=== PATIENT | female | born 1960 | race Caucasian/White ===

== ENCOUNTER → 2017-11-05 | Outpatient (CLI) | payer OTHER ==
[~2017-11-05] MED LIST: ABILIFY10 MG PO; ALLOPURINOL300 MG PO; AMBIEN10 MG PO; AZITHROMYCIN250 MG PO; CEFDINIR300 MG PO; CHANTIX0.5 MG PO; CRESTOR20 MG PO; GABAPENTIN300 MG PO; KLONOPIN1 MG PO; LEVAQUIN500 MG PO; LEVEMIR100 UNIT/1 SQ; LIDODERM700 MG TOP; LISINOPRIL5 MG PO; METFORMIN HCL1000 MG PO; METOPROLOL SUCC25 MG PO; NORCO 10MG-325MG1 EA PO; NOVOLOG MI100 UNIT/1; OMEPRAZOLE40 MG PO; PLAVIX75 MG PO; PROAIR HFA INH8.5 GM INH; PROZAC40 MG PO; SEROQUEL100 MG PO; SINGULAIR10 MG PO; SOMA350 MG PO; TRADJENTA5 MG PO; WELLBUTRIN100 MG PO; XANAX XR2 MG PO; ZANAFLEX4 MG PO; ZOFRAN ODT4 MG PO; ZOLOFT100 MG PO; invokana PO
--- NOTE | 2017-11-07 09:00 | Diagnostic Imaging Report ---
MRI of the right shoulder without contrast. History: Shoulder pain. Fall. Decreased range of motion. Pain not responding to conservative management. Comparison: Radiographs 08/18/2017 Technique: Coronal PD FS, sagital PD FS, and axial PD and PD FS. Findings: Rotator cuff: There is rotator cuff tendinosis with mid substance and articular sided partial tearing involving the anterior fibers of the supraspinatus and infraspinatus tendons at the humeral insertion site. This is best seen on sagittal series 5 image 5 and coronal series 3 image 12 through 14. Additionally, there is subscapularis tendinosis. The teres minor tendon is intact. There is mild supraspinatus and infraspinatus muscle atrophy. There are reactive changes in the superior humerus. Osseous acromion complex: There is a type II acromion with mild lateral downsloping. There is moderate degenerative arthrosis at the acromioclavicular joint with undersurface spurring and narrowing of the supraspinatus tendon outlet. There is mild subacromial/subdeltoid bursitis. Glenohumeral joint: There is degeneration and fraying of the labrum. The articular cartilage surfaces are intact. The humeral head is well-seated in the glenoid fossa. There is an effusion/synovitis in the rotator interval and subcoracoid space. Biceps tendon: There is intra-articular biceps tendinosis with fraying at the biceps anchor. Other findings: Negative for muscle denervation or osseous fracture. Impression: Rotator cuff tendinosis with mid substance and articular sided partial tearing involving the anterior fibers of the supraspinatus and infraspinatus tendons at the humeral insertion site. Moderate degenerative arthrosis at the acromioclavicular joint with undersurface spurring and narrowing of the supraspinatus tendon outlet. There is mild subacromial/subdeltoid bursitis. Signed by: Dr. Luca Escalona M.D. on 11/07/2017 8:57 AM
== END ==
LOC: MRI 13:17
PROVIDERS: ATTEND Family Medicine
DX: M25.511 Pain in right shoulder (principal)

== ENCOUNTER 2017-11-06 12:14 | Emergency (ER) | payer OTHER ==
[~2017-11-06] VITALS: Ht 162.6 cm; Wt 84.4 kg
--- NOTE | 2017-11-06 13:26 | Diagnostic Imaging Report ---
History: Fall, pain, dizziness. Comparison studies:CT head 09/29/17 Technique: Axial images were obtained from the brain and cervical spine. Coronal and sagittal images reconstructed from the axial data. Intravenous contrast: None Findings: Head CT: Scalp/skull: No abnormalities. No fractures, blastic or lytic lesions. Brain sulci: Appropriate for age. Ventricles: Normal in size and configuration. No hydrocephalus. Extra-axial spaces: Right frontal arachnoid cyst abutting the superior frontal gyrus. No fluid collections. Parenchyma: No abnormal densities. No masses, hemorrhage, acute or chronic cortical vascular insults. Sellar/suprasellar region: No abnormalities. Craniocervical junction: Patent foramen magnum. No Chiari one malformation. Cervical spine CT: Fractures: None. Soft tissues: No gross abnormalities. Atlantoaxial articulation: Intact. Alignment: Straightening of the normal lordosis. No scoliosis. Cervicomedullary junction: No abnormalities. Patent foramen magnum. Vertebrae: No infection or neoplasm. Degenerative changes: Mild disc degeneration at C6-7. Patent canal and foramina. Incidental findings: None. Impression: Head CT: 1. No acute abnormality. Cervical spine CT: 1. No acute abnormalities. 2. Cannot exclude ligament, spinal cord and or vascular abnormalities on the basis of this examination. Signed by: DR Anmol Clinton M.D. on 11/06/2017 1:23 PM
--- NOTE | 2017-11-06 17:34 | Diagnostic Imaging Report ---
Left SHOULDER LEFT COMPLETE - 2 views HISTORY: Pain. Fall COMPARISON: None available. FINDINGS: Bones: No acute displaced fracture. Osseous alignment is within normal limits. Joints: The joint spaces are well-maintained. Questionable joint effusion. Soft tissues: The soft tissues appear unremarkable. IMPRESSION: No acute radiographic abnormality. Questionable joint effusion. Signed by: Dr. Raymon Reeder M.D. on 11/06/2017 5:30 PM
== END 2017-11-06 18:28 | disposition home or self-care (01) ==
LOC: ER 12:21
DX: M54.2 Cervicalgia (principal); S16.1XXA Strain of muscle, fascia and tendon at neck level, initial encounter; S40.012A Contusion of left shoulder, initial encounter; W01.0XXA Fall on same level from slipping, tripping and stumbling without subsequent striking against object, initial encounter; Y92.008 Other place in unspecified non-institutional (private) residence as the place of occurrence of the external cause
CPT/HCPCS: 70450; 72125; 99284

== ENCOUNTER 2018-02-03 10:36 | Observation (INO) | payer OTHER ==
[~2018-02-03] VITALS: Ht 162.6 cm; Wt 94.8 kg
--- OUTSIDE RECORDS SUMMARY | 2018-02-03 10:39 | XMS REPORT ---
Author Author [facility] Address Unknown Phone Unavailable Care Team Providers Care Refrigeration Insulator Name Role Phone WALE HALE Unavailable Unavailable CORRIE DEVRIES Unavailable Unavailable MARYLU VALDOVINOS Unavailable Unavailable BOUCHERLOLA Sesay Unavailable Unavailable ZOMPA, EDROBINSON Unavailable Unavailable Problems This patient has no known problems. Allergies, Adverse Reactions, Alerts This patient has no known allergies or adverse reactions. Medications This patient has no known medications. Results Test Description Test Time Test Comments Text Results Atomic Results Result Comments SHOULDER LEFT COMPLETE [facility] [address] [address] Patient Name: STEPHANIE CAMERON MR #: [id number] : 1960 Age/Sex: 57/F Req #: [id number] Adm Physician: Ordered by: DIMITRI MCFARLAND Report #: [id number] Location: ER Room/Bed: _ Procedure: [id number] DX/SHOULDER LEFT COMPLETE Exam Date: 11/06/17 Exam Time: 1640 REPORT STATUS: Signed Left SHOULDER LEFT COMPLETE - 2 views HISTORY: Pain. Fall COMPARISON: None available. FINDINGS: Bones: No acute displaced fracture. Osseous alignment is within normal limits. Joints: The joint spaces are well-maintained. Questionable joint effusion. Soft tissues: The soft tissues appear unremarkable. IMPRESSION: No acute radiographic abnormality. Questionable joint effusion. Signed by: Dr. Raymon Miranda M.D. on 11/06/2017 5:30 PM Dictated By: RAYMON MIRANDA MD 29 Transcribed By: SCOTT on 11/06/171729 COPY TO: DIMITRI MCFARLAND CT CERVICAL SPINE WO [place] [address] Patient Name: STEPHANIE CAMERON MR #: [id number] : 1960 Age/Sex: 57/F Req #: [id number] Adm Physician: Ordered by: WALE HALE MD Report #: [id number] Location: ER Room/Bed: Procedure: [id number] CT/CT CERVICAL SPINE WO Exam Date: 11/06/17 Exam Time: 1240 REPORT STATUS: Signed History: Fall, pain, dizziness. Comparison studies:CT head 09/29/17 Technique: Axial images were obtained from the brain and cervical spine. Coronal and sagittal images reconstructed from the axial data. Intravenous contrast: None Findings: Head CT: Scalp/skull: No abnormalities. No fractures, blastic or lytic lesions. Brain sulci: Appropriate for age. Ventricles: Normal in size and configuration. No hydrocephalus. Extra-axial spaces: Right frontal arachnoid cyst abutting the superior frontal gyrus. No fluid collections. Parenchyma: No abnormal densities. No masses, hemorrhage , acute or chronic cortical vascular insults. Sellar/suprasellar region: No abnormalities. Craniocervical junction: Patent foramen magnum. No Chiari one malformation. Cervical spine CT: Fractures: None. Soft tissues: No gross abnormalities. Atlantoaxial articulation: Intact. Alignment: Straightening of the normal lordosis. No scoliosis. Cervicomedullary junction : No abnormalities. Patent foramen magnum. Vertebrae: No infection or neoplasm. Degenerative changes: Mild disc degeneration at C6-7. Patent canal and foramina. Incidental findings: None. Impression: Head CT: 1. No acute abnormality. Cervical spine CT: 1. No acute abnormalities. 2. Cannot exclude ligament, spinal cord and or vascular abnormalities on the basis of this examination. Signed by: DR Anmol Clinton M.D. on 11/06/2017 1:23 PM Dictated By: ANMOL GARZA MD 1323 Transcribed By: SCOTT on 11/06/17 1323 COPY TO: WALE HALE MD CT BRAIN WO [place] [address] Patient Name: STEPHANIE CAMERON MR #: [id number] : 1960 Age/Sex: 57/F Req # : [id number] Adm Physician: Ordered by: WALE HALE MD Report #: [id number] Location: ER Room/Bed: Procedure: [id number] CT/CT BRAIN WO Exam Date: 11/06/17 Exam Time: 1240 REPORT STATUS: Signed History: Fall, pain, dizziness. Comparison studies:CT head 09/29/17 Technique: Axial images were obtained from the brain and cervical spine. Coronal and sagittal images reconstructed from the axial data. Intravenous contrast: None Findings: Head CT: Scalp/skull: No abnormalities. No fractures, blastic or lytic lesions. Brain sulci: Appropriate for age. Ventricles: Normal in size and configuration. No hydrocephalus. Extra-axial spaces: Right frontal arachnoid cyst abutting the superior frontal gyrus. No fluid collections. Parenchyma: No abnormal densities. No masses, hemorrhage , acute or chronic cortical vascular insults. Sellar/suprasellar region: No abnormalities. Craniocervical junction: Patent foramen magnum. No Chiari one malformation. Cervical spine CT: Fractures: None. Soft tissues: No gross abnormalities. Atlantoaxial articulation: Intact. Alignment: Straightening of the normal lordosis. No scoliosis. Cervicomedullary junction : No abnormalities. Patent foramen magnum. Vertebrae: No infection or neoplasm. Degenerative changes: Mild disc degeneration at C6-7. Patent canal and foramina. Incidental findings: None. Impression: Head CT: 1. No acute abnormality. Cervical spine CT: 1. No acute abnormalities. 2. Cannot exclude ligament, spinal cord and or vascular abnormalities on the basis of this examination. Signed by: DR Anmol Clinton M.D. on 11/06/2017 1:23 PM Dictated By: ANMOL GARZA MD 1323 Transcribed By: SCOTT on 11/06/17 1323 COPY TO: WALE HALE MD MRI SHOULDER RIGHT WO [place] [address] Patient Name: STEPHANIE CAMERON MR #: [id number] : 1960 Age/Sex: 57/F Req #: [id number] Adm Physician: Ordered by: CORRIE DEVRIES DO Report #: [id number] Location: MRI Room/Bed: Procedure: [id number] MRI/MRI SHOULDER RIGHT WO Exam Date: 11/05/17 Exam Time: 1335 REPORT STATUS: Signed MRI of the right shoulder without contrast. History: Shoulder pain. Fall. Decreased range of motion. Pain not responding to conservative management. Comparison: Radiographs 08/18/2017 Technique: Coronal PD FS, sagital PD FS , and axial PD and PD FS. Findings: Rotator cuff: There is rotator cuff tendinosis with mid substance and articular sided partial tearing involving the anterior fibers of the supraspinatus and infraspinatus tendons at the humeral insertion site. This is best seen on sagittal series 5 image 5 and coronal series 3 image 12 through 14. Additionally, there is subscapularis tendinosis. The teres minor tendon is intact. There is mild supraspinatus and infraspinatus muscle atrophy. There are reactive changes in the superior humerus. Osseous acromion complex: There is a type II acromion with mild lateral downsloping. There is moderate degenerative arthrosis at the acromioclavicular joint with undersurface spurring and narrowing of the supraspinatus tendon outlet. There is mild subacromial/subdeltoid bursitis. Glenohumeral joint: There is degeneration and fraying of the labrum. The articular cartilage surfaces are intact. The humeral head is well-seated in the glenoid fossa. There is an effusion/synovitis in the rotator interval and subcoracoid space. Biceps tendon: There is intra-articular biceps tendinosis with fraying at the biceps anchor. Other findings: Negative for muscle denervation or osseous fracture. Impression: Rotator cuff tendinosis with mid substance and articular sided partial tearing involving the anterior fibers of the supraspinatus and infraspinatus tendons at the humeral insertion site. Moderate degenerative arthrosis at the acromioclavicular joint with undersurface spurring and narrowing of the supraspinatus tendon outlet. There is mild subacromial/subdeltoid bursitis. Signed by: Dr. Maite Escalona M.D. on 11/07/2017 8:57 AM Dictated By: MAITE ESCALONA MD, MD 6 COPY TO: CORRIE DEVRIES DO CT BRAIN [place] [address] Patient Name: STEPHANIE CAMERON MR #: [id number] : 1960 Age/Sex: 57/F Req # : [id number] [facility] Physician: Ordered by: MARYLU VALDOVINOS MD Report # : [id number] Location: Room/Bed: Procedure: [id number] CT/CT BRAIN WO Exam Date: 09/29/17 Exam Time: 1999 REPORT STATUS: Signed EXAMINATION: Head CT without contrast. HISTORY:Altered mental status. COMPARISON:Multiple prior studies, most recent CT brain from 07/22/2017. TECHNIQUE: Multidetector axial images were obtained from the foramen magnum to the vertex without contrast. The images were reconstructed using brain and bone algorithms. Thin section brain images were reformatted into coronal and sagittal planes. Intravenous contrast: None IMAGE QUALITY: Acceptable. FINDINGS: Skull/scalp: Unchanged small right frontal scalp lipoma. Parenchyma: No abnormal density. No acute hemorrhage, mass or acute major vascular territorial infarct. Arteries: No density suggestive of thrombosis. Dural sinuses: No abnormal density suggestive of thrombosis. Ventricles: No hydrocephalus or displacement. Extra-axial spaces: Unchanged small right superior frontal and left middle frontal convexity arachnoid cyst with regional mass effect. Brain volume: Unchanged mild predominantly bilateral frontal cerebral volume loss. Craniocervical junction: No mass, Chiari malformation, or basilar invagination. Sella: No mass. Paranasal/mastoid sinuses: Imaged portions unremarkable. IMPRESSION: No acute intracranial abnormality. No change since CT brain from 07/22/2017. Signed by: Dr. Chioma Zeng M.D. on 09/29/2017 8:36 PM Dictated By: CHIOMA ZENG MD 35 Transcribed By: SCOTT on 09/29/172035 COPY TO: MARYLU VALDOVINOS MD CHEST SINGLE (PORTABLE) [place] [id number] [place] [address] Patient Name: STEPHANIE CAMERON MR #: [id number] : 1960 Age/Sex: 57/F Req #: [id number] Adm Physician: Ordered by: MARYLU VALDOVINOS MD Report #: [id number] Location: ER Room/Bed: ___ Procedure: [id number] DX/CHEST SINGLE (PORTABLE) Exam Date: 09/29/17 Exam Time: 1999 REPORT STATUS: Signed EXAM: CHEST SINGLE (PORTABLE), AP DATE: 09/29/2017 7:31 PM Time stamp on Exam: 7: 44 PM INDICATION: Altered mental status COMPARISON: 07/22/2017 FINDINGS : See impression. IMPRESSION: 1. Cardiomediastinal silhouette is normal. No infiltrates or nodules are seen. There is no pneumothorax or effusion. 2. Regional osseous structures are unremarkable. Signed by: Dr. Teo Easley DO on 09/29/2017 8:59 PM Dictated By: TEO EASLEY DO 58 Transcribed By : SCOTT on 09/29/172058 COPY TO: MARYLU VALDOVINOS MD CHEST 2 VIEWS [place] [address] Patient Name: STEPHANIE CAMERON MR #: [id number] : 1960 Age/Sex: 57/F Req # : [id number] Adm Physician: LOLA BOUCHER MD Ordered by: LOLA BOUCHER MD Report #: [id number] Location: MED/SURG3 Room/Bed: 296- Procedure: [id number] DX/CHEST 2 VIEWS Exam Date: 08/18/17 Exam Time: 1200 REPORT STATUS: Signed PROCEDURE: Frontal and lateral views of the chest. COMPARISON: 08/16/17. INDICATIONS: PNEUMONIA FINDINGS: Lines/tubes: None. Lungs: Well-inflated. No evidence of mass or infiltrate. Pulmonary vascular markings are normal. Pleura: There is no pleural effusion or pneumothorax. Heart and mediastinum: The heart and the mediastinum are normal. Bones: Unremarkable for age. IMPRESSION: No acute cardiopulmonary disease. Dictated by: Jono Mohan M.D. on 2016 at 12:28 Electronically approved by: Jono Mohan M.D. on 08/18 at 12:28 Dictated By: JONO MOHAN MD Transcribed By : OSCAR on 08/18/171227 COPY TO: LOLA BOUCHER MD [facility] RIGHT [place] [address] Patient Name: STEPHANIE CAMERON MR #: [id number] : 1960 Age/Sex: 57/F Req #: [id number] Adm Physician: LOLA BOUCHER MD Ordered by: LOLA BOUCHER MD Report #: [id number] Location: MED/SURG3 Room/Bed: 296 Procedure: [id number] DX/SHOULDER RIGHT COMPLETE Exam Date: 08/18/17 Exam Time: 1200 REPORT STATUS: Signed PROCEDURE: X-RAY RIGHT SHOULDER, COMPLETE COMPARISON: None. INDICATIONS: FALL, RIGHT SHOULDER PAIN FINDINGS: BONES: Normal mineralization. No acute fracture or dislocation. Joint spaces are within normal limits. SOFT TISSUES: Negative. OTHER: Visualized portion of the chest is normal.. CONCLUSION: No acute traumatic pathology. Dictated by: Jono Mohan M.D. on 2016 at 12:33 Electronically approved by: Jono Mohan M.D. on 08/18 at 12:33 Dictated By: JONO MOHAN MD 1233 Transcribed By : OSCAR on 08/18/17 1233 COPY TO: LOLA BOUCHER MD CHEST 2 VIEWS [place] [address] Patient Name: STEPHANIE CAMERON MR #: [id number] : 1960 Age/Sex: 57/F Req # : [id number] [facility] Physician: Ordered by: LUZ SALAS Report #: [id number] Location: ER Room/Bed: Procedure: [id number] DX/CHEST 2 VIEWS Exam Date: 08/16/17 Exam Time: 1545 REPORT STATUS: Signed PROCEDURE: Frontal and lateral views of the chest. COMPARISON: Chest x-ray 07/22/2017. INDICATIONS: SHORTNESS OF BREATH, COUGH, LEUKOCYTOSIS FINDINGS: Lines/tubes: None. Lungs: Lungs are well-inflated. Mild right basilar atelectasis. Questionable left infrahilar airspace opacity. Pleura: There is no pleural effusion or pneumothorax. Heart and mediastinum: The heart and the mediastinum are normal. Bones: No acute bony abnormality. IMPRESSION: 1. Right basilar atelectasis. 2. Questionable left infrahilar airspace opacity, concerning for pneumonia. Dictated by: Raymon Miranda M.D. on 08/16/2017 at 16:18 Electronically approved by: Raymon Miranda M.D. on 08/16/2017 at 16:18 Dictated By: RAYMON MIRANDA MD 17 Transcribed By: OSCAR on 08/16/171617 COPY TO: LUZ SALAS CT BRAIN WO [place] [address] Patient Name: STEPHANIE CAMERON MR #: [id number] : 1960 Age/Sex: 57/F Req # : [id number] Adm Physician: Ordered by: JACIEL BECKER MD Report #: [id number] Location: ER Room/Bed: Procedure: [id number] CT/CT BRAIN WO Exam Date: 07/22/17 Exam Time: 1842 REPORT STATUS: Signed EXAMINATION: Head CT without contrast. HISTORY:Dizziness, lightheaded and weakness. COMPARISON:CT brain from 02/14 and MRI brain from 02/21/2017. TECHNIQUE: Multidetector axial images were obtained from the foramen magnum to the vertex without contrast. The images were reconstructed using brain and bone algorithms. Thin section brain images were reformatted into coronal and sagittal planes. Intravenous contrast: None IMAGE QUALITY: Acceptable. FINDINGS: Skull/scalp: Unchanged small right frontal scalp lipoma. Parenchyma: No abnormal density. No acute hemorrhage, mass or acute major vascular territorial infarct. Arteries: No density suggestive of thrombosis. Dural sinuses: No abnormal density suggestive of thrombosis. Ventricles: No hydrocephalus or displacement. Extra-axial spaces: Unchanged small right superior frontal and left middle frontal convexity arachnoid cyst with regional mass effect. Brain volume: Normal for age. Craniocervical junction: No mass, Chiari malformation, or basilar invagination. Sella: No mass. Paranasal/mastoid sinuses: Mild partial opacification of the right mastoid tip. Incidental finding: Unchanged curvilinear hyperdensity along the posterior aspect of the posterior chamber of left globe may represent chronic vitreous hemorrhage. IMPRESSION: No acute intracranial abnormality. No change since MRI brain from 02/21/2017. Signed by: Dr. Chioma Zeng M.D. on 07/22/2017 7:50 PM Dictated By: CHIOMA ZENG MD 49 Transcribed By: SCOTT on 07/22/171949 COPY TO: JACIEL BECKER MD CHEST SINGLE (PORTABLE) [place] [address] Patient Name: STEPHANIE CAMERON MR #: [id number] : 1960 Age/Sex: 57/F Req #: [id number] Adm Physician: Ordered by: JACIEL BECKER MD Report #: [id number] Location: ER Room/Bed: Procedure: [id number] DX/CHEST SINGLE (PORTABLE) Exam Date: 07/22/17 Exam Time: 1848 REPORT STATUS: Signed EXAMINATION: CHEST SINGLE (PORTABLE) INDICATION: COMPARISON: Chest radiograph from 02/14/2017 FINDINGS: AP view TUBES and LINES: None. LUNGS: Lungs are well inflated. Lungs are clear. There is no evidence of pneumonia or pulmonary edema. PLEURA: No pleural effusion or pneumothorax. HEART AND MEDIASTINUM: The cardiomediastinal silhouette is unremarkable. BONES AND SOFT TISSUES: No acute osseous lesion. Soft tissues are unremarkable. UPPER ABDOMEN: No free air under the diaphragm. IMPRESSION: No acute thoracic abnormality. Signed by: Dr. Susie Zepeda M.D. on 07/22/2017 8:04 PM Dictated By: SUSIE ZEPEDA MD 03 Transcribed By: SCOTT on 07/22/172003 COPY TO: JACIEL BECKER MD
[2018-02-03] MEDS ORDERED: NALOXONE HCL INJ 0.4 MG/ML AMP ONE (10:58)
[2018-02-03] MEDS ORDERED: NALOXONE HCL INJ 0.4 MG/ML AMP IV ONE (11:00)
[2018-02-03 11:01] LABS: BASOPHILS # (AUTO) 0.1 (0.0-0.1); BASOPHILS % 0.6 % (0.0-1.0); EOSINOPHILS # (AUTO) 0.2 (0.0-0.4); EOSINOPHILS % 1.8 % (0.0-6.0); HEMATOCRIT 33.4 % (34.2-44.1); HEMOGLOBIN 10.1 g/dL (12.0-16.0); LYMPHOCYTES # (AUTO) 4.4 (1.0-3.2); LYMPHOCYTES % 34.4 % (18.0-39.1); MEAN CORPUSCULAR HGB CONC 30.2 g/dL (31-35); MEAN CORPUSCULAR VOLUME 82.7 fL (81-99); MONOCYTES # (AUTO) 0.7 (0.2-0.8); MONOCYTES % 5.2 % (4.4-11.3); NEUTROPHILS # (AUTO) 7.3 (2.1-6.9); NEUTROPHILS % 57.3 % (38.7-80.0); PLATELET COUNT 401 x10e3/uL (140-360); RED BLOOD COUNT 4.04 x10e6/uL (3.6-5.1); RED CELL DISTRIBUTION WIDTH 16.9 % (11.7-14.4)
[2018-02-03 11:10] LABS: INR 1.07; PROTHROMBIN TIME 13.1 seconds (11.9-14.5)
[2018-02-03 11:11] LABS: PARTIAL THROMBOPLASTIN TIME 31.1 seconds (23.8-35.5)
[2018-02-03 11:20] LABS: ALANINE AMINOTRANSFERASE 12 IU/L (0-55); ALBUMIN 3.3 g/dL (3.5-5.0); ALBUMIN/GLOBULIN RATIO 0.9 (0.8-2.0); ALKALINE PHOSPHATASE 143 IU/L (40-150); ANION GAP 11.1 mmol/L (8-16); BLOOD UREA NITROGEN 18 mg/dL (7-26); BUN/CREATININE RATIO 19 (6-25); CALCIUM 9.5 mg/dL (8.4-10.2); CARBON DIOXIDE 31 mmol/L (22-29); CHLORIDE 102 mmol/L (98-107); CREATINE KINASE 270 IU/L (29-168); CREATININE, SERUM 0.94 mg/dL (0.57-1.11); EST GLOMERULAR FILTRATION RATE > 60 ML/MIN (60-); MAGNESIUM 1.7 MG/DL (1.3-2.1); POTASSIUM 4.1 mmol/L (3.5-5.1); SODIUM 140 mmol/L (136-145)
[2018-02-03 11:25] LABS: GLUCOSE 52 mg/dL (74-118)
--- NOTE | 2018-02-03 11:37 | Diagnostic Imaging Report ---
PROCEDURE: A single AP view of the chest. COMPARISON: None. INDICATIONS: LOW BLOOD SUGAR FINDINGS: Lines/tubes: None. Lungs: The lungs are well inflated. Minimal right basal atelectatic changes. There is no evidence of pneumonia or pulmonary edema. Pleura: There is no pleural effusion or pneumothorax. Heart and mediastinum: The heart and the mediastinum are unremarkable. Bones: No acute bony abnormality. IMPRESSION: 1. Minimal right basal atelectatic changes. No consolidation or effusion. Henrry Mendoza M.D. Dictated by: Henrry Mendoza M.D. on 02/03/2018 at 11:37 Electronically approved by: Henrry Mendoza M.D. on 02/03/2018 at 11:37
[2018-02-03] MEDS ORDERED: ONDANSETRON HCL INJ 2 MG/ML VIAL IV PRN (13:15)
[2018-02-03] MEDS ORDERED: DEXTROSE 50% SYRINGE 50 ML IV PRN (13:15)
[2018-02-03] MEDS: SODIUM CHLORIDE 0.9% 1000ML 1,000 ML IV SCH ×2 (14:45→21:14)
[2018-02-03 15:00] VITALS: BP 139/77
[2018-02-03 15:20] VITALS: BP 148/78
[2018-02-03] MEDS: INSULIN REGULAR, HUMAN 100 UNIT/1 ML 3ML VIAL SQ SCH ×2 (16:30→22:00)
[2018-02-03 20:00] VITALS: BP 135/60
[2018-02-04] VITALS: BP 144/66
[2018-02-04 04:00] VITALS: BP 147/67
--- NOTE | 2018-02-04 06:47 | Diagnostic Imaging Report ---
EXAMINATION: CHEST SINGLE (PORTABLE) INDICATION: Weakness, follow-up. COMPARISON: 02/03/2018 FINDINGS: TUBES and LINES: None. LUNGS: Lungs are not well inflated. There are bibasilar atelectasis. There is no evidence of pneumonia or pulmonary edema. PLEURA: No pleural effusion or pneumothorax. HEART AND MEDIASTINUM: The cardiomediastinal silhouette is unremarkable. BONES AND SOFT TISSUES: No acute osseous lesion. Soft tissues are unremarkable. UPPER ABDOMEN: No free air under the diaphragm. IMPRESSION: No acute thoracic abnormality. Signed by: Dr. Candido Rodriguez M.D. on 02/04/2018 6:44 AM
[2018-02-04 07:21] LABS: BASOPHILS # (AUTO) 0.1 (0.0-0.1); BASOPHILS % 0.6 % (0.0-1.0); EOSINOPHILS # (AUTO) 0.2 (0.0-0.4); EOSINOPHILS % 1.8 % (0.0-6.0); HEMATOCRIT 32.4 % (34.2-44.1); HEMOGLOBIN 9.8 g/dL (12.0-16.0); LYMPHOCYTES # (AUTO) 2.7 (1.0-3.2); LYMPHOCYTES % 22.1 % (18.0-39.1); MEAN CORPUSCULAR HEMOGLOBIN 24.8 pg (28-32); MEAN CORPUSCULAR HGB CONC 30.2 g/dL (31-35); MONOCYTES # (AUTO) 0.6 (0.2-0.8); MONOCYTES % 4.8 % (4.4-11.3); NEUTROPHILS # (AUTO) 8.5 (2.1-6.9); NEUTROPHILS % 70.1 % (38.7-80.0); PLATELET COUNT 422 x10e3/uL (140-360); RED BLOOD COUNT 3.95 x10e6/uL (3.6-5.1); RED CELL DISTRIBUTION WIDTH 16.7 % (11.7-14.4)
[2018-02-04 07:51] LABS: ALANINE AMINOTRANSFERASE 11 IU/L (0-55); ALBUMIN 3.1 g/dL (3.5-5.0); ALBUMIN/GLOBULIN RATIO 0.9 (0.8-2.0); ALKALINE PHOSPHATASE 143 IU/L (40-150); ANION GAP 9.4 mmol/L (8-16); BLOOD UREA NITROGEN 14 mg/dL (7-26); BUN/CREATININE RATIO 19 (6-25); CALCIUM 9.3 mg/dL (8.4-10.2); CARBON DIOXIDE 30 mmol/L (22-29); CHLORIDE 102 mmol/L (98-107); CREATININE, SERUM 0.74 mg/dL (0.57-1.11); EST GLOMERULAR FILTRATION RATE > 60 ML/MIN (60-); GLUCOSE 245 mg/dL (74-118); POTASSIUM 4.4 mmol/L (3.5-5.1); SODIUM 137 mmol/L (136-145)
[2018-02-04 08:00] VITALS: BP 152/69
[2018-02-04] MEDS: SODIUM CHLORIDE 0.9% 1000ML 1,000 ML IV SCH (08:30)
[2018-02-04] MEDS: INSULIN REGULAR, HUMAN 100 UNIT/1 ML 3ML VIAL SQ SCH ×2 (09:07→13:59)
[2018-02-04] MEDS ORDERED: AZITHROMYCIN250 MG PO (13:37)
--- NOTE | 2018-02-04 14:24 | Discharge Summary ---
ADMITTING DIAGNOSES 1. Altered mentation. 2. Hypoglycemia. 3. Type-2 diabetes mellitus. 4. Tobacco abuse. 5. Chronic obstructive pulmonary disease. 6. Bipolar disorder. 7. Hypertensive heart disease. DISCHARGE DIAGNOSES 1. Altered mentation secondary to hypoglycemia, resolved. 2. Right-sided pneumonia. 3. Tobacco abuse. 4. Hypertensive heart disease. 5. Type-2 diabetes mellitus. HOSPITAL COURSE: This is a 57-year-old white woman who was initially admitted to [facility] with diagnosis of altered mentation. During this hospitalization, it was discovered her altered mentation was secondary to hypoglycemia. The patient's Levemir insulin was held during this hospitalization, and her hypoglycemia resolved. The patient was also diagnosed with right-sided pneumonia during this hospitalization. The patient is a heavy tobacco smoker, and she was counseled on tobacco sensation, but stated she was not interested in smoking cessation. The patient's hospitalization was unremarkable. The patient's condition on discharge was stable. DISCHARGE MEDICATIONS 1. Levemir insulin 30 units subcutaneous once a day. 2. Azithromycin orally for 5 days. 3. ProAir inhaler 2 puffs q.i.d. p.r.n. shortness of breath or wheezing. 4. Cameron 10 per 325 one q.i.d. p.r.n. pain. 5. Abilify 10 mg daily. 6. Allopurinol 300 mg daily. 7. Clonazepam 1 mg b.i.d. p.r.n. anxiety. 8. Clopidogrel 75 mg daily. 9. Fluoxetine 60 mg daily. 10. Gabapentin 300 mg daily. 11. Lidoderm 5% patch, 1 patch applied to affected area daily. 12. Metoprolol succinate 25 mg daily. 13. Singulair 10 mg daily. 14. Omeprazole 40 mg daily. 15. Seroquel 100 mg nightly. FOLLOWUP INSTRUCTIONS: The patient will be discharged back to her assisted living facility, namely [facility]. Tobacco cessation was highly recommended, but the patient states she is not interested in tobacco cessation. The patient was told to decrease her Levemir insulin from 32 units twice a day to 30 units once daily. The patient will follow up with her primary care physician, namely Dr. Dupree, within 1 to 2 weeks. LUIZA MOREAU MD Job#: [id number]
== END 2018-02-04 16:56 ==
LOC: ER 10:36 → EDBEDREQSVC 13:27 → IMCU 14:12
DX: E11.649 Type 2 diabetes mellitus with hypoglycemia without coma (principal); J18.9 Pneumonia, unspecified organism; Z79.4 Long term (current) use of insulin; G89.4 Chronic pain syndrome; F31.9 Bipolar disorder, unspecified; F17.210 Nicotine dependence, cigarettes, uncomplicated; J44.9 Chronic obstructive pulmonary disease, unspecified; I11.9 Hypertensive heart disease without heart failure; R55 Syncope and collapse
CPT/HCPCS: 36415 ×2; 71045 ×2; 80053 ×2; 82550; 82553; 82948 ×2; 83735; 84484; 85025 ×2; 85610; 85730; 93005 ×2; 99285; G0378 ×2; J2310; J7030 ×2

== ENCOUNTER 2018-02-11 21:03 | Emergency (ER) | payer OTHER ==
[~2018-02-11] VITALS: Ht 162.6 cm; Wt 94.8 kg
--- OUTSIDE RECORDS SUMMARY | 2018-02-11 21:06 | XMS REPORT | Continuity of Care Document ---
Author Author [facility] Organization [facility] Address [address] [place] [address] Phone Unavailable Care Team Providers Care Gin Clerk Name Role Phone CORRIE DEVRIES DO PCP Insurance Providers Guarantor Emile Cameron Address [address] [place] [address] [facility] [employer] Policy Number [id number] Subscriber's Name Emile Cameron Relationship 18 Self / Same As Patient Group Number [id number] Group Name UNEMPLOYED Effective Date 14 Advance Directives Directive Response Recorded Date/Time Does the patient have an advance directive? No 02/03/18 3:44pm If yes, [facility]? No 02/03/18 3:44pm If not on file with [facility] will patient provide a copy? No 02/03/18 3:44pm Do you have a Directive to Physician? No 02/03/18 2:07pm Do you have a Medical Power of Archivist? No 02/03/18 2:07pm Do you have an out of hospital Do Not Resuscitate Order? No 02/03/18 2:07pm Do you have any special needs we should be aware of? No 02/03/18 2:07pm Do you have a support person here with you today? Yes 02/03/18 2:07pm Did patient receive Notice of Privacy Practices? Yes 02/03/18 2:07pm Did patient receive patient rights and responsibilities? Yes 02/03/18 2:07pm Problems Medical Problem Onset Date Status Acute renal failure Unknown Azotemia Unknown Confusion Unknown Fall Unknown Acute Hyperkalemia Unknown Neck strain Unknown Acute Shoulder contusion Unknown Acute Medications Current Home Medications Medication Dose Units Route Directions Days Qty Instructions Start Date Acetaminophen/Hydrocodone Bitart ([place] 10MG-325MG*) 1 Ea Tab 1 Tab Oral Four Times Daily Albuterol Sulfate (Proair Hfa Inhaler*) 8.5 Gm Inh 108 Mcg Inhalation Daily Allopurinol 300 Mg Tablet 300 Mg Oral Daily 30 Tab Aripiprazole (Abilify) 10 Mg Tablet 10 Mg Oral Daily Azithromycin (Z-Curry) 250 Mg Tablet 250 Mg Oral Use As Directed 1 Udpkt Z-Pack Clonazepam (Klonopin) 1 Mg Tablet 1 Mg Oral Twice A Day as needed for Anxiety Clopidogrel Bisulfate (Plavix) 75 Mg Tablet 75 Mg Oral Daily 30 Tab Fluoxetine Hcl (Prozac) 40 Mg Capsule 60 Mg Oral Daily Gabapentin 300 Mg Capsule 300 Mg Oral Three Times A Day Insulin Detemir (Levemir) 100 Unit/1 Ml Vial 32 Units Sub-Q Twice A Day Lidocaine (Lidoderm) 700 Mg Adh..patch 1 Patch Topically Daily Metoprolol Succinate 25 Mg Tab.er.24h 25 Mg Oral Daily Montelukast Sodium (Singulair) 10 Mg Tablet 10 Mg Oral Daily Omeprazole 40 Mg Capsule.dr 40 Mg Oral Daily Quetiapine Fumarate (Seroquel) 100 Mg Tablet 100 Mg Oral Bedtime Past Home Medications Medication Directions Ordered Status Alprazolam (Xanax Xr) 2 Mg Tab.er.24h, 2 Mg Oral Three Times A Day Discontinued Azithromycin (Z-Curry) 250 Mg Tablet, 250 Mg Oral Use As Directed Discontinued Bupropion Hcl (Wellbutrin) 100 Mg Tablet, 100 Mg Oral Daily Discontinued Carisoprodol (Soma) 350 Mg Tablet, 350 Mg Oral Three Times A Day Discontinued Cefdinir (Omnicef) 300 Mg Capsule, 300 Mg Oral Twice A Day Discontinued Insuln Asp Prt/Insulin Aspart (Novolog Mix 70-30 Flexpen Syrn) 100 Unit/1 Ml Insuln.pen, Discontinued Invokana , 300 Mg Oral Daily Discontinued Levofloxacin (Levaquin) 500 Mg Tablet, 500 Mg Oral Daily Discontinued Linagliptin (Tradjenta) 5 Mg Tablet, 5 Mg Oral Daily Discontinued Lisinopril 5 Mg Tablet, 10 Mg Oral Daily Discontinued Metformin Hcl 1,000 Mg Tablet, 1000 Mg Oral Twice A Day Discontinued Ondansetron (Zofran Odt) 4 Mg Tab.rapdis, 4 Mg Oral Every 6 Hours Discontinued Rosuvastatin Calcium (Crestor) 20 Mg Tablet, 20 Mg Oral Daily Discontinued Sertraline Hcl (Zoloft) 100 Mg Tablet, 100 Mg Oral Daily Discontinued Tizanidine Hcl (Zanaflex) 4 Mg Tablet, 4 Mg Oral Every 8 Hours as needed for Prn Discontinued Varenicline Tartrate (Chantix) 0.5 Mg Tablet, 0.5 Mg Oral Twice A Day Discontinued Zolpidem Tartrate (Ambien) 10 Mg Tablet, 10 Mg Oral Bedtime as needed for Sleep Discontinued Social History Social History Problem Response Recorded Date/Time Onset Date Status Hx Psychiatric Problems Y - PTSD, OCD 02/03/2018 3:44pm Not Applicable Not Applicable Hx Eating Disorder No 02/03/2018 3:44pm Not Applicable Not Applicable Hx Substance Use Disorder No 02/03/2018 3:44pm Not Applicable Not Applicable Hx Depression No 02/03/2018 3:44pm Not Applicable Not Applicable Hx Alcohol Use No 02/03/2018 3:44pm Not Applicable Not Applicable Hx Substance Use Treatment No 02/03/2018 3:44pm Not Applicable Not Applicable Hx Physical Abuse No 02/03/2018 3:44pm Not Applicable Not Applicable Smoking Status Start Date Stop Date Current every day smoker Hospital Discharge Instructions No hospital discharge instruction information available. Plan of Care Discharge Date 02/04/18 4:56pm Disposition DISCHARED TO ASSTED LIVING Instructions/Education Provided Hypoglycemia Prescriptions See Medication Section Referrals PCP (Internal Medicine) Order Date: 1-2 Weeks Entered Date: 02/04/2018 1:39pm Additional Instructions/Education FOLLOW UP WITH DR. DEVRIES IN 2 WEEKS. Functional Status Query Response Date Recorded Assistive Devices None February 03, 2018 3:00pm Ambulation Ability Independent February 03, 2018 3:00pm Toileting Ability Independent February 03, 2018 3:00pm Allergies, Adverse Reactions, Alerts Allergen Type Severity Reaction Status Last Updated iodine Allergy Unknown Active 08/16/17 Iodinated Contrast- Oral and IV Dye Allergy Unknown Active 08/16/17 NSAIDS (Non-Steroidal Anti-Inflamma Allergy Unknown Active 08/16/17 Sulfa (Sulfonamide Antibiotics) Allergy Unknown Active 08/16/17 Aspirin Allergy Unknown Active 08/16/17 TOPICAL , IV IODINE Allergy Severe ANAPHALACTIC SHOCK Active 09/08/15 Immunizations No immunization information available. Vital Signs Acute Vital Signs Vital Response Date/Time Temperature (Fahrenheit) 98.8 degrees F (97.6 - 99.5) 02/04/2018 8:00am Pulse Pulse Rate (adult) 83 bpm (60 - 90) 02/04/2018 8:00am Respiratory Rate 20 bpm (12 - 24) 02/04/2018 8:00am Blood Pressure 152/69 mm Hg 02/04/2018 8:00am Height 5 ft 4 in 02/03/2018 10:47am Weight 209 lb 02/03/2018 3:21pm Body Mass Index 35.9 kg/m^2 02/04/2018 1:09am Results Laboratory Results Test Name Result Units Flags Reference Collection Date/Time Result Date/ Time Comments Ethyl Alcohol Level < 10.0 mg/dL 0.0-10.0 07/22/2017 6:10pm 07/22/2017 7:39pm Differential Total Cells Counted 100 08/16/2017 3:00pm 08/16/2017 5 :02pm Neutrophils % (Manual) 63 % 40-74 08/16/2017 3:00pm 08/16/2017 5:02pm Lymphocytes % (Manual) 32 % 19-48 08/16/2017 3:00pm 08/16/2017 5:02pm Monocytes % (Manual) 2 % L 3.4-9.0 08/16/2017 3:00pm 08/16/2017 5:02pm Eosinophils % (Manual) 2 % 0-7 08/16/2017 3:00pm 08/16/2017 5:02pm Basophils % (Manual) 1 % 0-1.5 08/16/2017 3:00pm 08/16/2017 5:02pm Platelet Estimate ADEQUATE 08/16/2017 3:00pm 08/16/2017 5:02pm Platelet Morphology Comment NORMAL 08/16/2017 3:00pm 08/16/2017 5: 02pm Red Cell Morphology Comment NORMAL 08/16/2017 3:00pm 08/16/2017 5: 02pm Urine Mucus MANY H RARE 08/16/2017 3:00pm 08/16/2017 4:04pm Lactic Acid Level 29.2 MG/DL H 4.5-19.8 08/16/2017 3:00pm 08/16/2017 4: 08pm Direct Bilirubin < 0.1 mg/dL 0.0-5.0 08/16/2017 3:00pm 08/16/2017 4: 20pm Urine Color YELLOW YELLOW 09/29/2017 10:20pm 09/29/2017 10:52pm Urine Clarity SL CLOUDY CLEAR 09/29/2017 10:20pm 09/29/2017 10:52pm Urine Specific [place] 1.020 1.010-1.025 09/29/2017 10:20pm 2016 10:52pm Urine pH 5 5 - 7 09/29/2017 10:20pm 09/29/2017 10:52pm Urine Leukocyte Esterase TRACE H NEGATIVE 09/29/2017 10:20pm 2016 10:52pm Urine Nitrite NEGATIVE NEGATIVE 09/29/2017 10:20pm 09/29/2017 10: 52pm Urine Protein 2+ H NEGATIVE 09/29/2017 10:20pm 09/29/2017 10:52pm Urine Glucose (UA) 3+ H NEGATIVE 09/29/2017 10:20pm 09/29/2017 10: 52pm Urine Ketones TRACE H NEGATIVE 09/29/2017 10:20pm 09/29/2017 10:52pm Urine Opiates Screen POSITIVE H NEGATIVE 09/29/2017 10:20pm 2016 10:52pm This test provides only a screen. Positive results should be repeated by a confirmatory test. Urine Barbiturates Screen NEGATIVE NEGATIVE 09/29/2017 10:20pm 2016 10:52pm Urine Phencyclidine Screen NEGATIVE NEGATIVE 09/29/2017 10:20pm 09/29 10:52pm Urine Amphetamines Screen NEGATIVE NEGATIVE 09/29/2017 10:20pm 2016 10:52pm Urine Benzodiazepines Screen NEGATIVE NEGATIVE 09/29/2017 10:20pm 10:52pm Urine Cocaine Screen NEGATIVE NEGATIVE 09/29/2017 10:20pm 09/29/2017 10:52pm Urine Cannabinoids Screen NEGATIVE NEGATIVE 09/29/2017 10:20pm 2016 10:52pm THESE RESULTS ARE FOR MEDICAL TREATMENT ONLY *THIS REPORT CONTAINS UNCONFIRMED SCREENING RESULTS* POSITIVE RESULTS WILL BE CONFIRMED BY REFERENCE LAB UPON REQUEST CUT-OFF DRUG CLASS CONCENTRATION ng/mL Amphetamines 1000 Methamphetamines 1000 Cocaine 300 Opiate 300 Phencyclidine 25 Cannabinoid 50 Barbiturates 300 Benzodiazepine 300 Methadone 300 Urine Urobilinogen 0.2 mg/dL 0.2 - 1 09/29/2017 10:20pm 09/29/2017 10: 52pm Urine Bilirubin 1+ H NEGATIVE 09/29/2017 10:20pm 09/29/2017 10:52pm Urine Blood 2+ H NEGATIVE 09/29/2017 10:20pm 09/29/2017 10:52pm Urine WBC 6-10 /HPF H 0-5 09/29/2017 10:20pm 09/29/2017 11:01pm Urine RBC 6-10 /HPF H 0-5 09/29/2017 10:20pm 09/29/2017 11:01pm Urine Bacteria FEW /HPF NONE 09/29/2017 10:20pm 09/29/2017 11:01pm Urine Epithelial Cells RARE /LPF NONE 09/29/2017 10:20pm 09/29/2017 11: 01pm Urine Amorphous Sediment MODERATE H FEW 09/29/2017 10:20pm 09/29/2017 11:01pm Urine Yeast MODERATE H NONE 09/29/2017 10:20pm 09/29/2017 11:01pm Urine Eosinophils NONE SEEN NONE SEEN 09/30/2017 11:47am 09/30/2017 1 :27pm Urine Random Total Protein 23.9 mg/dL H 1-14 09/30/2017 11:47am 2016 12:29pm Urine Random Sodium 72 mmol/L 09/30/2017 11:47am 09/30/2017 12:29pm Urine Creatinine 39.29 mg/dL L 47-110 09/30/2017 11:47am 09/30/2017 12: 29pm Hemoglobin A1c Percent 7.9 % H 4.0-7.0 09/30/2017 8:30am 09/30/2017 2: 47pm Phosphorus Level 3.3 MG/DL 2.3-4.7 10/03/2017 6:45am 10/03/2017 7:33am Free Thyroxine 0.83 ng/dL 0.8-1.8 09/30/2017 8:30am 09/30/2017 4:41pm Thyroid Stimulating Hormone (TSH) 0.184 uIU/mL L 0.350-4.940 09/30/2017 8 :30am 09/30/2017 4:41pm White Blood Count 12.06 x10e3/uL H 4.8-10.8 02/04/2018 6:452017 7:34am Red Blood Count 3.95 x10e6/uL 3.6-5.1 02/04/2018 6:4502/04/2018 7: 34am Hemoglobin 9.8 g/dL L 12.0-16.0 02/04/2018 6:4502/04/2018 7:34am Hematocrit 32.4 % L 34.2-44.1 02/04/2018 6:4502/04/2018 7:34am Mean Corpuscular Volume 82.0 fL 81-99 02/04/2018 6:4502/04/2018 7: 34am Mean Corpuscular Hemoglobin 24.8 pg L 28-32 02/04/2018 6:452017 7:34am Mean Corpuscular Hemoglobin Concent 30.2 g/dL L 31-35 02/04/2018 6:4502/04/2018 7:34am Red Cell Distribution Width 16.7 % H 11.7-14.4 02/04/2018 6:452017 7:34am Platelet Count 422 x10e3/uL H 140-360 02/04/2018 6:4502/04/2018 7: 34am Neutrophils (%) (Auto) 70.1 % 38.7-80.0 02/04/2018 6:4502/04/2018 7: 34am Lymphocytes (%) (Auto) 22.1 % 18.0-39.1 02/04/2018 6:4502/04/2018 7: 34am Monocytes (%) (Auto) 4.8 % 4.4-11.3 02/04/2018 6:4502/04/2018 7: 34am Eosinophils (%) (Auto) 1.8 % 0.0-6.0 02/04/2018 6:4502/04/2018 7: 34am Basophils (%) (Auto) 0.6 % 0.0-1.0 02/04/2018 6:4502/04/2018 7:34am IM GRANULOCYTES % 0.6 % 0.0-1.0 02/04/2018 6:4502/04/2018 7:34am Neutrophils # (Auto) 8.5 H 2.1-6.9 02/04/2018 6:4502/04/2018 7: 34am Lymphocytes # (Auto) 2.7 1.0-3.2 02/04/2018 6:4502/04/2018 7:34am Monocytes # (Auto) 0.6 0.2-0.8 02/04/2018 6:4502/04/2018 7:34am Eosinophils # (Auto) 0.2 0.0-0.4 02/04/2018 6:4502/04/2018 7:34am Basophils # (Auto) 0.1 0.0-0.1 02/04/2018 6:4502/04/2018 7:34am Absolute Immature Granulocyte (auto 0.07 x10e3/uL 0-0.1 02/04/2018 6: 4502/04/2018 7:34am Prothrombin Time 13.1 seconds 11.9-14.5 02/03/2018 10:39am 02/03/2018 11:12am Prothromb Time International Ratio 1.07 02/03/2018 10:392017 11:12am Oral Anticoagulant Therapy INR Values: 1. Low Intensity Therapy 1.5 - 2.0 2. Moderate Intensity Therapy 2.0 - 3.0 3. High Intensity Therapy(1) 2.5 - 3.5 4. High Intensity Therapy(2) 3.0 - 4.0 5. Panic Value INR > 5.0 Activated Partial Thromboplast Time 31.1 seconds 23.8-35.5 02/03/2018 10 :39am 02/03/2018 11:12am Sodium Level 137 mmol/L 136-145 02/04/2018 6:4502/04/2018 7:54am Potassium Level 4.4 mmol/L 3.5-5.1 02/04/2018 6:45am 02/04/2018 7:54am Chloride Level 102 mmol/L 98-107 02/04/2018 6:45am 02/04/2018 7:54am Carbon Dioxide Level 30 mmol/L H 22-29 02/04/2018 6:45am 02/04/2018 7: 54am Anion Gap 9.4 mmol/L 8-16 02/04/2018 6:45am 02/04/2018 7:54am Blood Urea Nitrogen 14 mg/dL 7-02/04/2018 6:45am 02/04/2018 7:54am Creatinine 0.74 mg/dL 0.57-1.11 02/04/2018 6:45am 02/04/2018 7:54am BUN/Creatinine Ratio 19 6-02/04/2018 6:45am 02/04/2018 7:54am Estimat Glomerular Filtration Rate > 60 ML/MIN 60- 02/04/2018 6:45am 7:54am Ranges were taken from the National Kidney Disease Education Program and the National Kidney Foundation literature. Reference ranges: 60 or greater: Normal 16-59 (for 3 consecutive months): Chronic kidney disease 15 or less: Kidney failure Glucose Level 245 mg/dL H 74-118 02/04/2018 6:45am 02/04/2018 7:54am Calcium Level 9.3 mg/dL 8.4-10.2 02/04/2018 6:45am 02/04/2018 7:54am Bedside Glucose 168 mg/dL H 70-120 02/04/2018 11:30am 02/04/2018 12: 05pm Meter ID: [id number] Magnesium Level 1.7 MG/DL 1.3-2.1 02/03/2018 10:39am 02/03/2018 11: 25am Total Bilirubin 0.3 mg/dL 0.2-1.2 02/04/2018 6:45am 02/04/2018 7:54am Aspartate Amino Transf (AST/SGOT) 9 IU/L 5-34 02/04/2018 6:45am 2017 7:54am Alanine Aminotransferase (ALT/SGPT) 11 IU/L 0-55 02/04/2018 6:45am 04/2018 7:54am Total Protein 6.6 g/dL 6.5-8.1 02/04/2018 6:45am 02/04/2018 7:54am Albumin 3.1 g/dL L 3.5-5.0 02/04/2018 6:45am 02/04/2018 7:54am Globulin 3.5 g/dL 2.3-3.5 02/04/2018 6:45am 02/04/2018 7:54am Albumin/Globulin Ratio 0.9 0.8-2.0 02/04/2018 6:45am 02/04/2018 7: 54am Alkaline Phosphatase 143 IU/L 40-150 02/04/2018 6:45am 02/04/2018 7: 54am Creatine Kinase 270 IU/L H 29-168 02/03/2018 10:39am 02/03/2018 11:25am Creatine Kinase MB 5.20 ng/mL H 0-5.0 02/03/2018 10:39am 02/03/2018 11: 36am Troponin I < 0.001 ng/mL 0-0.300 02/03/2018 10:39am 02/03/2018 11:36am Microbiology Results Procedure Source Organism/Result Collection Date/Time Result Date/Time Result Status Blood Culture Blood NO GROWTH AFTER 5 DAYS, FINAL REPORT 08/16/2017 3:00pm 08/21/2017 3:42pm Final Procedures Procedure Status Date Provider(s) Computed tomography of brain without radiopaque contrast Active 07/22/17 JACIEL BECKER MD X-ray of chest, two views Active 08/16/17 LUZ SALAS X-ray of chest, two views Active 08/18/17 LOLA BOUCHER MD Computed tomography of brain without radiopaque contrast Active 09/29/17 MARYLU VALDOVINOS MD MRI joint upr extrem w/o dye Active 11/05/17 CORRIE DEVRIES DO Computed tomography of cervical spine without contrast Active 11/06/17 WALE HALE MD Computed tomography of brain without radiopaque contrast Active 11/06/17 WALE HALE MD Encounters Encounter Location Arrival/Admit Date Discharge/Depart Date Attending Provider Discharged Inpatient (obs) [facility] 02/03/18 2:12pm 05/17 4:56pm LOLA BOUCHER MD Departed Emergency Room [facility] 11/06/17 12:21pm 11/06 6:28pm WALE HALE MD Registered Clinic [facility] 11/05/17 1:17pm CORRIE DEVRIES DO Registered Referred [facility] 10/17/17 4:51am LOLA BOUCHER MD Discharged Inpatient [facility] 09/30/17 4:24am 10/03/17 4:54pm LOLA BOUCHER MD Discharged Inpatient [facility] 08/16/17 5:46pm 08/18/17 2:47pm LOLA BOUCHER MD Departed Emergency Room [facility] 07/22/17 5:49pm 9:50pm JACIEL BECKER MD
[2018-02-11 21:46] LABS: BASOPHILS # (AUTO) 0.1 (0.0-0.1); BASOPHILS % 0.5 % (0.0-1.0); EOSINOPHILS # (AUTO) 0.3 (0.0-0.4); EOSINOPHILS % 2.1 % (0.0-6.0); HEMATOCRIT 32.8 % (34.2-44.1); HEMOGLOBIN 9.8 g/dL (12.0-16.0); LYMPHOCYTES # (AUTO) 4.2 (1.0-3.2); LYMPHOCYTES % 27.6 % (18.0-39.1); MEAN CORPUSCULAR HEMOGLOBIN 24.8 pg (28-32); MEAN CORPUSCULAR HGB CONC 29.9 g/dL (31-35); MONOCYTES # (AUTO) 0.9 (0.2-0.8); NEUTROPHILS # (AUTO) 9.7 (2.1-6.9); NEUTROPHILS % 63.2 % (38.7-80.0); PLATELET COUNT 509 x10e3/uL (140-360); RED BLOOD COUNT 3.95 x10e6/uL (3.6-5.1); RED CELL DISTRIBUTION WIDTH 17.1 % (11.7-14.4)
[2018-02-11 22:11] LABS: ALBUMIN 3.1 g/dL (3.5-5.0); ALBUMIN/GLOBULIN RATIO 0.9 (0.8-2.0); ANION GAP 10.3 mmol/L (8-16); CREATININE, SERUM 1.1 mg/dL (0.57-1.11); POTASSIUM 4.3 mmol/L (3.5-5.1)
[2018-02-11 23:41] VITALS: BP 107/59
== END 2018-02-12 00:05 | disposition home or self-care (01) ==
LOC: ER 21:03
DX: E11.649 Type 2 diabetes mellitus with hypoglycemia without coma (principal); J44.9 Chronic obstructive pulmonary disease, unspecified; F17.200 Nicotine dependence, unspecified, uncomplicated; E87.1 Hypo-osmolality and hyponatremia; F41.8 Other specified anxiety disorders; K21.9 Gastro-esophageal reflux disease without esophagitis; F43.10 Post-traumatic stress disorder, unspecified; M54.9 Dorsalgia, unspecified; G89.29 Other chronic pain; Z79.4 Long term (current) use of insulin
CPT/HCPCS: 36415; 80053; 82948; 85025; 99284

== ENCOUNTER 2018-04-06 15:44 | Emergency (ER) | payer OTHER, MEDICARE ==
[~2018-04-06] VITALS: Ht 162.6 cm; Wt 94.8 kg
--- OUTSIDE RECORDS SUMMARY | 2018-04-06 15:47 | XMS REPORT | Continuity of Care Document ---
Author Author [facility] Organization [facility] Address [address] [place] [address] Phone Unavailable Care Team Providers Care Children'S Service Worker Name Role Phone CORRIE DEVRIES DO PCP Insurance Providers Guarantor Emile Cameron Address [address] [place] [address] Email PTDECLINED [facility] [employer] Policy Number [id number] Subscriber's Name YolandaPatriamilo Gage Relationship 18 Self / Same As Patient Group Number [id number] Group Name UNEMPLOYED Effective Date 14 Advance Directives Directive Response Recorded Date/Time Does the patient have an advance directive? No 02/03/18 3:44pm If yes, [facility] No 02/03/18 3:44pm If not on file with [facility] will patient provide a copy? No 02/03/18 3:44pm Do you have a Directive to Physician? No 02/11/18 9:02pm Do you have a Medical Power of Utilization Review Specialist? No 02/11/18 9:02pm Do you have an out of hospital Do Not Resuscitate Order? No 02/11/18 9:02pm Do you have any special needs we should be aware of? No 02/11/18 9:02pm Do you have a support person here with you today? No 02/11/18 9:02pm Did patient receive Notice of Privacy Practices? Yes 02/11/18 9:02pm Did patient receive patient rights and responsibilities? Yes 02/11/18 9:02pm Problems Medical Problem Onset Date Status Acute renal failure Unknown Azotemia Unknown Confusion Unknown Fall Unknown Acute Hyperkalemia Unknown Neck strain Unknown Acute Shoulder contusion Unknown Acute Medications Current Home Medications Medication Dose Units Route Directions Days Qty Instructions Start Date Acetaminophen/Hydrocodone Bitart ([place] 10MG-325MG*) 1 Ea Tab 1 Tab Oral [...] information available. Plan of Care Discharge Date 02/12/18 12:05am Disposition HOME, SELF-CARE Condition at Discharge Stable Instructions/Education Provided Hypoglycemia Forms Provided Work/School Excuse Prescriptions See Medication Section Referrals CORRIE DEVRIES DO Order Date: Call for an appointment Address: [address] [place] [id number] Additional Instructions/Education dc home follow up with pcp take meds as directed return to the er with any emergent conditons Functional Status No functional status information available. Allergies, Adverse Reactions, Alerts Allergen Type Severity [...] 99.5) 02/04/2018 8:00am Pulse Pulse Rate (adult) 85 bpm (60 - 90) 02/11/2018 11:41pm Respiratory Rate 16 bpm (12 - 24) 02/11/2018 11:41pm Blood Pressure 107/59 mm Hg 02/11/2018 11:41pm Height 5 ft 4 in 02/11/2018 9:15pm Weight 209 lb 02/11/2018 9:15pm Body Mass Index 35.9 kg/m^2 02/11/2018 9:15pm Results Laboratory Results Test Name Result Units [...] CLEAR 09/29/2017 10:20pm 09/29/2017 10:52pm Urine Specific [place] 1.020 1.010-1.025 09/29/2017 10:20pm 2016 10:52pm Urine [...] L 0.350-4.940 09/30/2017 8 :30am 09/30/2017 4:41pm Prothrombin Time 13.1 seconds 11.9-14.5 02/03/2018 10:39am 02/03/2018 11:12am Prothromb Time International Ratio 1.07 02/03/2018 10:39am 2017 11:12am Oral Anticoagulant Therapy INR Values: 1. Low Intensity Therapy 1.5 - 2.0 2. Moderate Intensity Therapy 2.0 - 3.0 3. High Intensity Therapy(1) 2.5 - 3.5 4. High Intensity Therapy(2) 3.0 - 4.0 5. Panic Value INR > 5.0 Activated Partial Thromboplast Time 31.1 seconds 23.8-35.5 02/03/2018 10 :39am 02/03/2018 11:12am Magnesium Level 1.7 MG/DL 1.3-2.1 02/03/2018 10:39am 02/03/2018 11: 25am Creatine Kinase 270 IU/L H 29-168 02/03/2018 10:39am 02/03/2018 11:25am Creatine Kinase MB 5.20 ng/mL H 0-5.0 02/03/2018 10:39am 02/03/2018 11: 36am Troponin I < 0.001 ng/mL 0-0.300 02/03/2018 10:39am 02/03/2018 11:36am White Blood Count 15.35 x10e3/uL H 4.8-10.8 02/11/2018 9:15pm 2017 9:55pm Red Blood Count 3.95 x10e6/uL 3.6-5.1 02/11/2018 9:15pm 02/11/2018 9: 55pm Hemoglobin 9.8 g/dL L 12.0-16.0 02/11/2018 9:15pm 02/11/2018 9:55pm Hematocrit 32.8 % L 34.2-44.1 02/11/2018 9:15pm 02/11/2018 9:55pm Mean Corpuscular Volume 83.0 fL 81-99 02/11/2018 9:15pm 02/11/2018 9: 55pm Mean Corpuscular Hemoglobin 24.8 pg L 28-32 02/11/2018 9:15pm 2017 9:55pm Mean Corpuscular Hemoglobin Concent 29.9 g/dL L 31-35 02/11/2018 9:15pm 02/11/2018 9:55pm Red Cell Distribution Width 17.1 % H 11.7-14.4 02/11/2018 9:15pm 2017 9:55pm Platelet Count 509 x10e3/uL H 140-360 02/11/2018 9:15pm 02/11/2018 9: 55pm Neutrophils (%) (Auto) 63.2 % 38.7-80.0 02/11/2018 9:15pm 02/11/2018 9: 55pm Lymphocytes (%) (Auto) 27.6 % 18.0-39.1 02/11/2018 9:15pm 02/11/2018 9: 55pm Monocytes (%) (Auto) 6.0 % 4.4-11.3 02/11/2018 9:1502/11/2018 9: 55pm Eosinophils (%) (Auto) 2.1 % 0.0-6.0 02/11/2018 9:15pm 02/11/2018 9: 55pm Basophils (%) (Auto) 0.5 % 0.0-1.0 02/11/2018 9:15pm 02/11/2018 9:55pm IM GRANULOCYTES % 0.6 % 0.0-1.0 02/11/2018 9:15pm 02/11/2018 9:55pm Neutrophils # (Auto) 9.7 H 2.1-6.9 02/11/2018 9:15pm 02/11/2018 9: 55pm Lymphocytes # (Auto) 4.2 H 1.0-3.2 02/11/2018 9:15pm 02/11/2018 9: 55pm Monocytes # (Auto) 0.9 H 0.2-0.8 02/11/2018 9:15pm 02/11/2018 9:55pm Eosinophils # (Auto) 0.3 0.0-0.4 02/11/2018 9:15pm 02/11/2018 9:55pm Basophils # (Auto) 0.1 0.0-0.1 02/11/2018 9:1502/11/2018 9:55pm Absolute Immature Granulocyte (auto 0.09 x10e3/uL 0-0.1 02/11/2018 9: 15pm 02/11/2018 9:55pm Sodium Level 134 mmol/L L 136-145 02/11/2018 9:15pm 02/11/2018 10:16pm Potassium Level 4.3 mmol/L 3.5-5.1 02/11/2018 9:15pm 02/11/2018 10: 16pm Chloride Level 100 mmol/L 98-107 02/11/2018 9:15pm 02/11/2018 10:16pm Carbon Dioxide Level 28 mmol/L 22-29 02/11/2018 9:15pm 02/11/2018 10: 16pm Anion Gap 10.3 mmol/L 8-16 02/11/2018 9:15pm 02/11/2018 10:16pm Blood Urea Nitrogen 12 mg/dL 7-02/11/2018 9:15pm 02/11/2018 10:16pm Creatinine 1.10 mg/dL 0.57-1.11 02/11/2018 9:15pm 02/11/2018 10:16pm BUN/Creatinine Ratio 11 6-25 02/11/2018 9:15pm 02/11/2018 10:16pm Estimat Glomerular Filtration Rate 52 ML/MIN L 60- 02/11/2018 9:15pm 10:16pm Ranges were taken from the National Kidney Disease Education Program and the National Kidney Foundation literature. Reference ranges: 60 or greater: Normal 16-59 (for 3 consecutive months): Chronic kidney disease 15 or less: Kidney failure Glucose Level 185 mg/dL H 74-118 02/11/2018 9:pm 02/11/2018 10:16pm Calcium Level 9.0 mg/dL 8.4-10.2 02/11/2018 9:02/11/2018 10:16pm Bedside Glucose 192 mg/dL H 70-120 02/11/2018 11:18pm 02/11/2018 11: 26pm Meter ID: [id number] Total Bilirubin 0.1 mg/dL L 0.2-1.2 02/11/2018 9:1502/11/2018 10: 16pm Aspartate Amino Transf (AST/SGOT) 8 IU/L 5-34 02/11/2018 9:152017 10:16pm Alanine Aminotransferase (ALT/SGPT) 10 IU/L 0-55 02/11/2018 9:15pm 10:16pm Total Protein 6.5 g/dL 6.5-8.1 02/11/2018 9:15pm 02/11/2018 10:16pm Albumin 3.1 g/dL L 3.5-5.0 02/11/2018 9:15pm 02/11/2018 10:16pm Globulin 3.4 g/dL 2.3-3.5 02/11/2018 9:15pm 02/11/2018 10:16pm Albumin/Globulin Ratio 0.9 0.8-2.0 02/11/2018 9:15pm 02/11/2018 10: 16pm Alkaline Phosphatase 165 IU/L H 40-150 02/11/2018 9:15pm 02/11/2018 10: 16pm Microbiology Results Procedure Source Organism/Result Collection Date/Time Result Date/Time Result Status Blood Culture Blood NO GROWTH AFTER 5 DAYS, FINAL REPORT 08/16/2017 3:00pm 08/21/2017 3:42pm Final Procedures Procedure Status Date Provider(s) Computed tomography of brain without radiopaque contrast Active 07/22/17 JACIEL BECKER MD X-ray of chest, two views Active 08/16/17 LUZ SAALS X-ray of chest, two views Active 08/18/17 [...] Location Arrival/Admit Date Discharge/Depart Date Attending Provider Departed Emergency Room [facility] 02/11/18 9:03pm 12:05am MARYLU VALDOVINOS MD Discharged Inpatient (obs) [facility] 02/03/18 2:12pm 05/17 4:56pm LOLA BOUCHER MD Departed Emergency Room [facility] 11/06/17 12:21pm 11/06 6:28pm WALE HALE MD Registered Clinic [facility] 11/05/17 1:17pm CORRIE DEVRIES DO Registered Referred [facility] 10/17/17 4:51am LOLA BOUCHER MD Discharged Inpatient [facility] 09/30/17 4:24am 10/03/17 4:54pm LOLA BOUCHER MD Discharged Inpatient [facility] 08/16/17 5:46pm 08/18/17 2:47pm LOLA BOUCHER MD Departed Emergency Room [facility] 07/22/17 5:49pm 9:50pm JACIEL BECKER MD
--- NOTE | 2018-04-06 16:57 | Diagnostic Imaging Report ---
PROCEDURE: A single AP view of the chest. COMPARISON: Patients [facility], , CHEST SINGLE (PORTABLE), 02/04/2018, 5:46. INDICATIONS: COUGH, FEVER. POSSIBLE SEIZURE FINDINGS: Lines/tubes: None. Lungs: The lungs are well inflated and grossly clear. There is no evidence of pneumonia or pulmonary edema. Pleura: There is no pleural effusion or pneumothorax. Heart and mediastinum: The heart and the mediastinum are unremarkable. Bones: No acute bony abnormality. IMPRESSION: 1. No acute cardiopulmonary abnormalities. Henrry Mendoza M.D. Dictated by: Henrry Mendoza M.D. on 04/06/2018 at 17:00 Electronically approved by: Henrry Mendoza M.D. on 04/06/2018 at 17:00
[2018-04-06 17:08] LABS: BILIRUBIN,URINE NEGATIVE (NEGATIVE); CLARITY,URINE SL CLOUDY (CLEAR); COLOR,URINE YELLOW (YELLOW); KETONES,URINE NEGATIVE (NEGATIVE); LEUKOCYTE ESTERASE ,URINE NEGATIVE (NEGATIVE); NITRITE,URINE NEGATIVE (NEGATIVE); PROTEIN,URINE DIPSTICK NEGATIVE (NEGATIVE); URINE UROBILINOGEN 0.2 mg/dL (0.2 - 1)
[2018-04-06 17:23] LABS: BACTERIA,URINE RARE /HPF; EPITHELIAL CELLS,URINE FEW /LPF; RBC,URINE 0-5 /HPF (0-5)
[2018-04-06 17:54] LABS: BASOPHILS # (AUTO) 0.1 (0.0-0.1); BASOPHILS % 0.5 % (0.0-1.0); EOSINOPHILS # (AUTO) 0.2 (0.0-0.4); EOSINOPHILS % 1.1 % (0.0-6.0); HEMATOCRIT 39.3 % (34.2-44.1); HEMOGLOBIN 11.8 g/dL (12.0-16.0); LYMPHOCYTES # (AUTO) 3.2 (1.0-3.2); LYMPHOCYTES % 22.3 % (18.0-39.1); MEAN CORPUSCULAR HEMOGLOBIN 24.1 pg (28-32); MEAN CORPUSCULAR VOLUME 80.2 fL (81-99); MONOCYTES # (AUTO) 0.8 (0.2-0.8); MONOCYTES % 5.3 % (4.4-11.3); NEUTROPHILS # (AUTO) 9.9 (2.1-6.9); NEUTROPHILS % 69.7 % (38.7-80.0); PLATELET COUNT 411 x10e3/uL (140-360); RED CELL DISTRIBUTION WIDTH 18.8 % (11.7-14.4)
[2018-04-06 18:08] LABS: ALANINE AMINOTRANSFERASE 10 IU/L (0-55); ALBUMIN 3.8 g/dL (3.5-5.0); ALKALINE PHOSPHATASE 148 IU/L (40-150); ANION GAP 13.6 mmol/L (8-16); BLOOD UREA NITROGEN 20 mg/dL (7-26); BUN/CREATININE RATIO 24 (6-25); CARBON DIOXIDE 27 mmol/L (22-29); CHLORIDE 101 mmol/L (98-107); CREATINE KINASE 79 IU/L (29-168); CREATININE, SERUM 0.84 mg/dL (0.57-1.11); EST GLOMERULAR FILTRATION RATE > 60 ML/MIN (60-); GLUCOSE 118 mg/dL (74-118); POTASSIUM 4.6 mmol/L (3.5-5.1); SODIUM 137 mmol/L (136-145)
[2018-04-06] MEDS ORDERED: CEFTRIAXONE SOD 1 GM VIAL IV ONE (19:20)
[2018-04-06] MEDS ORDERED: CEFDINIR300 MG PO (19:22)
[2018-04-06] MEDS ORDERED: TYLENOL WITH C1 EAC1 PO (19:22)
[2018-04-06 19:24] VITALS: BP 131/65
== END 2018-04-06 20:05 | disposition home or self-care (01) ==
LOC: ER 15:48
DX: R55 Syncope and collapse (principal); R51 Headache; N30.90 Cystitis, unspecified without hematuria; I10 Essential (primary) hypertension; E11.9 Type 2 diabetes mellitus without complications; F31.9 Bipolar disorder, unspecified; F17.210 Nicotine dependence, cigarettes, uncomplicated
CPT/HCPCS: 36415; 71045; 80053; 81001; 82550; 82553; 82948; 84484; 85025; 93005; 99284; J0696

== ENCOUNTER 2018-04-06 20:24 | Emergency (ER) | payer MEDICARE, OTHER ==
[~2018-04-06] VITALS: Ht 162.6 cm; Wt 94.8 kg
[~2018-04-06 20:24] MED LIST changes: +TYLENOL WITH C1 EAC1 PO
--- OUTSIDE RECORDS SUMMARY | 2018-04-06 20:27 | XMS REPORT | Continuity of Care Document ---
Author Author [facility] Organization [facility] Address [address] [place] [address] Phone Unavailable Care Team Providers Care Heel Caser Name Role Phone CORRIE DEVRIES DO PCP Insurance Providers Guarantor Emile Cameron Address [facility] [place] [address] Email PTDECLINED [facility] Policy Number [id number] Subscriber's Name Emile Cameron Relationship 18 Self / Same As Patient Group Number [id number] Group Name UNEMPLOYED Effective Date 14 [facility] Policy Number [id number] Subscriber's Name Emile Cameron Relationship 18 Self / Same As Patient Advance Directives Directive Response Recorded Date/Time Does the patient have an advance directive? No 02/03/18 3:44pm If yes, [facility] No 02/03/18 3:44pm If not on file with [facility] will patient provide a copy? No 02/03/18 3:44pm Do you have a Directive to Physician? No 04/06/18 5:40pm Do you have a Medical Power of Rn Quality? No 04/06/18 5:40pm Do you have an out of hospital Do Not Resuscitate Order? No 04/06/18 5:40pm Do you have any special needs we should be aware of? No 04/06/18 5:40pm Do you have a support person here with you today? No 04/06/18 5:40pm Did patient receive Notice of Privacy Practices? Yes 04/06/18 5:40pm Did patient receive patient rights and responsibilities? Yes 04/06/18 5:40pm Problems Medical Problem Onset Date Status Acute renal failure Unknown Azotemia Unknown Confusion Unknown Fall Unknown Acute Hyperkalemia Unknown Neck strain Unknown Acute Shoulder contusion Unknown Acute Medications Current Home Medications Medication Dose Units Route Directions Days Qty Instructions Start Date Acetaminophen With Codeine (Tylenol With Codeine #4 Tablet) 1 Each Tablet 1-2 Tab Oral Every 6 Hours as needed for Pain Acetaminophen/Hydrocodone Bitart ([place] 10MG-325MG*) 1 Ea Tab 1 Tab Oral Four Times Daily Albuterol Sulfate (Proair Hfa Inhaler*) 8.5 Gm Inh 108 Mcg Inhalation Daily Allopurinol 300 Mg Tablet 300 Mg Oral Daily 30 Tab Aripiprazole (Abilify) 10 Mg Tablet 10 Mg Oral Daily Azithromycin (Z-Curry) 250 Mg Tablet 250 Mg Oral Use As Directed 1 Udpkt Z-Pack Cefdinir (Omnicef) 300 Mg Capsule 300 Mg Oral Twice A Day Clonazepam (Klonopin) 1 Mg Tablet 1 Mg [...] information available. Plan of Care Discharge Date 04/06/18 8:05pm Disposition HOME, SELF-CARE Condition at Discharge Stable Instructions/Education Provided Syncope Syncope Urinary Tract Infection - Women Prescriptions See Medication Section Referrals CORRIE DEVRIES DO Order Date: Call for an appointment Address: [address] [place] [id number] Note: follow-up with pcp-call for appointment Functional Status No functional status information available. Allergies, Adverse Reactions, Alerts Allergen Type Severity Reaction Status Last Updated Iodinated Contrast- Oral and IV Dye Allergy Unknown Active 04/06/18 NSAIDS (Non-Steroidal Anti-Inflamma Allergy Unknown Active 04/06/18 Sulfa (Sulfonamide Antibiotics) Allergy Unknown Active 04/06/18 Aspirin Allergy Unknown Active 04/06/18 TOPICAL , IV IODINE Allergy Severe ANAPHALACTIC SHOCK Active 09/08/15 Immunizations No immunization information available. Vital Signs Acute Vital Signs Vital Response Date/Time Temperature (Fahrenheit) 98.6 degrees F (97.6 - 99.5) 04/06/2018 7:24pm Pulse Pulse Rate (adult) 88 bpm (60 - 90) 04/06/2018 7:24pm Respiratory Rate 19 bpm (12 - 24) 04/06/2018 7:24pm Blood Pressure 131/65 mm Hg 04/06/2018 7:24pm Height 5 ft 4 in 04/06/2018 3:46pm Weight 209 lb 04/06/2018 3:46pm Body Mass Index 35.9 kg/m^2 04/06/2018 3:46pm Results Laboratory Results Test Name Result Units [...] 0.0-5.0 08/16/2017 3:00pm 08/16/2017 4: 20pm Urine Opiates Screen POSITIVE H NEGATIVE 09/29/2017 [...] Barbiturates 300 Benzodiazepine 300 Methadone 300 Urine Amorphous Sediment MODERATE H FEW 09/29/2017 [...] MG/DL 1.3-2.1 02/03/2018 10:39am 02/03/2018 11: 25am White Blood Count 14.22 x10e3/uL H 4.8-10.8 04/06/2018 5:45pm 2017 5:54pm Red Blood Count 4.90 x10e6/uL 3.6-5.1 04/06/2018 5:45pm 04/06/2018 5: 54pm Hemoglobin 11.8 g/dL L 12.0-16.0 04/06/2018 5:45pm 04/06/2018 5:54pm Hematocrit 39.3 % 34.2-44.1 04/06/2018 5:45pm 04/06/2018 5:54pm Mean Corpuscular Volume 80.2 fL L 81-99 04/06/2018 5:45pm 04/06/2018 5: 54pm Mean Corpuscular Hemoglobin 24.1 pg L 28-32 04/06/2018 5:45pm 2017 5:54pm Mean Corpuscular Hemoglobin Concent 30.0 g/dL L 31-35 04/06/2018 5:45pm 04/06/2018 5:54pm Red Cell Distribution Width 18.8 % H 11.7-14.4 04/06/2018 5:45pm 2017 5:54pm Platelet Count 411 x10e3/uL H 140-360 04/06/2018 5:45pm 04/06/2018 5: 54pm Neutrophils (%) (Auto) 69.7 % 38.7-80.0 04/06/2018 5:45pm 04/06/2018 5: 54pm Lymphocytes (%) (Auto) 22.3 % 18.0-39.1 04/06/2018 5:45pm 04/06/2018 5: 54pm Monocytes (%) (Auto) 5.3 % 4.4-11.3 04/06/2018 5:45pm 04/06/2018 5: 54pm Eosinophils (%) (Auto) 1.1 % 0.0-6.0 04/06/2018 5:45pm 04/06/2018 5: 54pm Basophils (%) (Auto) 0.5 % 0.0-1.0 04/06/2018 5:45pm 04/06/2018 5:54pm IM GRANULOCYTES % 1.1 % H 0.0-1.0 04/06/2018 5:45pm 04/06/2018 5:54pm Neutrophils # (Auto) 9.9 H 2.1-6.9 04/06/2018 5:45pm 04/06/2018 5: 54pm Lymphocytes # (Auto) 3.2 1.0-3.2 04/06/2018 5:45pm 04/06/2018 5:54pm Monocytes # (Auto) 0.8 0.2-0.8 04/06/2018 5:45pm 04/06/2018 5:54pm Eosinophils # (Auto) 0.2 0.0-0.4 04/06/2018 5:45pm 04/06/2018 5:54pm Basophils # (Auto) 0.1 0.0-0.1 04/06/2018 5:45pm 04/06/2018 5:54pm Absolute Immature Granulocyte (auto 0.16 x10e3/uL H 0-0.1 04/06/2018 5: 45pm 04/06/2018 5:54pm Urine Color YELLOW YELLOW 04/06/2018 4:55pm 04/06/2018 5:08pm Urine Clarity SL CLOUDY CLEAR 04/06/2018 4:55pm 04/06/2018 5:08pm Urine Specific [place] 1.005 L 1.010-1.025 04/06/2018 4:55pm 2017 5:08pm Urine pH 6 5 - 7 04/06/2018 4:55pm 04/06/2018 5:08pm Urine Leukocyte Esterase NEGATIVE NEGATIVE 04/06/2018 4:55pm 2017 5:08pm Urine Nitrite NEGATIVE NEGATIVE 04/06/2018 4:55pm 04/06/2018 5:08pm Urine Protein NEGATIVE NEGATIVE 04/06/2018 4:55pm 04/06/2018 5:08pm Urine Glucose (UA) NEGATIVE NEGATIVE 04/06/2018 4:55pm 04/06/2018 5: 08pm Urine Ketones NEGATIVE NEGATIVE 04/06/2018 4:55pm 04/06/2018 5:08pm Urine Urobilinogen 0.2 mg/dL 0.2 - 1 04/06/2018 4:55pm 04/06/2018 5: 08pm Urine Bilirubin NEGATIVE NEGATIVE 04/06/2018 4:55pm 04/06/2018 5: 08pm Urine Blood NEGATIVE NEGATIVE 04/06/2018 4:55pm 04/06/2018 5:08pm Urine WBC 6-10 /HPF H 0-5 04/06/2018 4:55pm 04/06/2018 5:23pm Urine RBC 0-5 /HPF 0-5 04/06/2018 4:55pm 04/06/2018 5:23pm Urine Bacteria RARE /HPF NONE 04/06/2018 4:55pm 04/06/2018 5:23pm Urine Epithelial Cells FEW /LPF NONE 04/06/2018 4:55pm 04/06/2018 5: 23pm Sodium Level 137 mmol/L 136-145 04/06/2018 5:45pm 04/06/2018 6:10pm Potassium Level 4.6 mmol/L 3.5-5.1 04/06/2018 5:45pm 04/06/2018 6:10pm Chloride Level 101 mmol/L 98-107 04/06/2018 5:45pm 04/06/2018 6:10pm Carbon Dioxide Level 27 mmol/L 22-29 04/06/2018 5:45pm 04/06/2018 6: 10pm Anion Gap 13.6 mmol/L 8-16 04/06/2018 5:45pm 04/06/2018 6:10pm Blood Urea Nitrogen 20 mg/dL 7-04/06/2018 5:45pm 04/06/2018 6:10pm Creatinine 0.84 mg/dL 0.57-1.11 04/06/2018 5:45pm 04/06/2018 6:10pm BUN/Creatinine Ratio 24 6-25 04/06/2018 5:45pm 04/06/2018 6:10pm Estimat Glomerular Filtration Rate > 60 ML/MIN 60- 04/06/2018 5:45pm 6:10pm Ranges were taken from the National Kidney Disease Education Program and the National Kid[employer] Foundation literature. Reference ranges: 60 or greater: Normal 16-59 (for 3 consecutive months): Chronic kidney disease 15 or less: Kidney failure Glucose Level 118 mg/dL 74-118 04/06/2018 5:45pm 04/06/2018 6:10pm Calcium Level 10.0 mg/dL 8.4-10.2 04/06/2018 5:45pm 04/06/2018 6:10pm Bedside Glucose 157 mg/dL H 70-120 04/06/2018 3:55pm 04/06/2018 4:04pm Meter ID: [id number] Total Bilirubin 0.2 mg/dL 0.2-1.2 04/06/2018 5:45pm 04/06/2018 6:10pm Aspartate Amino Transf (AST/SGOT) 13 IU/L 5-34 04/06/2018 5:45pm 2017 6:10pm Alanine Aminotransferase (ALT/SGPT) 10 IU/L 0-55 04/06/2018 5:45pm 04/2018 6:10pm Total Protein 7.7 g/dL 6.5-8.1 04/06/2018 5:45pm 04/06/2018 6:10pm Albumin 3.8 g/dL 3.5-5.0 04/06/2018 5:45pm 04/06/2018 6:10pm Globulin 3.9 g/dL H 2.3-3.5 04/06/2018 5:45pm 04/06/2018 6:10pm Albumin/Globulin Ratio 1.0 0.8-2.0 04/06/2018 5:45pm 04/06/2018 6: 10pm Alkaline Phosphatase 148 IU/L 40-150 04/06/2018 5:45pm 04/06/2018 6: 10pm Creatine Kinase 79 IU/L 29-168 04/06/2018 5:45pm 04/06/2018 6:10pm Creatine Kinase MB 1.60 ng/mL 0-5.0 04/06/2018 5:45pm 04/06/2018 6: 19pm Troponin I 0.003 ng/mL 0-0.300 04/06/2018 5:45pm 04/06/2018 6:19pm Microbiology Results Procedure Source Organism/Result Collection Date/Time [...] Discharge/Depart Date Attending Provider Departed Emergency Room [facility] 04/06/18 3:48pm 8:05pm MANUELITO FISH MD Departed Emergency Room [facility] 02/11/18 9:03pm 12:05am MARYLU VALDOVINOS MD Discharged Inpatient (obs) [facility] 02/03/18 2:12pm 05/17 4:56pm LOLA BOUCHER MD Departed Emergency Room [facility] 11/06/17 12:21pm 11/06 6:28pm WALE HALE MD Registered Clinic [facility] 11/05/17 1:17pm CORRIE DEVRIES DO Registered Referred [facility] 10/17/17 4:51am LOLA BOUCHER MD Discharged Inpatient [facility] 09/30/17 4:24am 10/03/17 4:54pm LOLA BOUCHER MD Discharged Inpatient [facility] 08/16/17 5:46pm 08/18/17 2:47pm LOLA BOUCHER MD Departed Emergency Room [facility] 07/22/17 5:49pm 9:50pm JACIEL BECKER MD
--- NOTE | 2018-04-06 21:41 | Diagnostic Imaging Report ---
Examination: CT head without contrast Clinical Indication: Fall. Head injury. Technique: Transaxial noncontrast images from the skull base through the vertex were obtained. Sagittal and coronal reformatted images were done. Comparison: Head CT performed November 06, 2017. Findings: Scalp: No abnormalities. Bones: Intact. No fractures. No blastic or lytic lesions. Brain sulci: Appropriate for patient's age. Ventricles: Normal in size and configuration. No hydrocephalus. Extra-axial space: No abnormalities. Parenchyma: No abnormal densities. No masses, hemorrhage, or acute or chronic cortical based vascular insults. Suprasellar region: No abnormalities. Craniocervical junction: The foramen magnum is patent. No Chiari one malformation. Impression: No new or acute intracranial abnormality. No change from prior head CT performed November 06, 2017. Signed by: Dr. Ofe Ledesma M.D. on 04/06/2018 9:37 PM
--- NOTE | 2018-04-06 21:42 | Diagnostic Imaging Report ---
Examination: CT CERVICAL SPINE WITHOUT CONTRAST HISTORY:Fall. Neck injury. COMPARISON:CT cervical spine performed November 06, 2017. TECHNIQUE: Multidetector helical axial images were obtained without contrast from the foramen magnum to T1. Coronal and sagittal reformatted images were done. Bone and soft tissue windows were evaluated. FINDINGS: Alignment:Normal alignment and lordosis. Vertebrae: Normal height and density. No acute fracture, infection or neoplasm. Disc space heights: Normal height. Caliber of spinal canal: Developmentally normal. Posterior fossa and craniocervical junction: Foramen magnum patent. No Chiari 1 malformation. Soft tissues: No abnormality. Degenerative changes: No disc bulge/ herniation or foraminal or canal stenosis. Additional findings: None. IMPRESSION: No new abnormalities. No change since November 06, 2017. Signed by: Dr. Ofe Ledesma M.D. on 04/06/2018 9:38 PM
[2018-04-06 22:32] VITALS: BP 134/69
== END 2018-04-06 23:06 | disposition home or self-care (01) ==
LOC: ER 20:24
DX: S00.83XA Contusion of other part of head, initial encounter (principal); W18.39XA Other fall on same level, initial encounter; Y92.238 Other place in hospital as the place of occurrence of the external cause; E11.9 Type 2 diabetes mellitus without complications; J44.9 Chronic obstructive pulmonary disease, unspecified; F31.9 Bipolar disorder, unspecified; F17.210 Nicotine dependence, cigarettes, uncomplicated
CPT/HCPCS: 36415; 70450; 72125; 82948; 99283

== ENCOUNTER 2018-04-14 21:51 | Emergency (ER) | payer MEDICARE, OTHER ==
[~2018-04-14] VITALS: Ht 162.6 cm; Wt 94.3 kg
== END 2018-04-14 22:31 | disposition home or self-care (01) ==
LOC: ER 22:17 → MERGE 22:17 → ER 22:31
DX: S00.03XA Contusion of scalp, initial encounter (principal); W22.8XXA Striking against or struck by other objects, initial encounter; Y93.89 Activity, other specified; Y92.019 Unspecified place in single-family (private) house as the place of occurrence of the external cause
CPT/HCPCS: 99282

== ENCOUNTER 2018-06-05 15:32 | Emergency (ER) | payer MEDICARE, OTHER ==
[~2018-06-05] VITALS: Ht 162.6 cm; Wt 102.5 kg
--- NOTE | 2018-06-05 17:42 | Diagnostic Imaging Report ---
Examination: CT head without contrast Clinical Indication: Dizziness. Technique: Transaxial noncontrast images from the skull base through the vertex were obtained. Sagittal and coronal reformatted images were done. Comparison: 04/06/2018. Findings: Scalp: No abnormalities. Bones: Intact. No fractures. No blastic or lytic lesions. Brain sulci: Appropriate for patient's age. Ventricles: Normal in size and configuration. No hydrocephalus. Extra-axial space: No abnormalities. Parenchyma: No abnormal densities. No masses, hemorrhage, or acute or chronic cortical based vascular insults. Suprasellar region: No abnormalities. Craniocervical junction: The foramen magnum is patent. No Chiari one malformation. Mild atherosclerotic changes of the carotid siphons. Partially visualized hyperdense material seen in the posterior aspect of the left eye globe, could be related to retinal detachment, stable Impression: No new or acute intracranial abnormality. Stable examination. . Signed by: DR Anmol Clinton M.D. on 06/05/2018 5:38 PM
[2018-06-05 17:44] LABS: BILIRUBIN,URINE NEGATIVE (NEGATIVE); CLARITY,URINE CLEAR (CLEAR); COLOR,URINE YELLOW (YELLOW); KETONES,URINE NEGATIVE (NEGATIVE); LEUKOCYTE ESTERASE ,URINE NEGATIVE (NEGATIVE); NITRITE,URINE NEGATIVE (NEGATIVE); PROTEIN,URINE DIPSTICK NEGATIVE (NEGATIVE); URINE UROBILINOGEN 0.2 mg/dL (0.2 - 1)
[2018-06-05 17:49] LABS: EPITHELIAL CELLS,URINE FEW /LPF; MUCUS,URINE FEW (RARE); RBC,URINE 0-5 /HPF (0-5); WBC,URINE (MAN) 0-5 /HPF (0-5)
--- NOTE | 2018-06-05 17:53 | Diagnostic Imaging Report ---
PROCEDURE: A single AP view of the chest. COMPARISON: 04/06/18 INDICATIONS: weakness, dizzy FINDINGS: Lines/tubes: None. Lungs: Limited by body habitus. Mild central vascular congestion. No definite focal consolidation. Pleura: There is no pleural effusion or pneumothorax. Heart and mediastinum: The heart and the mediastinum are unremarkable. Bones: No acute bony abnormality. IMPRESSION: Mild central vascular congestion. No definite focal consolidation. Dictated by: Vladimir Mai M.D. on 06/05/2018 at 17:59 Electronically approved by: Vladimir Mai M.D. on 06/05/2018 at 17:59
[2018-06-05 19:09] LABS: BASOPHILS # (AUTO) 0.1 (0.0-0.1); BASOPHILS % 0.5 % (0.0-1.0); EOSINOPHILS # (AUTO) 0.2 (0.0-0.4); EOSINOPHILS % 1.4 % (0.0-6.0); HEMATOCRIT 37.9 % (34.2-44.1); HEMOGLOBIN 11.5 g/dL (12.0-16.0); LYMPHOCYTES # (AUTO) 4.4 (1.0-3.2); LYMPHOCYTES % 28.6 % (18.0-39.1); MEAN CORPUSCULAR HGB CONC 30.3 g/dL (31-35); MEAN CORPUSCULAR VOLUME 82.4 fL (81-99); MONOCYTES # (AUTO) 0.7 (0.2-0.8); MONOCYTES % 4.7 % (4.4-11.3); NEUTROPHILS # (AUTO) 9.8 (2.1-6.9); NEUTROPHILS % 63.6 % (38.7-80.0); PLATELET COUNT 490 x10e3/uL (140-360); RED CELL DISTRIBUTION WIDTH 19.2 % (11.7-14.4)
[2018-06-05 19:18] LABS: INR 1.02; PROTHROMBIN TIME 12.6 seconds (11.9-14.5)
[2018-06-05 19:30] LABS: ALANINE AMINOTRANSFERASE 12 IU/L (0-55); ALBUMIN 3.7 g/dL (3.5-5.0); ALBUMIN/GLOBULIN RATIO 0.9 (0.8-2.0); ALKALINE PHOSPHATASE 190 IU/L (40-150); ANION GAP 16.5 mmol/L (8-16); BLOOD UREA NITROGEN 21 mg/dL (7-26); BUN/CREATININE RATIO 20 (6-25); CALCIUM 9.7 mg/dL (8.4-10.2); CARBON DIOXIDE 25 mmol/L (22-29); CHLORIDE 100 mmol/L (98-107); CREATINE KINASE 49 IU/L (29-168); CREATININE, SERUM 1.03 mg/dL (0.57-1.11); EST GLOMERULAR FILTRATION RATE 55 ML/MIN (60-); GLUCOSE 135 mg/dL (74-118); SODIUM 136 mmol/L (136-145)
[2018-06-05 19:31] LABS: POTASSIUM 5.5 mmol/L (3.5-5.1)
[2018-06-05] MEDS ORDERED: ONDANSETRON HCL INJ 2 MG/ML VIAL IV ONE (20:30)
== END 2018-06-05 21:08 | disposition home or self-care (01) ==
LOC: ER 15:32
DX: R42 Dizziness and giddiness (principal); R51 Headache; R53.1 Weakness; E11.9 Type 2 diabetes mellitus without complications; J45.909 Unspecified asthma, uncomplicated; D64.9 Anemia, unspecified; E78.5 Hyperlipidemia, unspecified; K21.9 Gastro-esophageal reflux disease without esophagitis; G89.29 Other chronic pain
CPT/HCPCS: 36415; 70450; 71045; 80053; 81001; 82270; 82550; 82553; 83880; 84132; 84484; 85025; 85610; 85730; 86850; 86900; 93005; 99284; J2405

== ENCOUNTER 2018-10-05 17:17 | Observation (INO) | payer MEDICARE, OTHER ==
[~2018-10-05] VITALS: Ht 162.6 cm; Wt 102.5 kg
--- OUTSIDE RECORDS SUMMARY | 2018-10-05 17:21 | XMS REPORT | Summary of Care ---
Author Author [facility] Organization [facility] Address Unknown Phone Unavailable Encounter MARIAH Hall(JOSE) [id number] Date(s): 11/16/17 - 11/17/17 [facility] [address] [place] [address]- Encounter Diagnosis Type 2 diabetes mellitus with hypoglycemia without coma (Final) - 11/22/17 Type 2 diabetes mellitus with diabetic polyneuropathy (Final) - half-way (current) use of insulin (Final) - Unspecified asthma, uncomplicated (Final) - Obesity, unspecified (Final) - Major depressive disorder, single episode, unspecified (Final) - Gastro-esophageal reflux disease without esophagitis (Final) - Insomnia, unspecified (Final) - Hypomagnesemia (Final) - Other watermaster (current) drug therapy (Final) - Discharge Disposition: Home or Self Care Attending Physician: Akash Garcia MD Admitting Physician: Akash Garcia MD Vital Signs 1 2 3 Most recent to oldest [Reference Range]: 162.56 cm (11/17/17 2:38 AM) 162.56 cm (11/16/17 6:48 PM) Height 98.4 DegF (11/17/17 11:29 AM) 98.6 DegF (11/17/17 8:03 AM) 98.1 DegF (11/17/17 4:00 AM) Temperature Oral [96.4-99.1 DegF] 130/60 mmHg (11/17/17 2:00 PM) 143/82 mmHg *HI* (11/17/17 1:00 PM) 125/58 mmHg (11/17/17 12:00 PM) Blood Pressure [90-140/60-90 mmHg] 14 BRMIN (11/17/17 2:00 PM) 27 BRMIN *HI* (11/17/17 1:00 PM) 20 BRMIN (11/17/17 12:00 PM) Respiratory Rate [14-20 BRMIN] 84 bpm (11/16/17 6:48 PM) Peripheral Pulse Rate [60-100 bpm] 99.5 kg (11/17/17 2:38 AM) 90.909 kg (11/16/17 6:48 PM) Weight 37.65 m2 (11/17/17 2:38 AM) 34.4 m2 (11/16/17 6:48 PM) Body Mass Index Problem List No data available for this section Allergies, Adverse Reactions, Alerts Substance Reaction Severity Status sulfa drugs Active aspirin Active iodine Active NSAIDs Active Medications Abilify 10 mg, Route: PO, Drug form: TAB, Daily, Dosing Weight 99.5, kg, Start date: 9:00:00 SKIDDER [employer]NER, Duration: 30 day, Stop date: 12/17/17 9:00:00 SK[employer]DER [employer]NER Start Date: 11/18/17 Stop Date: 11/17/17 Status: Canceled Abilify 10 mg oral tablet 10 mg=1 tab, PO, Daily, 0 Refill(s) Start Date: 11/16/17 Status: Ordered acetaminophen 650 mg, Route: PO, Drug form: TAB, ONCE, Dosing Weight 90.909, kg, Priority: STA T, Start date: 11/17/17 0:20:00 SKIDDER RUNNER, Stop date: 11/17/17 0:20:00 SKIDDER [employer]NER Start Date: 11/17/17 Stop Date: 11/17/17 Status: Completed acetaminophen 325 mg, 1 tab, Route: PO, Drug form: TAB, Q4H, Dosing Weight 90.909, kg, PRN Evy n Score 4-6, Start date: 11/16/17 21:40:00 SKIDDER [employer]NER, Duration: 30 day, Stop date: 21:39:00 SKIDDER [employer]NER Notes: Do not exceed 4 gm/day. (Same as: Tylenol) Start Date: 11/16/17 Stop Date: 11/17/17 Status: Discontinued acetaminophen-hydrocodone 325 mg-10 mg oral tablet 1 tab, Route: PO, Drug Form: TAB, Dosing Weight 99.5, kg, Q6H, PRN Pain Score 4- 6, Start date: 11/17/17 3:25:00 SKIDDER RUNNER, Duration: 30 day, Stop date: 12/17/17 3:24: 00 SKIDDER RUNNER Notes: Do not exceed 4gm/day of acetaminophen. (Same as: Willard 325/10) Start Date: 11/17/17 Stop Date: 11/17/17 Status: Discontinued acetaminophen-hydrocodone 325 mg-5 mg oral tablet 1 tab, PO, Q4H, PRN Pain Score 4-6, 0 Refill(s) Start Date: 11/17/17 Status: Ordered albuterol 0.083% inhalation solution 2.5 mg=3 mL, NEB, Daily, 0 Refill(s) Start Date: 11/16/17 Status: Ordered clonazePAM 1 mg oral tablet 1 mg=1 tab, PO, TID, PRN Anxiety, 0 Refill(s) Start Date: 11/16/17 Status: Ordered D10W 980.75 mL + sodium chloride 23.4% IV 77 mEq 980.75 mL, Rate: 100 ml/hr, Infuse over: 10 hr, Route: IV, Dosing Weight 90.909 kg, Total Volume: 1,000, Start date: 11/16/17 21:18:00 SKIDDER RUNNER, Duration: 30 day, St op date: 12/16/17 21:17:00 SKIDDER RUNNER, 2.06, m2 Start Date: 11/16/17 Stop Date: 11/16/17 Status: Deleted d50 syringe 50 mL, Route: IVP, Dosing Weight 90.909, kg, ONCE, STAT, Start date: 11/16/17 19 :14:00 SKIDDER RUNNER, Stop date: 11/16/17 19:14:00 SKIDDER RUNNER, 25 ml=12.5 gm Start Date: 11/16/17 Stop Date: 11/16/17 Status: Completed D5W 1/2NS 1,000 mL 1,000 mL, Rate: 100 ml/hr, Infuse over: 10 hr, Route: IV, Total Volume: 1,000, P riority: STAT, Start date: 11/16/17 18:52:00 SKIDDER RUNNER, Duration: 30 day, Stop date: 0 12/16/17 18:51:00 SKIDDER [employer]NER Start Date: 11/16/17 Stop Date: 11/16/17 Status: Discontinued Dextrose 10% in Water IV 1,000 mL 1,000 mL, Rate: 100 ml/hr, Infuse over: 10 hr, Route: IV, Dosing Weight 90.909 k g, Total Volume: 1,000, Start date: 11/16/17 22:00:00 SKIDDER RUNNER, Duration: 30 day, Sto p date: 12/16/17 21:59:00 SKIDDER RUNNER, 2.06, m2 Start Date: 11/16/17 Stop Date: 11/17/17 Status: Discontinued Dextrose 5% with 0.45% NaCl IV 1,000 mL 1,000 mL, Rate: 75 ml/hr, Infuse over: 13.3 hr, Route: IV, Dosing Weight 99.5 kg , Total Volume: 1,000, Start date: 11/17/17 1:23:00 SKIDDER RUNNER, Stop date: 12/17/17 1:2 2:00 SKIDDER RUNNER, 2.15, m2 Start Date: 11/17/17 Stop Date: 11/17/17 Status: Discontinued FLUoxetine 40 mg, 4 cap, Route: PO, Drug form: CAP, QPM, Dosing Weight 99.5, kg, Start date : 11/17/17 17:00:00 SKIDDER RUNNER, Duration: 30 day, Stop date: 12/16/17 17:00:00 SKIDDER RUNNER Notes: (Same as: Prozac) Start Date: 11/17/17 Stop Date: 11/17/17 Status: Discontinued FLUoxetine 40 mg oral capsule 40 mg=1 cap, PO, QPM, 0 Refill(s) Start Date: 11/16/17 Status: Ordered gabapentin 300 mg oral capsule 300 mg=1 cap, PO, TID, 0 Refill(s) Start Date: 11/16/17 Status: Ordered gabapentin 300 mg oral capsule 300 mg, 1 cap, Route: PO, Drug form: CAP, TID, Dosing Weight 99.5, kg, Start carlo e: 11/17/17 13:00:00 SKIDDER RUNNER, Duration: 30 day, Stop date: 12/17/17 9:00:00 SKIDDER RUNNER Notes: (Same as: Neurontin) Start Date: 11/17/17 Stop Date: 11/17/17 Status: Discontinued have RPh verify & bar-code pt own Abilify have RPh verify & bar-code pt own Abilify, reminder, Drug form: MISC, Route: MISC, QSHIFT, 11/17/17 16:00:00 SKIDDER RUNNER, Duration: 30 day, Stop date: 12/17/17 8:00:00 SKIDDER RUNNER Start Date: 11/17/17 Stop Date: 11/17/17 Status: Discontinued Humalog 100 units/mL 10 unit, SUB-Q, TID-Before Meals, 0 Refill(s) Start Date: 11/16/17 Stop Date: 11/17/17 Status: Discontinued Humalog 100 units/mL 5 unit, SUB-Q, TID-Before Meals, # 10 mL, 0 Refill(s), other Start Date: 11/17/17 Status: Ordered Levemir FlexTouch 100 units/mL subcutaneous solution 32 unit, SUB-Q, BID, 0 Refill(s) Start Date: 11/16/17 Stop Date: 11/17/17 Status: Discontinued Levemir FlexTouch 100 units/mL subcutaneous solution 16 unit, SUB-Q, BID, # 10 mL, 0 Refill(s), other Start Date: 11/17/17 Status: Ordered magnesium sulfate 2 gm, 50 mL, Route: IVPB, Drug form: INJ, ONCE, Dosing Weight 99.5, kg, Start da te: 11/17/17 12:44:00 SKIDDER RUNNER, Stop date: 11/17/17 12:44:00 SKIDDER RUNNER Notes: WASTE: F/P - Sink; E - Municipal Trash Bin Start Date: 11/17/17 Stop Date: 11/17/17 Status: Completed omeprazole 40 mg, Route: PO, Drug form: DRC, Daily, Dosing Weight 99.5, kg, Start date: 9:00:00 SKIDDER RUNNER, Duration: 30 day, Stop date: 12/17/17 9:00:00 SKIDDER RUNNER Start Date: 11/18/17 Stop Date: 11/17/17 Status: Deleted omeprazole 40 mg oral delayed release capsule 40 mg=1 cap, PO, Daily, 0 Refill(s) Start Date: 11/16/17 Status: Ordered ondansetron 4 mg, 2 mL, Route: IVP, Drug form: INJ, Q6H, Dosing Weight 90.909, kg, PRN Nause a & Vomiting, Start date: 11/16/17 21:40:00 SKIDDER RUNNER, Duration: 30 day, Stop date: 12/16/17 21:39:00 SKIDDER RUNNER Notes: (Same as: Luis) MEDICATION WASTE Product Size: 4 mgProduct Was anastasia: ___ mg Start Date: 11/16/17 Stop Date: 11/17/17 Status: Discontinued Plavix 75 mg, 1 tab, Route: PO, Drug form: TAB, Daily, Dosing Weight 99.5, kg, Start da te: 11/18/17 9:00:00 SKIDDER RUNNER, Duration: 30 day, Stop date: 12/17/17 9:00:00 SKIDDER RUNNER Notes: (Same As: Plavix) Start Date: 11/18/17 Stop Date: 11/17/17 Status: Canceled Plavix 75 mg oral tablet 75 mg=1 tab, PO, Daily, 0 Refill(s) Start Date: 11/16/17 Status: Ordered Protonix 40 mg, 1 tab, Route: PO, Drug form: ECTAB, Before Breakfast, Start date: 8 7:30:00 SKIDDER RUNNER, Duration: 30 day, Stop date: 12/17/17 7:30:00 SKIDDER RUNNER Notes: Tablet should not be chewed or crushed.(Same as: Protonix) Start Date: 11/18/17 Stop Date: 11/17/17 Status: Canceled Singulair 10 mg, 1 tab, Route: PO, Drug form: TAB, Daily, Dosing Weight 99.5, kg, Start da te: 11/18/17 9:00:00 SKIDDER RUNNER, Duration: 30 day, Stop date: 12/17/17 9:00:00 SKIDDER RUNNER Notes: (Same as:Singulair) Start Date: 11/18/17 Stop Date: 11/17/17 Status: Canceled Singulair 10 mg oral tablet 10 mg=1 tab, PO, Daily, 0 Refill(s) Start Date: 11/16/17 Status: Ordered Sodium Chloride 0.9% (Bolus) IV 2,000 mL, 2,000 ml/hr, Infuse Over: 1 hr, Route: IV, ONCE, Priority: STAT, Dosin g Weight 90.909 kg, Start date: 11/16/17 19:04:00 SKIDDER RUNNER, Stop date: 11/16/17 19:04 :00 SKIDDER RUNNER Start Date: 11/16/17 Stop Date: 11/16/17 Status: Completed trazodone 100 mg oral tablet 200 mg=2 tab, PO, Bedtime, PRN Insomnia, 0 Refill(s) Start Date: 11/16/17 Stop Date: 11/17/17 Status: Discontinued Results ELECTROLYTES Most recent to 1 2 oldest [Reference Range]: Sodium Lvl [135-145 137 mEq/L 140 mEq/L mEq/L] (11/17/17 3:54 AM) (11/16/17 7:08 PM) Potassium Lvl 4.4 mEq/L 3.8 mEq/L [3.5-5.1 mEq/L] (11/17/17 3:54 AM) (11/16/17 7:08 PM) Chloride Lvl [95-109 105 mEq/L 103 mEq/L mEq/L] (11/17/17 3:54 AM) (11/16/17 7:08 PM) CO2 [24-32 mEq/L] 26 mEq/L 28 mEq/L (11/17/17 3:54 AM) (11/16/17 7:08 PM) AGAP [10.0-20.0 10.4 mEq/L 12.8 mEq/L mEq/L] (11/17/17 3:54 AM) (11/16/17 7:08 PM) CHEM PANEL Most recent to 1 2 oldest [Reference Range]: Creatinine Lvl 0.72 mg/dL 1.05 mg/dL [0.50-1.40 mg/dL] (11/17/17 3:54 AM) (11/16/17 7:08 PM) eGFR 95 mL/min/1.73m2 1 60 mL/min/1.73m2 2 *NA* *NA* (11/17/17 3:54 AM) (11/16/17 7:08 PM) BUN [7-22 mg/dL] 14 mg/dL 14 mg/dL (11/17/17 3:54 AM) (11/16/17 7:08 PM) B/C Ratio [6-25] 19 13 (11/17/17 3:54 AM) (11/16/17 7:08 PM) Glucose Lvl [70-99 243 mg/dL 107 mg/dL mg/dL] *HI* *HI* (11/17/17 3:54 AM) (11/16/17 7:08 PM) Total Protein 5.5 g/dL 6.2 g/dL [6.4-8.4 g/dL] *LOW* *LOW* (11/17/17 3:54 AM) (11/16/17 7:08 PM) Albumin Lvl [3.5-5.0 2.5 g/dL 2.7 g/dL g/dL] *LOW* *LOW* (11/17/17 3:54 AM) (11/16/17 7:08 PM) Globulin [2.7-4.2 3.0 g/dL 3.5 g/dL g/dL] (11/17/17 3:54 AM) (11/16/17 7:08 PM) A/G Ratio [0.7-1.6] 0.8 0.8 (11/17/17 3:54 AM) (11/16/17 7:08 PM) Calcium Lvl 8.3 mg/dL 8.0 mg/dL [8.5-10.5 mg/dL] *LOW* *LOW* (11/17/17 3:54 AM) (11/16/17 7:08 PM) Magnesium Lvl 1.6 mg/dL [1.8-2.4 mg/dL] *LOW* (11/17/17 3:54 AM) ALT [0-65 unit/L] 8 unit/L 9 unit/L (11/17/17 3:54 AM) (11/16/17 7:08 PM) AST [0-37 unit/L] 7 unit/L 9 unit/L (11/17/17 3:54 AM) (11/16/17 7:08 PM) Alk Phos [39-136 122 unit/L 124 unit/L unit/L] (11/17/17 3:54 AM) (11/16/17 7:08 PM) Bili Total [0.2-1.3 0.3 mg/dL 0.2 mg/dL mg/dL] (11/17/17 3:54 AM) (11/16/17 7:08 PM) Lactic Acid Lvl 1.4 mMol/L 2.7 mMol/L [0.5-2.2 mMol/L] (11/17/17 3:54 AM) *HI* (11/16/17 7:19 PM) 1Result Comment: The eGFR is calculated using the CKD-EPI formula. In most young, healthy individuals the eGFR will be >90 mL/min/1.73m2. The eGFR declines with age. An eGFR of 60-89 may be normal in some populations, particularly the elderly, for whom the CKD-EPI formula has not been extensively validated. Use of the eGFR is not recommended in the following populations: Individuals with unstable creatinine concentrations, including patients and those with serious co-morbid conditions. Patients with extremes in muscle mass or diet. The data above are obtained from the National Kidney Disease Education Program ( NKDEP) which additionally recommends that when the eGFR is used in patients with extremes of body mass index for purposes of drug dosing, the eGFR should be mul tiplied by the estimated BMI. 2Result Comment: The eGFR is calculated using the CKD-EPI formula. In most young, healthy individuals the eGFR will be >90 mL/min/1.73m2. The eGFR declines with age. An eGFR of 60-89 may be normal in some populations, particularly the elderly, for whom the CKD-EPI formula has not been extensively validated. Use of the eGFR is not recommended in the following populations: Individuals with unstable creatinine concentrations, including patients and those with serious co-morbid conditions. Patients with extremes in muscle mass or diet. The data above are obtained from the National Kidney Disease Education Program ( NKDEP) which additionally recommends that when the eGFR is used in patients with extremes of body mass index for purposes of drug dosing, the eGFR should be mul tiplied by the estimated BMI. CARDIAC ENZYMES Most recent to 1 2 oldest [Reference Range]: Total CK [12-191 83 unit/L unit/L] (11/16/17 7:08 PM) CK MB [0.5-3.6 1.1 ng/mL ng/mL] (11/16/17 7:08 PM) CK MB Index 1.3 [0.0-2.5] (11/16/17 7:08 PM) Troponin-I <0.02 ng/mL [0.00-0.40 ng/mL] (11/16/17 7:08 PM) URINE AND STOOL Most recent to 1 2 oldest [Reference Range]: UA Turbidity [Clear] Slight *ABN* (11/16/17 11:20 PM) UA Color [Yellow] Yellow *NA* (11/16/17 11:20 PM) UA pH [5.0-8.0] 6.0 (11/16/17 11:20 PM) UA Spec Grav 1.006 [<=1.030] (11/16/17 11:20 PM) UA Glucose [Negative Negative mg/dL mg/dL] *NA* (11/16/17 11:20 PM) UA Blood [Negative] Negative (11/16/17 11:20 PM) UA Ketones [Negative Negative mg/dL mg/dL] *NA* (11/16/17 11:20 PM) UA Protein [Negative Negative mg/dL mg/dL] (11/16/17 11:20 PM) UA Urobilinogen <=1.0 mg/dL [0.1-1.0 mg/dL] *NA* (11/16/17 11:20 PM) UA Bili [Negative] Negative *NA* (11/16/17 11:20 PM) UA Leuk Est Moderate [Negative] *ABN* (11/16/17 11:20 PM) UA Nitrite Negative [Negative] (11/16/17 11:20 PM) UA WBC [0-5 /HPF] 16 /HPF *HI* (11/16/17 11:20 PM) UA RBC [0-2 /HPF] 4 /HPF *HI* (11/16/17 11:20 PM) UA Bacteria [None Occasional /HPF Seen /HPF] *NA* (11/16/17 11:20 PM) UA Sq Epi [Few /LPF] Occasional /LPF *NA* (11/16/17 11:20 PM) UA [place] Yeast [None Occasional /HPF Seen /HPF] *ABN* (11/16/17 11:20 PM) HEMATOLOGY Most recent to 1 2 oldest [Reference Range]: WBC [3.7-10.4 K/CMM] 10.6 K/CMM 10.3 K/CMM *HI* (11/16/17 7:08 PM) (11/17/17 3:54 AM) RBC [4.20-5.40 3.67 M/CMM 3.94 M/CMM M/CMM] *LOW* *LOW* (11/17/17 3:54 AM) (11/16/17 7:08 PM) Hgb [12.0-16.0 g/dL] 10.3 g/dL 11.3 g/dL *LOW* *LOW* (11/17/17 3:54 AM) (11/16/17 7:08 PM) Hct [36.0-48.0 %] 31.9 % 34.6 % *LOW* *LOW* (11/17/17 3:54 AM) (11/16/17 7:08 PM) MCV [80.0-98.0 fL] 86.9 fL 87.8 fL (11/17/17 3:54 AM) (11/16/17 7:08 PM) MCH [27.0-31.0 pg] 28.1 pg 28.7 pg (11/17/17 3:54 AM) (11/16/17 7:08 PM) MCHC [32.0-36.0 32.3 g/dL 32.7 g/dL g/dL] (11/17/17 3:54 AM) (11/16/17 7:08 PM) RDW [11.5-14.5 %] 16.0 % 15.9 % *HI* *HI* (11/17/17 3:54 AM) (11/16/17 7:08 PM) MPV [7.4-10.4 fL] 7.3 fL 7.3 fL *LOW* *LOW* (11/17/17 3:54 AM) (11/16/17 7:08 PM) Platelet [133-450 352 K/CMM 369 K/CMM K/CMM] (11/17/17 3:54 AM) (11/16/17 7:08 PM) Segs [45.0-75.0 %] 60.6 % 66.1 % (11/17/17 3:54 AM) (11/16/17 7:08 PM) Lymphocytes 32.3 % 25.7 % [20.0-40.0 %] (11/17/17 3:54 AM) (11/16/17 7:08 PM) Monocytes [2.0-12.0 5.3 % 6.6 % %] (11/17/17 3:54 AM) (11/16/17 7:08 PM) Eosinophils [0.0-4.0 1.0 % 0.9 % %] (11/17/17 3:54 AM) (11/16/17 7:08 PM) Basophils [0.0-1.0 0.8 % 0.7 % %] (11/17/17 3:54 AM) (11/16/17 7:08 PM) Segs-Bands # 6.4 K/CMM 6.8 K/CMM [1.5-8.1 K/CMM] (11/17/17 3:54 AM) (11/16/17 7:08 PM) Lymphocytes # 3.4 K/CMM 2.7 K/CMM [1.0-5.5 K/CMM] (11/17/17 3:54 AM) (11/16/17 7:08 PM) Monocytes # [0.0-0.8 0.6 K/CMM 0.7 K/CMM K/CMM] (11/17/17 3:54 AM) (11/16/17 7:08 PM) Eosinophils # 0.1 K/CMM 0.1 K/CMM [0.0-0.5 K/CMM] (11/17/17 3:54 AM) (11/16/17 7:08 PM) Basophils # [0.0-0.2 0.1 K/CMM 0.1 K/CMM K/CMM] (11/17/17 3:54 AM) (11/16/17 7:08 PM) PT [12.0-14.7 12.9 seconds seconds] (11/16/17 7:08 PM) INR [0.85-1.17] 0.97 (11/16/17 7:08 PM) PTT [22.9-35.8 32.6 seconds seconds] (11/16/17 7:08 PM) Immunizations No data available for this section Procedures Procedure Date Related Diagnosis Body Site Status Abdominal hysterectomy Completed Foot joint operations Completed Social History Social History Type Response Substance Abuse Use: None. Household substance abuse concerns: No. Alcohol Past, Type Beer. Last use: 35 years ago. Stopped age 22 Years. Previous treatment: None. Smoking Status Current every day smoker; Type: Cigarettes; Previous treatment: Medications; Previous treatment: Nicotine replacement; Ready to change: No; Concerns about tobacco use in household: No; Exposure to Tobacco Smoke None; Cigarette Smoking Last 365 Days Yes; Reg Smoking Cessation Counseling No; Tobacco use per day: 2; Started at age: 15.0; 1 entered on: 11/17/17 1pt smokes 2 packs per day, refuses to quit Assessment and Plan Extracted from: Title: Clinical Document Author: Akash Garcia MD Date: 11/17/17 Hospitalist discharge note [facility] Akash Garcia MD SUBJECTIVE: Patient seen and examined, events reviewed Patient is alert and oriented and states she is feeling much better right now OBJECTIVE: Vitals and Temp: VitalsTmp(F)[id number] 11/17 12:00----[id number]--- 11/17 11:2998.4 11/17 11:00----[id number]--- 11/17 10:00----[id number]------ 11/17 09:00----[id number]------ 24 Hr Tmax: 98.6F (37.00c) at 11/17 08:03Vital Signs are the last 5 in the past 48 hours. Input/Output RecordInOutBal 10/1823hr Tot 250 0 250 4hr Tot 2892 0 2892 Labs (Last four charted values) WBC H 10.6(NOV 17)10.3(NOV 16) Hgb L 10.3(NOV 17)L 11.3(NOV 16) Hct L 31.9(NOV 17)L 34.6(NOV 16) Plt 352(NOV 17)369(NOV 16) Na 137(NOV 17)140(NOV 16) K 4.4(NOV 17)3.8(NOV 16) CO2 26(NOV 17)28(NOV 16) Cl 105(NOV 17)103(NOV 16) Cr 0.72(NOV 17)1.05(NOV 16) BUN 14(NOV 17)14(NOV 16) Glucose Random H 243(NOV 17)H 107(NOV 16) Mg L 1.6(NOV 17) Ca L 8.3(NOV 17)L 8.0(NOV 16) PT 12.9(NOV 16) INR 0.97(NOV 16) PTT 32.6(NOV 16) Troponin <0.02(NOV 16) CK MB 1.1(NOV 16) Total CK 83(NOV 16) MEDICATIONS Scheduled Meds (6):ARIPiprazole (Abilify), FLUoxetine, clopidogrel (Plavix), gabapentin (gabapentin 300 mg oral capsule), montelukast (Singulair), omeprazole Unscheduled Meds: None PRN Meds (3):acetaminophen-hydrocodone (acetaminophen-hydrocodone 325 mg-10 mg oral tablet), acetaminophen, ondansetron One Time Meds (3):(Completed) Dextrose 50% in Water IV (d50 syringe), (Completed) Sodium Chloride 0.9% IV (Sodium Chloride 0.9% (Bolus) IV), (Completed) acetaminophen Continuous Infusions: None ASSESSMENT & EXAM: GENERAL: In no apparent distress at this time. HEENT: EOMI. NECK: Supple. No jugular venous distention or bruits. CARDIOVASCULAR: Regular rate and rhythm, S1, S2 positive. LUNGS: Clear to auscultation bilateral. GASTROINTESTINAL: Soft, nontender, nondistended, positive bowel sounds. EXTREMITIES: No clubbing, cyanosis or edema. NEUROLOGICAL: Intact. No gross deficits noted. SKIN: no rashes noted. DIAGNOSES & PROBLEMS: Severe hypoglycemia Altered mental status secondary to hypoglycemia Diabetes mellitus type 2 Depression Asthma Hypomagnesemia PLAN & TREATMENT/HOSPITAL COURSE: We will replace magnesium Patient is alert and oriented 3 now She feels better and blood sugar is much more stable She can discharge back to assisted living I have advised her on how to hold her insulin and decreased the dosages in half She agrees to this plan of care Discharge home today DISCHARGE NOTE: Condition: improved Activity: as tolerated Diet: 1800 kcal ada Follow up: pcp 1 week Medications: see d/c krystle MIX time: 35 min
--- OUTSIDE RECORDS SUMMARY | 2018-10-05 17:21 | XMS REPORT | Summary of Care ---
Author Author [facility] [place] Organization [facility] [place] Address Unknown Phone Unavailable Encounter HQ Encntr_alias(FIN) [id number] Date(s): 06/24/15 - 06/24/15 [facility] [place] [address] [place], [place] [address] [phone] Discharge Disposition: Home Attending Physician: Juan Snell MD Vital Signs No data available for this section Problem List No data available for this section Allergies, Adverse Reactions, Alerts No data available for this section Medications No data available for this section Results No data available for this section Immunizations No data available for this section Procedures No data available for this section Social History No data available for this section Assessment and Plan No data available for this section
--- OUTSIDE RECORDS SUMMARY | 2018-10-05 17:21 | XMS REPORT | Summary of Care ---
Author Author [facility] [place] Organization [facility] [place] Address Unknown Phone Unavailable Encounter HQ Encntr_alias(FIN) [id number] Date(s): 12/09/16 - 12/09/16 [facility] [place] [address] [place] [phone] Discharge Disposition: Home or Self Care Attending Physician: Carrington Kennedy MD Vital Signs No data available for [...]
--- OUTSIDE RECORDS SUMMARY | 2018-10-05 17:21 | XMS REPORT | Continuity of Care Document ---
Author Author [facility] Interface Address Unknown Phone Unavailable Problems Problem Status Onset Date Classification Date Reported Comments Source ACUTE UTI, SEPSIS Active 08/29/2018 [facility] SOB Active 08/29/2018 [facility] GALUCOMA Active 07/13/[facility] NEAR SYNCOPE, CHEST PAIN Active 06/11/2018 [facility] WEAKNESS Active 06/11/2018 [facility] Type 2 diabetes mellitus with hypoglycemia without coma 11/23/2017 02/23/2018 [facility] HYPOGLYCEMIA ASSOCIATED WITH DIABETES Active 11/16/2017 [facility] HYPOGLYCEMIA ASSOCIATED WITH DIABETES Active 11/16/2017 [facility] HYPOGLYCEMIA Active 11/16/2017 [facility] D47.3 - ESSENTIAL (HEMORRHAGIC) THROMB D Active 12/06/2016 [facility] [place] D72.829 - ELEVATED WHITE BLOOD CELL COUN [facility] [place] M54.5 - LOW BACK PAIN Active 12/22/2015 [facility] [place] Type 2 diabetes mellitus with diabetic polyneuropathy 02/23/2018 [facility] MCFP use of insulin 02/23/2018 [facility] Unspecified asthma, uncomplicated 02/23/2018 [facility] Obesity, unspecified 02/23/2018 [facility] Major depressive disorder, single episode, unspecified 02/23/2018 [facility] Gastro-esophageal reflux disease without esophagitis 02/23/2018 [facility] Insomnia, unspecified 02/23/2018 [facility] Hypomagnesemia 02/23/2018 [facility] Other canine deputy drug therapy 02/23/2018 [facility] TYPE 2 DIABETES MELLITUS WITH HYPOGLYCEM Active [facility] SYNCOPE AND COLLAPSE Active [facility] CHEST PAIN, UNSPECIFIED Active [facility] URINARY TRACT INFECTION, SITE NOT SPECIF Active [facility] SEPSIS, UNSPECIFIED ORGANISM Active [facility] Medications Medication Details Route Status Patient Instructions Ordering Provider Order Date Source Omeprazole 40 mg, Route: PO, Drug form: DRC, Daily, Dosing Weight 99.5, kg, Start date: 11/18/17 9:00:00 SHAKE SAWYER, Duration: 30 day, Stop date: 12/17/17 9:00:00 SHAKE SAWYER No Longer Active 11/18/2017 [facility] Singulair 10 mg, 1 tab, Route: PO, Drug form: TAB, Daily, Dosing Weight 99.5, kg, Start date: 11/18/17 9:00:00 SHAKE SAWYER, Duration: 30 day, Stop date: 12/17/17 9:00:00 CSTNotes: (Same as:Singulair) No Longer Active 11/18/2017 [facility] Abilify 10 mg, Route: PO, Drug form: TAB, Daily, Dosing Weight 99.5, kg, Start date: 11/18/17 9:00:00 SHAKE SAWYER, Duration: 30 day, Stop date: 12/17/17 9:00:00 SHAKE SAWYER No Longer Active 11/18/2017 [facility] Plavix 75 mg, 1 tab, Route: PO, Drug form: TAB, Daily, Dosing Weight 99.5, kg, Start date: 11/18/17 9:00:00 SHAKE SAWYER, Duration: 30 day, Stop date: 12/17/17 9:00:00 CSTNotes: (Same As: Plavix) No Longer Active 11/18/2017 [facility] Protonix 40 mg, 1 tab, Route: PO, Drug form: ECTAB, Before Breakfast, Start date: 11/18/17 7:30:00 SHAKE SAWYER, Duration: 30 day, Stop date: 12/17/17 7:30:00 CSTNotes: Tablet should not be chewed or crushed. (Same as: Protonix) No Longer Active 11/18/2017 [facility] Fluoxetine 40 mg, 4 cap, Route: PO, Drug form: CAP, QPM, Dosing Weight 99.5, kg, Start date: 11/17/17 17:00:00 SHAKE SAWYER, Duration: 30 day, Stop date: 12/16/17 17:00:00 CSTNotes: (Same as: Prozac) Inactive 11/17/2017 [facility] have [facility] verify & bar-code pt own Abilify have [facility] verify & bar-code pt own Abilify, reminder, Drug form: MISC, Route: MISC, QSHIFT, 11/17/17 16:00:00 SHAKE SAWYER, Duration: 30 day, Stop date: 12/17/17 8:00:00 SHAKE SAWYER Inactive 11/17/2017 [facility] gabapentin 300 MG Oral Capsule 300 mg, 1 cap, Route: PO, Drug form: CAP, TID, Dosing Weight 99.5, kg, Start date: 11/17/17 13:00:00 SHAKE SAWYER, Duration: 30 day, Stop date: 12/17/17 9:00:00 CSTNotes: (Same as: Neurontin) Inactive 11/17/2017 [facility] Magnesium Sulfate 2 gm, 50 mL, Route: IVPB, Drug form: INJ, ONCE, Dosing Weight 99.5, kg, Start date: 11/17/17 12:44:00 SHAKE SAWYER, Stop date: 11/17/17 12:44:00 CSTNotes: WASTE: F/P - Sink; E - Municipal Trash Bin Inactive 11/17/2017 [facility] Humalog 100 units/mL 5 unit, SUB-Q, TID-Before Meals, # 10 mL, 0 Refill(s), other Active 11/17/2017 [facility] 3 ML insulin detemir 100 UNT/ML Prefilled Syringe [Levemir] 16 unit, SUB-Q, BID, # 10 mL, 0 Refill(s), other Active 11/17/2017 [facility] Acetaminophen 325 MG / Hydrocodone Bitartrate 10 MG Oral Tablet 1 tab, Route: PO, Drug Form: TAB, Dosing Weight 99.5, kg, Q6H, PRN Pain Score 4-6, Start date: 11/17/17 3:25:00 SHAKE SAWYER, Duration: 30 day, Stop date: 12/17/17 3:24:00 CSTNotes: Do not exceed 4gm/day of acetaminophen. (Same as: Only 325/10) Inactive 11/17/2017 [facility] Acetaminophen 325 MG / Hydrocodone Bitartrate 5 MG Oral Tablet 1 tab, PO, Q4H, PRN Pain Score 4-6, 0 Refill(s) Active 11/17/2017 [facility] Dextrose 5% with 0.45% NaCl IV 1,000 mL 1,000 mL, Rate: 75 ml/hr, Infuse over: 13.3 hr, Route: IV, Dosing Weight 99.5 kg, Total Volume: 1,000, Start date: 11/17/17 1:23:00 SHAKE SAWYER, Stop date: 12/17/17 1:22:00 SHAKE SAWYER, 2.15, m2 Inactive 11/17/2017 [facility] Acetaminophen 650 mg, Route: PO, Drug form: TAB, ONCE, Dosing Weight 90.909, kg, Priority: STAT, Start date: 11/17/17 0:20:00 SHAKE SAWYER, Stop date: 11/17/17 0:20:00 SHAKE SAWYER Inactive 11/17/2017 [facility] Dextrose 10% in Water IV 1,000 mL 1,000 mL, Rate: 100 ml/hr, Infuse over: 10 hr, Route: IV, Dosing Weight 90.909 kg, Total Volume: 1,000, Start date: 11/16/17 22:00:00 SHAKE SAWYER, Duration: 30 day, Stop date: 12/16/17 21:59:00 SHAKE SAWYER, 2.06, m2 No Longer Active 11/17/2017 [facility] Ondansetron 4 mg, 2 mL, Route: IVP, Drug form: INJ, Q6H, Dosing Weight 90.909, kg, PRN Nausea & Vomiting, Start date: 11/16/17 21:40:00 SHAKE SAWYER, Duration: 30 day, Stop date: 12/16/17 21:39:00 CSTNotes: (Same as: Luis) MEDICATION WASTE Product Size: 4 mg Product Wasted: ___ mg No Longer Active 11/17/2017 [facility] Acetaminophen 325 mg, 1 tab, Route: PO, Drug form: TAB, Q4H, Dosing Weight 90.909, kg, PRN Pain Score 4-6, Start date: 11/16/17 21:40:00 SHAKE SAWYER, Duration: 30 day, Stop date: 12/16/17 21:39:00 CSTNotes: Do not exceed 4 gm/day. (Same as: Tylenol) No Longer Active 11/17/2017 [facility] D10W 980.75 mL + sodium chloride 23.4% IV 77 mEq 980.75 mL, Rate: 100 ml/hr, Infuse over: 10 hr, Route: IV, Dosing Weight 90.909 kg, Total Volume: 1,000, Start date: 11/16/17 21:18:00 SHAKE SAWYER, Duration: 30 day, Stop date: 12/16/17 21:17:00 SHAKE SAWYER, 2.06, m2 Inactive 11/17/2017 [facility] Trazodone Hydrochloride 100 MG Oral Tablet 200 mg=2 tab, PO, Bedtime, PRN Insomnia, 0 Refill(s) No Longer Active 11/17/2017 [facility] clonazePAM 1 mg oral tablet 1 mg=1 tab, PO, TID, PRN Anxiety, 0 Refill(s) Active 11/17/2017 [facility] FLUoxetine 40 mg oral capsule 40 mg=1 cap, PO, QPM, 0 Refill(s) Active 11/17/2017 [facility] clopidogrel 75 MG Oral Tablet [Plavix] 75 mg=1 tab, PO, Daily, 0 Refill(s) Active 11/17/2017 [facility] montelukast 10 MG Oral Tablet [Singulair] 10 mg=1 tab, PO, Daily, 0 Refill(s) Active 11/17/2017 [facility] omeprazole 40 mg oral delayed release capsule 40 mg=1 cap, PO, Daily, 0 Refill(s) Active 11/17/2017 [facility] 3 ML insulin detemir 100 UNT/ML Prefilled Syringe [Levemir] 32 unit, SUB-Q, BID, 0 Refill(s) No Longer Active 11/17/2017 [facility] Humalog 100 units/mL 10 unit, SUB-Q, TID-Before Meals, 0 Refill(s) No Longer Active 11/17/2017 [facility] gabapentin 300 MG Oral Capsule 300 mg=1 cap, PO, TID, 0 Refill(s) Active 11/17/2017 [facility] Albuterol 0.83 MG/ML Inhalant Solution 2.5 mg=3 mL, NEB, Daily, 0 Refill(s) Active 11/17/2017 [facility] aripiprazole 10 MG Oral Tablet [Abilify] 10 mg=1 tab, PO, Daily, 0 Refill(s) Active 11/17/2017 [facility] d50 syringe 50 mL, Route: IVP, Dosing Weight 90.909, kg, ONCE, STAT, Start date: 11/16/17 19:14:00 SHAKE SAWYER, Stop date: 11/16/17 19:14:00 SHAKE SAWYER, 25 ml=12.5 gm Inactive 11/17/2017 [facility] Sodium Chloride 0.9% (Bolus) IV 2,000 mL, 2,000 ml/hr, Infuse Over: 1 hr, Route: IV, ONCE, Priority: STAT, Dosing Weight 90.909 kg, Start date: 11/16/17 19:04:00 SHAKE SAWYER, Stop date: 11/16/17 19:04:00 SHAKE SAWYER Inactive 11/17/2017 [facility] D5W 1/2NS 1,000 mL 1,000 mL, Rate: 100 ml/hr, Infuse over: 10 hr, Route: IV, Total Volume: 1,000, Priority: STAT, Start date: 11/16/17 18:52:00 SHAKE SAWYER, Duration: 30 day, Stop date: 12/16/17 18:51:00 SHAKE SAWYER Inactive 11/17/2017 [facility] Allergies, Adverse Reactions, Alerts Substance Category Reaction Severity Reaction type Status Date Reported Comments Source sulfa drugs Assertion Drug allergy Active [facility] aspirin Assertion Drug allergy Active [facility] iodine Assertion Drug allergy Active [facility] NSAIDs Assertion Drug allergy Active [facility] Immunizations Immunization Date Given Site Status Last Updated Comments Source Results Order Name Results Value Reference Range Date Interpretation Comments Source Abdomen/Pelvis wo IV contrast CT Abdomen/Pelvis wo IV contrast CT Clinical Indication: - r/o pyelonephritis Comparison: None TECHNIQUE: Helical imaging was performed without IV contrast, from the diaphragm through the symphysis with multiplanar reformations obtained. IV CONTRAST: None. GI CONTRAST: No oral contrast was administered. DLP: 925.06 mGy-cm FINDINGS: LOWER CHEST: No consolidations, ground glass opacities, effusions, or nodules. LIVER: No conspicuous masses or cysts. No evidence for hepatomegaly. No evidence for diffuse hepatic steatosis. GALLBLADDER: No conspicuous calcified gallstones are noted within the gallbladder. PANCREAS: No conspicuous masses or cysts or CT evidence for acute pancreatitis. SPLEEN: No conspicuous masses or cysts. No evidence for splenomegaly. ADRENALS: The right adrenal gland is unremarkable. The left adrenal gland is unremarkable. KIDNEYS: No conspicuous masses or cysts. Slight perinephric stranding bilaterally could represent early pyelonephritis in the proper clinical setting. One or 2 punctate nonobstructing calculi in the mid/inferior pole the right kidney. BOWEL: The visualized portion of the esophagus is unremarkable. The stomach is unremarkable. Suspect enteritis. The colon is normal in caliber, there are no masses, there is no evidence of diverticulosis or diverticulitis. APPENDIX: The appendix is identified, and there is no CT evidence for appendicitis. PELVIS: There is no evidence for free fluid or free air. There is no CT evidence for diverticulitis, abscess or phlegmon. PERITONEUM: There is no evidence for free intraperitoneal fluid or air. SOFT TISSUES: The soft tissues are unremarkable. There is no evidence of masses or hernias. LYMPH NODES: There is no evidence of mesenteric, retroperitoneal, or inguinal lymphadenopathy. VASCULATURE: There is no evidence for abdominal aortic aneurysm, dissection, or leakage. MUSCULOSKELETAL: No conspicuous fracture, dislocation, or destructive change. IMPRESSION: 1. Suspect enteritis. 2. Slight perinephric stranding bilaterally could represent early pyelonephritis in the proper clinical setting. One or 2 punctate nonobstructing calculi in the mid/inferior pole the right kidney. SL: RHIANNA 08/29/2018 - - Read by: Murphy Conti DO Dictated Date/time: 08/29/18 17:54 Electronically Signed by: Murphy Conti DO 08/29/18 18:01 FINAL REPORT [facility] Chest 2 views DX Chest 2 views DX Study: Chest 2 views DX 08/29/2018 1:23 PM CDT Patient Name: STEPHANIE CAMERON MR: [id number] : 1960; Age: 58 years y/o Female Ordering Physician: Shukri Mccall Clinical Indication: - Chest pain Comparison: 06/11/2018 x-ray FINDINGS LUNGS: The lungs are clear of consolidation, pleural effusion, and pneumothorax. HEART AND MEDIASTINUM: Normal size heart. LINES: None. OSSEOUS STRUCTURES: No fracture, dislocation, or suspicious focal osseous lesion. OTHER: None. IMPRESSION: 1. No acute abnormality as above discussed. SL: [id number] 08/29/2018 - - Read by: Jacob Urrutia MD Dictated Date/time: 08/29/18 14:25 Electronically Signed by: Jacob Urrutia MD 08/29/18 14:27 FINAL REPORT [facility] Carotid artery Doppler bilat US Carotid artery Doppler bilat US Patient Name: STEPHANIE CAMERON : 1960; Age: 58 years y/o Female MR: [id number] CAROTID DOPPLER Clinical Indication: Syncope and collapse - cartoid stenosis; Comparison: None. A noncontrast cranial computed tomography scan from 11/16/2017 and a noncontrast cranial computed tomography scan from today were reviewed. TECHNIQUE: Park-scale, color Doppler and spectral Doppler of the carotid arteries was performed. Any reported ICA stenoses indirectly reference the distal internal carotid diameter as the denominator for the stenosis measurement, utilizing consensus panel criteria. FINDINGS: * PARK SCALE AND COLOR-FLOW: There is no significant plaquing or stenosis. * VELOCITY MEASUREMENTS RIGHT CAROTID SYSTEM : -Right internal carotid artery peak systolic velocity: Within normal limits, 76 cm/sec -ICA/CCA ratio (systolic velocity ratio): Within normal limits, 1.0 LEFT CAROTID SYSTEM : -Left internal carotid artery peak systolic velocity: Within normal limits, 98 cm/sec -ICA/CCA ratio (systolic velocity ratio): Within normal limits, 1.3 * VERTEBRAL ARTERIES: Both vertebral arteries were demonstrated. There is antegrade flow within both vertebral arteries. IMPRESSION: 1. Carotid Doppler within normal limits. There is no significant plaquing or stenosis. Consensus panel Doppler US criteria for diagnosis of ICA stenosis: Stenosis (%) ICA PSV (cm/sec) ICA/CCA ratio <50 <125 <2.0 50-69 125-230 2.0-4.0 >70 but less than >230 >4.0 near occlusion Near occlusion High, low, or Variable undetectable SL: ANGELIQUE 06/11/2018 - - Read by: Luciano Glynn MD Dictated Date/time: 06/11/18 22:41 Electronically Signed by: Luciano Glynn MD 06/11/18 22:43 FINAL REPORT [facility] wo contrast CT Brain wo contrast CT Clinical Indication: Syncope - possible stroke Comparison: November 16 2017 TECHNIQUE: CT images were obtained from the foramen magnum to the vertex without the use of intravenous contrast on a multidetector CT. Coronal and sagittal reconstructions were obtained. CT radiation dose DLP: 859.11 mGy-cm FINDINGS: BRAIN PARENCHYMA: Age appropriate involutionary changes with mild small vessel ischemic changes. There are otherwise normal park-white interfaces, sulci and gyri. There are no focal mass lesions on this noncontrast head CT. There is no mass effect, midline shift or edema. There are no intra-axial or extra-axial fluid collections, intraventricular or intraparenchymal hemorrhage. The pineal, sellar, brainstem, cerebellum and skull base regions appear unremarkable. VENTRICLES: The lateral ventricles, third and fourth ventricles appear unremarkable. The basilar cisterns are normal. ORBITS, MASTOIDS AND PARANASAL SINUSES: The visualized orbits and paranasal sinuses are otherwise unremarkable. Slight opacification of the mastoid air cells bilaterally suggesting mastoiditis in the appropriate clinical setting. SKULL: There are no osseous abnormalities. Beam hardening and motion artifact somewhat obscuring underlying detail, especially in the brainstem and temporal lobe regions. If there is further concern for intracranial pathology or acute stroke, MRI of the brain may be performed for complete assessment. IMPRESSION: 1. Age appropriate involutionary changes with mild small vessel ischemic changes. MR correlation may have merit. 2. Slight opacification of the mastoid air cells bilaterally suggesting mastoiditis in the appropriate clinical setting. SL: SROSENKORIN 06/11/2018 - - Read by: Murphy Conti DO Dictated Date/time: 06/11/18 20:25 Electronically Signed by: Murphy Conti DO 06/11/18 20:42 FINAL REPORT [facility] 1view DX Chest 1view DX Patient Name: STEPHANIE CAMERON : 1960; Age: 58 years y/o Female MR: [id number] Study: Chest 1view DX dated 06/11/2018. Clinical Indication: - sob; Comparison: 11/16/2017 There is a right posterior 4th rib fracture, anterior right 3rd rib fracture and anterior right 5th rib fracture age uncertain. Cardiac and mediastinal structures are stable. No focal infiltrates within the lungs, no edema and no pneumothorax. SL: [id number] 06/11/2018 - - Read by: Magno Zhu MD Dictated Date/time: 06/11/18 15:06 Electronically Signed by: Magno Zhu MD 06/11/18 15:08 FINAL REPORT [facility] CHEM PANEL Magnesium Lvl 1.6 mg/dL 1.8 - 2.4 11/17/2017 [facility] CHEM PANEL eGFR 95 mL/min/1.73m2 11/17/2017 Result Comment: The eGFR is calculated using the [...] from the National Kidney Disease Education Program (NKDEP) which additionally recommends that when the eGFR is used in patients with extremes of body mass index for purposes of drug dosing, the eGFR should be multiplied by the estimated BMI. [facility] CHEM PANEL Total Protein 5.5 g/dL 6.4 - 8.4 11/17/2017 [facility] CHEM PANEL A/G Ratio 0.8 0.7 - 1.6 11/17/2017 [facility] CHEM PANEL ALT 8 unit/L 0 - 65 11/17/2017 [facility] CHEM PANEL Albumin Lvl 2.5 g/dL 3.5 - 5.0 11/17/2017 [facility] CHEM PANEL Globulin 3.0 g/dL 2.7 - 4.2 11/17/2017 [facility] CHEM PANEL Alk Phos 122 unit/L 39 - 136 11/17/2017 [facility] CHEM PANEL Bili Total 0.3 mg/dL 0.2 - 1.3 11/17/2017 [facility] CHEM PANEL AST 7 unit/L 0 - 37 11/17/2017 [facility] CHEM PANEL Potassium Lvl 4.4 meq/L 3.5 - 5.1 11/17/2017 [facility] CHEM PANEL Sodium Lvl 137 meq/L 135 - 145 11/17/2017 [facility] CHEM PANEL Creatinine Lvl 0.72 mg/dL 0.50 - 1.40 11/17/2017 [facility] CHEM PANEL Glucose Lvl 243 mg/dL 70 - 99 11/17/2017 [facility] CHEM PANEL BUN 14 mg/dL 7 - 22 11/17/2017 [facility] CHEM PANEL Calcium Lvl 8.3 mg/dL 8.5 - 10.5 11/17/2017 [facility] CHEM PANEL Chloride Lvl 105 meq/L 95 - 109 11/17/2017 [facility] CHEM PANEL CO2 26 meq/L 24 - 32 11/17/2017 [facility] CHEM PANEL B/C Ratio 19 6 - 25 11/17/2017 [facility] CHEM PANEL AGAP 10.4 meq/L 10.0 - 20.0 11/17/2017 [facility] CHEM PANEL Lactic Acid Lvl 1.4 mMol/L 0.5 - 2.2 11/17/2017 [facility] HEMATOLOGY Basophils # 0.1 K/CMM 0.0 - 0.2 11/17/2017 [facility] HEMATOLOGY Eosinophils # 0.1 K/CMM 0.0 - 0.5 11/17/2017 [facility] HEMATOLOGY Monocytes # 0.6 K/CMM 0.0 - 0.8 11/17/2017 [facility] HEMATOLOGY Segs-Bands # 6.4 K/CMM 1.5 - 8.1 11/17/2017 [facility] HEMATOLOGY Basophils 0.8 % 0.0 - 1.0 11/17/2017 [facility] HEMATOLOGY Eosinophils 1.0 % 0.0 - 4.0 11/17/2017 [facility] HEMATOLOGY Monocytes 5.3 % 2.0 - 12.0 11/17/2017 [facility] Lymphocytes 32.3 % 20.0 - 40.0 11/17/2017 [facility] Segs 60.6 % 45.0 - 75.0 11/17/2017 [facility] Lymphocytes # 3.4 K/CMM 1.0 - 5.5 11/17/2017 [facility] Platelet 352 K/CMM 133 - 450 11/17/2017 [facility] RDW 16.0 % 11.5 - 14.5 11/17/2017 [facility] MPV 7.3 fL 7.4 - 10.4 11/17/2017 [facility] MCHC 32.3 g/dL 32.0 - 36.0 11/17/2017 [facility] MCH 28.1 pg 27.0 - 31.0 11/17/2017 [facility] Hct 31.9 % 36.0 - 48.0 11/17/2017 [facility] Hgb 10.3 g/dL 12.0 - 16.0 11/17/2017 [facility] RBC 3.67 M/CMM 4.20 - 5.40 11/17/2017 [facility] HEMATOLOGY WBC 10.6 K/CMM 3.7 - 10.4 11/17/2017 [facility] MCV 86.9 fL 80.0 - 98.0 11/17/2017 [facility] URINE AND STOOL UA Urobilinogen <=1.0 mg/dL 0.1 - 1.0 11/17/2017 [facility] URINE AND STOOL UA Perris Yeast Occasional /HPF None Seen /HPF 11/17/2017 [facility] URINE AND STOOL UA Bacteria Occasional /HPF None Seen /HPF 11/17/2017 [facility] URINE AND STOOL UA RBC 4 /HPF 0 - 2 11/17/2017 [facility] URINE AND STOOL UA WBC 16 /HPF 0 - 5 11/17/2017 [facility] URINE AND STOOL UA Sq Epi Occasional /LPF Few /LPF 11/17/2017 [facility] URINE AND STOOL UA Leuk Est Moderate *ABN* (11/16/17 11:20 PM) Negative 11/17/2017 [facility] URINE AND STOOL UA Ketones Negative mg/dL Negative mg/dL 11/17/2017 [facility] URINE AND STOOL UA Glucose Negative mg/dL Negative mg/dL 11/17/2017 [facility] URINE AND STOOL UA Protein Negative mg/dL Negative mg/dL 11/17/2017 [facility] URINE AND STOOL UA pH 6.0 5.0 - 8.0 11/17/2017 [facility] URINE AND STOOL UA Spec Grav 1.006 <=1.030 11/17/2017 [facility] URINE AND STOOL UA Turbidity Slight *ABN* (11/16/17 11:20 PM) Clear 11/17/2017 [facility] URINE AND STOOL UA Color Yellow *NA* (11/16/17 11:20 PM) Yellow 11/17/2017 [facility] URINE AND STOOL UA Nitrite Negative (11/16/17 11:20 PM) Negative 11/17/2017 [facility] URINE AND STOOL UA Blood Negative (11/16/17 11:20 PM) Negative 11/17/2017 [facility] URINE AND STOOL UA Bili Negative *NA* (11/16/17 11:20 PM) Negative 11/17/2017 [facility] CHEM PANEL Lactic Acid Lvl 2.7 mMol/L 0.5 - 2.2 11/17/2017 [facility] CARDIAC ENZYMES Total CK 83 unit/L 12 - 191 11/17/2017 [facility] CARDIAC ENZYMES CK MB 1.1 ng/mL 0.5 - 3.6 11/17/2017 [facility] CARDIAC ENZYMES Troponin-I null 0.00 - 0.40 11/17/2017 [facility] CARDIAC ENZYMES CK MB Index 1.3 0.0 - 2.5 11/17/2017 [facility] CHEM PANEL eGFR 60 mL/min/1.73m2 11/17/2017 Result Comment: The eGFR is calculated using the [...] from the National Kidney Disease Education Program (NKDEP) which additionally recommends that when the eGFR is used in patients with extremes of body mass index for purposes of drug dosing, the eGFR should be multiplied by the estimated BMI. [facility] CHEM PANEL A/G Ratio 0.8 0.7 - 1.6 11/17/2017 [facility] CHEM PANEL Sodium Lvl 140 meq/L 135 - 145 11/17/2017 [facility] CHEM PANEL Potassium Lvl 3.8 meq/L 3.5 - 5.1 11/17/2017 [facility] CHEM PANEL Chloride Lvl 103 meq/L 95 - 109 11/17/2017 [facility] CHEM PANEL CO2 28 meq/L 24 - 32 11/17/2017 [facility] CHEM PANEL Calcium Lvl 8.0 mg/dL 8.5 - 10.5 11/17/2017 [facility] CHEM PANEL Total Protein 6.2 g/dL 6.4 - 8.4 11/17/2017 [facility] CHEM PANEL ALT 9 unit/L 0 - 65 11/17/2017 [facility] CHEM PANEL Albumin Lvl 2.7 g/dL 3.5 - 5.0 11/17/2017 [facility] CHEM PANEL AST 9 unit/L 0 - 37 11/17/2017 [facility] CHEM PANEL B/C Ratio 13 6 - 25 11/17/2017 [facility] CHEM PANEL Globulin 3.5 g/dL 2.7 - 4.2 11/17/2017 [facility] CHEM PANEL Bili Total 0.2 mg/dL 0.2 - 1.3 11/17/2017 [facility] CHEM PANEL AGAP 12.8 meq/L 10.0 - 20.0 11/17/2017 [facility] CHEM PANEL Alk Phos 124 unit/L 39 - 136 11/17/2017 [facility] CHEM PANEL BUN 14 mg/dL 7 - 22 11/17/2017 [facility] CHEM PANEL Creatinine Lvl 1.05 mg/dL 0.50 - 1.40 11/17/2017 [facility] CHEM PANEL Glucose Lvl 107 mg/dL 70 - 99 11/17/2017 [facility] HEMATOLOGY PT 12.9 s 12.0 - 14.7 11/17/2017 [facility] HEMATOLOGY INR 0.97 0.85 - 1.17 11/17/2017 [facility] HEMATOLOGY PTT 32.6 s 22.9 - 35.8 11/17/2017 [facility] HEMATOLOGY MCH 28.7 pg 27.0 - 31.0 11/17/2017 [facility] HEMATOLOGY MCV 87.8 fL 80.0 - 98.0 11/17/2017 [facility] HEMATOLOGY Hct 34.6 % 36.0 - 48.0 11/17/2017 [facility] HEMATOLOGY RBC 3.94 M/CMM 4.20 - 5.40 11/17/2017 [facility] HEMATOLOGY WBC 10.3 K/CMM 3.7 - 10.4 11/17/2017 [facility] Hgb 11.3 g/dL 12.0 - 16.0 11/17/2017 [facility] MPV 7.3 fL 7.4 - 10.4 11/17/2017 [facility] MCHC 32.7 g/dL 32.0 - 36.0 11/17/2017 [facility] Platelet 369 K/CMM 133 - 450 11/17/2017 [facility] HEMATOLOGY RDW 15.9 % 11.5 - 14.5 11/17/2017 [facility] HEMATOLOGY Segs-Bands # 6.8 K/CMM 1.5 - 8.1 11/17/2017 [facility] Lymphocytes # 2.7 K/CMM 1.0 - 5.5 11/17/2017 [facility] HEMATOLOGY Eosinophils 0.9 % 0.0 - 4.0 11/17/2017 [facility] HEMATOLOGY Basophils 0.7 % 0.0 - 1.0 11/17/2017 [facility] HEMATOLOGY Monocytes 6.6 % 2.0 - 12.0 11/17/2017 [facility] HEMATOLOGY Lymphocytes 25.7 % 20.0 - 40.0 11/17/2017 [facility] HEMATOLOGY Segs 66.1 % 45.0 - 75.0 11/17/2017 [facility] HEMATOLOGY Basophils # 0.1 K/CMM 0.0 - 0.2 11/17/2017 [facility] HEMATOLOGY Eosinophils # 0.1 K/CMM 0.0 - 0.5 11/17/2017 [facility] HEMATOLOGY Monocytes # 0.7 K/CMM 0.0 - 0.8 11/17/2017 [facility] Brain wo contrast CT Brain wo contrast CT Addendum: I have reviewed the case and agree with the findings. SL: [id number] Clinical Indication: Weakness, found unresponsive Comparison: None TECHNIQUE: CT images were obtained from the foramen magnum to the vertex without the use of intravenous contrast on a multidetector CT. Coronal and sagittal reconstructions were obtained. CT radiation dose DLP: 981.54 mGy-cm FINDINGS: BRAIN PARENCHYMA: Normal park-white interfaces, sulci and gyri. No focal mass lesions on this noncontrast head CT. No mass effect, midline shift or edema. No intra-axial or extra-axial fluid collections, intraventricular or intraparenchymal hemorrhage. Pineal, brainstem, cerebellum and skull base regions appear unremarkable. Empty sella noted. VENTRICLES: Lateral ventricles, third and fourth ventricles appear unremarkable. Basilar cisterns are normal. ORBITS, MASTOIDS AND PARANASAL SINUSES: -Possible low-density focus in the posterior left globe. Right globe appears unremarkable. Retro-orbital spaces appear normal.. - The paranasal sinuses are unremarkable. The mastoid air cells are clear. SKULL: No acute osseous abnormalities. No focal or asymmetric scalp swelling. If there is further concern for intracranial pathology or acute stroke, MRI of the brain may be performed for complete assessment. IMPRESSION: 1. No acute intracranial abnormality. No mass, hemorrhage, or subacute stroke. 2. Questionable low density region in the posterior left globe. This may be artifactual in nature. Nonemergent ophthalmology consultation is suggested to better assess. SL: [id number] 11/16/2017 - - Read by: Carlin Trent MD Dictated Date/time: 11/17/17 00:19 Electronically Signed by: Carlin Trent MD 11/17/17 00:20 FINAL REPORT - - Read by: Leroy Chavez MD Dictated Date/time: 11/17/17 00:06 Electronically Signed by: Leroy Chavez MD 11/17/17 00:10 FINAL REPORT [facility] Chest 1view DX Chest 1view DX EXAM: XR CHEST 1 VIEW DATE: 11/16/2017 6:52 PM [facility] INDICATION: Weakness. COMPARISON: CT chest dated 12/09/2017 TECHNIQUE: A single AP view of the chest was obtained. FINDINGS: The examination is limited by low lung volumes, with bibasilar subsegmental atelectasis and crowding of the central pulmonary vasculature. No focal consolidation or pneumothorax is identified. The cardiomediastinal silhouette is within normal limits. The costophrenic recesses are sharp and without effusion. No acute osseous abnormality is noted. IMPRESSION: Low lung volumes without acute cardiopulmonary abnormality. SL: [id number] 11/16/2017 - - Read by: Magno Scruggs MD Dictated Date/time: 11/16/17 19:45 Electronically Signed by: Magno Scruggs MD 11/16/17 19:46 FINAL REPORT [facility] Chest wo contrast CT Chest wo contrast CT EXAM: Chest wo contrast CT HISTORY: D47.3 Essential (hemorrhagic) thrombocythemia; D72.829 Elevated white blood cell count, unspecified; Z87.891 Personal history of nicotine dependence COMPARISON: None Technique: CT scan of the chest was performed from the thoracic inlet to the lung bases without intravenous contrast administration. Images are presented in the axial, sagittal, and coronal planes. The total DLP for this examination is 369 mGycm. FINDINGS: The visualized thyroid gland appears normal. There is mild calcific atherosclerotic disease. Small shotty nodes in the mediastinum are probably reactive. There is no pericardial or pleural effusion. There is mosaic attenuation with some hazy areas of groundglass opacity which is probably related to airways disease in this patient with history of chronic smoking. No nodules or dense opacification is seen. No mass or nodule is seen. Bone windows demonstrate no worrisome lytic or blastic osseous lesions. The visualized upper abdomen appears unremarkable for noncontrast technique. IMPRESSION: There is mosaic attenuation with some hazy areas of groundglass opacity which is probably related to airways disease in this patient with history of chronic smoking. Atypical infection is considered a less likely etiology. Correlate clinically. 12/09/2016 - - Read by: Zoila Wade MD Dictated Date/time: 12/09/16 13:04 Electronically Signed by: Zoila Wade MD 12/09/16 13:09 FINAL REPORT [facility] Spine lumbar series DX Spine lumbar series DX Exam: Lumbar Spine X-ray, 5 views Reason for Exam: low back pain m54.5 Comparison Exam: MRI lumbar spine 06/24/2015 Discussion: 5 non rib-bearing lumbar vertebral bodies are seen. Vertebral body heights are maintained. No spondylolisthesis or scoliosis. Mild multilevel degenerative disc disease. No suspicious osteoblastic or osteolytic lesions. Moderate vascular calcification seen within the abdominal aorta. Note that a lumbar spine x-ray cannot rule out ligamentous injuries or spinal cord abnormalities. No dilated loops of bowel within the visualized portions of the abdomen and pelvis. Impression: 1. Vertebral body heights are maintained. No spondylolisthesis or scoliosis. Mild multilevel degenerative disc disease. 12/22/2015 - - Read by: James Bragg MD Dictated Date/time: 12/22/15 12:55 Electronically Signed by: James Bragg MD 12/22/15 12:58 FINAL REPORT [facility] Spine lumbar wo contrast MRI Spine lumbar wo contrast MRI EXAM: MRI LUMBAR SPINE WITHOUT CONTRAST DATE: Jun 24, 2015 03:04:00 PM . CLINICAL INDICATION: See Clinic Indication . TECHNIQUE: Multiplanar, multisequence MRI lumbar spine without IV contrast COMPARISON: Unavailable FINDINGS: The lumbar vertebral bodies have normal height, shape, and alignment. There is no worrisome marrow signal abnormality. The conus terminates normally at L1-L2. The paravertebral soft tissues are within normal limits. Disc spaces, spinal canal, and neural foramina: T12-L1. Intervertebral disc height and signal are maintained. Posterior elements are normal. There is no stenosis. L1-L2. Intervertebral disc height and signal are maintained. There is mild facet enlargement. There is no stenosis. L2-L3. Loss of intervertebral disc height and signal small diffuse disc bulge. Mild facet enlargement. Thecal sac is indented without central canal or subarticular zone stenosis. Neural foramina are mildly narrowed without nerve root mass effect. L3-L4. Loss of vertebral disc height and signal small diffuse disc bulge appear bilateral facet hypertrophy with ligamentous thickening. Thecal sac is indented without significant narrowing of the central canal or subarticular zones. There is mild right neural foraminal narrowing without nerve root mass effect. L4-L5. Loss of intervertebral disc height and signal with circumferential diffuse disc bulge and superimposed 5 mm central protrusion with annular fissuring, but no migration of disc material. Bilateral facet hypertrophy with ligamentous thickening. Central canal is focally narrowed to 5 mm without significant crowding of the cauda equina. There is bilateral some reticular zone narrowing with mass effect on each descending L5 nerve root. There is mild bilateral neural foraminal narrowing without nerve root mass effect. L5-S1. Intervertebral disc height and signal are maintained. Posterior elements are normal. There is no stenosis. IMPRESSION: 1. Diffuse disc bulge, superimposed central protrusion, and facet hypertrophy cause moderate L4-L5 central canal stenosis without significant cauda equina crowding. There is bilateral subarticular zone narrowing with mass effect on each descending L5 nerve root. 2. No additional significant spinal canal or neural foraminal stenosis is present. 3. Please see additional comments above 06/24/2015 - - Read by: Tin Vu MD Dictated Date/time: 06/24/15 15:52 Electronically Signed by: Tin Vu MD 06/24/15 16:16 FINAL REPORT [facility] Vital Signs Vital Sign Value Date Comments Source Systolic (mm Hg) 130 11/17/2017 [facility] Diastolic (mm Hg) 60 11/17/2017 [facility] Respitory Rate 14 11/17/2017 [facility] Systolic (mm Hg) 143 11/17/2017 [facility] Diastolic (mm Hg) 82 11/17/2017 [facility] Respitory Rate 27 11/17/2017 [facility] Respitory Rate 20 11/17/2017 [facility] Systolic (mm Hg) 125 11/17/2017 [facility] Diastolic (mm Hg) 58 11/17/2017 [facility] Temperature Oral (F) 98.4 F 11/17/2017 [facility] Temperature Oral (F) 98.6 F 11/17/2017 [facility] Temperature Oral (F) 98.1 F 11/17/2017 [facility] Height 162.56 cm 11/17/2017 [facility] Weight 99.5 11/17/2017 [facility] BMI Calculated 37.65 11/17/2017 [facility] Height 162.56 cm 11/17/2017 [facility] Heart Rate 84 11/17/2017 [facility] BMI Calculated 34.4 11/17/2017 [facility] Weight 90.909 11/17/2017 [facility] Encounters Location Location Details Encounter Type Encounter Number Reason For Visit Attending Provider ADM Date DC Date Status Source [facility] [place] [facility] [id number] Juan Rocha II 06/24/2015 06/25/[address] [facility] [place] [facility] [id number] [facility] Hamid 12/22/2015 12/23/[address] [facility] [place] [facility] [id number] Carrington Kennedy 12/09/2016 12/10/2016 LEANNA Bird [facility] Observation [id number] Akash Garcia 11/17/2017 11/17/2017 [facility] Procedures Procedure Code Date Perfomer Comments Source Abdominal hysterectomy [id number] [facility] Foot joint operations [id number] [facility]
--- OUTSIDE RECORDS SUMMARY | 2018-10-05 17:21 | XMS REPORT | Summary of Care ---
Author Author [facility] [place] Organization [facility] [place] Address Unknown Phone Unavailable Encounter HQ Encntr_alias(FIN) [id number] Date(s): 12/22/15 - 12/22/15 [facility] [place] [address], [place] [address] [phone] Discharge Disposition: Home Attending Physician: Susan Coy MD Vital Signs No data available for [...]
[2018-10-05] MEDS ORDERED: DEXTROSE 5%/0.45% SOD CHL 1,000 ML IV STA (17:27)
[2018-10-05] MEDS ORDERED: SODIUM CHLORIDE 0.9% 1000ML 1,000 ML ONE (17:38)
[2018-10-05] MEDS ORDERED: VANCOMYCIN 1GM/NS 250 ML 250 ML IV ONE (18:20)
[2018-10-05 18:23] LABS: BASOPHILS # (AUTO) 0.1 (0.0-0.1); BASOPHILS % 0.5 % (0.0-1.0); EOSINOPHILS # (AUTO) 0.1 (0.0-0.4); EOSINOPHILS % 0.5 % (0.0-6.0); HEMATOCRIT 34.9 % (34.2-44.1); HEMOGLOBIN 10.5 g/dL (12.0-16.0); LYMPHOCYTES # (AUTO) 2.5 (1.0-3.2); LYMPHOCYTES % 19.3 % (18.0-39.1); MEAN CORPUSCULAR HEMOGLOBIN 24.8 pg (28-32); MEAN CORPUSCULAR HGB CONC 30.1 g/dL (31-35); MEAN CORPUSCULAR VOLUME 82.3 fL (81-99); MONOCYTES # (AUTO) 0.7 (0.2-0.8); MONOCYTES % 5.1 % (4.4-11.3); NEUTROPHILS # (AUTO) 9.4 (2.1-6.9); PLATELET COUNT 375 x10e3/uL (140-360); RED BLOOD COUNT 4.24 x10e6/uL (3.6-5.1); RED CELL DISTRIBUTION WIDTH 19.4 % (11.7-14.4)
[2018-10-05 18:49] LABS: ALANINE AMINOTRANSFERASE 6 IU/L (0-55); ALBUMIN 3.1 g/dL (3.5-5.0); ALBUMIN/GLOBULIN RATIO 0.9 (0.8-2.0); ALKALINE PHOSPHATASE 112 IU/L (40-150); BLOOD UREA NITROGEN 30 mg/dL (7-26); BUN/CREATININE RATIO 22 (6-25); CALCIUM 8.6 mg/dL (8.4-10.2); CARBON DIOXIDE 20 mmol/L (22-29); CHLORIDE 100 mmol/L (98-107); CREATINE KINASE 60 IU/L (29-168); CREATININE, SERUM 1.38 mg/dL (0.57-1.11); EST GLOMERULAR FILTRATION RATE 40 ML/MIN (60-); GLUCOSE 118 mg/dL (74-118); LIPASE 17 U/L (8-78); SODIUM 132 mmol/L (136-145)
[2018-10-05 18:50] LABS: BILIRUBIN,URINE NEGATIVE (NEGATIVE); CLARITY,URINE CLEAR (CLEAR); COLOR,URINE YELLOW (YELLOW); KETONES,URINE NEGATIVE (NEGATIVE); LEUKOCYTE ESTERASE ,URINE NEGATIVE (NEGATIVE); NITRITE,URINE NEGATIVE (NEGATIVE); PROTEIN,URINE DIPSTICK NEGATIVE (NEGATIVE); URINE UROBILINOGEN 0.2 mg/dL (0.2 - 1)
[2018-10-05 19:10] LABS: AMORPHOUS SEDIMENT,URINE MODERATE (FEW); BACTERIA,URINE FEW /HPF; EPITHELIAL CELLS,URINE FEW /LPF; RBC,URINE 0-5 /HPF (0-5); WBC,URINE (MAN) 0-5 /HPF (0-5)
[2018-10-05] MEDS: CEFEPIME HCL 1 GM VIAL IV SCH (20:10)
--- NOTE | 2018-10-05 20:54 | Diagnostic Imaging Report ---
EXAMINATION: CHEST SINGLE (PORTABLE) INDICATION: Low blood sugar. COMPARISON: . FINDINGS: TUBES and LINES: Right internal jugular central venous catheter with distal tip projected on the SVC proximal to the cavoatrial junction. LUNGS: Linear atelectasis in the left lung base. There is no evidence of pneumonia or pulmonary edema. PLEURA: No pleural effusion or pneumothorax. HEART AND MEDIASTINUM: The cardiomediastinal silhouette is unremarkable. BONES AND SOFT TISSUES: No acute osseous lesion. Soft tissues are unremarkable. UPPER ABDOMEN: No free air under the diaphragm. IMPRESSION: No acute thoracic abnormality. Signed by: Dr. Dennise Loredo M.D. on 10/05/2018 8:50 PM
--- NOTE | 2018-10-05 22:58 | Diagnostic Imaging Report ---
EXAM: CT ABDOMEN/PELVIS WO DATE: 10/05/2018 5:27 PM INDICATION: ^abd pain LOW SUGAR, IODINE ALLERGY ^[id number] ^[id number], history of diabetes, asthma, GERD, chronic back pain COMPARISON: None TECHNIQUE: The abdomen and pelvis were scanned using a multidetector helical scanner. Coronal and sagittal reformations were obtained. CT low dose techniques were utilized, as applicable. IV Contrast: 0 ml Isovue 300/370 FINDINGS: Lack of IV contrast decreases sensitivity in evaluating abdominal and pelvic organs. LOWER THORAX: Bibasilar atelectasis/scarring LIVER/BILIARY: No masses. No ductal dilatation. GALLBLADDER: Contracted SPLEEN: Unremarkable PANCREAS: Atrophic ADRENALS: No nodules KIDNEYS: Punctate right 1 to 2 mm inferior renal calculus. No hydronephrosis. There is a subcentimeter left posterior renal cystic lesion, suboptimally assessed. GI TRACT: Mild gastric distention which may be related to recent ingestion/oral contrast administration or gastroparesis given diabetes. No evidence of obstruction. Moderate stool burden. Normal appendix. VESSELS: Moderate atherosclerotic calcifications PERITONEUM/RETROPERITONEUM: No free air or fluid LYMPH NODES: No lymphadenopathy REPRODUCTIVE ORGANS/BLADDER: Bladder is decompressed with a Graff. Hysterectomy. SOFT TISSUES: Rectus muscle diastases with tiny fat-containing umbilical hernia BONES: Scattered degenerative changes. IMPRESSION: No acute abnormality in the abdomen or pelvis. Signed by: Dr Sherron Thompson MD on 10/05/2018 10:55 PM
[2018-10-05] MEDS ORDERED: CLONAZEPAM 1 MG TAB PO PRN (23:15)
[2018-10-05] MEDS ORDERED: DEXTROSE 50% SYRINGE 50 ML IV PRN (23:15)
[2018-10-05] MEDS ORDERED: ONDANSETRON HCL INJ 2 MG/ML VIAL IV PRN (23:15)
[2018-10-06] VITALS: BP 120/54
[2018-10-06 00:37] VITALS: BP 120/54
[2018-10-06] MEDS: CEFEPIME HCL 1 GM VIAL IV SCH ×2 (02:00→09:31)
[2018-10-06 02:55] LABS: CREATINE KINASE 58 IU/L (29-168)
[2018-10-06 04:00] VITALS: BP 116/58
[2018-10-06 05:37] LABS: BASOPHILS % 0.4 % (0.0-1.0); EOSINOPHILS # (AUTO) 0.1 (0.0-0.4); EOSINOPHILS % 1.1 % (0.0-6.0); HEMATOCRIT 32.5 % (34.2-44.1); LYMPHOCYTES % 26.9 % (18.0-39.1); MEAN CORPUSCULAR HGB CONC 30.8 g/dL (31-35); MEAN CORPUSCULAR VOLUME 81.3 fL (81-99); MONOCYTES # (AUTO) 0.7 (0.2-0.8); MONOCYTES % 6.5 % (4.4-11.3); NEUTROPHILS # (AUTO) 7.3 (2.1-6.9); NEUTROPHILS % 64.7 % (38.7-80.0); PLATELET COUNT 369 x10e3/uL (140-360); RED CELL DISTRIBUTION WIDTH 19.1 % (11.7-14.4)
[2018-10-06 05:40] LABS: CREATINE KINASE 53 IU/L (29-168)
[2018-10-06 06:06] LABS: ALANINE AMINOTRANSFERASE 6 IU/L (0-55); ALBUMIN 2.7 g/dL (3.5-5.0); ALBUMIN/GLOBULIN RATIO 0.9 (0.8-2.0); ALKALINE PHOSPHATASE 118 IU/L (40-150); ANION GAP 13.6 mmol/L (8-16); BLOOD UREA NITROGEN 20 mg/dL (7-26); BUN/CREATININE RATIO 26 (6-25); CALCIUM 8.4 mg/dL (8.4-10.2); CARBON DIOXIDE 21 mmol/L (22-29); CHLORIDE 108 mmol/L (98-107); CREATININE, SERUM 0.78 mg/dL (0.57-1.11); EST GLOMERULAR FILTRATION RATE > 60 ML/MIN (60-); GLUCOSE 184 mg/dL (74-118); POTASSIUM 4.6 mmol/L (3.5-5.1); SODIUM 138 mmol/L (136-145)
[2018-10-06] MEDS: INSULIN REGULAR, HUMAN 100 UNIT/1 ML 3ML VIAL SQ SCH ×2 (07:30→11:10)
[2018-10-06 08:33] VITALS: BP 126/63
[2018-10-06] MEDS ORDERED: MONTELUKAST SODIUM 10 MG TAB PO SCH (09:00)
[2018-10-06] MEDS ORDERED: FLUOXETINE HCL 20 MG CAP PO SCH (09:00)
[2018-10-06] MEDS ORDERED: LIDOCAINE 5% PATCH TP SCH (09:00)
[2018-10-06] MEDS ORDERED: CEFDINIR 300 MG CAP PO SCH (09:00)
[2018-10-06] MEDS ORDERED: CLOPIDOGREL BISULFATE 75 MG TAB PO SCH (09:00)
[2018-10-06] MEDS ORDERED: ALLOPURINOL 300 MG TAB PO SCH (09:00)
[2018-10-06] MEDS ORDERED: PANTOPRAZOLE SOD 40 MG TABEC PO SCH (09:00)
[2018-10-06] MEDS ORDERED: METOPROLOL SUCCINATE 25 MG TAB XL PO SCH (09:00)
[2018-10-06] MEDS ORDERED: ARIPIPRAZOLE 5 MG TABLET PO SCH (09:00)
[2018-10-06] MEDS ORDERED: HYDROCODONE/APAP 10MG-325MG TAB PO SCH (09:00)
[2018-10-06] MEDS ORDERED: GABAPENTIN 300 MG CAP PO SCH (09:00)
[2018-10-06] MEDS ORDERED: ALBUTEROL SULFATE HFA 8GM INHALATION AEROSOL INH SCH (09:00)
[2018-10-06 11:08] VITALS: BP 143/56
[2018-10-06] MEDS ORDERED: QUETIAPINE FUMARATE 100 MG TAB PO SCH (21:00)
[2018-10-06] MEDS ORDERED: INSULIN DETEMIR 100 UNIT/ML PEN SQ SCH (21:00)
== END 2018-10-06 12:56 | disposition home or self-care (01) ==
LOC: ER 17:17 → ERHOLD 23:12 → IMCU 10-06 00:10
DX: E11.649 Type 2 diabetes mellitus with hypoglycemia without coma (principal); Z79.4 Long term (current) use of insulin; K21.9 Gastro-esophageal reflux disease without esophagitis; J44.9 Chronic obstructive pulmonary disease, unspecified; F17.210 Nicotine dependence, cigarettes, uncomplicated; F41.9 Anxiety disorder, unspecified; Z79.02 Long term (current) use of antithrombotics/antiplatelets; Z91.041 Radiographic dye allergy status; Z88.2 Allergy status to sulfonamides; Z88.8 Allergy status to other drugs, medicaments and biological substances
CPT/HCPCS: 36415 ×2; 36555; 36556; 51700; 71045; 74176; 80053 ×2; 81001; 82550 ×2; 82553 ×2; 82948 ×2; 83605; 83690; 84484 ×2; 85025 ×2; 87040; 87086; 93005; 97139; 99284; G0378 ×2; J0692 ×2; J3370; J7030; S0164

== ENCOUNTER 2018-12-22 21:11 | Emergency (ER) | payer MEDICARE, OTHER ==
[~2018-12-22] VITALS: Ht 162.6 cm; Wt 102.5 kg
--- OUTSIDE RECORDS SUMMARY | 2018-12-22 21:14 | XMS REPORT ---
[facility] Address Unknown Phone Unavailable Care Team Providers Care Joiner Apprentice Name Role Phone Sun CAT Unavailable Unavailable Malgorzata HALE Unavailable Unavailable Jose David VALDOVINOS Unavailable Unavailable Thomas FISH Unavailable Unavailable BOUCHER, SOUHECHEYENNE Unavailable Unavailable CORRIE DEVRIES Unavailable Unavailable ZOMPA, A JACIEL Unavailable Unavailable Shama PORTER Unavailable Unavailable Payers Payer Name Policy Type Policy Number Effective Date Expiration Date Problems This patient has no known problems. Allergies, Adverse Reactions, Alerts Allergy Name Allergy Type Status Severity Reaction(s) Onset Date Inactive Date Treating Clinician Comments Milk Containing Products DA Active U 2018-01-29 00:00:00 soap DA Active U 2014-03-26 00:00:00 NSAIDS (Non-Steroidal Anti-Inflamma DA Active U 2014-03-26 00:00:00 iodine DA Active U 2014-03-26 00:00:00 aspirin DA Active U 2014-03-26 00:00:00 ibuprofen DA Active U 2014-03-26 00:00:00 povidone-iodine DA Active U 2014-03-26 00:00:00 shellfish derived DA Active U 2014-03-26 00:00:00 Medications This patient has no known medications. Results Test Description Test Time Test Comments Text Results Atomic Results Result Comments CT ABDOMEN/PELVIS WO 2018-10-05 22:49:00 [facility] [address] [place], [place] [address] Patient Name: STEPHANIE CAMERON MR #: [id number] : 1960 Age/Sex: 58/F Req #: [id number] [facility] Physician: Ordered by: JUAN CARLOS CAT MD Report #: [id number] Location: ER Room/Bed: Procedure: [id number] CT/CT ABDOMEN/PELVIS WO Exam Date: 10/05/18 Exam Time: 2221 REPORT STATUS: Signed EXAM: CT ABDOMEN/PELVIS WO DATE: 10/05/2018 5:27 PM INDICATION: abd pain LOW SUGAR, IODINE ALLERGY [id number], history of diabetes, asthma, GERD, chronic back pain COMPARISON: None TECHNIQUE: The abdomen and pelvis were scanned using a multidetector helical scanner. Coronal and sagittal reformations were obtained. CT low dose techniques were utilized, as applicable. IV Contrast: 0 ml Isovue 300/370 FINDINGS: Lack of IV contrast decreases sensitivity in evaluating abdominal and pelvic organs. LOWER THORAX: Bibasilar atelectasis/scarring LIVER/BILIARY: No masses. No ductal dilatation. GALLBLADDER: Contracted SPLEEN: Unremarkable PANCREAS: Atrophic ADRENALS: No nodules KIDNEYS: Punctate right 1 to 2 mm inferior renal calculus. No hydronephrosis. There is a subcentimeter left posterior renal cystic lesion, suboptimally assessed. GI TRACT: Mild gastric distention which may be related to recent ingestion/oral contrast administration or gastroparesis given diabetes. No evidence of obstruction. Moderate stool burden. Normal appendix. VESSELS: Moderate atherosclerotic calcifications PERITONEUM/RETROPERITONEUM: No free air or fluid LYMPH NODES: No lymphadenopathy REPRODUCTIVE ORGANS/BLADDER: Bladder is decompressed with a Graff. Hysterectomy. SOFT TISSUES: Rectus muscle diastases with tiny fat-containing umbilical hernia BONES: Scattered degenerative changes. IMPRESSION: No acute abnormality in the abdomen or pelvis. Signed by: Dr Luda Dawn MD on 10/05/2018 10:55 PM Dictated By: LUDA DAWN MD 54 COPY TO: JUAN CARLOS CAT MD CHEST SINGLE (PORTABLE) 2018-10-05 20:49:00 [place] [address] Patient Name: STEPHANIE CAMERON MR #: [id number] : 1960 Age/Sex: 58/F Req #: [id number] Adm Physician: Ordered by: JUAN CARLOS CAT MD Report #: [id number] Location: ER Room/Bed: Procedure: [id number] DX/CHEST SINGLE (PORTABLE) Exam Date: 10/05/18 Exam Time: 1946 REPORT STATUS: Signed EXAMINATION: CHEST SINGLE (PORTABLE) IND ICATION: Low blood sugar. COMPARISON: . FINDINGS: TUBES and LINES: Right internal jugular central venous catheter with distal tip projected on the SVC proximal to the cavoatrial junction. LUNGS: Linear atelectasis in the left lung base. There is no evidence of pneumonia or pulmonary edema. PLEURA: No pleural effusion or pneumothorax. HEART AND MEDIASTINUM: The cardiomediastinal silhouette is unremarkable. BONES AND SOFT TISSUES: No acute osseous lesion. Soft tissues are unremarkable. UPPER ABDOMEN: No free air under the diaphragm. IMPRESSION: No acute thoracic abnormality. Signed by: Dr. Dennise Rey M.D. on 10/05/2018 8:50 PM Dictated By: CHRISTINA REY MD, MD 49 Transcribed By: SCOTT on 10/05/182049 COPY TO: JUAN CARLOS CAT MD CHEST SINGLE (PORTABLE) 2018-06-05 17:59:00 [facility] [address] [place] [address] Patient Name: STEPHANIE CAMERON MR #: [id number] : 1960 Age/Sex: 58/F Req #: [id number] Adm Physician: Ordered by: STEVEN STAPLETON SAND MIXER OPERATOR Report #: [id number] Location: ER Room/Bed: Procedure: [id number] DX/CHEST SINGLE (PORTABLE) Exam Date: 06/05/18 Exam Time: 1719 REPORT STATUS: Signed PROCEDURE: A single AP view of the chest. COMPARISON: 04/06/18 INDICATIONS: weakness, dizzy FINDINGS: Lines/tubes: None. Lungs: Limited by body habitus. Mild central vascular congestion. No definite focal consolidation. Pleura: There is no pleural effusion or pneumothorax. Heart and mediastinum: The heart and the mediastinum are unremarkable. Bones: No acute bony abnormality. IMPRESSION: Mild central vascular congestion. No definite focal consolidation. Dictated by: Vladimir Haynes M.D. on 06/05/2018 at 17:59 Electronically approved by: Vladimir Haynes M.D. on 06/05/2018 at 17:59 Dictated By: VLADIMIR HAYNES MD 58 Transcribed By: OSCAR on 06/05/181758 COPY TO: STEVEN STAPLETON NP CT BRAIN WO 2018-06-05 17:35:00 [place] [id number] [place], [place] [address] Patient Name: STEPHANIE CAMERON MR #: [id number] : 1960 Age/Sex: 58/F Req #: [id number] Adm Physician: Ordered by: STEVEN STAPLETON SAND MIXER OPERATOR Report #: [id number] Location: ER Room/Bed: Procedure: [id number] CT/CT BRAIN WO Exam Date: 06/05/18 Exam Time: 1717 REPORT STATUS: Signed Examination: CT head without contrast Clinical Indication: Dizziness. Technique: Transaxial noncontrast images from the skull base through the vertex were obtained. Sagittal and coronal reformatted images were done. Comparison: 04/06/2018. Findings: Scalp: No abnormalities. Bones: Intact. No fractures. No blastic or lytic lesions. Brain sulci: Appropriate for patient's age. Ventricles: Normal in size and configuration. No hydrocephalus. Extra-axial space: No abnormalities. Parenchyma: No abnormal densities. No masses, hemorrhage, or acute or chronic cortical based vascular insults. Suprasellar region: No abnormalities. Craniocervical junction: The foramen magnum is patent. No Chiari one malformation. Mild atherosclerotic changes of the carotid siphons. Partially visualized hyperdense material seen in the posterior aspect of the left eye globe, could be related to retinal detachment, stable Impression: No new or acute intracranial abnormality. Stable examination. . Signed by: DR Anmol Clinton M.D. on 06/05/2018 5:38 PM Dictated By: ANMOL GARZA MD 37 Transcribed By: SCOTT on 06/05/181737 COPY TO: STEVEN STAPLETON NP CT CERVICAL SPINE WO 2018-04-06 21:37:00 [place] [address] Patient Name: STEPHANIE CAMERON MR #: [id number] : 1960 Age/Sex: 57/F Req #: [id number] [facility] Physician: Ordered by: MARYLU VALDOVINOS MD Report #: [id number] Location: ER Room/Bed: Procedure: [id number] CT/CT CERVICAL SPINE WO Exam Date: 04/06/18 Exam Time: 2040 REPORT STATUS: Signed Examination: CT CERVICAL SPINE WITHOUT CONTRAST HISTORY:Fall. Neck injury. COMPARISON:CT cervical spine performed November 06, 2017. TECHNIQUE: Multidetector helical axial images were obtained without contrast from the foramen magnum to T1. Coronal and sagittal reformatted images were done. Bone and soft tissue windows were evaluated. FINDINGS: Alignment:Normal alignment and lordosis. Vertebrae: Normal height and density. No acute fracture, infection or neoplasm. Disc space heights: Normal height. Caliber of spinal canal: Developmentally normal. Posterior fossa and craniocervical junction: Foramen magnum patent. No Chiari 1 malformation. Soft tissues: No abnormality. Degenerative changes: No disc bulge/ herniation or foraminal or canal stenosis. Additional findings: None. IMPRESSION: No new abnormalities. No change since November 06, 2017. Signed by: Dr. Michael Ledesma M.D. on 04/06/2018 9:38 PM Dictated By: MICHAEL MULLINS MD 37 Transcribed By: SCOTT on 04/06/182137 COPY TO: MARYLU VALDOVINOS MD CT BRAIN WO 2018-04-06 21:36:00 [place] [address] Patient Name: STEPHANIE CAMERON MR #: [id number] : 1960 Age/Sex: 57/F Req #: [id number] Adm Physician: Ordered by: MARYLU VALDOVINOS MD Report #: [id number] Location: ER Room/Bed: Procedure: [id number] CT/CT BRAIN WO Exam Date: 04/06/18 Exam Time: 2040 REPORT STATUS: Signed Examination: CT head without contrast Clinical Indication: Fall. Head injury. Technique: Transaxial noncontrast images from the skull base through the vertex were obtained. Sagittal and coronal reformatted images were done. Comparison: Head CT performed November 06, 2017. Findings: Scalp: No abnormalities. Bones: Intact. No fractures. No blastic or lytic lesions. Brain sulci: Appropriate for patient's age. Ventricles: Normal in size and configuration. No hydrocephalus. Extra-axial space: No abnormalities. Parenchyma: No abnormal densities. No masses, hemorrhage, or acute or chronic cortical based vascular insults. Suprasellar region: No abnormalities. Craniocervical junction: The foramen magnum is patent. No Chiari one malformation. Impression: No new or acute intracranial abnormality. No change from prior head CT performed November 06, 2017. Signed by: Dr. Michael Ledesma M.D. on 04/06/2018 9:37 PM Dictated By: MICHAEL MULLINS MD 36 Transcribed By: SCOTT on 04/06/182136 COPY TO: MARYLU VALDOVINOS MD CHEST SINGLE (PORTABLE) 2018-04-06 17:00:00 [place] [address] Patient Name: STEPHANIE CAMERON MR #: [id number] : 1960 Age/Sex: 57/F Req #: [id number] Adm Physician: Ordered by: MANUELITO FISH MD Report #: [id number] Location: ER Room/Bed: Procedure: [id number] DX/CHEST SINGLE (PORTABLE) Exam Date: Exam Time: REPORT STATUS: Signed PROCEDURE: A single AP view of the chest. COMPARISON: [facility], , CHEST SINGLE (PORTABLE), 02/04/2018, 5:46. INDICATIONS: COUGH, FEVER. POSSIBLE SEIZURE FINDINGS: Lines/tubes: None. Lungs: The lungs are well inflated and grossly clear. There is no evidence of pneumonia or pulmonary edema. Pleura: There is no pleural effusion or pneumothorax. Heart and mediastinum: The heart and the mediastinum are unremarkable. Bones: No acute bony abnormality. IMPRESSION: 1. No acute cardiopulmonary abnormalities. Henrry Grace M.D. Dictated by: Henrry Grace M.D. on 04/06/2018 at 17:00 Electronically approved by: Henrry Grace M.D. on 04/06/2018 at 17:00 Dictated By: HENRRY GRACE MD 1700 Transcribed By: OSCAR on 04/06/18 1700 COPY TO: MANUELITO FISH MD CHEST SINGLE (PORTABLE) 2017-07-15 17:11:00 [place] [address] Patient Name: STEPHANIE CAMERON MR #: [id number] : 1960 Age/Sex: 57/F Req #: [id number] Adm Physician: Ordered by: SIOBHAN PORTER MD Report #: [id number] Location: ER Room/Bed: Procedure: [id number] DX/CHEST SINGLE (PORTABLE) Exam Date: 07/15/17 Exam Time: 1650 REPORT STATUS: Signed PROCEDURE: A single AP view of the chest. COMPARISON: None. INDICATIONS: LOW BLOOD SUGAR FINDINGS: Lines/tubes: None. Lungs: The lungs are well inflated and clear. There is no evidence of pneumonia, mass or pulmonary edema. Pleura: There is no pleural effusion or pneumothorax. Heart and mediastinum: The heart and the mediastinum are unremarkable. Bones: No focal bony abnormality. IMPRESSION: No active disease. Dictated by: Jono Mohan M.D. on 07/15/2017 at 17:11 Electronically approved by: Jono Mohan M.D. on 07/15/2017 at 17:11 Dictated By: JONO MOHAN MD 10 Transcribed By: OSCAR on 07/15/171710 COPY TO: SIOBHAN PORTER MD CHEST SINGLE (PORTABLE) [place] [address] Patient Name: STEPHANIE CAMERON MR #: [id number] : 1960 Age/Sex: 57/F Req #: [id number] Adm Physician: LOLA BOUCHER MD Ordered by: AKBAR MENDEZ SAND MIXER OPERATOR Report #: [id number] Location: [facility] Room/Bed: [facility] 181-1 Procedure: [id number] DX/CHEST SINGLE (PORTABLE) Exam Date: 02/04/18 Exam Time: 0515 REPORT STATUS: Signed EXAMINATION: CHEST SINGLE (PORTABLE) INDICATION: Weakness, follow-up. COMPARISON: 02/03/2018 FINDINGS: TUBES and LINES: None. LUNGS: Lungs are not well inflated. There are bibasilar atelectasis. There is no evidence of pneumonia or pulmonary edema. PLEURA: No pleural effusion or pneumothorax. HEART AND MEDIASTINUM: The cardiomediastinal silhouette is unremarkable. BONES AND SOFT TISSUES: No acute osseous lesion. Soft tissues are unremarkable. UPPER ABDOMEN: No free air under the diaphragm. IMPRESSION: No acute thoracic abnormality. Signed by: Dr. Jackson Rodriguez M.D. on 02/04/2018 6:44 AM Dictated By: JACKSON LAY MD Transcribed By: SCOTT on 02/04/18643 COPY TO: AKBAR MENDEZ NP CHEST SINGLE (PORTABLE) [place] [address] Patient Name: STEPHANIE CAMERON MR #: [id number] : 1960 Age/Sex: 57/F Req #: [id number] Adm Physician: Ordered by: AKBAR MENDEZ NP Report #: [id number] Location: ER Room/Bed: Procedure: [id number] DX/CHEST SINGLE (PORTABLE) Exam Date: 02/03/18 Exam Time: 1105 REPORT STATUS: Signed PROCEDURE: A single AP view of the chest. COMPARISON: None. INDICATIONS: LOW BLOOD SUGAR FINDINGS: Lines/tubes: None. Lungs: The lungs are well inflated. Minimal right basal atelectatic changes. There is no evidence of pneumonia or pulmonary edema. Pleura: There is no pleural effusion or pneumothorax. Heart and mediastinum: The heart and the mediastinum are unremarkable. Bones: No acute bony abnormality. IMPRESSION: 1. Minimal right basal atelectatic changes. No consolidation or effusion. Henrry Grace M.D. Dictated by: Henrry Grace M.D. on 02/03/2018 at 11:37 Electronically approved by: Henrry Grace M.D. on 02/03/2018 at 11:37 Dictated By: HENRRY GRACE MD 1137 Transcribed By: OSCAR on 02/03/18 1137 COPY TO: AKBAR MENDEZ NP SHOULDER LEFT COMPLETE [place] [address] Patient Name: STEPHANIE CAMERON MR #: [id number] : 1960 Age/Sex: 57/F Req #: [id number] Adm Physician: Ordered by: DIMITRI MCFARLAND Report #: [id number] Location: ER Room/Bed: Procedure: [id number] DX/SHOULDER LEFT COMPLETE Exam Date: 11/06/17 Exam [...] TO: DIMITRI MCFARLAND CT CERVICAL SPINE WO [place] [address] Patient Name: STEPHANIE CAMERON MR #: [id number] : 1960 Age/Sex: 57/F Req #: [id number] Adm Physician: Ordered by: WALE HALE MD Report #: [id number] Location: ER Room/Bed: Procedure: [id number] CT/CT CERVICAL SPINE WO Exam Date: 11/06/17 [...] collections. Parenchyma: No abnormal densities. No masses, hemorrhage, acute or chronic cortical vascular insults. Sellar/suprasellar region: No abnormalities. Craniocervical junction: Patent foramen magnum. No Chiari one malformation. Cervical spi ne CT: Fractures: None. Soft tissues: No gross abnormalities. Atlantoaxial articulation: Intact. Alignment: Straightening of the normal lordosis. No scoliosis. Cervicomedullary junction: No abnormalities. Patent foramen magnum. Vertebrae: No [...] TO: WALE HALE MD CT BRAIN WO [place] [address] Patient Name: STEPHANIE CAMERON MR #: [id number] : 1960 Age/Sex: 57/F Req #: [id number] Adm Physician: Ordered by: WALE HALE MD Report #: [id number] Location: ER Room/Bed: Procedure: [id number] CT/CT BRAIN WO Exam Date: 11/06/17 Exam [...] collections. Parenchyma: No abnormal densities. No masses, hemorrhage, acute or chronic cortical vascular insults. Sellar/suprasellar region: No abnormalities. Craniocervical junction: Patent foramen magnum. No Chiari one malformation. Cervical spine CT: Fractures: None. Soft tissues: No gross abnormalities. Atlantoaxial articulation: Intact. Alignment: Straightening of the normal lordosis. No scoliosis. Cervicomedullary junction: No abnormalities. Patent foramen magnum. Vertebrae: No infection or neoplasm. Degenerative changes: Mild disc degeneration at C6-7. Patent canal and foramina. Incidental findings: None. Impression: Head CT: 1. No acute abnormality. Cervical spine CT: 1. No acute abnormalities. 2. Cannot exclude ligament, spinal cord and or vascular abnormalities on the basis of this examination. Signed by: DR Anmol Clniton M.D. on 11/06/2017 1:23 PM Dictated By: ANMOL GARZA MD 1323 Transcribed By: SCOTT on 11/06/17 1323 COPY TO: WALE HALE MD MRI SHOULDER RIGHT [place] [address] Patient Name: STEPHANIE CAMERON MR #: [id number] : 1960 Age/Sex: 57/F Req #: [id number] Adm Physician: Ordered by: CORRIE DEVRIES DO Report #: [id number] Location: MRI Room/Bed: Procedure: [id number] MRI/MRI SHOULDER RIGHT WO Exam Date: 11/05/17 Exam Time: 1335 REPORT STATUS: Signed MRI of the right shoulder without contrast. History: Shoulder pain. Fall. Decreased range of motion. Pain not responding to conservative management. Comparison: Radiographs 08/18/2017 Technique: Coronal PD FS, sagital PD FS, and axial PD and PD FS. Findings: [...] with undersurface spurring and narrowing of the supr aspinatus tendon outlet. There is mild subacromial/subdeltoid bursitis. Signed by: Dr. Maite Escalona M.D. on 11/07/2017 8:57 AM Dictated By: MAITE ESCALONA MD, MD Transcribed By: SCOTT on 11/07/1757 COPY TO: CORRIE DEVRIES DO CT BRAIN WO [place] [address] Patient Name: STEPHANIE CAMERON MR #: [id number] : 1960 Age/Sex: 57/F Req #: [id number] Adm Physician: Ordered by: MARYLU VALDOVINOS MD Report #: [id number] Location: ER Room/Bed: Procedure: [id number] CT/CT BRAIN WO Exam Date: 09/29/17 Exam [...] TO: MARYLU VALDOVINOS MD CHEST SINGLE (PORTABLE) [place] [address] Patient Name: STEPHANIE CAMERON MR #: [id number] : 1960 Age/Sex: 57/F Req #: [id number] Adm Physician: Ordered by: MARYLU VALDOVINOS MD Report #: [id number] Location: ER Room/Bed: Procedure: [id number] DX/CHEST SINGLE (PORTABLE) Exam Date: 09/29/17 Exam Time: 1999 REPORT STATUS: Signed EXAM: CHEST SINGLE (PORTABLE), AP DATE: 09/29/2017 7:31 PM Time stamp on Exam: 7:44 PM INDICATION: Altered mental status COMPARISON: 07/22/2017 FINDINGS: See impression. IMPRESSION: 1. Cardiomediastinal silhouette is normal. No infiltrates or nodules are seen. There is no pneumothorax or effusion. 2. Regional osseous structures are unremarkable. Signed by: Dr. Teo Easley DO on 09/29/2017 8:59 PM Dictated By: TEO EASLEY DO 58 Transcribed By: SCOTT on 09/29/172058 COPY TO: MARYLU VALDOVINOS MD CHEST 2 VIEWS [place] [address] Patient Name: STEPHANIE CAMERON MR #: [id number] : 1960 Age/Sex: 57/F Req #: [id number] Adm Physician: LOLA BOUCHER MD Ordered by: LOLA BOUCHER MD Report #: [id number] Location: MED/SURG3 Room/Bed: 296-1 Procedure: [id number] DX/CHEST 2 VIEWS Exam Date: 08/18/17 Exam [...] disease. Dictated by: Jono Mohan M.D. on 08/18/2017 at 12:28 Electronically approved by: Jono Mohan M.D. on 08/18/2017 at 12:28 Dictated By: JONO MOHAN MD 1228 Transcribed By: OSCAR on 08/18/17 1228 COPY TO: LOLA BOUCHER MD SHOULDER RIGHT [place] [address] Patient Name: STEPHANIE CAMERON MR #: [id number] : 1960 Age/Sex: 57/F Req #: [id number] Adm Physician: LOLA BOUCHER MD Ordered by: LOLA BOUCHER MD Report #: [id number] Location: MED/SURG3 Room/Bed: 296-1 Procedure: [id number] DX/SHOULDER RIGHT COMPLETE Exam Date: 08/18/17 Exam Time: 1200 REPORT STATUS: Signed PROCEDURE: X-RAY RIGHT SHOULDER, COMPLETE COMPARISON: None. INDICATIONS: FALL, RIGHT SHOULDER PAIN FINDINGS: BONES: Normal mineralization. No acute fracture or dislocation. Joint spaces are within normal limits. SOFT TISSUES: Negative. OTHER: Visualized portion of the chest is normal.. CONCLUSION: No acute traumatic pathology. Dictated by: Jono Mohan M.D. on 08/18/2017 at 12:33 Electronically approved by: Jono Mohan M.D. on 08/18/2017 at 12:33 Dictated By: JONO MOHAN MD 1233 Transcribed By: OSCAR on 08/18/17 1233 COPY TO: LOLA BOUCHER MD CHEST 2 VIEWS [place] [address] Patient Name: STEPHANIE CAMERON MR #: [id number] : 1960 Age/Sex: 57/F Req #: [id number] Adm Physician: Ordered by: LUZ SALAS Report #: [id number] Location: ER Room/Bed: Procedure: [id number] DX/CHEST 2 VIEWS Exam Date: 08/16/17 Exam [...] COPY TO: LUZ SALAS CT BRAIN WO [place] [address] Patient Name: STEPHANIE CAMERON MR #: [id number] : 1960 Age/Sex: 57/F Req #: [id number] Adm Physician: Ordered by: JACIEL BECKER MD Report #: [id number] Location: ER Room/Bed: Procedure: [id number] CT/CT BRAIN WO Exam Date: 07/22/17 Exam Time: 1842 REPORT STATUS: Signed EXAMINATION: Head CT without contrast. HISTORY:Dizziness, lightheaded and weakness. COMPARISON:CT brain from 02/14/2017 and MRI brain from 02/21/2017. TECHNIQUE: Multidetector [...] on 07/22/171949 COPY TO: JACIEL BECKER MD [facility] [place] [address] Patient Name: STEPHANIE CAMERON MR #: [id number] : 1960 Age/Sex: 57/F Req #: [id number] Adm Physician: Ordered by: JACIEL BECKER MD Report #: [id number] Location: Room/Bed: Procedure: DX/CHEST SINGLE (PORTABLE) Exam Date: 07/22/17 Exam [...] on 07/22/172003 COPY TO: JACIEL BECKER MD CHEST SINGLE (PORTABLE) [place] [address] Patient Name: STEPHANIE CAMERON MR #: [id number] : 1960 Age/Sex: 57/F Req #: [id number] Adm Physician: Ordered by: SIOBHAN PORTER MD Report #: [id number] Location: ER Room/Bed: Procedure: [id number] DX/CHEST SINGLE (PORTABLE) Exam Date: 07/15/17 Exam Time: 1650 REPORT STATUS: Signed PROCEDURE: A single AP view of the chest. COMPARISON: None. INDICATIONS: LOW BLOOD SUGAR FINDINGS: Lines/tubes: None. Lungs: The lungs are well inflated and clear. There is no evidence of pneumonia, mass or pulmonary edema. Pleura: There is no pleural effusion or pneumothorax. Heart and mediastinum: The heart and the mediastinum are unremarkable. Bones: No focal bony abnormality. IMPRESSION: No active disease. Dictated by: Jono Mohan M.D. on 07/15/2017 at 17:11 Electronically approved by: Jono Mohan M.D. on 07/15/2017 at 17:11 Dictated By: JONO MOHAN MD 171 Transcribed By: OSCAR on 07/15/171 COPY TO: SIOBHAN PORTER MD
--- OUTSIDE RECORDS SUMMARY | 2018-12-22 21:14 | XMS REPORT | Continuity of Care Document ---
Author Author [facility] Interface Address Unknown Phone Unavailable Problems Problem Status Onset Date Classification Date Reported Comments Source ACUTE UTI, SEPSIS Active 08/29/2018 [facility] SOB Active 08/29/2018 [facility] GALUCOMA Active 07/13/2018 [facility] NEAR SYNCOPE, CHEST PAIN Active 06/11/2018 [facility] WEAKNESS Active 06/11/2018 [facility] Type 2 diabetes mellitus with hypoglycemia without coma 11/23/2017 02/23/2018 [facility] HYPOGLYCEMIA ASSOCIATED WITH DIABETES Active 11/16/2017 [facility] HYPOGLYCEMIA ASSOCIATED WITH DIABETES Active 11/16/2017 [facility] HYPOGLYCEMIA Active 11/16/2017 [facility] D47.3 - ESSENTIAL (HEMORRHAGIC) THROMB D Active 12/06/2016 JAMES Pearladena D72.829 - ELEVATED WHITE BLOOD CELL COUN [facility] M54.5 - LOW BACK PAIN Active 12/22/2015 [facility] Type 2 diabetes mellitus with diabetic polyneuropathy 02/23/2018 [facility] half-way use of insulin 02/23/2018 [facility] Unspecified asthma, uncomplicated 02/23/2018 [facility] Obesity, unspecified 02/23/2018 [facility] Major depressive disorder, single episode, unspecified 02/23/2018 [facility] Gastro-esophageal reflux disease without esophagitis 02/23/2018 [facility] Insomnia, unspecified 02/23/2018 [facility] Hypomagnesemia 02/23/2018 [facility] Other bed bug exterminator drug therapy 02/23/2018 [facility] TYPE 2 DIABETES MELLITUS WITH HYPOGLYCEM Active [facility] SYNCOPE AND COLLAPSE Active [facility] CHEST PAIN, UNSPECIFIED Active [facility] URINARY TRACT INFECTION, SITE NOT SPECIF Active [facility] SEPSIS, UNSPECIFIED ORGANISM Active [facility] Medications Medication Details Route Status Patient Instructions Ordering Provider Order Date Source Omeprazole 40 mg, Route: PO, Drug form: DRC, Daily, Dosing Weight 99.5, kg, Start date: 11/18/17 9:00:00 SEWING MACHINE REPAIRER HELPER, Duration: 30 day, Stop date: 12/17/17 9:00:00 SEWING MACHINE REPAIRER HELPER No Longer Active 11/18/2017 [facility] Singulair 10 mg, 1 tab, Route: PO, Drug form: TAB, Daily, Dosing Weight 99.5, kg, Start date: 11/18/17 9:00:00 SEWING MACHINE REPAIRER HELPER, Duration: 30 day, Stop date: 12/17/17 9:00:00 CSTNotes: (Same as:Singulair) No Longer Active 11/18/2017 [facility] Abilify 10 mg, Route: PO, Drug form: TAB, Daily, Dosing Weight 99.5, kg, Start date: 11/18/17 9:00:00 SEWING MACHINE REPAIRER HELPER, Duration: 30 day, Stop date: 12/17/17 9:00:00 SEWING MACHINE REPAIRER HELPER No Longer Active 11/18/2017 [facility] Plavix 75 mg, 1 tab, Route: PO, Drug form: TAB, Daily, Dosing Weight 99.5, kg, Start date: 11/18/17 9:00:00 SEWING MACHINE REPAIRER HELPER, Duration: 30 day, Stop date: 12/17/17 9:00:00 CSTNotes: (Same As: Plavix) No Longer Active 11/18/2017 [facility] Protonix 40 mg, 1 tab, Route: PO, Drug form: ECTAB, Before Breakfast, Start date: 11/18/17 7:30:00 SEWING MACHINE REPAIRER HELPER, Duration: 30 day, Stop date: 12/17/17 7:30:00 CSTNotes: Tablet should not be chewed or crushed. (Same as: Protonix) No Longer Active 11/18/2017 [facility] Fluoxetine 40 mg, 4 cap, Route: PO, Drug form: CAP, QPM, Dosing Weight 99.5, kg, Start date: 11/17/17 17:00:00 SEWING MACHINE REPAIRER HELPER, Duration: 30 day, Stop date: 12/16/17 17:00:00 CSTNotes: (Same as: Prozac) Inactive 11/17/2017 [facility] have [facility] verify & bar-code pt own Abilify have [facility] verify & bar-code pt own Abilify, reminder, Drug form: MISC, Route: MISC, QSHIFT, 11/17/17 16:00:00 SEWING MACHINE REPAIRER HELPER, Duration: 30 day, Stop date: 12/17/17 8:00:00 SEWING MACHINE REPAIRER HELPER Inactive 11/17/2017 [facility] gabapentin 300 MG Oral Capsule 300 mg, 1 cap, Route: PO, Drug form: CAP, TID, Dosing Weight 99.5, kg, Start date: 11/17/17 13:00:00 SEWING MACHINE REPAIRER HELPER, Duration: 30 day, Stop date: 12/17/17 9:00:00 CSTNotes: (Same as: Neurontin) Inactive 11/17/2017 [facility] Magnesium Sulfate 2 gm, 50 mL, Route: IVPB, Drug form: INJ, ONCE, Dosing Weight 99.5, kg, Start date: 11/17/17 12:44:00 SEWING MACHINE REPAIRER HELPER, Stop date: 11/17/17 12:44:00 CSTNotes: WASTE: F/P - Sink; E - Municipal Trash Bin Inactive 11/17/2017 [facility] Humalog 100 units/mL 5 unit, SUB-Q, TID-Before Meals, # 10 mL, 0 Refill(s), other Active 11/17/2017 [facility] 3 ML insulin detemir 100 UNT/ML Prefilled Syringe [Levemir] 16 unit, SUB-Q, BID, # 10 mL, 0 Refill(s), other Active 11/17/2017 [facility] Acetaminophen 325 MG / Hydrocodone Bitartrate 10 MG Oral Tablet 1 tab, Route: PO, Drug Form: TAB, Dosing Weight 99.5, kg, Q6H, PRN Pain Score 4-6, Start date: 11/17/17 3:25:00 SEWING MACHINE REPAIRER HELPER, Duration: 30 day, Stop date: 12/17/17 3:24:00 CSTNotes: Do not exceed 4gm/day of acetaminophen. (Same as: [place] 325/10) Inactive 11/17/2017 [facility] Acetaminophen 325 MG / Hydrocodone Bitartrate 5 MG Oral Tablet 1 tab, PO, Q4H, PRN Pain Score 4-6, 0 Refill(s) Active 11/17/2017 [facility] Dextrose 5% with 0.45% NaCl IV 1,000 mL 1,000 mL, Rate: 75 ml/hr, Infuse over: 13.3 hr, Route: IV, Dosing Weight 99.5 kg, Total Volume: 1,000, Start date: 11/17/17 1:23:00 SEWING MACHINE REPAIRER HELPER, Stop date: 12/17/17 1:22:00 SEWING MACHINE REPAIRER HELPER, 2.15, m2 Inactive 11/17/2017 [facility] Acetaminophen 650 mg, Route: PO, Drug form: TAB, ONCE, Dosing Weight 90.909, kg, Priority: STAT, Start date: 11/17/17 0:20:00 SEWING MACHINE REPAIRER HELPER, Stop date: 11/17/17 0:20:00 SEWING MACHINE REPAIRER HELPER Inactive 11/17/2017 [facility] Dextrose 10% in Water IV 1,000 mL 1,000 mL, Rate: 100 ml/hr, Infuse over: 10 hr, Route: IV, Dosing Weight 90.909 kg, Total Volume: 1,000, Start date: 11/16/17 22:00:00 SEWING MACHINE REPAIRER HELPER, Duration: 30 day, Stop date: 12/16/17 21:59:00 SEWING MACHINE REPAIRER HELPER, 2.06, m2 No Longer Active 11/17/2017 [facility] Ondansetron 4 mg, 2 mL, Route: IVP, Drug form: INJ, Q6H, Dosing Weight 90.909, kg, PRN Nausea & Vomiting, Start date: 11/16/17 21:40:00 SEWING MACHINE REPAIRER HELPER, Duration: 30 day, Stop date: 12/16/17 21:39:00 CSTNotes: (Same as: Luis) MEDICATION WASTE Product Size: 4 mg Product Wasted: ___ mg No Longer Active 11/17/2017 [facility] Acetaminophen 325 mg, 1 tab, Route: PO, Drug form: TAB, Q4H, Dosing Weight 90.909, kg, PRN Pain Score 4-6, Start date: 11/16/17 21:40:00 SEWING MACHINE REPAIRER HELPER, Duration: 30 day, Stop date: 12/16/17 21:39:00 CSTNotes: Do not exceed 4 gm/day. (Same as: Tylenol) No Longer Active 11/17/2017 [facility] D10W 980.75 mL + sodium chloride 23.4% IV 77 mEq 980.75 mL, Rate: 100 ml/hr, Infuse over: 10 hr, Route: IV, Dosing Weight 90.909 kg, Total Volume: 1,000, Start date: 11/16/17 21:18:00 SEWING MACHINE REPAIRER HELPER, Duration: 30 day, Stop date: 12/16/17 21:17:00 SEWING MACHINE REPAIRER HELPER, 2.06, m2 Inactive 11/17/2017 [facility] Trazodone Hydrochloride 100 MG Oral Tablet 200 mg=2 tab, PO, Bedtime, PRN Insomnia, 0 Refill(s) No Longer Active 11/17/2017 [facility] clonazePAM 1 mg oral tablet 1 mg=1 tab, PO, TID, PRN Anxiety, 0 Refill(s) Active 11/17/2017 [facility] FLUoxetine 40 mg oral capsule 40 mg=1 cap, PO, QPM, 0 Refill(s) Active 11/17/2017 [facility] clopidogrel 75 MG Oral Tablet [Plavix] 75 mg=1 tab, PO, Daily, 0 Refill(s) Active 11/17/2017 [facility] montelukast 10 MG Oral Tablet [Singulair] 10 mg=1 tab, PO, Daily, 0 Refill(s) Active 11/17/2017 [facility] omeprazole 40 mg oral delayed release capsule 40 mg=1 cap, PO, Daily, 0 Refill(s) Active 11/17/2017 [facility] 3 ML insulin detemir 100 UNT/ML Prefilled Syringe [Levemir] 32 unit, SUB-Q, BID, 0 Refill(s) No Longer Active 11/17/2017 [facility] Humalog 100 units/mL 10 unit, SUB-Q, TID-Before Meals, 0 Refill(s) No Longer Active 11/17/2017 [facility] gabapentin 300 MG Oral Capsule 300 mg=1 cap, PO, TID, 0 Refill(s) Active 11/17/2017 [facility] Albuterol 0.83 MG/ML Inhalant Solution 2.5 mg=3 mL, NEB, Daily, 0 Refill(s) Active 11/17/2017 [facility] aripiprazole 10 MG Oral Tablet [Abilify] 10 mg=1 tab, PO, Daily, 0 Refill(s) Active 11/17/2017 [facility] d50 syringe 50 mL, Route: IVP, Dosing Weight 90.909, kg, ONCE, STAT, Start date: 11/16/17 19:14:00 SEWING MACHINE REPAIRER HELPER, Stop date: 11/16/17 19:14:00 SEWING MACHINE REPAIRER HELPER, 25 ml=12.5 gm Inactive 11/17/2017 [facility] Sodium Chloride 0.9% (Bolus) IV 2,000 mL, 2,000 ml/hr, Infuse Over: 1 hr, Route: IV, ONCE, Priority: STAT, Dosing Weight 90.909 kg, Start date: 11/16/17 19:04:00 SEWING MACHINE REPAIRER HELPER, Stop date: 11/16/17 19:04:00 SEWING MACHINE REPAIRER HELPER Inactive 11/17/2017 [facility] D5W 1/2NS 1,000 mL 1,000 mL, Rate: 100 ml/hr, Infuse over: 10 hr, Route: IV, Total Volume: 1,000, Priority: STAT, Start date: 11/16/17 18:52:00 SEWING MACHINE REPAIRER HELPER, Duration: 30 day, Stop date: 12/16/17 18:51:00 SEWING MACHINE REPAIRER HELPER Inactive 11/17/2017 [facility] Allergies, Adverse Reactions, Alerts Substance Category Reaction Severity Reaction type Status Date Reported Comments Source sulfa drugs Assertion Drug allergy Active [facility] aspirin Assertion Drug allergy Active [facility] iodine Assertion Drug allergy Active [facility] NSAIDs Assertion Drug allergy Active [facility] Immunizations Immunization Date Given Site Status [...] Murphy Conti DO 08/29/18 18:01 FINAL REPORT [facility] Chest 2 views DX Chest 2 views DX Study: Chest 2 views DX 08/29/2018 1:23 PM CDT Patient Name: STEPHANIE CAMERON MR: [id number] : 1960; Age: 58 years y/o Female [...] Jacob Urrutia MD 08/29/18 14:27 FINAL REPORT [facility] Carotid artery Doppler bilat US Carotid artery Doppler bilat US Patient Name: STEPHANIE CAMERON : 1960; Age: 58 years y/o Female MR: [id number] CAROTID DOPPLER Clinical Indication: Syncope and collapse [...] Luciano Glynn MD 06/11/18 22:43 FINAL REPORT [facility] wo contrast CT Brain wo contrast [...] Murphy Conti DO 06/11/18 20:42 FINAL REPORT [facility] 1view DX Chest 1view DX Patient Name: STEPHANIE CAMERON : 1960; Age: 58 years y/o Female MR: [id number] Study: Chest 1view DX dated 06/11/2018. Clinical Indication: - sob; Comparison: 11/16/2017 There is a right posterior 4th rib fracture, anterior right 3rd rib fracture and anterior right 5th rib fracture age uncertain. Cardiac and mediastinal structures are stable. No focal infiltrates within the lungs, no edema and no pneumothorax. SL: [id number] 06/11/2018 - - Read by: Magno Zhu MD Dictated Date/time: 06/11/18 15:06 Electronically Signed by: Magno Zhu MD 06/11/18 15:08 FINAL REPORT [facility] CHEM PANEL Magnesium Lvl 1.6 mg/dL 1.8 - 2.4 11/17/2017 [facility] CHEM PANEL eGFR 95 mL/min/1.73m2 11/17/2017 [...] A/G Ratio 0.8 0.7 - 1.6 11/17/2017 [facility] CHEM PANEL ALT 8 unit/L 0 [...] Lvl 1.4 mMol/L 0.5 - 2.2 11/17/2017 [facility] HEMATOLOGY Basophils # 0.1 K/CMM 0.0 - 0.2 11/17/2017 [facility] HEMATOLOGY Eosinophils # 0.1 K/CMM 0.0 - 0.5 11/17/2017 [facility] HEMATOLOGY Monocytes # 0.6 K/CMM 0.0 - 0.8 11/17/2017 [facility] HEMATOLOGY Segs-Bands # 6.4 K/CMM 1.5 - 8.1 11/17/2017 [facility] HEMATOLOGY Basophils 0.8 % 0.0 - 1.0 11/17/2017 [facility] HEMATOLOGY Eosinophils 1.0 % 0.0 - 4.0 11/17/2017 [facility] HEMATOLOGY Monocytes 5.3 % 2.0 - 12.0 11/17/[address] [facility] Lymphocytes 32.3 % 20.0 - 40.0 11/17/[address] [facility] Segs 60.6 % 45.0 - 75.0 11/17/2017 [facility] Lymphocytes # 3.4 K/CMM 1.0 - 5.5 11/17/2017 [facility] Platelet 352 K/CMM 133 - 450 11/17/[address] [facility] RDW 16.0 % 11.5 - 14.5 11/17/[address] [facility] MPV 7.3 fL 7.4 - 10.4 11/17/[address] [facility] MCHC 32.3 g/dL 32.0 - 36.0 11/17/[address] [facility] MCH 28.1 pg 27.0 - 31.0 11/17/[address] [facility] Hct 31.9 % 36.0 - 48.0 11/17/[address] [facility] Hgb 10.3 g/dL 12.0 - 16.0 11/17/[address] [facility] RBC 3.67 M/CMM 4.20 - 5.40 11/17/2017 [facility] HEMATOLOGY WBC 10.6 K/CMM 3.7 - 10.4 11/17/[address] [facility] MCV 86.9 fL 80.0 - 98.0 11/17/2017 [facility] URINE AND STOOL UA Urobilinogen <=1.0 mg/dL 0.1 - 1.0 11/17/2017 [facility] URINE AND STOOL UA [place] Yeast Occasional /HPF None Seen /HPF 11/17/2017 [facility] URINE AND STOOL UA Bacteria Occasional [...] STOOL UA Spec Grav 1.006 <=1.030 11/17/2017 [facility] URINE AND STOOL UA Turbidity Slight *ABN* (11/16/17 11:20 PM) Clear 11/17/2017 [facility] URINE AND STOOL UA Color Yellow *NA* (11/16/17 11:20 PM) Yellow 11/17/2017 [facility] URINE AND STOOL UA Nitrite Negative (11/16/17 11:20 PM) Negative 11/17/2017 [facility] URINE AND STOOL UA Blood Negative (11/16/17 11:20 PM) Negative 11/17/2017 [facility] URINE AND STOOL UA Bili Negative *NA* (11/16/17 11:20 PM) Negative 11/17/2017 [facility] CHEM PANEL Lactic Acid Lvl 2.7 mMol/L 0.5 - 2.2 11/17/2017 [facility] CARDIAC ENZYMES Total CK 83 unit/L 12 - 191 11/17/2017 [facility] CARDIAC ENZYMES CK MB 1.1 ng/mL 0.5 - 3.6 11/17/2017 [facility] CARDIAC ENZYMES Troponin-I null 0.00 - 0.40 11/17/2017 [facility] CARDIAC ENZYMES CK MB Index 1.3 0.0 - 2.5 11/17/2017 [facility] CHEM PANEL eGFR 60 mL/min/1.73m2 11/17/2017 [...] Lvl 2.7 g/dL 3.5 - 5.0 11/17/2017 [facility] CHEM PANEL AST 9 unit/L 0 [...] Lvl 107 mg/dL 70 - 99 11/17/2017 [facility] HEMATOLOGY PT 12.9 s 12.0 - 14.7 11/17/2017 [facility] HEMATOLOGY INR 0.97 0.85 - 1.17 11/17/2017 [facility] HEMATOLOGY PTT 32.6 s 22.9 - 35.8 11/17/2017 [facility] HEMATOLOGY MCH 28.7 pg 27.0 - 31.0 11/17/2017 [facility] HEMATOLOGY MCV 87.8 fL 80.0 - 98.0 11/17/2017 [facility] HEMATOLOGY Hct 34.6 % 36.0 - 48.0 11/17/2017 [facility] HEMATOLOGY RBC 3.94 M/CMM 4.20 - 5.40 11/17/2017 [facility] HEMATOLOGY WBC 10.3 K/CMM 3.7 - 10.4 11/17/2017 [facility] Hgb 11.3 g/dL 12.0 - 16.0 11/17/[address] [facility] MPV 7.3 fL 7.4 - 10.4 11/17/[address] [facility] MCHC 32.7 g/dL 32.0 - 36.0 11/17/[address] [facility] Platelet 369 K/CMM 133 - 450 11/17/2017 [facility] HEMATOLOGY RDW 15.9 % 11.5 - 14.5 11/17/2017 [facility] HEMATOLOGY Segs-Bands # 6.8 K/CMM 1.5 - 8.1 11/17/[address] [facility] Lymphocytes # 2.7 K/CMM 1.0 - 5.5 11/17/2017 [facility] HEMATOLOGY Eosinophils 0.9 % 0.0 - 4.0 11/17/2017 [facility] HEMATOLOGY Basophils 0.7 % 0.0 - 1.0 11/17/2017 [facility] HEMATOLOGY Monocytes 6.6 % 2.0 - 12.0 11/17/2017 [facility] HEMATOLOGY Lymphocytes 25.7 % 20.0 - 40.0 11/17/2017 [facility] HEMATOLOGY Segs 66.1 % 45.0 - 75.0 11/17/2017 [facility] HEMATOLOGY Basophils # 0.1 K/CMM 0.0 - 0.2 11/17/2017 [facility] HEMATOLOGY Eosinophils # 0.1 K/CMM 0.0 - 0.5 11/17/2017 [facility] HEMATOLOGY Monocytes # 0.7 K/CMM 0.0 - 0.8 11/17/2017 [facility] Brain wo contrast CT Brain wo [...] consultation is suggested to better assess. SL: [id number] 11/16/2017 - - Read by: Carlin Trent MD Dictated Date/time: 11/17/17 00:19 Electronically Signed by: Carlin Trent MD 11/17/17 00:20 FINAL REPORT - - Read by: Leroy Chavez MD Dictated Date/time: 11/17/17 00:06 Electronically Signed by: Leroy Chavez MD 11/17/17 00:10 FINAL REPORT [facility] Chest 1view DX Chest 1view DX EXAM: XR CHEST 1 VIEW DATE: 11/16/2017 6:52 PM SEWING MACHINE REPAIRER HELPER INDICATION: Weakness. COMPARISON: CT chest dated 12/09/2017 [...] lung volumes without acute cardiopulmonary abnormality. SL: [id number] 11/16/2017 - - Read by: Magno Scruggs [...] Comments Source Systolic (mm Hg) 130 11/17/2017 [facility] Diastolic (mm Hg) 60 11/17/2017 [facility] Respitory Rate 14 11/17/2017 [facility] Systolic (mm Hg) 143 11/17/2017 [facility] Diastolic (mm Hg) 82 11/17/2017 [facility] Respitory Rate 27 11/17/2017 [facility] Respitory Rate 20 11/17/2017 [facility] Systolic (mm Hg) 125 11/17/2017 [facility] Diastolic (mm Hg) 58 11/17/2017 [facility] Temperature Oral (F) 98.4 F 11/17/2017 [facility] Temperature Oral (F) 98.6 F 11/17/2017 [facility] Temperature Oral (F) 98.1 F 11/17/2017 [facility] Height 162.56 cm 11/17/2017 [facility] Weight 99.5 11/17/2017 [facility] BMI Calculated 37.65 11/17/2017 [facility] Height 162.56 cm 11/17/2017 [facility] Heart Rate 84 11/17/2017 [facility] BMI Calculated 34.4 11/17/2017 [facility] Weight 90.909 11/17/2017 [facility] Encounters Location Location Details Encounter Type Encounter Number Reason For Visit Attending Provider ADM Date DC Date Status Source [facility] [id number] Juan Rocha II 06/24/2015 06/25/2015 JAMES Bird [facility] [id number] [facility] Hamid 12/22/2015 12/23/2015 LEANNA Bird [facility] [id number] Carrington Kennedy 12/09/2016 12/10/2016 LEANNA Bird [facility] Observation [id number] Akash Garcia 11/17/2017 11/17/2017 [facility] Procedures Procedure Code Date Perfomer Comments Source Abdominal hysterectomy [id number] [facility] Foot joint operations [id number] [facility]
--- NOTE | 2018-12-22 22:41 | Diagnostic Imaging Report ---
Lumbar Spine Radiographs: 3 views HISTORY: Pain COMPARISON: None available. DISCUSSION: Some of the osseous structures are partially obscured by stool and bowel gas. There are five non-rib bearing lumbar vertebral bodies. The alignment of the spine is within normal limits. No displaced fracture or compression deformity is identified. Vertebral body heights are maintained. Vascular calcifications. IMPRESSION: No acute radiographic abnormality. Signed by: Dr. Vladimir Mai MD on 12/22/2018 10:37 PM
--- NOTE | 2018-12-22 22:41 | Diagnostic Imaging Report ---
COCCYX - 2 views HISTORY: Pain COMPARISON: None available. FINDINGS: See impression. IMPRESSION: Very limited study due to overlying bowel gas and soft tissue attenuation. No definite evidence of acute displaced fracture. Signed by: Dr. Vladimir Mai MD on 12/22/2018 10:38 PM
== END 2018-12-22 23:27 | disposition home or self-care (01) ==
LOC: ER 21:11
DX: M54.5 Low back pain (principal); S39.012A Strain of muscle, fascia and tendon of lower back, initial encounter; S33.5XXA Sprain of ligaments of lumbar spine, initial encounter; W01.0XXA Fall on same level from slipping, tripping and stumbling without subsequent striking against object, initial encounter; Y92.008 Other place in unspecified non-institutional (private) residence as the place of occurrence of the external cause; I10 Essential (primary) hypertension; E11.9 Type 2 diabetes mellitus without complications; F41.9 Anxiety disorder, unspecified; E78.00 Pure hypercholesterolemia, unspecified
CPT/HCPCS: 72100; 72220; 99282

== ENCOUNTER 2019-02-21 13:26 | Observation (INO) | payer OTHER ==
[~2019-02-21] VITALS: Ht 153.4 cm; Wt 108.4 kg
[2019-02-21 14:06] LABS: BASOPHILS # (AUTO) 0.1 (0.0-0.1); BASOPHILS % 0.6 % (0.0-1.0); EOSINOPHILS # (AUTO) 0.1 (0.0-0.4); HEMATOCRIT 37.2 % (34.2-44.1); HEMOGLOBIN 11.2 g/dL (12.0-16.0); MEAN CORPUSCULAR HEMOGLOBIN 25.9 pg (28-32); MEAN CORPUSCULAR HGB CONC 30.1 g/dL (31-35); MEAN CORPUSCULAR VOLUME 86.1 fL (81-99); MONOCYTES # (AUTO) 0.6 (0.2-0.8); MONOCYTES % 5.2 % (4.4-11.3); NEUTROPHILS # (AUTO) 6.8 (2.1-6.9); NEUTROPHILS % 58.3 % (38.7-80.0); PLATELET COUNT 468 x10e3/uL (140-360); RED BLOOD COUNT 4.32 x10e6/uL (3.6-5.1); RED CELL DISTRIBUTION WIDTH 17.2 % (11.7-14.4)
[2019-02-21 14:17] LABS: INR 0.85; PROTHROMBIN TIME 12.1 seconds (11.9-14.5)
[2019-02-21 14:25] LABS: ALANINE AMINOTRANSFERASE 12 IU/L (0-55); ALBUMIN 3.2 g/dL (3.5-5.0); ALBUMIN/GLOBULIN RATIO 0.8 (0.8-2.0); ALKALINE PHOSPHATASE 175 IU/L (40-150); ANION GAP 14.7 mmol/L (8-16); BLOOD UREA NITROGEN 28 mg/dL (7-26); BUN/CREATININE RATIO 23 (6-25); CALCIUM 9.7 mg/dL (8.4-10.2); CARBON DIOXIDE 21 mmol/L (22-29); CHLORIDE 102 mmol/L (98-107); CREATINE KINASE 47 IU/L (29-168); CREATININE, SERUM 1.24 mg/dL (0.57-1.11); EST GLOMERULAR FILTRATION RATE 45 ML/MIN (60-); SODIUM 132 mmol/L (136-145)
[2019-02-21 14:27] LABS: GLUCOSE 456 mg/dL (74-118); POTASSIUM 5.7 mmol/L (3.5-5.1)
--- NOTE | 2019-02-21 14:31 | Diagnostic Imaging Report ---
EXAMINATION: CHEST 2 VIEWS INDICATION: Chest pain. COMPARISON: None FINDINGS: TUBES and LINES: None. LUNGS: Lungs are not well inflated. Lungs are clear. There is no evidence of pneumonia or pulmonary edema. PLEURA: No pleural effusion or pneumothorax. HEART AND MEDIASTINUM: The cardiomediastinal silhouette is unremarkable. BONES AND SOFT TISSUES: No acute osseous abnormality. UPPER ABDOMEN: No free air under the diaphragm. IMPRESSION: No acute radiographic abnormality. Signed by: Dr. Brock Chavez MD on 02/21/2019 2:28 PM
[2019-02-21] MEDS ORDERED: SODIUM CHLORIDE 0.9% 1000ML 1,000 ML IV STA (16:59)
[2019-02-21] MEDS ORDERED: PANTOPRAZOLE 40 MG 10ML VIAL IV STA (16:59)
[2019-02-21] MEDS ORDERED: ONDANSETRON HCL INJ 2MG/ML 2ML 2 MG/ML VIAL IV STA (16:59)
[2019-02-21] MEDS ORDERED: MORPHINE SULFATE INJ 4 MG/ML INJ 1ML IV ONE (17:00)
[2019-02-21] MEDS ORDERED: INSULIN REGULAR, HUMAN 100 UNIT/1 ML 3ML VIAL IV ONE (17:15)
[2019-02-21 17:42] LABS: BILIRUBIN,URINE NEGATIVE (NEGATIVE); CLARITY,URINE CLEAR (CLEAR); COLOR,URINE YELLOW (YELLOW); KETONES,URINE NEGATIVE (NEGATIVE); LEUKOCYTE ESTERASE ,URINE NEGATIVE (NEGATIVE); NITRITE,URINE NEGATIVE (NEGATIVE); PROTEIN,URINE DIPSTICK NEGATIVE (NEGATIVE); URINE UROBILINOGEN 0.2 mg/dL (0.2 - 1)
[2019-02-21 17:57] LABS: EPITHELIAL CELLS,URINE RARE /LPF
--- NOTE | 2019-02-21 19:08 | NUR ---
walking rounds with DEONDRE Monique. Patient in no distress at this time.
[2019-02-21] MEDS ORDERED: DEXTROSE 50% SYRINGE 50 ML IV PRN (19:45)
[2019-02-21] MEDS: SODIUM CHLORIDE 0.9% 1000ML 1,000 ML IV SCH (20:35)
[2019-02-21] MEDS: FAMOTIDINE 20 MG/2 ML VIAL IV SCH (20:35)
[2019-02-21] MEDS ORDERED: TYLENOL PM PO (20:58)
[2019-02-21] MEDS ORDERED: ZOFRAN4 MG SL (20:58)
[2019-02-21] MEDS ORDERED: LOPERAMIDE2 MG PO (20:58)
[2019-02-21] MEDS ORDERED: CLONAZEPAM1 MG PO (20:58)
[2019-02-21] MEDS ORDERED: HYDROXYZINE HCL25 MG PO (20:58)
[2019-02-21] MEDS ORDERED: [UNRECOGNIZED DRUG - OTHER] PO (20:58)
[2019-02-21] MEDS ORDERED: NORCO 5-325 TA1 EACH PO (20:58)
[2019-02-21] MEDS ORDERED: ACETAMINOPHEN325 M1 PO (20:58)
[2019-02-21] MEDS ORDERED: TRAZODONE HCL50 MG PO (20:59)
[2019-02-21] MEDS ORDERED: PROZAC20 MG PO (21:02)
[2019-02-21] MEDS ORDERED: ATORVASTATIN CA20 MG PO (21:02)
[2019-02-21] MEDS ORDERED: REMERON15 MG PO (21:02)
[2019-02-21] MEDS ORDERED: WELLBUTRIN SR150 MG PO (21:02)
[2019-02-21] MEDS ORDERED: SINGULAIR10 MG PO (21:02)
[2019-02-21] MEDS ORDERED: NICOTINE PATCH1 EAC1 TOP (21:02)
[2019-02-21] MEDS ORDERED: LISINOPRIL2.5 MG PO (21:05)
[2019-02-21] MEDS ORDERED: METFORMIN HCL500 MG PO (21:05)
[2019-02-21] MEDS ORDERED: GABAPENTIN400 MG PO (21:05)
[2019-02-21] MEDS ORDERED: BUSPIRONE HCL5 MG PO (21:07)
[2019-02-21] MEDS ORDERED: ADVAIR 100-501 EACH INH (21:07)
[2019-02-21] MEDS ORDERED: AMMONIUM LACTATE1 ML TOP (21:07)
[2019-02-21] MEDS ORDERED: HUMALOG100 UNIT/3 SQ (21:12)
[2019-02-21] MEDS: INSULIN LISPRO 100 UNIT/1 ML 3ML VIAL SQ SCH (21:34)
[2019-02-21 21:54] VITALS: BP 137/63
[2019-02-21 22:13] LABS: CREATINE KINASE 32 IU/L (29-168)
[2019-02-21] MEDS: MORPHINE SULFATE INJ 4 MG/ML INJ 1ML IV PRN (22:33)
[2019-02-21] MEDS: ONDANSETRON HCL INJ 2MG/ML 2ML 2 MG/ML VIAL IV PRN (22:40)
[2019-02-21 22:46] VITALS: BP 137/63
[2019-02-22] MEDS: ONDANSETRON HCL INJ 2MG/ML 2ML 2 MG/ML VIAL IV PRN ×6 (02:40→23:55)
[2019-02-22] MEDS: MORPHINE SULFATE INJ 4 MG/ML INJ 1ML IV PRN ×6 (02:41→23:55)
[2019-02-22 04:00] VITALS: BP 129/64
[2019-02-22 06:10] LABS: BASOPHILS # (AUTO) 0.1 (0.0-0.1); BASOPHILS % 0.8 % (0.0-1.0); EOSINOPHILS # (AUTO) 0.2 (0.0-0.4); EOSINOPHILS % 1.7 % (0.0-6.0); HEMOGLOBIN 10.2 g/dL (12.0-16.0); LYMPHOCYTES # (AUTO) 4.6 (1.0-3.2); LYMPHOCYTES % 41.7 % (18.0-39.1); MEAN CORPUSCULAR HEMOGLOBIN 26.2 pg (28-32); MEAN CORPUSCULAR VOLUME 87.2 fL (81-99); MONOCYTES # (AUTO) 0.7 (0.2-0.8); MONOCYTES % 5.9 % (4.4-11.3); NEUTROPHILS # (AUTO) 5.4 (2.1-6.9); NEUTROPHILS % 49.3 % (38.7-80.0); PLATELET COUNT 369 x10e3/uL (140-360); RED CELL DISTRIBUTION WIDTH 17.3 % (11.7-14.4)
[2019-02-22 06:29] LABS: CREATINE KINASE 33 IU/L (29-168)
[2019-02-22 06:57] LABS: ALANINE AMINOTRANSFERASE 11 IU/L (0-55); ALBUMIN 2.9 g/dL (3.5-5.0); ALBUMIN/GLOBULIN RATIO 0.9 (0.8-2.0); ALKALINE PHOSPHATASE 152 IU/L (40-150); BLOOD UREA NITROGEN 23 mg/dL (7-26); BUN/CREATININE RATIO 28 (6-25); CARBON DIOXIDE 22 mmol/L (22-29); CHLORIDE 106 mmol/L (98-107); CREATININE, SERUM 0.83 mg/dL (0.57-1.11); EST GLOMERULAR FILTRATION RATE > 60 ML/MIN (60-); GLUCOSE 241 mg/dL (74-118); SODIUM 136 mmol/L (136-145)
[2019-02-22] MEDS: SODIUM CHLORIDE 0.9% 1000ML 1,000 ML IV SCH ×3 (07:01→17:43)
[2019-02-22] MEDS: INSULIN LISPRO 100 UNIT/1 ML 3ML VIAL SQ SCH ×4 (08:23→21:00)
[2019-02-22 08:37] VITALS: BP 126/60
[2019-02-22 08:40] VITALS: BP 126/60
[2019-02-22] MEDS: FAMOTIDINE 20 MG/2 ML VIAL IV SCH ×2 (08:40→19:51)
--- NOTE | 2019-02-22 10:07 | NUR ---
CASE MANAGEMENT ASSESSMENT Fleet Assistant to bedside to discuss plan of care with patient/family. CM/SW role and care transitions discussed. Anticipated discharge plan discussed along with duration of care. CM/SW discussed patients right to make decisions in care. CM/SW work hours given. Patient lives: in assisted living at [facility] Admit/Transfer: thru ED Hospital/ER visits since last admit: 1; states was last hospitalized beginning of January POA/Emergency contact: sister Natalie Michele [phone] Current/Previous Home Health: none PCP/Follow-up Care: Dr. Daren Dupree - PCP; advised pt to follow up with MD within 7 days of discharge. Pt states she will call and make an appointment Current/Previous DME: wheelchair - states she only uses it PRN; states she's able to ambulate Medications (referring to index hospitalization or the first time you were in the hospital) a. Were changes made in your medications when you were in the hospital on January 2019? no b. Did you understand the changes? n/a c. Were you able to obtain your new medications right away? n/a d. Were you able to take your medications like the doctor wanted you to? n/a e. Did the hospital give you an accurate, easy to understand list of medications when you left? n/a Scale of 1-10 how comfortable does patient feel with disease management in outpatient settin Other Services: none Employment Status: unemployed Areas of Concerns: chest pain, copd Referral Needs: none Education Needs: medical management IMM/HARRIS given and signed (if applicable): n/a Goal for discharge: back to [facility] CM/SW left business card at the bedside with contact information. Name and number was also written on the patients whiteboard. Patient verbalized understanding of discussion. CM will follow-up with ongoing discharge and transition of care needs.
[2019-02-22 10:11] LABS: BLAST CELLS % MANUAL 1; EOSINOPHILS % (MANUAL) 1 % (0-7); LYMPHOCYTES % (MANUAL) 38 % (19-48); MONOCYTES % (MANUAL) 6 % (3.4-9.0); NEUTROPHILS % (MANUAL) 47 % (40-74)
[2019-02-22 10:13] LABS: PLATELET ESTIMATE SLIGHTLY INCREASED; PLATELET MORPHOLOGY COMMENT NORMAL; RBC MORPHOLOGY COMMENT NORMAL
[2019-02-22 10:14] LABS: ANISOCYTOSIS SLIGHT; HYPOCHROMASIA SLIGHT; POIKILOCYTOSIS SLIGHT
[2019-02-22] MEDS ORDERED: CLONAZEPAM 1 MG TAB PO PRN (11:30)
[2019-02-22] MEDS ORDERED: HYDROCODONE/APAP 5MG-325MG TAB PO PRN (11:30)
[2019-02-22] MEDS ORDERED: HYDROXYZINE HCL 25 MG TAB PO PRN ×2 (11:30→21:00)
[2019-02-22] MEDS ORDERED: ACETAMINOPHEN 325 MG TAB PO PRN (11:30)
[2019-02-22 12:08] VITALS: BP 129/62
[2019-02-22] MEDS: GABAPENTIN 400 MG CAP PO SCH ×2 (15:03→21:41)
[2019-02-22 15:51] LABS: CREATINE KINASE 40 IU/L (29-168)
[2019-02-22 16:40] VITALS: BP 126/76
[2019-02-22] MEDS: BUSPIRONE HCL 5 MG TAB PO SCH (16:42)
[2019-02-22] MEDS: METFORMIN HCL 500 MG TAB PO SCH (16:42)
[2019-02-22] MEDS ORDERED: FLUOXETINE HCL 20 MG CAP PO SCH (17:00)
[2019-02-22] MEDS ORDERED: SALMETEROL/FLUTICASONE 100/50 INH SCH (19:00)
[2019-02-22 20:37] VITALS: BP 147/75
[2019-02-22] MEDS ORDERED: QUETIAPINE FUMARATE 100 MG TAB PO SCH (21:00)
[2019-02-22] MEDS ORDERED: MIRTAZAPINE 15 MG TAB PO SCH (21:00)
[2019-02-22] MEDS ORDERED: BUPROPION HCL SR 150 MG TAB PO SCH (21:00)
[2019-02-22] MEDS ORDERED: TRAZODONE HCL 50 MG TAB PO SCH (21:00)
[2019-02-22] MEDS ORDERED: ATORVASTATIN 20 MG TAB PO SCH (21:00)
[2019-02-22] MEDS ORDERED: ATORVASTATIN 40 MG TAB PO SCH (21:00)
[2019-02-23 00:48] VITALS: BP 127/84
[2019-02-23 04:32] VITALS: BP 113/59
[2019-02-23] MEDS ORDERED: PANTOPRAZOLE SOD 40 MG TABEC PO SCH (07:30)
[2019-02-23 08:23] VITALS: BP 116/58
[2019-02-23] MEDS: INSULIN LISPRO 100 UNIT/1 ML 3ML VIAL SQ SCH ×3 (08:30→16:30)
[2019-02-23] MEDS: FAMOTIDINE 20 MG/2 ML VIAL IV SCH (08:45)
[2019-02-23] MEDS ORDERED: METOPROLOL SUCCINATE 50 MG TAB XL PO SCH (09:00)
[2019-02-23] MEDS ORDERED: METOPROLOL SUCCINATE 25 MG TAB XL PO SCH (09:00)
[2019-02-23] MEDS ORDERED: CLOPIDOGREL BISULFATE 75 MG TAB PO SCH (09:00)
[2019-02-23] MEDS ORDERED: LISINOPRIL 2.5 MG TAB PO SCH (09:00)
[2019-02-23] MEDS: BUSPIRONE HCL 5 MG TAB PO SCH ×2 (09:10→17:00)
[2019-02-23] MEDS: METFORMIN HCL 500 MG TAB PO SCH ×2 (09:10→17:00)
[2019-02-23] MEDS: GABAPENTIN 400 MG CAP PO SCH ×2 (09:10→15:45)
[2019-02-23] MEDS: SODIUM CHLORIDE 0.9% 1000ML 1,000 ML IV SCH (09:12)
[2019-02-23 09:22] VITALS: BP 116/58
[2019-02-23] MEDS: ONDANSETRON HCL INJ 2MG/ML 2ML 2 MG/ML VIAL IV PRN ×2 (09:34→13:40)
[2019-02-23] MEDS: MORPHINE SULFATE INJ 4 MG/ML INJ 1ML IV PRN ×2 (09:34→13:40)
[2019-02-23 12:00] VITALS: BP 117/58
--- NOTE | 2019-02-23 12:00 | NUR ---
WITH STANDBY ASSIST, PT AMBULATED TO BR, VOIDING WITHOUT DIFFICULTY, STANDBY ASSIST BACK TO BED, CALL LIGHT WITHIN REACH, BED ALARM ON
--- NOTE | 2019-02-23 12:32 | NUR ---
2ND CALL TO MD JARAMILLO'S OFFICE, SPOKE WITH STEPHANIE, AWAITING CALL BACK
--- NOTE | 2019-02-23 12:34 | NUR ---
MD Sun BOUCHER INTO SEE PT
--- NOTE | 2019-02-23 15:36 | NUR ---
CALLED [facility] [phone] TO SEE IF TRANSPORTATION IS ABLE TO COME PILOT CONTROL OPERATOR PT. THEY STATE THEIR PHARMACEUTICAL SALES HAS ALREADY LEFT FOR DAY. CALLED NURSE TO LET KNOW WE WILL HAVE TO GET A CAB VOUCHER FOR PT TO RETURN TO [facility].
--- NOTE | 2019-02-23 16:00 | NUR ---
DISCHARGE INSTRUCTIONS REVIEWED WITH PT, VERBALIZED UNDERSTANDING, OBSTETRICS TECHNICIAN NOTIFIED THAT PT NEEDS A CAB FOR DISCHARGE DUE TO [facility] TRANSPORTATION IS NOT AVAILABLE TODAY, CAB CALLED PER HYDRAULIC ENGINEER
--- NOTE | 2019-02-23 17:01 | NUR ---
PT SITTING IN BS CHAIR, VOICES NO C/O AT THIS TIME, STILL AWAITING ARRIVAL OF CAB FOR DISCHARGE, CALL LIGHT WITHIN REACH
[2019-02-23 17:31] VITALS: BP 150/70
--- NOTE | 2019-02-23 17:57 | NUR ---
PT REFUSED PM MEDICATIONS, PT CALLED FRIEND "SINCE CAB TAKING TOO LONG", PT WHEELED OFF UNIT VIA WC FOR DISCHARGE, NO CHANGE IN CONDITION
[2019-02-23] MEDS ORDERED: MONTELUKAST SODIUM 10 MG TAB PO SCH (21:00)
== END 2019-02-23 17:50 | disposition home or self-care (01) ==
LOC: ER 13:28 → ERHOLD 20:01 → MED/SURG 21:55
DX: R07.89 Other chest pain (principal); E11.65 Type 2 diabetes mellitus with hyperglycemia; E78.5 Hyperlipidemia, unspecified; K21.9 Gastro-esophageal reflux disease without esophagitis; F43.10 Post-traumatic stress disorder, unspecified; F41.8 Other specified anxiety disorders; Z83.3 Family history of diabetes mellitus; Z82.49 Family history of ischemic heart disease and other diseases of the circulatory system; J44.9 Chronic obstructive pulmonary disease, unspecified; N28.9 Disorder of kidney and ureter, unspecified; E87.5 Hyperkalemia; I25.10 Atherosclerotic heart disease of native coronary artery without angina pectoris; F32.9 Major depressive disorder, single episode, unspecified; Z79.4 Long term (current) use of insulin
CPT/HCPCS: 36415 ×3; 71046; 80053 ×2; 81001; 82550 ×2; 82553 ×2; 82948 ×3; 83880; 84484 ×2; 85025 ×2; 85610; 85730; 87086; 93005; 94664; 99284; C9113; G0378 ×3; J1817; J2270 ×3; J2405 ×3; J7030 ×3; S0164

== ENCOUNTER 2019-02-26 14:30 | Emergency (ER) | payer MEDICARE, OTHER ==
[~2019-02-26] VITALS: Ht 162.6 cm; Wt 108.4 kg
[~2019-02-26 14:30] MED LIST changes: +ACETAMINOPHEN325 M1 PO; +ADVAIR 100-501 EACH INH; +AMMONIUM LACTATE1 ML TOP; +ATORVASTATIN CA20 MG PO; +BUSPIRONE HCL5 MG PO; +CLONAZEPAM1 MG PO; +GABAPENTIN400 MG PO; +HUMALOG100 UNIT/3 SQ; +HYDROXYZINE HCL25 MG PO; +LISINOPRIL2.5 MG PO; +LOPERAMIDE2 MG PO; +METFORMIN HCL500 MG PO; +NICOTINE PATCH1 EAC1 TOP; +NORCO 5-325 TA1 EACH PO; +PROZAC20 MG PO; +REMERON15 MG PO; +TRAZODONE HCL50 MG PO; +TYLENOL PM PO; +WELLBUTRIN SR150 MG PO; +ZOFRAN4 MG SL; +[UNRECOGNIZED DRUG - OTHER] PO
[2019-02-26] MEDS ORDERED: SODIUM CHLORIDE 0.9% 1000ML 1,000 ML IV STA (14:49)
[2019-02-26] MEDS ORDERED: INSULIN REGULAR, HUMAN 100 UNIT/1 ML 3ML VIAL IV ONE (15:00)
[2019-02-26 15:06] LABS: BASOPHILS # (AUTO) 0.1 (0.0-0.1); BASOPHILS % 0.6 % (0.0-1.0); EOSINOPHILS # (AUTO) 0.1 (0.0-0.4); EOSINOPHILS % 0.9 % (0.0-6.0); HEMATOCRIT 34.8 % (34.2-44.1); LYMPHOCYTES # (AUTO) 3.7 (1.0-3.2); MEAN CORPUSCULAR HEMOGLOBIN 26.6 pg (28-32); MEAN CORPUSCULAR HGB CONC 31.6 g/dL (31-35); MEAN CORPUSCULAR VOLUME 84.1 fL (81-99); MONOCYTES # (AUTO) 0.7 (0.2-0.8); MONOCYTES % 5.1 % (4.4-11.3); NEUTROPHILS # (AUTO) 9.1 (2.1-6.9); NEUTROPHILS % 65.7 % (38.7-80.0); PLATELET COUNT 360 x10e3/uL (140-360); RED BLOOD COUNT 4.14 x10e6/uL (3.6-5.1); RED CELL DISTRIBUTION WIDTH 17.5 % (11.7-14.4)
[2019-02-26 15:11] LABS: INR 0.91; PROTHROMBIN TIME 12.7 seconds (11.9-14.5)
[2019-02-26 15:12] LABS: PARTIAL THROMBOPLASTIN TIME 30.9 seconds (23.8-35.5)
[2019-02-26] MEDS ORDERED: INSULIN REGULAR, HUMAN 100 UNIT/1 ML 3ML VIAL IV NR (15:15)
[2019-02-26 15:18] LABS: ALANINE AMINOTRANSFERASE 13 IU/L (0-55); ALBUMIN 3.3 g/dL (3.5-5.0); ALBUMIN/GLOBULIN RATIO 0.8 (0.8-2.0); ALKALINE PHOSPHATASE 176 IU/L (40-150); ANION GAP 16.3 mmol/L (8-16); BLOOD UREA NITROGEN 24 mg/dL (7-26); BUN/CREATININE RATIO 20 (6-25); CALCIUM 9.9 mg/dL (8.4-10.2); CARBON DIOXIDE 25 mmol/L (22-29); CHLORIDE 96 mmol/L (98-107); CREATINE KINASE 36 IU/L (29-168); CREATININE, SERUM 1.22 mg/dL (0.57-1.11); EST GLOMERULAR FILTRATION RATE 46 ML/MIN (60-); POTASSIUM 5.3 mmol/L (3.5-5.1); SODIUM 132 mmol/L (136-145)
[2019-02-26 15:24] LABS: GLUCOSE 451 mg/dL (74-118)
[2019-02-26] MEDS ORDERED: ACETAMINOPHEN 325 MG TAB PO ONE (16:15)
[2019-02-26 16:25] VITALS: BP 125/69
--- NOTE | 2019-02-26 17:08 | Diagnostic Imaging Report ---
EXAM: CHEST SINGLE (NOT PORTABLE), AP Portable DATE: 02/26/2019 Time stamp on exam: 3:29 PM INDICATION: Hyperglycemia COMPARISON: 02/21/2019 FINDINGS: LINES/TUBES: None LUNGS: Bibasilar atelectasis. PLEURA: No effusions or pneumothorax. HEART AND MEDIASTINUM: Normal size and contour. BONES AND SOFT TISSUES: No acute findings. IMPRESSION: Bibasilar atelectasis. Signed by: Dr. Teo Malloy DO on 02/26/2019 5:05 PM
== END 2019-02-26 16:29 | disposition home or self-care (01) ==
LOC: ER 14:30
DX: R07.89 Other chest pain (principal); I10 Essential (primary) hypertension; J45.909 Unspecified asthma, uncomplicated; E78.5 Hyperlipidemia, unspecified; E11.65 Type 2 diabetes mellitus with hyperglycemia; K21.9 Gastro-esophageal reflux disease without esophagitis; F41.9 Anxiety disorder, unspecified; F32.9 Major depressive disorder, single episode, unspecified; Z79.02 Long term (current) use of antithrombotics/antiplatelets; Z79.4 Long term (current) use of insulin; Z91.041 Radiographic dye allergy status
CPT/HCPCS: 36415; 71045; 80053; 82550; 82553; 82948; 83880; 84484; 85025; 85610; 85730; 93005; 99284; J1817; J7030

== ENCOUNTER 2019-03-07 13:20 | Emergency (ER) | payer MEDICARE, OTHER ==
[~2019-03-07] VITALS: Ht 162.6 cm; Wt 108.4 kg
--- OUTSIDE RECORDS SUMMARY | 2019-03-07 13:24 | XMS REPORT | Continuity of Care Document ---
Author Author [facility] Interface Address Unknown Phone Unavailable Problems Problem Status Onset Date Classification Date Reported Comments Source COPD Active 02/27/2019 [facility] ACS Active 02/27/2019 [facility] WEAKNESS Active 02/02/2019 [facility] ALTERED MENTAL STATUS, NSTEMI Active 02/02/2019 [facility] Primary open-angle glaucoma, right eye, stage unspecified 09/30/2018 02/03/2019 [facility] ACUTE UTI, SEPSIS Active 08/29/2018 [facility] ACUTE UTI, SEPSIS Active 08/29/2018 [facility] SOB Active 08/29/2018 [facility] GALUCOMA Active 07/13/2018 [facility] Dizziness and giddiness 07/07/2018 12/30/2018 [facility] NEAR SYNCOPE, CHEST PAIN Active 06/11/2018 [facility] Type 2 diabetes mellitus with hypoglycemia without coma 11/23/2017 02/23/2018 [facility] HYPOGLYCEMIA ASSOCIATED WITH DIABETES Active 11/16/2017 [facility] HYPOGLYCEMIA Active 11/16/2017 [facility] HYPOGLYCEMIA ASSOCIATED WITH DIABETES Active 11/16/2017 [facility] D47.3 - ESSENTIAL (HEMORRHAGIC) THROMB D Active 12/06/2016 [facility] D72.829 - ELEVATED WHITE BLOOD CELL COUN Active 10/11/2016 [facility] Bra[facility] M54.5 - LOW BACK PAIN Active 12/22/2015 J[facility] Remer Type 2 diabetes mellitus with diabetic polyneuropathy 02/23/2018 [facility] Unspecified asthma, uncomplicated 12/30/2018 [facility] Major depressive disorder, single episode, unspecified 02/23/2018 [facility] Gastro-esophageal reflux disease without esophagitis 02/23/2018 [facility] Insomnia, unspecified 02/23/2018 [facility] Hypomagnesemia 02/23/2018 [facility] Other longterm drug therapy 12/30/2018 [facility] Hypertensive chronic kidney disease with stage 1 through stage 4 chronic kidney disease, or unspecified chronic kidney disease 02/03/2019 [facility] Type 2 diabetes mellitus with diabetic chronic kidney disease 02/03/2019 [facility] Chronic kidney disease, stage 2 02/03/2019 [facility] Chronic obstructive pulmonary disease, unspecified 02/03/2019 [facility] Old myocardial infarction 02/03/2019 [facility] Nicotine dependence, cigarettes, uncomplicated 02/03/2019 [facility] Hyperlipidemia, unspecified 02/03/2019 [facility] Anxiety disorder, unspecified 02/03/2019 [facility] Obesity, unspecified 02/03/2019 [facility] long term use of insulin 02/03/2019 [facility] long term use of aspirin 02/03/2019 [facility] Body mass index 36.0-36.9, adult 02/03/2019 [facility] Type II diabetes mellitus poorly controlled Active Problem 03/02/2019 [facility] Chest pain, unspecified 12/30/2018 [facility] Type 2 diabetes mellitus with hyperglycemia 12/30/2018 [facility] Abnormal findings on diagnostic imaging of heart and coronary circulation 12/30/2018 [facility] Panic disorder [episodic paroxysmal anxiety] 12/30/2018 [facility] Type 2 diabetes mellitus with unspecified diabetic retinopathy without macular edema 12/30/2018 [facility] Type 2 diabetes mellitus with diabetic neuropathy, unspecified 12/30/2018 [facility] Tobacco abuse counseling 12/30/2018 [facility] Body mass index 38.0-38.9, adult 12/30/2018 [facility] Cerebral ischemia 12/30/2018 [facility] Abnormal brain scan 12/30/2018 [facility] Personal history of other diseases of the circulatory system 12/30/2018 [facility] Allergy status to sulfonamides status 12/30/2018 [facility] Allergy status to analgesic agent status 12/30/2018 [facility] Personal history of urinary infections 12/30/2018 [facility] Acquired absence of both cervix and uterus 12/30/2018 [facility] Family history of ischemic heart disease and other diseases of the circulatory system 12/30/2018 [facility] intermediate use of antithrombotics/antiplatelets 12/30/2018 [facility] TYPE 2 DIABETES MELLITUS WITH HYPOGLYCEM Active [facility] URINARY TRACT INFECTION, SITE NOT SPECIF Active [facility] SEPSIS, UNSPECIFIED ORGANISM Active [facility] ALTERED MENTAL STATUS, UNSPECIFIED Active [facility] NON-ST ELEVATION (NSTEMI) MYOCARDIAL INF Active [facility] SYNCOPE AND COLLAPSE Active [facility] CHEST PAIN, UNSPECIFIED Active [facility] Medications Medication Details Route Status Patient Instructions Ordering Provider Order Date Source Seroquel 150 mg, 3 tab, Route: PO, Drug form: TAB, Bedtime, Dosing Weight 104.545, kg, Start date: 02/28/19 21:00:00 CDT, Duration: 30 day, Stop date: 03/29/19 21:00:00 CDTNotes: (Same as: SEROquel) Inactive 03/01/2019 [facility] Singulair 10 mg, 1 tab, Route: PO, Drug form: TAB, Bedtime, Dosing Weight 104.545, kg, Start date: 02/28/19 21:00:00 CDT, Duration: 30 day, Stop date: 03/29/19 21:00:00 CDTNotes: (Same as:Singulair) Inactive 03/01/2019 [facility] Remeron 15 mg, 1 tab, Route: PO, Drug form: TAB, Bedtime, Dosing Weight 104.545, kg, Start date: 02/28/19 21:00:00 CDT, Duration: 30 day, Stop date: 03/29/19 21:00:00 CDTNotes: (Same as:Remeron) Inactive 03/01/2019 [facility] atorvastatin 40 mg, 1 tab, Route: PO, Drug form: TAB, Bedtime, Dosing Weight 104.545, kg, Start date: 02/28/19 21:00:00 CDT, Duration: 30 day, Stop date: 03/29/19 21:00:00 CDTNotes: (Same as: Lipitor) Inactive 03/01/2019 [facility] Plavix 75 mg, 1 tab, Route: PO, Drug form: TAB, Q5PM, Dosing Weight 104.545, kg, Start date: 02/28/19 17:00:00 CDT, Duration: 30 day, Stop date: 03/29/19 17:00:00 CDTNotes: (Same As: Plavix) Inactive 02/28/2019 [facility] Morphine 2 mg, 1 mL, Route: IVP, Drug form: SOLN, ONCE, Dosing Weight 104.545, kg, Start date: 02/28/19 13:34:00 CDT, Stop date: 02/28/19 13:34:00 CDT Inactive 02/28/2019 [facility] Acetaminophen 300 MG / Codeine Phosphate 30 MG Oral Tablet [Tylenol with Codeine #3] 1 tab, Route: PO, Drug Form: TAB, Dosing Weight 104.545, kg, Q4H, PRN Pain Score 6-10, Start date: 02/28/19 13:15:00 CDT, Duration: 30 day, Stop date: 03/30/19 13:14:00 CDTNotes: Do not exceed 4gm/day of acetaminophen. (Same as: Tylenol with Codeine # 3) Inactive 02/28/2019 [facility] Omeprazole 40 mg, Route: PO, Drug form: DRC, Daily, Dosing Weight 104.545, kg, Start date: 02/28/19 9:00:00 CDT, Duration: 30 day, Stop date: 03/29/19 9:00:00 CDT No Longer Active 02/28/2019 [facility] Nicotine 21 mg, 1 patch, Route: TOP, Drug form: ERFILM, Daily, Dosing Weight 104.545, kg, Start date: 02/28/19 9:00:00 CDT, Duration: 30 day, Stop date: 03/29/19 9:00:00 CDTNotes: (Same as: Habitrol) "Remove old patch before application of new patch" WASTE: F/P - P Waste Black; E - P Waste Black Inactive 02/28/2019 [facility] metoprolol extended release 50 mg, 1 tab, Route: PO, Drug form: ERTAB, Daily, Start date: 02/28/19 9:00:00 CDT, Duration: 30 day, Stop date: 03/29/19 9:00:00 CDTNotes: (Same as: Toprol XL) May split tab, but do not crush. Inactive 02/28/2019 [facility] Lisinopril 2.5 mg, 0.5 tab, Route: PO, Drug form: TAB, Daily, Dosing Weight 104.545, kg, Start date: 02/28/19 9:00:00 CDT, Duration: 30 day, Stop date: 03/29/19 9:00:00 CDTNotes: (Same as: Prinivil, Zestril) Inactive 02/28/2019 [facility] insulin detemir 32 unit, Route: SUB-Q, Drug form: SOLN, BID, Dosing Weight 104.545, kg, Start date: 02/28/19 9:00:00 CDT, Duration: 30 day, Stop date: 03/29/19 17:00:00 CDT No Longer Active 02/28/2019 [facility] gabapentin 400 mg, 1 cap, Route: PO, Drug form: CAP, TID, Dosing Weight 104.545, kg, Start date: 02/28/19 9:00:00 CDT, Duration: 30 day, Stop date: 03/29/19 17:00:00 CDTNotes: (Same as: Neurontin) Inactive 02/28/2019 [facility] Advair Diskus 100 mcg-50 mcg inhalation powder 1 puff, Route: INHALATION, Drug Form: PWDR, Dosing Weight 104.545, kg, BID, Start date: 02/28/19 9:00:00 CDT, Duration: 30 day, Stop date: 03/29/19 17:00:00 CDT No Longer Active 02/28/2019 [facility] Prozac 40 mg, 4 cap, Route: PO, Drug form: CAP, BID, Dosing Weight 104.545, kg, Start date: 02/28/19 9:00:00 CDT, Duration: 30 day, Stop date: 03/29/19 17:00:00 CDTNotes: (Same as: Prozac) Inactive 02/28/2019 [facility] Buspirone 7.5 mg, 1.5 tab, Route: PO, Drug form: TAB, BID, Dosing Weight 104.545, kg, Start date: 02/28/19 9:00:00 CDT, Duration: 30 day, Stop date: 03/29/19 17:00:00 CDTNotes: (Same As: BuSpar) Inactive 02/28/2019 [facility] Wellbutrin 300 mg, 3 tab, Route: PO, Drug form: TAB, Daily, Dosing Weight 104.545, kg, Start date: 02/28/19 9:00:00 CDT, Duration: 30 day, Stop date: 03/29/19 9:00:00 CDTNotes: (Same As: Wellbutrin) Inactive 02/28/2019 [facility] Protonix 40 mg, 1 tab, Route: PO, Drug form: ECTAB, Before Breakfast, Start date: 02/28/19 7:30:00 CDT, Duration: 30 day, Stop date: 03/29/19 7:30:00 CDTNotes: Tablet should not be chewed or crushed. (Same as: Protonix) Inactive 02/28/2019 [facility] NovoLog Route: SUB-Q, Drug form: SOLN, TID-Before Meals, Dosing Weight 104.545, kg, Start date: 02/28/19 7:30:00 CDT, Duration: 30 day, Stop date: 03/29/19 16:30:00 CDT No Longer Active 02/28/2019 [facility] Humalog 7 unit, 0.07 mL, Route: SUB-Q, Drug form: SOLN, TID-Before Meals, Start date: 02/28/19 7:30:00 CDT, Duration: 30 day, Stop date: 03/29/19 16:30:00 CDTNotes: (Same as: Humalog) Roll in palms of hands gen tly; Do not shake vigorously. WASTE: F/P - Black; E - Municipal Trash Bin Stable for 28 days at room temperature. Expires in days from Date Inactive 02/28/2019 [facility] albuterol 2.49 mg, 3 mL, Route: NEB, Drug form: SOLN, RQID, Start date: 02/28/19 7:00:00 CDT, Duration: 30 day, Stop date: 03/29/19 19:00:00 CDTNotes: SEE RT DOCUMENTATION (Same as: Proventil) Inactive 02/28/2019 [facility] insulin glargine 64 unit, 0.64 mL, Route: SUB-Q, Drug form: SOLN, Bedtime, Start date: 02/27/19 22:30:00 CDT, Duration: 30 day, Stop date: 03/29/19 21:00:00 CDTNotes: (Same as: Lantus) Do not hold insulin without contac ting prescriber WASTE: F/P - Black; E - Municipal Trash Bin "single patient use only" Stable for 28 days at room temperature Expires in days from Date No Longer Active 02/28/2019 [facility] Pulmicort Respules 0.25 mg, 2 mL, Route: NEB, Drug form: SUSP, RBID, Start date: 02/27/19 22:07:00 CDT, Duration: 30 day, Stop date: 03/29/19 20:00:00 CDTNotes: (Same As: Pulmicort respule). No Longer Active 02/28/2019 [facility] Clonazepam 0.5 mg, 1 tab, Route: PO, Drug form: TAB, BID, Dosing Weight 104.545, kg, PRN Anxiety, Start date: 02/27/19 21:51:00 CDT, Duration: 30 day, Stop date: 03/29/19 21:50:00 CDTNotes: (Same As: KlonoPIN) No Longer Active 02/28/2019 [facility] Albuterol 0.833 MG/ML / Ipratropium [place] 0.167 MG/ML Inhalant Solution 3 mL, Route: INHALATION, Drug Form: SOLN, Dosing Weight 104.545, kg, Q6H, PRN Wheezing, Start date: 02/27/19 21:51:00 CDT, Duration: 30 day, Stop date: 03/29/19 21:50:00 CDTNotes: (Same as: Duoneb) No Longer Active 02/28/2019 [facility] Insulin Lispro 4 unit, 0.04 mL, Route: SUB-Q, Drug form: SOLN, Bedtime, Dosing Weight 104.545, kg, PRN Blood Glucose Results, Start date: 02/27/19 21:51:00 CDT, Duration: 30 day, Stop date: 03/29/19 21:50:00 CDTNotes: (Same as: Humalog) Roll in palms of hands gently; Do not shake vigorously. WASTE: F/P - Black; E - Municipal Trash Bin Stable for 28 days at room temperature. Expires in days from Date No Longer Active 02/28/2019 [facility] Dextrose 50% Syringe 12.5 gm, 25 mL, Route: IVP, Drug Form: INJ, Dosing Weight 104.545, kg, PRN, PRN Blood Glucose Results, Start date: 02/27/19 21:51:00 CDT, Duration: 30 day, Stop date: 03/29/19 21:50:00 CDT No Longer Active 02/28/2019 [facility] Glucagon 1 mg, Route: IM, Drug form: PDR/INJ, PRN, Dosing Weight 104.545, kg, PRN Blood Glucose Results, Start date: 02/27/19 21:51:00 CDT, Duration: 30 day, Stop date: 03/29/19 21:50:00 CDT No Longer Active 02/28/2019 [facility] Saline Flush 0.9% 10 ml, Route: IVP, Drug Form: INJ, Dosing Weight 104, kg, Q12H, Start date: 02/27/19 21:00:00 CDT, Duration: 30 day, Stop date: 03/29/19 9:00:00 CDTNotes: (Same as: BD Posiflush) No Longer Active 02/28/2019 [facility] Lovenox 40 mg, 0.4 mL, Route: SUB-Q, Drug form: INJ, [id number], Dosing Weight 104, kg, Start date: 02/27/19 20:00:00 CDT, Duration: 30 day, Stop date: 03/28/19 20:00:00 CDTNotes: (Same as: Lovenox) No Longer Active 02/28/2019 [facility] Saline Flush 0.9% 10 ml, Route: IVP, Drug Form: INJ, Dosing Weight 104, kg, PRN, PRN Line Flush, Start date: 02/27/19 19:44:00 CDT, Duration: 30 day, Stop date: 03/29/19 19:43:00 CDTNotes: (Same as: BD Posiflush) No Longer Active 02/28/2019 [facility] Ondansetron 4 mg, 1 tab, Route: PO, Drug form: TAB, Q8H, Dosing Weight 104, kg, PRN Nausea & Vomiting, Start date: 02/27/19 19:44:00 CDT, Duration: 30 day, Stop date: 03/29/19 19:43:00 CDTNotes: (Same as: Zofran) No Longer Active 02/28/2019 [facility] Acetaminophen 650 mg, 2 tab, Route: PO, Drug form: TAB, Q4H, Dosing Weight 104, kg, PRN Pain Score 1-5, Start date: 02/27/19 19:44:00 CDT, Duration: 30 day, Stop date: 03/29/19 19:43:00 CDTNotes: Do not exceed 4 g m/day. (Same as: Tylenol) No Longer Active 02/28/2019 [facility] Morphine 2 mg, 0.5 mL, Route: IVP, Drug form: SOLN, Q15Min, Dosing Weight 104, kg, PRN Chest Pain, Start date: 02/27/19 19:44:00 CDT, Duration: 2 doses or times, Stop date: Limited # of timesNotes: (Same as:M ORPhine Sulfate) No Longer Active 02/28/2019 [facility] Nitroglycerin 0.4 mg, 1 tab, Route: SL, Drug form: TAB, Q5Min, Dosing Weight 104, kg, PRN Chest Pain, Start date: 02/27/19 19:44:00 CDT, Duration: 3 doses or times, Stop date: Limited # of timesNotes: (Same as:Nitroquick, Nitrostat) "Do Not Crush" Sublingual tablet No Longer Active 02/28/2019 [facility] Morphine 4 mg, Route: IVP, ONCE, Dosing Weight 104, kg, Priority: STAT, Start date: 02/27/19 18:17:00 CDT, Stop date: 02/27/19 18:17:00 CDT Inactive 02/27/2019 [facility] Zofran 4 mg, Route: IVP, Drug form: INJ, ONCE, Dosing Weight 104, kg, Priority: STAT, Start date: 02/27/19 16:01:00 CDT, Stop date: 02/27/19 16:01:00 CDT Inactive 02/27/2019 [facility] Acetaminophen 325 MG / Hydrocodone Bitartrate 5 MG Oral Tablet [[place] 5/325] 1 tab, Route: PO, Drug Form: TAB, Dosing Weight 104, kg, ONCE, STAT, Start date: 02/27/19 16:00:00 CDT, Stop date: 02/27/19 16:00:00 CDT Inactive 02/27/2019 [facility] metoprolol 50 mg oral tablet, extended release 50 mg=1 tab, PO, Daily, # 30 tab, 0 Refill(s), Pharmacy: [facility] Active 02/06/2019 [facility] atorvastatin 40 mg oral tablet 40 mg=1 tab, PO, Bedtime, # 30 tab, 0 Refill(s), Pharmacy: [facility] Active 02/06/2019 [facility] Aspirin 81 MG Enteric Coated Tablet 81 mg=1 tab, PO, Daily, 0 Refill(s) Active 02/06/2019 [facility] Aspirin 81 MG Enteric Coated Tablet 81 mg, 1 tab, Route: PO, Drug form: ECTAB, Daily, Dosing Weight 99.091, kg, Start date: 02/06/19 9:00:00 CDT, Duration: 30 day, Stop date: 03/07/19 9:00:00 CDTNotes: Do not crush or chew. (Same As: Ecotrin) Inactive 02/06/2019 [facility] Insulin Lispro 1 unit, 0.01 mL, Route: SUB-Q, Drug form: SOLN, Bedtime, Dosing Weight 99.091, kg, PRN Blood Glucose Results, Start date: 02/05/19 22:27:00 CDT, Duration: 30 day, Stop date: 03/07/19 22:26:00 CDTNotes: (Same as: Humalog ) Roll in palms of hands gently; Do not shake `vigorously. "Single Patient Use Only " WASTE: F/P - Black; E - Municipal Trash Bin Stable for 28 days at room temperature. Expires in days from Date No Longer Active 02/06/2019 [facility] atorvastatin 80 mg, Route: PO, Drug form: TAB, Bedtime, Dosing Weight 99.091, kg, Start date: 02/05/19 21:00:00 CDT, Duration: 30 day, Stop date: 03/06/19 21:00:00 CDT Inactive 02/06/2019 [facility] Nitroglycerin 0.4 mg, 1 tab, Route: SL, Drug form: TAB, Q5Min, Dosing Weight 99.091, kg, PRN Chest Pain, Start date: 02/05/19 14:59:00 CDT, Duration: 3 doses or times, Stop date: Limited # of timesNotes: (Same as: Nitroquick, Nitrostat) "Do Not Crush" Sublingual tablet No Longer Active 02/05/2019 [facility] Sodium Chloride 0.9% IV 1,000 mL 1,000 mL, Rate: 100 ml/hr, Infuse over: 10 hr, Route: IV, Dosing Weight 99.091 kg, Total Volume: 1,000, Start date: 02/05/19 14:59:00 CDT, Duration: 12 hr, Stop date: 02/06/19 2:58:00 CDT, 2.15, m2 No Longer Active 02/05/2019 [facility] Famotidine 20 mg, 2 mL, Route: IVP, Drug form: INJ, ONCE, Dosing Weight 99.091, kg, Start date: 02/05/19 12:32:00 CDT, Stop date: 02/05/19 12:32:00 CDTNotes: (Same as: Pepcid) Can be dilute in 5-10cc NS IVP: S low IV push over at least 2 minutes. Inactive 02/05/2019 [facility] Diphenhydramine 50 mg, 1 mL, Route: IVP, Drug form: INJ, ONCE, Dosing Weight 99.091, kg, Start date: 02/05/19 12:32:00 CDT, Stop date: 02/05/19 12:32:00 CDTNotes: (Same as: Benadryl) Inactive 02/05/2019 [facility] methylPREDNISolone SODium SUCCinate 125 mg, 2 mL, Route: IVP, Drug form: INJ, ONCE, Dosing Weight 99.091, kg, Start date: 02/05/19 12:32:00 CDT, Stop date: 02/05/19 12:32:00 CDTNotes: (Same as:Solu-MEDROL, A- Methapred) Inactive 02/05/2019 [facility] normal saline 0.9% IV 1,000 mL 1,000 mL, Rate: 75 ml/hr, Infuse over: 13.3 hr, Route: IV, Dosing Weight 99.091 kg, Total Volume: 1,000, Start date: 02/05/19 11:50:00 CDT, Duration: 30 day, Stop date: 03/07/19 11:49:00 CDT, 2.15, m2 Inactive 02/05/2019 [facility] Flexeril 5 mg, 0.5 tab, Route: PO, Drug form: TAB, TID, Dosing Weight 99.091, kg, PRN Spasm, Start date: 02/05/19 9:52:00 CDT, Duration: 30 day, Stop date: 03/07/19 9:51:00 CDTNotes: (Same As: Flexeril) No Longer Active 02/05/2019 [facility] Dextrose 50% Syringe 12.5 gm, 25 mL, Route: IVP, Drug Form: INJ, Dosing Weight 99.091, kg, PRN, PRN Blood Glucose Results, Start date: 02/04/19 17:14:00 CDT, Duration: 30 day, Stop date: 03/06/19 17:13:00 CDT No Longer Active 02/04/2019 [facility] Glucagon 1 mg, Route: IM, Drug form: PDR/INJ, PRN, Dosing Weight 99.091, kg, PRN Blood Glucose Results, Start date: 02/04/19 17:14:00 CDT, Duration: 30 day, Stop date: 03/06/19 17:13:00 CDT No Longer Active 02/04/2019 [facility] Insulin Lispro 10 unit, 0.1 mL, Route: SUB-Q, Drug form: SOLN, TID-Before Meals, Dosing Weight 99.091, kg, PRN Blood Glucose Results, Start date: 02/04/19 17:14:00 CDT, Duration: 30 day, Stop date: 03/06/19 17:13:0 0 CDTNotes: (Same as: Humalog ) Roll in palms of hands gently; Do not shake `vigorously. "Single Patient Use Only " WASTE: F/P - Black; E - Municipal Trash Bin Stable for 28 days at room temperature. Expires in days from Date No Longer Active 02/04/2019 [facility] Humalog 15 unit, 0.15 mL, Route: SUB-Q, Drug form: SOLN, ONCE, Dosing Weight 99.091, kg, Priority: NOW, Start date: 02/04/19 17:10:00 CDT, Stop date: 02/04/19 17:10:00 CDTNotes: (Same as: Humalog ) Roll in palms of hands gently; Do not shake `vigorously. "Single Patient Use Only " WASTE: F/P - Black; E - Municipal Trash Bin Stable for 28 days at room temperature. Expires in days from Date Inactive 02/04/2019 [facility] metoprolol extended release 50 mg, 1 tab, Route: PO, Drug form: ERTAB, Daily, Start date: 02/04/19 9:00:00 CDT, Duration: 30 day, Stop date: 03/05/19 9:00:00 CDTNotes: (Same as: Toprol XL) May split tab, but do not crush. No Longer Active 02/04/2019 [facility] Clonazepam 0.5 mg, 1 tab, Route: PO, Drug form: TAB, BID, Dosing Weight 99.091, kg, PRN Anxiety, Start date: 02/03/19 21:21:00 CDT, Duration: 30 day, Stop date: 03/05/19 21:20:00 CDTNotes: (Same As: KlonoPIN) No Longer Active 02/04/2019 [facility] Humalog 15 unit, 0.15 mL, Route: SUB-Q, Drug form: SOLN, ONCE, Dosing Weight 99.091, kg, Start date: 02/03/19 21:20:00 CDT, Stop date: 02/03/19 21:20:00 CDTNotes: (Same as: Humalog ) Roll in palms of hands gently; Do not shake `vigorously. "Single Patient Use Only " WASTE: F/P - Black; E - Municipal Trash Bin Stable for 28 days at room temperature. Expires in days from Date Inactive 02/04/2019 [facility] normal saline 0.9% IV 1,000 mL 1,000 mL, Rate: 125 ml/hr, Infuse over: 8 hr, Route: IV, Dosing Weight 99.091 kg, Total Volume: 1,000, Start date: 02/03/19 21:02:00 CDT, Duration: 30 day, Stop date: 03/05/19 21:01:00 CDT, 2.15, m2 No Longer Active 02/04/2019 [facility] atorvastatin 80 mg, 2 tab, Route: PO, Drug form: TAB, Bedtime, Dosing Weight 99.091, kg, Start date: 02/03/19 21:00:00 CDT, Duration: 30 day, Stop date: 03/04/19 21:00:00 CDTNotes: (Same as: Lipitor) No Longer Active 02/04/2019 [facility] Remeron 15 mg, 1 tab, Route: PO, Drug form: TAB, Bedtime, Dosing Weight 99.091, kg, Start date: 02/03/19 21:00:00 CDT, Duration: 30 day, Stop date: 03/04/19 21:00:00 CDTNotes: (Same as:Remeron) No Longer Active 02/04/2019 [facility] Singulair 10 mg, 1 tab, Route: PO, Drug form: TAB, Bedtime, Dosing Weight 99.091, kg, Start date: 02/03/19 21:00:00 CDT, Duration: 30 day, Stop date: 03/04/19 21:00:00 CDTNotes: (Same as:Singulair) No Longer Active 02/04/2019 [facility] Plavix 75 mg, 1 tab, Route: PO, Drug form: TAB, Q5PM, Dosing Weight 99.091, kg, Start date: 02/03/19 17:00:00 CDT, Duration: 30 day, Stop date: 03/04/19 17:00:00 CDTNotes: (Same As: Plavix) No Longer Active 02/03/2019 [facility] Insulin Lispro 10 unit, 0.1 mL, Route: SUB-Q, Drug form: SOLN, ONCE, Dosing Weight 99.091, kg, Priority: NOW, Start date: 02/03/19 13:04:00 CDT, Stop date: 02/03/19 13:04:00 CDTNotes: (Same as: Humalog ) Roll in palms of hands gently; Do not shake `vigorously. "Single Patient Use Only " WASTE: F/P - Black; E - Municipal Trash Bin Stable for 28 days at room temperature. Expires in days from Date Inactive 02/03/2019 [facility] Acetaminophen 325 MG / Hydrocodone Bitartrate 10 MG Oral Tablet [[place] 10/325] 1 tab, Route: PO, Drug Form: TAB, Dosing Weight 99.091, kg, Q6H, Start date: 02/03/19 12:00:00 CDT, Duration: 30 day, Stop date: 03/05/19 6:00:00 CDT Inactive 02/03/2019 [facility] Acetaminophen 325 MG / Hydrocodone Bitartrate 10 MG Oral Tablet [[place] 10/325] 1 tab, PO, 5X Day, PRN Pain Score 1-5, 0 Refill(s) Active 02/03/2019 [facility] clonazePAM 0.5 mg oral tablet 0.5 mg=1 tab, PO, BID, PRN anxiety, # 60 tab, 0 Refill(s) Active 02/03/2019 [facility] insulin glargine 32 unit, 0.32 mL, Route: SUB-Q, Drug form: SOLN, BID, Start date: 02/03/19 9:00:00 CDT, Duration: 30 day, Stop date: 03/04/19 21:00:00 CDTNotes: (Same as: Lantus) Do not hold insulin without contacting prescriber WASTE: F/P - Black; E - Daily Secret Trash Bin "single patient use only" No Longer Active 02/03/2019 [facility] gabapentin 400 mg, 1 cap, Route: PO, Drug form: CAP, TID, Dosing Weight 99.091, kg, Start date: 02/03/19 9:00:00 CDT, Duration: 30 day, Stop date: 03/04/19 21:00:00 CDTNotes: (Same as: Neurontin) No Longer Active 02/03/2019 [facility] Buspirone 7.5 mg, 1.5 tab, Route: PO, Drug form: TAB, BID, Dosing Weight 99.091, kg, Start date: 02/03/19 9:00:00 CDT, Duration: 30 day, Stop date: 03/04/19 17:00:00 CDTNotes: (Same As: BuSpar) No Longer Active 02/03/2019 [facility] Wellbutrin 300 mg, 2 tab, Route: PO, Drug form: ERTAB, Daily, Dosing Weight 99.091, kg, Start date: 02/03/19 9:00:00 CDT, Duration: 30 day, Stop date: 03/04/19 9:00:00 CDTNotes: (Same as: Wellbutrin XL) "Do Not Crush" No Longer Active 02/03/2019 [facility] Protonix 40 mg, 1 tab, Route: PO, Drug form: ECTAB, Q24H, Start date: 02/03/19 9:00:00 CDT, Duration: 30 day, Stop date: 03/04/19 9:00:00 CDTNotes: Tablet should not be chewed or crushed. (Same as: Protonix) No Longer Active 02/03/2019 [facility] Prozac 40 mg, 4 cap, Route: PO, Drug form: CAP, BID, Dosing Weight 99.091, kg, Start date: 02/03/19 9:00:00 CDT, Duration: 30 day, Stop date: 03/04/19 17:00:00 CDTNotes: (Same as: Prozac) No Longer Active 02/03/2019 [facility] Clonazepam 0.5 mg, 1 tab, Route: PO, Drug form: TAB, BID, Dosing Weight 99.091, kg, PRN Anxiety, Start date: 02/03/19 9:00:00 CDT, Duration: 30 day, Stop date: 03/05/19 8:59:00 CDTNotes: (Same As: KlonoPIN) Inactive 02/03/2019 [facility] insulin detemir 32 unit, Route: SUB-Q, Drug form: SOLN, BID, Dosing Weight 99.091, kg, Start date: 02/03/19 9:00:00 CDT, Duration: 30 day, Stop date: 03/04/19 17:00:00 CDT Inactive 02/03/2019 [facility] Lisinopril 2.5 mg, 0.5 tab, Route: PO, Drug form: TAB, Daily, Dosing Weight 99.091, kg, Start date: 02/03/19 9:00:00 CDT, Duration: 30 day, Stop date: 03/04/19 9:00:00 CDTNotes: (Same as: Prinivil, Zestril) No Longer Active 02/03/2019 [facility] Advair Diskus 100 mcg-50 mcg inhalation powder 1 puff, Route: INHALATION, Drug Form: PWDR, Dosing Weight 99.091, kg, BID, Start date: 02/03/19 9:00:00 CDT, Duration: 30 day, Stop date: 03/04/19 17:00:00 CDT Inactive 02/03/2019 [facility] Omeprazole 40 mg, Route: PO, Drug form: DRC, Daily, Dosing Weight 99.091, kg, Start date: 02/03/19 9:00:00 CDT, Duration: 30 day, Stop date: 03/04/19 9:00:00 CDT Inactive 02/03/2019 [facility] Glucagon 1 mg, Route: IM, Drug form: PDR/INJ, PRN, Dosing Weight 99.091, kg, PRN Blood Glucose Results, Start date: 02/03/19 8:23:00 CDT, Duration: 30 day, Stop date: 03/05/19 8:22:00 CDT No Longer Active 02/03/2019 [facility] Dextrose 50% Syringe 25 gm, 50 mL, Route: IVP, Drug Form: INJ, Dosing Weight 99.091, kg, PRN, PRN Blood Glucose Results, Start date: 02/03/19 8:23:00 CDT, Duration: 30 day, Stop date: 03/05/19 8:22:00 CDT No Longer Active 02/03/2019 [facility] Insulin Lispro 1 unit, 0.01 mL, Route: SUB-Q, Drug form: SOLN, TID-Before Meals, Dosing Weight 99.091, kg, PRN Blood Glucose Results, Start date: 02/03/19 8:23:00 CDT, Duration: 30 day, Stop date: 03/05/19 8:22:00 CDTNotes: (Same as: Humalog ) Roll in palms of hands gently; Do not shake `vigorously. "Single Patient Use Only " WASTE: F/P - Black; E - Municipal Trash Bin Stable for 28 days at room temperature. Expires in days from Date No Longer Active 02/03/2019 [facility] Hydroxyzine 25 mg, 1 tab, Route: PO, Drug form: TAB, QID, Dosing Weight 99.091, kg, PRN Itching, Start date: 02/03/19 8:11:00 CDT, Duration: 30 day, Stop date: 03/05/19 8:10:00 CDTNotes: (Same as: Atarax) Avoid alcohol. No Longer Active 02/03/2019 [facility] Albuterol 0.833 MG/ML / Ipratropium [place] 0.167 MG/ML Inhalant Solution 3 mL, Route: INHALATION, Drug Form: SOLN, Dosing Weight 99.091, kg, RQ6H, PRN Wheezing, Start date: 02/03/19 8:11:00 CDT, Duration: 30 day, Stop date: 03/05/19 8:10:00 CDTNotes: (Same as: Duoneb) No Longer Active 02/03/2019 [facility] Acetaminophen 325 MG / Hydrocodone Bitartrate 10 MG Oral Tablet [[place] 10/325] 1 tab, Route: PO, Drug Form: TAB, Dosing Weight 99.091, kg, Q4H, PRN Pain Score 4-6, Start date: 02/03/19 4:00:00 CDT, Duration: 30 day, Stop date: 03/05/19 3:59:00 CDTNotes: Do not exceed 4gm/day of acetaminophen. (Same as: [place] 325/10) No Longer Active 02/03/2019 [facility] Zofran 4 mg, PO, PRN, 0 Refill(s) Active 02/03/2019 [facility] Acetaminophen 325 MG / Hydrocodone Bitartrate 10 MG Oral Tablet [[place] 10/325] 1 tab, PO, Q6H, 0 Refill(s) Inactive 02/03/2019 [facility] Humalog SUB-Q, 0 Refill(s) No Longer Active 02/03/2019 [facility] Trazodone 100 mg, PO, 0 Refill(s) No Longer Active 02/03/2019 [facility] Clonazepam 1 mg, PO, TID, 0 Refill(s) Inactive 02/03/2019 [facility] Remeron 15 mg, PO, Bedtime, 0 Refill(s) Active 02/03/2019 [facility] 24 HR Nicotine 0.875 MG/HR Transdermal Patch =1 patch, TOP, Daily, # 30 patch, 0 Refill(s) Active 02/03/2019 [facility] Loperamide 2 mg, PO, Q4H, PRN, 0 Refill(s) Active 02/03/2019 [facility] Wellbutrin See Instructions, 300 mg PO Qday, 0 Refill(s) Active 02/03/2019 [facility] Lactate TOP, BID, 0 Refill(s) No Longer Active 02/03/2019 [facility] Hydroxyzine Hydrochloride 25 MG Oral Tablet 25 mg=1 tab, PO, QID, 0 Refill(s) Active 02/03/2019 [facility] Advair Diskus 100 mcg-50 mcg inhalation powder 1 puff, INHALATION, BID, 0 Refill(s) Active 02/03/2019 [facility] Glucagon 1 mg, Route: IM, Drug form: PDR/INJ, PRN, Dosing Weight 91.818, kg, PRN Blood Glucose Results, Start date: 02/02/19 23:19:00 CDT, Duration: 30 day, Stop date: 03/04/19 23:18:00 CDT No Longer Active 02/03/2019 [facility] Dextrose 50% Syringe 25 gm, 50 mL, Route: IVP, Drug Form: INJ, Dosing Weight 91.818, kg, PRN, PRN Blood Glucose Results, Start date: 02/02/19 23:19:00 CDT, Duration: 30 day, Stop date: 03/04/19 23:18:00 CDT No Longer Active 02/03/2019 [facility] Seroquel 100 mg, 1 tab, Route: PO, Drug form: TAB, Bedtime, Dosing Weight 91.818, kg, Start date: 02/02/19 23:18:00 CDT, Duration: 30 day, Stop date: 03/04/19 21:00:00 CDTNotes: (Same as: SEROquel) No Longer Active 02/03/2019 [facility] Clonazepam 0.5 mg, 1 tab, Route: PO, Drug form: TAB, TID, Dosing Weight 91.818, kg, PRN Anxiety, Start date: 02/02/19 23:12:00 CDT, Duration: 30 day, Stop date: 03/04/19 23:11:00 CDTNotes: (Same As: KlonoPIN) No Longer Active 02/03/2019 [facility] Heparin 30 unit/kg Bolus (Heparin Dosing Weight) Route: IVP, PRN, 2,000 unit, 2 mL, Drug form: INJ, PRN, Heparin Protocol, Start date: 02/02/19 18:43:00 CDT Stop date: 03/04/19 18:42:00 CDT, 30 day No Longer Active 02/02/2019 [facility] heparin additive 25,000 unit [12 unit/kg/hr] + Premix Diluent Dextrose 5% 500 mL 500 mL, Rate: 16.03 ml/hr, Infuse over: 31.2 hr, Route: IV, Dosing Weight 66.8 kg, Total Volume: 500 mL, Start date: 02/02/19 18:43:00 CDT, Duration: 30 day, Stop date: 03/04/19 18:42:00 CDT, 1.73, m2 No Longer Active 02/02/2019 [facility] Heparin - one time bolus for ACS 4,000 unit, 4 mL, Route: IVP, Drug form: INJ, ONCE, Dosing Weight 91.818, kg, Priority: STAT, Start date: 02/02/19 18:43:00 CDT, Stop date: 02/02/19 18:43:00 CDT Inactive 02/02/2019 [facility] Heparin 60 unit/kg Bolus (Heparin Dosing Weight) Route: IVP, PRN, 4,000 unit, 4 mL, Drug form: INJ, PRN, Heparin Protocol, Start date: 02/02/19 18:43:00 CDT Stop date: 03/04/19 18:42:00 CDT, 30 day No Longer Active 02/02/2019 [facility] alfentanil (ANES) Route: IV, Drug form: INJ, ONCE, Stop date: 07/17/18 10:56:00 CDT Inactive 07/17/2018 [facility] midazolam (ANES) Route: IV, Drug form: SOLN, ONCE, Stop date: 07/17/18 10:46:00 CDT Inactive 07/17/2018 [facility] Sodium Chloride 0.9% IV (ANES) 1000 mL Route: IV, Total Volume: 1,000, Start date: 07/17/18 10:08:00 CDT, Stop date: 07/17/18 11:08:00 CDT Inactive 07/17/2018 [facility] Trazodone 20 mg, PO, Bedtime, 0 Refill(s) No Longer Active 07/14/2018 [facility] Plavix 75 mg, 1 tab, Route: PO, Drug form: TAB, Q5PM, Dosing Weight 102.273, kg, Start date: 06/12/18 17:00:00 CDT, Duration: 30 day, Stop date: 07/11/18 17:00:00 CDTNotes: (Same As: Plavix) Inactive 06/12/2018 [facility] Zofran 4 mg, 2 mL, Route: IVP, Drug form: INJ, Q8H, Dosing Weight 102.273, kg, PRN Nausea, Start date: 06/12/18 15:25:00 CDT, Duration: 30 day, Stop date: 07/12/18 15:24:00 CDTNotes: (Same as: Zofran) MEDICATION WASTE Product Size: 4 mg Product Wasted: ___ mg Inactive 06/12/2018 [facility] gabapentin 300 MG Oral Capsule 300 mg=1 cap, PO, TID, # 90 cap, 0 Refill(s), Pharmacy: [facility] No Longer Active 06/12/2018 [facility] Omeprazole 40 mg, Route: PO, Drug form: DRC, Daily, Dosing Weight 102.273, kg, Start date: 06/12/18 9:00:00 CDT, Duration: 30 day, Stop date: 07/11/18 9:00:00 CDT No Longer Active 06/12/2018 [facility] 24 HR Metformin hydrochloride 750 MG Extended Release Tablet 750 mg, 1 tab, Route: PO, Drug form: ERTAB, BID, Dosing Weight 102.273, kg, Start date: 06/12/18 9:00:00 CDT, Duration: 30 day, Stop date: 07/11/18 17:00:00 CDT Inactive 06/12/2018 [facility] insulin detemir 32 unit, Route: SUB-Q, Drug form: SOLN, BID, Dosing Weight 102.273, kg, Start date: 06/12/18 9:00:00 CDT, Duration: 30 day, Stop date: 07/11/18 17:00:00 CDT No Longer Active 06/12/2018 [facility] Fluoxetine 40 mg, 4 cap, Route: PO, Drug form: CAP, BID, Dosing Weight 102.273, kg, Start date: 06/12/18 9:00:00 CDT, Duration: 30 day, Stop date: 07/11/18 17:00:00 CDTNotes: (Same as: Prozac) Inactive 06/12/2018 [facility] insulin glargine 60 unit, 0.6 mL, Route: SUB-Q, Drug form: SOLN, Daily, Start date: 06/12/18 9:00:00 CDT, Duration: 30 day, Stop date: 07/11/18 9:00:00 CDTNotes: (Same as: Lantus) Do not hold insulin without contacting prescriber WASTE: F/P - Black; E - Municipal Trash Bin "single patient use only" Inactive 06/12/2018 [facility] Humalog 10 unit, 0.1 mL, Route: SUB-Q, Drug form: SOLN, TID-Before Meals, Dosing Weight 102.273, kg, Start date: 06/12/18 7:30:00 CDT, Duration: 30 day, Stop date: 07/11/18 16:30:00 CDTNotes: (Same as: Humalog ) Roll in palms of hands gently; Do not shake `vigorously. "Single Patient Use Only " WASTE: F/P - Black; E - Municipal Trash Bin Stable for 28 days at room temperature. Expires in days from Date Inactive 06/12/2018 [facility] Protonix 40 mg, 1 tab, Route: PO, Drug form: ECTAB, Before Breakfast, Start date: 06/12/18 7:30:00 CDT, Duration: 30 day, Stop date: 07/11/18 7:30:00 CDTNotes: Tablet should not be chewed or crushed. (Same as: Protonix) Inactive 06/12/2018 [facility] Ambien 5 mg, 1 tab, Route: PO, Drug form: TAB, Bedtime, Dosing Weight 102.273, kg, PRN Insomnia, Start date: 06/11/18 21:34:00 CDT, Duration: 30 day, Stop date: 07/11/18 21:33:00 CDTNotes: (Same As: Ambien) No Longer Active 06/12/2018 [facility] Acetaminophen 325 MG / Hydrocodone Bitartrate 5 MG Oral Tablet [[place] 5/325] 1 tab, Route: PO, Drug Form: TAB, Dosing Weight 102.273, kg, Q6H, PRN Pain Score 1-3, Start date: 06/11/18 21:34:00 CDT, Duration: 30 day, Stop date: 07/11/18 21:33:00 CDTNotes: (Same as: [place] 325/5) Do not exceed 4gm/day of acetaminophen. No Longer Active 06/12/2018 [facility] Zofran 4 mg, 2 mL, Route: IV, Drug form: INJ, Q8H, Dosing Weight 102.273, kg, PRN Nausea, Start date: 06/11/18 21:34:00 CDT, Duration: 30 day, Stop date: 07/11/18 21:33:00 CDTNotes: (Same as: Zofran) MEDICATION WASTE Product Size: 4 mg Product Wasted: ___ mg Inactive 06/12/2018 [facility] Tylenol 650 mg, 2 tab, Route: PO, Drug form: TAB, Q6H, Dosing Weight 102.273, kg, PRN Pain Score 1-3, Start date: 06/11/18 21:34:00 CDT, Duration: 30 day, Stop date: 07/11/18 21:33:00 CDTNotes: Do not exceed 4 gm/day. (Same as: Tylenol) No Longer Active 06/12/2018 [facility] Zofran 4 mg, 2 mL, Route: IV, Drug form: INJ, Q6H, Dosing Weight 102.273, kg, PRN Nausea, Priority: STAT, Start date: 06/11/18 21:25:00 CDT, Duration: 30 day, Stop date: 07/11/18 21:24:00 CDTNotes: (Same as: Zofran) MEDICATION WASTE Product Size: 4 mg Product Wasted: ___ mg No Longer Active 06/12/2018 [facility] Singulair 10 mg, 1 tab, Route: PO, Drug form: TAB, Bedtime, Dosing Weight 102.273, kg, Start date: 06/11/18 21:00:00 CDT, Duration: 30 day, Stop date: 07/10/18 21:00:00 CDTNotes: (Same as:Singulair) No Longer Active 06/12/2018 [facility] gabapentin 400 MG Oral Capsule 200 mg, 2 cap, Route: PO, Drug form: CAP, TID, Dosing Weight 102.273, kg, Start date: 06/11/18 21:00:00 CDT, Duration: 30 day, Stop date: 07/11/18 15:00:00 CDTNotes: (Same as: Neurontin) No Longer Active 06/12/2018 [facility] Clonazepam 0.5 mg, 1 tab, Route: PO, Drug form: TAB, QID, Dosing Weight 102.273, kg, Start date: 06/11/18 21:00:00 CDT, Duration: 30 day, Stop date: 07/11/18 17:00:00 CDTNotes: (Same As: KlonoPIN) No Longer Active 06/12/2018 [facility] Buspirone 7.5 mg, 1.5 tab, Route: PO, Drug form: TAB, BID, Dosing Weight 102.273, kg, Start date: 06/11/18 21:00:00 CDT, Duration: 30 day, Stop date: 07/11/18 9:00:00 CDTNotes: (Same As: BuSpar) No Longer Active 06/12/2018 [facility] Nicotine 7 mg, 1 patch, Route: TOP, Drug form: ERFILM, Q24H, Dosing Weight 102.273, kg, Start date: 06/11/18 21:00:00 CDT, Duration: 30 day, Stop date: 07/10/18 21:00:00 CDT No Longer Active 06/12/2018 [facility] *NURSE please bring home med METFORMIN to Pharmacy for label *NURSE please bring home med METFORMIN to Pharmacy for label, 1, Drug form: MISC, Route: MISC, TID, 06/11/18 20:00:00 CDT, Duration: 30 day, Stop date: 07/11/18 15:00:00 CDT No Longer Active 06/12/2018 [facility] Sodium Chloride 0.45% IV 1,000 mL 1,000 mL, Rate: 50 ml/hr, Infuse over: 20 hr, Route: IV, Dosing Weight 102.273 kg, Total Volume: 1,000, Start date: 06/11/18 18:11:00 CDT, Duration: 30 day, Stop date: 07/11/18 18:10:00 CDT, 2.18, m2 No Longer Active 06/11/2018 [facility] Tramadol 50 mg, Route: PO, Drug form: TAB, ONCE, Dosing Weight 102.273, kg, > 50 kg, Priority: STAT, Start date: 06/11/18 17:11:00 CDT, Stop date: 06/11/18 17:11:00 CDT Inactive 06/11/2018 [facility] 24 HR Metformin hydrochloride 750 MG Extended Release Tablet 750 mg=1 tab, PO, BID, 0 Refill(s) Active 06/11/2018 [facility] lisinopril 2.5 mg oral tablet 2.5 mg=1 tab, PO, Daily, 0 Refill(s) No Longer Active 06/11/2018 [facility] quetiapine 100 MG Oral Tablet [Seroquel] 150 mg=1.5 tab, PO, Bedtime, 0 Refill(s) No Longer Active 06/11/2018 [facility] 3 ML insulin detemir 100 UNT/ML Prefilled Syringe [Levemir] 32 unit, SUB-Q, BID, 0 Refill(s) No Longer Active 06/11/2018 [facility] Insulin Lispro 100 UNT/ML Injectable Solution [Humalog] 10 unit, SUB-Q, TID, 0 Refill(s) No Longer Active 06/11/2018 [facility] gabapentin 400 MG Oral Capsule 400 mg=1 cap, PO, TID, 0 Refill(s) No Longer Active 06/11/2018 [facility] clonazePAM 0.5 mg oral tablet 0.5 mg=1 tab, PO, QID, 0 Refill(s) Active 06/11/2018 [facility] busPIRone 7.5 mg oral tablet 7.5 mg=1 tab, PO, BID, 0 Refill(s) No Longer Active 06/11/2018 [facility] Omeprazole 40 mg, Route: PO, Drug form: DRC, Daily, Dosing Weight 99.5, kg, Start date: 11/18/17 9:00:00 [employer], Duration: 30 day, Stop date: 12/17/17 9:00:00 [employer] No Longer Active 11/18/2017 [facility] Singulair 10 mg, 1 tab, Route: PO, Drug form: TAB, Daily, Dosing Weight 99.5, kg, Start date: 11/18/17 9:00:00 [employer] [employer], Duration: 30 day, Stop date: 12/17/17 9:00:00 CSTNotes: (Same as:Singulair) No Longer Active 11/18/2017 [facility] Abilify 10 mg, Route: PO, Drug form: TAB, Daily, Dosing Weight 99.5, kg, Start date: 11/18/17 9:00:00 [employer] [employer], Duration: 30 day, Stop date: 12/17/17 9:00:00 [employer] No Longer Active 11/18/2017 [facility] Plavix 75 mg, 1 tab, Route: PO, Drug form: TAB, Daily, Dosing Weight 99.5, kg, Start date: 11/18/17 9:00:00 [employer], Duration: 30 day, Stop date: 12/17/17 9:00:00 CSTNotes: (Same As: Plavix) No Longer Active 11/18/2017 [facility] Protonix 40 mg, 1 tab, Route: PO, Drug form: ECTAB, Before Breakfast, Start date: 11/18/17 7:30:00 [employer], Duration: 30 day, Stop date: 12/17/17 7:30:00 CSTNotes: Tablet should not be chewed or crushed. (Same as: Protonix) No Longer Active 11/18/2017 [facility] Fluoxetine 40 mg, 4 cap, Route: PO, Drug form: CAP, QPM, Dosing Weight 99.5, kg, Start date: 11/17/17 17:00:00 [employer] [employer], Duration: 30 day, Stop date: 12/16/17 17:00:00 CSTNotes: (Same as: Prozac) Inactive 11/17/2017 [facility] have [facility] verify & bar-code pt own Abilify have [facility] verify & bar-code pt own Abilify, reminder, Drug form: MISC, Route: MISC, QSHIFT, 11/17/17 16:00:00 [employer] [employer], Duration: 30 day, Stop date: 12/17/17 8:00:00 [employer] Inactive 11/17/2017 [facility] gabapentin 300 MG Oral Capsule 300 mg, 1 cap, Route: PO, Drug form: CAP, TID, Dosing Weight 99.5, kg, Start date: 11/17/17 13:00:00 [employer], Duration: 30 day, Stop date: 12/17/17 9:00:00 CSTNotes: (Same as: Neurontin) Inactive 11/17/2017 [facility] Magnesium Sulfate 2 gm, 50 mL, Route: IVPB, Drug form: INJ, ONCE, Dosing Weight 99.5, kg, Start date: 11/17/17 12:44:00 [employer], Stop date: 11/17/17 12:44:00 CSTNotes: WASTE: F/P - Sink; E - Municipal Trash Bin Inactive 11/17/2017 [facility] Humalog 100 units/mL 5 unit, SUB-Q, TID-Before Meals, # 10 mL, 0 Refill(s), other Active 11/17/2017 [facility] 3 ML insulin detemir 100 UNT/ML Prefilled Syringe [Levemir] 16 unit, SUB-Q, BID, # 10 mL, 0 Refill(s), other Active 11/17/2017 [facility] Acetaminophen 325 MG / Hydrocodone Bitartrate 10 MG Oral Tablet 1 tab, Route: PO, Drug Form: TAB, Dosing Weight 99.5, kg, Q6H, PRN Pain Score 4-6, Start date: 11/17/17 3:25:00 [employer], Duration: 30 day, Stop date: 12/17/17 3:24:00 CSTNotes: Do not exceed 4gm/day of acetaminophen. (Same as: [place] 325/10) Inactive 11/17/2017 [facility] Acetaminophen 325 MG / Hydrocodone Bitartrate 5 MG Oral Tablet 1 tab, PO, Q4H, PRN Pain Score 4-6, 0 Refill(s) Active 11/17/2017 [facility] Dextrose 5% with 0.45% NaCl IV 1,000 mL 1,000 mL, Rate: 75 ml/hr, Infuse over: 13.3 hr, Route: IV, Dosing Weight 99.5 kg, Total Volume: 1,000, Start date: 11/17/17 1:23:00 [employer], Stop date: 12/17/17 1:22:00 [employer] [employer], 2.15, m2 Inactive 11/17/2017 [facility] Acetaminophen 650 mg, Route: PO, Drug form: TAB, ONCE, Dosing Weight 90.909, kg, Priority: STAT, Start date: 11/17/17 0:20:00 [employer], Stop date: 11/17/17 0:20:00 [employer] Inactive 11/17/2017 [facility] Dextrose 10% in Water IV 1,000 mL 1,000 mL, Rate: 100 ml/hr, Infuse over: 10 hr, Route: IV, Dosing Weight 90.909 kg, Total Volume: 1,000, Start date: 11/16/17 22:00:00 [employer], Duration: 30 day, Stop date: 12/16/17 21:59:00 [employer], 2.06, m2 No Longer Active 11/17/2017 [facility] Ondansetron 4 mg, 2 mL, Route: IVP, Drug form: INJ, Q6H, Dosing Weight 90.909, kg, PRN Nausea & Vomiting, Start date: 11/16/17 21:40:00 [employer], Duration: 30 day, Stop date: 12/16/17 21:39:00 CSTNotes: (Same as: Zofran) MEDICATION WASTE Product Size: 4 mg Product Wasted: ___ mg No Longer Active 11/17/2017 [facility] Acetaminophen 325 mg, 1 tab, Route: PO, Drug form: TAB, Q4H, Dosing Weight 90.909, kg, PRN Pain Score 4-6, Start date: 11/16/17 21:40:00 [employer], Duration: 30 day, Stop date: 12/16/17 21:39:00 CSTNotes: Do not exceed 4 gm/day. (Same as: Tylenol) No Longer Active 11/17/2017 [facility] D10W 980.75 mL + sodium chloride 23.4% IV 77 mEq 980.75 mL, Rate: 100 ml/hr, Infuse over: 10 hr, Route: IV, Dosing Weight 90.909 kg, Total Volume: 1,000, Start date: 11/16/17 21:18:00 [employer], Duration: 30 day, Stop date: 12/16/17 21:17:00 [employer] [employer], 2.06, m2 Inactive 11/17/2017 [facility] Trazodone Hydrochloride 100 MG Oral Tablet 200 mg=2 tab, PO, Bedtime, PRN Insomnia, 0 Refill(s) No Longer Active 11/17/2017 [facility] clonazePAM 1 mg oral tablet 1 mg=1 tab, PO, TID, PRN Anxiety, 0 Refill(s) Active 11/17/2017 [facility] FLUoxetine 40 mg oral capsule 40 mg=1 cap, PO, QPM, 0 Refill(s) Active 11/17/2017 [facility] clopidogrel 75 MG Oral Tablet [Plavix] 75 mg=1 tab, PO, Daily, 0 Refill(s) Active 11/17/2017 [facility] montelukast 10 MG Oral Tablet [Singulair] 10 mg=1 tab, PO, Daily, 0 Refill(s) Active 11/17/2017 [facility] omeprazole 40 mg oral delayed release capsule 40 mg=1 cap, PO, Daily, 0 Refill(s) Active 11/17/2017 [facility] 3 ML insulin detemir 100 UNT/ML Prefilled Syringe [Levemir] 32 unit, SUB-Q, BID, 0 Refill(s) No Longer Active 11/17/2017 [facility] Humalog 100 units/mL 10 unit, SUB-Q, TID-Before Meals, 0 Refill(s) No Longer Active 11/17/2017 [facility] gabapentin 300 MG Oral Capsule 300 mg=1 cap, PO, TID, 0 Refill(s) Active 11/17/2017 [facility] Albuterol 0.83 MG/ML Inhalant Solution 2.5 mg=3 mL, NEB, Daily, 0 Refill(s) Active 11/17/2017 [facility] aripiprazole 10 MG Oral Tablet [Abilify] 10 mg=1 tab, PO, Daily, 0 Refill(s) Active 11/17/2017 [facility] d50 syringe 50 mL, Route: IVP, Dosing Weight 90.909, kg, ONCE, STAT, Start date: 11/16/17 19:14:00 [employer], Stop date: 11/16/17 19:14:00 [employer], 25 ml=12.5 gm Inactive 11/17/2017 [facility] Sodium Chloride 0.9% (Bolus) IV 2,000 mL, 2,000 ml/hr, Infuse Over: 1 hr, Route: IV, ONCE, Priority: STAT, Dosing Weight 90.909 kg, Start date: 11/16/17 19:04:00 [employer], Stop date: 11/16/17 19:04:00 [employer] Inactive 11/17/2017 [facility] D5W 1/2NS 1,000 mL 1,000 mL, Rate: 100 ml/hr, Infuse over: 10 hr, Route: IV, Total Volume: 1,000, Priority: STAT, Start date: 11/16/17 18:52:00 [employer], Duration: 30 day, Stop date: 12/16/17 18:51:00 [employer] Inactive 11/17/2017 [facility] Allergies, Adverse Reactions, Alerts Substance Category Reaction Severity Reaction type Status Date Reported Comments Source sulfa drugs Assertion Drug allergy Active [facility] aspirin Assertion Drug allergy Active [facility] iodine Assertion Drug allergy Active [facility] NSAIDs Assertion Drug allergy Active [facility] predniSONE Assertion Drug allergy Active [facility] Immunizations Immunization Date Given Site Status Last Updated Comments Source Results Order Name Results Value Reference Range Date Interpretation Comments Source CARDIAC ENZYMES Troponin-I null 0.00 - 0.40 02/28/2019 [facility] CARDIAC ENZYMES Troponin-I null 0.00 - 0.40 02/28/2019 [facility] CARDIAC ENZYMES BNP 49 pg/mL <=100 pg/mL 02/27/2019 [facility] CARDIAC ENZYMES Troponin-I null 0.00 - 0.40 02/27/2019 [facility] CARDIAC ENZYMES Total CK 69 unit/L 12 - 191 02/27/2019 [facility] CHEM PANEL Phosphorus 2.8 mg/dL 2.5 - 4.5 02/27/2019 [facility] CHEM PANEL Magnesium Lvl 1.7 mg/dL 1.8 - 2.4 02/27/2019 [facility] DRUG SCREEN UDS Note See Note (02/27/19 3:04 PM) 02/27/2019 [facility] DRUG SCREEN U Phencyclidine Scr Negative *NA* (02/27/19 3:04 PM) Negative 02/27/2019 [facility] DRUG SCREEN U Amph Scr Negative *NA* (02/27/19 3:04 PM) Negative 02/27/2019 [facility] DRUG SCREEN U Ciara Scr Negative *NA* (02/27/19 3:04 PM) Negative 02/27/2019 [facility] DRUG SCREEN U Cocaine Scr Negative *NA* (02/27/19 3:04 PM) Negative 02/27/2019 [facility] DRUG SCREEN U Opiate Scr Positive *ABN* (02/27/19 3:04 PM) Negative 02/27/2019 [facility] DRUG SCREEN U Cannab Scr Negative *NA* (02/27/19 3:04 PM) Negative [facility]/2019 [facility] [facility] DRUG SCREEN U Benzodiaz Scr Negative *NA* (02/27/19 3:04 PM) Negative 02/27/2019 [facility] ELECTROLYTES AGAP 12.8 meq/L 10.0 - 20.0 02/27/2019 [facility] ELECTROLYTES A/G Ratio 0.8 0.7 - 1.6 02/27/2019 [facility] ELECTROLYTES Globulin 3.9 g/dL 2.7 - 4.2 02/27/2019 [facility] ELECTROLYTES B/C Ratio 22 6 - 25 02/27/2019 [facility] ELECTROLYTES eGFR 60 mL/min/1.73m2 02/27/2019 Result Comment: The eGFR is calculated using [...] should be multiplied by the estimated BMI. [facility] ELECTROLYTES Glucose Lvl 199 mg/dL 70 - 99 02/27/2019 [facility] ELECTROLYTES Chloride Lvl 107 meq/L 95 - 109 02/27/2019 [facility] ELECTROLYTES Potassium Lvl 4.8 meq/L 3.5 - 5.1 02/27/2019 [facility] ELECTROLYTES Sodium Lvl 142 meq/L 135 - 145 02/27/2019 [facility] ELECTROLYTES Creatinine Lvl 1.05 mg/dL 0.50 - 1.40 02/27/2019 [facility] ELECTROLYTES BUN 23 mg/dL 7 - 22 02/27/2019 [facility] ELECTROLYTES Albumin Lvl 3.3 g/dL 3.5 - 5.0 02/27/2019 [facility] Total Protein 7.2 g/dL 6.4 - 8.4 02/27/2019 [facility] ELECTROLYTES Calcium Lvl 9.7 mg/dL 8.5 - 10.5 02/27/2019 [facility] ELECTROLYTES CO2 27 meq/L 24 - 32 02/27/2019 [facility] ELECTROLYTES Bili Total 0.3 mg/dL 0.2 - 1.3 02/27/2019 [facility] ELECTROLYTES Alk Phos 196 unit/L 39 - 136 02/27/2019 [facility] ELECTROLYTES AST 10 unit/L 0 - 37 02/27/2019 [facility] ELECTROLYTES ALT 15 unit/L 0 - 65 02/27/2019 [facility] HEMATOLOGY INR 0.94 0.85 - 1.17 02/27/2019 [facility] HEMATOLOGY PT 12.4 s 12.0 - 14.7 02/27/2019 [facility] HEMATOLOGY RDW 18.7 % 11.5 - 14.5 02/27/2019 [facility] HEMATOLOGY Platelet 318 K/CMM 133 - 450 02/27/2019 [facility] WBC 12.3 K/CMM 3.7 - 10.4 02/27/2019 [facility] RBC 4.32 M/CMM 4.20 - 5.40 02/27/2019 [facility] Hgb 11.6 g/dL 12.0 - 16.0 02/27/2019 [facility] Hct 35.8 % 36.0 - 48.0 02/27/2019 [facility] MPV 8.9 fL 7.4 - 10.4 02/27/2019 [facility] HEMATOLOGY MCV 82.8 fL 80.0 - 98.0 02/27/2019 [facility] MCH 26.8 pg 27.0 - 31.0 02/27/2019 [facility] MCHC 32.4 g/dL 32.0 - 36.0 02/27/2019 [facility] HEMATOLOGY Basophils # 0.1 K/CMM 0.0 - 0.2 02/27/2019 [facility] HEMATOLOGY Basophils 0.8 % 0.0 - 1.0 02/27/2019 [facility] HEMATOLOGY Eosinophils # 0.2 K/CMM 0.0 - 0.5 02/27/2019 [facility] HEMATOLOGY Lymphocytes 25.7 % 20.0 - 40.0 02/27/2019 [facility] HEMATOLOGY Eosinophils 1.3 % 0.0 - 4.0 02/27/2019 [facility] HEMATOLOGY Monocytes 5.8 % 2.0 - 12.0 02/27/2019 [facility] HEMATOLOGY Segs 66.4 % 45.0 - 75.0 02/27/2019 [facility] HEMATOLOGY Neutrophils # 8.1 K/CMM 1.5 - 8.1 02/27/2019 [facility] HEMATOLOGY Lymphocytes # 3.1 K/CMM 1.0 - 5.5 02/27/2019 [facility] HEMATOLOGY Monocytes # 0.7 K/CMM 0.0 - 0.8 02/27/2019 [facility] URINE AND STOOL UA Urobilinogen <=1.0 mg/dL 0.1 - 1.0 02/27/2019 [facility] URINE AND STOOL UA Hyal Cast 5 /LPF 0 - 2 02/27/2019 [facility] URINE AND STOOL UA WBC 1 /HPF 0 - 5 02/27/2019 [facility] URINE AND STOOL UA Sq Epi Many /LPF Few /LPF 02/27/2019 [facility] URINE AND STOOL UA RBC null 0 - 2 02/27/2019 [facility] URINE AND STOOL UA Nitrite Negative (02/27/19 3:04 PM) Negative 02/27/2019 [facility] URINE AND STOOL UA Blood Negative (02/27/19 3:04 PM) Negative 02/27/2019 [facility] URINE AND STOOL UA Leuk Est Negative (02/27/19 3:04 PM) Negative 02/27/2019 [facility] URINE AND STOOL UA Bili Negative *NA* (02/27/19 3:04 PM) Negative 02/27/2019 [facility] URINE AND STOOL UA Ketones Negative mg/dL Negative mg/dL 02/27/2019 [facility] URINE AND STOOL UA pH 5.0 5.0 - 8.0 02/27/2019 [facility] URINE AND STOOL UA Protein Negative mg/dL Negative mg/dL 02/27/2019 [facility] URINE AND STOOL UA Color Yellow *NA* (02/27/19 3:04 PM) Yellow 02/27/2019 [facility] URINE AND STOOL UA Spec Grav 1.013 <=1.030 02/27/2019 [facility] URINE AND STOOL UA Turbidity Clear (02/27/19 3:04 PM) Clear 02/27/2019 [facility] URINE AND STOOL UA Glucose 500 mg/dL Negative mg/dL 02/27/2019 [facility] Chest 1view DX Chest 1view DX Clinical Indication: - cp Comparison: Prior chest radiograph dated 02/02/2019. FINDINGS: The portable AP single view radiograph provided for review. Overlapping electrocardiogram leads and wires noted. The exam demonstrates normal lung volumes without dense airspace consolidation, large pleural effusion or detectable pneumothorax. The heart size and pulmonary vasculature are normal. The trachea is midline. There are no clinically significant osseous abnormalities noted. IMPRESSION: No chest radiographic evidence of acute cardiopulmonary disease. SL: RICKYMariaelena 02/27/2019 - - Read by: Alanis Crawford MD Dictated Date/time: 02/27/19 15:22 Electronically Signed by: Alanis Crawford MD 02/27/19 15:24 FINAL REPORT [facility] ANEMIA STUDY Iron 23 ug/dl 30 - 160 02/06/2019 [facility] ANEMIA STUDY TIBC 287 ug/dl 228 - 428 02/06/2019 [facility] ANEMIA STUDY % Satur Fe 8 % 12 - 57 02/06/2019 [facility] ANEMIA STUDY UIBC 264 ug/dl 110 - 370 02/06/2019 [facility] ANEMIA STUDY Folate Lvl 10.3 ng/mL >=3.0 ng/mL 02/06/2019 [facility] ANEMIA STUDY Vitamin B12 Lvl 378 pg/mL 254 - 1320 02/06/2019 [facility] ANEMIA STUDY Ferritin Lvl 32 ng/mL 5 - 204 02/06/2019 [facility] CHEM PANEL LDH 189 unit/L 98 - 192 02/06/2019 [facility] Hct 29.9 % 36.0 - 48.0 02/06/2019 [facility] MCV 82.9 fL 80.0 - 98.0 02/06/2019 [facility] RDW 18.0 % 11.5 - 14.5 02/06/2019 [facility] MCHC 31.7 g/dL 32.0 - 36.0 02/06/2019 [facility] MCH 26.2 pg 27.0 - 31.0 02/06/2019 [facility] MPV 8.4 fL 7.4 - 10.4 02/06/2019 [facility] Platelet 372 K/CMM 133 - 450 02/06/2019 [facility] RBC 3.60 M/CMM 4.20 - 5.40 02/06/2019 [facility] WBC 11.1 K/CMM 3.7 - 10.4 02/06/2019 [facility] Hgb 9.5 g/dL 12.0 - 16.0 02/06/2019 [facility] Retic Auto 1.9 % 0.5 - 1.5 02/06/2019 [facility] HEMATOLOGY PTT 72.9 s 22.9 - 35.8 02/05/2019 [facility] HEMATOLOGY PTT 65.4 s 22.9 - 35.8 02/05/2019 [facility] HEMATOLOGY PTT 48.0 s 22.9 - 35.8 02/04/2019 [facility] CHEM PANEL eGFR 98 mL/min/1.73m2 02/04/2019 Result Comment: The eGFR is calculated using [...] should be multiplied by the estimated BMI. [facility] CHEM PANEL Potassium Lvl 4.4 meq/L 3.5 - 5.1 02/04/2019 [facility] CHEM PANEL Chloride Lvl 110 meq/L 95 - 109 02/04/2019 [facility] CHEM PANEL BUN 14 mg/dL 7 - 22 02/04/2019 [facility] CHEM PANEL Sodium Lvl 143 meq/L 135 - 145 02/04/2019 [facility] CHEM PANEL Glucose Lvl 174 mg/dL 70 - 99 02/04/2019 [facility] CHEM PANEL Creatinine Lvl 0.69 mg/dL 0.50 - 1.40 02/04/2019 [facility] CHEM PANEL CO2 30 meq/L 24 - 32 02/04/2019 [facility] CHEM PANEL AGAP 7.4 meq/L 10.0 - 20.0 02/04/2019 [facility] CHEM PANEL Calcium Lvl 9.2 mg/dL 8.5 - 10.5 02/04/2019 [facility] RBC 3.70 M/CMM 4.20 - 5.40 02/04/2019 [facility] Hgb 9.6 g/dL 12.0 - 16.0 02/04/2019 [facility] Platelet 312 K/CMM 133 - 450 02/04/2019 [facility] HEMATOLOGY MPV 8.3 fL 7.4 - 10.4 02/04/2019 [facility] WBC 7.3 K/CMM 3.7 - 10.4 02/04/2019 [facility] HEMATOLOGY Hct 31.0 % 36.0 - 48.0 02/04/2019 [facility] RDW 18.0 % 11.5 - 14.5 02/04/2019 [facility] MCV 83.8 fL 80.0 - 98.0 02/04/2019 [facility] MCHC 31.0 g/dL 32.0 - 36.0 02/04/2019 [facility] MCH 26.0 pg 27.0 - 31.0 02/04/2019 [facility] CHEM PANEL eGFR 60 mL/min/1.73m2 02/04/2019 Result Comment: The eGFR is calculated using [...] should be multiplied by the estimated BMI. [facility] CHEM PANEL BUN 19 mg/dL 7 - 22 02/04/2019 [facility] CHEM PANEL Glucose Lvl 424 mg/dL 70 - 99 02/04/2019 Result Comment: Critical Result(s) called to Shivam Mccain at 02/03/2019 21:58 by wx. Read back OK. [facility] CHEM PANEL AGAP 10.4 meq/L 10.0 - 20.0 02/04/2019 [facility] CHEM PANEL CO2 27 meq/L 24 - 32 02/04/2019 [facility] CHEM PANEL Chloride Lvl 103 meq/L 95 - 109 02/04/2019 [facility] CHEM PANEL Sodium Lvl 135 meq/L 135 - 145 02/04/2019 [facility] CHEM PANEL Potassium Lvl 5.4 meq/L 3.5 - 5.1 02/04/2019 [facility] CHEM PANEL Calcium Lvl 9.1 mg/dL 8.5 - 10.5 02/04/2019 [facility] CHEM PANEL Creatinine Lvl 1.04 mg/dL 0.50 - 1.40 02/04/2019 [facility] CARDIAC ENZYMES Troponin-I 1.40 ng/mL 0.00 - 0.40 02/03/2019 Result Comment: Critical Result(s) called to bakari ivan at 02/03/2019 10:45 by EFA. Read back OK. [facility] Lymphocytes 33.8 % 20.0 - 40.0 02/03/2019 [facility] Monocytes 6.3 % 2.0 - 12.0 02/03/2019 [facility] Segs 58.8 % 45.0 - 75.0 02/03/2019 [facility] Eosinophils 0.5 % 0.0 - 4.0 02/03/2019 [facility] Basophils 0.6 % 0.0 - 1.0 02/03/2019 [facility] Neutrophils # 5.5 K/CMM 1.5 - 8.1 02/03/2019 [facility] Lymphocytes # 3.2 K/CMM 1.0 - 5.5 02/03/2019 [facility] Monocytes # 0.6 K/CMM 0.0 - 0.8 02/03/2019 [facility] Basophils # 0.1 K/CMM 0.0 - 0.2 02/03/2019 [facility] Hct 30.4 % 36.0 - 48.0 02/03/2019 [facility] MCV 83.2 fL 80.0 - 98.0 02/03/2019 [facility] RBC 3.65 M/CMM 4.20 - 5.40 02/03/2019 [facility] Hgb 9.6 g/dL 12.0 - 16.0 02/03/2019 [facility] MCH 26.3 pg 27.0 - 31.0 02/03/2019 [facility] WBC 9.4 K/CMM 3.7 - 10.4 02/03/2019 [facility] Platelet 269 K/CMM 133 - 450 02/03/2019 [facility] MCHC 31.5 g/dL 32.0 - 36.0 02/03/2019 [facility] MPV 8.0 fL 7.4 - 10.4 02/03/2019 [facility] RDW 18.0 % 11.5 - 14.5 02/03/2019 [facility] URINE AND STOOL UA Turbidity Clear (02/02/19 10:54 PM) Clear 02/03/2019 [facility] URINE AND STOOL UA Color Ltyellow 02/03/2019 [facility] URINE AND STOOL UA Spec Grav 1.008 <=1.030 02/03/2019 [facility] URINE AND STOOL UA pH 5.0 5.0 - 8.0 02/03/2019 [facility] URINE AND STOOL UA Protein Negative (02/02/19 10:54 PM) Negative 02/03/2019 [facility] URINE AND STOOL UA Sq Epi Few /LPF Few /LPF 02/03/2019 [facility] URINE AND STOOL UA RBC 1 /HPF 0 - 2 02/03/2019 [facility] URINE AND STOOL UA WBC 1 /HPF 0 - 5 02/03/2019 [facility] URINE AND STOOL UA Nitrite Negative (02/02/19 10:54 PM) Negative 02/03/2019 [facility] URINE AND STOOL UA Leuk Est Trace *ABN* (02/02/19 10:54 PM) Negative 02/03/2019 [facility] URINE AND STOOL UA Bacteria Occasional /HPF None Seen /HPF 02/03/2019 [facility] URINE AND STOOL UA Hyal Cast 1 /LPF 0 - 2 02/03/2019 [facility] URINE AND STOOL UA Blood Negative (02/02/19 10:54 PM) Negative 02/03/2019 [facility] URINE AND STOOL UA Bili Negative *NA* (02/02/19 10:54 PM) Negative 02/03/2019 [facility] URINE AND STOOL UA Urobilinogen <=1.0 mg/dL 0.1 - 1.0 02/03/2019 [facility] URINE AND STOOL UA Glucose 50 mg/dL Negative mg/dL 02/03/2019 [facility] URINE AND STOOL UA Ketones Negative *NA* (02/02/19 10:54 PM) Negative 02/03/2019 [facility] CARDIAC ENZYMES Troponin-I 2.90 ng/mL 0.00 - 0.40 02/02/2019 Result Comment: Critical Result(s) called to myles estrada at 02/02/2019 19:00 by catherine. Read back OK. [facility] CARDIAC ENZYMES Troponin-I 2.70 ng/mL 0.00 - 0.40 02/02/2019 Result Comment: Critical Result(s) called to myles estrada at 02/02/2019 18:08 by pj. Read back OK. [facility] CHEM PANEL Phosphorus 2.6 mg/dL 2.5 - 4.5 02/02/2019 [facility] CHEM PANEL Magnesium Lvl 1.9 mg/dL 1.8 - 2.4 02/02/2019 [facility] CHEM PANEL Lipase Lvl 43 unit/L 73 - 393 02/02/2019 [facility] CHEM PANEL eGFR 44 mL/min/1.73m2 02/02/2019 Result Comment: The eGFR is calculated using [...] by the estimated BMI. [facility] CHEM PANEL Bili Total 0.3 mg/dL 0.2 - 1.3 02/02/2019 [facility] CHEM PANEL Alk Phos 154 unit/L 39 - 136 02/02/2019 [facility] CHEM PANEL Total Protein 6.4 g/dL 6.4 - 8.4 02/02/2019 [facility] CHEM PANEL Albumin Lvl 2.7 g/dL 3.5 - 5.0 02/02/2019 [facility] CHEM PANEL Sodium Lvl 134 meq/L 135 - 145 02/02/2019 [facility] CHEM PANEL Glucose Lvl 121 mg/dL 70 - 99 02/02/2019 [facility] CHEM PANEL CO2 26 meq/L 24 - 32 02/02/2019 [facility] CHEM PANEL Calcium Lvl 8.8 mg/dL 8.5 - 10.5 02/02/2019 [facility] CHEM PANEL Creatinine Lvl 1.35 mg/dL 0.50 - 1.40 02/02/2019 [facility] CHEM PANEL BUN 29 mg/dL 7 - 22 02/02/2019 [facility] CHEM PANEL Potassium Lvl 4.2 meq/L 3.5 - 5.1 02/02/2019 [facility] CHEM PANEL Chloride Lvl 104 meq/L 95 - 109 02/02/2019 [facility] CHEM PANEL AST 23 unit/L 0 - 37 02/02/2019 [facility] CHEM PANEL ALT 14 unit/L 0 - 65 02/02/2019 [facility] CHEM PANEL A/G Ratio 0.7 0.7 - 1.6 02/02/2019 [facility] CHEM PANEL Globulin 3.7 g/dL 2.7 - 4.2 02/02/2019 [facility] CHEM PANEL B/C Ratio 21 6 - 25 02/02/2019 [facility] CHEM PANEL AGAP 8.2 meq/L 10.0 - 20.0 02/02/2019 [facility] Lymphocytes 32.8 % 20.0 - 40.0 02/02/2019 [facility] Basophils 0.8 % 0.0 - 1.0 02/02/2019 [facility] Eosinophils 0.2 % 0.0 - 4.0 02/02/2019 [facility] Monocytes 7.5 % 2.0 - 12.0 02/02/2019 [facility] Segs 58.7 % 45.0 - 75.0 02/02/2019 [facility] Basophils # 0.1 K/CMM 0.0 - 0.2 02/02/2019 [facility] Monocytes # 0.9 K/CMM 0.0 - 0.8 02/02/2019 [facility] Lymphocytes # 4.0 K/CMM 1.0 - 5.5 02/02/2019 [facility] Neutrophils # 7.2 K/CMM 1.5 - 8.1 02/02/2019 [facility] INR 1.09 0.85 - 1.17 02/02/2019 [facility] PT 13.9 s 12.0 - 14.7 02/02/2019 [facility] Chest/Abdomen/Pelvis wo IV contrast CT Chest/Abdomen/Pelvis wo IV contrast CT CLINICAL INDICATION: fall, back pain, hypoxia, lethargy. Elevated blood glucose level. COMPARISON: CT 08/29/2018 and 12/09/2016. TECHNIQUE: Multi-detector CT imaging of the chest, abdomen and pelvis was performed without contrast. Coronal and sagittal reconstructions were obtained. CT imaging performed at this location utilizes radiation dose optimization techniques which include one or more of the following: -Automated exposure control -Adjustment of the mA and/or kV according to patient size -Use of iterative reconstruction technique CT Radiation Dose DLP 1317 mGy-cm CT CHEST WITHOUT CONTRAST: LUNG PARENCHYMA AND PLEURA: Mild dependent atelectasis, left greater than the right. Mild mosaic attenuation in the lungs is grossly stable. No new dominant pulmonary nodule or mass. AIRWAY: The central airway is normal. HEART: The heart size is normal. There is no pericardial effusion. LYMPH NODES: No knee significant axillary, mediastinal, or hilar lymphadenopathy by size criteria. Evaluation of the laury is limited due to lack of IV contrast. 1 cm right paratracheal lymph node is stable. VASCULAR STRUCTURES: The main pulmonary artery measures 2.9 cm. The ascending aorta measures 2.8 cm. Atherosclerotic calcifications are identified, including coronary artery calcifications. The superior vena cava is unremarkable. OSSEOUS STRUCTURES: There appear to be subacute and nearly healed fractures of the left 4th and 5th ribs, anterolaterally. No definite acute fracture is seen. THYROID: There are nonspecific calcifications in the thyroid, bilaterally, stable. CT ABDOMEN AND PELVIS WITHOUT CONTRAST: ABDOMINAL SOLID ORGANS: The unopacified liver, spleen, pancreas, adrenal glands and kidneys demonstrate stable appearance without acute abnormality. Fat stranding around the kidneys is seen. Punctate right renal stones are noted. Atrophy of the pancreas is noted. STOMACH AND BOWEL: The stomach is unremarkable. No evidence of bowel obstruction is identified. Small fat-containing umbilical hernia is seen. PERITONEUM AND RETROPERITONEUM: There is no lymphadenopathy by size criteria. There is no pneumoperitoneum or ascites. The retroperitoneal region appears unremarkable. VASCULAR STRUCTURES: The abdominal aorta demonstrates no aneurysm. Atherosclerotic calcifications are noted. BLADDER: The bladder appears unremarkable. PELVIC ORGANS: The uterus is absent. OSSEOUS STRUCTURES: No acute osseous abnormality is identified. Degenerative changes are noted. IMPRESSION: No acute abnormality in the chest, abdomen, or pelvis on this noncontrast study. Subacute fractures of the left 4th and 5th ribs. Please refer to the other findings detailed above. SL: MEGHAN 02/02/2019 - - Read by: Quinn Borjas MD Dictated Date/time: 02/02/19 18:42 Electronically Signed by: Quinn Borjas MD 02/02/19 18:52 FINAL REPORT [facility] Spine cervical wo contrast CT Spine cervical wo contrast CT Clinical Indication: - fall ams. Comparison: Radiograph of the cervical spine dated 04/29/[address] brain study dated 06/11/2018 and 11/16/2017. TECHNIQUE: CT images were obtained from the foramen magnum to the vertex and cervical spine without the use of intravenous contrast on a multidetector CT. Coronal and sagittal reconstructions were obtained. CT imaging performed at this location utilizes radiation dose optimization techniques which include one or more of the following: -Automated exposure control -Adjustment of the mA and/or kV according to patient size -Use of iterative reconstruction technique CT Radiation Dose DLP 992.08 mGy-cm CT Radiation Dose DLP 902.20 mGy-cm FINDINGS: CT brain: BRAIN PARENCHYMA AND VENTRICLES: There is no acute intracranial hemorrhage, extra-axial collection, hydrocephalus, mass effect or midline shift. There are subtle nonspecific hypodensities in the subcortical white matter. The ventricles and the cortical sulci are appropriate for age. Intracranial vascular atherosclerotic calcifications noted. SKULL: There are no osseous abnormalities. 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 ORBITS, MASTOIDS AND PARANASAL SINUSES: Right pseudophakia. Persistent curvilinear hyperdensity along the posterior aspect of the left globe. The limited visualized paranasal sinuses are unremarkable. Mild patchy lateral mastoid tip effusion, right more than the left. If there is further concern for intracranial pathology or acute stroke, MRI of the brain may be performed for complete assessment. CT cervical spine: ALIGNMENT AND GENERAL ASSESSMENT: There is normal alignment of the cervical spine. The cervical vertebrae demonstrate normal height. There are multilevel marginal endplate osteophytosis. Mild reduction in intervertebral disc height at C6-C7. Rest of the intervertebral disc heights are maintained. No acute fracture, facetal dislocation or disc disruption. No aggressive osseous lesion. No spondylolisthesis. Mild degenerative changes along C1-C2 junction. DISK SPACES AND SOFT TISSUES: The prevertebral soft tissues are normal. C2-C3 to C7-T1 disc space levels show no definite disc protrusions on CT. There is no high-grade central or foraminal stenosis. MRI is the gold standard to assess for disk disease. VISUALIZED LUNG APICES: Unremarkable. CT myelogram or MRI of the cervical spine may be performed, if there is further concern. ---- IMPRESSION: CT brain: 1. No CT demonstrable acute intracranial abnormality. 2. Mild chronic microvascular ischemic changes. Stable findings since the prior CT dated 06/11/2018. CT cervical spine: 1. No acute cervical fracture or malalignment. 2. Mild degenerative changes in the cervical spine. No high-grade spinal canal or foraminal stenosis. ----- KELSEY: EVAN 02/02/2019 - - Read by: Alanis Crawford MD Dictated Date/time: 02/02/19 17:09 Electronically Signed by: Alanis Crawford MD 02/02/19 17:28 FINAL REPORT [facility] Chest 1view DX Chest 1view DX Clinical Indication: - fall ams; Comparison: 08/29/2018 FINDINGS: AP chest radiographs shows normal lung volumes without interstitial or airspace opacities, pleural effusions or pneumothorax. The heart size and pulmonary vasculature are normal. The trachea is midline. There are no clinically significant osseous abnormalities noted. IMPRESSION: No chest radiographic evidence of acute cardiopulmonary disease. SL: OSWALDO 02/02/2019 - - Read by: Taj Fontana MD Dictated Date/time: 02/02/19 17:48 Electronically Signed by: Taj Fontana MD 02/02/19 17:48 FINAL REPORT [facility] Brain wo contrast CT Brain wo contrast CT Clinical Indication: - fall ams. Comparison: Radiograph of the cervical spine dated 04/29/[address] brain study dated 06/11/2018 and 11/16/2017. TECHNIQUE: CT images were obtained from the foramen magnum to the vertex and cervical spine without the use of intravenous contrast on a multidetector CT. Coronal and sagittal reconstructions were obtained. CT imaging performed at this location utilizes radiation dose optimization techniques which include one or more of the following: -Automated exposure control -Adjustment of the mA and/or kV according to patient size -Use of iterative reconstruction technique CT Radiation Dose DLP 992.08 mGy-cm CT Radiation Dose DLP 902.20 mGy-cm FINDINGS: CT brain: BRAIN PARENCHYMA AND VENTRICLES: There is no acute intracranial hemorrhage, extra-axial collection, hydrocephalus, mass effect or midline shift. There are subtle nonspecific hypodensities in the subcortical white matter. The ventricles and the cortical sulci are appropriate for age. Intracranial vascular atherosclerotic calcifications noted. SKULL: There are no osseous abnormalities. 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 ORBITS, MASTOIDS AND PARANASAL SINUSES: Right pseudophakia. Persistent curvilinear hyperdensity along the posterior aspect of the left globe. The limited visualized paranasal sinuses are unremarkable. Mild patchy lateral mastoid tip effusion, right more than the left. If there is further concern for intracranial pathology or acute stroke, MRI of the brain may be performed for complete assessment. CT cervical spine: ALIGNMENT AND GENERAL ASSESSMENT: There is normal alignment of the cervical spine. The cervical vertebrae demonstrate normal height. There are multilevel marginal endplate osteophytosis. Mild reduction in intervertebral disc height at C6-C7. Rest of the intervertebral disc heights are maintained. No acute fracture, facetal dislocation or disc disruption. No aggressive osseous lesion. No spondylolisthesis. Mild degenerative changes along C1-C2 junction. DISK SPACES AND SOFT TISSUES: The prevertebral soft tissues are normal. C2-C3 to C7-T1 disc space levels show no definite disc protrusions on CT. There is no high-grade central or foraminal stenosis. MRI is the gold standard to assess for disk disease. VISUALIZED LUNG APICES: Unremarkable. CT myelogram or MRI of the cervical spine may be performed, if there is further concern. ---- IMPRESSION: CT brain: 1. No CT demonstrable acute intracranial abnormality. 2. Mild chronic microvascular ischemic changes. Stable findings since the prior CT dated 06/11/2018. CT cervical spine: 1. No acute cervical fracture or malalignment. 2. Mild degenerative changes in the cervical spine. No high-grade spinal canal or foraminal stenosis. ----- DEAN GORDON 02/02/2019 - - Read by: Alanis Crawford MD Dictated Date/time: 02/02/19 17:09 Electronically Signed by: Alanis Crawford MD 02/02/19 17:28 FINAL REPORT [facility] Abdomen/Pelvis wo IV contrast CT Abdomen/Pelvis wo [...] Murphy Conti DO 08/29/18 18:01 FINAL REPORT [facility] Chest 2 views DX Chest 2 views DX Study: Chest 2 views DX 08/29/2018 1:23 PM CDT Patient Name: STEPHANIE CAMERON MR: [id number] : 1960; Age: 58 years y/o Female [...] Jacob Urrutia MD 08/29/18 14:27 FINAL REPORT [facility] DRUG SCREEN U Cocaine Scr Negative *NA* (06/12/18 1:54 PM) Negative 06/12/2018 [facility] DRUG SCREEN U Amph Scr Negative *NA* (06/12/18 1:54 PM) Negative 06/12/2018 [facility] DRUG SCREEN U Ciara Scr Negative *NA* (06/12/18 1:54 PM) Negative 06/12/2018 [facility] DRUG SCREEN U Benzodiaz Scr Negative *NA* (06/12/18 1:54 PM) Negative 06/12/2018 [facility] DRUG SCREEN U Phencyclidine Scr Negative *NA* (06/12/18 1:54 PM) Negative 06/12/2018 [facility] DRUG SCREEN U Cannab Scr Negative *NA* (06/12/18 1:54 PM) Negative 06/12/2018 [facility] DRUG SCREEN UDS Note See Note (06/12/18 1:54 PM) 06/12/2018 [facility] DRUG SCREEN U Opiate Scr Positive *ABN* (06/12/18 1:54 PM) Negative 06/12/2018 [facility] URINE AND STOOL UA Color Ltyellow 06/12/2018 [facility] URINE AND STOOL UA Urobilinogen <=1.0 mg/dL 0.1 - 1.0 06/12/2018 [facility] URINE AND STOOL UA Sq Epi Occasional /LPF Few /LPF 06/12/2018 [facility] URINE AND STOOL UA RBC 1 /HPF 0 - 2 06/12/2018 [facility] URINE AND STOOL UA Leuk Est Negative (06/12/18 1:54 PM) Negative 06/12/2018 [facility] URINE AND STOOL UA WBC 1 /HPF 0 - 5 06/12/2018 [facility] URINE AND STOOL UA Nitrite Negative (06/12/18 1:54 PM) Negative 06/12/2018 [facility] URINE AND STOOL UA Glucose Negative mg/dL Negative mg/dL 06/12/2018 [facility] URINE AND STOOL UA Ketones Negative mg/dL Negative mg/dL 06/12/2018 [facility] URINE AND STOOL UA Spec Grav 1.008 <=1.030 06/12/2018 [facility] URINE AND STOOL UA pH 6.0 5.0 - 8.0 06/12/2018 [facility] URINE AND STOOL UA Protein Negative mg/dL Negative mg/dL 06/12/2018 [facility] URINE AND STOOL UA Turbidity Clear (06/12/18 1:54 PM) Clear 06/12/2018 [facility] URINE AND STOOL UA Blood Negative (06/12/18 1:54 PM) Negative 06/12/2018 [facility] URINE AND STOOL UA Bili Negative *NA* (06/12/18 1:54 PM) Negative 06/12/2018 [facility] CARDIAC ENZYMES Troponin-I null 0.00 - 0.40 06/12/2018 [facility] CARDIAC ENZYMES Total CK 38 unit/L - 06/12/2018 [facility] CARDIAC ENZYMES Troponin-I null 0.00 - 0.40 06/12/2018 [facility] CARDIAC ENZYMES Total CK 50 unit/L 12 - 06/12/2018 [facility] CARDIAC ENZYMES BNP 55 pg/mL <=100 pg/mL 06/11/2018 [facility] CARDIAC ENZYMES Troponin-I null 0.00 - 0.40 06/11/2018 [facility] ELECTROLYTES AGAP 12.7 meq/L 10.0 - 20.0 06/11/2018 [facility] ELECTROLYTES eGFR 61 mL/min/1.73m2 06/11/2018 Result Comment: The eGFR is calculated using [...] should be multiplied by the estimated BMI. [facility] ELECTROLYTES Calcium Lvl 8.9 mg/dL 8.5 - 10.5 06/11/2018 [facility] ELECTROLYTES Sodium Lvl 139 meq/L 135 - 145 06/11/2018 [facility] ELECTROLYTES Creatinine Lvl 1.03 mg/dL 0.50 - 1.40 06/11/2018 [facility] ELECTROLYTES Chloride Lvl 103 meq/L 95 - 109 06/11/2018 [facility] ELECTROLYTES Potassium Lvl 4.7 meq/L 3.5 - 5.1 06/11/2018 [facility] ELECTROLYTES CO2 28 meq/L 24 - 32 06/11/2018 [facility] ELECTROLYTES BUN 20 mg/dL 7 - 22 06/11/2018 [facility] ELECTROLYTES Glucose Lvl 189 mg/dL 70 - 99 06/11/2018 [facility] HEMATOLOGY Segs 68.0 % 45.0 - 75.0 06/11/2018 [facility] HEMATOLOGY Monocytes # 0.5 K/CMM 0.0 - 0.8 06/11/2018 [facility] HEMATOLOGY Eosinophils # 0.1 K/CMM 0.0 - 0.5 06/11/2018 [facility] HEMATOLOGY Lymphocytes # 2.8 K/CMM 1.0 - 5.5 06/11/2018 [facility] Monocytes 4.4 % 2.0 - 12.0 06/11/2018 [facility] HEMATOLOGY Basophils # 0.1 K/CMM 0.0 - 0.2 06/11/2018 [facility] HEMATOLOGY Neutrophils # 7.3 K/CMM 1.5 - 8.1 06/11/2018 [facility] HEMATOLOGY Eosinophils 1.1 % 0.0 - 4.0 06/11/2018 [facility] HEMATOLOGY Basophils 0.5 % 0.0 - 1.0 06/11/2018 [facility] Lymphocytes 26.0 % 20.0 - 40.0 06/11/2018 [facility] HEMATOLOGY Hct 32.6 % 36.0 - 48.0 06/11/2018 [facility] HEMATOLOGY MCV 79.1 fL 80.0 - 98.0 06/11/2018 [facility] MCH 25.7 pg 27.0 - 31.0 06/11/2018 [facility] MCHC 32.6 g/dL 32.0 - 36.0 06/11/2018 [facility] HEMATOLOGY RDW 19.4 % 11.5 - 14.5 06/11/2018 [facility] HEMATOLOGY Platelet 408 K/CMM 133 - 450 06/11/2018 [facility] MPV 7.4 fL 7.4 - 10.4 06/11/2018 [facility] Hgb 10.6 g/dL 12.0 - 16.0 06/11/2018 [facility] HEMATOLOGY WBC 10.8 K/CMM 3.7 - 10.4 06/11/2018 [facility] HEMATOLOGY RBC 4.13 M/CMM 4.20 - 5.40 06/11/2018 [facility] Carotid artery Doppler bilat US Carotid artery Doppler bilat US Patient Name: STEPHANIE CAMERON : 1960; Age: 58 years y/o Female MR: [id number] 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 SL: RHIANNA 06/11/2018 - - Read by: Murphy Conti DO Dictated Date/time: 06/11/18 20:25 Electronically Signed by: Murphy Conti DO 06/11/18 20:42 FINAL REPORT [facility] Chest 1view DX Chest 1view DX Patient Name: STEPHANIE CAMERON : 1960; Age: 58 years y/o Female MR: [id number] Study: Chest 1view DX dated 06/11/2018. Clinical Indication: - sob; Comparison: 11/16/2017 There is a right posterior 4th rib fracture, anterior right 3rd rib fracture and anterior right 5th rib fracture age uncertain. Cardiac and mediastinal structures are stable. No focal infiltrates within the lungs, no edema and no pneumothorax. SL: [id number] 06/11/2018 - - Read by: Magno Zhu MD Dictated Date/time: 06/11/18 15:06 Electronically Signed by: Magno Zhu MD 06/11/18 15:08 FINAL REPORT [facility] CHEM PANEL Magnesium Lvl 1.6 mg/dL 1.8 - 2.4 11/17/2017 [facility] CHEM PANEL eGFR 95 mL/min/1.73m2 11/17/2017 [...] A/G Ratio 0.8 0.7 - 1.6 11/17/2017 [facility] CHEM PANEL ALT 8 unit/L 0 - 65 11/17/2017 [facility] CHEM PANEL Albumin Lvl 2.5 g/dL 3.5 - 5.0 11/17/2017 [facility] CHEM PANEL Globulin 3.0 g/dL 2.7 - 4.2 11/17/2017 [facility] CHEM PANEL Alk Phos 122 unit/L 39 - 136 11/17/2017 [facility] CHEM PANEL Bili Total 0.3 mg/dL 0.2 - 1.3 11/17/2017 [facility] CHEM PANEL AST 7 unit/L 0 - 37 11/17/2017 [facility] CHEM PANEL Potassium Lvl 4.4 meq/L 3.5 - 5.1 11/17/2017 [facility] CHEM PANEL Sodium Lvl 137 meq/L 135 - 145 11/17/2017 [facility] CHEM PANEL Creatinine Lvl 0.72 mg/dL 0.50 - 1.40 11/17/2017 [facility] CHEM PANEL Glucose Lvl 243 mg/dL 70 - 99 11/17/2017 [facility] CHEM PANEL BUN 14 mg/dL 7 - 22 11/17/2017 [facility] CHEM PANEL Calcium Lvl 8.3 mg/dL 8.5 - 10.5 11/17/2017 [facility] CHEM PANEL Chloride Lvl 105 meq/L 95 - 109 11/17/2017 [facility] CHEM PANEL CO2 26 meq/L 24 - 32 11/17/2017 [facility] CHEM PANEL B/C Ratio 19 6 - 25 11/17/2017 [facility] CHEM PANEL AGAP 10.4 meq/L 10.0 - 20.0 11/17/2017 [facility] CHEM PANEL Lactic Acid Lvl 1.4 mMol/L 0.5 - 2.2 11/17/2017 [facility] HEMATOLOGY Basophils # 0.1 K/CMM 0.0 - 0.2 11/17/2017 [facility] HEMATOLOGY Eosinophils # 0.1 K/CMM 0.0 - 0.5 11/17/2017 [facility] HEMATOLOGY Monocytes # 0.6 K/CMM 0.0 - 0.8 11/17/2017 [facility] HEMATOLOGY Segs-Bands # 6.4 K/CMM 1.5 - 8.1 11/17/2017 [facility] HEMATOLOGY Basophils 0.8 % 0.0 - 1.0 11/17/2017 [facility] HEMATOLOGY Eosinophils 1.0 % 0.0 - 4.0 11/17/2017 [facility] HEMATOLOGY Monocytes 5.3 % 2.0 - 12.0 11/17/2017 [facility] HEMATOLOGY Lymphocytes 32.3 % 20.0 - 40.0 11/17/2017 [facility] HEMATOLOGY Segs 60.6 % 45.0 - 75.0 11/17/2017 [facility] HEMATOLOGY Lymphocytes # 3.4 K/CMM 1.0 - 5.5 11/17/2017 [facility] HEMATOLOGY Platelet 352 K/CMM 133 - 450 11/17/2017 [facility] HEMATOLOGY RDW 16.0 % 11.5 - 14.5 11/17/2017 [facility] HEMATOLOGY MPV 7.3 fL 7.4 - 10.4 11/17/2017 [facility] HEMATOLOGY MCHC 32.3 g/dL 32.0 - 36.0 11/17/2017 [facility] HEMATOLOGY MCH 28.1 pg 27.0 - 31.0 11/17/2017 [facility] HEMATOLOGY Hct 31.9 % 36.0 - 48.0 11/17/2017 [facility] HEMATOLOGY Hgb 10.3 g/dL 12.0 - 16.0 11/17/2017 [facility] HEMATOLOGY RBC 3.67 M/CMM 4.20 - 5.40 11/17/2017 [facility] HEMATOLOGY WBC 10.6 K/CMM 3.7 - 10.4 11/17/2017 [facility] HEMATOLOGY MCV 86.9 fL 80.0 - 98.0 11/17/2017 [facility] URINE AND STOOL UA Urobilinogen <=1.0 mg/dL 0.1 - 1.0 11/17/2017 [facility] URINE AND STOOL UA [place] Yeast Occasional /HPF None Seen /HPF 11/17/2017 [facility] URINE AND STOOL UA Bacteria Occasional /HPF None Seen /HPF 11/17/2017 [facility] URINE AND STOOL UA RBC 4 /HPF 0 - 2 11/17/2017 [facility] URINE AND STOOL UA WBC 16 /HPF 0 - 5 11/17/2017 [facility] URINE AND STOOL UA Sq Epi Occasional [...] STOOL UA Spec Grav 1.006 <=1.030 11/17/2017 [facility] URINE AND STOOL UA Turbidity Slight *ABN* (11/16/17 11:20 PM) Clear 11/17/2017 [facility] URINE AND STOOL UA Color Yellow *NA* (11/16/17 11:20 PM) Yellow 11/17/2017 [facility] URINE AND STOOL UA Nitrite Negative (11/16/17 11:20 PM) Negative 11/17/2017 [facility] URINE AND STOOL UA Blood Negative (11/16/17 11:20 PM) Negative 11/17/2017 [facility] URINE AND STOOL UA Bili Negative *NA* (11/16/17 11:20 PM) Negative 11/17/2017 [facility] CHEM PANEL Lactic Acid Lvl 2.7 mMol/L 0.5 - 2.2 11/17/2017 [facility] CARDIAC ENZYMES Total CK 83 unit/L 12 - 191 11/17/2017 [facility] CARDIAC ENZYMES CK MB 1.1 ng/mL 0.5 - 3.6 11/17/2017 [facility] CARDIAC ENZYMES Troponin-I null 0.00 - 0.40 11/17/2017 [facility] CARDIAC ENZYMES CK MB Index 1.3 0.0 - 2.5 11/17/2017 [facility] CHEM PANEL eGFR 60 mL/min/1.73m2 11/17/2017 [...] should be multiplied by the estimated BMI. [facility] CHEM PANEL A/G Ratio 0.8 0.7 - 1.6 11/17/2017 [facility] CHEM PANEL Sodium Lvl 140 meq/L 135 - 145 11/17/2017 [facility] CHEM PANEL Potassium Lvl 3.8 meq/L 3.5 - 5.1 11/17/2017 [facility] CHEM PANEL Chloride Lvl 103 meq/L 95 - 109 11/17/2017 [facility] CHEM PANEL CO2 28 meq/L 24 - 32 11/17/2017 [facility] CHEM PANEL Calcium Lvl 8.0 mg/dL 8.5 - 10.5 11/17/2017 [facility] CHEM PANEL Total Protein 6.2 g/dL 6.4 - 8.4 11/17/2017 [facility] CHEM PANEL ALT 9 unit/L 0 - 65 11/17/2017 [facility] CHEM PANEL Albumin Lvl 2.7 g/dL 3.5 - 5.0 11/17/2017 [facility] CHEM PANEL AST 9 unit/L 0 - 37 11/17/2017 [facility] CHEM PANEL B/C Ratio 13 6 - 25 11/17/2017 [facility] CHEM PANEL Globulin 3.5 g/dL 2.7 - 4.2 11/17/2017 [facility] CHEM PANEL Bili Total 0.2 mg/dL 0.2 - 1.3 11/17/2017 [facility] CHEM PANEL AGAP 12.8 meq/L 10.0 - 20.0 11/17/2017 [facility] CHEM PANEL Alk Phos 124 unit/L 39 - 136 11/17/2017 [facility] CHEM PANEL BUN 14 mg/dL 7 - 22 11/17/2017 [facility] CHEM PANEL Creatinine Lvl 1.05 mg/dL 0.50 - 1.40 11/17/2017 [facility] CHEM PANEL Glucose Lvl 107 mg/dL 70 - 99 11/17/2017 [facility] HEMATOLOGY PT 12.9 s 12.0 - 14.7 11/17/2017 [facility] HEMATOLOGY INR 0.97 0.85 - 1.17 11/17/2017 [facility] HEMATOLOGY PTT 32.6 s 22.9 - 35.8 11/17/2017 [facility] MCH 28.7 pg 27.0 - 31.0 11/17/2017 [facility] MCV 87.8 fL 80.0 - 98.0 11/17/2017 [facility] HEMATOLOGY Hct 34.6 % 36.0 - 48.0 11/17/2017 [facility] HEMATOLOGY RBC 3.94 M/CMM 4.20 - 5.40 11/17/2017 [facility] HEMATOLOGY WBC 10.3 K/CMM 3.7 - 10.4 11/17/2017 [facility] HEMATOLOGY Hgb 11.3 g/dL 12.0 - 16.0 11/17/2017 [facility] HEMATOLOGY MPV 7.3 fL 7.4 - 10.4 11/17/2017 [facility] HEMATOLOGY MCHC 32.7 g/dL 32.0 - 36.0 11/17/2017 [facility] HEMATOLOGY Platelet 369 K/CMM 133 - 450 11/17/2017 [facility] HEMATOLOGY RDW 15.9 % 11.5 - 14.5 11/17/2017 [facility] HEMATOLOGY Segs-Bands # 6.8 K/CMM 1.5 - 8.1 11/17/2017 [facility] HEMATOLOGY Lymphocytes # 2.7 K/CMM 1.0 - 5.5 11/17/2017 [facility] Eosinophils 0.9 % 0.0 - 4.0 11/17/2017 [facility] Basophils 0.7 % 0.0 - 1.0 11/17/2017 [facility] Monocytes 6.6 % 2.0 - 12.0 11/17/2017 [facility] Lymphocytes 25.7 % 20.0 - 40.0 11/17/2017 [facility] Segs 66.1 % 45.0 - 75.0 11/17/2017 [facility] Basophils # 0.1 K/CMM 0.0 - 0.2 11/17/2017 [facility] Eosinophils # 0.1 K/CMM 0.0 - 0.5 11/17/2017 [facility] Monocytes # 0.7 K/CMM 0.0 - 0.8 11/17/2017 [facility] Brain wo contrast CT Brain wo contrast CT Addendum: I have reviewed the case and agree with the findings. SL: GRACIELA Clinical Indication: Weakness, found unresponsive Comparison: None [...] consultation is suggested to better assess. SL: [id number] 11/16/2017 - - Read by: Carlin Trent MD Dictated Date/time: 11/17/17 00:19 Electronically Signed by: Carlin Trent MD 11/17/17 00:20 FINAL REPORT - - Read by: Leroy Chavez MD Dictated Date/time: 11/17/17 00:06 Electronically Signed by: Leroy Chavez MD 11/17/17 00:10 FINAL REPORT [facility] 1view DX Chest 1view DX EXAM: XR CHEST 1 VIEW DATE: 11/16/2017 6:52 PM [facility] INDICATION: Weakness. COMPARISON: CT chest dated 12/09/2017 [...] lung volumes without acute cardiopulmonary abnormality. SL: [id number] 11/16/2017 - - Read by: Magno Scruggs MD Dictated Date/time: 11/16/17 19:45 Electronically Signed by: Magno Scruggs MD 11/16/17 19:46 FINAL REPORT [facility] wo contrast CT Chest wo contrast CT [...] Wade MD 12/09/16 13:09 FINAL REPORT [facility] Spine lumbar series DX Spine lumbar series [...] Bragg MD 12/22/15 12:58 FINAL REPORT [facility] Spine lumbar wo contrast MRI Spine lumbar [...] Vu MD 06/24/15 16:16 FINAL REPORT [facility] Vital Signs Vital Sign Value Date Comments Source Heart Rate 70 02/28/2019 [facility] Systolic (mm Hg) 131 02/28/2019 [facility] Diastolic (mm Hg) 67 02/28/2019 [facility] Temperature Oral (F) 98.6 F 02/28/2019 [facility] Heart Rate 70 02/28/2019 [facility] Respitory Rate 17 02/28/2019 [facility] Systolic (mm Hg) 107 02/28/2019 [facility] Diastolic (mm Hg) 67 02/28/2019 [facility] Respitory Rate 19 02/28/2019 [facility] Systolic (mm Hg) 115 02/28/2019 [facility] Diastolic (mm Hg) 60 02/28/2019 [facility] Heart Rate 71 02/28/2019 [facility] Temperature Oral (F) 98.2 F 02/28/2019 [facility] Temperature Oral (F) 98.4 F 02/28/2019 [facility] Respitory Rate 16 02/28/2019 [facility] Weight 104.545 02/28/2019 [facility] BMI Calculated 39.56 02/28/2019 [facility] Height 162.56 cm 02/28/2019 [facility] Height 162.56 cm 02/27/2019 [facility] BMI Calculated 39.36 02/27/2019 [facility] Weight 104 02/27/2019 [facility] Systolic (mm Hg) 98 02/06/2019 [facility] Diastolic (mm Hg) 84 02/06/2019 [facility] Respitory Rate 13 02/06/2019 [facility] Temperature Oral (F) 98.4 F 02/06/2019 [facility] Systolic (mm Hg) 140 02/06/2019 [facility] Diastolic (mm Hg) 78 02/06/2019 [facility] Respitory Rate 11 02/06/2019 [facility] Systolic (mm Hg) 149 02/06/2019 [facility] Diastolic (mm Hg) 80 02/06/2019 [facility] Respitory Rate 11 02/06/2019 [facility] Temperature Oral (F) 98.2 F 02/06/2019 [facility] Temperature Oral (F) 98.2 F 02/06/2019 [facility] Height 162.56 cm 02/03/2019 [facility] Weight 99.091 02/03/2019 [facility] BMI Calculated 37.5 02/03/2019 [facility] Height 157.48 cm 02/02/2019 [facility] BMI Calculated 37.02 02/02/2019 [facility] Weight 91.818 02/02/2019 [facility] Heart Rate 99 02/02/2019 [facility] Systolic (mm Hg) 140 07/17/2018 [facility] Diastolic (mm Hg) 62 07/17/2018 [facility] Respitory Rate 16 07/17/2018 [facility] Heart Rate 87 07/17/2018 [facility] Heart Rate 96 07/17/2018 [facility] Systolic (mm Hg) 148 07/17/2018 [facility] Diastolic (mm Hg) 78 07/17/2018 [facility] Respitory Rate 16 07/17/2018 [facility] BMI Calculated 36.98 07/14/2018 [facility] Weight 97.727 07/14/2018 [facility] Height 162.56 cm 07/14/2018 [facility] Respitory Rate 19 06/12/2018 [facility] Systolic (mm Hg) 109 06/12/2018 [facility] Diastolic (mm Hg) 71 06/12/2018 [facility] Heart Rate 81 06/12/2018 [facility] Temperature Oral (F) 98.3 F 06/12/2018 [facility] Temperature Oral (F) 98.8 F 06/12/2018 [facility] Heart Rate 90 06/12/2018 [facility] Respitory Rate 17 06/12/2018 [facility] Systolic (mm Hg) 143 06/12/2018 [facility] Diastolic (mm Hg) 62 06/12/2018 [facility] Heart Rate 78 06/12/2018 [facility] Respitory Rate 18 06/12/2018 [facility] Systolic (mm Hg) 114 06/12/2018 [facility] Diastolic (mm Hg) 54 06/12/2018 [facility] Temperature Oral (F) 98.4 F 06/12/2018 [facility] BMI Calculated 38.7 06/12/2018 [facility] Height 162.56 cm 06/12/2018 [facility] Weight 102.273 06/12/2018 [facility] Weight 102.273 06/11/2018 [facility] Height 162.56 cm 06/11/2018 [facility] BMI Calculated 38.7 06/11/2018 [facility] Systolic (mm Hg) 130 11/17/2017 [facility] Diastolic (mm Hg) 60 11/17/2017 [facility] Respitory Rate 14 11/17/2017 [facility] Systolic (mm Hg) 143 11/17/2017 [facility] Diastolic (mm Hg) 82 11/17/2017 [facility] Respitory Rate 27 11/17/2017 [facility] Respitory Rate 20 11/17/2017 [facility] Systolic (mm Hg) 125 11/17/2017 [facility] Diastolic (mm Hg) 58 11/17/2017 [facility] Temperature Oral (F) 98.4 F 11/17/2017 [facility] Temperature Oral (F) 98.6 F 11/17/2017 [facility] Temperature Oral (F) 98.1 F 11/17/2017 [facility] Height 162.56 cm 11/17/2017 [facility] Weight 99.5 11/17/2017 [facility] BMI Calculated 37.65 11/17/2017 [facility] Height 162.56 cm 11/17/2017 [facility] Heart Rate 84 11/17/2017 [facility] BMI Calculated 34.4 11/17/2017 [facility] Weight 90.909 11/17/2017 [facility] Encounters Location Location Details Encounter Type Encounter Number Reason For Visit Attending Provider ADM Date DC Date Status Source [facility] [id number] Juan Rocha SISI 06/24/2015 06/25/2015 [facility] [id number] Basem Hamid 12/22/2015 12/23/2015 [facility] [id number] Carrington Brent 12/09/2016 12/10/2016 [facility] Observation [id number] Akash Garcia 11/17/2017 11/17/2017 [facility] Observation [id number] Jered Sepulveda 06/11/2018 06/12/2018 [facility] [id number] Andrea Samuel 07/17/2018 07/18/2018 [facility] Inpatient [id number] Jermaine Wayne Jr 02/02/2019 02/06/2019 [facility] Observation [id number] Tin Ruiz 02/27/2019 02/28/2019 [facility] Procedures Procedure Code Date Perfomer Comments Source Abdominal hysterectomy [id number] [facility] Foot joint operations [id number] [facility] Abdominal hysterectomy [id number] [facility] Eye incision [id number] [facility] Foot joint operations [id number] [facility] Procedure [id number] [facility] Eye incision [id number] [facility] Placement of stent [id number] [facility] Procedure [id number] [facility]
--- OUTSIDE RECORDS SUMMARY | 2019-03-07 13:25 | XMS REPORT | Summary of Care ---
Author Author [facility] Organization [facility] Address Unknown Phone Unavailable Encounter MARIAH Hall(JOSE) [id number] Date(s): 02/02/19 - 02/06/19 [facility] [address] [place] [address] [phone] Discharge Disposition: Home or Self Care Attending Physician: Jermaine Thorpe MD Admitting Physician: Jermaine Thorpe MD Vital Signs 1 2 3 Most recent to oldest [Reference Range]: 162.56 cm (02/02/19 11:43 PM) 157.48 cm (02/02/19 4:15 PM) Height 98.4 DegF (02/06/19 3:38 PM) 98.2 DegF (02/06/19 11:46 AM) 98.2 DegF (02/06/19 7:44 AM) Temperature Oral [96.4-99.1 DegF] 98/84 mmHg (02/06/19 4:00 PM) 140/78 mmHg (02/06/19 2:00 PM) 149/80 mmHg *HI* (02/06/19 12:04 PM) Blood Pressure [90-140/60-90 mmHg] 13 BRMIN *LOW* (02/06/19 4:00 PM) 11 BRMIN *LOW* (02/06/19 2:00 PM) 11 BRMIN *LOW* (02/06/19 12:04 PM) Respiratory Rate [14-20 BRMIN] 99 bpm (02/02/19 4:15 PM) Peripheral Pulse Rate [60-100 bpm] 99.091 kg (02/02/19 11:43 PM) 91.818 kg (02/02/19 4:15 PM) Weight 37.5 m2 (02/02/19 11:43 PM) 37.02 m2 (02/02/19 4:15 PM) Body Mass Index Problem List Condition Effective Dates Status Health Status Informant Type II diabetes Active mellitus poorly controlled(Confirmed ) Allergies, Adverse Reactions, Alerts Substance Reaction Severity Status sulfa drugs Active predniSONE Active aspirin Active iodine Active NSAIDs Active Medications Advair Diskus 100 mcg-50 mcg inhalation powder 1 puff, INHALATION, BID, 0 Refill(s) Start Date: 02/03/19 Status: Ordered Advair Diskus 100 mcg-50 mcg inhalation powder 1 puff, Route: INHALATION, Drug Form: PWDR, Dosing Weight 99.091, kg, BID, Start date: 02/03/19 9:00:00 CDT, Duration: 30 day, Stop date: 03/04/19 17:00:00 CDT Start Date: 02/03/19 Stop Date: 02/03/19 Status: Deleted albuterol-ipratropium 2.5-0.5 mg inhalation solution 3 mL, Route: INHALATION, Drug Form: SOLN, Dosing Weight 99.091, kg, RQ6H, PRN Wh eezing, Start date: 02/03/19 8:11:00 CDT, Duration: 30 day, Stop date: 03/05/19 8:10:00 CDT Notes: (Same as: Duoneb) Start Date: 02/03/19 Stop Date: 02/06/19 Status: Discontinued ammonium lactate topical TOP, BID, 0 Refill(s) Start Date: 02/03/19 Stop Date: 02/06/19 Status: Deleted ammonium lactate topical TOP, BID, 0 Refill(s) Start Date: 02/03/19 Stop Date: 02/06/19 Status: Deleted aspirin 81 mg tablet, enteric coated 81 mg, 1 tab, Route: PO, Drug form: ECTAB, Daily, Dosing Weight 99.091, kg, Star t date: 02/06/19 9:00:00 CDT, Duration: 30 day, Stop date: 03/07/19 9:00:00 CDT Notes: Do not crush or chew.(Same As: Ecotrin) Start Date: 02/06/19 Stop Date: 02/06/19 Status: Discontinued aspirin 81 mg tablet, enteric coated 81 mg=1 tab, PO, Daily, 0 Refill(s) Start Date: 02/06/19 Status: Ordered Atarax 25 mg oral tab 25 mg=1 tab, PO, QID, 0 Refill(s) Start Date: 02/03/19 Status: Ordered atorvastatin 80 mg, 2 tab, Route: PO, Drug form: TAB, Bedtime, Dosing Weight 99.091, kg, Star t date: 02/03/19 21:00:00 CDT, Duration: 30 day, Stop date: 03/04/19 21:00:00 CD T Notes: (Same as: Lipitor) Start Date: 02/03/19 Stop Date: 02/06/19 Status: Discontinued atorvastatin 80 mg, Route: PO, Drug form: TAB, Bedtime, Dosing Weight 99.091, kg, Start date: 02/05/19 21:00:00 CDT, Duration: 30 day, Stop date: 03/06/19 21:00:00 CDT Start Date: 02/05/19 Stop Date: 02/05/19 Status: Deleted atorvastatin 40 mg oral tablet 40 mg=1 tab, PO, Bedtime, # 30 tab, 0 Refill(s), Pharmacy: [facility] Start Date: 02/06/19 Stop Date: 03/08/19 Status: Ordered busPIRone 7.5 mg, 1.5 tab, Route: PO, Drug form: TAB, BID, Dosing Weight 99.091, kg, Start date: 02/03/19 9:00:00 CDT, Duration: 30 day, Stop date: 03/04/19 17:00:00 CDT Notes: (Same As: BuSpar) Start Date: 02/03/19 Stop Date: 02/06/19 Status: Discontinued clonazePAM 0.5 mg, 1 tab, Route: PO, Drug form: TAB, TID, Dosing Weight 91.818, kg, PRN Anx iety, Start date: 02/02/19 23:12:00 CDT, Duration: 30 day, Stop date: 03/04/19 2 3:11:00 CDT Notes: (Same As: KlonoPIN) Start Date: 02/02/19 Stop Date: 02/03/19 Status: Discontinued clonazePAM 0.5 mg, 1 tab, Route: PO, Drug form: TAB, BID, Dosing Weight 99.091, kg, PRN Anx iety, Start date: 02/03/19 21:21:00 CDT, Duration: 30 day, Stop date: 03/05/19 2 1:20:00 CDT Notes: (Same As: KlonoPIN) Start Date: 02/03/19 Stop Date: 02/06/19 Status: Discontinued clonazePAM 1 mg, PO, TID, 0 Refill(s) Start Date: 02/03/19 Stop Date: 02/03/19 Status: Deleted clonazePAM 0.5 mg, 1 tab, Route: PO, Drug form: TAB, BID, Dosing Weight 99.091, kg, PRN Anx iety, Start date: 02/03/19 9:00:00 CDT, Duration: 30 day, Stop date: 03/05/19 8: 59:00 CDT Notes: (Same As: KlonoPIN) Start Date: 02/03/19 Stop Date: 02/03/19 Status: Discontinued clonazePAM 0.5 mg oral tablet 0.5 mg=1 tab, PO, BID, PRN anxiety, # 60 tab, 0 Refill(s) Start Date: 02/03/19 Status: Ordered Dextrose 50% Syringe 12.5 gm, 25 mL, Route: IVP, Drug Form: INJ, Dosing Weight 99.091, kg, PRN, PRN B lood Glucose Results, Start date: 02/04/19 17:14:00 CDT, Duration: 30 day, Stop date: 03/06/19 17:13:00 CDT Start Date: 02/04/19 Stop Date: 02/06/19 Status: Discontinued Dextrose 50% Syringe 25 gm, 50 mL, Route: IVP, Drug Form: INJ, Dosing Weight 99.091, kg, PRN, PRN Blo od Glucose Results, Start date: 02/04/19 17:14:00 CDT, Duration: 30 day, Stop da te: 03/06/19 17:13:00 CDT Start Date: 02/04/19 Stop Date: 02/06/19 Status: Discontinued Dextrose 50% Syringe 25 gm, 50 mL, Route: IVP, Drug Form: INJ, Dosing Weight 99.091, kg, PRN, PRN Blo od Glucose Results, Start date: 02/03/19 8:23:00 CDT, Duration: 30 day, Stop carol e: 03/05/19 8:22:00 CDT Start Date: 02/03/19 Stop Date: 02/04/19 Status: Discontinued Dextrose 50% Syringe 12.5 gm, 25 mL, Route: IVP, Drug Form: INJ, Dosing Weight 99.091, kg, PRN, PRN B lood Glucose Results, Start date: 02/03/19 8:23:00 CDT, Duration: 30 day, Stop d ate: 03/05/19 8:22:00 CDT Start Date: 02/03/19 Stop Date: 02/04/19 Status: Discontinued Dextrose 50% Syringe 25 gm, 50 mL, Route: IVP, Drug Form: INJ, Dosing Weight 91.818, kg, PRN, PRN Blo od Glucose Results, Start date: 02/02/19 23:19:00 CDT, Duration: 30 day, Stop da te: 03/04/19 23:18:00 CDT Start Date: 02/02/19 Stop Date: 02/03/19 Status: Discontinued Dextrose 50% Syringe 12.5 gm, 25 mL, Route: IVP, Drug Form: INJ, Dosing Weight 91.818, kg, PRN, PRN B lood Glucose Results, Start date: 02/02/19 23:19:00 CDT, Duration: 30 day, Stop date: 03/04/19 23:18:00 CDT Start Date: 02/02/19 Stop Date: 02/03/19 Status: Discontinued diphenhydrAMINE 50 mg, 1 mL, Route: IVP, Drug form: INJ, ONCE, Dosing Weight 99.091, kg, Start d ate: 02/05/19 12:32:00 CDT, Stop date: 02/05/19 12:32:00 CDT Notes: (Same as: Benadryl) Start Date: 02/05/19 Stop Date: 02/05/19 Status: Completed famotidine 20 mg, 2 mL, Route: IVP, Drug form: INJ, ONCE, Dosing Weight 99.091, kg, Start d ate: 02/05/19 12:32:00 CDT, Stop date: 02/05/19 12:32:00 CDT Notes: (Same as: Pepcid)Can be dilute in 5-10cc NS IVP: Slow IV push over at le ast 2 minutes. Start Date: 02/05/19 Stop Date: 02/05/19 Status: Completed Flexeril 5 mg, 0.5 tab, Route: PO, Drug form: TAB, TID, Dosing Weight 99.091, kg, PRN Spa sm, Start date: 02/05/19 9:52:00 CDT, Duration: 30 day, Stop date: 03/07/19 9:51 :00 CDT Notes: (Same As: Flexeril) Start Date: 02/05/19 Stop Date: 02/06/19 Status: Discontinued gabapentin 400 mg, 1 cap, Route: PO, Drug form: CAP, TID, Dosing Weight 99.091, kg, Start d ate: 02/03/19 9:00:00 CDT, Duration: 30 day, Stop date: 03/04/19 21:00:00 CDT Notes: (Same as: Neurontin) Start Date: 02/03/19 Stop Date: 02/06/19 Status: Discontinued glucagon 1 mg, Route: IM, Drug form: PDR/INJ, PRN, Dosing Weight 99.091, kg, PRN Blood Gl ucose Results, Start date: 02/04/19 17:14:00 CDT, Duration: 30 day, Stop date: 0 03/06/19 17:13:00 CDT Start Date: 02/04/19 Stop Date: 02/06/19 Status: Discontinued glucagon 1 mg, Route: IM, Drug form: PDR/INJ, PRN, Dosing Weight 99.091, kg, PRN Blood Gl ucose Results, Start date: 02/03/19 8:23:00 CDT, Duration: 30 day, Stop date: 8:22:00 CDT Start Date: 02/03/19 Stop Date: 02/04/19 Status: Discontinued glucagon 1 mg, Route: IM, Drug form: PDR/INJ, PRN, Dosing Weight 91.818, kg, PRN Blood Gl ucose Results, Start date: 02/02/19 23:19:00 CDT, Duration: 30 day, Stop date: 0 03/04/19 23:18:00 CDT Start Date: 02/02/19 Stop Date: 02/03/19 Status: Discontinued Heparin - one time bolus for ACS 4,000 unit, 4 mL, Route: IVP, Drug form: INJ, ONCE, Dosing Weight 91.818, kg, Pr iority: STAT, Start date: 02/02/19 18:43:00 CDT, Stop date: 02/02/19 18:43:00 CD T Start Date: 02/02/19 Stop Date: 02/02/19 Status: Completed Heparin 30 unit/kg Bolus (Heparin Dosing Weight) Route: IVP, PRN, 2,000 unit, 2 mL, Drug form: INJ, PRN, Heparin Protocol, Start date: 02/02/19 18:43:00 CDT Stop date: 03/04/19 18:42:00 CDT, 30 day Start Date: 02/02/19 Stop Date: 02/06/19 Status: Discontinued Heparin 60 unit/kg Bolus (Heparin Dosing Weight) Route: IVP, PRN, 4,000 unit, 4 mL, Drug form: INJ, PRN, Heparin Protocol, Start date: 02/02/19 18:43:00 CDT Stop date: 03/04/19 18:42:00 CDT, 30 day Start Date: 02/02/19 Stop Date: 02/06/19 Status: Discontinued heparin additive 25,000 unit [12 unit/kg/hr] + Premix Diluent Dextrose 5% 500 mL 500 mL, Rate: 16.03 ml/hr, Infuse over: 31.2 hr, Route: IV, Dosing Weight 66.8 k g, Total Volume: 500 mL, Start date: 02/02/19 18:43:00 CDT, Duration: 30 day, St op date: 03/04/19 18:42:00 CDT, 1.73, m2 Start Date: 02/02/19 Stop Date: 02/05/19 Status: Discontinued Humalog 15 unit, 0.15 mL, Route: SUB-Q, Drug form: SOLN, ONCE, Dosing Weight 99.091, kg, Start date: 02/03/19 21:20:00 CDT, Stop date: 02/03/19 21:20:00 CDT Notes: (Same as: Humalog ) Roll in palms of hands gently; Do not shake `vigorou sly. "Single Patient Use Only " WASTE: F/P - Black; E - [facility] [address] able for 28 days at room temperature.Expires in days from Da te Start Date: 02/03/19 Stop Date: 02/03/19 Status: Completed Humalog SUB-Q, 0 Refill(s) Start Date: 02/03/19 Stop Date: 02/06/19 Status: Deleted Humalog 15 unit, 0.15 mL, Route: SUB-Q, Drug form: SOLN, ONCE, Dosing Weight 99.091, kg, Priority: NOW, Start date: 02/04/19 17:10:00 CDT, Stop date: 02/04/19 17:10:00 CDT Notes: (Same as: Humalog ) Roll in palms of hands gently; Do not shake `vigorou sly. "Single Patient Use Only " WASTE: F/P - Black; E - [facility] [address] [address] able for 28 days at room temperature.Expires in days from Da te Start Date: 02/04/19 Stop Date: 02/04/19 Status: Completed hydrOXYzine 25 mg, 1 tab, Route: PO, Drug form: TAB, QID, Dosing Weight 99.091, kg, PRN Itch ing, Start date: 02/03/19 8:11:00 CDT, Duration: 30 day, Stop date: 03/05/19 8:1 0:00 CDT Notes: (Same as: Atarax) Avoid alcohol. Start Date: 02/03/19 Stop Date: 02/06/19 Status: Discontinued insulin detemir 32 unit, Route: SUB-Q, Drug form: SOLN, BID, Dosing Weight 99.091, kg, Start carol e: 02/03/19 9:00:00 CDT, Duration: 30 day, Stop date: 03/04/19 17:00:00 CDT Start Date: 02/03/19 Stop Date: 02/03/19 Status: Deleted insulin glargine 32 unit, 0.32 mL, Route: SUB-Q, Drug form: SOLN, BID, Start date: 02/03/19 9:00: 00 CDT, Duration: 30 day, Stop date: 03/04/19 21:00:00 CDT Notes: (Same as: Lantus)Do not hold insulin without contacting prescriberWASTE: F/P - Black; E - [facility] [employer] [facility] "single patient use only" Start Date: 02/03/19 Stop Date: 02/06/19 Status: Discontinued insulin lispro 10 unit, 0.1 mL, Route: SUB-Q, Drug form: SOLN, TID-Before Meals, Dosing Weight 99.091, kg, PRN Blood Glucose Results, Start date: 02/04/19 17:14:00 CDT, Durati on: 30 day, Stop date: 03/06/19 17:13:00 CDT Notes: (Same as: Humalog ) Roll in palms of hands gently; Do not shake `vigorou sly. "Single Patient Use Only " WASTE: F/P - Black; E - [facility] [address] [address] able for 28 days at room temperature.Expires in days from Da te Start Date: 02/04/19 Stop Date: 02/06/19 Status: Discontinued insulin lispro 2 unit, 0.02 mL, Route: SUB-Q, Drug form: SOLN, TID-Before Meals, Dosing Weight 99.091, kg, PRN Blood Glucose Results, Start date: 02/04/19 17:14:00 CDT, Durati on: 30 day, Stop date: 03/06/19 17:13:00 CDT Notes: (Same as: Humalog ) Roll in palms of hands gently; Do not shake `vigorou sly. "Single Patient Use Only " WASTE: F/P - Black; E - [facility] [address] able for 28 days at room temperature.Expires in days from Da te Start Date: 02/04/19 Stop Date: 02/06/19 Status: Discontinued insulin lispro 4 unit, 0.04 mL, Route: SUB-Q, Drug form: SOLN, TID-Before Meals, Dosing Weight 99.091, kg, PRN Blood Glucose Results, Start date: 02/04/19 17:14:00 CDT, Durati on: 30 day, Stop date: 03/06/19 17:13:00 CDT Notes: (Same as: Humalog ) Roll in palms of hands gently; Do not shake `vigorou sly. "Single Patient Use Only " WASTE: F/P - Black; E - [facility] [address] able for 28 days at room temperature.Expires in days from Da te Start Date: 02/04/19 Stop Date: 02/06/19 Status: Discontinued insulin lispro 6 unit, 0.06 mL, Route: SUB-Q, Drug form: SOLN, TID-Before Meals, Dosing Weight 99.091, kg, PRN Blood Glucose Results, Start date: 02/04/19 17:14:00 CDT, Durati on: 30 day, Stop date: 03/06/19 17:13:00 CDT Notes: (Same as: Humalog ) Roll in palms of hands gently; Do not shake `vigorou sly. "Single Patient Use Only " WASTE: F/P - Black; E - [facility] [address] able for 28 days at room temperature.Expires in days from Da te Start Date: 02/04/19 Stop Date: 02/06/19 Status: Discontinued insulin lispro 8 unit, 0.08 mL, Route: SUB-Q, Drug form: SOLN, TID-Before Meals, Dosing Weight 99.091, kg, PRN Blood Glucose Results, Start date: 02/04/19 17:14:00 CDT, Durati on: 30 day, Stop date: 03/06/19 17:13:00 CDT Notes: (Same as: Humalog ) Roll in palms of hands gently; Do not shake `vigorou sly. "Single Patient Use Only " WASTE: F/P - Black; E - [facility] [address] able for 28 days at room temperature.Expires in days from Da te Start Date: 02/04/19 Stop Date: 02/06/19 Status: Discontinued insulin lispro 10 unit, 0.1 mL, Route: SUB-Q, Drug form: SOLN, ONCE, Dosing Weight 99.091, kg, Priority: NOW, Start date: 02/03/19 13:04:00 CDT, Stop date: 02/03/19 13:04:00 C DT Notes: (Same as: Humalog ) Roll in palms of hands gently; Do not shake `vigorou sly. "Single Patient Use Only " WASTE: F/P - Black; E - [facility] [address] able for 28 days at room temperature.Expires in days from Da te Start Date: 02/03/19 Stop Date: 02/03/19 Status: Completed insulin lispro 1 unit, 0.01 mL, Route: SUB-Q, Drug form: SOLN, TID-Before Meals, Dosing Weight 99.091, kg, PRN Blood Glucose Results, Start date: 02/03/19 8:23:00 CDT, Duratio n: 30 day, Stop date: 03/05/19 8:22:00 CDT Notes: (Same as: Humalog ) Roll in palms of hands gently; Do not shake `vigorou sly. "Single Patient Use Only " WASTE: F/P - Black; E - [facility] [address] able for 28 days at room temperature.Expires in days from Da te Start Date: 02/03/19 Stop Date: 02/04/19 Status: Discontinued insulin lispro 5 unit, 0.05 mL, Route: SUB-Q, Drug form: SOLN, TID-Before Meals, Dosing Weight 99.091, kg, PRN Blood Glucose Results, Start date: 02/03/19 8:23:00 CDT, Duratio n: 30 day, Stop date: 03/05/19 8:22:00 CDT Notes: (Same as: Humalog ) Roll in palms of hands gently; Do not shake `vigorou sly. "Single Patient Use Only " WASTE: F/P - Black; E - [facility] [address] able for 28 days at room temperature.Expires in days from Da te Start Date: 02/03/19 Stop Date: 02/04/19 Status: Discontinued insulin lispro 2 unit, 0.02 mL, Route: SUB-Q, Drug form: SOLN, TID-Before Meals, Dosing Weight 99.091, kg, PRN Blood Glucose Results, Start date: 02/03/19 8:23:00 CDT, Duratio n: 30 day, Stop date: 03/05/19 8:22:00 CDT Notes: (Same as: Humalog ) Roll in palms of hands gently; Do not shake `vigorou sly. "Single Patient Use Only " WASTE: F/P - Black; E - [facility] [address] able for 28 days at room temperature.Expires in days from Da te Start Date: 02/03/19 Stop Date: 02/04/19 Status: Discontinued insulin lispro 4 unit, 0.04 mL, Route: SUB-Q, Drug form: SOLN, TID-Before Meals, Dosing Weight 99.091, kg, PRN Blood Glucose Results, Start date: 02/03/19 8:23:00 CDT, Duratio n: 30 day, Stop date: 03/05/19 8:22:00 CDT Notes: (Same as: Humalog ) Roll in palms of hands gently; Do not shake `vigorou sly. "Single Patient Use Only " WASTE: F/P - Black; E - [facility] [address] able for 28 days at room temperature.Expires in days from Da te Start Date: 02/03/19 Stop Date: 02/04/19 Status: Discontinued insulin lispro 3 unit, 0.03 mL, Route: SUB-Q, Drug form: SOLN, TID-Before Meals, Dosing Weight 99.091, kg, PRN Blood Glucose Results, Start date: 02/03/19 8:23:00 CDT, Duratio n: 30 day, Stop date: 03/05/19 8:22:00 CDT Notes: (Same as: Humalog ) Roll in palms of hands gently; Do not shake `vigorou sly. "Single Patient Use Only " WASTE: F/P - Black; E - [facility] [address] able for 28 days at room temperature.Expires in days from Da te Start Date: 02/03/19 Stop Date: 02/04/19 Status: Discontinued insulin lispro 1 unit, 0.01 mL, Route: SUB-Q, Drug form: SOLN, Bedtime, Dosing Weight 99.091, k g, PRN Blood Glucose Results, Start date: 02/05/19 22:27:00 CDT, Duration: 30 da y, Stop date: 03/07/19 22:26:00 CDT Notes: (Same as: Humalog ) Roll in palms of hands gently; Do not shake `vigorou sly. "Single Patient Use Only " WASTE: F/P - Black; E - [facility] [address] able for 28 days at room temperature.Expires in days from Da te Start Date: 02/05/19 Stop Date: 02/06/19 Status: Discontinued insulin lispro 2 unit, 0.02 mL, Route: SUB-Q, Drug form: SOLN, Bedtime, Dosing Weight 99.091, k g, PRN Blood Glucose Results, Start date: 02/05/19 22:27:00 CDT, Duration: 30 da y, Stop date: 03/07/19 22:26:00 CDT Notes: (Same as: Humalog ) Roll in palms of hands gently; Do not shake `vigorou sly. "Single Patient Use Only " WASTE: F/P - Black; E - [facility] [address] able for 28 days at room temperature.Expires in days from Da te Start Date: 02/05/19 Stop Date: 02/06/19 Status: Discontinued insulin lispro 4 unit, 0.04 mL, Route: SUB-Q, Drug form: SOLN, Bedtime, Dosing Weight 99.091, k g, PRN Blood Glucose Results, Start date: 02/05/19 22:27:00 CDT, Duration: 30 da y, Stop date: 03/07/19 22:26:00 CDT Notes: (Same as: Humalog ) Roll in palms of hands gently; Do not shake `vigorou sly. "Single Patient Use Only " WASTE: F/P - Black; E - [facility] [address] able for 28 days at room temperature.Expires in days from Da te Start Date: 02/05/19 Stop Date: 02/06/19 Status: Discontinued insulin lispro 3 unit, 0.03 mL, Route: SUB-Q, Drug form: SOLN, Bedtime, Dosing Weight 99.091, k g, PRN Blood Glucose Results, Start date: 02/05/19 22:27:00 CDT, Duration: 30 da y, Stop date: 03/07/19 22:26:00 CDT Notes: (Same as: Humalog ) Roll in palms of hands gently; Do not shake `vigorou sly. "Single Patient Use Only " WASTE: F/P - Black; E - [facility] [address] able for 28 days at room temperature.Expires in days from Da te Start Date: 02/05/19 Stop Date: 02/06/19 Status: Discontinued lisinopril 2.5 mg, 0.5 tab, Route: PO, Drug form: TAB, Daily, Dosing Weight 99.091, kg, Sta rt date: 02/03/19 9:00:00 CDT, Duration: 30 day, Stop date: 03/04/19 9:00:00 CDT Notes: (Same as: Prinivil, Zestril) Start Date: 02/03/19 Stop Date: 02/06/19 Status: Discontinued loperamide 2 mg, PO, Q4H, PRN, 0 Refill(s) Start Date: 02/03/19 Status: Ordered methylPREDNISolone SODium SUCCinate 125 mg, 2 mL, Route: IVP, Drug form: INJ, ONCE, Dosing Weight 99.091, kg, Start date: 02/05/19 12:32:00 CDT, Stop date: 02/05/19 12:32:00 CDT Notes: (Same as:Solu-MEDROL, A-Methapred) Start Date: 02/05/19 Stop Date: 02/05/19 Status: Completed metoprolol 50 mg oral tablet, extended release 50 mg=1 tab, PO, Daily, # 30 tab, 0 Refill(s), Pharmacy: [facility] Start Date: 02/06/19 Stop Date: 03/08/19 Status: Ordered metoprolol extended release 50 mg, 1 tab, Route: PO, Drug form: ERTAB, Daily, Start date: 02/04/19 9:00:00 C DT, Duration: 30 day, Stop date: 03/05/19 9:00:00 CDT Notes: (Same as: Toprol XL) May split tab, but do not crush. Start Date: 02/04/19 Stop Date: 02/06/19 Status: Discontinued nicotine 21 mg/24 hr transdermal film, extended release =1 patch, TOP, Daily, # 30 patch, 0 Refill(s) Start Date: 02/03/19 Stop Date: 03/05/19 Status: Ordered nitroglycerin SL Tab 0.4 mg, 1 tab, Route: SL, Drug form: TAB, Q5Min, Dosing Weight 99.091, kg, PRN C hest Pain, Start date: 02/05/19 14:59:00 CDT, Duration: 3 doses or times, Stop d ate: Limited # of times Notes: (Same as:Nitroquick, Nitrostat)"Do Not Crush" Sublingual tablet Start Date: 02/05/19 Stop Date: 02/06/19 Status: Discontinued [place]ume 10/325 oral tablet 1 tab, Route: PO, Drug Form: TAB, Dosing Weight 99.091, kg, Q6H, Start date: 04/18 12:00:00 CDT, Duration: 30 day, Stop date: 03/05/19 6:00:00 CDT Start Date: 02/03/19 Stop Date: 02/03/19 Status: Deleted [place] Plume 10/325 oral tablet 1 tab, PO, Q6H, 0 Refill(s) Start Date: 02/03/19 Stop Date: 02/03/19 Status: Discontinued [place] Plume 10/325 oral tablet 1 tab, Route: PO, Drug Form: TAB, Dosing Weight 99.091, kg, Q4H, PRN Pain Score 4-6, Start date: 02/03/19 4:00:00 CDT, Duration: 30 day, Stop date: 03/05/19 3:5 9:00 CDT Notes: Do not exceed 4gm/day of acetaminophen. (Same as: Silver [place]ume 325/10) Start Date: 02/03/19 Stop Date: 02/06/19 Status: Discontinued [place]ume 10/325 oral tablet 1 tab, PO, 5X Day, PRN Pain Score 1-5, 0 Refill(s) Start Date: 02/03/19 Status: Ordered normal saline 0.9% IV 1,000 mL 1,000 mL, Rate: 75 ml/hr, Infuse over: 13.3 hr, Route: IV, Dosing Weight 99.091 kg, Total Volume: 1,000, Start date: 02/05/19 11:50:00 CDT, Duration: 30 day, St op date: 03/07/19 11:49:00 CDT, 2.15, m2 Start Date: 02/05/19 Stop Date: 02/05/19 Status: Discontinued normal saline 0.9% IV 1,000 mL 1,000 mL, Rate: 125 ml/hr, Infuse over: 8 hr, Route: IV, Dosing Weight 99.091 kg , Total Volume: 1,000, Start date: 02/03/19 21:02:00 CDT, Duration: 30 day, Stop date: 03/05/19 21:01:00 CDT, 2.15, m2 Start Date: 02/03/19 Stop Date: 02/05/19 Status: Discontinued omeprazole 40 mg, Route: PO, Drug form: DRC, Daily, Dosing Weight 99.091, kg, Start date: 0 02/03/19 9:00:00 CDT, Duration: 30 day, Stop date: 03/04/19 9:00:00 CDT Start Date: 02/03/19 Stop Date: 02/03/19 Status: Deleted Plavix 75 mg, 1 tab, Route: PO, Drug form: TAB, Q5PM, Dosing Weight 99.091, kg, Start d ate: 04/06/19 17:00:00 CDT, Duration: 30 day, Stop date: 03/04/19 17:00:00 CDT Notes: (Same As: Plavix) Start Date: 02/03/19 Stop Date: 02/06/19 Status: Discontinued Protonix 40 mg, 1 tab, Route: PO, Drug form: ECTAB, Q24H, Start date: 02/03/19 9:00:00 CD T, Duration: 30 day, Stop date: 03/04/19 9:00:00 CDT Notes: Tablet should not be chewed or crushed.(Same as: Protonix) Start Date: 02/03/19 Stop Date: 02/06/19 Status: Discontinued PROzac 40 mg, 4 cap, Route: PO, Drug form: CAP, BID, Dosing Weight 99.091, kg, Start da te: 02/03/19 9:00:00 CDT, Duration: 30 day, Stop date: 03/04/19 17:00:00 CDT Notes: (Same as: Prozac) Start Date: 02/03/19 Stop Date: 02/06/19 Status: Discontinued Remeron 15 mg, PO, Bedtime, 0 Refill(s) Start Date: 02/03/19 Status: Ordered Remeron 15 mg, 1 tab, Route: PO, Drug form: TAB, Bedtime, Dosing Weight 99.091, kg, Star t date: 02/03/19 21:00:00 CDT, Duration: 30 day, Stop date: 03/04/19 21:00:00 CD T Notes: (Same as:Remeron) Start Date: 02/03/19 Stop Date: 02/06/19 Status: Discontinued SEROquel 100 mg, 1 tab, Route: PO, Drug form: TAB, Bedtime, Dosing Weight 91.818, kg, Sta rt date: 02/02/19 23:18:00 CDT, Duration: 30 day, Stop date: 03/04/19 21:00:00 C DT Notes: (Same as: SEROquel) Start Date: 02/02/19 Stop Date: 02/06/19 Status: Discontinued Singulair 10 mg, 1 tab, Route: PO, Drug form: TAB, Bedtime, Dosing Weight 99.091, kg, Star t date: 02/03/19 21:00:00 CDT, Duration: 30 day, Stop date: 03/04/19 21:00:00 CD T Notes: (Same as:Juliet) Start Date: 02/03/19 Stop Date: 02/06/19 Status: Discontinued Sodium Chloride 0.9% IV 1,000 mL 1,000 mL, Rate: 100 ml/hr, Infuse over: 10 hr, Route: IV, Dosing Weight 99.091 k g, Total Volume: 1,000, Start date: 02/05/19 14:59:00 CDT, Duration: 12 hr, Stop date: 02/06/19 2:58:00 CDT, 2.15, m2 Start Date: 02/05/19 Stop Date: 02/06/19 Status: Completed trazodone 100 mg, PO, 0 Refill(s) Start Date: 02/03/19 Stop Date: 02/06/19 Status: Discontinued Wellbutrin See Instructions, 300 mg PO Qday, 0 Refill(s) Start Date: 02/03/19 Status: Ordered Wellbutrin 300 mg, 2 tab, Route: PO, Drug form: ERTAB, Daily, Dosing Weight 99.091, kg, Sta rt date: 02/03/19 9:00:00 CDT, Duration: 30 day, Stop date: 03/04/19 9:00:00 CDT Notes: (Same as: Wellbutrin XL)"Do Not Crush" Start Date: 02/03/19 Stop Date: 02/06/19 Status: Discontinued Zofran 4 mg, PO, PRN, 0 Refill(s) Start Date: 02/03/19 Status: Ordered Results ELECTROLYTES 1 2 3 Most recent to oldest [Reference Range]: 143 mEq/L (02/04/19 7:14 AM) 135 mEq/L (02/03/19 9:23 PM) 134 mEq/L *LOW* (02/02/19 5:14 PM) Sodium Lvl [135-145 mEq/L] 4.4 mEq/L (02/04/19 7:14 AM) 5.4 mEq/L *HI* (02/03/19 9:23 PM) 4.2 mEq/L (02/02/19 5:14 PM) Potassium Lvl [3.5-5.1 mEq/L] 110 mEq/L *HI* (02/04/19 7:14 AM) 103 mEq/L (02/03/19 9:23 PM) 104 mEq/L (02/02/19:14 PM) Chloride Lvl [95-109 mEq/L] 30 mEq/L (02/04/19:14 AM) 27 mEq/L (02/03/19:23 PM) 26 mEq/L (02/02/19:14 PM) CO2 [24-32 mEq/L] 7.4 mEq/L *LOW* (02/04/19:14 AM) 10.4 mEq/L (02/03/19:23 PM) 8.2 mEq/L *LOW* (02/02/19:14 PM) AGAP [10.0-20.0 mEq/L] CHEM PANEL 1 2 3 Most recent to oldest [Reference Range]: 0.69 mg/dL (02/04/19:14 AM) 1.04 mg/dL (02/03/19 9:23 PM) 1.35 mg/dL (02/02/19:14 PM) Creatinine Lvl [0.50-1.40 mg/dL] 98 mL/min/1.73m2 1 *NA* (02/04/19 7:14 AM) 60 mL/min/1.73m2 2 *NA* (02/03/19:23 PM) 44 mL/min/1.73m2 3 *NA* (02/02/19:14 PM) eGFR 14 mg/dL (02/04/19 7:14 AM) 19 mg/dL (02/03/19 9:23 PM) 29 mg/dL *HI* (02/02/19 5:14 PM) BUN [7-22 mg/dL] 21 (02/02/19 5:14 PM) B/C Ratio [6-25] 174 mg/dL *HI* (02/04/19 7:14 AM) 424 mg/dL 4 *CRIT* (02/03/19 9:23 PM) 121 mg/dL *HI* (02/02/19 5:14 PM) Glucose Lvl [70-99 mg/dL] 6.4 g/dL (02/02/19 5:14 PM) Total Protein [6.4-8.4 g/dL] 2.7 g/dL *LOW* (02/02/19 5:14 PM) Albumin Lvl [3.5-5.0 g/dL] 3.7 g/dL (02/02/19 5:14 PM) Globulin [2.7-4.2 g/dL] 0.7 (02/02/19 5:14 PM) A/G Ratio [0.7-1.6] 9.2 mg/dL (02/04/19 7:14 AM) 9.1 mg/dL (02/03/19 9:23 PM) 8.8 mg/dL (02/02/19 5:14 PM) Calcium Lvl [8.5-10.5 mg/dL] 2.6 mg/dL (02/02/19 5:14 PM) Phosphorus [2.5-4.5 mg/dL] 1.9 mg/dL (02/02/19 5:14 PM) Magnesium Lvl [1.8-2.4 mg/dL] 14 unit/L (02/02/19 5:14 PM) ALT [0-65 unit/L] 23 unit/L (02/02/19 5:14 PM) AST [0-37 unit/L] 154 unit/L *HI* (02/02/19 5:14 PM) Alk Phos [39-136 unit/L] 189 unit/L (02/06/19 8:46 AM) LDH [98-192 unit/L] 0.3 mg/dL (02/02/19 5:14 PM) Bili Total [0.2-1.3 mg/dL] 43 unit/L *LOW* (02/02/19 5:14 PM) Lipase Lvl [73-393 unit/L] 1Result Comment: The eGFR is calculated using [...] be mul tiplied by the estimated BMI. 3Result Comment: The eGFR is calculated using the [...] be mul tiplied by the estimated BMI. 4Result Comment: Critical Result(s) called to Shivam Mccain at 02/03/2019 21:58 by wx. Read back OK. CARDIAC ENZYMES 1 2 3 Most recent to oldest [Reference Range]: 1.40 ng/mL 1 *CRIT* (02/03/19 8:19 AM) 2.90 ng/mL 2 *CRIT* (02/02/19 6:29 PM) 2.70 ng/mL 3 *CRIT* (02/02/19 5:14 PM) Troponin-I [0.00-0.40 ng/mL] 1Result Comment: Critical Result(s) called to bakari ivan at 02/03/2019 10:45 by SUNG. Read back OK. 2Result Comment: Critical Result(s) called to myles estrada at 02/02/2019 19:00 by pj. Read back OK. 3Result Comment: Critical Result(s) called to myles estrada at 02/02/2019 18:08 by pj. Read back OK. ANEMIA STUDY 1 2 3 Most recent to oldest [Reference Range]: 23 ug/dl *LOW* (02/06/19 8:46 AM) Iron [30-160 ug/dl] 32 ng/mL (02/06/19 8:46 AM) Ferritin Lvl [5-204 ng/mL] 8 % *LOW* (02/06/19 8:46 AM) % Satur Fe [12-57 %] 264 ug/dl (02/06/19 8:46 AM) UIBC [110-370 ug/dl] 378 pg/mL (02/06/19 8:46 AM) Vitamin B12 Lvl [254-1320 pg/mL] 10.3 ng/mL (02/06/19 8:46 AM) Folate Lvl [>=3.0 ng/mL] 287 ug/dl (02/06/19 8:46 AM) TIBC [228-428 ug/dl] URINE AND STOOL 1 2 3 Most recent to oldest [Reference Range]: Clear (02/02/19 10:54 PM) UA Turbidity [Clear] Ltyellow *NA* (02/02/19 10:54 PM) UA Color 5.0 (02/02/19 10:54 PM) UA pH [5.0-8.0] 1.008 (02/02/19 10:54 PM) UA Spec Grav [<=1.030] 50 mg/dL *ABN* (02/02/19 10:54 PM) UA Glucose [Negative mg/dL] Negative (02/02/19 10:54 PM) UA Blood [Negative] Negative *NA* (02/02/19 10:54 PM) UA Ketones [Negative] Negative (02/02/19 10:54 PM) UA Protein [Negative] <=1.0 mg/dL *NA* (02/02/19 10:54 PM) UA Urobilinogen [0.1-1.0 mg/dL] Negative *NA* (02/02/19 10:54 PM) UA Bili [Negative] Trace *ABN* (02/02/19 10:54 PM) UA Leuk Est [Negative] Negative (02/02/19 10:54 PM) UA Nitrite [Negative] 1 /HPF (02/02/19 10:54 PM) UA WBC [0-5 /HPF] 1 /HPF (02/02/19 10:54 PM) UA RBC [0-2 /HPF] Occasional /HPF *NA* (02/02/19 10:54 PM) UA Bacteria [None Seen /HPF] Few /LPF *NA* (02/02/19 10:54 PM) UA Sq Epi [Few /LPF] 1 /LPF (02/02/19 10:54 PM) UA Hyal Cast [0-2 /LPF] HEMATOLOGY 1 2 3 Most recent to oldest [Reference Range]: 11.1 K/CMM *HI* (02/06/19 8:46 AM) 7.3 K/CMM (02/04/19 7:14 AM) 9.4 K/CMM (02/03/19 1:51 AM) WBC [3.7-10.4 K/CMM] 3.60 M/CMM *LOW* (02/06/19 8:46 AM) 3.70 M/CMM *LOW* (02/04/19 7:14 AM) 3.65 M/CMM *LOW* (02/03/19 1:51 AM) RBC [4.20-5.40 M/CMM] 9.5 g/dL *LOW* (02/06/19 8:46 AM) 9.6 g/dL *LOW* (02/04/19 7:14 AM) 9.6 g/dL *LOW* (02/03/19 1:51 AM) Hgb [12.0-16.0 g/dL] 29.9 % *LOW* (02/06/19 8:46 AM) 31.0 % *LOW* (02/04/19 7:14 AM) 30.4 % *LOW* (02/03/19 1:51 AM) Hct [36.0-48.0 %] 82.9 fL (02/06/19 8:46 AM) 83.8 fL (02/04/19 7:14 AM) 83.2 fL (02/03/19 1:51 AM) MCV [80.0-98.0 fL] 26.2 pg *LOW* (02/06/19 8:46 AM) 26.0 pg *LOW* (02/04/19 7:14 AM) 26.3 pg *LOW* (02/03/19 1:51 AM) MCH [27.0-31.0 pg] 31.7 g/dL *LOW* (02/06/19 8:46 AM) 31.0 g/dL *LOW* (02/04/19 7:14 AM) 31.5 g/dL *LOW* (02/03/19 1:51 AM) MCHC [32.0-36.0 g/dL] 18.0 % *HI* (02/06/19 8:46 AM) 18.0 % *HI* (02/04/19 7:14 AM) 18.0 % *HI* (02/03/19 1:51 AM) RDW [11.5-14.5 %] 8.4 fL (02/06/19 8:46 AM) 8.3 fL (02/04/19 7:14 AM) 8.0 fL (02/03/19 1:51 AM) MPV [7.4-10.4 fL] 372 K/CMM (02/06/19 8:46 AM) 312 K/CMM (02/04/19 7:14 AM) 269 K/CMM (02/03/19 1:51 AM) Platelet [133-450 K/CMM] 58.8 % (02/03/19 1:51 AM) 58.7 % (02/02/19 5:14 PM) Segs [45.0-75.0 %] 33.8 % (02/03/19 1:51 AM) 32.8 % (02/02/19 5:14 PM) Lymphocytes [20.0-40.0 %] 6.3 % (02/03/19 1:51 AM) 7.5 % (02/02/19 5:14 PM) Monocytes [2.0-12.0 %] 0.5 % (02/03/19 1:51 AM) 0.2 % (02/02/19 5:14 PM) Eosinophils [0.0-4.0 %] 0.6 % (02/03/19 1:51 AM) 0.8 % (02/02/19 5:14 PM) Basophils [0.0-1.0 %] 5.5 K/CMM (02/03/19 1:51 AM) 7.2 K/CMM (02/02/19 5:14 PM) Neutrophils # [1.5-8.1 K/CMM] 3.2 K/CMM (02/03/19 1:51 AM) 4.0 K/CMM (02/02/19 5:14 PM) Lymphocytes # [1.0-5.5 K/CMM] 0.6 K/CMM (02/03/19 1:51 AM) 0.9 K/CMM *HI* (02/02/19 5:14 PM) Monocytes # [0.0-0.8 K/CMM] 0.1 K/CMM (02/03/19 1:51 AM) 0.1 K/CMM (02/02/19 5:14 PM) Basophils # [0.0-0.2 K/CMM] 1.9 % *HI* (02/06/19 8:46 AM) Retic Auto [0.5-1.5 %] 13.9 seconds (02/02/19 5:14 PM) PT [12.0-14.7 seconds] 1.09 (02/02/19 5:14 PM) INR [0.85-1.17] 72.9 seconds *HI* (02/05/19 7:13 AM) 65.4 seconds *HI* (02/04/19 10:42 PM) 48.0 seconds *HI* (02/04/19 1:34 PM) PTT [22.9-35.8 seconds] Immunizations No data available for this section Procedures Procedure Date Related Diagnosis Body Site Status Abdominal hysterectomy Completed Eye incision Completed Foot joint operations Completed Procedure Completed Social History Social History Type Response [...] 365 Days Yes; Reg Smoking Cessation Counseling Yes; Tobacco use per day: 2; Started at age[age]; 1 entered on: 02/02/19 1pt smokes 2 packs per day, refuses to quit Assessment and Plan Extracted from: Title: Cardiology Progress Note * Author: Eric Dupree DO Date: 02/06/19 Impression and Plan Assessment: Altered mental status, unspecified (R41.82) Non-ST elevation (NSTEMI) myocardial infarction (I21.4) Plan: -s/p PCI LAD -continue plavix (aspirin allergy) -continue beta martha and statin Thank you for involving us in this patient's care. The patient was seen and examined by me with the resident/FUR POLISHER/PA and I agree with the History/Exam documented. Extracted from: Title: Cardiology Catheterization Author: Tin Ruiz MD Date: 02/05/19 Report Cardiology Catheterization Report Attending: Jermaine Thorpe MDPhone: Service: Internal Medicine Code status: Full Code Reason for Admission: ALTERED MENTAL STATUS, NSTEMI Working DRG: Isolation: No Isolation/Standard Precautions Consulting Physicians: Susan Coy MDOffice: Service: Medicine, Neurology Rishi Gonzalez MDOffice: Service: Psychiatry Jermaine Thorpe MDOffice: Service: Medicine Tin Ruiz MDOffice: Service: Cardiology Jillian Reinoso MDOffice: Service: Cardiology Indications: NSTEMI Pre-sedation Assessment: Medical history, social history and previous experience with anesthesia was reviewed as documented in the preoperative medical record. Results of relevant diagnostic studies reviewed. Planned choice of anesthesia, risks, complications, benefits, and alternatives discussed. Patient deemed appropriate candidate for planned choice of anesthesia. Consent: The benefits, risks, complications and alternatives to the procedure were discussed with patient and informed consent was obtained from patient or their surrogate. Medications: Please see nursing notes for medications administered during the procedure. Procedure: Patient was brought to the cardiac catheterization laboratory in a fasting state. RIGHT wrist was prepped and draped in a sterile fashion. 1% lidocaine was used to infiltrate the right wrist over the radial artery. A 5 Fr sheath was placed in the right radial artery using the Seldinger technique. Coronary angiography was performed using a Apprats catheter to engage both the RCA and LCA. Multiple orthogonal views were obtained of each coronary artery. All catheters were removed over a guide wire. The following lesions were identified for PCI as described below: 1. 70% mid LAD lesion, type B1 Full anticoagulation was achieved using IV and IC heparin boluses were given as needed throughout the procedure to maintain ACT near 300s. For PCI of the LAD, a IL 3.5 6Fr guide catheter was used which provided adequate support. A 0.014" Runthrough wire was used to cross the lesion. Direct stenting was performed using a 3.0 x 15 mm Resolute Kit stent (Drug-eluting stent). Post-dilation was done using the stent balloon. This provided a favorable final angiographic result with no significant residual stenosis, dissection, thrombus or spasm. Antiplatelet therapy administered in the general labor forklift operator included ASA and Ticagrelor 180 mg loading dose. The patient tolerated the procedure well and suffered no complications. The access site was closed using TR band. The case ended without any complications. Estimated blood loss approximately 50 mL. Findings: LMCA: Large caliber. Normal. LAD: Large vessel. Goes to the apex. 70% mid LAD lesion. Septal and apical collaterals to RCA. LCX: Large, non dominant vessel. 2 significant OM branches. No significant coronary artery disease. RCA: Large dominant RCA. 100% SYSTEMS CHECKOUT MECHANIC of mid RCA. JCTO 3. Complications: None Specimen Removed: None Implants: None Estimated Blood Loss: 20 mL. Recommendations: 1.Usual post PCI care and observation as ordered. 2.Maintain uninterrupted dual-antiplatelet therapy with aspirin and Plavix for at least 12 months, preferably longer, and aspirin daily for life. 3. Medical therapy with aggressive risk factor modification for secondary prevention of CAD. 4. Follow up in clinic in 2 weeks after discharge. Extracted from: Title: Clinical Document Author: Rishi Gonzalez MD Date: 02/04/19 Patient seen, report dictated
--- OUTSIDE RECORDS SUMMARY | 2019-03-07 13:25 | XMS REPORT | Summary of Care ---
Author Author [facility] Organization [facility] Address Unknown Phone Unavailable Encounter MARIAH Hall(JOSE) [id number] Date(s): 02/27/19 - 02/28/19 [facility] [address] [place] [address]- Discharge Disposition: Home or Self Care Attending Physician: Tin Ruiz MD Admitting Physician: Tin Ruiz MD Vital Signs 1 2 3 Most recent to oldest [Reference Range]: 162.56 cm (02/27/19 7:46 PM) 162.56 cm (02/27/19 1:52 PM) Height 98.6 DegF (02/28/19 11:33 AM) 98.2 DegF (02/28/19 7:26 AM) 98.4 DegF (02/28/19 4:27 AM) Temperature Oral [96.4-99.1 DegF] 131/67 mmHg (02/28/19 1:46 PM) 107/67 mmHg (02/28/19 11:33 AM) 115/60 mmHg (02/28/19 7:26 AM) Blood Pressure [90-140/60-90 mmHg] 17 BRMIN (02/28/19 11:33 AM) 19 BRMIN (02/28/19 7:52 AM) 16 BRMIN (02/28/19 4:27 AM) Respiratory Rate [14-20 BRMIN] 70 bpm (02/28/19 1:46 PM) 70 bpm (02/28/19 11:33 AM) 71 bpm (02/28/19 7:26 AM) Peripheral Pulse Rate [60-100 bpm] 104.545 kg (02/27/19 7:46 PM) 104 kg (02/27/19 1:52 PM) Weight 39.56 m2 (02/27/19 7:46 PM) 39.36 m2 (02/27/19 1:52 PM) Body Mass Index Problem List Condition Effective Dates Status Health Status Informant Type II diabetes Active mellitus poorly controlled(Confirmed ) Allergies, Adverse Reactions, Alerts Substance Reaction Severity Status sulfa drugs Active predniSONE Active aspirin Active iodine Active NSAIDs Active Medications acetaminophen 650 mg, 2 tab, Route: PO, Drug form: TAB, Q4H, Dosing Weight 104, kg, PRN Pain S core 1-5, Start date: 02/27/19 19:44:00 CDT, Duration: 30 day, Stop date: 19:43:00 CDT Notes: Do not exceed 4 gm/day. (Same as: Tylenol) Start Date: 02/27/19 Stop Date: 02/28/19 Status: Discontinued Advair Diskus 100 mcg-50 mcg inhalation powder 1 puff, Route: INHALATION, Drug Form: PWDR, Dosing Weight 104.545, kg, BID, Star t date: 02/28/19 9:00:00 CDT, Duration: 30 day, Stop date: 03/29/19 17:00:00 CDT Start Date: 02/28/19 Stop Date: 02/27/19 Status: Deleted albuterol 2.49 mg, 3 mL, Route: NEB, Drug form: NATTY, RQID, Start date: 02/28/19 7:00:00 C DT, Duration: 30 day, Stop date: 03/29/19 19:00:00 CDT Notes: SEE RT DOCUMENTATION (Same as: Marlon) Start Date: 02/28/19 Stop Date: 02/28/19 Status: Discontinued albuterol-ipratropium 2.5-0.5 mg inhalation solution 3 mL, Route: INHALATION, Drug Form: SOLN, Dosing Weight 104.545, kg, Q6H, PRN Wh eezing, Start date: 02/27/19 21:51:00 CDT, Duration: 30 day, Stop date: 03/29/19 21:50:00 CDT Notes: (Same as: Lachelle) Start Date: 02/27/19 Stop Date: 02/28/19 Status: Discontinued atorvastatin 40 mg, 1 tab, Route: PO, Drug form: TAB, Bedtime, Dosing Weight 104.545, kg, Sta rt date: 02/28/19 21:00:00 CDT, Duration: 30 day, Stop date: 03/29/19 21:00:00 C DT Notes: (Same as: Lipitor) Start Date: 02/28/19 Stop Date: 02/28/19 Status: Canceled busPIRone 7.5 mg, 1.5 tab, Route: PO, Drug form: TAB, BID, Dosing Weight 104.545, kg, Star t date: 02/28/19 9:00:00 CDT, Duration: 30 day, Stop date: 03/29/19 17:00:00 CDT Notes: (Same As: BuSpar) Start Date: 02/28/19 Stop Date: 02/28/19 Status: Discontinued clonazePAM 0.5 mg, 1 tab, Route: PO, Drug form: TAB, BID, Dosing Weight 104.545, kg, PRN An xiety, Start date: 02/27/19 21:51:00 CDT, Duration: 30 day, Stop date: 03/29/19 21:50:00 CDT Notes: (Same As: KlonoPIN) Start Date: 02/27/19 Stop Date: 02/28/19 Status: Discontinued Dextrose 50% Syringe 12.5 gm, 25 mL, Route: IVP, Drug Form: INJ, Dosing Weight 104.545, kg, PRN, PRN Blood Glucose Results, Start date: 02/27/19 21:51:00 CDT, Duration: 30 day, Stop date: 03/29/19 21:50:00 CDT Start Date: 02/27/19 Stop Date: 02/28/19 Status: Discontinued Dextrose 50% Syringe 25 gm, 50 mL, Route: IVP, Drug Form: INJ, Dosing Weight 104.545, kg, PRN, PRN Bl ood Glucose Results, Start date: 02/27/19 21:51:00 CDT, Duration: 30 day, Stop d ate: 03/29/19 21:50:00 CDT Start Date: 02/27/19 Stop Date: 02/28/19 Status: Discontinued gabapentin 400 mg, 1 cap, Route: PO, Drug form: CAP, TID, Dosing Weight 104.545, kg, Start date: 02/28/19 9:00:00 CDT, Duration: 30 day, Stop date: 03/29/19 17:00:00 CDT Notes: (Same as: Neurontin) Start Date: 02/28/19 Stop Date: 02/28/19 Status: Discontinued glucagon 1 mg, Route: IM, Drug form: PDR/INJ, PRN, Dosing Weight 104.545, kg, PRN Blood G lucose Results, Start date: 02/27/19 21:51:00 CDT, Duration: 30 day, Stop date: 03/29/19 21:50:00 CDT Start Date: 02/27/19 Stop Date: 02/28/19 Status: Discontinued Humalog 7 unit, 0.07 mL, Route: SUB-Q, Drug form: SOLN, TID-Before Meals, Start date: 7:30:00 CDT, Duration: 30 day, Stop date: 03/29/19 16:30:00 CDT Notes: (Same as: Humalog) Roll in palms of hands gently; Do not shake vigorously . WASTE: F/P - Black; E - Municipal Trash BinStable for 28 days at room tempera ture.Expires in days from Date Start Date: 02/28/19 Stop Date: 02/28/19 Status: Discontinued insulin detemir 32 unit, Route: SUB-Q, Drug form: SOLN, BID, Dosing Weight 104.545, kg, Start da te: 02/28/19 9:00:00 CDT, Duration: 30 day, Stop date: 03/29/19 17:00:00 CDT Start Date: 02/28/19 Stop Date: 02/27/19 Status: Deleted insulin glargine 64 unit, 0.64 mL, Route: SUB-Q, Drug form: SOLN, Bedtime, Start date: 02/27/19 2 2:30:00 CDT, Duration: 30 day, Stop date: 03/29/19 21:00:00 CDT Notes: (Same as: Lantus)Do not hold insulin without contacting prescriberWASTE: F/P - Black; E - Municipal Trash Bin"single patient use only"Stable for 28 days at room temperature Expires in days from Date Start Date: 02/27/19 Stop Date: 02/28/19 Status: Discontinued insulin lispro 4 unit, 0.04 mL, Route: SUB-Q, Drug form: SOLN, Bedtime, Dosing Weight 104.545, kg, PRN Blood Glucose Results, Start date: 02/27/19 21:51:00 CDT, Duration: 30 d ay, Stop date: 03/29/19 21:50:00 CDT Notes: (Same as: Humalog) Roll in palms of hands gently; Do not shake vigorously . WASTE: F/P - Black; E - Municipal Trash BinStable for 28 days at room tempera ture.Expires in days from Date Start Date: 02/27/19 Stop Date: 02/28/19 Status: Discontinued insulin lispro 3 unit, 0.03 mL, Route: SUB-Q, Drug form: SOLN, Bedtime, Dosing Weight 104.545, kg, PRN Blood Glucose Results, Start date: 02/27/19 21:51:00 CDT, Duration: 30 d ay, Stop date: 03/29/19 21:50:00 CDT Notes: (Same as: Humalog) Roll in palms of hands gently; Do not shake vigorously . WASTE: F/P - Black; E - Municipal Trash BinStable for 28 days at room tempera ture.Expires in days from Date Start Date: 02/27/19 Stop Date: 02/28/19 Status: Discontinued insulin lispro 2 unit, 0.02 mL, Route: SUB-Q, Drug form: SOLN, Bedtime, Dosing Weight 104.545, kg, PRN Blood Glucose Results, Start date: 02/27/19 21:51:00 CDT, Duration: 30 d ay, Stop date: 03/29/19 21:50:00 CDT Notes: (Same as: Humalog) Roll in palms of hands gently; Do not shake vigorously . WASTE: F/P - Black; E - Municipal Trash BinStable for 28 days at room tempera ture.Expires in days from Date Start Date: 02/27/19 Stop Date: 02/28/19 Status: Discontinued insulin lispro 1 unit, 0.01 mL, Route: SUB-Q, Drug form: SOLN, Bedtime, Dosing Weight 104.545, kg, PRN Blood Glucose Results, Start date: 02/27/19 21:51:00 CDT, Duration: 30 d ay, Stop date: 03/29/19 21:50:00 CDT Notes: (Same as: Humalog) Roll in palms of hands gently; Do not shake vigorously . WASTE: F/P - Black; E - Municipal Trash BinStable for 28 days at [facility].Expires in days from Date Start Date: 02/27/19 Stop Date: 02/28/19 Status: Discontinued insulin lispro 5 unit, 0.05 mL, Route: SUB-Q, Drug form: SOLN, TID-Before Meals, Dosing Weight 104.545, kg, PRN Blood Glucose Results, Start date: 02/27/19 21:51:00 CDT, Durat ion: 30 day, Stop date: 03/29/19 21:50:00 CDT Notes: (Same as: Humalog) Roll in palms of hands gently; Do not shake vigorously . WASTE: F/P - Black; E - Municipal Trash BinStable for 28 days at [facility].Expires in days from Date Start Date: 02/27/19 Stop Date: 02/28/19 Status: Discontinued insulin lispro 4 unit, 0.04 mL, Route: SUB-Q, Drug form: SOLN, TID-Before Meals, Dosing Weight 104.545, kg, PRN Blood Glucose Results, Start date: 02/27/19 21:51:00 CDT, Durat ion: 30 day, Stop date: 03/29/19 21:50:00 CDT Notes: (Same as: Humalog) Roll in palms of hands gently; Do not shake vigorously . WASTE: F/P - Black; E - Municipal Trash BinStable for 28 days at [facility].Expires in days from Date Start Date: 02/27/19 Stop Date: 02/28/19 Status: Discontinued insulin lispro 3 unit, 0.03 mL, Route: SUB-Q, Drug form: SOLN, TID-Before Meals, Dosing Weight 104.545, kg, PRN Blood Glucose Results, Start date: 02/27/19 21:51:00 CDT, Durat ion: 30 day, Stop date: 03/29/19 21:50:00 CDT Notes: (Same as: Humalog) Roll in palms of hands gently; Do not shake vigorously . WASTE: F/P - Black; E - Municipal Trash BinStable for 28 days at [facility].Expires in days from Date Start Date: 02/27/19 Stop Date: 02/28/19 Status: Discontinued insulin lispro 1 unit, 0.01 mL, Route: SUB-Q, Drug form: SOLN, TID-Before Meals, Dosing Weight 104.545, kg, PRN Blood Glucose Results, Start date: 02/27/19 21:51:00 CDT, Durat ion: 30 day, Stop date: 03/29/19 21:50:00 CDT Notes: (Same as: Humalog) Roll in palms of hands gently; Do not shake vigorously . WASTE: F/P - Black; E - Municipal Trash BinStable for 28 days at [facility].Expires in days from Date Start Date: 02/27/19 Stop Date: 02/28/19 Status: Discontinued insulin lispro 2 unit, 0.02 mL, Route: SUB-Q, Drug form: SOLN, TID-Before Meals, Dosing Weight 104.545, kg, PRN Blood Glucose Results, Start date: 02/27/19 21:51:00 CDT, Durat ion: 30 day, Stop date: 03/29/19 21:50:00 CDT Notes: (Same as: Humalog) Roll in palms of hands gently; Do not shake vigorously . WASTE: F/P - Black; E - Municipal Trash BinStable for 28 days at room tempera ture.Expires in days from Date Start Date: 02/27/19 Stop Date: 02/28/19 Status: Discontinued lisinopril 2.5 mg, 0.5 tab, Route: PO, Drug form: TAB, Daily, Dosing Weight 104.545, kg, St art date: 02/28/19 9:00:00 CDT, Duration: 30 day, Stop date: 03/29/19 9:00:00 CD T Notes: (Same as: Prinivil, Zestril) Start Date: 02/28/19 Stop Date: 02/28/19 Status: Discontinued Lovenox 40 mg, 0.4 mL, Route: SUB-Q, Drug form: INJ, [id number], Dosing Weight 104, kg, St art date: 02/27/19 20:00:00 CDT, Duration: 30 day, Stop date: 03/28/19 20:00:00 CDT Notes: (Same as: Lovenox) Start Date: 02/27/19 Stop Date: 02/28/19 Status: Discontinued metoprolol extended release 50 mg, 1 tab, Route: PO, Drug form: ERTAB, Daily, Start date: 02/28/19 9:00:00 C DT, Duration: 30 day, Stop date: 03/29/19 9:00:00 CDT Notes: (Same as: Toprol XL) May split tab, but do not crush. Start Date: 02/28/19 Stop Date: 02/28/19 Status: Discontinued morphine Sulfate 2 mg, 1 mL, Route: IVP, Drug form: SOLN, ONCE, Dosing Weight 104.545, kg, Start date: 02/28/19 13:34:00 CDT, Stop date: 02/28/19 13:34:00 CDT Start Date: 02/28/19 Stop Date: 02/28/19 Status: Completed morphine Sulfate 4 mg, Route: IVP, ONCE, Dosing Weight 104, kg, Priority: STAT, Start date: 02/27 18:17:00 CDT, Stop date: 02/27/19 18:17:00 CDT Start Date: 02/27/19 Stop Date: 02/27/19 Status: Completed morphine Sulfate 2 mg, 0.5 mL, Route: IVP, Drug form: SOLN, Q15Min, Dosing Weight 104, kg, PRN Ch est Pain, Start date: 02/27/19 19:44:00 CDT, Duration: 2 doses or times, Stop da te: Limited # of times Notes: (Same as:MORPhine Sulfate) Start Date: 02/27/19 Stop Date: 02/28/19 Status: Completed nicotine 21 mg, 1 patch, Route: TOP, Drug form: ERFILM, Daily, Dosing Weight 104.545, kg, Start date: 02/28/19 9:00:00 CDT, Duration: 30 day, Stop date: 03/29/19 9:00:00 CDT Notes: (Same as: Habitrol)"Remove old patch before application of new patch"WAST E: F/P - P Waste Black; E - P Waste Black Start Date: 02/28/19 Stop Date: 02/28/19 Status: Discontinued nitroglycerin SL Tab 0.4 mg, 1 tab, Route: SL, Drug form: TAB, Q5Min, Dosing Weight 104, kg, PRN Ches t Pain, Start date: 02/27/19 19:44:00 CDT, Duration: 3 doses or times, Stop date : Limited # of times Notes: (Same as:Nitroquick, Nitrostat)"Do Not Crush" Sublingual tablet Start Date: 02/27/19 Stop Date: 02/28/19 Status: Discontinued [place] 5/325 oral tablet 1 tab, Route: PO, Drug Form: TAB, Dosing Weight 104, kg, ONCE, STAT, Start date: 02/27/19 16:00:00 CDT, Stop date: 02/27/19 16:00:00 CDT Start Date: 02/27/19 Stop Date: 02/27/19 Status: Completed NovoLOG Route: SUB-Q, Drug form: SOLN, TID-Before Meals, Dosing Weight 104.545, kg, Star t date: 02/28/19 7:30:00 CDT, Duration: 30 day, Stop date: 03/29/19 16:30:00 CDT Start Date: 02/28/19 Stop Date: 02/27/19 Status: Deleted omeprazole 40 mg, Route: PO, Drug form: DRC, Daily, Dosing Weight 104.545, kg, Start date: 02/28/19 9:00:00 CDT, Duration: 30 day, Stop date: 03/29/19 9:00:00 CDT Start Date: 02/28/19 Stop Date: 02/27/19 Status: Deleted ondansetron 4 mg, 1 tab, Route: PO, Drug form: TAB, Q8H, Dosing Weight 104, kg, PRN Nausea & Vomiting, Start date: 02/27/19 19:44:00 CDT, Duration: 30 day, Stop date: 03/29 19:43:00 CDT Notes: (Same as: Zofran) Start Date: 02/27/19 Stop Date: 02/28/19 Status: Discontinued Plavix 75 mg, 1 tab, Route: PO, Drug form: TAB, Q5PM, Dosing Weight 104.545, kg, Start date: 02/28/19 17:00:00 CDT, Duration: 30 day, Stop date: 03/29/19 17:00:00 CDT Notes: (Same As: Plavix) Start Date: 02/28/19 Stop Date: 02/28/19 Status: Discontinued Protonix 40 mg, 1 tab, Route: PO, Drug form: ECTAB, Before Breakfast, Start date: 9 7:30:00 CDT, Duration: 30 day, Stop date: 03/29/19 7:30:00 CDT Notes: Tablet should not be chewed or crushed.(Same as: Protonix) Start Date: 02/28/19 Stop Date: 02/28/19 Status: Discontinued PROzac 40 mg, 4 cap, Route: PO, Drug form: CAP, BID, Dosing Weight 104.545, kg, Start d ate: 02/28/19 9:00:00 CDT, Duration: 30 day, Stop date: 03/29/19 17:00:00 CDT Notes: (Same as: Prozac) Start Date: 02/28/19 Stop Date: 02/28/19 Status: Discontinued Pulmicort Respules 0.25 mg, 2 mL, Route: NEB, Drug form: SUSP, RBID, Start date: 02/27/19 22:07:00 CDT, Duration: 30 day, Stop date: 03/29/19 20:00:00 CDT Notes: (Same As: Pulmicort respule). Start Date: 02/27/19 Stop Date: 02/28/19 Status: Discontinued Remeron 15 mg, 1 tab, Route: PO, Drug form: TAB, Bedtime, Dosing Weight 104.545, kg, Sta rt date: 02/28/19 21:00:00 CDT, Duration: 30 day, Stop date: 03/29/19 21:00:00 C DT Notes: (Same as:Remeron) Start Date: 02/28/19 Stop Date: 02/28/19 Status: Canceled Saline Flush 0.9% 10 ml, Route: IVP, Drug Form: INJ, Dosing Weight 104, kg, Q12H, Start date: 01/31 21:00:00 CDT, Duration: 30 day, Stop date: 03/29/19 9:00:00 CDT Notes: (Same as: BD Posiflush) Start Date: 02/27/19 Stop Date: 02/28/19 Status: Discontinued Saline Flush 0.9% 10 ml, Route: IVP, Drug Form: INJ, Dosing Weight 104, kg, PRN, PRN Line Flush, S tart date: 02/27/19 19:44:00 CDT, Duration: 30 day, Stop date: 03/29/19 19:43:00 CDT Notes: (Same as: BD Posiflush) Start Date: 02/27/19 Stop Date: 02/28/19 Status: Discontinued SEROquel 150 mg, 3 tab, Route: PO, Drug form: TAB, Bedtime, Dosing Weight 104.545, kg, St art date: 02/28/19 21:00:00 CDT, Duration: 30 day, Stop date: 03/29/19 21:00:00 CDT Notes: (Same as: SEROquel) Start Date: 02/28/19 Stop Date: 02/28/19 Status: Canceled Singulair 10 mg, 1 tab, Route: PO, Drug form: TAB, Bedtime, Dosing Weight 104.545, kg, Sta rt date: 02/28/19 21:00:00 CDT, Duration: 30 day, Stop date: 03/29/19 21:00:00 C DT Notes: (Same as:Singulair) Start Date: 02/28/19 Stop Date: 02/28/19 Status: Canceled Tylenol with Codeine #3 oral tablet 1 tab, Route: PO, Drug Form: TAB, Dosing Weight 104.545, kg, Q4H, PRN Pain Score 6-10, Start date: 02/28/19 13:15:00 CDT, Duration: 30 day, Stop date: 03/30/19 13:14:00 CDT Notes: Do not exceed 4gm/day of acetaminophen. (Same as: Tylenol with Codeine # 3) Start Date: 02/28/19 Stop Date: 02/28/19 Status: Discontinued Wellbutrin 300 mg, 3 tab, Route: PO, Drug form: TAB, Daily, Dosing Weight 104.545, kg, Star t date: 02/28/19 9:00:00 CDT, Duration: 30 day, Stop date: 03/29/19 9:00:00 CDT Notes: (Same As: Wellbutrin) Start Date: 02/28/19 Stop Date: 02/28/19 Status: Discontinued Zofran 4 mg, Route: IVP, Drug form: INJ, ONCE, Dosing Weight 104, kg, Priority: STAT, S tart date: 02/27/19 16:01:00 CDT, Stop date: 02/27/19 16:01:00 CDT Start Date: 02/27/19 Stop Date: 02/27/19 Status: Completed Results 1 2 3 Most recent to oldest [Reference Range]: 8.1 K/CMM (02/27/19 3:04 PM) Neutrophils # [1.5-8.1 K/CMM] 3.1 K/CMM (02/27/19 3:04 PM) Lymphocytes # [1.0-5.5 K/CMM] 0.7 K/CMM (02/27/19 3:04 PM) Monocytes # [0.0-0.8 K/CMM] 0.2 K/CMM (02/27/19 3:04 PM) Eosinophils # [0.0-0.5 K/CMM] 0.1 K/CMM (02/27/19 3:04 PM) Basophils # [0.0-0.2 K/CMM] 49 pg/mL (02/27/19 3:04 PM) BNP [<=100 pg/mL] 60 mL/min/1.73m2 1 *NA* (02/27/19 3:04 PM) eGFR See Note (02/27/19 3:04 PM) UDS Note 0.8 (02/27/19 3:04 PM) A/G Ratio [0.7-1.6] 3.3 g/dL *LOW* (02/27/19 3:04 PM) Albumin Lvl [3.5-5.0 g/dL] 196 unit/L *HI* (02/27/19 3:04 PM) Alk Phos [39-136 unit/L] 15 unit/L (02/27/19 3:04 PM) ALT [0-65 unit/L] Negative *NA* (02/27/19 3:04 PM) U Amph Scr [Negative] 12.8 mEq/L (02/27/19 3:04 PM) AGAP [10.0-20.0 mEq/L] 10 unit/L (02/27/19 3:04 PM) AST [0-37 unit/L] 22 (02/27/19 3:04 PM) B/C Ratio [6-25] Negative *NA* (02/27/19 3:04 PM) U Ciara Scr [Negative] 0.8 % (02/27/19 3:04 PM) Basophils [0.0-1.0 %] Negative *NA* (02/27/19 3:04 PM) U Benzodiaz Scr [Negative] 23 mg/dL *HI* (02/27/19 3:04 PM) BUN [7-22 mg/dL] 9.7 mg/dL (02/27/19 3:04 PM) Calcium Lvl [8.5-10.5 mg/dL] 69 unit/L (02/27/19 3:04 PM) Total CK [12-191 unit/L] 107 mEq/L (02/27/19 3:04 PM) Chloride Lvl [95-109 mEq/L] 27 mEq/L (02/27/19 3:04 PM) CO2 [24-32 mEq/L] Negative *NA* (02/27/19 3:04 PM) U Cocaine Scr [Negative] 1.05 mg/dL (02/27/19 3:04 PM) Creatinine Lvl [0.50-1.40 mg/dL] 1.3 % (02/27/19 3:04 PM) Eosinophils [0.0-4.0 %] 3.9 g/dL (02/27/19 3:04 PM) Globulin [2.7-4.2 g/dL] 199 mg/dL *HI* (02/27/19 3:04 PM) Glucose Lvl [70-99 mg/dL] 35.8 % *LOW* (02/27/19 3:04 PM) Hct [36.0-48.0 %] 11.6 g/dL *LOW* (02/27/19 3:04 PM) Hgb [12.0-16.0 g/dL] 0.94 (02/27/19 3:04 PM) INR [0.85-1.17] 4.8 mEq/L (02/27/19 3:04 PM) Potassium Lvl [3.5-5.1 mEq/L] 25.7 % (02/27/19 3:04 PM) Lymphocytes [20.0-40.0 %] 26.8 pg *LOW* (02/27/19 3:04 PM) MCH [27.0-31.0 pg] 32.4 g/dL (02/27/19 3:04 PM) MCHC [32.0-36.0 g/dL] 82.8 fL (02/27/19 3:04 PM) MCV [80.0-98.0 fL] 1.7 mg/dL *LOW* (02/27/19 3:04 PM) Magnesium Lvl [1.8-2.4 mg/dL] 5.8 % (02/27/19 3:04 PM) Monocytes [2.0-12.0 %] 8.9 fL (02/27/19 3:04 PM) MPV [7.4-10.4 fL] 142 mEq/L (02/27/19 3:04 PM) Sodium Lvl [135-145 mEq/L] Positive *ABN* (02/27/19 3:04 PM) U Opiate Scr [Negative] Negative *NA* (02/27/19 3:04 PM) U Phencyclidine Scr [Negative] 2.8 mg/dL (02/27/19 3:04 PM) Phosphorus [2.5-4.5 mg/dL] 318 K/CMM (02/27/19 3:04 PM) Platelet [133-450 K/CMM] 66.4 % (02/27/19 3:04 PM) Segs [45.0-75.0 %] 7.2 g/dL (02/27/19 3:04 PM) Total Protein [6.4-8.4 g/dL] 12.4 seconds (02/27/19 3:04 PM) PT [12.0-14.7 seconds] 4.32 M/CMM (02/27/19 3:04 PM) RBC [4.20-5.40 M/CMM] 18.7 % *HI* (02/27/19 3:04 PM) RDW [11.5-14.5 %] 0.3 mg/dL (02/27/19 3:04 PM) Bili Total [0.2-1.3 mg/dL] Negative *NA* (02/27/19 3:04 PM) U Cannab Scr [Negative] <0.02 ng/mL (02/28/19 4:27 AM) <0.02 ng/mL (02/27/19 10:22 PM) <0.02 ng/mL (02/27/19 3:04 PM) Troponin-I [0.00-0.40 ng/mL] Negative *NA* (02/27/19 3:04 PM) UA Bili [Negative] Negative (02/27/19 3:04 PM) UA Blood [Negative] Yellow *NA* (02/27/19 3:04 PM) UA Color [Yellow] 500 mg/dL *ABN* (02/27/19 3:04 PM) UA Glucose [Negative mg/dL] 5 /LPF *HI* (02/27/19 3:04 PM) UA Hyal Cast [0-2 /LPF] Negative mg/dL *NA* (02/27/19 3:04 PM) UA Ketones [Negative mg/dL] Negative (02/27/19 3:04 PM) UA Leuk Est [Negative] Negative (02/27/19 3:04 PM) UA Nitrite [Negative] 5.0 (02/27/19 3:04 PM) UA pH [5.0-8.0] Negative mg/dL (02/27/19 3:04 PM) UA Protein [Negative mg/dL] <1 /HPF (02/27/19 3:04 PM) UA RBC [0-2 /HPF] 1.013 (02/27/19 3:04 PM) UA Spec Grav [<=1.030] Many /LPF *ABN* (02/27/19 3:04 PM) UA Sq Epi [Few /LPF] Clear (02/27/19 3:04 PM) UA Turbidity [Clear] <=1.0 mg/dL *NA* (02/27/19 3:04 PM) UA Urobilinogen [0.1-1.0 mg/dL] 1 /HPF (02/27/19 3:04 PM) UA WBC [0-5 /HPF] 12.3 K/CMM *HI* (02/27/19 3:04 PM) WBC [3.7-10.4 K/CMM] 1Result Comment: The eGFR is calculated using [...] be mul tiplied by the estimated BMI. Immunizations No data available for this section Procedures Procedure Date Related Diagnosis Body Site Status Abdominal hysterectomy Completed Eye incision Completed Foot joint operations Completed Placement of stent Completed Procedure Completed Social History Social History [...] Started at age: 15.0; 1 entered on: 02/27/19 1pt smokes 2 packs per day, refuses to quit Assessment and Plan Extracted from: Title: Cardiology History and Author: Tin Ruiz MD Date: 02/28/19 Physical Dejuan Cardiology History and Physical Note Attending: Tin Ruiz MDPhone: Service: Cardiology Code status: Full Code Reason for Admission: ACS Working DRG: Isolation: No Isolation/Standard Precautions Consulting Physicians: Jermaine Thorpe MDOffice: Service: Medicine Chief Complaint: chest pain HPI: 58 yo with hx of CAD s/p PCI to LAD earlier this year and residual [employer]ANCE [employer] of RCA. She presents with point tenderness of left chest wall, pleuritic, started after injury. Saw her at [facility] for same thing several days ago. Review of Systems: 10 point review of system was performed and was negative other than mentioned in HPI. Past Medical History: No qualifying data available Family History: Father: Heart attack Sister: Anxiety; Breast cancer; Depression; Type 2 diabetes mellitus Social History: Alcohol Details: Past, Type Beer. Last use: 35 years ago. Stopped age 22 Years. Previous treatment: None. Tobacco Details: Use: Current every day smoker. Type: Cigarettes. 2 per day. Started age 13.0 Years. Previous treatment: Medications, Nicotine replacement. Ready to change: No. Household tobacco concerns: No. Tobacco smoke exposure: None. Did the Patient Smoke Cigarettes Anytime During the Last 365 Days? Yes. Cessation Counseling Provided? Yes.; Comment(s): pt smokes 2 packs per day, refuses to quit Substance Abuse Details: Use: None. Household substance abuse concerns: No. Exam: VitalsTmp(F)[id number] 02/28 13:46----33564/67-------- 02/28 11:[id number]--- 02/28 07:52 1996--- 02/28 07:2698.383055/60--93--- 02/28 04:[id number]--- 24 Hr Tmax: 98.7F (37.06c) at 02/27 23:04Vital Signs are the last 5 in the past 48 hours. DateWt(kg)Wt(lb)Ht(cm)Ht(in)Method 02/27 (initial)104.00 228.80Estimated 62.56 64.00Stated I/O Intake OutputBalance 02/28/20197a-3p 11.00 0.00 11.00 3p-11p 0.00 0.00 0.00As of 15:29 11p-7a 0.00 0.00 0.00 Totals 11.00 0.00 11.00 02/27/20197a-3p 0.00 0.00 0.00 3p-11p 1.00 0.00 1.00 11p-7a 1.00 0.00 1.00 Totals 2.00 0.00 2.00 02/26/20197a-3p 0.00 0.00 0.00 3p-11p 0.00 0.00 0.00 11p-7a 0.00 0.00 0.00 Totals 0.00 0.00 0.00 Eyes: conjunctivae clear. ENMT: normal mucosa. No pallor or bleeding. Neck: No jugular venous distention. MSK: Normal muscle tone and strength. No atrophy or abnormal movements. Extremities: No clubbing or cyanosis. Skin: No venous stasis changes or ulcers. General: well developed. well nourished. obese. Cardiovascular: PMI non displaced. regular. S1 and S2. No murmurs, rubs or gallops. Normal carotid pulses. Palpable femoral pulses. Palpable pedal pulses. No peripheral edema or varicosities. Respiratory: No respiratory distress. Clear to auscultation bilaterally. Abdomen: soft, non-tender, no masses. No hepato- or splenomegaly. Neuro/Psych: Alert and oriented to person, place and time. Normal affect. Allergies: predniSONE, NSAIDs, iodine, sulfa drugs, aspirin Medications (42) Active Scheduled Meds (): 02/28/19 FLUoxetine (PROzac) 40 mg PO BID 02/28/19 QUEtiapine (SEROquel) 150 mg PO Bedtime 02/28/19 albuterol 2.49 mg NEB RQID 02/28/19 atorvastatin 40 mg PO Bedtime 02/28/19 buPROPion (Wellbutrin) 300 mg PO Daily 02/27/19 budesonide (Pulmicort Respules) 0.25 mg NEB RBID 02/28/19 busPIRone 7.5 mg PO BID 02/28/19 clopidogrel (Plavix) 75 mg PO Q5PM 02/27/19 enoxaparin (Lovenox) 40 mg SUB-Q [id number] 02/28/19 gabapentin 400 mg PO TID 02/27/19 insulin glargine 64 unit SUB-Q Bedtime 0 ml/hr 02/28/19 insulin lispro (Humalog) 7 unit SUB-Q TID-Before Meals 02/28/19 lisinopril 2.5 mg PO Daily 02/28/19 metoprolol (metoprolol extended release) 50 mg PO Daily 02/28/19 mirtazapine (Remeron) 15 mg PO Bedtime 02/28/19 montelukast (Singulair) 10 mg PO Bedtime 02/28/19 nicotine 21 mg TOP Daily 02/28/19 pantoprazole (Protonix) 40 mg PO Before Breakfast 02/27/19 sodium chloride (Saline Flush 0.9%) 10 ml IVP Q12H Unscheduled Meds: None PRN Meds (): 02/27/19 Dextrose 50% in Water IV (Dextrose 50% Syringe) 12.5 gm IVP PRN 02/27/19 Dextrose 50% in Water IV (Dextrose 50% Syringe) 25 gm IVP PRN 02/28/19 acetaminophen-codeine (Tylenol with Codeine #3 oral tablet) 1 tab PO Q4H 02/27/19 acetaminophen 650 mg PO Q4H 02/27/19 albuterol-ipratropium (albuterol-ipratropium 2.5-0.5 mg inhalation solution) 3 mL INHALATION Q6H 02/27/19 clonazePAM 0.5 mg PO BID 02/27/19 glucagon 1 mg IM PRN 02/27/19 insulin lispro 1 unit SUB-Q TID-Before Meals 02/27/19 insulin lispro 2 unit SUB-Q TID-Before Meals 02/27/19 insulin lispro 3 unit SUB-Q TID-Before Meals 02/27/19 insulin lispro 4 unit SUB-Q TID-Before Meals 02/27/19 insulin lispro 5 unit SUB-Q TID-Before Meals 02/27/19 insulin lispro 1 unit SUB-Q Bedtime 02/27/19 insulin lispro 2 unit SUB-Q Bedtime 02/27/19 insulin lispro 3 unit SUB-Q Bedtime 02/27/19 insulin lispro 4 unit SUB-Q Bedtime 02/27/19 nitroglycerin (nitroglycerin SL Tab) 0.4 mg SL Q5Min 02/27/19 ondansetron 4 mg PO Q8H 02/27/19 sodium chloride (Saline Flush 0.9%) 10 ml IVP PRN One Time Meds (4): 02/27/19 (Completed) acetaminophen-hydrocodone ([place] 5/325 oral tablet) 1 tab PO ONCE 02/27/19 (Completed) morphine Sulfate 4 mg IVP ONCE 02/28/19 (Completed) morphine Sulfate 2 mg IVP ONCE 02/27/19 (Completed) ondansetron (Zofran) 4 mg IVP ONCE Continuous Infusions: None Labs (Last four charted values) WBC H 12.3(FEB 27) Hgb L 11.6(FEB 27) Hct L 35.8(FEB 27) Plt 318(FEB 27) Na 142(FEB 27) K 4.8(FEB 27) CO2 27(FEB 27) Cl 107(FEB 27) Cr 1.05(FEB 27) BUN H 23(FEB 27) Glucose Random H 199(FEB 27) Mg L 1.7(FEB 27) Phos 2.8(FEB 27) Ca 9.7(FEB 27) PT 12.4(FEB 27) INR 0.94(FEB 27) Troponin <0.02(FEBRUARY 28)<0.02(FEB 27)<0.02(FEB 27) Total CK 69(FEB 27) Imaging: Reviewed. Assessment: MSK chest pain Plan: -chest pain is non cardiac -ruled out for AMI -ok to discharge home, follow up with pain management doctor for pain medication Extracted from: Title: Hospitalist Consult Note Author: China Landeros MD Date: 02/27/19 58 y/o F with history of CAD, recent NSTEMI s/p PCI to LAD on Plavix, DM, asthma, BLAKE/MDD, chronic pain who presented to the ED complaining of chest pain. Acute chest pain - continue trending cardiac enzymes - monitor on telemetry - SL nitro and morphine prn Recent NSTEMI - continue DAPT T2DM - start SSI - resume home insulin regimen BLAKE/MDD - home medications resumed Thank you for this consult. Please call if you have any questions. China Landeros MD [facility] Hospitalist
--- OUTSIDE RECORDS SUMMARY | 2019-03-07 13:25 | XMS REPORT | Summary of Care ---
Author Author [facility] Organization [facility] Address Unknown Phone Unavailable Encounter MARIAH Hall(JOSE) [id number] Date(s): 06/11/18 - 06/12/18 [facility] [address] [place] [address]- [phone] Encounter Diagnosis Dizziness and giddiness (Final) - 07/06/18 Chest pain, unspecified (Final) - Type 2 diabetes mellitus with hyperglycemia (Final) - Old myocardial infarction (Final) - Abnormal findings on diagnostic imaging of heart and coronary circulation (Final) - Panic disorder [episodic paroxysmal anxiety] (Final) - Type 2 diabetes mellitus with unspecified diabetic retinopathy without macular e monik (Final) - Other [place] [facility] (current) drug therapy (Final) - Type 2 diabetes mellitus with diabetic neuropathy, unspecified (Final) - Tobacco abuse counseling (Final) - Nicotine dependence, cigarettes, uncomplicated (Final) - Body mass index (BMI) 38.0-38.9, adult (Final) - halfway (current) use of insulin (Final) - Obesity, unspecified (Final) - Unspecified asthma, uncomplicated (Final) - Hyperlipidemia, unspecified (Final) - Cerebral ischemia (Final) - Abnormal brain scan (Final) - Personal history of other diseases of the circulatory system (Final) - Allergy status to sulfonamides status (Final) - Allergy status to analgesic agent status (Final) - Personal history of urinary (tract) infections (Final) - Acquired absence of both cervix and uterus (Final) - Family history of ischemic heart disease and other diseases of the circulatory s ystem (Final) - halfway (current) use of antithrombotics/antiplatelets (Final) - Discharge Disposition: Home or Self Care Attending Physician: Jered Sepulveda MD Admitting Physician: Jered Sepulveda MD Vital Signs 1 2 3 Most recent to oldest [Reference Range]: 162.56 cm (8/12/18 7:20 PM) 162.56 cm (06/11/18 2:15 PM) Height 98.3 DegF (06/12/18 5:03 PM) 98.8 DegF (06/12/18 12:46 PM) 98.4 DegF (06/12/18 7:38 AM) Temperature Oral [96.4-99.1 DegF] 109/71 mmHg (06/12/18 5:03 PM) 143/62 mmHg *HI* (06/12/18 12:46 PM) 114/54 mmHg (06/12/18 7:38 AM) Blood Pressure [90-140/60-90 mmHg] 19 BRMIN (06/12/18 5:03 PM) 17 BRMIN (06/12/18 12:46 PM) 18 BRMIN (06/12/18 7:38 AM) Respiratory Rate [14-20 BRMIN] 81 bpm (06/12/18 5:03 PM) 90 bpm (06/12/18 12:46 PM) 78 bpm (06/12/18 7:38 AM) Peripheral Pulse Rate [60-100 bpm] 102.273 kg (06/11/18 7:20 PM) 102.273 kg (06/11/18 2:15 PM) Weight 38.7 m2 (06/11/18 7:20 PM) 38.7 m2 (06/11/18 2:15 PM) Body Mass Index Problem List Condition Effective Dates Status Health Status Informant Type II diabetes Active mellitus poorly controlled(Confirmed ) Allergies, Adverse Reactions, Alerts Substance Reaction Severity Status sulfa drugs Active aspirin Active iodine Active NSAIDs Active Medications *NURSE please bring home med METFORMIN to Pharmacy for label *NURSE please bring home med METFORMIN to Pharmacy for label, 1, Drug form: MISC , Route: MISC, TID, 06/11/18 20:00:00 CDT, Duration: 30 day, Stop date: 07/11/18 15:00:00 CDT Start Date: 06/11/18 Stop Date: 06/12/18 Status: Discontinued Ambien 5 mg, 1 tab, Route: PO, Drug form: TAB, Bedtime, Dosing Weight 102.273, kg, PRN Insomnia, Start date: 06/11/18 21:34:00 CDT, Duration: 30 day, Stop date: 21:33:00 CDT Notes: (Same As: Ambien) Start Date: 06/11/18 Stop Date: 06/12/18 Status: Discontinued busPIRone 7.5 mg, 1.5 tab, Route: PO, Drug form: TAB, BID, Dosing Weight 102.273, kg, Star t date: 06/11/18 21:00:00 CDT, Duration: 30 day, Stop date: 07/11/18 9:00:00 CDT Notes: (Same As: BuSpar) Start Date: 06/11/18 Stop Date: 06/12/18 Status: Discontinued busPIRone 7.5 mg oral tablet 7.5 mg=1 tab, PO, BID, 0 Refill(s) Start Date: 06/11/18 Stop Date: 07/14/18 Status: Deleted clonazePAM 0.5 mg, 1 tab, Route: PO, Drug form: TAB, QID, Dosing Weight 102.273, kg, Start date: 06/11/18 21:00:00 CDT, Duration: 30 day, Stop date: 07/11/18 17:00:00 CDT Notes: (Same As: KlonoPIN) Start Date: 06/11/18 Stop Date: 06/12/18 Status: Discontinued clonazePAM 0.5 mg oral tablet 0.5 mg=1 tab, PO, QID, 0 Refill(s) Start Date: 06/11/18 Status: Ordered FLUoxetine 40 mg, 4 cap, Route: PO, Drug form: CAP, BID, Dosing Weight 102.273, kg, Start d ate: 06/12/18 9:00:00 CDT, Duration: 30 day, Stop date: 07/11/18 17:00:00 CDT Notes: (Same as: Prozac) Start Date: 06/12/18 Stop Date: 06/12/18 Status: Discontinued gabapentin 100 mg oral capsule 200 mg, 2 cap, Route: PO, Drug form: CAP, TID, Dosing Weight 102.273, kg, Start date: 06/11/18 21:00:00 CDT, Duration: 30 day, Stop date: 07/11/18 15:00:00 CDT Notes: (Same as: Neurontin) Start Date: 06/11/18 Stop Date: 06/12/18 Status: Discontinued gabapentin 300 mg oral capsule 300 mg=1 cap, PO, TID, # 90 cap, 0 Refill(s), Pharmacy: [facility] Start Date: 06/12/18 Stop Date: 08/30/18 Status: Discontinued gabapentin 400 mg oral capsule 400 mg=1 cap, PO, TID, 0 Refill(s) Start Date: 06/11/18 Stop Date: 07/14/18 Status: Deleted Humalog 10 unit, 0.1 mL, Route: SUB-Q, Drug form: SOLN, TID-Before Meals, Dosing Weight 102.273, kg, Start date: 06/12/18 7:30:00 CDT, Duration: 30 day, Stop date: 07/01 11/17 16:30:00 CDT Notes: (Same as: Humalog ) Roll in palms of hands gently; Do not shake `vigorou sly. "Single Patient Use Only " WASTE: F/P - Black; E - [employer] [address] able for 28 days at room temperature.Expires in days from Da te Start Date: 06/12/18 Stop Date: 06/12/18 Status: Discontinued Humalog 100 units/mL 10 unit, SUB-Q, TID, 0 Refill(s) Start Date: 06/11/18 Stop Date: 08/31/18 Status: Discontinued insulin detemir 32 unit, Route: SUB-Q, Drug form: SOLN, BID, Dosing Weight 102.273, kg, Start da te: 06/12/18 9:00:00 CDT, Duration: 30 day, Stop date: 07/11/18 17:00:00 CDT Start Date: 06/12/18 Stop Date: 06/11/18 Status: Deleted insulin glargine 60 unit, 0.6 mL, Route: SUB-Q, Drug form: SOLN, Daily, Start date: 06/12/18 9:00 :00 CDT, Duration: 30 day, Stop date: 07/11/18 9:00:00 CDT Notes: (Same as: Lantus)Do not hold insulin without contacting prescriberWASTE: F/P - Black; E - [employer] "single patient use only" Start Date: 06/12/18 Stop Date: 06/12/18 Status: Discontinued Levemir FlexTouch 100 units/mL subcutaneous solution 32 unit, SUB-Q, BID, 0 Refill(s) Start Date: 06/11/18 Stop Date: 08/31/18 Status: Discontinued lisinopril 2.5 mg oral tablet 2.5 mg=1 tab, PO, Daily, 0 Refill(s) Start Date: 06/11/18 Stop Date: 06/12/18 Status: Discontinued metFORMIN 750 mg oral tablet, extended release 750 mg=1 tab, PO, BID, 0 Refill(s) Start Date: 06/11/18 Status: Ordered metFORMIN 750 mg oral tablet, extended release 750 mg, 1 tab, Route: PO, Drug form: ERTAB, BID, Dosing Weight 102.273, kg, Star t date: 06/12/18 9:00:00 CDT, Duration: 30 day, Stop date: 07/11/18 17:00:00 CDT Start Date: 06/12/18 Stop Date: 06/12/18 Status: Discontinued nicotine 7 mg, 1 patch, Route: TOP, Drug form: ERFILM, Q24H, Dosing Weight 102.273, kg, S tart date: 06/11/18 21:00:00 CDT, Duration: 30 day, Stop date: 07/10/18 21:00:00 CDT Start Date: 06/11/18 Stop Date: 06/12/18 Status: Discontinued [place] 5/325 oral tablet 1 tab, Route: PO, Drug Form: TAB, Dosing Weight 102.273, kg, Q6H, PRN Pain Score 1-3, Start date: 06/11/18 21:34:00 CDT, Duration: 30 day, Stop date: 07/11/18 2 1:33:00 CDT Notes: (Same as: [place] 325/5) Do not exceed 4gm/day of acetaminophen. Start Date: 06/11/18 Stop Date: 06/12/18 Status: Discontinued omeprazole 40 mg, Route: PO, Drug form: DRC, Daily, Dosing Weight 102.273, kg, Start date: 06/12/18 9:00:00 CDT, Duration: 30 day, Stop date: 07/11/18 9:00:00 CDT Start Date: 06/12/18 Stop Date: 06/11/18 Status: Deleted Plavix 75 mg, 1 tab, Route: PO, Drug form: TAB, Q5PM, Dosing Weight 102.273, kg, Start date: 06/12/18 17:00:00 CDT, Duration: 30 day, Stop date: 07/11/18 17:00:00 CDT Notes: (Same As: Plavix) Start Date: 06/12/18 Stop Date: 06/12/18 Status: Discontinued Protonix 40 mg, 1 tab, Route: PO, Drug form: ECTAB, Before Breakfast, Start date: 8 7:30:00 CDT, Duration: 30 day, Stop date: 07/11/18 7:30:00 CDT Notes: Tablet should not be chewed or crushed.(Same as: Protonix) Start Date: 06/12/18 Stop Date: 06/12/18 Status: Discontinued SEROquel 100 mg oral tablet 150 mg=1.5 tab, PO, Bedtime, 0 Refill(s) Start Date: 06/11/18 Stop Date: 07/14/18 Status: Deleted Singulair 10 mg, 1 tab, Route: PO, Drug form: TAB, Bedtime, Dosing Weight 102.273, kg, Sta rt date: 06/11/18 21:00:00 CDT, Duration: 30 day, Stop date: 07/10/18 21:00:00 C DT Notes: (Same as:Singulair) Start Date: 06/11/18 Stop Date: 06/12/18 Status: Discontinued Sodium Chloride 0.45% IV 1,000 mL 1,000 mL, Rate: 50 ml/hr, Infuse over: 20 hr, Route: IV, Dosing Weight 102.273 k g, Total Volume: 1,000, Start date: 06/11/18 18:11:00 CDT, Duration: 30 day, Sto p date: 07/11/18 18:10:00 CDT, 2.18, m2 Start Date: 06/11/18 Stop Date: 06/12/18 Status: Discontinued tramadol 50 mg, Route: PO, Drug form: TAB, ONCE, Dosing Weight 102.273, kg, > 50 kg, Priority: STAT, Start date: 06/11/18 17:11:00 CDT, Stop date: 06/11/18 17:11:00 CDT Start Date: 06/11/18 Stop Date: 06/11/18 Status: Completed Tylenol 650 mg, 2 tab, Route: PO, Drug form: TAB, Q6H, Dosing Weight 102.273, kg, PRN Pa in Score 1-3, Start date: 06/11/18 21:34:00 CDT, Duration: 30 day, Stop date: 21:33:00 CDT Notes: Do not exceed 4 gm/day. (Same as: Tylenol) Start Date: 06/11/18 Stop Date: 06/12/18 Status: Discontinued Zofran 4 mg, 2 mL, Route: IVP, Drug form: INJ, Q8H, Dosing Weight 102.273, kg, PRN Naus ea, Start date: 06/12/18 15:25:00 CDT, Duration: 30 day, Stop date: 07/12/18 15: 24:00 CDT Notes: (Same as: Zofran) MEDICATION WASTE Product Size: 4 mgProduct Was anastasia: ___ mg Start Date: 06/12/18 Stop Date: 06/12/18 Status: Discontinued Zofran 4 mg, 2 mL, Route: IV, Drug form: INJ, Q6H, Dosing Weight 102.273, kg, PRN Nause a, Priority: STAT, Start date: 06/11/18 21:25:00 CDT, Duration: 30 day, Stop carol e: 07/11/18 21:24:00 CDT Notes: (Same as: Zofran) MEDICATION WASTE Product Size: 4 mgProduct Was anastasia: ___ mg Start Date: 06/11/18 Stop Date: 06/12/18 Status: Discontinued Zofran 4 mg, 2 mL, Route: IV, Drug form: INJ, Q8H, Dosing Weight 102.273, kg, PRN Nause a, Start date: 06/11/18 21:34:00 CDT, Duration: 30 day, Stop date: 07/11/18 21:3 3:00 CDT Notes: (Same as: Zofran) MEDICATION WASTE Product Size: 4 mgProduct Was anastasia: ___ mg Start Date: 06/11/18 Stop Date: 06/11/18 Status: Deleted Results ELECTROLYTES 1 2 3 Most recent to oldest [Reference Range]: 139 mEq/L (06/11/18 2:44 PM) Sodium Lvl [135-145 mEq/L] 4.7 mEq/L (06/11/18 2:44 PM) Potassium Lvl [3.5-5.1 mEq/L] 103 mEq/L (06/11/18 2:44 PM) Chloride Lvl [95-109 mEq/L] 28 mEq/L (06/11/18 2:44 PM) CO2 [24-32 mEq/L] 12.7 mEq/L (06/11/18 2:44 PM) AGAP [10.0-20.0 mEq/L] CHEM PANEL 1 2 3 Most recent to oldest [Reference Range]: 1.03 mg/dL (06/11/18 2:44 PM) Creatinine Lvl [0.50-1.40 mg/dL] 61 mL/min/1.73m2 1 *NA* (06/11/18 2:44 PM) eGFR 20 mg/dL (06/11/18 2:44 PM) BUN [7-22 mg/dL] 189 mg/dL *HI* (06/11/18 2:44 PM) Glucose Lvl [70-99 mg/dL] 8.9 mg/dL (06/11/18 2:44 PM) Calcium Lvl [8.5-10.5 mg/dL] 1Result Comment: The eGFR is calculated using [...] tiplied by the estimated BMI. CARDIAC ENZYMES 1 2 3 Most recent to oldest [Reference Range]: 38 unit/L (06/12/18 3:17 AM) 50 unit/L (06/11/18 10:11 PM) Total CK [12-191 unit/L] <0.02 ng/mL (06/12/18 3:17 AM) <0.02 ng/mL (06/11/18 10:11 PM) <0.02 ng/mL (06/11/18 2:44 PM) Troponin-I [0.00-0.40 ng/mL] 55 pg/mL (06/11/18 2:44 PM) BNP [<=100 pg/mL] DRUG SCREEN 1 2 3 Most recent to oldest [Reference Range]: Negative *NA* (06/12/18 1:54 PM) U Amph Scr [Negative] Negative *NA* (06/12/18 1:54 PM) U Ciara Scr [Negative] Negative *NA* (06/12/18 1:54 PM) U Benzodiaz Scr [Negative] Negative *NA* (06/12/18 1:54 PM) U Cannab Scr [Negative] Negative *NA* (06/12/18 1:54 PM) U Cocaine Scr [Negative] Positive *ABN* (06/12/18 1:54 PM) U Opiate Scr [Negative] Negative *NA* (06/12/18 1:54 PM) U Phencyclidine Scr [Negative] See Note (06/12/18 1:54 PM) UDS Note URINE AND STOOL 1 2 3 Most recent to oldest [Reference Range]: Clear (06/12/18 1:54 PM) UA Turbidity [Clear] Ltyellow *NA* (06/12/18 1:54 PM) UA Color 6.0 (06/12/18 1:54 PM) UA pH [5.0-8.0] 1.008 (06/12/18 1:54 PM) UA Spec Grav [<=1.030] Negative mg/dL *NA* (06/12/18 1:54 PM) UA Glucose [Negative mg/dL] Negative (06/12/18 1:54 PM) UA Blood [Negative] Negative mg/dL *NA* (06/12/18 1:54 PM) UA Ketones [Negative mg/dL] Negative mg/dL (06/12/18 1:54 PM) UA Protein [Negative mg/dL] <=1.0 mg/dL *NA* (06/12/18 1:54 PM) UA Urobilinogen [0.1-1.0 mg/dL] Negative *NA* (06/12/18 1:54 PM) UA Bili [Negative] Negative (06/12/18 1:54 PM) UA Leuk Est [Negative] Negative (06/12/18 1:54 PM) UA Nitrite [Negative] 1 /HPF (06/12/18 1:54 PM) UA WBC [0-5 /HPF] 1 /HPF (06/12/18 1:54 PM) UA RBC [0-2 /HPF] Occasional /LPF *NA* (06/12/18 1:54 PM) UA Sq Epi [Few /LPF] HEMATOLOGY 1 2 3 Most recent to oldest [Reference Range]: 10.8 K/CMM *HI* (06/11/18 2:44 PM) WBC [3.7-10.4 K/CMM] 4.13 M/CMM *LOW* (06/11/18 2:44 PM) RBC [4.20-5.40 M/CMM] 10.6 g/dL *LOW* (06/11/18 2:44 PM) Hgb [12.0-16.0 g/dL] 32.6 % *LOW* (06/11/18 2:44 PM) Hct [36.0-48.0 %] 79.1 fL *LOW* (06/11/18 2:44 PM) MCV [80.0-98.0 fL] 25.7 pg *LOW* (06/11/18 2:44 PM) MCH [27.0-31.0 pg] 32.6 g/dL (06/11/18 2:44 PM) MCHC [32.0-36.0 g/dL] 19.4 % *HI* (06/11/18 2:44 PM) RDW [11.5-14.5 %] 7.4 fL (06/11/18 2:44 PM) MPV [7.4-10.4 fL] 408 K/CMM (06/11/18 2:44 PM) Platelet [133-450 K/CMM] 68.0 % (06/11/18 2:44 PM) Segs [45.0-75.0 %] 26.0 % (06/11/18 2:44 PM) Lymphocytes [20.0-40.0 %] 4.4 % (06/11/18 2:44 PM) Monocytes [2.0-12.0 %] 1.1 % (06/11/18 2:44 PM) Eosinophils [0.0-4.0 %] 0.5 % (06/11/18 2:44 PM) Basophils [0.0-1.0 %] 7.3 K/CMM (06/11/18 2:44 PM) Neutrophils # [1.5-8.1 K/CMM] 2.8 K/CMM (06/11/18 2:44 PM) Lymphocytes # [1.0-5.5 K/CMM] 0.5 K/CMM (06/11/18 2:44 PM) Monocytes # [0.0-0.8 K/CMM] 0.1 K/CMM (06/11/18 2:44 PM) Eosinophils # [0.0-0.5 K/CMM] 0.1 K/CMM (06/11/18 2:44 PM) Basophils # [0.0-0.2 K/CMM] Immunizations No data available for this section [...] Started [age] age: 15.0; 1 entered on: 08/29/18 1pt smokes 2 packs per day, refuses to quit Assessment and Plan Extracted from: Title: cardiology consultation Author: Tin Ruiz MD Date: 06/12/18 [facility] Consult Note Attending: Jered Sepulveda MDPhone: Service: Internal Medicine Code status: None Specified=FULL CODE Reason for Admission: NEAR SYNCOPE, CHEST PAIN Working DRG: Isolation: No Isolation/Standard Precautions Consulting Physicians: Jered Sepulveda MDOffice: Service: Nephrology Andrea Melton MDOffice: Service: Cardiology Tin Ruiz MDOffice: Service: Cardiology Reason for Consultation: dizziness, presyncope Chief Complaint: I feel dizzy and weak HPI: 58 yo with uncontrolled DM, prior history of ND (self reported), stroke and UTIs who presents from her assisted living facility feeling dizzy and almost passing out. She says that for past several months she has been feeling dizzy when sitting up or standing up and walking. No passing out or LOC. No palpitations. No chest pain. She has uncontrolled DM with neuropathy, retinopathy. Review of Systems: 10 point review of system was performed and was negative other than mentioned in HPI. Past Medical History: DM HLD ND Stroke UTIs Family History: Father: Heart attack Sister: Anxiety; [...] Last 365 Days? Yes. Cessation Counseling Provided? No.; Comment(s): pt smokes 2 packs per day, refuses to quit Substance Abuse Details: Use: None. Household substance abuse concerns: No. Exam: VitalsTmp(F)[id number] 06/12 12:[id number]--- 06/12 07:[id number]--- 06/12 03:[id number]--- 06/11 23:[id number]--- 06/11 17:[id number]--- 24 Hr Tmax: 98.8F (37.11c) at 06/12 12:46Vital Signs are the last 5 in the past 48 hours. DateWt(kg)Wt(lb)Ht(cm)Ht(in)Method 06/11 (initial)102.27 225.00Estimated 62.56 64.00Stated Eyes: conjunctivae clear. ENMT: normal mucosa. No pallor or bleeding. Neck: cannot assess jugular venous distention. MSK: Normal muscle tone and strength. No atrophy or abnormal movements. Extremities: No clubbing or cyanosis. Skin: No venous stasis changes or ulcers. General: well developed. well nourished. obese. Cardiovascular: difficult exam due to body habitus. regular. S1 and S2. No murmurs, rubs or gallops. Normal carotid pulses. Palpable femoral pulses. Palpable pedal pulses. No peripheral edema or varicosities. Respiratory: No respiratory distress. Clear to auscultation bilaterally. Abdomen: soft, non-tender, no masses. No hepato- or splenomegaly. Neuro/Psych: Alert and oriented to person, place and time. Normal affect. Allergies: NSAIDs, iodine, sulfa drugs, aspirin Medications (18) Active Scheduled Meds (): 06/12/18 FLUoxetine 40 mg PO BID 06/11/18 busPIRone 7.5 mg PO BID 06/11/18 clonazePAM 0.5 mg PO QID 06/12/18 clopidogrel (Plavix) 75 mg PO Q5PM 06/11/18 gabapentin (gabapentin 100 mg oral capsule) 200 mg PO TID 06/12/18 insulin glargine 60 unit SUB-Q Daily 0 ml/hr 06/12/18 insulin lispro (Humalog) 10 unit SUB-Q TID-Before Meals 06/12/18 metFORMIN (metFORMIN 750 mg oral tablet, extended release) 750 mg PO BID 06/11/18 montelukast (Singulair) 10 mg PO Bedtime 06/11/18 nicotine 7 mg TOP Q24H 06/11/18 non-formulary (*NURSE please bring home med METFORMIN to Pharmacy for label) MISC TID 06/12/18 pantoprazole (Protonix) 40 mg PO Before Breakfast Unscheduled Meds: None PRN Meds (4): 06/11/18 acetaminophen-hydrocodone ([place] 5/325 oral tablet) 1 tab PO Q6H 06/11/18 acetaminophen (Tylenol) 650 mg PO Q6H 06/12/18 ondansetron (Zofran) 4 mg IVP Q8H 06/11/18 zolpidem (Ambien) 5 mg PO Bedtime One Time Meds (1): 06/11/18 (Completed) tramadol 50 mg PO ONCE Continuous Infusions (1): 06/11/18 Sodium Chloride 0.45% IV 1,000 mL 1,000 mL 50 ml/hr Labs (Last four charted values) WBC H 10.8(JUN 11) Hgb L 10.6(JUN 11) Hct L 32.6(JUN 11) Plt 408(JUN 11) Na 139(JUN 11) K 4.7(JUN 11) CO2 28(JUN 11) Cl 103(JUN 11) Cr 1.03(JUN 11) BUN 20(JUN 11) Glucose Random H 189(JUN 11) Ca 8.9(JUN 11) Troponin <0.02(JUN 12)<0.02(JUN 11)<0.02(JUN 11) Total CK 38(JUN 12)50(JUN 11) Imaging: Reviewed. ECG: NSR. Echo: EF 50-55%. No valvular abnormalities. Stress: none Cath: none Assessment: 1. Chest pain, unspecified (R07.9) 2. Dizziness Plan: -ECHO normal -cardiac enzymes normal, ND ruled out -NSR on telemetry -please get orthostatic VSs -recommend compression stockings -gentle rehydration Thank you for involving us in this patient's care.
--- OUTSIDE RECORDS SUMMARY | 2019-03-07 13:25 | XMS REPORT | Summary of Care ---
Author Author [facility] Organization [facility] Address Unknown Phone Unavailable Encounter MARIAH Hall(JOSE) [phone] Date(s): 07/17/18 - 07/17/18 [facility] [id number] [id number]- Encounter Diagnosis Primary open-angle glaucoma, right eye, stage unspecified (Final) - 09/29/18 Hypertensive chronic kidney disease with stage 1 through stage 4 chronic kidney disease, or unspecified chronic kidney disease (Final) - Type 2 diabetes mellitus with diabetic chronic kidney disease (Final) - Chronic kidney disease, stage 2 (mild) (Final) - Chronic obstructive pulmonary disease, unspecified (Final) - Old myocardial infarction (Final) - Nicotine dependence, cigarettes, uncomplicated (Final) - Hyperlipidemia, unspecified (Final) - Anxiety disorder, unspecified (Final) - Obesity, unspecified (Final) - 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 (Final) - assisted (current) use of aspirin (Final) - Body mass index (BMI) 36.0-36.9, adult (Final) - Discharge Disposition: Home or Self Care Attending Physician: Andrea Samuel MD Referring Physician: Andrea Samuel MD Vital Signs Most recent to 1 2 oldest [Reference Range]: Height 162.56 cm (07/14/18 10:34 AM) Blood Pressure 140/62 mmHg 148/78 mmHg [90-140/60-90 mmHg] (07/17/18 11:46 AM) *HI* (07/17/18 8:00 AM) Respiratory Rate 16 BRMIN 16 BRMIN [14-20 BRMIN] (07/17/18 11:46 AM) (07/17/18 8:00 AM) Peripheral Pulse 87 bpm 96 bpm Rate [60-100 bpm] (07/17/18 11:46 AM) (07/17/18 8:00 AM) Weight 97.727 kg (07/14/18 10:34 AM) Body Mass Index 36.98 m2 (07/14/18 10:34 AM) Problem List Condition Effective Dates Status Health Status Informant Type II diabetes Active mellitus poorly controlled(Confirmed ) Allergies, Adverse Reactions, Alerts Substance Reaction Severity Status sulfa drugs Active predniSONE Active aspirin Active iodine Active NSAIDs Active Medications alfentanil (ANES) Route: IV, Drug form: INJ, ONCE, Stop date: 07/17/18 10:56:00 CDT Start Date: 07/17/18 Stop Date: 07/17/18 Status: Completed midazolam (ANES) Route: IV, Drug form: SOLN, ONCE, Stop date: 07/17/18 10:46:00 CDT Start Date: 07/17/18 Stop Date: 07/17/18 Status: Completed Sodium Chloride 0.9% IV (ANES) 1000 mL Route: IV, Total Volume: 1,000, Start date: 07/17/18 10:08:00 CDT, Stop date: 11:08:00 CDT Start Date: 07/17/18 Stop Date: 07/17/18 Status: Completed trazodone 20 mg, PO, Bedtime, 0 Refill(s) Start Date: 07/14/18 Stop Date: 08/30/18 Status: Discontinued Results No data available for this section [...] day, refuses to quit Assessment and Plan No data available for this section
[2019-03-07] MEDS ORDERED: SODIUM CHLORIDE 0.9% 1000ML 1,000 ML IV ONE ×2 (13:45→14:00)
[2019-03-07] MEDS ORDERED: INSULIN REGULAR, HUMAN 100 UNIT/1 ML 3ML VIAL IV ONE (13:45)
[2019-03-07 14:08] LABS: BASOPHILS # (AUTO) 0.1 (0.0-0.1); BASOPHILS % 0.6 % (0.0-1.0); EOSINOPHILS # (AUTO) 0.1 (0.0-0.4); EOSINOPHILS % 1.4 % (0.0-6.0); HEMATOCRIT 36.2 % (34.2-44.1); HEMOGLOBIN 10.9 g/dL (12.0-16.0); LYMPHOCYTES # (AUTO) 2.4 (1.0-3.2); LYMPHOCYTES % 25.9 % (18.0-39.1); MEAN CORPUSCULAR HEMOGLOBIN 25.8 pg (28-32); MEAN CORPUSCULAR HGB CONC 30.1 g/dL (31-35); MEAN CORPUSCULAR VOLUME 85.8 fL (81-99); MONOCYTES # (AUTO) 0.5 (0.2-0.8); MONOCYTES % 4.8 % (4.4-11.3); NEUTROPHILS # (AUTO) 6.2 (2.1-6.9); PLATELET COUNT 381 x10e3/uL (140-360); RED BLOOD COUNT 4.22 x10e6/uL (3.6-5.1); RED CELL DISTRIBUTION WIDTH 16.6 % (11.7-14.4)
[2019-03-07 14:19] LABS: ALBUMIN 3.3 g/dL (3.5-5.0); ALBUMIN/GLOBULIN RATIO 0.9 (0.8-2.0); ANION GAP 15.2 mmol/L (8-16); CALCIUM 9.6 mg/dL (8.4-10.2); CREATININE, SERUM 1.3 mg/dL (0.57-1.11); POTASSIUM 4.2 mmol/L (3.5-5.1)
[2019-03-07 15:00] LABS: BILIRUBIN,URINE NEGATIVE (NEGATIVE); CLARITY,URINE CLEAR (CLEAR); COLOR,URINE YELLOW (YELLOW); KETONES,URINE NEGATIVE (NEGATIVE); LEUKOCYTE ESTERASE ,URINE NEGATIVE (NEGATIVE); NITRITE,URINE NEGATIVE (NEGATIVE); PROTEIN,URINE DIPSTICK NEGATIVE (NEGATIVE); URINE UROBILINOGEN 0.2 mg/dL (0.2 - 1)
[2019-03-07 15:24] LABS: BACTERIA,URINE MODERATE /HPF; EPITHELIAL CELLS,URINE MODERATE /LPF
[2019-03-07] MEDS ORDERED: ACETAMINOPHEN 325 MG TAB ONE (15:40)
[2019-03-07] MEDS ORDERED: ACETAMINOPHEN 325 MG TAB PO ONE (15:45)
[2019-03-07 16:22] VITALS: BP 120/71
== END 2019-03-07 16:24 | disposition home or self-care (01) ==
LOC: ER 13:20
DX: E11.65 Type 2 diabetes mellitus with hyperglycemia (principal); I10 Essential (primary) hypertension; F41.9 Anxiety disorder, unspecified; F32.9 Major depressive disorder, single episode, unspecified; K21.9 Gastro-esophageal reflux disease without esophagitis; Z95.5 Presence of coronary angioplasty implant and graft
CPT/HCPCS: 36415; 80053; 81001; 82948; 85025; 87086; 99283; J1817; J7030

== ENCOUNTER 2019-03-15 15:49 | Emergency (ER) | payer MEDICARE, OTHER ==
[~2019-03-15] VITALS: Ht 162.6 cm; Wt 108.4 kg
--- OUTSIDE RECORDS SUMMARY | 2019-03-15 15:53 | XMS REPORT | Continuity of Care Document ---
Author Author [facility] Interface Address Unknown Phone Unavailable Problems Problem Status Onset Date Classification Date Reported Comments Source COPD Active 02/27/2019 [facility] ACS Active 02/27/2019 [facility] WEAKNESS Active 02/02/2019 [facility] ALTERED MENTAL STATUS, NSTEMI Active 02/02/2019 [facility] Primary open-angle glaucoma, right eye, stage unspecified 09/30/2018 02/03/2019 [facility] ACUTE UTI, SEPSIS Active 08/29/2018 [facility] ACUTE UTI, SEPSIS Active 08/29/2018 [facility] SOB Active 08/29/2018 [facility] GALUCOMA Active 07/13/2018 [facility] Dizziness and giddiness 07/07/2018 12/30/2018 [facility] NEAR SYNCOPE, CHEST PAIN Active 06/11/2018 [facility] Type 2 diabetes mellitus with hypoglycemia without coma 11/23/2017 02/23/2018 [facility] HYPOGLYCEMIA ASSOCIATED WITH DIABETES Active 11/16/2017 [facility] HYPOGLYCEMIA Active 11/16/2017 [facility] HYPOGLYCEMIA ASSOCIATED WITH DIABETES Active 11/16/2017 [facility] D47.3 - ESSENTIAL (HEMORRHAGIC) THROMB D Active 12/06/2016 [facility] D72.829 - ELEVATED WHITE BLOOD CELL COUN Active 10/11/2016 [facility] M54.5 - LOW BACK PAIN Active 12/22/2015 [facility] [place] Type 2 diabetes mellitus with diabetic polyneuropathy 02/23/2018 [facility] Unspecified asthma, uncomplicated 12/30/2018 [facility] Major depressive disorder, single episode, unspecified 02/23/2018 [facility] Gastro-esophageal reflux disease without esophagitis 02/23/2018 [facility] Insomnia, unspecified 02/23/2018 [facility] Hypomagnesemia 02/23/2018 [facility] Other half-way drug therapy 12/30/2018 [facility] Hypertensive chronic kidney disease with stage 1 through stage 4 chronic kidney disease, or unspecified chronic kidney disease 02/03/2019 [facility] Type 2 diabetes mellitus with diabetic chronic kidney disease 02/03/2019 [facility] Chronic kidney disease, stage 2 02/03/2019 [facility] Chronic obstructive pulmonary disease, unspecified 02/03/2019 [facility] Old myocardial infarction 02/03/2019 [facility] Nicotine dependence, cigarettes, uncomplicated 02/03/2019 [facility] Hyperlipidemia, unspecified 02/03/2019 [facility] Anxiety disorder, unspecified 02/03/2019 [facility] Obesity, unspecified 02/03/2019 [facility] long term acute care registered nurse use of insulin 02/03/2019 [facility] long term acute care registered nurse use of aspirin 02/03/2019 [facility] Body mass index 36.0-36.9, adult 02/03/2019 [facility] Type II diabetes mellitus poorly controlled Active Problem 03/02/2019 [facility] Chest pain, unspecified 12/30/2018 [facility] Type 2 diabetes mellitus with hyperglycemia 12/30/2018 [facility] Abnormal findings on diagnostic imaging of heart and coronary circulation 12/30/2018 [facility] Panic disorder [episodic paroxysmal anxiety] 12/30/2018 [facility] Type 2 diabetes mellitus with unspecified diabetic retinopathy without macular edema 12/30/2018 [facility] Type 2 diabetes mellitus with diabetic neuropathy, unspecified 12/30/2018 [facility] Tobacco abuse counseling 12/30/2018 [facility] Body mass index 38.0-38.9, adult 12/30/2018 [facility] Cerebral ischemia 12/30/2018 [facility] Abnormal brain scan 12/30/2018 [facility] Personal history of other diseases of the circulatory system 12/30/2018 [facility] Allergy status to sulfonamides status 12/30/2018 [facility] Allergy status to analgesic agent status 12/30/2018 [facility] Personal history of urinary infections 12/30/2018 [facility] Acquired absence of both cervix and uterus 12/30/2018 [facility] Family history of ischemic heart disease and other diseases of the circulatory system 12/30/2018 [facility] intermediate use of antithrombotics/antiplatelets 12/30/2018 [facility] TYPE 2 DIABETES MELLITUS WITH HYPOGLYCEM Active [facility] URINARY TRACT INFECTION, SITE NOT SPECIF Active [facility] SEPSIS, UNSPECIFIED ORGANISM Active [facility] ALTERED MENTAL STATUS, UNSPECIFIED Active [facility] NON-ST ELEVATION (NSTEMI) MYOCARDIAL INF Active [facility] SYNCOPE AND COLLAPSE Active [facility] CHEST PAIN, UNSPECIFIED Active [facility] Medications Medication Details Route Status Patient Instructions Ordering Provider Order Date Source Seroquel 150 mg, 3 tab, Route: PO, Drug form: TAB, Bedtime, Dosing Weight 104.545, kg, Start date: 02/28/19 21:00:00 CDT, Duration: 30 day, Stop date: 03/29/19 21:00:00 CDTNotes: (Same as: SEROquel) Inactive 03/01/2019 [facility] Singulair 10 mg, 1 tab, Route: PO, Drug form: TAB, Bedtime, Dosing Weight 104.545, kg, Start date: 02/28/19 21:00:00 CDT, Duration: 30 day, Stop date: 03/29/19 21:00:00 CDTNotes: (Same as:Singulair) Inactive 03/01/2019 [facility] Remeron 15 mg, 1 tab, Route: PO, Drug form: TAB, Bedtime, Dosing Weight 104.545, kg, Start date: 02/28/19 21:00:00 CDT, Duration: 30 day, Stop date: 03/29/19 21:00:00 CDTNotes: (Same as:Remeron) Inactive 03/01/2019 [facility] atorvastatin 40 mg, 1 tab, Route: PO, Drug form: TAB, Bedtime, Dosing Weight 104.545, kg, Start date: 02/28/19 21:00:00 CDT, Duration: 30 day, Stop date: 03/29/19 21:00:00 CDTNotes: (Same as: Lipitor) Inactive 03/01/2019 [facility] Plavix 75 mg, 1 tab, Route: PO, Drug form: TAB, Q5PM, Dosing Weight 104.545, kg, Start date: 02/28/19 17:00:00 CDT, Duration: 30 day, Stop date: 03/29/19 17:00:00 CDTNotes: (Same As: Plavix) Inactive 02/28/2019 [facility] Morphine 2 mg, 1 mL, Route: IVP, Drug form: SOLN, ONCE, Dosing Weight 104.545, kg, Start date: 02/28/19 13:34:00 CDT, Stop date: 02/28/19 13:34:00 CDT Inactive 02/28/2019 [facility] Acetaminophen 300 MG / Codeine Phosphate 30 MG Oral Tablet [Tylenol with Codeine #3] 1 tab, Route: PO, Drug Form: TAB, Dosing Weight 104.545, kg, Q4H, PRN Pain Score 6-10, Start date: 02/28/19 13:15:00 CDT, Duration: 30 day, Stop date: 03/30/19 13:14:00 CDTNotes: Do not exceed 4gm/day of acetaminophen. (Same as: Tylenol with Codeine # 3) Inactive 02/28/2019 [facility] Omeprazole 40 mg, Route: PO, Drug form: DRC, Daily, Dosing Weight 104.545, kg, Start date: 02/28/19 9:00:00 CDT, Duration: 30 day, Stop date: 03/29/19 9:00:00 CDT No Longer Active 02/28/2019 [facility] Nicotine 21 mg, 1 patch, Route: TOP, Drug form: ERFILM, Daily, Dosing Weight 104.545, kg, Start date: 02/28/19 9:00:00 CDT, Duration: 30 day, Stop date: 03/29/19 9:00:00 CDTNotes: (Same as: Habitrol) "Remove old patch before application of new patch" WASTE: F/P - P Waste Black; E - P Waste Black Inactive 02/28/2019 [facility] metoprolol extended release 50 mg, 1 tab, Route: PO, Drug form: ERTAB, Daily, Start date: 02/28/19 9:00:00 CDT, Duration: 30 day, Stop date: 03/29/19 9:00:00 CDTNotes: (Same as: Toprol XL) May split tab, but do not crush. Inactive 02/28/2019 [facility] Lisinopril 2.5 mg, 0.5 tab, Route: PO, Drug form: TAB, Daily, Dosing Weight 104.545, kg, Start date: 02/28/19 9:00:00 CDT, Duration: 30 day, Stop date: 03/29/19 9:00:00 CDTNotes: (Same as: Prinivil, Zestril) Inactive 02/28/2019 [facility] insulin detemir 32 unit, Route: SUB-Q, Drug form: SOLN, BID, Dosing Weight 104.545, kg, Start date: 02/28/19 9:00:00 CDT, Duration: 30 day, Stop date: 03/29/19 17:00:00 CDT No Longer Active 02/28/2019 [facility] gabapentin 400 mg, 1 cap, Route: PO, Drug form: CAP, TID, Dosing Weight 104.545, kg, Start date: 02/28/19 9:00:00 CDT, Duration: 30 day, Stop date: 03/29/19 17:00:00 CDTNotes: (Same as: Neurontin) Inactive 02/28/2019 [facility] Advair Diskus 100 mcg-50 mcg inhalation powder 1 puff, Route: INHALATION, Drug Form: PWDR, Dosing Weight 104.545, kg, BID, Start date: 02/28/19 9:00:00 CDT, Duration: 30 day, Stop date: 03/29/19 17:00:00 CDT No Longer Active 02/28/2019 [facility] Prozac 40 mg, 4 cap, Route: PO, Drug form: CAP, BID, Dosing Weight 104.545, kg, Start date: 02/28/19 9:00:00 CDT, Duration: 30 day, Stop date: 03/29/19 17:00:00 CDTNotes: (Same as: Prozac) Inactive 02/28/2019 [facility] Buspirone 7.5 mg, 1.5 tab, Route: PO, Drug form: TAB, BID, Dosing Weight 104.545, kg, Start date: 02/28/19 9:00:00 CDT, Duration: 30 day, Stop date: 03/29/19 17:00:00 CDTNotes: (Same As: BuSpar) Inactive 02/28/2019 [facility] Wellbutrin 300 mg, 3 tab, Route: PO, Drug form: TAB, Daily, Dosing Weight 104.545, kg, Start date: 02/28/19 9:00:00 CDT, Duration: 30 day, Stop date: 03/29/19 9:00:00 CDTNotes: (Same As: Wellbutrin) Inactive 02/28/2019 [facility] Protonix 40 mg, 1 tab, Route: PO, Drug form: ECTAB, Before Breakfast, Start date: 02/28/19 7:30:00 CDT, Duration: 30 day, Stop date: 03/29/19 7:30:00 CDTNotes: Tablet should not be chewed or crushed. (Same as: Protonix) Inactive 02/28/2019 [facility] NovoLog Route: SUB-Q, Drug form: SOLN, TID-Before Meals, Dosing Weight 104.545, kg, Start date: 02/28/19 7:30:00 CDT, Duration: 30 day, Stop date: 03/29/19 16:30:00 CDT No Longer Active 02/28/2019 [facility] Humalog 7 unit, 0.07 mL, Route: SUB-Q, Drug form: SOLN, TID-Before Meals, Start date: 02/28/19 7:30:00 CDT, Duration: 30 day, Stop date: 03/29/19 16:30:00 CDTNotes: (Same as: Humalog) Roll in palms of hands gen tly; Do not shake vigorously. WASTE: F/P - Black; E - Municipal Trash Bin Stable for 28 days at room temperature. Expires in days from Date Inactive 02/28/2019 [facility] albuterol 2.49 mg, 3 mL, Route: NEB, Drug form: SOLN, RQID, Start date: 02/28/19 7:00:00 CDT, Duration: 30 day, Stop date: 03/29/19 19:00:00 CDTNotes: SEE RT DOCUMENTATION (Same as: Proventil) Inactive 02/28/2019 [facility] insulin glargine 64 unit, 0.64 mL, [...] days from Date No Longer Active 02/28/2019 [facility] Pulmicort Respules 0.25 mg, 2 mL, Route: NEB, Drug form: SUSP, RBID, Start date: 02/27/19 22:07:00 CDT, Duration: 30 day, Stop date: 03/29/19 20:00:00 CDTNotes: (Same As: Pulmicort respule). No Longer Active 02/28/2019 [facility] Clonazepam 0.5 mg, 1 tab, Route: PO, Drug form: TAB, BID, Dosing Weight 104.545, kg, PRN Anxiety, Start date: 02/27/19 21:51:00 CDT, Duration: 30 day, Stop date: 03/29/19 21:50:00 CDTNotes: (Same As: KlonoPIN) No Longer Active 02/28/2019 [facility] Albuterol 0.833 MG/ML / Ipratropium [place] 0.167 MG/ML Inhalant Solution 3 mL, Route: INHALATION, Drug Form: SOLN, Dosing Weight 104.545, kg, Q6H, PRN Wheezing, Start date: 02/27/19 21:51:00 CDT, Duration: 30 day, Stop date: 03/29/19 21:50:00 CDTNotes: (Same as: Duoneb) No Longer Active 02/28/2019 [facility] Insulin Lispro 4 unit, 0.04 mL, [...] days from Date No Longer Active 02/28/2019 [facility] Dextrose 50% Syringe 12.5 gm, 25 mL, Route: IVP, Drug Form: INJ, Dosing Weight 104.545, kg, PRN, PRN Blood Glucose Results, Start date: 02/27/19 21:51:00 CDT, Duration: 30 day, Stop date: 03/29/19 21:50:00 CDT No Longer Active 02/28/2019 [facility] Glucagon 1 mg, Route: IM, Drug form: PDR/INJ, PRN, Dosing Weight 104.545, kg, PRN Blood Glucose Results, Start date: 02/27/19 21:51:00 CDT, Duration: 30 day, Stop date: 03/29/19 21:50:00 CDT No Longer Active 02/28/2019 [facility] Saline Flush 0.9% 10 ml, Route: IVP, Drug Form: INJ, Dosing Weight 104, kg, Q12H, Start date: 02/27/19 21:00:00 CDT, Duration: 30 day, Stop date: 03/29/19 9:00:00 CDTNotes: (Same as: BD Posiflush) No Longer Active 02/28/2019 [facility] Lovenox 40 mg, 0.4 mL, Route: SUB-Q, Drug form: INJ, [id number], Dosing Weight 104, kg, Start date: 02/27/19 20:00:00 CDT, Duration: 30 day, Stop date: 03/28/19 20:00:00 CDTNotes: (Same as: Lovenox) No Longer Active 02/28/2019 [facility] Saline Flush 0.9% 10 ml, Route: IVP, Drug Form: INJ, Dosing Weight 104, kg, PRN, PRN Line Flush, Start date: 02/27/19 19:44:00 CDT, Duration: 30 day, Stop date: 03/29/19 19:43:00 CDTNotes: (Same as: BD Posiflush) No Longer Active 02/28/2019 [facility] Ondansetron 4 mg, 1 tab, Route: PO, Drug form: TAB, Q8H, Dosing Weight 104, kg, PRN Nausea & Vomiting, Start date: 02/27/19 19:44:00 CDT, Duration: 30 day, Stop date: 03/29/19 19:43:00 CDTNotes: (Same as: Zofran) No Longer Active 02/28/2019 [facility] Acetaminophen 650 mg, 2 tab, Route: PO, Drug form: TAB, Q4H, Dosing Weight 104, kg, PRN Pain Score 1-5, Start date: 02/27/19 19:44:00 CDT, Duration: 30 day, Stop date: 03/29/19 19:43:00 CDTNotes: Do not exceed 4 g m/day. (Same as: Tylenol) No Longer Active 02/28/2019 [facility] Morphine 2 mg, 0.5 mL, Route: IVP, Drug form: SOLN, Q15Min, Dosing Weight 104, kg, PRN Chest Pain, Start date: 02/27/19 19:44:00 CDT, Duration: 2 doses or times, Stop date: Limited # of timesNotes: (Same as:M ORPhine Sulfate) No Longer Active 02/28/2019 [facility] Nitroglycerin 0.4 mg, 1 tab, Route: SL, Drug form: TAB, Q5Min, Dosing Weight 104, kg, PRN Chest Pain, Start date: 02/27/19 19:44:00 CDT, Duration: 3 doses or times, Stop date: Limited # of timesNotes: (Same as:Nitroquick, Nitrostat) "Do Not Crush" Sublingual tablet No Longer Active 02/28/2019 [facility] Morphine 4 mg, Route: IVP, ONCE, Dosing Weight 104, kg, Priority: STAT, Start date: 02/27/19 18:17:00 CDT, Stop date: 02/27/19 18:17:00 CDT Inactive 02/27/2019 [facility] Zofran 4 mg, Route: IVP, Drug form: INJ, ONCE, Dosing Weight 104, kg, Priority: STAT, Start date: 02/27/19 16:01:00 CDT, Stop date: 02/27/19 16:01:00 CDT Inactive 02/27/2019 [facility] Acetaminophen 325 MG / Hydrocodone Bitartrate 5 MG Oral Tablet [[place] 5/325] 1 tab, Route: PO, Drug Form: TAB, Dosing Weight 104, kg, ONCE, STAT, Start date: 02/27/19 16:00:00 CDT, Stop date: 02/27/19 16:00:00 CDT Inactive 02/27/2019 [facility] metoprolol 50 mg oral tablet, extended release 50 mg=1 tab, PO, Daily, # 30 tab, 0 Refill(s), Pharmacy: [facility] Active 02/06/2019 [facility] atorvastatin 40 mg oral tablet 40 mg=1 tab, PO, Bedtime, # 30 tab, 0 Refill(s), Pharmacy: [facility] Active 02/06/2019 [facility] Aspirin 81 MG Enteric Coated Tablet 81 mg=1 tab, PO, Daily, 0 Refill(s) Active 02/06/2019 [facility] Aspirin 81 MG Enteric Coated Tablet 81 mg, 1 tab, Route: PO, Drug form: ECTAB, Daily, Dosing Weight 99.091, kg, Start date: 02/06/19 9:00:00 CDT, Duration: 30 day, Stop date: 03/07/19 9:00:00 CDTNotes: Do not crush or chew. (Same As: Ecotrin) Inactive 02/06/2019 [facility] Insulin Lispro 1 unit, 0.01 mL, [...] days from Date No Longer Active 02/06/2019 [facility] atorvastatin 80 mg, Route: PO, Drug form: TAB, Bedtime, Dosing Weight 99.091, kg, Start date: 02/05/19 21:00:00 CDT, Duration: 30 day, Stop date: 03/06/19 21:00:00 CDT Inactive 02/06/2019 [facility] Nitroglycerin 0.4 mg, 1 tab, Route: SL, Drug form: TAB, Q5Min, Dosing Weight 99.091, kg, PRN Chest Pain, Start date: 02/05/19 14:59:00 CDT, Duration: 3 doses or times, Stop date: Limited # of timesNotes: (Same as: Nitroquick, Nitrostat) "Do Not Crush" Sublingual tablet No Longer Active 02/05/2019 [facility] Sodium Chloride 0.9% IV 1,000 mL 1,000 mL, Rate: 100 ml/hr, Infuse over: 10 hr, Route: IV, Dosing Weight 99.091 kg, Total Volume: 1,000, Start date: 02/05/19 14:59:00 CDT, Duration: 12 hr, Stop date: 02/06/19 2:58:00 CDT, 2.15, m2 No Longer Active 02/05/2019 [facility] Famotidine 20 mg, 2 mL, Route: IVP, Drug form: INJ, ONCE, Dosing Weight 99.091, kg, Start date: 02/05/19 12:32:00 CDT, Stop date: 02/05/19 12:32:00 CDTNotes: (Same as: Pepcid) Can be dilute in 5-10cc NS IVP: S low IV push over at least 2 minutes. Inactive 02/05/2019 [facility] Diphenhydramine 50 mg, 1 mL, Route: IVP, Drug form: INJ, ONCE, Dosing Weight 99.091, kg, Start date: 02/05/19 12:32:00 CDT, Stop date: 02/05/19 12:32:00 CDTNotes: (Same as: Benadryl) Inactive 02/05/2019 [facility] methylPREDNISolone SODium SUCCinate 125 mg, 2 mL, Route: IVP, Drug form: INJ, ONCE, Dosing Weight 99.091, kg, Start date: 02/05/19 12:32:00 CDT, Stop date: 02/05/19 12:32:00 CDTNotes: (Same as:Solu-MEDROL, A- Methapred) Inactive 02/05/2019 [facility] normal saline 0.9% IV 1,000 mL 1,000 mL, Rate: 75 ml/hr, Infuse over: 13.3 hr, Route: IV, Dosing Weight 99.091 kg, Total Volume: 1,000, Start date: 02/05/19 11:50:00 CDT, Duration: 30 day, Stop date: 03/07/19 11:49:00 CDT, 2.15, m2 Inactive 02/05/2019 [facility] Flexeril 5 mg, 0.5 tab, Route: PO, Drug form: TAB, TID, Dosing Weight 99.091, kg, PRN Spasm, Start date: 02/05/19 9:52:00 CDT, Duration: 30 day, Stop date: 03/07/19 9:51:00 CDTNotes: (Same As: Flexeril) No Longer Active 02/05/2019 [facility] Dextrose 50% Syringe 12.5 gm, 25 mL, Route: IVP, Drug Form: INJ, Dosing Weight 99.091, kg, PRN, PRN Blood Glucose Results, Start date: 02/04/19 17:14:00 CDT, Duration: 30 day, Stop date: 03/06/19 17:13:00 CDT No Longer Active 02/04/2019 [facility] Glucagon 1 mg, Route: IM, Drug form: PDR/INJ, PRN, Dosing Weight 99.091, kg, PRN Blood Glucose Results, Start date: 02/04/19 17:14:00 CDT, Duration: 30 day, Stop date: 03/06/19 17:13:00 CDT No Longer Active 02/04/2019 [facility] Insulin Lispro 10 unit, 0.1 mL, [...] days from Date No Longer Active 02/04/2019 [facility] Humalog 15 unit, 0.15 mL, Route: [...] Expires in days from Date Inactive 02/04/2019 [facility] metoprolol extended release 50 mg, 1 tab, Route: PO, Drug form: ERTAB, Daily, Start date: 02/04/19 9:00:00 CDT, Duration: 30 day, Stop date: 03/05/19 9:00:00 CDTNotes: (Same as: Toprol XL) May split tab, but do not crush. No Longer Active 02/04/2019 [facility] Clonazepam 0.5 mg, 1 tab, Route: PO, Drug form: TAB, BID, Dosing Weight 99.091, kg, PRN Anxiety, Start date: 02/03/19 21:21:00 CDT, Duration: 30 day, Stop date: 03/05/19 21:20:00 CDTNotes: (Same As: KlonoPIN) No Longer Active 02/04/2019 [facility] Humalog 15 unit, 0.15 mL, Route: [...] Expires in days from Date Inactive 02/04/2019 [facility] normal saline 0.9% IV 1,000 mL 1,000 mL, Rate: 125 ml/hr, Infuse over: 8 hr, Route: IV, Dosing Weight 99.091 kg, Total Volume: 1,000, Start date: 02/03/19 21:02:00 CDT, Duration: 30 day, Stop date: 03/05/19 21:01:00 CDT, 2.15, m2 No Longer Active 02/04/2019 [facility] atorvastatin 80 mg, 2 tab, Route: PO, Drug form: TAB, Bedtime, Dosing Weight 99.091, kg, Start date: 02/03/19 21:00:00 CDT, Duration: 30 day, Stop date: 03/04/19 21:00:00 CDTNotes: (Same as: Lipitor) No Longer Active 02/04/2019 [facility] Remeron 15 mg, 1 tab, Route: PO, Drug form: TAB, Bedtime, Dosing Weight 99.091, kg, Start date: 02/03/19 21:00:00 CDT, Duration: 30 day, Stop date: 03/04/19 21:00:00 CDTNotes: (Same as:Remeron) No Longer Active 02/04/2019 [facility] Singulair 10 mg, 1 tab, Route: PO, Drug form: TAB, Bedtime, Dosing Weight 99.091, kg, Start date: 02/03/19 21:00:00 CDT, Duration: 30 day, Stop date: 03/04/19 21:00:00 CDTNotes: (Same as:Singulair) No Longer Active 02/04/2019 [facility] Plavix 75 mg, 1 tab, Route: PO, Drug form: TAB, Q5PM, Dosing Weight 99.091, kg, Start date: 02/03/19 17:00:00 CDT, Duration: 30 day, Stop date: 03/04/19 17:00:00 CDTNotes: (Same As: Plavix) No Longer Active 02/03/2019 [facility] Insulin Lispro 10 unit, 0.1 mL, [...] Expires in days from Date Inactive 02/03/2019 [facility] Acetaminophen 325 MG / Hydrocodone Bitartrate 10 MG Oral Tablet [[place] 10/325] 1 tab, Route: PO, Drug Form: TAB, Dosing Weight 99.091, kg, Q6H, Start date: 02/03/19 12:00:00 CDT, Duration: 30 day, Stop date: 03/05/19 6:00:00 CDT Inactive 02/03/2019 [facility] Acetaminophen 325 MG / Hydrocodone Bitartrate 10 MG Oral Tablet [[place] 10/325] 1 tab, PO, 5X Day, PRN Pain Score 1-5, 0 Refill(s) Active 02/03/2019 [facility] clonazePAM 0.5 mg oral tablet 0.5 mg=1 tab, PO, BID, PRN anxiety, # 60 tab, 0 Refill(s) Active 02/03/2019 [facility] insulin glargine 32 unit, 0.32 mL, Route: SUB-Q, Drug form: SOLN, BID, Start date: 02/03/19 9:00:00 CDT, Duration: 30 day, Stop date: 03/04/19 21:00:00 CDTNotes: (Same as: Lantus) Do not hold insulin without contacting prescriber WASTE: F/P - Black; E - Kngine Trash Bin "single patient use only" No Longer Active 02/03/2019 [facility] gabapentin 400 mg, 1 cap, Route: PO, Drug form: CAP, TID, Dosing Weight 99.091, kg, Start date: 02/03/19 9:00:00 CDT, Duration: 30 day, Stop date: 03/04/19 21:00:00 CDTNotes: (Same as: Neurontin) No Longer Active 02/03/2019 [facility] Buspirone 7.5 mg, 1.5 tab, Route: PO, Drug form: TAB, BID, Dosing Weight 99.091, kg, Start date: 02/03/19 9:00:00 CDT, Duration: 30 day, Stop date: 03/04/19 17:00:00 CDTNotes: (Same As: BuSpar) No Longer Active 02/03/2019 [facility] Wellbutrin 300 mg, 2 tab, Route: PO, Drug form: ERTAB, Daily, Dosing Weight 99.091, kg, Start date: 02/03/19 9:00:00 CDT, Duration: 30 day, Stop date: 03/04/19 9:00:00 CDTNotes: (Same as: Wellbutrin XL) "Do Not Crush" No Longer Active 02/03/2019 [facility] Protonix 40 mg, 1 tab, Route: PO, Drug form: ECTAB, Q24H, Start date: 02/03/19 9:00:00 CDT, Duration: 30 day, Stop date: 03/04/19 9:00:00 CDTNotes: Tablet should not be chewed or crushed. (Same as: Protonix) No Longer Active 02/03/2019 [facility] Prozac 40 mg, 4 cap, Route: PO, Drug form: CAP, BID, Dosing Weight 99.091, kg, Start date: 02/03/19 9:00:00 CDT, Duration: 30 day, Stop date: 03/04/19 17:00:00 CDTNotes: (Same as: Prozac) No Longer Active 02/03/2019 [facility] Clonazepam 0.5 mg, 1 tab, Route: PO, Drug form: TAB, BID, Dosing Weight 99.091, kg, PRN Anxiety, Start date: 02/03/19 9:00:00 CDT, Duration: 30 day, Stop date: 03/05/19 8:59:00 CDTNotes: (Same As: KlonoPIN) Inactive 02/03/2019 [facility] insulin detemir 32 unit, Route: SUB-Q, Drug form: SOLN, BID, Dosing Weight 99.091, kg, Start date: 02/03/19 9:00:00 CDT, Duration: 30 day, Stop date: 03/04/19 17:00:00 CDT Inactive 02/03/2019 [facility] Lisinopril 2.5 mg, 0.5 tab, Route: PO, Drug form: TAB, Daily, Dosing Weight 99.091, kg, Start date: 02/03/19 9:00:00 CDT, Duration: 30 day, Stop date: 03/04/19 9:00:00 CDTNotes: (Same as: Prinivil, Zestril) No Longer Active 02/03/2019 [facility] Advair Diskus 100 mcg-50 mcg inhalation powder 1 puff, Route: INHALATION, Drug Form: PWDR, Dosing Weight 99.091, kg, BID, Start date: 02/03/19 9:00:00 CDT, Duration: 30 day, Stop date: 03/04/19 17:00:00 CDT Inactive 02/03/2019 [facility] Omeprazole 40 mg, Route: PO, Drug form: DRC, Daily, Dosing Weight 99.091, kg, Start date: 02/03/19 9:00:00 CDT, Duration: 30 day, Stop date: 03/04/19 9:00:00 CDT Inactive 02/03/2019 [facility] Glucagon 1 mg, Route: IM, Drug form: PDR/INJ, PRN, Dosing Weight 99.091, kg, PRN Blood Glucose Results, Start date: 02/03/19 8:23:00 CDT, Duration: 30 day, Stop date: 03/05/19 8:22:00 CDT No Longer Active 02/03/2019 [facility] Dextrose 50% Syringe 25 gm, 50 mL, Route: IVP, Drug Form: INJ, Dosing Weight 99.091, kg, PRN, PRN Blood Glucose Results, Start date: 02/03/19 8:23:00 CDT, Duration: 30 day, Stop date: 03/05/19 8:22:00 CDT No Longer Active 02/03/2019 [facility] Insulin Lispro 1 unit, 0.01 mL, [...] days from Date No Longer Active 02/03/2019 [facility] Hydroxyzine 25 mg, 1 tab, Route: PO, Drug form: TAB, QID, Dosing Weight 99.091, kg, PRN Itching, Start date: 02/03/19 8:11:00 CDT, Duration: 30 day, Stop date: 03/05/19 8:10:00 CDTNotes: (Same as: Atarax) Avoid alcohol. No Longer Active 02/03/2019 [facility] Albuterol 0.833 MG/ML / Ipratropium [place] 0.167 MG/ML Inhalant Solution 3 mL, Route: INHALATION, Drug Form: SOLN, Dosing Weight 99.091, kg, RQ6H, PRN Wheezing, Start date: 02/03/19 8:11:00 CDT, Duration: 30 day, Stop date: 03/05/19 8:10:00 CDTNotes: (Same as: Duoneb) No Longer Active 02/03/2019 [facility] Acetaminophen 325 MG / Hydrocodone Bitartrate 10 MG Oral Tablet [Sanborn 10/325] 1 tab, Route: PO, Drug Form: TAB, Dosing Weight 99.091, kg, Q4H, PRN Pain Score 4-6, Start date: 02/03/19 4:00:00 CDT, Duration: 30 day, Stop date: 03/05/19 3:59:00 CDTNotes: Do not exceed 4gm/day of acetaminophen. (Same as: Sanborn 325/10) No Longer Active 02/03/2019 [facility] Zofran 4 mg, PO, PRN, 0 Refill(s) Active 02/03/2019 [facility] Acetaminophen 325 MG / Hydrocodone Bitartrate 10 MG Oral Tablet [Sanborn 10/325] 1 tab, PO, Q6H, 0 Refill(s) Inactive 02/03/2019 [facility] Humalog SUB-Q, 0 Refill(s) No Longer Active 02/03/2019 [facility] Trazodone 100 mg, PO, 0 Refill(s) No Longer Active 02/03/2019 [facility] Clonazepam 1 mg, PO, TID, 0 Refill(s) Inactive 02/03/2019 [facility] Remeron 15 mg, PO, Bedtime, 0 Refill(s) Active 02/03/2019 [facility] 24 HR Nicotine 0.875 MG/HR Transdermal Patch =1 patch, TOP, Daily, # 30 patch, 0 Refill(s) Active 02/03/2019 [facility] Loperamide 2 mg, PO, Q4H, PRN, 0 Refill(s) Active 02/03/2019 [facility] Wellbutrin See Instructions, 300 mg PO Qday, 0 Refill(s) Active 02/03/2019 [facility] Lactate TOP, BID, 0 Refill(s) No Longer Active 02/03/2019 [facility] Hydroxyzine Hydrochloride 25 MG Oral Tablet 25 mg=1 tab, PO, QID, 0 Refill(s) Active 02/03/2019 [facility] Advair Diskus 100 mcg-50 mcg inhalation powder 1 puff, INHALATION, BID, 0 Refill(s) Active 02/03/2019 [facility] Glucagon 1 mg, Route: IM, Drug form: PDR/INJ, PRN, Dosing Weight 91.818, kg, PRN Blood Glucose Results, Start date: 02/02/19 23:19:00 CDT, Duration: 30 day, Stop date: 03/04/19 23:18:00 CDT No Longer Active 02/03/2019 [facility] Dextrose 50% Syringe 25 gm, 50 mL, Route: IVP, Drug Form: INJ, Dosing Weight 91.818, kg, PRN, PRN Blood Glucose Results, Start date: 02/02/19 23:19:00 CDT, Duration: 30 day, Stop date: 03/04/19 23:18:00 CDT No Longer Active 02/03/2019 [facility] Seroquel 100 mg, 1 tab, Route: PO, Drug form: TAB, Bedtime, Dosing Weight 91.818, kg, Start date: 02/02/19 23:18:00 CDT, Duration: 30 day, Stop date: 03/04/19 21:00:00 CDTNotes: (Same as: SEROquel) No Longer Active 02/03/2019 [facility] Clonazepam 0.5 mg, 1 tab, Route: PO, Drug form: TAB, TID, Dosing Weight 91.818, kg, PRN Anxiety, Start date: 02/02/19 23:12:00 CDT, Duration: 30 day, Stop date: 03/04/19 23:11:00 CDTNotes: (Same As: KlonoPIN) No Longer Active 02/03/2019 [facility] Heparin 30 unit/kg Bolus (Heparin Dosing Weight) Route: IVP, PRN, 2,000 unit, 2 mL, Drug form: INJ, PRN, Heparin Protocol, Start date: 02/02/19 18:43:00 CDT Stop date: 03/04/19 18:42:00 CDT, 30 day No Longer Active 02/02/2019 [facility] heparin additive 25,000 unit [12 unit/kg/hr] + Premix Diluent Dextrose 5% 500 mL 500 mL, Rate: 16.03 ml/hr, Infuse over: 31.2 hr, Route: IV, Dosing Weight 66.8 kg, Total Volume: 500 mL, Start date: 02/02/19 18:43:00 CDT, Duration: 30 day, Stop date: 03/04/19 18:42:00 CDT, 1.73, m2 No Longer Active 02/02/2019 [facility] Heparin - one time bolus for ACS 4,000 unit, 4 mL, Route: IVP, Drug form: INJ, ONCE, Dosing Weight 91.818, kg, Priority: STAT, Start date: 02/02/19 18:43:00 CDT, Stop date: 02/02/19 18:43:00 CDT Inactive 02/02/2019 [facility] Heparin 60 unit/kg Bolus (Heparin Dosing Weight) Route: IVP, PRN, 4,000 unit, 4 mL, Drug form: INJ, PRN, Heparin Protocol, Start date: 02/02/19 18:43:00 CDT Stop date: 03/04/19 18:42:00 CDT, 30 day No Longer Active 02/02/2019 [facility] alfentanil (ANES) Route: IV, Drug form: INJ, ONCE, Stop date: 07/17/18 10:56:00 CDT Inactive 07/17/2018 [facility] midazolam (ANES) Route: IV, Drug form: SOLN, ONCE, Stop date: 07/17/18 10:46:00 CDT Inactive 07/17/2018 [facility] Sodium Chloride 0.9% IV (ANES) 1000 mL Route: IV, Total Volume: 1,000, Start date: 07/17/18 10:08:00 CDT, Stop date: 07/17/18 11:08:00 CDT Inactive 07/17/2018 [facility] Trazodone 20 mg, PO, Bedtime, 0 Refill(s) No Longer Active 07/14/2018 [facility] Plavix 75 mg, 1 tab, Route: PO, Drug form: TAB, Q5PM, Dosing Weight 102.273, kg, Start date: 06/12/18 17:00:00 CDT, Duration: 30 day, Stop date: 07/11/18 17:00:00 CDTNotes: (Same As: Plavix) Inactive 06/12/2018 [facility] Zofran 4 mg, 2 mL, Route: IVP, Drug form: INJ, Q8H, Dosing Weight 102.273, kg, PRN Nausea, Start date: 06/12/18 15:25:00 CDT, Duration: 30 day, Stop date: 07/12/18 15:24:00 CDTNotes: (Same as: Zofran) MEDICATION WASTE Product Size: 4 mg Product Wasted: ___ mg Inactive 06/12/2018 [facility] gabapentin 300 MG Oral Capsule 300 mg=1 cap, PO, TID, # 90 cap, 0 Refill(s), Pharmacy: [facility] No Longer Active 06/12/2018 [facility] Omeprazole 40 mg, Route: PO, Drug form: DRC, Daily, Dosing Weight 102.273, kg, Start date: 06/12/18 9:00:00 CDT, Duration: 30 day, Stop date: 07/11/18 9:00:00 CDT No Longer Active 06/12/2018 [facility] 24 HR Metformin hydrochloride 750 MG Extended Release Tablet 750 mg, 1 tab, Route: PO, Drug form: ERTAB, BID, Dosing Weight 102.273, kg, Start date: 06/12/18 9:00:00 CDT, Duration: 30 day, Stop date: 07/11/18 17:00:00 CDT Inactive 06/12/2018 [facility] insulin detemir 32 unit, Route: SUB-Q, Drug form: SOLN, BID, Dosing Weight 102.273, kg, Start date: 06/12/18 9:00:00 CDT, Duration: 30 day, Stop date: 07/11/18 17:00:00 CDT No Longer Active 06/12/2018 [facility] Fluoxetine 40 mg, 4 cap, Route: PO, Drug form: CAP, BID, Dosing Weight 102.273, kg, Start date: 06/12/18 9:00:00 CDT, Duration: 30 day, Stop date: 07/11/18 17:00:00 CDTNotes: (Same as: Prozac) Inactive 06/12/2018 [facility] insulin glargine 60 unit, 0.6 mL, Route: SUB-Q, Drug form: SOLN, Daily, Start date: 06/12/18 9:00:00 CDT, Duration: 30 day, Stop date: 07/11/18 9:00:00 CDTNotes: (Same as: Lantus) Do not hold insulin without contacting prescriber WASTE: F/P - Black; E - Municipal Trash Bin "single patient use only" Inactive 06/12/2018 [facility] Humalog 10 unit, 0.1 mL, Route: [...] Expires in days from Date Inactive 06/12/2018 [facility] Protonix 40 mg, 1 tab, Route: PO, Drug form: ECTAB, Before Breakfast, Start date: 06/12/18 7:30:00 CDT, Duration: 30 day, Stop date: 07/11/18 7:30:00 CDTNotes: Tablet should not be chewed or crushed. (Same as: Protonix) Inactive 06/12/2018 [facility] Ambien 5 mg, 1 tab, Route: PO, Drug form: TAB, Bedtime, Dosing Weight 102.273, kg, PRN Insomnia, Start date: 06/11/18 21:34:00 CDT, Duration: 30 day, Stop date: 07/11/18 21:33:00 CDTNotes: (Same As: Ambien) No Longer Active 06/12/2018 [facility] Acetaminophen 325 MG / Hydrocodone Bitartrate 5 MG Oral Tablet [Sanborn 5/325] 1 tab, Route: PO, Drug Form: TAB, Dosing Weight 102.273, kg, Q6H, PRN Pain Score 1-3, Start date: 06/11/18 21:34:00 CDT, Duration: 30 day, Stop date: 07/11/18 21:33:00 CDTNotes: (Same as: Sanborn 325/5) Do not exceed 4gm/day of acetaminophen. No Longer Active 06/12/2018 [facility] Zofran 4 mg, 2 mL, Route: IV, Drug form: INJ, Q8H, Dosing Weight 102.273, kg, PRN Nausea, Start date: 06/11/18 21:34:00 CDT, Duration: 30 day, Stop date: 07/11/18 21:33:00 CDTNotes: (Same as: Zofran) MEDICATION WASTE Product Size: 4 mg Product Wasted: ___ mg Inactive 06/12/2018 [facility] Tylenol 650 mg, 2 tab, Route: PO, Drug form: TAB, Q6H, Dosing Weight 102.273, kg, PRN Pain Score 1-3, Start date: 06/11/18 21:34:00 CDT, Duration: 30 day, Stop date: 07/11/18 21:33:00 CDTNotes: Do not exceed 4 gm/day. (Same as: Tylenol) No Longer Active 06/12/2018 [facility] Zofran 4 mg, 2 mL, Route: IV, Drug form: INJ, Q6H, Dosing Weight 102.273, kg, PRN Nausea, Priority: STAT, Start date: 06/11/18 21:25:00 CDT, Duration: 30 day, Stop date: 07/11/18 21:24:00 CDTNotes: (Same as: Zofran) MEDICATION WASTE Product Size: 4 mg Product Wasted: ___ mg No Longer Active 06/12/2018 [facility] Singulair 10 mg, 1 tab, Route: PO, Drug form: TAB, Bedtime, Dosing Weight 102.273, kg, Start date: 06/11/18 21:00:00 CDT, Duration: 30 day, Stop date: 07/10/18 21:00:00 CDTNotes: (Same as:Singulair) No Longer Active 06/12/2018 [facility] gabapentin 400 MG Oral Capsule 200 mg, 2 cap, Route: PO, Drug form: CAP, TID, Dosing Weight 102.273, kg, Start date: 06/11/18 21:00:00 CDT, Duration: 30 day, Stop date: 07/11/18 15:00:00 CDTNotes: (Same as: Neurontin) No Longer Active 06/12/2018 [facility] Clonazepam 0.5 mg, 1 tab, Route: PO, Drug form: TAB, QID, Dosing Weight 102.273, kg, Start date: 06/11/18 21:00:00 CDT, Duration: 30 day, Stop date: 07/11/18 17:00:00 CDTNotes: (Same As: KlonoPIN) No Longer Active 06/12/2018 [facility] Buspirone 7.5 mg, 1.5 tab, Route: PO, Drug form: TAB, BID, Dosing Weight 102.273, kg, Start date: 06/11/18 21:00:00 CDT, Duration: 30 day, Stop date: 07/11/18 9:00:00 CDTNotes: (Same As: BuSpar) No Longer Active 06/12/2018 [facility] Nicotine 7 mg, 1 patch, Route: TOP, Drug form: ERFILM, Q24H, Dosing Weight 102.273, kg, Start date: 06/11/18 21:00:00 CDT, Duration: 30 day, Stop date: 07/10/18 21:00:00 CDT No Longer Active 06/12/2018 [facility] *NURSE please bring home med METFORMIN to Pharmacy for label *NURSE please bring home med METFORMIN to Pharmacy for label, 1, Drug form: MISC, Route: MISC, TID, 06/11/18 20:00:00 CDT, Duration: 30 day, Stop date: 07/11/18 15:00:00 CDT No Longer Active 06/12/2018 [facility] Sodium Chloride 0.45% IV 1,000 mL 1,000 mL, Rate: 50 ml/hr, Infuse over: 20 hr, Route: IV, Dosing Weight 102.273 kg, Total Volume: 1,000, Start date: 06/11/18 18:11:00 CDT, Duration: 30 day, Stop date: 07/11/18 18:10:00 CDT, 2.18, m2 No Longer Active 06/11/2018 [facility] Tramadol 50 mg, Route: PO, Drug form: TAB, ONCE, Dosing Weight 102.273, kg, > 50 kg, Priority: STAT, Start date: 06/11/18 17:11:00 CDT, Stop date: 06/11/18 17:11:00 CDT Inactive 06/11/2018 [facility] 24 HR Metformin hydrochloride 750 MG Extended Release Tablet 750 mg=1 tab, PO, BID, 0 Refill(s) Active 06/11/2018 [facility] lisinopril 2.5 mg oral tablet 2.5 mg=1 tab, PO, Daily, 0 Refill(s) No Longer Active 06/11/2018 [facility] quetiapine 100 MG Oral Tablet [Seroquel] 150 mg=1.5 tab, PO, Bedtime, 0 Refill(s) No Longer Active 06/11/2018 [facility] 3 ML insulin detemir 100 UNT/ML Prefilled Syringe [Levemir] 32 unit, SUB-Q, BID, 0 Refill(s) No Longer Active 06/11/2018 [facility] Insulin Lispro 100 UNT/ML Injectable Solution [Humalog] 10 unit, SUB-Q, TID, 0 Refill(s) No Longer Active 06/11/2018 [facility] gabapentin 400 MG Oral Capsule 400 mg=1 cap, PO, TID, 0 Refill(s) No Longer Active 06/11/2018 [facility] clonazePAM 0.5 mg oral tablet 0.5 mg=1 tab, PO, QID, 0 Refill(s) Active 06/11/2018 [facility] busPIRone 7.5 mg oral tablet 7.5 mg=1 tab, PO, BID, 0 Refill(s) No Longer Active 06/11/2018 [facility] Omeprazole 40 mg, Route: PO, Drug form: DRC, Daily, Dosing Weight 99.5, kg, Start date: 11/18/17 9:00:00 [employer]INE[employer], Duration: 30 day, Stop date: 12/17/17 9:00:00 [employer] No Longer Active 11/18/2017 [facility] Singulair 10 mg, 1 tab, Route: PO, Drug form: TAB, Daily, Dosing Weight 99.5, kg, Start date: 11/18/17 9:00:00 [employer], Duration: 30 day, Stop date: 12/17/17 9:00:00 CSTNotes: (Same as:Singulair) No Longer Active 11/18/2017 [facility] Abilify 10 mg, Route: PO, Drug form: TAB, Daily, Dosing Weight 99.5, kg, Start date: 11/18/17 9:00:00 [employer] S[employer]INEER, Duration: 30 day, Stop date: 12/17/17 9:00:00 [employer] SAF[employer]ER No Longer Active 11/18/2017 [facility] Plavix 75 mg, 1 tab, Route: PO, Drug form: TAB, Daily, Dosing Weight 99.5, kg, Start date: 11/18/17 9:00:00 [employer], Duration: 30 day, Stop date: 12/17/17 9:00:00 CSTNotes: (Same As: Plavix) No Longer Active 11/18/2017 [facility] Protonix 40 mg, 1 tab, Route: PO, Drug form: ECTAB, Before Breakfast, Start date: 11/18/17 7:30:00 [employer], Duration: 30 day, Stop date: 12/17/17 7:30:00 CSTNotes: Tablet should not be chewed or crushed. (Same as: Protonix) No Longer Active 11/18/2017 [facility] Fluoxetine 40 mg, 4 cap, Route: PO, Drug form: CAP, QPM, Dosing Weight 99.5, kg, Start date: 11/17/17 17:00:00 [employer] S[employer], Duration: 30 day, Stop date: 12/16/17 17:00:00 CSTNotes: (Same as: Prozac) Inactive 11/17/2017 [facility] have [facility] verify & bar-code pt own Abilify have [facility] verify & bar-code pt own Abilify, reminder, Drug form: MISC, Route: MISC, QSHIFT, 11/17/17 16:00:00 [employer], Duration: 30 day, Stop date: 12/17/17 8:00:00 [employer]ER Inactive 11/17/2017 [facility] gabapentin 300 MG Oral Capsule 300 mg, 1 cap, Route: PO, Drug form: CAP, TID, Dosing Weight 99.5, kg, Start date: 11/17/17 13:00:00 [employer], Duration: 30 day, Stop date: 12/17/17 9:00:00 CSTNotes: (Same as: Neurontin) Inactive 11/17/2017 [facility] Magnesium Sulfate 2 gm, 50 mL, Route: IVPB, Drug form: INJ, ONCE, Dosing Weight 99.5, kg, Start date: 11/17/17 12:44:00 [employer], Stop date: 11/17/17 12:44:00 CSTNotes: WASTE: F/P - Sink; E - Municipal Trash Bin Inactive 11/17/2017 [facility] Humalog 100 units/mL 5 unit, SUB-Q, TID-Before Meals, # 10 mL, 0 Refill(s), other Active 11/17/2017 [facility] 3 ML insulin detemir 100 UNT/ML Prefilled Syringe [Levemir] 16 unit, SUB-Q, BID, # 10 mL, 0 Refill(s), other Active 11/17/2017 [facility] Acetaminophen 325 MG / Hydrocodone Bitartrate 10 MG Oral Tablet 1 tab, Route: PO, Drug Form: TAB, Dosing Weight 99.5, kg, Q6H, PRN Pain Score 4-6, Start date: 11/17/17 3:25:00 [employer], Duration: 30 day, Stop date: 12/17/17 3:24:00 CSTNotes: Do not exceed 4gm/day of acetaminophen. (Same as: Sanborn 325/10) Inactive 11/17/2017 [facility] Acetaminophen 325 MG / Hydrocodone Bitartrate 5 MG Oral Tablet 1 tab, PO, Q4H, PRN Pain Score 4-6, 0 Refill(s) Active 11/17/2017 [facility] Dextrose 5% with 0.45% NaCl IV 1,000 mL 1,000 mL, Rate: 75 ml/hr, Infuse over: 13.3 hr, Route: IV, Dosing Weight 99.5 kg, Total Volume: 1,000, Start date: 11/17/17 1:23:00 [employer] S[employer], Stop date: 12/17/17 1:22:00 [employer] S[employer]ER, 2.15, m2 Inactive 11/17/2017 [facility] Acetaminophen 650 mg, Route: PO, Drug form: TAB, ONCE, Dosing Weight 90.909, kg, Priority: STAT, Start date: 11/17/17 0:20:00 [employer] S[employer] ENGINEER, Stop date: 11/17/17 0:20:00 [employer] S[employer] ENGINEER Inactive 11/17/2017 [facility] Dextrose 10% in Water IV 1,000 mL 1,000 mL, Rate: 100 ml/hr, Infuse over: 10 hr, Route: IV, Dosing Weight 90.909 kg, Total Volume: 1,000, Start date: 11/16/17 22:00:00 [employer] S[employer]ER, Duration: 30 day, Stop date: 12/16/17 21:59:00 [employer]ER, 2.06, m2 No Longer Active 11/17/2017 [facility] Ondansetron 4 mg, 2 mL, Route: IVP, Drug form: INJ, Q6H, Dosing Weight 90.909, kg, PRN Nausea & Vomiting, Start date: 11/16/17 21:40:00 [employer], Duration: 30 day, Stop date: 12/16/17 21:39:00 CSTNotes: (Same as: Zofran) MEDICATION WASTE Product Size: 4 mg Product Wasted: ___ mg No Longer Active 11/17/2017 [facility] Acetaminophen 325 mg, 1 tab, Route: PO, Drug form: TAB, Q4H, Dosing Weight 90.909, kg, PRN Pain Score 4-6, Start date: 11/16/17 21:40:00 [employer] S[employer] ENG[employer]ER, Duration: 30 day, Stop date: 12/16/17 21:39:00 CSTNotes: Do not exceed 4 gm/day. (Same as: Tylenol) No Longer Active 11/17/2017 [facility] D10W 980.75 mL + sodium chloride 23.4% IV 77 mEq 980.75 mL, Rate: 100 ml/hr, Infuse over: 10 hr, Route: IV, Dosing Weight 90.909 kg, Total Volume: 1,000, Start date: 11/16/17 21:18:00 [employer] S[employer]ER, Duration: 30 day, Stop date: 12/16/17 21:17:00 [employer]ES S[employer] ENGINEER, 2.06, m2 Inactive 11/17/2017 [facility] Trazodone Hydrochloride 100 MG Oral Tablet 200 mg=2 tab, PO, Bedtime, PRN Insomnia, 0 Refill(s) No Longer Active 11/17/2017 [facility] clonazePAM 1 mg oral tablet 1 mg=1 tab, PO, TID, PRN Anxiety, 0 Refill(s) Active 11/17/2017 [facility] FLUoxetine 40 mg oral capsule 40 mg=1 cap, PO, QPM, 0 Refill(s) Active 11/17/2017 [facility] clopidogrel 75 MG Oral Tablet [Plavix] 75 mg=1 tab, PO, Daily, 0 Refill(s) Active 11/17/2017 [facility] montelukast 10 MG Oral Tablet [Singulair] 10 mg=1 tab, PO, Daily, 0 Refill(s) Active 11/17/2017 [facility] omeprazole 40 mg oral delayed release capsule 40 mg=1 cap, PO, Daily, 0 Refill(s) Active 11/17/2017 [facility] 3 ML insulin detemir 100 UNT/ML Prefilled Syringe [Levemir] 32 unit, SUB-Q, BID, 0 Refill(s) No Longer Active 11/17/2017 [facility] Humalog 100 units/mL 10 unit, SUB-Q, TID-Before Meals, 0 Refill(s) No Longer Active 11/17/2017 [facility] gabapentin 300 MG Oral Capsule 300 mg=1 cap, PO, TID, 0 Refill(s) Active 11/17/2017 [facility] Albuterol 0.83 MG/ML Inhalant Solution 2.5 mg=3 mL, NEB, Daily, 0 Refill(s) Active 11/17/2017 [facility] aripiprazole 10 MG Oral Tablet [Abilify] 10 mg=1 tab, PO, Daily, 0 Refill(s) Active 11/17/2017 [facility] d50 syringe 50 mL, Route: IVP, Dosing Weight 90.909, kg, ONCE, STAT, Start date: 11/16/17 19:14:00 [employer] S[employer]ER, Stop date: 11/16/17 19:14:00 [employer]ES S[employer] ENGINEER, 25 ml=12.5 gm Inactive 11/17/2017 [facility] Sodium Chloride 0.9% (Bolus) IV 2,000 mL, 2,000 ml/hr, Infuse Over: 1 hr, Route: IV, ONCE, Priority: STAT, Dosing Weight 90.909 kg, Start date: 11/16/17 19:04:00 [employer]ES SAFET[employer] ENGINEER, Stop date: 11/16/17 19:04:00 [employer]ES SAF[employer] ENGINEER Inactive 11/17/2017 [facility] D5W 1/2NS 1,000 mL 1,000 mL, Rate: 100 ml/hr, Infuse over: 10 hr, Route: IV, Total Volume: 1,000, Priority: STAT, Start date: 11/16/17 18:52:00 [employer]ES S[employer] ENGINEER, Duration: 30 day, Stop date: 12/16/17 18:51:00 MINES SAF[employer] ENGINEER Inactive 11/17/2017 [facility] Allergies, Adverse Reactions, Alerts Substance Category Reaction Severity Reaction type Status Date Reported Comments Source sulfa drugs Assertion Drug allergy Active [facility] aspirin Assertion Drug allergy Active [facility] iodine Assertion Drug allergy Active [facility] NSAIDs Assertion Drug allergy Active [facility] predniSONE Assertion Drug allergy Active [facility] Immunizations Immunization Date Given Site Status Last Updated Comments Source Results Order Name Results Value Reference Range Date Interpretation Comments Source CARDIAC ENZYMES Troponin-I null 0.00 - 0.40 02/28/2019 [facility] CARDIAC ENZYMES Troponin-I null 0.00 - 0.40 02/28/2019 [facility] CARDIAC ENZYMES BNP 49 pg/mL <=100 pg/mL 02/27/2019 [facility] CARDIAC ENZYMES Troponin-I null 0.00 - 0.40 02/27/2019 [facility] CARDIAC ENZYMES Total CK 69 unit/L 12 - 191 02/27/2019 [facility] CHEM PANEL Phosphorus 2.8 mg/dL 2.5 - 4.5 02/27/2019 [facility] CHEM PANEL Magnesium Lvl 1.7 mg/dL 1.8 - 2.4 02/27/2019 [facility] DRUG SCREEN UDS Note See Note (02/27/19 3:04 PM) 02/27/2019 [facility] DRUG SCREEN U Phencyclidine Scr Negative *NA* (02/27/19 3:04 PM) Negative 02/27/2019 [facility] DRUG SCREEN U Amph Scr Negative *NA* (02/27/19 3:04 PM) Negative 02/27/2019 [facility] DRUG SCREEN U Ciara Scr Negative *NA* (02/27/19 3:04 PM) Negative 02/27/2019 [facility] DRUG SCREEN U Cocaine Scr Negative *NA* (02/27/19 3:04 PM) Negative 02/27/2019 [facility] DRUG SCREEN U Opiate Scr Positive *ABN* (02/27/19 3:04 PM) Negative 02/27/2019 [facility] DRUG SCREEN U Cannab Scr Negative *NA* (02/27/19 3:04 PM) Negative 02/27/2019 [facility] DRUG SCREEN U Benzodiaz Scr Negative *NA* (02/27/19 3:04 PM) Negative 02/27/2019 [facility] ELECTROLYTES AGAP 12.8 meq/L 10.0 - 20.0 02/27/2019 [facility] ELECTROLYTES A/G Ratio 0.8 0.7 - 1.6 02/27/2019 [facility] ELECTROLYTES Globulin 3.9 g/dL 2.7 - 4.2 02/27/2019 [facility] ELECTROLYTES B/C Ratio 22 6 - 25 02/27/2019 [facility] ELECTROLYTES eGFR 60 mL/min/1.73m2 02/27/2019 Result [...] should be multiplied by the estimated BMI. [facility] ELECTROLYTES Glucose Lvl 199 mg/dL 70 - 99 02/27/2019 [facility] ELECTROLYTES Chloride Lvl 107 meq/L 95 - 109 02/27/2019 [facility] ELECTROLYTES Potassium Lvl 4.8 meq/L 3.5 - 5.1 02/27/2019 [facility] ELECTROLYTES Sodium Lvl 142 meq/L 135 - 145 02/27/2019 [facility] ELECTROLYTES Creatinine Lvl 1.05 mg/dL 0.50 - 1.40 02/27/2019 [facility] ELECTROLYTES BUN 23 mg/dL 7 - 22 02/27/2019 [facility] ELECTROLYTES Albumin Lvl 3.3 g/dL 3.5 - 5.0 02/27/2019 [facility] Total Protein 7.2 g/dL 6.4 - 8.4 02/27/2019 [facility] ELECTROLYTES Calcium Lvl 9.7 mg/dL 8.5 - 10.5 02/27/2019 [facility] ELECTROLYTES CO2 27 meq/L 24 - 32 02/27/2019 [facility] ELECTROLYTES Bili Total 0.3 mg/dL 0.2 - 1.3 02/27/2019 [facility] ELECTROLYTES Alk Phos 196 unit/L 39 - 136 02/27/2019 [facility] ELECTROLYTES AST 10 unit/L 0 - 37 02/27/2019 [facility] ELECTROLYTES ALT 15 unit/L 0 - 65 02/27/2019 [facility] HEMATOLOGY INR 0.94 0.85 - 1.17 02/27/2019 [facility] HEMATOLOGY PT 12.4 s 12.0 - 14.7 02/27/2019 [facility] HEMATOLOGY RDW 18.7 % 11.5 - 14.5 02/27/2019 [facility] HEMATOLOGY Platelet 318 K/CMM 133 - 450 02/27/2019 [facility] WBC 12.3 K/CMM 3.7 - 10.4 02/27/2019 [facility] RBC 4.32 M/CMM 4.20 - 5.40 02/27/2019 [facility] Hgb 11.6 g/dL 12.0 - 16.0 02/27/2019 [facility] Hct 35.8 % 36.0 - 48.0 02/27/2019 [facility] MPV 8.9 fL 7.4 - 10.4 02/27/2019 [facility] HEMATOLOGY MCV 82.8 fL 80.0 - 98.0 02/27/2019 [facility] MCH 26.8 pg 27.0 - 31.0 02/27/2019 [facility] MCHC 32.4 g/dL 32.0 - 36.0 02/27/2019 [facility] HEMATOLOGY Basophils # 0.1 K/CMM 0.0 - 0.2 02/27/2019 [facility] HEMATOLOGY Basophils 0.8 % 0.0 - 1.0 02/27/2019 [facility] HEMATOLOGY Eosinophils # 0.2 K/CMM 0.0 - 0.5 02/27/2019 [facility] HEMATOLOGY Lymphocytes 25.7 % 20.0 - 40.0 02/27/2019 [facility] HEMATOLOGY Eosinophils 1.3 % 0.0 - 4.0 02/27/2019 [facility] HEMATOLOGY Monocytes 5.8 % 2.0 - 12.0 02/27/2019 [facility] HEMATOLOGY Segs 66.4 % 45.0 - 75.0 02/27/2019 [facility] HEMATOLOGY Neutrophils # 8.1 K/CMM 1.5 - 8.1 02/27/2019 [facility] HEMATOLOGY Lymphocytes # 3.1 K/CMM 1.0 - 5.5 02/27/2019 [facility] HEMATOLOGY Monocytes # 0.7 K/CMM 0.0 - 0.8 02/27/2019 [facility] URINE AND STOOL UA Urobilinogen <=1.0 mg/dL 0.1 - 1.0 02/27/2019 [facility] URINE AND STOOL UA Hyal Cast 5 /LPF 0 - 2 02/27/2019 [facility] URINE AND STOOL UA WBC 1 /HPF 0 - 5 02/27/2019 [facility] URINE AND STOOL UA Sq Epi Many /LPF Few /LPF 02/27/2019 [facility] URINE AND STOOL UA RBC null 0 - 2 02/27/2019 [facility] URINE AND STOOL UA Nitrite Negative (02/27/19 3:04 PM) Negative 02/27/2019 [facility] URINE AND STOOL UA Blood Negative (02/27/19 3:04 PM) Negative 02/27/2019 [facility] URINE AND STOOL UA Leuk Est Negative (02/27/19 3:04 PM) Negative 02/27/2019 [facility] URINE AND STOOL UA Bili Negative *NA* (02/27/19 3:04 PM) Negative 02/27/2019 [facility] URINE AND STOOL UA Ketones Negative mg/dL Negative mg/dL 02/27/2019 [facility] URINE AND STOOL UA pH 5.0 5.0 - 8.0 02/27/2019 [facility] URINE AND STOOL UA Protein Negative mg/dL Negative mg/dL 02/27/2019 [facility] URINE AND STOOL UA Color Yellow *NA* (02/27/19 3:04 PM) Yellow 02/27/2019 [facility] URINE AND STOOL UA Spec Grav 1.013 <=1.030 02/27/2019 [facility] URINE AND STOOL UA Turbidity Clear (02/27/19 3:04 PM) Clear 02/27/2019 [facility] URINE AND STOOL UA Glucose 500 mg/dL Negative mg/dL 02/27/2019 [facility] Chest 1view DX Chest 1view DX [...] Alanis Crawford MD 02/27/19 15:24 FINAL REPORT [facility] ANEMIA STUDY Iron 23 ug/dl 30 - 160 02/06/2019 [facility] ANEMIA STUDY TIBC 287 ug/dl 228 - 428 02/06/2019 [facility] ANEMIA STUDY % [place] 8 % 12 - 57 02/06/2019 [facility] ANEMIA STUDY UIBC 264 ug/dl 110 - 370 02/06/2019 [facility] ANEMIA STUDY Folate Lvl 10.3 ng/mL >=3.0 ng/mL 02/06/2019 [facility] ANEMIA STUDY Vitamin B12 Lvl 378 pg/mL 254 - 1320 02/06/2019 [facility] ANEMIA STUDY Ferritin Lvl 32 ng/mL 5 - 204 02/06/2019 [facility] CHEM PANEL LDH 189 unit/L 98 - 192 02/06/2019 [facility] Hct 29.9 % 36.0 - 48.0 02/06/2019 [facility] MCV 82.9 fL 80.0 - 98.0 02/06/2019 [facility] RDW 18.0 % 11.5 - 14.5 02/06/2019 [facility] MCHC 31.7 g/dL 32.0 - 36.0 02/06/2019 [facility] MCH 26.2 pg 27.0 - 31.0 02/06/2019 [facility] MPV 8.4 fL 7.4 - 10.4 02/06/2019 [facility] Platelet 372 K/CMM 133 - 450 02/06/2019 [facility] RBC 3.60 M/CMM 4.20 - 5.40 02/06/2019 [facility] WBC 11.1 K/CMM 3.7 - 10.4 02/06/2019 [facility] Hgb 9.5 g/dL 12.0 - 16.0 02/06/2019 [facility] Retic Auto 1.9 % 0.5 - 1.5 02/06/2019 [facility] HEMATOLOGY PTT 72.9 s 22.9 - 35.8 02/05/2019 [facility] HEMATOLOGY PTT 65.4 s 22.9 - 35.8 02/05/2019 [facility] HEMATOLOGY PTT 48.0 s 22.9 - 35.8 02/04/2019 [facility] CHEM PANEL eGFR 98 mL/min/1.73m2 02/04/2019 [...] should be multiplied by the estimated BMI. [facility] CHEM PANEL Potassium Lvl 4.4 meq/L 3.5 - 5.1 02/04/2019 [facility] CHEM PANEL Chloride Lvl 110 meq/L 95 - 109 02/04/2019 [facility] CHEM PANEL BUN 14 mg/dL 7 - 22 02/04/2019 [facility] CHEM PANEL Sodium Lvl 143 meq/L 135 - 145 02/04/2019 [facility] CHEM PANEL Glucose Lvl 174 mg/dL 70 - 99 02/04/2019 [facility] CHEM PANEL Creatinine Lvl 0.69 mg/dL 0.50 - 1.40 02/04/2019 [facility] CHEM PANEL CO2 30 meq/L 24 - 32 02/04/2019 [facility] CHEM PANEL AGAP 7.4 meq/L 10.0 - 20.0 02/04/2019 [facility] CHEM PANEL Calcium Lvl 9.2 mg/dL 8.5 - 10.5 02/04/2019 [facility] RBC 3.70 M/CMM 4.20 - 5.40 02/04/2019 [facility] Hgb 9.6 g/dL 12.0 - 16.0 02/04/2019 [facility] Platelet 312 K/CMM 133 - 450 02/04/2019 [facility] HEMATOLOGY MPV 8.3 fL 7.4 - 10.4 02/04/2019 [facility] WBC 7.3 K/CMM 3.7 - 10.4 02/04/2019 [facility] HEMATOLOGY Hct 31.0 % 36.0 - 48.0 02/04/2019 [facility] RDW 18.0 % 11.5 - 14.5 02/04/2019 [facility] MCV 83.8 fL 80.0 - 98.0 02/04/2019 [facility] MCHC 31.0 g/dL 32.0 - 36.0 02/04/2019 [facility] MCH 26.0 pg 27.0 - 31.0 02/04/2019 [facility] CHEM PANEL eGFR 60 mL/min/1.73m2 02/04/2019 [...] should be multiplied by the estimated BMI. [facility] CHEM PANEL BUN 19 mg/dL 7 - 22 02/04/2019 [facility] CHEM PANEL Glucose Lvl 424 mg/dL 70 - 99 02/04/2019 Result Comment: Critical Result(s) called to Shivam Mccain at 02/03/2019 21:58 by wx. Read back OK. [facility] CHEM PANEL AGAP 10.4 meq/L 10.0 - 20.0 02/04/2019 [facility] CHEM PANEL CO2 27 meq/L 24 - 32 02/04/2019 [facility] CHEM PANEL Chloride Lvl 103 meq/L 95 - 109 02/04/2019 [facility] CHEM PANEL Sodium Lvl 135 meq/L 135 - 145 02/04/2019 [facility] CHEM PANEL Potassium Lvl 5.4 meq/L 3.5 - 5.1 02/04/2019 [facility] CHEM PANEL Calcium Lvl 9.1 mg/dL 8.5 - 10.5 02/04/2019 [facility] CHEM PANEL Creatinine Lvl 1.04 mg/dL 0.50 - 1.40 02/04/2019 [facility] CARDIAC ENZYMES Troponin-I 1.40 ng/mL 0.00 - 0.40 02/03/2019 Result Comment: Critical Result(s) called to bakari ivan at 02/03/2019 10:45 by EFA. Read back OK. [facility] Lymphocytes 33.8 % 20.0 - 40.0 02/03/2019 [facility] Monocytes 6.3 % 2.0 - 12.0 02/03/2019 [facility] Segs 58.8 % 45.0 - 75.0 02/03/2019 [facility] Eosinophils 0.5 % 0.0 - 4.0 02/03/2019 [facility] Basophils 0.6 % 0.0 - 1.0 02/03/2019 [facility] Neutrophils # 5.5 K/CMM 1.5 - 8.1 02/03/2019 [facility] Lymphocytes # 3.2 K/CMM 1.0 - 5.5 02/03/2019 [facility] Monocytes # 0.6 K/CMM 0.0 - 0.8 02/03/2019 [facility] Basophils # 0.1 K/CMM 0.0 - 0.2 02/03/2019 [facility] Hct 30.4 % 36.0 - 48.0 02/03/2019 [facility] MCV 83.2 fL 80.0 - 98.0 02/03/2019 [facility] RBC 3.65 M/CMM 4.20 - 5.40 02/03/2019 [facility] Hgb 9.6 g/dL 12.0 - 16.0 02/03/2019 [facility] MCH 26.3 pg 27.0 - 31.0 02/03/2019 [facility] WBC 9.4 K/CMM 3.7 - 10.4 02/03/2019 [facility] Platelet 269 K/CMM 133 - 450 02/03/2019 [facility] MCHC 31.5 g/dL 32.0 - 36.0 02/03/2019 [facility] MPV 8.0 fL 7.4 - 10.4 02/03/2019 [facility] RDW 18.0 % 11.5 - 14.5 02/03/2019 [facility] URINE AND STOOL UA Turbidity Clear [...] Nitrite Negative (02/02/19 10:54 PM) Negative 02/03/2019 [facility] URINE AND STOOL UA Leuk Est Trace *ABN* (02/02/19 10:54 PM) Negative 02/03/2019 [facility] URINE AND STOOL UA Bacteria Occasional /HPF None Seen /HPF 02/03/2019 [facility] URINE AND STOOL UA Hyal Cast 1 /LPF 0 - 2 02/03/2019 [facility] URINE AND STOOL UA Blood Negative (02/02/19 10:54 PM) Negative 02/03/2019 [facility] URINE AND STOOL UA Bili Negative *NA* (02/02/19 10:54 PM) Negative 02/03/2019 [facility] URINE AND STOOL UA Urobilinogen <=1.0 mg/dL 0.1 - 1.0 02/03/2019 [facility] URINE AND STOOL UA Glucose 50 mg/dL Negative mg/dL 02/03/2019 [facility] URINE AND STOOL UA Ketones Negative *NA* (02/02/19 10:54 PM) Negative 02/03/2019 [facility] CARDIAC ENZYMES Troponin-I 2.90 ng/mL 0.00 - 0.40 02/02/2019 Result Comment: Critical Result(s) called to myles estrada at 02/02/2019 19:00 by catherine. Read back OK. [facility] CARDIAC ENZYMES Troponin-I 2.70 ng/mL 0.00 - 0.40 02/02/2019 Result Comment: Critical Result(s) called to myles estrada at 02/02/2019 18:08 by pj. Read back OK. [facility] CHEM PANEL Phosphorus 2.6 mg/dL 2.5 - 4.5 02/02/2019 [facility] CHEM PANEL Magnesium Lvl 1.9 mg/dL 1.8 - 2.4 02/02/2019 [facility] CHEM PANEL Lipase Lvl 43 unit/L 73 - 393 02/02/2019 [facility] CHEM PANEL eGFR 44 mL/min/1.73m2 02/02/2019 [...] Total 0.3 mg/dL 0.2 - 1.3 02/02/2019 [facility] CHEM PANEL Alk Phos 154 unit/L 39 - 136 02/02/2019 [facility] CHEM PANEL Total Protein 6.4 g/dL 6.4 - 8.4 02/02/2019 [facility] CHEM PANEL Albumin Lvl 2.7 g/dL 3.5 - 5.0 02/02/2019 [facility] CHEM PANEL Sodium Lvl 134 meq/L 135 - 145 02/02/2019 [facility] CHEM PANEL Glucose Lvl 121 mg/dL 70 - 99 02/02/2019 [facility] CHEM PANEL CO2 26 meq/L 24 - 32 02/02/2019 [facility] CHEM PANEL Calcium Lvl 8.8 mg/dL 8.5 - 10.5 02/02/2019 [facility] CHEM PANEL Creatinine Lvl 1.35 mg/dL 0.50 - 1.40 02/02/2019 [facility] CHEM PANEL BUN 29 mg/dL 7 - 22 02/02/2019 [facility] CHEM PANEL Potassium Lvl 4.2 meq/L 3.5 - 5.1 02/02/2019 [facility] CHEM PANEL Chloride Lvl 104 meq/L 95 - 109 02/02/2019 [facility] CHEM PANEL AST 23 unit/L 0 - 37 02/02/2019 [facility] CHEM PANEL ALT 14 unit/L 0 - 65 02/02/2019 [facility] CHEM PANEL A/G Ratio 0.7 0.7 - 1.6 02/02/2019 [facility] CHEM PANEL Globulin 3.7 g/dL 2.7 - 4.2 02/02/2019 [facility] CHEM PANEL B/C Ratio 21 6 - 25 02/02/2019 [facility] CHEM PANEL AGAP 8.2 meq/L 10.0 - 20.0 02/02/2019 [facility] Lymphocytes 32.8 % 20.0 - 40.0 02/02/2019 [facility] Basophils 0.8 % 0.0 - 1.0 02/02/2019 [facility] Eosinophils 0.2 % 0.0 - 4.0 02/02/2019 [facility] Monocytes 7.5 % 2.0 - 12.0 02/02/2019 [facility] Segs 58.7 % 45.0 - 75.0 02/02/2019 [facility] Basophils # 0.1 K/CMM 0.0 - 0.2 02/02/2019 [facility] Monocytes # 0.9 K/CMM 0.0 - 0.8 02/02/2019 [facility] Lymphocytes # 4.0 K/CMM 1.0 - 5.5 02/02/2019 [facility] Neutrophils # 7.2 K/CMM 1.5 - 8.1 02/02/2019 [facility] INR 1.09 0.85 - 1.17 02/02/2019 [facility] PT 13.9 s 12.0 - 14.7 02/02/2019 [facility] Chest/Abdomen/Pelvis wo IV contrast CT Chest/Abdomen/Pelvis [...] Alanis Crawford MD 02/02/19 17:28 FINAL REPORT [facility] Chest 1view DX Chest 1view DX [...] Taj Fontana MD 02/02/19 17:48 FINAL REPORT [facility] Brain wo contrast CT Brain wo [...] Alanis Crawford MD 02/02/19 17:28 FINAL REPORT [facility] Abdomen/Pelvis wo IV contrast CT Abdomen/Pelvis [...] Murphy Conti DO 08/29/18 18:01 FINAL REPORT [facility] Chest 2 views DX Chest 2 views DX Study: Chest 2 views DX 08/29/2018 1:23 PM CDT Patient Name: STEPHANIE CAMERON MR: [id number] : 1960; Age: 58 years y/o Female [...] Jacob Urrutia MD 08/29/18 14:27 FINAL REPORT [facility] DRUG SCREEN U Cocaine Scr Negative *NA* (06/12/18 1:54 PM) Negative 06/12/2018 [facility] DRUG SCREEN U Amph Scr Negative *NA* (06/12/18 1:54 PM) Negative 06/12/2018 [facility] DRUG SCREEN U Ciara Scr Negative *NA* (06/12/18 1:54 PM) Negative 06/12/2018 [facility] DRUG SCREEN U Benzodiaz Scr Negative *NA* (06/12/18 1:54 PM) Negative 06/12/2018 [facility] DRUG SCREEN U Phencyclidine Scr Negative *NA* (06/12/18 1:54 PM) Negative 06/12/2018 [facility] DRUG SCREEN U Cannab Scr Negative *NA* (06/12/18 1:54 PM) Negative 06/12/2018 [facility] DRUG SCREEN UDS Note See Note (06/12/18 1:54 PM) 06/12/2018 [facility] DRUG SCREEN U Opiate Scr Positive *ABN* (06/12/18 1:54 PM) Negative 06/12/2018 [facility] URINE AND STOOL UA Color Ltyellow 06/12/2018 [facility] URINE AND STOOL UA Urobilinogen <=1.0 mg/dL 0.1 - 1.0 06/12/2018 [facility] URINE AND STOOL UA Sq Epi [...] STOOL UA Spec Grav 1.008 <=1.030 06/12/2018 [facility] URINE AND STOOL UA pH 6.0 5.0 - 8.0 06/12/2018 [facility] URINE AND STOOL UA Protein Negative mg/dL Negative mg/dL 06/12/2018 [facility] URINE AND STOOL UA Turbidity Clear (06/12/18 1:54 PM) Clear 06/12/2018 [facility] URINE AND STOOL UA Blood Negative (06/12/18 1:54 PM) Negative 06/12/2018 [facility] URINE AND STOOL UA Bili Negative *NA* (06/12/18 1:54 PM) Negative 06/12/2018 [facility] CARDIAC ENZYMES Troponin-I null 0.00 - 0.40 06/12/2018 [facility] CARDIAC ENZYMES Total CK 38 unit/L - 06/12/2018 [facility] CARDIAC ENZYMES Troponin-I null 0.00 - 0.40 06/12/2018 [facility] CARDIAC ENZYMES Total CK 50 unit/L 12 - 06/12/2018 [facility] CARDIAC ENZYMES BNP 55 pg/mL <=100 pg/mL 06/11/2018 [facility] CARDIAC ENZYMES Troponin-I null 0.00 - 0.40 06/11/2018 [facility] ELECTROLYTES AGAP 12.7 meq/L 10.0 - 20.0 06/11/2018 [facility] ELECTROLYTES eGFR 61 mL/min/1.73m2 06/11/2018 Result [...] should be multiplied by the estimated BMI. [facility] ELECTROLYTES Calcium Lvl 8.9 mg/dL 8.5 - 10.5 06/11/2018 [facility] ELECTROLYTES Sodium Lvl 139 meq/L 135 - 145 06/11/2018 [facility] ELECTROLYTES Creatinine Lvl 1.03 mg/dL 0.50 - 1.40 06/11/2018 [facility] ELECTROLYTES Chloride Lvl 103 meq/L 95 - 109 06/11/2018 [facility] ELECTROLYTES Potassium Lvl 4.7 meq/L 3.5 - 5.1 06/11/2018 [facility] ELECTROLYTES CO2 28 meq/L 24 - 32 06/11/2018 [facility] ELECTROLYTES BUN 20 mg/dL 7 - 22 06/11/2018 [facility] ELECTROLYTES Glucose Lvl 189 mg/dL 70 - 99 06/11/2018 [facility] HEMATOLOGY Segs 68.0 % 45.0 - 75.0 06/11/2018 [facility] HEMATOLOGY Monocytes # 0.5 K/CMM 0.0 - 0.8 06/11/2018 [facility] HEMATOLOGY Eosinophils # 0.1 K/CMM 0.0 - 0.5 06/11/2018 [facility] HEMATOLOGY Lymphocytes # 2.8 K/CMM 1.0 - 5.5 06/11/2018 [facility] Monocytes 4.4 % 2.0 - 12.0 06/11/2018 [facility] HEMATOLOGY Basophils # 0.1 K/CMM 0.0 - 0.2 06/11/2018 [facility] HEMATOLOGY Neutrophils # 7.3 K/CMM 1.5 - 8.1 06/11/2018 [facility] HEMATOLOGY Eosinophils 1.1 % 0.0 - 4.0 06/11/2018 [facility] HEMATOLOGY Basophils 0.5 % 0.0 - 1.0 06/11/2018 [facility] Lymphocytes 26.0 % 20.0 - 40.0 06/11/2018 [facility] HEMATOLOGY Hct 32.6 % 36.0 - 48.0 06/11/2018 [facility] HEMATOLOGY MCV 79.1 fL 80.0 - 98.0 06/11/2018 [facility] MCH 25.7 pg 27.0 - 31.0 06/11/2018 [facility] MCHC 32.6 g/dL 32.0 - 36.0 06/11/2018 [facility] HEMATOLOGY RDW 19.4 % 11.5 - 14.5 06/11/2018 [facility] HEMATOLOGY Platelet 408 K/CMM 133 - 450 06/11/2018 [facility] MPV 7.4 fL 7.4 - 10.4 06/11/2018 [facility] Hgb 10.6 g/dL 12.0 - 16.0 06/11/2018 [facility] HEMATOLOGY WBC 10.8 K/CMM 3.7 - 10.4 06/11/2018 [facility] HEMATOLOGY RBC 4.13 M/CMM 4.20 - 5.40 06/11/2018 [facility] Carotid artery Doppler bilat US Carotid artery Doppler bilat US Patient Name: STEPHANIE CAMERON : 1960; Age: 58 years y/o Female MR: [id number] 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 Clinical Indication: - sob; Comparison: 11/16/2017 There is a right posterior 4th rib fracture, anterior right 3rd rib fracture and anterior right 5th rib fracture age uncertain. Cardiac and mediastinal structures are stable. No focal infiltrates within the lungs, no edema and no pneumothorax. SL: [id number] 06/11/2018 - - Read by: Magno Zhu MD Dictated Date/time: 06/11/18 15:06 Electronically Signed by: Magno Zhu MD 06/11/18 15:08 FINAL REPORT [facility] CHEM PANEL Magnesium Lvl 1.6 mg/dL 1.8 - 2.4 11/17/2017 [facility] CHEM PANEL eGFR 95 mL/min/1.73m2 11/17/2017 [...] A/G Ratio 0.8 0.7 - 1.6 11/17/2017 [facility] CHEM PANEL ALT 8 unit/L 0 - 65 11/17/2017 [facility] CHEM PANEL Albumin Lvl 2.5 g/dL 3.5 - 5.0 11/17/2017 [facility] CHEM PANEL Globulin 3.0 g/dL 2.7 - 4.2 11/17/2017 [facility] CHEM PANEL Alk Phos 122 unit/L 39 - 136 11/17/2017 [facility] CHEM PANEL Bili Total 0.3 mg/dL 0.2 - 1.3 11/17/2017 [facility] CHEM PANEL AST 7 unit/L 0 - 37 11/17/2017 [facility] CHEM PANEL Potassium Lvl 4.4 meq/L 3.5 - 5.1 11/17/2017 [facility] CHEM PANEL Sodium Lvl 137 meq/L 135 - 145 11/17/2017 [facility] CHEM PANEL Creatinine Lvl 0.72 mg/dL 0.50 - 1.40 11/17/2017 [facility] CHEM PANEL Glucose Lvl 243 mg/dL 70 - 99 11/17/2017 [facility] CHEM PANEL BUN 14 mg/dL 7 - 22 11/17/2017 [facility] CHEM PANEL Calcium Lvl 8.3 mg/dL 8.5 - 10.5 11/17/2017 [facility] CHEM PANEL Chloride Lvl 105 meq/L 95 - 109 11/17/2017 [facility] CHEM PANEL CO2 26 meq/L 24 - 32 11/17/2017 [facility] CHEM PANEL B/C Ratio 19 6 - 25 11/17/2017 [facility] CHEM PANEL AGAP 10.4 meq/L 10.0 - 20.0 11/17/2017 [facility] CHEM PANEL Lactic Acid Lvl 1.4 mMol/L 0.5 - 2.2 11/17/2017 [facility] HEMATOLOGY Basophils # 0.1 K/CMM 0.0 - 0.2 11/17/2017 [facility] HEMATOLOGY Eosinophils # 0.1 K/CMM 0.0 - 0.5 11/17/2017 [facility] HEMATOLOGY Monocytes # 0.6 K/CMM 0.0 - 0.8 11/17/2017 [facility] HEMATOLOGY Segs-Bands # 6.4 K/CMM 1.5 - 8.1 11/17/2017 [facility] HEMATOLOGY Basophils 0.8 % 0.0 - 1.0 11/17/2017 [facility] HEMATOLOGY Eosinophils 1.0 % 0.0 - 4.0 11/17/2017 [facility] HEMATOLOGY Monocytes 5.3 % 2.0 - 12.0 11/17/2017 [facility] HEMATOLOGY Lymphocytes 32.3 % 20.0 - 40.0 11/17/2017 [facility] HEMATOLOGY Segs 60.6 % 45.0 - 75.0 11/17/2017 [facility] HEMATOLOGY Lymphocytes # 3.4 K/CMM 1.0 - 5.5 11/17/2017 [facility] HEMATOLOGY Platelet 352 K/CMM 133 - 450 11/17/2017 [facility] HEMATOLOGY RDW 16.0 % 11.5 - 14.5 11/17/2017 [facility] HEMATOLOGY MPV 7.3 fL 7.4 - 10.4 11/17/2017 [facility] HEMATOLOGY MCHC 32.3 g/dL 32.0 - 36.0 11/17/2017 [facility] HEMATOLOGY MCH 28.1 pg 27.0 - 31.0 11/17/2017 [facility] HEMATOLOGY Hct 31.9 % 36.0 - 48.0 11/17/2017 [facility] HEMATOLOGY Hgb 10.3 g/dL 12.0 - 16.0 11/17/2017 [facility] HEMATOLOGY RBC 3.67 M/CMM 4.20 - 5.40 11/17/2017 [facility] HEMATOLOGY WBC 10.6 K/CMM 3.7 - 10.4 11/17/2017 [facility] HEMATOLOGY MCV 86.9 fL 80.0 - 98.0 11/17/2017 [facility] URINE AND STOOL UA Urobilinogen <=1.0 mg/dL 0.1 - 1.0 11/17/2017 [facility] URINE AND STOOL UA [place] Yeast Occasional /HPF None Seen /HPF 11/17/2017 [facility] URINE AND STOOL UA Bacteria Occasional /HPF None Seen /HPF 11/17/2017 [facility] URINE AND STOOL UA RBC 4 /HPF 0 - 2 11/17/2017 [facility] URINE AND STOOL UA WBC 16 /HPF 0 - 5 11/17/2017 [facility] URINE AND STOOL UA Sq Epi [...] Negative *NA* (11/16/17 11:20 PM) Negative 11/17/2017 [facility] CHEM PANEL Lactic Acid Lvl 2.7 mMol/L 0.5 - 2.2 11/17/2017 [facility] CARDIAC ENZYMES Total CK 83 unit/L 12 - 191 11/17/2017 [facility] CARDIAC ENZYMES CK MB 1.1 ng/mL 0.5 - 3.6 11/17/2017 [facility] CARDIAC ENZYMES Troponin-I null 0.00 - 0.40 11/17/2017 [facility] CARDIAC ENZYMES CK MB Index 1.3 0.0 - 2.5 11/17/2017 [facility] CHEM PANEL eGFR 60 mL/min/1.73m2 11/17/2017 [...] should be multiplied by the estimated BMI. [facility] CHEM PANEL A/G Ratio 0.8 0.7 - 1.6 11/17/2017 [facility] CHEM PANEL Sodium Lvl 140 meq/L 135 - 145 11/17/2017 [facility] CHEM PANEL Potassium Lvl 3.8 meq/L 3.5 - 5.1 11/17/2017 [facility] CHEM PANEL Chloride Lvl 103 meq/L 95 - 109 11/17/2017 [facility] CHEM PANEL CO2 28 meq/L 24 - 32 11/17/2017 [facility] CHEM PANEL Calcium Lvl 8.0 mg/dL 8.5 - 10.5 11/17/2017 [facility] CHEM PANEL Total Protein 6.2 g/dL 6.4 - 8.4 11/17/2017 [facility] CHEM PANEL ALT 9 unit/L 0 - 65 11/17/2017 [facility] CHEM PANEL Albumin Lvl 2.7 g/dL 3.5 - 5.0 11/17/2017 [facility] CHEM PANEL AST 9 unit/L 0 - 37 11/17/2017 [facility] CHEM PANEL B/C Ratio 13 6 - 25 11/17/2017 [facility] CHEM PANEL Globulin 3.5 g/dL 2.7 - 4.2 11/17/2017 [facility] CHEM PANEL Bili Total 0.2 mg/dL 0.2 - 1.3 11/17/2017 [facility] CHEM PANEL AGAP 12.8 meq/L 10.0 - 20.0 11/17/2017 [facility] CHEM PANEL Alk Phos 124 unit/L 39 - 136 11/17/2017 [facility] CHEM PANEL BUN 14 mg/dL 7 - 22 11/17/2017 [facility] CHEM PANEL Creatinine Lvl 1.05 mg/dL 0.50 - 1.40 11/17/2017 [facility] CHEM PANEL Glucose Lvl 107 mg/dL 70 - 99 11/17/2017 [facility] HEMATOLOGY PT 12.9 s 12.0 - 14.7 11/17/2017 [facility] HEMATOLOGY INR 0.97 0.85 - 1.17 11/17/2017 [facility] HEMATOLOGY PTT 32.6 s 22.9 - 35.8 11/17/2017 [facility] MCH 28.7 pg 27.0 - 31.0 11/17/2017 [facility] MCV 87.8 fL 80.0 - 98.0 11/17/2017 [facility] HEMATOLOGY Hct 34.6 % 36.0 - 48.0 11/17/2017 [facility] HEMATOLOGY RBC 3.94 M/CMM 4.20 - 5.40 11/17/2017 [facility] HEMATOLOGY WBC 10.3 K/CMM 3.7 - 10.4 11/17/2017 [facility] HEMATOLOGY Hgb 11.3 g/dL 12.0 - 16.0 11/17/2017 [facility] HEMATOLOGY MPV 7.3 fL 7.4 - 10.4 11/17/2017 [facility] HEMATOLOGY MCHC 32.7 g/dL 32.0 - 36.0 11/17/2017 [facility] HEMATOLOGY Platelet 369 K/CMM 133 - 450 11/17/2017 [facility] HEMATOLOGY RDW 15.9 % 11.5 - 14.5 11/17/2017 [facility] HEMATOLOGY Segs-Bands # 6.8 K/CMM 1.5 - 8.1 11/17/2017 [facility] HEMATOLOGY Lymphocytes # 2.7 K/CMM 1.0 - 5.5 11/17/2017 [facility] Eosinophils 0.9 % 0.0 - 4.0 11/17/2017 [facility] Basophils 0.7 % 0.0 - 1.0 11/17/2017 [facility] Monocytes 6.6 % 2.0 - 12.0 11/17/2017 [facility] Lymphocytes 25.7 % 20.0 - 40.0 11/17/2017 [facility] Segs 66.1 % 45.0 - 75.0 11/17/2017 [facility] Basophils # 0.1 K/CMM 0.0 - 0.2 11/17/2017 [facility] Eosinophils # 0.1 K/CMM 0.0 - 0.5 11/17/2017 [facility] Monocytes # 0.7 K/CMM 0.0 - 0.8 11/17/2017 [facility] Brain wo contrast CT Brain wo [...] consultation is suggested to better assess. SL: [id number] 11/16/2017 - - Read by: Carlin Trent MD Dictated Date/time: 11/17/17 00:19 Electronically Signed by: Carlin Trent MD 11/17/17 00:20 FINAL REPORT - - Read by: Leroy Chavez MD Dictated Date/time: 11/17/17 00:06 Electronically Signed by: Leroy Chavez MD 11/17/17 00:10 FINAL REPORT [facility] 1view DX Chest 1view DX EXAM: XR CHEST 1 VIEW DATE: 11/16/2017 6:52 PM [employer] INDICATION: Weakness. COMPARISON: CT chest dated 12/09/2017 [...] lung volumes without acute cardiopulmonary abnormality. SL: [id number] 11/16/2017 - - Read by: Magno Scruggs MD Dictated Date/time: 11/16/17 19:45 Electronically Signed by: Magno Scruggs MD 11/16/17 19:46 FINAL REPORT [facility] wo contrast CT Chest wo contrast [...] Date Comments Source Heart Rate 70 02/28/2019 [facility] Systolic (mm Hg) 131 02/28/2019 [facility] Diastolic (mm Hg) 67 02/28/2019 [facility] Temperature Oral (F) 98.6 F 02/28/2019 [facility] Heart Rate 70 02/28/2019 [facility] Respitory Rate 17 02/28/2019 [facility] Systolic (mm Hg) 107 02/28/2019 [facility] Diastolic (mm Hg) 67 02/28/2019 [facility] Respitory Rate 19 02/28/2019 [facility] Systolic (mm Hg) 115 02/28/2019 [facility] Diastolic (mm Hg) 60 02/28/2019 [facility] Heart Rate 71 02/28/2019 [facility] Temperature Oral (F) 98.2 F 02/28/2019 [facility] Temperature Oral (F) 98.4 F 02/28/2019 [facility] Respitory Rate 16 02/28/2019 [facility] Weight 104.545 02/28/2019 [facility] BMI Calculated 39.56 02/28/2019 [facility] Height 162.56 cm 02/28/2019 [facility] Height 162.56 cm 02/27/2019 [facility] BMI Calculated 39.36 02/27/2019 [facility] Weight 104 02/27/2019 [facility] Systolic (mm Hg) 98 02/06/2019 [facility] Diastolic (mm Hg) 84 02/06/2019 [facility] Respitory Rate 13 02/06/2019 [facility] Temperature Oral (F) 98.4 F 02/06/2019 [facility] Systolic (mm Hg) 140 02/06/2019 [facility] Diastolic (mm Hg) 78 02/06/2019 [facility] Respitory Rate 11 02/06/2019 [facility] Systolic (mm Hg) 149 02/06/2019 [facility] Diastolic (mm Hg) 80 02/06/2019 [facility] Respitory Rate 11 02/06/2019 [facility] Temperature Oral (F) 98.2 F 02/06/2019 [facility] Temperature Oral (F) 98.2 F 02/06/2019 [facility] Height 162.56 cm 02/03/2019 [facility] Weight 99.091 02/03/2019 [facility] BMI Calculated 37.5 02/03/2019 [facility] Height 157.48 cm 02/02/2019 [facility] BMI Calculated 37.02 02/02/2019 [facility] Weight 91.818 02/02/2019 [facility] Heart Rate 99 02/02/2019 [facility] Systolic (mm Hg) 140 07/17/2018 [facility] Diastolic (mm Hg) 62 07/17/2018 [facility] Respitory Rate 16 07/17/2018 [facility] Heart Rate 87 07/17/2018 [facility] Heart Rate 96 07/17/2018 [facility] Systolic (mm Hg) 148 07/17/2018 [facility] Diastolic (mm Hg) 78 07/17/2018 [facility] Respitory Rate 16 07/17/2018 [facility] BMI Calculated 36.98 07/14/2018 [facility] Weight 97.727 07/14/2018 [facility] Height 162.56 cm 07/14/2018 [facility] Respitory Rate 19 06/12/2018 [facility] Systolic (mm Hg) 109 06/12/2018 [facility] Diastolic (mm Hg) 71 06/12/2018 [facility] Heart Rate 81 06/12/2018 [facility] Temperature Oral (F) 98.3 F 06/12/2018 [facility] Temperature Oral (F) 98.8 F 06/12/2018 [facility] Heart Rate 90 06/12/2018 [facility] Respitory Rate 17 06/12/2018 [facility] Systolic (mm Hg) 143 06/12/2018 [facility] Diastolic (mm Hg) 62 06/12/2018 [facility] Heart Rate 78 06/12/2018 [facility] Respitory Rate 18 06/12/2018 [facility] Systolic (mm Hg) 114 06/12/2018 [facility] Diastolic (mm Hg) 54 06/12/2018 [facility] Temperature Oral (F) 98.4 F 06/12/2018 [facility] BMI Calculated 38.7 06/12/2018 [facility] Height 162.56 cm 06/12/2018 [facility] Weight 102.273 06/12/2018 [facility] Weight 102.273 06/11/2018 [facility] Height 162.56 cm 06/11/2018 [facility] BMI Calculated 38.7 06/11/2018 [facility] Systolic (mm Hg) 130 11/17/2017 [facility] Diastolic (mm Hg) 60 11/17/2017 [facility] Respitory Rate 14 11/17/2017 [facility] Systolic (mm Hg) 143 11/17/2017 [facility] Diastolic (mm Hg) 82 11/17/2017 [facility] Respitory Rate 27 11/17/2017 [facility] Respitory Rate 20 11/17/2017 [facility] Systolic (mm Hg) 125 11/17/2017 [facility] Diastolic (mm Hg) 58 11/17/2017 [facility] Temperature Oral (F) 98.4 F 11/17/2017 [facility] Temperature Oral (F) 98.6 F 11/17/2017 [facility] Temperature Oral (F) 98.1 F 11/17/2017 [facility] Height 162.56 cm 11/17/2017 [facility] Weight 99.5 11/17/2017 [facility] BMI Calculated 37.65 11/17/2017 [facility] Height 162.56 cm 11/17/2017 [facility] Heart Rate 84 11/17/2017 [facility] BMI Calculated 34.4 11/17/2017 [facility] Weight 90.909 11/17/2017 [facility] Encounters Location Location Details Encounter Type Encounter Number Reason For Visit Attending Provider ADM Date DC Date Status Source [facility] [place] [facility] [id number] Juan Rocha SISI 06/24/2015 06/25/2015 [facility] [place] [facility] [place] [facility] [id number] Basem Hamid 12/22/2015 12/23/2015 [facility] [place] [facility] [place] [facility] [id number] Carrington Brent 12/09/2016 12/10/2016 [facility] [place] [facility] Observation [id number] Akash Garcia 11/17/2017 11/17/2017 [facility] Observation [id number] Jered Sepulveda 06/11/2018 06/12/2018 [facility] [id number] Andrea Samuel 07/17/2018 07/18/2018 [facility] Inpatient [id number] Jermaine Wayne Jr 02/02/2019 02/06/2019 [facility] Observation [id number] Tin Ruiz 02/27/2019 02/28/2019 [facility] Procedures Procedure Code Date Perfomer Comments Source Abdominal hysterectomy [id number] [facility] Foot joint operations [id number] [facility] Abdominal hysterectomy [id number] [facility] Eye incision [id number] [facility] Foot joint operations [id number] [facility] Procedure [id number] [facility] Eye incision [id number] [facility] Placement of stent [id number] [facility] Procedure [id number] [facility]
[2019-03-15 16:32] LABS: BASOPHILS # (AUTO) 0.1 (0.0-0.1); BASOPHILS % 0.5 % (0.0-1.0); EOSINOPHILS # (AUTO) 0.1 (0.0-0.4); EOSINOPHILS % 0.7 % (0.0-6.0); HEMOGLOBIN 10.9 g/dL (12.0-16.0); LYMPHOCYTES # (AUTO) 4.6 (1.0-3.2); MEAN CORPUSCULAR HEMOGLOBIN 26.3 pg (28-32); MEAN CORPUSCULAR HGB CONC 32.1 g/dL (31-35); MEAN CORPUSCULAR VOLUME 82.1 fL (81-99); MONOCYTES # (AUTO) 0.5 (0.2-0.8); MONOCYTES % 4.5 % (4.4-11.3); NEUTROPHILS # (AUTO) 6.3 (2.1-6.9); NEUTROPHILS % 53.9 % (38.7-80.0); PLATELET COUNT 399 x10e3/uL (140-360); RED BLOOD COUNT 4.14 x10e6/uL (3.6-5.1); RED CELL DISTRIBUTION WIDTH 16.5 % (11.7-14.4)
[2019-03-15 16:54] LABS: ALANINE AMINOTRANSFERASE 9 IU/L (0-55); ALBUMIN 3.5 g/dL (3.5-5.0); ALKALINE PHOSPHATASE 156 IU/L (40-150); ANION GAP 15.9 mmol/L (8-16); BLOOD UREA NITROGEN 22 mg/dL (7-26); BUN/CREATININE RATIO 22 (6-25); CALCIUM 10.1 mg/dL (8.4-10.2); CARBON DIOXIDE 22 mmol/L (22-29); CHLORIDE 99 mmol/L (98-107); CREATINE KINASE 91 IU/L (29-168); EST GLOMERULAR FILTRATION RATE 57 ML/MIN (60-); GLUCOSE 186 mg/dL (74-118); POTASSIUM 4.9 mmol/L (3.5-5.1); SODIUM 132 mmol/L (136-145)
[2019-03-15 18:07] VITALS: BP 114/81
--- NOTE | 2019-03-15 18:10 | Diagnostic Imaging Report ---
A single frontal view of the chest. HISTORY: Chest pain, shortness of breath COMPARISON: Chest radiograph February 26, 2019. DISCUSSION: Portable technique, limits sensitivity of the exam. Soft tissue attenuation partially limits sensitivity of the exam. Overlying monitoring leads. Tubes/Lines: None Lungs and pleura: Interval increased patchy right infrahilar opacity. No definite pleural effusion or pneumothorax is identified. Heart and mediastinum: The cardiomediastinal silhouette appears unremarkable. Bones and soft tissues: Appear unremarkable, given this limited exam. IMPRESSION: Right infrahilar opacity, considerations include: atelectasis, pneumonia, and/or aspiration in the appropriate settings. Recommend short term follow up PA and lateral chest radiographs, in 6-8 weeks, to evaluate for resolution. Signed by: Dr. Buddy Fletcher D.O., M.M.M. on 03/15/2019 6:07 PM
[2019-03-15 18:59] LABS: EOSINOPHILS % (MANUAL) 1 % (0-7); LYMPHOCYTES % (MANUAL) 42 % (19-48); MONOCYTES % (MANUAL) 6 % (3.4-9.0); NEUTROPHILS % (MANUAL) 48 % (40-74)
== END 2019-03-15 18:14 | disposition home or self-care (01) ==
LOC: ER 15:49
DX: R07.89 Other chest pain (principal)
CPT/HCPCS: 36415; 71045; 80053; 82550; 82553; 84484; 85025; 93005; 99284

== ENCOUNTER 2019-06-03 21:51 | Emergency (ER) | payer MEDICARE, OTHER ==
[~2019-06-03] VITALS: Ht 162.6 cm; Wt 108.4 kg
--- OUTSIDE RECORDS SUMMARY | 2019-06-03 21:53 | XMS REPORT | Clinical Summary ---
Author Author [facility] Organization [facility] Address Unknown Phone Unavailable Care Team Providers Care Management Supervisor Name Role Phone Daren Dupree DO PCP Allergies Comments Active Allergy Reactions Severity Noted Date Irritates my asthma. Aspirin Other (See 11/12/2018 Comments) Iodine Anaphylaxis High 11/12/2018 "Irritates my asthma and hurts my stomach." Ibuprofen Other (See 11/12/2018 Comments) Medications Not on file Active Problems Not on file Encounters Care Team Description Date Type Specialty Nick Thomas MD Fall, initial encounter (Primary Dx); Abrasion of skin; Multiple contusions of trunk, initial encounter; Contusion of left knee, initial encounter; Contusion of left shoulder, initial encounter; Contusion of left hip, initial encounter 11/12/2018 Emergency Emergency Medicine 11/12/2018 Travel after 06/02/2018 Immunizations Name Dates Previously Given Next Due Tdap 11/12/2018 Social History Date Tobacco Use Types Packs/Day Years Used Current Every Day Smoker Cigarettes 1 Smokeless Tobacco: Never Used Alcohol Use Drinks/Week oz/Week Comments No Alcohol Habits Answer Date Recorded How often do you have a drink containing alcohol? Never 11/12/2018 How many drinks containing alcohol do you have on Not asked a typical day when you are drinking? How often do you have six or more drinks on one Not asked occasion? Sex Assigned at Date Recorded Not on file Industry Job Start Date Occupation Not on file Not on file Not on file Travel End Travel History Travel Start No recent travel history available. Last Filed Vital Signs Time Taken Vital Sign Reading 11/12/2018 5:05 PM [employer] Blood Pressure 126/69 11/12/2018 5:05 PM [employer] Pulse 90 11/12/2018 5:05 PM [employer] Temperature 36.9 C (98.4 F) 11/12/2018 5:05 PM [employer] Respiratory Rate 22 11/12/2018 5:05 PM [employer] Oxygen Saturation 94% - Inhaled Oxygen - Concentration 11/12/2018 5:04 PM [employer] Weight 96.2 kg (212 lb) 11/12/2018 5:04 PM [employer] Height 162.6 cm (5' 4") 11/12/2018 5:04 PM [employer] Body Mass Index 36.39 Plan of Treatment Health Maintenance Due Date Last Done Comments BREAST CANCER SCREENING 2012 COLONOSCOPY SCREENING 2012 SHINGLES VACCINES (#1) 2012 INFLUENZA VACCINE 05/31/2019 Procedures Comments Procedure Name Priority Date/Time Associated Diagnosis XR KNEE 4+ VW LEFT STAT 11/12/2018 6:21 PM [employer] XR HIP 2-3 VIEWS LEFT STAT 11/12/2018 6:21 PM [employer] XR RIBS W PA CHEST LEFT STAT 11/12/2018 6:21 PM [employer] XR SHOULDER 2+ VW LEFT STAT 11/12/2018 6:21 PM [employer] after 06/02/2018 Results * XR Hip 2-3 View Left (11/12/2018 6:21 PM [employer]) Specimen Narrative Performed At EXAMINATION:XR HIP 2-3 VIEWS LEFT [facility] INDICATION:Pain IMPRESSION: 3 views of the left hip were obtained. No radiographically visible acute fracture of the left hip. Mild left hip osteoarthrosis. Degeneration of the pubic symphysis. Procedure Note Interface, Radiology Results Incoming - 11/12/2018 6:30 PM [employer] EXAMINATION: XR HIP 2-3 VIEWS LEFT INDICATION: Pain IMPRESSION: 3 views of the left hip were obtained. No radiographically visible acute fracture of the left hip. Mild left hip osteoarthrosis. Degeneration of the pubic symphysis. Performing Organization Address City/State/Zipcode Phone Number [facility] [address] [place] [address] * XR Knee 4+ Vw Left (11/12/2018 6:21 PM [employer]) Specimen Narrative Performed At EXAMINATION: XR KNEE 4VW LEFT [facility] INDICATION: fall COMPARISON: None IMPRESSION: 4 views of the left knee were obtained. No radiographically visible acute fracture or dislocation. Mild tricompartmental osteoarthrosis of the knee. 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 Small knee joint effusion. [facility]-[id number] Procedure Note Interface, Radiology Results Incoming - 11/12/2018 6:35 PM [employer] EXAMINATION: XR KNEE 4 VW LEFT INDICATION: fall COMPARISON: None IMPRESSION: 4 views of the left knee were obtained. No radiographically visible acute fracture or dislocation. Mild tricompartmental osteoarthrosis of the knee. 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 Small knee joint effusion. [facility]-[id number] Performing Organization Address [facility] Phone Number [facility] [address] [place] [address] * XR Shoulder 2+ Vw Left (11/12/2018 6:21 PM [employer]) Specimen Narrative Performed At EXAMINATION: XR SHOULDER 2VW LEFT [facility] INDICATION: fall COMPARISON: None IMPRESSION: 4 views of the left shoulder were obtained. No radiographically visible acute fracture or evidence of dislocation. Type II acromion with mild to moderate acromioclavicular and mild glenohumeral osteoarthrosis. Cystic change in the greater tuberosity of the humerus can be seen with underlying rotator cuff disease and correlated. [facility]-[id number] Procedure Note Interface, Radiology Results - 11/12/2018 6:29 PM [employer] EXAMINATION: XR SHOULDER 2 VW LEFT INDICATION: fall COMPARISON: None IMPRESSION: 4 views of the left shoulder were obtained. No radiographically visible acute fracture or evidence of dislocation. Type II acromion with mild to moderate acromioclavicular and mild glenohumeral osteoarthrosis. Cystic change in the greater tuberosity of the humerus can be seen with underlying rotator cuff disease and correlated. [facility]-[id number] Performing Organization Address [facility]/[place] Phone Number [facility] [address] [place] [address] * XR Ribs W Pa Chest Left (11/12/2018 6:21 PM [employer]) Specimen Narrative Performed At EXAMINATION: XR RIBS W PA CHEST LEFT [facility] INDICATION: fall COMPARISON: None IMPRESSION: No radiographically visible acute displaced left rib fracture. Heart size is within normal limits. No focal infiltrate, effusion, or pneumothorax. If symptoms persist, consider chest CT. [facility]-[id number] Procedure Note Hm Interface, Radiology Results Incoming - 11/12/2018 6:33 PM [employer] EXAMINATION: XR RIBS W PA CHEST LEFT INDICATION: fall COMPARISON: None IMPRESSION: No radiographically visible acute displaced left rib fracture. Heart size is within normal limits. No focal infiltrate, effusion, or pneumothorax. If symptoms persist, consider chest CT. [facility]-[id number] Performing Organization Address City/State/Zipcode Phone Number [facility] [address] [place] [address] after 06/02/2018 Insurance Type Payer Benefit Subscriber ID Effective Phone Address Plan / Dates Group HMO [facility] MEDICARE [facility] DUAL xxxxxxxxx 2017-P COMPLETE resent [facility] Advance Directives Patient has advance care planning documents on file. For more information, shani pedraza contact: Ramesh Robles [address] [place] [address]
--- OUTSIDE RECORDS SUMMARY | 2019-06-03 21:53 | XMS REPORT | Continuity of Care Document ---
Author Author [facility] Address [address] [place] [address] ;ext= Care Team Providers Care Geospatial Information Technologist Name Role Phone BRITTANEY MANRIQUEZ Admphys BRITTANEY MANRIQUEZ Att[facility] Admission Diagnosis Code Admission Diagnosis Date 29876170 Chest pain Social History Element Description Code Description Smoking Status Code System Start Date End Date Smoking Status [id number] Heavy tobacco smoker SNOMED-CT Problems Code Code System Problem Name Start Date End Date Status 11922175 SNOMED-CT Chronic obstructive lung disease Unknown Active 27722417 SNOMED-CT Hypertensive disorder Unknown Active 38310884 SNOMED-CT Diabetes mellitus type 2 Unknown Active Medications RxNorm Medication Dose Route Instructions Indications Start Date End Date Status 435 Albuterol 2 puff Inhalation inhaled every day (administer with spacer;) Active 789675 Clonazepam 1 MG Oral Tablet 1 milligram Oral orally 3 times per day as needed. anxiety Active 848889 clopidogrel 75 MG Oral Tablet 75 milligram Oral orally every day Active 4493 Fluoxetine 20 milligram Oral orally every day Active 457765 Fluoxetine 40 MG Oral Capsule 40 milligram Oral orally every day Active 08680 gabapentin 300 milligram Oral orally 3 times per day Active 993353 insulin detemir 32 unit Subcutaneous subcutaneously 2 times per day (administer with morning and evening meals;) Active 17709 Lisinopril 2.5 milligram Oral orally every day Active 032473 montelukast 10 MG Oral Tablet 10 milligram Oral orally every day Active 949200 Omeprazole 20 MG Delayed Release Oral Tablet 40 milligram Oral orally every day Active 342207 Trazodone Hydrochloride 100 MG Oral Tablet 100 milligram Oral orally every day at bedtime as needed. insomnia Active Allergies Code Code System Allergy Substance Type Reaction Severity Start Date End Date Status 1191 RXNorm aspirin Drug allergy Unknown Active Results Laboratory Results Order: TROPONIN I QUANTITATIVE LOINC Test Result Flag Range Unit Date 1Troponin-I <0.012 0.000-0.034 ng/ml 01/10/2018 16:44 Note: The 99th Percentile URL is 0.034 ng/mL. The Joint Society of Cardiology/[employer] College of Cardiology (ESC/ACC) and the National Academy of Clinical Biochemistry Standards of Laboratory Practices (NACB) recommends that the diagnosis of AMI includes the presence of clinical history suggestive of Acute Coronary Syndrome (ACS) and a maximum concentration of cardiac troponin exceeding the 99th percentile of a normal reference population [upper reference limit (URL)] on at least one occasion during the first 24 hours after the clinical event. * Performing Lab Footnotes:* [address] [place] [address] - [id number] - [address] [place] [address] ESTRELLA - MD: DIRECTOR JELENA DUBON Order: CBC PLATELET AUTO DIFF LOINC Test Result Flag Range Unit Date 1Leukocytes^^corrected for nucleated erythrocytes:NCnc:Pt:Bld:Qn:Automated count 14 H 4.80-10.80 10^3/ul 01/10/2018 14:45 789-8 1Erythrocytes:NCnc:Pt:Bld:Qn:Automated count 4.31 4.20-5.40 10^6/ul 01/10/2018 14:45 718-7 1Hemoglobin:MCnc:Pt:Bld:Qn 11.1 L 12.0-14.0 gm/dl 01/10/2018 14:45 4544-3 1Hematocrit:VFr:Pt:Bld:Qn:Automated count 36 L 37.0-47.0 % 01/10/2018 14:45 787-2 1Erythrocyte mean corpuscular volume:EntVol:Pt:RBC:Qn:Automated count 83.5 81.0-99.0 fL 01/10/2018 14:45 785-6 1Erythrocyte mean corpuscular hemoglobin:EntMass:Pt:RBC:Qn:Automated count 25.8 L 27.0-31.0 pg 01/10/2018 14:45 786-4 1Erythrocyte mean corpuscular hemoglobin concentration:MCnc:Pt:RBC:Qn:Automated count 30.8 L 33.0-37.0 gm/dl 01/10/2018 14:45 788-0 1Erythrocyte distribution width:Ratio:Pt:RBC:Qn:Automated count 16.5 H 11.5-14.5 % 01/10/2018 14:45 777-3 1Platelets:NCnc:Pt:Bld:Qn:Automated count 426 H 130-400 10^3/ul 01/10/2018 14:45 08234-8 1Platelet mean volume:EntVol:Pt:Bld:Qn:Automated count 10.1 A 7.4-10.4 fL 01/10/2018 14:45 770-8 1Neutrophils/100 leukocytes:NFr:Pt:Bld:Qn:Automated count 63.3 42.0-75.0 % 01/10/2018 14:45 736-9 1Lymphocytes/100 leukocytes:NFr:Pt:Bld:Qn:Automated count 29.7 13.0-42.0 % 01/10/2018 14:45 5905-5 1Monocytes/100 leukocytes:NFr:Pt:Bld:Qn:Automated count 5.4 4.0-14.0 % 01/10/2018 14:45 713-8 1Eosinophils/100 leukocytes:NFr:Pt:Bld:Qn:Automated count 0.7 L 1.0-3.0 % 01/10/2018 14:45 706-2 1Basophils/100 leukocytes:NFr:Pt:Bld:Qn:Automated count 0.5 L 1.0-3.0 % 01/10/2018 14:45 1IG% 0.4 0.0-0.4 % 01/10/2018 14:45 * Performing Lab Footnotes:* [address] [place] [address] - [id number] - [address] [place] [address] [address] [place] [address] ESTRELLA Best MD: DIRECTOR JELENA DUBON Order: CKMB LOINC Test Result Flag Range Unit Date 1CKMB 2.02 0.00-2.37 ng/ml 01/10/2018 14:45 * Performing Lab Footnotes:* [facility] [id number] - [address] [place] [address] ESTRELLA Best MD: DIRECTOR JELENA DUBON Order: CMP COMPREHENSIVE METABOLIC PANEL LOINC Test Result Flag Range Unit Date 1Glucose 86 75-110 mg/dl 01/10/2018 14:45 1BUN 28 H 6.0-17.0 mg/dl 01/10/2018 14:45 1Creatinine 0.8 0.4-1.2 mg/dl 01/10/2018 14:45 1Sodium 142 137-145 mmol/l 01/10/2018 14:45 1Potassium 4.5 3.5-5.0 mmol/l 01/10/2018 14:45 1Chloride 99 98-107 mmol/l 01/10/2018 14:45 1CO2 32 H 22-30 mmol/l 01/10/2018 14:45 1Anion Gap 12 01/10/2018 14:45 1Calcium 9.5 8.4-10.2 mg/dl 01/10/2018 14:45 1T Protein 7.4 5.1-8.7 gm/dl 01/10/2018 14:45 1Albumin 3.9 3.5-4.6 gm/dl 01/10/2018 14:45 1A/G Ratio 1.1 1.1-2.2 % 01/10/2018 14:45 1AST (SGOT) 31 11-36 U/L 01/10/2018 14:45 1ALT (SGPT) 15 11-40 U/L 01/10/2018 14:45 1Alkaline Phos 115 H 47-114 U/L 01/10/2018 14:45 1Total Bilirubin 0.5 0.2-1.2 mg/dl 01/10/2018 14:45 1Globulin 3.5 2.3-3.5 gm/dl 01/10/2018 14:45 1Calcium, Corrected 9.6 8.4-10.2 mg/dl 01/10/2018 14:45 Note: Various formulas exist for corrected serum calcium results, each yielding different values. This corrected result was based on the formula: Corrected Calcium=SerumCalcium + [0.8 * ( 4 - SerumAlbumin)] 1EGFR if >60 mL/min/1.73m^2 01/10/2018 14:45 1EGFR if Non- >60 mL/min/1.73m^2 01/10/2018 14:45 Note: Estimated Glomerular Filtration Rate (eGFR) Reference Intervals Decision Points for 18 years and older and average body mass: >=60 Does not exclude kidney disease. 30 - 59 Suggests moderate chronic kidney disease and indicates the need for further investigation including assessment of proteinuria and cardiovascular factors. < 30 Usually indicates a need for referral for assessment and management of chronic kidney failure. * Performing Lab Footnotes:* [address] [place] [address] - [id number] - [address] [place] [address] ESTRELLA - : DIRECTOR JELENA DUBON Order: CPK LOINC Test Result Flag Range Unit Date 1CPK 151 H 30-135 U/L 01/10/2018 14:45 * Performing Lab Footnotes:* [address] [place], [place] [id number] [place] [address] ESTRELLA Best MD: DIRECTOR JELENA DUBON Order: PRO BNP B - NATRIURETIC PEPTIDE LOINC Test Result Flag Range Unit Date 1Pro-BNP(B-Peptide) 163 H 0-125 pg/ml 01/10/2018 14:45 * Performing Lab Footnotes:* [address] [place], [place] [id number] [place] [address] ESTRELLA Best MD: DIRECTOR JELENA DUBON Radiology Results Order: [id number] XR CHEST 2 PA LATERAL* Exam Completion Date:01/10/2018 13:52 EXAMINATION: XR CHEST 2 PA LATERAL INDICATION: Chest pain.COMPARISON: None. FINDINGS:TUBES and LINES: None.LUNGS: Mild patchy density in the right lung base may reflect subsegmentalatelectasis. There is no evidence of pneumonia or pulmonary edema.PLEURA: No pleural effusion or pneumothorax.HEART AND MEDIASTI NUM: The cardiomediastinal silhouette is unremarkable. BONES AND SOFT TISSUE S: No acute osseous lesion. Soft tissues areunremarkable.UPPER ABDOMEN: No rachel e air under the diaphragm. IMPRESSION: Right basilar subsegmental atelectasis .This final report was electronically signed by Dr Christina Rey MD 01/10/20182:3 1 PMDictated By: CHRISTINA REYDate: 01/10/2018 14:37 Vital Signs Vitals Value Date Body Temperature 98.3 F 01/10/2018 Respiratory Rate 18 01/10/2018 O2% BldC Oximetry 98 01/10/2018 BP Systolic 139 mmHg 01/10/2018 BP Diastolic 82 mmHg 01/10/2018 Height 65 in 01/10/2018 Weight Measured 230 lbs 01/10/2018 BSA (Body Surface Area) 2.79596 01/10/2018 BMI (Body Mass Index) 38.3 01/10/2018 Plan of Care * No data in the system Procedures Code Code System Procedure Name Target Site Date of Procedure XR CHEST 2 PA LATERAL 01/10/2018 14:37 [id number] SNOMED Hysterectomy Unknown Encounters Date Code Diagnosis Status (ICD10) - M940 CHONDROCOSTAL JUNCTION SYND TIETZE Active Immunizations Vaccine Code Code System Vaccine Name Date Status 141 CVX Influenza, seasonal, injectable Not given (patient objection) 33 CVX pneumococcal polysaccharide vaccine Not given (patient objection) Functional Status * No data in the system Hospital Discharge Instructions * Discharge Instructions 2* Discharge Diagnosis* COSTOCHONDRITIS * Important Information* Consult your physician or return to the Emergency Department immediately if worse, if not better as expected, or if any problems arise. * Follow Up Care* Yes * Important Information* Please understand that you have received care only on an emergency basis. If your condition does not improve, you should call your personal physician for follow-up care. If you do not have a physician, you may call the referred physician listed. * If you have questions about your care or these discharge instructions, you may call the Emergency Department. Please take your discharge paperwork with you to any follow-up appointments. * Follow Up Care* Patient To Schedule * Follow-Up With:* Primary Care Physician * Follow-Up Notes:* FOLLOW UP WITH YOUR PRIMAR PHYSICIAN IN 1-2 DAYS * Activity Level* As tolerated, unrestricted * Diet* Cardiac * Prescriptions Given Via:* N/A * Patient Teaching* Patient education provided * Disease Process * Change in Care * Procedures/Treatments * Pain Control * Activities
[2019-06-03] MEDS ORDERED: HYDROCODONE/APAP 10MG-325MG TAB PO ONE (22:45)
[2019-06-03] MEDS ORDERED: FUROSEMIDE 40 MG TAB PO ONE (22:45)
[2019-06-03 23:31] VITALS: BP 122/85
== END 2019-06-03 23:45 | disposition home or self-care (01) ==
LOC: ER 21:51
DX: M25.571 Pain in right ankle and joints of right foot (principal); I50.9 Heart failure, unspecified; R60.9 Edema, unspecified
CPT/HCPCS: 99283

== ENCOUNTER 2019-06-19 13:06 | Emergency (ER) | payer MEDICARE, OTHER ==
[~2019-06-19] VITALS: Ht 162.6 cm; Wt 108.4 kg
--- OUTSIDE RECORDS SUMMARY | 2019-06-19 13:12 | XMS REPORT | Clinical Summary ---
Author Author [facility] Organization [facility] Address Unknown Phone Unavailable Care Team Providers Care Digital Media Manager Name Role Phone Daren Dupree DO PCP [...] 11/12/2018 Emergency Emergency Medicine 11/12/2018 Travel after 06/18/2018 Immunizations Name Administration Dates Next Due Tdap 11/12/2018 Social History Date Tobacco Use Types Packs/Day Years Used Current Every Day Smoker Cigarettes 1 Smokeless Tobacco: Never Used Drinks/Week oz/Week Comments Alcohol Use No Alcohol Habits Answer Date Recorded How [...] travel history available. Last Filed Vital Signs Reading Time Taken Comments Vital Sign 126/69 11/12/2018 5:05 PM TELETYPEWRITER OPERATOR Blood Pressure 90 11/12/2018 5:05 PM TELETYPEWRITER OPERATOR Pulse 36.9 C (98.4 F) 11/12/2018 5:05 PM TELETYPEWRITER OPERATOR Temperature 22 11/12/2018 5:05 PM TELETYPEWRITER OPERATOR Respiratory Rate 94% 11/12/2018 5:05 PM TELETYPEWRITER OPERATOR Oxygen Saturation - - Inhaled Oxygen Concentration 96.2 kg (212 lb) 11/12/2018 5:04 PM TELETYPEWRITER OPERATOR Weight 162.6 cm (5' 4") 11/12/2018 5:04 PM TELETYPEWRITER OPERATOR Height 36.39 11/12/2018 5:04 PM TELETYPEWRITER OPERATOR Body Mass Index Plan of Treatment Health Maintenance Due Date Last Done Comments BREAST CANCER SCREENING 2012 COLONOSCOPY SCREENING 2012 SHINGLES VACCINES (#1) 2012 INFLUENZA VACCINE 05/31/2019 Procedures Comments Procedure Name Priority Date/Time Associated Diagnosis XR KNEE 4+ VW LEFT STAT 11/12/2018 6:21 PM TELETYPEWRITER OPERATOR XR HIP 2-3 VIEWS LEFT STAT 11/12/2018 6:21 PM TELETYPEWRITER OPERATOR XR RIBS W PA CHEST LEFT STAT 11/12/2018 6:21 PM TELETYPEWRITER OPERATOR XR SHOULDER 2+ VW LEFT STAT 11/12/2018 6:21 PM TELETYPEWRITER OPERATOR after 06/18/2018 Results * XR Hip 2-3 View Left (11/12/2018 6:21 PM TELETYPEWRITER OPERATOR) Specimen Narrative Performed At EXAMINATION:XR HIP 2-3 VIEWS LEFT [facility] INDICATION:Pain IMPRESSION: 3 views of the left hip were obtained. No radiographically visible acute fracture of the left hip. Mild left hip osteoarthrosis. Degeneration of the pubic symphysis. Procedure Note Interface, Radiology Results Incoming - 11/12/2018 6:30 PM TELETYPEWRITER OPERATOR EXAMINATION: XR HIP 2-3 VIEWS LEFT INDICATION: Pain IMPRESSION: 3 views of the left hip were obtained. No radiographically visible acute fracture of the left hip. Mild left hip osteoarthrosis. Degeneration of the pubic symphysis. Performing Organization Address City/State/Zipcode Phone Number [facility] [address] [place] [address] * XR Knee 4+ Vw Left (11/12/2018 6:21 PM TELETYPEWRITER OPERATOR) Specimen Narrative Performed At EXAMINATION: XR KNEE 4VW LEFT [facility] INDICATION: fall COMPARISON: None IMPRESSION: 4 views of the left knee were obtained. No radiographically visible acute fracture or dislocation. Mild tricompartmental osteoarthrosis of the knee. 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 Small knee joint effusion. [facility]-[id number] Procedure Note Interface, Radiology Results Incoming - 11/12/2018 6:35 PM TELETYPEWRITER OPERATOR EXAMINATION: XR KNEE 4 VW LEFT INDICATION: fall COMPARISON: None IMPRESSION: 4 views of the left knee were obtained. No radiographically visible acute fracture or dislocation. Mild tricompartmental osteoarthrosis of the knee. 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 Small knee joint effusion. [id number] Performing Organization Address [facility] Phone Number [facility] [address] [place] [address] * XR Shoulder 2+ Vw Left (11/12/2018 6:21 PM TELETYPEWRITER OPERATOR) Specimen Narrative Performed At EXAMINATION: XR SHOULDER 2VW LEFT [facility] INDICATION: fall COMPARISON: None IMPRESSION: 4 views of the left shoulder were obtained. No radiographically visible acute fracture or evidence of dislocation. Type II acromion with mild to moderate acromioclavicular and mild glenohumeral osteoarthrosis. Cystic change in the greater tuberosity of the humerus can be seen with underlying rotator cuff disease and correlated. [id number] Procedure Note Interface, Radiology Results - 11/12/2018 6:29 PM TELETYPEWRITER OPERATOR EXAMINATION: XR SHOULDER 2 VW LEFT INDICATION: fall COMPARISON: None IMPRESSION: 4 views of the left shoulder were obtained. No radiographically visible acute fracture or evidence of dislocation. Type II acromion with mild to moderate acromioclavicular and mild glenohumeral osteoarthrosis. Cystic change in the greater tuberosity of the humerus can be seen with underlying rotator cuff disease and correlated. [id number] Performing Organization Address [facility]/[employer] Phone Number [facility] [address] [place] [address] * XR Ribs W Pa Chest Left (11/12/2018 6:21 PM TELETYPEWRITER OPERATOR) Specimen Narrative Performed At EXAMINATION: XR RIBS W PA CHEST LEFT [facility] INDICATION: fall COMPARISON: None IMPRESSION: No radiographically visible acute displaced left rib fracture. Heart size is within normal limits. No focal infiltrate, effusion, or pneumothorax. If symptoms persist, consider chest CT. [id number] Procedure Note Interface, Radiology Results Incoming - 11/12/2018 6:33 PM TELETYPEWRITER OPERATOR EXAMINATION: XR RIBS W PA CHEST LEFT INDICATION: fall COMPARISON: None IMPRESSION: No radiographically visible acute displaced left rib fracture. Heart size is within normal limits. No focal infiltrate, effusion, or pneumothorax. If symptoms persist, consider chest CT. [id number] Performing Organization Address City/State/Zipcode Phone Number [facility] [address] [place] [address] after 06/18/2018 Insurance Type Payer Benefit Subscriber ID Effective Phone Address Plan / Dates Group O [facility] MEDICARE [facility] DUAL xxxxxxxxx 2017-P COMPLETE resent [facility] Advance Directives For more information, please contact: [phone] Patient Director Of In Service Education Explanation Type Date Recorded Advance Directives, 11/12/2018 6:46 PM Living Will and Medical Power of Manager Applied
[2019-06-19] MEDS ORDERED: ACETAMINOPHEN 325 MG TAB PO ONE (13:30)
[2019-06-19] MEDS ORDERED: DIPHENHYDRAMINE HCL 25 MG CAP PO ONE (13:30)
[2019-06-19] MEDS ORDERED: DEXAMETHASONE 10MG/ML PF INJ IV ONE (13:30)
[2019-06-19] MEDS ORDERED: DEXAMETHASONE SOD PHOS 10 MG/1 ML VIAL IM ONE (14:30)
[2019-06-19] MEDS ORDERED: DEXAMETHASONE SOD PHOS 10 MG/1 ML VIAL ONE (14:44)
[2019-06-19] MEDS ORDERED: PEPCID20 MG PO (15:22)
[2019-06-19] MEDS ORDERED: HYDROXYZINE HCL25 MG PO (15:22)
== END 2019-06-19 15:45 | disposition home or self-care (01) ==
LOC: ER 13:06
DX: L23.9 Allergic contact dermatitis, unspecified cause (principal); I11.0 Hypertensive heart disease with heart failure; I50.9 Heart failure, unspecified; E11.9 Type 2 diabetes mellitus without complications; J45.909 Unspecified asthma, uncomplicated; F41.9 Anxiety disorder, unspecified; F32.9 Major depressive disorder, single episode, unspecified; F17.200 Nicotine dependence, unspecified, uncomplicated; M54.9 Dorsalgia, unspecified; G89.29 Other chronic pain; K21.9 Gastro-esophageal reflux disease without esophagitis; Z79.02 Long term (current) use of antithrombotics/antiplatelets; Z79.4 Long term (current) use of insulin; Z91.041 Radiographic dye allergy status
CPT/HCPCS: 99282; J1100

== ENCOUNTER 2019-07-03 15:01 | Emergency (ER) | payer MEDICARE, OTHER ==
[~2019-07-03] VITALS: Ht 162.6 cm; Wt 108.4 kg
[~2019-07-03 15:01] MED LIST changes: +PEPCID20 MG PO
--- OUTSIDE RECORDS SUMMARY | 2019-07-03 15:04 | XMS REPORT | Clinical Summary ---
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 Name Role Phone Daren Dupree DO PCP [...] 11/12/2018 Emergency Emergency Medicine 11/12/2018 Travel after 07/02/2018 Immunizations Name Administration Dates Next Due Tdap [...] Comments Vital Sign 126/69 11/12/2018 5:05 PM GYM ATTENDANT Blood Pressure 90 11/12/2018 5:05 PM GYM ATTENDANT Pulse 36.9 C (98.4 F) 11/12/2018 5:05 PM GYM ATTENDANT Temperature 22 11/12/2018 5:05 PM GYM ATTENDANT Respiratory Rate 94% 11/12/2018 5:05 PM GYM ATTENDANT Oxygen Saturation - - Inhaled Oxygen Concentration 96.2 kg (212 lb) 11/12/2018 5:04 PM GYM ATTENDANT Weight 162.6 cm (5' 4") 11/12/2018 5:04 PM GYM ATTENDANT Height 36.39 11/12/2018 5:04 PM GYM ATTENDANT Body Mass Index Plan of Treatment Health Maintenance Due Date Last Done Comments CERVICAL CANCER SCREENING 1983 BREAST CANCER SCREENING 2012 COLONOSCOPY SCREENING 2012 SHINGLES VACCINES (#1) 2012 INFLUENZA VACCINE 05/31/2019 Procedures Comments Procedure Name Priority Date/Time Associated Diagnosis XR KNEE 4+ VW LEFT STAT 11/12/2018 6:21 PM GYM ATTENDANT XR HIP 2-3 VIEWS LEFT STAT 11/12/2018 6:21 PM GYM ATTENDANT XR RIBS W PA CHEST LEFT STAT 11/12/2018 6:21 PM GYM ATTENDANT XR SHOULDER 2+ VW LEFT STAT 11/12/2018 6:21 PM GYM ATTENDANT after 07/02/2018 Results * XR Hip 2-3 View Left (11/12/2018 6:21 PM GYM ATTENDANT) Specimen Narrative Performed At EXAMINATION:XR HIP 2-3 VIEWS LEFT [facility] INDICATION:Pain IMPRESSION: 3 views of the left hip were obtained. No radiographically visible acute fracture of the left hip. Mild left hip osteoarthrosis. Degeneration of the pubic symphysis. Procedure Note Interface, Radiology Results Incoming - 11/12/2018 6:30 PM GYM ATTENDANT EXAMINATION: XR HIP 2-3 VIEWS LEFT INDICATION: Pain IMPRESSION: 3 views of the left hip were obtained. No radiographically visible acute fracture of the left hip. Mild left hip osteoarthrosis. Degeneration of the pubic symphysis. Performing Organization Address City/State/Zipcode Phone Number [facility] [address] [place] [address] * XR Knee 4+ Vw Left (11/12/2018 6:21 PM GYM ATTENDANT) Specimen Narrative Performed At EXAMINATION: XR KNEE 4VW LEFT [facility] INDICATION: fall COMPARISON: None IMPRESSION: 4 views of the left knee were obtained. No radiographically visible acute fracture or dislocation. Mild tricompartmental osteoarthrosis of the knee. 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 Small knee joint effusion. [facility]-[id number] Procedure Note Interface, Radiology Results Incoming - 11/12/2018 6:35 PM GYM ATTENDANT EXAMINATION: XR KNEE 4 VW LEFT INDICATION: fall COMPARISON: None IMPRESSION: 4 views of the left knee were obtained. No radiographically visible acute fracture or dislocation. Mild tricompartmental osteoarthrosis of the knee. 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 Small knee joint effusion. [id number] Performing Organization Address [facility]/[employer] Phone Number [facility] [address] [place] [address] * XR Shoulder 2+ Vw Left (11/12/2018 6:21 PM GYM ATTENDANT) Specimen Narrative Performed At EXAMINATION: XR SHOULDER 2VW LEFT [facility] INDICATION: fall COMPARISON: None IMPRESSION: 4 views of the left shoulder were obtained. No radiographically visible acute fracture or evidence of dislocation. Type II acromion with mild to moderate acromioclavicular and mild glenohumeral osteoarthrosis. Cystic change in the greater tuberosity of the humerus can be seen with underlying rotator cuff disease and correlated. [facility]-[id number] Procedure Note Interface, Radiology Results Incoming - 11/12/2018 6:29 PM GYM ATTENDANT EXAMINATION: XR SHOULDER 2 VW LEFT INDICATION: fall COMPARISON: None IMPRESSION: 4 views of the left shoulder were obtained. No radiographically visible acute fracture or evidence of dislocation. Type II acromion with mild to moderate acromioclavicular and mild glenohumeral osteoarthrosis. Cystic change in the greater tuberosity of the humerus can be seen with underlying rotator cuff disease and correlated. [id number] Performing Organization Address [facility]/[employer] Phone Number [facility] [address] [place] [address] * XR Ribs W Pa Chest Left (11/12/2018 6:21 PM GYM ATTENDANT) Specimen Narrative Performed At EXAMINATION: XR RIBS W PA CHEST LEFT [facility] INDICATION: fall COMPARISON: None IMPRESSION: No radiographically visible acute displaced left rib fracture. Heart size is within normal limits. No focal infiltrate, effusion, or pneumothorax. If symptoms persist, consider chest CT. [id number] Procedure Note Hm Interface, Radiology Results Incoming - 11/12/2018 6:33 PM GYM ATTENDANT EXAMINATION: XR RIBS W PA CHEST LEFT INDICATION: fall COMPARISON: None IMPRESSION: No radiographically visible acute displaced left rib fracture. Heart size is within normal limits. No focal infiltrate, effusion, or pneumothorax. If symptoms persist, consider chest CT. 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
--- OUTSIDE RECORDS SUMMARY | 2019-07-03 15:04 | XMS REPORT ---
Author Author [facility] Address Unknown Phone Unavailable Care Team Providers Care Podiatric Surgeon Name Role Phone EMORYSun Unavailable Unavailable Favian GONZALEZ Unavailable Unavailable Jose David VALDOVINOS Unavailable Unavailable Malgorzata HALE Unavailable Unavailable Thomas FISH Unavailable Unavailable BOUCHER, SOUHEIL Unavailable Unavailable CORRIE DEVRIES Unavailable Unavailable ZOMPA, A EDWARD Unavailable Unavailable Shama PORTER Unavailable Unavailable Payers [...] Medications This patient has no known medications. Encounters Start Date/Time End Date/Time Encounter Type Admission Type Attending Clinicians Care Facility Care Department Encounter ID 2019-02-27 17:37:00 2019-02-27 17:37:00 Outpatient [facility] [id number] 2019-02-02 18:39:00 2019-02-02 16:01:00 Inpatient [facility] 7504 Results Test Description Test Time Test Comments Text Results Atomic Results Result Comments CHEST SINGLE (PORTABLE) 2019-03-15 18:05:00 [facility] [address] [address] Patient Name: STEPHANIE CAMERON MR #: [id number] : 1960 Age/Sex: 58/F Req #: [id number] Adm Physician: Ordered by: JUAN CARLOS CAT MD Report #: [id number] Location: ER Room/Bed: Procedure: [id number] DX/CHEST SINGLE (PORTABLE) Exam Date: Exam Time: REPORT STATUS: Signed A single frontal view of the chest. HISTORY: Chest pain, shortness of breath COMPARISON: Chest radiograph February 26, 2019. DISCUSSION: Portable technique, limits sensitivity of the exam. Soft tissue attenuation partially limits sensitivity of the exam. Overlying monitoring leads. Tubes/Lines: None Lungs and pleura: Interval increased patchy right infrahilar opacity. No definite pleural effusion or pneumothorax is identified. Heart and mediastinum: The cardiomediastinal silhouette appears unremarkable. Bones and soft tissues: Appear unremarkable, given this limited exam. IMPRESSION: Right infrahilar opacity, considerations include: atelectasis, pneumonia, and/or aspiration in the appropriate settings. Recommend short term follow up PA and lateral chest radiographs, in 6-8 weeks, to evaluate for resolution. Signed by: Hardik HobbsO., M.M.M. on 03/15/2019 6:07 PM Dictated By: BRITTANEY FORDE DO 06 Transcribed By: SCOTT on 03/15/191806 COPY TO: JUAN CARLOS CAT MD CHEST SINGLE (NOT PORTABLE) 2019-02-26 17:03:00 [facility] [address] [id number] Patient Name: STEPHANIE CAMERON MR #: [id number] : 1960 Age/Sex: 58/F Req #: [id number] Adm Physician: Ordered by: AKBAR MEDNEZ NP Report #: [id number] Location: ER Room/Bed: Procedure: [id number] DX/CHEST SINGLE (NOT PORTABLE) Exam Date: 02/26/19 Exam Time: 1515 REPORT STATUS: Signed EXAM: CHEST SINGLE (NOT PORTABLE), AP Portable DATE: 02/26/2019 Time stamp on exam: 3:29 PM INDICATION: Hyperglycemia COMPARISON: 02/21/2019 FINDINGS: LINES/TUBES: None LUNGS: Bibasilar atelectasis. PLEURA: No effusions or pneumothorax. HEART AND MEDIASTINUM: Normal size and contour. BONES AND SOFT TISSUES: No acute findings. IMPRESSION: Bibasilar atelectasis. Signed by: Dr. Luc Easley DO on 02/26/2019 5:05 PM Dictated By: LUC EASLEY DO 04 Transcribed By: SCOTT on 02/26/191704 COPY TO: AKBAR MENDEZ AIRPLANE RIGGER CHEST 2 VIEWS 2019-02-21 14:26:00 [facility] [address] [place] [address] Patient Name: STEPHANIE CAMERON MR #: [id number] : 1960 Age/Sex: 58/F Req #: [id number] Adm Physician: Ordered by: SHANNON GONZALEZ MD Report #: [id number] Location: ER Room/Bed: Procedure: [id number] DX/CHEST 2 VIEWS Exam Date: 02/21/19 Exam Time: 1400 REPORT STATUS: Signed EXAMINATION: CHEST 2 VIEWS INDICATION: Chest pain. COMPARISON: None FINDINGS: TUBES and LINES: None. LUNGS: Lungs are not well inflated. Lungs are clear. There is no evidence of pneumonia or pulmonary edema. PLEURA: No pleural effusion or pneumothorax. HEART AND MEDIASTINUM: The cardiomediastinal silhouette is unremarkable. BONES AND SOFT TISSUES: No acute osseous abnormality. UPPER ABDOMEN: No free air under the diaphragm. IMPRESSION: No acute radiographic abnormality. Signed by: Dr. Sukhi Alonso MD on 02/21/2019 2:28 PM Dictated By: SUKHI ALONSO MD 1428 Transcribed By: SCOTT on 02/21/19 1428 COPY TO: SHANNON GONZALEZ MD TROPONIN-I 2019-01-18 18:32:00 TROPONIN-I (test code=TROPI) <0.015 ng/mL 0.00-0.056 COMPREHENSIVE METABOLIC [id number] 16:25:00* Test Item Value Reference Range Comments SODIUM (test code=NA) 140 mmol/L 135-148 POTASSIUM (test code=K) 4.4 mmol/L 3.5-5.1 CHLORIDE (test code=CL) 102 mmol/L 101-109 CARBON DIOXIDE (test code=CO2) 24.2 mmol/L 21-32 ANION GAP (test code=GAP) 18 mmol/L 10-20 GLUCOSE (test code=GLU) 250 mg/dL 74-106 BLOOD UREA NITROGEN (test code=BUN) 14 mg/dL 3-21 CREATININE (test code=CREAT) 1.15 mg/dL 0.55-1.3 BUN/CREATININE RATIO (test code=BUN/CREA) 12.2 10-20 TOTAL PROTEIN (test code=PROT) 7.1 g/dL 6.5-8.4 ALBUMIN (test code=ALB) 3.1 g/dL 3.4-4.8 GLOBULIN (test code=GLOB) 4.0 G/DL 1-10 ALBUMIN/GLOBULIN RATIO (test code=A/G) 0.8 RATIO 0.75-1.50 CALCIUM (test code=CA) 8.9 mg/dL 8.4-10.2 BILIRUBIN TOTAL (test code=BILT) 0.20 mg/dL 0.0-1.0 SGOT/AST (test code=AST) 20 U/L 6-32 SGPT/ALT (test code=ALT) 17 U/L 12-78 Note: Change in REFERENCE RANGE due to new reagent method. ALKALINE PHOSPHATASE TOTAL (test code=ALKP) 170 U/L 38-126 [id number] 16:25:00* Test Item Value Reference Range Comments LIPASE (test code=LIP) 55 U/L 128-270 [id number] 16:25:00* Test Item Value Reference Range Comments MAGNESIUM (test code=MAG) 1.3 mg/dL 1.6-2.3 CPK-MB [id number] 16:25:00* Test Item Value Reference Range Comments CREATINE KINASE (CK) (test code=CK) 34 U/L 26-192 CKMB (test code=CKMBT) 0.7 ng/mL 0.0-5.0 RELATIVE % INDEX (test code=REL%) 2.1 % [id number] 16:25:00* Test Item Value Reference Range Comments TROPONIN-I (test code=TROPI) <0.015 ng/mL 0.00-0.056 B-TYPE NATRIURETIC [id number] 16:23:00* Test Item Value Reference Range Comments B-TYPE NATRIURETIC PEPTIDE (test code=BNP) 16.8 pg/mL 0-100 [id number] 16:20:00* Test Item Value Reference Range Comments D-DIMER (test code=DDIMER) < 100 ng/ml < 600 - XR CHEST 1 [id number] 16:16:00 Name: NISHASTEPHANIE GUTIERREZ [facility] : 1960 Age/S:58 /F [address] [facility] Unit#:[id number] Loc: [place] [address] Phys: Yaakov Cho MD Dis Date: PHONE #: [phone] Status: REG ER FAX #: [phone] Exam Date: 01/18/2019 Reason: CP EXAMS: CPT CODE: [id number] XR CHEST 1 V 09953 EXAM: Chest X-ray, 1 view; CLINICAL HISTORY: Chest pain; FINDINGS: The lungs are clear, no infiltrates, no edema; no effusions; no pneumothorax; normal cardiomediastinal silhouette. IMPRESSION: Normal chest x-ray. at 1616 Reported and signed by: Conor Urrutia M.D. CC: Yaakov Cho MD Technologist: SILVIA AGUIAR, RT(R),CT Trnscrpt Data: 01/18/2019 (1616) [email or web address] Orig Print D/T: S: 01/18/2019 (2329) PAGE 1 Signed Report COMPREHENSIVE METABOLIC [id number] 16:12:00* Test Item Value Reference Range Comments SODIUM (test code=NA) 140 mmol/L 135-148 POTASSIUM (test code=K) 4.4 mmol/L 3.5-5.1 CHLORIDE (test code=CL) 102 mmol/L 101-109 CARBON DIOXIDE (test code=CO2) 24.2 mmol/L 21-32 ANION GAP (test code=GAP) 18 mmol/L 10-20 GLUCOSE (test code=GLU) 250 mg/dL 74-106 BLOOD UREA NITROGEN (test code=BUN) 14 mg/dL 3-21 CREATININE (test code=CREAT) 1.15 mg/dL 0.55-1.3 BUN/CREATININE RATIO (test code=BUN/CREA) 12.2 10-20 TOTAL PROTEIN (test code=PROT) gram/dL 6.4-8.2 ALBUMIN (test code=ALB) g/dL 3.4-5.0 GLOBULIN (test code=GLOB) g/dL 2.7-4.2 ALBUMIN/GLOBULIN RATIO (test code=A/G) 0.75-1.50 CALCIUM (test code=CA) 8.9 mg/dL 8.4-10.2 BILIRUBIN TOTAL (test code=BILT) mg/dL 0.2-1.2 SGOT/AST (test code=AST) IUnit/L 15-37 SGPT/ALT (test code=ALT) U/L 10-69 ALKALINE PHOSPHATASE TOTAL (test code=ALKP) IUnit/L 45-117 [id number] 16:12:00* Test Item Value Reference Range Comments LIPASE (test code=LIP) Unit/L 144-286 [id number] 16:12:00* Test Item Value Reference Range Comments MAGNESIUM (test code=MAG) mg/dL 1.8-2.4 CPK-MB [id number] 16:12:00* Test Item Value Reference Range Comments CREATINE KINASE (CK) (test code=CK) IUnit/L 26-208 CKMB (test code=CKMBT) ng/mL 0-6.0 RELATIVE % INDEX (test code=REL%) % [id number] 16:12:00* Test Item Value Reference Range Comments TROPONIN-I (test code=TROPI) ng/mL 0-0.045 CBC W/AUTO [id number] 16:05:00* Test Item Value Reference Range Comments WHITE BLOOD CELL (test code=WBC) 12.7 K/mm3 4.5-12.5 RED BLOOD CELL (test code=RBC) 4.35 mill/mm3 3.7-5.2 HEMOGLOBIN (test code=HGB) 11.4 gram/dL 11.5-15.5 HEMATOCRIT (test code=HCT) 37.1 % 36.0-46.0 MEAN CELL VOLUME (test code=MCV) 85.3 fL 80-98 MEAN CELL HGB (test code=MCH) 26.2 picogram 27.0-33.0 MEAN CELL HGB CONCETRATION (test code=MCHC) 30.7 gram/dL 33.0-36.0 RED CELL DISTRIBUTION WIDTH (test code=RDW) 17.7 % 11.6-16.2 RED CELL DISTRIBUTION WIDTH SD (test code=RDW-SD) 53.6 fL 39.1-52.0 PLATELET COUNT (test code=PLT) 341 K/mm3 150-450 MEAN PLATELET VOLUME (test code=MPV) 9.7 fL 6.7-11.0 NEUTROPHIL % (test code=NT%) 68.2 % 39.0-69.0 LYMPHOCYTE % (test code=LY%) 25.6 % 25.0-55.0 MONOCYTE % (test code=MO%) 4.9 % 0.0-10.0 EOSINOPHIL % (test code=EO%) 0.9 % 0.0-5.0 BASOPHIL % (test code=BA%) 0.4 % 0.0-1.0 NEUTROPHIL # (test code=NT#) 8.66 K/mm3 1.8-7.7 LYMPHOCYTE # (test code=LY#) 3.25 K/mm3 1.0-5.0 MONOCYTE # (test code=MO#) 0.62 K/mm3 0-0.8 EOSINOPHIL # (test code=EO#) 0.12 K/mm3 0.0-0.5 BASOPHIL # (test code=BA#) 0.05 K/mm3 0.0-0.2 MANUAL DIFF REQUIRED (test code=MDIFF) NO [id number] 22:37:00 [address] [address] Patient Name: STEPHANIE CAMERON MR #: [id number] : 1960 Age/Sex: 58/F Req #: [id number] Adm Physician: Ordered by: MARYLU VALDOVINOS MD Report #: [id number] Location: ER Room/Bed: Procedure: [id number] DX/COCCYX Exam Date: 12/22/18 Exam Time: 2200 REPORT STATUS: Signed COCCYX - 2 v iews HISTORY: Pain COMPARISON: None available. FINDINGS: See impression. IMPRESSION: Very limited study due to overlying bowel gas a nd soft tissue attenuation. No definite evidence of acute displaced fracture. Signed by: Dr. Elvie Haynes MD on 12/22/2018 10:38 PM Dictated By: ELVIE HYANES MD 37 T ranscribed By: SCOTT on 12/22/182237 COPY TO: MARYLU VALDOVINOS MD LUMBAR 3 [id number] 22:36:00 [address] [address] Patient Name: STEPHANIE CAMERON MR #: [id number] : 1960 Age/Sex: 58/F Req #: [id number] Adm Physician: Ordered by: MARYLU VALDOVINOS MD Report #: [id number] Location: ER Room/Bed: Procedure: [id number] DX/LUMBAR 3 VIEW Exam Date: 12/22/18 Exam Time: 2199 REPORT STATUS: Signed Lumba r Spine Radiographs: 3 views HISTORY: Pain COMPARISON: None availab le. DISCUSSION: Some of the osseous structures are partially obscured by stool and bowel gas. There are five non-rib bearing lumbar vertebral bodies . The alignment of the spine is within normal limits. No displaced fracture or compression deformity is identified. Vertebral body heights are maintained . Vascular calcifications. IMPRESSION: No acute radiographic abnorma lity. Signed by: Dr. Elvie Haynes MD on 12/22/2018 10:37 PM Dictate d By: ELVIE HAYNES MD 2 237 Transcribed By: SCOTT on 12/22/182236 COPY TO: DEION VALDOVINOS MD CT ABDOMEN/PELVIS [id number] 22:49:00 [address] [address] Patient Name: STEPHANIE CAMERON MR #: [id number] : 1960 Age/Sex: 58/F Req #: [id number] Adm Physician: Ordered by: JUAN CARLOS CAT MD Report #: [id number] Location: ER Room/Bed: Procedure: [id number] C T/CT ABDOMEN/PELVIS WO Exam Date: 10/05/18 Exam Time : 2221 REPORT STATUS: Signed EXA M: CT ABDOMEN/PELVIS WO DATE: 10/05/2018 5:27 PM INDICATION: abd pain LOW SUGAR, IODINE ALLERGY [id number], history of diabetes, asthma, GERD, chr onic back pain COMPARISON: None TECHNIQUE: The abdomen and pelvis were sca nned using a multidetector helical scanner. Coronal and sagittal reformations were obtained. CT low dose techniques were utilized, as applicable. IV Cont rast: 0 ml Isovue 300/370 FINDINGS: Lack of IV contrast decreases sensit ivity in evaluating abdominal and pelvic organs. LOWER THORAX: Bibasilar ate lectasis/scarring LIVER/BILIARY: No masses. No ductal dilatation. GA LLBLADDER: Contracted SPLEEN: Unremarkable PANCREAS: Atrophic ADRENALS: No nodules KIDNEYS: Punctate right 1 to 2 mm inferior renal calculus. No hydr onephrosis. There is a subcentimeter left posterior renal cystic lesion, subop timally assessed. GI TRACT: Mild gastric distention which may be related to recent ingestion/oral contrast administration or gastroparesis given diabet es. No evidence of obstruction. Moderate stool burden. Normal appendix. V ESSELS: Moderate atherosclerotic calcifications PERITONEUM/RETROPERITONEUM: No free air or fluid LYMPH NODES: No lymphadenopathy REPRODUCTIVE ORGANS/BL ADDER: Bladder is decompressed with a Graff. Hysterectomy. SOFT TISSUES: Rectus muscle diastases with tiny fat-containing umbilical hernia BONES: Scatt ered degenerative changes. IMPRESSION: No acute abnormality in the abdome n or pelvis. Signed by: Dr Luda Dawn MD on 10/05/2018 10:55 PM D ictated By: LUDA DAWN MD 54 Transcribed By: SCOTT on 10/05/182254 COPY TO: JUAN CARLOS CAT MD CHEST SINGLE (PORTABLE)2018-10-05 20:49:00 [address] [address] Patient Name: STEPHANIE CAMERON MR #: [id number] : 1960 Age/Sex: 58/F Req #: [id number] Adm Physician: Ordered by: JUAN CARLOS CAT MD Report #: [id number] Location: ER Room/Bed: Procedure: [id number] D X/CHEST SINGLE (PORTABLE) Exam Date: 10/05/18 Exam T ifrah: 1946 REPORT STATUS: Signed EXAMINATION: CHEST SINGLE (PORTABLE) INDICATION: Low blood sugar. COMPARISON: . FINDINGS: TUBES and LINES: Right inte rnal jugular central venous catheter with distal tip projected on the SVC prox imal to the cavoatrial junction. LUNGS: Linear atelectasis in the left lung base. There is no evidence of pneumonia or pulmonary edema. PLEURA: No pleural effusion or pneumothorax. HEART AND MEDIASTINUM: The cardiomediast inal silhouette is unremarkable. BONES AND SOFT TISSUES: No acute osse ous lesion. Soft tissues are unremarkable. UPPER ABDOMEN: No free air un turner the diaphragm. IMPRESSION: No acute thoracic abnormality. Signed by: Dr. Dennise Rey M.D. on 10/05/2018 8:50 PM Dictated By: CHRISTINA REY MD, MD 49 COPY TO: KATHYA CAT MD CHEST SINGLE (PORTABLE)2018-06-05 17:59:00 [address] [address] Patient Name: STEPHANIE CAMERON MR #: [id number] : 1960 Age/Sex: 58/F Req #: [id number] Adm Physician: Ordered by: STEVEN STAPLETON AIRPLANE RIGGER Report #: [id number] Location: ER Room/Bed: Procedure: [id number] DX/CHEST SINGLE (PORTABLE) Exam Date: 06/05/18 Exam Time: [address] ATUS: Signed PROCEDURE: A single AP view of the chest. COMPARISON: 04/06/18 INDICATIONS: weakness, dizzy FINDINGS: Lines/tubes: N one. Lungs: Limited by body habitus. Mild central vascular congestion. No definite focal consolidation. Pleura: There is no pleural effusion or pneumothorax. Heart and mediastinum: The heart and the mediastinum are un remarkable. Bones: No acute bony abnormality. IMPRESSION: Mi ld central vascular congestion. No definite focal consolidation. Dictat ed by: Elvie Haynes M.D. on 06/05/2018 at 17:59 Electronically approved by: Elvie Haynes M.D. on 06/05/2018 at 17:59 Dictated By: Aris HAYNES MD 58 Tr anscribed By: OSCAR on 06/05/181758 COPY TO: STEVEN STAPLETON NP CT BRAIN [id number] 17:35:00 [address] [place] [address] Patient Name: STEPHANIE CAMERON MR #: [id number] : 1960 Age/Sex: 58/F Req #: [id number] Adm Physician: Ordered by: STEVEN STAPLETON NP Report #: [id number] Location: Room/Bed: Procedure: [id number] CT/CT BRAIN WO Exam Date: 06/05/18 Exam Time: 1717 REPORT STATUS: Signed Examination: CT head without contrast Clinical Indication: Dizziness. Te chnique: Transaxial noncontrast images from the skull base through the vertex were obtained. Sagittal and coronal reformatted images were done. Comparison: 04/06/2018. Findings: Scalp: No abnormalities. Bones: Intact. No fract ures. No blastic or lytic lesions. Brain sulci: Appropriate for patient's age. Ventricles: Normal in size and configuration. No hydrocephalus. Extra-axial space: No abnormalities. Parenchyma: No abnormal densitie s. No masses, hemorrhage, or acute or chronic cortical based vascular insults. Suprasellar region: No abnormalities. Craniocervical junction: The shiv en magnum is patent. No Chiari one malformation. Mild atherosclerotic ch anges of the carotid siphons. Partially visualized hyperdense material seen in the posterior aspect of the left eye globe, could be related to retinal de tachment, stable Impression: No new or acute intracranial abnormality. Stable examination. . Signed by: DR Anmol Clinton M.D. on 06/05/20 5:38 PM Dictated By: ANMOL GARZA MD 37 Transcribed By: SCOTT on 06/05/181737 COPY TO: STEVEN STAPLETON NP CT CERVICAL SPINE [id number] 21:37:00 [place] [address] Patient Name: STEPHANIE CAMERON MR #: [id number] : 1960 Age/Sex: 57/F Req #: [id number] Adm Physician: Ordered by: MARYLU VALDOVINOS MD Report #: [id number] Location: ER Room/Bed: Procedure: [id number] CT/CT CERVICAL SP INE WO Exam Date: 04/06/18 Exam Time: 2040 ORT STATUS: Signed Examination: CT CERVICAL SPINE WITHOUT CONTRAST HISTO RY:Fall. Neck injury. COMPARISON:CT cervical spine performed November 06, 2017. TECHNIQUE: Multidetector helical axial images were obtained without contrast from the foramen magnum to T1. Coronal and sagittal reformatted images were done. Bone and soft tissue windows were evaluated. FINDINGS: Alignment :Normal alignment and lordosis. Vertebrae: Normal height and density. No acut e fracture, infection or neoplasm. Disc space heights: Normal height. Gonzales ele of spinal canal: Developmentally normal. Posterior fossa and craniocerv ical junction: Foramen magnum patent. No Chiari 1 malformation. Soft tiss ues: No abnormality. Degenerative changes: No disc bulge/ herniation or f oraminal or canal stenosis. Additional findings: None. IMPRESSION: No new abnormalities. No change since November 06, 2017. Signed by: Dr. Sally Ledesma M.D. on 04/06/2018 9:38 PM Dictated By: MICHAEL TALLEY MD 37 Transcribed By: SCOTT on 04/06/182137 COPY TO: MARYLU VALDOVINOS MD CT BRAIN [id number] 21:36:00 [place] [address] Patient Name: STEPHANIE CAMERON MR #: [id number] : 1960 Age/Sex: 57/F Req #: [id number] Adm Physician: Ordered by: MARYLU VALDOVINOS MD Report #: [id number] Location: ER Room/Bed: Procedure: [id number] CT/CT BRAIN WO E xam Date: 04/06/18 Exam Time: 2040 REPORT STATU S: Signed Examination: CT head without contrast Clinical Indication: Fall. Head injury. Technique: Transaxial noncontrast images from the skull base thro ugh the vertex were obtained. Sagittal and coronal reformatted images were don e. Comparison: Head CT performed November 06, 2017. Findings: Scalp: N o abnormalities. Bones: Intact. No fractures. No blastic or lytic lesions. Brain sulci: Appropriate for patient's age. Ventricles: Normal in size and configuration. No hydrocephalus. Extra-axial space: No abnormalities. Parenchyma: No abnormal densities. No masses, hemorrhage, or acute or chronic cortical based vascular insults. Suprasellar region: No abnormali ties. Craniocervical junction: The foramen magnum is patent. No Chiari one malformation. Impression: No new or acute intracranial abnormality. No change from prior head CT performed November 06, 2017. Signed by: Dr. Carly Ledesma M.D. on 04/06/2018 9:37 PM Dictated By: MICHAEL ZIEGLER MD 36 Transcribed By: SCOTT on 04/06/182136 COPY TO: MARYLU VALDOVINOS CHEST SINGLE (PORTABLE)2018-04-06 17:00:00 [place] [address] Patient Name: STEPHANIE CAMERON MR #: [id number] : 1960 Age/Sex: 57/F Req #: [id number] Adm Physician: Ordered by: MANUELITO FISH MD Report #: [id number] Location: ER Room/Bed: Procedure: [id number] DX/CHEST SINGLE (ANTOLIN BLE) Exam Date: Exam Time: REPORT STATUS: Si gned PROCEDURE: A single AP view of the chest. COMPARISON: [facility], DX, CHEST SINGLE (PORTABLE), 02/04/2018, 5:46. INDICATION S: COUGH, FEVER. POSSIBLE SEIZURE FINDINGS: Lines/tubes: None. Lungs: The lungs are well inflated and grossly clear. There is no eviden ce of pneumonia or pulmonary edema. Pleura: There is no pleural effusion or pneumothorax. Heart and mediastinum: The heart and the mediastinum are unremarkable. Bones: No acute bony abnormality. IMPRESSION: 1. No acute cardiopulmonary abnormalities. Henrry Grace M.D. Dictated by: Henrry Grace M.D. on 04/06/2018 at 17:00 Electronic ally approved by: Henrry Grace M.D. on 04/06/2018 at 17:00 Dictated By: HENRRY GRACE MD 1700 Transcribed By: OSCAR on 04/06/18 1700 COPY TO: Nidhi FISH MD CHEST SINGLE (PORTABLE)2017-07-15 17:11:00 [place] [address] Patient Name: STEPHANIE CAMERON MR #: [id number] : 1960 Age/Sex: 57/F Req #: [id number] Adm Physician: Ordered by: SIOBHAN PORTER MD Report #: [id number] Location: ER Room/Bed: Procedure: [id number] DX/CHEST SINGLE (PORTABLE ) Exam Date: 07/15/17 Exam Time: 1650 REPORT S TATUS: Signed PROCEDURE: A single AP view of the chest. COMPARISON: N one. INDICATIONS: LOW BLOOD SUGAR FINDINGS: Lines/tubes: No ne. Lungs: The lungs are well inflated and clear. There is no evidence of pneumonia, mass or pulmonary edema. Pleura: There is no pleural effus ion or pneumothorax. Heart and mediastinum: The heart and the mediastinum are unremarkable. Bones: No focal bony abnormality. IMPRESSION: No active disease. Dictated by: Rick Mohan M.D. on 07/15/2017 at 17:11 Electronically approved by: Rick Mohan M.D. on 07/15/2017 at 17:11 Dictated By: RICK MOHAN MD 10 Transcribed By: OSCAR on 07/15/171710 COPY TO: SIOBHAN PORTER MD CHEST SINGLE (PORTABLE) [place] [address] Patient Name: STEPHANIE CAMERON MR #: [id number] : 1960 Age/Sex: 57/F Req #: [id number] Adm Physician: LOLA BOUCHER MD Ordered by: AKBAR MENDEZ AIRPLANE RIGGER Report #: [id number] Locat ion: [facility] Room/Bed: [place] [address] Procedure: [id number] D X/CHEST SINGLE (PORTABLE) Exam Date: 02/04/18 Exam T ifrah: 0515 REPORT STATUS: Signed EXAMINATION: CHEST SINGLE (PORTABLE) INDICATION: Weakness, follow-up. COMPARISON: 02/03/2018 FINDINGS: TUBES and LINES: None. LUNGS: Lungs are not well inf lated. There are bibasilar atelectasis. There is no evidence of pneumonia o r pulmonary edema. PLEURA: No pleural effusion or pneumothorax. HEART AND MEDIASTINUM: The cardiomediastinal silhouette is unremarkable. RACHEL DANIELLE AND SOFT TISSUES: No acute osseous lesion. Soft tissues are unremarkable . UPPER ABDOMEN: No free air under the diaphragm. IMPRESSION: N o acute thoracic abnormality. Signed by: Dr. Candido Rodriguez M.D. on 02/05/20 6:44 AM Dictated By: CANDIDO LAY MD 3 Transcribed By: SCOTT on 02/04/18643 COPY TO: AKBAR MENDEZ NP CHEST SINGLE (PORTABLE) [place] [address] Patient Name: STEPHANIE CAMERON MR #: [id number] : 1960 Age/Sex: 57/F Req #: [id number] Adm Physician: Ordered by: AKBAR MENDEZ NP Report #: [id number] Location: ER Room/Bed: Procedure: [id number] DX/CHEST SINGLE (PORTABLE) Ex am Date: 02/03/18 Exam Time: 1105 REPORT STATUS : Signed PROCEDURE: A single AP view of the chest. COMPARISON: None. INDICATIONS: LOW BLOOD SUGAR FINDINGS: Lines/tubes: None. Lungs: The lungs are well inflated. Minimal right basal atelectatic evan nges. There is no evidence of pneumonia or pulmonary edema. Pleura: There is no pleural effusion or pneumothorax. Heart and mediastinum: The heart and the mediastinum are unremarkable. Bones: No acute bony abnormality. IMPRESSION: 1. Minimal right basal atelectatic changes. No consolid ation or effusion. Henrry Grace M.D. Dictated by: Shaq Grace M.D. on 02/03/2018 at 11:37 Electronically approved by: Santino Grace M.D. on 02/03/2018 at 11:37 Dictated By: HENRRY GRACE MD 1137 Trans cribed By: OSCAR on 02/03/18 1137 COPY TO: AKBAR MENDEZ NP SHOULDER LEFT COMPLETE [facility] [address] [address] Patient Name: STEPHANIE CAMERON MR #: [id number] : 1960 Age/Sex: 57/F Req #: [id number] Adm Physician: Ordered by: DIMITRI MCFARLAND Report #: [id number] Location: ER Room/Bed: Procedure: [id number] DX/SHOULDER LEFT COMPLETE Exam Date: 11/06/17 Exam Time: [address] ATUS: Signed Left SHOULDER LEFT COMPLETE - 2 views HISTORY: Pain. Fall COMPARISON: None available. FINDINGS: Bones: No acute displaced fracture. Osseous alignment is within normal limits. Joints: The join t spaces are well-maintained. Questionable joint effusion. Soft tissues: The soft tissues appear unremarkable. IMPRESSION: No acute radiogra phic abnormality. Questionable joint effusion. Signed by: Macario Olson on 11/06/2017 5:30 PM Dictated By: RAYMON REEDER MD 29 Transcribed By: SCOTT on 11/06/17 173 COPY TO: DIMITRI MCF[place] CT CERVICAL SPINE WO [place] [address] Patient Name: STEPHANIE CAMERON MR #: [id number] : 1960 Age/Sex: 57/F Req #: [id number] Adm Physician: Ordered by: WALE HALE MD Report #: [id number] Location: ER Room/Bed: Procedure: [id number] CT/CT CERVICAL SPINE WO E xam Date: 11/06/17 Exam Time: 1240 REPORT STATU S: Signed History: Fall, pain, dizziness. Comparison studies:CT head Technique: Axial images were obtained from the brain and cervical spine. Coronal and sagittal images reconstructed from the axial data. Intrav enous contrast: None Findings: Head CT: Scalp/skull: No abnorm alities. No fractures, blastic or lytic lesions. Brain sulci: Appropriate f or age. Ventricles: Normal in size and configuration. No hydrocephalus. E xtra-axial spaces: Right frontal arachnoid cyst abutting the superior frontal gyrus. No fluid collections. Parenchyma: No abnormal densities. No masses, hemorrhage, acute or chronic cortical vascular insults. Sellar/zhong prasellar region: No abnormalities. Craniocervical junction: Patent foramen ma gnum. No Chiari one malformation. Cervical spine CT: Fractures: None. Soft tissues: No gross abnormalities. Atlantoaxial articulation: Intact. Alignment: Straightening of the normal lordosis. No scoliosis. Cervicomedul agusto junction: No abnormalities. Patent foramen magnum. Vertebrae: No in fection or neoplasm. Degenerative changes: Mild disc degeneration at C6- 7. Patent canal and foramina. Incidental findings: None. Impression: Head CT: 1. No acute abnormality. Cervical spine CT: 1. No a cute abnormalities. 2. Cannot exclude ligament, spinal cord and or vascular a bnormalities on the basis of this examination. Signed by: DR Anmol Claros M.D. on 11/06/2017 1:23 PM Dictated By: ANMOL GARZA MD El ectronically Signed By: ANMOL GARZA MD on 11/06/17 1323 Transcribed By: SCOTT on 11/06/17 1323 COPY TO: WALE HALE MD CT BRAIN WO [facility] [address] [place] [address] Patient Name: STEPHANIE CAMERON MR #: [id number] : 1960 Age/Sex: 57/F Req #: [id number] Adm Physician: Ordered by: WALE HALE MD Report #: [id number] Location: ER Room/Bed: Procedure: [id number] CT/CT BRAIN WO Exam Date: 11/06/17 Exam Time: 1240 REPORT STATUS: Signed History: Fall, pain, dizziness. Comparison studies:CT head 09/29/17 Technique: Axial images were obtained from the brain and cervical spine. Coronal and sagittal images reconstructed from the axial data. Intravenous con trast: None Findings: Head CT: Scalp/skull: No abnormalities. [...] malformation. Cervical spine CT: Fractures: None. Soft t issues: No gross abnormalities. Atlantoaxial articulation: Intact. Alignm ent: Straightening of the normal lordosis. No scoliosis. Cervicomedullary junc tion: No abnormalities. Patent foramen magnum. Vertebrae: No infection o r neoplasm. Degenerative changes: Mild disc degeneration at C6-7. Patent canal and foramina. Incidental findings: None. Impression: Head CT: 1. No acute abnormality. Cervical spine CT: 1. No acute abno rmalities. 2. Cannot exclude ligament, spinal cord and or vascular abnormalit ies on the basis of this examination. Signed by: DR Anmol Clinton M.D. on 11/06/2017 1:23 PM Dictated By: ANMOL GARZA MD Electronic[employer]ly Signed By: ANMOL GARZA MD on 11/06/17 1323 Transcribed By: SCOTT awad 11/06/17 1323 COPY TO: WALE HALE MD MRI SHOULDER RIGHT WO [place] [address] Patient Name: STEPHANIE CAMERON MR #: [id number] : 1960 Age/Sex: 57/F Req #: [id number] Adm Physician: Ordered by: CORRIE DEVRIES DO Report #: [id number] Location: MRI Room/Bed: Procedure: [id number] MRI/MRI SHOULDER RIGHT WO Ex am Date: 11/05/17 Exam Time: 1335 REPORT STATUS : Signed MRI of the right shoulder without contrast. History: Should er pain. Fall. Decreased range of motion. Pain not responding to conservative management. Comparison: Radiographs 08/18/2017 Technique: Coronal PD FS, sagital PD FS, and axial PD and PD FS. Findings: Rotator cuff: There is rotator cuff tendinosis with mid substance and articular sided partial tear ing involving the anterior fibers of the supraspinatus and infraspinatus tendo ns at the humeral insertion site. This is best seen on sagittal series 5 image 5 and coronal series 3 image 12 through 14. Additionally, there is subscapula ris tendinosis. The teres minor tendon is intact. There is mild supraspinatus and infraspinatus muscle atrophy. There are reactive changes in the superior h umerus. Osseous acromion complex: There is a type II acromion with mild lat eral downsloping. There is moderate degenerative arthrosis at the acromioclavi cular joint with undersurface spurring and narrowing of the supraspinatus tend on outlet. There is mild subacromial/subdeltoid bursitis. Glenohumeral john int: There is degeneration and fraying of the labrum. The articular cartilage surfaces are intact. The humeral head is well-seated in the glenoid fossa. The re is an effusion/synovitis in the rotator interval and subcoracoid space. Biceps tendon: There is intra-articular biceps tendinosis with fraying at the biceps anchor. Other findings: Negative for muscle denervation or osseous fracture. Impression: Rotator cuff tendinosis with mid substance and art icular sided partial tearing involving the anterior fibers of the supraspinatu s and infraspinatus tendons at the humeral insertion site. Moderate dege nerative arthrosis at the acromioclavicular joint with undersurface spurring a nd narrowing of the supraspinatus tendon outlet. There is mild subacromial/sub deltoid bursitis. Signed by: Dr. Maite Escalona M.D. on 11/07/2017 8:57 A M Dictated By: MAITE ESCALONA MD, MD 6 Transcribed By: SCOTT on 11/07/17856 COPY T O: CORRIE DEVRIES DO CT BRAIN [place] [address] Patient Name: STEPHANIE CAMERON MR #: [id number] : 1960 Age/Sex: 57/F Req #: [id number] Adm Physician: Ordered by: MARYLU VALDOVINOS MD Report #: [id number] Location: ER Room/Bed: Procedure: [id number] CT/CT BRAIN WO Exam Da te: 09/29/17 Exam Time: 1999 REPORT STATUS: Sig vasyl EXAMINATION: Head CT without contrast. HISTORY:Altered mental s tatus. COMPARISON:Multiple prior studies, most recent CT brain from 07/22/20. TECHNIQUE: Multidetector axial images were obtained from the foramen ma gnum to the vertex without contrast. The images were reconstructed using brain and bone algorithms. Thin section brain images were reformatted into coronal and sagittal planes. Intravenous contrast: None IMAGE QUALITY: Acc eptable. FINDINGS: Skull/scalp: Unchanged small right frontal scalp l ipoma. Parenchyma: No abnormal density. No acute hemorrhage, mass or acu te major vascular territorial infarct. Arteries: No density suggestive of thrombosis. Dural sinuses: No abnormal density suggestive of thrombosis . Ventricles: No hydrocephalus or displacement. Extra-axial spaces: Unchanged small right superior frontal and left middle frontal convexity arac hnoid cyst with regional mass effect. Brain volume: Unchanged mild predomi nantly bilateral frontal cerebral volume loss. Craniocervical junction: No mass, Chiari malformation, or basilar invagination. Sella: No mass. Paranasal/mastoid sinuses: Imaged portions unremarkable. IMPRESSION: No acute intracranial abnormality. No change since CT brain from 07/22/2017. Signed by: Dr. Dg Zeng M.D. on 09/29/2017 8:36 PM Dictated By: DG ZENG MD 35 Transcribed By: SCOTT on 09/29/172035 COPY TO: Alverto VALDOVINOS MD CHEST SINGLE (PORTABLE) [place] [address] Patient Name: STEPHANIE CAMERON MR #: [id number] : 1960 Age/Sex: 57/F Req #: [id number] Adm Physician: Ordered by: MARYLU VALDOVINOS MD Report #: [id number] Location: ER Room/Bed: Procedure: [id number] DX/CHEST SINGLE (PORTAB LE) Exam Date: 09/29/17 Exam Time: 1999 REPORT STATUS: Signed EXAM: CHEST SINGLE (PORTABLE), AP DATE: 09/29/2017 7:31 PM Time stamp on Exam: 7:44 PM INDICATION: Altered mental status COMPARISON: FINDINGS: See impression. IMPRESSION: 1. Cardiomediastina l silhouette is normal. No infiltrates or nodules are seen. There is no pneumo thorax or effusion. 2. Regional osseous structures are unremarkable. S igned by: Dr. Luc Easley DO on 09/29/2017 8:59 PM Dictated By: LUC EASLEY DO 58 Transcr ibed By: SCOTT on 09/29/172058 COPY TO: MARYLU VALDOVINOS MD CHEST 2 VIEWS [place] [address] Patient Name: STEPHANIE CAMERON MR #: [id number] : 1960 Age/Sex: 57/F Req #: [id number] Adm Physician: LOLA BOUCHER MD Ordered by: LOLA BOUCHER MD Report #: [id number] Location: MED/SURG3 Room/Bed: 296 Procedure: [id number] DX/CHEST 2 VIEWS Exam Date: 08/18/17 Exam Time: 1200 REPORT STATUS: Signed PROCEDURE: Frontal and lateral views of the ch est. COMPARISON: 08/16/17. INDICATIONS: PNEUMONIA FINDIN GS: Lines/tubes: None. Lungs: Well-inflated. No evidence of mass or inf iltrate. Pulmonary vascular markings are normal. Pleura: There is no p leural effusion or pneumothorax. Heart and mediastinum: The heart and the mediastinum are normal. Bones: Unremarkable for age. IMPRESSION: No acute cardiopulmonary disease. Dictated by: Rick Mohan M.D. on 08/18/2017 at 12:28 Electronically approved by: Rick Mohan M.D. on 08/18/2017 at 12:28 Dictated By: RICK MOHAN MD 27 Transcribed By: OSCAR on 08/18/17 1228 COPY TO: LOLA BOUCHER MD SHOULDER RIGHT COMPLETE [place] [address] Patient Name: STEPHANIE CAMERON MR #: [id number] : 1960 Age/Sex: 57/F Req #: [id number] [facility] Physician: LOLA BOUCHER MD Ordered by: LOLA BOUCHER MD Report #: [id number] Location: [facility] Room/Bed: [facility] Procedure: [id number] DX/SHOULDER RIGHT COMPLETE Exam Date: 08/18/17 Exam Time: 1200 REPORT STATUS: Signed PROCEDURE: X-RAY RIGHT SHOULDER, COM PLETE COMPARISON: None. INDICATIONS: FALL, RIGHT SHOULDER PAIN FINDINGS: BONES: Normal mineralization. No acute fracture or d islocation. Joint spaces are within normal limits. SOFT TISSUES: Negative . OTHER: Visualized portion of the chest is normal.. CONCLUSION: No acute traumatic pathology. Dictated by: Rick jacobson M.D. on 08/18/2017 at 12:33 Electronically approved by: Rick Brunner M.D. on 08/18/2017 at 12:33 Dictated By: RICK Garsia MD 1233 Transcrib ed By: OSCAR on 08/18/17 1233 COPY TO: LOLA BOUCHER MD CHEST 2 VIEWS [place] [address] Patient Name: STEPHANIE CAMERON MR #: [id number] : 1960 Age/Sex: 57/F Req #: [id number] Adm Physician: Ordered by: LUZ SALAS Report #: [id number] Location: ER Room/Bed: Procedure: [id number] DX/CHEST 2 VIEWS Exam Date: 08/16/17 Exam Time: 1545 REPORT STATUS: Signed PROCEDURE: Frontal and lateral views of the chest. COMPARISON: Chest x-ray 07/22/2017. INDICATIONS: SHORTNESS OF BREATH, COUGH, LEUKOCYTOSIS FINDINGS: Lines/tubes: None. Lungs: Lungs are well-inflated. M ild right basilar atelectasis. Questionable left infrahilar airspace opacity. Pleura: There is no pleural effusion or pneumothorax. Heart and me diastinum: The heart and the mediastinum are normal. Bones: No acute bon y abnormality. IMPRESSION: 1. Right basilar atelectasis. 2. Quest ionable left infrahilar airspace opacity, concerning for pneumonia. Dic tated by: Raymon Reeder M.D. on 08/16/2017 at 16:18 Electronically approved b y: Raymon Reeder M.D. on 08/16/2017 at 16:18 Dictated By: RAYMON REEDER MD 17 Transcribed By: OSCAR on 08/16/171617 COPY TO: LUZ SALAS CT BRAIN WO [place] [address] Patient Name: STEPHANIE CAMERON MR #: [id number] : 1960 Age/Sex: 57/F Req #: [id number] Adm Physician: Ordered by: JACIEL BECKER MD Report #: [id number] Location: ER Room/Bed: Procedure: [id number] CT/CT BRAIN WO Exam Date: Exam Time: 1842 REPORT STATUS: Signed EXAMINATION: Head CT without contrast. HISTORY:Dizziness, lightheaded and weakness. COMPARISON:CT brain from 02/14/2017 and MRI brain from 2016. TECHNIQUE: Multidetector axial images were obtained from the foramen magnum to the vertex without contrast. The images were reconstructed using bra in and bone algorithms. Thin section brain images were reformatted into coron al and sagittal planes. Intravenous contrast: None IMAGE QUALITY: A cceptable. FINDINGS: Skull/scalp: Unchanged small right frontal scalp lipoma. Parenchyma: No abnormal density. No acute hemorrhage, mass or a cute major vascular territorial infarct. Arteries: No density suggestive o f thrombosis. Dural sinuses: No abnormal density suggestive of thrombos is. Ventricles: No hydrocephalus or displacement. Extra-axial space s: Unchanged small right superior frontal and left middle frontal convexity arachnoid cyst with regional mass effect. Brain volume: Normal for age. Craniocervical junction: No mass, Chiari malformation, or basilar invagina tion. Sella: No mass. Paranasal/mastoid sinuses: Mild partial opaci fication of the right mastoid tip. Incidental finding: Unchanged curvil inear hyperdensity along the posterior aspect of the posterior chamber of left globe may represent chronic vitreous hemorrhage. IMPRESSION: No acute in tracranial abnormality. No change since MRI brain from 02/21/2017. Sig vasyl by: Dr. Dg Zeng M.D. on 07/22/2017 7:50 PM Dictated By: GINO ZENG MD 49 Tr anscribed By: SCOTT on 07/22/171949 COPY TO: JACIEL BECKER MD CHEST SINGLE (PORTABLE) [place] [address] Patient Name: STEPHANIE CAMERON MR #: [id number] : 1960 Age/Sex: 57/F Req #: [id number] Adm Physician: Ordered by: JACIEL BECKER MD Report #: [id number] Location: ER Room/Bed: Procedure: [id number] DX/CHEST SINGLE (PORTABLE) E xam Date: 07/22/17 Exam Time: 1848 REPORT STATU S: Signed EXAMINATION: CHEST SINGLE (PORTABLE) INDICATION: COMPARISON: Chest radiograph from 02/14/2017 FINDINGS: AP view TUBES and LINES: None. LUNGS: Lungs are well inflated. Olegario gs are clear. There is no evidence of pneumonia or pulmonary edema. PLE URA: No pleural effusion or pneumothorax. HEART AND MEDIASTINUM: The card iomediastinal silhouette is unremarkable. BONES AND SOFT TISSUES: No a cute osseous lesion. Soft tissues are unremarkable. UPPER ABDOMEN: No fr ee air under the diaphragm. IMPRESSION: No acute thoracic abnormalit y. Signed by: Dr. Susie Zepeda M.D. on 07/22/2017 8:04 PM Di ctated By: SUSIE ZEPEDA MD 03 Transcribed By: SCOTT on 07/22/172003 CLAY MODELER Y TO: JACIEL BECKER MD CHEST SINGLE (PORTABLE) [place] [address] Patient Name: STEPHANIE CAMERON MR #: [id number] : 1960 Age/Sex: 57/F Req #: [id number] Adm Physician: Ordered by: SIOBHAN PORTER MD Report #: [id number] Location: ER Room/Bed: Procedure: [id number] DX/CHEST SINGLE (PORTABLE) Exam Date: 07/15/17 Exam Time: 1650 REPORT STATUS: S igned PROCEDURE: A single AP view of the chest. COMPARISON: None. INDICATIONS: LOW BLOOD SUGAR FINDINGS: Lines/tubes: None. Lungs: The lungs are well inflated and clear. There is no evidence of pneu monia, mass or pulmonary edema. Pleura: There is no pleural effusion or p neumothorax. Heart and mediastinum: The heart and the mediastinum are unr emarkable. Bones: No focal bony abnormality. IMPRESSION: No active disease. Dictated by: Rick Mohan M.D. on 07/15/2017 at 17:11 Electronically approved by: iRck Mohan M.D. on 07/15/2017 at 17: 11 Dictated By: RICK MOHAN MD 10 Transcribed By: OSCAR on 07/15/171710 COPY TO: SIOBHAN PORTER MD
[2019-07-03 17:24] LABS: BILIRUBIN,URINE NEGATIVE (NEGATIVE); CLARITY,URINE CLEAR (CLEAR); COLOR,URINE YELLOW (YELLOW); KETONES,URINE NEGATIVE (NEGATIVE); LEUKOCYTE ESTERASE ,URINE NEGATIVE (NEGATIVE); NITRITE,URINE NEGATIVE (NEGATIVE); PROTEIN,URINE DIPSTICK NEGATIVE (NEGATIVE); URINE UROBILINOGEN 0.2 mg/dL (0.2 - 1)
[2019-07-03 17:36] LABS: BACTERIA,URINE FEW /HPF; EPITHELIAL CELLS,URINE MODERATE /LPF
[2019-07-03] MEDS ORDERED: PENTAZOCINE/NALOXONE 1 TAB PO STA (17:53)
--- NOTE | 2019-07-03 18:53 | Diagnostic Imaging Report ---
Exam: Lumbar spine AP lateral oblique History: Back pain Comparison: None. Findings: No fracture. Degenerative endplate change throughout the lumbar spine. Facet arthrosis L5-S1. Impression: No acute osseous abnormality Signed by: Dr. Arnie Rangel M.D. on 07/03/2019 6:49 PM
--- NOTE | 2019-07-03 18:55 | Diagnostic Imaging Report ---
EXAMINATION: PA and lateral views of the chest. COMPARISON: None CLINICAL HISTORY: Trauma DISCUSSION: Lines/tubes: None. Lungs: The lungs are well inflated and clear. No pneumonia or pulmonary edema. Pleura: No pleural effusion or pneumothorax. Heart and mediastinum: The cardiomediastinal silhouette is normal. Bones and soft tissues: No acute bony abnormalities. IMPRESSION: No acute cardiopulmonary abnormalities. Signed by: Dr. Arnie Rangel M.D. on 07/03/2019 6:51 PM
--- NOTE | 2019-07-03 18:55 | Diagnostic Imaging Report ---
Exam: Cervical spine 2 views History: Neck pain Comparison: None. Findings: No fracture or malalignment. Mild degenerative endplate change without significant narrowing. Foramen intact. No abnormal soft tissue calcification or soft tissue defect. Impression: No acute osseous abnormality Signed by: Dr. Arnie Rangel M.D. on 07/03/2019 6:52 PM
== END 2019-07-03 19:27 | disposition home or self-care (01) ==
LOC: ER 15:01
DX: M54.2 Cervicalgia (principal); S16.1XXA Strain of muscle, fascia and tendon at neck level, initial encounter; V47.6XXA Car passenger injured in collision with fixed or stationary object in traffic accident, initial encounter; Y92.488 Other paved roadways as the place of occurrence of the external cause; I10 Essential (primary) hypertension; E11.9 Type 2 diabetes mellitus without complications; E78.5 Hyperlipidemia, unspecified; K21.9 Gastro-esophageal reflux disease without esophagitis; F17.210 Nicotine dependence, cigarettes, uncomplicated
CPT/HCPCS: 71046; 72050; 72110; 81001; 81025; 99284

== ENCOUNTER 2019-10-10 21:58 | Emergency (ER) | payer OTHER ==
[~2019-10-10] VITALS: Ht 162.6 cm; Wt 108.4 kg
[2019-10-10] MEDS ORDERED: DEXTROSE 5%/0.9% SOD CHL 1,000 ML IV ONE (22:15)
[2019-10-10 22:56] LABS: BASOPHILS # (AUTO) 0.1 (0.0-0.1); BASOPHILS % 0.5 % (0.0-1.0); EOSINOPHILS # (AUTO) 0.2 (0.0-0.4); EOSINOPHILS % 1.6 % (0.0-6.0); HEMATOCRIT 35.3 % (34.2-44.1); LYMPHOCYTES # (AUTO) 4.6 (1.0-3.2); LYMPHOCYTES % 36.6 % (18.0-39.1); MEAN CORPUSCULAR HEMOGLOBIN 22.1 pg (28-32); MEAN CORPUSCULAR HGB CONC 28.3 g/dL (31-35); MEAN CORPUSCULAR VOLUME 77.9 fL (81-99); MONOCYTES # (AUTO) 0.8 (0.2-0.8); MONOCYTES % 6.4 % (4.4-11.3); NEUTROPHILS # (AUTO) 6.8 (2.1-6.9); NEUTROPHILS % 54.3 % (38.7-80.0); PLATELET COUNT 376 x10e3/uL (140-360); RED BLOOD COUNT 4.53 x10e6/uL (3.6-5.1); RED CELL DISTRIBUTION WIDTH 23.8 % (11.7-14.4)
[2019-10-10 23:06] LABS: CARBON DIOXIDE 24 mmol/L (22-29); CHLORIDE 101 mmol/L (98-107); POTASSIUM 4.4 mmol/L (3.5-5.1); SODIUM 136 mmol/L (136-145)
[2019-10-10 23:07] LABS: ANION GAP 15.4 mmol/L (8-16); BLOOD UREA NITROGEN 17 mg/dL (7-26); BUN/CREATININE RATIO 19 (6-25); CALCIUM 8.9 mg/dL (8.4-10.2); CREATININE, SERUM 0.91 mg/dL (0.57-1.11); EST GLOMERULAR FILTRATION RATE > 60 ML/MIN (60-); GLUCOSE 135 mg/dL (74-118)
--- NOTE | 2019-10-10 23:17 | Diagnostic Imaging Report ---
X-ray right foot 3 views HISTORY: Pain. COMPARISON: None available. FINDINGS: Bones: No acute displaced fracture. Screw fixation of a healed fifth metatarsal shaft fracture deformity. Metallic anchor in the talus. Joints: The joint spaces are well-maintained. Soft tissues: Soft tissue swelling and superficial defect along the lateral mid/forefoot. IMPRESSION: No radiographic evidence of osteomyelitis. In the setting of poor wound healing, recommend follow-up radiographs in 6-8 weeks. Soft tissue swelling about the mid/forefoot. Signed by: Maldonado Ramirez DO on 10/10/2019 11:14 PM
[2019-10-11 02:40] VITALS: BP 116/61
== END 2019-10-11 03:08 | disposition home or self-care (01) ==
LOC: ER 21:58
DX: E10.649 Type 1 diabetes mellitus with hypoglycemia without coma (principal); S91.331A Puncture wound without foreign body, right foot, initial encounter; Z79.4 Long term (current) use of insulin
CPT/HCPCS: 36415; 73630; 80048; 82948; 85025; 99283; J7042

== ENCOUNTER 2019-12-22 17:31 | Emergency (ER) | payer MEDICARE, OTHER ==
[~2019-12-22] VITALS: Ht 162.6 cm; Wt 108.4 kg
[2019-12-22] MEDS ORDERED: DEXTROSE 5%/0.45% SOD CHL 1,000 ML IV STA (17:49)
[2019-12-22] MEDS ORDERED: DEXTROSE 50% SYRINGE 50 ML IV ONE (17:51)
[2019-12-22 18:16] LABS: BASOPHILS # (AUTO) 0.1 (0.0-0.1); BASOPHILS % 0.6 % (0.0-1.0); EOSINOPHILS # (AUTO) 0.2 (0.0-0.4); EOSINOPHILS % 1.5 % (0.0-6.0); HEMATOCRIT 34.6 % (34.2-44.1); HEMOGLOBIN 9.9 g/dL (12.0-16.0); LYMPHOCYTES # (AUTO) 1.4 (1.0-3.2); LYMPHOCYTES % 11.3 % (18.0-39.1); MEAN CORPUSCULAR HEMOGLOBIN 22.1 pg (28-32); MEAN CORPUSCULAR HGB CONC 28.6 g/dL (31-35); MEAN CORPUSCULAR VOLUME 77.2 fL (81-99); MONOCYTES # (AUTO) 0.6 (0.2-0.8); MONOCYTES % 4.7 % (4.4-11.3); NEUTROPHILS # (AUTO) 9.7 (2.1-6.9); NEUTROPHILS % 81.3 % (38.7-80.0); PLATELET COUNT 372 x10e3/uL (140-360); RED BLOOD COUNT 4.48 x10e6/uL (3.6-5.1); RED CELL DISTRIBUTION WIDTH 18.7 % (11.7-14.4)
--- NOTE | 2019-12-22 18:20 | NUR ---
PT AMBULATORY WITH ASSISTANCE TO RR TO COLLECT UA. UNSTEADY GAIT NOTED.
[2019-12-22 18:37] LABS: ALANINE AMINOTRANSFERASE 8 IU/L (0-55); ALBUMIN 3.5 g/dL (3.5-5.0); ALKALINE PHOSPHATASE 159 IU/L (40-150); ANION GAP 10.7 mmol/L (8-16); BLOOD UREA NITROGEN 15 mg/dL (7-26); BUN/CREATININE RATIO 19 (6-25); CALCIUM 9.5 mg/dL (8.4-10.2); CARBON DIOXIDE 27 mmol/L (22-29); CHLORIDE 106 mmol/L (98-107); CREATINE KINASE 44 IU/L (29-168); CREATININE, SERUM 0.77 mg/dL (0.57-1.11); EST GLOMERULAR FILTRATION RATE > 60 ML/MIN (60-); POTASSIUM 3.7 mmol/L (3.5-5.1); SODIUM 140 mmol/L (136-145)
[2019-12-22] MEDS ORDERED: DEXTROSE 50% SYRINGE 50 ML IV STA (18:42)
[2019-12-22 18:44] LABS: BILIRUBIN,URINE NEGATIVE (NEGATIVE); CLARITY,URINE CLEAR (CLEAR); COLOR,URINE YELLOW (YELLOW); KETONES,URINE NEGATIVE (NEGATIVE); LEUKOCYTE ESTERASE ,URINE NEGATIVE (NEGATIVE); NITRITE,URINE NEGATIVE (NEGATIVE); PROTEIN,URINE DIPSTICK NEGATIVE (NEGATIVE); URINE UROBILINOGEN 0.2 mg/dL (0.2 - 1)
--- NOTE | 2019-12-22 18:44 | NUR ---
PT EATING DINNER AT THIS TIME
[2019-12-22 18:45] LABS: BACTERIA,URINE RARE /HPF; EPITHELIAL CELLS,URINE FEW /LPF; RBC,URINE 0-5 /HPF (0-5); WBC,URINE (MAN) 0-5 /HPF (0-5)
--- NOTE | 2019-12-22 18:46 | Diagnostic Imaging Report ---
EXAMINATION: CHEST SINGLE (PORTABLE) INDICATION: ^ERMD ORDER ^[id number] ^1830 ^Y COMPARISON: None FINDINGS: AP view TUBES and LINES: None. LUNGS: Lungs are well inflated. There is no evidence of pneumonia or pulmonary edema. PLEURA: No pleural effusion or pneumothorax. HEART AND MEDIASTINUM: The cardiomediastinal silhouette is unremarkable. BONES AND SOFT TISSUES: No acute osseous lesion. Soft tissues are unremarkable. UPPER ABDOMEN: No free air under the diaphragm. IMPRESSION: No acute thoracic abnormality. Signed by: Kleber Sanchez MD on 12/22/2019 6:43 PM
[2019-12-22 18:48] LABS: GLUCOSE 39 mg/dL (74-118)
--- NOTE | 2019-12-22 19:07 | Diagnostic Imaging Report ---
Exam: Head CT without contrast History: New onset seizure Comparison studies: Head CT 06/05/2018 Technique: Axial images were obtained from the skull base to the vertex. Coronal and sagittal images reconstructed from the axial data. Dose modulation, iterative reconstruction, and/or weight based adjustment of the mA/kV was utilized to reduce the radiation dose to as low as reasonably achievable. Radiation dose: Total DLP: 921 mGy*cm. Estimated effective dose: DLP x 0.015 Intravenous contrast: None Findings: Scalp: No abnormalities. Bones: No fractures, blastic or lytic lesions. Brain sulci: Appropriate for age. Ventricles: Normal in size and configuration. No hydrocephalus. Extra-axial spaces: No masses, no fluid collection. Parenchyma: No abnormal densities. No masses, hemorrhage, acute or chronic vascular insults. Sellar/suprasellar region: No abnormalities. Craniocervical junction: Patent foramen magnum. No Chiari one malformation. Incidental findings: Atherosclerotic calcifications in the carotid siphons. Chronic increased density in the posterior left globe, possibly hemorrhage an/or retinal attachment. IMPRESSION: 1. No acute intracranial abnormalities. 2. No changes from the prior 06/05/[address] 3. Chronic hyperdensity along the posterior left globe, possibly related to prior hemorrhage and/or retinal detachment. Can correlate with ophthalmologic exam. Signed by: Dr. David Spicer M.D. on 12/22/2019 7:05 PM
[2019-12-22 19:20] LABS: HYPOCHROMASIA SLIGHT; RBC MORPHOLOGY COMMENT ABNORMAL
--- NOTE | 2019-12-22 19:33 | NUR ---
PATIENT ALERT AND ORIENTATED SPEAKING TO THIS NURSE, COFFEE WAS GIVEN TO PATIENT, PATIENT IS SMILING AND CONVERSING ADEQUATELY, CALL LIGHT PROVIDED.
== END 2019-12-22 22:46 | disposition home or self-care (01) ==
LOC: ER 17:31
DX: R55 Syncope and collapse (principal); E11.649 Type 2 diabetes mellitus with hypoglycemia without coma; I10 Essential (primary) hypertension; E78.5 Hyperlipidemia, unspecified; F41.9 Anxiety disorder, unspecified
CPT/HCPCS: 36415; 70450; 71045; 80053; 81001; 82550; 82553; 82948; 84484; 85025; 87086; 93005; 99283; J7799

== ENCOUNTER 2019-12-23 17:37 | Emergency (ER) | payer OTHER ==
[~2019-12-23] VITALS: Ht 162.6 cm; Wt 108.4 kg
[2019-12-23] MEDS ORDERED: ASPIRIN 81 MG CHEW TAB PO ONE (18:00)
[2019-12-23 18:41] LABS: BASOPHILS # (AUTO) 0.1 (0.0-0.1); BASOPHILS % 0.4 % (0.0-1.0); EOSINOPHILS # (AUTO) 0.5 (0.0-0.4); EOSINOPHILS % 3.8 % (0.0-6.0); HEMATOCRIT 33.6 % (34.2-44.1); HEMOGLOBIN 9.6 g/dL (12.0-16.0); LYMPHOCYTES # (AUTO) 3.8 (1.0-3.2); LYMPHOCYTES % 29.9 % (18.0-39.1); MEAN CORPUSCULAR HEMOGLOBIN 22.1 pg (28-32); MEAN CORPUSCULAR HGB CONC 28.6 g/dL (31-35); MEAN CORPUSCULAR VOLUME 77.4 fL (81-99); MONOCYTES # (AUTO) 0.6 (0.2-0.8); MONOCYTES % 5.1 % (4.4-11.3); NEUTROPHILS # (AUTO) 7.7 (2.1-6.9); NEUTROPHILS % 60.4 % (38.7-80.0); PLATELET COUNT 362 x10e3/uL (140-360); RED BLOOD COUNT 4.34 x10e6/uL (3.6-5.1); RED CELL DISTRIBUTION WIDTH 18.7 % (11.7-14.4)
[2019-12-23 18:56] LABS: INR 0.85; PARTIAL THROMBOPLASTIN TIME 30.6 seconds (23.8-35.5); PROTHROMBIN TIME 12.1 seconds (11.9-14.5)
[2019-12-23 19:00] LABS: ALANINE AMINOTRANSFERASE 6 IU/L (0-55); ALBUMIN 3.5 g/dL (3.5-5.0); ALKALINE PHOSPHATASE 153 IU/L (40-150); ANION GAP 14.8 mmol/L (8-16); BLOOD UREA NITROGEN 15 mg/dL (7-26); BUN/CREATININE RATIO 17 (6-25); CALCIUM 9.7 mg/dL (8.4-10.2); CARBON DIOXIDE 27 mmol/L (22-29); CHLORIDE 105 mmol/L (98-107); CREATINE KINASE 60 IU/L (29-168); EST GLOMERULAR FILTRATION RATE > 60 ML/MIN (60-); GLUCOSE 157 mg/dL (74-118); POTASSIUM 4.8 mmol/L (3.5-5.1); SODIUM 142 mmol/L (136-145)
[2019-12-23 19:20] LABS: THYROID STIMULATING HORMONE 0.177 uIU/mL (0.350-4.940)
--- NOTE | 2019-12-23 19:29 | Diagnostic Imaging Report ---
EXAMINATION: CHEST SINGLE (PORTABLE) COMPARISON: Chest x-ray 12/22/2019 INDICATION: Shortness of breath, chest pain ^ERMD ORDER ^[id number] ^1843 ^Y DISCUSSION: Frontal view of the chest obtained at 1843 hours. HEART AND MEDIASTINUM: The cardiomediastinal silhouette is unremarkable. LINES: None. LUNGS: Subtle ground glass opacities in the mid and lower lung zones. No interstitial edema. No nodules. PLEURA: No pleural effusion or pneumothorax. BONES AND SOFT TISSUES: No focal osseous lesion. The soft tissues are normal. IMPRESSION: Haziness in the mid and lower lung zones may be due to posterior atelectasis secondary to portable technique. Recommend correlation with PA and lateral chest x-ray if clinically feasible. Signed by: Dr. Rick Ansari MD on 12/23/2019 7:27 PM
--- NOTE | 2019-12-23 22:52 | Diagnostic Imaging Report ---
Ventilation/perfusion lung scan Clinical Information: New onset SOB; chest pain Comparison: Chest radiograph 12/23/2019 Discussion: Xenon-133 gas 25 mCi was administered via inhalation. Dynamic images of the lungs in the posterior projection were obtained through single breath, equilibrium, and washout phases. Distribution of tracer activity is irregular throughout the lungs. There are no segmental ventilatory defects. Washout of tracer is diffusely delayed with diffuse air trapping. Perfusion images of the lungs were obtained in multiple projections following intravenous administration of approximately 6 mCi of Tc-99m MAA. Distribution of tracer is irregular throughout the lungs. The contours of the lungs are well demarcated. There are no segmental perfusion defects of any size. The cardiomediastinal silhouette is unremarkable. Impression: 1. Scan findings represent a VERY LOW probability for acute pulmonary embolic disease based on the PIOPED II criteria. 2. Scan evidence of obstructive lung disease. Signed by: Dr. Chen Phillips M.D. on 12/23/2019 10:49 PM
[2019-12-23 23:13] VITALS: BP 165/81
== END 2019-12-23 23:40 | disposition home or self-care (01) ==
LOC: ER 17:37
DX: R07.89 Other chest pain (principal); I10 Essential (primary) hypertension; E11.9 Type 2 diabetes mellitus without complications; J44.9 Chronic obstructive pulmonary disease, unspecified; F41.9 Anxiety disorder, unspecified; Z95.5 Presence of coronary angioplasty implant and graft; F17.210 Nicotine dependence, cigarettes, uncomplicated
CPT/HCPCS: 36415; 71045; 78582; 80053; 82550; 82553; 84443; 84484; 85025; 85379; 85610; 85730; 93005; 99284

== ENCOUNTER 2020-02-27 22:51 | Emergency (ER) | payer OTHER ==
[~2020-02-27] VITALS: Ht 162.6 cm; Wt 108.4 kg
--- OUTSIDE RECORDS SUMMARY | 2020-02-27 22:53 | XMS REPORT ---
Author Author [facility] t Organization [facility] Address Unknown Phone Unavailable Support Name Relationship Address Phone Jose David VALDOVINOS MD Caregiver [address] [facility] [address] [place] [address] Unavailable NO, FAMILY Caregiver Unknown Unavailable NO, PCP Caregiver Unknown Unavailable TRINO CAMERON Next Of Kin [address] [place] [address] TRINO CAMERON [address] [place] [address] WES VIRAMONTES [address] [place] [address] SANDER TRIANA, LOLA Caregiver [address] [place] [address] CORRIE DEVRIES DO Caregiver [address] [place] [address] RICARDO GRULLON MD Caregiver [address] [place] [address] Unavailable TRINO CAMERON Next Of Kin [address] [place] [address] Thomas FISH MD Caregiver [address] [place] [address] Unavailable Malgorzata HALE MD Caregiver [address] [place] [address] Unavailable Sun CAT MD Caregiver [address] [place] [address] Unavailable Favian GONZALEZ MD Caregiver [address] [place] [address] Unavailable Alejandro COLBERT MD Caregiver [address] [place] [address] Unavailable Jose David VALDOVINOS MD Caregiver [address] [facility] [address] [place] [address] Favian GONZALEZ MD Caregiver [address] [facility] [address] [place], [place] [id number] Care Team Providers Care Waste Transportation Technician Name Role Phone CORRIE DEVRIES DO PP Favian GONZALEZ Unavailable Unavailable Jose David VALDOVINOS Unavailable Unavailable Sun CAT Unavailable Unavailable Malgorzata HALE Unavailable Unavailable Thomas FISH Unavailable Unavailable LOLA BOUCHER Unavailable Unavailable CORRIE DEVRIES Unavailable Unavailable Favian BECKER Unavailable Unavailable Shama PORTER Unavailable Unavailable Payers Payer Name Policy Type Policy Number Effective Date Expiration D [facility] [id number] 2014-09-30 00:00:00 [facility] [id number] 2014-09-30 00:00:00 [facility] [id number] 2018-10-31 00:00:0 0 [facility] [id number] 2014-09-30 00:00:00 [facility] [id number] 2018-10-31 00:00:0 0 [facility] [id number] 2014-09-30 00:00:00 [facility] [id number] 2018-10-31 00:00:0 0 [facility] [id number] 2014-09-30 00:00:00 [facility] [id number] 2018-10-31 00:00:0 0 [facility] [id number] 2018-10-31 00:00:00 [facility] [id number] 2018-10-31 00:00:0 0 [facility] [id number] 2018-10-31 00:00:00 [facility] [id number] 2017-10-31 00:00:0 0 [facility] [id number] 2014-09-30 00:00:00 [facility] [id number] 2017-10-31 00:00:0 0 [facility] [id number] 2014-09-30 00:00:00 [facility] [id number] 2017-10-31 00:00:0 0 [facility] [id number] 2014-09-30 00:00:00 [facility] [id number] 2017-10-31 00:00:0 0 [facility] [id number] 2014-09-30 00:00:00 [facility] [id number] 2017-10-31 00:00:0 0 [facility] [id number] 2014-09-30 00:00:00 [facility] [id number] 2017-10-31 00:00:0 0 [facility] [id number] 2014-09-30 00:00:00 [facility] [id number] [facility] [id number] [facility] [id number] 2014-09-30 00:00:00 [facility] [id number] [facility] [id number] 2014-09-30 00:00:00 [facility] [id number] [facility] [id number] 2014-09-30 00:00:00 [facility] [id number] 2014-09-30 00:00:00 Problems Condition Name Condition Details Condition Category Status Onset Date Resolution Date Last Treatment Date Treating Clinician Comments Acute renal failure Acute renal failure Problem Active Azotemia Azotemia Problem Active Confusion Confusion Problem Active Fall Fall Problem Active Hyperkalemia Hyperkalemia Problem Active Strain of neck muscle Neck strain Problem Active Contusion of shoulder Shoulder contusion Problem Active Dehydration Dehydration Problem Active Hypoglycemia Hypoglycemia Problem Active Hypotension Hypotension Problem Active Acute exacerbation of chronic obstructive pulmonary disease COPD exacerbation Problem Active Chest pain Chest pain Problem Active Hyperglycemia Hyperglycemia Problem Active Renal insufficiency Renal insufficiency Problem Active Allergies, Adverse Reactions, Alerts Allergy Name Allergy Type Status Severity Reaction(s) Onset Date Inacti ve Date Treating Clinician Comments STEROIDS Propensity to adverse reactions Active Unknown 2019-09 00:00:00 Ibuprofen Allergy to Substance Active Unknown 2018-10-06 00:00: 00 Iodinated Contrast Media Allergy to Substance Active Severe a naphylactic shock 2018-10-05 00:00:00 NSAIDS (Non-Steroidal Anti-Inflamma Allergy to Substance Active U nknown 2018-06-05 00:00:00 Sulfa (Sulfonamide Antibiotics) Allergy to Substance Active Unkno wn 2018-06-05 00:00:00 Iodine Allergy to Substance Active Severe anaphylactic sh ock 2018-06-05 00:00:00 Aspirin Allergy to Substance Active Unknown 2018-06-05 00:00:00 Milk Containing Products DA Active U 2018-01-29 00:0 0:00 Iodinated Contrast- Oral and IV Dye Allergy to Substance Active S evere 2017-07-15 00:00:00 NSAIDS (Non-Steroidal Anti-Inflamma Allergy to Substance Active M ild 2017-07-15 00:00:00 Aspirin Allergy to Substance Active Mild 2017-07-15 00:00:00 TOPICAL , IV IODINE Allergy to Substance Active Severe ANAPHA LACTIC SHOCK 2015-09-08 00:00:00 soap DA Active U 2014-03-26 00:00:00 NSAIDS (Non-Steroidal Anti-Inflamma DA Active U 2013 00:00:00 iodine DA Active U 2014-03-26 00:00:00 aspirin DA Active U 2014-03-26 00:00:00 ibuprofen DA Active U 2014-03-26 00:00:00 povidone-iodine DA Active U 2014-03-26 00:00:00 shellfish derived DA Active U 2014-03-26 00:00:00 Medications Ordered Medication Name Filled Medication Name Start Date Stop Da te Current Medication? Ordering Clinician Indication Dosage Frequency Signature (SIG) Comments Components Famotidine (Pepcid) 20 Mg Tablet Famotidine (Pepcid) 20 Mg T ablet 2019-06-19 00:00:00 Yes Gordon L Felipe Cap Coverer 20 Twice A Day Hydroxyzine Hcl 25 Mg Tablet Hydroxyzine Hcl 25 Mg Tablet 2019-06-01 0 00:00:00 Yes Gordon L Felipe Cap Coverer 25 Three Times A Day as needed for Itching Acetaminophen 325 Mg Tablet Acetaminophen 325 Mg Tablet Yes 650 Every 4 Hours as needed for Mild Pain (1-3) Or Fever>100.8 Ammonium Lactate 1 Ml Solution Ammonium Lactate 1 Ml Solution Yes 1 Twice A Day Atorvastatin Calcium 20 Mg Tablet Atorvastatin Calcium 20 Mg Tablet Yes 40 Bedtime Bupropion Hcl (Wellbutrin Sr) 150 Mg Tablet.er Bupropi on Hcl (Wellbutrin Sr) 150 Mg Tablet.er Yes 300 Bedtime Buspirone Hcl 5 Mg Tablet Buspirone Hcl 5 Mg Tablet Yes 7.5 Twice A Day Clonazepam 1 Mg Tablet Clonazepam 1 Mg Tablet Yes 1 Twice A Day as needed for Anxiety Clopidogrel Bisulfate (Plavix) 75 Mg Tablet Clopidogre l Bisulfate (Plavix) 75 Mg Tablet Yes 75 Daily Fluticasone/Salmeterol (Advair 100-50 Diskus) 1 Each D isk.w.dev Fluticasone/Salmeterol (Advair 100-50 Diskus) 1 Each Disk.w.dev Yes 1 Twice A Day Gabapentin 400 Mg Capsule Gabapentin 400 Mg Capsule Yes 400 Three Times A Day Hydrocodone Bit/Acetaminophen (Jewell 5-325 Tablet) 1 E ach Tablet Hydrocodone Bit/Acetaminophen (Jewell 5-325 Tablet) 1 Each Tablet Yes 1 Daily as needed for P Hydroxyzine Hcl 25 Mg Tablet Hydroxyzine Hcl 25 Mg Tablet Y es 25 Bedtime as needed for Anxiety Hydroxyzine Hcl 25 Mg Tablet Hydroxyzine Hcl 25 Mg Tablet Y es 50 Bedtime as needed for Anxiety Insulin Detemir (Levemir) 100 Unit/1 Ml Vial Insulin D etemir (Levemir) 100 Unit/1 Ml Vial Yes 32 Twice A Day Insulin Lispro (Humalog) 100 Unit/1 Ml Insuln.pen Insu rony Lispro (Humalog) 100 Unit/1 Ml Insuln.pen Yes Three Time s Daily With Meals Lisinopril 2.5 Mg Tablet Lisinopril 2.5 Mg Tablet Yes 2.5 Daily Loperamide Hcl (Loperamide) 2 Mg Tablet Loperamide Hcl (Nohemy ramide) 2 Mg Tablet Yes 2 Three Times A Day as nee ded for Diarrhea Metformin Hcl 500 Mg Tablet Metformin Hcl 500 Mg Tablet Yes 750 Twice A Day Metoprolol Succinate 25 Mg Tab.er.24h Metoprolol Succinate 25 Mg Ta b.er.24h Yes 50 Daily Mirtazapine (Remeron) 15 Mg Tablet Mirtazapine (Remeron) 15 Mg Tablet Yes 15 Bedtime Montelukast Sodium (Singulair) 10 Mg Tablet Montelukas t Sodium (Singulair) 10 Mg Tablet Yes 10 Daily Nicotine (Nicotine Patch) 1 Each Patch.td24 Nicotine ( Nicotine Patch) 1 Each Patch.td24 Yes 21 Daily Omeprazole 40 Mg Capsule. Omeprazole 40 Mg Capsule. Yes 40 Daily Ondansetron Hcl (Zofran*) 4 Mg Tablet Ondansetron Hcl (Zofran*) 4 M g Tablet Yes 4 Daily as needed for Nausea Quetiapine Fumarate (Seroquel) 100 Mg Tablet Quetiapin e Fumarate (Seroquel) 100 Mg Tablet Yes 150 Bedtime Trazodone Hcl 50 Mg Tablet Trazodone Hcl 50 Mg Tablet Yes 100 Bedtime True Plus Gel True Plus Gel Yes 1 As N eeded Tylenol Pm Tylenol Pm Yes 2 Bedtime as needed for Sleep Fluoxetine Hcl (Prozac) 20 Mg Capsule, 40 Mg Oral Fluo xetine Hcl (Prozac) 20 Mg Capsule, 40 Mg Oral 2019-02-22 00:00:00 No 40 Twice A Day Acetaminophen With Codeine (Tylenol With Codeine #4 Tablet) 1 Each Tablet, 1-2 Tab Oral Acetaminophen With Codeine (Tylenol With Codeine #4 Tablet) 1 Each Tablet, 1-2 Tab Oral 2019-02-21 00:00:00 No Every 6 Hours as needed for Pain Acetaminophen/Hydrocodone Bitart (Jewell 10MG-325MG*) 1 Ea Tab, 1 Tab Oral Acetaminophen/Hydrocodone Bitart (Jewell 10MG-325MG*) 1 Ea Tab, 1 Tab Oral 2019-02-21 00:00:00 No 1 Four Times Daily Albuterol Sulfate (Proair Hfa Inhaler*) 8.5 Gm Inh, 10 8 Mcg Inhalation Albuterol Sulfate (Proair Hfa Inhaler*) 8.5 Gm Inh, 108 Mcg Inhalation 2019-02-21 00:00:00 No 108 Daily Allopurinol 300 Mg Tablet, 300 Mg Oral Allopurinol 300 Mg Tablet , 300 Mg Oral 2019-02-21 00:00:00 No 300 Daily Aripiprazole (Abilify) 10 Mg Tablet, 10 Mg Oral Aripip razole (Abilify) 10 Mg Tablet, 10 Mg Oral 2019-02-21 00:00:00 No 10 Daily Azithromycin (Z-Curry) 250 Mg Tablet, 250 Mg Oral Azithr omycin (Z-Curry) 250 Mg Tablet, 250 Mg Oral 2019-02-21 00:00:00 No 250 Use As Directed Cefdinir (Omnicef) 300 Mg Capsule, 300 Mg Oral Cefdini r (Omnicef) 300 Mg Capsule, 300 Mg Oral 2019-02-21 00:00:00 No 300 Twice A Day Clonazepam (Klonopin) 1 Mg Tablet, 1 Mg Oral Clonazepa m (Klonopin) 1 Mg Tablet, 1 Mg Oral 2019-02-21 00:00:00 No 1 Twice A Day as needed for Anxiety Fluoxetine Hcl (Prozac) 40 Mg Capsule, 60 Mg Oral Fluo xetine Hcl (Prozac) 40 Mg Capsule, 60 Mg Oral 2019-02-21 00:00:00 No 60 Daily Gabapentin 300 Mg Capsule, 300 Mg Oral Gabapentin 300 Mg Capsule , 300 Mg Oral 2019-02-21 00:00:00 No 300 Three Times A Day Lidocaine (Lidoderm) 700 Mg Adh..patch, 1 Patch Topica lly Lidocaine (Lidoderm) 700 Mg Adh..patch, 1 Patch Topically 2019-02-21 00:00:00 No 1 Daily Montelukast Sodium (Singulair) 10 Mg Tablet, 10 Mg Ora l Montelukast Sodium (Singulair) 10 Mg Tablet, 10 Mg Oral 2019-02-21 00:00:00 No 10 Daily Azithromycin (Z-Curry) 250 Mg Tablet, 250 Mg Oral Azithr omycin (Z-Curry) 250 Mg Tablet, 250 Mg Oral 2018-02-04 00:00:00 No 250 Use As Directed Cefdinir (Omnicef) 300 Mg Capsule, 300 Mg Oral Cefdini r (Omnicef) 300 Mg Capsule, 300 Mg Oral 2018-02-04 00:00:00 No 300 Twice A Day Insuln Asp Prt/Insulin Aspart (Novolog M ix 70-30 Flexpen Syrn) 100 Unit/1 Ml Insuln.pen, Insuln Asp Prt/Insulin Aspart (Novolog M ix 70-30 Flexpen Syrn) 100 Unit/1 Ml Insuln.pen, 2018-02-04 00:00:00 No Invokana , 300 Mg Oral Invokana , 300 Mg Oral 2018-02-04 00:00:0 0 No 300 Daily Levofloxacin (Levaquin) 500 Mg Tablet, 500 Mg Oral Lev ofloxacin (Levaquin) 500 Mg Tablet, 500 Mg Oral 2018-02-04 00:00:00 No 500 Daily Metformin Hcl 1,000 Mg Tablet, 1000 Mg Oral Metformin Hcl 1,000 Mg Tablet, 1000 Mg Oral 2018-02-04 00:00:00 No 1000 Twice A Da y Ondansetron (Zofran Odt) 4 Mg Tab.rapdis, 4 Mg Oral On dansetron (Zofran Odt) 4 Mg Tab.rapdis, 4 Mg Oral 2018-02-04 00:00:00 No 4 Every 6 Hours Rosuvastatin Calcium (Crestor) 20 Mg Tablet, 20 Mg Ora l Rosuvastatin Calcium (Crestor) 20 Mg Tablet, 20 Mg Oral 2018-02-04 00:00:00 No 20 Daily Tizanidine Hcl (Zanaflex) 4 Mg Tablet, 4 Mg Oral Tizan idine Hcl (Zanaflex) 4 Mg Tablet, 4 Mg Oral 2018-02-04 00:00:00 No 4 Every 8 Hours as needed for Prn Varenicline Tartrate (Chantix) 0.5 Mg Tablet, 0.5 Mg O ral Varenicline Tartrate (Chantix) 0.5 Mg Tablet, 0.5 Mg Oral 2018-02-04 00:00:00 No .5 Twice A Day Zolpidem Tartrate (Ambien) 10 Mg Tablet, 10 Mg Oral Zo lpidem Tartrate (Ambien) 10 Mg Tablet, 10 Mg Oral 2018-02-04 00:00:00 No 10 Bedtime as needed for Sleep Linagliptin (Tradjenta) 5 Mg Tablet, 5 Mg Oral Linagli ptin (Tradjenta) 5 Mg Tablet, 5 Mg Oral 2017-08-17 00:00:00 No 5 Daily Lisinopril 5 Mg Tablet, 10 Mg Oral Lisinopril 5 Mg Tablet, 10 Mg Oral 2017-08-17 00:00:00 No 10 Daily Sertraline Hcl (Zoloft) 100 Mg Tablet, 100 Mg Oral Ser traline Hcl (Zoloft) 100 Mg Tablet, 100 Mg Oral 2017-08-17 00:00:00 No 100 Daily Alprazolam (Xanax Xr) 2 Mg Tab.er.24h, 2 Mg Oral Alpra zolam (Xanax Xr) 2 Mg Tab.er.24h, 2 Mg Oral 2015-09-12 00:00:00 No 2 Three Times A Day Bupropion Hcl (Wellbutrin) 100 Mg Tablet, 100 Mg Oral Bupropion Hcl (Wellbutrin) 100 Mg Tablet, 100 Mg Oral 2015-09-12 00:00:00 No 100 Daily Carisoprodol (Soma) 350 Mg Tablet, 350 Mg Oral Carisop rodol (Soma) 350 Mg Tablet, 350 Mg Oral 2015-09-12 00:00:00 No 350 Three Times A Day Procedures and Interventions Procedure Date / Time Performed Performing Clinici an Computed tomography of brain without radiopaque contrast 00:00:00 DO GUTIERREZ X-ray of chest, two views 2019-07-03 00:00:00 STONE FELIPE Encounters Start Date/Time End Date/Time Encounter Type Admission Type [facility] Clinicians Care Facility Care Department Encounter ID 2019-12-23 17:37:00 2019-12-23 23:40:00 Departed Emergency Room 1 SHANNON GONZALEZ [facility] [id number] 2019-12-22 17:31:00 2019-12-22 22:46:00 Departed Emergency Room 1 SHANNON GONZALEZ [facility] [id number] 2019-10-10 21:58:00 2019-10-11 03:08:00 Departed Emergency Room 1 MARYLU VALDOVINOS [facility] [id number] 2019-07-03 15:01:00 2019-07-03 19:27:00 Departed Emergency Room 1 JUAN CARLOS CAT [facility] [id number] 2019-06-19 13:06:00 2019-06-19 15:45:00 Departed Emergency Room [facility] [id number] 2019-06-03 21:51:00 2019-06-03 23:45:00 Departed Emergency Room [facility] [id number] 2019-03-15 15:49:00 2019-03-15 18:14:00 Departed Emergency Room 1 JUAN CARLOS CAT [facility] [id number] 2019-03-07 13:20:00 2019-03-07 16:24:00 Departed Emergency Room [facility] [id number] 2019-02-27 17:37:00 2019-02-27 17:37:00 Outpatient E [facility] [id number] 2019-02-26 14:30:00 2019-02-26 16:29:00 Departed Emergency Room 1 SHANNON GONZALEZ [facility] [id number] 2019-02-21 20:01:00 2019-02-23 17:50:00 Discharged Inpatient (obs) 1 SHANNON GONZALEZ [facility] [id number] 2019-02-02 18:39:00 2019-02-02 16:01:00 Inpatient E [facility] MED [id number] 2018-12-22 21:11:00 2018-12-22 23:27:00 Departed Emergency Room 1 MARYLU VALDOVINOS [facility] [id number] 2018-10-05 23:12:00 2018-10-06 12:56:00 Discharged Inpatient (obs) 1 JUAN CARLOS CAT [facility] [id number] 2018-06-05 15:32:00 2018-06-05 21:08:00 Departed Emergency Room 1 WALE HALE [facility] [id number] 2018-04-14 22:17:00 2018-04-14 22:31:00 Departed Emergency Room [facility] [id number] 2018-04-14 22:17:00 2018-04-14 22:31:00 Departed Emergency Room [facility] [id number] 2018-04-06 20:24:00 2018-04-06 23:06:00 Departed Emergency Room 1 MARYLU VALDOVINOS [facility] [id number] 2018-04-06 15:48:00 2018-04-06 20:05:00 Departed Emergency Room 1 MANUELITO FISH [facility] [id number] 2018-02-11 21:03:00 2018-02-12 00:05:00 Departed Emergency Room [facility] [id number] 2018-02-03 14:12:00 2018-02-04 16:56:00 Discharged Inpatient (obs) ER LOLA BOUCHER [facility] [id number] 2017-11-06 12:21:00 2017-11-06 18:28:00 Departed Emergency Room ER WALE HALE [facility] [id number] 2017-11-05 13:17:00 2017-11-05 13:17:00 Registered Clinic CORRIE IVEY [facility] [id number] 2017-10-17 04:51:00 2017-10-17 04:51:00 Registered Referred [facility] [id number] 2017-09-30 04:24:00 2017-10-03 16:54:00 Discharged Inpatient ER MARYLU VALDOVINOS [facility] [id number] 2017-08-16 17:46:00 2017-08-18 14:47:00 Discharged Inpatient ER LOLA BOUCHER [facility] [id number] 2017-07-22 17:49:00 2017-07-22 21:50:00 Departed Emergency Room ER JACIEL BECKER [facility] [id number] 2017-07-15 16:27:00 2017-07-15 18:55:00 Departed Emergency Room ER SIOBHAN PORTER [facility] [id number] Results Test Description Test Time Test Comments Text Results Atomic Results Result Comments VQ LUNG SCAN VENT PERFUSION 2019-12-23 22:44:00 [place] [address] Patient Name: STEPHANIE CAMERON MR #: [id number] : 1960 Age/Sex: 59/F Req #: [id number] Adm Physician: Ordered by: DO GUTIERREZ NP Report #: [id number] Location: ER Room/Bed: Procedure: [id number] NM/VQ LUNG SCAN VENT PERFUSION Exam Date: Exam Time: REPORT STATUS: Signed Ventilation/perfusion lung scan Clinical Information: New onset SOB; chest pain Comparison: Chest radiograph 12/23/2019 Discussion: Xenon-133 gas 25 mCi was administered via inhalation. Dynamic images of the lungs in the posterior projection were obtained through single breath, equilibrium, and washout phases. Distribution of tracer activity is irregular throughout the lungs. There are no segmental ventilatory defects. Washout of tracer is diffusely delayed with diffuse air trapping. Perfusion images of the lungs were obtained in multiple projections following intravenous administration of approximately 6 mCi of Tc-99m MAA. Distribution of tracer is irregular throughout the lungs. The contours of the lungs are well demarcated. There are no segmental perfusion defects of any size. The cardiomediastinal silhouette is unremarkable. Impression: 1. Scan findings represent a VERY LOW probability for acute pulmonary embolic disease based on the PIOPED II criteria. 2. Scan evidence of obstructive lung disease. Signed by: Dr. Chen Phillips M.D. on 12/23/2019 10:49 PM Dictated By: CHEN PHILLIPS MD 48 Transcribed By: SCOTT on 12/23/192248 COPY TO: DO GUTIERREZ VIRTUALIZATION ENGINEER Creatine Kinase MB 2019-12-23 19:29:00 Creatine Kinase MB (test code = 02865-2) 2.00 0-5.0 Troponin [id number] 19:29:00* Test Item Value Reference Range Comments Troponin I (test code = QCE4074) 0.008 0-0.300 Thyroid Stimulating Hormone (TSH)2019-12-23 19:29:00* Test Item Value Reference Range Comments Thyroid Stimulating Hormone (TSH) (test code = 95106-4) 0.177 0.350-4.940 CHEST SINGLE (PORTABLE)2019-12-23 19:25:00 [place] [address] Patient Name: STEPHANIE CAMERON MR #: [id number] : 1960 Age/Sex: 59/F Req #: [id number] Adm Physician: Ordered by: DO GUTIERREZ VIRTUALIZATION ENGINEER Report #: [id number] Location: ER Room/Bed: Procedure: [id number] D X/CHEST SINGLE (PORTABLE) Exam Date: 12/23/19 Exam T ifrah: 1843 REPORT STATUS: Signed EXAMINATION: CHEST SINGLE (PORTABLE) COMPARISON: Chest x-ray 12/22/2019 INDICATION: Shortness of breath, chest pain ERMD ORDER [id number] Y DISCUSSION: Frontal view of the chest obtained at 1843 hours. HEART AND MEDIASTINUM: The cardiomediastinal silhouette is unremarkable. LINES: None. LUNGS: Subtle ground glass opacities in the mid and l ower lung zones. No interstitial edema. No nodules. PLEURA: No pleural e ffusion or pneumothorax. BONES AND SOFT TISSUES: No focal osseous lesion. The soft tissues are normal. IMPRESSION: Haziness in the mid and lowe r lung zones may be due to posterior atelectasis secondary to portable techniq ue. Recommend correlation with PA and lateral chest x-ray if clinically feasib le. Signed by: Dr. Rick Mohan MD on 12/23/2019 7:27 PM Dictat ed By: RICK MOHAN MD 26 COPY TO: ALISIA GUTIERREZ NP D-Dimer Quantitative (PE/DVT)2019-12-23 19:11:00* Test Item Value Reference Range Comments D-Dimer Quantitative (PE/DVT) (test code = 54284-4) 0.47 0.00-0.45 As with all in vitro diagnostic tests, the test results should be interpreted by the physician in conjunction with clinical findings and other test results.Test results are reported in NEW D-dimer units(ug/mLFEU).Prothrombin [id number] 19:04:00* Test Item Value Reference Range Comments Prothrombin Time (test code = 5902-2) 12.1 11.9-14.5 Prothromb Time International [id number] 19:04:00* Test Item Value Reference Range Comments Prothromb Time International Ratio (test code = 6301-6) 0.85 Oral Anticoagulant Therapy INR Values:1. Low Intensity Therapy 1.5 - 2.02 . Moderate Intensity Therapy 2.0 - 3.03. High Intensity Therapy(1) 2.5 - 3. 54. High Intensity Therapy(2) 3.0 - 4.05. Panic Value INR > 5.0 Activated Partial Thromboplast [id number] 19:04:00* Test Item Value Reference Range Comments Activated Partial Thromboplast Time (test code = 24708-2) 30.6 23.8-35.5 Sodium [id number] 19:03:00* Test Item Value Reference Range Comments Sodium Level (test code = 2951-2) 142 136-145 Potassium [id number] 19:03:00* Test Item Value Reference Range Comments Potassium Level (test code = 2823-3) 4.8 3.5-5.1 Chloride [id number] 19:03:00* Test Item Value Reference Range Comments Chloride Level (test code = 2075-0) 105 98-107 Carbon Dioxide [id number] 19:03:00* Test Item Value Reference Range Comments Carbon Dioxide Level (test code = 2028-9) 27 22-29 Anion [id number] 19:03:00* Test Item Value Reference Range Comments Anion Gap (test code = 33595-3) 14.8 8-16 Blood Urea [id number] 19:03:00* Test Item Value Reference Range Comments Blood Urea Nitrogen (test code = 3094-0) 15 7-26 [id number] 19:03:00* Test Item Value Reference Range Comments Creatinine (test code = 2160-0) 0.90 0.57-1.11 BUN/Creatinine [id number] 19:03:00* Test Item Value Reference Range Comments BUN/Creatinine Ratio (test code = 3097-3) 17 6-25 Estimat Glomerular Filtration [id number] 19:03:00* Test Item Value Reference Range Comments Estimat Glomerular Filtration Rate (test code = 193332078) > 60 >60 Ranges were taken from the National Kidney Disease Education Program and the [facility] literature.Reference ranges:60 or greater: Jmhijh46-36 ( for 3 consecutive months): Chronic kidney disease 15 or less: Kidney failure Glucose [id number] 19:03:00* Test Item Value Reference Range Comments Glucose Level (test code = NZW9916) 157 74-118 Calcium [id number] 19:03:00* Test Item Value Reference Range Comments Calcium Level (test code = 66574-7) 9.7 8.4-10.2 Total [id number] 19:03:00* Test Item Value Reference Range Comments Total Bilirubin (test code = 1975-2) 0.2 0.2-1.2 Aspartate Amino Transf (AST/SGOT)2019-12-23 19:03:00* Test Item Value Reference Range Comments Aspartate Amino Transf (AST/SGOT) (test code = Aspartate Amino Transf (AST/SGOT)) 10 5-34 Alanine Aminotransferase (ALT/SGPT)2019-12-23 19:03:00* Test Item Value Reference Range Comments Alanine Aminotransferase (ALT/SGPT) (test code = 1742-6) 6 0-55 Total [id number] 19:03:00* Test Item Value Reference Range Comments Total Protein (test code = 2885-2) 6.9 6.5-8.1 [id number] 19:03:00* Test Item Value Reference Range Comments Albumin (test code = 1751-7) 3.5 3.5-5.0 [id number] 19:03:00* Test Item Value Reference Range Comments Globulin (test code = 82730-7) 3.4 2.3-3.5 Albumin/Globulin Ojtme7726-79-50 19:03:00* Test Item Value Reference Range Comments Albumin/Globulin Ratio (test code = 1759-0) 1.0 0.8- 2.0 Alkaline [id number] 19:03:00* Test Item Value Reference Range Comments Alkaline Phosphatase (test code = 6768-6) 153 40-150 Creatine Uvmwuj7841-44-17 19:03:00* Test Item Value Reference Range Comments Creatine Kinase (test code = 2157-6) 60 29-168 White Blood Tyira9583-93-66 18:46:00* Test Item Value Reference Range Comments White Blood Count (test code = 6690-2) 12.67 4.8-10.8 Red Blood Optqo8465-96-43 18:46:00* Test Item Value Reference Range Comments Red Blood Count (test code = 789-8) 4.34 3.6-5.1 Mscoadtsvx3629-76-05 18:46:00* Test Item Value Reference Range Comments Hemoglobin (test code = 28353-7) 9.6 12.0-16.0 Pjizsnlnnd7226-59-63 18:46:00* Test Item Value Reference Range Comments Hematocrit (test code = 4544-3) 33.6 34.2-44.1 Mean Corpuscular Euilkg8483-50-30 18:46:00* Test Item Value Reference Range Comments Mean Corpuscular Volume (test code = 787-2) 77.4 81-9 9 Mean Corpuscular Lyesayokck6046-57-19 18:46:00* Test Item Value Reference Range Comments Mean Corpuscular Hemoglobin (test code = 785-6) 22.1 28-32 Mean Corpuscular Hemoglobin Xutgfsv8670-00-88 18:46:00* Test Item Value Reference Range Comments Mean Corpuscular Hemoglobin Concent (test code = 786-4) 28.6 31-35 Red Cell Distribution Kmnuu8323-06-22 18:46:00* Test Item Value Reference Range Comments Red Cell Distribution Width (test code = 12290-4) 18.7 11.7-14.4 Platelet Kctol4948-58-66 18:46:00* Test Item Value Reference Range Comments Platelet Count (test code = 777-3) 362 140-360 Neutrophils (%) (Auto)2019-12-23 18:46:00* Test Item Value Reference Range Comments Neutrophils (%) (Auto) (test code = 77314-6) 60.4 38. 7-80.0 Lymphocytes (%) (Auto)2019-12-23 18:46:00* Test Item Value Reference Range Comments Lymphocytes (%) (Auto) (test code = 736-9) 29.9 18.0- 39.1 Monocytes (%) (Auto)2019-12-23 18:46:00* Test Item Value Reference Range Comments Monocytes (%) (Auto) (test code = 5905-5) 5.1 4.4-11 .3 Eosinophils (%) (Auto)2019-12-23 18:46:00* Test Item Value Reference Range Comments Eosinophils (%) (Auto) (test code = 713-8) 3.8 0.0-6 .0 Basophils (%) (Auto)2019-12-23 18:46:00* Test Item Value Reference Range Comments Basophils (%) (Auto) (test code = 706-2) 0.4 0.0-1.0 IM GRANULOCYTES %2019-12-23 18:46:00* Test Item Value Reference Range Comments IM GRANULOCYTES % (test code = IM GRANULOCYTES %) 0.4 0.0-1.0 Neutrophils # (Auto)2019-12-23 18:46:00* Test Item Value Reference Range Comments Neutrophils # (Auto) (test code = 751-8) 7.7 2.1-6.9 Lymphocytes # (Auto)2019-12-23 18:46:00* Test Item Value Reference Range Comments Lymphocytes # (Auto) (test code = 33140-1) 3.8 1.0-3 .2 Monocytes # (Auto)2019-12-23 18:46:00* Test Item Value Reference Range Comments Monocytes # (Auto) (test code = 742-7) 0.6 0.2-0.8 Eosinophils # (Auto)2019-12-23 18:46:00* Test Item Value Reference Range Comments Eosinophils # (Auto) (test code = 711-2) 0.5 0.0-0.4 Basophils # (Auto)2019-12-23 18:46:00* Test Item Value Reference Range Comments Basophils # (Auto) (test code = 704-7) 0.1 0.0-0.1 Absolute Immature Granulocyte (gejp1834-41-30 18:46:00* Test Item Value Reference Range Comments Absolute Immature Granulocyte (auto (romelia t code = Absolute Immature Granulocyte (auto) 0.05 0-0.1 Bedside Ukjbitd8659-35-15 15:42:00* Test Item Value Reference Range Comments Bedside Glucose (test code = 24106-3) 244 70-120 Meter ID: [id number] 19:20:00* Test Item Value Reference Range Comments Hypochromasia (test code = 728-6) SLIGHT Red Cell Morphology Oxyyhfv6184-17-59 19:20:00* Test Item Value Reference Range Comments Red Cell Morphology Comment (test code = 6742-1) ABNORMAL CT BRAIN YI2763-16-95 19:00:00 [place] [address] Patient Name: STEPHANIE CAMERON MR #: [id number] : 1960 Age/Sex: 59/F Req #: [id number] Adm Physician: Ordered by: DO GUTIERREZ VIRTUALIZATION ENGINEER Report #: [id number] Location: Room/Bed: Procedure: [id number] C T/CT BRAIN WO Exam Date: 12/22/19 Exam Time: 1830 REPORT STATUS: Signed Exam: Head CT without contrast History: New onset seizure Comparison studies: Head CT 06/05/2018 Technique: Axial images were obtained from the skull base to the vertex. Coronal and sagittal images reconstructed from the axial data. Dose modulation, iterative reconstruction, and/or weight based adjustment of the mA/kV was utilized to reduce the radiation dose to as low as reasonably achiev able. Radiation dose: Total DLP: 921 mGy*cm. Estimated effective do se: DLP x 0.015 Intravenous contrast: None Findings: Scalp: No abno rmalities. Bones: No fractures, blastic or lytic lesions. Brain sulci: Ap propriate for age. Ventricles: Normal in size and configuration. No hydrocepha elbert. Extra-axial spaces: No masses, no fluid collection. Parenchyma: No abnormal densities. No masses, hemorrhage, acute or chronic vascular insul ts. Sellar/suprasellar region: No abnormalities. Craniocervical junction: Patent foramen magnum. No Chiari one malformation. Incidental findings: Atherosclerotic calcifications in the carotid siphons. Chronic increased dens ity in the posterior left globe, possibly hemorrhage an/or retinal attachment. IMPRESSION: 1. No acute intracranial abnormalities. 2. No changes from the prior 06/05/[address] 3. Chronic hyperdensity along the posterior left globe, possibly related to prior hemorrhage and/or retinal detachment. Can correlate with ophthalmologic exam. Signed by: Scar Guillermo on 12/22/2019 7:05 PM Dictated By: JELENA CHAMBERLAIN MD Electronically Si gned By: JELENA CHAMBERLAIN MD on 12/22/19 1904 Transcribed By: SCOTT on 1904 COPY TO: DO GUTIERREZ NP Urine Vumem8467-37-25 18:45:00* Test Item Value Reference Range Comments Urine Color (test code = 5778-6) YELLOW YELLOW Urine Zediwaz7295-01-65 18:45:00* Test Item Value Reference Range Comments Urine Clarity (test code = 03180-6) CLEAR CLEAR Urine Specific Ctyqzwb9806-18-41 18:45:00* Test Item Value Reference Range Comments Urine Specific [place] (test code = 5811-5) 1.010 1.01 0-1.025 Urine fK0816-26-92 18:45:00* Test Item Value Reference Range Comments Urine pH (test code = 22442-6) 6.5 5-7 Urine Leukocyte Zvylisxj1393-36-76 18:45:00* Test Item Value Reference Range Comments Urine Leukocyte Esterase (test code = 5799-2) NEGATIVE NE GATIVE Urine Ypcmheu2280-69-87 18:45:00* Test Item Value Reference Range Comments Urine Nitrite (test code = 37202-8) NEGATIVE NEGATIVE Urine Veizata1050-58-72 18:45:00* Test Item Value Reference Range Comments Urine Protein (test code = 5804-0) NEGATIVE NEGATIVE Urine Glucose (UA)2019-12-22 18:45:00* Test Item Value Reference Range Comments Urine Glucose (UA) (test code = 2349-9) NEGATIVE NEGATIVE Urine Heuhwds0248-40-04 18:45:00* Test Item Value Reference Range Comments Urine Ketones (test code = 49186-3) NEGATIVE NEGATIVE Urine Xeivaqibiwzp5810-06-22 18:45:00* Test Item Value Reference Range Comments Urine Urobilinogen (test code = 90862-6) 0.2 0.2-1 Urine Zwgsfublu2920-09-55 18:45:00* Test Item Value Reference Range Comments Urine Bilirubin (test code = 1978-6) NEGATIVE NEGATIVE Urine Etohf9260-18-27 18:45:00* Test Item Value Reference Range Comments Urine Blood (test code = 93422-6) NEGATIVE NEGATIVE Urine XDW5796-82-70 18:45:00* Test Item Value Reference Range Comments Urine WBC (test code = 5821-4) 0-5 0-5 Urine ZOK3033-03-27 18:45:00* Test Item Value Reference Range Comments Urine RBC (test code = 65551-5) 0-5 0-5 Urine Wyhlmhjn2794-42-90 18:45:00* Test Item Value Reference Range Comments Urine Bacteria (test code = 62592-4) RARE NONE Urine Epithelial Mbzcf7479-18-75 18:45:00* Test Item Value Reference Range Comments Urine Epithelial Cells (test code = 90882-9) FEW NON E CHEST SINGLE (PORTABLE)2019-12-22 18:43:00 [place] [address] Patient Name: STEPHANIE CAMERON MR #: [id number] : 1960 Age/Sex: 59/F Req #: [id number] Adm Physician: Ordered by: DO GUTIERREZ NP Report #: [id number] Location: ER Room/Bed: Procedure: 0905-2783 D X/CHEST SINGLE (PORTABLE) Exam Date: 12/22/19 Exam T ifrah: 0 REPORT STATUS: Signed EXAMINATION: CHEST SINGLE (PORTABLE) INDICATION: ERMD ORDER [id number] 1830 Y COMPARISON: None FINDINGS: AP view TUBES and LINES: None. LUNGS: Lungs are well inflated. There is no e vidence of pneumonia or pulmonary edema. PLEURA: No pleural effusion or pneumothorax. HEART AND MEDIASTINUM: The cardiomediastinal silhouette is u nremarkable. BONES AND SOFT TISSUES: No acute osseous lesion. Soft ti ssues are unremarkable. UPPER ABDOMEN: No free air under the diaphragm. IMPRESSION: No acute thoracic abnormality. Signed by: Kleber Barnes MD on 12/22/2019 6:43 PM Dictated By: KLEBER BARNES MD El ectronically Signed By: KLEBER BARNES MD on 12/22/191842 Transcribed By: Paola HINSON on 12/22/191842 COPY TO: DO GUTIERREZ VIRTUALIZATION ENGINEER FOOT RIGHT APTHVIGU1070-24-22 23:11:00 [facility] [address] [place] [address] Patient Name: STEPHANIE CAMERON MR #: [id number] : 1960 Age/Sex: 59/F Req #: [id number] Adm Physician: Ordered by: MARYLU VALDOVINOS MD Report #: [id number] Location: ER Room/Bed: Procedure: 1211-0 078 DX/FOOT RIGHT COMPLETE Exam Date: 10/10/19 Exam Time: 2220 REPORT STATUS: Signed X-ray right foot 3 views HISTORY: Pain. COMPARISON: None available. FINDINGS: Bones: No acute displaced fracture. Screw fixation of a healed fifth metatarsal shaft fracture deformity. Metallic anchor in the t alus. Joints: The joint spaces are well-maintained. Soft tissues: Soft tissue swelling and superficial defect along the lateral mid/forefoot. IMPRESSION: No radiographic evidence of osteomyelitis. In the setting of poor wound healing, recommend follow-up radiographs in 6-8 weeks. Soft tissue swelling about the mid/forefoot. Signed by: Maldonado Turner DO on 2018 11:14 PM Dictated By: MALDONADO TURNER DO 13 Transcribed By: SCOTT on 10/10/192313 COPY TO: MARYLU VALDOVINOS MD CHEST 2 NOIKF6824-10-94 18:51:00 [facility] [address] [facility] [place] [address] Patient Name: STEPHANIE CAMERON MR #: [id number] : [birth year] Age/Sex: 59/F Req #: [id number] Adm Physician: Ordered by: GORDON FELIPE VIRTUALIZATION ENGINEER Report #: [id number] Location: ER Room/Bed: Procedure: [id number] DX/CHEST 2 VIEWS Exam Date: 07/03/19 Exam Time: 1830 REPORT STATUS: Signed EXAMIN ATION: PA and lateral views of the chest. COMPARISON: None CLINICAL HI STORY: Trauma DISCUSSION: Lines/tubes: None. Lungs: The l ungs are well inflated and clear. No pneumonia or pulmonary edema. Pleura: No pleural effusion or pneumothorax. Heart and mediastinum: The cardiomed iastinal silhouette is normal. Bones and soft tissues: No acute bony abnor malities. IMPRESSION: No acute cardiopulmonary abnormalities. Signed by: Dr. Leigh Bloom M.D. on 07/03/2019 6:51 PM Dictated By: LEIGH BLOOM MD 50 COPY TO: KATE FELIPE NP CERVICAL SPINE 4 OR 5 LQSKH4721-13-85 18:51:00 [place] [address] Patient Name: STEPHANIE CAMERON MR #: [id number] : 1960 Age/Sex: 59/F Req #: [id number] Adm Physician: Ordered by: GORDON FELIPE VIRTUALIZATION ENGINEER Report #: [id number] Location: ER Room/Bed: Procedure: [id number] DX/CERVICAL SPINE 4 OR 5 VIEWS Exam Date: 07/03/19 E xam Time: 1830 REPORT STATUS: Renetta d Exam: Cervical spine 2 views History: Neck pain Comparison: None. Findings: No fracture or malalignment. Mild degenerative endplate evan nge without significant narrowing. Foramen intact. No abnormal soft tissue c alcification or soft tissue defect. Impression: No acute osseous abn ormality Signed by: Dr. Leigh Bloom M.D. on 07/03/2019 6:52 PM Dictated By: LEIGH BLOOM MD 51 Transcribed By: SCOTT on 07/03/191851 COPY TO: GORDON FLOWERS VIRTUALIZATION ENGINEER SP LUMBAR, COMPLETE MIN 6DY2129-18-05 18:48:00 [place] [address] Patient Name: STEPHANIE CAMERON MR #: [id number] : 1960 Age/Sex: 59/F Req #: [id number] Adm Physician: Ordered by: GORDON FELIPE NP Report #: [id number] Location: ER Room/Bed: Procedure: DX/SP LUMBAR, COMPLETE MIN 4VW Exam Date: 07/03/19 E xam Time: 1830 REPORT STATUS: Renetta d Exam: Lumbar spine AP lateral oblique History: Back pain Com parison: None. Findings: No fracture. Degenerative endplate change througho ut the lumbar spine. Facet arthrosis L5-S1. Impression: No acute oss eous abnormality Signed by: Dr. Leigh Bloom M.D. on 07/03/2019 6:49 PM Dictated By: LEIGH BLOOM MD 48 Transcribed By: SCOTT on 07/03/191848 COPY TO : GORDON FELIPE NP Urine Emnv6807-36-19 17:34:00* Test Item Value Reference Range Comments Urine Test (test code = 2106-3) NEGATIVE NEGATI VE Differential Total Cells Ylgzkmv0425-86-40 19:00:00* Test Item Value Reference Range Comments Differential Total Cells Counted (test code = Differen tial Total Cells Counted) 100 Neutrophils % (Manual)2019-03-15 19:00:00* Test Item Value Reference Range Comments Neutrophils % (Manual) (test code = 76033-1) 48 40- 74 Lymphocytes % (Manual)2019-03-15 19:00:00* Test Item Value Reference Range Comments Lymphocytes % (Manual) (test code = 737-7) 42 19-48 Monocytes % (Manual)2019-03-15 19:00:00* Test Item Value Reference Range Comments Monocytes % (Manual) (test code = 744-3) 6 3.4-9.0 Eosinophils % (Manual)2019-03-15 19:00:00* Test Item Value Reference Range Comments Eosinophils % (Manual) (test code = 714-6) 1 0-7 Reactive Fecroaccusx1207-17-22 19:00:00* Test Item Value Reference Range Comments Reactive Lymphocytes (test code = 03407-1) 3 CHEST SINGLE (PORTABLE)2019-03-15 18:05:00 [place] [address] Patient Name: STEPHANIE CAMERON MR #: [id number] : 1960 Age/Sex: 58/F Req #: [id number] Adm Physician: Ordered by: JUAN CARLOS CAT MD Report #: [id number] Location: ER Room/Bed: Procedure: 5636-2197 D X/CHEST SINGLE (PORTABLE) Exam Date: Exam Time: REPORT STATUS: Signed A single fro ntal view of the chest. HISTORY: Chest pain, shortness of breath COMPARI SON: Chest radiograph February 26, 2019. DISCUSSION: Portable techniqu e, limits sensitivity of the exam. Soft tissue attenuation partially limits s ensitivity of the exam. Overlying monitoring leads. Tubes/Lines: None Lungs and pleura: Interval increased patchy right infrahilar opacity. No definite pleural effusion or pneumothorax is identified. Heart and medi astinum: The cardiomediastinal silhouette appears unremarkable. Bones a nd soft tissues: Appear unremarkable, given this limited exam. IMPRE SSION: Right infrahilar opacity, considerations include: atelectasis, pneumon ia, and/or aspiration in the appropriate settings. Recommend short term follow up PA and lateral chest radiographs, in 6-8 weeks, to evaluate for resolution. Signed by: Hardik HobbsOJerry, M.M.M. on 03/15/2019 6:07 PM Dictated By: BRITTANEY FORDE DO 06 Transcribed By: SCOTT on 03/15/191806 COPY TO: JUAN CARLOS CAT MD CHEST SINGLE (NOT PORTABLE)2019-02-26 17:03:00 [place] [address] Patient Name: STEPHANIE CAMERON MR #: [id number] : 1960 Age/Sex: 58/F Req #: [id number] Adm Physician: Ordered by: AKBAR MENDEZ VIRTUALIZATION ENGINEER Report #: [id number] Location: ER Room/Bed: Procedure: [id number] DX/ CHEST SINGLE (NOT PORTABLE) Exam Date: 02/26/19 Exam Time: 1515 REPORT STATUS: Signed EXAM: CHEST SINGLE (NOT PORTABLE), AP Portable DATE: 02/26/2019 Time stamp on exam: 3:29 PM INDICATION: Hyperglycemia COMPARISON: 02/21/2019 FINDINGS: LINES/TUBES: None LUNGS: Bibasilar atelectasis. PLEURA: No effus ions or pneumothorax. HEART AND MEDIASTINUM: Normal size and contour. BONES AND SOFT TISSUES: No acute findings. IMPRESSION: Bibasilar atelecta sis. Signed by: Dr. Luc Easley DO on 02/26/2019 5:05 PM Dictated By: LUC EASLEY DO 04 COPY TO: KIARA MENDEZ VIRTUALIZATION ENGINEER CHEST 2 AFODF2810-81-41 14:26:00 [place] [address] Patient Name: STEPHANIE CAMERON MR #: [id number] : 1960 Age/Sex: 58/F Req #: [id number] Adm Physician: Ordered by: SHANNON GONZALEZ MD Report #: [id number] Location: ER Room/Bed: Procedure: [id number] DX/ CHEST 2 VIEWS Exam Date: 02/21/19 Exam Time: [...] UPPER ABDOMEN: No free air under the diaphr agm. IMPRESSION: No acute radiographic abnormality. Signed by: Dr. Sukhi Alonso MD on 02/21/2019 2:28 PM Dictated By: SUKHI ALONSO MD Elect ronically Signed By: SUKHI ALONSO MD on 02/21/19 142 Transcribed By: SCOTT on 02/21/191427 COPY TO: SHANNON GONZALEZ MD BHBEQYNO-H9882-42-21 18:32:00* Test Item Value Reference Range Comments TROPONIN-I (test code = TROPI) <0.015 ng/mL 0.00-0.056 COMPREHENSIVE METABOLIC ZVNON7265-19-28 16:25:00* Test Item Value Reference Range Comments SODIUM (test code = NA) 140 mmol/L 135-148 POTASSIUM (test code = K) 4.4 mmol/L 3.5-5.1 CHLORIDE (test code = CL) 102 mmol/L 101-109 CARBON DIOXIDE (test code = CO2) 24.2 mmol/L 21-32 ANION GAP (test code = GAP) 18 mmol/L 10-20 GLUCOSE (test code = GLU) 250 mg/dL 74-106 BLOOD UREA NITROGEN (test code = BUN) 14 mg/dL 3-21 CREATININE (test code = CREAT) 1.15 mg/dL 0.55-1.3 BUN/CREATININE RATIO (test code = BUN/CREA) 12.2 10-2 0 TOTAL PROTEIN (test code = PROT) 7.1 g/dL 6.5-8.4 ALBUMIN (test code = ALB) 3.1 g/dL 3.4-4.8 GLOBULIN (test code = GLOB) 4.0 G/DL 1-10 ALBUMIN/GLOBULIN RATIO (test code = A/G) 0.8 RATIO 0.75-1. 50 CALCIUM (test code = CA) 8.9 mg/dL 8.4-10.2 BILIRUBIN TOTAL (test code = BILT) 0.20 mg/dL 0.0-1.0 SGOT/AST (test code = AST) 20 U/L 6-32 SGPT/ALT (test code = ALT) 17 U/L 12-78 Note: Change in REFERENCE RANGE due to new reagent method. ALKALINE PHOSPHATASE TOTAL (test code = ALKP) 170 U/L 38 -126 TJXJKX6694-04-38 16:25:00* Test Item Value Reference Range Comments LIPASE (test code = LIP) 55 U/L 128-270 ESCVUMJCV2047-53-67 16:25:00* Test Item Value Reference Range Comments MAGNESIUM (test code = MAG) 1.3 mg/dL 1.6-2.3 CPK-MB IOEBUAZ1170-31-45 16:25:00* Test Item Value Reference Range Comments CREATINE KINASE (CK) (test code = CK) 34 U/L 26-192 CKMB (test code = CKMBT) 0.7 ng/mL 0.0-5.0 RELATIVE % INDEX (test code = REL%) 2.1 % KMMHDVJF-A2919-83-21 16:25:00* Test Item Value Reference Range Comments TROPONIN-I (test code = TROPI) <0.015 ng/mL 0.00-0.056 B-TYPE NATRIURETIC XYMBKHF1149-41-60 16:23:00* Test Item Value Reference Range Comments B-TYPE NATRIURETIC PEPTIDE (test code = BNP) 16.8 pg/mL 0-1 00 I-XOYJH1196-61TBQNR6774-39-27 16:20:00* Test Item Value Reference Range Comments D-DIMER (test code = DDIMER) < 100 ng/ml < 600 - XR CHEST 1 D0910-74-30 16:16:00 Name: STEPHANIE CAMERON [facility] : 1960 Age/S:58 /F [address] [facility] Unit#:[id number] Loc: [place] [address] Phys: Yaakov Cho MD Dis Date: PHONE #: [phone] Status: REG ER FAX #: [phone] Exam Date: 01/18/2019 Reason: CP EXAMS: CPT CODE: [id number] XR CHEST 1 V 45921 EXAM: Chest X-ray, 1 view; CLINICAL HISTORY: Chest pain; FINDINGS: The lungs are clear, no infiltrates, no edema; no effusions; no pneumothorax; normal cardiomediastinal silhouette. IMPRESSION: Normal chest x-ray. at 3329 Reported and signed by: Conor Urrutia M.D. CC: Yaakov Cho MD Technologist: SILVIA AGUIAR, RT(R),CT Trnscrpt Data: 01/18/2019 (7692) [email or web address] Orig Print D/T: S: 01/18/2019 (6514) PAGE 1 Signed Report COMPREHENSIVE METABOLIC [id number] 16:12:00* Test Item Value Reference Range Comments SODIUM (test code = NA) 140 mmol/L 135-148 POTASSIUM (test code = K) 4.4 mmol/L 3.5-5.1 CHLORIDE (test code = CL) 102 mmol/L 101-109 CARBON DIOXIDE (test code = CO2) 24.2 mmol/L 21-32 ANION GAP (test code = GAP) 18 mmol/L 10-20 GLUCOSE (test code = GLU) 250 mg/dL 74-106 BLOOD UREA NITROGEN (test code = BUN) 14 mg/dL 3-21 CREATININE (test code = CREAT) 1.15 mg/dL 0.55-1.3 BUN/CREATININE RATIO (test code = BUN/CREA) 12.2 10-2 0 TOTAL PROTEIN (test code = PROT) gram/dL 6.4-8.2 ALBUMIN (test code = ALB) g/dL 3.4-5.0 GLOBULIN (test code = GLOB) g/dL 2.7-4.2 ALBUMIN/GLOBULIN RATIO (test code = A/G) 0.75-1. 50 CALCIUM (test code = CA) 8.9 mg/dL 8.4-10.2 BILIRUBIN TOTAL (test code = BILT) mg/dL 0.2-1.2 SGOT/AST (test code = AST) IUnit/L 15-37 SGPT/ALT (test code = ALT) U/L 10-69 ALKALINE PHOSPHATASE TOTAL (test code = ALKP) IUnit/L 45 -117 [id number] 16:12:00* Test Item Value Reference Range Comments LIPASE (test code = LIP) Unit/L 144-286 FMSVBQGBR6562-55-84 16:12:00* Test Item Value Reference Range Comments MAGNESIUM (test code = MAG) mg/dL 1.8-2.4 CPK-MB [id number] 16:12:00* Test Item Value Reference Range Comments CREATINE KINASE (CK) (test code = CK) IUnit/L 26-208 CKMB (test code = CKMBT) ng/mL 0-6.0 RELATIVE % INDEX (test code = REL%) % NYEENMZF-[id number] 16:12:00* Test Item Value Reference Range Comments TROPONIN-I (test code = TROPI) ng/mL 0-0.045 CBC W/AUTO [id number] 16:05:00* Test Item Value Reference Range Comments WHITE BLOOD CELL (test code = WBC) 12.7 K/mm3 4.5-12.5 RED BLOOD CELL (test code = RBC) 4.35 mill/mm3 3.7-5.2 HEMOGLOBIN (test code = HGB) 11.4 gram/dL 11.5-15.5 HEMATOCRIT (test code = HCT) 37.1 % 36.0-46.0 MEAN CELL VOLUME (test code = MCV) 85.3 fL 80-98 MEAN CELL HGB (test code = MCH) 26.2 picogram 27.0-33.0 MEAN CELL HGB CONCETRATION (test code = MCHC) 30.7 gram/dL 33 .0-36.0 RED CELL DISTRIBUTION WIDTH (test code = RDW) 17.7 % 11 .6-16.2 RED CELL DISTRIBUTION WIDTH SD (test code = RDW-SD) 53.6 fL 39.1-52.0 PLATELET COUNT (test code = PLT) 341 K/mm3 150-450 MEAN PLATELET VOLUME (test code = MPV) 9.7 fL 6.7-11.0 NEUTROPHIL % (test code = NT%) 68.2 % 39.0-69.0 LYMPHOCYTE % (test code = LY%) 25.6 % 25.0-55.0 MONOCYTE % (test code = MO%) 4.9 % 0.0-10.0 EOSINOPHIL % (test code = EO%) 0.9 % 0.0-5.0 BASOPHIL % (test code = BA%) 0.4 % 0.0-1.0 NEUTROPHIL # (test code = NT#) 8.66 K/mm3 1.8-7.7 LYMPHOCYTE # (test code = LY#) 3.25 K/mm3 1.0-5.0 MONOCYTE # (test code = MO#) 0.62 K/mm3 0-0.8 EOSINOPHIL # (test code = EO#) 0.12 K/mm3 0.0-0.5 BASOPHIL # (test code = BA#) 0.05 K/mm3 0.0-0.2 MANUAL DIFF REQUIRED (test code = MDIFF) NO [id number] 22:37:00 [place] [address] Patient Name: STEPHANIE CAMERON MR #: [id number] : 1960 Age/Sex: 58/F Req #: [id number] Adm Physician: Ordered by: MARYLU VALDOVINOS MD Report #: [id number] Location: ER Room/Bed: Procedure: [id number] 071 DX/COCCYX Exam Date: 12/22/18 Exam Time: 2200 REPORT STATUS: Signed COCCYX - 2 v iews HISTORY: Pain COMPARISON: None available. FINDINGS: See impression. IMPRESSION: Very limited study due to overlying bowel gas a nd soft tissue attenuation. No definite evidence of acute displaced fracture. Signed by: Dr. Elvie Mai MD on 12/22/2018 10:38 PM Dictated By: ELVIE MAI MD 37 T ranscribed By: SCOTT on 12/22/182237 COPY TO: MARYLU VALDOVINOS MD LUMBAR 3 NUKS2004-26-77 22:36:00 [place] [address] Patient Name: STEPHANIE CAMERON MR #: [id number] : 1960 Age/Sex: 58/F Req #: [id number] Adm Physician: Ordered by: MARYLU VALDOVINOS MD Report #: [id number] Location: ER Room/Bed: Procedure: [id number] 070 DX/LUMBAR 3 VIEW Exam Date: 12/22/18 Exam Time: 2200 REPORT STATUS: Signed Lumba r Spine Radiographs: [...] radiographic abnorma lity. Signed by: Dr. Elvie Mai MD on 12/22/2018 10:37 PM Dictate d By: ELVIE MAI MD 237 Transcribed By: SCOTT on 12/22/182236 COPY TO: DEION VALDOVINOS MD CT ABDOMEN/PELVIS [id number] 22:49:00 [place] [address] Patient Name: STEPHANIE CAMERON MR #: [id number] : 1960 Age/Sex: 58/F Req #: [id number] Adm Physician: Ordered by: JUAN CARLOS CAT MD Report #: [id number] Location: ER Room/Bed: Procedure: [id number] C T/CT ABDOMEN/PELVIS WO Exam Date: 10/05/18 [...] on 10/05/2018 10:55 PM D ictated By: ULDA DAWN MD 54 Transcribed By: SCOTT on 10/05/182254 COPY TO: JUAN CARLOS CAT MD CHEST SINGLE (PORTABLE)2018-10-05 20:49:00 [place] [address] Patient Name: STEPHANIE CAMERON MR #: [id number] : 1960 Age/Sex: 58/F Req #: [id number] Adm Physician: Ordered by: JUAN CARLOS CAT MD Report #: [id number] Location: ER Room/Bed: Procedure: [id number] D X/CHEST SINGLE (PORTABLE) Exam Date: 10/05/18 Exam T ifrah: 1945 REPORT STATUS: Signed EXAMINATION: CHEST SINGLE (PORTABLE) [...] acute thoracic abnormality. Signed by: Dr. Dennise Loredo M.D. on 10/05/2018 8:50 PM Dictated By: CHRISTINA LOREDO MD, MD 49 COPY TO: KATHYA CAT MD CHEST SINGLE (PORTABLE)2018-06-05 17:59:00 [place] [address] Patient Name: STEPHANIE CAMERON MR #: [id number] : 1960 Age/Sex: 58/F Req #: [id number] Adm Physician: Ordered by: STEVEN STAPLETON VIRTUALIZATION ENGINEER Report #: [id number] Location: ER Room/Bed: Procedure: [id number] DX/CHEST SINGLE (PORTABLE) Exam Date: 06/05/18 Exam [...] definite focal consolidation. Dictat ed by: Elvie Mai M.D. on 06/05/2018 at 17:59 Electronically approved by: Elvie Mai M.D. on 06/05/2018 at 17:59 Dictated By: Aris MAI MD 58 Tr anscribed By: OSCAR on 06/05/181758 COPY TO: STEVEN STAPLETON NP CT BRAIN [id number] 17:35:00 [place] [address] Patient Name: STEPHANIE CAMERON MR #: [id number] : 1960 Age/Sex: 58/F Req #: [id number] Adm Physician: Ordered by: STEVEN STAPLETON NP Report #: [id number] Location: ER Room/Bed: Procedure: [id number] CT/CT BRAIN WO Exam Date: 06/05/18 Exam [...] TO: STEVEN STAPLETON NP CT CERVICAL SPINE RE0555-06-61 21:37:00 [place] [address] Patient Name: STEPHANIE CAMERON MR #: [id number] : 1960 Age/Sex: 57/F Req #: [id number] Adm Physician: Ordered by: MARYLU VALDOVINOS MD Report #: [id number] Location: ER Room/Bed: Procedure: 7290-2489 CT/CT CERVICAL SP INE WO Exam Date: [...] since November 06, 2017. Signed by: Dr. Alisia Ledesma M.D. on 04/06/2018 9:38 PM Dictated By: MICHAEL TALLEY MD 37 Transcribed By: SCOTT on 04/06/182137 COPY TO: MARYLU VALDOVINOS MD CT BRAIN [id number] 21:36:00 [place] [address] Patient Name: STEPHANIE CAMERON MR #: [id number] : 1960 Age/Sex: 57/F Req #: [id number] Adm Physician: Ordered by: MARYLU VALDOVINOS MD Report #: [id number] Location: ER Room/Bed: Procedure: [id number] CT/CT BRAIN WO E xam Date: 04/06/18 [...] TO: MARYLU VALDOVINOS CHEST SINGLE (PORTABLE)2018-04-06 17:00:00 [place] [address] Patient Name: STEPHANIE CAMERON MR #: [id number] : 1960 Age/Sex: 57/F Req #: [id number] Adm Physician: Ordered by: MANUELITO FISH MD Report #: [id number] Location: ER Room/Bed: Procedure: 7206-0083 DX/CHEST SINGLE (ANTOLIN BLE) Exam Date: Exam Time: REPORT STATUS: Si gned PROCEDURE: A single AP view of the chest. COMPARISON: Patients [facility], DX, CHEST SINGLE (PORTABLE), 02/04/2018, 5:46. INDICATION [...] 04/06/18 1700 COPY TO: Nidhi FISH MD Bedside Kadaqfy9132-05-81 19:14:00* Test Item Value Reference Range Comments Bedside Glucose (test code = 03577-4) 187 70-120 Meter ID: [id number] VDB9133-46-78 17:51:00* Test Item Value Reference Range Comments Urine WBC (test code = 5821-4) 0-5 0-5 Urine PHW5727-81-22 17:51:00* Test Item Value Reference Range Comments Urine RBC (test code = 49561-7) 0-5 0-5 Urine Rrvvowju0003-23-19 17:51:00* Test Item Value Reference Range Comments Urine Bacteria (test code = 91256-8) FEW NONE Urine Epithelial Fzyfk0693-42-91 17:51:00* Test Item Value Reference Range Comments Urine Epithelial Cells (test code = 35883-9) FEW NON E Urine Klpdm4212-00-62 17:49:00* Test Item Value Reference Range Comments Urine Color (test code = 5778-6) YELLOW YELLOW Urine Zbiydsj0511-15-26 17:49:00* Test Item Value Reference Range Comments Urine Clarity (test code = 02689-3) CLEAR CLEAR Urine Specific Ygjmavw3607-84-16 17:49:00* Test Item Value Reference Range Comments Urine Specific [place] (test code = 5811-5) 1.015 1.01 0-1.025 Urine bZ1618-20-01 17:49:00* Test Item Value Reference Range Comments Urine pH (test code = 36005-4) 5 5-7 Urine Leukocyte Pohaffhl4032-25-33 17:49:00* Test Item Value Reference Range Comments Urine Leukocyte Esterase (test code = 5799-2) NEGATIVE NE GATIVE Urine Jozuews3418-57-56 17:49:00* Test Item Value Reference Range Comments Urine Nitrite (test code = 08037-2) NEGATIVE NEGATIVE Urine Uqrfqsv2598-76-38 17:49:00* Test Item Value Reference Range Comments Urine Protein (test code = 5804-0) 1+ NEGATIVE Urine Glucose (UA)2017-07-15 17:49:00* Test Item Value Reference Range Comments Urine Glucose (UA) (test code = 2349-9) 3+ NEGATIVE Urine Bvsmgti7446-86-15 17:49:00* Test Item Value Reference Range Comments Urine Ketones (test code = 47099-6) NEGATIVE NEGATIVE Urine Rgaycvwllwvp9748-55-43 17:49:00* Test Item Value Reference Range Comments Urine Urobilinogen (test code = 19147-4) 0.2 0.2-1 Urine Xaqchuwxw0598-36-67 17:49:00* Test Item Value Reference Range Comments Urine Bilirubin (test code = 1978-6) NEGATIVE NEGATIVE Urine Dxvei7951-75-74 17:49:00* Test Item Value Reference Range Comments Urine Blood (test code = 45179-1) NEGATIVE NEGATIVE Sodium Haojb8137-52-56 17:19:00* Test Item Value Reference Range Comments Sodium Level (test code = 2951-2) 140 136-145 Potassium Abuzq0953-46-33 17:19:00* Test Item Value Reference Range Comments Potassium Level (test code = 2823-3) 4.3 3.5-5.1 Chloride Wjtew9108-88-81 17:19:00* Test Item Value Reference Range Comments Chloride Level (test code = 2075-0) 105 98-107 Carbon Dioxide Zxkrm1422-25-95 17:19:00* Test Item Value Reference Range Comments Carbon Dioxide Level (test code = 2028-9) 25 22-29 Anion Kqc9038-24-45 17:19:00* Test Item Value Reference Range Comments Anion Gap (test code = 26651-4) 14.3 8-16 Blood Urea Uxuctwuk5346-28-72 17:19:00* Test Item Value Reference Range Comments Blood Urea Nitrogen (test code = 3094-0) 29 7-26 Wvdlloeazl1122-71-79 17:19:00* Test Item Value Reference Range Comments Creatinine (test code = 2160-0) 1.63 0.57-1.11 BUN/Creatinine Cnwtn9573-09-17 17:19:00* Test Item Value Reference Range Comments BUN/Creatinine Ratio (test code = 3097-3) 18 6-25 Estimat Glomerular Filtration Lkpz9542-31-11 17:19:00* Test Item Value Reference Range Comments Estimat Glomerular Filtration Rate (test code = 77799-3) 33 >60 Ranges were taken from the National Kidney Disease Education Program and the [facility] literature.Reference ranges:60 or greater: Bysjoc72-75 ( for 3 consecutive months): Chronic kidney disease 15 or less: Kidney failure Glucose Uqzae6173-17-45 17:19:00* Test Item Value Reference Range Comments Glucose Level (test code = ETV0554) 103 74-118 Calcium Warsv3687-50-89 17:19:00* Test Item Value Reference Range Comments Calcium Level (test code = 97890-3) 9.7 8.4-10.2 Total Yzrklsiwp1362-54-53 17:19:00* Test Item Value Reference Range Comments Total Bilirubin (test code = 1975-2) 0.2 0.2-1.2 Aspartate Amino Transf (AST/SGOT)2017-07-15 17:19:00* Test Item Value Reference Range Comments Aspartate Amino Transf (AST/SGOT) (test code = Aspartate Amino Transf (AST/SGOT)) 9 5-34 Alanine Aminotransferase (ALT/SGPT)2017-07-15 17:19:00* Test Item Value Reference Range Comments Alanine Aminotransferase (ALT/SGPT) (test code = 1742-6) 7 0-55 Total Irdgivf0507-07-30 17:19:00* Test Item Value Reference Range Comments Total Protein (test code = 2885-2) 6.9 6.5-8.1 Kdxzvxe8393-97-89 17:19:00* Test Item Value Reference Range Comments Albumin (test code = 1751-7) 3.1 3.5-5.0 Bawjfntg3139-70-15 17:19:00* Test Item Value Reference Range Comments Globulin (test code = 07979-3) 3.8 2.3-3.5 Albumin/Globulin Ewnrr6799-95-02 17:19:00* Test Item Value Reference Range Comments Albumin/Globulin Ratio (test code = 1759-0) 0.8 0.8- 2.0 Alkaline Hjircfvztbl1251-40-30 17:19:00* Test Item Value Reference Range Comments Alkaline Phosphatase (test code = 6768-6) 143 40-150 CHEST SINGLE (PORTABLE)2017-07-15 17:11:00 [place] [address] Patient Name: STEPHANIE CAMERON MR #: [id number] : 1960 Age/Sex: 57/F Req #: [id number] Adm Physician: Ordered by: SIOBHAN PORTER MD Report #: [id number] Location: ER Room/Bed: Procedure: 0522-0354 DX/CHEST SINGLE (PORTABLE ) Exam Date: 07/15/17 [...] on 07/15/171710 COPY TO: SIOBHAN PORTER MD White Blood Nanwz4083-74-98 17:01:00* Test Item Value Reference Range Comments White Blood Count (test code = 6690-2) 14.40 4.8-10.8 Red Blood Cyhtb0381-01-62 17:01:00* Test Item Value Reference Range Comments Red Blood Count (test code = 789-8) 3.93 3.6-5.1 Vilsybqjet5989-53-76 17:01:00* Test Item Value Reference Range Comments Hemoglobin (test code = 78600-7) 11.2 12.0-16.0 Puzsxocwiy5416-13-82 17:01:00* Test Item Value Reference Range Comments Hematocrit (test code = 4544-3) 34.8 34.2-44.1 Mean Corpuscular Qqbseo9953-10-69 17:01:00* Test Item Value Reference Range Comments Mean Corpuscular Volume (test code = 787-2) 88.5 81-9 9 Mean Corpuscular Ktbxouumzj3843-22-69 17:01:00* Test Item Value Reference Range Comments Mean Corpuscular Hemoglobin (test code = 785-6) 28.5 28-32 Mean Corpuscular Hemoglobin Jxwtiqh7965-49-77 17:01:00* Test Item Value Reference Range Comments Mean Corpuscular Hemoglobin Concent (test code = 786-4) 32.2 31-35 Red Cell Distribution Dbzbv9079-11-11 17:01:00* Test Item Value Reference Range Comments Red Cell Distribution Width (test code = 88044-1) 15.4 11.7-14.4 Platelet Mytio4663-12-41 17:01:00* Test Item Value Reference Range Comments Platelet Count (test code = 777-3) 355 140-360 Neutrophils (%) (Auto)2017-07-15 17:01:00* Test Item Value Reference Range Comments Neutrophils (%) (Auto) (test code = 45621-1) 62.3 38. 7-80.0 Lymphocytes (%) (Auto)2017-07-15 17:01:00* Test Item Value Reference Range Comments Lymphocytes (%) (Auto) (test code = 736-9) 27.3 18.0- 39.1 Monocytes (%) (Auto)2017-07-15 17:01:00* Test Item Value Reference Range Comments Monocytes (%) (Auto) (test code = 5905-5) 7.2 4.4-11 .3 Eosinophils (%) (Auto)2017-07-15 17:01:00* Test Item Value Reference Range Comments Eosinophils (%) (Auto) (test code = 713-8) 1.7 0.0-6 .0 Basophils (%) (Auto)2017-07-15 17:01:00* Test Item Value Reference Range Comments Basophils (%) (Auto) (test code = 706-2) 0.6 0.0-1.0 IM GRANULOCYTES %2017-07-15 17:01:00* Test Item Value Reference Range Comments IM GRANULOCYTES % (test code = IM GRANULOCYTES %) 0.9 0.0-1.0 Neutrophils # (Auto)2017-07-15 17:01:00* Test Item Value Reference Range Comments Neutrophils # (Auto) (test code = 751-8) 9.0 2.1-6.9 Lymphocytes # (Auto)2017-07-15 17:01:00* Test Item Value Reference Range Comments Lymphocytes # (Auto) (test code = 60443-3) 3.9 1.0-3 .2 Monocytes # (Auto)2017-07-15 17:01:00* Test Item Value Reference Range Comments Monocytes # (Auto) (test code = 742-7) 1.0 0.2-0.8 Eosinophils # (Auto)2017-07-15 17:01:00* Test Item Value Reference Range Comments Eosinophils # (Auto) (test code = 711-2) 0.2 0.0-0.4 Basophils # (Auto)2017-07-15 17:01:00* Test Item Value Reference Range Comments Basophils # (Auto) (test code = 704-7) 0.1 0.0-0.1 Absolute Immature Granulocyte (bcfn5772-49-73 17:01:00* Test Item Value Reference Range Comments Absolute Immature Granulocyte (auto (romelia t code = Absolute Immature Granulocyte (auto) 0.13 0-0.1 CHEST SINGLE (PORTABLE) [place] [address] [place] [address] Patient Name: STEPHANIE CAMERON MR #: [id number] : 1960 Age/Sex: 57/F Req #: [id number] Adm Physician: LOLA BOUCHER MD Ordered by: AKBAR MENDEZ VIRTUALIZATION ENGINEER Report #: [id number] Location: [facility] Room/Bed: [facility] 181-1 Procedure: 0498-5609 D X/CHEST SINGLE (PORTABLE) Exam Date: 02/04/18 [...] TO: AKBAR MENDEZ NP CHEST SINGLE (PORTABLE) [place] [address] Patient Name: STEPHANIE CAMERON MR #: [id number] : 1960 Age/Sex: 57/F Req #: [id number] Adm Physician: Ordered by: AKBAR MENDEZ NP Report #: [id number] Location: ER Room/Bed: Procedure: 8160-5246 DX/CHEST SINGLE (PORTABLE) Ex am Date: 02/03/18 [...] on 02/03/18 1137 COPY TO: AKBAR MENDEZ VIRTUALIZATION ENGINEER SHOULDER LEFT COMPLETE [place] [address] Patient Name: STEPHANIE CAMERON MR #: [id number] : 1960 Age/Sex: 57/F Req #: [id number] Adm Physician: Ordered by: DIMITRI MCFARLAND Report #: [id number] Location: ER Room/Bed: Procedure: [id number] DX/SHOULDER LEFT COMPLETE Exam Date: 11/06/17 Exam [...] 5:30 PM Dictated By: RAYMON MIRANDA MD 173 Transcribed By: SCOTT on 11/06/17 1730 COPY TO: DIMITRI MCFARLAND CT CERVICAL SPINE [place] [address] Patient Name: STEPHANIE CAMERON MR #: [id number] : 1960 Age/Sex: 57/F Req #: [id number] Adm Physician: Ordered by: WALE HALE MD Report #: [id number] Location: ER Room/Bed: Procedure: [id number] CT/CT CERVICAL SPINE JT richards Date: 11/06/17 Exam Time: 1240 REPORT STATU [...] GARZA MD El ectronically Signed By: ANMOL AGRZA MD on 11/06/17 1323 Transcribed By: SCOTT on 11/06/17 1323 COPY TO: WALE HALE MD CT BRAIN [place] [address] Patient Name: STEPHANIE CAMERON MR #: [id number] : 1960 Age/Sex: 57/F Req #: [id number] Adm Physician: Ordered by: WALE HALE MD Report #: [id number] Location: Room/Bed: Procedure: 2292-3008 CT/CT BRAIN WO Exam Date: 11/06/17 Exam [...] 1:23 PM Dictated By: ANMOL GARZA MD [facility] Signed By: ANMOL GARZA MD on 11/06/17 1323 Transcribed By: SCOTT awad 11/06/17 1323 COPY TO: WALE HALE MD MRI SHOULDER RIGHT WO [place] [address] Patient Name: STEPHANIE CAMERON MR #: [id number] : 1960 Age/Sex: 57/F Req #: [id number] [facility] Physician: Ordered by: CORRIE DEVRIES DO Report #: [id number] Location: MRI Room/Bed: Procedure: [id number] MRI/MRI SHOULDER RIGHT WO Ex am Date: [...] T O: CORRIE DEVRIES DO CT BRAIN WO [place] [address] Patient Name: STEPHANIE CAMERON MR #: [id number] : 1960 Age/Sex: 57/F Req #: [id number] Adm Physician: Ordered by: MARYLU VALDOVINOS MD Report #: [id number] Location: ER Room/Bed: Procedure: [id number] CT/CT BRAIN WO Exam Da te: 09/29/17 Exam Time: 1999 REPORT STATUS: Sig vasyl EXAMINATION: Head CT without contrast. HISTORY:Altered mental s tatus. COMPARISON:Multiple prior studies, most recent CT brain from 07/22/20 17. TECHNIQUE: Multidetector axial images were obtained from [...] TO: Alverto VALDOVINOS MD CHEST SINGLE (PORTABLE) [place] [address] Patient Name: STEPHANIE CAMERON MR #: [id number] : 1960 Age/Sex: 57/F Req #: [id number] Adm Physician: Ordered by: MARYLU VALDOVINOS MD Report #: [id number] Location: ER Room/Bed: Procedure: [id number] DX/CHEST SINGLE (PORTAB LE) Exam Date: 09/29/17 Exam Time: 1999 REPORT STATUS: Signed EXAM: CHEST SINGLE (PORTABLE), AP DATE: 09/29/2017 7:31 PM Time stamp on Exam: 7:44 PM INDICATION: Altered mental status COMPARISON: 9 / FINDINGS: See impression. IMPRESSION: 1. Cardiomediastina l silhouette is normal. No infiltrates or nodules are seen. There is no pneumo thorax or effusion. 2. Regional osseous structures are unremarkable. S igned by: Dr. Luc Easley DO on 09/29/2017 8:59 PM Dictated By: LUC EASLEY DO 58 Transcr ibed By: SCOTT on 09/29/172058 COPY TO: MARYLU VALDOVINOS MD CHEST 2 VIEWS [place] [address] Patient Name: STEPHANIE CAMERON MR #: [id number] : 1960 Age/Sex: 57/F Req #: [id number] Adm Physician: LOLA BOUCHER MD Ordered by: LOLA BOUCHER MD Report #: [id number] Location: [facility]/SURG[facility] Room/Bed: [facility] Procedure: 4753-3561 DX/CHEST 2 VIEWS Exam Date: 08/18/17 Exam Time: 1200 REPORT STATUS: Signed PROCEDURE: Frontal and lateral views of the est. COMPARISON: 08/16/17. INDICATIONS: PNEUMONIA FINDIN GS: [...] at 12:28 Dictated By: RICK MOHAN MD 1228 Transcribed By: OSCAR on 08/18/17 1228 COPY TO: LOLA BOUCHER MD SHOULDER RIGHT COMPLETE [place] [address] Patient Name: STEPHANIE CAMERON MR #: [id number] : 1960 Age/Sex: 57/F Req #: [id number] Adm Physician: LOLA BOUCHER MD Ordered by: LOLA BOUCHER MD Report #: [id number] Location: MED/SURG3 Room/Bed: [facility] Procedure: [id number] DX/SHOULDER RIGHT COMPLETE Exam Date: 08/18/17 Exam [...] TO: LOLA BOUCHER MD CHEST [address], [place], [place] [address] Patient Name: STEPHANIE CAMERON MR #: [id number] : 1960 Age/Sex: 57/F Req #: [id number] Adm Physician: Ordered by: LUZ SALAS Report #: [id number] Location: ER Room/Bed: Procedure: [id number] DX/CHEST 2 VIEWS Exam Date: 08/16/17 Exam [...] concerning for pneumonia. Dic tated by: Raymon Miranda M.D. on 08/16/2017 at 16:18 Electronically approved b y: Raymon Miranda M.D. on 08/16/2017 at 16:18 Dictated By: RAYMON MIRANDA MD 17 Transcribed By: OSCAR on 08/16/171617 COPY TO: LUZ SALAS CT BRAIN WO [place] [address] Patient Name: STEPHANIE CAMERON MR #: [id number] : 1960 Age/[facility]: 57[id number] Req #: [id number] Adm Physician: Ordered by: JACIEL BECKER MD Report #: [id number] Location: ER Room/Bed: Procedure: [id number] CT/CT BRAIN WO Exam Date: Exam Time: 1841 REPORT STATUS: Signed EXAMINATION: Head CT without [...] TO: JACIEL BECKER MD CHEST SINGLE (PORTABLE) [place] [address] Patient Name: STEPHANIE CAMERON MR #: [id number] : 1960 Age/Sex: 57/F Req #: [id number] Adm Physician: Ordered by: JACIEL BECKER MD Report #: [id number] Location: ER Room/Bed: Procedure: [id number] DX/CHEST SINGLE (PORTABLE) E xam Date: 07/22/17 [...] thoracic abnormalit y. Signed by: Dr. Susie Stewart M.D. on 07/22/2017 8:04 PM Di ctated By: SUSIE STEWART MD 03 Transcribed By: SCOTT on 07/22/172003 JAVA SCALA DEVELOPER Y TO: JACIEL BECKER MD CHEST SINGLE (PORTABLE) [facility] [address] [place] [address] Patient Name: STEPHANIE CAMERON MR #: [id number] : 1960 Age/Sex: 57/F Req #: [id number] Adm Physician: Ordered by: SIOBHAN PORTER MD Report #: [id number] Location: ER Room/Bed: Procedure: [id number] DX/CHEST SINGLE (PORTABLE) Exam Date: 07/15/17 Exam [...] by: Rick Mohan M.D. on 07/15/2017 at 17: 11 Dictated By: RICK MOHAN MD 10 Transcribed By: OSCAR on 07/15/171710 COPY TO: SIOBHAN PORTER MD
--- NOTE | 2020-02-27 23:36 | Diagnostic Imaging Report ---
HAND 3+ VIEWS LEFT - 3 views HISTORY: Pain COMPARISON: None available. FINDINGS: Bones: No acute displaced fracture. Osseous alignment is within normal limits. 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 Soft tissues: The soft tissues appear unremarkable. IMPRESSION: No acute radiographic abnormality. Signed by: Isiah Silva MD on 02/27/2020 11:32 PM
[2020-02-28] MEDS ORDERED: NALOXONE HCL 2MG/2 ML SYRINGE IV ONE (00:45)
[2020-02-28] MEDS ORDERED: SODIUM CHLORIDE 0.9% 1000ML 1,000 ML IV STA (00:45)
--- NOTE | 2020-02-28 00:48 | NUR ---
No response from 1 mg of IV NArcan. aware.
--- NOTE | 2020-02-28 00:51 | NUR ---
RT called for ABG
[2020-02-28 00:57] LABS: BASOPHILS # (AUTO) 0.1 (0.0-0.1); BASOPHILS % 0.5 % (0.0-1.0); EOSINOPHILS # (AUTO) 0.2 (0.0-0.4); EOSINOPHILS % 1.4 % (0.0-6.0); HEMATOCRIT 33.9 % (34.2-44.1); HEMOGLOBIN 9.7 g/dL (12.0-16.0); LYMPHOCYTES % 23.2 % (18.0-39.1); MEAN CORPUSCULAR HEMOGLOBIN 21.7 pg (28-32); MEAN CORPUSCULAR HGB CONC 28.6 g/dL (31-35); MEAN CORPUSCULAR VOLUME 75.8 fL (81-99); MONOCYTES # (AUTO) 1.2 (0.2-0.8); MONOCYTES % 6.9 % (4.4-11.3); NEUTROPHILS # (AUTO) 11.5 (2.1-6.9); NEUTROPHILS % 67.1 % (38.7-80.0); PLATELET COUNT 424 x10e3/uL (140-360); RED BLOOD COUNT 4.47 x10e6/uL (3.6-5.1); RED CELL DISTRIBUTION WIDTH 22.3 % (11.7-14.4)
--- NOTE | 2020-02-28 01:11 | NUR ---
Unable to obtain oral or axillary temp. Multiple warm blankets placed on patient. MD aware of core temp.
[2020-02-28 01:17] LABS: ALANINE AMINOTRANSFERASE 9 IU/L (0-55); ALBUMIN 3.5 g/dL (3.5-5.0); ALBUMIN/GLOBULIN RATIO 0.9 (0.8-2.0); ALKALINE PHOSPHATASE 136 IU/L (40-150); ANION GAP 14.9 mmol/L (8-16); BLOOD UREA NITROGEN 18 mg/dL (7-26); BUN/CREATININE RATIO 23 (6-25); CALCIUM 9.7 mg/dL (8.4-10.2); CARBON DIOXIDE 31 mmol/L (22-29); CHLORIDE 100 mmol/L (98-107); CREATINE KINASE 140 IU/L (29-168); CREATININE, SERUM 0.78 mg/dL (0.57-1.11); EST GLOMERULAR FILTRATION RATE > 60 ML/MIN (60-); POTASSIUM 3.9 mmol/L (3.5-5.1); SODIUM 142 mmol/L (136-145)
[2020-02-28 01:20] LABS: GLUCOSE 15 mg/dL (74-118)
[2020-02-28] MEDS ORDERED: DEXTROSE 50% SYRINGE 50 ML IV STA ×3 (01:20→04:28)
[2020-02-28] MEDS ORDERED: DEXTROSE 50% SYRINGE 50 ML IV ONE (01:26)
[2020-02-28] MEDS ORDERED: GLUCAGON FOR INJ 1 MG VIAL IV ONE ×2 (01:30→04:30)
[2020-02-28] MEDS ORDERED: ONDANSETRON HCL INJ 2MG/ML 2ML 2 MG/ML VIAL ONE (01:31)
--- NOTE | 2020-02-28 01:48 | NUR ---
Patient more alert at this time. Glucose 213. aware. RT called for BiPAP
[2020-02-28] MEDS ORDERED: ONDANSETRON HCL INJ 2MG/ML 2ML 2 MG/ML VIAL IV STA (01:59)
--- NOTE | 2020-02-28 02:13 | NUR ---
Patient to be placed on BARE HUGGER
--- NOTE | 2020-02-28 02:21 | NUR ---
BIPAP PLACED ON PT AT THIS TIME. PT TOLERATING WELL.
[2020-02-28 02:35] LABS: BILIRUBIN,URINE NEGATIVE (NEGATIVE); CLARITY,URINE CLEAR (CLEAR); COLOR,URINE YELLOW (YELLOW); KETONES,URINE NEGATIVE (NEGATIVE); LEUKOCYTE ESTERASE ,URINE NEGATIVE (NEGATIVE); NITRITE,URINE NEGATIVE (NEGATIVE); PROTEIN,URINE DIPSTICK 1+ (NEGATIVE); URINE UROBILINOGEN 0.2 mg/dL (0.2 - 1)
[2020-02-28 02:36] LABS: AMPHETAMINES SCREEN,URINE NEGATIVE (NEGATIVE); BENZODIAZEPINES SCREEN,URINE NEGATIVE (NEGATIVE); PHENCYCLIDINE SCREEN,URINE NEGATIVE (NEGATIVE)
--- NOTE | 2020-02-28 02:37 | Diagnostic Imaging Report ---
EXAMINATION: CHEST SINGLE (PORTABLE) INDICATION: ^altered mental status ^[id number] ^0200 COMPARISON: 12/23/2019 FINDINGS: AP view TUBES and LINES: None. LUNGS: Ill-defined bilateral lower lobe airspace opacities. No pulmonary edema. PLEURA: No pleural effusion or pneumothorax. HEART AND MEDIASTINUM: The cardiomediastinal silhouette is unremarkable. Fullness of the pulmonary vasculature. BONES AND SOFT TISSUES: No acute osseous lesion. Soft tissues are unremarkable. UPPER ABDOMEN: No free air under the diaphragm. IMPRESSION: Bilateral lower lobe airspace disease which may reflect a combination of atelectasis, aspiration, pneumonia. Signed by: Isiah Silva MD on 02/28/2020 2:33 AM
[2020-02-28] MEDS ORDERED: PIPER-TAZ 3.375 GM 50 ML IV STA (02:39)
[2020-02-28] MEDS ORDERED: DEXTROSE 5%/0.45% SOD CHL 1,000 ML IV STA (02:41)
[2020-02-28 02:54] LABS: BACTERIA,URINE FEW /HPF; EPITHELIAL CELLS,URINE FEW /LPF; MUCUS,URINE FEW (RARE); RBC,URINE 0-5 /HPF (0-5); WBC,URINE (MAN) 0-5 /HPF (0-5)
[2020-02-28] MEDS ORDERED: SUCCINYLCHOLINE 200 MG/10 ML SYR IV STA ×2 (03:06→04:52)
[2020-02-28] MEDS ORDERED: ETOMIDATE 2 MG/ML 10 ML INJ IV STA ×3 (03:06→05:56)
[2020-02-28] MEDS ORDERED: MIDAZOLAM HCL 50 MG in SODIUM CHLORIDE 0.9% 100 ML 90 ML IV PRN (03:15)
[2020-02-28] MEDS ORDERED: DEXMEDETOMIDINE HCL 200 MCG in SODIUM CHLORIDE 0.9% 50ML 48 ML IV PRN (03:30)
--- NOTE | 2020-02-28 03:30 | NUR ---
Patient swabbed for COVID-19 at this time
[2020-02-28] MEDS ORDERED: LEVOFLOXACIN 750MG/D5W 150ML 150 ML IV SCH (04:00)
--- NOTE | 2020-02-28 04:45 | Diagnostic Imaging Report ---
History: AMS Comparison studies: None Technique: Axial images were obtained from the skull base to the vertex. Coronal and sagittal reconstructions obtained from the axial data. Dose modulation, iterative reconstruction, and/or weight based adjustment of the mA/kV was utilized to reduce the radiation dose to as low as reasonably achievable. Findings: The study is limited by motion artifact. Scalp/skull: No abnormalities. No fractures, blastic or lytic lesions. Extra-axial spaces: No masses. No fluid collections. Brain sulci: Appropriate for age. Ventricles: Normal in size and configuration. No hydrocephalus. Parenchyma: No abnormal densities. No masses, hemorrhage, acute or chronic cortical vascular insults. Sellar/suprasellar region: No abnormalities Craniocervical junction: Patent foramen magnum. No Chiari one malformation. Atherosclerotic calcifications of the carotid siphons IMPRESSION: Limited study by motion artifact. No significant acute abnormalities . Signed by: DR Anmol Clinton M.D. on 02/28/2020 4:42 AM
--- NOTE | 2020-02-28 04:47 | NUR ---
Patient maintaining oxygen saturation at this time and is alert and oriented times 3.
[2020-02-28 04:48] LABS: ABG HCO3 34 mmol/L (22-26); ABG PCO2 75 mmHg (35-45); ABG PH 7.27 (7.35-7.45)
[2020-02-28 04:53] LABS: ABG HCO3 33 mmol/L (22-26); ABG PCO2 76 mmHg (35-45); ABG PH 7.25 (7.35-7.45)
--- NOTE | 2020-02-28 04:53 | NUR ---
[facility] states patient cannot be transferred on BIPAP due to COVID precautions.
[2020-02-28] MEDS ORDERED: PROPOFOL IV EMULSION 10MG/ML 100 ML IV SCH (05:00)
--- NOTE | 2020-02-28 05:00 | Diagnostic Imaging Report ---
EXAM: CT Chest WITHOUT contrast INDICATION: Shortness of breath COMPARISON: None TECHNIQUE: Chest was scanned utilizing a multidetector helical scanner from the lung apex through the level of the adrenal glands without administration of IV contrast. Absence of intravenous contrast decreases sensitivity for detection of lymphadenopathy and vascular pathology. Coronal and sagittal reformations were obtained. Routine protocol was performed. IV CONTRAST: None COMPLICATIONS: None RADIATION DOSE: Total DLP: 466 mGy*cm Estimated effective dose: (DLP x 0.014 x size factor) mSv CTDIvol has been reviewed. It is below the limits set by the Radiation Protocol Committee (RPC). Dose modulation, iterative reconstruction, and/or weight based adjustment of the mA/kV was utilized to reduce the radiation dose to as low as reasonably achievable. FINDINGS: LINES/ TUBES: None. LUNGS AND AIRWAYS: Patchy mixed solid and groundglass airspace opacities throughout both lungs, most prominent in the lung bases. No pulmonary mass. PLEURA: Tiny bilateral pleural effusions. HEART AND MEDIASTINUM: Normal heart size. No pericardial effusion. Prominent mediastinal subcentimeter lymph nodes, likely reactive. Coronary artery calcifications with coronary artery stent. UPPER ABDOMEN: Unremarkable. BONES: The visualized bony thorax is within normal limits. SOFT TISSUES: Unremarkable. IMPRESSION: Patchy airspace disease throughout both lungs most suggestive of an infectious process. Superimposed atelectasis or aspiration in the lung bases is possible. Signed by: Isiah Silva MD on 02/28/2020 4:57 AM
[2020-02-28] MEDS ORDERED: PROPOFOL IV EMULSION 10 MG/ML 50 ML VIAL ONE (05:08)
--- NOTE | 2020-02-28 05:15 | NUR ---
Patient remains alert and oriented. Patient refused intubation at this time when explained what is going on. Patient not in respiratory distress. MD aware. New orders to place patient on nasal cannula at this time and repeat ABG at 0540.
--- NOTE | 2020-02-28 05:24 | NUR ---
Dr. Hope states not to repeat lactic acid level at this time.
--- NOTE | 2020-02-28 05:40 | NUR ---
VBG sent at this time
[2020-02-28] MEDS ORDERED: SUCCINYLCHOLINE CHLORIDE 20 MG/ML 10ML VIAL IV STA (05:56)
--- NOTE | 2020-02-28 06:00 | NUR ---
Dr. Hope states patient is not to be intubated at this time. Patient alert and oriented and had a full conversation with her sister regarding what was going on.
[2020-02-28] MEDS ORDERED: ETOMIDATE 40 MG/ 20ML VIAL IV ONE (06:06)
--- NOTE | 2020-02-28 06:16 | NUR ---
PARISH Mcgee from [facility] and called with update. Dr. Hope spoke to the attending physician regarding status of patient.
--- NOTE | 2020-02-28 06:19 | NUR ---
[facility] states 30-45 ETA to transport patient.
[2020-02-28 07:32] VITALS: BP 102/65
== END 2020-02-28 07:10 | disposition short-term general hospital (02) ==
LOC: ER 22:51
DX: R65.20 Severe sepsis without septic shock (principal); J96.00 Acute respiratory failure, unspecified whether with hypoxia or hypercapnia; E11.641 Type 2 diabetes mellitus with hypoglycemia with coma; J15.9 Unspecified bacterial pneumonia; G96.9 Disorder of central nervous system, unspecified; T68.XXXA Hypothermia, initial encounter
CPT/HCPCS: 36415; 36555; 36600; 70450; 71045; 71250; 73130; 80053; 80307; 80320; 81001; 82550; 82553; 82805; 82948; 83605; 84484; 85025; 87040; 87635; 93005; 94660 ×2; 99285; J0330; J1610; J2250; J2310; J2405; J2704 ×2; J7030; J7799

== ENCOUNTER 2020-05-24 22:29 | Emergency (ER) | payer MEDICARE, OTHER ==
[~2020-05-24] VITALS: Ht 162.6 cm; Wt 108.4 kg
--- NOTE | 2020-05-24 22:40 | Emergency Department Note ---
History of Present Illnes History of Present Illness Chief Complaint: General Medicine Complaints History of Present Illness This is a 60 year old female arrived to the ED with complaints of right wrist pain after trying to brace her fall by extending her right wrist. . Arrival Mode: [place] Onset (how long ago): hour(s) Severity: mild Onset quality: sudden Duration (how long): hour(s) Timing of current episode: constant Progression: waxing and waning Chronicity: new Context: Reports trauma/injury Past Medical/Family History Physician Review I have reviewed the patient's past medical and family history. Any updates have been documented here. Past Medical History Past Medical History: Hypertension, Diabetes, COPD, CHF, Asthma, Anxiety, Depression, Other Mental Illness, GERD, Hyperlipedemia, Chronic Back Pain Other Medical History: PTSD PANIC ATTACKS OSTEOMYELITIS CELLULITIS Past Surgical History: Hysterectomy, PCI Other Surgery: HYSTERECTOMY IN 2002 RIGHT FOOT DEBRIDEMENT EYE SX HEART STENT FEBRUARY 05 Social History Smoking Cessation: Current every day smoker Counseling Performed: Yes Alcohol Use: Occasional Other Last Tetanus: UTD Review of Systems Review of Systems Constitutional: Reports no symptoms EENTM: Reports no symptoms Cardiovascular: Reports no symptoms Respiratory: Reports no symptoms Gastrointestinal: Reports no symptoms Genitourinary: Reports no symptoms Musculoskeletal: Reports as per HPI, Reports joint pain Integumentary: Reports no symptoms Neurological: Reports no symptoms Psychological: Reports no symptoms Endocrine: Reports no symptoms Hematological/Lymphatic: Reports no symptoms Physical Exam Related Data Allergies: Coded Allergies: Iodinated Contrast Media (Verified Allergy, Severe, anaphylactic shock, 10/05/18) iodine (Verified Allergy, Severe, anaphylactic shock, 06/05/18) NSAIDS (Non-Steroidal Anti-Inflamma (Verified Allergy, Unknown, 06/05/18) Penicillins (Verified Allergy, Unknown, 02/28/20) Sulfa (Sulfonamide Antibiotics) (Verified Allergy, Unknown, 06/05/18) aspirin (Verified Allergy, Unknown, 06/05/18) ibuprofen (Verified Allergy, Unknown, 10/06/18) Uncoded Allergies: TOPICAL , IV IODINE (Allergy, Severe, ANAPHALACTIC SHOCK, 09/08/15) STEROIDS (Adverse Reaction, Unknown, 10/10/19) PT STATES IT ELEVATED BG AND REFUSES ANY STEROIDS. Vital signs reviewed: Yes Physical Exam CONSTITUTIONAL Constitutional: Present well-developed, Present well-nourished HENT HENT: Present normocephalic, Present atraumatic, Present oropharynx clear/moist, Present nose normal HENT L/R: Present left ext ear normal, Present right ext ear normal EYES Eyes: Reports PERRL, Reports conjunctivae normal NECK Neck: Present ROM normal PULMONARY Pulmonary: Present effort normal, Present breath sounds normal CARDIOVASCULAR Cardiovascular: Present regular rhythm, Present heart sounds normal, Present capillary refill normal, Present normal rate GASTROINTESTINAL Abdominal: Present soft, Present nontender, Present bowel sounds normal GENITOURINARY Genitourinary: Present exam deferred SKIN Skin: Present warm, Present dry MUSCULOSKELETAL Musculoskeletal: Present tenderness; Absent edema, Absent deformity NEUROLOGICAL Neurological: Present alert, Present oriented x 3, Present no gross motor or sensory deficits PSYCHOLOGICAL Psychological: Present mood/affect normal, Present judgement normal Results Imaging Imaging results reviewed: Yes Impressions IMPRESSION: No acute osseous abnormality. Assessment & Plan Medical Decision Making MDM 60 yo F arrived to the ED with complaints of right wrist pain, no obvious deformity- x-rays normal. Pt placed in splint and discharged home. Assessment & Plan Final Impression: (1) Wrist sprain Depart Disposition: HOME, SELF-alf Meds Active Scripts Famotidine (PEPCID) 20 Mg Tablet, 20 MG PO BID for 5 Days, #10 TAB Prov:TED FELIPE [employer]QUIPMENT MECH[employer]IC 06/19/19 Hydroxyzine Hcl (HYDROXYZINE HCL) 25 Mg Tablet, 25 MG PO TID PRN for ITCHING, #30 TAB Prov:TED FELIPE [employer]IPMENT MECH[employer]IC 06/19/19 Reported Medications Insulin Lispro (HUMALOG) 100 Unit/1 Ml Insuln.pen, UNITS SQ TIDWM bs 161-190 =1 unit bs 191-220 =2 units bs 221-250 =3 units bs 251-280 =4 units bs > or = to 281 =5 units 02/21/19 Fluticasone/Salmeterol (ADVAIR 100-50 DISKUS) 1 Each Disk.w.dev, 1 INH INH BID 02/21/19 Ammonium Lactate (AMMONIUM LACTATE) 1 Ml Solution, 1 APPFUL TOP BID apply to feet 02/21/19 Buspirone Hcl (BUSPIRONE HCL) 5 Mg Tablet, 7.5 MG PO BID, #60 TAB 02/21/19 Gabapentin (GABAPENTIN) 400 Mg Capsule, 400 MG PO TID, #30 CAP 02/21/19 Lisinopril (LISINOPRIL) 2.5 Mg Tablet, 2.5 MG PO DAILY, #30 TAB 02/21/19 Metformin Hcl (METFORMIN HCL) 500 Mg Tablet, 750 MG PO BID, #60 TAB 02/21/19 Nicotine (NICOTINE PATCH) 1 Each Patch.td24, 21 MG TOP DAILY 02/21/19 Bupropion Hcl (WELLBUTRIN SR) 150 Mg Tablet.er, 300 MG PO HS 02/21/19 Atorvastatin Calcium (ATORVASTATIN CALCIUM) 20 Mg Tablet, 40 MG PO HS, #30 TAB 02/21/19 Mirtazapine (REMERON) 15 Mg Tablet, 15 MG PO HS 02/21/19 Montelukast Sodium (SINGULAIR) 10 Mg Tablet, 10 MG PO DAILY 02/21/19 Trazodone Hcl (TRAZODONE HCL) 50 Mg Tablet, 100 MG PO HS, #30 TAB 02/21/19 Acetaminophen (ACETAMINOPHEN) 325 Mg Tablet, 650 MG PO Q4H PRN for Mild Pain (1- 3) or Fever>100.8 for 5 Days, TAB 02/21/19 Clonazepam (CLONAZEPAM) 1 Mg Tablet, 1 MG PO BID PRN for ANXIETY, TAB 02/21/19 Hydroxyzine Hcl (HYDROXYZINE HCL) 25 Mg Tablet, 50 MG PO HS PRN for ANXIETY, #30 TAB 02/21/19 Hydroxyzine Hcl (HYDROXYZINE HCL) 25 Mg Tablet, 25 MG PO HS PRN for ANXIETY, #30 TAB 02/21/19 Loperamide Hcl (LOPERAMIDE) 2 Mg Tablet, 2 MG PO TID PRN for DIARRHEA, CAP 02/21/19 Hydrocodone Bit/Acetaminophen (NORCO 5-325 TABLET) 1 Each Tablet, 1 EACH PO DAILY PRN for P, TAB 02/21/19 [True Plus Gel] No Conflict Check, 1 TAB PO PRN 02/21/19 [Tylenol Pm] No Conflict Check, 2 CAP PO HS PRN for SLEEP 02/21/19 Ondansetron Hcl* (ZOFRAN*) 4 Mg Tablet, 4 MG SL DAILY PRN for NAUSEA 02/21/19 Metoprolol Succinate (METOPROLOL SUCCINATE) 25 Mg Tab.er.24h, 50 MG PO DAILY 08/17/17 Omeprazole (OMEPRAZOLE) 40 Mg Capsule.dr, 40 MG PO DAILY 09/12/15 Quetiapine Fumarate (SEROQUEL) 100 Mg Tablet, 150 MG PO HS 09/12/15 Clopidogrel Bisulfate* (PLAVIX) 75 Mg Tablet, 75 MG PO DAILY, #30 TAB 09/12/15 Insulin Detemir (LEVEMIR) 100 Unit/1 Ml Vial, 32 UNITS SQ BID 06/26/14 JUAN CARLOS ALBERT, May 24, 2020 22:40
[2020-05-24] MEDS ORDERED: ACETAMINOPHEN 325 MG TAB PO ONE (22:45)
--- NOTE | 2020-05-24 23:38 | Diagnostic Imaging Report ---
WRIST COMPLETE RIGHT - 3 views HISTORY: Pain status post fall. COMPARISON: None available. FINDINGS: Bones: No acute displaced fracture. Osseous alignment is within normal limits. Joints: The joint spaces are well-maintained. Soft tissues: Radial artery calcification. IMPRESSION: No acute osseous abnormality. Signed by: Dr. Dennise Loredo M.D. on 05/24/2020 11:35 PM
--- NOTE | 2020-05-24 23:48 | NUR ---
VELCRO WRIST SPLINT APPLIED TO R WRIST PER ORDERS. PT GIVEN DISCHARGE PAPERWORK AND INSTRUCTED ON FOLLOW-UP AND TO TAKE TYLENOL DIRECTED FOR PAIN. PT ARRIVED BY EMS, REQUESTING CAB VOUCHER TO RETURN TO ASSISTED LIVING FACILITY. EMT I/99 CALLED. PT REQUESTING TO GO OUTSIDE AND SMOKE. PT INFORMED OF NO SMOKING POLICY AND THAT SHOULD REMAIN IN LOBBY UNTIL CAB ARRIVES DUE TO BEING HIGH FALL RISK. PT INSIST ON GOING OUTSIDE. CHARGE NURSE INFORMED. PT NOTED WALKING OUTSIDE AND SMOKING IN PARKING LOT AT THIS TIME.
== END 2020-05-24 23:55 | disposition home or self-care (01) ==
LOC: ER 22:34
DX: S63.501A Unspecified sprain of right wrist, initial encounter (principal); W19.XXXA Unspecified fall, initial encounter
CPT/HCPCS: 99283

== ENCOUNTER 2020-06-13 15:27 | Observation (INO) | payer MEDICARE, OTHER ==
[~2020-06-13] VITALS: Ht 162.6 cm; Wt 108.4 kg
[2020-06-13] MEDS ORDERED: DEXTROSE 50% SYRINGE 50 ML IV ONE (15:58)
[2020-06-13 16:13] LABS: BASOPHILS # (AUTO) 0.1 (0.0-0.1); BASOPHILS % 0.5 % (0.0-1.0); EOSINOPHILS # (AUTO) 0.1 (0.0-0.4); EOSINOPHILS % 0.5 % (0.0-6.0); HEMATOCRIT 40.8 % (34.2-44.1); HEMOGLOBIN 11.5 g/dL (12.0-16.0); LYMPHOCYTES # (AUTO) 4.1 (1.0-3.2); LYMPHOCYTES % 31.7 % (18.0-39.1); MEAN CORPUSCULAR HEMOGLOBIN 20.9 pg (28-32); MEAN CORPUSCULAR HGB CONC 28.2 g/dL (31-35); MEAN CORPUSCULAR VOLUME 74.2 fL (81-99); MONOCYTES # (AUTO) 0.8 (0.2-0.8); NEUTROPHILS # (AUTO) 7.9 (2.1-6.9); NEUTROPHILS % 60.5 % (38.7-80.0); PLATELET COUNT 421 x10e3/uL (140-360); RED CELL DISTRIBUTION WIDTH 23.3 % (11.7-14.4)
--- NOTE | 2020-06-13 16:15 | Emergency Department Note ---
History of Present Illnes History of Present Illness Chief Complaint: Diabetic Crisis History of Present Illness This is a 60 year old female arrives to the ED after a fall with head trauma- marked hypoglycemia noted. Chief Complaint Comment Patient in from home via EMS with reports of a hypoglycemic episode that resulted in LOC and fall backwards. Patient reports that she was told that she hit her head when she fell. Blood sugar on ambulance was 34. Oral glucose was given. Patient is alert and oriented in triage with stable vital signs but does complain of pain 9/10 to her head and coccyx area. Historian: Patient Arrival Mode: Car Onset quality: sudden Timing of current episode: constant Progression: unchanged Chronicity: new Context: Reports trauma/injury Relieving factors: none Exacerbating factors: none Associated symptoms: Reports confusion Past Medical/Family History Physician Review I have reviewed the patient's past medical and family history. Any updates have been documented here. Past Medical History Recent Fever: No Clinical Suspicion of Infectio: No New/Unexplained Change in Ment: No Past Medical History: Hypertension, Diabetes, COPD, CHF, Asthma, Anxiety, Depression, Other Mental Illness, GERD, Hyperlipedemia, Chronic Back Pain Other Medical History: PTSD PANIC ATTACKS OSTEOMYELITIS CELLULITIS Past Surgical History: Hysterectomy, PCI Other Surgery: HYSTERECTOMY IN 2002 RIGHT FOOT DEBRIDEMENT EYE SX CARDIAC STENT FEBRUARY 05 Social History Physically hurt or threatened: No Other Last Tetanus: UTD Review of Systems Review of Systems Constitutional: Reports as per HPI EENTM: Reports no symptoms Cardiovascular: Reports no symptoms Respiratory: Reports no symptoms Gastrointestinal: Reports no symptoms Genitourinary: Reports no symptoms Musculoskeletal: Reports no symptoms Integumentary: Reports no symptoms Neurological: Reports as per HPI Psychological: Reports no symptoms Endocrine: Reports no symptoms Hematological/Lymphatic: Reports no symptoms Physical Exam Related Data Allergies: Coded Allergies: Iodinated Contrast Media (Verified Allergy, Severe, anaphylactic shock, 10/05/18) iodine (Verified Allergy, Severe, anaphylactic shock, 06/05/18) NSAIDS (Non-Steroidal Anti-Inflamma (Verified Allergy, Unknown, 06/05/18) Penicillins (Verified Allergy, Unknown, 02/28/20) Sulfa (Sulfonamide Antibiotics) (Verified Allergy, Unknown, 06/05/18) aspirin (Verified Allergy, Unknown, 06/05/18) ibuprofen (Verified Allergy, Unknown, 10/06/18) Uncoded Allergies: TOPICAL , IV IODINE (Allergy, Severe, ANAPHALACTIC SHOCK, 09/08/15) STEROIDS (Adverse Reaction, Unknown, 10/10/19) PT STATES IT ELEVATED BG AND REFUSES ANY STEROIDS. Triage Vital Signs Vital Signs Date Time Temp Pulse Resp B/P (MAP) Pulse Ox O2 Delivery O2 Flow Rate FiO2 06/13/20 15:32 97.7 91 17 144/65 100 Room Air Vital signs reviewed: Yes Physical Exam CONSTITUTIONAL Constitutional: Present well-developed, Present well-nourished HENT HENT: Present normocephalic, Present oropharynx clear/moist, Present nose normal; Absent atraumatic HENT L/R: Present left ext ear normal, Present right ext ear normal EYES Eyes: Reports PERRL, Reports conjunctivae normal NECK Neck: Present ROM normal PULMONARY Pulmonary: Present effort normal, Present breath sounds normal CARDIOVASCULAR Cardiovascular: Present regular rhythm, Present heart sounds normal, Present capillary refill normal, Present normal rate GASTROINTESTINAL Abdominal: Present soft, Present nontender, Present bowel sounds normal GENITOURINARY Genitourinary: Present exam deferred SKIN Skin: Present warm, Present dry MUSCULOSKELETAL Musculoskeletal: Present ROM normal NEUROLOGICAL Neurological: Present alert, Present oriented x 3, Present no gross motor or sensory deficits PSYCHOLOGICAL Psychological: Present mood/affect normal, Present judgement normal Results Laboratory Lab results reviewed: Yes Laboratory comments Laboratory Tests Test 06/13/20 16:37 06/13/20 16:30 06/13/20 15:38 Bedside Glucose 177 mg/dL (70-120) Urine Color Yellow (YELLOW) Urine Clarity Clear (CLEAR) Urine pH 7 (5 - 7) Urine Specific [place] 1.015 (1.010-1.025) Urine Protein Negative (NEGATIVE) Urine Glucose (UA) Negative (NEGATIVE) Urine Ketones Negative (NEGATIVE) Urine Blood Negative (NEGATIVE) Urine Nitrite Negative (NEGATIVE) Urine Bilirubin Negative (NEGATIVE) Urine Urobilinogen 0.2 mg/dL (0.2 - 1) Urine Leukocyte Esterase Negative (NEGATIVE) Urine RBC 0-5 /HPF (0-5) Urine WBC 11-20 /HPF (0-5) Urine Epithelial Cells Few /LPF (NONE) Urine Transitional Epithelial Cells Few (NONE) Urine Bacteria Rare /HPF (NONE) White Blood Count 12.98 x10e3/uL (4.8-10.8) Red Blood Count 5.50 x10e6/uL (3.6-5.1) Hemoglobin 11.5 g/dL (12.0-16.0) Hematocrit 40.8 % (34.2-44.1) Mean Corpuscular Volume 74.2 fL (81-99) Mean Corpuscular Hemoglobin 20.9 pg (28-32) Mean Corpuscular Hemoglobin Concent 28.2 g/dL (31-35) Red Cell Distribution Width 23.3 % (11.7-14.4) Platelet Count 421 x10e3/uL (140-360) Neutrophils (%) (Auto) 60.5 % (38.7-80.0) Lymphocytes (%) (Auto) 31.7 % (18.0-39.1) Monocytes (%) (Auto) 6.0 % (4.4-11.3) Eosinophils (%) (Auto) 0.5 % (0.0-6.0) Basophils (%) (Auto) 0.5 % (0.0-1.0) Neutrophils # (Auto) 7.9 (2.1-6.9) Lymphocytes # (Auto) 4.1 (1.0-3.2) Monocytes # (Auto) 0.8 (0.2-0.8) Eosinophils # (Auto) 0.1 (0.0-0.4) Basophils # (Auto) 0.1 (0.0-0.1) Absolute Immature Granulocyte (auto 0.10 x10e3/uL (0-0.1) Sodium Level 138 mmol/L (136-145) Potassium Level 4.2 mmol/L (3.5-5.1) Chloride Level 97 mmol/L (98-107) Carbon Dioxide Level 27 mmol/L (22-29) Anion Gap 18.2 mmol/L (8-16) Blood Urea Nitrogen 10 mg/dL (7-26) Creatinine 0.82 mg/dL (0.57-1.11) Estimat Glomerular Filtration Rate > 60 ML/MIN (60-) BUN/Creatinine Ratio 12 (6-25) Glucose Level 44 mg/dL (74-118) Calcium Level 10.1 mg/dL (8.4-10.2) Total Bilirubin 0.3 mg/dL (0.2-1.2) Aspartate Amino Transf (AST/SGOT) 13 IU/L (5-34) Alanine Aminotransferase (ALT/SGPT) 8 IU/L (0-55) Alkaline Phosphatase 162 IU/L (40-150) Creatine Kinase 104 IU/L (29-168) Creatine Kinase MB 1.40 ng/mL (0-5.0) Troponin I 0.001 ng/mL (0-0.300) Total Protein 8.3 g/dL (6.5-8.1) Albumin 3.8 g/dL (3.5-5.0) Globulin 4.5 g/dL (2.3-3.5) Albumin/Globulin Ratio 0.8 (0.8-2.0) Imaging Imaging results reviewed: Yes Impressions Impression: 1. Acute left parietal scalp hematoma. No fracture. 2. No intracranial abnormalities. 3. No intracranial changes when compared to 02/28/2020. 4. Persistent hyperdense collection along the posterior aspect of the left lobe (retinal detachment?) Chronic findings: 1. Mild generalized volume loss. 2. Mild supratentorial white matter small vessel ischemic changes. IMPRESSION: No evidence for acute traumatic injury within the chest. IMPRESSION: No evidence for acute traumatic injury within the pelvis. Marked distention of the urinary bladder. Recommend correlation for urinary retention. Assessment & Plan Medical Decision Making MDM 60-year-old female arrived to the ED after having syncopal episode, noted to be markedly hypoglycemic. Patient require hospital admission for observation and telemetry monitoring. Assessment & Plan Final Impression: (1) Syncope (2) Hypoglycemia Depart Disposition: ADMITTED Last Vital Signs Date Time Temp Pulse Resp B/P (MAP) Pulse Ox O2 Delivery O2 Flow Rate FiO2 06/13/20 15:32 97.7 91 17 144/65 100 Room Air Home Meds Active Scripts Famotidine (PEPCID) 20 Mg Tablet, 20 MG PO BID for 5 Days, #10 TAB Prov:SHELLI FELIPEDRO L RN ADVANCED 06/19/19 Hydroxyzine Hcl (HYDROXYZINE HCL) 25 Mg Tablet, 25 MG PO TID PRN for ITCHING, #30 TAB Prov:FELIPESHELLI MONDRO L RN ADVANCED 06/19/19 Reported Medications Insulin Lispro (HUMALOG) 100 Unit/1 Ml Insuln.pen, UNITS SQ TIDWM bs 161-190 =1 unit bs 191-220 =2 units bs 221-250 =3 units bs 251-280 =4 units bs > or = to 281 =5 units 02/21/19 Fluticasone/Salmeterol (ADVAIR 100-50 DISKUS) 1 Each Disk.w.dev, 1 INH INH BID 02/21/19 Ammonium Lactate (AMMONIUM LACTATE) 1 Ml Solution, 1 APPFUL TOP BID apply to feet 02/21/19 Buspirone Hcl (BUSPIRONE HCL) 5 Mg Tablet, 7.5 MG PO BID, #60 TAB 02/21/19 Gabapentin (GABAPENTIN) 400 Mg Capsule, 400 MG PO TID, #30 CAP 02/21/19 Lisinopril (LISINOPRIL) 2.5 Mg Tablet, 2.5 MG PO DAILY, #30 TAB 02/21/19 Metformin Hcl (METFORMIN HCL) 500 Mg Tablet, 750 MG PO BID, #60 TAB 02/21/19 Nicotine (NICOTINE PATCH) 1 Each Patch.td24, 21 MG TOP DAILY 02/21/19 Bupropion Hcl (WELLBUTRIN SR) 150 Mg Tablet.er, 300 MG PO HS 02/21/19 Atorvastatin Calcium (ATORVASTATIN CALCIUM) 20 Mg Tablet, 40 MG PO HS, #30 TAB 02/21/19 Mirtazapine (REMERON) 15 Mg Tablet, 15 MG PO HS 02/21/19 Montelukast Sodium (SINGULAIR) 10 Mg Tablet, 10 MG PO DAILY 02/21/19 Trazodone Hcl (TRAZODONE HCL) 50 Mg Tablet, 100 MG PO HS, #30 TAB 02/21/19 Acetaminophen (ACETAMINOPHEN) 325 Mg Tablet, 650 MG PO Q4H PRN for Mild Pain (1- 3) or Fever>100.8 for 5 Days, TAB 02/21/19 Clonazepam (CLONAZEPAM) 1 Mg Tablet, 1 MG PO BID PRN for ANXIETY, TAB 02/21/19 Hydroxyzine Hcl (HYDROXYZINE HCL) 25 Mg Tablet, 50 MG PO HS PRN for ANXIETY, #30 TAB 02/21/19 Hydroxyzine Hcl (HYDROXYZINE HCL) 25 Mg Tablet, 25 MG PO HS PRN for ANXIETY, #30 TAB 02/21/19 Loperamide Hcl (LOPERAMIDE) 2 Mg Tablet, 2 MG PO TID PRN for DIARRHEA, CAP 02/21/19 Hydrocodone Bit/Acetaminophen (NORCO 5-325 TABLET) 1 Each Tablet, 1 EACH PO DAILY PRN for P, TAB 02/21/19 [True Plus Gel] No Conflict Check, 1 TAB PO PRN 02/21/19 [Tylenol Pm] No Conflict Check, 2 CAP PO HS PRN for SLEEP 02/21/19 Ondansetron Hcl* (ZOFRAN*) 4 Mg Tablet, 4 MG SL DAILY PRN for NAUSEA 02/21/19 Metoprolol Succinate (METOPROLOL SUCCINATE) 25 Mg Tab.er.24h, 50 MG PO DAILY 08/17/17 Omeprazole (OMEPRAZOLE) 40 Mg Capsule.dr, 40 MG PO DAILY 09/12/15 Quetiapine Fumarate (SEROQUEL) 100 Mg Tablet, 150 MG PO HS 09/12/15 Clopidogrel Bisulfate* (PLAVIX) 75 Mg Tablet, 75 MG PO DAILY, #30 TAB 09/12/15 Insulin Detemir (LEVEMIR) 100 Unit/1 Ml Vial, 32 UNITS SQ BID 06/26/14 Medications in the ED Dextrose 50 ml STK-MED ONCE IV ; Start 06/13/20 at 15:58; Stop 06/13/20 at 15:52; Status DC JUAN CARLOS ALBERT DO Jun 13, 2020 16:16
[2020-06-13 16:27] LABS: ALANINE AMINOTRANSFERASE 8 IU/L (0-55); ALBUMIN 3.8 g/dL (3.5-5.0); ALBUMIN/GLOBULIN RATIO 0.8 (0.8-2.0); ALKALINE PHOSPHATASE 162 IU/L (40-150); ANION GAP 18.2 mmol/L (8-16); BLOOD UREA NITROGEN 10 mg/dL (7-26); BUN/CREATININE RATIO 12 (6-25); CALCIUM 10.1 mg/dL (8.4-10.2); CARBON DIOXIDE 27 mmol/L (22-29); CHLORIDE 97 mmol/L (98-107); CREATINE KINASE 104 IU/L (29-168); CREATININE, SERUM 0.82 mg/dL (0.57-1.11); EST GLOMERULAR FILTRATION RATE > 60 ML/MIN (60-); POTASSIUM 4.2 mmol/L (3.5-5.1); SODIUM 138 mmol/L (136-145)
[2020-06-13 16:30] LABS: GLUCOSE 44 mg/dL (74-118)
--- NOTE | 2020-06-13 16:58 | Diagnostic Imaging Report ---
History: fall loc Comparison studies: None Technique: Axial images were obtained from the skull base to the vertex. Coronal and sagittal images reconstructed from the axial data. Dose modulation, iterative reconstruction, and/or weight based adjustment of the mA/kV was utilized to reduce the radiation dose to as low as reasonably achievable. Intravenous contrast: None Findings: Scalp/skull: An acute left parietal scalp hematoma is not associated with subcutaneous emphysema or with hyperdense foreign bodies. No underlying fractures. Extra-axial spaces: Incidental 3 cm right parietal sulci. Otherwise, no masses. No additional fluid collections. Brain sulci: Appropriate for age Ventricles: Normal in size and configuration. No hydrocephalus. Parenchyma: Describe hypodensities in the supratentorial white matter are small vessel ischemic changes. No masses, hemorrhage, acute or chronic cortical vascular insults. Sellar/suprasellar region: No abnormalities. Craniocervical junction: Patent foramen magnum. No Chiari one malformation. Incidental findings: Subtle calcifications in the carotid siphons. 5 mm thick hyperdense collection along the posterior aspect of the left globe, unchanged compared to the head CT on 02-28-20. Impression: 1. Acute left parietal scalp hematoma. No fracture. 2. No intracranial abnormalities. 3. No intracranial changes when compared to 02/28/2020. 4. Persistent hyperdense collection along the posterior aspect of the left lobe (retinal detachment?) Chronic findings: 1. Mild generalized volume loss. 2. Mild supratentorial white matter small vessel ischemic changes. Signed by: Dr. Feliberto Andrade M.D. on 06/13/2020 4:55 PM
[2020-06-13 17:00] LABS: CLARITY,URINE CLEAR (CLEAR); COLOR,URINE YELLOW (YELLOW)
--- NOTE | 2020-06-13 17:00 | Diagnostic Imaging Report ---
History: Fall Comparison studies: None Technique: Axial images were obtained through the cervical region.. Coronal and sagittal images reconstructed from the axial data. Dose modulation, iterative reconstruction, and/or weight based adjustment of the mA/kV was utilized to reduce the radiation dose to as low as reasonably achievable. Intravenous contrast: None Findings: Fractures: None. Soft tissues: No gross abnormalities. Atlantoaxial articulation: Intact. Alignment: Normal lordosis. No scoliosis. Cervicomedullary junction: No abnormalities. The foramen magnum is patent. Vertebrae: Bones are mildly demineralized. No infection or neoplasm. Degenerative changes: Mildly degenerated disc at C6-C7. Patent spinal canal and foramina. IMPRESSION: 1. No acute abnormalities. 2. Specifically, no fractures or subluxations. 3. Cannot adequately evaluate for ligament, spinal cord and or vascular abnormalities. 4. Mildly degenerated disc at T6-7. Signed by: Dr. Feliberto Andrade M.D. on 06/13/2020 4:57 PM
[2020-06-13 17:01] LABS: BILIRUBIN,URINE NEGATIVE (NEGATIVE); KETONES,URINE NEGATIVE (NEGATIVE); LEUKOCYTE ESTERASE ,URINE NEGATIVE (NEGATIVE); NITRITE,URINE NEGATIVE (NEGATIVE); PROTEIN,URINE DIPSTICK NEGATIVE (NEGATIVE); URINE UROBILINOGEN 0.2 mg/dL (0.2 - 1)
[2020-06-13 17:10] LABS: BACTERIA,URINE RARE /HPF; EPITHELIAL CELLS,URINE FEW /LPF; RBC,URINE 0-5 /HPF (0-5); TRANSITIONAL EPI CELLS,URINE FEW
--- NOTE | 2020-06-13 17:15 | Diagnostic Imaging Report ---
CT of the chest, without contrast. History: Fall. Comparison: CT chest without contrast from 02/28/2020. Technique: Multidetector CT scanning of the chest was performed from the level of the apices to the upper abdomen without contrast. Coronal and sagittal multiplanar reformations were obtained. RADIATION DOSE: Total DLP: 1500.59 mGy*cm Dose modulation, iterative reconstruction, and/or weight based adjustment of the mA/kV was utilized to reduce the radiation dose to as low as reasonably achievable. Findings: The thyroid and remaining visualized structures within the base of the neck demonstrate no significant abnormalities. The thoracic aorta is normal in course and caliber without evidence for traumatic injury. The main pulmonary artery is normal in caliber. Atherosclerotic calcifications within the coronary arteries. The heart is not enlarged. No abnormal pericardial fluid is present. There is no abnormal axillary, mediastinal, or hilar lymph node enlargement. The trachea and proximal airways are patent. Patchy airspace opacities noted on the prior examination have near completely resolved resolved. Examination of the lungs demonstrate no evidence for consolidation, pneumothorax, mass, suspicious nodule, or pleural effusion. Limited views of the upper abdomen demonstrate no significant abnormalities. The osseous structures demonstrate no evidence for acute fracture or destructive process. The extrathoracic soft tissues are unremarkable. IMPRESSION: No evidence for acute traumatic injury within the chest. Signed by: Dr. Saul Crane MD on 06/13/2020 5:12 PM
--- NOTE | 2020-06-13 17:22 | Diagnostic Imaging Report ---
CT of the pelvis, with contrast. History: Fall. Comparison: CT abdomen/pelvis from 10/05/2018. Technique: Multidetector CT scanning of pelvis was performed without the use of contrast material. Coronal and sagittal multiplanar reformations were obtained. RADIATION DOSE: Total DLP: 1500.59 mGy*cm Dose modulation, iterative reconstruction, and/or weight based adjustment of the mA/kV was utilized to reduce the radiation dose to as low as reasonably achievable. FINDINGS: The osseous structures demonstrate no evidence for acute fracture or dislocation. There are degenerative changes of the lumbosacral spine and bilateral hips. A sclerotic focus is identified in the left acetabulum likely reflecting a bone island. No destructive osseous lesion is identified. The visualized loops of small and large bowel demonstrate no evidence of obstruction or inflammation. There is distention of the urinary bladder measuring up to 17.8 cm. The uterus is surgically absent. No abnormal adnexal masses are identified. Atherosclerotic calcifications noted within the distal abdominal aorta and iliac vessels. Tiny fat-containing umbilical hernia noted. The extraperitoneal soft tissues are unremarkable. IMPRESSION: No evidence for acute traumatic injury within the pelvis. Marked distention of the urinary bladder. Recommend correlation for urinary retention. Signed by: Dr. Saul Crane MD on 06/13/2020 5:19 PM
--- OUTSIDE RECORDS SUMMARY | 2020-06-13 17:28 | XMS REPORT | Clinical Summary ---
Author Author TALIA [facility] Organization [facility] Address Unknown Phone Unavailable Care Team Providers Care Clinical Pharmacy Coordinator Name Role Phone JoonDaren Aren RAYGOZA PCP Allergies Comments Active Allergy Reactions Severity Noted Date Intensifies asthma Aspirin Other (See Comments) Chocolate Flavor 02/28/2020 Egg 02/28/2020 Iodine And Iodide Anaphylaxis High 02/28/2020 Containing Products Kiwi (Actinidia 02/28/2020 Chinensis) Cameron 02/28/2020 Milk Containing Products 02/28/2020 [place] Juice 02/28/2020 Passion Fruit 02/28/2020 Peanut Anaphylaxis High 02/28/2020 Wheat Containing Prod 02/28/2020 Medications End Date Status Medication Sig Dispensed Refills Start Date Active PROAIR HFA 90 Take 1 puff 1 mcg/actuation inhaler by mouth 0 daily. Active amitriptyline (ELAVIL) 25 Take 25-50 mg 0 08/0 MG tablet by mouth 1 nightly. Active atorvastatin (LIPITOR) 40 Take 1 tablet 1 03/0 MG tablet by mouth 0 every evening. Active REXULTI 3 mg Tab tablet Take 3 mg by 0 mouth daily. 0 Active buPROPion (WELLBUTRIN SR) Take 150 mg 0 08/0 150 MG 12 hr tablet by mouth 1 daily. Active busPIRone (BUSPAR) 10 MG Take 2 0 02/21 tablet tablets by 0 mouth 3 (three) times daily. Active butalbital-acetaminophen- Take 1 tablet 0 /2 caffeine (FIORICET, by mouth 0 ESGIC) 50-325-40 mg per every 6 (six) tablet hours as needed for Headaches. Active clonazePAM (KLONOPIN) 1 Take 1 tablet 0 MG tablet by mouth 2 0 (two) times daily as needed. Active clopidogreL (PLAVIX) 75 Take 75 mg by 1 202 mg tablet mouth daily. 0 Active divalproex (DEPAKOTE) 500 Take 1 tablet 0 04/2 0/202 MG 24 hr tablet by mouth 0 daily. Active BYDUREON 2 mg/0.85 mL Inject 2 mg 3 01/17/20 2 AtIn auto-injector subcutaneousl 0 y once a week. Active fLUoxetine (PROZAC) 20 MG Take 20 mg by 0 08/0 capsule mouth daily. 1 Active gabapentin (NEURONTIN) Take 400 mg 0 01/23/ 02 400 MG capsule by mouth 3 0 (three) times daily. Active LANTUS SOLOSTAR U-100 Inject 40 2 02/15/20 2 INSULIN 100 unit/mL (3 Units 0 mL) InPn subcutaneousl y nightly. Active HUMALOG KWIKPEN INSULIN Inject 8 3 100 unit/mL InPn Units 0 subcutaneousl y 3 (three) times daily with meals INJECT 8 UNITS SQ THREE TIMES DAILY BEFORE MEALS + SLIDING SCALE USING 1 UNIT FOR EVERY 30 POINTS ABOVE GLUCOSE 150 MDD 50 UNITS. Active lisinopriL Take 2.5 mg 0 (PRINIVIL,ZESTRIL) 2.5 MG by mouth 0 tablet daily. Active metFORMIN (GLUCOPHAGE-XR) Take 2 2 01/29 750 MG 24 hr tablet tablets by 0 mouth daily with dinner. Active mirtazapine (REMERON) 30 Take 30 mg by 0 02/21202 MG tablet mouth 0 nightly. Active omeprazole (PRILOSEC) 40 Take 1 1 12/31 MG capsule capsule by 0 mouth daily. Active pregabalin (LYRICA) 50 MG Take 1 0 11/01 capsule capsule by 0 mouth every 8 (eight) hours. Active traZODone (DESYREL) 300 Take 1 tablet 0 202 MG tablet by mouth 0 nightly. Active TRINTELLIX 20 mg Tab Take 1 tablet 0 by mouth 0 daily. Active montelukast (SINGULAIR) Take 10 mg by 0 10 mg tablet mouth daily. Active ammonium lactate Apply 0 (LAC-HYDRIN) 12 % lotion topically 2 (two) times daily. 03/01/2021 Active ferrous sulfate 325 (65 Take 1 tablet 60 tablet 0 FE) MG tablet (325 mg 0 total) by mouth 2 (two) times daily. 03/06/2020 AZITHROmycin (ZITHROMAX) Take by mouth 2 tablet 0 250 MG tablet as directed.. 0 03/05/2020 polyethylene glycol Take 17 g by 14 each 0 03/02 (GLYCOLAX) 17 gram packet mouth daily 0 for 3 days. 03/06/2020 amoxicillin-clavulanate Take 1 tablet 15 tablet 0 (AUGMENTIN) 500-125 mg by mouth 3 0 per tablet (three) times daily for 5 days. Active Problems Problem Noted Date Respiratory insufficiency 02/28/2020 Encounters Care Team Description Date Type Specialty Tobias Vang MD Siddique, MD Jaime lEise Shireen, MD Acute hypercapnic respiratory failure (H CC); Aspiration pneumonia of both lower lobes due to gastric secretions (HCC) 02/28/2020 Hospital Cardiology - Encounter 03/01/2020 Tobias Vang MD [id number] Call 02/28/2020 Telephone Critical Care Medic ine Tobias Vang MD [id number]-Flpw Call 02/28/2020 Telephone Critical Care Medic ine after 06/13/2019 Family History Medical History Relation Name Comments Heart disease Father Arthritis Mother Depression Mother Relation Name Status Comments Father Mother Social History Date Tobacco Use Types Packs/Day Years Used Never Assessed Sex Assigned at Date Recorded Not on file Industry Job Start Date Occupation Not on file Not on file Not on file Travel End Travel History Travel Start No recent travel history available. Last Filed Vital Signs Time Taken Vital Sign Reading 03/01/2020 8:00 AM CDT Blood Pressure 136/65 03/01/2020 8:00 AM CDT Pulse 84 03/01/2020 8:00 AM CDT Temperature 36.8 C (98.2 F) 03/01/2020 8:00 AM CDT Respiratory Rate 18 03/01/2020 8:00 AM CDT Oxygen Saturation 99% - Inhaled Oxygen - Concentration 03/01/2020 8:00 AM CDT Weight 107 kg (236 lb) 02/28/2020 9:23 AM CDT Height 162.6 cm (5' 4") 03/01/2020 8:00 AM CDT Body Mass Index 40.51 Plan of Treatment Not on file Procedures Comments Procedure Name Priority Date/Time Associated Diag nosis REPORT OF PROCEDURE - 03/07/2020 ENDOSCOPY SCAN 12:30 PM CDT RHYTHM STRIP - SCAN 03/03/2020 11:11 AM CDT POCT-GLUCOSE METER Routine 03/01/2020 8:10 AM CDT BASIC METABOLIC PANEL (7) Routine 03/01/2020 4:18 AM CDT PHOSPHORUS STAT 03/01/2020 4:18 AM CDT CBC (HEMOGRAM ONLY) Routine 03/01/2020 3:26 AM CDT VANCOMYCIN LEVEL, TROUGH Timed 02/29/2020 10:38 PM CDT POCT-GLUCOSE METER Routine 02/29/2020 9:15 PM CDT POCT-GLUCOSE METER Routine 02/29/2020 6:14 PM CDT POCT-GLUCOSE METER Routine 02/29/2020 1:03 PM CDT POCT-GLUCOSE METER Routine 02/29/2020 8:06 AM CDT BASIC METABOLIC PANEL (7) Routine 02/29/2020 4:16 AM CDT CBC (HEMOGRAM ONLY) Routine 02/29/2020 4:16 AM CDT PHOSPHORUS STAT 02/29/2020 4:16 AM CDT URINALYSIS W/ REFLEX STAT 02/28/2020 URINE CULTURE 6:05 PM CDT LEGIONELLA URINE ANTIGEN Routine 02/28/2020 6:05 PM CDT STREP PNEUMONIAE ANTIGEN Routine 02/28/2020 6:05 PM CDT CREATINE KINASE (CK) Add-On 02/28/2020 4:03 PM CDT BASIC METABOLIC PANEL (7) Routine 02/28/2020 4:03 PM CDT POCT-GLUCOSE METER Routine 02/28/2020 11:29 AM CDT XR CHEST 1 VIEW STAT 02/28/2020 PORTABLE/BEDSIDE 10:20 AM CDT AMMONIA Routine 02/28/2020 9:37 AM CDT BLOOD CULTURE Routine 02/28/2020 9:36 AM CDT RAPID INFLUENZA A&B STAT 02/28/2020 SCREEN 9:18 AM CDT RESPIRATORY PANEL [facility] STAT 02/28/2020 9:18 AM CDT SARS-COV2/RT-PCR ([facility] & STAT 02/28/2020 REF LABS) 9:18 AM CDT BLOOD CULTURE Routine 02/28/2020 9:09 AM CDT CORTISOL STAT 02/28/2020 9:01 AM CDT TSH/FREE T4 IF INDICATED STAT 02/28/2020 9:01 AM CDT TROPONIN I STAT 02/28/2020 9:01 AM CDT CBC W/PLT COUNT & AUTO STAT 02/28/2020 DIFFERENTIAL 8:53 AM CDT HEMOGLOBIN A1C STAT 02/28/2020 8:53 AM CDT BLOOD GAS, VENOUS STAT 02/28/2020 8:53 AM CDT LACTIC ACID, VENOUS STAT 02/28/2020 8:53 AM CDT VITAMIN B12 AND FOLATE Routine 02/28/2020 8:53 AM CDT RETICULOCYTE COUNT Routine 02/28/2020 8:53 AM CDT IRON, TIBC, % SAT. Routine 02/28/2020 (WITHOUT FERRITIN) 8:53 AM CDT FERRITIN Routine 02/28/2020 8:53 AM CDT B-TYPE NATRIURETIC FACTOR STAT 02/28/2020 (BNP) 8:53 AM CDT CBC W/PLT COUNT & AUTO STAT 02/28/2020 DIFFERENTIAL 8:53 AM CDT MRSA SCREEN STAT 02/28/2020 8:53 AM CDT PROCALCITONIN STAT 02/28/2020 8:52 AM CDT FIBRINOGEN STAT 02/28/2020 8:52 AM CDT APTT STAT 02/28/2020 8:52 AM CDT PROTHROMBIN TIME/INR STAT 02/28/2020 8:52 AM CDT MAGNESIUM STAT 02/28/2020 8:52 AM CDT COMPREHENSIVE METABOLIC STAT 02/28/2020 PANEL 8:52 AM CDT after 06/13/2019 Results * EKG-SCANNED (03/07/2020 12:30 PM CDT) Narrative Performed At This result has an attachment that is n ot available. * RHYTHM STRIP - SCAN (03/03/2020 11:11 AM CDT) Narrative Performed At This result has an attachment that is n ot available. * POC-Glucose meter (03/01/2020 8:10 AM CDT) Only the most recent of 6 results within the time period is included. POC-Glucose Meter 166 (H)Comment: : TESTED AT 70 - 110 mg/dL [address] [address]: Sap Architect/Truck Caterer ID = [id number] for RUSLAN CRUZ Specimen Blood Performing Organization Address City/State/Zipcode Ph one Number [address] [facility] * Phosphorus (03/01/2020 4:18 AM CDT) Only the most recent of 2 results within the time period is included. Phosphorus 3.4 2.3 - 4.7 mg/dL [facility] Specimen Blood Narrative Performed At Sap Architect ID - GABINO Main [facility] Performing Organization Address City/[facility] Ph one Aric [address] [facility] * Basic Metabolic Panel (03/01/2020 4:18 AM CDT) Only the most recent of 3 results within the time period is included. Sodium 139 136 - 145 meq/L [facility] Potassium 4.6 3.5 - 5.1 meq/L [facility] Chloride 101 98 - 107 meq/L [facility] CO2 33 (H) 22 - 29 meq/L [facility] BUN 13 7 - 21 mg/dL [facility] Creatinine 0.87 0.57 - 1.25 mg/dL [facility] Glucose 159 (H) 70 - 105 mg/dL [facility] Calcium 8.7 8.4 - 10.2 mg/dL [facility] EGFR 67Comment: ESTIMATED GFR IS mL/min/1.73 sq m [facility] NOT ACCURATE CREATININE [facility] CLEARANCE IN PREDICTING GLOMERULAR FILTRATION RATE. ESTIMATED GFR IS NOT APPLICABLE FOR DIALYSIS PATIENTS. Specimen Blood Narrative Performed At Sap Architect ID - GABINO Main [facility] Performing Organization Address City/[facility] Ph one Aric [facility] [address] [place], [place] [address] [facility] * CBC (Hemogram only) (03/01/2020 3:26 AM CDT) Only the most recent of 2 results within the time period is included. WBC 8.7 3.5 - 10.5 K/L [facility] RBC 3.96 3.93 - 5.22 M/L [facility] Hemoglobin 8.6 (L) 11.2 - 15.7 GM/DL [facility] Hematocrit 30.5 (L) 34.1 - 44.9 % [facility] MCV 77.0 (L) 79.4 - 94.[address] [facility] MCH 21.7 (L) 25.6 - 32.[address] [facility] MCHC 28.2 (L) 32.2 - 35.5 GM/DL [facility] RDW 22.1 (H) 11.7 - 14.4 % [facility] Platelets 341 150 - 450 K/CU MM [facility] MPV 8.6 (L) 9.4 - 12.[address] [facility] nRBC 0 0 - 0 /[address] [facility] Specimen Blood Performing Organization Address City/[facility] Ph one Number [place] [address] [phone] [place] [address] * Vancomycin level, trough (02/29/2020 10:38 PM CDT) Vancomycin Tr 15.7 10.0 - 20.0 ug/mL [facility] Specimen Blood Narrative Performed At Sap Architect ID - DB [facility] Performing Organization Address City/[facility] Ph one Number [place] [address] [facility] * Urinalysis w/Microscopic + Reflex to Culture (02/28/2020 6:05 PM CDT) Color, UA Light Yellow [facility] Clarity, UA Clear [facility] Specific [place], UA 1.007 1.001 - 1.035 [facility] pH, UA 7.5 5.0 - 8.[address] [facility] Protein, UA Negative Negative [facility] Glucose, UA Negative Negative [facility] Ketones, UA Negative Negative [facility] Bilirubin, UA Negative Negative [facility] Blood, UA Negative Negative [facility] Nitrite, UA Negative Negative [facility] Leukocytes, UA Negative Negative [facility] Urobilinogen, UA 0.2 0.2 - 1.0 mg/dL [facility] RBC, UA <1 /HPF [facility] WBC, UA <1 /HPF [facility] Squam Epithel, UA <1 /HPF [facility] Specimen Source [facility] Specimen Urine Narrative Performed At Sap Architect ID - [auto] [facility] Sap Architect ID - tech [facility] Performing Organization Address City/[facility] Ph one Number [place] [phone] [place], [place] [address] [facility] * Strep pneumoniae antigen (02/28/2020 6:05 PM CDT) Strep pneumoniae Antigen Presumptive negative for Presumptive negative for [facility] pneumococcal meningitis - see pneumococcal pneumonia - [facility] comment see comment, Presumptive negative for pneumococcal meningitis - see comment Specimen Urine Narrative Performed At Presumptive negative for pneumococcal m eningitis. Infection due to S. pneumoniae [facility] cannot be ruled out since the antigen present in the sample may be below the [facility] detection limit of the test. Performing Organization Address City/State/[facility] one Number [address] [facility] * Legionella antigen, urine (02/28/2020 6:05 PM CDT) Legionella Urine Antigen Negative - see commentComment: [facility] Negative for L. pneumophila [facility] serogroup 1 antigen, suggesting no recent or current infection with this serogroup. Legionellosis cannot be ruled out since other serogroups and species may cause disease. Specimen Urine Performing Organization Address [facility] one Number [address] [facility] * Creatine Kinase (CK) (02/28/2020 4:03 PM CDT) Total CK 257 (H) 29 - 200 U/L [facility] Specimen Blood Narrative Performed At Sap Architect ID - BS [facility] Performing Organization Address [facility] one Number [address] [facility] * XR chest 1 view portable / bedside (02/28/2020 10:20 AM CDT) Specimen Narrative Performed At FINAL REPORT GE RIS RAD, CHEST, 1 VIEW, NON DEPT INDICATION: SOB COMPARISON: None FINDINGS: Portable frontal view of the chest. IMPRESSION: Limited by exclusion of the left costop hrenic sulcus. Support Lines: None Lungs and pleura: Basilar interstitial disease may reflect subsegmental atelectasis, atypical infe ction or developing edema in the appropriate clinical context. No pn eumothorax. Heart and mediastinum: Unremarkable con tours. Additional findings: None. Signed: JR Caitlin, Oliva TRIANA Report Verified Date/Time: 0 10:38:15 Reading Location: ISIAH Zimmerman [facility] Reading Room Procedure Note Interface, External Ris In - 02/28/2020 10:40 AM CDT FINAL REPORT RAD, CHEST, 1 VIEW, NON DEPT INDICATION: SOB COMPARISON: None FINDINGS: Portable frontal view of the chest. IMPRESSION: Limited by exclusion of the left costophrenic sulcus. Support Lines: None Lungs and pleura: Basilar interstitial disease may reflect subsegmental atelectasis, atypical infection or developing edema in the appropriate clinical context. No pneumothorax. Heart and mediastinum: Unremarkable contours. Additional findings: None. Signed: JR Tucker Robert MD Report Verified Date/Time: 02/28/2020 10:38:15 Reading Location: [facility] Radiology Reading Room Performing Organization Address [facility] Ph one Number GE RIS * Ammonia (02/28/2020 9:37 AM CDT) Ammonia 34Comment: Specimen slightly 18 - 72 mol/L [facility] hemolyzed [facility] Specimen Blood Narrative Performed At Sap Architect ID - AAHAMID [facility] Performing Organization Address City/[facility] Ph one Number [address] [facility] * Blood Culture - Routine (Right Venipuncture) (02/28/2020 9:36 AM CDT) Only the most recent of 2 results within the time period is included. Result No growth in 5 days [facility] Specimen Blood Performing Organization Address [facility] one Number [address] [facility] * SARS-CoV2/RT-PCR ([facility]) (02/28/2020 9:18 AM CDT) SARS-COV2/RT-PCR Not Detected Not Detected, Negative [facility] SARS-COV-2 PERFORMING LAB [facility] Specimen Other Narrative Performed At Negative results do not preclude SARS-C oV-2 infection and should not be used as [facility] the sole basis for patient management decisions. Nega tive results must be [facility] combined with clinical observations, pa tient history, and epidemiological information. A false negative result ma y occur if a specimen is improperly collected, transported or handled. The limit of detection for this assay i s 250 copies/mL. This SARS CoV-2 test is a rapid, real-t ifrah RT-PCR test intended for the qualitative detection of nucleic acid f rom SARS-CoV-2 in a nasopharyngeal swab specimen collected from individuals jakob pected of COVID-19 by their healthcare provider. This test has not been Food and Drug Ad ministration (FDA) cleared or approved and has been authorized by FDA under an Emergency Use Authorization (EUA). This EUA will be effective until the declara tion that circumstances exist justifying the authorization of the emergency use of in vitro diagnostic tests for detection and/or diagnosis of COVID-19 is terminated under Section 564(b)(2) of the Act or the EUA is revoked under Sec tion 564(g) of the Act. Fact Sheet for Healthcare Providers: https://www.[employer]bra[employer]/Documents/Xpert%20Xpress%20SARS%20CoV-2/Fact%20Sheets/30 2-3802%36EAZU-LQM-3%20HEALTHCARE%20PROV IDERS%20FACT%20SHEET.pdf Fact Sheet for Healthcare Patients: https://www.[employer]/Documents/Xpert%20Xpress%20SARS%20CoV-2/Fact%20Sheets/30 2-3801%13KPPJ-OZK-7%20PATIENT%20FACT%20 SHEET.pdf Performing Laboratory: [address] [place] [address] Performing Organization Address City/State/Zipcode Ph one Number [place] [address] [facility] * Respiratory Panel [facility] (02/28/2020 9:18 AM CDT) Human Metapneumovirus Not detected Not detected, Equivocal [facility] Rhinovirus Not detected Not detected, Equivocal [facility] Influenza A Not detected Not detected, Equivocal [facility] INFLUENZA A (NO SUBTYPE) [facility] Influenza A subtype H1 [facility] Influenza A Subtype H3 [facility] Influenza A Subtype [facility] H1-2009 [facility] Influenza B Not detected Not detected, Equivocal [facility] Respiratory Syncytial Not detected Not detected, Equivocal [facility] Virus [facility] Parainfluenza Virus 1 Not detected Not detected, Equivocal [facility] Parainfluenza Virus 2 Not detected Not detected, Equivocal [facility] Parainfluenza virus 3 Not detected Not detected, Equivocal [facility] Parainfluenza Virus 4 Not detected Not detected, Equivocal [facility] Adenovirus Not detected Not detected, Equivocal [facility] Coronavirus 229E Not detected Not detected, Equivocal [facility] Coronavirus HKU1 Not detected Not detected, Equivocal [facility] Coronavirus NL63 Not detected Not detected, Equivocal [facility] Coronavirus OC43 Not detected Not detected, Equivocal [facility] Bordetella Pertussis Not detected Not detected, Equivocal [facility] Chlamydophila Pneumoniae Not detected Not detected, Equivoc al [facility] Mycoplasma Pneumoniae Not detected Not detected, Equivocal [facility] Specimen Nasopharyngeal Narrative Performed At Other viruses and bacteria not targeted by this PCR p allen cannot be excluded; [facility] therefore clinical correlation and follow up of serol ogy, culture results, and [facility] other molecular studies is required. Th e results are not intended to be used as the sole means for clinical diagnosis o r patient management decisions. This sample was tested at the [facility] [employer] [facility] using the BuzzooleArray Respiratory Panel. It is FDA cleared and has been verified and approved by the [facility] tics Laboratory for clinical use on nasopharyngeal swab specimens. The performance of the FilmArray RP has not been established in individuals who received influenza vaccine.Recent a dministration of a nasal influenza vaccine may cause false positive result s for Influenza A and/or Influenza B. Performing Organization Address [facility] Ph one [address] [facility] * Rapid Influenza A&B Screen (02/28/2020 9:18 AM CDT) Rapid Influenza A Antigen Negative Negative, Inconclusi ve [facility] Rapid influenza B Antigen Negative Negative, Inconclusi ve [facility] Specimen Nasal Performing Organization Address [facility] one [address] 0 [phone] [place] [address] * Cortisol (02/28/2020 9:01 AM CDT) Cortisol, Total 6.9 3.7 - 19.4 ug/dL [facility] Specimen Blood Narrative Performed At Sap Architect ID - [email or web address] [facility] Performing Organization Address [facility] one [address] 0 [phone] [place] [address] * TSH/Free T4 If Indicated (02/28/2020 9:01 AM CDT) TSH 0.364 0.350 - 4.940 uIU/mL [facility] Specimen Blood Narrative Performed At Sap Architect ID - LA [facility] Performing Organization Address [facility] one [address] [facility] * Troponin I (02/28/2020 9:01 AM CDT) Troponin I <0.01 0.00 - 0.03 ng/mL [facility] Specimen Blood Narrative Performed At Troponin I (TnI) levels must be interpreted in the co ntext of the presenting [facility] symptoms and the clinical findings. Elevated TnI leve ls indicate myocardial [facility] damage, but are not specific for ischem ic heart disease. Elevated TnI levels are seen in patients with other cardiac con ditions (including myocarditis and congestive heart failure), and slight T nI elevations occur in patients with other conditions, including sepsis, kathie al failure, acidosis, acute neurological disease, and persistent tachyarrhythmia . Sap Architect ID - LA Performing Organization Address [facility] [facility] [place] [address] 0 [phone] [place] [address] * Vitamin B12 and Folate (02/28/2020 8:53 AM CDT) Vitamin B12 382 213 - 816 pg/mL [facility] Folate 4.10 (L) >=7.00 ng/mL [facility] Specimen Blood Narrative Performed At Sap Architect ID - [facility] Performing Organization Address [facility] [place] [address] 0 [phone] [place] [address] * Iron, TIBC, % sat. (without ferritin) (02/28/2020 8:53 AM CDT) Iron 16.0 (L) 40.0 - 160.0 ug/dL [facility] TIBC 404 250 - 450 ug/dL [facility] Iron % Saturation 4 (L) 20 - 55 % [facility] Specimen Blood Narrative Performed At [employer]ap Architect ID [facility] Performing Organization Address [facility] [place] [address] 0 [phone] [place] [address] * CBC with platelet count + automated diff (02/28/2020 8:53 AM CDT) WBC 13.0 (H) 3.5 - 10.5 K/L [facility] RBC 3.92 (L) 3.93 - 5.22 M/L [facility] Hemoglobin 8.4 (L) 11.2 - 15.7 GM/DL [facility] Hematocrit 30.0 (L) 34.1 - 44.9 % [facility] MCV 76.5 (L) 79.4 - 94.[address] [facility] MCH 21.4 (L) 25.6 - 32.[address] [facility] MCHC 28.0 (L) 32.2 - 35.5 GM/DL [facility] RDW 22.3 (H) 11.7 - 14.4 % [facility] Platelets 346 150 - 450 K/CU MM [facility] MPV 8.3 (L) 9.4 - 12.[address] [facility] nRBC 0 0 - 0 /[address] [facility] % Neutros 79 % [facility] % Lymphs 16 % [facility] % Monos 4 % [facility] % Eos 0 % [facility] % Baso 0 % [facility] # Neutros 10.25 (H) 1.56 - 6.13 K/L [facility] # Lymphs 2.04 1.18 - 3.74 K/L [facility] # Monos 0.54 (H) 0.24 - 0.36 K/L [facility] # Eos 0.03 (L) 0.04 - 0.36 K/L [facility] # Baso 0.03 0.01 - 0.08 K/L [facility] Immature 1 0 - 1 % [facility] Granulocytes-Relative [facility] Specimen Blood Performing Organization Address City/[facility] one Number [address] 0 [phone] [place] [address] * Lactic acid, venous (02/28/2020 8:53 AM CDT) Lactate, Venous 2.15 0.50 - 2.20 mmol/L [facility] Specimen Blood Narrative Performed At [employer] ID - [place] [facility] Performing Organization Address City/[facility] Ph one Number [address] 0 [phone] [address] * Reticulocyte count (02/28/2020 8:53 AM CDT) % Retic 2.2 (H) 0.5 - 1.7 % [facility] Specimen Blood Narrative Performed At S[employer] ID - [id number] [facility] Performing Organization Address City/[facility] Ph one Number [address] 0 [phone] [place] [address] * MRSA screen (02/28/2020 8:53 AM CDT) Result No MRSA isolated [facility] Specimen Nasal Performing Organization Address City/[facility] Ph one Number [address] 0 [phone] [place] [address] * B-type Natriuretic Factor (BNP) (02/28/2020 8:53 AM CDT) BNP 62 0 - 100 pg/mL [facility] Specimen Blood Narrative Performed At [employer] ID - [place] [facility] Performing Organization Address City/[facility] Ph one Number [address] [facility] * Hemoglobin A1c (02/28/2020 8:53 AM CDT) Hemoglobin A1C 7.8 (H) 4.3 - 6.1 % [facility] Specimen Blood Performing Organization Address [facility] Number [address]70 [facility] * Blood gas, venous (02/28/2020 8:53 AM CDT) pH, Oren 7.33 7.32 - 7.[address] [facility] pCO2, Oren 63 (H) 41 - [address] [facility] pO2, Oren 43 (H) 25 - [address] [facility] O2 Sat, Oren 74.9 (H) 40.0 - 70.0 % [facility] HCO3, Oren 33 (H) 21 - 29 mmol/L [facility] Base Excess, Oren 5.4 (H) -2.0 - 3.0 mmol/L [facility] Patient Temperature 36.5 C [facility] FIO2 21.0 % [facility] Specimen Blood Performing Organization Address [facility] [place] [address] [facility] * Ferritin (02/28/2020 8:53 AM CDT) Ferritin 6.73 5.00 - 275.00 ng/mL [facility] Specimen Blood Narrative Performed At [employer] ID - [place] [facility] Performing Organization Address City/[facility] Number [place] [address] [facility] * Procalcitonin (02/28/2020 8:52 AM CDT) Procalcitonin <0.05 <0.05 ng/mL [facility] Specimen Blood Narrative Performed At SEPSIS RISK (ng/mL) [facility] Low:0.05-0.50 [facility] Intermediate: 0.51-2.00 High: >=2.01 Performing Organization Address [facility] Number [address] [facility] * aPTT (02/28/2020 8:52 AM CDT) PTT 30.6 22.5 - 36.0 seconds [facility] Specimen Blood Performing Organization Address [facility] Number [address] [facility] * Prothrombin time/INR (02/28/2020 8:52 AM CDT) Protime 14.0 11.9 - 14.2 seconds [facility] INR 1.1 <=5.[address] [facility] Specimen Blood Narrative Performed At Effective 03/28/2019: PT Reference Range Change [facility] New: 11.9-14.2Previous: 11.7-14.7 [facility] MEDICAL CE NTER RECOMMENDED COUMADIN/WARFARIN INR THERA PY RANGES STANDARD DOSE: 2.0-3.0Includes: PRO PHYLAXIS for venous thrombosis, systemic embolization; TREATMENT for venous thro mbosis and/or pulmonary embolus. HIGH RISK: Target INR is 2.5-3.5 for pa tients wiht mechanical heart valves. Performing Organization Address [facility] one Number [address] [facility] * Fibrinogen (02/28/2020 8:52 AM CDT) Fibrinogen 350 225 - 434 mg/dl [facility] Specimen Blood Performing Organization Address [facility] Number [address] [place] [address] [facility] * Magnesium (02/28/2020 8:52 AM CDT) Magnesium 1.6 1.6 - 2.6 mg/dL [facility] Specimen Blood Narrative Performed At [employer] ID - [facility] Performing Organization Address City/State/Zipcode Ph one Number [address] [facility] * Comprehensive metabolic panel (02/28/2020 8:52 AM CDT) Protein, Total 6.2 6.0 - 8.3 gm/dL [facility] Albumin 3.3 (L) 3.5 - 5.0 g/dL [facility] Alkaline Phosphatase 117 40 - 150 U/L [facility] Total Bilirubin 0.3 0.2 - 1.2 mg/dL [facility] Sodium 137 136 - 145 meq/L [facility] Potassium 5.4 (H) 3.5 - 5.1 meq/L [facility] Chloride 101 98 - 107 meq/L [facility] CO2 31 (H) 22 - 29 meq/L [facility] BUN 18 7 - 21 mg/dL [facility] Creatinine 0.78 0.57 - 1.25 mg/dL [facility] Glucose 135 (H) 70 - 105 mg/dL [facility] Calcium 8.6 8.4 - 10.2 mg/dL [facility] AST 13 5 - 34 U/L [facility] ALT 7 6 - 55 U/L [facility] EGFR 76Comment: ESTIMATED GFR IS mL/min/1.73 sq m [facility] NOT ACCURATE CREATININE [facility] CLEARANCE IN PREDICTING GLOMERULAR FILTRATION RATE. ESTIMATED GFR IS NOT APPLICABLE FOR DIALYSIS PATIENTS. Specimen Blood Narrative Performed At [employer] ID - [facility] Performing Organization Address City/State/Zipcode Ph one Number [facility] [address] [place], [place] [address] [facility] after 06/13/2019 Insurance Payer Benefit Subscriber ID Type Phone Address Plan / Group [facility] xxxxxxxxx MEDICARE MGD CARE MEDICARE HMO MEDICAID - MEDICAID MGD [facility] xxxxxxxxx Medica id CARE COMM STAR Contracted PLAN CDC REVIEW CDC REVIEW xxxxxxxx [address] [place] [place] [address] ([place]) [place] [address] Advance Directives For more information, please contact: [facility] [address] [place] [address] Date Inactivated Comments Code Status Date Activated 03/01/2020 5:51 PM Full Code 02/28/2020 8:19 AM This code status was determined by: Patient
--- OUTSIDE RECORDS SUMMARY | 2020-06-13 17:28 | XMS REPORT | Clinical Summary ---
Author Author [facility] Organization [place] [facility] Address Unknown Phone Unavailable Care Team Providers Care Uniform Attendant Name Role Phone Daren Dupree DO PCP Allergies Comments Active Allergy Reactions Severity Noted Date Irritates my asthma. Aspirin Other (See 11/12/2018 Comments) Iodine Anaphylaxis High 11/12/2018 "Irritates my asthma and hurts my stomach." Ibuprofen Other (See 11/12/2018 Comments) Medications Not on file Active Problems Not on file Immunizations Name Administration Dates Next Due Tdap 11/12/2018 Social History Date Tobacco Use Types Packs/Day Years Used Current Every Day Smoker Cigarettes 1 Smokeless Tobacco: Never Used Drinks/Week oz/Week Comments Alcohol Use No Alcohol Habits Answer Date Recorded How often do you have a drink containing alcohol? Never 11/12/2018 How many drinks containing alcohol do you have on No t asked a typical day when you are drinking? How often do you have six or more drinks on one Not asked occasion? Sex Assigned at Date Recorded Not on file Industry Job Start Date Occupation Not on file Not on file Not on file Travel End Travel History Travel Start No recent travel history available. 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
[2020-06-13] MEDS ORDERED: ONDANSETRON HCL INJ 2MG/ML 2ML 2 MG/ML VIAL IV PRN (17:30)
--- OUTSIDE RECORDS SUMMARY | 2020-06-13 17:32 | XMS REPORT | Continuity of Care Document ---
Author Author [facility] t Organization [facility] Address 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 Name Role Phone DO CORRIE DEVRIES DO PCP Sun ALBERT Attphys Unavailable JHOAN VANG Attphys Unavailable Taj TRIANA, Jhoan Collado Attphys Ann-Marie TRIANA, Sebastian Wilder Attphys [phone] Jaime TRIANA, Anne-Marie Attphys DO SCHROEDER Attphys Unavailable Favian GONZALEZ Attphys Unavailable Jose David VALDOVINOS Attphys Unavailable Tin Ruiz Attphys Antonio Ash Jr Attphys Alejandro Samuel Attphys Adrian Sepulveda Attphys Malgorzata HALE Attphys Unavailable Thomas FISH Attphys Unavailable LOLA BOUCHER Attphys Unavailable Marylu Garcia Attphys CORRIE DEVRIES Attphys Unavailable Favian BECKER Attphys Unavailable Shama PORTER Attphys Unavailable Nidhi Kennedy Attphys Susan Coy Attphys Jose David Rocha II Attphys JHOAN VANG Admphys Unavailable Tin Ruiz Admphys Antonio Ash Jr Admphys [phone] CocoAdrian tolliver Admphys LOLA BOUCHER Admphys Unavailable Jose Marylu Admphys Payers Payer Name Policy Type Policy Number Effective Date Expiration Date S ruperto [facility] [id number] 2019 00:00:00 [facility] Stereotypes [facility] [id number] 2019 00:00 :00 [facility] - MEDICARE MGD CAREUNITED MEDICARE HMOxxxxxxxxx xxxxxxxxx [facility] MEDICAID - MEDICAID MGD CAREMCD COMM STAR PLANxxxxxxxxxMe dicaid Contracted xxxxxxxxx [facility] CDC REVIEWCDC REVIEWxxxxxxxx[place] [address] x xxxxxxx [facility] Problems Condition Name Condition Details Condition Category Status Onset Date Resolution Date Last Treatment Date Treating Clinician Comments Source Respiratory insufficiency Respiratory insufficiency Disease Ac tive 2020-02-28 00:00:00 [facility] ACS ACS Active 02/27/2019 [facility] Diagnosis Active 2019-02-27 00:00:00 2019-03-07 22:17:00 M emorihugo Shea COPD COPD Active 02/27/2019 [facility] Diagnosis Active 2019-02-27 00:00:00 2019-02-27 17:46:00 Sandra Shea WEAKNESS WEAK NESS Active 02/02/2019 [facility] Diagnosis Active 2019-02-02 00:00:00 2019-02-02 16:52:00 Sandra Shea ALTERED MENTAL STATUS, NSTEMI ALTERED MENTAL STATUS, NSTEMI Active 02/02/2019 [facility] Active 2019-02-02 00:00: 00 2019-02-06 15:03:[address] [facility] SOB SOB Active 08/29/2018 [facility] Active 2018-08-29 00:00:00 2018-08-29 14:37:00 [facility] ACUTE UTI, SEPSIS ACUT E UTI, SEPSIS Active 08/29/2018 [facility] Active 2018-08-29 00:00:00 2019-01-27 15:06:[address] [facility] GALUCOMA GALU COMA Active 07/13/2018 [facility] Diagnosis Active 2018-07-13 00:00:00 2018-07-17 07:47:[address] [facility] NEAR SYNCOPE, CHEST PAIN NEAR SYNCOPE, CHEST PAIN Active 06/11/2018 [facility] Diagnosis Active 2018-06-11 00:00:00 2018-06-12 10:14:[address] [facility] HYPOGLYCEMIA HYPO GLYCEMIA Active 11/16/2017 [facility] Diagnosis Active 2017-11-16 00:00:00 2017-11-16 19:28:[address] [facility] HYPOGLYCEMIA ASSOCIATED WITH DIABETES HYPOGLYCEMIA ASSOCIATED WITH DIABETES Active 11/16/2017 [facility] Ac tive 2017-11-16 00:00:00 2019-01-12 12:25:00 [facility] D47.3 - ESSENTIAL (HEMORRHAGIC) THROMB D D47.3 - ESSENTIAL (HEMORRHAGIC) THROMB D Active 12/06/2016 [facility] Active 2016-12-06 00:01:00 2016-12-09 10:02:[address] [facility] Shabbir D72.829 - ELEVATED WHITE BLOOD CELL COUN D72.829 - ELEVATED WHITE BLOOD CELL COUN Active 10/11/2016 [facility] Active 2016-10-11 00:01:00 2016-11-22 16:55:[address] [facility] Shabbir M54.5 - LOW BACK PAIN M54. 5 - LOW BACK PAIN Active 12/22/2015 [facility] Active 2015-12-22 00:01:00 2015-12-22 11:33:[address] [facility] Acute renal failure Acute renal failure Problem Active [facility] Azotemia Azotemia Problem Active [facility] Confusion Confusion Problem Active [facility] Fall Fall [facility] Hyperkalemia Hyperkalemia Problem Active [facility] Strain of neck muscle Neck strain Problem Active [facility] Contusion of shoulder Shoulder contusion Problem Active [facility] Dehydration Dehydration Problem Active [facility] Hypoglycemia Hypoglycemia Problem Active [facility] Hypotension Hypotension Problem Active [facility] Acute exacerbation of chronic obstructive pulmonary disease COPD exacerbation Problem Active [facility] Chest pain Chest pain Problem Active [facility] Hyperglycemia Hyperglycemia Problem Active [facility] Renal insufficiency Renal insufficiency Problem Active [facility] Sprain of wrist Problem Active [facility] Hypertensive chronic kidney disease with stage 1 through stage 4 chronic kidney disease, or unspecified chronic kidney disease Hypertensive chronic kidney disease with stage 1 through stage 4 chronic kidney disease, or unspecified chronic kidney disease 02/03/2019 [facility] Problem 2019-02-03 12:52:47 [place] Shea Type 2 diabetes mellitus with diabetic chronic kidney disease Type 2 diabetes mellitus with diabetic chronic kidney disease 02/03/2019 [facility] Problem 2019-02-03 12:52:47 Sandra Shea Chronic kidney disease, stage 2 (mild) Chronic kidney disease, stage 2 (mild) 02/03/2019 [facility] Problem 2019-02-03 12:52:47 Sandra Shea Chronic obstructive pulmonary disease, unspecified Chronic obstructive pulmonary disease, unspecified 02/03/2019 [facility] Problem 2019-02-03 12:52:47 [place] Shea Old myocardial infarction Old myocardial infarction 02/03/2019 [facility] Problem 2019-02-03 12:52:47 Sandra Shea Nicotine dependence, cigarettes, uncomplicated Nicotine dependence, cigarettes, uncomplicated 02/03/2019 [facility] Problem 2019-02-03 12:52:47 [place] Shea Hyperlipidemia, unspecified Hy perlipidemia, unspecified 02/03/2019 [facility] Problem 2019-02-03 12:52:47 Sandra Shea Anxiety disorder, unspecified Anxiety disorder, unspecified 02/03/2019 [facility] Problem 2019-02-03 12:52:47 [facility] Obesity, unspecified Obes ity, unspecified 02/03/2019 [facility] Problem 12:52:47 [facility] MCC (current) use of insulin superintendent container terminal (current) use of insulin 02/03/2019 [facility] Problem 2019-02-03 12:52:47 [facility] superintendent container terminal (current) use of aspirin superintendent container terminal (current) use of aspirin 02/03/2019 [facility] Problem 2019-02-03 12:52:47 [facility] Body mass index (BMI) 36.0-36.9, adult Body mass index (BMI) 36.0-36.9, adult 02/03/2019 [facility] Problem 2019-02-03 12:52:47 [facility] Chest pain, unspecified Ches t pain, unspecified 12/30/2018 [facility] 2018-12-30 14:18:38 [facility] Type 2 diabetes mellitus with hyperglycemia Type 2 diabetes mellitus with hyperglycemia 12/30/2018 [facility] 2018-12-30 14:18:38 [facility] Abnormal findings on diagnostic imaging of heart and c oronary circulation Abnormal findings on diagnostic imaging of heart and coronary circulation 12/30/2018 [facility] 2018-12-30 1 4:18:38 [facility] Panic disorder [episodic paroxysmal anxiety] without a goraphobia Panic disorder [episodic paroxysmal anxiety] without agoraphobia 12/30/2018 [facility] 2018-12-30 14:18:38 [facility] Type 2 diabetes mellitus with unspecifie d diabetic retinopathy without macular edema Type 2 diabetes mellitus with unspecified diabetic retinopathy without macular edema 12/30/2018 [facility] 2018-12-30 14:18:38 [facility] 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 Other senior care (current) drug therapy 12/30/2018 [facility] 2018-12-30 14:18:38 [facility] Type 2 diabetes mellitus with diabetic neuropathy, uns pecified Type 2 diabetes mellitus with diabetic neuropathy, unspecified 12/30/2018 [facility] 2018-12-30 14:18:38 [facility] Tobacco abuse counseling 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 Cerebral ischemia Cere bral ischemia 12/30/2018 [facility] 2018-12-30 14:18:38 Ca lily Shea Abnormal brain scan Abno rmal brain scan 12/30/2018 [facility] 2018-12-30 14:18:38 Ca lily Shea Personal history of other diseases of the circulatory system Personal history of other diseases of the circulatory system 12/30/2018 [facility] 2018-12-30 14:18:38 Ca lily Shea Allergy status to sulfonamides status Allergy status to sulfonamides status 12/30/2018 [facility] 2018-12-30 14:18:[address] 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 12/30/2018 [facility] 2018-12-30 14:18:38 [facility] Family history of ischemic heart disease and other diseases of the circulatory system Family history o f ischemic heart disease and other diseases of the circulatory system 12/30/2018 [facility] 2018-12-30 14:18:38 [facility] superintendent container terminal (current) use of antithrombotics/antiplatele ts [facility] (current) use of antithrombotics/antiplatelets 12/30/2018 [facility] 2018-12-30 14:18:38 Ca lily Shea Type 2 diabetes mellitus with diabetic polyneuropathy Type 2 diabetes mellitus with diabetic polyneuropathy 02/23/2018 [facility] 2018-02-23 18:49:23 [facility] Major depressive disorder, single episode, unspecified Major depressive disorder, single episode, unspecified 02/23/2018 [facility] 2018-02-23 18:49:23 [facility] Gastro-esophageal reflux disease without esophagitis Gastro-esophageal reflux disease without esophagitis 02/23/2018 [facility] Problem 2018-02-23 18:49:23 Sandra Shabbir Insomnia, unspecified Inso mnia, unspecified 02/23/2018 [facility] Problem 2018-02-23 18:49:23 Alverto Shea Hypomagnesemia Hypo magnesemia 02/23/2018 [facility] Problem 2018-02-23 18:49:23 Sandra Shea Type II diabetes mellitus uncontrolled (finding) Type II diabetes mellitus uncontrolled (finding) Active Problem 03/02/2019 [facility] Problem Active 2019-03-02 23:32:[address] [facility] Shabbir TYPE 2 DIABETES MELLITUS WITH HYPOGLYCEM TYPE 2 DIABETES MELLITUS WITH HYPOGLYCEM Active [facility] Active 2019-01-12 12:25:00 Sandra Shea SYNCOPE AND COLLAPSE SYNC OPE AND COLLAPSE Active [facility] Diagnosis Active 2018-06-12 10:14:00 Ca lily Shea CHEST PAIN, UNSPECIFIED CHES T PAIN, UNSPECIFIED Active [facility] Active 2018-06-12 10:14:00 Sandra Shea URINARY TRACT INFECTION, SITE NOT SPECIF URINARY TRACT INFECTION, SITE NOT SPECIF Active [facility] Diagnosis Active 2019-01-27 15:06:[address] [facility] Shabbir SEPSIS, UNSPECIFIED ORGANISM S EPSIS, UNSPECIFIED ORGANISM Active [facility] Diagnosis Active 2019-01-27 15:06 :00 Sandra Shea ALTERED MENTAL STATUS, UNSPECIFIED ALTERED MENTAL STATUS, UNSPECIFIED Active [facility] Diagnosis Active 2019-02-06 15:03:00 Sandra Shea NON-ST ELEVATION (NSTEMI) MYOCARDIAL INF NON-ST ELEVATION (NSTEMI) MYOCARDIAL INF Active [facility] Active 2019-02-06 15:03:00 Sandra Shea Primary open-angle glaucoma, right eye, stage unspecif ied Primary open-angle glaucoma, right eye, stage unspecified 09/30/2018 02/03/2019 [facility] Problem 2018-09-30 04:56:43 2019-01 12:52:47 2019-02-03 12:52:47 Sandra Shea Dizziness and giddiness Dizz iness and giddiness 07/07/2018 12/30/2018 [facility] Problem 2018-07-07 03:53:45 2018 14:18:38 2018-12-30 14:18:38 Sandra Shea Type 2 diabetes mellitus with hypoglycemia without com a Type 2 diabetes mellitus with hypoglycemia without coma 11/23/2017 02/23/2018 [facility] Problem 2017-11-23 04:48:56 2018-02-23 18:49:23 2018-01 18:49:23 [facility] Allergies, Adverse Reactions, Alerts Allergy Name Allergy Type Status Severity Reaction(s) Onset Date Inacti ve Date Treating Clinician Comments Source Penicillin Allergy to substance Active 2020-02-28 00:00:00 [facility] Chocolate Flavor Propensity to adverse reactions Active 2020-02-28 00:00:00 [facility] Egg Propensity to adverse reactions Active 2020-02-28 00 :00:00 [facility] Iodine And Iodide Containing Products Propensity to adverse reactio ns Active Anaphylaxis 2020-02-28 00:00:[address] [facility] Kiwi (Actinidia Chinensis) Propensity to adverse reactions Active 2020-02-28 00:00:00 [facility] Cameron Propensity to adverse reactions Active 2020-02-28 00 :00:00 [facility] Milk Containing Products Propensity to adverse reactions Active 2020-02-28 00:00:00 [facility] Winkler Juice Propensity to adverse reactions Active 00:00:00 [facility] Passion Fruit Propensity to adverse reactions Active 17-02-30 [facility] Peanut Propensity to adverse reactions Active Anaphyla xis 2020-02-28 00:00:00 [facility] Wheat Containing Prod Propensity to adverse reactions Active 2020-02-28 00:00:00 [facility] STEROIDS Propensity to adverse reactions Active 2019-10-10 00:00:00 [facility] Aspirin Propensity to adverse reactions to drug Active Other (See Comments) 2018-11-12 00:00:00 Irritates my asthma. Kenia Robles Iodine Propensity to adverse reactions to drug Active Anaphylaxis 2018-11-12 00:00:00 Ramesh mosquera Ibuprofen Propensity to adverse reactions to drug Active Other (See Comments) 2018-11-12 00:00:00 "Irritates my asthma and meg ts my stomach." Ramesh Robles Ibuprofen Allergy to substance Active 2018-10-06 00:00:00 [facility] Iodinated Contrast Media Allergy to substance Active Severe a naphylactic shock 2018-10-05 00:00:00 [facility] NSAIDS (Non-Steroidal Anti-Inflamma Allergy to substance Active 2018-06-05 00:00:00 [facility] Sulfa (Sulfonamide Antibiotics) Allergy to substance Active 2018-06-05 00:00:00 [facility] Aspirin Allergy to substance Active 2018-06-05 00:00:00 [facility] Milk Containing Products DA Active U 2018-01-29 00:00:00 [facility] Iodinated Contrast- Oral and IV Dye Allergy to Substance Active S evere 2017-07-15 00:00:00 [facility] NSAIDS (Non-Steroidal Anti-Inflamma Allergy to Substance Active M ild 2017-07-15 00:00:00 [facility] TOPICAL , IV IODINE Allergy to substance Active Severe ANAPHA LACTIC SHOCK 2015-09-08 00:00:00 [facility] soap DA Active U 2014-03-26 00:00:00 [facility] NSAIDS (Non-Steroidal Anti-Inflamma DA Active U 2014-03-01 7 00:00:00 [facility] iodine DA Active U 2014-03-26 00:00:00 [facility] aspirin DA Active U 2014-03-26 00:00:00 [facility] ibuprofen DA Active U 2014-03-26 00:00:00 [facility] povidone-iodine DA Active U 2014-03-26 00:00:00 [facility] shellfish derived DA Active U 2014-03-26 00:00:00 [facility] Aspirin Propensity to adverse reactions Active Other (See Comme nts) Intensifies asthma [facility] sulfa drugs sulfa drugs Active [facility] predniSONE predniSONE Active [facility] aspirin aspirin Active [facility] iodine iodine Active [facility] NSAIDs NSAIDs Active [facility] Family History Family Member Diagnosis Comments Start Date Stop Date Source Natural father Heart disease [facility] Natural mother Arthritis [facility] Natural mother Depression [facility] Social History Social Habit Start Date Stop Date Quantity Comments Source History of tobacco use Cigarette Smoker [facility] History SDOH Alcohol Std Drinks [facility] SDOH Alcohol Binge [facility] Sex Assigned At [facility] Cigarettes smoked current (pack per day) - Reported 00:00:00 2018-11-12 00:00:00 [facility] Alcohol intake 2018-11-12 00:00:00 2018-11-12 00:00:00 Current non-drinker of alcohol (finding) [facility] SDOH Alcohol Frequency 2018-11-12 00:00:00 2018-11-12 00:00:0 0 1 [facility] Social History 2016-12-10 05:59:00 2016-12-10 05:59:00 [facility] Smoking Status Start Date Stop Date Source Current every day smoker 2018-11-12 00:00:00 [facility] Medications Ordered Medication Name Filled Medication Name Start Date Stop Da te Current Medication? Ordering Clinician Indication Dosage Frequency Signature (SIG) Comments Components Source AZITHROmycin (ZITHROMAX) 250 MG tablet 3 00:00:00 2020-03-06 23:59:00 No Take by mouth as directed.. [facility] polyethylene glycol (GLYCOLAX) 17 gram packet 20 19-03-03 00:00:00 2020-03-05 23:59:00 No 17g QD Take 17 g by mouth daily for 3 days. [facility] ferrous sulfate 325 (65 FE) MG tablet 2020-03-01 00:00 :00 2021-03-01 23:59:00 No 325mg Q.5D Take 1 tablet (325 mg total) b y mouth 2 (two) times daily. [facility] amoxicillin-clavulanate (AUGMENTIN) 500-125 mg per tablet 2020-03-01 00:00:00 2020-03-06 23:59:00 No 1{tbl} Q.[id number] Take 1 tablet by mouth 3 (three) times daily for 5 days. [facility] ammonium lactate (LAC-HYDRIN) 12 % lotion 2020-02-29 21:39:42 Yes Q.5D Apply topically 2 (two) times daily. [facility] montelukast (SINGULAIR) 10 mg tablet 2020-02-29 21:39:41 Ye s 10mg QD Take 10 mg by mouth daily. [facility] REXULTI 3 mg Tab tablet 2020-02-22 00:00:00 Yes 3mg QD Take 3 mg by mouth daily. [facility] busPIRone (BUSPAR) 10 MG tablet 2020-02-22 00:00:00 Yes 2{tbl} Q.[id number] Take 2 tablets by mouth 3 (three) times daily. [facility] mirtazapine (REMERON) 30 MG tablet 2020-02-22 00:00:00 Yes 30mg QD Take 30 mg by mouth nightly. [facility] traZODone (DESYREL) 300 MG tablet 2020-02-22 00:00:00 Yes 1{tbl} QD Take 1 tablet by mouth nightly. [facility] HUMALOG KWIKPEN INSULIN 100 unit/mL In 2020-02-19 00:00:00 Yes 8U Inject 8 Units subcutaneously 3 (three) times daily with meals INJECT 8 UNITS SQ THREE TIMES DAILY BEFORE MEALS + SLIDING SCALE USING 1 UNIT FOR EVERY 30 POINTS ABOVE GLUCOSE 150 MDD 50 UNITS. [facility] divalproex (DEPAKOTE) 500 MG 24 hr tablet 2020-02-18 00:00:00 Yes 1{tbl} QD Take 1 tablet by mouth daily. [facility] clonazePAM (KLONOPIN) 1 MG tablet 2020-02-15 00:00:00 Yes 1{tbl} Take 1 tablet by mouth 2 (two) times daily as needed. [facility] LANTUS SOLOSTAR U-100 INSULIN 100 unit/mL (3 mL) In 2020-02-15 00:00:00 Yes 40U QD Inject 40 Units subcutaneously nightly. [facility] metFORMIN (GLUCOPHAGE-XR) 750 MG 24 hr tablet 2020-02-12 00:00:0 0 Yes 2{tbl} Take 2 tablets by mouth daily with dinner. [facility] dlqedsxtoa-lfuwprxrtcgdz-aimbafxn (FIORICET, ESGIC) 50-325-4 0 mg per tablet 2020-01-24 00:00:00 Yes 1{tbl} Take 1 tablet by mouth every 6 (six) hours as needed for Headaches. [facility] gabapentin (NEURONTIN) 400 MG capsule 2020-01-24 00:00:00 Yes 400mg Q.[id number] Take 400 mg by mouth 3 (three) times daily. [facility] TRINTELLIX 20 mg Tab 2020-01-22 00:00:00 Yes 1{tbl} QD Take 1 tablet by mouth daily. [facility] BYDUREON 2 mg/0.85 mL AtIn auto-injector 2020-01-17 00:00:00 Yes 2mg Q7D Inject 2 mg subcutaneously once a week. [facility] PROAIR HFA 90 mcg/actuation inhaler 2020-01-16 00:00:00 Yes 1{puff} QD Take 1 puff by mouth daily. [facility] lisinopriL (PRINIVIL,ZESTRIL) 2.5 MG tablet 2020-01-02 00:00:00 Yes 2.5mg QD Take 2.5 mg by mouth daily. [facility] atorvastatin (LIPITOR) 40 MG tablet 2020-01-01 00:00:00 Yes 1{tbl} QD Take 1 tablet by mouth every evening. [facility] clopidogreL (PLAVIX) 75 mg tablet 2020-01-01 00:00:00 Yes 75mg QD Take 75 mg by mouth daily. [facility] omeprazole (PRILOSEC) 40 MG capsule 2020-01-01 00:00:00 Yes 1{capsule} QD Take 1 capsule by mouth daily. [facility] pregabalin (LYRICA) 50 MG capsule 2019-11-26 00:00:00 Yes 1{capsule} Take 1 capsule by mouth every 8 (eight) hours. [facility] Famotidine (Pepcid) 20 Mg TABLET Famotidine (Pepcid) 20 Mg T ABLET 2019-06-19 15:22:00 Yes 20 Twice A Day [facility] Hydroxyzine Hcl Hydroxyzine Hcl 2019-06-19 15:22:00 Yes 25 Three Times A Day as needed for Itching [facility] Seroquel 2019-03-01 02:00:00 No Notes: (Mic e as: SEROquel) [facility] Singulair 2019-03-01 02:00:00 No Notes: (Sa me as:Singulair) [facility] Remeron 2019-03-01 02:00:00 No Notes: (Same as:Remeron) [facility] atorvastatin 2019-03-01 02:00:00 No Notes: (Same as: Lipitor) [facility] Plavix 2019-02-28 22:00:00 No Notes: (Same As: Plavix) [facility] Morphine 2019-02-28 18:34:00 No 2 mg, 1 mL, Route: IVP, Drug form: SOLN, ONCE, Dosing Weight 104.545, kg, Start date: 02/28/19 13:34:00 CDT, Stop date: 02/28/19 13:34:00 CDT [facility] howard Acetaminophen 300 MG / Codeine Phosphate 30 MG Oral Tablet [Tylenol with Codeine #3] 2019-02-28 18:15:00 No Notes: Do not exceed 4gm/day of acetaminophen. (Same as: Tylenol with Codeine # 3) [facility] Omeprazole 2019-02-28 14:00:00 No 40 mg, Route: PO, Drug form: DRC, Daily, Dosing Weight 104.545, kg, Start date: 02/28/19 9:00:00 CDT, Duration: 30 day, Stop date: 03/29/19 9:00:00 CDT [facility] orial [place] Nicotine 2019-02-28 14:00:00 No Notes: (Same as: Habitrol) "Remove old patch before application of new patch" WASTE: F/P - P Waste Black; E - P Waste Black [facility] metoprolol extended release 2019-02-28 14:00:00 No Notes: (Same as: Toprol XL) May split tab, but do not crush. [facility] Lisinopril 2019-02-28 14:00:00 No Notes: (Same as: Prinivil, Zestril) [facility] insulin detemir 2019-02-28 14:00:00 No 32 unit, Route: SUB-Q, Drug form: SOLN, BID, Dosing Weight 104.545, kg, Start date: 02/28/19 9:00:00 CDT, Duration: 30 day, Stop date: 03/29/19 17:00:00 CDT [facility] gabapentin 2019-02-28 14:00:00 No Notes: (S lise as: Neurontin) [facility] Advair Diskus 100 mcg-50 mcg inhalation powder 2019-02-28 14:00: 00 No 1 puff, Route: INHALATION, Drug Form: PW DR, Dosing Weight 104.545, kg, BID, Start date: 02/28/19 9:00:00 CDT, Duration: 30 day, Stop date: 03/29/19 17:00:00 CDT [facility] Prozac 2019-02-28 14:00:00 No Notes: (Same as: Prozac) [facility] Buspirone 2019-02-28 14:00:00 No Notes: (Sa me As: BuSpar) [facility] Wellbutrin 2019-02-28 14:00:00 No Notes: (S lise As: Wellbutrin) [facility] Protonix 2019-02-28 12:30:00 No Notes: Tablet should not be chewed or crushed. (Same as: Protonix) [facility] NovoLog 2019-02-28 12:30:00 No Route: SUB-Q, Drug form: SOLN, TID- Before Meals, Dosing Weight 104.545, kg, Start date: 02/28/19 7:30:00 CDT, Duration: 30 day, Stop date: 03/29/19 16:30:00 CDT [facility] Humalog 2019-02-28 12:30:00 No Notes: (Same as: Humalog) Roll in palms of hands gently; Do not shake vigorously. WASTE: F/P - Black; E - Municipal Trash Bin Stable for 28 days at room temperature. [facility] 12:00:00 No Notes: SEE RT DOCUMENTATION (Same as: Proventil) [facility] Shabbir insulin glargine 2019-02-28 03:30:00 No Notes: (Same as: Lantus) Do not hold insulin without contacting prescriber WASTE: F/P - Black; E - Municipal Trash Bin "single patient use only" Stable for 28 days at room temperature Expires in days from Date [facility] Pulmicort Respules 2019-02-28 03:07:00 No Notes: (Same As: Pulmicort respule). [facility] Clonazepam 2019-02-28 02:51:00 No Notes: (S lise As: KlonoPIN) [facility] Albuterol 0.833 MG/ML / Ipratropium [place] 0.167 MG/ML Inha lant Solution 2019-02-28 02:51:00 No Notes: (Same as: D uoneb) [facility] Insulin Lispro 2019-02-28 02:51:00 No Notes: (Same as: Humalog) Roll in palms of hands gently; Do not shake vigorously. WASTE: F/P - Black; E - Municipal Trash Bin Stable for 28 days at room temperature. Expires in days from Date [facility] ezequiel Dextrose 50% Syringe 2019-02-28 02:51:00 No 12.5 gm, 25 mL, Route: IVP, Drug Form: INJ, Dosing Weight 104.545, kg, PRN, PRN Blood Glucose Results, Start date: 02/27/19 21:51:00 CDT, Duration: 30 day, Stop date: 03/29/19 21:50:[address] [facility] Shabbir Glucagon 2019-02-28 02:51:00 No 1 mg, Route: IM, Drug form: PDR/INJ, PRN, Dosing Weight 104.545, kg, PRN Blood Glucose Results, Start date: 02/27/19 21:51:00 CDT, Duration: 30 day, Stop date: 03/29/19 21:50:00 CDT [facility] Saline Flush 0.9% 2019-02-28 02:00:00 No Notes: (Same as: BD Posiflush) [facility] Lovenox 2019-02-28 01:00:00 No Notes: (Same as: Lovenox) [facility] Saline Flush 0.9% 2019-02-28 00:44:00 No Notes: (Same as: BD Posiflush) [facility] Ondansetron 2019-02-28 00:44:00 No Notes: ( Same as: Zofran) [facility] Acetaminophen 2019-02-28 00:44:00 No Notes: Do not exceed 4 gm/day. (Same as: Tylenol) [facility] Morphine 2019-02-28 00:44:00 No Not es: (Same as:MORPhine Sulfate) [facility] Nitroglycerin 2019-02-28 00:44:00 No Notes: (Same as:Nitroquick, Nitrostat) "Do Not Crush" Sublingual tablet [facility] Morphine 2019-02-27 23:17:00 No 4 mg, Route: IVP, ONCE, Dosing Weight 104, kg, Priority: STAT, Start date: 02/27/19 18:17:00 CDT, Stop date: 02/27/19 18:17:00 CDT [facility] Zofran 2019-02-27 21:01:00 No 4 mg, Route: IVP, Drug form: INJ, ONCE, Dosing Weight 104, kg, Priority: STAT, Start date: 02/27/19 16:01:00 CDT, Stop date: 02/27/19 16:01:00 CDT Espinoza Shea Acetaminophen 325 MG / Hydrocodone Bitartrate 5 MG Oral Tabl et [[place] 5/325] 2019-02-27 21:00:00 No 1 tab, Route: PO, Drug Form: TAB, Dosing Weight 104, kg, ONCE, STAT, Start date: 02/27/19 16:00:00 CDT, Stop date: 02/27/19 16:00:00 CDT [facility] metoprolol 50 mg oral tablet, extended release 2019-02-06 21:22: 00 Yes 50 mg = 1 tab, PO, Daily, # 30 tab, 0 Refill(s), Pharmacy: [facility] atorvastatin 40 mg oral tablet 2019-02-06 21:22:00 Yes 40 mg = 1 tab, PO, Bedtime, # 30 tab, 0 Refill(s), Pharmacy: [facility] Sandra Shea Aspirin 81 MG Enteric Coated Tablet 2019-02-06 21:22:00 Yes 81 mg = 1 tab, PO, Daily, 0 Refill(s) Sandra adair Aspirin 81 MG Enteric Coated Tablet 2019-02-06 14:00:00 No Notes: Do not crush or chew. (Same As: Ecotrin) Ca lily Shea Insulin Lispro 2019-02-06 03:27:00 No Notes: (Same as: Humalog ) Roll in palms of hands gently; Do not shake `vigorously. "Single Patient Use Only " WASTE: F/P - Black; E - Municipal Trash Bin Stable for 28 days at room temperature. Expires in days from Date Sandra Shea atorvastatin 2019-02-06 02:00:00 No 80 mg, Route: PO, Drug form: TAB, Bedtime, Dosing Weight 99.091, kg, Start date: 02/05/19 21:00:00 CDT, Duration: 30 day, Stop date: 03/06/19 21:00:00 CDT Sandra Shea Nitroglycerin 2019-02-05 19:59:00 No Notes: (Same as:Nitroquick, Nitrostat) "Do Not Crush" Sublingual tablet Sandra Shea Sodium Chloride 0.9% IV 1,000 mL 2019-02-05 19:59:00 No 1,000 mL, Rate: 100 ml/hr, Infuse over: 10 hr, Route: IV, Dosing Weight 99.091 kg, Total Volume: 1,000, Start date: 02/05/19 14:59:00 CDT, Duration: 12 hr, Stop date: 02/06/19 2:58:00 CDT, 2.15, m2 Sandra Shea Famotidine 2019-02-05 17:32:00 No Notes: (Same as: Pepcid) Can be dilute in 5-10cc NS IVP: Slow IV push over at least 2 minutes. Sandra Woodann Diphenhydramine 2019-02-05 17:32:00 No Notes: (Same as: Benadryl) [facility] methylPREDNISolone SODium SUCCinate 2019-02-05 17:32:00 No Notes: (Same as:Solu-MEDROL, A-Methapred) [facility] Shabbir normal saline 0.9% IV 1,000 mL 2019-02-05 16:50:00 No 1,000 mL, Rate: 75 ml/hr, Infuse over: 13.3 hr, Route: IV, Dosing Weight 99.091 kg, Total Volume: 1,000, Start date: 02/05/19 11:50:00 CDT, Duration: 30 day, Stop date: 03/07/19 11:49:00 CDT, 2.15, m2 [facility] Shabbir Flexeril 2019-02-05 14:52:00 No Notes: (Mic e As: Flexeril) [facility] Shabbir Dextrose 50% Syringe 2019-02-04 22:14:00 No 12.5 gm, 25 mL, Route: IVP, Drug Form: INJ, Dosing Weight 99.091, kg, PRN, PRN Blood Glucose Results, Start date: 02/04/19 17:14:00 CDT, Duration: 30 day, Stop date: 03/06/19 17:13:[address] [facility] Shabbir Glucagon 2019-02-04 22:14:00 No 1 mg, Route: IM, Drug form: PDR/INJ, PRN, Dosing Weight 99.091, kg, PRN Blood Glucose Results, Start date: 02/04/19 17:14:00 CDT, Duration: 30 day, Stop date: 03/06/19 17:13:00 CDT [facility] Insulin Lispro 2019-02-04 22:14:00 No Notes: (Same as: Humalog ) Roll in palms of hands gently; Do not shake `vigorously. "Single Patient Use Only " WASTE: F/P - Black; E - Municipal Trash Bin Stable for 28 days at room temperature. Expires in days from Date [facility] Shabbir Humalog 2019-02-04 22:10:00 No Notes: (Same as: Humalog ) Roll in palms of hands gently; Do not shake `vigorously. "Single Patient Use Only " WASTE: F/P - Black; E - Municipal Trash Bin Stable for 28 days at room temperature. Expires in days from Date Sandra Shea metoprolol extended release 2019-02-04 14:00:00 No Notes: (Same as: Toprol XL) May split tab, but do not crush. Sandra Shea Clonazepam 2019-02-04 02:21:00 No Notes: (S lise As: KlonoPIN) [facility] Shabbir Humalog 2019-02-04 02:20:00 No Notes: (Same as: Humalog ) Roll in palms of hands gently; Do not shake `vigorously. "Single Patient Use Only " WASTE: F/P - Black; E - Municipal Trash Bin Stable for 28 days at room temperature. Expires in days from Date [facility] Shabbir normal saline 0.9% IV 1,000 mL 2019-02-04 02:02:00 No 1,000 mL, Rate: 125 ml/hr, Infuse over: 8 hr, Route: IV, Dosing Weight 99.091 kg, Total Volume: 1,000, Start date: 02/03/19 21:02:00 CDT, Duration: 30 day, Stop date: 03/05/19 21:01:00 CDT, 2.15, m2 [facility] Shabbir atorvastatin 2019-02-04 02:00:00 No Notes: (Same as: Lipitor) [facility] Shabbir Remeron 2019-02-04 02:00:00 No Notes: (Same as:Remeron) [facility] Singulair 2019-02-04 02:00:00 No Notes: (Sa me as:Singulair) [facility] Plavix 2019-02-03 22:00:00 No Notes: (Same As: Plavix) [facility] Insulin Lispro 2019-02-03 18:04:00 No Notes: (Same as: Humalog ) Roll in palms of hands gently; Do not shake `vigorously. "Single Patient Use Only " WASTE: F/P - Black; E - Municipal Trash Bin Stable for 28 days at room temperature. Expires in days from Date Sandra Shea Acetaminophen 325 MG / Hydrocodone Bitartrate 10 MG Or al Tablet [[place] 10/325] 2019-02-03 17:00:00 No 1 ta b, Route: PO, Drug Form: TAB, Dosing Weight 99.091, kg, Q6H, Start date: 02/03/19 12:00:00 CDT, Duration: 30 day, Stop date: 03/05/19 6:00:[address] [facility] Shabbir Acetaminophen 325 MG / Hydrocodone Bitartrate 10 MG Or al Tablet [[place] 10/325] 2019-02-03 15:05:00 Yes 1 ta b, PO, 5X Day, PRN Pain Score 1-5, 0 Refill(s) Sandra Shea clonazePAM 0.5 mg oral tablet 2019-02-03 14:59:00 Yes 0.5 mg = 1 tab, PO, BID, PRN anxiety, # 60 tab, 0 Refill(s) [facility] insulin glargine 2019-02-03 14:00:00 No Notes: (Same as: Lantus) Do not hold insulin without contacting prescriber WASTE: F/P - Black; E - Municipal Trash Bin "single patient use only" [facility] gabapentin 2019-02-03 14:00:00 No Notes: (S lise as: Neurontin) [facility] Buspirone 2019-02-03 14:00:00 No Notes: (Sa me As: BuSpar) [facility] Wellbutrin 2019-02-03 14:00:00 No Notes: (Same as: Wellbutrin XL) "Do Not Crush" [facility] Protonix 2019-02-03 14:00:00 No Notes: Tablet should not be chewed or crushed. (Same as: Protonix) [facility] Prozac 2019-02-03 14:00:00 No Notes: (Same as: Prozac) [facility] Clonazepam 2019-02-03 14:00:00 No Notes: (S lise As: KlonoPIN) [facility] insulin detemir 2019-02-03 14:00:00 No 32 unit, Route: SUB-Q, Drug form: SOLN, BID, Dosing Weight 99.091, kg, Start date: 02/03/19 9:00:00 CDT, Duration: 30 day, Stop date: 03/04/19 17:00:[address] [facility] Lisinopril 2019-02-03 14:00:00 No Notes: (Same as: Odessa Lr) [facility] Advair Diskus 100 mcg-50 mcg inhalation powder 2019-02-03 14:00: 00 No 1 puff, Route: INHALATION, Drug Form: PW DR, Dosing Weight 99.091, kg, BID, Start date: 02/03/19 9:00:00 CDT, Duration: 30 day, Stop date: 03/04/19 17:00:00 CDT [facility] Omeprazole 2019-02-03 14:00:00 No 40 mg, Route: PO, Drug form: DRC, Daily, Dosing Weight 99.091, kg, Start date: 02/03/19 9:00:00 CDT, Duration: 30 day, Stop date: 03/04/19 9:00:00 CDT [facility] orial [place] Glucagon 2019-02-03 13:23:00 No 1 mg, Route: IM, Drug form: PDR/INJ, PRN, Dosing Weight 99.091, kg, PRN Blood Glucose Results, Start date: 02/03/19 8:23:00 CDT, Duration: 30 day, Stop date: 03/05/19 8:22:00 CDT [facility] Dextrose 50% Syringe 2019-02-03 13:23:00 No 25 gm, 50 mL, Route: IVP, Drug Form: INJ, Dosing Weight 99.091, kg, PRN, PRN Blood Glucose Results, Start date: 02/03/19 8:23:00 CDT, Duration: 30 day, Stop date: 03/05/19 8:22:00 CDT [facility] Insulin Lispro 2019-02-03 13:23:00 No Notes: (Same as: Humalog ) Roll in palms of hands gently; Do not shake `vigorously. "Single Patient Use Only " WASTE: F/P - Black; E - Municipal Trash Bin Stable for 28 days at room temperature. Expires in days from Date [facility] Hydroxyzine 2019-02-03 13:11:00 No Notes: (Same as: Atarax) Avoid alcohol. Sandra Shea Albuterol 0.833 MG/ML / Ipratropium [place] 0.167 MG/ML Inha lant Solution 2019-02-03 13:11:00 No Notes: (Same as: Shama grey) [facility] Acetaminophen 325 MG / Hydrocodone Bitartrate 10 MG Or al Tablet [[place] 10/325] 2019-02-03 09:00:00 No Note s: Do not exceed 4gm/day of acetaminophen. (Same as: [place] 325/10) [facility] Shabbir Zofran 2019-02-03 06:21:00 Yes 4 mg, PO, PRN , 0 Refill(s) Sandra Shea Acetaminophen 325 MG / Hydrocodone Bitartrate 10 MG Or al Tablet [[place] 10/325] 2019-02-03 06:21:00 No 1 tab, PO, Q6H, 0 Refill(s) [facility] Shabbir Humalog 2019-02-03 06:21:00 No SUB-Q, 0 Ref ill(s) [facility] Trazodone 2019-02-03 06:21:00 No 100 mg, PO , 0 Refill(s) [facility] Clonazepam 2019-02-03 06:21:00 No 1 mg, PO, TID, 0 Refill(s) [facility] Shabbir Remeron 2019-02-03 06:21:00 Yes 15 mg, PO, B edtime, 0 Refill(s) [facility] Shabbir 24 HR Nicotine 0.875 MG/HR Transdermal Patch 2019-02-03 06:21:00 Yes = 1 patch, TOP, Daily, # 30 patch, 0 Refill(s) [facility] Loperamide 2019-02-03 06:21:00 Yes 2 mg, PO, Q4H, PRN, 0 Refill(s) [facility] Shabbir Wellbutrin 2019-02-03 06:21:00 Yes See Instructions, 300 mg PO Qday, 0 Refill(s) [facility] [place] Lactate 2019-02-03 06:21:00 No TOP, BID, 0 Refill(s) [facility] Hydroxyzine Hydrochloride 25 MG Oral Tablet 2019-02-03 06:21:00 Yes 25 mg = 1 tab, PO, QID, 0 Refill(s) [place] Shea Advair Diskus 100 mcg-50 mcg inhalation powder 2019-02-03 06:21: 00 Yes 1 puff, INHALATION, BID, 0 Refill(s) [facility] Shabbir Glucagon 2019-02-03 04:19:00 No 1 mg, Route: IM, Drug form: PDR/INJ, PRN, Dosing Weight 91.818, kg, PRN Blood Glucose Results, Start date: 02/02/19 23:19:00 CDT, Duration: 30 day, Stop date: 03/04/19 23:18:00 CDT [facility] Dextrose 50% Syringe 2019-02-03 04:19:00 No 25 gm, 50 mL, Route: IVP, Drug Form: INJ, Dosing Weight 91.818, kg, PRN, PRN Blood Glucose Results, Start date: 02/02/19 23:19:00 CDT, Duration: 30 day, Stop date: 03/04/19 23:18:[address] [facility] Seroquel 2019-02-03 04:18:00 No Notes: (Mic e as: SEROquel) [facility] Clonazepam 2019-02-03 04:12:00 No Notes: (S lise As: KlonoPIN) [facility] Heparin 30 unit/kg Bolus (Heparin Dosing Weight) 2019-02-02 23:4 3:00 No Route: IVP, PRN, 2,000 unit, 2 mL, Drug form: INJ, PRN, Heparin Protocol, Start date: 02/02/19 18:43:00 CDT Stop date: 03/04/19 18:42:00 CDT, 30 day [facility] heparin additive 25,000 unit [12 unit/kg /hr] + Premix Diluent Dextrose 5% 500 mL 2019-02-02 23:43:00 No 500 mL, Rate: 16.03 ml/hr, Infuse over: 31.2 hr, Route: IV, Dosing Weight 66.8 kg, Total Volume: 500 mL, Start date: 02/02/19 18:43:00 CDT, Duration: 30 day, Stop date: 03/04/19 18:42:00 CDT, 1.73, m2 [facility] Heparin - one time bolus for ACS 2019-02-02 23:43:00 No 4,000 unit, 4 mL, Route: IVP, Drug form: INJ, ONCE, Dosing Weight 91.818, kg, Priority: STAT, Start date: 02/02/19 18:43:00 CDT, Stop date: 02/02/19 18:43:[address] [facility] Heparin 60 unit/kg Bolus (Heparin Dosing Weight) 2019-02-02 23:4 3:00 No Route: IVP, PRN, 4,000 unit, 4 mL, Drug form: INJ, PRN, Heparin Protocol, Start date: 02/02/19 18:43:00 CDT Stop date: 03/04/19 18:42:00 CDT, [address] [facility] alfentanil ([facility]) 2018-07-17 15:56:00 No Route: IV, Drug form: INJ, ONCE, Stop date: 07/17/18 10:56:00 CDT [facility] midazolam (ANES) 2018-07-17 15:46:00 No Route: IV, Drug form: SOLN, ONCE, Stop date: 07/17/18 10:46:00 [facility] S[facility] Ch[facility] 0.9% IV ([facility]) 1000 mL 2018-07-17 15:08:00 No Route: IV, Total Volume: 1,000, Start date: 07/17/18 10:08:00 CDT, Stop date: 07/17/18 11:08:00 CDT [facility] Trazodone 2018-07-14 15:16:00 No 20 mg, PO, Bedtime, 0 Refill(s) [facility] Plavix 2018-06-12 22:00:00 No Notes: (Same As: Plavix) [facility] Zofran 2018-06-12 20:25:00 No Notes: (Same as: Zofran) MEDICATION WASTE Product Size: 4 mg Product Wasted: ___ mg [facility] gabapentin 300 MG Oral Capsule 2018-06-12 17:00:00 No 300 mg = 1 cap, PO, TID, # 90 cap, 0 Refill(s), Pharmacy: [facility] Omeprazole 2018-06-12 14:00:00 No 40 mg, Route: PO, Drug form: DRC, Daily, Dosing Weight 102.273, kg, Start date: 06/12/18 9:00:00 CDT, Duration: 30 day, Stop date: 07/11/18 9:00:00 CDT Sveta Shea 24 HR Metformin hydrochloride 750 MG Extended Release Tablet 2018-06-12 14:00:00 No 750 mg, 1 tab, Route: PO, Drug form: ERTAB, BID, Dosing Weight 102.273, kg, Start date: 06/12/18 9:00:00 CDT, Duration: 30 day, Stop date: 07/11/18 17:00:00 CDT Sandra howard insulin detemir 2018-06-12 14:00:00 No 32 unit, Route: SUB-Q, Drug form: SOLN, BID, Dosing Weight 102.273, kg, Start date: 06/12/18 9:00:00 CDT, Duration: 30 day, Stop date: 07/11/18 17:00:00 CDT Sandra Shea Fluoxetine 2018-06-12 14:00:00 No Notes: (S lise as: Prozac) Sandra Shea insulin glargine 2018-06-12 14:00:00 No Notes: (Same as: Lantus) Do not hold insulin without contacting prescriber WASTE: F/P - Black; E - Municipal Trash Bin "single patient use only" Sandra Shea Humalog 2018-06-12 12:30:00 No Notes: (Same as: Humalog ) Roll in palms of hands gently; Do not shake `vigorously. "Single Patient Use Only " WASTE: F/P - Black; E - Municipal Trash Bin Stable for 28 days at room temperature. Expires in days from Date Sandra Shea Protonix 2018-06-12 12:30:00 No Notes: Tablet should not be chewed or crushed. (Same as: Protonix) Sandra Shea Ambien 2018-06-12 02:34:00 No Notes: (Same As: Ambien) Sandra Shea Acetaminophen 325 MG / Hydrocodone Bitartrate 5 MG Oral Tabl et [[place] 5/325] 2018-06-12 02:34:00 No Notes: (Same as: [place] 325/5) Do not exceed 4gm/day of acetaminophen. Sandra Mckeon nn Zofran 2018-06-12 02:34:00 No Notes: (Same as: Zofran) MEDICATION WASTE Product Size: 4 mg Product Wasted: ___ mg Sandra Shea Tylenol 2018-06-12 02:34:00 No Notes: Do not exceed 4 gm/day. (Same as: Tylenol) Sandra Shea Zofran 2018-06-12 02:25:00 No Notes: (Same as: Zofran) MEDICATION WASTE Product Size: 4 mg Product Wasted: ___ mg Sandra Shea Singulair 2018-06-12 02:00:00 No Notes: ([facility] as:Singulair) Sandra Shea gabapentin 400 MG Oral Capsule 2018-06-12 02:00:00 No Notes: (Same as: Neurontin) Sandra Shea Clonazepam 2018-06-12 02:00:00 No Notes: (S lise As: KlonoPIN) Sandra Shea Buspirone 2018-06-12 02:00:00 No Notes: ([facility] As: BuSpar) [facility] Shabbir Nicotine 2018-06-12 02:00:00 No 7 mg, 1 patch, Route: TOP, Drug form: ERFILM, Q24H, Dosing Weight 102.273, kg, Start date: 06/11/18 21:00:00 CDT, Duration: 30 day, Stop date: 07/10/18 21:00:[address] [facility] Shabbir *NURSE please bring home med METFORMIN to Pharmacy for label 2018-06-12 01:00:00 No *NURSE ple ase bring home med METFORMIN to Pharmacy for label, 1, Drug form: MISC, Route: MISC, TID, 06/11/18 20:00:00 CDT, Duration: 30 day, Stop date: 07/11/18 [facility] Sodium Chloride 0.45% IV 1,000 mL 2018-06-11 23:11:00 No 1,000 mL, Rate: 50 ml/hr, Infuse over: 20 hr, Route: IV, Dosing Weight 102.273 kg, Total Volume: 1,000, Start date: 06/11/18 18:11:00 CDT, Duration: 30 day, Stop date: 07/11/18 18:10:00 CDT, 2.18, m2 Sandra Shea Tramadol 2018-06-11 22:11:00 No 50 kg, Priority: STAT, Start date: 06/11/18 17:11:00 CDT, Stop date: 06/11/18 17:11:00 CDT Sandra Shea 24 HR Metformin hydrochloride 750 MG Extended Release Tablet 2018-06-11 22:03:00 Yes 750 mg = 1 tab, PO, BID, 0 Re fill(s) Sandra Shea lisinopril 2.5 mg oral tablet 2018-06-11 22:03:00 No 2.5 mg = 1 tab, PO, Daily, 0 Refill(s) Sandra Shea quetiapine 100 MG Oral Tablet [Seroquel] 2018-06-11 22:03:00 No 150 mg = 1.5 tab, PO, Bedtime, 0 Refill(s) Alverto Shea 3 ML insulin detemir 100 UNT/ML Prefilled Syringe [Levemir] 2018-06-11 22:02:00 No 32 unit, SUB-Q, BID, 0 Refill (s) Sandra Shea Insulin Lispro 100 UNT/ML Injectable Solution [Humalog] 2018-06-11 22:02:00 No 10 unit, SUB-Q, TID, 0 Refill(s) Sandra Shea gabapentin 400 MG Oral Capsule 2018-06-11 22:02:00 No 400 mg = 1 cap, PO, TID, 0 Refill(s) Sandra gonzales clonazePAM 0.5 mg oral tablet 2018-06-11 22:01:00 Yes 0.5 mg = 1 tab, PO, QID, 0 Refill(s) Sandra gonzales busPIRone 7.5 mg oral tablet 2018-06-11 22:01:00 No 7.5 mg = 1 tab, PO, BID, 0 Refill(s) Sandra Shea Omeprazole 2017-11-18 15:00:00 No 40 mg, Route: PO, Drug form: DRC, Daily, Dosing Weight 99.5, kg, Start date: 11/18/17 9:00:00 [employer], Duration: 30 day, Stop date: 12/17/17 9:00:00 [employer] Sveta Hillir 2017-11-18 15:00:00 No Notes: (Sa me as:Singulair) Sandra Shea Abilify 2017-11-18 15:00:00 No 10 mg, Route: PO, Drug form: TAB, Daily, Dosing Weight 99.5, kg, Start date: 11/18/17 9:00:00 [employer] MAINTENA[employer]CE ELECTRICIAN, Duration: 30 day, Stop date: 12/17/17 9:00:00 DIESEL MAINTENANCE ELECTRICIAN [facility] yousif Shea Plavix 2017-11-18 15:00:00 No Notes: (Same As: Plavix) Sandra Shea Protonix 2017-11-18 13:30:00 No Notes: Tablet should not be chewed or crushed. (Same as: Protonix) Sandra Shea Fluoxetine 2017-11-17 23:00:00 No Notes: (S lise as: Prozac) Sandra Shea have RPh verify & bar-code pt own Abilify 2017-11-17 22:00:00 No have RPh verify & bar-code pt own Abiroquefy, reminder, Drug form: MISC, Route: MISC, QSHIFT, 11/17/17 16:00:00 [employer]EL MAINTENANCE ELECTRICIAN, Duration: 30 day, Stop date: 12/17/17 8:00:00 DIESEL MAINTENANCE ELECTRICIAN Sandra Shea gabapentin 300 MG Oral Capsule 2017-11-17 19:00:00 No Notes: (Same as: Neurontin) Sandra Shea Magnesium Sulfate 2017-11-17 18:44:00 No Notes: WASTE: F/P - Sink; E - Municipal Trash Bin Sandra Shea Humalog 100 units/mL 2017-11-17 18:44:00 Yes 5 unit, SUB-Q, TID- Before Meals, # 10 mL, 0 Refill(s), other Sandra Shea 3 ML insulin detemir 100 UNT/ML Prefilled Syringe [Levemir] 2017-11-17 18:44:00 Yes 16 unit, SUB-Q, BID, # 10 mL, 0 Refill(s), other Sandra Shea Acetaminophen 325 MG / Hydrocodone Bitartrate 10 MG Oral Tab let 2017-11-17 09:25:00 No Notes: Do not exceed 4gm/day of acetaminophen. (Same as: [place] 325/10) Sandra Shea Acetaminophen 325 MG / Hydrocodone Bitartrate 5 MG Oral Tabl et 2017-11-17 09:03:00 Yes 1 tab, PO, Q4H, PRN Pain Scor e 4-6, 0 Refill(s) Sandra Woodann Dextrose 5% with 0.45% NaCl IV 1,000 mL 2017-11-17 07:23:00 No 1,000 mL, Rate: 75 ml/hr, Infuse over: 13.3 hr, Route: IV, Dosing Weight 99.5 kg, Total Volume: 1,000, Start date: 11/17/17 1:23:00 D[employer]EL MAINTENANCE ELECTRICIAN, Stop date: 12/17/17 1:22:00 DIESEL MAINTENANCE ELECTRICIAN, 2.15, m2 Sandra Woodann Acetaminophen 2017-11-17 06:20:00 No 650 mg, Route: PO, Drug form: TAB, ONCE, Dosing Weight 90.909, kg, Priority: STAT, Start date: 11/17/17 0:20:00 DIESEL MAINTENANCE ELECTRICIAN, Stop date: 11/17/17 0:20:00 DIESEL MAINTENANCE ELECTRICIAN Sandra Shea Dextrose 10% in Water IV 1,000 mL 2017-11-17 04:00:00 No 1,000 mL, Rate: 100 ml/hr, Infuse over: 10 hr, Route: IV, Dosing Weight 90.909 kg, Total Volume: 1,000, Start date: 11/16/17 22:00:00 D[employer]EL MAINTENANCE ELECTRICIAN, Duration: 30 day, Stop date: 12/16/17 21:59:00 DIESEL MAINTENANCE ELECTRICIAN, 2.06, m2 Sandra Shea Ondansetron 2017-11-17 03:40:00 No Notes: (Same as: Luis) MEDICATION WASTE Product Size: 4 mg Product Wasted: ___ mg Sandra Shea Acetaminophen 2017-11-17 03:40:00 No Notes: Do not exceed 4 gm/day. (Same as: Tylenol) Sandra Shea D10W 980.75 mL + sodium chloride 23.4% IV 77 mEq 2017-11-17 03:1 8:00 No 980.75 mL, Rate: 100 ml/hr, Infuse over: 10 hr, Route: IV, Dosing Weight 90.909 kg, Total Volume: 1,000, Start date: 11/16/17 21:18:00 DIESEL MAINTENANCE ELECTRICIAN, Duration: 30 day, Stop date: 12/16/17 21:17:00 DIESEL MAINTENANCE ELECTRICIAN, 2.06, m2 Sandra Shea Trazodone Hydrochloride 100 MG Oral Tablet 2017-11-17 02:51:00 No 200 mg = 2 tab, PO, Bedtime, PRN Insomnia, 0 Refill(s) Sandra Shea clonazePAM 1 mg oral tablet 2017-11-17 02:51:00 Yes 1 mg = 1 tab, PO, TID, PRN Anxiety, 0 Refill(s) Ana Lovell FLUoxetine 40 mg oral capsule 2017-11-17 02:50:00 Yes 40 mg = 1 cap, PO, QPM, 0 Refill(s) Sandra Shea clopidogrel 75 MG Oral Tablet [Plavix] 2017-11-17 02:50:00 Yes 75 mg = 1 tab, PO, Daily, 0 Refill(s) Espinoza Shea montelukast 10 MG Oral Tablet [Singulair] 2017-11-17 02:50:00 Yes 10 mg = 1 tab, PO, Daily, 0 Refill(s) [place] Shea omeprazole 40 mg oral delayed release capsule 2017-11-17 02:50:0 0 Yes 40 mg = 1 cap, PO, Daily, 0 Refill(s) Sandra Shea 3 ML insulin detemir 100 UNT/ML Prefilled Syringe [Levemir] 2017-11-17 02:49:00 No 32 unit, SUB-Q, BID, 0 Refill (s) Sandra Shea Humalog 100 units/mL 2017-11-17 02:49:00 No 10 unit, SUB-Q, TID- Before Meals, 0 Refill(s) Sandra gonzales gabapentin 300 MG Oral Capsule 2017-11-17 02:49:00 Yes 300 mg = 1 cap, PO, TID, 0 Refill(s) Sandra gonzales Albuterol 0.83 MG/ML Inhalant Solution 2017-11-17 02:49:00 Yes 2.5 mg = 3 mL, NEB, Daily, 0 Refill(s) Svetaor mariam Shea aripiprazole 10 MG Oral Tablet [Abilify] 2017-11-17 02:48:00 Yes 10 mg = 1 tab, PO, Daily, 0 Refill(s) Enio Shea d50 syringe 2017-11-17 01:14:00 No 50 mL, Route: IVP, Dosing Weight 90.909, kg, ONCE, STAT, Start date: 11/16/17 19:14:00 DIESEL MAINTENANCE ELECTRICIAN, Stop date: 11/16/17 19:14:00 DIESEL MAINTENANCE ELECTRICIAN, 25 ml = 12.5 gm [facility] Sodium Chloride 0.9% (Bolus) IV 2017-11-17 01:04:00 No 2,000 mL, 2,000 ml/hr, Infuse Over: 1 hr, Route: IV, ONCE, Priority: STAT, Dosing Weight 90.909 kg, Start date: 11/16/17 19:04:00 DIESEL MAINTENANCE ELECTRICIAN, Stop date: 11/16/17 19:04:00 DIESEL MAINTENANCE ELECTRICIAN [facility] D5W 1/2NS 1,000 mL 2017-11-17 00:52:00 No 1,000 mL, Rate: 100 ml/hr, Infuse over: 10 hr, Route: IV, Total Volume: 1,000, Priority: STAT, Start date: 11/16/17 18:52:00 DIESEL MAINTENANCE ELECTRICIAN, Duration: 30 day, Stop date: 12/16/17 18:51:00 DIESEL MAINTENANCE ELECTRICIAN [facility] amitriptyline (ELAVIL) 25 MG tablet 2011-06-01 00:00:00 Yes 25mg QD Take 25-50 mg by mouth nightly. [facility] buPROPion (WELLBUTRIN SR) 150 MG 12 hr tablet 2011-06-01 00:00:0 0 Yes 150mg QD Take 150 mg by mouth daily. [facility] fLUoxetine (PROZAC) 20 MG capsule 2011-06-01 00:00:00 Yes 20mg QD Take 20 mg by mouth daily. [facility] Acetaminophen Acetaminophen Yes 650 Every 4 Hours as needed for Mild Pain (1-3) Or Fever>100.8 [facility] Ammonium Lactate Ammonium Lactate Yes 1 Twice A Day [facility] Atorvastatin Calcium Atorvastatin Calcium Yes 40 Bedtime [facility] Bupropion Hcl (Wellbutrin Sr) 150 Mg TABLET.ER Bupropi on Hcl (Wellbutrin Sr) 150 Mg TABLET.ER Yes 300 Bedtime [facility] Buspirone Hcl Buspirone Hcl Yes 7.5 Twice A Day [facility] Clonazepam Clonazepam Yes 1 Twice A Day as nee ded for Anxiety [facility] Clopidogrel Bisulfate (Plavix) 75 Mg TABLET Clopidogre l Bisulfate (Plavix) 75 Mg TABLET Yes 75 Daily [facility] Fluticasone/Salmeterol (Advair 100-50 Diskus) 1 Each D ISK.W.DEV Fluticasone/Salmeterol (Advair 100-50 Diskus) 1 Each DISK.W.DEV Yes 1 Twice A Day [facility] Gabapentin Gabapentin Yes 400 Three Times A Day [facility] Hydrocodone Bit/Acetaminophen ([place] 5-325 Tablet) 1 E ach TABLET Hydrocodone Bit/Acetaminophen ([place] 5-325 Tablet) 1 Each TABLET Yes 1 Daily as needed for P [facility] Hydroxyzine Hcl Hydroxyzine Hcl Yes 25 Bedtime as needed for Anxiety [facility] Hydroxyzine Hcl Hydroxyzine Hcl Yes 50 Bedtime as needed for Anxiety [facility] Insulin Detemir (Levemir) 100 Unit/1 Ml VIAL Insulin D etemir (Levemir) 100 Unit/1 Ml VIAL Yes 32 Twice A Day [facility] Insulin Lispro (Humalog) 100 Unit/1 Ml INSULN.PEN Insu rony Lispro (Humalog) 100 Unit/1 Ml INSULN.PEN Yes Three Times Daily With Meals [facility] Lisinopril Lisinopril Yes 2.5 Daily [facility] Loperamide Hcl (Loperamide) 2 Mg TABLET Loperamide Hcl (Nohemy ramide) 2 Mg TABLET Yes 2 Three Times A Day as needed for Diarrhea [facility] Metformin Hcl Metformin Hcl Yes 750 Twice A Day [facility] Metoprolol Succinate Metoprolol Succinate Yes 50 Daily [facility] Mirtazapine (Remeron) 15 Mg TABLET Mirtazapine (Remeron) 15 Mg TABLET Yes 15 Bedtime [facility] Montelukast Sodium (Singulair) 10 Mg TABLET Montelukas t Sodium (Singulair) 10 Mg TABLET Yes 10 Daily [facility] Nicotine (Nicotine Patch) 1 Each PATCH.TD24 Nicotine ( Nicotine Patch) 1 Each PATCH.TD24 Yes 21 Daily [facility] Omeprazole Omeprazole Yes 40 Daily [facility] Ondansetron Hcl (Zofran*) 4 Mg TABLET Ondansetron Hcl (Zofran*) 4 M g TABLET Yes 4 Daily as needed for Nausea [facility] Quetiapine Fumarate (Seroquel) 100 Mg TABLET Quetiapin e Fumarate (Seroquel) 100 Mg TABLET Yes 150 Bedtime [facility] Trazodone Hcl Trazodone Hcl Yes 100 Bedtime [facility] True Plus Gel True Plus Gel Yes 1 As Needed [facility] Tylenol Pm Tylenol Pm Yes 2 Bedtime as needed for Sleep [facility] Fluoxetine Hcl (Prozac) 20 Mg CAPSULE Fluoxetine Hcl (Prozac) 20 Mg CAPSULE 2019-02-22 00:00:00 No 40 Twice A Day [facility] Acetaminophen With Codeine (Tylenol With Codeine #4 Ta blet) 1 Each TABLET Acetaminophen With Codeine (Tylenol With Codeine #4 Tablet) 1 Each TABLET 2019-02-21 00:00:00 No Every 6 Hours as nee ded for Pain [facility] Acetaminophen/Hydrocodone Bitart ([place] 10MG-325MG*) 1 Ea TAB Acetaminophen/Hydrocodone Bitart ([place] 10MG-325MG*) 1 Ea TAB 2019-02-21 00:00:00 No 1 Four Times Daily [facility] Albuterol Sulfate (Proair Hfa Inhaler*) 8.5 Gm INH Alb uterol Sulfate (Proair Hfa Inhaler*) 8.5 Gm INH 2019-02-21 00:00:00 No 108 Da jeniffer [facility] Allopurinol Allopurinol 2019-02-21 00:00:00 No 300 D aily [facility] Aripiprazole (Abilify) 10 Mg TABLET Aripiprazole (Abilify) 10 Mg TABLET 2019-02-21 00:00:00 No 10 Daily [facility] Azithromycin (Z-Curry) 250 Mg TABLET Azithromycin (Z-Curry) 250 Mg T ABLET 2019-02-21 00:00:00 No 250 Use As Directed [facility] Cefdinir (Omnicef) 300 Mg CAPSULE Cefdinir (Omnicef) 300 Mg CAPS ULE 2019-02-21 00:00:00 No 300 Twice A Day [facility] Clonazepam (Klonopin) 1 Mg TABLET Clonazepam (Klonopin) 1 Mg TAB LET 2019-02-21 00:00:00 No 1 Twice A Day as needed for Anxi ety [facility] Fluoxetine Hcl (Prozac) 40 Mg CAPSULE Fluoxetine Hcl (Prozac) 40 Mg CAPSULE 2019-02-21 00:00:00 No 60 Daily [facility] Gabapentin Gabapentin 2019-02-21 00:00:00 No 300 Thr ee Times A Day [facility] Lidocaine (Lidoderm) 700 Mg ADH..PATCH Lidocaine (Lidoderm) 700 Mg ADH..PATCH 2019-02-21 00:00:00 No 1 Daily [facility] Montelukast Sodium (Singulair) 10 Mg TABLET Montelukas t Sodium (Singulair) 10 Mg TABLET 2019-02-21 00:00:00 No 10 Daily [facility] Azithromycin (Z-Curry) 250 Mg TABLET Azithromycin (Z-Curry) 250 Mg T ABLET 2018-02-04 00:00:00 No 250 Use As Directed [facility] Cefdinir (Omnicef) 300 Mg CAPSULE Cefdinir (Omnicef) 300 Mg CAPS ULE 2018-02-04 00:00:00 No 300 Twice A Day [facility] Insuln Asp Prt/Insulin Aspart (Novolog M ix 70-30 Flexpen Syrn) 100 Unit/1 Ml INSULN.PEN Insuln Asp Prt/Insulin Aspart (Novolog M ix 70-30 Flexpen Syrn) 100 Unit/1 Ml INSULN.PEN 2018-02-04 00:00:00 No [facility] Invokana Invokana 2018-02-04 00:00:00 No 300 Daily [facility] Levofloxacin (Levaquin) 500 Mg TABLET Levofloxacin (Levaquin) 50 0 Mg TABLET 2018-02-04 00:00:00 No 500 Daily [facility] Metformin Hcl Metformin Hcl 2018-02-04 00:00:00 No 1000 Twice A Day [facility] Ondansetron (Zofran Odt) 4 Mg TAB.RAPDIS Ondansetron ( Zofran Odt) 4 Mg TAB.RAPDIS 2018-02-04 00:00:00 No 4 Every 6 Hours [facility] Rosuvastatin Calcium (Crestor) 20 Mg TABLET Rosuvastat in Calcium (Crestor) 20 Mg TABLET 2018-02-04 00:00:00 No 20 Daily [facility] Tizanidine Hcl (Zanaflex) 4 Mg TABLET Tizanidine Hcl (Zanaflex) 4 Mg TABLET 2018-02-04 00:00:00 No 4 Every 8 Hours as nee ded for Prn [facility] Varenicline Tartrate (Chantix) 0.5 Mg TABLET Varenicli ne Tartrate (Chantix) 0.5 Mg TABLET 2018-02-04 00:00:00 No .5 Twice A Day [facility] Zolpidem Tartrate (Ambien) 10 Mg TABLET Zolpidem Tartrate (A mbien) 10 Mg TABLET 2018-02-04 00:00:00 No 10 Bedtime as needed for Sleep [facility] Linagliptin (Tradjenta) 5 Mg TABLET Linagliptin (Tradjenta) 5 Mg TABLET 2017-08-17 00:00:00 No 5 Daily [facility] Lisinopril Lisinopril 2017-08-17 00:00:00 No 10 Zeinab ly [facility] Sertraline Hcl (Zoloft) 100 Mg TABLET Sertraline Hcl (Zoloft) 10 0 Mg TABLET 2017-08-17 00:00:00 No 100 Daily [facility] Alprazolam (Xanax Xr) 2 Mg TAB.ER.24H Alprazolam (Xanax Xr) 2 Mg TAB.ER.24H 2015-09-12 00:00:00 No 2 Three Times A Day [facility] Bupropion Hcl (Wellbutrin) 100 Mg TABLET Bupropion Hcl (Wellbutrin) 100 Mg TABLET 2015-09-12 00:00:00 No 100 Daily [facility] Carisoprodol (Soma) 350 Mg TABLET Carisoprodol (Soma) 350 Mg TAB LET 2015-09-12 00:00:00 No 350 Three Times A Day [facility] Immunizations Ordered Immunization Name Filled Immunization Name Date Status Comments Source Tdap 2018-11-12 00:00:00 Completed [facility] Vital Name Observation Time Observation Value Comments Source Weight 2020-05-24 22:34:00 239 [lb_av] [facility] BMI (Body Mass Index) 2020-05-24 22:34:00 41.0 kg/m2 [facility] Systolic blood pressure 2020-03-01 08:00:00 136 mm[Hg] [facility] Diastolic blood pressure 2020-03-01 08:00:00 65 mm[Hg] [facility] Heart rate 2020-03-01 08:00:00 84 /min [facility] Body temperature 2020-03-01 08:00:00 36.78 Le [facility] Respiratory rate 2020-03-01 08:00:00 18 /min [facility] Body weight Measured 2020-03-01 08:00:00 107.049 kg [facility] BMI 2020-03-01 08:00:00 40.51 kg/m2 [facility] Oxygen saturation in Arterial blood by Pulse oximetry 03-01 08:00:00 99 [facility] 2020-02-28 09:23:00 [address] [facility] Body Temperature 2020-02-28 07:32:00 93.7 [degF] [facility] Weight 2020-02-28 00:45:00 239 [lb_av] [facility] BMI (Body Mass Index) 2020-02-28 00:45:00 41.0 kg/m2 [facility] Heart Rate 2019-02-28 18:46:00 [facility] Systolic (mm Hg) 2019-02-28 18:46:00 [place] [facility] Diastolic (mm Hg) 2019-02-28 18:46:00 [facility] Temperature Oral (F) 2019-02-28 16:33:00 98.6 F [facility] Heart Rate 2019-02-28 16:33:00 [facility] Respitory Rate 2019-02-28 16:33:00 [facility] Systolic (mm Hg) 2019-02-28 16:33:00 [place] [facility] Diastolic (mm Hg) 2019-02-28 16:33:00 [facility] Respitory Rate 2019-02-28 12:52:00 [facility] Systolic (mm Hg) 2019-02-28 12:26:00 [place] [facility] Diastolic (mm Hg) 2019-02-28 12:26:00 [facility] Heart Rate 2019-02-28 12:26:00 [facility] Temperature Oral (F) 2019-02-28 12:26:00 98.2 F [facility] Temperature Oral (F) 2019-02-28 09:27:00 98.4 F [facility] Respitory Rate 2019-02-28 09:27:00 [facility] Weight 2019-02-28 00:46:00 [facility] BMI Calculated 2019-02-28 00:46:00 [facility] Height 2019-02-28 00:46:00 162.56 cm [facility] Height 2019-02-27 18:52:00 162.56 cm [facility] BMI Calculated 2019-02-27 18:52:00 [facility] Weight 2019-02-27 18:52:00 [facility] Systolic (mm Hg) 2019-02-06 21:00:00 [place] [facility] Diastolic (mm Hg) 2019-02-06 21:00:00 [facility] Respitory Rate 2019-02-06 21:00:00 [facility] Temperature Oral (F) 2019-02-06 20:38:00 98.4 F [facility] Systolic (mm Hg) 2019-02-06 19:00:00 [place] [facility] Diastolic (mm Hg) 2019-02-06 19:00:00 [facility] Respitory Rate 2019-02-06 19:00:00 [facility] Systolic (mm Hg) 2019-02-06 17:04:00 [place] [facility] Diastolic (mm Hg) 2019-02-06 17:04:00 [facility] Respitory Rate 2019-02-06 17:04:00 [facility] Temperature Oral (F) 2019-02-06 16:46:00 98.2 F [facility] Temperature Oral (F) 2019-02-06 12:44:00 98.2 F [facility] Height 2019-02-03 04:43:00 162.56 cm [facility] Weight 2019-02-03 04:43:00 [facility] BMI Calculated 2019-02-03 04:43:00 [facility] Height 2019-02-02 21:15:00 157.48 cm [facility] BMI Calculated 2019-02-02 21:15:00 [facility] Weight 2019-02-02 21:15:00 [facility] Heart Rate 2019-02-02 21:15:00 [facility] Systolic (mm Hg) 2018-07-17 16:46:00 [place] [facility] Diastolic (mm Hg) 2018-07-17 16:46:00 [facility] Respitory Rate 2018-07-17 16:46:00 [facility] Heart Rate 2018-07-17 16:46:00 [facility] Heart Rate 2018-07-17 13:00:00 [facility] Systolic (mm Hg) 2018-07-17 13:00:00 [place] [facility] Diastolic (mm Hg) 2018-07-17 13:00:00 [facility] Respitory Rate 2018-07-17 13:00:00 [facility] BMI Calculated 2018-07-14 15:34:00 [facility] Weight 2018-07-14 15:34:00 [facility] Height 2018-07-14 15:34:00 162.56 cm [facility] Respitory Rate 2018-06-12 22:03:00 [facility] Systolic (mm Hg) 2018-06-12 22:03:00 [place] [facility] Diastolic (mm Hg) 2018-06-12 22:03:00 [facility] Heart Rate 2018-06-12 22:03:00 [facility] Temperature Oral (F) 2018-06-12 22:03:00 98.3 F [facility] Temperature Oral (F) 2018-06-12 17:46:00 98.8 F [facility] Heart Rate 2018-06-12 17:46:00 [facility] Respitory Rate 2018-06-12 17:46:00 [facility] Systolic (mm Hg) 2018-06-12 17:46:00 [place] [facility] Diastolic (mm Hg) 2018-06-12 17:46:00 [facility] Heart Rate 2018-06-12 12:38:00 [facility] Respitory Rate 2018-06-12 12:38:00 [facility] Systolic (mm Hg) 2018-06-12 12:38:00 [place] [facility] Diastolic (mm Hg) 2018-06-12 12:38:00 [facility] Temperature Oral (F) 2018-06-12 12:38:00 98.4 F [facility] BMI Calculated 2018-06-12 00:20:00 [facility] Height 2018-06-12 00:20:00 162.56 cm [facility] Weight 2018-06-12 00:20:00 [facility] Weight 2018-06-11 19:15:00 [facility] Height 2018-06-11 19:15:00 162.56 cm [facility] BMI Calculated 2018-06-11 19:15:00 [facility] Systolic (mm Hg) 2017-11-17 20:00:00 [place] [facility] Diastolic (mm Hg) 2017-11-17 20:00:00 [facility] Respitory Rate 2017-11-17 20:00:00 [facility] Systolic (mm Hg) 2017-11-17 19:00:00 [place] [facility] Diastolic (mm Hg) 2017-11-17 19:00:00 [facility] Respitory Rate 2017-11-17 19:00:00 [facility] Respitory Rate 2017-11-17 18:00:00 Svetaori hugo [facility] Systolic (mm Hg) 2017-11-17 18:00:00 [place] kim [facility] Diastolic (mm Hg) 2017-11-17 18:00:00 [facility] Temperature Oral (F) 2017-11-17 17:29:00 98.4 F [facility] Temperature Oral (F) 2017-11-17 14:03:00 98.6 F [facility] Temperature Oral (F) 2017-11-17 10:00:00 98.1 F [facility] Height 2017-11-17 08:38:00 162.56 cm [facility] Weight 2017-11-17 08:38:00 [facility] BMI Calculated 2017-11-17 08:38:00 [facility] Height 2017-11-17 00:48:00 162.56 cm [facility] Heart Rate 2017-11-17 00:48:00 [facility] BMI Calculated 2017-11-17 00:48:00 [facility] Weight 2017-11-17 00:48:[address] [facility] Procedure Date / Time Performed Performing Clinician [facility] e REPORT OF PROCEDURE - ENDOSCOPY SCAN 2020-03-07 12:30:57 Pro vider, Default Scanning [facility] RHYTHM STRIP - SCAN 2020-03-03 11:11:15 Provider, Default Scanni ng [facility] POCT-GLUCOSE METER 2020-03-01 08:10:00 Anne-Marie Sandoval [facility] PHOSPHORUS 2020-03-01 04:18:00 Ruiz Garcia [facility] BASIC METABOLIC PANEL (7) 2020-03-01 04:18:00 Anne-Marie Sandoval [facility] CBC (HEMOGRAM ONLY) 2020-03-01 03:26:00 Anne-Marie Sandoval [facility] VANCOMYCIN LEVEL, TROUGH 2020-02-29 22:38:00 Clem Harrell [facility] POCT-GLUCOSE METER 2020-02-29 21:15:00 Anne-Marie Sandoval [facility] POCT-GLUCOSE METER 2020-02-29 18:14:00 [facility] PO[facility]-GLUCOSE METER 2020-02-29 13:03:00 Himascarlet [facility] POCT-GLUCOSE METER 2020-02-29 08:06:00 Jaime [facility] PHOSPHORUS 2020-02-29 04:16:00 Radha [facility] CBC (HEMOGRAM ONLY) 2020-02-29 04:16:00 Jaime [facility] BASIC METABOLIC PANEL (7) 2020-02-29 04:16:00 Anne-Marie Sandoval [facility] LEGIONELLA URINE ANTIGEN 2020-02-28 18:05:00 Franklin Villarreal [facility] URINALYSIS W/ REFLEX URINE CULTURE 2020-02-28 18:05:00 Radha [facility] BASIC METABOLIC PANEL (7) 2020-02-28 16:03:00 Radha [facility] CREATINE KINASE (CK) 2020-02-28 16:03:00 Franklin Villarreal [facility] POCT-GLUCOSE METER 2020-02-28 11:29:00 Tobias Vang [facility] XR CHEST 1 VIEW PORTABLE/BEDSIDE 2020-02-28 10:20:00 Radha [facility] AMMONIA 2020-02-28 09:37:00 Radha [facility] BLOOD CULTURE 2020-02-28 09:36:00 Franklin Villarreal [facility] SARS-COV2/RT-PCR ([facility]) 2020-02-28 09:18:00 Radha [facility] RESPIRATORY PANEL [facility] 2020-02-28 09:18:00 Ruiz Garica [facility] RAPID INFLUENZA A&B SCREEN 2020-02-28 09:18:00 Summer Garcia [facility] BLOOD CULTURE 2020-02-28 09:09:00 Franklin Villarreal [facility] TROPONIN I 2020-02-28 09:01:00 Radha [facility] TSH/FREE T4 IF INDICATED 2020-02-28 09:01:00 Radha [facility] CORTISOL 2020-02-28 09:01:00 Radha [facility] MRSA SCREEN 2020-02-28 08:53:00 Radha [facility] B-TYPE NATRIURETIC FACTOR (BNP) 2020-02-28 08:53:00 Latia Garcia [facility] FERRITIN 2020-02-28 08:53:00 Franklin Villarreal Doyle [facility] IRON, TIBC, % SAT. (WITHOUT FERRITIN) 2020-02-28 08:53:00 Franklin Kemp [facility] RETICULOCYTE COUNT 2020-02-28 08:53:00 Franklin Villarreal [facility] VITAMIN B12 AND FOLATE 2020-02-28 08:53:00 Franklin Villarreal [facility] LACTIC ACID, VENOUS 2020-02-28 08:53:00 Radha [facility] BLOOD GAS, VENOUS 2020-02-28 08:53:00 Radha [facility] HEMOGLOBIN A1C 2020-02-28 08:53:00 Radha [facility] CBC W/PLT COUNT & AUTO DIFFERENTIAL 2020-02-28 08:53:00 Fredl randall [facility] COMPREHENSIVE METABOLIC PANEL 2020-02-28 08:52:00 Maksim Garcia [facility] MAGNESIUM 2020-02-28 08:52:00 Radha [facility] PROTHROMBIN TIME/INR 2020-02-28 08:52:00 Radha [facility] APTT 2020-02-28 08:52:00 Ruiz Garcia [facility] FIBRINOGEN 2020-02-28 08:52:[facility] 2020-02-28 08:52:00 Ruiz Garcia [facility] Computed tomography of brain without radiopaque contrast 2020-01 00:00:00 [facility] Computed tomography of chest without contrast 2020-02-28 00:00:0 0 [facility] Computed tomography of brain without radiopaque contrast 202 00:00:00 DO GUTIERREZ [facility] Abdominal hysterectomy [facility] Eye incision [facility] Foot joint operations [facility] Placement of stent [facility] Procedure [facility] Plan of Care Planned Activity Planned Date Details Comments Source Future Scheduled Test 2020-07-01 00:00:00 INFLUENZA VACCINE [code = INFLUENZA VACCINE] [facility] Scheduled Test 2012 00:00:00 BREAST CANCER SCRE ENING [code = BREAST CANCER SCREENING] [facility] Scheduled Test 2012 00:00:00 COLONOSCOPY SCREEN ING [code = COLONOSCOPY SCREENING] [facility] Scheduled Test 2012 00:00:00 SHINGLES VACCINES (#1) [code = SHINGLES VACCINES (#1)] [facility] Scheduled Test 1983 00:00:00 Screening for sushila gnant neoplasm of cervix (procedure) [code = 760991877] [facility] Instructions Sprains - Wrist [facility] Encounters Start Date/Time End Date/Time Encounter Type Admission Type [facility] Care Department Encounter ID Source 2020-05-24 22:34:00 2020-05-24 23:55:00 Departed Emergency Room 1 JUAN CARLOS ALBERT [facility] [id number] ALISIA Padilla [facility] 2020-02-27 22:51:00 2020-02-28 07:10:00 Departed Emergency Room 1 OD SCHROEDER [facility] [id number] [facility] 2019-12-23 16:37:00 2019-12-23 22:40:00 Departed Emergency Room 1 SHANNON GONZALEZ [facility] [id number] [facility] 2019-12-22 16:31:00 2019-12-22 21:46:00 Departed Emergency Room 1 SHANNON GONZALEZ [facility] [id number] [facility] 2019-10-10 20:58:00 2019-10-11 02:08:00 Departed Emergency Room 1 MARYLU VALDOVINOS [facility] [id number] [facility] 2019-07-03 15:01:00 2019-07-03 19:27:00 Departed Emergency Room 1 JUAN CARLOS CAT [facility] [id number] [facility] 2019-06-19 13:06:00 2019-06-19 15:45:00 Departed Emergency Room [facility] [id number] [facility] 2019-06-03 21:51:00 2019-06-03 23:45:00 Departed Emergency Room [facility] [id number] [facility] 2019-03-15 15:49:00 2019-03-15 18:14:00 Departed Emergency Room [address] [facility] [id number] [facility] 2019-03-07 13:20:00 2019-03-07 16:24:[address] [facility] [id number] [facility] 2019-02-27 13:42:36 2019-02-28 16:20:00 Outpatient Holly Ruiz [facility] [id number] 2019-02-27 17:37:00 2019-02-27 17:37:00 Outpatient E [facility]SE CAR [address] [facility] 2019-02-26 14:30:00 2019-02-26 16:29:00 Departed Emergency Room [address] [facility] [id number] [facility] 2019-02-21 20:01:00 2019-02-23 17:50:00 Discharged Inpatient (obs) [address] [facility] [id number] [facility] 2019-02-02 16:01:00 2019-02-06 17:20:00 Outpatient Jermaine Gupta [facility] [id number] 2019-02-02 18:39:00 2019-02-02 16:01:00 Inpatient E [facility] MED [address] [place] [id number] 2018-12-22 21:11:00 2018-12-22 23:27:00 Departed Emergency Room 1 VALDOVINOS, MARYLU [facility] [id number] [facility] 2018-10-05 23:12:00 2018-10-06 12:56:00 Discharged Inpatient (obs) [address] [facility] [id number] [facility] 2018-07-17 07:38:00 2018-07-17 23:59:00 Outpatient José Miguel Samuel [facility] [id number] 2018-06-11 14:13:00 2018-06-12 18:14:00 Outpatient Alverto Sepulveda [facility] [id number] 2018-06-05 15:32:00 2018-06-05 21:08:00 Departed Emergency Room [address] [facility] [id number] [facility] 2018-04-14 22:17:00 2018-04-14 22:31:[address] [facility] [id number] [facility] 2018-04-14 22:17:00 2018-04-14 22:31:[address] [facility] [id number] [facility] 2018-04-06 20:24:00 2018-04-06 23:06:00 Departed Emergency Room [address] [facility] [id number] [facility] 2018-04-06 15:48:00 2018-04-06 20:05:00 Departed Emergency Room [address] [facility] [id number] [facility] 2018-02-11 21:03:00 2018-02-12 00:05:[address] [facility] [id number] [facility] 2018-02-03 14:12:00 2018-02-04 16:56:00 Discharged Inpatient (obs) ER LOLA BOUCHER [facility] [id number] [facility] 2017-11-16 18:36:00 2017-11-17 15:45:00 [facility] [id number] 2017-11-06 12:21:00 2017-11-06 18:28:00 Departed Emergency Room ER FIDEL HALEIAN [facility] [id number] [facility] 2017-11-05 13:17:00 2017-11-05 13:17:00 Registered Clinic CORRIE IVEY [facility] [id number] [facility] 2017-10-17 04:51:00 2017-10-17 04:51:[address] [facility] [id number] [facility] 2017-09-30 04:24:00 2017-10-03 16:54:00 Discharged Inpatient ER BONIFACIO MARYLU [facility] [id number] [facility] 2017-08-16 17:46:00 2017-08-18 14:47:00 Discharged Inpatient ER LOLA BOUCHER [facility] [id number] [facility] 2017-07-22 17:49:00 2017-07-22 21:50:00 Departed Emergency Room ER JACIEL BECKER [facility] [id number] [facility] 2017-07-15 16:27:00 2017-07-15 18:55:00 Departed Emergency Room ER SIOBHAN PORTER [facility] [id number] [facility] 2016-12-09 09:53:00 2016-12-09 23:59:00 Outpatient BrentCarrington [facility] [id number] 2015-12-22 11:23:00 2015-12-22 23:59:00 Outpatient Susan Coy [facility] [id number] 2015-06-24 13:47:00 2015-06-24 23:59:00 Outpatient RochaHomer [facility] [id number] Results Test Description Test Time Test Comments Results Result Comments Source CT PELVIS WO 2020-06-13 17:12:00 [facility] [address] [place] [address] Patient Name: STEPHANIE CAMERON MR #: [id number] : 1960 Age/Sex: 60/F Req #: [id number] Adm Physician: Ordered by: JUAN CARLOS ALBERT DO Report #: [id number] Location: ER Room/Bed: Procedure: [id number] CT/CT PELVIS WO Exam Date: 06/13/20 Exam Time: 1616 REPORT STATUS: Signed CT of the pelvis, with contrast. History: Fall. Comparison: CT abdomen/pelvis from 10/05/2018. Technique: Multidetector CT scanning of pelvis was performed without the use of contrast material. Coronal and sagittal multiplanar reformations were obtai vasyl. RADIATION DOSE: Total DLP: 1500.59 mGy*cm Dose modulation, iterative reconstruction, and/or weight based adjustment of the mA/kV was utilized to reduce the radiation dose to as low as reasonably achievable. FINDINGS: The osseous structures demonstrate no evidence for acute fracture or dislocation. There are degenerative changes of the lumbosacral spine and bilateral hips. A sclerotic focus is identified in the left acetabulum likely reflecting a bone island. No destructive osseous lesion is identified. The visualized loops of small and large bowel demonstrate no evidence of obstruction or inflammation. There is distention of the urinary bladder measuring up to 17.8 cm. The uterus is surgically absent. No abnormal adnexal masses are identified. Atherosclerotic calcifications noted within the distal abdominal aorta and iliac vessels. Tiny fat-containing umbilical hernia noted. The extraperitoneal soft tissues are unremarkable. IMPRESSION: No evidence for acute traumatic injury within the pelvis. Marked distention of the urinary bladder. Recommend correlation for urinary retention. Signed by: Dr. Saul Crane MD on 06/13/2020 5:19 PM Dictated By: SAUL CRANE MD 18 Transcribed By: SCOTT on 06/13/201718 COPY TO: JUAN CARLOS ALBERT DO CT CHEST WO 2020-06-13 17:07:00 [place] [address] Patient Name: STEPHANIE CAMERON MR #: [id number] : 1960 Age/Sex: 60/F Req #: [id number] Adm Physician: Ordered by: JUAN CARLOS ALBERT DO Report #: [id number] Location: ER Room/Bed: Procedure: [id number] CT/CT CHEST WO Exam Date: 06/13/20 Exam Time: 1616 REPORT STATUS: Signed CT of the chest, without contrast. History: Fall. Comparison: CT chest without contrast from 02/28/2020. Technique: Multidetector CT scanning of the chest was performed from the level of the apices to the upper abdomen without contrast. Coronal and sagittal multiplanar reformations were obtained. RADIATION DOSE: Total DLP: 1500.59 mGy*cm Dose modulation, iterative reconstruction, and/or weight based adjustment of the mA/kV was utilized to reduce the radiation dose to as low as reasonably achievable. Findings: The thyroid and remaining visualized structures within the base of the neck demonstrate no significant a bnormalities. The thoracic aorta is normal in course and caliber without evidence for traumatic injury. The main pulmonary artery is normal in caliber. Atherosclerotic calcifications within the coronary arteries. The heart is not enlarged. No abnormal pericardial fluid is present. There is no abnormal axillary, mediastinal, or hilar lymph node enlargement. The trachea and proximal airways are patent. Patchy airspace opacities noted on the prior examination have near completely resolved resolved. Examination of the lungs demonstrate no evidence for consolidation, pneumothorax, mass, suspicious nodule, or pleural effusion. Limited views of the upper abdomen demonstrate no significant abnormalities. The osseous structures demonstrate no evidence for acute fracture or destructive process. The extrathoracic soft tissues are unremarkable. IMPRESSION: No evidence for acute traumatic injury within the chest. Signed by: Dr. Saul Crane MD on 06/13/2020 5:12 PM Dictated By: SAUL CRANE MD 11 Transcribed By: SCOTT on 06/13/201711 COPY TO: JUAN CARLOS ALBERT DO CT CERVICAL SPINE 2020-06-13 16:55:00 [place] [address] Patient Name: STEPHANIE CAMERON MR #: [id number] : 1960 Age/Sex: 60/F Req #: [id number] Adm Physician: Ordered by: JUAN CARLOS ALBERT DO Report #: [id number] Location: ER Room/Bed: Procedure: [id number] CT/CT CERVICAL SPINE WO Exam Date: 06/13/20 Exam Time: 1616 REPORT STATUS: Signed History: Fall Comparison studies: None Technique: Axial images were obtained through the cervical region.. Coronal and sagittal images reconstructed from the axial data. Dose modulation, iterative reconstruction, and/or weight based adjustment of the mA/kV was utilized to reduce the radiation dose to as low as reasonably achievable. Intravenous contrast: None Findings: Fractures: None. Soft tissues: No gross abnormalities. Atlantoaxial articulation: Intact. Alignment: Normal lordosis. No scoliosis. Cervicomedullary junction: No abnormalities. The foramen magnum is patent. Vertebrae: Bones are mildly demineralized. No infection or neoplasm. Degenerative changes: Mildly degenerated disc at C6-C7. Patent spinal canal and foramina. IMPRESSION: 1. No acute abnormalities. 2. Specifically, no fractures or subluxations. 3. Cannot adequately evaluate for ligament, spinal cord and or vascular abnormalities. 4. Mildly degenerated disc at T6-7. Signed by: Dr. Carole Pendleton M.D. on 06/13/2020 4:57 PM Dictated By: CAROLE PENDLETON MD, MD 56 Transcribed By: SCOTT on 06/13/201656 COPY TO: JUAN CARLOS ALBERT DO CT BRAIN WO 2020-06-13 16:48:00 [place] [address] Patient Name: STEPHANIE CAMERON MR #: [id number] : 1960 Age/Sex: 60/F Req #: [id number] Adm Physician: Ordered by: JUAN CARLOS ALBERT DO Report #: [id number] Location: ER Room/Bed: Procedure: [id number] CT/CT BRAIN WO Exam Date: 06/13/20 Exam Time: 1616 REPORT STATUS: Signed History: fall loc Comparison studies: None Technique: Axial images were obtained from the skull base to the vertex. Coronal and sagittal images reconstructed from the axial data. Dose modulation, iterative reconstruction, and/or weight based adjustment of the mA/kV was utilized to reduce the radiation dose to as low as reasonably achievable. Intravenous contrast: None Findings: Scalp/skull: An acute left parietal scalp hematoma is not associated with subcutaneous emphysema or with hyperdense foreign bodies. No underlying fractures. Extra-axial spaces: Incidental 3 cm right parietal sulci. Otherwise, no masses. No additional fluid collections. Brain sulci: Appropriate for age Ventricles: Normal in size and configuration. No hydrocephalus. Parenchyma: Describe hypodensities in the supratentorial white matter are small vessel ischemic changes. No masses, hemorrhage, acute or chronic cortical vascular insults. Sellar/suprasellar region: No abnormalities. Craniocervical junction: Patent foramen magnum. No Chiari one malformation. Incidental findings: Subtle calcifications in the carotid siphons. 5 mm thick hyperdense collection along the posterior aspect of the left globe, un changed compared to the head CT on 02-28-20. Impression: 1. Acute left parietal scalp hematoma. No fracture. 2. No intracranial abnormalities. 3. No intracranial changes when compared to 02/28/2020. 4. Persistent hyperdense collection along the posterior aspect of the left lobe (retinal detachment?) Chronic findings: 1. Mild generalized volume loss. 2. Mild supratentorial white matter small vessel ischemic changes. Signed by: Dr. Carole Pendleton M.D. on 06/13/2020 4:55 PM Dictated By: CAROLE PENDLETON MD, MD 54 Transcribed By: SCOTT on 06/13/201654 COPY TO: JUAN CARLOS ALBERT DO WRIST COMPLETE RIGHT 2020-05-24 23:33:00 [facility] [address] [place] [address] Patient Name: STEPHANIE CAMERON MR #: [id number] : 1960 Age/Sex: 60/F Req #: [id number] Adm Physician: Ordered by: JUAN CARLOS ALBERT DO Report #: [id number] Location: ER Room/Bed: Procedure: [id number] DX/WRIST COMPLETE RIGHT Exam Date: 05/24/20 Exam Time: 2314 REPORT STATUS: Signed WRIST COMPLETE RIGHT - 3 views HISTORY: Pain status post fall. COMPARISON: None available. FINDINGS: Bones: No acute displaced fracture. Osseous alignment is within normal limits. Joints: The joint spaces are well-maintained. Soft tissues: Radial artery calcification. IMPRESSION: No acute osseous abnormality. Signed by: Dr. Dennise Loredo M.D. on 05/24/2020 11:35 PM Dictated By: CHRISTINA LOREDO MD, MD 34 Transcribed By: SCOTT on 05/24/202334 COPY TO: JUAN CARLOS ALBERT DO Blood Culture - Routine (Right Venipuncture) 2020-03-04 11:0 0:00 Test Item Result (test code = 6463-4) No growth in 5 days [id number]:00:00* Test Item Value Reference Range Interpretation Comments CULTURE (BEAKER) (test code = 1095) No growth in 5 days BLOOD [id number] 11:00:00* Test Item Value Reference Range Interpretation Comments CULTURE (BEAKER) (test code = 1095) No growth in 5 days MRSA [id number] 10:22:00* Test Item Value Reference Range Interpretation Comments Result (test code = 6463-4) No [id number] 10:22:00* Test Item Value Reference Range Interpretation Comments CULTURE (BEAKER) (test code = 1095) No MRSA isolated POC-Glucose [id number] 08:21:00* Test Item Value Reference Range Interpretation Comments POC-Glucose Meter (test code = 1538) 166 mg/dL 70-110 H : TESTED AT [address], [address]: Grievance Coordinator/Probation Worker ID = [id number] for RUSLAN CRUZ Lab Interpretation (test code = 79467-3) Abnormal [facility] [id number] 08:21:00* Test Item Value Reference Range Interpretation Comments POC-GLUCOSE METER (BEAKER) (test code = 1538) 166 mg/dL 70-110 H : TESTED AT [address], [address]: Grievance Coordinator/Probation Worker ID = [id number] for RUSLAN CRUZ Basic Metabolic [id number] 04:49:00* Test Item Value Reference Range Interpretation Comments Sodium (test code = 2951-2) 139 meq/L 136-145 Potassium (test code = 2823-3) 4.6 meq/L 3.5-5.1 Chloride (test code = 2075-0) 101 meq/L 98-107 CO2 (test code = 8-9) 33 meq/L 22-29 H BUN (test code = 3094-0) 13 mg/dL 7-21 Creatinine (test code = 2160-0) 0.87 mg/dL 0.57-1.25 Glucose (test code = 2345-7) 159 mg/dL 70-105 H Calcium (test code = 81205-5) 8.7 mg/dL 8.4-10.2 EGFR (test code = 57985-7) 67 mL/min/1.73 sq m ESTIMATED GFR IS NOT ACCURATE CREATININE CLEARANCE IN PREDICTING GLOMERULAR FILTRATION RATE. ESTIMATED GFR IS NOT APPLICABLE FOR DIALYSIS PATIENTS. OSCAR (test code = OSCAR) Grievance Coordinator ID - PIAYA L Lab Interpretation (test code = 19150-6) [facility] 04:49:00* Test Item Value Reference Range Interpretation Comments Phosphorus (test code = 2777-1) 3.4 mg/dL 2.3-4.7 OSCAR (test code = OSCAR) Grievance Coordinator ID Nasir LLOYD L Lab Interpretation (test code = 22778-0) Normal [facility]2020-05-02 04:49:00* Test Item Value Reference Range Interpretation Comments PHOSPHORUS (BEAKER) (test code = 604) 3.4 mg/dL 2.3-4.7 Grievance Coordinator ID Nasir LLOYD LBASIC METABOLIC [id number] 04:49:00* Test Item Value Reference Range Interpretation Comments SODIUM (BEAKER) (test code = 381) 139 meq/L 136-145 POTASSIUM (BEAKER) (test code = 379) 4.6 meq/L 3.5-5.1 CHLORIDE (BEAKER) (test code = 382) 101 meq/L 98-107 CO2 (BEAKER) (test code = 355) 33 meq/L 22-29 H BLOOD UREA NITROGEN (BEAKER) (test code = 354) 13 mg/dL 7-21 CREATININE (BEAKER) (test code = 358) 0.87 mg/dL 0.57-1.25 GLUCOSE RANDOM (BEAKER) (test code = 652) 159 mg/dL 70-105 H CALCIUM (BEAKER) (test code = 697) 8.7 mg/dL 8.4-10.2 EGFR (BEAKER) (test code = 1092) 67 mL/min/1.73 sq m ESTIMATED GFR IS NOT ACCURATE CREATININE CLEARANCE IN PREDICTING GLOMERULAR FILTRATION RATE. ESTIMATED GFR IS NOT APPLICABLE FOR DIALYSIS PATIENTS. Grievance Coordinator GEMA LLOYD LCBC (Hemogram only)2020-03-01 03:54:00* Test Item Value Reference Range Interpretation Comments WBC (test code = 6690-2) 8.7 3.5- 10.5 K/L RBC (test code = 789-8) 3.96 3.93- 5.22 M/L MCHC (test code = 786-4) 28.2 32.2- 35.5 GM/DL L Hematocrit (test code = 4544-3) 30.5 % 34.1-44.9 L MCV (test code = 787-2) 77.0 fL 79.4-94.8 L MCH (test code = 785-6) 21.7 pg 25.6-32.2 L RDW (test code = 788-0) 22.1 % 11.7-14.4 H Platelets (test code = 777-3) 341 150- 450 K/CU MM MPV (test code = 18321-7) 8.6 fL 9.4-12.3 L nRBC (test code = 413) 0 0- 0 /100 WBC Lab Interpretation (test code = 64921-5) Abnormal [facility] (HEMOGRAM ONLY)2020-03-01 03:54:00* Test Item Value Reference Range Interpretation Comments WHITE BLOOD CELL COUNT (BEAKER) (test code = 775) 8.7 K/ L 3.5- 10.5 RED BLOOD CELL COUNT (BEAKER) (test code = 761) 3.96 M/ L 3.93-5 .22 HEMOGLOBIN (BEAKER) (test code = 410) 8.6 GM/DL 11.2-15.7 L HEMATOCRIT (BEAKER) (test code = 411) 30.5 % 34.1-44.9 L MEAN CORPUSCULAR VOLUME (BEAKER) (test code = 753) 77.0 fL 79. 4-94.8 L MEAN CORPUSCULAR HEMOGLOBIN (BEAKER) (test code = 751) 21.7 pg 25.6-32.2 L MEAN CORPUSCULAR HEMOGLOBIN CONC (BEAKER) (test code = 752) 28.2 GM/DL 32.2-35.5 L RED CELL DISTRIBUTION WIDTH (BEAKER) (test code = 412) 22.1 % 11.7-14.4 H PLATELET COUNT (BEAKER) (test code = 756) 341 K/CU MM 150-450 MEAN PLATELET VOLUME (BEAKER) (test code = 754) 8.6 fL 9.4-12 .3 L NUCLEATED RED BLOOD CELLS (BEAKER) (test code = 413) 0 /100 WBC 0 -0 Vancomycin level, [id number] 23:22:00* Test Item Value Reference Range Interpretation Comments Vancomycin Tr (test code = 4092-3) 15.7 ug/mL 10-20 OSCAR (test code = OSCAR) Grievance Coordinator ID - DB Lab Interpretation (test code = 46636-3) Normal [facility], [id number] 23:22:00* Test Item Value Reference Range Interpretation Comments VANCOMYCIN TROUGH (BEAKER) (test code = 522) 15.7 ug/mL 10.0-20.0 Grievance Coordinator ID - DBPOCT-GLUCOSE [id number] 21:27:00* Test Item Value Reference Range Interpretation Comments POC-GLUCOSE METER (BEAKER) (test code = 1538) 197 mg/dL 70-110 H : TESTED AT [address], [address]: Grievance Coordinator/Probation Worker ID = [id number] for Mairmar Duffy POCT-GLUCOSE [id number] 18:25:00* Test Item Value Reference Range Interpretation Comments POC-GLUCOSE METER (BEAKER) (test code = 1538) 179 mg/dL 70-110 H : TESTED AT [address], [address]: Grievance Coordinator/Probation Worker ID = [id number] for Wilbert, Candice POCT-GLUCOSE [id number] 13:14:00* Test Item Value Reference Range Interpretation Comments POC-GLUCOSE METER (BEAKER) (test code = 1538) 146 mg/dL 70-110 H : TESTED AT [address], [address]: Grievance Coordinator/Probation Worker ID = [id number] for Wilbert, Candice POCT-GLUCOSE [id number] 08:17:00* Test Item Value Reference Range Interpretation Comments POC-GLUCOSE METER (BEAKER) (test code = 1538) 159 mg/dL 70-110 H : TESTED AT [address], [address]: Grievance Coordinator/Probation Worker ID = [id number] for Wilbert, Candice [id number] 05:00:00* Test Item Value Reference Range Interpretation Comments PHOSPHORUS (BEAKER) (test code = 604) 3.4 mg/dL 2.3-4.7 Grievance Coordinator ID - BSBASIC METABOLIC [id number] 05:00:00* Test Item Value Reference Range Interpretation Comments SODIUM (BEAKER) (test code = 381) 137 meq/L 136-145 POTASSIUM (BEAKER) (test code = 379) 4.9 meq/L 3.5-5.1 CHLORIDE (BEAKER) (test code = 382) 101 meq/L 98-107 CO2 (BEAKER) (test code = 355) 31 meq/L 22-29 H BLOOD UREA NITROGEN (BEAKER) (test code = 354) 15 mg/dL 7-21 CREATININE (BEAKER) (test code = 358) 0.91 mg/dL 0.57-1.25 GLUCOSE RANDOM (BEAKER) (test code = 652) 166 mg/dL 70-105 H CALCIUM (BEAKER) (test code = 697) 8.6 mg/dL 8.4-10.2 EGFR (BEAKER) (test code = 1092) 64 mL/min/1.73 sq m ESTIMATED GFR IS NOT ACCURATE CREATININE CLEARANCE IN PREDICTING GLOMERULAR FILTRATION RATE. ESTIMATED GFR IS NOT APPLICABLE FOR DIALYSIS PATIENTS. Grievance Coordinator ID - [id number] (HEMOGRAM ONLY)2020-02-29 04:47:00* Test Item Value Reference Range Interpretation Comments WHITE BLOOD CELL COUNT (BEAKER) (test code = 775) 9.4 K/ L 3.5- 10.5 RED BLOOD CELL COUNT (BEAKER) (test code = 761) 3.75 M/ L 3.93-5 .22 L HEMOGLOBIN (BEAKER) (test code = 410) 8.3 GM/DL 11.2-15.7 L HEMATOCRIT (BEAKER) (test code = 411) 28.8 % 34.1-44.9 L MEAN CORPUSCULAR VOLUME (BEAKER) (test code = 753) 76.8 fL 79. 4-94.8 L MEAN CORPUSCULAR HEMOGLOBIN (BEAKER) (test code = 751) 22.1 pg 25.6-32.2 L MEAN CORPUSCULAR HEMOGLOBIN CONC (BEAKER) (test code = 752) 28.8 GM/DL 32.2-35.5 L RED CELL DISTRIBUTION WIDTH (BEAKER) (test code = 412) 22.1 % 11.7-14.4 H PLATELET COUNT (BEAKER) (test code = 756) 358 K/CU MM 150-450 MEAN PLATELET VOLUME (BEAKER) (test code = 754) 8.8 fL 9.4-12 .3 L NUCLEATED RED BLOOD CELLS (BEAKER) (test code = 413) 0 /100 WBC 0 -0 Strep pneumoniae [id number] 20:30:00* Test Item Value Reference Range Interpretation Comments Strep pneumoniae Antigen (test code = 86459-6) Presump tive negative for pneumococcal meningitis - see comment Presumptive negative for pneumococcal pneumonia - see comment, Presumptive negative for pneumococcal meningitis OSCAR (test code = OSCAR) Presumptive negative for pne umococcal meningitis. Infection due to S. pneumoniae cannot be ruled out since the antigen present in the sample may be below the detection limit of the test. Lab Interpretation (test code = 54322-4) [facility] [id number] 20:30:00* Test Item Value Reference Range Interpretation Comments STREP PNEUMONIAE ANTIGEN (BEAKER) (test code = 1615) P resumptive negative for pneumococcal meningitis - see comment Presumptive negative for pneumococcal pneumonia - see commen Presumptive negative for pneumococcal meningitis. Infection due to S. pneumoniae cannot be ruled out since the antigen present in the sample may be below the de tection limit of the test.Legionella antigen, [id number] 20:17:00* Test Item Value Reference Range Interpretation Comments Legionella Urine Antigen (test code = 83206-4) Negative - see comme nt Negative for L. pneumophila serogroup 1 antigen, suggesting no recent or current infection with this serogroup. Legionellosis cannot be ruled out since other serogroups and species may cause disease. [facility], [id number] 20:17:00* Test Item Value Reference Range Interpretation Comments L. PNEUMOPHILA SEROGP 1 UR AG (BEAKER) (test code = 11 56) Negative - see comment Negative for L. pneu mophila serogroup 1 antigen, suggesting no recent or current infection with this serogroup. Legionellosis cannot be ruled out since other serogroups and species may cause disease. Urinalysis w/Microscopic + Reflex to [id number] 18:25:00* Test Item Value Reference Range Interpretation Comments Color, UA (test code = 5778-6) Light Yellow Clarity, UA (test code = 5767-9) Clear Specific [place], UA (test code = 5811-5) 1.007 1.001-1.035 pH, UA (test code = 5803-2) 7.5 5.0-8.0 Protein, UA (test code = 29952-7) Negative Negative Glucose, UA (test code = 365) Negative Negative Ketones, UA (test code = 2514-8) Negative Negative Bilirubin, UA (test code = 57870-0) Negative Negative Blood, UA (test code = 91692-4) Negative Negative Nitrite, UA (test code = 5802-4) Negative Negative Leukocytes, UA (test code = 5799-2) Negative Negative Urobilinogen, UA (test code = 45778-6) 0.2 mg/dL 0.2-1 RBC, UA (test code = 07749-3) <1 /HPF WBC, UA (test code = 5821-4) <1 /HPF Squam Epithel, UA (test code = 30133-8) <1 /HPF Specimen Source (test code = 2795) OSCAR (test code = OSCAR) Grievance Coordinator ID - [auto][facility]ance Coordinator [facility] [id number] 18:25:00* Test Item Value Reference Range Interpretation Comments COLOR (BEAKER) (test code = 470) Light Yellow CLARITY (BEAKER) (test code = 469) Clear SPECIFIC GRAVITY UA (BEAKER) (test code = 468) 1.007 1.001-1 .035 PH UA (BEAKER) (test code = 467) 7.5 5.0-8.0 PROTEIN UA (BEAKER) (test code = 464) Negative Negative GLUCOSE UA (BEAKER) (test code = 365) Negative Negative KETONES UA (BEAKER) (test code = 371) Negative Negative BILIRUBIN UA (BEAKER) (test code = 462) Negative Negative BLOOD UA (BEAKER) (test code = 461) Negative Negative NITRITE UA (BEAKER) (test code = 465) Negative Negative LEUKOCYTE ESTERASE UA (BEAKER) (test code = 466) Negative Negat rhianna UROBILINOGEN UA (BEAKER) (test code = 463) 0.2 mg/dL 0.2-1.0 RBC UA (BEAKER) (test code = 519) < /HPF WBC UA (BEAKER) (test code = 520) < /HPF SQUAMOUS EPITHELIAL (BEAKER) (test code = 516) < /HPF SOURCE(BEAKER) (test code = 2795) Grievance Coordinator ID - [auto]Grievance Coordinator ID - techCreatine Kinase (CK)2020-02-28 17:56:00* Test Item Value Reference Range Interpretation Comments Total CK (test code = 2157-6) 257 U/L 29-200 H OSCAR (test code = OSCAR) Grievance Coordinator ID - BS Lab Interpretation (test code = 96060-2) Abnormal [facility] HospitalCREATINE KINASE (CK)2020-02-28 17:56:00* Test Item Value Reference Range Interpretation Comments CREATINE KINASE TOTAL (BEAKER) (test code = 380) 257 U/L 29-20 0 H Grievance Coordinator ID - BSBASIC METABOLIC [id number] 16:29:00* Test Item Value Reference Range Interpretation Comments SODIUM (BEAKER) (test code = 381) 138 meq/L 136-145 POTASSIUM (BEAKER) (test code = 379) 5.4 meq/L 3.5-5.1 H CHLORIDE (BEAKER) (test code = 382) 100 meq/L 98-107 CO2 (BEAKER) (test code = 355) 35 meq/L 22-29 H BLOOD UREA NITROGEN (BEAKER) (test code = 354) 14 mg/dL 7-21 CREATININE (BEAKER) (test code = 358) 0.82 mg/dL 0.57-1.25 GLUCOSE RANDOM (BEAKER) (test code = 652) 124 mg/dL 70-105 H CALCIUM (BEAKER) (test code = 697) 8.7 mg/dL 8.4-10.2 EGFR (BEAKER) (test code = 1092) 72 mL/min/1.73 sq m ESTIMATED GFR IS NOT ACCURATE CREATININE CLEARANCE IN PREDICTING GLOMERULAR FILTRATION RATE. ESTIMATED GFR IS NOT APPLICABLE FOR DIALYSIS PATIENTS. Grievance Coordinator ID - BSHemoglobin [id number] 11:56:00* Test Item Value Reference Range Interpretation Comments Hemoglobin A1C (test code = 4548-4) 7.8 % 4.3-6.1 H Lab Interpretation (test code = 33114-9) Abnormal [facility] HospitalRes[facility] Panel [id number] 11:56:00* Test Item Value Reference Range Interpretation Comments Human Metapneumovirus (test code = 87117-0) Not detected Not detected, Equivocal Rhinovirus (test code = 67151-1) Not detected Not detected, Equivoc al INFLUENZA A (NO SUBTYPE) (test code = 80812-6) Not detected Not detected, Equivocal Influenza A subtype H1 (test code = 05567-8) Influenza A Subtype H3 (test code = 66916-3) Influenza A Subtype H1-2009 (test code = 69345-0) Influenza B (test code = 59446-3) Not detected Not detected, Equivo latricia Respiratory Syncytial Virus (test code = 08144-1) Not detect ed Not detected, Equivocal Parainfluenza Virus 1 (test code = 83513-3) Not detected Not detected, Equivocal Parainfluenza Virus 2 (test code = 86821-6) Not detected Not detected, Equivocal Parainfluenza virus 3 (test code = 37962-8) Not detected Not detected, Equivocal Parainfluenza Virus 4 (test code = 18147-6) Not detected Not detected, Equivocal Adenovirus (test code = 52467-6) Not detected Not detected, Equivoc al Coronavirus 229E (test code = 07972-9) Not detected Not detected, E quivocal Coronavirus HKU1 (test code = 41527-0) Not detected Not detected, E quivocal Coronavirus NL63 (test code = 32922-8) Not detected Not detected, E quivocal Coronavirus OC43 (test code = 06564-4) Not detected Not detected, E quivocal Bordetella Pertussis (test code = 42776-1) Not detected Not d etected, Equivocal Chlamydophila Pneumoniae (test code = 20569-7) Not detected Not detected, Equivocal Mycoplasma Pneumoniae (test code = 85640-2) Not detected Not detected, Equivocal OSCAR (test code = OSCAR) Other viruses and bacteria n ot targeted by this PCR panel cannot be excluded; therefore clinical correlation and follow up of serology, culture results, and other molecular studies is required. The results are not intended to be used as the sole means for clinical diagnosis or patient management decisions. This sample was tested at the [facility] Molecular Diagnostics Laboratory using the SportmaniacsArray Respiratory Panel. It is FDA cleared and has been verified and approved by the [facility] Molecular Diagnostics [facility] for clinical use on nasopharyngeal swab specimens. The performance of the FilmArra y RP has not been established in individuals who received influenza vaccine. Recent administration of a nasal influenza vaccine may cause false positive results for Influenza A and/orInfluenza B. [facility] [id number] 11:56:00* Test Item Value Reference Range Interpretation Comments HUMAN METAPNEUMOVIRUS (BEAKER) (test code = 2683) Not detect ed Not detected, Equivocal RHINOVIRUS (BEAKER) (test code = 2684) Not detected Not detected, E quivocal INFLUENZA A (BEAKER) (test code = 2685) Not detected Not detected, Equivocal INFLUENZA A (NO SUBTYPE) (test code = 3606) INFLUENZA A SUBTYPE H1 (BEAKER) (test code = 2686) INFLUENZA A SUBTYPE H3 (BEAKER) (test code = 2687) INFLUENZA A SUBTYPE H1-2009 (BEAKER) (test code = 3198) INFLUENZA B (BEAKER) (test code = 2688) Not detected Not detected, Equivocal RESPIRATORY SYNCYTIAL VIRUS (BEAKER) (test code = 3199) Not detected Not detected, Equivocal PARAINFLUENZA VIRUS 1 (BEAKER) (test code = 2691) Not detect ed Not detected, Equivocal PARAINFLUENZA VIRUS 2 (BEAKER) (test code = 2692) Not detect ed Not detected, Equivocal PARAINFLUENZA VIRUS 3 (BEAKER) (test code = 2693) Not detect ed Not detected, Equivocal PARAINFLUENZA VIRUS 4 (BEAKER) (test code = 3200) Not detect ed Not detected, Equivocal ADENOVIRUS (BEAKER) (test code = 2694) Not detected Not detected, E quivocal CORONAVIRUS 229E (BEAKER) (test code = 3201) Not detected Not detected, Equivocal CORONAVIRUS HKU1 (BEAKER) (test code = 3202) Not detected Not detected, Equivocal CORONAVIRUS NL63 (BEAKER) (test code = 3203) Not detected Not detected, Equivocal CORONAVIRUS OC43 (BEAKER) (test code = 3204) Not detected Not detected, Equivocal BORDETELLA PERTUSSIS (BEAKER) (test code = 3205) Not detecte d Not detected, Equivocal CHLAMYDOPHILA PNEUMONIAE (BEAKER) (test code = 3206) Not det ected Not detected, Equivocal MYCOPLASMA PNEUMONIAE (BEAKER) (test code = 3207) Not detect ed Not detected, Equivocal Other viruses and bacteria not targeted by this PCR panel cannot be excluded; th erefore clinical correlation and follow up of serology, culture results, and oth er molecular studies is required. The results are not intended to be used as the sole means for clinical diagnosis or patient management decisions. This sample was tested at the [facility] Molecular Diagnostics Laboratory using the [email or web address] FilmA rray Respiratory Panel. It is FDA cleared and has been verified and approved by the [facility] Molecular Diagnostics Laboratory for clinical use on nasopharyngeal sw ab specimens.The performance of the FilmArray RP has not been established in ind ividuals who received influenza vaccine. Recent administration of a nasal influ arnie vaccine may cause false positive results for Influenza A and/orInfluenza B. HEMOGLOBIN [id number] 11:56:00* Test Item Value Reference Range Interpretation Comments HEMOGLOBIN A1C (BEAKER) (test code = 368) 7.8 % 4.3-6.1 H POCT-GLUCOSE [id number] 11:42:00* Test Item Value Reference Range Interpretation Comments POC-GLUCOSE METER (BEAKER) (test code = 1538) 174 mg/dL 70-110 H : TESTED AT [facility] [address] [place] [address], [address]: Grievance Coordinator/Probation Worker ID = [id number] for FRANTZ BRANCH Rapid Influenza A&B [id number] 11:27:00* Test Item Value Reference Range Interpretation Comments Rapid Influenza A Antigen (test code = 49426-6) Negative Negative, Inconclusive Rapid influenza B Antigen (test code = 31335-0) Negative Negative, Inconclusive Lab Interpretation (test code = 25269-4) Normal [facility] HospitalRAPID INFLUENZA A&B [id number] 11:27:00* Test Item Value Reference Range Interpretation Comments RAPID INFLUENZA A AG (BEAKER) (test code = 1622) Negative Negative, Inconclusive RAPID INFLUENZA B AG (BEAKER) (test code = 1623) Negative Negative, Inconclusive [id number] 10:52:00* Test Item Value Reference Range Interpretation Comments Cortisol, Total (test code = 2755) 6.9 ug/dL 3.7-19.4 OSCAR (test code = OSCAR) Grievance Coordinator ID - AAHAMID Lab Interpretation (test code = 14631-2) Normal [facility] HospitalCORTISOL2020-04-30 10:52:00* Test Item Value Reference Range Interpretation Comments CORTISOL, TOTAL (KATERINE) (test code = 2755) 6.9 ug/dL 3.7-19.4 Grievance Coordinator ID - AAHAMJACQUI-CoV2/RT-PCR ([facility])2020-02-28 10:45:00* Test Item Value Reference Range Interpretation Comments SARS-COV2/RT-PCR (test code = 33603-6) Not Detected Not Detected, N egative SARS-COV-2 PERFORMING LAB (test code = 07167-2) [facility] OSCAR (test code = OSCAR) Negative results do not prec lude SARS-CoV-2 infection and should not be used as the sole basis for patient management decisions. Negative results must be combined with clinical observations, patient history, and epidemiological information. A false negative result may occur if a specimen is improperly collected, transported or handled. The limit of detection for this assay is 250 copies/mL. This SARS CoV-2 test is a rapid, real-time RT-PCR test intended for the qualitative detection of nucleic acid from SARS-CoV-2 in a nasopharyngeal swab specimen collected from individuals suspected of COVID-19 by their healthcare provider. This test has not been Food and Drug Administration (FDA) cleared or approved and has been authorized by FDA under an Emergency Use Authorization (EUA). This EUA will be effective until the declaration that circumstances exist justifying the authorization of the emergency use of in vitro diagnostic tests for detection and/or diagnosis of COVID-19 is terminated under Section 564(b)(2) of the Act or the EUA is revoked under Section 564(g) of the Act. Fact Sheet for Healthcare Providers:https://www.[employer]/Documents/Xpert%20Xpress%20SARS%20CoV-2/Fact%2 0Sheets/422-8113%06KSSW-SYC-6%20HEALTHCARE%20PROVIDERS%20FACT%20SHEET.pdf Fact Sheet for Healthcare Patients:https://www.[employer] Content/Documents/Xpert%20Xpress%20SARS%20CoV-2/Fact%20 Sheets/238-1006%98VKAG-CMK-4%20PATIENT%20FACT%20SHEET.pdf Performing Laboratory:[place] [address], [place] [address] [place], [place] [address]ARS-COV2/RT-PCR ([facility])2020-02-28 10:45:00* Test Item Value Reference Range Interpretation Comments SARS-COV2/RT-PCR (test code = 2341791) Not Detected Not Detected, N egative SARS-COV-2 PERFORMING LAB (test code = 3999277) [facility] Negative results do not preclude SARS-CoV-2 infection and should not be used as the sole basis for patient management decisions. Negative results must be combin ed with clinical observations, patient history, and epidemiological information. A false negative result may occur if a specimen is improperly collected, transp orted or handled.The limit of detection for this assay is 250 copies/mL.This [facility] CoV-2 test is a rapid, real-time RT-PCR test intended for the qualitative dete ction of nucleic acid from SARS-CoV-2 in a nasopharyngeal swab specimen collecte d from individuals suspected of COVID-19 by their healthcare provider.This test has not been Food and Drug Administration (FDA) cleared or approved and has been authorized by FDA under an Emergency Use Authorization (EUA). This EUA will be effective until the declaration that circumstances exist justifying the authoriz ation of the emergency use of in vitro diagnostic tests for detection and/or manjinder gnosis of COVID-19 is terminated under Section 564(b)(2) of the Act or the EUA i s revoked under Section 564(g) of the Act.Fact Sheet for Healthcare Providers:ht tps://www.[employer]/Documents/Xpert%20Xpress%20SARS%20CoV-2/Fact%20Sheets/302- 5262%68JIEH-OHQ-2%20HEALTHCARE%20PROVIDERS%20FACT%20SHEET.pdfFact Sheet for Heal thcare Patients:https://www.[employer] Content/Documents/Xpert%20Xpress%20SARS%20CoV-2/ Fact%20Sheets/302-2671%98AVGG-QFM-1%20PATIENT%20FACT%20SHEET.pdfPerforming Labor atory:[facility], [place] [address]RHX, CHEST, 1 VIEW, NON [id number] 10:38:00Reason for exam:->SOBFINAL REPORT RAD, CHEST, 1 VIEW, NON DEPT INDICATION: SOB COMPARISON: None FINDINGS: Portable frontal view of the chest. IMPRESSION: Limited by exclusion of the left costophrenic sulcus.Support Lines: None Lungs and pleura: Basilar interstitial disease may reflect subsegmental atelectasis, atypical infection or developing edema in the appropriate clinical context. No pneum othorax.Heart and mediastinum: Unremarkable contours.Additional findings: None. Signed: JR Tucker Robert MDReport Verified Date/Time: 02/28/2020 10:38: 15 Reading Location: [facility] Radiology Reading Room Electronically sign ed by: OLIVA TUCKER on 02/28/2020 10:38 AM XR chest 1 view portable / [id number] 10:38:00Interface, External Ris In - 02/28/2020 10:40 AM CDTFINAL REPORT RAD, CHEST, 1 VIEW, NON DEPT INDICATION: SOB COMPARISON: None FINDINGS: Portable frontal view of the chest. IMPRESSION: Limited by exclusion of the left costophrenic sulcus.Support Lines: None Lungs and pleura: Basilar interstitial disease may reflect subsegmental atelectasis, atypical infection or developing edema in the appropriate clinical context. No pneumothorax.Heart and mediastinum: Unremarkable contours.Additional findings: None. Signed: JR Tucker Robert MDReport Verified Date/Time: 02/28/2020 10:38:15 Reading Location: [facility] Radiology Reading Room [facility] HospitalFerritin2020-[facility] 10:16:00* Test Item Value Reference Range Interpretation Comments Ferritin (test code = 2276-4) 6.73 ng/mL 5-275 OSCAR (test code = OSCAR) Grievance Coordinator ID - [place] Lab Interpretation (test code = 53910-0) Normal [facility] HospitalVitamin B12 and [id number] 10:16:00* Test Item Value Reference Range Interpretation Comments Vitamin B12 (test code = 2132-9) 382 pg/mL 213-816 Folate (test code = 2284-8) 4.10 ng/mL >=7.00 L OSCAR (test code = OSCAR) Grievance Coordinator ID - [place] Lab Interpretation (test code = 86757-6) Abnormal [facility] HospitalFERRITIN2020-04-30 10:16:00* Test Item Value Reference Range Interpretation Comments FERRITIN (BEAKER) (test code = 361) 6.73 ng/mL 5.00-275.00 Grievance Coordinator ID - LAVITAMIN B12 AND [id number] 10:16:00* Test Item Value Reference Range Interpretation Comments VITAMIN B12 (BEAKER) (test code = 774) 382 pg/mL 213-816 FOLATE (BEAKER) (test code = 362) 4.10 ng/mL >=7.00 L Grievance Coordinator ID - LATSH/Free T4 If [id number] 10:02:00* Test Item Value Reference Range Interpretation Comments TSH (test code = 62500-0) 0.364 0.350- 4.940 uIU/mL OSCAR (test code = OSCAR) Grievance Coordinator ID - [place] Lab Interpretation (test code = 45019-2) Normal [facility] HospitalTSH/FREE T4 IF [id number] 10:02:00* Test Item Value Reference Range Interpretation Comments THYROID STIMULATING HORMONE (BEAKER) (test code = 772) 0.364 uIU /mL 0.350-4.940 Grievance Coordinator ID - QHYavrmvkmtvfqt7329-86-92 09:59:00* Test Item Value Reference Range Interpretation Comments Procalcitonin (test code = 05768-5) <0.05 <0.05 ng/mL OSCAR (test code = OSCAR) SEPSIS RISK (ng/mL)Low: 0.05-0.50Intermediate: 0.51-2.00High: >=2.01 Lab Interpretation (test code = 83662-1) Normal [facility] HospitalPROCALCITONIN2020-04-30 09:59:00* Test Item Value Reference Range Interpretation Comments PROCALCITONIN (BEAKER) (test code = 3036) < ng/mL <0.05 SEPSIS RISK (ng/mL)Low: 0.05-0.50Intermediate: 0.51-2.00High: > =[id number] 09:54:00* Test Item Value Reference Range Interpretation Comments Ammonia (test code = 30624-8) 34 18- 72 mol/L Specimen slightly hemolyzed OSCAR (test code = OSCAR) Grievance Coordinator ID - AAHAMID Lab Interpretation (test code = 01812-5) Normal [facility] HospitalAMMONIA2020-04-30 09:54:00* Test Item Value Reference Range Interpretation Comments AMMONIA (BEAKER) (test code = 348) 34 mol/L 18-72 Specimen slightly hemolyzed Grievance Coordinator ID - AAHAMIDB-type Natriuretic Factor (BNP)2020-02-28 09:49:00* Test Item Value Reference Range Interpretation Comments BNP (test code = 79930-0) 62 pg/mL 0-100 OSCAR (test code = OSCAR) Grievance Coordinator ID - [place] Lab Interpretation (test code = 27842-6) Normal [facility] HospitalB-TYPE NATRIURETIC FACTOR (BNP)2020-02-28 09:49:00 * Test Item Value Reference Range Interpretation Comments B-TYPE NATRIURETIC PEPTIDE (BEAKER) (test code = 700) 62 pg/mL 0-100 Grievance Coordinator ID - LATroponin [id number] 09:47:00* Test Item Value Reference Range Interpretation Comments Troponin I (test code = 25976-0) <0.01 0-0.03 OSCAR (test code = OSCAR) Troponin I (TnI) levels must be interpreted in the context of the presenting symptoms and the clinical findings. Elevated TnI levels indicate myocardial damage, but are not specific for ischemic heart disease. Elevated TnI levels are seen in patients with other cardiac conditions (including myocarditis and congestive heart failure), and slight TnI elevations occur in patients with other conditions, including sepsis, renal failure, acidosis, acute neurological disease, and persistent tachyarrhythmia.Grievance Coordinator ID - [place] Lab Interpretation (test code = 53117-3) Normal [facility] HospitalCBC with platelet count + automated [id number] 09:47:00* Test Item Value Reference Range Interpretation Comments WBC (test code = 6690-2) 13.0 3.5- 10.5 K/L H RBC (test code = 789-8) 3.92 3.93- 5.22 M/L L MCHC (test code = 786-4) 28.0 32.2- 35.5 GM/DL L Hematocrit (test code = 4544-3) 30.0 % 34.1-44.9 L MCV (test code = 787-2) 76.5 fL 79.4-94.8 L MCH (test code = 785-6) 21.4 pg 25.6-32.2 L RDW (test code = 788-0) 22.3 % 11.7-14.4 H Platelets (test code = 777-3) 346 150- 450 K/CU MM MPV (test code = 97781-6) 8.3 fL 9.4-12.3 L nRBC (test code = 413) 0 0- 0 /100 WBC % Neutros (test code = 429) 79 % % Lymphs (test code = 430) 16 % % Monos (test code = 431) 4 % % Eos (test code = 432) 0 % % Baso (test code = 437) 0 % # Neutros (test code = 670) 10.25 1.56- 6.13 K/L H # Lymphs (test code = 414) 2.04 1.18- 3.74 K/L # Monos (test code = 415) 0.54 0.24- 0.36 K/L H # Eos (test code = 416) 0.03 0.04- 0.36 K/L L # Baso (test code = 417) 0.03 0.01- 0.08 K/L Immature Granulocytes-Relative (test code = 2801) 1 % 0-1 Lab Interpretation (test code = 18568-2) Abnormal [facility] [id number] 09:47:00* Test Item Value Reference Range Interpretation Comments TROPONIN I (BEAKER) (test code = 397) < ng/mL 0.00-0.03 Troponin I (TnI) levels must be interpreted in the context of the presenting sym ptoms and the clinical findings. Elevated TnI levels indicate myocardial damage, but are not specific for ischemic heart disease. Elevated TnI levels are seen i n patients with other cardiac conditions (including myocarditis and congestive h eart failure), and slight TnI elevations occur in patients with other conditions , including sepsis, renal failure, acidosis, acute neurological disease, and per sistent tachyarrhythmia.Grievance Coordinator ID - LACBC W/PLT COUNT & AUTO DIFFERENTIAL 2020-02-28 09:47:00* Test Item Value Reference Range Interpretation Comments WHITE BLOOD CELL COUNT (BEAKER) (test code = 775) 13.0 K/ L 3.5- 10.5 H RED BLOOD CELL COUNT (BEAKER) (test code = 761) 3.92 M/ L 3.93-5 .22 L HEMOGLOBIN (BEAKER) (test code = 410) 8.4 GM/DL 11.2-15.7 L HEMATOCRIT (BEAKER) (test code = 411) 30.0 % 34.1-44.9 L MEAN CORPUSCULAR VOLUME (BEAKER) (test code = 753) 76.5 fL 79. 4-94.8 L MEAN CORPUSCULAR HEMOGLOBIN (BEAKER) (test code = 751) 21.4 pg 25.6-32.2 L MEAN CORPUSCULAR HEMOGLOBIN CONC (BEAKER) (test code = 752) 28.0 GM/DL 32.2-35.5 L RED CELL DISTRIBUTION WIDTH (BEAKER) (test code = 412) 22.3 % 11.7-14.4 H PLATELET COUNT (BEAKER) (test code = 756) 346 K/CU MM 150-450 MEAN PLATELET VOLUME (BEAKER) (test code = 754) 8.3 fL 9.4-12 .3 L NUCLEATED RED BLOOD CELLS (BEAKER) (test code = 413) 0 /100 WBC 0 -0 NEUTROPHILS RELATIVE PERCENT (BEAKER) (test code = 429) 79 % LYMPHOCYTES RELATIVE PERCENT (BEAKER) (test code = 430) 16 % MONOCYTES RELATIVE PERCENT (BEAKER) (test code = 431) 4 % EOSINOPHILS RELATIVE PERCENT (BEAKER) (test code = 432) 0 % BASOPHILS RELATIVE PERCENT (BEAKER) (test code = 437) 0 % NEUTROPHILS ABSOLUTE COUNT (BEAKER) (test code = 670) 10.25 K/ L 1.56-6.13 H LYMPHOCYTES ABSOLUTE COUNT (BEAKER) (test code = 414) 2.04 K/ L 1.18-3.74 MONOCYTES ABSOLUTE COUNT (BEAKER) (test code = 415) 0.54 K/ L 0. 24-0.36 H EOSINOPHILS ABSOLUTE COUNT (BEAKER) (test code = 416) 0.03 K/ L 0.04-0.36 L BASOPHILS ABSOLUTE COUNT (BEAKER) (test code = 417) 0.03 K/ L 0. 01-0.08 IMMATURE GRANULOCYTES-RELATIVE PERCENT (BEAKER) (test code = 2801) 1 % 0-1 Iron, TIBC, % sat. (without ferritin)2020-02-28 09:44:00* Test Item Value Reference Range Interpretation Comments Iron (test code = 2498-4) 16.0 ug/dL 40-160 L TIBC (test code = 2500-7) 404 ug/dL 250-450 Iron % Saturation (test code = 2502-3) 4 % 20-55 L OSCAR (test code = OSCAR) Grievance Coordinator ID - [place] Lab Interpretation (test code = 95470-3) [facility], % SAT. (WITHOUT FERRITIN)2020-02-28 09:44:00* Test Item Value Reference Range Interpretation Comments IRON (BEAKER) (test code = 547) 16.0 ug/dL 40.0-160.0 L TOTAL IRON BINDING CAPACITY (BEAKER) (test code = 769) 404 ug/dL 250-450 IRON % SATURATION (2) (BEAKER) (test code = 2590) 4 % 20-5 5 L Grievance Coordinator ID - LAComprehensive metabolic bempv6560-09-44 09:41:00* Test Item Value Reference Range Interpretation Comments Protein, Total (test code = 2885-2) 6.2 6.0- 8.3 gm/dL Albumin (test code = 79261-6) 3.3 g/dL 3.5-5 L Alkaline Phosphatase (test code = 6768-6) 117 U/L 40-150 Total Bilirubin (test code = 1974-2) 0.3 mg/dL 0.2-1.2 Sodium (test code = 2951-2) 137 meq/L 136-145 Potassium (test code = 2823-3) 5.4 meq/L 3.5-5.1 H Chloride (test code = 5-0) 101 meq/L 98-107 CO2 (test code = 2027-9) 31 meq/L 22-29 H BUN (test code = 3094-0) 18 mg/dL 7-21 Creatinine (test code = 2160-0) 0.78 mg/dL 0.57-1.25 Glucose (test code = 2345-7) 135 mg/dL 70-105 H Calcium (test code = 18312-7) 8.6 mg/dL 8.4-10.2 AST (test code = 1920-8) 13 U/L 5-34 ALT (test code = 1742-6) 7 U/L 6-55 EGFR (test code = 64678-2) 76 mL/min/1.73 sq m ESTIMATED GFR IS NOT ACCURATE CREATININE CLEARANCE IN PREDICTING GLOMERULAR FILTRATION RATE. ESTIMATED GFR IS NOT APPLICABLE FOR DIALYSIS PATIENTS. OSCAR (test code = OSCAR) Grievance Coordinator ID - LA Lab Interpretation (test code = 53759-1) Abnormal [facility]2020-04-30 09:41:00* Test Item Value Reference Range Interpretation Comments Magnesium (test code = 23169-5) 1.6 mg/dL 1.6-2.6 OSCAR (test code = OSCAR) Grievance Coordinator ID - LA Lab Interpretation (test code = 73613-1) Normal [facility] [place] [facility]2020-04-30 09:41:00* Test Item Value Reference Range Interpretation Comments MAGNESIUM (BEAKER) (test code = 627) 1.6 mg/dL 1.6-2.6 Grievance Coordinator ID - LACOMPREHENSIVE METABOLIC [id number] 09:41:00* Test Item Value Reference Range Interpretation Comments TOTAL PROTEIN (BEAKER) (test code = 770) 6.2 gm/dL 6.0-8.3 ALBUMIN (BEAKER) (test code = 1145) 3.3 g/dL 3.5-5.0 L ALKALINE PHOSPHATASE (BEAKER) (test code = 346) 117 U/L 40-150 BILIRUBIN TOTAL (BEAKER) (test code = 377) 0.3 mg/dL 0.2-1.2 SODIUM (BEAKER) (test code = 381) 137 meq/L 136-145 POTASSIUM (BEAKER) (test code = 379) 5.4 meq/L 3.5-5.1 H CHLORIDE (BEAKER) (test code = 382) 101 meq/L 98-107 CO2 (BEAKER) (test code = 355) 31 meq/L 22-29 H BLOOD UREA NITROGEN (BEAKER) (test code = 354) 18 mg/dL 7-21 CREATININE (BEAKER) (test code = 358) 0.78 mg/dL 0.57-1.25 GLUCOSE RANDOM (BEAKER) (test code = 652) 135 mg/dL 70-105 H CALCIUM (BEAKER) (test code = 697) 8.6 mg/dL 8.4-10.2 AST (SGOT) (BEAKER) (test code = 353) 13 U/L 5-34 ALT (SGPT) (BEAKER) (test code = 347) 7 U/L 6-55 EGFR (BEAKER) (test code = 1092) 76 mL/min/1.73 sq m ESTIMATED GFR IS NOT ACCURATE CREATININE CLEARANCE IN PREDICTING GLOMERULAR FILTRATION RATE. ESTIMATED GFR IS NOT APPLICABLE FOR DIALYSIS PATIENTS. Grievance Coordinator ID - LALactic acid, [id number] 09:37:00* Test Item Value Reference Range Interpretation Comments Lactate, Venous (test code = 2872) 2.15 mmol/L 0.5-2.2 OSCAR (test code = OSCAR) Grievance Coordinator ID - [place] Lab Interpretation (test code = 93281-5) [facility], [id number] 09:37:00* Test Item Value Reference Range Interpretation Comments LACTATE BLOOD VENOUS (2) (AKER) (test code = 2872) 2.15 mmol/L 0 .50-2.20 Grievance Coordinator ID - LABlood gas, blhqof4191-45-08 09:30:00* Test Item Value Reference Range Interpretation Comments pH, Oren (test code = 2746-6) 7.33 7.32-7.42 pCO2, Oren (test code = 755) 63 41- 51 mmHg H pO2, Oren (test code = 2705-2) 43 25- 40 mmHg H O2 Sat, Oren (test code = 2711-0) 74.9 % 40-70 H HCO3, Oren (test code = 71180-7) 33 mmol/L 21-29 H Base Excess, Oren (test code = 1927-3) 5.4 mmol/L -2-3 H Patient Temperature (test code = 8310-5) 36.5 C FIO2 (test code = 1819) 21 % Lab Interpretation (test code = 49631-5) [facility]normal [facility] 09:30:00* Test Item Value Reference Range Interpretation Comments PTT (test code = 16254-2) 30.6 22.5- 36.0 seconds Lab Interpretation (test code = 17960-7) Normal [facility] HospitalBLOOD GAS, [id number] 09:30:00* Test Item Value Reference Range Interpretation Comments PH VENOUS (BEAKER) (test code = 701) 7.33 7.32-7.42 PCO2 VENOUS (BEAKER) (test code = 755) 63 mmHg 41-51 H PO2 VENOUS (BEAKER) (test code = 702) 43 mmHg 25-40 H O2 SATURATION VENOUS (BEAKER) (test code = 703) 74.9 % 40.0-7 0.0 H HCO3 VENOUS (BEAKER) (test code = 705) 33 mmol/L 21-29 H BASE EXCESS VENOUS (BEAKER) (test code = 704) 5.4 mmol/L -2.0-3.0 H PATIENT TEMPERATURE (BEAKER) (test code = 1818) 36.5 C FIO2 (BEAKER) (test code = 1819) 21.0 % [id number] 09:30:00* Test Item Value Reference Range Interpretation Comments PARTIAL THROMBOPLASTIN TIME (BEAKER) (test code = 760) 30.6 seconds 22.5-36.0 Unmhvyrzaz7036-79-79 09:29:00* Test Item Value Reference Range Interpretation Comments Fibrinogen (test code = 3255-7) 350 mg/dl 225-434 Lab Interpretation (test code = 01651-2) Normal [facility] HospitalProthrombin time/CQL0583-93-07 09:29:00* Test Item Value Reference Range Interpretation Comments Protime (test code = 5902-2) 14.0 11.9- 14.2 seconds INR (test code = 6301-6) 1.1 <=5.9 OSCAR (test code = OSCAR) Effective 03/28/2019: PT Refe rence Range ChangeNew: 11.9- 14.2 Previous: 11.7-14.7 RECOMMENDED COUMADIN/WARFARIN INR THERAPY RANGESSTANDARD DOSE: 2.0-3.0 Includes: PROPHYLAXIS for venous thrombosis, sys temic embolization; TREATMENT for venous thrombosis and/or pulmonary embolus.HIGH RISK: Target INR is 2.5-3.5 for patients wiht mechanical heart valves. Lab Interpretation (test code = 59681-1) Normal [facility] HospitalPROTHROMBIN TIME/[id number] 09:29:00* Test Item Value Reference Range Interpretation Comments PROTIME (BEAKER) (test code = 759) 14.0 seconds 11.9-14.2 INR (BEAKER) (test code = 370) 1.1 <=5.9 Effective 03/28/2019: PT Reference Range ChangeNew: 11.9-14.2 Previous: 11.7-14. 7RECOMMENDED COUMADIN/WARFARIN INR THERAPY RANGESSTANDARD DOSE: 2.0-3.0 Include s: PROPHYLAXIS for venous thrombosis, systemic embolization; TREATMENT for venou s thrombosis and/or pulmonary embolus.HIGH RISK: Target INR is 2.5-3.5 for patie nts wiht mechanical heart valves.PWPOBYSBHZ6226-17-64 09:29:00* Test Item Value Reference Range Interpretation Comments FIBRINOGEN LEVEL (BEAKER) (test code = 658) 350 mg/dl 225-434 Reticulocyte ojsca1294-41-26 09:23:00* Test Item Value Reference Range Interpretation Comments % Retic (test code = 11873-9) 2.2 % 0.5-1.7 H OSCAR (test code = OSCAR) Grievance Coordinator ID - [id number] Lab Interpretation (test code = 18778-3) Abnormal [facility] HospitalRETICULOCYTE [id number] 09:23:00* Test Item Value Reference Range Interpretation Comments RETICULOCYTE COUNT PCT (BEAKER) (test code = 575) 2.2 % 0.5- 1.7 H Grievance Coordinator ID - [id number] blood glucose measurement by glucometer (mass/volume)2020-02-28 06:18:00* Test Item Value Reference Range Interpretation Comments Bedside Glucose (test code = 82710-5) 294 70-120 Meter ID: [id number] Memorial HospitalCapillary blood glucose measurement by glucometer (mass/volume)2020-02-28 06:18:00* Test Item Value Reference Range Interpretation Comments Bedside Glucose (test code = 30063-5) 294 70-120 Meter ID: [id number] Memorial HospitalFluoroscopic procedure less than one hour cauzwkyq9847-96-82 05:40:00* Test Item Value Reference Range Interpretation Comments Venous Blood pH (test code = Venous Blood pH) 7.284 7.35-7.3 8 [facility] HospitalFluoroscopic procedure less than one hour mwakaoki7759-19-62 05:40:00* Test Item Value Reference Range Interpretation Comments Venous Blood Partial Pressure CO2 (test code = Venous Blood Partial Pressure CO2) 71.4 44-48 [facility] HospitalFluoroscopic procedure less than one hour xerswwhr0084-35-30 05:40:00* Test Item Value Reference Range Interpretation Comments Venous Blood HCO3 (test code = Venous Blood HCO3) 33.9 21-2 2 [facility] HospitalFluoroscopic procedure less than one hour gaobasxh4345-87-27 05:40:00* Test Item Value Reference Range Interpretation Comments Venous Blood Total Carbon Dioxide (test code = Venous Blood Total Carbon Dioxide) 36 [facility] HospitalFluoroscopic procedure less than one hour crdgphff8357-96-04 05:40:00* Test Item Value Reference Range Interpretation Comments Venous Blood Base Excess (test code = Venous Blood Base Excess) 7 [facility] HospitalFluoroscopic procedure less than one hour evoxvohw3215-45-61 05:40:00* Test Item Value Reference Range Interpretation Comments FiO2 (test code = FiO2) 36 PT IS ON 4L [facility]Flu[facility] than one hour xzofgzse3099-64-63 05:40:00* Test Item Value Reference Range Interpretation Comments Venous Blood pH (test code = Venous Blood pH) 7.284 7.35-7.3 8 [facility] HospitalFluoroscopic procedure less than one hour swdmznfa4253-14-67 05:40:00* Test Item Value Reference Range Interpretation Comments Venous Blood Partial Pressure CO2 (test code = Venous Blood Partial Pressure CO2) 71.4 44-48 [facility] HospitalFluoroscopic procedure less than one hour ncmpfdlp6329-76-78 05:40:00* Test Item Value Reference Range Interpretation Comments Venous Blood HCO3 (test code = Venous Blood HCO3) 33.9 21-2 2 [facility] HospitalFluoroscopic procedure less than one hour pwpybkrq7007-67-50 05:40:00* Test Item Value Reference Range Interpretation Comments Venous Blood Total Carbon Dioxide (test code = Venous Blood Total Carbon Dioxide) 36 [facility] HospitalFluoroscopic procedure less than one hour lwvaqhdh4874-06-47 05:40:00* Test Item Value Reference Range Interpretation Comments Venous Blood Base Excess (test code = Venous Blood Base Excess) 7 [facility] HospitalFluoroscopic procedure less than one hour nnpeerka1440-97-35 05:40:00* Test Item Value Reference Range Interpretation Comments FiO2 (test code = FiO2) 36 PT IS ON 4L [facility] [id number] 04:53:00 [facility] [address] [place] [address] Patient Name: STEPHANIE CAMERON MR #: [id number] : 1960 Age/Sex: 59/F Req #: [id number] Adm Physician: Ordered by: DO SCHROEDER DO Report #: [id number] Location: ER Room/Bed: Procedure: [id number] CT/CT CHEST WO Exam Date: 02/28/20 Exam Time: 353 REPORT STATUS: Signed EXAM: CT Chest WITHOUT con trast INDICATION: Shortness of breath COMPARISON: None TECHNIQU E: Chest was scanned utilizing a multidetector helical scanner from the lung a pex through the level of the adrenal glands without administration of IV contr ast. Absence of intravenous contrast decreases sensitivity for detection of lymphadenopathy and vascular pathology. Coronal and sagittal reformations were obtained. Routine protocol was performed. IV CONTRAST: None COMPLIC ATIONS: None RADIATION DOSE: Total DLP: 466 mGy*cm Estima anastasia effective dose: (DLP x 0.014 x size factor) mSv CTDIvol has been revi ewed. It is below the limits set by the Radiation Protocol Committee (RPC). Dose modulation, iterative reconstruction, and/or weight based adjustment of the mA/kV was utilized to reduce the radiation dose to as low as reasonably achievable. FINDINGS: LINES/ TUBES: None. LUNGS AND AIRWAYS: Patchy mixed solid and groundglass airspace opacities throughout bot h lungs, most prominent in the lung bases. No pulmonary mass. PLEURA: Tiny bilateral pleural effusions. HEART AND MEDIASTINUM: Normal heart size. No p ericardial effusion. Prominent mediastinal subcentimeter lymph nodes, likely r eactive. Coronary artery calcifications with coronary artery stent. UPPER ABDOMEN: Unremarkable. BONES: The visualized bony thorax is within normal limits. SOFT TISSUES: Unremarkable. IMPRESSION: Patchy airspace d isease throughout both lungs most suggestive of an infectious process. Superim posed atelectasis or aspiration in the lung bases is possible. Signed by: Aris Luz MD on 02/28/2020 4:57 AM Dictated By: ISIAH LUZ MD El ectronically Signed By: ISIAH LUZ MD on 02/28/20456 Transcribed By: VENKATESH RAN on 02/28/20456 COPY TO: OD SCHROEDER DO CT BRAIN WO 2020-02-28 04:32:00 [place] [address] Patient Name: STEPHANIE CAMERON MR #: [id number] : 1960 Age/Sex: 59/F Req #: [id number] Adm Physician: Ordered by: DO SCHROEDER DO Report #: [id number] Location: ER Room/Bed: Procedure: [id number] CT/CT BRAIN WO Exam Date: 02/28/20 Exam Time: 353 REPORT STATUS: Signed History: AMS Comparison studies: None Technique: Axial images were obtained from the skull base to the vertex. Coronal and sagittal reconstructions obtained from the axial data. Dose modulation, iterative reconstruction, and/or weight based adjustmen t of the mA/kV was utilized to reduce the radiation dose to as low as reasonab ly achievable. Findings: The study is limited by motion artifact. Scalp/skull: No abnormalities. No fractures, blastic or lytic lesions. Extra-axial spaces: No masses. No fluid collections. Brain sulci: Alfred ropriate for age. Ventricles: Normal in size and configuration. No hydrocephal us. Parenchyma: No abnormal densities. No masses, hemorrhage, acute o r chronic cortical vascular insults. Sellar/suprasellar region: No abnormal ities Craniocervical junction: Patent foramen magnum. No Chiari one malformat ion. Atherosclerotic calcifications of the carotid siphons IMPRESSION: Limited study by motion artifact. No significant acute abnormalities . Signed by: DR Anmol Clinton M.D. on 02/28/2020 4:42 AM Dictated By: ANMOL GARZA MD 1 COPY TO: ZACHERY SCHROEDER DO Fluoroscopic procedure less than one hour llxrriml5977-92-97 03:30:00* Test Item Value Reference Range Interpretation Comments Coronavirus (PCR) (test code = Coronavirus (PCR)) NOT DETECTED NOTD ETECTED SARS-COV2/RT-PCRNegative results do not preclude SARS-CoV-2 infection and should not be used as the sole basis for patient management decisions. Negative result s must be combined with clinical observations, patient history, and epidemiologi latricia information. A false negative result may occur if a specimen is improperly c ollected, transported or handled.The limit of detection for this assay is 250 co pies/mLThe SARS-CoV-2 test is a rapid, real-time RT-PCR test intended for the qu alitative detection of nucleic acid from SARS-CoV-2 in nasopharyngeal swab speci men collected from individuals suspected of COVID-19 by their healthcare provide r. This test has not been Food and Drug Administration (FDA) cleared or approved and has been authorized by FDA under an Emergency Use Authorization (EUA). This EUA will be effective until the declaration that circumstances exist justifying the authorization of the emergency use of in vitro diagnostic test for detectio n and or diagnosis of COVID-19 is terminated under section 564(b) of the Act, or the the EUA is revoked under 564(g) of the ACT.Testing performed by [address] StreetFluoroscopic procedure less than one hour duration 2020-02-28 03:30:00* Test Item Value Reference Range Interpretation Comments Coronavirus (PCR) (test code = Coronavirus (PCR)) NOT DETECTED NOTD ETECTED SARS-COV2/RT-PCRNegative results do not preclude SARS-CoV-2 infection and should not be used as the sole basis for patient management decisions. Negative result s must be combined with clinical observations, patient history, and epidemiologi latricia information. A false negative result may occur if a specimen is improperly c ollected, transported or handled.The limit of detection for this assay is 250 co pies/mLThe SARS-CoV-2 test is a rapid, real-time RT-PCR test intended for the qu alitative detection of nucleic acid from SARS-CoV-2 in nasopharyngeal swab speci men collected from individuals suspected of COVID-19 by their healthcare provide r. This test has not been Food and Drug Administration (FDA) cleared or approved and has been authorized by FDA under an Emergency Use Authorization (EUA). This EUA will be effective until the declaration that circumstances exist justifying the authorization of the emergency use of in vitro diagnostic test for detectio n and or diagnosis of COVID-19 is terminated under section 564(b) of the Act, or the the EUA is revoked under 564(g) of the ACT.Testing performed by [address] StreetArterial blood pH bxdcqxwzkci0685-90-44 02:50:00* Test Item Value Reference Range Interpretation Comments Arterial Blood pH (test code = 2744-1) 7.25 7.35-7.45 [facility] HospitalpCO2 PsyU5229-88-20 02:50:00* Test Item Value Reference Range Interpretation Comments Arterial Blood Partial Pressure CO2 (test code = 2018-8) 76 35-45 [facility] HospitalArterial blood bicarbonate measurement (moles/volume)2020-02-28 02:50:00* Test Item Value Reference Range Interpretation Comments Arterial Blood HCO3 (test code = 1960-4) 33 22- [facility] HospitalArterial blood base excess by calculation 2020-02-28 02:50:00* Test Item Value Reference Range Interpretation Comments Arterial Blood Base Excess (test code = 1925-7) 6.0 -2-3 [facility] HospitalArterial blood pH xwszgsjdejx9515-06-55 02:50:00* Test Item Value Reference Range Interpretation Comments Arterial Blood pH (test code = 2744-1) 7.25 7.35-7.45 [facility] HospitalpCO2 JyiQ2532-78-53 02:50:00* Test Item Value Reference Range Interpretation Comments Arterial Blood Partial Pressure CO2 (test code = 2018-8) 76 35-45 [facility] HospitalArterial blood bicarbonate measurement (moles/volume)2020-02-28 02:50:00* Test Item Value Reference Range Interpretation Comments Arterial Blood HCO3 (test code = 1960-4) 33 - [facility] HospitalArterial blood base excess by calculation 2020-02-28 02:50:00* Test Item Value Reference Range Interpretation Comments Arterial Blood Base Excess (test code = 1925-7) 6.0 -2-3 [facility] HospitalCHEST SINGLE (PORTABLE)2020-02-28 02:32:00 [place] [address] Patient Name: STEPHANIE CAMERON MR #: [id number] : 1960 Age/Sex: 59/F Req #: [id number] Adm Physician: Ordered by: DO SCHROEDER DO Report #: [id number] Location: ER Room/Bed: Procedure: [id number] DX/CHEST SINGLE (PORTABLE) Exam Date: 02/28/20 Exam Time: 199 REPORT STATUS: Signed EXAMINATION: CHEST SINGLE (PORTABLE) INDICATION: altered mental status 2 2000227 COMPARISON: 12/23/2019 FINDINGS: AP view TUBES and LINES: None. LUNGS: Ill-defined bilateral lower lobe airspace o pacities. No pulmonary edema. PLEURA: No pleural effusion or pneumothorax. HEART AND MEDIASTINUM: The cardiomediastinal silhouette is unremarkable. Fullness of the pulmonary vasculature. BONES AND SOFT TISSUES: No acute osseous lesion. Soft tissues are unremarkable. UPPER ABDOMEN: No free ai r under the diaphragm. IMPRESSION: Bilateral lower lobe airspace dis ease which may reflect a combination of atelectasis, aspiration, pneumonia. Signed by: Isiah Luz MD on 02/28/2020 2:33 AM Dictated By: PAMELA LUZ MD 2 Tr anscribed By: SCOTT on 02/28/20232 COPY TO: DO SCHROEDER DO Urine color tnftkbifaqgug5032-18-27 02:00:00* Test Item Value Reference Range Interpretation Comments Urine Color (test code = 5778-6) YELLOW YELLOW [facility] HospitalUrine rxwepbd8031-30-23 02:00:00* Test Item Value Reference Range Interpretation Comments Urine Clarity (test code = 68147-7) CLEAR CLEAR [facility] gravity of Urine by Test strip 2020-02-28 02:00:00* Test Item Value Reference Range Interpretation Comments Urine Specific [place] (test code = 5811-5) 1.020 1.010-1.02 5 [facility] HospitalUrine pH measurement by automated test jjirz6288-02-93 02:00:00* Test Item Value Reference Range Interpretation Comments Urine pH (test code = 04644-7) 6 5-7 [facility] HospitalUrine leukocyte esterase detection by cwuzaayi5260-37-65 02:00:00* Test Item Value Reference Range Interpretation Comments Urine Leukocyte Esterase (test code = 5799-2) NEGATIVE NEGATIVE [facility] HospitalUrine nitrite rgimlcbcv4879-90-15 02:00:00* Test Item Value Reference Range Interpretation Comments Urine Nitrite (test code = 70786-5) NEGATIVE NEGATIVE [facility] HospitalUrine protein measurement by test strip (mass/volume)2020-02-28 02:00:00* Test Item Value Reference Range Interpretation Comments Urine Protein (test code = 5804-0) 1+ NEGATIVE [facility] HospitalUrine glucose chgkqxtxz7818-87-96 02:00:00* Test Item Value Reference Range Interpretation Comments Urine Glucose (UA) (test code = 2349-9) NEGATIVE NEGATIVE [facility] HospitalUrine ketones detection by automated test gretl9244-47-64 02:00:00* Test Item Value Reference Range Interpretation Comments Urine Ketones (test code = 45547-7) NEGATIVE NEGATIVE [facility] HospitalUrine opiates screening pqrm7203-88-47 02:00:00* Test Item Value Reference Range Interpretation Comments Urine Opiates Screen (test code = 60159-8) NEGATIVE NEGATIVE ALL TESTS PERFORMED MANUALLY ON [employer] TOX/SEE TESTParkland Memorial HospitalBarbiturates screen, ymzuh9623-50-31 02:00:00* Test Item Value Reference Range Interpretation Comments Urine Barbiturates Screen (test code = 953604948) NEGATIVE NEGA TIVE [facility] HospitalUrine phencyclidine detection by screening ygvmum7404-12-59 02:00:00* Test Item Value Reference Range Interpretation Comments Urine Phencyclidine Screen (test code = 97559-0) NEGATIVE NEGAT RHIANNA [facility] HospitalUrine amphetamines detection by screen method > 1000 ng/yN1210-33-10 02:00:00* Test Item Value Reference Range Interpretation Comments Urine Amphetamines Screen (test code = 52448-3) NEGATIVE NEGATI VE [facility] HospitalFluoroscopic procedure less than one hour vhklgwpv8871-18-87 02:00:00* Test Item Value Reference Range Interpretation Comments Urine Methamphetamines Screen (test code = Urine Metha mphetamines Screen) NEGATIVE NEGATIVE [facility] HospitalUrine benzodiazepines detection by screening kkxsob6008-74-44 02:00:00* Test Item Value Reference Range Interpretation Comments Urine Benzodiazepines Screen (test code = 64025-9) NEGATIVE NEG ATIVE [facility] HospitalUrine cocaine measurement (mass/volume) 2020-02-28 02:00:00* Test Item Value Reference Range Interpretation Comments Urine Cocaine Screen (test code = 3398-5) NEGATIVE NEGATIVE [facility] HospitalUrine cannabinoids detection by screening tauwlk6526-56-24 02:00:00* Test Item Value Reference Range Interpretation Comments Urine Cannabinoids Screen (test code = 16319-2) NEGATIVE NEGATI VE THESE RESULTS ARE FOR MEDICAL TREATMENT ONLYTHIS REPORT CONTAINS UNCONFIR MED SCREENING RESULTS*POSITIVE RESULTS WILL BE CONFIRMED BY REFERENCE LAB UPON R EQUEST CUT-OFFDRUG CLASS CONCENTRATION ng/mLAmphetamines 1000Methamphetamines 1000Cocaine 300Opiate 300Phencyc lidine 25Cannabinoid 50Barbiturates 300Benzodiazepine 300Methadone 300[facility] HospitalUrine methadone qbrzgg2569-98-71 02:00:00* Test Item Value Reference Range Interpretation Comments Urine Methadone Screen (test code = 52627-4) NEGATIVE NEGATIVE THESE RESULTS ARE FOR MEDICAL TREATMENT ONLYTHIS REPORT CONTAINS UNCONFIR MED SCREENING RESULTS*POSITIVE RESULTS WILL BE CONFIRMED BY REFERENCE LAB UPON R EQUEST CUT-OFFDRUG CLASS CONCENTRATION ng/mLAmphetamines 1000Methamphetamines 1000Cocaine Metabolite 300Opiate 300Phencyc lidine 25Cannabinoid 50Barbiturates 300Benzodiazepine 300Methadone 300[facility] HospitalUrine urobilinogen measurement by test strip (mass/volume)2020-02-28 02:00:00* Test Item Value Reference Range Interpretation Comments Urine Urobilinogen (test code = 16547-3) 0.2 0.2-1 [facility] HospitalUrine total bilirubin measurement (mass/volume)2020-02-28 02:00:00* Test Item Value Reference Range Interpretation Comments Urine Bilirubin (test code = 1978-6) NEGATIVE NEGATIVE [facility] HospitalUrine erythrocytes tmzwcpdoi2006-08-51 02:00:00* Test Item Value Reference Range Interpretation Comments Urine Blood (test code = 33179-6) NEGATIVE NEGATIVE [facility] HospitalAutomated urine sediment leukocyte count by microscopy (number/high power field)2020-02-28 02:00:00* Test Item Value Reference Range Interpretation Comments Urine WBC (test code = 5821-4) 0-5 0-5 [facility] HospitalErythrocytes detection in urine sediment by light qnvajjzexr7462-11-76 02:00:00* Test Item Value Reference Range Interpretation Comments Urine RBC (test code = 31001-5) 0-5 0-5 [facility] HospitalBacteria detection in urine sediment by light nagrgzupps9081-94-47 02:00:00* Test Item Value Reference Range Interpretation Comments Urine Bacteria (test code = 39029-2) FEW NONE [facility] HospitalEpithelial cells detection in urine sediment by light nzsnlsdylg0827-09-28 02:00:00* Test Item Value Reference Range Interpretation Comments Urine Epithelial Cells (test code = 85094-5) FEW NONE [facility] HospitalHyaline casts detection in urine sediment by light beznxrfwsh0410-82-70 02:00:00* Test Item Value Reference Range Interpretation Comments Urine Hyaline Casts (test code = 28990-4) 2-5 0-1 [facility] HospitalMucus detection in urine sediment by light tyustnazop2629-91-00 02:00:00* Test Item Value Reference Range Interpretation Comments Urine Mucus (test code = 8247-9) FEW RARE [facility] HospitalFluoroscopic procedure less than one hour uhsvxpbp1783-09-78 02:00:00* Test Item Value Reference Range Interpretation Comments Lactic Acid Level (test code = Lactic Acid Level) 3.6 0.5- 2.0 Results repeated and called to DO SCHROEDER DO at 0248 on 02/28/20 by MDCapsule. Read back and verified.[facility] HospitalBlood culture 2020-02-28 02:00:00* Test Item Value Reference Range Interpretation Comments Blood Culture (test code = 34854139) NO GROWTH AFTER 5 DAYS, FINAL REPORT [facility] HospitalUrine color htgmjmzqxorkp0143-29-34 02:00:00* Test Item Value Reference Range Interpretation Comments Urine Color (test code = 5778-6) YELLOW YELLOW [facility] HospitalUrine pettinf2206-41-89 02:00:00* Test Item Value Reference Range Interpretation Comments Urine Clarity (test code = 07240-4) CLEAR [facility]AR [facility] by Test strip 2020-02-28 02:00:00* Test Item Value Reference Range Interpretation Comments Urine Specific [place] (test code = 5811-5) 1.020 1.010-1.02 5 [facility] HospitalUrine pH measurement by automated test ogzmg5410-09-98 02:00:00* Test Item Value Reference Range Interpretation Comments Urine pH (test code = 31713-2) 6 5-7 [facility] HospitalUrine leukocyte esterase detection by ejniyiyu3441-46-75 02:00:00* Test Item Value Reference Range Interpretation Comments Urine Leukocyte Esterase (test code = 5799-2) NEGATIVE NEGATIVE [facility] HospitalUrine nitrite krgektofi4904-86-64 02:00:00* Test Item Value Reference Range Interpretation Comments Urine Nitrite (test code = 70266-0) NEGATIVE NEGATIVE [facility] HospitalUrine protein measurement by test strip (mass/volume)2020-02-28 02:00:00* Test Item Value Reference Range Interpretation Comments Urine Protein (test code = 5804-0) 1+ NEGATIVE [facility] HospitalUrine glucose znlpvqhal0209-55-29 02:00:00* Test Item Value Reference Range Interpretation Comments Urine Glucose (UA) (test code = 2349-9) NEGATIVE NEGATIVE [facility] HospitalUrine ketones detection by automated test yysho1375-12-00 02:00:00* Test Item Value Reference Range Interpretation Comments Urine Ketones (test code = 77196-8) NEGATIVE NEGATIVE [facility] HospitalUrine opiates screening leom5475-73-22 02:00:00* Test Item Value Reference Range Interpretation Comments Urine Opiates Screen (test code = 18277-0) NEGATIVE NEGATIVE ALL TESTS PERFORMED MANUALLY ON [employer] TOX/SEE TESTParkland Memorial HospitalBarbiturates screen, ztqlf0489-93-43 02:00:00* Test Item Value Reference Range Interpretation Comments Urine Barbiturates Screen (test code = 241977201) NEGATIVE NEGA TIVE [facility] HospitalUrine phencyclidine detection by screening rlnmne7110-12-01 02:00:00* Test Item Value Reference Range Interpretation Comments Urine Phencyclidine Screen (test code = 64035-1) NEGATIVE NEGAT RHIANNA [facility] HospitalUrine amphetamines detection by screen method > 1000 ng/lZ0611-57-22 02:00:00* Test Item Value Reference Range Interpretation Comments Urine Amphetamines Screen (test code = 57054-1) NEGATIVE NEGATI VE [facility] HospitalFluoroscopic procedure less than one hour bswmzumc7801-85-69 02:00:00* Test Item Value Reference Range Interpretation Comments Urine Methamphetamines Screen (test code = Urine Metha mphetamines Screen) NEGATIVE NEGATIVE [facility] HospitalUrine benzodiazepines detection by screening xfriua3373-25-40 02:00:00* Test Item Value Reference Range Interpretation Comments Urine Benzodiazepines Screen (test code = 45910-7) NEGATIVE NEG ATIVE [facility] HospitalUrine cocaine measurement (mass/volume) 2020-02-28 02:00:00* Test Item Value Reference Range Interpretation Comments Urine Cocaine Screen (test code = 3398-5) NEGATIVE NEGATIVE [facility] HospitalUrine cannabinoids detection by screening lsvkkz6608-29-69 02:00:00* Test Item Value Reference Range Interpretation Comments Urine Cannabinoids Screen (test code = 18122-3) NEGATIVE NEGATI VE THESE RESULTS ARE FOR MEDICAL TREATMENT ONLYTHIS REPORT CONTAINS UNCONFIR MED SCREENING RESULTS*POSITIVE RESULTS WILL BE CONFIRMED BY REFERENCE LAB UPON R EQUEST CUT-OFFDRUG CLASS CONCENTRATION ng/mLAmphetamines 1000Methamphetamines 1000Cocaine 300Opiate 300Phencyc lidine 25Cannabinoid 50Barbiturates 300Benzodiazepine 300Methadone 300[facility]adone oowomw2269-12-19 02:00:00* Test Item Value Reference Range Interpretation Comments Urine Methadone Screen (test code = 86057-9) NEGATIVE NEGATIVE THESE RESULTS ARE FOR MEDICAL TREATMENT ONLYTHIS REPORT CONTAINS UNCONFIR MED SCREENING RESULTS*POSITIVE RESULTS WILL BE CONFIRMED BY REFERENCE LAB UPON R EQUEST CUT-OFFDRUG CLASS CONCENTRATION ng/mLAmphetamines 1000Methamphetamines 1000Cocaine Metabolite 300Opiate 300Phencyc lidine 25Cannabinoid 50Barbiturates 300Benzodiazepine 300Methadone 300[facility] HospitalUrine urobilinogen measurement by test strip (mass/volume)2020-02-28 02:00:00* Test Item Value Reference Range Interpretation Comments Urine Urobilinogen (test code = 85448-8) 0.2 0.2-1 [facility] HospitalUrine total bilirubin measurement (mass/volume)2020-02-28 02:00:00* Test Item Value Reference Range Interpretation Comments Urine Bilirubin (test code = 1978-6) NEGATIVE NEGATIVE [facility] HospitalUrine erythrocytes npupuqcuw4667-10-00 02:00:00* Test Item Value Reference Range Interpretation Comments Urine Blood (test code = 42038-6) NEGATIVE NEGATIVE [facility] HospitalAutomated urine sediment leukocyte count by microscopy (number/high power field)2020-02-28 02:00:00* Test Item Value Reference Range Interpretation Comments Urine WBC (test code = 5821-4) 0-5 0-5 [facility] HospitalErythrocytes detection in urine sediment by light wpemetqllt6973-58-78 02:00:00* Test Item Value Reference Range Interpretation Comments Urine RBC (test code = 34092-2) 0-5 0-5 [facility] HospitalBacteria detection in urine sediment by light qmvoygecnk8372-32-01 02:00:00* Test Item Value Reference Range Interpretation Comments Urine Bacteria (test code = 49114-6) FEW NONE [facility] HospitalEpithelial cells detection in urine sediment by light mrnevrmqzw8728-57-42 02:00:00* Test Item Value Reference Range Interpretation Comments Urine Epithelial Cells (test code = 65225-2) FEW NONE [facility] HospitalHyaline casts detection in urine sediment by light busrdstieq9220-76-74 02:00:00* Test Item Value Reference Range Interpretation Comments Urine Hyaline Casts (test code = 00177-4) 2-5 0-1 [facility] HospitalMucus detection in urine sediment by light jjzjypgobf3364-87-30 02:00:00* Test Item Value Reference Range Interpretation Comments Urine Mucus (test code = 8247-9) FEW RARE [facility] HospitalFluoroscopic procedure less than one hour rzixyeoh6517-70-17 02:00:00* Test Item Value Reference Range Interpretation Comments Lactic Acid Level (test code = Lactic Acid Level) 3.6 0.5- 2.0 Results repeated and called to DO SCHROEDER DO at 0248 on 02/28/20 by MDCapsule. Read back and verified.[facility] HospitalBlood culture 2020-02-28 02:00:00* Test Item Value Reference Range Interpretation Comments Blood Culture (test code = 89944970) NO GROWTH AFTER 5 DAYS, FINAL REPORT [facility] leukocytes automated count (number/volume)2020-02-28 00:48:00* Test Item Value Reference Range Interpretation Comments White Blood Count (test code = 6690-2) 17.06 4.8-10.8 [facility] erythrocytes automated count (number/volume)2020-02-28 00:48:00* Test Item Value Reference Range Interpretation Comments Red Blood Count (test code = 789-8) 4.47 3.6-5.1 [facility] hemoglobin measurement (moles/volume)2020-02-28 00:48:00* Test Item Value Reference Range Interpretation Comments Hemoglobin (test code = 02817-3) 9.7 12.0-16.0 [facility] HospitalAutomated blood hematocrit (volume fraction)2020-02-28 00:48:00* Test Item Value Reference Range Interpretation Comments Hematocrit (test code = 4544-3) 33.9 34.2-44.1 [facility] HospitalAutomated erythrocyte mean corpuscular kvsnld0060-53-33 00:48:00* Test Item Value Reference Range Interpretation Comments Mean Corpuscular Volume (test code = 787-2) 75.8 81-99 [facility] HospitalAutomated erythrocyte mean corpuscular hemoglobin (mass per erythrocyte)2020-02-28 00:48:00* Test Item Value Reference Range Interpretation Comments Mean Corpuscular Hemoglobin (test code = 785-6) 21.7 28-32 [facility] HospitalAutomated erythrocyte mean corpuscular hemoglobin concentration measurement (mass/volume)2020-02-28 00:48:00* Test Item Value Reference Range Interpretation Comments Mean Corpuscular Hemoglobin Concent (test code = 786-4) 28.6 31-35 [facility] HospitalRDW TmbLs-Xzm7396-15-30 00:48:00* Test Item Value Reference Range Interpretation Comments Red Cell Distribution Width (test code = 28376-4) 22.3 11.7 -14.4 [facility] HospitalAutomated blood platelet count (count/volume)2020-02-28 00:48:00* Test Item Value Reference Range Interpretation Comments Platelet Count (test code = 777-3) 424 140-360 [facility] HospitalAutomated blood segmented neutrophil count as percentage of total strleuvwsl3947-40-86 00:48:00* Test Item Value Reference Range Interpretation Comments Neutrophils (%) (Auto) (test code = 72100-9) 67.1 38.7-80.0 [facility] HospitalAutomated blood lymphocyte count as percentage ot total auoselwnib8382-17-48 00:48:00* Test Item Value Reference Range Interpretation Comments Lymphocytes (%) (Auto) (test code = 736-9) 23.2 18.0-39.1 [facility] HospitalAutomated blood monocyte count as percentage of total wwukktfykg6113-67-18 00:48:00* Test Item Value Reference Range Interpretation Comments Monocytes (%) (Auto) (test code = 5905-5) 6.9 4.4-11.3 [facility] HospitalAutomated blood eosinophil count as percentage of total xbgwgleczt5121-01-83 00:48:00* Test Item Value Reference Range Interpretation Comments Eosinophils (%) (Auto) (test code = 713-8) 1.4 0.0-6.0 [facility] HospitalAutomated blood basophil count as percentage of total lhsqhlyeph8668-57-81 00:48:00* Test Item Value Reference Range Interpretation Comments Basophils (%) (Auto) (test code = 706-2) 0.5 0.0-1.0 [facility] HospitalFluoroscopic procedure less than one hour ebxmmwwe5380-57-61 00:48:00* Test Item Value Reference Range Interpretation Comments IM GRANULOCYTES % (test code = IM GRANULOCYTES %) 0.9 0.0- 1.0 [facility] HospitalAutomated blood neutrophil count 2020-02-28 00:48:00* Test Item Value Reference Range Interpretation Comments Neutrophils # (Auto) (test code = 751-8) 11.5 2.1-6.9 [facility] HospitalBlood lymphocytes count (number/volume) 2020-02-28 00:48:00* Test Item Value Reference Range Interpretation Comments Lymphocytes # (Auto) (test code = 53460-9) 4.0 1.0-3.2 [facility] HospitalBlood monocytes automated count (number/volume)2020-02-28 00:48:00* Test Item Value Reference Range Interpretation Comments Monocytes # (Auto) (test code = 742-7) 1.2 0.2-0.8 [facility] HospitalAutomated blood eosinophil count 2020-02-28 00:48:00* Test Item Value Reference Range Interpretation Comments Eosinophils # (Auto) (test code = 711-2) 0.2 0.0-0.4 [facility] HospitalAutomated blood basophil count (count/volume)2020-02-28 00:48:00* Test Item Value Reference Range Interpretation Comments Basophils # (Auto) (test code = 704-7) 0.1 0.0-0.1 [facility] HospitalFluoroscopic procedure less than one hour ttjagefu4430-77-72 00:48:00* Test Item Value Reference Range Interpretation Comments Absolute Immature Granulocyte (auto (romelia t code = Absolute Immature Granulocyte (auto) 0.16 0-0.1 [facility] sodium measurement (moles/volume)2020-02-28 00:48:00* Test Item Value Reference Range Interpretation Comments Sodium Level (test code = 2951-2) 142 136-145 [facility] or plasma potassium measurement (moles/volume)2020-02-28 00:48:00* Test Item Value Reference Range Interpretation Comments Potassium Level (test code = 2823-3) 3.9 3.5-5.1 [facility] or plasma chloride measurement (moles/volume)2020-02-28 00:48:00* Test Item Value Reference Range Interpretation Comments Chloride Level (test code = 2075-0) 100 98-107 [facility] or plasma carbon dioxide, total measurement (moles/volume)2020-02-28 00:48:00* Test Item Value Reference Range Interpretation Comments Carbon Dioxide Level (test code = 2028-9) 31 22-29 [facility]um or plasma anion fzm1407-92-08 00:48:00* Test Item Value Reference Range Interpretation Comments Anion Gap (test code = 23096-0) 14.9 8-16 [facility] or plasma urea nitrogen measurement (mass/volume)2020-02-28 00:48:00* Test Item Value Reference Range Interpretation Comments Blood Urea Nitrogen (test code = 3094-0) 18 7-26 [facility] or plasma creatinine measurement (mass/volume)2020-02-28 00:48:00* Test Item Value Reference Range Interpretation Comments Creatinine (test code = 2160-0) 0.78 0.57-1.11 [facility] or plasma urea nitrogen/creatinine mass gsjjp4241-33-09 00:48:00* Test Item Value Reference Range Interpretation Comments BUN/Creatinine Ratio (test code = 3097-3) 23 6-25 [facility] HospitalEstimated glomerular filtration rate (GFR) obpxudttlaqcx5440-69-53 00:48:00* Test Item Value Reference Range Interpretation Comments Estimat Glomerular Filtration Rate (test code = 212561462) > 60 >60 Ranges were taken from the National Kidney Disease Education Program and the [facility] Foundation literature.Reference ranges:60 or greater: Guzvmp58-19 ( for 3 consecutive months): Chronic kidney disease 15 or less: Kidney failureParkland Memorial HospitalGlucose fgnzojnfkya4938-25-15 00:48:00* Test Item Value Reference Range Interpretation Comments Glucose Level (test code = YBX9212) 15 74-118 Results repeated and called to ED ESPINAL RN at 0119 on 02/28/20 by Mann Cordon. Read back and verified.[facility] or plasma calcium measurement (mass/volume)2020-02-28 00:48:00* Test Item Value Reference Range Interpretation Comments Calcium Level (test code = 64695-5) 9.7 8.4-10.2 [facility] or plasma total bilirubin measurement (mass/volume)2020-02-28 00:48:00* Test Item Value Reference Range Interpretation Comments Total Bilirubin (test code = 1975-2) 0.1 0.2-1.2 [facility] HospitalFluoroscopic procedure less than one hour bnfcyvey3939-67-01 00:48:00* Test Item Value Reference Range Interpretation Comments Aspartate Amino Transf (AST/SGOT) (test code = Aspartate Amino Transf (AST/SGOT)) 13 5-34 [facility] or plasma alanine aminotransferase measurement (enzymatic activity/volume)2020-02-28 00:48:00* Test Item Value Reference Range Interpretation Comments Alanine Aminotransferase (ALT/SGPT) (test code = 1742-6) 9 0-55 [facility] or plasma protein measurement (mass/volume)2020-02-28 00:48:00* Test Item Value Reference Range Interpretation Comments Total Protein (test code = 2885-2) 7.3 6.5-8.1 [facility] or plasma albumin measurement (mass/volume)2020-02-28 00:48:00* Test Item Value Reference Range Interpretation Comments Albumin (test code = 1751-7) 3.5 3.5-5.0 [facility] HospitalPlasma globulin measurement (mass/volume) 2020-02-28 00:48:00* Test Item Value Reference Range Interpretation Comments Globulin (test code = 87123-1) 3.8 2.3-3.5 [facility] or plasma albumin/globulin mass lencw9611-78-80 00:48:00* Test Item Value Reference Range Interpretation Comments Albumin/Globulin Ratio (test code = 1759-0) 0.9 0.8-2.0 [facility] or plasma alkaline phosphatase measurement (enzymatic activity/volume)2020-02-28 00:48:00* Test Item Value Reference Range Interpretation Comments Alkaline Phosphatase (test code = 6768-6) 136 40-150 [facility] or plasma creatine kinase measurement (enzymatic activity/volume)2020-02-28 00:48:00* Test Item Value Reference Range Interpretation Comments Creatine Kinase (test code = 2157-6) 140 29-168 [facility] or plasma creatine kinase MB measurement (mass/volume)2020-02-28 00:48:00* Test Item Value Reference Range Interpretation Comments Creatine Kinase MB (test code = 49086-8) 3.50 0-5.0 [facility] HospitalTroponin I measurement by highly sensitive enzyme ujwwmtwsofg3384-04-88 00:48:00* Test Item Value Reference Range Interpretation Comments Troponin I (test code = 13794-2) < 0.001 0-0.300 [facility] or plasma ethanol measurement (mass/volume)2020-02-28 00:48:00* Test Item Value Reference Range Interpretation Comments Ethyl Alcohol Level (test code = 5643-2) < 10.0 0.0-10.0 [facility] HospitalBlood leukocytes automated count (number/volume)2020-02-28 00:48:00* Test Item Value Reference Range Interpretation Comments White Blood Count (test code = 6690-2) 17.06 4.8-10.8 [facility] HospitalBlood erythrocytes automated count (number/volume)2020-02-28 00:48:00* Test Item Value Reference Range Interpretation Comments Red Blood Count (test code = 789-8) 4.47 3.6-5.1 [facility] HospitalBlood hemoglobin measurement (moles/volume)2020-02-28 00:48:00* Test Item Value Reference Range Interpretation Comments Hemoglobin (test code = 28327-1) 9.7 12.0-16.0 [facility] HospitalAutomated blood hematocrit (volume fraction)2020-02-28 00:48:00* Test Item Value Reference Range Interpretation Comments Hematocrit (test code = 4544-3) 33.9 34.2-44.1 [facility] HospitalAutomated erythrocyte mean corpuscular tcxnol3187-98-43 00:48:00* Test Item Value Reference Range Interpretation Comments Mean Corpuscular Volume (test code = 787-2) 75.8 81-99 [facility] HospitalAutomated erythrocyte mean corpuscular hemoglobin (mass per erythrocyte)2020-02-28 00:48:00* Test Item Value Reference Range Interpretation Comments Mean Corpuscular Hemoglobin (test code = 785-6) 21.7 28-32 [facility] HospitalAutomated erythrocyte mean corpuscular hemoglobin concentration measurement (mass/volume)2020-02-28 00:48:00* Test Item Value Reference Range Interpretation Comments Mean Corpuscular Hemoglobin Concent (test code = 786-4) 28.6 31-35 [facility] HospitalRDW DqjKl-Zvu9758-31-30 00:48:00* Test Item Value Reference Range Interpretation Comments Red Cell Distribution Width (test code = 14246-0) 22.3 11.7 -14.4 [facility] HospitalAutomated blood platelet count (count/volume)2020-02-28 00:48:00* Test Item Value Reference Range Interpretation Comments Platelet Count (test code = 777-3) 424 140-360 [facility] HospitalAutomated blood segmented neutrophil count as percentage of total sevfgplfaw1672-22-53 00:48:00* Test Item Value Reference Range Interpretation Comments Neutrophils (%) (Auto) (test code = 51192-1) 67.1 38.7-80.0 [facility] HospitalAutomated blood lymphocyte count as percentage ot total yuwlggniwy0494-33-55 00:48:00* Test Item Value Reference Range Interpretation Comments Lymphocytes (%) (Auto) (test code = 736-9) 23.2 18.0-39.1 [facility] HospitalAutomated blood monocyte count as percentage of total fbiykoquvx8531-11-96 00:48:00* Test Item Value Reference Range Interpretation Comments Monocytes (%) (Auto) (test code = 5905-5) 6.9 4.4-11.3 [facility] HospitalAutomated blood eosinophil count as percentage of total uknwcqzzqn7131-07-45 00:48:00* Test Item Value Reference Range Interpretation Comments Eosinophils (%) (Auto) (test code = 713-8) 1.4 0.0-6.0 [facility] HospitalAutomated blood basophil count as percentage of total oblbniapdn7311-80-17 00:48:00* Test Item Value Reference Range Interpretation Comments Basophils (%) (Auto) (test code = 706-2) 0.5 0.0-1.0 [facility] HospitalFluoroscopic procedure less than one hour oobsqlls1403-90-15 00:48:00* Test Item Value Reference Range Interpretation Comments IM GRANULOCYTES % (test code = IM GRANULOCYTES %) 0.9 0.0- 1.0 [facility] HospitalAutomated blood neutrophil count 2020-02-28 00:48:00* Test Item Value Reference Range Interpretation Comments Neutrophils # (Auto) (test code = 751-8) 11.5 2.1-6.9 [facility] HospitalBlood lymphocytes count (number/volume) 2020-02-28 00:48:00* Test Item Value Reference Range Interpretation Comments Lymphocytes # (Auto) (test code = 62994-0) 4.0 1.0-3.2 [facility] HospitalBlood monocytes automated count (number/volume)2020-02-28 00:48:00* Test Item Value Reference Range Interpretation Comments Monocytes # (Auto) (test code = 742-7) 1.2 0.2-0.8 [facility] HospitalAutomated blood eosinophil count 2020-02-28 00:48:00* Test Item Value Reference Range Interpretation Comments Eosinophils # (Auto) (test code = 711-2) 0.2 0.0-0.4 [facility] HospitalAutomated blood basophil count (count/volume)2020-02-28 00:48:00* Test Item Value Reference Range Interpretation Comments Basophils # (Auto) (test code = 704-7) 0.1 0.0-0.1 [facility] HospitalFluoroscopic procedure less than one hour byfdtuwl6347-03-44 00:48:00* Test Item Value Reference Range Interpretation Comments Absolute Immature Granulocyte (auto (romelia t code = Absolute Immature Granulocyte (auto) 0.16 0-0.1 [facility] sodium measurement (moles/volume)2020-02-28 00:48:00* Test Item Value Reference Range Interpretation Comments Sodium Level (test code = 2951-2) 142 136-145 [facility] plasma potassium measurement (moles/volume)2020-02-28 00:48:00* Test Item Value Reference Range Interpretation Comments Potassium Level (test code = 2823-3) 3.9 3.5-5.1 [facility] plasma chloride measurement (moles/volume)2020-02-28 00:48:00* Test Item Value Reference Range Interpretation Comments Chloride Level (test code = 2075-0) 100 98-107 [facility] plasma carbon dioxide, total measurement (moles/volume)2020-02-28 00:48:00* Test Item Value Reference Range Interpretation Comments Carbon Dioxide Level (test code = 2028-9) 31 22-29 [facility] anion vsa1169-80-55 00:48:00* Test Item Value Reference Range Interpretation Comments Anion Gap (test code = 85159-6) 14.9 8-16 [facility] plasma urea nitrogen measurement (mass/volume)2020-02-28 00:48:00* Test Item Value Reference Range Interpretation Comments Blood Urea Nitrogen (test code = 3094-0) 18 7-26 [facility] plasma creatinine measurement (mass/volume)2020-02-28 00:48:00* Test Item Value Reference Range Interpretation Comments Creatinine (test code = 2160-0) 0.78 0.57-1.11 [facility] or plasma urea nitrogen/creatinine mass rjolj2502-66-96 00:48:00* Test Item Value Reference Range Interpretation Comments BUN/Creatinine Ratio (test code = 3097-3) 23 6-25 [facility] HospitalEstimated glomerular filtration rate (GFR) frnwdnwkieiio7900-96-22 00:48:00* Test Item Value Reference Range Interpretation Comments Estimat Glomerular Filtration Rate (test code = 140658204) > 60 >60 Ranges were taken from the National Kidney Disease Education Program and the [facility] Kidney Foundation literature.Reference ranges:60 or greater: Vjzzns94-64 ( for 3 consecutive months): Chronic kidney disease 15 or less: Kidney failureParkland Memorial HospitalGlucose msmvxpkqcct7210-28-09 00:48:00* Test Item Value Reference Range Interpretation Comments Glucose Level (test code = IZB6372) 15 74-118 Results repeated and called to ED ESPINAL RN at 0119 on 02/28/20 by Mann Cordon. Read back and verified.[facility] plasma calcium measurement (mass/volume)2020-02-28 00:48:00* Test Item Value Reference Range Interpretation Comments Calcium Level (test code = 69029-8) 9.7 8.4-10.2 [facility] or plasma total bilirubin measurement (mass/volume)2020-02-28 00:48:00* Test Item Value Reference Range Interpretation Comments Total Bilirubin (test code = 1975-2) 0.1 0.2-1.2 [facility] HospitalFluoroscopic procedure less than one hour xehtjcdn3061-69-06 00:48:00* Test Item Value Reference Range Interpretation Comments Aspartate Amino Transf (AST/SGOT) (test code = Aspartate Amino Transf (AST/SGOT)) 13 5-34 [facility] alanine aminotransferase measurement (enzymatic activity/volume)2020-02-28 00:48:00* Test Item Value Reference Range Interpretation Comments Alanine Aminotransferase (ALT/SGPT) (test code = 1742-6) 9 0-55 [facility] or plasma protein measurement (mass/volume)2020-02-28 00:48:00* Test Item Value Reference Range Interpretation Comments Total Protein (test code = 2885-2) 7.3 6.5-8.1 [facility] or plasma albumin measurement (mass/volume)2020-02-28 00:48:00* Test Item Value Reference Range Interpretation Comments Albumin (test code = 1751-7) 3.5 3.5-5.0 [facility] HospitalPlasma globulin measurement (mass/volume) 2020-02-28 00:48:00* Test Item Value Reference Range Interpretation Comments Globulin (test code = 61302-3) 3.8 2.3-3.5 [facility] or plasma albumin/globulin mass bjhti8907-62-12 00:48:00* Test Item Value Reference Range Interpretation Comments Albumin/Globulin Ratio (test code = 1759-0) 0.9 0.8-2.0 [facility] or plasma alkaline phosphatase measurement (enzymatic activity/volume)2020-02-28 00:48:00* Test Item Value Reference Range Interpretation Comments Alkaline Phosphatase (test code = 6768-6) 136 40-150 [facility] or plasma creatine kinase measurement (enzymatic activity/volume)2020-02-28 00:48:00* Test Item Value Reference Range Interpretation Comments Creatine Kinase (test code = 2157-6) 140 29-168 [facility] or plasma creatine kinase MB measurement (mass/volume)2020-02-28 00:48:00* Test Item Value Reference Range Interpretation Comments Creatine Kinase MB (test code = 42711-7) 3.50 0-5.0 [facility] HospitalTroponin I measurement by highly sensitive enzyme ggndoedmpdy6739-54-71 00:48:00* Test Item Value Reference Range Interpretation Comments Troponin I (test code = 96903-4) < 0.001 0-0.300 [facility] or plasma ethanol measurement (mass/volume)2020-02-28 00:48:00* Test Item Value Reference Range Interpretation Comments Ethyl Alcohol Level (test code = 5643-2) < 10.0 0.0-10.0 [facility] HospitalHAND 3+ VIEWS SYOE0188-71-62 23:32:00 [place] [address] Patient Name: STEPHANIE CAMERON MR #: [id number] : 1960 Age/Sex: 59/F Req #: [id number] Adm Physician: Ordered by: DO SCHROEDER DO Report #: [id number] Location: ER Room/Bed: Procedure: [id number] DX/HAND 3+ VIEW S LEFT Exam Date: 02/27/20 Exam Time: 2309 REPORT STATUS: Signed HAND 3+ VIEWS LEFT - 3 views HISTORY: Pain COMPARISON: None available. FINDINGS: Bones: No acute displaced fracture. Osseous alignment is within normal l imits. 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 Soft tiss ues: The soft tissues appear unremarkable. IMPRESSION: No acute rad iographic abnormality. Signed by: Isiah Luz MD on 02/27/2020 11:32 PM Dictated By: ISIAH LUZ MD 31 Transcribed By: SCOTT on 02/27/202331 COPY TO: DO TORRES DO VQ LUNG SCAN VENT HDRHOGLJQ9615-01-73 22:44:00 [place] [address] Patient Name: STEPHANIE CAMERON MR #: [id number] : 1960 Age/Sex: 59/F Req #: [id number] Adm Physician: Ordered by: DO GUTIERREZ DIRECTOR OF CLINICAL SERVICES Report #: [id number] Location: ER Room/Bed: Procedure: [id number] N M/VQ LUNG SCAN VENT PERFUSION Exam Date: Exam Ti me: REPORT STATUS: Signed Venti lation/perfusion lung scan Clinical Information: New onset SOB; chest pain Comparison: Chest radiograph 12/23/2019 Discussion: Xenon-133 gas 25 mC i was administered via inhalation. Dynamic images of the lungs in the posteri or projection were obtained through single breath, equilibrium, and washout ph ases. Distribution of tracer activity is irregular throughout the lungs. The re are no segmental ventilatory defects. Washout of tracer is diffusely delay ed with diffuse air trapping. Perfusion images of the lungs were obtained i n multiple projections following intravenous administration of approximately 6 mCi of Tc-99m MAA. Distribution of tracer is irregular throughout the lungs. The contours of the lungs are well demarcated. There are no segmental perfus ion defects of any size. The cardiomediastinal silhouette is unremarkable . Impression: 1. Scan findings represent a VERY LOW probability for acute pulmonary embolic disease based on the PIOPED II criteria. 2. Scan e vidence of obstructive lung disease. Signed by: Dr. Chen Phillips M.D. on 10:49 PM Dictated By: CHEN PHILLIPS MD 48 Transcribed By: SCOTT on 12/23/192248 C OPY TO: OD GUTIERREZ NP Creatine Kinase [id number] 19:29:00* Test Item Value Reference Range Interpretation Comments Creatine Kinase MB (test code = 91432-8) 2.00 0-5.0 [facility] HospitalTroponin [id number] 19:29:00* Test Item Value Reference Range Interpretation Comments Troponin I (test code = QCU9950) 0.008 0-0.300 [facility] HospitalThyroid Stimulating Hormone (TSH) 2019-12-23 19:29:00* Test Item Value Reference Range Interpretation Comments Thyroid Stimulating Hormone (TSH) (test code = 70638-9) 0.177 0.350-4.940 L [facility] HospitalCHEST SINGLE (PORTABLE)2019-12-23 19:25:00 [facility] [address] [address] Patient Name: STEPHANIE CAMERON MR #: [id number] : 1960 Age/Sex: 59/F Req #: [id number] Adm Physician: Ordered by: DO GUTIERREZ NP Report #: [id number] Location: ER Room/Bed: Procedure: [id number] D X/CHEST SINGLE (PORTABLE) Exam Date: 12/23/19 Exam T ifrah: 184 REPORT STATUS: Signed EXAMINATION: CHEST SINGLE (PORTABLE) COMPARISON: Chest x-ray 12/22/2019 INDICATION: Shortness of breath, chest pain ERMD ORDER [id number] Y DISCUSSION: Frontal view of the [...] (PE/DVT)2019-12-23 19:11:00* Test Item Value Reference Range Interpretation Comments D-Dimer Quantitative (PE/DVT) (test code = 71661-7) 0.47 0. 00-0.45 H As with all in vitro diagnostic tests, the test results should be interpreted by the physician in conjunction with clinical findings and other test results.Test results are reported in NEW D-dimer units(ug/mLFEU).[facility] HospitalProthrombin Enjz3596-99-01 19:04:00* Test Item Value Reference Range Interpretation Comments Prothrombin Time (test code = 5902-2) 12.1 11.9-14.5 [facility] HospitalProthromb Time International Ratio 2019-12-23 19:04:00* Test Item Value Reference Range Interpretation Comments Prothromb Time International Ratio (test code = 6301-6) 0.85 Oral Anticoagulant Therapy INR Values:1. Low Intensity Therapy 1.5 - 2.02 . Moderate Intensity Therapy 2.0 - 3.03. High Intensity Therapy(1) 2.5 - 3. 54. High Intensity Therapy(2) 3.0 - 4.05. Panic Value INR > 5.0 [facility] HospitalActivated Partial Thromboplast Time 2019-12-23 19:04:00* Test Item Value Reference Range Interpretation Comments Activated Partial Thromboplast Time (test code = 08460-0) 30.6 23.8-35.5 [facility] Worthodium Xfkwy0541-99-13 19:03:00* Test Item Value Reference Range Interpretation Comments Sodium Level (test code = 2951-2) 142 136-145 [facility] HospitalPotassium Qtkeg8590-80-24 19:03:00* Test Item Value Reference Range Interpretation Comments Potassium Level (test code = 2823-3) 4.8 3.5-5.1 [facility] HospitalChloride Avfiv7071-66-29 19:03:00* Test Item Value Reference Range Interpretation Comments Chloride Level (test code = 2075-0) 105 98-107 [facility] HospitalCarbon Dioxide Iykny4284-78-45 19:03:00* Test Item Value Reference Range Interpretation Comments Carbon Dioxide Level (test code = 2028-9) 27 22-29 [facility] HospitalAnion Jeh3131-54-90 19:03:00* Test Item Value Reference Range Interpretation Comments Anion Gap (test code = 33236-5) 14.8 8-16 [facility] HospitalBlood Urea Jrqjifdv7256-52-55 19:03:00* Test Item Value Reference Range Interpretation Comments Blood Urea Nitrogen (test code = 3094-0) 15 7-26 [facility] HospitalCreatinine2020-02-23 19:03:00* Test Item Value Reference Range Interpretation Comments Creatinine (test code = 2160-0) 0.90 0.57-1.11 [facility] HospitalBUN/Creatinine Rtolk6923-21-71 19:03:00* Test Item Value Reference Range Interpretation Comments BUN/Creatinine Ratio (test code = 3097-3) 17 6- [facility] HospitalEstimat Glomerular Filtration Rate 2019-12-23 19:03:00* Test Item Value Reference Range Interpretation Comments Estimat Glomerular Filtration Rate (test code = 640640200) > 60 >60 Ranges were taken from the National Kidney Disease Education Program and the [facility] literature.Reference ranges:60 or greater: Aousuz51-03 ( for 3 consecutive months): Chronic kidney disease 15 or less: Kidney failureParkland Memorial HospitalGlucose Swjtc2602-24-15 19:03:00* Test Item Value Reference Range Interpretation Comments Glucose Level (test code = EFG6690) 157 74-118 H [facility] HospitalCalcium Mhmww1294-29-05 19:03:00* Test Item Value Reference Range Interpretation Comments Calcium Level (test code = 40904-6) 9.7 8.4-10.2 [facility] HospitalTotal Fmavrrdlp2916-02-53 19:03:00* Test Item Value Reference Range Interpretation Comments Total Bilirubin (test code = 1975-2) 0.2 0.2-1.2 [facility] HospitalAspartate Amino Transf (AST/SGOT) 2019-12-23 19:03:00* Test Item Value Reference Range Interpretation Comments Aspartate Amino Transf (AST/SGOT) (test code = Aspartate Amino Transf (AST/SGOT)) 10 5-34 [facility] HospitalAlanine Aminotransferase (ALT/SGPT) 2019-12-23 19:03:00* Test Item Value Reference Range Interpretation Comments Alanine Aminotransferase (ALT/SGPT) (test code = 1742-6) 6 0-55 [facility] HospitalTotal Kubmrmk5480-98-08 19:03:00* Test Item Value Reference Range Interpretation Comments Total Protein (test code = 2885-2) 6.9 6.5-8.1 [facility] HospitalAlbumin2020-02-23 19:03:00* Test Item Value Reference Range Interpretation Comments Albumin (test code = 1751-7) 3.5 3.5-5.0 [facility] HospitalGlobulin2020-02-23 19:03:00* Test Item Value Reference Range Interpretation Comments Globulin (test code = 88107-2) 3.4 2.3-3.5 [facility] HospitalAlbumin/Globulin Aiyzk7175-65-60 19:03:00 * Test Item Value Reference Range Interpretation Comments Albumin/Globulin Ratio (test code = 1759-0) 1.0 0.8-2.0 [facility] HospitalAlkaline Tmtvpmvosdk1854-49-50 19:03:00* Test Item Value Reference Range Interpretation Comments Alkaline Phosphatase (test code = 6768-6) 153 40-150 H [facility] HospitalCreatine Viswil8811-90-37 19:03:00* Test Item Value Reference Range Interpretation Comments Creatine Kinase (test code = 2157-6) 60 29-168 [facility] HospitalWhite Blood Jhuen0460-37-33 18:46:00* Test Item Value Reference Range Interpretation Comments White Blood Count (test code = 6690-2) 12.67 4.8-10.8 H [facility] HospitalRed Blood Nozmb8885-57-22 18:46:00* Test Item Value Reference Range Interpretation Comments Red Blood Count (test code = 789-8) 4.34 3.6-5.1 [facility] HospitalHemoglobin2020-02-23 18:46:00* Test Item Value Reference Range Interpretation Comments Hemoglobin (test code = 38325-2) 9.6 12.0-16.0 L [facility] HospitalHematocrit2020-02-23 18:46:00* Test Item Value Reference Range Interpretation Comments Hematocrit (test code = 4544-3) 33.6 34.2-44.1 L [facility] HospitalMean Corpuscular Phntrk0000-56-48 18:46:00* Test Item Value Reference Range Interpretation Comments Mean Corpuscular Volume (test code = 787-2) 77.4 81-99 L [facility] HospitalMean Corpuscular Bimtfspupr1629-66-42 18:46:00* Test Item Value Reference Range Interpretation Comments Mean Corpuscular Hemoglobin (test code = 785-6) 22.1 28-32 L [facility] HospitalMean Corpuscular Hemoglobin Concent 2019-12-23 18:46:00* Test Item Value Reference Range Interpretation Comments Mean Corpuscular Hemoglobin Concent (test code = 786-4) 28.6 31-35 L [facility] HospitalRed Cell Distribution Trskt4626-55-72 18:46:00* Test Item Value Reference Range Interpretation Comments Red Cell Distribution Width (test code = 08151-5) 18.7 11.7 -14.4 H [facility] HospitalPlatelet Pmmsn8215-42-31 18:46:00* Test Item Value Reference Range Interpretation Comments Platelet Count (test code = 777-3) 362 140-360 H [facility] HospitalNeutrophils (%) (Auto)2019-12-23 18:46:00 * Test Item Value Reference Range Interpretation Comments Neutrophils (%) (Auto) (test code = 30180-0) 60.4 38.7-80.0 [facility] HospitalLymphocytes (%) (Auto)2019-12-23 18:46:00 * Test Item Value Reference Range Interpretation Comments Lymphocytes (%) (Auto) (test code = 736-9) 29.9 18.0-39.1 [facility] HospitalMonocytes (%) (Auto)2019-12-23 18:46:00* Test Item Value Reference Range Interpretation Comments Monocytes (%) (Auto) (test code = 5905-5) 5.1 4.4-11.3 [facility] HospitalEosinophils (%) (Auto)2019-12-23 18:46:00 * Test Item Value Reference Range Interpretation Comments Eosinophils (%) (Auto) (test code = 713-8) 3.8 0.0-6.0 [facility] HospitalBasophils (%) (Auto)2019-12-23 18:46:00* Test Item Value Reference Range Interpretation Comments Basophils (%) (Auto) (test code = 706-2) 0.4 0.0-1.0 [facility] HospitalIM GRANULOCYTES %2019-12-23 18:46:00* Test Item Value Reference Range Interpretation Comments IM GRANULOCYTES % (test code = IM GRANULOCYTES %) 0.4 0.0- 1.0 [facility] HospitalNeutrophils # (Auto)2019-12-23 18:46:00* Test Item Value Reference Range Interpretation Comments Neutrophils # (Auto) (test code = 751-8) 7.7 2.1-6.9 H [facility] HospitalLymphocytes # (Auto)2019-12-23 18:46:00* Test Item Value Reference Range Interpretation Comments Lymphocytes # (Auto) (test code = 24241-0) 3.8 1.0-3.2 H [facility] HospitalMonocytes # (Auto)2019-12-23 18:46:00* Test Item Value Reference Range Interpretation Comments Monocytes # (Auto) (test code = 742-7) 0.6 0.2-0.8 [facility] HospitalEosinophils # (Auto)2019-12-23 18:46:00* Test Item Value Reference Range Interpretation Comments Eosinophils # (Auto) (test code = 711-2) 0.5 0.0-0.4 H [facility] HospitalBasophils # (Auto)2019-12-23 18:46:00* Test Item Value Reference Range Interpretation Comments Basophils # (Auto) (test code = 704-7) 0.1 0.0-0.1 [facility] HospitalAbsolute Immature Granulocyte (auto 2019-12-23 18:46:00* Test Item Value Reference Range Interpretation Comments Absolute Immature Granulocyte (auto (romelia t code = Absolute Immature Granulocyte (auto) 0.05 0-0.1 [facility] HospitalProthrombin time (PT) in platelet poor plasma by coagulation bxcue7642-25-43 17:33:00* Test Item Value Reference Range Interpretation Comments Prothrombin Time (test code = 5902-2) 12.1 11.9-14.5 [facility] HospitalINR in Platelet poor plasma by Coagulation aihet7749-00-42 17:33:00* Test Item Value Reference Range Interpretation Comments Prothromb Time International Ratio (test code = 6301-6) 0.85 Oral Anticoagulant Therapy INR Values:1. Low Intensity Therapy 1.5 - 2.02 . Moderate Intensity Therapy 2.0 - 3.03. High Intensity Therapy(1) 2.5 - 3. 54. High Intensity Therapy(2) 3.0 - 4.05. Panic Value INR > 5.0 [facility] HospitalActivated partial thromboplastin time (aPTT) in platelet poor plasma by coagulation xwcgg8225-74-32 17:33:00* Test Item Value Reference Range Interpretation Comments Activated Partial Thromboplast Time (test code = 58138-9) 30.6 23.8-35.5 [facility] HospitalFibrin D-dimer DDU measurement in platelet poor plasma (mass/volume)2019-12-23 17:33:00* Test Item Value Reference Range Interpretation Comments D-Dimer Quantitative (PE/DVT) (test code = 03122-9) 0.47 0. 00-0.45 As with all in vitro diagnostic tests, the test results should be interpreted by the physician in conjunction with clinical findings and other test results.Test results are reported in NEW D-dimer units(ug/mLFEU).[facility]herum or plasma thyrotropin measurement by detection limit <= 0.005 miu/l (units/volume)2019-12-23 17:33:00* Test Item Value Reference Range Interpretation Comments Thyroid Stimulating Hormone (TSH) (test code = 00404-5) 0.177 0.350-4.940 [facility] HospitalProthrombin time (PT) in platelet poor plasma by coagulation cxsre5900-01-89 17:33:00* Test Item Value Reference Range Interpretation Comments Prothrombin Time (test code = 5902-2) 12.1 11.9-14.5 [facility] HospitalINR in Platelet poor plasma by Coagulation fldfj8485-45-91 17:33:00* Test Item Value Reference Range Interpretation Comments Prothromb Time International Ratio (test code = 6301-6) 0.85 Oral Anticoagulant Therapy INR Values:1. Low Intensity Therapy 1.5 - 2.02 . Moderate Intensity Therapy 2.0 - 3.03. High Intensity Therapy(1) 2.5 - 3. 54. High Intensity Therapy(2) 3.0 - 4.05. Panic Value INR > 5.0 [facility] HospitalActivated partial thromboplastin time (aPTT) in platelet poor plasma by coagulation uacfd5087-02-16 17:33:00* Test Item Value Reference Range Interpretation Comments Activated Partial Thromboplast Time (test code = 00189-9) 30.6 23.8-35.5 [facility] HospitalFibrin D-dimer DDU measurement in platelet poor plasma (mass/volume)2019-12-23 17:33:00* Test Item Value Reference Range Interpretation Comments D-Dimer Quantitative (PE/DVT) (test code = 50231-2) 0.47 0. 00-0.45 As with all in vitro diagnostic tests, the test results should be interpreted by the physician in conjunction with clinical findings and other test results.Test results are reported in NEW D-dimer units(ug/mLFEU).[facility] or plasma thyrotropin measurement by detection limit <= 0.005 miu/l (units/volume)2019-12-23 17:33:00* Test Item Value Reference Range Interpretation Comments Thyroid Stimulating Hormone (TSH) (test code = 12958-1) 0.177 0.350-4.940 [facility] HospitalBedside Kuauhkt2509-53-84 15:42:00* Test Item Value Reference Range Interpretation Comments Bedside Glucose (test code = 71264-3) 244 70-120 H Meter ID: [id number] Memorial HospitalHypochromasia 2019-12-22 19:20:00* Test Item Value Reference Range Interpretation Comments Hypochromasia (test code = 728-6) SLIGHT [facility] HospitalRed Cell Morphology Jeljjot6395-28-57 19:20:00* Test Item Value Reference Range Interpretation Comments Red Cell Morphology Comment (test code = 6742-1) ABNORMAL [facility] HospitalHypochromasia2020-02-22 19:20:00* Test Item Value Reference Range Interpretation Comments Hypochromasia (test code = 728-6) SLIGHT [facility] HospitalRed Cell Morphology Hzhkdfw2404-47-10 19:20:00* Test Item Value Reference Range Interpretation Comments Red Cell Morphology Comment (test code = 6742-1) ABNORMAL [facility] HospitalCT BRAIN QK5996-79-09 19:00:00 [facility] [address] [place] [address] Patient Name: STEPHANIE CAMERON MR #: [id number] : 1960 Age/Sex: 59/F Req #: [id number] Adm Physician: Ordered by: DO GUTIERREZ DIRECTOR OF CLINICAL SERVICES Report #: [id number] Location: ER Room/Bed: Procedure: [id number] C T/CT BRAIN WO Exam Date: 12/22/19 Exam Time: 1830 REPORT STATUS: Signed Exam: Head C T without contrast History: New onset seizure Comparison [...] 1. No acute intracranial abnormalities. 2. No change s from the prior 06/05/[address] 3. Chronic hyperdensity along the posterio r left globe, possibly related to prior hemorrhage and/or retinal detachment. Can correlate with ophthalmologic exam. Signed by: Scar Guillermo on 12/22/2019 7:05 PM Dictated By: JELENA CHAMBERLAIN MD Electronically Si gned By: JELENA CHAMBERLAIN MD on 12/22/191904 Transcribed By: SCOTT on 1904 COPY TO: DO GUTIERREZ NP Bedside Kzbgltp5739-88-55 18:58:00* Test Item Value Reference Range Interpretation Comments Bedside Glucose (test code = 05611-9) 74 70-120 Meter ID: [id number] Health [facility] Worthodium Level 2019-12-22 18:48:00* Test Item Value Reference Range Interpretation Comments Sodium Level (test code = 2951-2) 140 136-145 [facility] HospitalPotassium Bqyoe4914-38-56 18:48:00* Test Item Value Reference Range Interpretation Comments Potassium Level (test code = 2823-3) 3.7 3.5-5.1 [facility] HospitalChloride Vgjgi5521-43-19 18:48:00* Test Item Value Reference Range Interpretation Comments Chloride Level (test code = 2075-0) 106 98-107 [facility] HospitalCarbon Dioxide Fojbx3779-45-89 18:48:00* Test Item Value Reference Range Interpretation Comments Carbon Dioxide Level (test code = 2028-9) 27 22-29 [facility] HospitalAnion Aor9907-64-99 18:48:00* Test Item Value Reference Range Interpretation Comments Anion Gap (test code = 73964-1) 10.7 8-16 [facility] HospitalBlood Urea Thjrorkw8843-70-83 18:48:00* Test Item Value Reference Range Interpretation Comments Blood Urea Nitrogen (test code = 3094-0) 15 7-26 [facility] HospitalCreatinine2020-02-22 18:48:00* Test Item Value Reference Range Interpretation Comments Creatinine (test code = 2160-0) 0.77 0.57-1.11 [facility] HospitalBUN/Creatinine Hltap1654-78-91 18:48:00* Test Item Value Reference Range Interpretation Comments BUN/Creatinine Ratio (test code = 3097-3) 19 6-25 [facility] HospitalEstimat Glomerular Filtration Rate 2019-12-22 18:48:00* Test Item Value Reference Range Interpretation Comments Estimat Glomerular Filtration Rate (test code = 467805709) > 60 >60 Ranges were taken from the National Kidney Disease Education Program and the [facility] literature.Reference ranges:60 or greater: Fhltdw58-65 ( for 3 consecutive months): Chronic kidney disease 15 or less: Kidney failureParkland Memorial HospitalGlucose Gelzp2366-83-98 18:48:00* Test Item Value Reference Range Interpretation Comments Glucose Level (test code = KAE8954) 39 74-118 LL Results repeated and called to ANGELINA ADAMS at 1847 on 12/22/19 by Phil Allan. Read back and verified.[facility] HospitalCalcium Dpyyq0351-86-70 18:48:00* Test Item Value Reference Range Interpretation Comments Calcium Level (test code = 67517-3) 9.5 8.4-10.2 [facility] HospitalTotal Vidwxyome5515-06-45 18:48:00* Test Item Value Reference Range Interpretation Comments Total Bilirubin (test code = 1975-2) 0.1 0.2-1.2 L [facility] HospitalAspartate Amino Transf (AST/SGOT) 2019-12-22 18:48:00* Test Item Value Reference Range Interpretation Comments Aspartate Amino Transf (AST/SGOT) (test code = Aspartate Amino Transf (AST/SGOT)) 12 5-34 [facility] HospitalAlanine Aminotransferase (ALT/SGPT) 2019-12-22 18:48:00* Test Item Value Reference Range Interpretation Comments Alanine Aminotransferase (ALT/SGPT) (test code = 1742-6) 8 0-55 [facility] HospitalTotal Razynen6525-63-90 18:48:00* Test Item Value Reference Range Interpretation Comments Total Protein (test code = 2885-2) 7.1 6.5-8.1 [facility] HospitalAlbumin2020-02-22 18:48:00* Test Item Value Reference Range Interpretation Comments Albumin (test code = 1751-7) 3.5 3.5-5.0 [facility] HospitalGlobulin2020-02-22 18:48:00* Test Item Value Reference Range Interpretation Comments Globulin (test code = 55901-0) 3.6 2.3-3.5 H [facility] HospitalAlbumin/Globulin Qbxhf3667-54-07 18:48:00 * Test Item Value Reference Range Interpretation Comments Albumin/Globulin Ratio (test code = 1759-0) 1.0 0.8-2.0 [facility] HospitalAlkaline Wlnnudaapdw1053-99-18 18:48:00* Test Item Value Reference Range Interpretation Comments Alkaline Phosphatase (test code = 6768-6) 159 40-150 H [facility] HospitalCreatine Hpolrp5748-92-14 18:48:00* Test Item Value Reference Range Interpretation Comments Creatine Kinase (test code = 2157-6) 44 29-168 [facility] HospitalCreatine Kinase KF7962-09-70 18:48:00* Test Item Value Reference Range Interpretation Comments Creatine Kinase MB (test code = 60565-4) 1.10 0-5.0 [facility] HospitalTroponin Q4504-28-92 18:48:00* Test Item Value Reference Range Interpretation Comments Troponin I (test code = VGS5952) < 0.001 0-0.300 [facility] HospitalUrine Olqzm9988-69-11 18:45:00* Test Item Value Reference Range Interpretation Comments Urine Color (test code = 5778-6) YELLOW YELLOW [facility] HospitalUrine Awwdbbe9176-88-37 18:45:00* Test Item Value Reference Range Interpretation Comments Urine Clarity (test code = 64329-9) CLEAR CLEAR [facility] HospitalUrine Specific Oblfphn7131-59-86 18:45:00 * Test Item Value Reference Range Interpretation Comments Urine Specific [place] (test code = 5811-5) 1.010 1.010-1.02 5 [facility] HospitalUrine aZ9024-95-83 18:45:00* Test Item Value Reference Range Interpretation Comments Urine pH (test code = 42965-3) 6.5 5-7 [facility] HospitalUrine Leukocyte Xmhjidfu9668-38-87 18:45:00* Test Item Value Reference Range Interpretation Comments Urine Leukocyte Esterase (test code = 5799-2) NEGATIVE NEGATIVE [facility] HospitalUrine Teylqky1840-07-48 18:45:00* Test Item Value Reference Range Interpretation Comments Urine Nitrite (test code = 20601-6) NEGATIVE NEGATIVE [facility] HospitalUrine Fifvtvn5302-36-45 18:45:00* Test Item Value Reference Range Interpretation Comments Urine Protein (test code = 5804-0) NEGATIVE NEGATIVE [facility] HospitalUrine Glucose (UA)2019-12-22 18:45:00* Test Item Value Reference Range Interpretation Comments Urine Glucose (UA) (test code = 2349-9) NEGATIVE NEGATIVE [facility] HospitalUrine Xmrjngf1106-68-80 18:45:00* Test Item Value Reference Range Interpretation Comments Urine Ketones (test code = 20364-5) NEGATIVE NEGATIVE [facility] Vyseowyenned3363-23-76 18:45:00* Test Item Value Reference Range Interpretation Comments Urine Urobilinogen (test code = 56861-6) 0.2 0.2-1 [facility] HospitalUrine Qeihrchvx5291-76-15 18:45:00* Test Item Value Reference Range Interpretation Comments Urine Bilirubin (test code = 1978-6) NEGATIVE NEGATIVE [facility] Lvvzq9959-56-08 18:45:00* Test Item Value Reference Range Interpretation Comments Urine Blood (test code = 63310-7) NEGATIVE NEGATIVE [facility] HospitalUrine ZOM6876-27-17 18:45:00* Test Item Value Reference Range Interpretation Comments Urine WBC (test code = 5821-4) 0-5 0-5 [facility] HospitalUrine OIY7701-70-39 18:45:00* Test Item Value Reference Range Interpretation Comments Urine RBC (test code = 56247-3) 0-5 0-5 [facility] HospitalUrine Xxklwnao2431-55-62 18:45:00* Test Item Value Reference Range Interpretation Comments Urine Bacteria (test code = 07113-7) RARE NONE [facility] HospitalUrine Epithelial Ipvyc1202-39-02 18:45:00 * Test Item Value Reference Range Interpretation Comments Urine Epithelial Cells (test code = 93365-0) FEW NONE [facility] HospitalUrine Rixmh4814-28-15 18:45:00* Test Item Value Reference Range Interpretation Comments Urine Color (test code = 5778-6) YELLOW YELLOW [facility] HospitalUrine Ggopqzb8594-70-26 18:45:00* Test Item Value Reference Range Interpretation Comments Urine Clarity (test code = 49372-7) CLEAR CLEAR [facility] HospitalUrine Specific Amcfqyq0134-26-18 18:45:00 * Test Item Value Reference Range Interpretation Comments Urine Specific [place] (test code = 5811-5) 1.010 1.010-1.02 5 [facility] HospitalUrine pW3050-03-14 18:45:00* Test Item Value Reference Range Interpretation Comments Urine pH (test code = 92780-5) 6.5 5-7 [facility] HospitalUrine Leukocyte Ukevgrgb3242-79-87 18:45:00* Test Item Value Reference Range Interpretation Comments Urine Leukocyte Esterase (test code = 5799-2) NEGATIVE NEGATIVE [facility] HospitalUrine Agpjfpn5503-04-00 18:45:00* Test Item Value Reference Range Interpretation Comments Urine Nitrite (test code = 26888-3) NEGATIVE NEGATIVE [facility] HospitalUrine Kuampgh8847-32-33 18:45:00* Test Item Value Reference Range Interpretation Comments Urine Protein (test code = 5804-0) NEGATIVE NEGATIVE [facility] HospitalUrine Glucose (UA)2019-12-22 18:45:00* Test Item Value Reference Range Interpretation Comments Urine Glucose (UA) (test code = 2349-9) NEGATIVE NEGATIVE [facility] HospitalUrine Lewhznh1568-21-78 18:45:00* Test Item Value Reference Range Interpretation Comments Urine Ketones (test code = 64894-6) NEGATIVE NEGATIVE [facility] HospitalUrine Wjsbatlbcdxz9362-11-68 18:45:00* Test Item Value Reference Range Interpretation Comments Urine Urobilinogen (test code = 53996-6) 0.2 0.2-1 [facility] HospitalUrine Sfihxsltw2725-70-24 18:45:00* Test Item Value Reference Range Interpretation Comments Urine Bilirubin (test code = 1978-6) NEGATIVE NEGATIVE [facility] HospitalUrine Mmlzo6664-25-17 18:45:00* Test Item Value Reference Range Interpretation Comments Urine Blood (test code = 08681-6) NEGATIVE NEGATIVE [facility] HospitalUrine KEP2277-23-50 18:45:00* Test Item Value Reference Range Interpretation Comments Urine WBC (test code = 5821-4) 0-5 0-5 [facility] HospitalUrine CKM9378-42-68 18:45:00* Test Item Value Reference Range Interpretation Comments Urine RBC (test code = 80469-7) 0-5 0-5 [facility] HospitalUrine Wqlduddk7000-63-62 18:45:00* Test Item Value Reference Range Interpretation Comments Urine Bacteria (test code = 69081-5) RARE NONE [facility] HospitalUrine Epithelial Qkypk1234-39-23 18:45:00 * Test Item Value Reference Range Interpretation Comments Urine Epithelial Cells (test code = 94703-8) FEW NONE [facility] HospitalCHEST SINGLE (PORTABLE)2019-12-22 18:43:00 [facility] [address] [address] Patient Name: STEPHANIE CAMERON MR #: [id number] : 1960 Age/Sex: 59/F Req #: [id number] Adm Physician: Ordered by: DO GUTIERREZ DIRECTOR OF CLINICAL SERVICES Report #: [id number] Location: ER Room/Bed: Procedure: [id number] D X/CHEST SINGLE (PORTABLE) Exam Date: 12/22/19 Exam T ifrah: 1830 REPORT STATUS: Signed EXAMINATION: CHEST SINGLE (PORTABLE) INDICATION: ERMD ORDER [id number] 1830 Y COMPARISON: None FINDINGS: AP view [...] HINSON on 12/22/191842 COPY TO: DO GUTIERREZ NP White Blood Shumo9484-38-88 18:18:00* Test Item Value Reference Range Interpretation Comments White Blood Count (test code = 6690-2) 11.92 4.8-10.8 H [facility] HospitalRed Blood Ixiig8129-54-64 18:18:00* Test Item Value Reference Range Interpretation Comments Red Blood Count (test code = 789-8) 4.48 3.6-5.1 [facility] HospitalHemoglobin2020-02-22 18:18:00* Test Item Value Reference Range Interpretation Comments Hemoglobin (test code = 22092-9) 9.9 12.0-16.0 L [facility] HospitalHematocrit2020-02-22 18:18:00* Test Item Value Reference Range Interpretation Comments Hematocrit (test code = 4544-3) 34.6 34.2-44.1 [facility] HospitalMean Corpuscular Gmzalr3637-62-71 18:18:00* Test Item Value Reference Range Interpretation Comments Mean Corpuscular Volume (test code = 787-2) 77.2 81-99 L [facility] HospitalMean Corpuscular Bygenemqkf4051-94-32 18:18:00* Test Item Value Reference Range Interpretation Comments Mean Corpuscular Hemoglobin (test code = 785-6) 22.1 28-32 L [facility] HospitalMean Corpuscular Hemoglobin Concent 2019-12-22 18:18:00* Test Item Value Reference Range Interpretation Comments Mean Corpuscular Hemoglobin Concent (test code = 786-4) 28.6 31-35 L [facility] HospitalRed Cell Distribution Hlgvq4072-74-80 18:18:00* Test Item Value Reference Range Interpretation Comments Red Cell Distribution Width (test code = 55320-8) 18.7 11.7 -14.4 H [facility] HospitalPlatelet Tjedc4049-87-40 18:18:00* Test Item Value Reference Range Interpretation Comments Platelet Count (test code = 777-3) 372 140-360 H [facility] HospitalNeutrophils (%) (Auto)2019-12-22 18:18:00 * Test Item Value Reference Range Interpretation Comments Neutrophils (%) (Auto) (test code = 23979-0) 81.3 38.7-80.0 H [facility] HospitalLymphocytes (%) (Auto)2019-12-22 18:18:00 * Test Item Value Reference Range Interpretation Comments Lymphocytes (%) (Auto) (test code = 736-9) 11.3 18.0-39.1 L [facility] HospitalMonocytes (%) (Auto)2019-12-22 18:18:00* Test Item Value Reference Range Interpretation Comments Monocytes (%) (Auto) (test code = 5905-5) 4.7 4.4-11.3 [facility] HospitalEosinophils (%) (Auto)2019-12-22 18:18:00 * Test Item Value Reference Range Interpretation Comments Eosinophils (%) (Auto) (test code = 713-8) 1.5 0.0-6.0 [facility] HospitalBasophils (%) (Auto)2019-12-22 18:18:00* Test Item Value Reference Range Interpretation Comments Basophils (%) (Auto) (test code = 706-2) 0.6 0.0-1.0 [facility] HospitalIM GRANULOCYTES %2019-12-22 18:18:00* Test Item Value Reference Range Interpretation Comments IM GRANULOCYTES % (test code = IM GRANULOCYTES %) 0.6 0.0- 1.0 [facility] HospitalNeutrophils # (Auto)2019-12-22 18:18:00* Test Item Value Reference Range Interpretation Comments Neutrophils # (Auto) (test code = 751-8) 9.7 2.1-6.9 H [facility] HospitalLymphocytes # (Auto)2019-12-22 18:18:00* Test Item Value Reference Range Interpretation Comments Lymphocytes # (Auto) (test code = 53770-0) 1.4 1.0-3.2 [facility] HospitalMonocytes # (Auto)2019-12-22 18:18:00* Test Item Value Reference Range Interpretation Comments Monocytes # (Auto) (test code = 742-7) 0.6 0.2-0.8 [facility] HospitalEosinophils # (Auto)2019-12-22 18:18:00* Test Item Value Reference Range Interpretation Comments Eosinophils # (Auto) (test code = 711-2) 0.2 0.0-0.4 [facility] HospitalBasophils # (Auto)2019-12-22 18:18:00* Test Item Value Reference Range Interpretation Comments Basophils # (Auto) (test code = 704-7) 0.1 0.0-0.1 [facility] HospitalAbsolute Immature Granulocyte (auto 2019-12-22 18:18:00* Test Item Value Reference Range Interpretation Comments Absolute Immature Granulocyte (auto (romelia t code = Absolute Immature Granulocyte (auto) 0.07 0-0.1 [facility] HospitalBlswift [facility] hypochromia detection by light hawjbujrkc0961-20-85 16:50:00* Test Item Value Reference Range Interpretation Comments Hypochromasia (test code = 728-6) [facility] oqmpgjorxl6903-48-46 16:50:00* Test Item Value Reference Range Interpretation Comments Red Cell Morphology Comment (test code = 6742-1) ABNORMAL [facility] HospitalBlswift [facility] hypochromia detection by light vtjkystcit5116-88-13 16:50:00* Test Item Value Reference Range Interpretation Comments Hypochromasia (test code = 728-6) [facility] mxrlczissj8896-57-35 16:50:00* Test Item Value Reference Range Interpretation Comments Red Cell Morphology Comment (test code = 6742-1) ABNORMAL [facility] HospitalBedside Ndihqle3973-71-82 02:23:00* Test Item Value Reference Range Interpretation Comments Bedside Glucose (test code = 52515-8) 122 70-120 H Meter ID: [id number]odium Level 2019-10-10 23:11:00* Test Item Value Reference Range Interpretation Comments Sodium Level (test code = 2951-2) 136 136-145 [facility] HospitalPotassium Atbus5446-40-26 23:11:00* Test Item Value Reference Range Interpretation Comments Potassium Level (test code = 2823-3) 4.4 3.5-5.1 [facility] HospitalChloride Nsimj9396-77-54 23:11:00* Test Item Value Reference Range Interpretation Comments Chloride Level (test code = 2075-0) 101 98-107 [facility] HospitalCarbon Dioxide Xcfcm7496-50-48 23:11:00* Test Item Value Reference Range Interpretation Comments Carbon Dioxide Level (test code = 2028-9) 24 22-29 [facility] HospitalAnion Yfr6645-92-43 23:11:00* Test Item Value Reference Range Interpretation Comments Anion Gap (test code = 78767-9) 15.4 8-16 [facility] HospitalBlood Urea Gruktsxx8756-40-40 23:11:00* Test Item Value Reference Range Interpretation Comments Blood Urea Nitrogen (test code = 3094-0) 17 7-26 [facility] HospitalCreatinine2019-12-11 23:11:00* Test Item Value Reference Range Interpretation Comments Creatinine (test code = 2160-0) 0.91 0.57-1.11 [facility] HospitalBUN/Creatinine Xhpwr8583-09-80 23:11:00* Test Item Value Reference Range Interpretation Comments BUN/Creatinine Ratio (test code = 3097-3) 19 6-25 [facility] HospitalEstimat Glomerular Filtration Rate 2019-10-10 23:11:00* Test Item Value Reference Range Interpretation Comments Estimat Glomerular Filtration Rate (test code = 857449574) > 60 >60 Ranges were taken from the National Kidney Disease Education Program and the [facility] Kid[facility] Foundation literature.Reference ranges:60 or greater: Oqfste55-08 ( for 3 consecutive months): Chronic kidney disease 15 or less: Kidney failureParkland Memorial HospitalGlucose Xdxrh8869-52-55 23:11:00* Test Item Value Reference Range Interpretation Comments Glucose Level (test code = WKH0365) 135 74-118 H [facility] HospitalCalcium Yjlqy0249-95-55 23:11:00* Test Item Value Reference Range Interpretation Comments Calcium Level (test code = 15955-3) 8.9 8.4-10.2 [facility] HospitalFOOT RIGHT VYJXOEWO7832-69-98 23:11:00 [facility] [address] [address] Patient Name: STEPHANIE CAMERON MR #: [id number] : [birth year] Age/Sex: 59/F Req #: [id number] Adm Physician: Ordered by: MARYLU VALDOVINOS MD Report #: [id number] Location: ER Room/Bed: Procedure: 1211-0 078 DX/FOOT RIGHT COMPLETE Exam Date: 10/10/19 Exam Time: 2220 REPORT STATUS: Signed X-ray right foot 3 views HISTORY: Pain. COMPARISON: None available . FINDINGS: Bones: No acute displaced fracture. Screw fixation o f a healed fifth metatarsal shaft fracture deformity. [...] on 10/10/192313 COPY TO: MARYLU VALDOVINOS MD White Blood Zpkha3867-99-82 23:03:00* Test Item Value Reference Range Interpretation Comments White Blood Count (test code = 6690-2) 12.60 4.8-10.8 H [facility] HospitalRed Blood Mhcvn4790-48-06 23:03:00* Test Item Value Reference Range Interpretation Comments Red Blood Count (test code = 789-8) 4.53 3.6-5.1 [facility] HospitalHemoglobin2019-12-11 23:03:00* Test Item Value Reference Range Interpretation Comments Hemoglobin (test code = 41554-9) 10.0 12.0-16.0 L [facility] HospitalHematocrit2019-12-11 23:03:00* Test Item Value Reference Range Interpretation Comments Hematocrit (test code = 4544-3) 35.3 34.2-44.1 [facility] HospitalMean Corpuscular Eqedvz7878-73-23 23:03:00* Test Item Value Reference Range Interpretation Comments Mean Corpuscular Volume (test code = 787-2) 77.9 81-99 L [facility] HospitalMean Corpuscular Dutugxaipt8027-07-93 23:03:00* Test Item Value Reference Range Interpretation Comments Mean Corpuscular Hemoglobin (test code = 785-6) 22.1 28-32 L [facility] HospitalMean Corpuscular Hemoglobin Concent 2019-10-10 23:03:00* Test Item Value Reference Range Interpretation Comments Mean Corpuscular Hemoglobin Concent (test code = 786-4) 28.3 31-35 L [facility] HospitalRed Cell Distribution Ptouy0221-25-43 23:03:00* Test Item Value Reference Range Interpretation Comments Red Cell Distribution Width (test code = 35956-9) 23.8 11.7 -14.4 H [facility] HospitalPlatelet Kcezw5292-63-61 23:03:00* Test Item Value Reference Range Interpretation Comments Platelet Count (test code = 777-3) 376 140-360 H [facility] HospitalNeutrophils (%) (Auto)2019-10-10 23:03:00 * Test Item Value Reference Range Interpretation Comments Neutrophils (%) (Auto) (test code = 19976-2) 54.3 38.7-80.0 [facility] HospitalLymphocytes (%) (Auto)2019-10-10 23:03:00 * Test Item Value Reference Range Interpretation Comments Lymphocytes (%) (Auto) (test code = 736-9) 36.6 18.0-39.1 [facility] HospitalMonocytes (%) (Auto)2019-10-10 23:03:00* Test Item Value Reference Range Interpretation Comments Monocytes (%) (Auto) (test code = 5905-5) 6.4 4.4-11.3 [facility] HospitalEosinophils (%) (Auto)2019-10-10 23:03:00 * Test Item Value Reference Range Interpretation Comments Eosinophils (%) (Auto) (test code = 713-8) 1.6 0.0-6.0 [facility] HospitalBasophils (%) (Auto)2019-10-10 23:03:00* Test Item Value Reference Range Interpretation Comments Basophils (%) (Auto) (test code = 706-2) 0.5 0.0-1.0 [facility] HospitalIM GRANULOCYTES %2019-10-10 23:03:00* Test Item Value Reference Range Interpretation Comments IM GRANULOCYTES % (test code = IM GRANULOCYTES %) 0.6 0.0- 1.0 [facility] HospitalNeutrophils # (Auto)2019-10-10 23:03:00* Test Item Value Reference Range Interpretation Comments Neutrophils # (Auto) (test code = 751-8) 6.8 2.1-6.9 [facility] HospitalLymphocytes # (Auto)2019-10-10 23:03:00* Test Item Value Reference Range Interpretation Comments Lymphocytes # (Auto) (test code = 18271-5) 4.6 1.0-3.2 H [facility] HospitalMonocytes # (Auto)2019-10-10 23:03:00* Test Item Value Reference Range Interpretation Comments Monocytes # (Auto) (test code = 742-7) 0.8 0.2-0.8 [facility] HospitalEosinophils # (Auto)2019-10-10 23:03:00* Test Item Value Reference Range Interpretation Comments Eosinophils # (Auto) (test code = 711-2) 0.2 0.0-0.4 [facility] HospitalBasophils # (Auto)2019-10-10 23:03:00* Test Item Value Reference Range Interpretation Comments Basophils # (Auto) (test code = 704-7) 0.1 0.0-0.1 [facility] HospitalAbsolute Immature Granulocyte (auto 2019-10-10 23:03:00* Test Item Value Reference Range Interpretation Comments Absolute Immature Granulocyte (auto (romelia t code = Absolute Immature Granulocyte (auto) 0.08 0-0.1 [facility] HospitalCHEST 2 FZTQN9200-48-46 18:51:[address] [address] Patient Name: STEPHANIE CAMERON MR #: [id number] : 1960 Age/Sex: 59/F Req #: [id number] Adm Physician: Ordered by: TED FELIPE DIRECTOR OF CLINICAL SERVICES Report #: [id number] Location: ER Room/Bed: Procedure: [id number] DX/CHEST 2 VIEWS Exam Date: 07/03/19 Exam [...] FELIPE NP CERVICAL SPINE 4 OR 5 QZCQX9228-57-47 18:51:[address] [address] Patient Name: STEPHANIE CAMERON MR #: [id number] : 1960 Age/Sex: 59/F Req #: [id number] Adm Physician: Ordered by: TED FELIPE NP Report #: [id number] Location: ER Room/Bed: Procedure: [id number] DX/CERVICAL SPINE 4 OR 5 VIEWS Exam Date: 07/03/19 E xam Time: 1830 REPORT STATUS: Renetta d Exam: Cervical spine 2 views History: Neck pain Comparison: None. Findings: No fracture or malalignment. Mild degenerative endplate zachery nge without significant narrowing. Foramen intact. No abnormal soft tissue c alcification or soft tissue defect. Impression: No acute osseous abn ormality Signed by: Dr. Leigh Bloom M.D. on 07/03/2019 6:52 PM Dictated By: LEIGH BLOOM MD 51 Transcribed By: SCOTT on 07/03/191851 COPY TO: TED FLOWERS DIRECTOR OF CLINICAL SERVICES SP LUMBAR, COMPLETE MIN 0GW5802-34-34 18:48:00 [facility] [address] [place] [address] Patient Name: STEPHANIE CAMERON MR #: [id number] : 1960 Age/Sex: 59/F Req #: [id number] Adm Physician: Ordered by: TED FELIPE NP Report #: [id number] Location: ER Room/Bed: Procedure: [id number] DX/SP LUMBAR, COMPLETE MIN 4VW Exam Date: 07/03/19 E xam Time: 183 REPORT STATUS: Renetta d Exam: Lumbar spine AP lateral oblique History: Back pain Com parison: None. Findings: No fracture. Degenerative endplate change througho ut the lumbar spine. Facet arthrosis L5-S1. Impression: No acute oss eous abnormality Signed by: Dr. Leigh Bloom M.D. on 07/03/2019 6:49 PM Dictated By: LEIGH BLOOM MD 48 Transcribed By: SCOTT on 07/03/191848 COPY TO : TED FELIPE DIRECTOR OF CLINICAL SERVICES Urine QCM3581-74-99 17:36:00* Test Item Value Reference Range Interpretation Comments Urine WBC (test code = 5821-4) NONE 0-5 [facility] XQH1991-64-88 17:36:00* Test Item Value Reference Range Interpretation Comments Urine RBC (test code = 04401-9) NONE 0-5 [facility] HospitalUrine Fnzpiyfv9066-04-71 17:36:00* Test Item Value Reference Range Interpretation Comments Urine Bacteria (test code = 93955-9) FEW NONE [facility] HospitalUrine Epithelial Wyrjz4193-25-94 17:36:00 * Test Item Value Reference Range Interpretation Comments Urine Epithelial Cells (test code = 11201-2) MODERATE NONE [facility] HospitalUrine BHK3044-40-13 17:36:00* Test Item Value Reference Range Interpretation Comments Urine WBC (test code = 5821-4) NONE 0-5 [facility] HospitalUrine XUB1378-06-28 17:36:00* Test Item Value Reference Range Interpretation Comments Urine RBC (test code = 55597-2) NONE 0-5 [facility] Qukavsdv7103-21-23 17:36:00* Test Item Value Reference Range Interpretation Comments Urine Bacteria (test code = 53401-0) FEW NONE [facility] HospitalUrine Epithelial Pkbnj6539-78-66 17:36:00 * Test Item Value Reference Range Interpretation Comments Urine Epithelial Cells (test code = 97230-2) MODERATE NONE [facility] HospitalUrine Nfou6283-33-02 17:34:00* Test Item Value Reference Range Interpretation Comments Urine Test (test code = 2106-3) NEGATIVE NEGATIVE [facility] Asrs5983-08-04 17:34:00* Test Item Value Reference Range Interpretation Comments Urine Test (test code = 2106-3) NEGATIVE NEGATIVE [facility] Sxto2574-24-81 17:34:00* Test Item Value Reference Range Interpretation Comments Urine Test (test code = 2106-3) NEGATIVE NEGATIVE [facility] Zypv6407-53-55 17:34:00* Test Item Value Reference Range Interpretation Comments Urine Test (test code = 2106-3) NEGATIVE NEGATIVE [facility] HospitalUrine Fblmk7064-97-01 17:26:00* Test Item Value Reference Range Interpretation Comments Urine Color (test code = 5778-6) YELLOW YELLOW [facility] HospitalUrine Zraibcm8305-07-69 17:26:00* Test Item Value Reference Range Interpretation Comments Urine Clarity (test code = 05806-8) CLEAR CLEAR [facility] [facility] Ueeuulp6729-35-33 17:26:00 * Test Item Value Reference Range Interpretation Comments Urine Specific [place] (test code = 5811-5) <=1.005 1.010-1.02 5 [facility] [id number] 17:26:00* Test Item Value Reference Range Interpretation Comments Urine pH (test code = 81456-6) 6.5 5-7 [facility] Leukocyte Ptmyktoe3462-50-88 17:26:00* Test Item Value Reference Range Interpretation Comments Urine Leukocyte Esterase (test code = 67519-4) NEGATIVE NEGATIV E [facility] Qljuupj5485-07-01 17:26:00* Test Item Value Reference Range Interpretation Comments Urine Nitrite (test code = 86836-2) NEGATIVE NEGATIVE [facility] Jeapqbz5751-04-05 17:26:00* Test Item Value Reference Range Interpretation Comments Urine Protein (test code = 85350-4) NEGATIVE NEGATIVE [facility] Glucose (UA)2019-07-03 17:26:00* Test Item Value Reference Range Interpretation Comments Urine Glucose (UA) (test code = 80025-7) NEGATIVE NEGATIVE [facility] Nidxwxc2174-15-77 17:26:00* Test Item Value Reference Range Interpretation Comments Urine Ketones (test code = 97825-0) NEGATIVE NEGATIVE [facility] Gojmvlkoakcp6582-53-16 17:26:00* Test Item Value Reference Range Interpretation Comments Urine Urobilinogen (test code = 07800-5) 0.2 0.2-1 [facility] Vszxchpfu6586-60-54 17:26:00* Test Item Value Reference Range Interpretation Comments Urine Bilirubin (test code = 1977-8) NEGATIVE NEGATIVE [facility] Qdeax6752-77-19 17:26:00* Test Item Value Reference Range Interpretation Comments Urine Blood (test code = 74645-3) NEGATIVE NEGATIVE [facility] Yswkq1737-40-55 17:26:00* Test Item Value Reference Range Interpretation Comments Urine Color (test code = 5778-6) YELLOW YELLOW [facility] Irkklkq6659-50-49 17:26:00* Test Item Value Reference Range Interpretation Comments Urine Clarity (test code = 81091-3) CLEAR CLEAR [facility] Specific Proifev7521-09-59 17:26:00 * Test Item Value Reference Range Interpretation Comments Urine Specific [place] (test code = 5811-5) <=1.005 1.010-1.02 5 [facility] xS3041-12-29 17:26:00* Test Item Value Reference Range Interpretation Comments Urine pH (test code = 82623-5) 6.5 5-7 [facility] Leukocyte Nlymuluo6178-75-79 17:26:00* Test Item Value Reference Range Interpretation Comments Urine Leukocyte Esterase (test code = 32913-4) NEGATIVE NEGATIV E [facility] Ipcdauj0155-21-60 17:26:00* Test Item Value Reference Range Interpretation Comments Urine Nitrite (test code = 60357-2) NEGATIVE NEGATIVE [facility] Bstxgwq9952-97-36 17:26:00* Test Item Value Reference Range Interpretation Comments Urine Protein (test code = 28868-5) NEGATIVE NEGATIVE [facility] Glucose (UA)2019-07-03 17:26:00* Test Item Value Reference Range Interpretation Comments Urine Glucose (UA) (test code = 57268-2) NEGATIVE NEGATIVE [facility] Kupnqtw1423-74-35 17:26:00* Test Item Value Reference Range Interpretation Comments Urine Ketones (test code = 32029-6) NEGATIVE NEGATIVE [facility] Rfkkzzluvkdc9616-29-04 17:26:00* Test Item Value Reference Range Interpretation Comments Urine Urobilinogen (test code = 23868-1) 0.2 0.2-1 [facility] Yauznhqak9421-75-00 17:26:00* Test Item Value Reference Range Interpretation Comments Urine Bilirubin (test code = 1977-8) NEGATIVE NEGATIVE [facility] Ntfkb3979-21-63 17:26:00* Test Item Value Reference Range Interpretation Comments Urine Blood (test code = 62249-6) NEGATIVE NEGATIVE [facility] HospitalUrine human chorionic gonadotropin (hCG) dglqssijc0987-07-98 17:01:00* Test Item Value Reference Range Interpretation Comments Urine Test (test code = 2106-3) NEGATIVE NEGATIVE [facility] HospitalDifferential Total Cells Counted 2019-03-15 19:00:00* Test Item Value Reference Range Interpretation Comments Differential Total Cells Counted (test code = Differen tial Total Cells Counted) 100 [facility] HospitalNeutrophils % (Manual)2019-03-15 19:00:00 * Test Item Value Reference Range Interpretation Comments Neutrophils % (Manual) (test code = 45318-9) 48 40-74 [facility] HospitalLymphocytes % (Manual)2019-03-15 19:00:00 * Test Item Value Reference Range Interpretation Comments Lymphocytes % (Manual) (test code = 737-7) 42 19-48 [facility] HospitalMonocytes % (Manual)2019-03-15 19:00:00* Test Item Value Reference Range Interpretation Comments Monocytes % (Manual) (test code = 744-3) 6 3.4-9.0 [facility] HospitalEosinophils % (Manual)2019-03-15 19:00:00 * Test Item Value Reference Range Interpretation Comments Eosinophils % (Manual) (test code = 714-6) 1 0-7 [facility] HospitalReactive Ukwcuppkmtd3194-82-94 19:00:00* Test Item Value Reference Range Interpretation Comments Reactive Lymphocytes (test code = 54926-6) 3 [facility] HospitalDifferential Total Cells Counted 2019-03-15 19:00:00* Test Item Value Reference Range Interpretation Comments Differential Total Cells Counted (test code = Differen tial Total Cells Counted) 100 [facility] HospitalNeutrophils % (Manual)2019-03-15 19:00:00 * Test Item Value Reference Range Interpretation Comments Neutrophils % (Manual) (test code = 82722-5) 48 40-74 [facility] HospitalLymphocytes % (Manual)2019-03-15 19:00:00 * Test Item Value Reference Range Interpretation Comments Lymphocytes % (Manual) (test code = 737-7) 42 19-48 [facility] HospitalMonocytes % (Manual)2019-03-15 19:00:00* Test Item Value Reference Range Interpretation Comments Monocytes % (Manual) (test code = 744-3) 6 3.4-9.0 [facility] HospitalEosinophils % (Manual)2019-03-15 19:00:00 * Test Item Value Reference Range Interpretation Comments Eosinophils % (Manual) (test code = 714-6) 1 0-7 [facility]Reactive Yixmnxyhsxm4117-88-41 19:00:00* Test Item Value Reference Range Interpretation Comments Reactive Lymphocytes (test code = 28836-5) 3 [facility] HospitalDifferential Total Cells Counted 2019-03-15 19:00:00* Test Item Value Reference Range Interpretation Comments Differential Total Cells Counted (test code = Differsimin tial Total Cells Counted) 100 [facility] HospitalNeutrophils % (Manual)2019-03-15 19:00:00 * Test Item Value Reference Range Interpretation Comments Neutrophils % (Manual) (test code = 65942-9) 48 40-74 [facility] HospitalLymphocytes % (Manual)2019-03-15 19:00:00 * Test Item Value Reference Range Interpretation Comments Lymphocytes % (Manual) (test code = 737-7) 42 19-48 [facility] HospitalMonocytes % (Manual)2019-03-15 19:00:00* Test Item Value Reference Range Interpretation Comments Monocytes % (Manual) (test code = 744-3) 6 3.4-9.0 [facility] HospitalEosinophils % (Manual)2019-03-15 19:00:00 * Test Item Value Reference Range Interpretation Comments Eosinophils % (Manual) (test code = 714-6) 1 0-7 [facility] HospitalReactive Uaulsoxkcjy8500-96-52 19:00:00* Test Item Value Reference Range Interpretation Comments Reactive Lymphocytes (test code = 09666-3) 3 [facility] HospitalDifferential Total Cells Counted 2019-03-15 19:00:00* Test Item Value Reference Range Interpretation Comments Differential Total Cells Counted (test code = Differen tial Total Cells Counted) 100 [facility] HospitalNeutrophils % (Manual)2019-03-15 19:00:00 * Test Item Value Reference Range Interpretation Comments Neutrophils % (Manual) (test code = 96791-6) 48 40-74 [facility] HospitalLymphocytes % (Manual)2019-03-15 19:00:00 * Test Item Value Reference Range Interpretation Comments Lymphocytes % (Manual) (test code = 737-7) 42 19-48 [facility] HospitalMonocytes % (Manual)2019-03-15 19:00:00* Test Item Value Reference Range Interpretation Comments Monocytes % (Manual) (test code = 744-3) 6 3.4-9.0 [facility] HospitalEosinophils % (Manual)2019-03-15 19:00:00 * Test Item Value Reference Range Interpretation Comments Eosinophils % (Manual) (test code = 714-6) 1 0-7 [facility] HospitalReactive Hpkhwadgnsc4079-02-94 19:00:00* Test Item Value Reference Range Interpretation Comments Reactive Lymphocytes (test code = 44324-6) 3 [facility] HospitalDifferential Total Cells Counted 2019-03-15 19:00:00* Test Item Value Reference Range Interpretation Comments Differential Total Cells Counted (test code = Differen tial Total Cells Counted) 100 [facility] HospitalNeutrophils % (Manual)2019-03-15 19:00:00 * Test Item Value Reference Range Interpretation Comments Neutrophils % (Manual) (test code = 24087-6) 48 40-74 [facility] HospitalLymphocytes % (Manual)2019-03-15 19:00:00 * Test Item Value Reference Range Interpretation Comments Lymphocytes % (Manual) (test code = 737-7) 42 19-48 [facility] HospitalMonocytes % (Manual)2019-03-15 19:00:00* Test Item Value Reference Range Interpretation Comments Monocytes % (Manual) (test code = 744-3) 6 3.4-9.0 [facility] HospitalEosinophils % (Manual)2019-03-15 19:00:00 * Test Item Value Reference Range Interpretation Comments Eosinophils % (Manual) (test code = 714-6) 1 0-7 [facility] HospitalReactive Qlrhzanechn2013-78-99 19:00:00* Test Item Value Reference Range Interpretation Comments Reactive Lymphocytes (test code = 00025-0) 3 [facility] HospitalDifferential Total Cells Counted 2019-03-15 19:00:00* Test Item Value Reference Range Interpretation Comments Differential Total Cells Counted (test code = Differen tial Total Cells Counted) 100 [facility] HospitalNeutrophils % (Manual)2019-03-15 19:00:00 * Test Item Value Reference Range Interpretation Comments Neutrophils % (Manual) (test code = 86353-3) 48 40-74 [facility] HospitalLymphocytes % (Manual)2019-03-15 19:00:00 * Test Item Value Reference Range Interpretation Comments Lymphocytes % (Manual) (test code = 737-7) 42 19-48 [facility] HospitalMonocytes % (Manual)2019-03-15 19:00:00* Test Item Value Reference Range Interpretation Comments Monocytes % (Manual) (test code = 744-3) 6 3.4-9.0 [facility] HospitalEosinophils % (Manual)2019-03-15 19:00:00 * Test Item Value Reference Range Interpretation Comments Eosinophils % (Manual) (test code = 714-6) 1 0-7 [facility] HospitalReactive Fxhknuhbqtz9433-64-81 19:00:00* Test Item Value Reference Range Interpretation Comments Reactive Lymphocytes (test code = 61585-4) 3 [facility] HospitalCHEST SINGLE (PORTABLE)2019-03-15 18:05:00 [facility] [address] [address] Patient Name: STEPHANIE CAMERON MR #: [id number] : 1960 Age/Sex: 58/F Req #: [id number] Adm Physician: Ordered by: JUAN CARLOS CAT MD Report #: [id number] Location: ER Room/Bed: Procedure: [id number] D X/CHEST SINGLE (PORTABLE) Exam Date: Exam [...] radiographs, in 6-8 weeks, to evaluate for resolution . Signed by: Dr. Buddy Forde D.O., M.M.M. on 03/15/2019 6:07 PM Dictated By: BUDDY FORDE DO 06 Transcribed By: SCOTT on 03/15/191806 COPY TO: JUAN CARLOS CAT MD Creatine Kinase PJ0213-23-27 17:03:00* Test Item Value Reference Range Interpretation Comments Creatine Kinase MB (test code = 00127-8) 1.10 0-5.0 [place] 86321019-05-16 17:03:00* Test Item Value Reference Range Interpretation Comments Troponin I (test code = DJI2964) < 0.001 0-0.300 [facility] HospitalCreatine Kinase GD9252-91-33 17:03:00* Test Item Value Reference Range Interpretation Comments Creatine Kinase MB (test code = 74625-0) 1.10 0-5.0 [place] 86321019-05-16 17:03:00* Test Item Value Reference Range Interpretation Comments Troponin I (test code = KYP5759) < 0.001 0-0.300 [facility] HospitalCreatine Kinase JB5884-23-86 17:03:00* Test Item Value Reference Range Interpretation Comments Creatine Kinase MB (test code = 95225-5) 1.10 0-5.0 [place] 86321019-05-16 17:03:00* Test Item Value Reference Range Interpretation Comments Troponin I (test code = TWH6372) < 0.001 0-0.300 [facility] HospitalCreatine Kinase CQ7482-18-33 17:03:00* Test Item Value Reference Range Interpretation Comments Creatine Kinase MB (test code = 45103-9) 1.10 0-5.0 [place] 86321019-05-16 17:03:00* Test Item Value Reference Range Interpretation Comments Troponin I (test code = GGL8925) < 0.001 0-0.300 [facility] HospitalCreatine Kinase IL8856-12-41 17:03:00* Test Item Value Reference Range Interpretation Comments Creatine Kinase MB (test code = 25261-1) 1.10 0-5.0 [place] 86321019-05-16 17:03:00* Test Item Value Reference Range Interpretation Comments Troponin I (test code = ZWE2942) < 0.001 0-0.300 [facility] Xsrhv0604-70-44 16:57:00* Test Item Value Reference Range Interpretation Comments Sodium Level (test code = 2951-2) 132 136-145 L [facility] HospitalPotassium Cgkqa7812-46-30 16:57:00* Test Item Value Reference Range Interpretation Comments Potassium Level (test code = 2823-3) 4.9 3.5-5.1 [facility] HospitalChloride Xpttr3186-05-97 16:57:00* Test Item Value Reference Range Interpretation Comments Chloride Level (test code = 2075-0) 99 98-107 [facility] HospitalCarbon Dioxide Bwbzr7349-43-17 16:57:00* Test Item Value Reference Range Interpretation Comments Carbon Dioxide Level (test code = 2028-9) 22 22-29 [facility] HospitalAnion Khk1812-36-89 16:57:00* Test Item Value Reference Range Interpretation Comments Anion Gap (test code = 04774-6) 15.9 8-16 [facility] HospitalBlood Urea Ghjrhtmc1337-57-66 16:57:00* Test Item Value Reference Range Interpretation Comments Blood Urea Nitrogen (test code = 3094-0) 22 7-26 [facility] HospitalCreatinine2019-05-16 16:57:00* Test Item Value Reference Range Interpretation Comments Creatinine (test code = 2160-0) 1.00 0.57-1.11 [facility] HospitalBUN/Creatinine Orjdk8950-71-52 16:57:00* Test Item Value Reference Range Interpretation Comments BUN/Creatinine Ratio (test code = 3097-3) 22 6-25 [facility] HospitalEstimat Glomerular Filtration Rate 2019-03-15 16:57:00* Test Item Value Reference Range Interpretation Comments Estimat Glomerular Filtration Rate (test code = 003654176) 57 >60 L Ranges were taken from the National Kidney Disease Education Program and the [facility] Foundation literature.Reference ranges:60 or greater: Epyzcc44-96 ( for 3 consecutive months): Chronic kidney disease 15 or less: Kidney failureParkland Memorial HospitalGlucose Hmtqp9817-74-39 16:57:00* Test Item Value Reference Range Interpretation Comments Glucose Level (test code = FZC9466) 186 74-118 H [facility] HospitalCalcium Vbhbz5973-24-49 16:57:00* Test Item Value Reference Range Interpretation Comments Calcium Level (test code = 21696-5) 10.1 8.4-10.2 [facility] HospitalTotal Jtoievonl4088-07-69 16:57:00* Test Item Value Reference Range Interpretation Comments Total Bilirubin (test code = 1975-2) 0.3 0.2-1.2 [facility] HospitalAspartate Amino Transf (AST/SGOT) 2019-03-15 16:57:00* Test Item Value Reference Range Interpretation Comments Aspartate Amino Transf (AST/SGOT) (test code = Aspartate Amino Transf (AST/SGOT)) 11 5-34 [facility] HospitalAlanine Aminotransferase (ALT/SGPT) 2019-03-15 16:57:00* Test Item Value Reference Range Interpretation Comments Alanine Aminotransferase (ALT/SGPT) (test code = 1742-6) 9 0-55 [facility] HospitalTotal Atbtpck9247-09-28 16:57:00* Test Item Value Reference Range Interpretation Comments Total Protein (test code = 2885-2) 7.0 6.5-8.1 [facility] HospitalAlbumin2019-05-16 16:57:00* Test Item Value Reference Range Interpretation Comments Albumin (test code = 1751-7) 3.5 3.5-5.0 [facility] HospitalGlobulin2019-05-16 16:57:00* Test Item Value Reference Range Interpretation Comments Globulin (test code = 93289-2) 3.5 2.3-3.5 [facility] HospitalAlbumin/Globulin Zqykt5955-18-10 16:57:00 * Test Item Value Reference Range Interpretation Comments Albumin/Globulin Ratio (test code = 1759-0) 1.0 0.8-2.0 [facility] HospitalAlkaline Lkgffjbblwi7928-46-57 16:57:00* Test Item Value Reference Range Interpretation Comments Alkaline Phosphatase (test code = 6768-6) 156 40-150 H [facility] HospitalCreatine Rxvkea1107-31-33 16:57:00* Test Item Value Reference Range Interpretation Comments Creatine Kinase (test code = 2157-6) 91 29-168 [facility] Ifxib6531-73-06 16:57:00* Test Item Value Reference Range Interpretation Comments Sodium Level (test code = 2951-2) 132 136-145 L [facility] HospitalPotassium Rqbmx9086-49-47 16:57:00* Test Item Value Reference Range Interpretation Comments Potassium Level (test code = 2823-3) 4.9 3.5-5.1 [facility] HospitalChloride Hznke0427-59-56 16:57:00* Test Item Value Reference Range Interpretation Comments Chloride Level (test code = 2075-0) 99 98-107 [facility] HospitalCarbon Dioxide Ihacp3414-57-99 16:57:00* Test Item Value Reference Range Interpretation Comments Carbon Dioxide Level (test code = 2028-9) 22 22-29 [facility] HospitalAnion Ktn7963-27-47 16:57:00* Test Item Value Reference Range Interpretation Comments Anion Gap (test code = 36444-5) 15.9 8-16 [facility] HospitalBlood Urea Pwwhkscy0695-77-69 16:57:00* Test Item Value Reference Range Interpretation Comments Blood Urea Nitrogen (test code = 3094-0) 22 7-26 [facility] HospitalCreatinine2019-05-16 16:57:00* Test Item Value Reference Range Interpretation Comments Creatinine (test code = 2160-0) 1.00 0.57-1.11 [facility] HospitalBUN/Creatinine Yrwbo2186-43-43 16:57:00* Test Item Value Reference Range Interpretation Comments BUN/Creatinine Ratio (test code = 3097-3) 22 6-25 [facility] HospitalEstimat Glomerular Filtration Rate 2019-03-15 16:57:00* Test Item Value Reference Range Interpretation Comments Estimat Glomerular Filtration Rate (test code = 886592282) 57 >60 L Ranges were taken from the National Kidney Disease Education Program and the [place] [place] [employer] literature.Reference ranges:60 or greater: Ufynbr79-15 ( for 3 consecutive months): Chronic kidney disease 15 or less: Kidney failureParkland Memorial HospitalGlucose Gdafp2880-83-79 16:57:00* Test Item Value Reference Range Interpretation Comments Glucose Level (test code = BEI6761) 186 74-118 H [facility] HospitalCalcium Wtqdm9287-77-45 16:57:00* Test Item Value Reference Range Interpretation Comments Calcium Level (test code = 81892-8) 10.1 8.4-10.2 [facility] HospitalTotal Opypitfag5776-35-47 16:57:00* Test Item Value Reference Range Interpretation Comments Total Bilirubin (test code = 1975-2) 0.3 0.2-1.2 [facility] HospitalAspartate Amino Transf (AST/SGOT) 2019-03-15 16:57:00* Test Item Value Reference Range Interpretation Comments Aspartate Amino Transf (AST/SGOT) (test code = Aspartate Amino Transf (AST/SGOT)) 11 5-34 [facility] HospitalAlanine Aminotransferase (ALT/SGPT) 2019-03-15 16:57:00* Test Item Value Reference Range Interpretation Comments Alanine Aminotransferase (ALT/SGPT) (test code = 1742-6) 9 0-55 [facility] HospitalTotal Tgzzoru5307-95-79 16:57:00* Test Item Value Reference Range Interpretation Comments Total Protein (test code = 2885-2) 7.0 6.5-8.1 [facility] HospitalAlbumin2019-05-16 16:57:00* Test Item Value Reference Range Interpretation Comments Albumin (test code = 1751-7) 3.5 3.5-5.0 [facility] HospitalGlobulin2019-05-16 16:57:00* Test Item Value Reference Range Interpretation Comments Globulin (test code = 37242-7) 3.5 2.3-3.5 [facility] HospitalAlbumin/Globulin Wjuzg3186-56-94 16:57:00 * Test Item Value Reference Range Interpretation Comments Albumin/Globulin Ratio (test code = 1759-0) 1.0 0.8-2.0 [facility] HospitalAlkaline Womfdfcnkkp3765-06-95 16:57:00* Test Item Value Reference Range Interpretation Comments Alkaline Phosphatase (test code = 6768-6) 156 40-150 H [facility] HospitalCreatine Mtflmw6595-96-45 16:57:00* Test Item Value Reference Range Interpretation Comments Creatine Kinase (test code = 2157-6) 91 29-168 [facility] Crdyr7342-26-54 16:57:00* Test Item Value Reference Range Interpretation Comments Sodium Level (test code = 2951-2) 132 136-145 L [facility] HospitalPotassium Ukpzt2091-68-56 16:57:00* Test Item Value Reference Range Interpretation Comments Potassium Level (test code = 2823-3) 4.9 3.5-5.1 [facility] HospitalChloride Oytaq6785-50-15 16:57:00* Test Item Value Reference Range Interpretation Comments Chloride Level (test code = 2075-0) 99 98-107 [facility] HospitalCarbon Dioxide Wfred2586-27-67 16:57:00* Test Item Value Reference Range Interpretation Comments Carbon Dioxide Level (test code = 2028-9) 22 22-29 [facility] HospitalAnion Qhe3911-31-82 16:57:00* Test Item Value Reference Range Interpretation Comments Anion Gap (test code = 06296-3) 15.9 8-16 [facility] HospitalBlood Urea Sjeprjjb3235-09-50 16:57:00* Test Item Value Reference Range Interpretation Comments Blood Urea Nitrogen (test code = 3094-0) 22 7-26 [facility] HospitalCreatinine2019-05-16 16:57:00* Test Item Value Reference Range Interpretation Comments Creatinine (test code = 2160-0) 1.00 0.57-1.11 [facility] HospitalBUN/Creatinine Iuqvy7982-24-61 16:57:00* Test Item Value Reference Range Interpretation Comments BUN/Creatinine Ratio (test code = 3097-3) 22 6-[address] [facility] Rate 2019-03-15 16:57:00* Test Item Value Reference Range Interpretation Comments Estimat Glomerular Filtration Rate (test code = 790005014) 57 >60 L Ranges were taken from the National Kidney Disease Education Program and the [facility] Foundation literature.Reference ranges:60 or greater: Hreenx82-35 ( for 3 consecutive months): Chronic kidney disease 15 or less: Kidney failureParkland Memorial HospitalGlucose Fflhl3102-40-28 16:57:00* Test Item Value Reference Range Interpretation Comments Glucose Level (test code = OIT5628) 186 74-118 H [facility] HospitalCalcium Knglr9521-01-92 16:57:00* Test Item Value Reference Range Interpretation Comments Calcium Level (test code = 86327-8) 10.1 8.4-10.2 [facility] HospitalTotal Gmybmrmyu3532-96-10 16:57:00* Test Item Value Reference Range Interpretation Comments Total Bilirubin (test code = 1975-2) 0.3 0.2-1.2 [facility] HospitalAspartate Amino Transf (AST/SGOT) 2019-03-15 16:57:00* Test Item Value Reference Range Interpretation Comments Aspartate Amino Transf (AST/SGOT) (test code = Aspartate Amino Transf (AST/SGOT)) 11 5-34 [facility] HospitalAlanine Aminotransferase (ALT/SGPT) 2019-03-15 16:57:00* Test Item Value Reference Range Interpretation Comments Alanine Aminotransferase (ALT/SGPT) (test code = 1742-6) 9 0-55 [facility] HospitalTotal Eszxqep3501-33-76 16:57:00* Test Item Value Reference Range Interpretation Comments Total Protein (test code = 2885-2) 7.0 6.5-8.1 [facility] HospitalAlbumin2019-05-16 16:57:00* Test Item Value Reference Range Interpretation Comments Albumin (test code = 1751-7) 3.5 3.5-5.0 [facility] HospitalGlobulin2019-05-16 16:57:00* Test Item Value Reference Range Interpretation Comments Globulin (test code = 63321-5) 3.5 2.3-3.5 [facility] HospitalAlbumin/Globulin Rhexw3201-85-63 16:57:00 * Test Item Value Reference Range Interpretation Comments Albumin/Globulin Ratio (test code = 1759-0) 1.0 0.8-2.0 [facility] HospitalAlkaline Yygoujnfkhm3976-40-28 16:57:00* Test Item Value Reference Range Interpretation Comments Alkaline Phosphatase (test code = 6768-6) 156 40-150 H [facility] HospitalCreatine Ewttim9109-91-18 16:57:00* Test Item Value Reference Range Interpretation Comments Creatine Kinase (test code = 2157-6) 91 29-168 [facility] Ofclw9450-83-27 16:57:00* Test Item Value Reference Range Interpretation Comments Sodium Level (test code = 2951-2) 132 136-145 L [facility] HospitalPotassium Yfnvi5191-89-48 16:57:00* Test Item Value Reference Range Interpretation Comments Potassium Level (test code = 2823-3) 4.9 3.5-5.1 [facility] HospitalChloride Hqecq7800-82-70 16:57:00* Test Item Value Reference Range Interpretation Comments Chloride Level (test code = 2075-0) 99 98-107 [facility] HospitalCarbon Dioxide Fxfce8750-00-95 16:57:00* Test Item Value Reference Range Interpretation Comments Carbon Dioxide Level (test code = 2028-9) 22 22-29 [facility] HospitalAnion Ucg5752-65-57 16:57:00* Test Item Value Reference Range Interpretation Comments Anion Gap (test code = 92108-4) 15.9 8-16 [facility] HospitalBlood Urea Qyseledt7427-25-51 16:57:00* Test Item Value Reference Range Interpretation Comments Blood Urea Nitrogen (test code = 3094-0) 22 7-26 [facility] HospitalCreatinine2019-05-16 16:57:00* Test Item Value Reference Range Interpretation Comments Creatinine (test code = 2160-0) 1.00 0.57-1.11 [facility] HospitalBUN/Creatinine Njinp3387-16-05 16:57:00* Test Item Value Reference Range Interpretation Comments BUN/Creatinine Ratio (test code = 3097-3) 22 6-25 [facility] HospitalEstimat Glomerular Filtration Rate 2019-03-15 16:57:00* Test Item Value Reference Range Interpretation Comments Estimat Glomerular Filtration Rate (test code = 802794276) 57 >60 L Ranges were taken from the National Kidney Disease Education Program and the [facility] Kidney Foundation literature.Reference ranges:60 or greater: Cymrfh42-47 ( for 3 consecutive months): Chronic kidney disease 15 or less: Kidney failureParkland Memorial HospitalGlucose Nvtwd2093-27-16 16:57:00* Test Item Value Reference Range Interpretation Comments Glucose Level (test code = PXH9801) 186 74-118 H [facility] HospitalCalcium Xnsno9508-29-51 16:57:00* Test Item Value Reference Range Interpretation Comments Calcium Level (test code = 34365-7) 10.1 8.4-10.2 [facility] HospitalTotal Olrvlziyc7788-94-07 16:57:00* Test Item Value Reference Range Interpretation Comments Total Bilirubin (test code = 1975-2) 0.3 0.2-1.2 [facility] HospitalAspartate Amino Transf (AST/SGOT) 2019-03-15 16:57:00* Test Item Value Reference Range Interpretation Comments Aspartate Amino Transf (AST/SGOT) (test code = Aspartate Amino Transf (AST/SGOT)) 11 5-34 [facility] HospitalAlanine Aminotransferase (ALT/SGPT) 2019-03-15 16:57:00* Test Item Value Reference Range Interpretation Comments Alanine Aminotransferase (ALT/SGPT) (test code = 1742-6) 9 0-55 [facility] HospitalTotal Wfidrcr8051-33-07 16:57:00* Test Item Value Reference Range Interpretation Comments Total Protein (test code = 2885-2) 7.0 6.5-8.1 [facility] HospitalAlbumin2019-05-16 16:57:00* Test Item Value Reference Range Interpretation Comments Albumin (test code = 1751-7) 3.5 3.5-5.0 [facility] HospitalGlobulin2019-05-16 16:57:00* Test Item Value Reference Range Interpretation Comments Globulin (test code = 44213-1) 3.5 2.3-3.5 [facility] HospitalAlbumin/Globulin Cfwbk7019-75-74 16:57:00 * Test Item Value Reference Range Interpretation Comments Albumin/Globulin Ratio (test code = 1759-0) 1.0 0.8-2.0 [facility] HospitalAlkaline Tibhkbxhezg0769-56-63 16:57:00* Test Item Value Reference Range Interpretation Comments Alkaline Phosphatase (test code = 6768-6) 156 40-150 H [facility] HospitalCreatine Warbfh9281-11-23 16:57:00* Test Item Value Reference Range Interpretation Comments Creatine Kinase (test code = 2157-6) 91 29-168 [facility] HospitalTotal Isesjnwjt6636-14-74 16:57:00* Test Item Value Reference Range Interpretation Comments Total Bilirubin (test code = 1975-2) 0.3 0.2-1.2 [facility] HospitalAspartate Amino Transf (AST/SGOT) 2019-03-15 16:57:00* Test Item Value Reference Range Interpretation Comments Aspartate Amino Transf (AST/SGOT) (test code = Aspartate Amino Transf (AST/SGOT)) 11 5-34 [facility] HospitalAlanine Aminotransferase (ALT/SGPT) 2019-03-15 16:57:00* Test Item Value Reference Range Interpretation Comments Alanine Aminotransferase (ALT/SGPT) (test code = 1742-6) 9 0-55 [facility] HospitalTotal Gsgtpce1966-41-95 16:57:00* Test Item Value Reference Range Interpretation Comments Total Protein (test code = 2885-2) 7.0 6.5-8.1 [facility] HospitalAlbumin2019-05-16 16:57:00* Test Item Value Reference Range Interpretation Comments Albumin (test code = 1751-7) 3.5 3.5-5.0 [facility] HospitalGlobulin2019-05-16 16:57:00* Test Item Value Reference Range Interpretation Comments Globulin (test code = 60505-0) 3.5 2.3-3.5 [facility] HospitalAlbumin/Globulin Thelt7692-36-28 16:57:00 * Test Item Value Reference Range Interpretation Comments Albumin/Globulin Ratio (test code = 1759-0) 1.0 0.8-2.0 [facility] HospitalAlkaline Wzoftgfxtvz6779-86-80 16:57:00* Test Item Value Reference Range Interpretation Comments Alkaline Phosphatase (test code = 6768-6) 156 40-150 H [facility] HospitalCreatine Wnlmnz9057-07-33 16:57:00* Test Item Value Reference Range Interpretation Comments Creatine Kinase (test code = 2157-6) 91 29-168 [facility] HospitalWhite Blood Ufwwc3777-10-46 16:34:00* Test Item Value Reference Range Interpretation Comments White Blood Count (test code = 6690-2) 11.61 4.8-10.8 H [facility] HospitalRed Blood Odgfs1817-41-98 16:34:00* Test Item Value Reference Range Interpretation Comments Red Blood Count (test code = 789-8) 4.14 3.6-5.1 [facility] HospitalHemoglobin2019-05-16 16:34:00* Test Item Value Reference Range Interpretation Comments Hemoglobin (test code = 49255-2) 10.9 12.0-16.0 L [facility] HospitalHematocrit2019-05-16 16:34:00* Test Item Value Reference Range Interpretation Comments Hematocrit (test code = 4544-3) 34.0 34.2-44.1 L [facility] HospitalMean Corpuscular Gteyoe9327-14-63 16:34:00* Test Item Value Reference Range Interpretation Comments Mean Corpuscular Volume (test code = 787-2) 82.1 81-99 [facility] HospitalMean Corpuscular Evzkbzmden3454-84-76 16:34:00* Test Item Value Reference Range Interpretation Comments Mean Corpuscular Hemoglobin (test code = 785-6) 26.3 28-32 L [facility] HospitalMean Corpuscular Hemoglobin Concent 2019-03-15 16:34:00* Test Item Value Reference Range Interpretation Comments Mean Corpuscular Hemoglobin Concent (test code = 786-4) 32.1 31-35 [facility] HospitalRed Cell Distribution Krymm6634-91-84 16:34:00* Test Item Value Reference Range Interpretation Comments Red Cell Distribution Width (test code = 98275-4) 16.5 11.7 -14.4 H [facility] HospitalPlatelet Focuz7741-48-09 16:34:00* Test Item Value Reference Range Interpretation Comments Platelet Count (test code = 777-3) 399 140-360 H [facility] HospitalNeutrophils (%) (Auto)2019-03-15 16:34:00 * Test Item Value Reference Range Interpretation Comments Neutrophils (%) (Auto) (test code = 60637-9) 53.9 38.7-80.0 [facility] HospitalLymphocytes (%) (Auto)2019-03-15 16:34:00 * Test Item Value Reference Range Interpretation Comments Lymphocytes (%) (Auto) (test code = 736-9) 40.0 18.0-39.1 H [facility] HospitalMonocytes (%) (Auto)2019-03-15 16:34:00* Test Item Value Reference Range Interpretation Comments Monocytes (%) (Auto) (test code = 5905-5) 4.5 4.4-11.3 [facility] HospitalEosinophils (%) (Auto)2019-03-15 16:34:00 * Test Item Value Reference Range Interpretation Comments Eosinophils (%) (Auto) (test code = 713-8) 0.7 0.0-6.0 [facility] HospitalBasophils (%) (Auto)2019-03-15 16:34:00* Test Item Value Reference Range Interpretation Comments Basophils (%) (Auto) (test code = 706-2) 0.5 0.0-1.0 [facility] HospitalIM GRANULOCYTES %2019-03-15 16:34:00* Test Item Value Reference Range Interpretation Comments IM GRANULOCYTES % (test code = IM GRANULOCYTES %) 0.4 0.0- 1.0 [facility] HospitalNeutrophils # (Auto)2019-03-15 16:34:00* Test Item Value Reference Range Interpretation Comments Neutrophils # (Auto) (test code = 751-8) 6.3 2.1-6.9 [facility] HospitalLymphocytes # (Auto)2019-03-15 16:34:00* Test Item Value Reference Range Interpretation Comments Lymphocytes # (Auto) (test code = 68209-3) 4.6 1.0-3.2 H [facility] HospitalMonocytes # (Auto)2019-03-15 16:34:00* Test Item Value Reference Range Interpretation Comments Monocytes # (Auto) (test code = 742-7) 0.5 0.2-0.8 [facility] HospitalEosinophils # (Auto)2019-03-15 16:34:00* Test Item Value Reference Range Interpretation Comments Eosinophils # (Auto) (test code = 711-2) 0.1 0.0-0.4 [facility] HospitalBasophils # (Auto)2019-03-15 16:34:00* Test Item Value Reference Range Interpretation Comments Basophils # (Auto) (test code = 704-7) 0.1 0.0-0.1 [facility] HospitalAbsolute Immature Granulocyte (auto 2019-03-15 16:34:00* Test Item Value Reference Range Interpretation Comments Absolute Immature Granulocyte (auto (romelia t code = Absolute Immature Granulocyte (auto) 0.05 0-0.1 [facility] HospitalWhite Blood Hzfsn1513-32-87 16:34:00* Test Item Value Reference Range Interpretation Comments White Blood Count (test code = 6690-2) 11.61 4.8-10.8 H [facility] HospitalRed Blood Vsrnv1679-71-80 16:34:00* Test Item Value Reference Range Interpretation Comments Red Blood Count (test code = 789-8) 4.14 3.6-5.1 [facility] HospitalHemoglobin2019-05-16 16:34:00* Test Item Value Reference Range Interpretation Comments Hemoglobin (test code = 45514-7) 10.9 12.0-16.0 L [facility] HospitalHematocrit2019-05-16 16:34:00* Test Item Value Reference Range Interpretation Comments Hematocrit (test code = 4544-3) 34.0 34.2-44.1 L [facility] HospitalMean Corpuscular Rsuqgw7725-62-80 16:34:00* Test Item Value Reference Range Interpretation Comments Mean Corpuscular Volume (test code = 787-2) 82.1 81-99 [facility] HospitalMean Corpuscular Jwuinhzhxf8854-59-75 16:34:00* Test Item Value Reference Range Interpretation Comments Mean Corpuscular Hemoglobin (test code = 785-6) 26.3 28-32 L [facility] HospitalMean Corpuscular Hemoglobin Concent 2019-03-15 16:34:00* Test Item Value Reference Range Interpretation Comments Mean Corpuscular Hemoglobin Concent (test code = 786-4) 32.1 31-35 [facility] HospitalRed Cell Distribution Wayic9583-50-54 16:34:00* Test Item Value Reference Range Interpretation Comments Red Cell Distribution Width (test code = 47787-0) 16.5 11.7 -14.4 H [facility] HospitalPlatelet Zsxwb2336-15-66 16:34:00* Test Item Value Reference Range Interpretation Comments Platelet Count (test code = 777-3) 399 140-360 H [facility] HospitalNeutrophils (%) (Auto)2019-03-15 16:34:00 * Test Item Value Reference Range Interpretation Comments Neutrophils (%) (Auto) (test code = 69773-6) 53.9 38.7-80.0 [facility] HospitalLymphocytes (%) (Auto)2019-03-15 16:34:00 * Test Item Value Reference Range Interpretation Comments Lymphocytes (%) (Auto) (test code = 736-9) 40.0 18.0-39.1 H [facility] HospitalMonocytes (%) (Auto)2019-03-15 16:34:00* Test Item Value Reference Range Interpretation Comments Monocytes (%) (Auto) (test code = 5905-5) 4.5 4.4-11.3 [facility] HospitalEosinophils (%) (Auto)2019-03-15 16:34:00 * Test Item Value Reference Range Interpretation Comments Eosinophils (%) (Auto) (test code = 713-8) 0.7 0.0-6.0 [facility] HospitalBasophils (%) (Auto)2019-03-15 16:34:00* Test Item Value Reference Range Interpretation Comments Basophils (%) (Auto) (test code = 706-2) 0.5 0.0-1.0 [facility] HospitalIM GRANULOCYTES %2019-03-15 16:34:00* Test Item Value Reference Range Interpretation Comments IM GRANULOCYTES % (test code = IM GRANULOCYTES %) 0.4 0.0- 1.0 [facility] HospitalNeutrophils # (Auto)2019-03-15 16:34:00* Test Item Value Reference Range Interpretation Comments Neutrophils # (Auto) (test code = 751-8) 6.3 2.1-6.9 [facility] HospitalLymphocytes # (Auto)2019-03-15 16:34:00* Test Item Value Reference Range Interpretation Comments Lymphocytes # (Auto) (test code = 16239-1) 4.6 1.0-3.2 H [facility] HospitalMonocytes # (Auto)2019-03-15 16:34:00* Test Item Value Reference Range Interpretation Comments Monocytes # (Auto) (test code = 742-7) 0.5 0.2-0.8 [facility] HospitalEosinophils # (Auto)2019-03-15 16:34:00* Test Item Value Reference Range Interpretation Comments Eosinophils # (Auto) (test code = 711-2) 0.1 0.0-0.4 [facility] HospitalBasophils # (Auto)2019-03-15 16:34:00* Test Item Value Reference Range Interpretation Comments Basophils # (Auto) (test code = 704-7) 0.1 0.0-0.1 [facility] HospitalAbsolute Immature Granulocyte (auto 2019-03-15 16:34:00* Test Item Value Reference Range Interpretation Comments Absolute Immature Granulocyte (auto (romelia t code = Absolute Immature Granulocyte (auto) 0.05 0-0.1 [facility] HospitalWhite Blood Wqfrs8733-73-77 16:34:00* Test Item Value Reference Range Interpretation Comments White Blood Count (test code = 6690-2) 11.61 4.8-10.8 H [facility] HospitalRed Blood Ltkkd8193-03-96 16:34:00* Test Item Value Reference Range Interpretation Comments Red Blood Count (test code = 789-8) 4.14 3.6-5.1 [facility] HospitalHemoglobin2019-05-16 16:34:00* Test Item Value Reference Range Interpretation Comments Hemoglobin (test code = 63380-0) 10.9 12.0-16.0 L [facility] HospitalHematocrit2019-05-16 16:34:00* Test Item Value Reference Range Interpretation Comments Hematocrit (test code = 4544-3) 34.0 34.2-44.1 L [facility] HospitalMean Corpuscular Vgqccf0960-63-59 16:34:00* Test Item Value Reference Range Interpretation Comments Mean Corpuscular Volume (test code = 787-2) 82.1 81-99 [facility] HospitalMean Corpuscular Amxdrudjxv0421-68-69 16:34:00* Test Item Value Reference Range Interpretation Comments Mean Corpuscular Hemoglobin (test code = 785-6) 26.3 28-32 L [facility] HospitalMean Corpuscular Hemoglobin Concent 2019-03-15 16:34:00* Test Item Value Reference Range Interpretation Comments Mean Corpuscular Hemoglobin Concent (test code = 786-4) 32.1 31-35 [facility] HospitalRed Cell Distribution Hovfo9474-12-90 16:34:00* Test Item Value Reference Range Interpretation Comments Red Cell Distribution Width (test code = 05991-5) 16.5 11.7 -14.4 H [facility] HospitalPlatelet Hsuxb3172-53-87 16:34:00* Test Item Value Reference Range Interpretation Comments Platelet Count (test code = 777-3) 399 140-360 H [facility] HospitalNeutrophils (%) (Auto)2019-03-15 16:34:00 * Test Item Value Reference Range Interpretation Comments Neutrophils (%) (Auto) (test code = 97282-5) 53.9 38.7-80.0 [facility] HospitalLymphocytes (%) (Auto)2019-03-15 16:34:00 * Test Item Value Reference Range Interpretation Comments Lymphocytes (%) (Auto) (test code = 736-9) 40.0 18.0-39.1 H [facility] HospitalMonocytes (%) (Auto)2019-03-15 16:34:00* Test Item Value Reference Range Interpretation Comments Monocytes (%) (Auto) (test code = 5905-5) 4.5 4.4-11.3 [facility] HospitalEosinophils (%) (Auto)2019-03-15 16:34:00 * Test Item Value Reference Range Interpretation Comments Eosinophils (%) (Auto) (test code = 713-8) 0.7 0.0-6.0 [facility] HospitalBasophils (%) (Auto)2019-03-15 16:34:00* Test Item Value Reference Range Interpretation Comments Basophils (%) (Auto) (test code = 706-2) 0.5 0.0-1.0 [facility] HospitalIM GRANULOCYTES %2019-03-15 16:34:00* Test Item Value Reference Range Interpretation Comments IM GRANULOCYTES % (test code = IM GRANULOCYTES %) 0.4 0.0- 1.0 [facility] HospitalNeutrophils # (Auto)2019-03-15 16:34:00* Test Item Value Reference Range Interpretation Comments Neutrophils # (Auto) (test code = 751-8) 6.3 2.1-6.9 [facility] HospitalLymphocytes # (Auto)2019-03-15 16:34:00* Test Item Value Reference Range Interpretation Comments Lymphocytes # (Auto) (test code = 97372-1) 4.6 1.0-3.2 H [facility] HospitalMonocytes # (Auto)2019-03-15 16:34:00* Test Item Value Reference Range Interpretation Comments Monocytes # (Auto) (test code = 742-7) 0.5 0.2-0.8 [facility] HospitalEosinophils # (Auto)2019-03-15 16:34:00* Test Item Value Reference Range Interpretation Comments Eosinophils # (Auto) (test code = 711-2) 0.1 0.0-0.4 [facility] HospitalBasophils # (Auto)2019-03-15 16:34:00* Test Item Value Reference Range Interpretation Comments Basophils # (Auto) (test code = 704-7) 0.1 0.0-0.1 [facility] HospitalAbsolute Immature Granulocyte (auto 2019-03-15 16:34:00* Test Item Value Reference Range Interpretation Comments Absolute Immature Granulocyte (auto (romelia t code = Absolute Immature Granulocyte (auto) 0.05 0-0.1 [facility] HospitalWhite Blood Mhxzc9112-91-52 16:34:00* Test Item Value Reference Range Interpretation Comments White Blood Count (test code = 6690-2) 11.61 4.8-10.8 H [facility] HospitalRed Blood Gunyq1038-92-67 16:34:00* Test Item Value Reference Range Interpretation Comments Red Blood Count (test code = 789-8) 4.14 3.6-5.1 [facility] HospitalHemoglobin2019-05-16 16:34:00* Test Item Value Reference Range Interpretation Comments Hemoglobin (test code = 52891-7) 10.9 12.0-16.0 L [facility] HospitalHematocrit2019-05-16 16:34:00* Test Item Value Reference Range Interpretation Comments Hematocrit (test code = 4544-3) 34.0 34.2-44.1 L [facility] HospitalMean Corpuscular Asqmdc7477-76-46 16:34:00* Test Item Value Reference Range Interpretation Comments Mean Corpuscular Volume (test code = 787-2) 82.1 81-99 [facility] HospitalMean Corpuscular Cdopznzvpo6962-80-70 16:34:00* Test Item Value Reference Range Interpretation Comments Mean Corpuscular Hemoglobin (test code = 785-6) 26.3 28-32 L [facility] HospitalMean Corpuscular Hemoglobin Concent 2019-03-15 16:34:00* Test Item Value Reference Range Interpretation Comments Mean Corpuscular Hemoglobin Concent (test code = 786-4) 32.1 31-35 [facility] HospitalRed Cell Distribution Tmtho3313-66-51 16:34:00* Test Item Value Reference Range Interpretation Comments Red Cell Distribution Width (test code = 39534-6) 16.5 11.7 -14.4 H [facility] HospitalPlatelet Tljbi7176-61-85 16:34:00* Test Item Value Reference Range Interpretation Comments Platelet Count (test code = 777-3) 399 140-360 H [facility] HospitalNeutrophils (%) (Auto)2019-03-15 16:34:00 * Test Item Value Reference Range Interpretation Comments Neutrophils (%) (Auto) (test code = 97218-6) 53.9 38.7-80.0 [facility] HospitalLymphocytes (%) (Auto)2019-03-15 16:34:00 * Test Item Value Reference Range Interpretation Comments Lymphocytes (%) (Auto) (test code = 736-9) 40.0 18.0-39.1 H [facility] HospitalMonocytes (%) (Auto)2019-03-15 16:34:00* Test Item Value Reference Range Interpretation Comments Monocytes (%) (Auto) (test code = 5905-5) 4.5 4.4-11.3 [facility] HospitalEosinophils (%) (Auto)2019-03-15 16:34:00 * Test Item Value Reference Range Interpretation Comments Eosinophils (%) (Auto) (test code = 713-8) 0.7 0.0-6.0 [facility] HospitalBasophils (%) (Auto)2019-03-15 16:34:00* Test Item Value Reference Range Interpretation Comments Basophils (%) (Auto) (test code = 706-2) 0.5 0.0-1.0 [facility] HospitalIM GRANULOCYTES %2019-03-15 16:34:00* Test Item Value Reference Range Interpretation Comments IM GRANULOCYTES % (test code = IM GRANULOCYTES %) 0.4 0.0- 1.0 [facility] HospitalNeutrophils # (Auto)2019-03-15 16:34:00* Test Item Value Reference Range Interpretation Comments Neutrophils # (Auto) (test code = 751-8) 6.3 2.1-6.9 [facility] HospitalLymphocytes # (Auto)2019-03-15 16:34:00* Test Item Value Reference Range Interpretation Comments Lymphocytes # (Auto) (test code = 89749-2) 4.6 1.0-3.2 H [facility] HospitalMonocytes # (Auto)2019-03-15 16:34:00* Test Item Value Reference Range Interpretation Comments Monocytes # (Auto) (test code = 742-7) 0.5 0.2-0.8 [facility] HospitalEosinophils # (Auto)2019-03-15 16:34:00* Test Item Value Reference Range Interpretation Comments Eosinophils # (Auto) (test code = 711-2) 0.1 0.0-0.4 [facility] HospitalBasophils # (Auto)2019-03-15 16:34:00* Test Item Value Reference Range Interpretation Comments Basophils # (Auto) (test code = 704-7) 0.1 0.0-0.1 [facility] HospitalAbsolute Immature Granulocyte (auto 2019-03-15 16:34:00* Test Item Value Reference Range Interpretation Comments Absolute Immature Granulocyte (auto (romelia t code = Absolute Immature Granulocyte (auto) 0.05 0-0.1 [facility] Iyuymrz5993-13-30 15:47:00* Test Item Value Reference Range Interpretation Comments Bedside Glucose (test code = 70204-9) 234 70-120 H Meter ID: [id number] [facility] Glucose 2019-03-07 15:47:00* Test Item Value Reference Range Interpretation Comments Bedside Glucose (test code = 98300-8) 234 70-120 H Meter ID: [id number] [facility] Glucose 2019-03-07 15:47:00* Test Item Value Reference Range Interpretation Comments Bedside Glucose (test code = 77118-0) 234 70-120 H Meter ID: [id number] 2019-03-07 15:47:00* Test Item Value Reference Range Interpretation Comments Bedside Glucose (test code = 81822-9) 234 70-120 H Meter ID: [id number]ucose 2019-03-07 15:47:00* Test Item Value Reference Range Interpretation Comments Bedside Glucose (test code = 84157-1) 234 70-120 H Meter ID: [id number] [facility] HospitalUrine MMS1448-70-19 15:24:00* Test Item Value Reference Range Interpretation Comments Urine WBC (test code = 5821-4) NONE 0-5 [facility] HospitalUrine USX0819-56-06 15:24:00* Test Item Value Reference Range Interpretation Comments Urine RBC (test code = 18062-9) NONE 0-5 [facility] HospitalUrine Lpyebnbz2370-26-07 15:24:00* Test Item Value Reference Range Interpretation Comments Urine Bacteria (test code = 80278-4) MODERATE NONE H [facility] HospitalUrine Epithelial Blxpd3346-57-52 15:24:00 * Test Item Value Reference Range Interpretation Comments Urine Epithelial Cells (test code = 81574-5) MODERATE NONE [facility] HospitalUrine EZT8019-76-13 15:24:00* Test Item Value Reference Range Interpretation Comments Urine WBC (test code = 5821-4) NONE 0-5 [facility] HospitalUrine EPE4752-00-51 15:24:00* Test Item Value Reference Range Interpretation Comments Urine RBC (test code = 80509-4) NONE 0-5 [facility] Lyhtnapv0954-44-76 15:24:00* Test Item Value Reference Range Interpretation Comments Urine Bacteria (test code = 40878-3) MODERATE NONE H [facility] HospitalUrine Epithelial Wgyra7002-88-37 15:24:00 * Test Item Value Reference Range Interpretation Comments Urine Epithelial Cells (test code = 80145-6) MODERATE NONE [facility] REI5896-35-05 15:24:00* Test Item Value Reference Range Interpretation Comments Urine WBC (test code = 5821-4) NONE 0-5 [facility] XIZ9795-46-23 15:24:00* Test Item Value Reference Range Interpretation Comments Urine RBC (test code = 51908-5) NONE 0-5 [facility] Qputbydw2307-72-19 15:24:00* Test Item Value Reference Range Interpretation Comments Urine Bacteria (test code = 35940-5) MODERATE NONE H [facility] Epithelial Blinp6112-87-77 15:24:00 * Test Item Value Reference Range Interpretation Comments Urine Epithelial Cells (test code = 68354-6) MODERATE NONE [facility] ONM5009-07-74 15:24:00* Test Item Value Reference Range Interpretation Comments Urine WBC (test code = 5821-4) NONE 0-5 [facility] FHO0149-12-88 15:24:00* Test Item Value Reference Range Interpretation Comments Urine RBC (test code = 27518-7) NONE 0-5 [facility] Jrghtfig1648-81-52 15:24:00* Test Item Value Reference Range Interpretation Comments Urine Bacteria (test code = 88782-4) MODERATE NONE H [facility] Epithelial Qgogx0584-44-98 15:24:00 * Test Item Value Reference Range Interpretation Comments Urine Epithelial Cells (test code = 82430-2) MODERATE NONE [facility] Lxkdq3481-69-12 15:00:00* Test Item Value Reference Range Interpretation Comments Urine Color (test code = 5778-6) YELLOW [facility]LLOW [facility] Brgmylm6365-27-53 15:00:00* Test Item Value Reference Range Interpretation Comments Urine Clarity (test code = 37060-1) CLEAR CLEAR [facility] Specific Aafhjsg4242-02-35 15:00:00 * Test Item Value Reference Range Interpretation Comments Urine Specific [place] (test code = 5811-5) 1.005 1.010-1.02 5 L [facility] pI4020-86-06 15:00:00* Test Item Value Reference Range Interpretation Comments Urine pH (test code = 92492-6) 5 5-7 [facility] Leukocyte Zulcfbxh9221-34-47 15:00:00* Test Item Value Reference Range Interpretation Comments Urine Leukocyte Esterase (test code = 5799-2) NEGATIVE NEGATIVE [facility] Xbacyro0614-73-63 15:00:00* Test Item Value Reference Range Interpretation Comments Urine Nitrite (test code = 65578-9) NEGATIVE NEGATIVE [facility] Smaykzp9993-45-18 15:00:00* Test Item Value Reference Range Interpretation Comments Urine Protein (test code = 5804-0) NEGATIVE NEGATIVE [facility] Glucose (UA)2019-03-07 15:00:00* Test Item Value Reference Range Interpretation Comments Urine Glucose (UA) (test code = 2349-9) 3+ NEGATIVE H [facility] Eeezgze2737-05-75 15:00:00* Test Item Value Reference Range Interpretation Comments Urine Ketones (test code = 91795-5) NEGATIVE NEGATIVE [facility] Efjxbovcsofq3321-61-67 15:00:00* Test Item Value Reference Range Interpretation Comments Urine Urobilinogen (test code = 17908-0) 0.2 0.2-1 [facility] Oadaylxfv1020-65-63 15:00:00* Test Item Value Reference Range Interpretation Comments Urine Bilirubin (test code = 1978-6) NEGATIVE NEGATIVE [facility] Knfje8454-95-07 15:00:00* Test Item Value Reference Range Interpretation Comments Urine Blood (test code = 78313-7) NEGATIVE NEGATIVE [facility] Liqad1610-07-30 15:00:00* Test Item Value Reference Range Interpretation Comments Urine Color (test code = 5778-6) YELLOW YELLOW [facility] Gaexxxa2652-26-90 15:00:00* Test Item Value Reference Range Interpretation Comments Urine Clarity (test code = 64105-3) CLEAR CLEAR [facility] Specific Fchhxjo8929-03-83 15:00:00 * Test Item Value Reference Range Interpretation Comments Urine Specific [place] (test code = 5811-5) 1.005 1.010-1.02 5 L [facility] xI5417-29-10 15:00:00* Test Item Value Reference Range Interpretation Comments Urine pH (test code = 72803-8) 5 5-7 [facility] Leukocyte Nfnxsuie8180-91-82 15:00:00* Test Item Value Reference Range Interpretation Comments Urine Leukocyte Esterase (test code = 5799-2) NEGATIVE NEGATIVE [facility] Xmaahjc9833-73-44 15:00:00* Test Item Value Reference Range Interpretation Comments Urine Nitrite (test code = 45008-4) NEGATIVE NEGATIVE [facility] Hurejtt4272-39-82 15:00:00* Test Item Value Reference Range Interpretation Comments Urine Protein (test code = 5804-0) NEGATIVE NEGATIVE [facility] Glucose (UA)2019-03-07 15:00:00* Test Item Value Reference Range Interpretation Comments Urine Glucose (UA) (test code = 2349-9) 3+ NEGATIVE H [facility] Rckkcwr2751-86-82 15:00:00* Test Item Value Reference Range Interpretation Comments Urine Ketones (test code = 55381-4) NEGATIVE NEGATIVE [facility] Bcjimblgquas2622-74-01 15:00:00* Test Item Value Reference Range Interpretation Comments Urine Urobilinogen (test code = 13969-6) 0.2 0.2-1 [facility] Nwpboidji1768-12-92 15:00:00* Test Item Value Reference Range Interpretation Comments Urine Bilirubin (test code = 1978-6) NEGATIVE NEGATIVE [facility] Nkjft6108-82-52 15:00:00* Test Item Value Reference Range Interpretation Comments Urine Blood (test code = 75885-6) NEGATIVE NEGATIVE [facility] Tepev4148-14-92 15:00:00* Test Item Value Reference Range Interpretation Comments Urine Color (test code = 5778-6) YELLOW YELLOW [facility] Gxezeld1426-25-46 15:00:00* Test Item Value Reference Range Interpretation Comments Urine Clarity (test code = 20646-0) CLEAR CLEAR [facility] Specific Sciilsd6960-82-74 15:00:00 * Test Item Value Reference Range Interpretation Comments Urine Specific [place] (test code = 5811-5) 1.005 1.010-1.02 5 L [facility] vZ8108-27-13 15:00:00* Test Item Value Reference Range Interpretation Comments Urine pH (test code = 49588-2) 5 5-7 [facility] Leukocyte Dvjmowbz2356-56-61 15:00:00* Test Item Value Reference Range Interpretation Comments Urine Leukocyte Esterase (test code = 5799-2) NEGATIVE NEGATIVE [facility] Fqwlotz9121-56-88 15:00:00* Test Item Value Reference Range Interpretation Comments Urine Nitrite (test code = 83152-5) NEGATIVE NEGATIVE [facility] Ozwfmmu9810-57-62 15:00:00* Test Item Value Reference Range Interpretation Comments Urine Protein (test code = 5804-0) NEGATIVE NEGATIVE [facility] Glucose (UA)2019-03-07 15:00:00* Test Item Value Reference Range Interpretation Comments Urine Glucose (UA) (test code = 2349-9) 3+ NEGATIVE H [facility] Jutegvi7392-36-33 15:00:00* Test Item Value Reference Range Interpretation Comments Urine Ketones (test code = 07353-0) NEGATIVE NEGATIVE [facility] Lreivevablwd8975-55-09 15:00:00* Test Item Value Reference Range Interpretation Comments Urine Urobilinogen (test code = 83470-3) 0.2 0.2-1 [facility] Whkfypykd1236-23-93 15:00:00* Test Item Value Reference Range Interpretation Comments Urine Bilirubin (test code = 1978-6) NEGATIVE NEGATIVE [facility] Qibgl8550-42-25 15:00:00* Test Item Value Reference Range Interpretation Comments Urine Blood (test code = 84123-4) NEGATIVE NEGATIVE [facility] Wchpb3869-57-50 15:00:00* Test Item Value Reference Range Interpretation Comments Urine Color (test code = 5778-6) YELLOW YELLOW [facility] Dqgnvjx4336-34-80 15:00:00* Test Item Value Reference Range Interpretation Comments Urine Clarity (test code = 31337-0) CLEAR CLEAR [facility] Specific Lpfomgg4730-53-57 15:00:00 * Test Item Value Reference Range Interpretation Comments Urine Specific [place] (test code = 5811-5) 1.005 1.010-1.02 5 L [facility] sA7627-42-41 15:00:00* Test Item Value Reference Range Interpretation Comments Urine pH (test code = 54424-6) 5 5-7 [facility] Leukocyte Rvatsidq9051-18-91 15:00:00* Test Item Value Reference Range Interpretation Comments Urine Leukocyte Esterase (test code = 5799-2) NEGATIVE NEGATIVE [facility] Kjoweey7104-86-53 15:00:00* Test Item Value Reference Range Interpretation Comments Urine Nitrite (test code = 30474-8) NEGATIVE NEGATIVE [facility] Aysbifh9738-28-15 15:00:00* Test Item Value Reference Range Interpretation Comments Urine Protein (test code = 5804-0) NEGATIVE NEGATIVE [facility] Glucose (UA)2019-03-07 15:00:00* Test Item Value Reference Range Interpretation Comments Urine Glucose (UA) (test code = 2349-9) 3+ NEGATIVE H [facility] Jphrflg6224-49-09 15:00:00* Test Item Value Reference Range Interpretation Comments Urine Ketones (test code = 86976-9) NEGATIVE NEGATIVE [facility] Vxqvkwbytzyd9654-99-07 15:00:00* Test Item Value Reference Range Interpretation Comments Urine Urobilinogen (test code = 98147-0) 0.2 0.2-1 [facility] Rftctzdyp1471-67-30 15:00:00* Test Item Value Reference Range Interpretation Comments Urine Bilirubin (test code = 1978-6) NEGATIVE NEGATIVE [facility] HospitalU[facility] Yzjqy8685-39-85 15:00:00* Test Item Value Reference Range Interpretation Comments Urine Blood (test code = 71659-2) NEGATIVE NEGATIVE [facility] Vcyhi7501-64-69 14:21:00* Test Item Value Reference Range Interpretation Comments Sodium Level (test code = 2951-2) 132 136-145 L [facility] HospitalPotassium Xovba4039-83-18 14:21:00* Test Item Value Reference Range Interpretation Comments Potassium Level (test code = 2823-3) 4.2 3.5-5.1 [facility] HospitalChloride Plnqy4956-24-82 14:21:00* Test Item Value Reference Range Interpretation Comments Chloride Level (test code = 2075-0) 98 98-107 [facility] HospitalCarbon Dioxide Xfhca0087-05-92 14:21:00* Test Item Value Reference Range Interpretation Comments Carbon Dioxide Level (test code = 2028-9) 23 22-29 [facility] HospitalAnion Fzg9513-35-44 14:21:00* Test Item Value Reference Range Interpretation Comments Anion Gap (test code = 88772-3) 15.2 8-16 [facility] HospitalBlood Urea Catlqplh5296-25-57 14:21:00* Test Item Value Reference Range Interpretation Comments Blood Urea Nitrogen (test code = 3094-0) 18 7-26 [facility] HospitalCreatinine2019-05-08 14:21:00* Test Item Value Reference Range Interpretation Comments Creatinine (test code = 2160-0) 1.30 0.57-1.11 H [facility] HospitalBUN/Creatinine Fdspc5596-43-79 14:21:00* Test Item Value Reference Range Interpretation Comments BUN/Creatinine Ratio (test code = 3097-3) 14 6-25 [facility] HospitalEstimat Glomerular Filtration Rate 2019-03-07 14:21:00* Test Item Value Reference Range Interpretation Comments Estimat Glomerular Filtration Rate (test code = 744779279) 42 >60 L Ranges were taken from the National Kidney Disease Education Program and the [facility] Kidney Foundation literature.Reference ranges:60 or greater: Fboqha78-98 ( for 3 consecutive months): Chronic kidney disease 15 or less: Kidney failureParkland Memorial HospitalGlucose Pjjog8822-38-59 14:21:00* Test Item Value Reference Range Interpretation Comments Glucose Level (test code = LER7687) 595 74-118 Results repeated and called to Linnea Sorto RN at 1419 on 03/07/19 by Darlene Dubon. Re ad back and verified.[facility] HospitalCalcium Level 2019-03-07 14:21:00* Test Item Value Reference Range Interpretation Comments Calcium Level (test code = 86769-9) 9.6 8.4-10.2 [facility] HospitalTotal Oyhmqjuax9259-63-43 14:21:00* Test Item Value Reference Range Interpretation Comments Total Bilirubin (test code = 1975-2) 0.3 0.2-1.2 [facility] HospitalAspartate Amino Transf (AST/SGOT) 2019-03-07 14:21:00* Test Item Value Reference Range Interpretation Comments Aspartate Amino Transf (AST/SGOT) (test code = Aspartate Amino Transf (AST/SGOT)) 13 5-34 [facility] HospitalAlanine Aminotransferase (ALT/SGPT) 2019-03-07 14:21:00* Test Item Value Reference Range Interpretation Comments Alanine Aminotransferase (ALT/SGPT) (test code = 1742-6) 9 0-55 [facility] HospitalTotal Hrxqcew1400-68-13 14:21:00* Test Item Value Reference Range Interpretation Comments Total Protein (test code = 2885-2) 6.9 6.5-8.1 [facility] HospitalAlbumin2019-05-08 14:21:00* Test Item Value Reference Range Interpretation Comments Albumin (test code = 1751-7) 3.3 3.5-5.0 L [facility] HospitalGlobulin2019-05-08 14:21:00* Test Item Value Reference Range Interpretation Comments Globulin (test code = 96574-7) 3.6 2.3-3.5 H [facility] HospitalAlbumin/Globulin Advlb6491-67-16 14:21:00 * Test Item Value Reference Range Interpretation Comments Albumin/Globulin Ratio (test code = 1759-0) 0.9 0.8-2.0 [facility] HospitalAlkaline Pglckxbwopt8179-49-97 14:21:00* Test Item Value Reference Range Interpretation Comments Alkaline Phosphatase (test code = 6768-6) 179 40-150 H [facility] HospitalWhite Blood Fmjts4883-07-09 14:11:00* Test Item Value Reference Range Interpretation Comments White Blood Count (test code = 6690-2) 9.28 4.8-10.8 [facility] HospitalRed Blood Azjad5524-58-18 14:11:00* Test Item Value Reference Range Interpretation Comments Red Blood Count (test code = 789-8) 4.22 3.6-5.1 [facility] HospitalHemoglobin2019-05-08 14:11:00* Test Item Value Reference Range Interpretation Comments Hemoglobin (test code = 18969-2) 10.9 12.0-16.0 L [facility] HospitalHematocrit2019-05-08 14:11:00* Test Item Value Reference Range Interpretation Comments Hematocrit (test code = 4544-3) 36.2 34.2-44.1 [facility] HospitalMean Corpuscular Rmbtth1610-78-90 14:11:00* Test Item Value Reference Range Interpretation Comments Mean Corpuscular Volume (test code = 787-2) 85.8 81-99 [facility] HospitalMean Corpuscular Wwlwsiyhyi0715-22-08 14:11:00* Test Item Value Reference Range Interpretation Comments Mean Corpuscular Hemoglobin (test code = 785-6) 25.8 28-32 L [facility] HospitalMean Corpuscular Hemoglobin Concent 2019-03-07 14:11:00* Test Item Value Reference Range Interpretation Comments Mean Corpuscular Hemoglobin Concent (test code = 786-4) 30.1 31-35 L [facility] HospitalRed Cell Distribution Zvtfq0617-61-82 14:11:00* Test Item Value Reference Range Interpretation Comments Red Cell Distribution Width (test code = 99500-1) 16.6 11.7 -14.4 H [facility] HospitalPlatelet Oeand5981-30-17 14:11:00* Test Item Value Reference Range Interpretation Comments Platelet Count (test code = 777-3) 381 140-360 H [facility] HospitalNeutrophils (%) (Auto)2019-03-07 14:11:00 * Test Item Value Reference Range Interpretation Comments Neutrophils (%) (Auto) (test code = 72079-1) 67.0 38.7-80.0 [facility] HospitalLymphocytes (%) (Auto)2019-03-07 14:11:00 * Test Item Value Reference Range Interpretation Comments Lymphocytes (%) (Auto) (test code = 736-9) 25.9 18.0-39.1 [facility] HospitalMonocytes (%) (Auto)2019-03-07 14:11:00* Test Item Value Reference Range Interpretation Comments Monocytes (%) (Auto) (test code = 5905-5) 4.8 4.4-11.3 [facility] HospitalEosinophils (%) (Auto)2019-03-07 14:11:00 * Test Item Value Reference Range Interpretation Comments Eosinophils (%) (Auto) (test code = 713-8) 1.4 0.0-6.0 [facility] HospitalBasophils (%) (Auto)2019-03-07 14:11:00* Test Item Value Reference Range Interpretation Comments Basophils (%) (Auto) (test code = 706-2) 0.6 0.0-1.0 [facility] HospitalIM GRANULOCYTES %2019-03-07 14:11:00* Test Item Value Reference Range Interpretation Comments IM GRANULOCYTES % (test code = IM GRANULOCYTES %) 0.3 0.0- 1.0 [facility] HospitalNeutrophils # (Auto)2019-03-07 14:11:00* Test Item Value Reference Range Interpretation Comments Neutrophils # (Auto) (test code = 751-8) 6.2 2.1-6.9 [facility] HospitalLymphocytes # (Auto)2019-03-07 14:11:00* Test Item Value Reference Range Interpretation Comments Lymphocytes # (Auto) (test code = 60498-0) 2.4 1.0-3.2 [facility] HospitalMonocytes # (Auto)2019-03-07 14:11:00* Test Item Value Reference Range Interpretation Comments Monocytes # (Auto) (test code = 742-7) 0.5 0.2-0.8 [facility] HospitalEosinophils # (Auto)2019-03-07 14:11:00* Test Item Value Reference Range Interpretation Comments Eosinophils # (Auto) (test code = 711-2) 0.1 0.0-0.4 [facility] HospitalBasophils # (Auto)2019-03-07 14:11:00* Test Item Value Reference Range Interpretation Comments Basophils # (Auto) (test code = 704-7) 0.1 0.0-0.1 [facility] HospitalAbsolute Immature Granulocyte (auto 2019-03-07 14:11:00* Test Item Value Reference Range Interpretation Comments Absolute Immature Granulocyte (auto (romelia t code = Absolute Immature Granulocyte (auto) 0.03 0-0.1 [facility] HospitalCARDIAC AQYXDVN6729-47-26 09:27:00<0.[address] [facility] HermannCARDIAC JGHTLBV3918-78-78 03:22:00<0.02[facility] HermannCARDIAC AENWAAK1677-35-16 20:04:0049[facility] HermannCARDIAC QLZAHEP6878-12-70 20:04:00< 0.02[facility] HermannCARDIAC JIIFSCY5970-16-62 20:04:0069[facility] HermannCHEM NKRDT7261-15-73 20:04:002.8[facility] HermannCHEM AKGSI3838-15-07 20:04:001.7 [facility]annDRUG NTBFLO0422-69-90 20:04:00See Note (02/27/19 3:04 PM)[facility] HermannDRUG GFTHVB0810-29-83 20:04:00Negative *NA*(02/27/19 3:04 PM)[facility] HermannDRUG QBOABI6490-19-05 20:04:00Negative *NA*(02/27/19 3:04 PM)[facility] HermannDRUG LWAWXQ5689-42-55 20:04:00Negative *NA*(02/27/19 3:04 PM)[facility] HermannDRUG UISWSO7791-49-41 20:04:00Negative *NA*(02/27/19 3:04 PM)[facility] HermannDRUG UDNMPE7813-02-93 20:04:00Positive *ABN*(02/27/19 3:04 PM)[facility] HermannDRUG OJFLPO8826-91-43 20:04:00Negative *NA*(02/27/19 3:04 PM)[facility] HermannDRUG QPRXZP3032-38-10 20:04:00Negative *NA*(02/27/19 3:04 PM)[facility] FamkxtlAUWYABZJLMKK8279-31-95 20:04:0012.8[facility] PqcaxelFPLXDESEKOXO7826-27-17 20:04:00* Test Item Value Reference Range Interpretation Comments A/G Ratio (test code = A/G Ratio) 0.8 1 0.7-1.6 [facility] UepknxrROUSQXULZTVA9050-74-25 20:04:003.9[facility] HermannELECTROLYTES 2019-02-27 20:04:00* Test Item Value Reference Range Interpretation Comments B/C Ratio (test code = B/C Ratio) 22 1 6-25 [facility] YrwavfzCFUCVGODHXQI0017-79-47 20:04:0060[facility] HermannELECTROLYTES 2019-02-27 20:04:39681Hiiacfpg BpexssvJWJPPADZWHWC4989-91-79 20:04:82385Psfhrmco JzleiweXQFNLDKAHFXK6455-04-94 20:04:004.8[facility] RndffsaKPCKOSYBAETE5272-54-91 20:04:73577Llopovon LpbjibeBYGYMGDKHAIY6843-71-30 20:04:001.05[facility] RLGRMGURXWEA8952-81-23 20:04:0023[facility] XxpsalbHNIYKIANRBTU9697-22-92 20:04:00 3.3[facility] VdgqzepGQXJPVVCLSIS8225-57-36 20:04:007.2[facility] UXWUMQZHKTYG2966-95-39 20:04:009.7[facility] CcydymxKTNHZMUECUWH4129-72-44 20:04:0027[facility] NdhqejiIAUQJCLYTRQG9485-46-34 20:04:000.3[facility] NUZDQQSJEQDB3961-04-56 20:04:90695Ogeqgilu OkwrchrCCHLIKYIOEHJ7909-55-33 20:04:0010[facility] FquhrdfESPYECKFANAQ8918-38-51 20:04:0015[facility] BZHRSWCJGT4270-87-59 20:04:00* Test Item Value Reference Range Interpretation Comments INR (test code = INR) 0.94 1 0.85-1.17 [facility] FzyfjwcGYVFQNJPFG1397-70-43 20:04:00* Test Item Value Reference Range Interpretation Comments PT (test code = PT) 12.4 s 12.0-14.7 [facility] SifvjfbNMELPDADCM1879-35-06 20:04:0018.7[facility] HermannHEMATOLOGY 2019-02-27 20:04:05580Erbwmglv LvqkpihVYCVRHWPOR1006-19-35 20:04:0012.3[facility] NionavgBHHWHURIOD0945-52-32 20:04:004.32[facility] JuwrnzuQBIEXHKKYB8111-33-17 20:04:0011.6[facility] JjhmuesJCRGMNNFZR6117-81-25 20:04:0035.8[facility] ELRIVETNUR4772-56-95 20:04:008.9[facility] BlvvwydMZLFWYPWJU5534-99-54 20:04:00 82.8[facility] EyqwzcdKWUVYDEOTN8417-90-98 20:04:00* Test Item Value Reference Range Interpretation Comments MCH (test code = MCH) 26.8 pg 27.0-31.0 [facility] YrkicrqJBRLOPNMGS0765-63-28 20:04:0032.4[facility] HermannHEMATOLOGY 2019-02-27 20:04:000.1[facility] LpfxenwBPMPVYIPYN4546-92-53 20:04:000.8[facility] HjlumgiVGRDHIJVTO6983-95-12 20:04:000.2[facility] GarsogzCDCJXADCAB9541-64-85 20:04:0025.7[facility] ZjjzkapLIUCOYRJHB8287-73-38 20:04:001.3[facility] Shabbir FPTQPMHKFX6782-58-55 20:04:005.8[facility] PenicmiBIHANHZYQB1020-21-48 20:04:00 66.4[facility] AbsnyanUIDWXITHSZ8371-66-42 20:04:008.1[facility] HermannHEMATOLOGY 2019-02-27 20:04:003.1[facility] FyawnwqVLPCSNCZPV3884-45-19 20:04:000.7[facility] HermannURINE AND KUIIE9330-64-61 20:04:005[facility] HermannURINE AND STOOL 2019-02-27 20:04:001[facility] HermannURINE AND DSANE6834-99-83 20:04:00<1[facility] HermannURINE AND DOVCI3036-99-49 20:04:00Negative (02/27/19 3:04 PM)[facility] HermannURINE AND MHUHP9297-47-37 20:04:00Negative (02/27/19 3:04 PM)[facility] HermannURINE AND UXKRK8820-01-88 20:04:00Negative (02/27/19 3:04 PM)[facility]annURINE AND HYWJA1740-07-64 20:04:00Negative *NA*(02/27/19 3:04 PM)[facility]annURINE AND WMNFI3755-54-42 20:04:00* Test Item Value Reference Range Interpretation Comments UA pH (test code = UA pH) 5.0 1 5.0-8.[address] [facility] RNQHG6426-31-53 20:04:00Yellow *NA*(02/27/19 3:04 PM) [facility]annURINE AND LVJRU5670-10-46 20:04:00* Test Item Value Reference Range Interpretation Comments UA Spec Grav (test code = UA Spec Grav) 1.[address] [facility] AND BVEWU5472-89-02 20:04:00Clear (02/27/19 3:04 PM) [facility] SINGLE (NOT PORTABLE)2019-02-26 17:03:00 [place] [address] Patient Name: STEPHANIE CAMERON MR #: [id number] : 1960 Age/Sex: 58/F Req #: [id number] Adm Physician: Ordered by: AKBAR MENDEZ NP Report #: [id number] Location: ER Room/Bed: Procedure: [id number] DX/ CHEST SINGLE (NOT PORTABLE) Exam Date: 02/26/19 Exam Time: 1515 REPORT STATUS: Signed EXAM: CHEST SINGLE (NOT PORTABLE), AP Portable DATE: 02/26/2019 Time stamp o n exam: 3:29 PM INDICATION: Hyperglycemia COMPARISON: 02/21/2019 FINDING S: LINES/TUBES: None LUNGS: Bibasilar atelectasis. PLEURA: No effus ions or pneumothorax. HEART AND MEDIASTINUM: Normal size and contour. BONES AND SOFT TISSUES: No acute findings. IMPRESSION: Bibasilar atelecta sis. Signed by: Dr. Luc Easley DO on 02/26/2019 5:05 PM Dictated By: LUC EASLEY DO 04 COPY TO: KIARA MENDEZ NP B-Type Natriuretic Xcbwfxt0331-64-18 15:33:00* Test Item Value Reference Range Interpretation Comments B-Type Natriuretic Peptide (test code = 94111-4) 72.5 0-100 [facility] HospitalB[facility] Jahqtfp1635-18-56 15:33:00* Test Item Value Reference Range Interpretation Comments B-Type Natriuretic Peptide (test code = 67998-2) 72.5 0-100 [facility] Natriuretic Suhmges8847-86-69 15:33:00* Test Item Value Reference Range Interpretation Comments B-Type Natriuretic Peptide (test code = 23994-6) 72.5 0-100 [facility] HospitalB-[facility] Natriuretic Qdcmfno2506-43-56 15:33:00* Test Item Value Reference Range Interpretation Comments B-Type Natriuretic Peptide (test code = 95452-2) 72.5 0-100 [facility] HospitalB-Type Natriuretic Yscdoue3063-66-95 15:33:00* Test Item Value Reference Range Interpretation Comments B-Type Natriuretic Peptide (test code = 16942-0) 72.5 0-100 [facility] HospitalB-Type Natriuretic Ggltgto8909-96-19 15:33:00* Test Item Value Reference Range Interpretation Comments B-Type Natriuretic Peptide (test code = 13444-9) 72.5 0-100 [facility] HospitalB-Type Natriuretic Jrcrzir1977-65-50 15:33:00* Test Item Value Reference Range Interpretation Comments B-Type Natriuretic Peptide (test code = 70909-7) 72.5 0-100 [facility] HospitalB-Type Natriuretic Dgygcww9216-33-18 15:33:00* Test Item Value Reference Range Interpretation Comments B-Type Natriuretic Peptide (test code = 54051-6) 72.5 0-100 [facility] Whwer5991-81-92 15:24:00* Test Item Value Reference Range Interpretation Comments Sodium Level (test code = 2951-2) 132 136-145 L [facility] HospitalPotassium Eoeqq5274-76-49 15:24:00* Test Item Value Reference Range Interpretation Comments Potassium Level (test code = 2823-3) 5.3 3.5-5.1 H [facility] HospitalChloride Kwgbe6094-54-72 15:24:00* Test Item Value Reference Range Interpretation Comments Chloride Level (test code = 2075-0) 96 98-107 L [facility] HospitalCarbon Dioxide Hzagb1362-80-32 15:24:00* Test Item Value Reference Range Interpretation Comments Carbon Dioxide Level (test code = 2028-9) - [facility] HospitalAnion Vgl7228-15-87 15:24:00* Test Item Value Reference Range Interpretation Comments Anion Gap (test code = 92977-4) 16.3 8-16 H [facility] HospitalBlood Urea Fgqmltvy3870-47-59 15:24:00* Test Item Value Reference Range Interpretation Comments Blood Urea Nitrogen (test code = 3094-0) 24 7- [facility] HospitalCreatinine2019-04-29 15:24:00* Test Item Value Reference Range Interpretation Comments Creatinine (test code = 2160-0) 1.22 0.57-1.11 H [facility] HospitalBUN/Creatinine [id number] 15:24:00* Test Item Value Reference Range Interpretation Comments BUN/Creatinine Ratio (test code = 3097-3) 20 6- [facility] HospitalEstimat Glomerular Filtration Rate 2019-02-26 15:24:00* Test Item Value Reference Range Interpretation Comments Estimat Glomerular Filtration Rate (test code = 221352604) 46 >60 L Ranges were taken from the National Kidney Disease Education Program and the [facility] literature.Reference ranges:60 or greater: Mtzgdy57-86 ( for 3 consecutive months): Chronic kidney disease 15 or less: Kidney failureParkland Memorial HospitalGlucose Qqjns8085-83-60 15:24:00* Test Item Value Reference Range Interpretation Comments Glucose Level (test code = RBJ5527) 451 74-118 Results repeated and called to DR GONZALEZ at 1523 on 02/26/19 by Hermes Ruiz. Read back and verified.[facility] HospitalCalcium Level 2019-02-26 15:24:00* Test Item Value Reference Range Interpretation Comments Calcium Level (test code = 52719-4) 9.9 8.4-10.2 [facility] HospitalTotal Fsqwdbubt7756-63-34 15:24:00* Test Item Value Reference Range Interpretation Comments Total Bilirubin (test code = 1975-2) 0.4 0.2-1.2 [facility] HospitalAspartate Amino Transf (AST/SGOT) 2019-02-26 15:24:00* Test Item Value Reference Range Interpretation Comments Aspartate Amino Transf (AST/SGOT) (test code = Aspartate Amino Transf (AST/SGOT)) 8 5-34 [facility] HospitalAlanine Aminotransferase (ALT/SGPT) 2019-02-26 15:24:00* Test Item Value Reference Range Interpretation Comments Alanine Aminotransferase (ALT/SGPT) (test code = 1742-6) 13 0-55 [facility] Ceitqcx5209-17-03 15:24:00* Test Item Value Reference Range Interpretation Comments Total Protein (test code = 2885-2) 7.2 6.5-8.1 [facility] HospitalAlbumin2019-04-29 15:24:00* Test Item Value Reference Range Interpretation Comments Albumin (test code = 1751-7) 3.3 3.5-5.0 L [facility] HospitalGlobulin2019-04-29 15:24:00* Test Item Value Reference Range Interpretation Comments Globulin (test code = 60937-9) 3.9 2.3-3.5 H [facility] HospitalAlbumin/Globulin Qgxuw5039-99-02 15:24:00 * Test Item Value Reference Range Interpretation Comments Albumin/Globulin Ratio (test code = 1759-0) 0.8 0.8-2.0 [facility] HospitalAlkaline Uomfzwtprso5977-97-60 15:24:00* Test Item Value Reference Range Interpretation Comments Alkaline Phosphatase (test code = 6768-6) 176 40-150 H [facility] HospitalCreatine Jhajrb6627-78-57 15:24:00* Test Item Value Reference Range Interpretation Comments Creatine Kinase (test code = 2157-6) 36 29-168 [facility] HospitalCreatine Kinase [id number] 15:24:00* Test Item Value Reference Range Interpretation Comments Creatine Kinase MB (test code = 16270-7) 0.70 0-5.0 [facility] HospitalTroponin O7508-47-56 15:24:00* Test Item Value Reference Range Interpretation Comments Troponin I (test code = FSJ5718) < 0.001 0-0.300 [facility] HospitalCreaven[facility] Xqopbc9501-62-35 15:24:00* Test Item Value Reference Range Interpretation Comments Creatine Kinase (test code = 2157-6) 36 29-168 [facility] HospitalCreatine Kinase [id number] 15:24:00* Test Item Value Reference Range Interpretation Comments Creatine Kinase MB (test code = 65084-9) 0.70 0-5.0 [facility] HospitalTrjohn[facility] community hospitalni [id number] 15:24:00* Test Item Value Reference Range Interpretation Comments Troponin I (test code = ECI5268) < 0.001 0-0.300 [facility] HospitalProthrombin Dstd4176-06-35 15:12:00* Test Item Value Reference Range Interpretation Comments Prothrombin Time (test code = 5902-2) 12.7 11.9-14.5 [facility] HospitalProthromb Time International Ratio 2019-02-26 15:12:00* Test Item Value Reference Range Interpretation Comments Prothromb Time International Ratio (test code = 6301-6) 0.91 Oral Anticoagulant Therapy INR Values:1. Low Intensity Therapy 1.5 - 2.02 . Moderate Intensity Therapy 2.0 - 3.03. High Intensity Therapy(1) 2.5 - 3. 54. High Intensity Therapy(2) 3.0 - 4.05. Panic Value INR > 5.0 [facility] HospitalActivated Partial Thromboplast Time 2019-02-26 15:12:00* Test Item Value Reference Range Interpretation Comments Activated Partial Thromboplast Time (test code = 34479-0) 30.9 23.8-35.5 [facility] HospitalProthrombin Qhdc0512-87-04 15:12:00* Test Item Value Reference Range Interpretation Comments Prothrombin Time (test code = 5902-2) 12.7 11.9-14.5 [facility] HospitalProthromb Time International Ratio 2019-02-26 15:12:00* Test Item Value Reference Range Interpretation Comments Prothromb Time International Ratio (test code = 6301-6) 0.91 Oral Anticoagulant Therapy INR Values:1. Low Intensity Therapy 1.5 - 2.02 . Moderate Intensity Therapy 2.0 - 3.03. High Intensity Therapy(1) 2.5 - 3. 54. High Intensity Therapy(2) 3.0 - 4.05. Panic Value INR > 5.0 [facility] HospitalActivated Partial Thromboplast Time 2019-02-26 15:12:00* Test Item Value Reference Range Interpretation Comments Activated Partial Thromboplast Time (test code = 81908-7) 30.9 23.8-35.5 [facility] HospitalProthrombin Trzt2734-96-37 15:12:00* Test Item Value Reference Range Interpretation Comments Prothrombin Time (test code = 5902-2) 12.7 11.9-14.5 [facility] HospitalProthromb Time International Ratio 2019-02-26 15:12:00* Test Item Value Reference Range Interpretation Comments Prothromb Time International Ratio (test code = 6301-6) 0.91 Oral Anticoagulant Therapy INR Values:1. Low Intensity Therapy 1.5 - 2.02 . Moderate Intensity Therapy 2.0 - 3.03. High Intensity Therapy(1) 2.5 - 3. 54. High Intensity Therapy(2) 3.0 - 4.05. Panic Value INR > 5.0 [facility] HospitalActivated Partial Thromboplast Time 2019-02-26 15:12:00* Test Item Value Reference Range Interpretation Comments Activated Partial Thromboplast Time (test code = 78356-2) 30.9 23.8-35.5 [facility] HospitalProthrombin Ezkk6199-92-32 15:12:00* Test Item Value Reference Range Interpretation Comments Prothrombin Time (test code = 5902-2) 12.7 11.9-14.5 [facility] HospitalProthromb Time International Ratio 2019-02-26 15:12:00* Test Item Value Reference Range Interpretation Comments Prothromb Time International Ratio (test code = 6301-6) 0.91 Oral Anticoagulant Therapy INR Values:1. Low Intensity Therapy 1.5 - 2.02 . Moderate Intensity Therapy 2.0 - 3.03. High Intensity Therapy(1) 2.5 - 3. 54. High Intensity Therapy(2) 3.0 - 4.05. Panic Value INR > 5.0 [facility] HospitalActivated Partial Thromboplast Time 2019-02-26 15:12:00* Test Item Value Reference Range Interpretation Comments Activated Partial Thromboplast Time (test code = 32112-7) 30.9 23.8-35.5 [facility] HospitalProthrombin Bcsn5933-27-39 15:12:00* Test Item Value Reference Range Interpretation Comments Prothrombin Time (test code = 5902-2) 12.7 11.9-14.5 [facility] HospitalProthromb Time International Ratio 2019-02-26 15:12:00* Test Item Value Reference Range Interpretation Comments Prothromb Time International Ratio (test code = 6301-6) 0.91 Oral Anticoagulant Therapy INR Values:1. Low Intensity Therapy 1.5 - 2.02 . Moderate Intensity Therapy 2.0 - 3.03. High Intensity Therapy(1) 2.5 - 3. 54. High Intensity Therapy(2) 3.0 - 4.05. Panic Value INR > 5.0 [facility] HospitalActivated Partial Thromboplast Time 2019-02-26 15:12:00* Test Item Value Reference Range Interpretation Comments Activated Partial Thromboplast Time (test code = 29260-1) 30.9 23.8-35.5 [facility] HospitalProthrombin Kryo8587-75-26 15:12:00* Test Item Value Reference Range Interpretation Comments Prothrombin Time (test code = 5902-2) 12.7 11.9-14.5 [facility] HospitalProthromb Time International Ratio 2019-02-26 15:12:00* Test Item Value Reference Range Interpretation Comments Prothromb Time International Ratio (test code = 6301-6) 0.91 Oral Anticoagulant Therapy INR Values:1. Low Intensity Therapy 1.5 - 2.02 . Moderate Intensity Therapy 2.0 - 3.03. High Intensity Therapy(1) 2.5 - 3. 54. High Intensity Therapy(2) 3.0 - 4.05. Panic Value INR > 5.0 [facility] HospitalActivated Partial Thromboplast Time 2019-02-26 15:12:00* Test Item Value Reference Range Interpretation Comments Activated Partial Thromboplast Time (test code = 01354-9) 30.9 23.8-35.5 [facility] HospitalProthrombin Ffbu3986-36-38 15:12:00* Test Item Value Reference Range Interpretation Comments Prothrombin Time (test code = 5902-2) 12.7 11.9-14.5 [facility] HospitalProthromb Time International Ratio 2019-02-26 15:12:00* Test Item Value Reference Range Interpretation Comments Prothromb Time International Ratio (test code = 6301-6) 0.91 Oral Anticoagulant Therapy INR Values:1. Low Intensity Therapy 1.5 - 2.02 . Moderate Intensity Therapy 2.0 - 3.03. High Intensity Therapy(1) 2.5 - 3. 54. High Intensity Therapy(2) 3.0 - 4.05. Panic Value INR > 5.0 [facility] HospitalActivated Partial Thromboplast Time 2019-02-26 15:12:00* Test Item Value Reference Range Interpretation Comments Activated Partial Thromboplast Time (test code = 74445-8) 30.9 23.8-35.5 [facility] HospitalProthrombin Hyzh9329-38-60 15:12:00* Test Item Value Reference Range Interpretation Comments Prothrombin Time (test code = 5902-2) 12.7 11.9-14.5 [facility] HospitalProthromb Time International Ratio 2019-02-26 15:12:00* Test Item Value Reference Range Interpretation Comments Prothromb Time International Ratio (test code = 6301-6) 0.91 Oral Anticoagulant Therapy INR Values:1. Low Intensity Therapy 1.5 - 2.02 . Moderate Intensity Therapy 2.0 - 3.03. High Intensity Therapy(1) 2.5 - 3. 54. High Intensity Therapy(2) 3.0 - 4.05. Panic Value INR > 5.0 [facility] HospitalActivated Partial Thromboplast Time 2019-02-26 15:12:00* Test Item Value Reference Range Interpretation Comments Activated Partial Thromboplast Time (test code = 59962-5) 30.9 23.8-35.5 [facility] HospitalWhite Blood Izdrk9776-97-09 15:07:00* Test Item Value Reference Range Interpretation Comments White Blood Count (test code = 6690-2) 13.84 4.8-10.8 H [facility] HospitalRed Blood Ehdah5844-39-56 15:07:00* Test Item Value Reference Range Interpretation Comments Red Blood Count (test code = 789-8) 4.14 3.6-5.1 [facility] HospitalHemoglobin2019-04-29 15:07:00* Test Item Value Reference Range Interpretation Comments Hemoglobin (test code = 03310-7) 11.0 12.0-16.0 L [facility] HospitalHematocrit2019-04-29 15:07:00* Test Item Value Reference Range Interpretation Comments Hematocrit (test code = 4544-3) 34.8 34.2-44.1 [facility] HospitalMean Corpuscular Bsclvq7318-21-01 15:07:00* Test Item Value Reference Range Interpretation Comments Mean Corpuscular Volume (test code = 787-2) 84.1 81-99 [facility] HospitalMean Corpuscular Qbxpsaneyl7562-58-86 15:07:00* Test Item Value Reference Range Interpretation Comments Mean Corpuscular Hemoglobin (test code = 785-6) 26.6 28-32 L [facility] HospitalMean Corpuscular Hemoglobin Concent 2019-02-26 15:07:00* Test Item Value Reference Range Interpretation Comments Mean Corpuscular Hemoglobin Concent (test code = 786-4) 31.6 31-35 [facility] HospitalRed Cell Distribution Xmjaz6646-63-39 15:07:00* Test Item Value Reference Range Interpretation Comments Red Cell Distribution Width (test code = 02775-2) 17.5 11.7 -14.4 H [facility] HospitalPlatelet Kythu1967-05-27 15:07:00* Test Item Value Reference Range Interpretation Comments Platelet Count (test code = 777-3) 360 140-360 [facility] HospitalNeutrophils (%) (Auto)2019-02-26 15:07:00 * Test Item Value Reference Range Interpretation Comments Neutrophils (%) (Auto) (test code = 56958-7) 65.7 38.7-80.0 [facility] HospitalLymphocytes (%) (Auto)2019-02-26 15:07:00 * Test Item Value Reference Range Interpretation Comments Lymphocytes (%) (Auto) (test code = 736-9) 27.0 18.0-39.1 [facility] HospitalMonocytes (%) (Auto)2019-02-26 15:07:00* Test Item Value Reference Range Interpretation Comments Monocytes (%) (Auto) (test code = 5905-5) 5.1 4.4-11.3 [facility] HospitalEosinophils (%) (Auto)2019-02-26 15:07:00 * Test Item Value Reference Range Interpretation Comments Eosinophils (%) (Auto) (test code = 713-8) 0.9 0.0-6.0 [facility] HospitalBasophils (%) (Auto)2019-02-26 15:07:00* Test Item Value Reference Range Interpretation Comments Basophils (%) (Auto) (test code = 706-2) 0.6 0.0-1.0 [facility] HospitalIM GRANULOCYTES %2019-02-26 15:07:00* Test Item Value Reference Range Interpretation Comments IM GRANULOCYTES % (test code = IM GRANULOCYTES %) 0.7 0.0- 1.0 [facility] HospitalNeutrophils # (Auto)2019-02-26 15:07:00* Test Item Value Reference Range Interpretation Comments Neutrophils # (Auto) (test code = 751-8) 9.1 2.1-6.9 H [facility] HospitalLymphocytes # (Auto)2019-02-26 15:07:00* Test Item Value Reference Range Interpretation Comments Lymphocytes # (Auto) (test code = 91032-6) 3.7 1.0-3.2 H [facility] HospitalMonocytes # (Auto)2019-02-26 15:07:00* Test Item Value Reference Range Interpretation Comments Monocytes # (Auto) (test code = 742-7) 0.7 0.2-0.8 [facility] HospitalEosinophils # (Auto)2019-02-26 15:07:00* Test Item Value Reference Range Interpretation Comments Eosinophils # (Auto) (test code = 711-2) 0.1 0.0-0.4 [facility] HospitalBasophils # (Auto)2019-02-26 15:07:00* Test Item Value Reference Range Interpretation Comments Basophils # (Auto) (test code = 704-7) 0.1 0.0-0.1 [facility] HospitalAbsolute Immature Granulocyte (auto 2019-02-26 15:07:00* Test Item Value Reference Range Interpretation Comments Absolute Immature Granulocyte (auto (romelia t code = Absolute Immature Granulocyte (auto) 0.10 0-0.1 [facility] Atalugd2619-16-66 16:55:00* Test Item Value Reference Range Interpretation Comments Bedside Glucose (test code = 77087-0) 253 70-120 H Meter ID: [id number] N. Jones Regional Medical Centerside Glucose 2019-02-23 16:55:00* Test Item Value Reference Range Interpretation Comments Bedside Glucose (test code = 95357-4) 253 70-120 H Meter ID: [id number] Memorial HospitalCreatine Kinase MB 2019-02-22 15:58:00* Test Item Value Reference Range Interpretation Comments Creatine Kinase MB (test code = 18887-4) 0.80 0-5.0 [facility] HospitalTroponin R3708-77-25 15:58:00* Test Item Value Reference Range Interpretation Comments Troponin I (test code = CSB7372) < 0.001 0-0.300 [facility] HospitalCreatine Nsrxga2426-06-12 15:53:00* Test Item Value Reference Range Interpretation Comments Creatine Kinase (test code = 2157-6) 40 29-168 [facility] HospitalDifferential Total Cells Counted 2019-02-22 10:14:00* Test Item Value Reference Range Interpretation Comments Differential Total Cells Counted (test code = Differen tial Total Cells Counted) 100 [facility] HospitalNeutrophils % (Manual)2019-02-22 10:14:00 * Test Item Value Reference Range Interpretation Comments Neutrophils % (Manual) (test code = 14983-8) 47 40-74 [facility] HospitalLymphocytes % (Manual)2019-02-22 10:14:00 * Test Item Value Reference Range Interpretation Comments Lymphocytes % (Manual) (test code = 737-7) 38 19-48 [facility] HospitalMonocytes % (Manual)2019-02-22 10:14:00* Test Item Value Reference Range Interpretation Comments Monocytes % (Manual) (test code = 744-3) 6 3.4-9.0 [facility] HospitalEosinophils % (Manual)2019-02-22 10:14:00 * Test Item Value Reference Range Interpretation Comments Eosinophils % (Manual) (test code = 714-6) 1 0-7 [facility] HospitalBasophils % (Manual)2019-02-22 10:14:00* Test Item Value Reference Range Interpretation Comments Basophils % (Manual) (test code = 69703-5) 1 0-1.5 [facility] HospitalReactive Bzalwmmqnmt1741-40-09 10:14:00* Test Item Value Reference Range Interpretation Comments Reactive Lymphocytes (test code = 67619-3) 6 [facility] HospitalBlast Cells %2019-02-22 10:14:00* Test Item Value Reference Range Interpretation Comments Blast Cells % (test code = 40404-8) 1 [facility] HospitalPlatelet Puldxmfx3722-00-65 10:14:00* Test Item Value Reference Range Interpretation Comments Platelet Estimate (test code = 44152-6) SLIGHTLY INCREASED [facility] HospitalPlatelet Morphology Fmtnohm5235-00-32 10:14:00* Test Item Value Reference Range Interpretation Comments Platelet Morphology Comment (test code = 82329-5) NORMAL [facility] HospitalHypochromasia2019-04-25 10:14:00* Test Item Value Reference Range Interpretation Comments Hypochromasia (test code = 728-6) SLIGHT [facility] HospitalPoikilocytosis2019-04-25 10:14:00* Test Item Value Reference Range Interpretation Comments Poikilocytosis (test code = 779-9) SLIGHT [facility] HospitalAnisocytosis2019-04-25 10:14:00* Test Item Value Reference Range Interpretation Comments Anisocytosis (test code = 702-1) SLIGHT [facility] HospitalRed Cell Morphology Pckxirr1269-25-25 10:14:00* Test Item Value Reference Range Interpretation Comments Red Cell Morphology Comment (test code = 6742-1) NORMAL [facility] HospitalDifferential Total Cells Counted 2019-02-22 10:14:00* Test Item Value Reference Range Interpretation Comments Differential Total Cells Counted (test code = Differen tial Total Cells Counted) 100 [facility] HospitalNeutrophils % (Manual)2019-02-22 10:14:00 * Test Item Value Reference Range Interpretation Comments Neutrophils % (Manual) (test code = 99671-7) 47 40-74 [facility] HospitalLymphocytes % (Manual)2019-02-22 10:14:00 * Test Item Value Reference Range Interpretation Comments Lymphocytes % (Manual) (test code = 737-7) 38 19-48 [facility] HospitalMonocytes % (Manual)2019-02-22 10:14:00* Test Item Value Reference Range Interpretation Comments Monocytes % (Manual) (test code = 744-3) 6 3.4-9.0 [facility] HospitalEosinophils % (Manual)2019-02-22 10:14:00 * Test Item Value Reference Range Interpretation Comments Eosinophils % (Manual) (test code = 714-6) 1 0-7 [facility] HospitalBasophils % (Manual)2019-02-22 10:14:00* Test Item Value Reference Range Interpretation Comments Basophils % (Manual) (test code = 85411-8) 1 0-1.5 [facility] HospitalReactive Igtgnimwgpp4631-05-34 10:14:00* Test Item Value Reference Range Interpretation Comments Reactive Lymphocytes (test code = 53021-7) 6 [facility] HospitalBlast Cells %2019-02-22 10:14:00* Test Item Value Reference Range Interpretation Comments Blast Cells % (test code = 54041-4) 1 [facility] HospitalPlatelet Dtnogfmi3708-36-62 10:14:00* Test Item Value Reference Range Interpretation Comments Platelet Estimate (test code = 16362-7) SLIGHTLY INCREASED [facility] HospitalPlatelet Morphology Dasnyrn1206-25-32 10:14:00* Test Item Value Reference Range Interpretation Comments Platelet Morphology Comment (test code = 76352-9) NORMAL [facility] HospitalHypochromasia2019-04-25 10:14:00* Test Item Value Reference Range Interpretation Comments Hypochromasia (test code = 728-6) SLIGHT [facility] HospitalPoikilocytosis2019-04-25 10:14:00* Test Item Value Reference Range Interpretation Comments Poikilocytosis (test code = 779-9) SLIGHT [facility] HospitalAnisocytosis2019-04-25 10:14:00* Test Item Value Reference Range Interpretation Comments Anisocytosis (test code = 702-1) SLIGHT [facility] HospitalRed Cell Morphology Xjisduo2013-63-09 10:14:00* Test Item Value Reference Range Interpretation Comments Red Cell Morphology Comment (test code = 6742-1) NORMAL [facility] HospitalDifferential Total Cells Counted 2019-02-22 10:14:00* Test Item Value Reference Range Interpretation Comments Differential Total Cells Counted (test code = Eitan tial Total Cells Counted) 100 [facility] HospitalNeutrophils % (Manual)2019-02-22 10:14:00 * Test Item Value Reference Range Interpretation Comments Neutrophils % (Manual) (test code = 54573-4) 47 40-74 [facility] HospitalLymphocytes % (Manual)2019-02-22 10:14:00 * Test Item Value Reference Range Interpretation Comments Lymphocytes % (Manual) (test code = 737-7) 38 19-48 [facility] HospitalMonocytes % (Manual)2019-02-22 10:14:00* Test Item Value Reference Range Interpretation Comments Monocytes % (Manual) (test code = 744-3) 6 3.4-9.0 [facility] HospitalEosinophils % (Manual)2019-02-22 10:14:00 * Test Item Value Reference Range Interpretation Comments Eosinophils % (Manual) (test code = 714-6) 1 0-7 [facility] HospitalBasophils % (Manual)2019-02-22 10:14:00* Test Item Value Reference Range Interpretation Comments Basophils % (Manual) (test code = 85693-7) 1 0-1.5 [facility] HospitalReactive Ialyxdjoxug5604-32-45 10:14:00* Test Item Value Reference Range Interpretation Comments Reactive Lymphocytes (test code = 04754-7) 6 [facility] HospitalBlast Cells %2019-02-22 10:14:00* Test Item Value Reference Range Interpretation Comments Blast Cells % (test code = 19526-1) 1 [facility] HospitalPlatelet Qufrhoxi3494-21-10 10:14:00* Test Item Value Reference Range Interpretation Comments Platelet Estimate (test code = 54603-9) SLIGHTLY INCREASED [facility] HospitalPlatelet Morphology Qbexhfq6515-32-63 10:14:00* Test Item Value Reference Range Interpretation Comments Platelet Morphology Comment (test code = 28333-4) NORMAL [facility] HospitalHypochromasia2019-04-25 10:14:00* Test Item Value Reference Range Interpretation Comments Hypochromasia (test code = 728-6) SLIGHT [facility] HospitalPoikilocytosis2019-04-25 10:14:00* Test Item Value Reference Range Interpretation Comments Poikilocytosis (test code = 779-9) SLIGHT [facility] HospitalAnisocytosis2019-04-25 10:14:00* Test Item Value Reference Range Interpretation Comments Anisocytosis (test code = 702-1) SLIGHT [facility] HospitalRed Cell Morphology Oduzfdh1626-22-45 10:14:00* Test Item Value Reference Range Interpretation Comments Red Cell Morphology Comment (test code = 6742-1) NORMAL [facility] HospitalDifferential Total Cells Counted 2019-02-22 10:14:00* Test Item Value Reference Range Interpretation Comments Differential Total Cells Counted (test code = Differen tial Total Cells Counted) 100 [facility] HospitalNeutrophils % (Manual)2019-02-22 10:14:00 * Test Item Value Reference Range Interpretation Comments Neutrophils % (Manual) (test code = 91781-4) 47 40-74 [facility] HospitalLymphocytes % (Manual)2019-02-22 10:14:00 * Test Item Value Reference Range Interpretation Comments Lymphocytes % (Manual) (test code = 737-7) 38 19-48 [facility] HospitalMonocytes % (Manual)2019-02-22 10:14:00* Test Item Value Reference Range Interpretation Comments Monocytes % (Manual) (test code = 744-3) 6 3.4-9.0 [facility] HospitalEosinophils % (Manual)2019-02-22 10:14:00 * Test Item Value Reference Range Interpretation Comments Eosinophils % (Manual) (test code = 714-6) 1 0-7 [facility] HospitalBasophils % (Manual)2019-02-22 10:14:00* Test Item Value Reference Range Interpretation Comments Basophils % (Manual) (test code = 42922-0) 1 0-1.5 [facility] HospitalReactive Ighnuessiri0160-12-33 10:14:00* Test Item Value Reference Range Interpretation Comments Reactive Lymphocytes (test code = 13929-4) 6 [facility] HospitalBlast Cells %2019-02-22 10:14:00* Test Item Value Reference Range Interpretation Comments Blast Cells % (test code = 41803-2) 1 [facility] HospitalPlatelet Dictiiqe2585-68-71 10:14:00* Test Item Value Reference Range Interpretation Comments Platelet Estimate (test code = 24815-9) SLIGHTLY INCREASED [facility] HospitalPlatelet Morphology Vrcyylb2981-48-82 10:14:00* Test Item Value Reference Range Interpretation Comments Platelet Morphology Comment (test code = 45123-8) NORMAL [facility] HospitalHypochromasia2019-04-25 10:14:00* Test Item Value Reference Range Interpretation Comments Hypochromasia (test code = 728-6) SLIGHT [facility] HospitalPoikilocytosis2019-04-25 10:14:00* Test Item Value Reference Range Interpretation Comments Poikilocytosis (test code = 779-9) [facility] HospitalAnisocytosis2019[facility] 10:14:00* Test Item Value Reference Range Interpretation Comments Anisocytosis (test code = 702-1) [facility] HospitalRed Cell Morphology Ybcaegg5735-72-26 10:14:00* Test Item Value Reference Range Interpretation Comments Red Cell Morphology Comment (test code = 6742-1) NORMAL [facility] HospitalBasophils % (Manual)2019-02-22 10:14:00* Test Item Value Reference Range Interpretation Comments Basophils % (Manual) (test code = 73602-0) 1 0-1.5 [facility] HospitalBlast Cells %2019-02-22 10:14:00* Test Item Value Reference Range Interpretation Comments Blast Cells % (test code = 54710-8) 1 [facility] HospitalPlatelet Pdnmfinz5882-66-21 10:14:00* Test Item Value Reference Range Interpretation Comments Platelet Estimate (test code = 24711-6) SLIGHTLY INCREASED [facility] HospitalPlatelet Morphology Pvhbmws7268-51-86 10:14:00* Test Item Value Reference Range Interpretation Comments Platelet Morphology Comment (test code = 32321-5) NORMAL [facility] HospitalHypochromasia2019-04-25 10:14:00* Test Item Value Reference Range Interpretation Comments Hypochromasia (test code = 728-6) [facility]IGHT [facility] HospitalPoikilocytosis2019-04-25 10:14:00* Test Item Value Reference Range Interpretation Comments Poikilocytosis (test code = 779-9) [facility]IGHT [facility] HospitalAnisocytosis2019-04-25 10:14:00* Test Item Value Reference Range Interpretation Comments Anisocytosis (test code = 702-1) [facility]IGHT [facility] HospitalRed Cell Morphology Cykqtst6597-59-67 10:14:00* Test Item Value Reference Range Interpretation Comments Red Cell Morphology Comment (test code = 6742-1) NORMAL [facility] HospitalBasophils % (Manual)2019-02-22 10:14:00* Test Item Value Reference Range Interpretation Comments Basophils % (Manual) (test code = 31474-0) 1 0-1.5 [facility] HospitalBlast Cells %2019-02-22 10:14:00* Test Item Value Reference Range Interpretation Comments Blast Cells % (test code = 23788-7) 1 [facility] HospitalPlatelet Qryqltpb3174-08-31 10:14:00* Test Item Value Reference Range Interpretation Comments Platelet Estimate (test code = 89948-3) SLIGHTLY INCREASED [facility] HospitalPlatelet Morphology Twvfsbi3474-88-53 10:14:00* Test Item Value Reference Range Interpretation Comments Platelet Morphology Comment (test code = 53547-8) NORMAL [facility] HospitalHypochromasia2019-04-25 10:14:00* Test Item Value Reference Range Interpretation Comments Hypochromasia (test code = 728-6) [facility]IGHT [facility] HospitalPoikilocytosis2019-04-25 10:14:00* Test Item Value Reference Range Interpretation Comments Poikilocytosis (test code = 779-9) [facility]IGHT [facility] HospitalAnisocytosis2019-04-25 10:14:00* Test Item Value Reference Range Interpretation Comments Anisocytosis (test code = 702-1) [facility]IGHT [facility] HospitalRed Cell Morphology Wrqserh9818-22-45 10:14:00* Test Item Value Reference Range Interpretation Comments Red Cell Morphology Comment (test code = 6742-1) NORMAL [facility] HospitalBasophils % (Manual)2019-02-22 10:14:00* Test Item Value Reference Range Interpretation Comments Basophils % (Manual) (test code = 96456-4) 1 0-1.5 [facility] HospitalBlast Cells %2019-02-22 10:14:00* Test Item Value Reference Range Interpretation Comments Blast Cells % (test code = 24132-2) 1 [facility] HospitalPlatelet Zeeenlkj8615-88-82 10:14:00* Test Item Value Reference Range Interpretation Comments Platelet Estimate (test code = 35743-9) SLIGHTLY INCREASED [facility] HospitalPlatelet Morphology Hzkessa1974-58-31 10:14:00* Test Item Value Reference Range Interpretation Comments Platelet Morphology Comment (test code = 46820-3) NORMAL [facility] HospitalHypochromasia2019-04-25 10:14:00* Test Item Value Reference Range Interpretation Comments Hypochromasia (test code = 728-6) SLIGHT [facility] HospitalPoikilocytosis2019-04-25 10:14:00* Test Item Value Reference Range Interpretation Comments Poikilocytosis (test code = 779-9) [facility]IGHT [facility] HospitalAnisocytosis2019-04-25 10:14:00* Test Item Value Reference Range Interpretation Comments Anisocytosis (test code = 702-1) [facility]IGHT [facility] HospitalRed Cell Morphology Djiubgv8620-87-65 10:14:00* Test Item Value Reference Range Interpretation Comments Red Cell Morphology Comment (test code = 6742-1) NORMAL [facility] HospitalBasophils % (Manual)2019-02-22 10:14:00* Test Item Value Reference Range Interpretation Comments Basophils % (Manual) (test code = 11489-8) 1 0-1.5 [facility] HospitalBlast Cells %2019-02-22 10:14:00* Test Item Value Reference Range Interpretation Comments Blast Cells % (test code = 25327-7) 1 [facility] HospitalPlatelet Jefrqkaq2217-25-53 10:14:00* Test Item Value Reference Range Interpretation Comments Platelet Estimate (test code = 36557-6) SLIGHTLY INCREASED [facility] HospitalPlatelet Morphology Faskotk4663-28-34 10:14:00* Test Item Value Reference Range Interpretation Comments Platelet Morphology Comment (test code = 33150-2) NORMAL [facility] HospitalHypochromasia2019-04-25 10:14:00* Test Item Value Reference Range Interpretation Comments Hypochromasia (test code = 728-6) SLIGHT [facility] HospitalPoikilocytosis2019-04-25 10:14:00* Test Item Value Reference Range Interpretation Comments Poikilocytosis (test code = 779-9) [facility]IGHT [facility] HospitalAnisocytosis2019-04-25 10:14:00* Test Item Value Reference Range Interpretation Comments Anisocytosis (test code = 702-1) SLIGHT [facility] HospitalRed Cell Morphology Powvakl6894-45-47 10:14:00* Test Item Value Reference Range Interpretation Comments Red Cell Morphology Comment (test code = 6742-1) [facility] Afqvx1355-83-79 07:09:00* Test Item Value Reference Range Interpretation Comments Sodium Level (test code = 2951-2) 136 136-145 [facility] HospitalPotassium Uorqm6231-87-80 07:09:00* Test Item Value Reference Range Interpretation Comments Potassium Level (test code = 2823-3) 5.0 3.5-5.1 [facility] HospitalChloride Futsj3718-22-66 07:09:00* Test Item Value Reference Range Interpretation Comments Chloride Level (test code = 2075-0) 106 98-107 [facility] HospitalCarbon Dioxide Wqfvz7332-83-68 07:09:00* Test Item Value Reference Range Interpretation Comments Carbon Dioxide Level (test code = 2028-9) 22 22-29 [facility] HospitalAnion Alo3628-15-62 07:09:00* Test Item Value Reference Range Interpretation Comments Anion Gap (test code = 23629-5) 13.0 8-16 [facility] HospitalBlood Urea Xuboqymn7206-83-46 07:09:00* Test Item Value Reference Range Interpretation Comments Blood Urea Nitrogen (test code = 3094-0) 23 7-26 [facility] HospitalCreatinine2019-04-25 07:09:00* Test Item Value Reference Range Interpretation Comments Creatinine (test code = 2160-0) 0.83 0.57-1.11 [facility] HospitalBUN/Creatinine Pwpxs7183-10-38 07:09:00* Test Item Value Reference Range Interpretation Comments BUN/Creatinine Ratio (test code = 3097-3) 28 6-25 H [facility] HospitalEstimat Glomerular Filtration Rate 2019-02-22 07:09:00* Test Item Value Reference Range Interpretation Comments Estimat Glomerular Filtration Rate (test code = 227812383) > 60 >60 Ranges were taken from the National Kidney Disease Education Program and the [facility] Kid[facility] Foundation literature.Reference ranges:60 or greater: Pzssej71-70 ( for 3 consecutive months): Chronic kidney disease 15 or less: Kidney failureParkland Memorial HospitalGlucose Seamg5424-92-23 07:09:00* Test Item Value Reference Range Interpretation Comments Glucose Level (test code = NBI9870) 241 74-118 H [facility] HospitalCalcium Dezwe7976-48-29 07:09:00* Test Item Value Reference Range Interpretation Comments Calcium Level (test code = 86505-8) 9.0 8.4-10.2 [facility] HospitalTotal Uaibclfjz8968-51-89 07:09:00* Test Item Value Reference Range Interpretation Comments Total Bilirubin (test code = 1975-2) 0.4 0.2-1.2 [facility] HospitalAspartate Amino Transf (AST/SGOT) 2019-02-22 07:09:00* Test Item Value Reference Range Interpretation Comments Aspartate Amino Transf (AST/SGOT) (test code = Aspartate Amino Transf (AST/SGOT)) 10 5-34 [facility] HospitalAlanine Aminotransferase (ALT/SGPT) 2019-02-22 07:09:00* Test Item Value Reference Range Interpretation Comments Alanine Aminotransferase (ALT/SGPT) (test code = 1742-6) 11 0-55 [facility] HospitalTotal Phkxtdv5147-23-73 07:09:00* Test Item Value Reference Range Interpretation Comments Total Protein (test code = 2885-2) 6.3 6.5-8.1 L [facility] HospitalAlbumin2019-04-25 07:09:00* Test Item Value Reference Range Interpretation Comments Albumin (test code = 1751-7) 2.9 3.5-5.0 L [facility] HospitalGlobulin2019-04-25 07:09:00* Test Item Value Reference Range Interpretation Comments Globulin (test code = 06725-8) 3.4 2.3-3.5 [facility] HospitalAlbumin/Globulin Whsro4648-24-20 07:09:00 * Test Item Value Reference Range Interpretation Comments Albumin/Globulin Ratio (test code = 1759-0) 0.9 0.8-2.0 [facility] HospitalAlkaline Abziomzpjhy5211-13-22 07:09:00* Test Item Value Reference Range Interpretation Comments Alkaline Phosphatase (test code = 6768-6) 152 40-150 H [facility] HospitalWhite Blood Rkead7286-68-36 06:12:00* Test Item Value Reference Range Interpretation Comments White Blood Count (test code = 6690-2) 11.02 4.8-10.8 H [facility] HospitalRed Blood Bmupw5684-63-17 06:12:00* Test Item Value Reference Range Interpretation Comments Red Blood Count (test code = 789-8) 3.90 3.6-5.1 [facility] HospitalHemoglobin2019-04-25 06:12:00* Test Item Value Reference Range Interpretation Comments Hemoglobin (test code = 22112-1) 10.2 12.0-16.0 L [facility] HospitalHematocrit2019-04-25 06:12:00* Test Item Value Reference Range Interpretation Comments Hematocrit (test code = 4544-3) 34.0 34.2-44.1 L [facility] HospitalMean Corpuscular Qttwfg2862-17-12 06:12:00* Test Item Value Reference Range Interpretation Comments Mean Corpuscular Volume (test code = 787-2) 87.2 81-99 [facility] HospitalMean Corpuscular Epcfjwzmmj9994-71-30 06:12:00* Test Item Value Reference Range Interpretation Comments Mean Corpuscular Hemoglobin (test code = 785-6) 26.2 28-32 L [facility] HospitalMean Corpuscular Hemoglobin Concent 2019-02-22 06:12:00* Test Item Value Reference Range Interpretation Comments Mean Corpuscular Hemoglobin Concent (test code = 786-4) 30.0 31-35 L [facility] HospitalRed Cell Distribution Ovvuz9745-12-99 06:12:00* Test Item Value Reference Range Interpretation Comments Red Cell Distribution Width (test code = 95176-4) 17.3 11.7 -14.4 H [facility] HospitalPlatelet Epqqh5217-48-86 06:12:00* Test Item Value Reference Range Interpretation Comments Platelet Count (test code = 777-3) 369 140-360 H [facility] HospitalNeutrophils (%) (Auto)2019-02-22 06:12:00 * Test Item Value Reference Range Interpretation Comments Neutrophils (%) (Auto) (test code = 23739-6) 49.3 38.7-80.0 [facility] HospitalLymphocytes (%) (Auto)2019-02-22 06:12:00 * Test Item Value Reference Range Interpretation Comments Lymphocytes (%) (Auto) (test code = 736-9) 41.7 18.0-39.1 H [facility] HospitalMonocytes (%) (Auto)2019-02-22 06:12:00* Test Item Value Reference Range Interpretation Comments Monocytes (%) (Auto) (test code = 5905-5) 5.9 4.4-11.3 [facility] HospitalEosinophils (%) (Auto)2019-02-22 06:12:00 * Test Item Value Reference Range Interpretation Comments Eosinophils (%) (Auto) (test code = 713-8) 1.7 0.0-6.0 [facility] HospitalBasophils (%) (Auto)2019-02-22 06:12:00* Test Item Value Reference Range Interpretation Comments Basophils (%) (Auto) (test code = 706-2) 0.8 0.0-1.0 [facility] HospitalIM GRANULOCYTES %2019-02-22 06:12:00* Test Item Value Reference Range Interpretation Comments IM GRANULOCYTES % (test code = IM GRANULOCYTES %) 0.6 0.0- 1.0 [facility] HospitalNeutrophils # (Auto)2019-02-22 06:12:00* Test Item Value Reference Range Interpretation Comments Neutrophils # (Auto) (test code = 751-8) 5.4 2.1-6.9 [facility] HospitalLymphocytes # (Auto)2019-02-22 06:12:00* Test Item Value Reference Range Interpretation Comments Lymphocytes # (Auto) (test code = 99775-1) 4.6 1.0-3.2 H [facility] HospitalMonocytes # (Auto)2019-02-22 06:12:00* Test Item Value Reference Range Interpretation Comments Monocytes # (Auto) (test code = 742-7) 0.7 0.2-0.8 [facility] HospitalEosinophils # (Auto)2019-02-22 06:12:00* Test Item Value Reference Range Interpretation Comments Eosinophils # (Auto) (test code = 711-2) 0.2 0.0-0.4 [facility] HospitalBasophils # (Auto)2019-02-22 06:12:00* Test Item Value Reference Range Interpretation Comments Basophils # (Auto) (test code = 704-7) 0.1 0.0-0.1 [facility] HospitalAbsolute Immature Granulocyte (auto 2019-02-22 06:12:00* Test Item Value Reference Range Interpretation Comments Absolute Immature Granulocyte (auto (romelia t code = Absolute Immature Granulocyte (auto) 0.07 0-0.1 [facility] TGH4411-22-24 17:57:00* Test Item Value Reference Range Interpretation Comments Urine WBC (test code = 5821-4) NONE 0-5 [facility] CVA0877-58-36 17:57:00* Test Item Value Reference Range Interpretation Comments Urine RBC (test code = 19965-4) NONE 0-5 [facility] Wfpyfnyw3082-69-40 17:57:00* Test Item Value Reference Range Interpretation Comments Urine Bacteria (test code = 67374-0) NONE NONE [facility] HospitalUrine Epithelial Dlndu9156-27-91 17:57:00 * Test Item Value Reference Range Interpretation Comments Urine Epithelial Cells (test code = 80323-9) RARE NONE [facility] HospitalUrine YBD5820-78-97 17:57:00* Test Item Value Reference Range Interpretation Comments Urine WBC (test code = 5821-4) NONE 0-5 [facility] HospitalUrine CLQ6498-19-88 17:57:00* Test Item Value Reference Range Interpretation Comments Urine RBC (test code = 99087-5) NONE 0-5 [facility] Xftixvax7789-51-10 17:57:00* Test Item Value Reference Range Interpretation Comments Urine Bacteria (test code = 63705-2) NONE NONE [facility] HospitalUrine Epithelial Nhybx5843-35-83 17:57:00 * Test Item Value Reference Range Interpretation Comments Urine Epithelial Cells (test code = 82091-8) RARE NONE [facility] Gchdk8470-44-70 17:42:00* Test Item Value Reference Range Interpretation Comments Urine Color (test code = 5778-6) YELLOW YELLOW [facility] HospitalUrine Tkwgjvb7448-92-77 17:42:00* Test Item Value Reference Range Interpretation Comments Urine Clarity (test code = 48341-7) CLEAR CLEAR [facility] HospitalUrine Specific Rfolxbw9907-08-30 17:42:00 * Test Item Value Reference Range Interpretation Comments Urine Specific [place] (test code = 5811-5) 1.010 1.010-1.02 5 [facility] HospitalUrine yQ6057-53-96 17:42:00* Test Item Value Reference Range Interpretation Comments Urine pH (test code = 48725-1) 5 5-7 [facility] Leukocyte Bmswtnww2751-16-31 17:42:00* Test Item Value Reference Range Interpretation Comments Urine Leukocyte Esterase (test code = 5799-2) NEGATIVE NEGATIVE [facility] Ghntfcu4432-55-56 17:42:00* Test Item Value Reference Range Interpretation Comments Urine Nitrite (test code = 14100-9) NEGATIVE NEGATIVE [facility] Jfvtuee9936-77-55 17:42:00* Test Item Value Reference Range Interpretation Comments Urine Protein (test code = 5804-0) NEGATIVE NEGATIVE [facility] Glucose (UA)2019-02-21 17:42:00* Test Item Value Reference Range Interpretation Comments Urine Glucose (UA) (test code = 2349-9) 3+ NEGATIVE H [facility] Nczahzn8859-35-94 17:42:00* Test Item Value Reference Range Interpretation Comments Urine Ketones (test code = 39688-6) NEGATIVE NEGATIVE [facility] Hcjdcqtobrkh3014-35-57 17:42:00* Test Item Value Reference Range Interpretation Comments Urine Urobilinogen (test code = 47376-8) 0.2 0.2-1 [facility] Zlnwojvgp6009-63-40 17:42:00* Test Item Value Reference Range Interpretation Comments Urine Bilirubin (test code = 1978-6) NEGATIVE NEGATIVE [facility] Awxvh9634-83-92 17:42:00* Test Item Value Reference Range Interpretation Comments Urine Blood (test code = 54982-8) NEGATIVE NEGATIVE [facility] Lisns3593-02-98 17:42:00* Test Item Value Reference Range Interpretation Comments Urine Color (test code = 5778-6) YELLOW YELLOW [facility] HospitalUrine Vvikhyo4175-32-56 17:42:00* Test Item Value Reference Range Interpretation Comments Urine Clarity (test code = 90638-6) CLEAR CLEAR [facility] HospitalUrine Specific Ugfkkwa0110-19-25 17:42:00 * Test Item Value Reference Range Interpretation Comments Urine Specific [place] (test code = 5811-5) 1.010 1.010-1.02 5 [facility] HospitalUrine nK3234-41-86 17:42:00* Test Item Value Reference Range Interpretation Comments Urine pH (test code = 83307-3) 5 5-7 [facility] HospitalUrine Leukocyte Lqeyqmys6947-17-69 17:42:00* Test Item Value Reference Range Interpretation Comments Urine Leukocyte Esterase (test code = 5799-2) NEGATIVE NEGATIVE [facility] HospitalUrine Jxtsroq7313-26-29 17:42:00* Test Item Value Reference Range Interpretation Comments Urine Nitrite (test code = 76213-1) NEGATIVE NEGATIVE [facility] HospitalUrine Purcuvh4371-50-62 17:42:00* Test Item Value Reference Range Interpretation Comments Urine Protein (test code = 5804-0) NEGATIVE NEGATIVE [facility] HospitalUrine Glucose (UA)2019-02-21 17:42:00* Test Item Value Reference Range Interpretation Comments Urine Glucose (UA) (test code = 2349-9) 3+ NEGATIVE H [facility] HospitalUrine Wwfpjts9973-53-04 17:42:00* Test Item Value Reference Range Interpretation Comments Urine Ketones (test code = 24862-3) NEGATIVE NEGATIVE [facility] Kbyqxtyabwcg8070-60-43 17:42:00* Test Item Value Reference Range Interpretation Comments Urine Urobilinogen (test code = 32609-6) 0.2 0.2-1 [facility] HospitalUrine Uujxzxmip2716-46-86 17:42:00* Test Item Value Reference Range Interpretation Comments Urine Bilirubin (test code = 1978-6) NEGATIVE NEGATIVE [facility] HospitalUrine Bgppd7554-63-28 17:42:00* Test Item Value Reference Range Interpretation Comments Urine Blood (test code = 15001-3) NEGATIVE NEGATIVE [facility] HospitalB-Type Natriuretic Arbhwaw0179-74-68 17:17:00* Test Item Value Reference Range Interpretation Comments B-Type Natriuretic Peptide (test code = 33322-5) 71.6 0-100 [facility] HospitalCHEST 2 XEQQJ4342-93-33 14:26:00 [facility] [address] [address] Patient Name: STEPHANIE CAMERON MR #: [id number] : 1960 Age/Sex: 58/F Req #: [id number] Adm Physician: Ordered by: SHANNON GONZALEZ MD Report #: [id number] Location: ER Room/Bed: Procedure: [id number] DX/ CHEST 2 VIEWS Exam Date: 02/21/19 Exam Time: 1400 REPORT STATUS: Signed EXAMINATION: CHEST 2 VIEWS INDICATION: Chest pain. COMPARISON: None FINDINGS: TUBES and LINES: None. LUNGS: Lungs are not well inflated. Lungs are clear. There is no evidence of pneumonia or pulmonary edema. PLEURA: No pleural effusion or pneumothorax. HEART AND MEDIASTINUM: Th e cardiomediastinal silhouette is unremarkable. BONES AND SOFT TISSUES: No acute osseous abnormality. UPPER ABDOMEN: No free air under the diaphr agm. IMPRESSION: No acute radiographic abnormality. Signed by: Dr. Sukhi Alonso MD on 02/21/2019 2:28 PM Dictated By: SUKHI ALONSO MD Elect ronically Signed By: SUKHI ALONSO MD on 02/21/191427 Transcribed By: SCOTT on 02/21/191427 COPY TO: SHANNON GONZALEZ MD Prothrombin Time 2019-02-21 14:18:00* Test Item Value Reference Range Interpretation Comments Prothrombin Time (test code = 5902-2) 12.1 11.9-14.5 [facility] HospitalProthromb Time International Ratio 2019-02-21 14:18:00* Test Item Value Reference Range Interpretation Comments Prothromb Time International Ratio (test code = 6301-6) 0.85 Oral Anticoagulant Therapy INR Values:1. Low Intensity Therapy 1.5 - 2.02 . Moderate Intensity Therapy 2.0 - 3.03. High Intensity Therapy(1) 2.5 - 3. 54. High Intensity Therapy(2) 3.0 - 4.05. Panic Value INR > 5.0 [facility] HospitalActivated Partial Thromboplast Time 2019-02-21 14:18:00* Test Item Value Reference Range Interpretation Comments Activated Partial Thromboplast Time (test code = 83087-6) 32.0 23.8-35.5 [facility] HospitalANEMIA BBKIG6500-69-75 13:46:0023[facility] HermannANEMIA VETIZ2087-25-89 13:46:01376Qpiriuxg HermannANEMIA CXZCV5842-31-05 13:46:008[facility] HermannANEMIA LNGZB4225-52-39 13:46:71656Ekrvqixq Shabbir ANEMIA HSGPD1049-29-59 13:46:0010.3[facility]annANEMIA WMBLH2905-66-37 13:46:73418Andvrikh HermannANEMIA HUDFW3086-71-24 13:46:0032[facility] HermannCHEM GCYPQ8672-66-68 13:46:30851Yjyjuubu BssjqptIWYYZHVNZY5017-47-51 13:46:0029.9 Memorial HwuaonuZPPQKSUDLA2479-70-98 13:46:0082.9[facility] HermannHEMATOLOGY 2019-02-06 13:46:0018.0[facility]orial ZjglgncIMQHDRSMCA8220-09-60 13:46:0031.7[facility] FlsttyoXJAUXJAQCQ6097-38-22 13:46:00* Test Item Value Reference Range Interpretation Comments MCH (test code = MCH) 26.2 pg 27.0-31.[address] [facility] XliizlqOKTDTMXMUT3787-07-44 13:46:008.4[facility] HermannHEMATOLOGY 2019-02-06 13:46:55749Iqcyzaqw BfroowmYKJKCJAEEU1458-96-69 13:46:003.60[facility] XljviawGXNHAHGSMR5012-66-78 13:46:0011.1[facility] JhdqcrfBAWHDZYKKI8225-00-96 13:46:009.5[facility] LsqndzlCFHFHVMIOX0782-66-54 13:46:001.9[facility] FHSEARRWXN4098-86-01 12:13:00* Test Item Value Reference Range Interpretation Comments PTT (test code = PTT) 72.9 s 22.9-35.8 [facility] GaexrmcNOTKRFIYLY9239-13-87 03:42:00* Test Item Value Reference Range Interpretation Comments PTT (test code = PTT) 65.4 s 22.9-35.8 Memorial XufglsaFBEOUPWZMD1158-81-92 18:34:00* Test Item Value Reference Range Interpretation Comments PTT (test code = PTT) 48.0 s 22.9-35.8 [facility] HermannCHEM QIHVV4112-13-47 12:14:0098[facility] HermannCHEM PANEL 2019-02-04 12:14:004.4[facility] HermannCHEM CCFYC7839-35-74 12:14:66247Ccozcrtq HermannCHEM BAOQR4508-95-18 12:14:0014[facility] HermannCHEM UZUTX8322-92-59 12:14:95423Mqkqrbys HermannCHEM PTLLO6200-15-92 12:14:74591Bmqelvsj HermannCHEM DSLNM5337-56-43 12:14:000.69[facility] HermannCHEM XAKMA6794-93-71 12:14:0030 [facility]annCHEM HGXEE9563-00-03 12:14:007.4[facility] HermannCHEM PANEL 2019-02-04 12:14:009.2[facility] GlebnqdIDLZADCKUK2014-34-14 12:14:003.70[facility] PhrzpwcHZYUXVIFTH4752-92-42 12:14:009.6[facility] KvuumfjIMWHYLTSOE0866-33-51 12:14:79348Lqqipsar KymutxxRPRSDVRMCI8472-38-54 12:14:008.3[facility] Shabbir RTCJNGTHVB2209-46-80 12:14:007.3[facility] NrmlzwaXHMOXMEWZY3113-82-32 12:14:00 31.0[facility]orial UjbrrdeFSTXNHTGXL7990-27-83 12:14:0018.0[facility] HermannHEMATOLOGY 2019-02-04 12:14:0083.8[facility] NazvbnaSZMHKBPLWV4758-30-26 12:14:0031.0[facility] WjjxbfhPVJTMJOLEO7439-01-83 12:14:00* Test Item Value Reference Range Interpretation Comments MCH (test code = MCH) 26.0 pg 27.0-31.0 [facility]annCHEM JHXON1367-43-89 02:23:0060[facility] HermannCHEM PANEL 2019-02-04 02:23:0019[facility] HermannCHEM BRFAF0856-33-14 02:23:64989Xbdmahpa HermannCHEM EVSRV7570-04-00 02:23:0010.4[facility] HermannCHEM KDDDF8686-16-23 02:23:0027[facility] HermannCHEM QLMLX6353-94-68 02:23:54754Chjlvsho HermannCHEM WQNIP4556-47-66 02:23:96081Hnmfciru HermannCHEM HJKWN5857-69-99 02:23:005.4 [facility]annCHEM PJPUH6963-12-20 02:23:009.1[facility] HermannCHEM PANEL 2019-02-04 02:23:001.04[facility] HermannCARDIAC ECYXLUM4015-08-60 13:19:001.40 [facility] UbzhtpzZYDJNTKZZK9103-40-06 06:51:0033.8[facility] HermannHEMATOLOGY 2019-02-03 06:51:006.3[facility] DeksxmjAVSVLOFCJX4757-29-51 06:51:0058.8[facility] EgriuicEGXUYZXVWD6683-99-55 06:51:000.5[facility] UuubcluCEAOULVHGB3294-24-96 06:51:000.6[facility] HchzgnaJUAJQTVSWW4882-40-89 06:51:005.5[facility] VDGOMBAMSV9609-71-61 06:51:003.2[facility] GvwvhhpMUKQMLKIHZ3111-88-56 06:51:000.6 [facility] NueabhiWKXWXWNDWW6009-92-74 06:51:000.1[facility]annHEMATOLOGY 2019-02-03 06:51:0030.4[facility] QoougpfBFSSOAFIKY5693-73-82 06:51:0083.2[facility] BzubqqiNIMWWEIPUT0054-48-47 06:51:003.65[facility] QjgglfsATZJSCETBD5726-37-66 06:51:009.6[facility] BiqcpbsKIBFIIKSOE8528-25-47 06:51:00* Test Item Value Reference Range Interpretation Comments MCH (test code = MCH) 26.3 pg 27.0-31.0 [facility] RqgrcgwVHOCWOFPKE0218-52-45 06:51:009.4[facility]annHEMATOLOGY 2019-02-03 06:51:37792Dfawsvez RluydicWXVYJBFOGL3342-18-59 06:51:0031.5[facility] QkdjdjcDUBHSAIUTT5167-50-52 06:51:008.0[facility] TspenpwIHOSXLFFIP9428-56-86 06:51:0018.0[facility]annURINE AND MKNEA3709-70-09 03:54:00Clear (02/02/19 10:54 PM)[facility] DYOKC0968-70-60 03:54:00* Test Item Value Reference Range Interpretation Comments UA Spec Grav (test code = UA Spec Grav) 1.008 1 [facility] TOEQV7281-51-21 03:54:00* Test Item Value Reference Range Interpretation Comments UA pH (test code = UA pH) 5.0 1 5.0-8.0 [facility] KKMZY2376-38-68 03:54:00Negative (02/02/19 10:54 PM) [facility] EGKYA1227-78-63 03:54:001[facility] JBPJM4212-10-84 03:54:001[facility] GYPIO4544-06-11 03:54:00 Negative (02/02/19 10:54 PM)[facility] BPMGV9849-97-28 03:54:00 Trace *ABN*(02/02/19 10:54 PM)[facility] PMVCE1286-07-83 03:54:001 [facility] DDSXS7985-46-99 03:54:00Negative (02/02/19 10:54 PM) [facility] HTAIF4322-17-11 03:54:00Negative *NA*(02/02/19 10:54 PM) [facility] RCIMV2481-70-23 03:54:00Negative *NA*(02/02/19 10:54 PM) [facility]annCARDIAC GXBSMZS4974-59-00 23:29:002.90[facility]annCARDIAC JTSOQLY7285-06-06 22:14:002.70[facility] HermannCHEM OXYTE2547-03-91 22:14:002.6 [facility]annCHEM WKIEB0206-08-10 22:14:001.9[facility]annCHEM PANEL 2019-02-02 22:14:0043[facility] HermannCHEM BHENW3566-40-29 22:14:0044[facility] HermannCHEM CCYNV9224-27-34 22:14:000.3[facility] HermannCHEM HGHNY9397-77-55 22:14:88381Dpsewovh HermannCHEM ERZSF5140-99-83 22:14:006.4[facility]annCHEM KFGEP8153-42-45 22:14:002.7[facility]annCHEM KXRJQ8314-92-03 22:14:15020 [facility]annCHEM UJCSK9890-45-29 22:14:50324Grxgdqlw HermannCHEM PANEL 2019-02-02 22:14:0026[facility] HermannCHEM QXCNZ0939-31-75 22:14:008.8[facility] HermannCHEM KYDFY2451-38-50 22:14:001.35[facility]annCHEM RWAVI1892-41-66 22:14:0029[facility]annCHEM OHCWU0938-95-86 22:14:004.2[facility] HermannCHEM NEUTM5629-61-66 22:14:62124Jjvqoxgi HermannCHEM KSYNA6505-28-74 22:14:0023 [facility]annCHEM DGKPH0222-25-29 22:14:0014[facility] HermannCHEM PANEL 2019-02-02 22:14:00* Test Item Value Reference Range Interpretation Comments A/G Ratio (test code = A/G Ratio) 0.7 1 0.7-1.6 [facility]annCHEM VWNZD3869-57-68 22:14:003.7[facility] HermannCHEM PANEL 2019-02-02 22:14:00* Test Item Value Reference Range Interpretation Comments B/C Ratio (test code = B/C Ratio) 21 1 6-25 [facility]annCHEM VWBGA8920-26-55 22:14:008.2[facility]annHEMATOLOGY 2019-02-02 22:14:0032.8[facility] ZdyxowvVMEXLDRNGR2873-95-10 22:14:000.8[facility] VbfcyhiQVOGDFCQND7225-74-02 22:14:000.2[facility] CzrcuqoAVQDAAMUOF0372-41-78 22:14:007.5[facility] DjsaveeEQCQADRHQF8763-46-07 22:14:0058.7[facility] POZMRCLCFC5430-81-99 22:14:000.1[facility] PkttqxfREPQMQJFMY8221-63-55 22:14:000.9 [facility] OuytbnbGJQZQEXAEQ1850-10-85 22:14:004.0[facility]annHEMATOLOGY 2019-02-02 22:14:007.2[facility] FebglsoZRNUNZBNNM5596-00-61 22:14:00* Test Item Value Reference Range Interpretation Comments INR (test code = INR) 1.09 1 0.85-1.[address] [facility] QkfyjqsWGETXZBFWT9381-13-45 22:14:00* Test Item Value Reference Range Interpretation Comments PT (test code = PT) 13.9 s 12.0-14.7 [facility]ajdzobIAYYKDKZ-A5485-91-21 18:32:00* Test Item Value Reference Range Interpretation Comments TROPONIN-I (test code = TROPI) <0.015 ng/mL 0.00-0.056 N COMPREHENSIVE METABOLIC JYSBS5418-58-21 16:25:00* Test Item Value Reference Range Interpretation Comments SODIUM (test code = NA) 140 mmol/L 135-148 N POTASSIUM (test code = K) 4.4 mmol/L 3.5-5.1 N CHLORIDE (test code = CL) 102 mmol/L 101-109 N CARBON DIOXIDE (test code = CO2) 24.2 mmol/L 21-32 N ANION GAP (test code = GAP) 18 mmol/L 10-20 N GLUCOSE (test code = GLU) 250 mg/dL 74-106 H BLOOD UREA NITROGEN (test code = BUN) 14 mg/dL 3-21 N CREATININE (test code = CREAT) 1.15 mg/dL 0.55-1.3 N BUN/CREATININE RATIO (test code = BUN/CREA) 12.2 10-20 N TOTAL PROTEIN (test code = PROT) 7.1 g/dL 6.5-8.4 N ALBUMIN (test code = ALB) 3.1 g/dL 3.4-4.8 L GLOBULIN (test code = GLOB) 4.0 G/DL 1-10 N ALBUMIN/GLOBULIN RATIO (test code = A/G) 0.8 RATIO 0.75-1.50 N CALCIUM (test code = CA) 8.9 mg/dL 8.4-10.2 N BILIRUBIN TOTAL (test code = BILT) 0.20 mg/dL 0.0-1.0 N SGOT/AST (test code = AST) 20 U/L 6-32 N SGPT/ALT (test code = ALT) 17 U/L 12-78 N N ote: Change in REFERENCE RANGE due to new reagent method. ALKALINE PHOSPHATASE TOTAL (test code = ALKP) 170 U/L 38-126 H WAKFOJ1574-37-99 16:25:00* Test Item Value Reference Range Interpretation Comments LIPASE (test code = LIP) 55 U/L 128-270 L GGRSTWYVU0478-23-77 16:25:00* Test Item Value Reference Range Interpretation Comments MAGNESIUM (test code = MAG) 1.3 mg/dL 1.6-2.3 L CPK-MB TTMLNHM3193-16-85 16:25:00* Test Item Value Reference Range Interpretation Comments CREATINE KINASE (CK) (test code = CK) 34 U/L 26-192 N CKMB (test code = CKMBT) 0.7 ng/mL 0.0-5.0 N RELATIVE % INDEX (test code = REL%) 2.1 % GYSTDSQX-W7788-65-21 16:25:00* Test Item Value Reference Range Interpretation Comments TROPONIN-I (test code = TROPI) <0.015 ng/mL 0.00-0.056 N B-TYPE NATRIURETIC TZAXQWF7861-63-17 16:23:00* Test Item Value Reference Range Interpretation Comments B-TYPE NATRIURETIC PEPTIDE (test code = BNP) 16.8 pg/mL 0-100 N U-RYXOO0999-15RYVUW1007-26-01 16:20:00* Test Item Value Reference Range Interpretation Comments D-DIMER (test code = DDIMER) < 100 ng/ml < 600 - XR CHEST 1 Y9016-02-12 16:16:00 Name: STEPHANIE CAMERON [facility] : 1960 Age/S:58 /F [address] [facility] Unit#:[id number] [place]: [place] [address] Phys: Yaakov Cho MD Dis Date: PHONE #: [phone] Status: REG ER FAX #: [phone] Exam Date: 01/18/2019 Reason: CP EXAMS: CPT CODE: [id number] XR CHEST 1 V 22648 EXAM: Chest X-ray, 1 view; CLINICAL HISTORY: Chest pain; FINDINGS: The lungs are clear, no infiltrates, no edema; no effusions; no pneumothorax; normal cardiomediastinal silhouette. IMPRESSION: Normal chest x-ray. at 1616 Reported and signed by: Conor Urrutia M.D. CC: Yaakov Cho MD Technologist: SILVIA AGUIAR, RT(R),CT Trnscrpt Data: 01/18/2019 (1616) Tony Orig Print D/T: S: 01/18/2019 (7242) PAGE 1 Signed Report COMPREHENSIVE METABOLIC [id number] 16:12:00* Test Item Value Reference Range Interpretation Comments SODIUM (test code = NA) 140 mmol/L 135-148 N POTASSIUM (test code = K) 4.4 mmol/L 3.5-5.1 N CHLORIDE (test code = CL) 102 mmol/L 101-109 N CARBON DIOXIDE (test code = CO2) 24.2 mmol/L 21-32 N ANION GAP (test code = GAP) 18 mmol/L 10-20 N GLUCOSE (test code = GLU) 250 mg/dL 74-106 H BLOOD UREA NITROGEN (test code = BUN) 14 mg/dL 3-21 N CREATININE (test code = CREAT) 1.15 mg/dL 0.55-1.3 N BUN/CREATININE RATIO (test code = BUN/CREA) 12.2 10-20 N TOTAL PROTEIN (test code = PROT) gram/dL 6.4-8.2 ALBUMIN (test code = ALB) g/dL 3.4-5.0 GLOBULIN (test code = GLOB) g/dL 2.7-4.2 ALBUMIN/GLOBULIN RATIO (test code = A/G) 0.75-1.50 CALCIUM (test code = CA) 8.9 mg/dL 8.4-10.2 N BILIRUBIN TOTAL (test code = BILT) mg/dL 0.2-1.2 SGOT/AST (test code = AST) IUnit/L 15-37 SGPT/ALT (test code = ALT) U/L 10-69 ALKALINE PHOSPHATASE TOTAL (test code = ALKP) IUnit/L 45-117 JICIBE1895-60-04 16:12:00* Test Item Value Reference Range Interpretation Comments LIPASE (test code = LIP) Unit/L 144-286 DCAIOLVDB4080-13-55 16:12:00* Test Item Value Reference Range Interpretation Comments MAGNESIUM (test code = MAG) mg/dL 1.8-2.4 CPK-MB ZSUYVUR1044-16-90 16:12:00* Test Item Value Reference Range Interpretation Comments CREATINE KINASE (CK) (test code = CK) IUnit/L 26-208 CKMB (test code = CKMBT) ng/mL 0-6.0 RELATIVE % INDEX (test code = REL%) % BONRDGZK-L8370-75-21 16:12:00* Test Item Value Reference Range Interpretation Comments TROPONIN-I (test code = TROPI) ng/mL 0-0.045 CBC W/AUTO HABI0711-03-37 16:05:00* Test Item Value Reference Range Interpretation Comments WHITE BLOOD CELL (test code = WBC) 12.7 K/mm3 4.5-12.5 H RED BLOOD CELL (test code = RBC) 4.35 mill/mm3 3.7-5.2 N HEMOGLOBIN (test code = HGB) 11.4 gram/dL 11.5-15.5 L HEMATOCRIT (test code = HCT) 37.1 % 36.0-46.0 N MEAN CELL VOLUME (test code = MCV) 85.3 fL 80-98 N MEAN CELL HGB (test code = MCH) 26.2 picogram 27.0-33.0 L MEAN CELL HGB CONCETRATION (test code = MCHC) 30.7 gram/dL 33.0-36. 0 L RED CELL DISTRIBUTION WIDTH (test code = RDW) 17.7 % 11.6-16. 2 H RED CELL DISTRIBUTION WIDTH SD (test code = RDW-SD) 53.6 fL 39 .1-52.0 H PLATELET COUNT (test code = PLT) 341 K/mm3 150-450 N MEAN PLATELET VOLUME (test code = MPV) 9.7 fL 6.7-11.0 N NEUTROPHIL % (test code = NT%) 68.2 % 39.0-69.0 N LYMPHOCYTE % (test code = LY%) 25.6 % 25.0-55.0 N MONOCYTE % (test code = MO%) 4.9 % 0.0-10.0 N EOSINOPHIL % (test code = EO%) 0.9 % 0.0-5.0 N BASOPHIL % (test code = BA%) 0.4 % 0.0-1.0 N NEUTROPHIL # (test code = NT#) 8.66 K/mm3 1.8-7.7 H LYMPHOCYTE # (test code = LY#) 3.25 K/mm3 1.0-5.0 N MONOCYTE # (test code = MO#) 0.62 K/mm3 0-0.8 N EOSINOPHIL # (test code = EO#) 0.12 K/mm3 0.0-0.5 N BASOPHIL # (test code = BA#) 0.05 K/mm3 0.0-0.2 N MANUAL DIFF REQUIRED (test code = MDIFF) NO [id number] 22:37:00 [facility] [address] [address] Patient Name: STEPHANIE CAMERON MR #: [id number] : 1960 Age/Sex: 58/F Req #: [id number] Adm Physician: Ordered by: MARYLU VALDOVINOS MD Report #: [id number] Location: ER Room/Bed: Procedure: [id number] DX/COCCYX [...] COPY TO: MARYLU VALDOVINOS MD LUMBAR 3 EALK9561-07-04 22:36:[address] [place] [address] Patient Name: STEPHANIE CAMERON MR #: [id number] : 1960 Age/Sex: 58/F Req #: [id number] Adm Physician: Ordered by: MARYLU VALDOVINOS MD [...] PM Dictate d By: ELVIE MAI MD 2 237 Transcribed By: SCOTT on 12/22/18 4771 COPY TO: DEION VALDOVINOS MD Blood Lzaxbqn2390-14-74 18:18:00* Test Item Value Reference Range Interpretation Comments Blood Culture (test code = 90029062) NO GROWTH AFTER 5 DAYS, FINAL REPORT [facility]2018-12-11 18:18:00* Test Item Value Reference Range Interpretation Comments Blood Culture (test code = 50932417) NO GROWTH AFTER 5 DAYS, FINAL REPORT [facility] Casgncv5782-49-21 18:18:00* Test Item Value Reference Range Interpretation Comments Blood Culture (test code = 85817294) NO GROWTH AFTER 5 DAYS, FINAL REPORT [facility] Kaozdfp3643-00-82 18:18:00* Test Item Value Reference Range Interpretation Comments Blood Culture (test code = 11317754) NO GROWTH AFTER 5 DAYS, FINAL REPORT [facility] Jnfvfij4537-91-40 18:18:00* Test Item Value Reference Range Interpretation Comments Blood Culture (test code = 43200456) NO GROWTH AFTER 5 DAYS, FINAL REPORT [facility]2018-12-11 18:18:00* Test Item Value Reference Range Interpretation Comments Blood Culture (test code = 93184394) NO GROWTH AFTER 5 DAYS, FINAL REPORT [facility] Awryhev2298-51-37 18:18:00* Test Item Value Reference Range Interpretation Comments Blood Culture (test code = 90251928) NO GROWTH AFTER 5 DAYS, FINAL REPORT [facility] Fqlqrdk1274-64-24 18:18:00* Test Item Value Reference Range Interpretation Comments Blood Culture (test code = 09911596) NO GROWTH AFTER 5 DAYS, FINAL REPORT [facility] Ttaoyfr9836-94-34 11:32:00* Test Item Value Reference Range Interpretation Comments Bedside Glucose (test code = 89163-1) 172 70-120 H Meter ID: [id number] Glucose 2018-10-06 11:32:00* Test Item Value Reference Range Interpretation Comments Bedside Glucose (test code = 37377-8) 172 70-120 H Meter ID: [id number] [facility] Worthodium Level 2018-10-06 06:14:00* Test Item Value Reference Range Interpretation Comments Sodium Level (test code = 2951-2) 138 136-145 [facility] HospitalPotassium Ogvju1958-02-01 06:14:00* Test Item Value Reference Range Interpretation Comments Potassium Level (test code = 2823-3) 4.6 3.5-5.1 [facility] HospitalChloride Silmr0205-88-38 06:14:00* Test Item Value Reference Range Interpretation Comments Chloride Level (test code = 2075-0) 108 98-107 H [facility] HospitalCarbon Dioxide Jwvod6079-27-42 06:14:00* Test Item Value Reference Range Interpretation Comments Carbon Dioxide Level (test code = 2028-9) 21 22-29 L [facility] HospitalAnion Udh9572-66-98 06:14:00* Test Item Value Reference Range Interpretation Comments Anion Gap (test code = 19476-0) 13.6 8-16 [facility] HospitalBlood Urea Ptyvfewf3282-77-96 06:14:00* Test Item Value Reference Range Interpretation Comments Blood Urea Nitrogen (test code = 3094-0) 20 7-26 [facility] HospitalCreatinine2018-12-07 06:14:00* Test Item Value Reference Range Interpretation Comments Creatinine (test code = 2160-0) 0.78 0.57-1.11 [facility] HospitalBUN/Creatinine Xwebo0536-07-95 06:14:00* Test Item Value Reference Range Interpretation Comments BUN/Creatinine Ratio (test code = 3097-3) 26 6-25 H [facility] HospitalEstimat Glomerular Filtration Rate 2018-10-06 06:14:00* Test Item Value Reference Range Interpretation Comments Estimat Glomerular Filtration Rate (test code = 190248974) > 60 >60 Ranges were taken from the National Kidney Disease Education Program and the [facility] literature.Reference ranges:60 or greater: Xbpeqv70-81 ( for 3 consecutive months): Chronic kidney disease 15 or less: Kidney failureParkland Memorial HospitalGlucose Tmyyl1283-25-31 06:14:00* Test Item Value Reference Range Interpretation Comments Glucose Level (test code = LHV1411) 184 74-118 H [facility] HospitalCalcium Eakwp2282-30-45 06:14:00* Test Item Value Reference Range Interpretation Comments Calcium Level (test code = 91090-1) 8.4 8.4-10.2 [facility] HospitalTotal Wbzgiewxn1363-76-97 06:14:00* Test Item Value Reference Range Interpretation Comments Total Bilirubin (test code = 1975-2) 0.1 0.2-1.2 L [facility] HospitalAspartate Amino Transf (AST/SGOT) 2018-10-06 06:14:00* Test Item Value Reference Range Interpretation Comments Aspartate Amino Transf (AST/SGOT) (test code = Aspartate Amino Transf (AST/SGOT)) 10 5-34 [facility] HospitalAlanine Aminotransferase (ALT/SGPT) 2018-10-06 06:14:00* Test Item Value Reference Range Interpretation Comments Alanine Aminotransferase (ALT/SGPT) (test code = 1742-6) 6 0-55 [facility] HospitalTotal Fyrozcb2194-64-30 06:14:00* Test Item Value Reference Range Interpretation Comments Total Protein (test code = 2885-2) 5.8 6.5-8.1 L [facility] HospitalAlbumin2018-12-07 06:14:00* Test Item Value Reference Range Interpretation Comments Albumin (test code = 1751-7) 2.7 3.5-5.0 L [facility] HospitalGlobulin2018-12-07 06:14:00* Test Item Value Reference Range Interpretation Comments Globulin (test code = 79478-5) 3.1 2.3-3.5 [facility] HospitalAlbumin/Globulin Bqoix9938-21-08 06:14:00 * Test Item Value Reference Range Interpretation Comments Albumin/Globulin Ratio (test code = 1759-0) 0.9 0.8-2.0 [facility] HospitalAlkaline Dyevyowscss8006-15-61 06:14:00* Test Item Value Reference Range Interpretation Comments Alkaline Phosphatase (test code = 6768-6) 118 40-150 [facility] Worthodium Fctvy5670-47-45 06:14:00* Test Item Value Reference Range Interpretation Comments Sodium Level (test code = 2951-2) 138 136-145 [facility] HospitalPotassium Jqgrt0534-00-30 06:14:00* Test Item Value Reference Range Interpretation Comments Potassium Level (test code = 2823-3) 4.6 3.5-5.1 [facility] HospitalChloride Fayhd0388-85-85 06:14:00* Test Item Value Reference Range Interpretation Comments Chloride Level (test code = 2075-0) 108 98-107 H [facility] HospitalCarbon Dioxide Wpecp1236-86-68 06:14:00* Test Item Value Reference Range Interpretation Comments Carbon Dioxide Level (test code = 2028-9) 21 22-29 L [facility] HospitalAnion Toy6475-83-28 06:14:00* Test Item Value Reference Range Interpretation Comments Anion Gap (test code = 52104-0) 13.6 8-16 [facility] HospitalBlood Urea Eipuwfij4087-11-21 06:14:00* Test Item Value Reference Range Interpretation Comments Blood Urea Nitrogen (test code = 3094-0) 20 7-26 [facility] HospitalCreatinine2018-12-07 06:14:00* Test Item Value Reference Range Interpretation Comments Creatinine (test code = 2160-0) 0.78 0.57-1.11 [facility] HospitalBUN/Creatinine Dduwo4148-81-96 06:14:00* Test Item Value Reference Range Interpretation Comments BUN/Creatinine Ratio (test code = 3097-3) 26 6-25 H [facility] HospitalEstimat Glomerular Filtration Rate 2018-10-06 06:14:00* Test Item Value Reference Range Interpretation Comments Estimat Glomerular Filtration Rate (test code = 047692054) > 60 >60 Ranges were taken from the National Kidney Disease Education Program and the [facility] literature.Reference ranges:60 or greater: Arphmv94-29 ( for 3 consecutive months): Chronic kidney disease 15 or less: Kidney failureParkland Memorial HospitalGlucose Gipij4055-89-75 06:14:00* Test Item Value Reference Range Interpretation Comments Glucose Level (test code = HWX0708) 184 74-118 H [facility] HospitalCalcium Hghtm5363-98-26 06:14:00* Test Item Value Reference Range Interpretation Comments Calcium Level (test code = 03737-2) 8.4 8.4-10.2 [facility] HospitalTotal Evpeptlzr9131-82-44 06:14:00* Test Item Value Reference Range Interpretation Comments Total Bilirubin (test code = 1975-2) 0.1 0.2-1.2 L [facility] HospitalAspartate Amino Transf (AST/SGOT) 2018-10-06 06:14:00* Test Item Value Reference Range Interpretation Comments Aspartate Amino Transf (AST/SGOT) (test code = Aspartate Amino Transf (AST/SGOT)) 10 5-34 [facility] HospitalAlanine Aminotransferase (ALT/SGPT) 2018-10-06 06:14:00* Test Item Value Reference Range Interpretation Comments Alanine Aminotransferase (ALT/SGPT) (test code = 1742-6) 6 0-55 [facility] HospitalTotal Ulejgeb1780-44-93 06:14:00* Test Item Value Reference Range Interpretation Comments Total Protein (test code = 2885-2) 5.8 6.5-8.1 L [facility] HospitalAlbumin2018-12-07 06:14:00* Test Item Value Reference Range Interpretation Comments Albumin (test code = 1751-7) 2.7 3.5-5.0 L [facility] HospitalGlobulin2018-12-07 06:14:00* Test Item Value Reference Range Interpretation Comments Globulin (test code = 60210-0) 3.1 2.3-3.5 [facility] HospitalAlbumin/Globulin Ujryf2146-78-07 06:14:00 * Test Item Value Reference Range Interpretation Comments Albumin/Globulin Ratio (test code = 1759-0) 0.9 0.8-2.0 [facility] HospitalAlkaline Lfvysnijsnt8923-05-26 06:14:00* Test Item Value Reference Range Interpretation Comments Alkaline Phosphatase (test code = 6768-6) 118 40-150 [facility] HospitalCreatine Kinase ZE7688-21-12 05:51:00* Test Item Value Reference Range Interpretation Comments Creatine Kinase MB (test code = 66307-8) 1.20 0-5.0 [facility] HospitalTroponin O6707-69-22 05:51:00* Test Item Value Reference Range Interpretation Comments Troponin I (test code = TVG9957) < 0.001 0-0.300 [facility] HospitalCreatine Kinase FO3288-29-44 05:51:00* Test Item Value Reference Range Interpretation Comments Creatine Kinase MB (test code = 47406-5) 1.20 0-5.0 [facility] HospitalTroponin D7955-82-57 05:51:00* Test Item Value Reference Range Interpretation Comments Troponin I (test code = ZFJ0414) < 0.001 0-0.300 [facility] HospitalCreatine Bqdglu8606-23-97 05:41:00* Test Item Value Reference Range Interpretation Comments Creatine Kinase (test code = 2157-6) 53 29-168 [facility] HospitalCreatine Vxqibv9223-40-06 05:41:00* Test Item Value Reference Range Interpretation Comments Creatine Kinase (test code = 2157-6) 53 29-168 [facility] HospitalWhite Blood Hmyol7883-56-37 05:39:00* Test Item Value Reference Range Interpretation Comments White Blood Count (test code = 6690-2) 11.31 4.8-10.8 H [facility] HospitalRed Blood Xulcq5435-22-19 05:39:00* Test Item Value Reference Range Interpretation Comments Red Blood Count (test code = 789-8) 4.00 3.6-5.1 [facility] HospitalHemoglobin2018-12-07 05:39:00* Test Item Value Reference Range Interpretation Comments Hemoglobin (test code = 22457-6) 10.0 12.0-16.0 L [facility] HospitalHematocrit2018-12-07 05:39:00* Test Item Value Reference Range Interpretation Comments Hematocrit (test code = 4544-3) 32.5 34.2-44.1 L [facility] HospitalMean Corpuscular Ecbtbl1087-95-10 05:39:00* Test Item Value Reference Range Interpretation Comments Mean Corpuscular Volume (test code = 787-2) 81.3 81-99 [facility] HospitalMean Corpuscular Kvcrsibxbm8592-46-31 05:39:00* Test Item Value Reference Range Interpretation Comments Mean Corpuscular Hemoglobin (test code = 785-6) 25.0 28-32 L [facility] HospitalMean Corpuscular Hemoglobin Concent 2018-10-06 05:39:00* Test Item Value Reference Range Interpretation Comments Mean Corpuscular Hemoglobin Concent (test code = 786-4) 30.8 31-35 L [facility] HospitalRed Cell Distribution Cqmcz0892-43-84 05:39:00* Test Item Value Reference Range Interpretation Comments Red Cell Distribution Width (test code = 03633-2) 19.1 11.7 -14.4 H [facility] HospitalPlatelet Bqdon2911-82-78 05:39:00* Test Item Value Reference Range Interpretation Comments Platelet Count (test code = 777-3) 369 140-360 H [facility] HospitalNeutrophils (%) (Auto)2018-10-06 05:39:00 * Test Item Value Reference Range Interpretation Comments Neutrophils (%) (Auto) (test code = 84807-1) 64.7 38.7-80.0 [facility] HospitalLymphocytes (%) (Auto)2018-10-06 05:39:00 * Test Item Value Reference Range Interpretation Comments Lymphocytes (%) (Auto) (test code = 736-9) 26.9 18.0-39.1 [facility] HospitalMonocytes (%) (Auto)2018-10-06 05:39:00* Test Item Value Reference Range Interpretation Comments Monocytes (%) (Auto) (test code = 5905-5) 6.5 4.4-11.3 [facility] HospitalEosinophils (%) (Auto)2018-10-06 05:39:00 * Test Item Value Reference Range Interpretation Comments Eosinophils (%) (Auto) (test code = 713-8) 1.1 0.0-6.0 [facility] HospitalBasophils (%) (Auto)2018-10-06 05:39:00* Test Item Value Reference Range Interpretation Comments Basophils (%) (Auto) (test code = 706-2) 0.4 0.0-1.0 [facility] HospitalIM GRANULOCYTES %2018-10-06 05:39:00* Test Item Value Reference Range Interpretation Comments IM GRANULOCYTES % (test code = IM GRANULOCYTES %) 0.4 0.0- 1.0 [facility]Neut[facility]ils # (Auto)2018-10-06 05:39:00* Test Item Value Reference Range Interpretation Comments Neutrophils # (Auto) (test code = 751-8) 7.3 2.1-6.9 H [facility]Lymphocytes # (Auto)2018-10-06 05:39:00* Test Item Value Reference Range Interpretation Comments Lymphocytes # (Auto) (test code = 23748-6) 3.0 1.0-3.2 [facility] (Auto)2018-10-06 05:39:00* Test Item Value Reference Range Interpretation Comments Monocytes # (Auto) (test code = 742-7) 0.7 0.2-0.8 [facility] (Auto)2018-10-06 05:39:00* Test Item Value Reference Range Interpretation Comments Eosinophils # (Auto) (test code = 711-2) 0.1 0.0-0.4 [facility] (Auto)2018-10-06 05:39:00* Test Item Value Reference Range Interpretation Comments Basophils # (Auto) (test code = 704-7) 0.0 0.0-0.1 [facility] HospitalAbsolute Immature Granulocyte (auto 2018-10-06 05:39:00* Test Item Value Reference Range Interpretation Comments Absolute Immature Granulocyte (auto (romelia t code = Absolute Immature Granulocyte (auto) 0.04 0-0.1 [facility] HospitalWhite Blood Edfhr9760-45-61 05:39:00* Test Item Value Reference Range Interpretation Comments White Blood Count (test code = 6690-2) 11.31 4.8-10.8 H [facility] HospitalRed Blood Nwusk5489-96-63 05:39:00* Test Item Value Reference Range Interpretation Comments Red Blood Count (test code = 789-8) 4.00 3.6-5.1 [facility] HospitalHemoglobin2018-12-07 05:39:00* Test Item Value Reference Range Interpretation Comments Hemoglobin (test code = 91530-9) 10.0 12.0-16.0 L [facility] HospitalHematocrit2018-12-07 05:39:00* Test Item Value Reference Range Interpretation Comments Hematocrit (test code = 4544-3) 32.5 34.2-44.1 L [facility] HospitalMean Corpuscular Nszovp2767-11-04 05:39:00* Test Item Value Reference Range Interpretation Comments Mean Corpuscular Volume (test code = 787-2) 81.3 81-99 [facility] HospitalMean Corpuscular Reundssghp1401-88-85 05:39:00* Test Item Value Reference Range Interpretation Comments Mean Corpuscular Hemoglobin (test code = 785-6) 25.0 28-32 L [facility] HospitalMean Corpuscular Hemoglobin Concent 2018-10-06 05:39:00* Test Item Value Reference Range Interpretation Comments Mean Corpuscular Hemoglobin Concent (test code = 786-4) 30.8 31-35 L [facility] HospitalRed Cell Distribution Jgxhf7428-04-63 05:39:00* Test Item Value Reference Range Interpretation Comments Red Cell Distribution Width (test code = 30036-4) 19.1 11.7 -14.4 H [facility] HospitalPlatelet Pwbkh1156-63-05 05:39:00* Test Item Value Reference Range Interpretation Comments Platelet Count (test code = 777-3) 369 140-360 H [facility] HospitalNeutrophils (%) (Auto)2018-10-06 05:39:00 * Test Item Value Reference Range Interpretation Comments Neutrophils (%) (Auto) (test code = 33710-3) 64.7 38.7-80.0 [facility] HospitalLymphocytes (%) (Auto)2018-10-06 05:39:00 * Test Item Value Reference Range Interpretation Comments Lymphocytes (%) (Auto) (test code = 736-9) 26.9 18.0-39.1 [facility] HospitalMonocytes (%) (Auto)2018-10-06 05:39:00* Test Item Value Reference Range Interpretation Comments Monocytes (%) (Auto) (test code = 5905-5) 6.5 4.4-11.3 [facility] HospitalEosinophils (%) (Auto)2018-10-06 05:39:00 * Test Item Value Reference Range Interpretation Comments Eosinophils (%) (Auto) (test code = 713-8) 1.1 0.0-6.0 [facility] HospitalBasophils (%) (Auto)2018-10-06 05:39:00* Test Item Value Reference Range Interpretation Comments Basophils (%) (Auto) (test code = 706-2) 0.4 0.0-1.0 [facility] HospitalIM GRANULOCYTES %2018-10-06 05:39:00* Test Item Value Reference Range Interpretation Comments IM GRANULOCYTES % (test code = IM GRANULOCYTES %) 0.4 0.0- 1.0 [facility] HospitalNeutrophils # (Auto)2018-10-06 05:39:00* Test Item Value Reference Range Interpretation Comments Neutrophils # (Auto) (test code = 751-8) 7.3 2.1-6.9 H [facility] HospitalLymphocytes # (Auto)2018-10-06 05:39:00* Test Item Value Reference Range Interpretation Comments Lymphocytes # (Auto) (test code = 39639-5) 3.0 1.0-3.2 [facility] HospitalMonocytes # (Auto)2018-10-06 05:39:00* Test Item Value Reference Range Interpretation Comments Monocytes # (Auto) (test code = 742-7) 0.7 0.2-0.8 [facility] HospitalEosinophils # (Auto)2018-10-06 05:39:00* Test Item Value Reference Range Interpretation Comments Eosinophils # (Auto) (test code = 711-2) 0.1 0.0-0.4 [facility] HospitalBasophils # (Auto)2018-10-06 05:39:00* Test Item Value Reference Range Interpretation Comments Basophils # (Auto) (test code = 704-7) 0.0 0.0-0.1 [facility] HospitalAbsolute Immature Granulocyte (auto 2018-10-06 05:39:00* Test Item Value Reference Range Interpretation Comments Absolute Immature Granulocyte (auto (romelia t code = Absolute Immature Granulocyte (auto) 0.04 0-0.1 [facility] HospitalLactic Acid Csimw6905-29-14 00:11:00* Test Item Value Reference Range Interpretation Comments Lactic Acid Level (test code = Lactic Acid Level) 10.1 4.5- 19.8 [facility] HospitalLactic Acid Qkjkx7375-16-15 00:11:00* Test Item Value Reference Range Interpretation Comments Lactic Acid Level (test code = Lactic Acid Level) 10.1 4.5- 19.8 [facility] Acid Pwabd5427-95-47 00:11:00* Test Item Value Reference Range Interpretation Comments Lactic Acid Level (test code = Lactic Acid Level) 10.1 4.5- 19.8 [facility] HospitalLactic Acid Dmbxs3543-47-39 00:11:00* Test Item Value Reference Range Interpretation Comments Lactic Acid Level (test code = Lactic Acid Level) 10.1 4.5- 19.8 [facility] Doqbk8364-01-48 00:11:00* Test Item Value Reference Range Interpretation Comments Lactic Acid Level (test code = Lactic Acid Level) 10.1 4.5- 19.8 [facility] HospitalLactic Acid Xoagx3887-29-26 00:11:00* Test Item Value Reference Range Interpretation Comments Lactic Acid Level (test code = Lactic Acid Level) 10.1 4.5- 19.8 [facility] HospitalLactic Acid Eoghs8300-64-08 00:11:00* Test Item Value Reference Range Interpretation Comments Lactic Acid Level (test code = Lactic Acid Level) 10.1 4.5- 19.8 [facility] HospitalLactic Acid Tsmze9252-70-34 00:11:00* Test Item Value Reference Range Interpretation Comments Lactic Acid Level (test code = Lactic Acid Level) 10.1 4.5- 19.8 [facility] HospitalLactic Acid Gxhvg6388-74-08 00:11:00* Test Item Value Reference Range Interpretation Comments Lactic Acid Level (test code = Lactic Acid Level) 10.1 4.5- 19.8 [facility] HospitalCT [facility]BDOM[facility]PELVIS AC7016-96-36 22:49:00 [facility] [place] [address] Patient Name: STEPHANIE CAMERON MR #: [id number] : [birth year] Age/Sex: 58/F Req #: [id number] Adm Physician: Ordered by: JUAN CARLOS CAT MD Report #: [id number] Location: ER Room/Bed: Procedure: [id number] C T/CT ABDOMEN/PELVIS WO Exam Date: 10/05/18 [...] CARLOS CAT MD CHEST SINGLE (PORTABLE)2018-10-05 20:49:00 [place] [address] Patient Name: STEPHANIE CAMERON MR #: [id number] : 1960 Age/Sex: 58/F Req #: [id number] Adm Physician: Ordered by: JUAN CARLOS CAT MD Report #: [id number] Location: ER Room/Bed: Procedure: [id number] D X/CHEST SINGLE (PORTABLE) Exam Date: 10/05/18 [...] MD 49 COPY TO: KATHYA CAT MD Urine DGR2262-78-97 19:10:00* Test Item Value Reference Range Interpretation Comments Urine WBC (test code = 5821-4) 0-5 0-5 [facility] HospitalUrine EFG3973-04-08 19:10:00* Test Item Value Reference Range Interpretation Comments Urine RBC (test code = 70598-3) 0-5 0-5 [facility] HospitalUrine Gekxupal4561-97-48 19:10:00* Test Item Value Reference Range Interpretation Comments Urine Bacteria (test code = 18849-6) FEW NONE [facility] HospitalUrine Epithelial Ersuz8909-35-12 19:10:00 * Test Item Value Reference Range Interpretation Comments Urine Epithelial Cells (test code = 43965-4) FEW NONE [facility] HospitalUrine Amorphous Vigkffpv2560-62-60 19:10:00* Test Item Value Reference Range Interpretation Comments Urine Amorphous Sediment (test code = 8246-1) MODERATE FEW H [facility] HospitalUrine CLD1482-86-20 19:10:00* Test Item Value Reference Range Interpretation Comments Urine WBC (test code = 5821-4) 0-5 0-5 [facility] HospitalUrine VCD0155-14-91 19:10:00* Test Item Value Reference Range Interpretation Comments Urine RBC (test code = 84314-2) 0-5 0-5 [facility] HospitalUrine Byluipgn4582-51-38 19:10:00* Test Item Value Reference Range Interpretation Comments Urine Bacteria (test code = 41278-7) FEW NONE [facility] HospitalUrine Epithelial Fbffr1890-74-08 19:10:00 * Test Item Value Reference Range Interpretation Comments Urine Epithelial Cells (test code = 20307-2) FEW NONE [facility] HospitalUrine Amorphous Oorwrwlj0879-22-19 19:10:00* Test Item Value Reference Range Interpretation Comments Urine Amorphous Sediment (test code = 8246-1) MODERATE FEW H [facility] Amorphous Zzkbvuss6249-23-95 19:10:00* Test Item Value Reference Range Interpretation Comments Urine Amorphous Sediment (test code = 8246-1) MODERATE FEW H [facility] Amorphous Vmpfkbjf2767-45-33 19:10:00* Test Item Value Reference Range Interpretation Comments Urine Amorphous Sediment (test code = 8246-1) MODERATE FEW H [facility] Amorphous Fbhggbbb0621-71-86 19:10:00* Test Item Value Reference Range Interpretation Comments Urine Amorphous Sediment (test code = 8246-1) MODERATE FEW H [facility] Amorphous Zduftmdi6800-43-58 19:10:00* Test Item Value Reference Range Interpretation Comments Urine Amorphous Sediment (test code = 8246-1) MODERATE FEW H [facility] Amorphous Dtewuauq0264-15-82 19:10:00* Test Item Value Reference Range Interpretation Comments Urine Amorphous Sediment (test code = 8246-1) MODERATE FEW H [facility] Amorphous Btuhabry8379-27-21 19:10:00* Test Item Value Reference Range Interpretation Comments Urine Amorphous Sediment (test code = 8246-1) MODERATE FEW H [facility] Amorphous Xrfirfiq5414-11-02 19:10:00* Test Item Value Reference Range Interpretation Comments Urine Amorphous Sediment (test code = 8246-1) MODERATE FEW H [facility]2018-12-06 18:51:00* Test Item Value Reference Range Interpretation Comments Lipase (test code = 3040-3) [facility]2018-12-06 18:51:00* Test Item Value Reference Range Interpretation Comments Lipase (test code = 3040-3) [facility]2018-12-06 18:51:00* Test Item Value Reference Range Interpretation Comments Lipase (test code = 3040-3) [facility]2018-12-06 18:51:00* Test Item Value Reference Range Interpretation Comments Lipase (test code = 3040-3) [facility]Lip[facility]2018-12-06 18:51:00* Test Item Value Reference Range Interpretation Comments Lipase (test code = 3040-3) [facility] HospitalLipase2018-12-06 18:51:00* Test Item Value Reference Range Interpretation Comments Lipase (test code = 3040-3) [facility] HospitalLipase2018-12-06 18:51:00* Test Item Value Reference Range Interpretation Comments Lipase (test code = 3040-3) [facility] HospitalLipase2018-12-06 18:51:00* Test Item Value Reference Range Interpretation Comments Lipase (test code = 3040-3) [facility]Lipase2018-12-06 18:51:00* Test Item Value Reference Range Interpretation Comments Lipase (test code = 3040-3) [facility] HospitalUrine Wldbk7714-10-00 18:50:00* Test Item Value Reference Range Interpretation Comments Urine Color (test code = 5778-6) YELLOW YELLOW [facility] Awgqxap2338-48-95 18:50:00* Test Item Value Reference Range Interpretation Comments Urine Clarity (test code = 71001-7) CLEAR CLEAR [facility] HospitalUrine Specific Ryudyht4652-10-03 18:50:00 * Test Item Value Reference Range Interpretation Comments Urine Specific [place] (test code = 5811-5) 1.020 1.010-1.02 5 [facility] HospitalUrine xT2607-14-54 18:50:00* Test Item Value Reference Range Interpretation Comments Urine pH (test code = 82301-4) 5 5-7 [facility] Leukocyte Onencvbz7881-54-60 18:50:00* Test Item Value Reference Range Interpretation Comments Urine Leukocyte Esterase (test code = 5799-2) NEGATIVE NEGATIVE [facility] HospitalU[facility] Qkryzhw5716-45-58 18:50:00* Test Item Value Reference Range Interpretation Comments Urine Nitrite (test code = 37102-3) NEGATIVE NEGATIVE [facility] Elwtryq7567-69-28 18:50:00* Test Item Value Reference Range Interpretation Comments Urine Protein (test code = 5804-0) NEGATIVE NEGATIVE [facility] Glucose (UA)2018-10-05 18:50:00* Test Item Value Reference Range Interpretation Comments Urine Glucose (UA) (test code = 2349-9) NEGATIVE NEGATIVE [facility] HospitalU[facility] Kxvxems5554-23-72 18:50:00* Test Item Value Reference Range Interpretation Comments Urine Ketones (test code = 52506-0) NEGATIVE NEGATIVE [facility] Vcrgtdiqmdxt0764-52-42 18:50:00* Test Item Value Reference Range Interpretation Comments Urine Urobilinogen (test code = 55346-4) 0.2 0.2-1 [facility] Hwdddcjwk6649-82-85 18:50:00* Test Item Value Reference Range Interpretation Comments Urine Bilirubin (test code = 1978-6) NEGATIVE NEGATIVE [facility] Qojao2199-04-34 18:50:00* Test Item Value Reference Range Interpretation Comments Urine Blood (test code = 30369-4) NEGATIVE NEGATIVE [facility] Bczan6452-16-27 18:50:00* Test Item Value Reference Range Interpretation Comments Urine Color (test code = 5778-6) YELLOW YELLOW [facility] HospitalUrine Cplbufn6684-77-13 18:50:00* Test Item Value Reference Range Interpretation Comments Urine Clarity (test code = 59152-5) CLEAR CLEAR [facility] HospitalU[facility] Specific Kchgfdp5517-77-10 18:50:00 * Test Item Value Reference Range Interpretation Comments Urine Specific [place] (test code = 5811-5) 1.020 1.010-1.02 5 [facility] HospitalU[facility] xU7009-62-44 18:50:00* Test Item Value Reference Range Interpretation Comments Urine pH (test code = 27592-9) 5 5-7 [facility] Leukocyte Qiiergas2883-03-22 18:50:00* Test Item Value Reference Range Interpretation Comments Urine Leukocyte Esterase (test code = 5799-2) NEGATIVE NEGATIVE [facility] HospitalU[facility] Etnylcy7667-54-41 18:50:00* Test Item Value Reference Range Interpretation Comments Urine Nitrite (test code = 50198-5) NEGATIVE NEGATIVE [facility] HospitalU[facility] Duordeb7359-52-76 18:50:00* Test Item Value Reference Range Interpretation Comments Urine Protein (test code = 5804-0) NEGATIVE NEGATIVE [facility] Glucose (UA)2018-10-05 18:50:00* Test Item Value Reference Range Interpretation Comments Urine Glucose (UA) (test code = 2349-9) NEGATIVE NEGATIVE [facility] Vreapjg0411-40-80 18:50:00* Test Item Value Reference Range Interpretation Comments Urine Ketones (test code = 51104-4) NEGATIVE NEGATIVE [facility] HospitalU[facility] Opiktdlbklsz9244-99-73 18:50:00* Test Item Value Reference Range Interpretation Comments Urine Urobilinogen (test code = 31761-8) 0.2 0.2-1 [facility] Cpibqrgwj6782-47-25 18:50:00* Test Item Value Reference Range Interpretation Comments Urine Bilirubin (test code = 1978-6) NEGATIVE NEGATIVE [facility] HospitalUrine Hvhsr7916-57-06 18:50:00* Test Item Value Reference Range Interpretation Comments Urine Blood (test code = 83281-5) NEGATIVE NEGATIVE [facility] HospitalDRUG TSWNBD6682-29-96 18:54:00Negative *NA*(06/12/18 1:54 PM)[facility] HermannDR[facility] NRGHFW0554-38-14 18:54:00Negative *NA*(06/12/18 1:54 PM)[facility]DR[facility] UJEAOS4195-12-12 18:54:00Negative *NA*(06/12/18 1:54 PM)[facility]DR[facility] NEEFIJ5929-87-96 18:54:00Negative *NA*(06/12/18 1:54 PM)[facility]DR[facility] HHJGGZ1894-93-69 18:54:00Negative *NA*(06/12/18 1:54 PM)[facility] RAKYSP1072-16-97 18:54:00Negative *NA*(06/12/18 1:54 PM)[facility] GRWBIF6914-84-69 18:54:00See Note (06/12/18 1:54 PM)[facility] ZJXSAS0871-35-36 18:54:00Positive *ABN*(06/12/18 1:54 PM)[facility] HGEOY2863-79-09 18:54:001 [facility] RCUSS6814-62-97 18:54:00Negative (06/12/18 1:54 PM) [facility] UDYIG5524-76-84 18:54:001[facility] CATJA5556-77-81 18:54:00Negative (06/12/18 1:54 PM)[facility] PJOQH1861-79-07 18:54:00* Test Item Value Reference Range Interpretation Comments UA Spec Grav (test code = UA Spec Grav) 1.008 1 [facility] IXBIQ5593-54-79 18:54:00* Test Item Value Reference Range Interpretation Comments UA pH (test code = UA pH) 6.0 1 5.0-8.0 [facility] BAEVK1594-94-12 18:54:00Clear (06/12/18 1:54 PM) [facility] AFBVQ4559-86-57 18:54:00Negative (06/12/18 1:54 PM) [facility] UIJYG4929-14-54 18:54:00Negative *NA*(06/12/18 1:54 PM) [facility]annCARDIAC CJIFHJH4051-66-28 08:17:00<0.02[facility]annCARDIAC MEEOQYR0454-10-24 08:17:0038[facility]annCARDIAC IGFBDOR7718-28-64 03:11:00< 0.02[facility]annCARDIAC ZRJYPOS9531-88-65 03:11:0050[facility] HermannCARDIAC FETZQUP3572-26-31 19:44:0055[facility] HermannCARDIAC JAYNLTP6825-63-61 19:44:00< 0.02[facility] LyubjxeIAOTASKZEZXL5642-39-98 19:44:0012.7[facility] KLRSNHIOWSZT9344-70-14 19:44:0061[facility] CpjkynmNBNVQGVZFXBR7185-39-08 19:44:00 8.9[facility] HdhnhnoVRPAAESAHYWX2617-17-52 19:44:86599Lyalahci Shabbir TJBKUYZAPSSP5224-31-88 19:44:001.03[facility] EjikgmgBMYKOFEFXRJP3010-94-71 19:44:95365Qwjmzkda NlomjecOSSTDBAQQQVW1812-54-55 19:44:004.7[facility] EDJLKSSIHPBX9371-91-07 19:44:0028[facility] IlkvwmyAFMJZUBPTMKU2709-02-08 19:44:00 20[facility] KhnvnqjEAEOUPCFRMSC5902-45-42 19:44:09327Cbbjughx HermannHEMATOLOGY 2018-06-11 19:44:0068.0[facility] FaaujztJCHFIVGUAF3843-15-87 19:44:000.5[facility] ChkhcqoKKTFUQBVWS0306-33-69 19:44:000.1[facility] EfisoqmPEABWZPKYU9383-15-04 19:44:002.8[facility] NjzdlfhFFKJSAFGMO0343-52-54 19:44:004.4[facility] QRHQUNKMDR3949-71-33 19:44:000.1[facility] AchpnymUESACKUKTW3765-50-22 19:44:007.3 [facility] SilqwkeFYKJDYAYHO3461-12-72 19:44:001.1[facility] HermannHEMATOLOGY 2018-06-11 19:44:000.5[facility] OrnaxqaRQNUXFBSZI5177-80-76 19:44:0026.0[facility] TfimjgpBCWFCHHFRL5044-77-36 19:44:0032.6[facility] MjfrqtcAXVBLOIURG3862-06-20 19:44:0079.1[facility] DzhjlzpQGXLVZOHWS9048-83-23 19:44:00* Test Item Value Reference Range Interpretation Comments MCH (test code = MCH) 25.7 pg 27.0-31.0 [facility] KwavmxfBBKNAKSNVW2512-26-47 19:44:0032.6[facility] HermannHEMATOLOGY 2018-06-11 19:44:0019.4[facility] BiprngrJLOCLOYGNP1230-89-19 19:44:74817Ixscadtj SgunufbXNOEXPWKWS9368-90-32 19:44:007.4[facility] MjrhjmqKIBZAQLUEI6447-67-47 19:44:0010.6[facility] PbflrsbELOEPKEAWH4123-52-88 19:44:0010.8[facility] SQRTZWQNFX6485-43-15 19:44:004.13[facility] HermannPotassium Vntqx5163-47-96 20:20:00* Test Item Value Reference Range Interpretation Comments Potassium Level (test code = 2823-3) 4.6 3.5-5.1 [facility] HospitalCreatine Kinase MF5166-60-22 19:38:00* Test Item Value Reference Range Interpretation Comments Creatine Kinase MB (test code = 40261-1) 0.80 0-5.0 [facility] HospitalTroponin C5565-44-25 19:38:00* Test Item Value Reference Range Interpretation Comments Troponin I (test code = EHU1131) -0.001 0-0.300 [facility] HospitalB-Type Natriuretic Mfbwngu5845-53-08 19:32:00* Test Item Value Reference Range Interpretation Comments B-Type Natriuretic Peptide (test code = 91638-2) 37.5 0-100 [facility] HospitalB-Type Natriuretic Vmxtjud6810-20-30 19:32:00* Test Item Value Reference Range Interpretation Comments B-Type Natriuretic Peptide (test code = 36293-2) 37.5 0-100 [facility] HospitalB-Type Natriuretic Fhxftzr5223-46-02 19:32:00* Test Item Value Reference Range Interpretation Comments B-Type Natriuretic Peptide (test code = 18253-1) 37.5 0-100 [facility] Lzjty8834-51-29 19:31:00* Test Item Value Reference Range Interpretation Comments Sodium Level (test code = 2951-2) 136 136-145 [facility] HospitalChloride Tfnva7959-46-41 19:31:00* Test Item Value Reference Range Interpretation Comments Chloride Level (test code = 2075-0) 100 98-107 [facility] HospitalCarbon Dioxide Qovmy6769-29-68 19:31:00* Test Item Value Reference Range Interpretation Comments Carbon Dioxide Level (test code = 2028-9) 25 22-29 [facility] HospitalAnion Acp2327-13-74 19:31:00* Test Item Value Reference Range Interpretation Comments Anion Gap (test code = 09168-3) 16.5 8-16 H [facility] HospitalBlood Urea Ylqppzko6551-91-66 19:31:00* Test Item Value Reference Range Interpretation Comments Blood Urea Nitrogen (test code = 3094-0) 21 7-26 [facility] HospitalCreatinine2018-08-06 19:31:00* Test Item Value Reference Range Interpretation Comments Creatinine (test code = 2160-0) 1.03 0.57-1.11 [facility] HospitalBUN/Creatinine Jdnpq5880-09-79 19:31:00* Test Item Value Reference Range Interpretation Comments BUN/Creatinine Ratio (test code = 3097-3) 20 6-25 [facility] HospitalEstimat Glomerular Filtration Rate 2018-06-05 19:31:00* Test Item Value Reference Range Interpretation Comments Estimat Glomerular Filtration Rate (test code = 39375-2) 55 >60 L Ranges were taken from the National Kidney Disease Education Program and the [facility] Foundation literature.Reference ranges:60 or greater: Dhwyls43-98 ( for 3 consecutive months): Chronic kidney disease 15 or less: Kidney failureParkland Memorial HospitalGlucose Rglbp6006-28-21 19:31:00* Test Item Value Reference Range Interpretation Comments Glucose Level (test code = ANY0187) 135 74-118 H [facility] HospitalCalcium Avqdu2580-57-71 19:31:00* Test Item Value Reference Range Interpretation Comments Calcium Level (test code = 70799-1) 9.7 8.4-10.2 [facility] HospitalTotal Iqnvwilpw4097-94-44 19:31:00* Test Item Value Reference Range Interpretation Comments Total Bilirubin (test code = 1975-2) 0.2 0.2-1.2 [facility] HospitalAspartate Amino Transf (AST/SGOT) 2018-06-05 19:31:00* Test Item Value Reference Range Interpretation Comments Aspartate Amino Transf (AST/SGOT) (test code = Aspartate Amino Transf (AST/SGOT)) 16 5-34 [facility] HospitalAlanine Aminotransferase (ALT/SGPT) 2018-06-05 19:31:00* Test Item Value Reference Range Interpretation Comments Alanine Aminotransferase (ALT/SGPT) (test code = 1742-6) 12 0-55 [facility] HospitalTotal Rdaaghp9178-79-65 19:31:00* Test Item Value Reference Range Interpretation Comments Total Protein (test code = 2885-2) 7.6 6.5-8.1 [facility] HospitalAlbumin2018-08-06 19:31:00* Test Item Value Reference Range Interpretation Comments Albumin (test code = 1751-7) 3.7 3.5-5.0 [facility] HospitalGlobulin2018-08-06 19:31:00* Test Item Value Reference Range Interpretation Comments Globulin (test code = 76868-5) 3.9 2.3-3.5 H [facility] HospitalAlbumin/Globulin Iumje0216-13-63 19:31:00 * Test Item Value Reference Range Interpretation Comments Albumin/Globulin Ratio (test code = 1759-0) 0.9 0.8-2.0 [facility] HospitalAlkaline Uftlzwxacrl2071-93-17 19:31:00* Test Item Value Reference Range Interpretation Comments Alkaline Phosphatase (test code = 6768-6) 190 40-150 H [facility] HospitalCreatine Szwulu3102-99-34 19:31:00* Test Item Value Reference Range Interpretation Comments Creatine Kinase (test code = 2157-6) 49 29-168 [facility] HospitalProthrombin Nvvu3011-76-68 19:19:00* Test Item Value Reference Range Interpretation Comments Prothrombin Time (test code = 5902-2) 12.6 11.9-14.5 [facility] HospitalProthromb Time International Ratio 2018-06-05 19:19:00* Test Item Value Reference Range Interpretation Comments Prothromb Time International Ratio (test code = 6301-6) 1.02 Oral Anticoagulant Therapy INR Values:1. Low Intensity Therapy 1.5 - 2.02 . Moderate Intensity Therapy 2.0 - 3.03. High Intensity Therapy(1) 2.5 - 3. 54. High Intensity Therapy(2) 3.0 - 4.05. Panic Value INR > 5.0 [facility] HospitalActivated Partial Thromboplast Time 2018-06-05 19:19:00* Test Item Value Reference Range Interpretation Comments Activated Partial Thromboplast Time (test code = 60200-2) 23.0 23.8-35.5 L [facility] HospitalProthrombin Gtsf8881-51-24 19:19:00* Test Item Value Reference Range Interpretation Comments Prothrombin Time (test code = 5902-2) 12.6 11.9-14.5 [facility] HospitalProthromb Time International Ratio 2018-06-05 19:19:00* Test Item Value Reference Range Interpretation Comments Prothromb Time International Ratio (test code = 6301-6) 1.02 Oral Anticoagulant Therapy INR Values:1. Low Intensity Therapy 1.5 - 2.02 . Moderate Intensity Therapy 2.0 - 3.03. High Intensity Therapy(1) 2.5 - 3. 54. High Intensity Therapy(2) 3.0 - 4.05. Panic Value INR > 5.0 [facility] HospitalActivated Partial Thromboplast Time 2018-06-05 19:19:00* Test Item Value Reference Range Interpretation Comments Activated Partial Thromboplast Time (test code = 67907-7) 23.0 23.8-35.5 L [facility] HospitalProthrombin Vshe4196-46-40 19:19:00* Test Item Value Reference Range Interpretation Comments Prothrombin Time (test code = 5902-2) 12.6 11.9-14.5 [facility] HospitalProthromb Time International Ratio 2018-06-05 19:19:00* Test Item Value Reference Range Interpretation Comments Prothromb Time International Ratio (test code = 6301-6) 1.02 Oral Anticoagulant Therapy INR Values:1. Low Intensity Therapy 1.5 - 2.02 . Moderate Intensity Therapy 2.0 - 3.03. High Intensity Therapy(1) 2.5 - 3. 54. High Intensity Therapy(2) 3.0 - 4.05. Panic Value INR > 5.0 [facility] HospitalActivated Partial Thromboplast Time 2018-06-05 19:19:00* Test Item Value Reference Range Interpretation Comments Activated Partial Thromboplast Time (test code = 15619-3) 23.0 23.8-35.5 L [facility] HospitalWhite Blood Mreqy5391-15-71 19:10:00* Test Item Value Reference Range Interpretation Comments White Blood Count (test code = 6690-2) 15.38 4.8-10.8 H [facility] HospitalRed Blood Ylfts8656-07-60 19:10:00* Test Item Value Reference Range Interpretation Comments Red Blood Count (test code = 789-8) 4.60 3.6-5.1 [facility] HospitalHemoglobin2018-08-06 19:10:00* Test Item Value Reference Range Interpretation Comments Hemoglobin (test code = 75455-0) 11.5 12.0-16.0 L [facility] HospitalHematocrit2018-08-06 19:10:00* Test Item Value Reference Range Interpretation Comments Hematocrit (test code = 4544-3) 37.9 34.2-44.1 [facility] HospitalMean Corpuscular Rnsdue4287-44-75 19:10:00* Test Item Value Reference Range Interpretation Comments Mean Corpuscular Volume (test code = 787-2) 82.4 81-99 [facility] HospitalMean Corpuscular Ekvmeapxhx0122-18-54 19:10:00* Test Item Value Reference Range Interpretation Comments Mean Corpuscular Hemoglobin (test code = 785-6) 25.0 28-32 L [facility] HospitalMean Corpuscular Hemoglobin Concent 2018-06-05 19:10:00* Test Item Value Reference Range Interpretation Comments Mean Corpuscular Hemoglobin Concent (test code = 786-4) 30.3 31-35 L [facility] HospitalRed Cell Distribution Wkent1390-40-99 19:10:00* Test Item Value Reference Range Interpretation Comments Red Cell Distribution Width (test code = 81486-4) 19.2 11.7 -14.4 H [facility] HospitalPlatelet Xrhiv8138-64-87 19:10:00* Test Item Value Reference Range Interpretation Comments Platelet Count (test code = 777-3) 490 140-360 H [facility] HospitalNeutrophils (%) (Auto)2018-06-05 19:10:00 * Test Item Value Reference Range Interpretation Comments Neutrophils (%) (Auto) (test code = 30168-5) 63.6 38.7-80.0 [facility] HospitalLymphocytes (%) (Auto)2018-06-05 19:10:00 * Test Item Value Reference Range Interpretation Comments Lymphocytes (%) (Auto) (test code = 736-9) 28.6 18.0-39.1 [facility] HospitalMonocytes (%) (Auto)2018-06-05 19:10:00* Test Item Value Reference Range Interpretation Comments Monocytes (%) (Auto) (test code = 5905-5) 4.7 4.4-11.3 [facility] HospitalEosinophils (%) (Auto)2018-06-05 19:10:00 * Test Item Value Reference Range Interpretation Comments Eosinophils (%) (Auto) (test code = 713-8) 1.4 0.0-6.0 [facility] HospitalBasophils (%) (Auto)2018-06-05 19:10:00* Test Item Value Reference Range Interpretation Comments Basophils (%) (Auto) (test code = 706-2) 0.5 0.0-1.0 [facility] HospitalIM GRANULOCYTES %2018-06-05 19:10:00* Test Item Value Reference Range Interpretation Comments IM GRANULOCYTES % (test code = IM GRANULOCYTES %) 1.2 0.0- 1.0 H [facility] HospitalNeutrophils # (Auto)2018-06-05 19:10:00* Test Item Value Reference Range Interpretation Comments Neutrophils # (Auto) (test code = 751-8) 9.8 2.1-6.9 H [facility] HospitalLymphocytes # (Auto)2018-06-05 19:10:00* Test Item Value Reference Range Interpretation Comments Lymphocytes # (Auto) (test code = 53473-0) 4.4 1.0-3.2 H [facility] HospitalMonocytes # (Auto)2018-06-05 19:10:00* Test Item Value Reference Range Interpretation Comments Monocytes # (Auto) (test code = 742-7) 0.7 0.2-0.8 [facility] HospitalEosinophils # (Auto)2018-06-05 19:10:00* Test Item Value Reference Range Interpretation Comments Eosinophils # (Auto) (test code = 711-2) 0.2 0.0-0.4 [facility] HospitalBasophils # (Auto)2018-06-05 19:10:00* Test Item Value Reference Range Interpretation Comments Basophils # (Auto) (test code = 704-7) 0.1 0.0-0.1 [facility] HospitalAbsolute Immature Granulocyte (auto 2018-06-05 19:10:00* Test Item Value Reference Range Interpretation Comments Absolute Immature Granulocyte (auto (romelia t code = Absolute Immature Granulocyte (auto) 0.19 0-0.1 H [facility] HospitalCHEST SINGLE (PORTABLE)2018-06-05 17:59:00 [place] [address] Patient Name: STEPHANIE CAMERON MR #: [id number] : 1960 Age/Sex: 58/F Req #: [id number] Adm Physician: Ordered by: STEVEN STAPLETON DIRECTOR OF CLINICAL SERVICES Report #: [id number] Location: ER Room/Bed: Procedure: [id number] DX/CHEST SINGLE (PORTABLE) Exam Date: 06/05/18 Exam [...] OSCAR on 06/05/181758 COPY TO: STEVEN STAPLETON DIRECTOR OF CLINICAL SERVICES Urine GKD8303-22-97 17:49:00* Test Item Value Reference Range Interpretation Comments Urine WBC (test code = 5821-4) 0-5 0-5 [facility] HospitalUrine NWW7240-71-27 17:49:00* Test Item Value Reference Range Interpretation Comments Urine RBC (test code = 76568-2) 0-5 0-5 [facility] HospitalUrine Buiqbzrd7533-74-46 17:49:00* Test Item Value Reference Range Interpretation Comments Urine Bacteria (test code = 53090-6) NONE NONE [facility] HospitalUrine Epithelial Juwyt7085-29-97 17:49:00 * Test Item Value Reference Range Interpretation Comments Urine Epithelial Cells (test code = 89936-6) FEW NONE [facility] Hyaline Axloc9655-80-09 17:49:00* Test Item Value Reference Range Interpretation Comments Urine Hyaline Casts (test code = 63886-9) 2-5 0-1 H [facility] Fsotb4024-38-38 17:49:00* Test Item Value Reference Range Interpretation Comments Urine Mucus (test code = 8247-9) FEW RARE H [facility] Hyaline Rgbay0828-95-36 17:49:00* Test Item Value Reference Range Interpretation Comments Urine Hyaline Casts (test code = 38899-2) 2-5 0-1 H [facility] Hjvsk5939-04-64 17:49:00* Test Item Value Reference Range Interpretation Comments Urine Mucus (test code = 8247-9) FEW [facility] Hyaline Ylpmj9379-33-53 17:49:00* Test Item Value Reference Range Interpretation Comments Urine Hyaline Casts (test code = 06369-8) 2-5 0-1 H [facility] Ipkaq9115-11-20 17:49:00* Test Item Value Reference Range Interpretation Comments Urine Mucus (test code = 8247-9) FEW [facility] H [facility] Hyaline Oykzl5894-30-26 17:49:00* Test Item Value Reference Range Interpretation Comments Urine Hyaline Casts (test code = 37978-8) 2-5 0-1 H [facility] Jsguo0273-38-52 17:49:00* Test Item Value Reference Range Interpretation Comments Urine Mucus (test code = 8247-9) FEW RARE H [facility] Hyaline Nrlqu4322-18-54 17:49:00* Test Item Value Reference Range Interpretation Comments Urine Hyaline Casts (test code = 52526-2) 2-5 0-1 H [facility] Okymn6759-81-50 17:49:00* Test Item Value Reference Range Interpretation Comments Urine Mucus (test code = 8247-9) FEW RARE H [facility] Hyaline Tkojx1944-86-56 17:49:00* Test Item Value Reference Range Interpretation Comments Urine Hyaline Casts (test code = 56415-8) 2-5 0-1 H [facility] Mlula5100-09-35 17:49:00* Test Item Value Reference Range Interpretation Comments Urine Mucus (test code = 8247-9) FEW RARE H [facility] Acgnv5305-79-29 17:49:00* Test Item Value Reference Range Interpretation Comments Urine Hyaline Casts (test code = 05302-3) 2-5 0-[address] [facility] Tebmk0167-85-31 17:49:00* Test Item Value Reference Range Interpretation Comments Urine Mucus (test code = 8247-9) FEW RARE H [facility] Occult Gkndp2050-70-68 17:46:00* Test Item Value Reference Range Interpretation Comments Stool Occult Blood (test code = 2335-8) NEGATIVE NEGATIVE [facility] [place] [place] Occult Bybyy3624-10-36 17:46:00* Test Item Value Reference Range Interpretation Comments Stool Occult Blood (test code = 2335-8) NEGATIVE NEGATIVE [facility] [place] [place] Occult Tkvjb3710-67-01 17:46:00* Test Item Value Reference Range Interpretation Comments Stool Occult Blood (test code = 2335-8) NEGATIVE NEGATIVE [facility] Occult Ccrtu4281-28-82 17:46:00* Test Item Value Reference Range Interpretation Comments Stool Occult Blood (test code = 2335-8) NEGATIVE NEGATIVE [facility] Occult Zepzn1702-18-83 17:46:00* Test Item Value Reference Range Interpretation Comments Stool Occult Blood (test code = 2335-8) NEGATIVE NEGATIVE [facility] Pwllb3018-92-48 17:46:00* Test Item Value Reference Range Interpretation Comments Stool Occult Blood (test code = 2335-8) NEGATIVE NEGATIVE [facility] Occult Ygyso6434-30-81 17:46:00* Test Item Value Reference Range Interpretation Comments Stool Occult Blood (test code = 2335-8) NEGATIVE NEGATIVE [facility] HospitalUrine Xdfkj2293-00-38 17:44:00* Test Item Value Reference Range Interpretation Comments Urine Color (test code = 5778-6) YELLOW YELLOW [facility] HospitalUrine Vuuaysr0254-15-78 17:44:00* Test Item Value Reference Range Interpretation Comments Urine Clarity (test code = 00704-0) CLEAR CLEAR [facility] Specific Mgoacpi9211-84-05 17:44:00 * Test Item Value Reference Range Interpretation Comments Urine Specific [place] (test code = 5811-5) 1.015 1.010-1.02 5 [facility] HospitalUrine uK1166-76-40 17:44:00* Test Item Value Reference Range Interpretation Comments Urine pH (test code = 68937-7) 6 5-7 [facility] HospitalUrine Leukocyte Wlotwpcf9808-23-62 17:44:00* Test Item Value Reference Range Interpretation Comments Urine Leukocyte Esterase (test code = 5799-2) NEGATIVE NEGATIVE [facility] HospitalUrine Gzpjsgn1574-77-09 17:44:00* Test Item Value Reference Range Interpretation Comments Urine Nitrite (test code = 07051-3) NEGATIVE NEGATIVE [facility] HospitalUrine Fvxwgxr8510-73-75 17:44:00* Test Item Value Reference Range Interpretation Comments Urine Protein (test code = 5804-0) NEGATIVE NEGATIVE [facility] HospitalUrine Glucose (UA)2018-06-05 17:44:00* Test Item Value Reference Range Interpretation Comments Urine Glucose (UA) (test code = 2349-9) NEGATIVE NEGATIVE [facility] HospitalUrine Yjtrmrn6756-95-37 17:44:00* Test Item Value Reference Range Interpretation Comments Urine Ketones (test code = 35919-4) NEGATIVE NEGATIVE [facility] HospitalUrine Srlmvxrzgpob9246-31-44 17:44:00* Test Item Value Reference Range Interpretation Comments Urine Urobilinogen (test code = 67737-4) 0.2 0.2-1 [facility] HospitalUrine Gxipirtlf5110-73-10 17:44:00* Test Item Value Reference Range Interpretation Comments Urine Bilirubin (test code = 1978-6) NEGATIVE [facility]GATIVE [facility] Jymyf7601-99-27 17:44:00* Test Item Value Reference Range Interpretation Comments Urine Blood (test code = 43619-8) NEGATIVE NEGATIVE [facility] ZP0321-73-27 17:35:00 [facility] [address] [address] Patient Name: STEPHANIE CAMERON MR #: [id number] : 1960 Age/Sex: 58/F Req #: [id number] Adm Physician: Ordered by: STEVEN STAPLETON DIRECTOR OF CLINICAL SERVICES Report #: [id number] Location: ER Room /Bed: Procedure: [id number] CT/CT BRAIN WO Exam Date: 06/05/18 Exam [...] TO: STEVEN STAPLETON NP CT CERVICAL SPINE JF4554-00-81 21:37:00 [place] [address] Patient Name: STEPHANIE CAMERON MR #: [id number] : 1960 Age/Sex: 57/F Req #: [id number] Adm Physician: Ordered by: MARYLU VALDOVINOS MD Report #: [id number] Location: ER Room/Bed: Procedure: [id number] CT/CT CERVICAL SP INE WO Exam Date: [...] COPY TO: MARYLU VALDOVINOS MD CT BRAIN VF0209-92-56 21:36:00 [place] [address] Patient Name: STEPHANIE CAMERON MR #: [id number] : 1960 Age/Sex: 57/F Req #: [id number] Adm Physician: Ordered by: MARYLU VALDOVINOS MD Report #: [id number] Location: ER Room/Bed: Procedure: [id number] CT/CT BRAIN WO E xam Date: 04/06/18 [...] and configuration. No hydrocephalus. Extra-axial space: No abnormalities . Parenchyma: No abnormal densities. No masses, hemorrhage, or acute o r chronic cortical based vascular insults. Suprasellar region: No abnormali ties. Craniocervical junction: The foramen magnum is patent. No Chiari one malformation. Impression: No new or acute intracranial abnormality. No change from prior head CT performed November 06, 2017. Signed by: Dr. Carly Ledesma M.D. on 04/06/2018 9:37 PM Dictated By: MICHAEL ZIEGLER MD 36 Transcribed By: SCOTT on 04/06/182136 COPY TO: MARYLU VALDOVINOS Bedside Dxdkbxy8008-61-97 20:40:00* Test Item Value Reference Range Interpretation Comments Bedside Glucose (test code = 46077-6) 244 70-120 H Meter ID: [id number] Memorial HospitalBedside Glucose 2018-04-06 20:40:00* Test Item Value Reference Range Interpretation Comments Bedside Glucose (test code = 90611-1) 244 70-120 H Meter ID: [id number] Memorial HospitalCreatine Kinase MB 2018-04-06 18:19:00* Test Item Value Reference Range Interpretation Comments Creatine Kinase MB (test code = 81163-8) 1.60 0-5.0 [facility] HospitalTroponin P9083-32-87 18:19:00* Test Item Value Reference Range Interpretation Comments Troponin I (test code = AMR4200) 0.003 0-0.300 [facility] HospitalCreatine Kinase DP9614-65-97 18:19:00* Test Item Value Reference Range Interpretation Comments Creatine Kinase MB (test code = 82548-3) 1.60 0-5.0 [facility] HospitalTroponin J6034-07-29 18:19:00* Test Item Value Reference Range Interpretation Comments Troponin I (test code = FVT3928) 0.003 0-0.300 [facility] Cylnm0054-64-58 18:10:00* Test Item Value Reference Range Interpretation Comments Sodium Level (test code = 2951-2) 137 136-145 [facility] HospitalPotassium Dpupe4062-39-33 18:10:00* Test Item Value Reference Range Interpretation Comments Potassium Level (test code = 2823-3) 4.6 3.5-5.1 [facility] HospitalChloride Cimwr0266-92-22 18:10:00* Test Item Value Reference Range Interpretation Comments Chloride Level (test code = 2075-0) 101 98-107 [facility] HospitalCarbon Dioxide Frrjj6007-36-33 18:10:00* Test Item Value Reference Range Interpretation Comments Carbon Dioxide Level (test code = 2028-9) 27 22-29 [facility] HospitalAnion Qpx1960-25-20 18:10:00* Test Item Value Reference Range Interpretation Comments Anion Gap (test code = 02001-3) 13.6 8-16 [facility] HospitalBlood Urea Zbozaaen7864-11-73 18:10:00* Test Item Value Reference Range Interpretation Comments Blood Urea Nitrogen (test code = 3094-0) 20 7-26 [facility] HospitalCreatinine2018-06-07 18:10:00* Test Item Value Reference Range Interpretation Comments Creatinine (test code = 2160-0) 0.84 0.57-1.11 [facility] HospitalBUN/Creatinine Bgcyt5012-69-07 18:10:00* Test Item Value Reference Range Interpretation Comments BUN/Creatinine Ratio (test code = 3097-3) 24 6-25 [facility] HospitalEstimat Glomerular Filtration Rate 2018-04-06 18:10:00* Test Item Value Reference Range Interpretation Comments Estimat Glomerular Filtration Rate (test code = 20645-1) 60- >60 Ranges were taken from the National Kidney Disease Education Program and the [facility] Kid[facility] Foundation literature.Reference ranges:60 or greater: Myzyjj38-21 ( for 3 consecutive months): Chronic kidney disease 15 or less: Kidney failureParkland Memorial HospitalGlucose Ploja3118-28-06 18:10:00* Test Item Value Reference Range Interpretation Comments Glucose Level (test code = MGN6518) 118 74-118 [facility] HospitalCalcium Vizur6544-80-21 18:10:00* Test Item Value Reference Range Interpretation Comments Calcium Level (test code = 14262-0) 10.0 8.4-10.2 [facility] HospitalTotal Nimjyzagd7298-53-91 18:10:00* Test Item Value Reference Range Interpretation Comments Total Bilirubin (test code = 1975-2) 0.2 0.2-1.2 [facility] HospitalAspartate Amino Transf (AST/SGOT) 2018-04-06 18:10:00* Test Item Value Reference Range Interpretation Comments Aspartate Amino Transf (AST/SGOT) (test code = Aspartate Amino Transf (AST/SGOT)) 13 5-34 [facility] HospitalAlanine Aminotransferase (ALT/SGPT) 2018-04-06 18:10:00* Test Item Value Reference Range Interpretation Comments Alanine Aminotransferase (ALT/SGPT) (test code = 1742-6) 10 0-55 [facility] HospitalTotal Qdoaqvi3087-12-66 18:10:00* Test Item Value Reference Range Interpretation Comments Total Protein (test code = 2885-2) 7.7 6.5-8.1 [facility] HospitalAlbumin2018-06-07 18:10:00* Test Item Value Reference Range Interpretation Comments Albumin (test code = 1751-7) 3.8 3.5-5.0 [facility] HospitalGlobulin2018-06-07 18:10:00* Test Item Value Reference Range Interpretation Comments Globulin (test code = 98828-3) 3.9 2.3-3.5 H [facility] HospitalAlbumin/Globulin Aeaod0990-43-31 18:10:00 * Test Item Value Reference Range Interpretation Comments Albumin/Globulin Ratio (test code = 1759-0) 1.0 0.8-2.0 [facility] HospitalAlkaline Eiutfqjzypv5679-32-87 18:10:00* Test Item Value Reference Range Interpretation Comments Alkaline Phosphatase (test code = 6768-6) 148 40-150 [facility] HospitalCreatine Bdhotl5342-82-98 18:10:00* Test Item Value Reference Range Interpretation Comments Creatine Kinase (test code = 2157-6) 79 29-168 [facility] Szpin1627-87-08 18:10:00* Test Item Value Reference Range Interpretation Comments Sodium Level (test code = 2951-2) 137 136-145 [facility] HospitalPotassium Flbgv0013-24-76 18:10:00* Test Item Value Reference Range Interpretation Comments Potassium Level (test code = 2823-3) 4.6 3.5-5.1 [facility] HospitalChloride Mhiok0032-31-33 18:10:00* Test Item Value Reference Range Interpretation Comments Chloride Level (test code = 2075-0) 101 98-107 [facility] HospitalCarbon Dioxide Yjrnc5055-13-52 18:10:00* Test Item Value Reference Range Interpretation Comments Carbon Dioxide Level (test code = 2028-9) 27 22-29 [facility] HospitalAnion Cpu8237-16-88 18:10:00* Test Item Value Reference Range Interpretation Comments Anion Gap (test code = 47855-9) 13.6 8-16 [facility] HospitalBlood Urea Znnhzyia9483-04-53 18:10:00* Test Item Value Reference Range Interpretation Comments Blood Urea Nitrogen (test code = 3094-0) 20 7-26 [facility] HospitalCreatinine2018-06-07 18:10:00* Test Item Value Reference Range Interpretation Comments Creatinine (test code = 2160-0) 0.84 0.57-1.11 [facility] HospitalBUN/Creatinine Mjxmk7489-23-33 18:10:00* Test Item Value Reference Range Interpretation Comments BUN/Creatinine Ratio (test code = 3097-3) 24 6-25 [facility] HospitalEstimat Glomerular Filtration Rate 2018-04-06 18:10:00* Test Item Value Reference Range Interpretation Comments Estimat Glomerular Filtration Rate (test code = 12752-9) 60- >60 Ranges were taken from the National Kidney Disease Education Program and the [facility] Kid[facility] Foundation literature.Reference ranges:60 or greater: Wbjwdj88-09 ( for 3 consecutive months): Chronic kidney disease 15 or less: Kidney failureParkland Memorial HospitalGlucose Wvczv8481-23-99 18:10:00* Test Item Value Reference Range Interpretation Comments Glucose Level (test code = NYU8316) 118 74-118 [facility] HospitalCalcium Scmbr3311-94-96 18:10:00* Test Item Value Reference Range Interpretation Comments Calcium Level (test code = 15906-8) 10.0 8.4-10.2 [facility] HospitalTotal Fbiritglu0915-16-20 18:10:00* Test Item Value Reference Range Interpretation Comments Total Bilirubin (test code = 1975-2) 0.2 0.2-1.2 [facility] HospitalAspartate Amino Transf (AST/SGOT) 2018-04-06 18:10:00* Test Item Value Reference Range Interpretation Comments Aspartate Amino Transf (AST/SGOT) (test code = Aspartate Amino Transf (AST/SGOT)) 13 5-34 [facility] HospitalAlanine Aminotransferase (ALT/SGPT) 2018-04-06 18:10:00* Test Item Value Reference Range Interpretation Comments Alanine Aminotransferase (ALT/SGPT) (test code = 1742-6) 10 0-55 [facility] HospitalTotal Puchtal1667-51-55 18:10:00* Test Item Value Reference Range Interpretation Comments Total Protein (test code = 2885-2) 7.7 6.5-8.1 [facility] HospitalAlbumin2018-06-07 18:10:00* Test Item Value Reference Range Interpretation Comments Albumin (test code = 1751-7) 3.8 3.5-5.0 [facility] HospitalGlobulin2018-06-07 18:10:00* Test Item Value Reference Range Interpretation Comments Globulin (test code = 52402-4) 3.9 2.3-3.5 H [facility] HospitalAlbumin/Globulin Bwdsh4959-37-66 18:10:00 * Test Item Value Reference Range Interpretation Comments Albumin/Globulin Ratio (test code = 1759-0) 1.0 0.8-2.0 [facility] HospitalAlkaline Bbzhwwerkaq3610-57-24 18:10:00* Test Item Value Reference Range Interpretation Comments Alkaline Phosphatase (test code = 6768-6) 148 40-150 [facility] HospitalCreatine Uiqqxe8907-17-34 18:10:00* Test Item Value Reference Range Interpretation Comments Creatine Kinase (test code = 2157-6) 79 29-168 [facility] HospitalWhite Blood Qrhlk2317-87-29 17:54:00* Test Item Value Reference Range Interpretation Comments White Blood Count (test code = 6690-2) 14.22 4.8-10.8 H [facility] HospitalRed Blood Satry0305-30-60 17:54:00* Test Item Value Reference Range Interpretation Comments Red Blood Count (test code = 789-8) 4.90 3.6-5.1 [facility] HospitalHemoglobin2018-06-07 17:54:00* Test Item Value Reference Range Interpretation Comments Hemoglobin (test code = 19228-8) 11.8 12.0-16.0 L [facility] HospitalHematocrit2018-06-07 17:54:00* Test Item Value Reference Range Interpretation Comments Hematocrit (test code = 4544-3) 39.3 34.2-44.1 [facility] HospitalMean Corpuscular Brgsaw4941-77-71 17:54:00* Test Item Value Reference Range Interpretation Comments Mean Corpuscular Volume (test code = 787-2) 80.2 81-99 L [facility] HospitalMean Corpuscular Ctbvdproet6098-78-81 17:54:00* Test Item Value Reference Range Interpretation Comments Mean Corpuscular Hemoglobin (test code = 785-6) 24.1 28-32 L [facility] HospitalMean Corpuscular Hemoglobin Concent 2018-04-06 17:54:00* Test Item Value Reference Range Interpretation Comments Mean Corpuscular Hemoglobin Concent (test code = 786-4) 30.0 31-35 L [facility] HospitalRed Cell Distribution Jgcxl8731-63-39 17:54:00* Test Item Value Reference Range Interpretation Comments Red Cell Distribution Width (test code = 84169-5) 18.8 11.7 -14.4 H [facility] HospitalPlatelet Itpzo2012-05-07 17:54:00* Test Item Value Reference Range Interpretation Comments Platelet Count (test code = 777-3) 411 140-360 H [facility] HospitalNeutrophils (%) (Auto)2018-04-06 17:54:00 * Test Item Value Reference Range Interpretation Comments Neutrophils (%) (Auto) (test code = 84563-2) 69.7 38.7-80.0 [facility] HospitalLymphocytes (%) (Auto)2018-04-06 17:54:00 * Test Item Value Reference Range Interpretation Comments Lymphocytes (%) (Auto) (test code = 736-9) 22.3 18.0-39.1 [facility] HospitalMonocytes (%) (Auto)2018-04-06 17:54:00* Test Item Value Reference Range Interpretation Comments Monocytes (%) (Auto) (test code = 5905-5) 5.3 4.4-11.3 [facility] HospitalEosinophils (%) (Auto)2018-04-06 17:54:00 * Test Item Value Reference Range Interpretation Comments Eosinophils (%) (Auto) (test code = 713-8) 1.1 0.0-6.0 [facility] HospitalBasophils (%) (Auto)2018-04-06 17:54:00* Test Item Value Reference Range Interpretation Comments Basophils (%) (Auto) (test code = 706-2) 0.5 0.0-1.0 [facility] HospitalIM GRANULOCYTES %2018-04-06 17:54:00* Test Item Value Reference Range Interpretation Comments IM GRANULOCYTES % (test code = IM GRANULOCYTES %) 1.1 0.0- 1.0 H [facility] HospitalNeutrophils # (Auto)2018-04-06 17:54:00* Test Item Value Reference Range Interpretation Comments Neutrophils # (Auto) (test code = 751-8) 9.9 2.1-6.9 H [facility] HospitalLymphocytes # (Auto)2018-04-06 17:54:00* Test Item Value Reference Range Interpretation Comments Lymphocytes # (Auto) (test code = 93275-5) 3.2 1.0-3.2 [facility] HospitalMonocytes # (Auto)2018-04-06 17:54:00* Test Item Value Reference Range Interpretation Comments Monocytes # (Auto) (test code = 742-7) 0.8 0.2-0.8 [facility] HospitalEosinophils # (Auto)2018-04-06 17:54:00* Test Item Value Reference Range Interpretation Comments Eosinophils # (Auto) (test code = 711-2) 0.2 0.0-0.4 [facility] HospitalBasophils # (Auto)2018-04-06 17:54:00* Test Item Value Reference Range Interpretation Comments Basophils # (Auto) (test code = 704-7) 0.1 0.0-0.1 [facility] HospitalAbsolute Immature Granulocyte (auto 2018-04-06 17:54:00* Test Item Value Reference Range Interpretation Comments Absolute Immature Granulocyte (auto (romelia t code = Absolute Immature Granulocyte (auto) 0.16 0-0.1 H [facility] HospitalWhite Blood Tqwox0750-41-00 17:54:00* Test Item Value Reference Range Interpretation Comments White Blood Count (test code = 6690-2) 14.22 4.8-10.8 [facility] HospitalRed Blood Tlftr7865-54-04 17:54:00* Test Item Value Reference Range Interpretation Comments Red Blood Count (test code = 789-8) 4.90 3.6-5.1 [facility] HospitalHemoglobin2018-06-07 17:54:00* Test Item Value Reference Range Interpretation Comments Hemoglobin (test code = 46593-5) 11.8 12.0-16.0 L [facility] HospitalHematocrit2018-06-07 17:54:00* Test Item Value Reference Range Interpretation Comments Hematocrit (test code = 4544-3) 39.3 34.2-44.1 [facility] HospitalMean Corpuscular Kzlekd3917-40-93 17:54:00* Test Item Value Reference Range Interpretation Comments Mean Corpuscular Volume (test code = 787-2) 80.2 81-99 L [facility] HospitalMean Corpuscular Ktiokatekf6519-17-68 17:54:00* Test Item Value Reference Range Interpretation Comments Mean Corpuscular Hemoglobin (test code = 785-6) 24.1 28-32 L [facility] HospitalMean Corpuscular Hemoglobin Concent 2018-04-06 17:54:00* Test Item Value Reference Range Interpretation Comments Mean Corpuscular Hemoglobin Concent (test code = 786-4) 30.0 31-35 L [facility] HospitalRed Cell Distribution Zzffp6407-02-98 17:54:00* Test Item Value Reference Range Interpretation Comments Red Cell Distribution Width (test code = 31715-1) 18.8 11.7 -14.4 H [facility] HospitalPlatelet Pnjal1936-86-63 17:54:00* Test Item Value Reference Range Interpretation Comments Platelet Count (test code = 777-3) 411 140-360 H [facility] HospitalNeutrophils (%) (Auto)2018-04-06 17:54:00 * Test Item Value Reference Range Interpretation Comments Neutrophils (%) (Auto) (test code = 31901-2) 69.7 38.7-80.0 [facility] HospitalLymphocytes (%) (Auto)2018-04-06 17:54:00 * Test Item Value Reference Range Interpretation Comments Lymphocytes (%) (Auto) (test code = 736-9) 22.3 18.0-39.1 [facility] HospitalMonocytes (%) (Auto)2018-04-06 17:54:00* Test Item Value Reference Range Interpretation Comments Monocytes (%) (Auto) (test code = 5905-5) 5.3 4.4-11.3 [facility] HospitalEosinophils (%) (Auto)2018-04-06 17:54:00 * Test Item Value Reference Range Interpretation Comments Eosinophils (%) (Auto) (test code = 713-8) 1.1 0.0-6.0 [facility] HospitalBasophils (%) (Auto)2018-04-06 17:54:00* Test Item Value Reference Range Interpretation Comments Basophils (%) (Auto) (test code = 706-2) 0.5 0.0-1.0 [facility] HospitalIM GRANULOCYTES %2018-04-06 17:54:00* Test Item Value Reference Range Interpretation Comments IM GRANULOCYTES % (test code = IM GRANULOCYTES %) 1.1 0.0- 1.0 H [facility] HospitalNeutrophils # (Auto)2018-04-06 17:54:00* Test Item Value Reference Range Interpretation Comments Neutrophils # (Auto) (test code = 751-8) 9.9 2.1-6.9 H [facility] HospitalLymphocytes # (Auto)2018-04-06 17:54:00* Test Item Value Reference Range Interpretation Comments Lymphocytes # (Auto) (test code = 06954-3) 3.2 1.0-3.2 [facility] HospitalMonocytes # (Auto)2018-04-06 17:54:00* Test Item Value Reference Range Interpretation Comments Monocytes # (Auto) (test code = 742-7) 0.8 0.2-0.8 [facility] HospitalEosinophils # (Auto)2018-04-06 17:54:00* Test Item Value Reference Range Interpretation Comments Eosinophils # (Auto) (test code = 711-2) 0.2 0.0-0.4 [facility] HospitalBasophils # (Auto)2018-04-06 17:54:00* Test Item Value Reference Range Interpretation Comments Basophils # (Auto) (test code = 704-7) 0.1 0.0-0.1 [facility] HospitalAbsolute Immature Granulocyte (auto 2018-04-06 17:54:00* Test Item Value Reference Range Interpretation Comments Absolute Immature Granulocyte (auto (romelia t code = Absolute Immature Granulocyte (auto) 0.16 0-0.1 H [facility] HospitalUrine LZI0981-81-89 17:23:00* Test Item Value Reference Range Interpretation Comments Urine WBC (test code = 5821-4) 6-10 0-5 H [facility] HospitalUrine NPH4320-47-25 17:23:00* Test Item Value Reference Range Interpretation Comments Urine RBC (test code = 78922-7) 0-5 0-5 [facility] HospitalUrine Ujjinajl9760-72-71 17:23:00* Test Item Value Reference Range Interpretation Comments Urine Bacteria (test code = 13932-7) RARE NONE [facility] HospitalUrine Epithelial Mumto1388-62-79 17:23:00 * Test Item Value Reference Range Interpretation Comments Urine Epithelial Cells (test code = 74537-3) FEW NONE [facility] HospitalUrine JXE8122-73-71 17:23:00* Test Item Value Reference Range Interpretation Comments Urine WBC (test code = 5821-4) 6-10 0-5 H [facility] HospitalUrine CRE6781-80-62 17:23:00* Test Item Value Reference Range Interpretation Comments Urine RBC (test code = 85488-7) 0-5 0-5 [facility] HospitalUrine Teuxftwf4998-36-68 17:23:00* Test Item Value Reference Range Interpretation Comments Urine Bacteria (test code = 68364-2) RARE NONE [facility] HospitalUrine Epithelial Dyqgg0928-34-09 17:23:00 * Test Item Value Reference Range Interpretation Comments Urine Epithelial Cells (test code = 40985-7) FEW NONE [facility] HospitalUrine Pblsa5739-26-86 17:08:00* Test Item Value Reference Range Interpretation Comments Urine Color (test code = 5778-6) YELLOW YELLOW [facility] HospitalUrine Xbndstd6224-13-01 17:08:00* Test Item Value Reference Range Interpretation Comments Urine Clarity (test code = 47321-7) SL CLOUDY CLEAR [facility] HospitalUrine Specific Ufwjjjx4686-77-28 17:08:00 * Test Item Value Reference Range Interpretation Comments Urine Specific [place] (test code = 5811-5) 1.005 1.010-1.02 5 L [facility] HospitalUrine wG3465-48-59 17:08:00* Test Item Value Reference Range Interpretation Comments Urine pH (test code = 11885-8) 6 5-7 [facility] HospitalUrine Leukocyte Tklaowfh3512-22-86 17:08:00* Test Item Value Reference Range Interpretation Comments Urine Leukocyte Esterase (test code = 5799-2) NEGATIVE NEGATIVE [facility] HospitalUrine Qbuxpia6515-82-48 17:08:00* Test Item Value Reference Range Interpretation Comments Urine Nitrite (test code = 64859-8) NEGATIVE NEGATIVE [facility] HospitalUrine Gvgvrdd9904-31-78 17:08:00* Test Item Value Reference Range Interpretation Comments Urine Protein (test code = 5804-0) NEGATIVE NEGATIVE [facility] HospitalUrine Glucose (UA)2018-04-06 17:08:00* Test Item Value Reference Range Interpretation Comments Urine Glucose (UA) (test code = 2349-9) NEGATIVE NEGATIVE [facility] HospitalUrine Pbfoubk1805-86-56 17:08:00* Test Item Value Reference Range Interpretation Comments Urine Ketones (test code = 00451-1) NEGATIVE NEGATIVE [facility] HospitalUrine Zhputtckrsyi7260-06-99 17:08:00* Test Item Value Reference Range Interpretation Comments Urine Urobilinogen (test code = 18624-5) 0.2 0.2-1 [facility] HospitalUrine Aobnnllxj6309-75-22 17:08:00* Test Item Value Reference Range Interpretation Comments Urine Bilirubin (test code = 1978-6) NEGATIVE NEGATIVE [facility] HospitalUrine Cfsgg1329-81-82 17:08:00* Test Item Value Reference Range Interpretation Comments Urine Blood (test code = 35267-8) NEGATIVE NEGATIVE [facility] HospitalUrine Kqnjq6196-93-83 17:08:00* Test Item Value Reference Range Interpretation Comments Urine Color (test code = 5778-6) YELLOW YELLOW [facility] HospitalUrine Zaavsgy8570-50-96 17:08:00* Test Item Value Reference Range Interpretation Comments Urine Clarity (test code = 58055-6) SL CLOUDY CLEAR [facility] HospitalUrine Specific Bjgtxta2720-45-66 17:08:00 * Test Item Value Reference Range Interpretation Comments Urine Specific [place] (test code = 5811-5) 1.005 1.010-1.02 5 L [facility] HospitalUrine yG1656-82-03 17:08:00* Test Item Value Reference Range Interpretation Comments Urine pH (test code = 52252-7) 6 5-7 [facility] HospitalUrine Leukocyte Jopvsjui5349-19-35 17:08:00* Test Item Value Reference Range Interpretation Comments Urine Leukocyte Esterase (test code = 5799-2) NEGATIVE NEGATIVE [facility] HospitalUrine Fyfagyk0678-03-67 17:08:00* Test Item Value Reference Range Interpretation Comments Urine Nitrite (test code = 28466-6) NEGATIVE NEGATIVE [facility] HospitalUrine Tbxhfff8538-01-69 17:08:00* Test Item Value Reference Range Interpretation Comments Urine Protein (test code = 5804-0) NEGATIVE NEGATIVE [facility] HospitalUrine Glucose (UA)2018-04-06 17:08:00* Test Item Value Reference Range Interpretation Comments Urine Glucose (UA) (test code = 2349-9) NEGATIVE NEGATIVE [facility] HospitalUrine Bzbbfaq4061-40-65 17:08:00* Test Item Value Reference Range Interpretation Comments Urine Ketones (test code = 60410-3) NEGATIVE NEGATIVE [facility] HospitalUrine Ayqyiczienoi5859-53-91 17:08:00* Test Item Value Reference Range Interpretation Comments Urine Urobilinogen (test code = 82146-2) 0.2 0.2-1 [facility] HospitalUrine Waipdcfbw3692-66-91 17:08:00* Test Item Value Reference Range Interpretation Comments Urine Bilirubin (test code = 1978-6) NEGATIVE NEGATIVE [facility] HospitalUrine Yfvtw6907-16-50 17:08:00* Test Item Value Reference Range Interpretation Comments Urine Blood (test code = 99043-8) NEGATIVE NEGATIVE [facility] HospitalCHEST SINGLE (PORTABLE)2018-04-06 17:00:00 [facility] [address] [address] Patient Name: STEPHANIE CAMERON MR #: [id number] : 1960 Age/Sex: 57/F Req #: [id number] Adm Physician: Ordered by: MANUELITO FISH MD Report #: [id number] Location: ER Room/Bed: Procedure: [id number] DX/CHEST SINGLE (ANTOLIN BLE) Exam Date: Exam Time: REPORT STATUS: Si gned PROCEDURE: A single AP view of the chest. COMPARISON: Patients [facility], DX, CHEST SINGLE (PORTABLE), 02/04/2018, 5:46. INDICATION [...] 17:00 Dictated By: HENRRY GRACE MD 1700 COPY TO: Nidhi FISH MD Bedside Xbxoxcg6445-22-75 16:04:00* Test Item Value Reference Range Interpretation Comments Bedside Glucose (test code = 72536-1) 157 70-120 H Meter ID: [id number] [facility] 2018-02-11 23:26:00* Test Item Value Reference Range Interpretation Comments Bedside Glucose (test code = 96358-1) 192 70-120 H Meter ID: [id number] [facility] Worthodium Level 2018-02-11 22:16:00* Test Item Value Reference Range Interpretation Comments Sodium Level (test code = 2951-2) 134 136-145 L [facility] HospitalPotassium Pwmim3765-95-10 22:16:00* Test Item Value Reference Range Interpretation Comments Potassium Level (test code = 2823-3) 4.3 3.5-5.1 [facility] HospitalChloride Amkqo1969-08-32 22:16:00* Test Item Value Reference Range Interpretation Comments Chloride Level (test code = 2075-0) 100 98-107 [facility] HospitalCarbon Dioxide Swzoy0456-38-54 22:16:00* Test Item Value Reference Range Interpretation Comments Carbon Dioxide Level (test code = 2028-9) 28 22-29 [facility] HospitalAnion Pwm9478-58-68 22:16:00* Test Item Value Reference Range Interpretation Comments Anion Gap (test code = 51785-9) 10.3 8-16 [facility] HospitalBlood Urea Ewytmwxz5467-47-47 22:16:00* Test Item Value Reference Range Interpretation Comments Blood Urea Nitrogen (test code = 3094-0) 12 7-26 [facility] HospitalCreatinine2018-04-14 22:16:00* Test Item Value Reference Range Interpretation Comments Creatinine (test code = 2160-0) 1.10 0.57-1.11 [facility] HospitalBUN/Creatinine Gqslm8529-57-44 22:16:00* Test Item Value Reference Range Interpretation Comments BUN/Creatinine Ratio (test code = 3097-3) 11 6-25 [facility] HospitalEstimat Glomerular Filtration Rate 2018-02-11 22:16:00* Test Item Value Reference Range Interpretation Comments Estimat Glomerular Filtration Rate (test code = 02688-5) 52 >60 L Ranges were taken from the National Kidney Disease Education Program and the [facility] Kid[facility] Foundation literature.Reference ranges:60 or greater: Velsrb81-00 ( for 3 consecutive months): Chronic kidney disease 15 or less: Kidney failureParkland Memorial HospitalGlucose Cvptc6839-10-37 22:16:00* Test Item Value Reference Range Interpretation Comments Glucose Level (test code = DYA5983) 185 74-118 H [facility] HospitalCalcium Qxcpb2138-40-69 22:16:00* Test Item Value Reference Range Interpretation Comments Calcium Level (test code = 78109-3) 9.0 8.4-10.2 [facility] HospitalTotal Slospyloe6249-83-17 22:16:00* Test Item Value Reference Range Interpretation Comments Total Bilirubin (test code = 1975-2) 0.1 0.2-1.2 L [facility] HospitalAspartate Amino Transf (AST/SGOT) 2018-02-11 22:16:00* Test Item Value Reference Range Interpretation Comments Aspartate Amino Transf (AST/SGOT) (test code = Aspartate Amino Transf (AST/SGOT)) 8 5-34 [facility] HospitalAlanine Aminotransferase (ALT/SGPT) 2018-02-11 22:16:00* Test Item Value Reference Range Interpretation Comments Alanine Aminotransferase (ALT/SGPT) (test code = 1742-6) 10 0-55 [facility] HospitalTotal Ilnltwj5520-25-16 22:16:00* Test Item Value Reference Range Interpretation Comments Total Protein (test code = 2885-2) 6.5 6.5-8.1 [facility] HospitalAlbumin2018-04-14 22:16:00* Test Item Value Reference Range Interpretation Comments Albumin (test code = 1751-7) 3.1 3.5-5.0 L [facility] HospitalGlobulin2018-04-14 22:16:00* Test Item Value Reference Range Interpretation Comments Globulin (test code = 03898-2) 3.4 2.3-3.5 [facility] HospitalAlbumin/Globulin Qhqka3231-80-41 22:16:00 * Test Item Value Reference Range Interpretation Comments Albumin/Globulin Ratio (test code = 1759-0) 0.9 0.8-2.0 [facility] HospitalAlkaline Vywpzdfpjgq9436-97-71 22:16:00* Test Item Value Reference Range Interpretation Comments Alkaline Phosphatase (test code = 6768-6) 165 40-150 H [facility] HospitalWhite Blood Crhdk4727-49-92 21:55:00* Test Item Value Reference Range Interpretation Comments White Blood Count (test code = 6690-2) 15.35 4.8-10.8 H [facility] HospitalRed Blood Uvwxp5249-79-13 21:55:00* Test Item Value Reference Range Interpretation Comments Red Blood Count (test code = 789-8) 3.95 3.6-5.1 [facility] HospitalHemoglobin2018-04-14 21:55:00* Test Item Value Reference Range Interpretation Comments Hemoglobin (test code = 97349-0) 9.8 12.0-16.0 L [facility] HospitalHematocrit2018-04-14 21:55:00* Test Item Value Reference Range Interpretation Comments Hematocrit (test code = 4544-3) 32.8 34.2-44.1 L [facility] HospitalMean Corpuscular Gaknzl0746-54-49 21:55:00* Test Item Value Reference Range Interpretation Comments Mean Corpuscular Volume (test code = 787-2) 83.0 81-99 [facility] HospitalMean Corpuscular Bmlfgvpbsh3796-06-86 21:55:00* Test Item Value Reference Range Interpretation Comments Mean Corpuscular Hemoglobin (test code = 785-6) 24.8 28-32 L [facility] HospitalMean Corpuscular Hemoglobin Concent 2018-02-11 21:55:00* Test Item Value Reference Range Interpretation Comments Mean Corpuscular Hemoglobin Concent (test code = 786-4) 29.9 31-35 L [facility] HospitalRed Cell Distribution Ihfxw6250-85-22 21:55:00* Test Item Value Reference Range Interpretation Comments Red Cell Distribution Width (test code = 79649-4) 17.1 11.7 -14.4 H [facility] HospitalPlatelet Jlgfr7624-83-14 21:55:00* Test Item Value Reference Range Interpretation Comments Platelet Count (test code = 777-3) 509 140-360 H [facility] HospitalNeutrophils (%) (Auto)2018-02-11 21:55:00 * Test Item Value Reference Range Interpretation Comments Neutrophils (%) (Auto) (test code = 13947-5) 63.2 38.7-80.0 [facility] HospitalLymphocytes (%) (Auto)2018-02-11 21:55:00 * Test Item Value Reference Range Interpretation Comments Lymphocytes (%) (Auto) (test code = 736-9) 27.6 18.0-39.1 [facility] HospitalMonocytes (%) (Auto)2018-02-11 21:55:00* Test Item Value Reference Range Interpretation Comments Monocytes (%) (Auto) (test code = 5905-5) 6.0 4.4-11.3 [facility] HospitalEosinophils (%) (Auto)2018-02-11 21:55:00 * Test Item Value Reference Range Interpretation Comments Eosinophils (%) (Auto) (test code = 713-8) 2.1 0.0-6.0 [facility] HospitalBasophils (%) (Auto)2018-02-11 21:55:00* Test Item Value Reference Range Interpretation Comments Basophils (%) (Auto) (test code = 706-2) 0.5 0.0-1.0 [facility] HospitalIM GRANULOCYTES %2018-02-11 21:55:00* Test Item Value Reference Range Interpretation Comments IM GRANULOCYTES % (test code = IM GRANULOCYTES %) 0.6 0.0- 1.0 [facility] HospitalNeutrophils # (Auto)2018-02-11 21:55:00* Test Item Value Reference Range Interpretation Comments Neutrophils # (Auto) (test code = 751-8) 9.7 2.1-6.9 H [facility] HospitalLymphocytes # (Auto)2018-02-11 21:55:00* Test Item Value Reference Range Interpretation Comments Lymphocytes # (Auto) (test code = 41236-9) 4.2 1.0-3.2 H [facility] HospitalMonocytes # (Auto)2018-02-11 21:55:00* Test Item Value Reference Range Interpretation Comments Monocytes # (Auto) (test code = 742-7) 0.9 0.2-0.8 H [facility] HospitalEosinophils # (Auto)2018-02-11 21:55:00* Test Item Value Reference Range Interpretation Comments Eosinophils # (Auto) (test code = 711-2) 0.3 0.0-0.4 [facility] HospitalBasophils # (Auto)2018-02-11 21:55:00* Test Item Value Reference Range Interpretation Comments Basophils # (Auto) (test code = 704-7) 0.1 0.0-0.1 [facility] HospitalAbsolute Immature Granulocyte (auto 2018-02-11 21:55:00* Test Item Value Reference Range Interpretation Comments Absolute Immature Granulocyte (auto (romelia t code = Absolute Immature Granulocyte (auto) 0.09 0-0.1 [facility] HospitalBedside Xzmosls8242-65-89 12:05:00* Test Item Value Reference Range Interpretation Comments Bedside Glucose (test code = 36680-5) 168 70-120 H Meter ID: [id number] County Hospitalodium Level 2018-02-04 07:54:00* Test Item Value Reference Range Interpretation Comments Sodium Level (test code = 2951-2) 137 136-145 [facility] HospitalPotassium Iuhzg5395-19-59 07:54:00* Test Item Value Reference Range Interpretation Comments Potassium Level (test code = 2823-3) 4.4 3.5-5.1 [facility] HospitalChloride Zjtmm5087-48-42 07:54:00* Test Item Value Reference Range Interpretation Comments Chloride Level (test code = 2075-0) 102 98-107 [facility] HospitalCarbon Dioxide Txkch3320-60-39 07:54:00* Test Item Value Reference Range Interpretation Comments Carbon Dioxide Level (test code = 2028-9) 30 22-29 H [facility] HospitalAnion Zit9412-62-92 07:54:00* Test Item Value Reference Range Interpretation Comments Anion Gap (test code = 73646-6) 9.4 8-16 [facility] HospitalBlood Urea Ssfagfwv4591-35-02 07:54:00* Test Item Value Reference Range Interpretation Comments Blood Urea Nitrogen (test code = 3094-0) 14 7-26 [facility] HospitalCreatinine2018-04-07 07:54:00* Test Item Value Reference Range Interpretation Comments Creatinine (test code = 2160-0) 0.74 0.57-1.11 [facility] HospitalBUN/Creatinine Brwih9789-42-82 07:54:00* Test Item Value Reference Range Interpretation Comments BUN/Creatinine Ratio (test code = 3097-3) 19 6-25 [facility] HospitalEstimat Glomerular Filtration Rate 2018-02-04 07:54:00* Test Item Value Reference Range Interpretation Comments Estimat Glomerular Filtration Rate (test code = 46288-5) 60- >60 Ranges were taken from the National Kidney Disease Education Program and the [facility] Foundation literature.Reference ranges:60 or greater: Cfhwpg78-40 ( for 3 consecutive months): Chronic kidney disease 15 or less: Kidney failureParkland Memorial HospitalGlucose Quntr3301-58-27 07:54:00* Test Item Value Reference Range Interpretation Comments Glucose Level (test code = DEY2336) 245 74-118 H [facility] HospitalCalcium Fcxnb6594-74-09 07:54:00* Test Item Value Reference Range Interpretation Comments Calcium Level (test code = 21461-6) 9.3 8.4-10.2 [facility] HospitalTotal Cqrevrrrh9506-87-01 07:54:00* Test Item Value Reference Range Interpretation Comments Total Bilirubin (test code = 1975-2) 0.3 0.2-1.2 [facility] HospitalAspartate Amino Transf (AST/SGOT) 2018-02-04 07:54:00* Test Item Value Reference Range Interpretation Comments Aspartate Amino Transf (AST/SGOT) (test code = Aspartate Amino Transf (AST/SGOT)) 9 5-34 [facility] HospitalAlanine Aminotransferase (ALT/SGPT) 2018-02-04 07:54:00* Test Item Value Reference Range Interpretation Comments Alanine Aminotransferase (ALT/SGPT) (test code = 1742-6) 11 0-55 [facility] HospitalTotal Xonpeud6205-70-91 07:54:00* Test Item Value Reference Range Interpretation Comments Total Protein (test code = 2885-2) 6.6 6.5-8.1 [facility] HospitalAlbumin2018-04-07 07:54:00* Test Item Value Reference Range Interpretation Comments Albumin (test code = 1751-7) 3.1 3.5-5.0 L [facility] HospitalGlobulin2018-04-07 07:54:00* Test Item Value Reference Range Interpretation Comments Globulin (test code = 43924-3) 3.5 2.3-3.5 [facility] HospitalAlbumin/Globulin Zjxpp6520-02-58 07:54:00 * Test Item Value Reference Range Interpretation Comments Albumin/Globulin Ratio (test code = 1759-0) 0.9 0.8-2.0 [facility] HospitalAlkaline Etigouhlcvz5183-01-51 07:54:00* Test Item Value Reference Range Interpretation Comments Alkaline Phosphatase (test code = 6768-6) 143 40-150 [facility] HospitalWhite Blood Gepnh7057-64-96 07:34:00* Test Item Value Reference Range Interpretation Comments White Blood Count (test code = 6690-2) 12.06 4.8-10.8 H [facility] HospitalRed Blood Nitlg5354-46-17 07:34:00* Test Item Value Reference Range Interpretation Comments Red Blood Count (test code = 789-8) 3.95 3.6-5.1 [facility]oglobin[facility] 07:34:00* Test Item Value Reference Range Interpretation Comments Hemoglobin (test code = 41635-5) 9.8 12.0-16.0 L [facility] HospitalHematocrit2018-04-07 07:34:00* Test Item Value Reference Range Interpretation Comments Hematocrit (test code = 4544-3) 32.4 34.2-44.1 L [facility] HospitalMean Corpuscular Jvwnxp3913-47-33 07:34:00* Test Item Value Reference Range Interpretation Comments Mean Corpuscular Volume (test code = 787-2) 82.0 81-99 [facility] HospitalMean Corpuscular Nooutjxbtx8594-13-63 07:34:00* Test Item Value Reference Range Interpretation Comments Mean Corpuscular Hemoglobin (test code = 785-6) 24.8 28-32 L [facility] HospitalMean Corpuscular Hemoglobin Concent 2018-02-04 07:34:00* Test Item Value Reference Range Interpretation Comments Mean Corpuscular Hemoglobin Concent (test code = 786-4) 30.2 31-35 L [facility] HospitalRed Cell Distribution Idfvo3090-20-08 07:34:00* Test Item Value Reference Range Interpretation Comments Red Cell Distribution Width (test code = 34510-2) 16.7 11.7 -14.4 H [facility] HospitalPlatelet Pvrjs5980-38-21 07:34:00* Test Item Value Reference Range Interpretation Comments Platelet Count (test code = 777-3) 422 140-360 H [facility] HospitalNeutrophils (%) (Auto)2018-02-04 07:34:00 * Test Item Value Reference Range Interpretation Comments Neutrophils (%) (Auto) (test code = 63212-3) 70.1 38.7-80.0 [facility] HospitalLymphocytes (%) (Auto)2018-02-04 07:34:00 * Test Item Value Reference Range Interpretation Comments Lymphocytes (%) (Auto) (test code = 736-9) 22.1 18.0-39.1 [facility] HospitalMonocytes (%) (Auto)2018-02-04 07:34:00* Test Item Value Reference Range Interpretation Comments Monocytes (%) (Auto) (test code = 5905-5) 4.8 4.4-11.3 [facility] HospitalEosinophils (%) (Auto)2018-02-04 07:34:00 * Test Item Value Reference Range Interpretation Comments Eosinophils (%) (Auto) (test code = 713-8) 1.8 0.0-6.0 [facility] HospitalBasophils (%) (Auto)2018-02-04 07:34:00* Test Item Value Reference Range Interpretation Comments Basophils (%) (Auto) (test code = 706-2) 0.6 0.0-1.0 [facility] HospitalIM GRANULOCYTES %2018-02-04 07:34:00* Test Item Value Reference Range Interpretation Comments IM GRANULOCYTES % (test code = IM GRANULOCYTES %) 0.6 0.0- 1.0 [facility] HospitalNeutrophils # (Auto)2018-02-04 07:34:00* Test Item Value Reference Range Interpretation Comments Neutrophils # (Auto) (test code = 751-8) 8.5 2.1-6.9 H [facility] HospitalLymphocytes # (Auto)2018-02-04 07:34:00* Test Item Value Reference Range Interpretation Comments Lymphocytes # (Auto) (test code = 70541-8) 2.7 1.0-3.2 [facility] HospitalMonocytes # (Auto)2018-02-04 07:34:00* Test Item Value Reference Range Interpretation Comments Monocytes # (Auto) (test code = 742-7) 0.6 0.2-0.8 [facility] HospitalEosinophils # (Auto)2018-02-04 07:34:00* Test Item Value Reference Range Interpretation Comments Eosinophils # (Auto) (test code = 711-2) 0.2 0.0-0.4 [facility] HospitalBasophils # (Auto)2018-02-04 07:34:00* Test Item Value Reference Range Interpretation Comments Basophils # (Auto) (test code = 704-7) 0.1 0.0-0.1 [facility] HospitalAbsolute Immature Granulocyte (auto 2018-02-04 07:34:00* Test Item Value Reference Range Interpretation Comments Absolute Immature Granulocyte (auto (romelia t code = Absolute Immature Granulocyte (auto) 0.07 0-0.1 [facility] HospitalCreatine Kinase XZ0613-28-88 11:36:00* Test Item Value Reference Range Interpretation Comments Creatine Kinase MB (test code = 90127-8) 5.20 0-5.0 H [facility] S5607-45-60 11:36:00* Test Item Value Reference Range Interpretation Comments Troponin I (test code = FDT2856) -0.001 0-0.300 [facility] HospitalCreatine Kinase EW7692-22-83 11:36:00* Test Item Value Reference Range Interpretation Comments Creatine Kinase MB (test code = 85107-4) 5.20 0-5.0 H [place] 86321018-04-06 11:36:00* Test Item Value Reference Range Interpretation Comments Troponin I (test code = CSD0872) -0.001 0-0.300 [facility]2018-04-06 11:25:00* Test Item Value Reference Range Interpretation Comments Magnesium Level (test code = 99943-3) 1.7 1.3-2.1 [facility]Cre[facility] Spjeds6251-49-89 11:25:00* Test Item Value Reference Range Interpretation Comments Creatine Kinase (test code = 2157-6) 270 29-168 H [facility]2018-04-06 11:25:00* Test Item Value Reference Range Interpretation Comments Magnesium Level (test code = 28862-8) 1.7 1.3-2.1 [facility] HospitalCreatine Rxdoxy2656-99-43 11:25:00* Test Item Value Reference Range Interpretation Comments Creatine Kinase (test code = 2157-6) 270 29-168 H [facility]2018-04-06 11:25:00* Test Item Value Reference Range Interpretation Comments Magnesium Level (test code = 27011-9) 1.7 1.3-2.1 [facility] Lamum5716-82-71 11:25:00* Test Item Value Reference Range Interpretation Comments Magnesium Level (test code = 32463-7) 1.7 1.3-2.1 [facility] HospitalMagnesium Lnvnh3851-83-13 11:25:00* Test Item Value Reference Range Interpretation Comments Magnesium Level (test code = 56511-9) 1.7 1.3-2.1 [facility] Qysyo8049-41-09 11:25:00* Test Item Value Reference Range Interpretation Comments Magnesium Level (test code = 88098-0) 1.7 1.3-2.1 [facility] HospitalProthrombin Aimp6859-62-25 11:12:00* Test Item Value Reference Range Interpretation Comments Prothrombin Time (test code = 5902-2) 13.1 11.9-14.5 [facility] HospitalProthromb Time International Ratio 2018-02-03 11:12:00* Test Item Value Reference Range Interpretation Comments Prothromb Time International Ratio (test code = 6301-6) 1.07 Oral Anticoagulant Therapy INR Values:1. Low Intensity Therapy 1.5 - 2.02 . Moderate Intensity Therapy 2.0 - 3.03. High Intensity Therapy(1) 2.5 - 3. 54. High Intensity Therapy(2) 3.0 - 4.05. Panic Value INR > 5.0 [facility] HospitalActivated Partial Thromboplast Time 2018-02-03 11:12:00* Test Item Value Reference Range Interpretation Comments Activated Partial Thromboplast Time (test code = 06723-2) 31.1 23.8-35.5 [facility] HospitalProthrombin Pepj4959-51-70 11:12:00* Test Item Value Reference Range Interpretation Comments Prothrombin Time (test code = 5902-2) 13.1 11.9-14.5 [facility] HospitalProthromb Time International Ratio 2018-02-03 11:12:00* Test Item Value Reference Range Interpretation Comments Prothromb Time International Ratio (test code = 6301-6) 1.07 Oral Anticoagulant Therapy INR Values:1. Low Intensity Therapy 1.5 - 2.02 . Moderate Intensity Therapy 2.0 - 3.03. High Intensity Therapy(1) 2.5 - 3. 54. High Intensity Therapy(2) 3.0 - 4.05. Panic Value INR > 5.0 [facility] HospitalActivated Partial Thromboplast Time 2018-02-03 11:12:00* Test Item Value Reference Range Interpretation Comments Activated Partial Thromboplast Time (test code = 46699-0) 31.1 23.8-35.5 [facility] HospitalProthrombin Uafn9063-22-98 11:12:00* Test Item Value Reference Range Interpretation Comments Prothrombin Time (test code = 5902-2) 13.1 11.9-14.5 [facility] HospitalProthromb Time International Ratio 2018-02-03 11:12:00* Test Item Value Reference Range Interpretation Comments Prothromb Time International Ratio (test code = 6301-6) 1.07 Oral Anticoagulant Therapy INR Values:1. Low Intensity Therapy 1.5 - 2.02 . Moderate Intensity Therapy 2.0 - 3.03. High Intensity Therapy(1) 2.5 - 3. 54. High Intensity Therapy(2) 3.0 - 4.05. Panic Value INR > 5.0 [facility] HospitalActivated Partial Thromboplast Time 2018-02-03 11:12:00* Test Item Value Reference Range Interpretation Comments Activated Partial Thromboplast Time (test code = 77388-4) 31.1 23.8-35.5 [facility] HospitalProthrombin Mskp7559-62-34 11:12:00* Test Item Value Reference Range Interpretation Comments Prothrombin Time (test code = 5902-2) 13.1 11.9-14.5 [facility] HospitalProthromb Time International Ratio 2018-02-03 11:12:00* Test Item Value Reference Range Interpretation Comments Prothromb Time International Ratio (test code = 6301-6) 1.07 Oral Anticoagulant Therapy INR Values:1. Low Intensity Therapy 1.5 - 2.02 . Moderate Intensity Therapy 2.0 - 3.03. High Intensity Therapy(1) 2.5 - 3. 54. High Intensity Therapy(2) 3.0 - 4.05. Panic Value INR > 5.0 [facility] HospitalActivated Partial Thromboplast Time 2018-02-03 11:12:00* Test Item Value Reference Range Interpretation Comments Activated Partial Thromboplast Time (test code = 72368-0) 31.1 23.8-35.5 [facility] HospitalCHEM FCNWR8819-30-83 09:54:001.6[facility] HermannCHEM SIAPU0984-52-85 09:54:0095[facility] HermannCHEM QUOPH8024-42-01 09:54:005.5[facility] HermannCHEM KAPVG2620-74-88 09:54:00* Test Item Value Reference Range Interpretation Comments A/G Ratio (test code = A/G Ratio) 0.8 1 0.7-1.[address] [facility] HermannCHEM PYRUR9751-67-10 09:54:008[facility] HermannCHEM PANEL 2017-11-17 09:54:002.5[facility] HermannCHEM WNPME9245-61-96 09:54:003.0[facility]annCHEM QGQTR6210-83-49 09:54:56704Goqfmnnr HermannCHEM RCEJH5672-00-77 09:54:000.3[facility] HermannCHEM NLCWO9617-85-32 09:54:007[facility]annCHEM FQXCF9163-34-32 09:54:004.4[facility] HermannCHEM WEHTB9570-50-77 09:54:61068 [facility]annCHEM GPKAU4320-65-23 09:54:000.72[facility] HermannCHEM PANEL 2017-11-17 09:54:19010Sgcwsahk HermannCHEM MDDHR7578-57-78 09:54:0014[facility] HermannCHEM UZXLS4770-56-10 09:54:008.3[facility]annCHEM VAIHJ9699-32-31 09:54:02998Mefvyaan HermannCHEM ZXYZV6542-12-13 09:54:0026[facility] HermannCHEM YUEFR5544-90-17 09:54:00* Test Item Value Reference Range Interpretation Comments B/C Ratio (test code = B/C Ratio) 19 1 6-25 [facility]annCHEM PACBX1169-23-92 09:54:0010.4[facility] HermannCHEM PANEL 2017-11-17 09:54:001.4[facility] MzuunmjCAXQFIDDZI2771-03-57 09:54:000.1[facility] JfitfbaVNVELUREOK8738-70-70 09:54:000.1[facility] AdzvzbhUEUHJCYFVV8278-21-53 09:54:000.6[facility] EqqihjpUNYLAOWKWC1656-47-61 09:54:006.4[facility] DHZDJZXQCF3101-54-18 09:54:000.8[facility] LtlkgcwYTCXYVGPCB3277-52-32 09:54:001.0 [facility] TvhfpguWPYURYPYIY0126-53-99 09:54:005.3[facility] HermannHEMATOLOGY 2017-11-17 09:54:0032.3[facility] SgyzqcsMTJYHIUHSU1740-57-07 09:54:0060.6[facility] EudpafvPKEGVPSRCE9409-29-73 09:54:003.4[facility] JvxakmcLCXRZRFXWT9966-82-95 09:54:76971Ouekytoe IkmprctLBFXSRYWLN6671-72-97 09:54:0016.0[facility] RYVSSQGOXU4514-19-32 09:54:007.3[facility] KugagqzTPXTQIEPLA8294-83-59 09:54:00 32.3[facility] BaqymzxLRVVECICUO9140-41-47 09:54:00* Test Item Value Reference Range Interpretation Comments MCH (test code = MCH) 28.1 pg 27.0-31.0 [facility] XvvxxxzJLOBGREUGI2675-17-00 09:54:0031.9[facility] HermannHEMATOLOGY 2017-11-17 09:54:0010.3[facility] YglxfqeUBDOHLSUZD1927-66-12 09:54:003.67[facility] DupyrjuFJVMIJDQAD5530-45-65 09:54:0010.6[facility] DmnhdjwFZKKSBCRCH7047-49-58 09:54:0086.9[facility]annURINE AND MGFJV4029-85-82 05:20:004[facility] URINE AND FVHOL3070-86-27 05:20:0016[facility]annURINE AND VRERK2649-88-52 05:20:00Moderate *ABN*(11/16/17 11:20 PM)[facility] AND STOOL 2017-11-17 05:20:00* Test Item Value Reference Range Interpretation Comments UA pH (test code = UA pH) 6.0 1 5.0-8.0 [facility] AND SKRRJ1415-60-05 05:20:00* Test Item Value Reference Range Interpretation Comments UA Spec Grav (test code = UA Spec Grav) 1.006 1 [facility] AND ISMZP4217-27-45 05:20:00Slight *ABN*(11/16/17 11:20 PM) [facility] OZDEM1191-04-97 05:20:00Yellow *NA*(11/16/17 11:20 PM) [facility] FERGQ9184-27-62 05:20:00Negative (11/16/17 11:20 PM) [facility] QGKBJ3955-65-38 05:20:00Negative (11/16/17 11:20 PM) [facility] VWNLC3125-46-81 05:20:00Negative *NA*(11/16/17 11:20 PM)[facility]annCHEM ZDKYT0089-63-07 01:19:002.7[facility] HermannCARDIAC ZAWXCLO4818-04-30 01:08:0083[facility]annCARDIAC OCQXRBV4609-66-81 01:08:00 1.1[facility]annCARDIAC BIXYASU0884-08-14 01:08:00<0.02[facility] CARDIAC XBSOSJO8372-59-47 01:08:00* Test Item Value Reference Range Interpretation Comments CK MB Index (test code = CK MB Index) 1.3 1 <=2.5 [facility]annCHEM MIAGJ6191-73-16 01:08:0060[facility] HermannCHEM PANEL 2017-11-17 01:08:00* Test Item Value Reference Range Interpretation Comments A/G Ratio (test code = A/G Ratio) 0.8 1 0.7-1.6 [facility]annCHEM GADXB1650-53-88 01:08:40913Qivdxlfh HermannCHEM PANEL 2017-11-17 01:08:003.8[facility] HermannCHEM TEHHR7121-53-49 01:08:48121Iufhovzd HermannCHEM PLAUB3056-66-31 01:08:0028[facility] HermannCHEM BYNVY2898-41-05 01:08:008.0[facility]annCHEM NGPEE2899-45-24 01:08:006.2[facility]annCHEM YPMSL2308-75-24 01:08:009[facility]annCHEM YTAVF4749-91-40 01:08:002.7 [facility]annCHEM MGIPD1110-48-18 01:08:009[facility] HermannCHEM PANEL 2017-11-17 01:08:00* Test Item Value Reference Range Interpretation Comments B/C Ratio (test code = B/C Ratio) 13 1 6-[address] [facility] HermannCHEM KEXZR3385-82-28 01:08:003.5[facility] HermannCHEM PANEL 2017-11-17 01:08:000.2[facility] HermannCHEM XDEWY2665-49-64 01:08:0012.8[facility] HermannCHEM RUJZR1211-76-43 01:08:54320Hmybpoib HermannCHEM APYRC6303-96-77 01:08:0014[facility] HermannCHEM DLDJX7789-37-14 01:08:001.05[facility] HermannCHEM DWJKT9248-38-12 01:08:61888Isxzcqsp DskukfyNEQOJRDDVW8842-27-50 01:08:00* Test Item Value Reference Range Interpretation Comments PT (test code = PT) 12.9 s 12.0-14.[address] [facility] [address] HospitalYudsuqvNZLJSRSFQW8137-89-56 01:08:00* Test Item Value Reference Range Interpretation Comments INR (test code = INR) 0.97 1 0.85-1.[address] [facility] HospitalYawpahjZSJEAWSECH7631-70-38 01:08:00* Test Item Value Reference Range Interpretation Comments PTT (test code = PTT) 32.6 s 22.9-35.[address] [facility] [address] [facility] HospitalKolzsprBITIUKCWBF2640-77-68 01:08:00* Test Item Value Reference Range Interpretation Comments MCH (test code = MCH) 28.7 pg 27.0-31.0 [facility]GmmxzadKHEEECABYC0673-75-79 01:08:0087.8[facility] HermannHEMATOLOGY 2017-11-17 01:08:0034.6[facility] TscldemTUVRXFFKHM2292-39-80 01:08:003.94[facility] IsnlpvzHSGZKYHHXO9670-03-39 01:08:0010.3[facility] PgrhkexBCFTGMXPJJ0440-01-85 01:08:0011.3[facility] MmnegnhNVICEMPFLW6914-75-66 01:08:007.3[facility] TEGTBDRZIM7392-04-25 01:08:0032.7[facility] SobrglaYJSEKRDVDC0571-42-34 01:08:00 369[facility] JfffyleQGVVCHCNFR8829-63-39 01:08:0015.9[facility] HermannHEMATOLOGY 2017-11-17 01:08:006.8[facility] HwuihamOTDSEJGRSM9490-10-04 01:08:002.7[facility] AmjhwnsGYZKBJCSWI5346-54-50 01:08:000.9[facility] HnjhxjsDCSKQAWOAU8981-25-13 01:08:000.7[facility] OlegqfqICOYFRFYZU6420-36-28 01:08:006.6[facility] RPSACJFTJD7860-33-57 01:08:0025.7[facility] SpzgkcpZDJGFASPFG7834-90-97 01:08:00 66.1[facility] BjllasgIVUGEISVQW9810-51-80 01:08:000.1[facility] HermannHEMATOLOGY 2017-11-17 01:08:000.1[facility] BzbyjrrAZYMOIYCIU7031-17-46 01:08:000.7[facility] HermannPhosphorus Yyzqy2750-24-63 07:33:00* Test Item Value Reference Range Interpretation Comments Phosphorus Level (test code = NXI9961) 3.3 2.3-4.7 [facility] HospitalPhosphorus Cprhn9429-54-72 07:33:00* Test Item Value Reference Range Interpretation Comments Phosphorus Level (test code = QPN8416) 3.3 2.3-4.7 [facility] HospitalPhosphorus Ucpxk8121-57-65 07:33:00* Test Item Value Reference Range Interpretation Comments Phosphorus Level (test code = NEF8578) 3.3 2.3-4.7 [facility]2017-12-04 07:33:00* Test Item Value Reference Range Interpretation Comments Phosphorus Level (test code = HQB7757) 3.3 2.3-4.7 [facility]2017-12-04 07:33:00* Test Item Value Reference Range Interpretation Comments Phosphorus Level (test code = MAN7826) 3.3 2.3-4.7 [facility] Gelnztqdi4653-67-47 16:41:00* Test Item Value Reference Range Interpretation Comments Free Thyroxine (test code = 3024-7) 0.83 0.8-1.8 [facility] HospitalThyroid Stimulating Hormone (TSH) 2017-09-30 16:41:00* Test Item Value Reference Range Interpretation Comments Thyroid Stimulating Hormone (TSH) (test code = 12930-0) 0.184 0.350-4.940 L [facility] Byzdedsre7473-58-32 16:41:00* Test Item Value Reference Range Interpretation Comments Free Thyroxine (test code = 3024-7) 0.83 0.8-1.8 [facility] HospitalThyroid Stimulating Hormone (TSH) 2017-09-30 16:41:00* Test Item Value Reference Range Interpretation Comments Thyroid Stimulating Hormone (TSH) (test code = 35038-2) 0.184 0.350-4.940 L [facility] Bmlyzsaqr5430-57-85 16:41:00* Test Item Value Reference Range Interpretation Comments Free Thyroxine (test code = 3024-7) 0.83 0.8-1.8 [facility] HospitalThyroid Stimulating Hormone (TSH) 2017-09-30 16:41:00* Test Item Value Reference Range Interpretation Comments Thyroid Stimulating Hormone (TSH) (test code = 20731-6) 0.184 0.350-4.940 L [facility] Xnkkfjfzh4405-43-15 16:41:00* Test Item Value Reference Range Interpretation Comments Free Thyroxine (test code = 3024-7) 0.83 0.8-1.8 [facility] HospitalThyroid Stimulating Hormone (TSH) 2017-09-30 16:41:00* Test Item Value Reference Range Interpretation Comments Thyroid Stimulating Hormone (TSH) (test code = 86957-1) 0.184 0.350-4.940 L [facility] HospitalFree Qbbtjujls3520-40-89 16:41:00* Test Item Value Reference Range Interpretation Comments Free Thyroxine (test code = 3024-7) 0.83 0.8-1.8 [facility] HospitalThyroid Stimulating Hormone (TSH) 2017-09-30 16:41:00* Test Item Value Reference Range Interpretation Comments Thyroid Stimulating Hormone (TSH) (test code = 21000-2) 0.184 0.350-4.940 L [facility] HospitalHemoglobin A1c Selelyu5235-98-09 14:47:00 * Test Item Value Reference Range Interpretation Comments Hemoglobin A1c Percent (test code = Hemoglobin A1c Percent) 7.9 4.0-7.0 H [facility] HospitalHemoglobin A1c Acyqbsx1050-71-07 14:47:00 * Test Item Value Reference Range Interpretation Comments Hemoglobin A1c Percent (test code = Hemoglobin A1c Percent) 7.9 4.0-7.0 H [facility] HospitalHemoglobin A1c Jnwjowu6058-10-92 14:47:00 * Test Item Value Reference Range Interpretation Comments Hemoglobin A1c Percent (test code = Hemoglobin A1c Percent) 7.9 4.0-7.0 H [facility] HospitalHemoglobin A1c Uvehpyg9344-46-57 14:47:00 * Test Item Value Reference Range Interpretation Comments Hemoglobin A1c Percent (test code = Hemoglobin A1c Percent) 7.9 4.0-7.0 H [facility] HospitalHemoglobin A1c Ryvwzbs7817-36-77 14:47:00 * Test Item Value Reference Range Interpretation Comments Hemoglobin A1c Percent (test code = Hemoglobin A1c Percent) 7.9 4.0-7.0 H [facility] HospitalUrine Yfnochhtmxa1895-77-65 13:27:00* Test Item Value Reference Range Interpretation Comments Urine Eosinophils (test code = 61211-0) NONE SEEN NONE SEEN [facility] HospitalUrine Gtquanjfplx5608-08-11 13:27:00* Test Item Value Reference Range Interpretation Comments Urine Eosinophils (test code = 23596-4) NONE SEEN NONE SEEN [facility] HospitalUrine Fdybybwpudh5631-60-82 13:27:00* Test Item Value Reference Range Interpretation Comments Urine Eosinophils (test code = 37852-1) NONE SEEN NONE SEEN [facility] HospitalUrine Vuuaswnkbut9648-03-60 13:27:00* Test Item Value Reference Range Interpretation Comments Urine Eosinophils (test code = 80802-4) NONE SEEN NONE SEEN [facility] HospitalUrine Zauodlpsyuf9234-36-92 13:27:00* Test Item Value Reference Range Interpretation Comments Urine Eosinophils (test code = 92928-5) NONE SEEN NONE SEEN [facility] Random Total Skirhhr8539-19-01 12:29:00* Test Item Value Reference Range Interpretation Comments Urine Random Total Protein (test code = 2888-6) 23.9 1-14 H [facility] HospitalU[facility] Random Iasqlo2153-71-97 12:29:00* Test Item Value Reference Range Interpretation Comments Urine Random Sodium (test code = 2955-3) 72 [facility] HospitalUrine Apbhucycwd6090-73-97 12:29:00* Test Item Value Reference Range Interpretation Comments Urine Creatinine (test code = 2161-8) 39.29 47-110 L [facility] HospitalU[facility] Random Total Xlvbqbn5935-17-00 12:29:00* Test Item Value Reference Range Interpretation Comments Urine Random Total Protein (test code = 2888-6) 23.9 1-14 H [facility] HospitalU[facility] Random Eddbjt7711-78-48 12:29:00* Test Item Value Reference Range Interpretation Comments Urine Random Sodium (test code = 2955-3) 72 [facility] HospitalU[facility] Yjnqcwycrj9722-11-28 12:29:00* Test Item Value Reference Range Interpretation Comments Urine Creatinine (test code = 2161-8) 39.29 47-110 L [facility] HospitalU[facility] Random Total Eqomlpg7300-09-22 12:29:00* Test Item Value Reference Range Interpretation Comments Urine Random Total Protein (test code = 2888-6) 23.9 1-14 H [facility] HospitalU[facility] Random Ckgluz4455-82-86 12:29:00* Test Item Value Reference Range Interpretation Comments Urine Random Sodium (test code = 2955-3) 72 [facility] HospitalU[facility] Eibpqvbfxk6833-19-48 12:29:00* Test Item Value Reference Range Interpretation Comments Urine Creatinine (test code = 2161-8) 39.29 47-110 L [facility] HospitalU[facility] Random Total Zvwqkdx9155-10-41 12:29:00* Test Item Value Reference Range Interpretation Comments Urine Random Total Protein (test code = 2888-6) 23.9 1-14 H [facility] HospitalU[facility] Random Rbzvyi9277-29-84 12:29:00* Test Item Value Reference Range Interpretation Comments Urine Random Sodium (test code = 2955-3) 72 [facility] HospitalU[facility] Zzivqmbvqc1387-71-12 12:29:00* Test Item Value Reference Range Interpretation Comments Urine Creatinine (test code = 2161-8) 39.29 47-110 L [facility] Random Total Jhvqrbn1483-99-66 12:29:00* Test Item Value Reference Range Interpretation Comments Urine Random Total Protein (test code = 2888-6) 23.9 1-14 H [facility] HospitalU[facility] Random Qjhyof2103-96-96 12:29:00* Test Item Value Reference Range Interpretation Comments Urine Random Sodium (test code = 2955-3) 72 [facility] HospitalU[facility] Jnjvxngmfi0581-64-23 12:29:00* Test Item Value Reference Range Interpretation Comments Urine Creatinine (test code = 2161-8) 39.29 47-110 L [facility] HospitalU[facility] HRT6005-28-87 23:01:00* Test Item Value Reference Range Interpretation Comments Urine WBC (test code = 5821-4) 6-10 0-5 H [facility] HospitalU[facility] BPC6868-35-30 23:01:00* Test Item Value Reference Range Interpretation Comments Urine RBC (test code = 01520-0) 6-10 0-5 H [facility] HospitalU[facility] Majycfvq6012-93-70 23:01:00* Test Item Value Reference Range Interpretation Comments Urine Bacteria (test code = 41472-9) FEW NONE [facility] HospitalU[facility] Epithelial Dfbml3839-68-02 23:01:00 * Test Item Value Reference Range Interpretation Comments Urine Epithelial Cells (test code = 03465-3) RARE NONE [facility] Amorphous Wakmpaca9379-76-76 23:01:00* Test Item Value Reference Range Interpretation Comments Urine Amorphous Sediment (test code = 8246-1) MODERATE FEW H [facility] Fbmqq9073-30-68 23:01:00* Test Item Value Reference Range Interpretation Comments Urine Yeast (test code = 09633-0) MODERATE NONE [facility] VKC5300-69-19 23:01:00* Test Item Value Reference Range Interpretation Comments Urine WBC (test code = 5821-4) 6-10 0-5 H [facility] GUX3220-46-14 23:01:00* Test Item Value Reference Range Interpretation Comments Urine RBC (test code = 00344-9) 6-10 0-5 H [facility] Anulkknn4062-78-51 23:01:00* Test Item Value Reference Range Interpretation Comments Urine Bacteria (test code = 42602-9) FEW NONE [facility] Epithelial Mmlkw5961-09-41 23:01:00 * Test Item Value Reference Range Interpretation Comments Urine Epithelial Cells (test code = 05839-0) RARE NONE [facility] [place] Amorphous Iwirgazv1785-70-92 23:01:00* Test Item Value Reference Range Interpretation Comments Urine Amorphous Sediment (test code = 8246-1) MODERATE FEW H [facility] [place] Ivzbd9040-59-19 23:01:00* Test Item Value Reference Range Interpretation Comments Urine Yeast (test code = 13794-7) MODERATE NONE [facility] Amorphous Dnueqxja4225-82-21 23:01:00* Test Item Value Reference Range Interpretation Comments Urine Amorphous Sediment (test code = 8246-1) MODERATE FEW H [facility] [place] Jmzyz1693-26-89 23:01:00* Test Item Value Reference Range Interpretation Comments Urine Yeast (test code = 59919-3) [facility] NONE [facility] Ujhwnqph9125-77-94 23:01:00* Test Item Value Reference Range Interpretation Comments Urine Amorphous Sediment (test code = 8246-1) [facility]W [facility] Umpbz9455-03-25 23:01:00* Test Item Value Reference Range Interpretation Comments Urine Yeast (test code = 64144-6) MODERATE NONE [facility] Uexsyfvz8701-55-65 23:01:00* Test Item Value Reference Range Interpretation Comments Urine Amorphous Sediment (test code = 8246-1) MODERATE FEW H [facility] Trhli3924-57-90 23:01:00* Test Item Value Reference Range Interpretation Comments Urine Yeast (test code = 11347-1) MODERATE NONE [facility] Nksmp8235-35-44 22:52:00* Test Item Value Reference Range Interpretation Comments Urine Color (test code = 5778-6) YELLOW YELLOW [facility] Ipogmod1552-15-08 22:52:00* Test Item Value Reference Range Interpretation Comments Urine Clarity (test code = 44938-3) SL CLOUDY CLEAR [facility] Specific Mjcrseg0989-86-11 22:52:00 * Test Item Value Reference Range Interpretation Comments Urine Specific [place] (test code = 5811-5) 1.020 1.010-1.02 5 [facility] kY3705-30-12 22:52:00* Test Item Value Reference Range Interpretation Comments Urine pH (test code = 44699-1) 5 5-7 [facility] Leukocyte Vmohubub7456-02-72 22:52:00* Test Item Value Reference Range Interpretation Comments Urine Leukocyte Esterase (test code = 5799-2) [facility]ACE NEGATIVE [facility] Hjiobif9543-60-63 22:52:00* Test Item Value Reference Range Interpretation Comments Urine Nitrite (test code = 22894-2) NEGATIVE NEGATIVE [facility] Tphpmuk2274-10-90 22:52:00* Test Item Value Reference Range Interpretation Comments Urine Protein (test code = 5804-0) 2+ NEGATIVE H [facility] Glucose (UA)2017-09-29 22:52:00* Test Item Value Reference Range Interpretation Comments Urine Glucose (UA) (test code = 2349-9) 3+ NEGATIVE H [facility] Vsgfrng6799-73-01 22:52:00* Test Item Value Reference Range Interpretation Comments Urine Ketones (test code = 46103-0) TRACE NEGATIVE H [facility] Opiates Ncowce4229-41-26 22:52:00* Test Item Value Reference Range Interpretation Comments Urine Opiates Screen (test code = 67558-9) POSITIVE NEGATIVE H This test provides only a screen. Positive results should be repeated by a confi rmatory test.[facility] Barbiturates Screen 2017-09-29 22:52:00* Test Item Value Reference Range Interpretation Comments Urine Barbiturates Screen (test code = 477973029) NEGATIVE NEGA TIVE [facility] Phencyclidine Vjupti6708-68-93 22:52:00* Test Item Value Reference Range Interpretation Comments Urine Phencyclidine Screen (test code = 05717-6) NEGATIVE NEGAT RHIANNA [facility] Amphetamines Hzagrz1073-83-58 22:52:00* Test Item Value Reference Range Interpretation Comments Urine Amphetamines Screen (test code = 58899-4) NEGATIVE NEGATI VE [facility] Benzodiazepines Eajvxs3994-44-80 22:52:00* Test Item Value Reference Range Interpretation Comments Urine Benzodiazepines Screen (test code = 18590-7) NEGATIVE NEG ATIVE [facility] Cocaine Fciisy2763-90-04 22:52:00* Test Item Value Reference Range Interpretation Comments Urine Cocaine Screen (test code = Urine Cocaine Screen) NEGATIVE NEGATIVE [facility] Cannabinoids Vsqsix4340-77-65 22:52:00* Test Item Value Reference Range Interpretation Comments Urine Cannabinoids Screen (test code = 82464-8) NEGATIVE NEGATI VE THESE RESULTS ARE FOR MEDICAL TREATMENT ONLYTHIS REPORT CONTAINS UNCONFIR MED SCREENING RESULTS*POSITIVE RESULTS WILL BE CONFIRMED BY REFERENCE LAB UPON R EQUEST CUT-OFFDRUG CLASS CONCENTRATION ng/mLAmphetamines 1000Methamphetamines 1000Cocaine 300Opiate 300Phencyc lidine 25Cannabinoid 50Barbiturates 300Benzodiazepine 300Methadone 300[facility] Juwgrbplnsym0220-69-33 22:52:00* Test Item Value Reference Range Interpretation Comments Urine Urobilinogen (test code = 35570-8) 0.2 0.2-1 [facility] Iwsobafye2416-30-06 22:52:00* Test Item Value Reference Range Interpretation Comments Urine Bilirubin (test code = 1978-6) 1+ NEGATIVE H [facility] Lpbqk8694-03-41 22:52:00* Test Item Value Reference Range Interpretation Comments Urine Blood (test code = 85318-0) 2+ NEGATIVE H [facility] Zcnqb5867-15-06 22:52:00* Test Item Value Reference Range Interpretation Comments Urine Color (test code = 5778-6) YELLOW YELLOW [facility] Ivzscbh0170-42-75 22:52:00* Test Item Value Reference Range Interpretation Comments Urine Clarity (test code = 08577-9) SL CLOUDY CLEAR [facility] Specific Bmrpjsl8088-27-53 22:52:00 * Test Item Value Reference Range Interpretation Comments Urine Specific [place] (test code = 5811-5) 1.020 1.010-1.02 5 [facility] eC8369-17-47 22:52:00* Test Item Value Reference Range Interpretation Comments Urine pH (test code = 64137-0) 5 5-7 [facility] Leukocyte Ufgjolnv1349-65-32 22:52:00* Test Item Value Reference Range Interpretation Comments Urine Leukocyte Esterase (test code = 5799-2) TRACE NEGATIVE H [facility] Cedskxo8763-72-80 22:52:00* Test Item Value Reference Range Interpretation Comments Urine Nitrite (test code = 08937-9) NEGATIVE NEGATIVE [facility] Pmyismz8336-34-23 22:52:00* Test Item Value Reference Range Interpretation Comments Urine Protein (test code = 5804-0) 2+ NEGATIVE H [facility] Glucose (UA)2017-09-29 22:52:00* Test Item Value Reference Range Interpretation Comments Urine Glucose (UA) (test code = 2349-9) 3+ NEGATIVE H [facility] Ysyosuq5773-67-66 22:52:00* Test Item Value Reference Range Interpretation Comments Urine Ketones (test code = 71908-3) TRACE NEGATIVE H [facility] Opiates Iqycbo0324-23-87 22:52:00* Test Item Value Reference Range Interpretation Comments Urine Opiates Screen (test code = 78334-0) POSITIVE NEGATIVE H This test provides only a screen. Positive results should be repeated by a confi rmatory test.[facility] Barbiturates Screen 2017-09-29 22:52:00* Test Item Value Reference Range Interpretation Comments Urine Barbiturates Screen (test code = 824593057) NEGATIVE NEGA TIVE [facility] Phencyclidine Xokcxc7504-70-73 22:52:00* Test Item Value Reference Range Interpretation Comments Urine Phencyclidine Screen (test code = 33663-2) NEGATIVE NEGAT RHIANNA [facility] Amphetamines Lwsgcg1529-75-49 22:52:00* Test Item Value Reference Range Interpretation Comments Urine Amphetamines Screen (test code = 24837-6) NEGATIVE NEGATI VE [facility] Benzodiazepines Xysbtm2552-42-18 22:52:00* Test Item Value Reference Range Interpretation Comments Urine Benzodiazepines Screen (test code = 52333-0) NEGATIVE NEG ATIVE [facility] Cocaine Shuewl9489-43-91 22:52:00* Test Item Value Reference Range Interpretation Comments Urine Cocaine Screen (test code = Urine Cocaine Screen) NEGATIVE NEGATIVE [facility] Cannabinoids Eggthq5661-94-01 22:52:00* Test Item Value Reference Range Interpretation Comments Urine Cannabinoids Screen (test code = 53466-4) NEGATIVE NEGATI VE THESE RESULTS ARE FOR MEDICAL TREATMENT ONLYTHIS REPORT CONTAINS UNCONFIR MED SCREENING RESULTS*POSITIVE RESULTS WILL BE CONFIRMED BY REFERENCE LAB UPON R EQUEST CUT-OFFDRUG CLASS CONCENTRATION ng/mLAmphetamines 1000Methamphetamines 1000Cocaine 300Opiate 300Phencyc lidine 25Cannabinoid 50Barbiturates 300Benzodiazepine 300Methadone 300[facility] Ktctxthzamfb5496-59-86 22:52:00* Test Item Value Reference Range Interpretation Comments Urine Urobilinogen (test code = 76584-8) 0.2 0.2-1 [facility] Eleeiuocg1219-57-04 22:52:00* Test Item Value Reference Range Interpretation Comments Urine Bilirubin (test code = 1978-6) 1+ NEGATIVE H [facility] Rqtek4581-52-81 22:52:00* Test Item Value Reference Range Interpretation Comments Urine Blood (test code = 87538-3) 2+ NEGATIVE H [facility] Opiates Dtmttw8364-64-14 22:52:00* Test Item Value Reference Range Interpretation Comments Urine Opiates Screen (test code = 76569-2) POSITIVE NEGATIVE H This test provides only a screen. Positive results should be repeated by a confi rmatory test.[facility] Barbit[facility]ates Screen 2017-09-29 22:52:00* Test Item Value Reference Range Interpretation Comments Urine Barbiturates Screen (test code = 863165538) NEGATIVE NEGA TIVE [facility] Phencyclidine Bsjqze4048-18-52 22:52:00* Test Item Value Reference Range Interpretation Comments Urine Phencyclidine Screen (test code = 99575-9) NEGATIVE NEGAT RHIANNA [facility] Amphetamines Evlewk7825-53-52 22:52:00* Test Item Value Reference Range Interpretation Comments Urine Amphetamines Screen (test code = 15401-3) NEGATIVE NEGATI VE [facility] Benzodiazepines Uxhfcl4662-94-93 22:52:00* Test Item Value Reference Range Interpretation Comments Urine Benzodiazepines Screen (test code = 12275-6) NEGATIVE NEG ATIVE [facility] Cocaine Ezbhpi0803-65-36 22:52:00* Test Item Value Reference Range Interpretation Comments Urine Cocaine Screen (test code = Urine Cocaine Screen) NEGATIVE NEGATIVE [facility] Cannabinoids Swujat5607-76-97 22:52:00* Test Item Value Reference Range Interpretation Comments Urine Cannabinoids Screen (test code = 38666-9) NEGATIVE NEGATI VE THESE RESULTS ARE FOR MEDICAL TREATMENT ONLYTHIS REPORT CONTAINS UNCONFIR MED SCREENING RESULTS*POSITIVE RESULTS WILL BE CONFIRMED BY REFERENCE LAB UPON R EQUEST CUT-OFFDRUG CLASS CONCENTRATION ng/mLAmphetamines 1000Methamphetamines 1000Cocaine 300Opiate 300Phencyc lidine 25Cannabinoid 50Barbiturates 300Benzodiazepine 300Methadone 300[facility] Feefok5231-15-39 22:52:00* Test Item Value Reference Range Interpretation Comments Urine Opiates Screen (test code = 47446-8) POSITIVE NEGATIVE H This test provides only a screen. Positive results should be repeated by a confi rmatory test.[facility] Barbiturates Screen 2017-09-29 22:52:00* Test Item Value Reference Range Interpretation Comments Urine Barbiturates Screen (test code = 562618026) NEGATIVE NEGA TIVE [facility] Phencyclidine Whzjla0009-58-32 22:52:00* Test Item Value Reference Range Interpretation Comments Urine Phencyclidine Screen (test code = 42484-1) NEGATIVE NEGAT RHIANNA [facility] Amphetamines Lyxyty8211-40-83 22:52:00* Test Item Value Reference Range Interpretation Comments Urine Amphetamines Screen (test code = 63802-5) NEGATIVE NEGATI VE [facility] Benzodiazepines Tznxdr0949-63-04 22:52:00* Test Item Value Reference Range Interpretation Comments Urine Benzodiazepines Screen (test code = 19642-1) NEGATIVE NEG ATIVE [facility] Cocaine Qcqlik3124-85-74 22:52:00* Test Item Value Reference Range Interpretation Comments Urine Cocaine Screen (test code = Urine Cocaine Screen) NEGATIVE NEGATIVE [facility] Cannabinoids Ijqpak6859-40-36 22:52:00* Test Item Value Reference Range Interpretation Comments Urine Cannabinoids Screen (test code = 08816-8) NEGATIVE NEGATI VE THESE RESULTS ARE FOR MEDICAL TREATMENT ONLYTHIS REPORT CONTAINS UNCONFIR MED SCREENING RESULTS*POSITIVE RESULTS WILL BE CONFIRMED BY REFERENCE LAB UPON R EQUEST CUT-OFFDRUG CLASS CONCENTRATION ng/mLAmphetamines 1000Methamphetamines 1000Cocaine 300Opiate 300Phencyc lidine 25Cannabinoid 50Barbiturates 300Benzodiazepine 300Methadone 300[facility] O[facility]ates Vripeo3764-00-41 22:52:00* Test Item Value Reference Range Interpretation Comments Urine Opiates Screen (test code = 77462-9) POSITIVE NEGATIVE H This test provides only a screen. Positive results should be repeated by a confi rmatory test.[facility] Barbiturates Screen 2017-09-29 22:52:00* Test Item Value Reference Range Interpretation Comments Urine Barbiturates Screen (test code = 113698276) NEGATIVE NEGA TIVE [facility] Phencyclidine Lgntoi5389-31-58 22:52:00* Test Item Value Reference Range Interpretation Comments Urine Phencyclidine Screen (test code = 40539-7) NEGATIVE NEGAT RHIANNA [facility] Amphetamines Ifqtaa9581-35-05 22:52:00* Test Item Value Reference Range Interpretation Comments Urine Amphetamines Screen (test code = 61272-7) NEGATIVE NEGATI VE [facility] Benzodiazepines Xdcmxo6940-63-94 22:52:00* Test Item Value Reference Range Interpretation Comments Urine Benzodiazepines Screen (test code = 84172-2) NEGATIVE NEG ATIVE [facility] Cocaine Wlhlsd3489-18-16 22:52:00* Test Item Value Reference Range Interpretation Comments Urine Cocaine Screen (test code = Urine Cocaine Screen) NEGATIVE NEGATIVE [facility] Cannabinoids Bhjpaq8535-43-04 22:52:00* Test Item Value Reference Range Interpretation Comments Urine Cannabinoids Screen (test code = 32408-2) NEGATIVE NEGATI VE THESE RESULTS ARE FOR MEDICAL TREATMENT ONLYTHIS REPORT CONTAINS UNCONFIR MED SCREENING RESULTS*POSITIVE RESULTS WILL BE CONFIRMED BY REFERENCE LAB UPON R EQUEST CUT-OFFDRUG CLASS CONCENTRATION ng/mLAmphetamines 1000Methamphetamines 1000Cocaine 300Opiate 300Phencyc lidine 25Cannabinoid 50Barbiturates 300Benzodiazepine 300Methadone 300[facility]2017-10-22 15:42:00* Test Item Value Reference Range Interpretation Comments Blood Culture (test code = 46391773) NO GROWTH AFTER 5 DAYS, FINAL REPORT [facility]2017-10-22 15:42:00* Test Item Value Reference Range Interpretation Comments Blood Culture (test code = 43962874) NO GROWTH AFTER 5 DAYS, FINAL REPORT [facility]2017-10-22 15:42:00* Test Item Value Reference Range Interpretation Comments Blood Culture (test code = 33751792) NO GROWTH AFTER 5 DAYS, FINAL REPORT [facility]2017-10-22 15:42:00* Test Item Value Reference Range Interpretation Comments Blood Culture (test code = 44842615) NO GROWTH AFTER 5 DAYS, FINAL REPORT [facility]2017-10-22 15:42:00* Test Item Value Reference Range Interpretation Comments Blood Culture (test code = 17909346) NO GROWTH AFTER 5 DAYS, FINAL REPORT [facility] Total Cells Counted 2017-08-16 17:02:00* Test Item Value Reference Range Interpretation Comments Differential Total Cells Counted (test code = Differsimin tial Total Cells Counted) 100 [facility] HospitalNeutrophils % (Manual)2017-08-16 17:02:00 * Test Item Value Reference Range Interpretation Comments Neutrophils % (Manual) (test code = 13805-4) 63 40-74 [facility] HospitalLymphocytes % (Manual)2017-08-16 17:02:00 * Test Item Value Reference Range Interpretation Comments Lymphocytes % (Manual) (test code = 737-7) 32 19-48 [facility] % (Manual)2017-08-16 17:02:00* Test Item Value Reference Range Interpretation Comments Monocytes % (Manual) (test code = 744-3) 2 3.4-9.0 L [facility]Eosinophils % (Manual)2017-08-16 17:02:00 * Test Item Value Reference Range Interpretation Comments Eosinophils % (Manual) (test code = 714-6) 2 0-7 [facility] % (Manual)2017-08-16 17:02:00* Test Item Value Reference Range Interpretation Comments Basophils % (Manual) (test code = 89195-8) 1 0-1.5 [facility] HospitalPlatelet Gsuahatj4140-14-78 17:02:00* Test Item Value Reference Range Interpretation Comments Platelet Estimate (test code = 07932-4) ADEQUATE [facility] HospitalPlatelet Morphology Cjqorqj7847-42-05 17:02:00* Test Item Value Reference Range Interpretation Comments Platelet Morphology Comment (test code = 32590-3) NORMAL [facility] HospitalRed Cell Morphology Cwecgam3391-18-40 17:02:00* Test Item Value Reference Range Interpretation Comments Red Cell Morphology Comment (test code = 6742-1) NORMAL [facility] HospitalDifferential Total Cells Counted 2017-08-16 17:02:00* Test Item Value Reference Range Interpretation Comments Differential Total Cells Counted (test code = Eitan rivero Total Cells Counted) 100 [facility] HospitalNeutrophils % (Manual)2017-08-16 17:02:00 * Test Item Value Reference Range Interpretation Comments Neutrophils % (Manual) (test code = 40839-9) 63 40-74 [facility] HospitalLymphocytes % (Manual)2017-08-16 17:02:00 * Test Item Value Reference Range Interpretation Comments Lymphocytes % (Manual) (test code = 737-7) 32 19-48 [facility] HospitalMon[facility] % (Manual)2017-08-16 17:02:00* Test Item Value Reference Range Interpretation Comments Monocytes % (Manual) (test code = 744-3) 2 3.4-9.0 L [facility] HospitalEosinophils % (Manual)2017-08-16 17:02:00 * Test Item Value Reference Range Interpretation Comments Eosinophils % (Manual) (test code = 714-6) 2 0-7 [facility]Bas[facility] % (Manual)2017-08-16 17:02:00* Test Item Value Reference Range Interpretation Comments Basophils % (Manual) (test code = 21946-5) 1 0-1.5 [facility] HospitalPlatelet Sulyhezk4459-76-58 17:02:00* Test Item Value Reference Range Interpretation Comments Platelet Estimate (test code = 50047-4) ADEQUATE [facility] HospitalPlatelet Morphology Twtawpt5078-13-07 17:02:00* Test Item Value Reference Range Interpretation Comments Platelet Morphology Comment (test code = 92047-7) NORMAL [facility] HospitalRed Cell Morphology Vkyrxeq3272-19-86 17:02:00* Test Item Value Reference Range Interpretation Comments Red Cell Morphology Comment (test code = 6742-1) NORMAL [facility] HospitalDifferential Total Cells Counted 2017-08-16 17:02:00* Test Item Value Reference Range Interpretation Comments Differential Total Cells Counted (test code = Paulettesimin tial Total Cells Counted) 100 [facility] HospitalNeutrophils % (Manual)2017-08-16 17:02:00 * Test Item Value Reference Range Interpretation Comments Neutrophils % (Manual) (test code = 36391-4) 63 40-74 [facility] HospitalLymphocytes % (Manual)2017-08-16 17:02:00 * Test Item Value Reference Range Interpretation Comments Lymphocytes % (Manual) (test code = 737-7) 32 19-48 [facility] HospitalMon[facility] % (Manual)2017-08-16 17:02:00* Test Item Value Reference Range Interpretation Comments Monocytes % (Manual) (test code = 744-3) 2 3.4-9.0 L [facility] HospitalEosinophils % (Manual)2017-08-16 17:02:00 * Test Item Value Reference Range Interpretation Comments Eosinophils % (Manual) (test code = 714-6) 2 0-7 [facility] HospitalBas[facility] % (Manual)2017-08-16 17:02:00* Test Item Value Reference Range Interpretation Comments Basophils % (Manual) (test code = 37265-0) 1 0-1.5 [facility] HospitalPlatelet Nougcgxh0430-93-70 17:02:00* Test Item Value Reference Range Interpretation Comments Platelet Estimate (test code = 42956-6) ADEQUATE [facility] HospitalPlatelet Morphology Zenpbmm3496-77-33 17:02:00* Test Item Value Reference Range Interpretation Comments Platelet Morphology Comment (test code = 32903-7) NORMAL [facility] HospitalRed Cell Morphology Rlwvbbb4747-89-49 17:02:00* Test Item Value Reference Range Interpretation Comments Red Cell Morphology Comment (test code = 6742-1) NORMAL [facility] HospitalDifferential Total Cells Counted 2017-08-16 17:02:00* Test Item Value Reference Range Interpretation Comments Differential Total Cells Counted (test code = Eitan tial Total Cells Counted) 100 [facility] HospitalNeutrophils % (Manual)2017-08-16 17:02:00 * Test Item Value Reference Range Interpretation Comments Neutrophils % (Manual) (test code = 49316-6) 63 40-74 [facility] HospitalLymphocytes % (Manual)2017-08-16 17:02:00 * Test Item Value Reference Range Interpretation Comments Lymphocytes % (Manual) (test code = 737-7) 32 19-48 [facility]Mon[facility] % (Manual)2017-08-16 17:02:00* Test Item Value Reference Range Interpretation Comments Monocytes % (Manual) (test code = 744-3) 2 3.4-9.0 L [facility] HospitalEosinophils % (Manual)2017-08-16 17:02:00 * Test Item Value Reference Range Interpretation Comments Eosinophils % (Manual) (test code = 714-6) 2 0-7 [facility]Bas[facility] % (Manual)2017-08-16 17:02:00* Test Item Value Reference Range Interpretation Comments Basophils % (Manual) (test code = 42571-6) 1 0-1.5 [facility] HospitalPlatelet Bkuowadi4639-17-42 17:02:00* Test Item Value Reference Range Interpretation Comments Platelet Estimate (test code = 59180-0) ADEQUATE [facility] HospitalPlatelet Morphology Xsqekho1372-11-72 17:02:00* Test Item Value Reference Range Interpretation Comments Platelet Morphology Comment (test code = 59007-6) NORMAL [facility] HospitalRed Cell Morphology Xxsoimg0415-55-20 17:02:00* Test Item Value Reference Range Interpretation Comments Red Cell Morphology Comment (test code = 6742-1) NORMAL [facility] HospitalDifferential Total Cells Counted 2017-08-16 17:02:00* Test Item Value Reference Range Interpretation Comments Differential Total Cells Counted (test code = Differsimin tial Total Cells Counted) 100 [facility] HospitalNeutrophils % (Manual)2017-08-16 17:02:00 * Test Item Value Reference Range Interpretation Comments Neutrophils % (Manual) (test code = 52486-1) 63 40-74 [facility] HospitalLymphocytes % (Manual)2017-08-16 17:02:00 * Test Item Value Reference Range Interpretation Comments Lymphocytes % (Manual) (test code = 737-7) 32 19-48 [facility] HospitalMonocytes % (Manual)2017-08-16 17:02:00* Test Item Value Reference Range Interpretation Comments Monocytes % (Manual) (test code = 744-3) 2 3.4-9.0 L [facility] HospitalEosinophils % (Manual)2017-08-16 17:02:00 * Test Item Value Reference Range Interpretation Comments Eosinophils % (Manual) (test code = 714-6) 2 0-7 [facility] HospitalBasophils % (Manual)2017-08-16 17:02:00* Test Item Value Reference Range Interpretation Comments Basophils % (Manual) (test code = 15400-9) 1 0-1.5 [facility] HospitalPlatelet Fywvoahb5189-86-76 17:02:00* Test Item Value Reference Range Interpretation Comments Platelet Estimate (test code = 20457-4) ADEQUATE [facility] HospitalPlatelet Morphology Cuzebeb4926-55-12 17:02:00* Test Item Value Reference Range Interpretation Comments Platelet Morphology Comment (test code = 44015-4) NORMAL [facility] HospitalRed Cell Morphology Ffqrglj2208-66-01 17:02:00* Test Item Value Reference Range Interpretation Comments Red Cell Morphology Comment (test code = 6742-1) NORMAL [facility] Lixzwfekr1052-85-79 16:20:00* Test Item Value Reference Range Interpretation Comments Direct Bilirubin (test code = 93465-7) -0.1 0.0-5.0 [facility] Theqzfvaw5860-39-24 16:20:00* Test Item Value Reference Range Interpretation Comments Direct Bilirubin (test code = 91024-3) -0.1 0.0-5.0 [facility] Dzaatbgxt3890-48-85 16:20:00* Test Item Value Reference Range Interpretation Comments Direct Bilirubin (test code = 35705-2) -0.1 0.0-5.0 [facility] Ufaljqdrv5259-76-69 16:20:00* Test Item Value Reference Range Interpretation Comments Direct Bilirubin (test code = 99744-7) -0.1 0.0-5.0 [facility] Bceixiupq1382-85-01 16:20:00* Test Item Value Reference Range Interpretation Comments Direct Bilirubin (test code = 09082-1) -0.1 0.0-5.0 [facility] Liobk6247-70-53 16:08:00* Test Item Value Reference Range Interpretation Comments Lactic Acid Level (test code = Lactic Acid Level) 29.2 4.5- 19.8 H [facility] Yrvoi6736-83-58 16:08:00* Test Item Value Reference Range Interpretation Comments Lactic Acid Level (test code = Lactic Acid Level) 29.2 4.5- 19.8 H [facility] HospitalL[facility] Acid Arkvn6439-01-30 16:08:00* Test Item Value Reference Range Interpretation Comments Lactic Acid Level (test code = Lactic Acid Level) 29.2 4.5- 19.8 H [facility] Acid Sbwve9950-70-15 16:08:00* Test Item Value Reference Range Interpretation Comments Lactic Acid Level (test code = Lactic Acid Level) 29.2 4.5- 19.8 H [facility] HospitalL[facility] Acid Wbueq5953-58-30 16:08:00* Test Item Value Reference Range Interpretation Comments Lactic Acid Level (test code = Lactic Acid Level) 29.2 4.5- 19.8 H [facility] HospitalUrine Adryb3572-19-24 16:04:00* Test Item Value Reference Range Interpretation Comments Urine Mucus (test code = 8247-9) MANY [facility] Liflu1985-43-33 16:04:00* Test Item Value Reference Range Interpretation Comments Urine Mucus (test code = 8247-9) [facility] Yxevk7395-85-12 16:04:00* Test Item Value Reference Range Interpretation Comments Urine Mucus (test code = 8247-9) [facility] Orhvr6577-89-29 16:04:00* Test Item Value Reference Range Interpretation Comments Urine Mucus (test code = 8247-9) [facility] Zszuk7350-05-09 19:39:00* Test Item Value Reference Range Interpretation Comments Ethyl Alcohol Level (test code = 5643-2) -10.0 0.0-10.0 [facility] Ospdn4153-34-24 19:39:00* Test Item Value Reference Range Interpretation Comments Ethyl Alcohol Level (test code = 5643-2) -10.0 0.0-10.0 [facility]Eth[facility] Alcohol Qbzql8300-24-83 19:39:00* Test Item Value Reference Range Interpretation Comments Ethyl Alcohol Level (test code = 5643-2) -10.0 0.0-10.0 [facility] HospitalEth[facility] Alcohol Fwjxh1597-26-59 19:39:00* Test Item Value Reference Range Interpretation Comments Ethyl Alcohol Level (test code = 5643-2) -10.0 0.0-10.0 [facility] HospitalBedside Qdtyfoj4269-20-09 19:14:00* Test Item Value Reference Range Interpretation Comments Bedside Glucose (test code = 81048-7) 187 70-120 H Meter ID: [id number] Memorial HospitalUrine PAA4003-40-43 17:51:00* Test Item Value Reference Range Interpretation Comments Urine WBC (test code = 5821-4) 0-5 0-5 [facility] ORC2359-93-66 17:51:00* Test Item Value Reference Range Interpretation Comments Urine RBC (test code = 89829-3) 0-5 0-5 [facility] Fnndexuu3167-69-43 17:51:00* Test Item Value Reference Range Interpretation Comments Urine Bacteria (test code = 23058-5) FEW NONE [facility] Epithelial Yszwm1079-04-31 17:51:00 * Test Item Value Reference Range Interpretation Comments Urine Epithelial Cells (test code = 78831-7) FEW NONE [facility] Vccej5744-10-62 17:49:00* Test Item Value Reference Range Interpretation Comments Urine Color (test code = 5778-6) YELLOW YELLOW [facility] Ellgchx5221-56-41 17:49:00* Test Item Value Reference Range Interpretation Comments Urine Clarity (test code = 79052-4) CLEAR CLEAR [facility] HospitalU[facility] Specific Ayffmyd9133-88-98 17:49:00 * Test Item Value Reference Range Interpretation Comments Urine Specific [place] (test code = 5811-5) 1.015 1.010-1.02 5 [facility] zB0235-40-45 17:49:00* Test Item Value Reference Range Interpretation Comments Urine pH (test code = 71084-3) 5 5-7 [facility] Leukocyte Vtanwnaj7106-71-67 17:49:00* Test Item Value Reference Range Interpretation Comments Urine Leukocyte Esterase (test code = 5799-2) NEGATIVE NEGATIVE [facility] Fgeqizk4296-68-57 17:49:00* Test Item Value Reference Range Interpretation Comments Urine Nitrite (test code = 39193-7) NEGATIVE NEGATIVE [facility] Rlxldow1191-27-18 17:49:00* Test Item Value Reference Range Interpretation Comments Urine Protein (test code = 5804-0) 1+ NEGATIVE H [facility] HospitalU[facility] Glucose (UA)2017-07-15 17:49:00* Test Item Value Reference Range Interpretation Comments Urine Glucose (UA) (test code = 2349-9) 3+ NEGATIVE H [facility] HospitalU[facility] Ssblxkj7574-24-69 17:49:00* Test Item Value Reference Range Interpretation Comments Urine Ketones (test code = 40004-3) NEGATIVE NEGATIVE [facility] Sqddxhgnueid1612-19-16 17:49:00* Test Item Value Reference Range Interpretation Comments Urine Urobilinogen (test code = 54756-5) 0.2 0.2-1 [facility] Hospital[facility] Zugpvhzfe2587-59-61 17:49:00* Test Item Value Reference Range Interpretation Comments Urine Bilirubin (test code = 1978-6) NEGATIVE NEGATIVE [facility] Okgus3186-87-24 17:49:00* Test Item Value Reference Range Interpretation Comments Urine Blood (test code = 07935-9) NEGATIVE [facility]GATIVE [facility] Jlutc0323-55-96 17:19:00* Test Item Value Reference Range Interpretation Comments Sodium Level (test code = 2951-2) 140 136-145 [facility] HospitalPotassium Bbirx1254-64-44 17:19:00* Test Item Value Reference Range Interpretation Comments Potassium Level (test code = 2823-3) 4.3 3.5-5.1 [facility] HospitalChloride Nwwwe6288-01-37 17:19:00* Test Item Value Reference Range Interpretation Comments Chloride Level (test code = 2075-0) 105 98-107 [facility] HospitalCarbon Dioxide Xfxbt4714-81-29 17:19:00* Test Item Value Reference Range Interpretation Comments Carbon Dioxide Level (test code = 2028-9) 25 22-29 [facility] HospitalAnion Ncf8482-64-78 17:19:00* Test Item Value Reference Range Interpretation Comments Anion Gap (test code = 00015-9) 14.3 8-16 [facility] HospitalBlood Urea Bjvzyvhs2315-88-99 17:19:00* Test Item Value Reference Range Interpretation Comments Blood Urea Nitrogen (test code = 3094-0) 29 7-26 H [facility] HospitalCreatinine2017-09-15 17:19:00* Test Item Value Reference Range Interpretation Comments Creatinine (test code = 2160-0) 1.63 0.57-1.11 H [facility] HospitalBUN/Creatinine Smutd5124-25-56 17:19:00* Test Item Value Reference Range Interpretation Comments BUN/Creatinine Ratio (test code = 3097-3) 18 6-25 [facility] HospitalEstimat Glomerular Filtration Rate 2017-07-15 17:19:00* Test Item Value Reference Range Interpretation Comments Estimat Glomerular Filtration Rate (test code = 50566-0) 33 >60 L Ranges were taken from the National Kidney Disease Education Program and the [facility] Foundation literature.Reference ranges:60 or greater: Whagry57-58 ( for 3 consecutive months): Chronic kidney disease 15 or less: Kidney failureParkland Memorial HospitalGlucose Tkdaf5372-09-78 17:19:00* Test Item Value Reference Range Interpretation Comments Glucose Level (test code = AED2651) 103 74-118 [facility] HospitalCalcium Uferq4218-21-57 17:19:00* Test Item Value Reference Range Interpretation Comments Calcium Level (test code = 26089-3) 9.7 8.4-10.2 [facility] HospitalTotal Rgfqmileh6638-10-61 17:19:00* Test Item Value Reference Range Interpretation Comments Total Bilirubin (test code = 1975-2) 0.2 0.2-1.2 [facility] HospitalAspartate Amino Transf (AST/SGOT) 2017-07-15 17:19:00* Test Item Value Reference Range Interpretation Comments Aspartate Amino Transf (AST/SGOT) (test code = Aspartate Amino Transf (AST/SGOT)) 9 5-34 [facility] HospitalAlanine Aminotransferase (ALT/SGPT) 2017-07-15 17:19:00* Test Item Value Reference Range Interpretation Comments Alanine Aminotransferase (ALT/SGPT) (test code = 1742-6) 7 0-55 [facility] HospitalTotal Ygjrxaf3049-03-16 17:19:00* Test Item Value Reference Range Interpretation Comments Total Protein (test code = 2885-2) 6.9 6.5-8.1 [facility] HospitalAlbumin2017-09-15 17:19:00* Test Item Value Reference Range Interpretation Comments Albumin (test code = 1751-7) 3.1 3.5-5.0 L [facility] HospitalGlobulin2017-09-15 17:19:00* Test Item Value Reference Range Interpretation Comments Globulin (test code = 96070-5) 3.8 2.3-3.5 H [facility] HospitalAlbumin/Globulin Giqjk0962-38-84 17:19:00 * Test Item Value Reference Range Interpretation Comments Albumin/Globulin Ratio (test code = 1759-0) 0.8 0.8-2.0 [facility] HospitalAlkaline Dpukwnqncoi2079-07-95 17:19:00* Test Item Value Reference Range Interpretation Comments Alkaline Phosphatase (test code = 6768-6) 143 40-150 [facility] HospitalCHEST SINGLE (PORTABLE)2017-07-15 17:11:00 [place] [address] Patient Name: STEPHANIE CAMERON MR #: [id number] : 1960 Age/Sex: 57/F Req #: [id number] Adm Physician: Ordered by: SIOBHAN PORTER MD Report #: [id number] Location: ER Room/Bed: Procedure: [id number] DX/CHEST SINGLE (PORTABLE ) Exam Date: 07/15/17 [...] Dictated by: Rick Mohan M.D. on 07/15/2017 a t 17:11 Electronically approved by: Rick Mohan M.D. on 07/15/2017 a t 17:11 Dictated By: RICK MOHAN MD Electronically Sign ed By: RICK MOHAN MD on 07/15/171710 Transcribed By: OSCAR on 07/15/171710 COPY TO: SIOBHAN PORTER MD White Blood Lxrqu3397-61-45 17:01:00* Test Item Value Reference Range Interpretation Comments White Blood Count (test code = 6690-2) 14.40 4.8-10.8 H [facility] HospitalRed Blood Lnkut7735-22-66 17:01:00* Test Item Value Reference Range Interpretation Comments Red Blood Count (test code = 789-8) 3.93 3.6-5.1 [facility] HospitalHemoglobin2017-09-15 17:01:00* Test Item Value Reference Range Interpretation Comments Hemoglobin (test code = 28294-5) 11.2 12.0-16.0 L [facility] HospitalHematocrit2017-09-15 17:01:00* Test Item Value Reference Range Interpretation Comments Hematocrit (test code = 4544-3) 34.8 34.2-44.1 [facility] HospitalMean Corpuscular Yhpsjq9077-92-70 17:01:00* Test Item Value Reference Range Interpretation Comments Mean Corpuscular Volume (test code = 787-2) 88.5 81-99 [facility] HospitalMean Corpuscular Jefxgpfhfv8709-45-94 17:01:00* Test Item Value Reference Range Interpretation Comments Mean Corpuscular Hemoglobin (test code = 785-6) 28.5 28-32 [facility] HospitalMean Corpuscular Hemoglobin Concent 2017-07-15 17:01:00* Test Item Value Reference Range Interpretation Comments Mean Corpuscular Hemoglobin Concent (test code = 786-4) 32.2 31-35 [facility] HospitalRed Cell Distribution Cvxxz2724-13-94 17:01:00* Test Item Value Reference Range Interpretation Comments Red Cell Distribution Width (test code = 63840-1) 15.4 11.7 -14.4 H [facility] HospitalPlatelet Ubsgd3175-19-96 17:01:00* Test Item Value Reference Range Interpretation Comments Platelet Count (test code = 777-3) 355 140-360 [facility] HospitalNeutrophils (%) (Auto)2017-07-15 17:01:00 * Test Item Value Reference Range Interpretation Comments Neutrophils (%) (Auto) (test code = 58665-6) 62.3 38.7-80.0 [facility] HospitalLymphocytes (%) (Auto)2017-07-15 17:01:00 * Test Item Value Reference Range Interpretation Comments Lymphocytes (%) (Auto) (test code = 736-9) 27.3 18.0-39.1 [facility] HospitalMonocytes (%) (Auto)2017-07-15 17:01:00* Test Item Value Reference Range Interpretation Comments Monocytes (%) (Auto) (test code = 5905-5) 7.2 4.4-11.3 [facility] HospitalEosinophils (%) (Auto)2017-07-15 17:01:00 * Test Item Value Reference Range Interpretation Comments Eosinophils (%) (Auto) (test code = 713-8) 1.7 0.0-6.0 [facility] HospitalBasophils (%) (Auto)2017-07-15 17:01:00* Test Item Value Reference Range Interpretation Comments Basophils (%) (Auto) (test code = 706-2) 0.6 0.0-1.0 [facility] HospitalIM GRANULOCYTES %2017-07-15 17:01:00* Test Item Value Reference Range Interpretation Comments IM GRANULOCYTES % (test code = IM GRANULOCYTES %) 0.9 0.0- 1.0 [facility] HospitalNeutrophils # (Auto)2017-07-15 17:01:00* Test Item Value Reference Range Interpretation Comments Neutrophils # (Auto) (test code = 751-8) 9.0 2.1-6.9 H [facility] HospitalLymphocytes # (Auto)2017-07-15 17:01:00* Test Item Value Reference Range Interpretation Comments Lymphocytes # (Auto) (test code = 69848-0) 3.9 1.0-3.2 H [facility] HospitalMonocytes # (Auto)2017-07-15 17:01:00* Test Item Value Reference Range Interpretation Comments Monocytes # (Auto) (test code = 742-7) 1.0 0.2-0.8 H [facility] HospitalEosinophils # (Auto)2017-07-15 17:01:00* Test Item Value Reference Range Interpretation Comments Eosinophils # (Auto) (test code = 711-2) 0.2 0.0-0.4 [facility] HospitalBasophils # (Auto)2017-07-15 17:01:00* Test Item Value Reference Range Interpretation Comments Basophils # (Auto) (test code = 704-7) 0.1 0.0-0.1 [facility] HospitalAbsolute Immature Granulocyte (auto 2017-07-15 17:01:00* Test Item Value Reference Range Interpretation Comments Absolute Immature Granulocyte (auto (romelia t code = Absolute Immature Granulocyte (auto) 0.13 0-0.1 H [facility]CHE[facility] [address] [place] [address] Patient Name: STEPHANIE CAMERON MR #: [id number] : 1960 Age/Sex: 57/F Req #: [id number] Adm Physician: LOLA BOUCHER MD Ordered by: AKBAR MENDEZ NP Report #: [id number] Locat ion: IMCU Room/Bed: [place] [address] Procedure: [id number] D X/CHEST SINGLE (PORTABLE) Exam Date: 02/04/18 [...] 6:44 AM Dictated By: CANDIDO LAY MD Transcribed By: SCOTT on 02/04/1844 COPY TO: AKBAR MENDEZ NP CHEST SINGLE (PORTABLE) [place] [address] Patient Name: STEPHANIE CAMERON MR #: [id number] : 1960 Age/Sex: 57/F Req #: [id number] Adm Physician: Ordered by: AKBAR MENDEZ NP Report #: [id number] Location: ER Room/Bed : Procedure: [id number] DX/CHEST SINGLE (PORTABLE) Ex am Date: 02/03/18 Exam Time: 1105 REPORT STATUS : Signed PROCEDURE: A single AP view of the chest. COMPARISON: None. INDICATIONS: LOW BLOOD SUGAR FINDINGS: Lines/tubes: None. Lungs: The lungs are well inflated. Minimal right basal atelectatic zachery nges. 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 Parenchyma: No abnormal densities. N o masses, hemorrhage, acute or chronic cortical vascular [...] By: SCOTT on 11/06/17 1323 COPY TO: ISIAH HALE MD CT BRAIN WO [place] [address] Patient Name: STEPHANIE CAMERON MR #: [id number] : 1960 Age/Sex: 57/F Req #: [id number] Adm Physician: Ordered by: ISAIH HALE MD Report #: [id number] Location: ER Room/Bed: Procedure: [id number] CT/CT BRAIN WO Exam Date: 11/06/17 Exam [...] Normal in size and configuration. No hydrocephalus. Extra-axia l spaces: Right frontal arachnoid cyst abutting the [...] canal and foramina. Incidental findings: None. Impression: Hea d CT: 1. No acute abnormality. Cervical spine CT: 1. No acute abno rmalities. 2. Cannot exclude ligament, spinal cord and or vascular abnormalit ies on the basis of this examination. Signed by: DR Anmol Clinton M.D. on 11/06/2017 1:23 PM Dictated By: ANMOL GARZA MD [facility] Signed By: ANMOL GARZA MD on 11/06/17 1323 Transcribed By: SCOTT awad 11/06/17 1323 COPY TO: ISIAH HALE MD [facility] [address] Patient Name: STEPHANIE CAMERON MR #: [id number] : 1960 Age/Sex: 57/F Req #: [id number] Adm Physician: Ordered by: CORRIE DEVRIES DO Report #: [id number] Location: MRI Room/Bed: Procedure: [id number] MRI/MRI SHOULDER RIGHT WO Ex am Date: [...] O: CORRIE DEVRIES DO CT BRAIN WO [place] [address] Patient Name: STEPHANIE CAMERON MR #: [id number] : 1960 Age/Sex: 57/F Req #: [id number] Adm Physician: Ordered by: MARYLU VALDOVINOS MD Report #: [id number] Location: ER Room/Bed: Procedure: [id number] CT/CT BRAIN WO Exam Da te: 09/29/17 [...] Dg Zeng M.D. on 09/29/2017 8:36 PM Dictat ed By: DG ZENG MD 35 COPY TO: Alverto VALDOVINOS MD CHEST SINGLE (PORTABLE) [place] [address] Patient Name: STEPHANIE CAMERON MR #: [id number] : 1960 Age/Sex: 57/F Req #: [id number] Adm Physician: Ordered by: MARYLU VALDOVINOS MD Report #: [id number] Location: ER Room/Bed: Procedure: [id number] DX/CHEST SINGLE (PORTAB LE) Exam Date: 09/29/17 Exam Time: 2000 REPORT STATUS: Signed EXAM: CHEST SINGLE (PORTABLE), [...] TO: MARYLU VALDOVINOS MD CHEST 2 VIEWS [place] [address] Patient Name: STEPHANIE CAMERON MR #: [id number] : 1960 Age/Sex: 57/F Req #: [id number] Adm Physician: LOLA BOUCHER MD Ordered by: LOLA BOUCHER MD Report #: [id number] Location: [facility] Room/Bed: [facility] Procedure: [id number] DX/CHEST 2 VIEWS Exam Date: 08/18/17 Exam [...] Dictated By: RICK MOHAN MD 1228 Transcribed B y: INFCE on 08/18/17 1228 COPY TO: LOLA BOUCHER MD SHOULDER RIGHT COMPLETE [place] [address] Patient Name: STEPHANIE CAMERON MR #: [id number] : 1960 Age/Sex: 57/F Req #: [id number] Adm Physician: LOLA BOUCHER MD Ordered by: LOLA BOUCHER MD Report #: [id number] Location: [facility] Room/Bed: [facility] Procedure: [id number] DX/SHOULDER RIGHT COMPLETE Exam Date: 08/18/17 Exam [...] TO: LOLA BOUCHER MD CHEST 2 VIEWS [place] [address] Patient Name: STEPHANIE CAMERON MR #: [id number] : 1960 Age/Sex: 57/F Req #: [id number] Adm Physician: Ordered by: LUZ SALAS Report #: [id number] Location: ER Room/Bed: Procedure: [id number] DX/CHEST 2 VIEWS Exam Date: 08/16/17 Exam [...] at 16:18 Dictated By: RAYMON MIRANDA MD 1618 Transcribed By: OSCAR on 08/16/17 1618 COPY TO: LUZ SALAS CT BRAIN WO [facility] [address] [place] [address] Patient Name: STEPHANIE CAMERON MR #: [id number] : 1960 Age/Sex: 57/F Req #: [id number] Adm Physician: Ordered by: JACIEL BECKER MD Report #: [id number] Location: ER Room/Be d: Procedure: [id number] CT/CT BRAIN WO Exam Date: Exam Time: [...] TO: JACIEL BECKER MD CHEST SINGLE (PORTABLE) [place] [address] Patient Name: STEPHANIE CAMERON MR #: [id number] : 1960 Age/Sex: 57/F Req #: [id number] Adm Physician: Ordered by: JACIEL BECKER MD Report #: [id number] Location: ER Room/Bed: Procedure: [id number] DX/CHEST SINGLE (PORTABLE) E xam Date: 07/22/17 [...] MD 03 Transcribed By: SCOTT on 07/22/172003 SUPERVISOR PROP MAKING Y TO: JACIEL BECKER MD CHEST SINGLE (PORTABLE) [place] [address] Patient Name: STEPHANIE CAMERON MR #: [id number] : 1960 Age/Sex: 57/F Req #: [id number] Adm Physician: Ordered by: SIOBHAN PORTER MD Report #: [id number] Location: ER Room/Bed: Procedure: [id number] DX/CHEST SINGLE (PORTABLE) Exam Date: 07/15/17 Exam [...]
--- OUTSIDE RECORDS SUMMARY | 2020-06-13 17:36 | XMS REPORT | Clinical Summary ---
Author Author [facility] Organization [facility] Address Unknown Phone Unavailable Care Team Providers Care Burr Grinder Name Role Phone JoonDaren Aren RAYGOZA PCP Allergies Comments Active Allergy Reactions Severity Noted Date Intensifies asthma Aspirin Other (See Comments) Chocolate Flavor 02/28/2020 Egg 02/28/2020 Iodine And Iodide Anaphylaxis High 02/28/2020 Containing Products Kiwi (Actinidia 02/28/2020 Chinensis) Cameron 02/28/2020 Milk Containing Products 02/28/2020 [place] Juice 02/28/2020 Passion Fruit 02/28/2020 Peanut Anaphylaxis [...] Specialty Tobias Vang MD Siddique, MD Jaime Elise Shireen, MD Acute hypercapnic respiratory failure (H CC); Aspiration pneumonia of both lower lobes due to gastric secretions (HCC) 02/28/2020 Hospital Cardiology - Encounter 03/01/2020 Tobias Vang MD Nrhd-io-Rsgy Call 02/28/2020 Telephone Critical Care Medic ine Tobias Vang MD Khsj-vm-Plsh Call 02/28/2020 Telephone Critical Care Medic ine [...] : TESTED AT 70 - 110 mg/dL [address] [address]: Community Health Worker/Stroboroma Operator ID = [id number] for RUSLAN CRUZ Specimen Blood Performing Organization Address City/State/Zipcode Ph one Number [address] [facility] * Phosphorus (03/01/2020 4:18 AM CDT) Only the most recent of 2 results within the time period is included. Phosphorus 3.4 2.3 - 4.7 mg/dL [facility] Specimen Blood Narrative Performed At Community Health Worker ID - GABINO Main [facility] Performing Organization Address City/[facility] Ph one Aric [address] [facility] * Basic Metabolic Panel (03/01/2020 4:18 AM CDT) Only the most recent of 3 results within the time period is included. Sodium 139 136 - 145 meq/L [facility] Potassium 4.6 3.5 - 5.1 meq/L [facility] Chloride 101 98 - 107 meq/L [facility] CO2 33 (H) 22 - 29 meq/L [facility] BUN 13 7 - 21 mg/dL [facility] Creatinine 0.87 0.57 - 1.25 mg/dL [facility] Glucose 159 (H) 70 - 105 mg/dL [facility] Calcium 8.7 8.4 - 10.2 mg/dL [facility] EGFR 67Comment: ESTIMATED GFR IS mL/min/1.73 sq m [facility] NOT ACCURATE CREATININE [facility] CLEARANCE IN PREDICTING GLOMERULAR FILTRATION RATE. ESTIMATED GFR IS NOT APPLICABLE FOR DIALYSIS PATIENTS. Specimen Blood Narrative Performed At Community Health Worker ID - GABINO Main [facility] Performing Organization Address City/[facility] Ph one Aric [facility] [address] [place], [place] [address] [facility] * CBC (Hemogram only) (03/01/2020 3:26 AM CDT) Only the most recent of 2 results within the time period is included. WBC 8.7 3.5 - 10.5 K/L [facility] RBC 3.96 3.93 - 5.22 M/L [facility] Hemoglobin 8.6 (L) 11.2 - 15.7 GM/DL [facility] Hematocrit 30.5 (L) 34.1 - 44.9 % [facility] MCV 77.0 (L) 79.4 - 94.8 fL [facility] MCH 21.7 (L) 25.6 - 32.2 pg [facility] MCHC 28.2 (L) 32.2 - 35.5 GM/DL [facility] RDW 22.1 (H) 11.7 - 14.4 % [facility] Platelets 341 150 - 450 K/CU MM [facility] MPV 8.6 (L) 9.4 - 12.3 fL [facility] nRBC 0 0 - 0 /100 WBC [facility] Specimen Blood Performing Organization Address City/[facility] Ph one Number [place] [address] [address] [phone] [place] [address] * Vancomycin level, trough (02/29/2020 10:38 PM CDT) Vancomycin Tr 15.7 10.0 - 20.0 ug/mL [facility] Specimen Blood Narrative Performed At Community Health Worker ID - DB [facility] Performing Organization Address City/[facility] Ph one Number [place] [address] [facility] * Urinalysis w/Microscopic + Reflex to Culture (02/28/2020 6:05 PM CDT) Color, UA Light Yellow [facility] Clarity, UA Clear [facility] Specific [place], UA 1.007 1.001 - 1.035 [facility] pH, UA 7.5 5.0 - 8.0 [facility] Protein, UA Negative Negative [facility] Glucose, UA Negative Negative [facility] Ketones, UA Negative Negative [facility] Bilirubin, UA Negative Negative [facility] Blood, UA Negative Negative [facility] Nitrite, UA Negative Negative [facility] Leukocytes, UA Negative Negative [facility] Urobilinogen, UA 0.2 0.2 - 1.0 mg/dL [facility] RBC, UA <1 /HPF [facility] WBC, UA <1 /HPF [facility] Squam Epithel, UA <1 /HPF [facility] Specimen Source [facility] Specimen Urine Narrative Performed At Community Health Worker ID - [auto] [facility] Community Health Worker ID - tech [facility] Performing Organization Address City/[facility] Ph one Number [place] [phone] [place], [place] [address] [facility] * Strep pneumoniae antigen (02/28/2020 6:05 PM CDT) Strep pneumoniae Antigen Presumptive negative for Presumptive negative for [facility] pneumococcal meningitis - see pneumococcal pneumonia - [facility] comment see comment, Presumptive negative for pneumococcal meningitis - see comment Specimen Urine Narrative Performed At Presumptive negative for pneumococcal m eningitis. Infection due to S. pneumoniae [facility] cannot be ruled out since the antigen present in the sample may be below the [facility] detection limit of the test. Performing Organization Address City/State/[facility] one Number [address] [facility] * Legionella antigen, urine (02/28/2020 6:05 PM CDT) Legionella Urine Antigen Negative - see commentComment: [facility] Negative for L. pneumophila [facility] serogroup 1 antigen, suggesting no recent or current infection with this serogroup. Legionellosis cannot be ruled out since other serogroups and species may cause disease. Specimen Urine Performing Organization Address [facility] one Number [address] [facility] * Creatine Kinase (CK) (02/28/2020 4:03 PM CDT) Total CK 257 (H) 29 - 200 U/L [facility] Specimen Blood Narrative Performed At Community Health Worker ID - BS [facility] Performing Organization Address [facility] one Number [address] [facility] * XR chest 1 view portable [...] Date/Time: 0 10:38:15 Reading Location: ISIAH Zimmerman [facility] Reading Room Procedure Note Interface, External Ris [...] Report Verified Date/Time: 02/28/2020 10:38:15 Reading Location: [facility] Radiology Reading Room Performing Organization Address [facility] Ph one Number GE RIS * Ammonia (02/28/2020 9:37 AM CDT) Ammonia 34Comment: Specimen slightly 18 - 72 mol/L [facility] hemolyzed [facility] Specimen Blood Narrative Performed At Community Health Worker ID - AAHAMID [facility] Performing Organization Address City/[facility] Ph one Number [address] [facility] * Blood Culture - Routine (Right Venipuncture) (02/28/2020 9:36 AM CDT) Only the most recent of 2 results within the time period is included. Result No growth in 5 days [facility] Specimen Blood Performing Organization Address [facility] one Number [address] [facility] * SARS-CoV2/RT-PCR ([facility]) (02/28/2020 9:18 AM CDT) SARS-COV2/RT-PCR Not Detected Not Detected, Negative [facility] SARS-COV-2 PERFORMING LAB [facility] Specimen Other Narrative Performed At Negative results do not preclude SARS-C oV-2 infection and should not be used as [facility] the sole basis for patient management decisions. Nega tive results must be [facility] combined with clinical observations, pa tient history, [...] the Act. Fact Sheet for Healthcare Providers: https://www.Trendzo/Documents/Xpert%20Xpress%20SARS%20CoV-2/Fact%20Sheets/30 2-3802%81AOCD-HNM-8%20HEALTHCARE%20PROV IDERS%20FACT%20SHEET.pdf Fact Sheet for Healthcare Patients: https://www.Trendzo/Documents/Xpert%20Xpress%20SARS%20CoV-2/Fact%20Sheets/30 2-3801%86WUBF-BRM-2%20PATIENT%20FACT%20 SHEET.pdf Performing Laboratory: [address] [place] [address] Performing Organization Address City/State/Zipcode Ph one Number [place] [address] [facility] * Respiratory Panel [facility] (02/28/2020 9:18 AM CDT) Human Metapneumovirus Not detected Not detected, Equivocal [facility] Rhinovirus Not detected Not detected, Equivocal [facility] Influenza A Not detected Not detected, Equivocal [facility] INFLUENZA A (NO SUBTYPE) [facility] Influenza A subtype H1 [facility] Influenza A Subtype H3 [facility] Influenza A Subtype [facility] H1-2009 [facility] Influenza B Not detected Not detected, Equivocal [facility] Respiratory Syncytial Not detected Not detected, Equivocal [facility] Virus [facility] Parainfluenza Virus 1 Not detected Not detected, Equivocal [facility] Parainfluenza Virus 2 Not detected Not detected, Equivocal [facility] Parainfluenza virus 3 Not detected Not detected, Equivocal [facility] Parainfluenza Virus 4 Not detected Not detected, Equivocal [facility] Adenovirus Not detected Not detected, Equivocal [facility] Coronavirus 229E Not detected Not detected, Equivocal [facility] Coronavirus HKU1 Not detected Not detected, Equivocal [facility] Coronavirus NL63 Not detected Not detected, Equivocal [facility] Coronavirus OC43 Not detected Not detected, Equivocal [facility] Bordetella Pertussis Not detected Not detected, Equivocal [facility] Chlamydophila Pneumoniae Not detected Not detected, Equivoc al [facility] Mycoplasma Pneumoniae Not detected Not detected, Equivocal [facility] Specimen Nasopharyngeal Narrative Performed At Other viruses and bacteria not targeted by this PCR p allen cannot be excluded; [facility] therefore clinical correlation and follow up of serol ogy, culture results, and [facility] other molecular studies is required. Th e results are not intended to be used as the sole means for clinical diagnosis o r patient management decisions. This sample was tested at the [facility] using the Neptune.ioArray Respiratory Panel. It is FDA cleared and has been verified and approved by the [facility] for clinical use on nasopharyngeal swab specimens. The performance of the FilmArray RP has not been established in individuals who received influenza vaccine.Recent a dministration of a nasal influenza vaccine may cause false positive result s for Influenza A and/or Influenza B. Performing Organization Address [facility] Ph one [address] [facility] * Rapid Influenza A&B Screen (02/28/2020 9:18 AM CDT) Rapid Influenza A Antigen Negative Negative, Inconclusi ve [facility] Rapid influenza B Antigen Negative Negative, Inconclusi ve [facility] Specimen Nasal Performing Organization Address [facility] one [address] 0 [phone] [place] [address] * Cortisol (02/28/2020 9:01 AM CDT) Cortisol, Total 6.9 3.7 - 19.4 ug/dL [facility] Specimen Blood Narrative Performed At Community Health Worker ID - [email or web address] [facility] Performing Organization Address [facility] one [address] 0 [phone] [place] [address] * TSH/Free T4 If Indicated (02/28/2020 9:01 AM CDT) TSH 0.364 0.350 - 4.940 uIU/mL [facility] Specimen Blood Narrative Performed At Community Health Worker ID - LA [facility] Performing Organization Address [facility] one [address] [facility] * Troponin I (02/28/2020 9:01 AM CDT) Troponin I <0.01 0.00 - 0.03 ng/mL [facility] Specimen Blood Narrative Performed At Troponin I (TnI) levels must be interpreted in the co ntext of the presenting [facility] symptoms and the clinical findings. Elevated TnI leve ls indicate myocardial [facility] damage, but are not specific for ischem ic heart disease. Elevated TnI levels are seen in patients with other cardiac con ditions (including myocarditis and congestive heart failure), and slight T nI elevations occur in patients with other conditions, including sepsis, kathie al failure, acidosis, acute neurological disease, and persistent tachyarrhythmia . Community Health Worker ID - LA Performing Organization Address [facility] one [place] [address] 0 [phone] [place] [address] * Vitamin B12 and Folate (02/28/2020 8:53 AM CDT) Vitamin B12 382 213 - 816 pg/mL [facility] Folate 4.10 (L) >=7.00 ng/mL [facility] Specimen Blood Narrative Performed At Community Health Worker ID - [facility] Performing Organization Address [facility] one [place] [address] 0 [phone] [place] [address] * Iron, TIBC, % sat. (without ferritin) (02/28/2020 8:53 AM CDT) Iron 16.0 (L) 40.0 - 160.0 ug/dL [facility] TIBC 404 250 - 450 ug/dL [facility] Iron % Saturation 4 (L) 20 - 55 % [facility] Specimen Blood Narrative Performed At Community Health Worker ID [facility] Performing Organization Address [facility] one [place] [address] 0 [phone] [place] [address] * CBC with platelet count + automated diff (02/28/2020 8:53 AM CDT) WBC 13.0 (H) 3.5 - 10.5 K/L [facility] RBC 3.92 (L) 3.93 - 5.22 M/L [facility] Hemoglobin 8.4 (L) 11.2 - 15.7 GM/DL [facility] Hematocrit 30.0 (L) 34.1 - 44.9 % [facility] MCV 76.5 (L) 79.4 - 94.8 fL [facility] MCH 21.4 (L) 25.6 - 32.2 pg [facility] MCHC 28.0 (L) 32.2 - 35.5 GM/DL [facility] RDW 22.3 (H) 11.7 - 14.4 % [facility] Platelets 346 150 - 450 K/CU MM [facility] MPV 8.3 (L) 9.4 - 12.3 fL [facility] nRBC 0 0 - 0 /100 WBC [facility] % Neutros 79 % [facility] % Lymphs 16 % [facility] % Monos 4 % [facility] % Eos 0 % [facility] % Baso 0 % [facility] # Neutros 10.25 (H) 1.56 - 6.13 K/L [facility] # Lymphs 2.04 1.18 - 3.74 K/L [facility] # Monos 0.54 (H) 0.24 - 0.36 K/L [facility] # Eos 0.03 (L) 0.04 - 0.36 K/L [facility] # Baso 0.03 0.01 - 0.08 K/L [facility] Immature 1 0 - 1 % [facility] Granulocytes-Relative [facility] Specimen Blood Performing Organization Address City/[facility] Ph one Number [address] 0 [phone] [place] [address] * Lactic acid, venous (02/28/2020 8:53 AM CDT) Lactate, Venous 2.15 0.50 - 2.20 mmol/L [facility] Specimen Blood Narrative Performed At Community Health Worker ID - LA [facility] Performing Organization Address City/[facility] Ph one Number [address] 0 [phone] [address] * Reticulocyte count (02/28/2020 8:53 AM CDT) % Retic 2.2 (H) 0.5 - 1.7 % [facility] Specimen Blood Narrative Performed At Community Health Worker ID - [id number] [facility] Performing Organization Address City/[facility] Ph one Number [address] 0 [phone] [place] [address] * MRSA screen (02/28/2020 8:53 AM CDT) Result No MRSA isolated [facility] Specimen Nasal Performing Organization Address City/[facility] Ph one Number [address] 0 [phone] [place] [address] * B-type Natriuretic Factor (BNP) (02/28/2020 8:53 AM CDT) BNP 62 0 - 100 pg/mL [facility] Specimen Blood Narrative Performed At Community Health Worker ID - LA [facility] Performing Organization Address City/[facility] Ph one Number [address] [facility] * Hemoglobin A1c (02/28/2020 8:53 AM CDT) Hemoglobin A1C 7.8 (H) 4.3 - 6.1 % [facility] Specimen Blood Performing Organization Address [facility] one Number [address] [facility] * Blood gas, venous (02/28/2020 8:53 AM CDT) pH, Oren 7.33 7.32 - 7.42 [facility] pCO2, Oren 63 (H) 41 - 51 mmHg [facility] pO2, Oren 43 (H) 25 - 40 mmHg [facility] O2 Sat, Oren 74.9 (H) 40.0 - 70.0 % [facility] HCO3, Oren 33 (H) 21 - 29 mmol/L [facility] Base Excess, Oren 5.4 (H) -2.0 - 3.0 mmol/L [facility] Patient Temperature 36.5 C [facility] FIO2 21.0 % [facility] Specimen Blood Performing Organization Address [facility] one [place] [address] [facility] * Ferritin (02/28/2020 8:53 AM CDT) Ferritin 6.73 5.00 - 275.00 ng/mL [facility] Specimen Blood Narrative Performed At Community Health Worker ID - SHAKILA [facility] Performing Organization Address City/[facility] one Number [place] [address] [facility] * Procalcitonin (02/28/2020 8:52 AM CDT) Procalcitonin <0.05 <0.05 ng/mL [facility] Specimen Blood Narrative Performed At SEPSIS RISK (ng/mL) [facility] Low:0.05-0.50 [facility] Intermediate: 0.51-2.00 High: >=2.01 Performing Organization Address [facility] one Number [address] [facility] * aPTT (02/28/2020 8:52 AM CDT) PTT 30.6 22.5 - 36.0 seconds [facility] Specimen Blood Performing Organization Address [facility] one Number [address] [facility] * Prothrombin time/INR (02/28/2020 8:52 AM CDT) Protime 14.0 11.9 - 14.2 seconds [facility] INR 1.1 <=5.9 [facility] Specimen Blood Narrative Performed At Effective 03/28/2019: PT Reference Range Change [facility] New: 11.9-14.2Previous: 11.7-14.7 [facility] NTER RECOMMENDED COUMADIN/WARFARIN INR THERA PY RANGES STANDARD DOSE: 2.0-3.0Includes: PRO PHYLAXIS for venous thrombosis, systemic embolization; TREATMENT for venous thro mbosis and/or pulmonary embolus. HIGH RISK: Target INR is 2.5-3.5 for pa tients wiht mechanical heart valves. Performing Organization Address [facility] one Number [address] [facility] * Fibrinogen (02/28/2020 8:52 AM CDT) Fibrinogen 350 225 - 434 mg/dl [facility] Specimen Blood Performing Organization Address [facility] one Number [address] [place] [address] [facility] * Magnesium (02/28/2020 8:52 AM CDT) Magnesium 1.6 1.6 - 2.6 mg/dL [facility] Specimen Blood Narrative Performed At Community Health Worker ID - SHAKILA [facility] Performing Organization Address City/State/Zipcode Ph one Number [address] [facility] * Comprehensive metabolic panel (02/28/2020 8:52 AM CDT) Protein, Total 6.2 6.0 - 8.3 gm/dL [facility] Albumin 3.3 (L) 3.5 - 5.0 g/dL [facility] Alkaline Phosphatase 117 40 - 150 U/L [facility] Total Bilirubin 0.3 0.2 - 1.2 mg/dL [facility] Sodium 137 136 - 145 meq/L [facility] Potassium 5.4 (H) 3.5 - 5.1 meq/L [facility] Chloride 101 98 - 107 meq/L [facility] CO2 31 (H) 22 - 29 meq/L [facility] BUN 18 7 - 21 mg/dL [facility] Creatinine 0.78 0.57 - 1.25 mg/dL [facility] Glucose 135 (H) 70 - 105 mg/dL [facility] [facility] Calcium 8.6 8.4 - 10.2 mg/dL [facility] AST 13 5 - 34 U/L [facility] ALT 7 6 - 55 U/L [facility] EGFR 76Comment: ESTIMATED GFR IS mL/min/1.73 sq m [facility] NOT ACCURATE CREATININE [facility] CLEARANCE IN PREDICTING GLOMERULAR FILTRATION RATE. ESTIMATED GFR IS NOT APPLICABLE FOR DIALYSIS PATIENTS. Specimen Blood Narrative Performed At Community Health Worker ID - SHAKILA [facility] Performing Organization Address City/State/Zipcode Ph one Number [facility] [address] [place], [place] [address] [facility] after 06/13/2019 Insurance Payer Benefit Subscriber ID Type Phone Address Plan / Group [facility] [place] MEDICARE MGD CARE MEDICARE HMO MEDICAID - MEDICAID MGD [facility] [place] Medica id CARE COMM STAR Contracted PLAN CDC REVIEW CDC REVIEW xxxxxxxx [address] [place] [place] [address] ([place]) [place] [address] Advance Directives For more information, please contact: [facility] [address] [place] [address] Date Inactivated Comments Code Status Date Activated 03/01/2020 5:51 PM Full Code 02/28/2020 8:19 AM This code status was determined by: Patient
--- OUTSIDE RECORDS SUMMARY | 2020-06-13 17:36 | XMS REPORT | Clinical Summary ---
Author Author [facility] Organization [place] [facility] Address Unknown Phone Unavailable Care Team Providers Care Sales Product Specialist Name Role Phone Daren Dupree DO PCP [...] Phone Address Plan / Dates Group O [facility] MEDICARE [facility] DUAL xxxxxxxxx [id number] COMPLETE resent [facility] Advance Directives For more information, please contact: [phone] Patient Primary Care Pediatrician Explanation Type Date Recorded Advance Directives, 11/12/2018 6:46 PM Living Will and Medical Power of Hospital Security Officer
--- OUTSIDE RECORDS SUMMARY | 2020-06-13 17:40 | XMS REPORT | Continuity of Care Document ---
Author Author [facility] t Organization [facility] Address [address] [place] [address] Phone Unavailable Care Team Providers Care Education Managers Name Role Phone DO CORRIE DEVRIES DO PCP Sun ALBERT Attphys Unavailable JHOAN VANG Attphys Unavailable Taj TRIANA, Jhoan Collado Attphys [phone] Ann-Marie TRIANA, Sebastian Wilder Attphys [phone] Jaime TRIANA, Anne-Marie Attphys DO SCHROEDER [...] Tin Ruiz Admphys Antonio Ash Jr Admphys CocoAdrian tolliver Admphys LOLA BOUCHER Admphys Unavailable Jose Marylu Admphys Payers Payer Name Policy Type Policy Number Effective Date Expiration Date S ruperto [facility] [id number] 2019 00:00:00 [facility] [employer] [facility] [id number] 2019 00:00 :00 [facility] - MEDICARE MGD CAREUNITED MEDICARE HMOxxxxxxxxx xxxxxxxxx [facility] MEDICAID - MEDICAID MGD CAREMCD COMM STAR PLANxxxxxxxxxMe dicaid Contracted xxxxxxxxx [facility] CDC REVIEWCDC REVIEWxxxxxxxx[place] [address] x xxxxxxx [facility] Problems Condition Name Condition Details Condition Category Status Onset Date Resolution Date Last Treatment Date Treating Clinician Comments Source Respiratory insufficiency Respiratory insufficiency Disease Ac tive 2020-02-28 00:00:00 [facility] ACS ACS Active 02/27/2019 [facility] Diagnosis Active 2019-02-27 00:00:00 2019-03-07 22:17:00 M emorihugo Shea COPD COPD Active 02/27/2019 [facility] Diagnosis Active 2019-02-27 00:00:00 2019-02-27 17:46:00 Sandra Shea WEAKNESS WEAK NESS Active 02/02/2019 [facility] Diagnosis Active 2019-02-02 00:00:00 2019-02-02 16:52:00 Sandra Shea ALTERED MENTAL STATUS, NSTEMI ALTERED MENTAL STATUS, NSTEMI Active 02/02/2019 [facility] Active 2019-02-02 00:00: 00 2019-02-06 15:03:00 [facility] SO[facility] SOB Active 08/29/2018 [facility] Active 2018-08-29 00:00:00 2018-08-29 14:37:[address] [facility] ACUTE UTI, SEPSIS ACUT E UTI, SEPSIS Active 08/29/2018 [facility] Active 2018-08-29 00:00:00 2019-01-27 15:06:00 [facility] GALUCOMA GALU COMA Active 07/13/2018 [facility] Diagnosis Active 2018-07-13 00:00:00 2018-07-17 07:47:00 [facility] NEAR SYNCOPE, CHEST PAIN NEAR SYNCOPE, CHEST PAIN Active 06/11/2018 [facility] Diagnosis Active 2018-06-11 00:00:00 2018-06-12 10:14:00 [facility] HYPOGLYCEMIA HYPO GLYCEMIA Active 11/16/2017 [facility] Diagnosis Active 2017-11-16 00:00:00 2017-11-16 19:28:00 [facility] HYPOGLYCEMIA ASSOCIATED WITH DIABETES HYPOGLYCEMIA ASSOCIATED WITH DIABETES Active 11/16/2017 [facility] Ac tive 2017-11-16 00:00:00 2019-01-12 12:25:00 [facility] D47.3 - ESSENTIAL (HEMORRHAGIC) THROMB D D47.3 - ESSENTIAL (HEMORRHAGIC) THROMB D Active 12/06/2016 [facility] [place] Diagnosis Active 2016-12-06 00:01:00 2016-12-09 10:02:00 [facility] Shabbir D72.829 - ELEVATED WHITE BLOOD CELL COUN D72.829 - ELEVATED WHITE BLOOD CELL COUN Active 10/11/2016 [facility] [place] Diagnosis Active 2016-10-11 00:01:00 2016-11-22 16:55:00 [facility] Shabbir M54.5 - LOW BACK PAIN M54. 5 - LOW BACK PAIN Active 12/22/2015 [facility] [place] Diagnosis Active 2015-12-22 00:01:00 2015-12-22 11:33:00 [facility] Acute renal failure Acute renal failure Problem Active [facility] Azotemia Azotemia Problem Active [facility] Confusion Confusion Problem Active [facility] Fall Fall Problem [facility] Hyperkalemia Hyperkalemia Problem Active [facility] Strain of neck muscle Neck strain Problem Active [facility] Contusion of shoulder Shoulder contusion Problem Active [facility] Dehydration Dehydration Problem Active [facility] Hypoglycemia Hypoglycemia Problem Active [facility] Hypotension Hypotension Problem Active [facility] Acute exacerbation of chronic obstructive pulmonary disease COPD exacerbation Problem Active [facility] Chest pain Chest pain Problem Active [facility] Hyperglycemia Hyperglycemia Problem Active [facility] Renal insufficiency Renal insufficiency Problem Active [facility] Sprain of wrist Problem Active [facility] Hypertensive chronic kidney disease with stage 1 through stage 4 chronic kidney disease, or unspecified chronic kidney disease Hypertensive chronic kidney disease with stage 1 through stage 4 chronic kidney disease, or unspecified chronic kidney disease 02/03/2019 [facility] Problem 2019-02-03 12:52:47 [place] Shea Type 2 diabetes mellitus with diabetic chronic kidney disease Type 2 diabetes mellitus with diabetic chronic kidney disease 02/03/2019 [facility] Problem 2019-02-03 12:52:47 Sandra Shea Chronic kidney disease, stage 2 (mild) Chronic kidney disease, stage 2 (mild) 02/03/2019 [facility] Problem 2019-02-03 12:52:47 Sandra Shea Chronic obstructive pulmonary disease, unspecified Chronic obstructive pulmonary disease, unspecified 02/03/2019 [facility] Problem 2019-02-03 12:52:47 [place] Shea Old myocardial infarction Old myocardial infarction 02/03/2019 [facility] Problem 2019-02-03 12:52:47 Sandra Shea Nicotine dependence, cigarettes, uncomplicated Nicotine dependence, cigarettes, uncomplicated 02/03/2019 [facility] Problem 2019-02-03 12:52:47 [place] Shea Hyperlipidemia, unspecified Hy perlipidemia, unspecified 02/03/2019 [facility] Problem 2019-02-03 12:52:47 Sandra Shea Anxiety disorder, unspecified Anxiety disorder, unspecified 02/03/2019 [facility] Problem 2019-02-03 12:52:47 [facility] Obesity, unspecified Obes ity, unspecified 02/03/2019 [facility] Problem 12:52:47 [facility] alf (current) use of insulin buttermaker (current) use of insulin 02/03/2019 [facility] Problem 2019-02-03 12:52:47 [facility] buttermaker (current) use of aspirin buttermaker (current) use of aspirin 02/03/2019 [facility] Problem 2019-02-03 12:52:47 [facility] Body mass index (BMI) 36.0-36.9, adult Body mass index (BMI) 36.0-36.9, adult 02/03/2019 [facility] Problem 2019-02-03 12:52:47 [facility] Chest pain, unspecified Ches t pain, unspecified 12/30/2018 [facility] 2018-12-30 14:18:38 [facility] Type 2 diabetes mellitus with hyperglycemia Type 2 diabetes mellitus with hyperglycemia 12/30/2018 [facility] 2018-12-30 14:18:38 [facility] Abnormal findings on diagnostic imaging of heart and c oronary circulation Abnormal findings on diagnostic imaging of heart and coronary circulation 12/30/2018 [facility] 2018-12-30 1 4:18:38 [facility] Panic disorder [episodic paroxysmal anxiety] without a goraphobia Panic disorder [episodic paroxysmal anxiety] without agoraphobia 12/30/2018 [facility] 2018-12-30 14:18:38 [facility] Type 2 diabetes mellitus with unspecifie d diabetic retinopathy without macular edema Type 2 diabetes mellitus with unspecified diabetic retinopathy without macular edema 12/30/2018 [facility] 2018-12-30 14:18:38 [facility] 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 Other detention (current) drug therapy 12/30/2018 [facility] 2018-12-30 14:18:38 [facility] Type 2 diabetes mellitus with diabetic neuropathy, uns pecified Type 2 diabetes mellitus with diabetic neuropathy, unspecified 12/30/2018 [facility] 2018-12-30 14:18:38 [facility] Tobacco abuse counseling 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 12/30/2018 [facility] 2018-12-30 14:18:38 [facility] Body mass index (BMI) 38.0-38.9, adult Body mass index (BMI) 38.0-38.9, adult 12/30/2018 [facility] 2018-12-30 14:18:38 [facility] Unspecified asthma, uncomplicated Unspecified asthma, uncomplicated 12/30/2018 [facility] 2018-12-30 14:18:38 [facility] Cerebral ischemia Cere bral ischemia 12/30/2018 [facility] 2018-12-30 14:18:38 Az lily Shea Abnormal brain scan Abno rmal brain scan 12/30/2018 [facility] 2018-12-30 14:18:38 Az lily Shea Personal history of other diseases of the circulatory system Personal history of other diseases of the circulatory system 12/30/2018 [facility] 2018-12-30 14:18:38 Az lily Shea Allergy status to sulfonamides status Allergy status to sulfonamides status 12/30/2018 [facility] 2018-12-30 14:18:38 [facility] Allergy status to analgesic agent status Allergy status to analgesic agent status 12/30/2018 [facility] 2018-12-30 14:18:38 [facility] Personal history of urinary (tract) infections Personal history of urinary (tract) infections 12/30/2018 [facility] 2018-12-30 14:18:38 [facility] 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 12/30/2018 [facility] 2018-12-30 14:18:38 [facility] Family history of ischemic heart disease and other diseases of the circulatory system Family history o f ischemic heart disease and other diseases of the circulatory system 12/30/2018 [facility] 2018-12-30 14:18:38 [facility] buttermaker (current) use of antithrombotics/antiplatele ts alf (current) use of antithrombotics/antiplatelets 12/30/2018 [facility] 2018-12-30 14:18:38 Az lily Shea Type 2 diabetes mellitus with diabetic polyneuropathy Type 2 diabetes mellitus with diabetic polyneuropathy 02/23/2018 [facility] 2018-02-23 18:49:23 [facility] Major depressive disorder, single episode, unspecified Major depressive disorder, single episode, unspecified 02/23/2018 [facility] 2018-02-23 18:49:23 [facility] Gastro-esophageal reflux disease without esophagitis Gastro-esophageal reflux disease without esophagitis 02/23/2018 [facility] Problem 2018-02-23 18:49:23 Sandra Shabbir Insomnia, unspecified Inso mnia, unspecified 02/23/2018 [facility] Problem 2018-02-23 18:49:23 Alverto Shea Hypomagnesemia Hypo magnesemia 02/23/2018 [facility] Problem 2018-02-23 18:49:23 Sandra Shea Type II diabetes mellitus uncontrolled (finding) Type II diabetes mellitus uncontrolled (finding) Active Problem 03/02/2019 [facility] Problem Active 2019-03-02 23:32:3 7 [facility] Shabbir TYPE 2 DIABETES MELLITUS WITH HYPOGLYCEM TYPE 2 DIABETES MELLITUS WITH HYPOGLYCEM Active [facility] Active 2019-01-12 12:25:00 Sandra Shea SYNCOPE AND COLLAPSE SYNC OPE AND COLLAPSE Active [facility] Diagnosis Active 2018-06-12 10:14:00 Az lily Shea CHEST PAIN, UNSPECIFIED CHES T PAIN, UNSPECIFIED Active [facility] Diagnosis Active 2018-06-12 10:14:00 Sandra Shea URINARY TRACT INFECTION, SITE NOT SPECIF URINARY TRACT INFECTION, SITE NOT SPECIF Active [facility] Diagnosis Active 2019-01-27 15:06:00 [facility] Shabbir SEPSIS, UNSPECIFIED ORGANISM S EPSIS, UNSPECIFIED ORGANISM Active [facility] Diagnosis Active 2019-01-27 15:06 :00 Sandra Shea ALTERED MENTAL STATUS, UNSPECIFIED ALTERED MENTAL STATUS, UNSPECIFIED Active [facility] Diagnosis Active 2019-02-06 15:03:00 Sandra Shea NON-ST ELEVATION (NSTEMI) MYOCARDIAL INF NON-ST ELEVATION (NSTEMI) MYOCARDIAL INF Active [facility] Diagnosis Active 2019-02-06 15:03:00 Sandra Shea Primary open-angle glaucoma, right eye, stage unspecif ied Primary open-angle glaucoma, right eye, stage unspecified 09/30/2018 02/03/2019 [facility] Problem 2018-09-30 04:56:43 2019-01 12:52:47 2019-02-03 12:52:47 Sandra Shea Dizziness and giddiness Dizz iness and giddiness 07/07/2018 12/30/2018 [facility] Problem 2018-07-07 03:53:45 2018 14:18:38 2018-12-30 14:18:38 Sandra Shea Type 2 diabetes mellitus with hypoglycemia without com a Type 2 diabetes mellitus with hypoglycemia without coma 11/23/2017 02/23/2018 [facility] Problem 2017-11-23 04:48:56 2018-02-23 18:49:23 2018-01 18:49:23 [facility] Allergies, Adverse Reactions, Alerts Allergy Name Allergy Type Status Severity Reaction(s) Onset Date Inacti ve Date Treating Clinician Comments Source Penicillin Allergy to substance Active 2020-02-28 00:00:00 [facility] Chocolate Flavor Propensity to adverse reactions Active 2020-02-28 00:00:00 [facility] Egg Propensity to adverse reactions Active 2020-02-28 00 :00:00 [facility] Iodine And Iodide Containing Products Propensity to adverse reactio ns Active Anaphylaxis 2020-02-28 00:00:00 [facility] Kiwi (Actinidia Chinensis) Propensity to adverse reactions Active 2020-02-28 00:00:00 [facility] Cameron Propensity to adverse reactions Active 2020-02-28 00 :00:00 [facility] Milk Containing Products Propensity to adverse reactions Active 2020-02-28 00:00:00 [facility] Tunica Juice Propensity to adverse reactions Active 00:00:00 [facility] Passion Fruit Propensity to adverse reactions Active 17-02-30 [facility] Peanut Propensity to adverse reactions Active Anaphyla xis 2020-02-28 00:00:00 [facility] Wheat Containing Prod Propensity to adverse reactions Active 2020-02-28 00:00:00 [facility] STEROIDS Propensity to adverse reactions Active 2019-10-10 00:00:00 [facility] Aspirin Propensity to adverse reactions to drug Active Other (See Comments) 2018-11-12 00:00:00 Irritates my asthma. Kenia Robles Iodine Propensity to adverse reactions to drug Active Anaphylaxis 2018-11-12 00:00:00 Ramesh mosquera Ibuprofen Propensity to adverse reactions to drug Active Other (See Comments) 2018-11-12 00:00:00 "Irritates my asthma and meg ts my stomach." Ramesh Robles Ibuprofen Allergy to substance Active 2018-10-06 00:00:00 [facility] Iodinated Contrast Media Allergy to substance Active Severe a naphylactic shock 2018-10-05 00:00:00 [facility] NSAIDS (Non-Steroidal Anti-Inflamma Allergy to substance Active 2018-06-05 00:00:00 [facility] Sulfa (Sulfonamide Antibiotics) Allergy to substance Active 2018-06-05 00:00:00 [facility] Aspirin Allergy to substance Active 2018-06-05 00:00:00 [facility] Milk Containing Products DA Active U 2018-01-29 00:00:00 [facility] Iodinated Contrast- Oral and IV Dye Allergy to Substance Active S evere 2017-07-15 00:00:00 [facility] NSAIDS (Non-Steroidal Anti-Inflamma Allergy to Substance Active M ild 2017-07-15 00:00:00 [facility] TOPICAL , IV IODINE Allergy to substance Active Severe ANAPHA LACTIC SHOCK 2015-09-08 00:00:00 [facility] soap DA Active U 2014-03-26 00:00:00 [facility] NSAIDS (Non-Steroidal Anti-Inflamma DA Active U 2014-03-01 7 00:00:00 [facility] iodine DA Active U 2014-03-26 00:00:00 [facility] aspirin DA Active U 2014-03-26 00:00:00 [facility] ibuprofen DA Active U 2014-03-26 00:00:00 [facility] povidone-iodine DA Active U 2014-03-26 00:00:00 [facility] shellfish derived DA Active U 2014-03-26 00:00:00 [facility] Aspirin Propensity to adverse reactions Active Other (See Comme nts) Intensifies asthma [facility] sulfa drugs sulfa drugs Active [facility] predniSONE predniSONE Active Me morial [place] aspirin aspirin Active [facility] iodine iodine Active [facility] NSAIDs NSAIDs Active [facility] Family History Family Member Diagnosis Comments Start Date Stop Date Source Natural father Heart disease [facility] Natural mother Arthritis [facility] Natural mother Depression [facility] Social History Social Habit Start Date Stop Date Quantity Comments Source History of tobacco use Cigarette Smoker [place] History SDOH Alcohol Std Drinks [place] History SDOH Alcohol Binge [place] Sex Assigned At [facility] Cigarettes smoked current (pack per day) - Reported 00:00:00 2018-11-12 00:00:00 [place] Alcohol intake 2018-11-12 00:00:00 2018-11-12 00:00:00 Current non-drinker of alcohol (finding) [place] [facility] History SDOH Alcohol Frequency 2018-11-12 00:00:00 2018-11-12 00:00:0 0 1 [place] [facility] Social History 2016-12-10 05:59:00 2016-12-10 05:59:00 [facility] Smoking Status Start Date Stop Date Source Current every day smoker 2018-11-12 00:00:00 Sh[place]ga [employer] [facility] Medications Ordered Medication Name Filled Medication Name Start Date Stop Da te Current Medication? Ordering Clinician Indication Dosage Frequency Signature (SIG) Comments Components Source AZITHROmycin (ZITHROMAX) 250 MG tablet 3 00:00:00 2020-03-06 23:59:00 No Take by mouth as directed.. [facility] polyethylene glycol (GLYCOLAX) 17 gram packet 20 19-03-03 00:00:00 2020-03-05 23:59:00 No 17g QD Take 17 g by mouth daily for 3 days. [facility] ferrous sulfate 325 (65 FE) MG tablet 2020-03-01 00:00 :00 2021-03-01 23:59:00 No 325mg Q.5D Take 1 tablet (325 mg total) b y mouth 2 (two) times daily. [facility] amoxicillin-clavulanate (AUGMENTIN) 500-125 mg per tablet 2020-03-01 00:00:00 2020-03-06 23:59:00 No 1{tbl} Q.[id number] Take 1 tablet by mouth 3 (three) times daily for 5 days. [facility] ammonium lactate (LAC-HYDRIN) 12 % lotion 2020-02-29 21:39:42 Yes Q.5D Apply topically 2 (two) times daily. [facility] montelukast (SINGULAIR) 10 mg tablet 2020-02-29 21:39:41 Ye s 10mg QD Take 10 mg by mouth daily. [facility] REXULTI 3 mg Tab tablet 2020-02-22 00:00:00 Yes 3mg QD Take 3 mg by mouth daily. [facility] busPIRone (BUSPAR) 10 MG tablet 2020-02-22 00:00:00 Yes 2{tbl} Q.[id number] Take 2 tablets by mouth 3 (three) times daily. [facility] mirtazapine (REMERON) 30 MG tablet 2020-02-22 00:00:00 Yes 30mg QD Take 30 mg by mouth nightly. [facility] traZODone (DESYREL) 300 MG tablet 2020-02-22 00:00:00 Yes 1{tbl} QD Take 1 tablet by mouth nightly. [facility] HUMALOG KWIKPEN INSULIN 100 unit/mL In 2020-02-19 00:00:00 Yes 8U Inject 8 Units subcutaneously 3 (three) times daily with meals INJECT 8 UNITS SQ THREE TIMES DAILY BEFORE MEALS + SLIDING SCALE USING 1 UNIT FOR EVERY 30 POINTS ABOVE GLUCOSE 150 MDD 50 UNITS. [facility] divalproex (DEPAKOTE) 500 MG 24 hr tablet 2020-02-18 00:00:00 Yes 1{tbl} QD Take 1 tablet by mouth daily. [facility] clonazePAM (KLONOPIN) 1 MG tablet 2020-02-15 00:00:00 Yes 1{tbl} Take 1 tablet by mouth 2 (two) times daily as needed. [facility] LANTUS SOLOSTAR U-100 INSULIN 100 unit/mL (3 mL) In 2020-02-15 00:00:00 Yes 40U QD Inject 40 Units subcutaneously nightly. [facility] metFORMIN (GLUCOPHAGE-XR) 750 MG 24 hr tablet 2020-02-12 00:00:0 0 Yes 2{tbl} Take 2 tablets by mouth daily with dinner. [facility] kihvzddjiv-zzkyqvoybfwej-yzjwfuky (FIORICET, ESGIC) 50-325-4 0 mg per tablet 2020-01-24 00:00:00 Yes 1{tbl} Take 1 tablet by mouth every 6 (six) hours as needed for Headaches. [facility] gabapentin (NEURONTIN) 400 MG capsule 2020-01-24 00:00:00 Yes 400mg Q.[id number] Take 400 mg by mouth 3 (three) times daily. [facility] TRINTELLIX 20 mg Tab 2020-01-22 00:00:00 Yes 1{tbl} QD Take 1 tablet by mouth daily. [facility] BYDUREON 2 mg/0.85 mL AtIn auto-injector 2020-01-17 00:00:00 Yes 2mg Q7D Inject 2 mg subcutaneously once a week. [facility] PROAIR HFA 90 mcg/actuation inhaler 2020-01-16 00:00:00 Yes 1{puff} QD Take 1 puff by mouth daily. [facility] lisinopriL (PRINIVIL,ZESTRIL) 2.5 MG tablet 2020-01-02 00:00:00 Yes 2.5mg QD Take 2.5 mg by mouth daily. [facility] atorvastatin (LIPITOR) 40 MG tablet 2020-01-01 00:00:00 Yes 1{tbl} QD Take 1 tablet by mouth every evening. [facility] clopidogreL (PLAVIX) 75 mg tablet 2020-01-01 00:00:00 Yes 75mg QD Take 75 mg by mouth daily. [facility] omeprazole (PRILOSEC) 40 MG capsule 2020-01-01 00:00:00 Yes 1{capsule} QD Take 1 capsule by mouth daily. [facility] pregabalin (LYRICA) 50 MG capsule 2019-11-26 00:00:00 Yes 1{capsule} Take 1 capsule by mouth every 8 (eight) hours. [facility] Famotidine (Pepcid) 20 Mg TABLET Famotidine (Pepcid) 20 Mg T ABLET 2019-06-19 15:22:00 Yes 20 Twice A Day [facility] Hydroxyzine Hcl Hydroxyzine Hcl 2019-06-19 15:22:00 Yes 25 Three Times A Day as needed for Itching [facility] Seroquel 2019-03-01 02:00:00 No Notes: (Mic e as: SEROquel) [facility] Singulair 2019-03-01 02:00:00 No Notes: (Sa me as:Singulair) [facility] Remeron 2019-03-01 02:00:00 No Notes: (Same as:Remeron) [facility] atorvastatin 2019-03-01 02:00:00 No Notes: (Same as: Lipitor) [facility] Plavix 2019-02-28 22:00:00 No Notes: (Same As: Plavix) [facility] Morphine 2019-02-28 18:34:00 No 2 mg, 1 mL, Route: IVP, Drug form: SOLN, ONCE, Dosing Weight 104.545, kg, Start date: 02/28/19 13:34:00 CDT, Stop date: 02/28/19 13:34:[address] [facility] howard Acetaminophen 300 MG / Codeine Phosphate 30 MG Oral Tablet [Tylenol with Codeine #3] 2019-02-28 18:15:00 No Notes: Do not exceed 4gm/day of acetaminophen. (Same as: Tylenol with Codeine # 3) [facility] Omeprazole 2019-02-28 14:00:00 No 40 mg, Route: PO, Drug form: DRC, Daily, Dosing Weight 104.545, kg, Start date: 02/28/19 9:00:00 CDT, Duration: 30 day, Stop date: 03/29/19 9:00:00 CDT [facility] orial Clyman Nicotine 2019-02-28 14:00:00 No Notes: (Same as: Habitrol) "Remove old patch before application of new patch" WASTE: F/P - P Waste Black; E - P Waste Black [facility] metoprolol extended release 2019-02-28 14:00:00 No Notes: (Same as: Toprol XL) May split tab, but do not crush. [facility] Lisinopril 2019-02-28 14:00:00 No Notes: (Same as: Prinivil, Zestril) [facility] insulin detemir 2019-02-28 14:00:00 No 32 unit, Route: SUB-Q, Drug form: SOLN, BID, Dosing Weight 104.545, kg, Start date: 02/28/19 9:00:00 CDT, Duration: 30 day, Stop date: 03/29/19 17:00:00 CDT [facility] gabapentin 2019-02-28 14:00:00 No Notes: (S lise as: Neurontin) [facility] Advair Diskus 100 mcg-50 mcg inhalation powder 2019-02-28 14:00: 00 No 1 puff, Route: INHALATION, Drug Form: PW DR, Dosing Weight 104.545, kg, BID, Start date: 02/28/19 9:00:00 CDT, Duration: 30 day, Stop date: 03/29/19 17:00:00 CDT [facility] Prozac 2019-02-28 14:00:00 No Notes: (Same as: Prozac) [facility] Buspirone 2019-02-28 14:00:00 No Notes: (Sa me As: BuSpar) [facility] Wellbutrin 2019-02-28 14:00:00 No Notes: (S lise As: Wellbutrin) [facility] Protonix 2019-02-28 12:30:00 No Notes: Tablet should not be chewed or crushed. (Same as: Protonix) [facility] NovoLog 2019-02-28 12:30:00 No Route: SUB-Q, Drug form: SOLN, TID- Before Meals, Dosing Weight 104.545, kg, Start date: 02/28/19 7:30:00 CDT, Duration: 30 day, Stop date: 03/29/19 16:30:00 CDT [facility] Humalog 2019-02-28 12:30:00 No Notes: (Same as: Humalog) Roll in palms of hands gently; Do not shake vigorously. WASTE: F/P - Black; E - Municipal Trash Bin Stable for 28 days at room temperature. Expires in days from [facility] 12:00:00 No Notes: SEE RT DOCUMENTATION (Same as: Proventil) [facility] Shabbir insulin glargine 2019-02-28 03:30:00 No Notes: (Same as: Lantus) Do not hold insulin without contacting prescriber WASTE: F/P - Black; E - Municipal Trash Bin "single patient use only" Stable for 28 days at room temperature Expires in days from Date [facility] Pul[facility]ort Respules 2019-02-28 03:07:00 No Notes: (Same As: Pulmicort respule). [facility] Clonazepam 2019-02-28 02:51:00 No Notes: (S lise As: KlonoPIN) [facility] Albuterol 0.833 MG/ML / Ipratropium [place] 0.167 MG/ML Inha lant Solution 2019-02-28 02:51:00 No Notes: (Same as: D uoneb) [facility] Insulin Lispro 2019-02-28 02:51:00 No Notes: (Same as: Humalog) Roll in palms of hands gently; Do not shake vigorously. WASTE: F/P - Black; E - Municipal Trash Bin Stable for 28 days at room temperature. Expires in days from Date [facility] ezequiel Dextrose 50% Syringe 2019-02-28 02:51:00 No 12.5 gm, 25 mL, Route: IVP, Drug Form: INJ, Dosing Weight 104.545, kg, PRN, PRN Blood Glucose Results, Start date: 02/27/19 21:51:00 CDT, Duration: 30 day, Stop date: 03/29/19 21:50:00 CDT [facility] Shabbir Glucagon 2019-02-28 02:51:00 No 1 mg, Route: IM, Drug form: PDR/INJ, PRN, Dosing Weight 104.545, kg, PRN Blood Glucose Results, Start date: 02/27/19 21:51:00 CDT, Duration: 30 day, Stop date: 03/29/19 21:50:00 CDT [facility] Saline Flush 0.9% 2019-02-28 02:00:00 No Notes: (Same as: BD Posiflush) [facility] Lovenox 2019-02-28 01:00:00 No Notes: (Same as: Lovenox) [facility] Saline Flush 0.9% 2019-02-28 00:44:00 No Notes: (Same as: BD Posiflush) [facility] Ondansetron 2019-02-28 00:44:00 No Notes: ( Same as: Zofran) [facility] Acetaminophen 2019-02-28 00:44:00 No Notes: Do not exceed 4 gm/day. (Same as: Tylenol) [facility] Morphine 2019-02-28 00:44:00 No Not es: (Same as:MORPhine Sulfate) [facility] Nitroglycerin 2019-02-28 00:44:00 No Notes: (Same as:Nitroquick, Nitrostat) "Do Not Crush" Sublingual tablet [facility] Morphine 2019-02-27 23:17:00 No 4 mg, Route: IVP, ONCE, Dosing Weight 104, kg, Priority: STAT, Start date: 02/27/19 18:17:00 CDT, Stop date: 02/27/19 18:17:00 CDT [facility] Zofran 2019-02-27 21:01:00 No 4 mg, Route: IVP, Drug form: INJ, ONCE, Dosing Weight 104, kg, Priority: STAT, Start date: 02/27/19 16:01:00 CDT, Stop date: 02/27/19 16:01:00 CDT Espinoza Shea Acetaminophen 325 MG / Hydrocodone Bitartrate 5 MG Oral Tabl et [[place] 5/325] 2019-02-27 21:00:00 No 1 tab, Route: PO, Drug Form: TAB, Dosing Weight 104, kg, ONCE, STAT, Start date: 02/27/19 16:00:00 CDT, Stop date: 02/27/19 16:00:00 CDT [facility] metoprolol 50 mg oral tablet, extended release 2019-02-06 21:22: 00 Yes 50 mg = 1 tab, PO, Daily, # 30 tab, 0 Refill(s), Pharmacy: [facility] atorvastatin 40 mg oral tablet 2019-02-06 21:22:00 Yes 40 mg = 1 tab, PO, Bedtime, # 30 tab, 0 Refill(s), Pharmacy: [facility] Sandra Shea Aspirin 81 MG Enteric Coated Tablet 2019-02-06 21:22:00 Yes 81 mg = 1 tab, PO, Daily, 0 Refill(s) Sandra adair Aspirin 81 MG Enteric Coated Tablet 2019-02-06 14:00:00 No Notes: Do not crush or chew. (Same As: Ecotrin) Az lily Shea Insulin Lispro 2019-02-06 03:27:00 No [...] 2019-02-05 17:32:00 No Notes: (Same as: Benadryl) [facility] methylPREDNISolone SODium SUCCinate 2019-02-05 17:32:00 No Notes: (Same as:Solu-MEDROL, A-Methapred) [facility] normal saline 0.9% IV 1,000 mL 2019-02-05 16:50:00 No 1,000 mL, Rate: 75 ml/hr, Infuse over: 13.3 hr, Route: IV, Dosing Weight 99.091 kg, Total Volume: 1,000, Start date: 02/05/19 11:50:00 CDT, Duration: 30 day, Stop date: 03/07/19 11:49:00 CDT, 2.15, m2 [facility] Shabbir Flexeril 2019-02-05 14:52:00 No Notes: (Mic e As: Flexeril) [facility] Shabbir Dextrose 50% Syringe 2019-02-04 22:14:00 No 12.5 gm, 25 mL, Route: IVP, Drug Form: INJ, Dosing Weight 99.091, kg, PRN, PRN Blood Glucose Results, Start date: 02/04/19 17:14:00 CDT, Duration: 30 day, Stop date: 03/06/19 17:13:00 CDT [facility] Shabbir Glucagon 2019-02-04 22:14:00 No 1 mg, Route: IM, Drug form: PDR/INJ, PRN, Dosing Weight 99.091, kg, PRN Blood Glucose Results, Start date: 02/04/19 17:14:00 CDT, Duration: 30 day, Stop date: 03/06/19 17:13:00 CDT [facility] Insulin Lispro 2019-02-04 22:14:00 No Notes: (Same as: Humalog ) Roll in palms of hands gently; Do not shake `vigorously. "Single Patient Use Only " WASTE: F/P - Black; E - Municipal Trash Bin Stable for 28 days at room temperature. Expires in days from Date [facility] Shabbir Humalog 2019-02-04 22:10:00 No Notes: [...] 02:21:00 No Notes: (S lise As: KlonoPIN) [facility] Shabbir Humalog 2019-02-04 02:20:00 No Notes: (Same as: Humalog ) Roll in palms of hands gently; Do not shake `vigorously. "Single Patient Use Only " WASTE: F/P - Black; E - Municipal Trash Bin Stable for 28 days at room temperature. Expires in days from Date [facility] Shabbir normal saline 0.9% IV 1,000 mL 2019-02-04 02:02:00 No 1,000 mL, Rate: 125 ml/hr, Infuse over: 8 hr, Route: IV, Dosing Weight 99.091 kg, Total Volume: 1,000, Start date: 02/03/19 21:02:00 CDT, Duration: 30 day, Stop date: 03/05/19 21:01:00 CDT, 2.15, m2 [facility] Shabbir atorvastatin 2019-02-04 02:00:00 No Notes: (Same as: Lipitor) [facility] Shabbir Remeron 2019-02-04 02:00:00 No Notes: (Same as:Remeron) [facility] Singulair 2019-02-04 02:00:00 No Notes: (Sa me as:Singulair) [facility] Plavix 2019-02-03 22:00:00 No Notes: (Same As: Plavix) [facility] Insulin Lispro 2019-02-03 18:04:00 No Notes: (Same as: Humalog ) Roll in palms of hands gently; Do not shake `vigorously. "Single Patient Use Only " WASTE: F/P - Black; E - Municipal Trash Bin Stable for 28 days at room temperature. Expires in days from Date Sandra Shea Acetaminophen 325 MG / Hydrocodone Bitartrate 10 MG Or al Tablet [[place] 10/325] 2019-02-03 17:00:00 No 1 ta b, Route: PO, Drug Form: TAB, Dosing Weight 99.091, kg, Q6H, Start date: 02/03/19 12:00:00 CDT, Duration: 30 day, Stop date: 03/05/19 6:00:00 CDT [facility] Shabbir Acetaminophen 325 MG / Hydrocodone Bitartrate 10 MG Or al Tablet [[place] 10/325] 2019-02-03 15:05:00 Yes 1 ta b, PO, 5X Day, PRN Pain Score 1-5, 0 Refill(s) Sandra Shea clonazePAM 0.5 mg oral tablet 2019-02-03 14:59:00 Yes 0.5 mg = 1 tab, PO, BID, PRN anxiety, # 60 tab, 0 Refill(s) [facility] insulin glargine 2019-02-03 14:00:00 No Notes: (Same as: Lantus) Do not hold insulin without contacting prescriber WASTE: F/P - Black; E - Municipal Trash Bin "single patient use only" [facility] gabapentin 2019-02-03 14:00:00 No Notes: (S lise as: Neurontin) [facility] Buspirone 2019-02-03 14:00:00 No Notes: (Sa me As: BuSpar) [facility] Wellbutrin 2019-02-03 14:00:00 No Notes: (Same as: Wellbutrin XL) "Do Not Crush" [facility] Protonix 2019-02-03 14:00:00 No Notes: Tablet should not be chewed or crushed. (Same as: Protonix) [facility] Prozac 2019-02-03 14:00:00 No Notes: (Same as: Prozac) [facility] Clonazepam 2019-02-03 14:00:00 No Notes: (S lise As: KlonoPIN) [facility] insulin detemir 2019-02-03 14:00:00 No 32 unit, Route: SUB-Q, Drug form: SOLN, BID, Dosing Weight 99.091, kg, Start date: 02/03/19 9:00:00 CDT, Duration: 30 day, Stop date: 03/04/19 17:00:00 CDT [facility] Lisinopril 2019-02-03 14:00:00 No Notes: (Same as: Od[place] Lr) [facility] Advair Diskus 100 mcg-50 mcg inhalation powder 2019-02-03 14:00: 00 No 1 puff, Route: INHALATION, Drug Form: PW DR, Dosing Weight 99.091, kg, BID, Start date: 02/03/19 9:00:00 CDT, Duration: 30 day, Stop date: 03/04/19 17:00:00 CDT [facility] Omeprazole 2019-02-03 14:00:00 No 40 mg, Route: PO, Drug form: DRC, Daily, Dosing Weight 99.091, kg, Start date: 02/03/19 9:00:00 CDT, Duration: 30 day, Stop date: 03/04/19 9:00:00 CDT [facility] orial Clyman Glucagon 2019-02-03 13:23:00 No 1 mg, Route: IM, Drug form: PDR/INJ, PRN, Dosing Weight 99.091, kg, PRN Blood Glucose Results, Start date: 02/03/19 8:23:00 CDT, Duration: 30 day, Stop date: 03/05/19 8:22:00 CDT [facility] Dextrose 50% Syringe 2019-02-03 13:23:00 No 25 gm, 50 mL, Route: IVP, Drug Form: INJ, Dosing Weight 99.091, kg, PRN, PRN Blood Glucose Results, Start date: 02/03/19 8:23:00 CDT, Duration: 30 day, Stop date: 03/05/19 8:22:00 CDT [facility] Insulin Lispro 2019-02-03 13:23:00 No Notes: (Same as: Humalog ) Roll in palms of hands gently; Do not shake `vigorously. "Single Patient Use Only " WASTE: F/P - Black; E - Municipal Trash Bin Stable for 28 days at room temperature. Expires in days from Date [facility] Hydroxyzine 2019-02-03 13:11:00 No Notes: (Same as: Atarax) Avoid alcohol. Sandra Shea Albuterol 0.833 MG/ML / Ipratropium [place] 0.167 MG/ML Inha lant Solution 2019-02-03 13:11:00 No Notes: (Same as: Shama grey) [facility] Acetaminophen 325 MG / Hydrocodone Bitartrate 10 MG Or al Tablet [[place] 10/325] 2019-02-03 09:00:00 No Note s: Do not exceed 4gm/day of acetaminophen. (Same as: [place] 325/10) [facility] Shabbir Zofran 2019-02-03 06:21:00 Yes 4 mg, PO, PRN , 0 Refill(s) Sandra Shea Acetaminophen 325 MG / Hydrocodone Bitartrate 10 MG Or al Tablet [[place] 10/325] 2019-02-03 06:21:00 No 1 tab, PO, Q6H, 0 Refill(s) [facility] Shabbir Humalog 2019-02-03 06:21:00 No SUB-Q, 0 Ref ill(s) [facility] Trazodone 2019-02-03 06:21:00 No 100 mg, PO , 0 Refill(s) [facility] Clonazepam 2019-02-03 06:21:00 No 1 mg, PO, TID, 0 Refill(s) [facility] Shabbir Remeron 2019-02-03 06:21:00 Yes 15 mg, PO, B edtime, 0 Refill(s) [facility] Shabbir 24 HR Nicotine 0.875 MG/HR Transdermal Patch 2019-02-03 06:21:00 Yes = 1 patch, TOP, Daily, # 30 patch, 0 Refill(s) [facility] Loperamide 2019-02-03 06:21:00 Yes 2 mg, PO, Q4H, PRN, 0 Refill(s) [facility] Shabbir Wellbutrin 2019-02-03 06:21:00 Yes See Instructions, 300 mg PO Qday, 0 Refill(s) [facility] Clyman Lactate 2019-02-03 06:21:00 No TOP, BID, 0 Refill(s) [facility] Hydroxyzine Hydrochloride 25 MG Oral Tablet 2019-02-03 06:21:00 Yes 25 mg = 1 tab, PO, QID, 0 Refill(s) [place] Shea Advair Diskus 100 mcg-50 mcg inhalation powder 2019-02-03 06:21: 00 Yes 1 puff, INHALATION, BID, 0 Refill(s) [facility] Shabbir Glucagon 2019-02-03 04:19:00 No 1 mg, Route: IM, Drug form: PDR/INJ, PRN, Dosing Weight 91.818, kg, PRN Blood Glucose Results, Start date: 02/02/19 23:19:00 CDT, Duration: 30 day, Stop date: 03/04/19 23:18:00 CDT [facility] Dextrose 50% Syringe 2019-02-03 04:19:00 No 25 gm, 50 mL, Route: IVP, Drug Form: INJ, Dosing Weight 91.818, kg, PRN, PRN Blood Glucose Results, Start date: 02/02/19 23:19:00 CDT, Duration: 30 day, Stop date: 03/04/19 23:18:00 CDT [facility] Seroquel 2019-02-03 04:18:00 No Notes: (Mic e as: SEROquel) [facility] Clonazepam 2019-02-03 04:12:00 No Notes: (S lise As: KlonoPIN) [facility] Heparin 30 unit/kg Bolus (Heparin Dosing Weight) 2019-02-02 23:4 3:00 No Route: IVP, PRN, 2,000 unit, 2 mL, Drug form: INJ, PRN, Heparin Protocol, Start date: 02/02/19 18:43:00 CDT Stop date: 03/04/19 18:42:00 CDT, 30 day [facility] heparin additive 25,000 unit [12 unit/kg /hr] + Premix Diluent Dextrose 5% 500 mL 2019-02-02 23:43:00 No 500 mL, Rate: 16.03 ml/hr, Infuse over: 31.2 hr, Route: IV, Dosing Weight 66.8 kg, Total Volume: 500 mL, Start date: 02/02/19 18:43:00 CDT, Duration: 30 day, Stop date: 03/04/19 18:42:00 CDT, 1.73, m2 [facility] Heparin - one time bolus for ACS 2019-02-02 23:43:00 No 4,000 unit, 4 mL, Route: IVP, Drug form: INJ, ONCE, Dosing Weight 91.818, kg, Priority: STAT, Start date: 02/02/19 18:43:00 CDT, Stop date: 02/02/19 18:43:00 CDT [facility] Heparin 60 unit/kg Bolus (Heparin Dosing Weight) 2019-02-02 23:4 3:00 No Route: IVP, PRN, 4,000 unit, 4 mL, Drug form: INJ, PRN, Heparin Protocol, Start date: 02/02/19 18:43:00 CDT Stop date: 03/04/19 18:42:00 CDT, 30 day [facility] alfentanil ([facility]) 2018-07-17 15:56:00 No Route: IV, Drug form: INJ, ONCE, Stop date: 07/17/18 10:56:00 CDT [facility] Clyman midazolam (ANES) 2018-07-17 15:46:00 No Route: IV, Drug form: SOLN, ONCE, Stop date: 07/17/18 10:46:00 [facility] S[facility] Ch[facility] 0.9% IV ([facility]) 1000 mL 2018-07-17 15:08:00 No Route: IV, Total Volume: 1,000, Start date: 07/17/18 10:08:00 CDT, Stop date: 07/17/18 11:08:00 CDT [facility] Trazodone 2018-07-14 15:16:00 No 20 mg, PO, Bedtime, 0 Refill(s) [facility] Plavix 2018-06-12 22:00:00 No Notes: (Same As: Plavix) [facility] Zofran 2018-06-12 20:25:00 No Notes: (Same as: Zofran) MEDICATION WASTE Product Size: 4 mg Product Wasted: ___ mg [facility] gabapentin 300 MG Oral Capsule 2018-06-12 17:00:00 No 300 mg = 1 cap, PO, TID, # 90 cap, 0 Refill(s), Pharmacy: [facility] Omeprazole 2018-06-12 14:00:00 No 40 mg, Route: [...] Hydrocodone Bitartrate 5 MG Oral Tabl et [[place] 5/325] 2018-06-12 02:34:00 No Notes: (Same as: [place] 325/5) Do not exceed 4gm/day of acetaminophen. [...] Sandra Shea Singulair 2018-06-12 02:00:00 No Notes: ([facility] as:Singulair) Sandra Shea gabapentin 400 MG Oral Capsule 2018-06-12 02:00:00 No Notes: (Same as: Neurontin) Sandra Shea Clonazepam 2018-06-12 02:00:00 No Notes: (S lise As: KlonoPIN) Sandra Shea Buspirone 2018-06-12 02:00:00 No Notes: ([facility] As: BuSpar) [facility] Shabbir Nicotine 2018-06-12 02:00:00 No 7 mg, 1 patch, Route: TOP, Drug form: ERFILM, Q24H, Dosing Weight 102.273, kg, Start date: 06/11/18 21:00:00 CDT, Duration: 30 day, Stop date: 07/10/18 21:00:00 CDT [facility] Shabbir *NURSE please bring home med METFORMIN to Pharmacy for label 2018-06-12 01:00:00 No *NURSE ple ase bring home med METFORMIN to Pharmacy for label, 1, Drug form: MISC, Route: MISC, TID, 06/11/18 20:00:00 CDT, Duration: 30 day, Stop date: 07/11/18 15:00:[address] [facility] Sodium Chloride 0.45% IV 1,000 [...] Weight 99.5, kg, Start date: 11/18/17 9:00:00 UNDER BASTER, Duration: 30 day, Stop date: 12/17/17 9:00:00 UNDER BASTER Sveta Hillir 2017-11-18 15:00:00 No Notes: (Sa me as:Singulair) Sandra Shea Abilify 2017-11-18 15:00:00 No 10 mg, Route: PO, Drug form: TAB, Daily, Dosing Weight 99.5, kg, Start date: 11/18/17 9:00:00 UNDER BASTER, Duration: 30 day, Stop date: 12/17/17 9:00:00 UNDER BASTER [facility] yousif Shea Plavix 2017-11-18 15:00:00 No [...] form: MISC, Route: MISC, QSHIFT, 11/17/17 16:00:00 UNDER BASTER, Duration: 30 day, Stop date: 12/17/17 8:00:00 UNDER BASTER Sandra Shea gabapentin 300 MG Oral Capsule [...] not exceed 4gm/day of acetaminophen. (Same as: [place] 325/10) Sandra Shea Acetaminophen 325 MG / Hydrocodone Bitartrate 5 MG Oral Tabl et 2017-11-17 09:03:00 Yes 1 tab, PO, Q4H, PRN Pain Scor e 4-6, 0 Refill(s) Sandra Woodann Dextrose 5% with 0.45% NaCl IV 1,000 mL 2017-11-17 07:23:00 No 1,000 mL, Rate: 75 ml/hr, Infuse over: 13.3 hr, Route: IV, Dosing Weight 99.5 kg, Total Volume: 1,000, Start date: 11/17/17 1:23:00 UNDER BASTER, Stop date: 12/17/17 1:22:00 UNDER BASTER, 2.15, m2 Sandra Woodann Acetaminophen 2017-11-17 06:20:00 No 650 mg, Route: PO, Drug form: TAB, ONCE, Dosing Weight 90.909, kg, Priority: STAT, Start date: 11/17/17 0:20:00 UNDER BASTER, Stop date: 11/17/17 0:20:00 UNDER BASTER Sandra Shea Dextrose 10% in Water IV 1,000 mL 2017-11-17 04:00:00 No 1,000 mL, Rate: 100 ml/hr, Infuse over: 10 hr, Route: IV, Dosing Weight 90.909 kg, Total Volume: 1,000, Start date: 11/16/17 22:00:00 UNDER BASTER, Duration: 30 day, Stop date: 12/16/17 21:59:00 UNDER BASTER, 2.06, m2 Sandra Shea Ondansetron 2017-11-17 03:40:00 [...] Total Volume: 1,000, Start date: 11/16/17 21:18:00 UNDER BASTER, Duration: 30 day, Stop date: 12/16/17 21:17:00 UNDER BASTER, 2.06, m2 Sandra Shea Trazodone Hydrochloride 100 [...] kg, ONCE, STAT, Start date: 11/16/17 19:14:00 UNDER BASTER, Stop date: 11/16/17 19:14:00 UNDER BASTER, 25 ml = 12.5 gm [facility] Sodium Chloride 0.9% (Bolus) IV 2017-11-17 01:04:00 No 2,000 mL, 2,000 ml/hr, Infuse Over: 1 hr, Route: IV, ONCE, Priority: STAT, Dosing Weight 90.909 kg, Start date: 11/16/17 19:04:00 UNDER BASTER, Stop date: 11/16/17 19:04:00 UNDER BASTER [facility] D5W 1/2NS 1,000 mL 2017-11-17 00:52:00 No 1,000 mL, Rate: 100 ml/hr, Infuse over: 10 hr, Route: IV, Total Volume: 1,000, Priority: STAT, Start date: 11/16/17 18:52:00 UNDER BASTER, Duration: 30 day, Stop date: 12/16/17 18:51:00 UNDER BASTER [facility] amitriptyline (ELAVIL) 25 MG tablet 2011-06-01 00:00:00 Yes 25mg QD Take 25-50 mg by mouth nightly. [facility] buPROPion (WELLBUTRIN SR) 150 MG 12 hr tablet 2011-06-01 00:00:0 0 Yes 150mg QD Take 150 mg by mouth daily. [facility] fLUoxetine (PROZAC) 20 MG capsule 2011-06-01 00:00:00 Yes 20mg QD Take 20 mg by mouth daily. [facility] Acetaminophen Acetaminophen Yes 650 Every 4 Hours as needed for Mild Pain (1-3) Or Fever>100.8 [facility] Ammonium Lactate Ammonium Lactate Yes 1 Twice A Day [facility] Atorvastatin Calcium Atorvastatin Calcium Yes 40 Bedtime [facility] Bupropion Hcl (Wellbutrin Sr) 150 Mg TABLET.ER Bupropi on Hcl (Wellbutrin Sr) 150 Mg TABLET.ER Yes 300 Bedtime [facility] Buspirone Hcl Buspirone Hcl Yes 7.5 Twice A Day [facility] Clonazepam Clonazepam Yes 1 Twice A Day as nee ded for Anxiety [facility] Clopidogrel Bisulfate (Plavix) 75 Mg TABLET Clopidogre l Bisulfate (Plavix) 75 Mg TABLET Yes 75 Daily [facility] Fluticasone/Salmeterol (Advair 100-50 Diskus) 1 Each D ISK.W.DEV Fluticasone/Salmeterol (Advair 100-50 Diskus) 1 Each DISK.W.DEV Yes 1 Twice A Day [facility] Gabapentin Gabapentin Yes 400 Three Times A Day [facility] Hydrocodone Bit/Acetaminophen ([place] 5-325 Tablet) 1 E ach TABLET Hydrocodone Bit/Acetaminophen ([place] 5-325 Tablet) 1 Each TABLET Yes 1 Daily as needed for P [facility] Hydroxyzine Hcl Hydroxyzine Hcl Yes 25 Bedtime as needed for Anxiety [facility] Hydroxyzine Hcl Hydroxyzine Hcl Yes 50 Bedtime as needed for Anxiety [facility] Insulin Detemir (Levemir) 100 Unit/1 Ml VIAL Insulin D etemir (Levemir) 100 Unit/1 Ml VIAL Yes 32 Twice A Day [facility] Insulin Lispro (Humalog) 100 Unit/1 Ml INSULN.PEN Insu rony Lispro (Humalog) 100 Unit/1 Ml INSULN.PEN Yes Three Times Daily With Meals [facility] Lisinopril Lisinopril Yes 2.5 Daily [facility] Loperamide Hcl (Loperamide) 2 Mg TABLET Loperamide Hcl (Nohemy ramide) 2 Mg TABLET Yes 2 Three Times A Day as needed for Diarrhea [facility] Metformin Hcl Metformin Hcl Yes 750 Twice A Day [facility] Metoprolol Succinate Metoprolol Succinate Yes 50 Daily [facility] Mirtazapine (Remeron) 15 Mg TABLET Mirtazapine (Remeron) 15 Mg TABLET Yes 15 Bedtime [facility] Montelukast Sodium (Singulair) 10 Mg TABLET Montelukas t Sodium (Singulair) 10 Mg TABLET Yes 10 Daily [facility] Nicotine (Nicotine Patch) 1 Each PATCH.TD24 Nicotine ( Nicotine Patch) 1 Each PATCH.TD24 Yes 21 Daily [facility] Omeprazole Omeprazole Yes 40 Daily [facility] Ondansetron Hcl (Zofran*) 4 Mg TABLET Ondansetron Hcl (Zofran*) 4 M g TABLET Yes 4 Daily as needed for Nausea [facility] Quetiapine Fumarate (Seroquel) 100 Mg TABLET Quetiapin e Fumarate (Seroquel) 100 Mg TABLET Yes 150 Bedtime [facility] Trazodone Hcl Trazodone Hcl Yes 100 Bedtime [facility] True Plus Gel True Plus Gel Yes 1 As Needed [facility] Tylenol Pm Tylenol Pm Yes 2 Bedtime as needed for Sleep [facility] Fluoxetine Hcl (Prozac) 20 Mg CAPSULE Fluoxetine Hcl (Prozac) 20 Mg CAPSULE 2019-02-22 00:00:00 No 40 Twice A Day [facility] Acetaminophen With Codeine (Tylenol With Codeine #4 Ta blet) 1 Each TABLET Acetaminophen With Codeine (Tylenol With Codeine #4 Tablet) 1 Each TABLET 2019-02-21 00:00:00 No Every 6 Hours as nee ded for Pain [facility] Acetaminophen/Hydrocodone Bitart ([place] 10MG-325MG*) 1 Ea TAB Acetaminophen/Hydrocodone Bitart ([place] 10MG-325MG*) 1 Ea TAB 2019-02-21 00:00:00 No 1 Four Times Daily [facility] Albuterol Sulfate (Proair Hfa Inhaler*) 8.5 Gm INH Alb uterol Sulfate (Proair Hfa Inhaler*) 8.5 Gm INH 2019-02-21 00:00:00 No 108 Da jeniffer [facility] Allopurinol Allopurinol 2019-02-21 00:00:00 No 300 D aily [facility] Aripiprazole (Abilify) 10 Mg TABLET Aripiprazole (Abilify) 10 Mg TABLET 2019-02-21 00:00:00 No 10 Daily [facility] Azithromycin (Z-Curry) 250 Mg TABLET Azithromycin (Z-Curry) 250 Mg T ABLET 2019-02-21 00:00:00 No 250 Use As Directed [facility] Cefdinir (Omnicef) 300 Mg CAPSULE Cefdinir (Omnicef) 300 Mg CAPS ULE 2019-02-21 00:00:00 No 300 Twice A Day [facility] Clonazepam (Klonopin) 1 Mg TABLET Clonazepam (Klonopin) 1 Mg TAB LET 2019-02-21 00:00:00 No 1 Twice A Day as needed for Anxi ety [facility] Fluoxetine Hcl (Prozac) 40 Mg CAPSULE Fluoxetine Hcl (Prozac) 40 Mg CAPSULE 2019-02-21 00:00:00 No 60 Daily [facility] Gabapentin Gabapentin 2019-02-21 00:00:00 No 300 Thr ee Times A Day [facility] Lidocaine (Lidoderm) 700 Mg ADH..PATCH Lidocaine (Lidoderm) 700 Mg ADH..PATCH 2019-02-21 00:00:00 No 1 Daily [facility] Montelukast Sodium (Singulair) 10 Mg TABLET Montelukas t Sodium (Singulair) 10 Mg TABLET 2019-02-21 00:00:00 No 10 Daily [facility] Azithromycin (Z-Curry) 250 Mg TABLET Azithromycin (Z-Curry) 250 Mg T ABLET 2018-02-04 00:00:00 No 250 Use As Directed [facility] Cefdinir (Omnicef) 300 Mg CAPSULE Cefdinir (Omnicef) 300 Mg CAPS ULE 2018-02-04 00:00:00 No 300 Twice A Day [facility] [place] Insuln Asp Prt/Insulin Aspart (Novolog M ix 70-30 Flexpen Syrn) 100 Unit/1 Ml INSULN.PEN Insuln Asp Prt/Insulin Aspart (Novolog M ix 70-30 Flexpen Syrn) 100 Unit/1 Ml INSULN.PEN 2018-02-04 00:00:00 No [facility] Invokana Invokana 2018-02-04 00:00:00 No 300 Daily [facility] Levofloxacin (Levaquin) 500 Mg TABLET Levofloxacin (Levaquin) 50 0 Mg TABLET 2018-02-04 00:00:00 No 500 Daily [facility] Metformin Hcl Metformin Hcl 2018-02-04 00:00:00 No 1000 Twice A Day [facility] Ondansetron (Zofran Odt) 4 Mg TAB.RAPDIS Ondansetron ( Zofran Odt) 4 Mg TAB.RAPDIS 2018-02-04 00:00:00 No 4 Every 6 Hours [facility] Rosuvastatin Calcium (Crestor) 20 Mg TABLET Rosuvastat in Calcium (Crestor) 20 Mg TABLET 2018-02-04 00:00:00 No 20 Daily [facility] Tizanidine Hcl (Zanaflex) 4 Mg TABLET Tizanidine Hcl (Zanaflex) 4 Mg TABLET 2018-02-04 00:00:00 No 4 Every 8 Hours as nee ded for Prn [facility] Varenicline Tartrate (Chantix) 0.5 Mg TABLET Varenicli ne Tartrate (Chantix) 0.5 Mg TABLET 2018-02-04 00:00:00 No .5 Twice A Day [facility] Zolpidem Tartrate (Ambien) 10 Mg TABLET Zolpidem Tartrate (A mbien) 10 Mg TABLET 2018-02-04 00:00:00 No 10 Bedtime as needed for Sleep [facility] Linagliptin (Tradjenta) 5 Mg TABLET Linagliptin (Tradjenta) 5 Mg TABLET 2017-08-17 00:00:00 No 5 Daily [facility] Lisinopril Lisinopril 2017-08-17 00:00:00 No 10 Zeinab ly [facility] Sertraline Hcl (Zoloft) 100 Mg TABLET Sertraline Hcl (Zoloft) 10 0 Mg TABLET 2017-08-17 00:00:00 No 100 Daily [facility] Alprazolam (Xanax Xr) 2 Mg TAB.ER.24H Alprazolam (Xanax Xr) 2 Mg TAB.ER.24H 2015-09-12 00:00:00 No 2 Three Times A Day [facility] Bupropion Hcl (Wellbutrin) 100 Mg TABLET Bupropion Hcl (Wellbutrin) 100 Mg TABLET 2015-09-12 00:00:00 No 100 Daily [facility] Carisoprodol (Soma) 350 Mg TABLET Carisoprodol (Soma) 350 Mg TAB LET 2015-09-12 00:00:00 No 350 Three Times A Day [facility] Immunizations Ordered Immunization Name Filled Immunization Name Date Status Comments Source Tdap 2018-11-12 00:00:00 Completed [place] [facility] [facility] Vital Signs Vital Name Observation Time Observation Value Comments Source Weight 2020-05-24 22:34:00 239 [lb_av] [facility] BMI (Body Mass Index) 2020-05-24 22:34:00 41.0 kg/m2 [facility] Systolic blood pressure 2020-03-01 08:00:00 136 mm[Hg] [facility] Diastolic blood pressure 2020-03-01 08:00:00 65 mm[Hg] [facility] Heart rate 2020-03-01 08:00:00 84 /min [facility] Body temperature 2020-03-01 08:00:00 36.78 Le [facility] Respiratory rate 2020-03-01 08:00:00 18 /min [facility] Body weight Measured 2020-03-01 08:00:00 107.049 kg [facility] BMI 2020-03-01 08:00:00 40.51 kg/m2 [facility] Oxygen saturation in Arterial blood by Pulse oximetry 03-01 08:00:00 99 /[facility] height 2020-02-28 09:23:00 162.6 cm [facility] Body Temperature 2020-02-28 07:32:00 93.7 [degF] [facility] Weight 2020-02-28 00:45:00 239 [lb_av] [facility] BMI (Body Mass Index) 2020-02-28 00:45:00 41.0 kg/m2 [facility] Heart Rate 2019-02-28 18:46:00 [facility] Systolic (mm Hg) 2019-02-28 18:46:00 [place] [facility] Diastolic (mm Hg) 2019-02-28 18:46:00 [facility] Temperature Oral (F) 2019-02-28 16:33:00 98.6 F [facility] Heart Rate 2019-02-28 16:33:00 [facility] Respitory Rate 2019-02-28 16:33:00 [facility] Systolic (mm Hg) 2019-02-28 16:33:00 [place] [facility] Diastolic (mm Hg) 2019-02-28 16:33:00 [facility] Respitory Rate 2019-02-28 12:52:00 [facility] Systolic (mm Hg) 2019-02-28 12:26:00 [place] [facility] Diastolic (mm Hg) 2019-02-28 12:26:00 [facility] Heart Rate 2019-02-28 12:26:00 [facility] Temperature Oral (F) 2019-02-28 12:26:00 98.2 F [facility] Temperature Oral (F) 2019-02-28 09:27:00 98.4 F [facility] Respitory Rate 2019-02-28 09:27:00 [facility] Weight 2019-02-28 00:46:00 [facility] BMI Calculated 2019-02-28 00:46:00 [facility] Height 2019-02-28 00:46:00 162.56 cm [facility] Height 2019-02-27 18:52:00 162.56 cm [facility] BMI Calculated 2019-02-27 18:52:00 [facility] Weight 2019-02-27 18:52:00 [facility] Systolic (mm Hg) 2019-02-06 21:00:00 [place] [facility] Diastolic (mm Hg) 2019-02-06 21:00:00 [facility] Respitory Rate 2019-02-06 21:00:00 [facility] Temperature Oral (F) 2019-02-06 20:38:00 98.4 F [facility] Systolic (mm Hg) 2019-02-06 19:00:00 [place] [facility] Diastolic (mm Hg) 2019-02-06 19:00:00 [facility] Respitory Rate 2019-02-06 19:00:00 [facility] Systolic (mm Hg) 2019-02-06 17:04:00 [place] [facility] Diastolic (mm Hg) 2019-02-06 17:04:00 [facility] Respitory Rate 2019-02-06 17:04:00 [facility] Temperature Oral (F) 2019-02-06 16:46:00 98.2 F [facility] Temperature Oral (F) 2019-02-06 12:44:00 98.2 F [facility] Height 2019-02-03 04:43:00 162.56 cm [facility] Weight 2019-02-03 04:43:00 [facility] BMI Calculated 2019-02-03 04:43:00 [facility] Height 2019-02-02 21:15:00 157.48 cm [facility] BMI Calculated 2019-02-02 21:15:00 [facility] Weight 2019-02-02 21:15:00 [facility] Heart Rate 2019-02-02 21:15:00 [facility] Systolic (mm Hg) 2018-07-17 16:46:00 [place] [facility] Diastolic (mm Hg) 2018-07-17 16:46:00 [facility] Respitory Rate 2018-07-17 16:46:00 [facility] Heart Rate 2018-07-17 16:46:00 [facility] Heart Rate 2018-07-17 13:00:00 [facility] Systolic (mm Hg) 2018-07-17 13:00:00 [place] [facility] Diastolic (mm Hg) 2018-07-17 13:00:00 [facility] Respitory Rate 2018-07-17 13:00:00 [facility] BMI Calculated 2018-07-14 15:34:00 [facility] Weight 2018-07-14 15:34:00 [facility] Height 2018-07-14 15:34:00 162.56 cm [facility] Respitory Rate 2018-06-12 22:03:00 [facility] Systolic (mm Hg) 2018-06-12 22:03:00 [place] [facility] Diastolic (mm Hg) 2018-06-12 22:03:00 [facility] Heart Rate 2018-06-12 22:03:00 [facility] Temperature Oral (F) 2018-06-12 22:03:00 98.3 F [facility] Temperature Oral (F) 2018-06-12 17:46:00 98.8 F [facility] Heart Rate 2018-06-12 17:46:00 [facility] Respitory Rate 2018-06-12 17:46:00 [facility] Systolic (mm Hg) 2018-06-12 17:46:00 [place] [facility] Diastolic (mm Hg) 2018-06-12 17:46:00 [facility] Heart Rate 2018-06-12 12:38:00 [facility] Respitory Rate 2018-06-12 12:38:00 [facility] Systolic (mm Hg) 2018-06-12 12:38:00 [place] [facility] Diastolic (mm Hg) 2018-06-12 12:38:00 [facility] Temperature Oral (F) 2018-06-12 12:38:00 98.4 F [facility] BMI Calculated 2018-06-12 00:20:00 [facility] Height 2018-06-12 00:20:00 162.56 cm [facility] Weight 2018-06-12 00:20:00 [facility] Weight 2018-06-11 19:15:00 [facility] Height 2018-06-11 19:15:00 162.56 cm [facility] BMI Calculated 2018-06-11 19:15:00 [facility] Systolic (mm Hg) 2017-11-17 20:00:00 [place] [facility] Diastolic (mm Hg) 2017-11-17 20:00:00 [facility] Respitory Rate 2017-11-17 20:00:00 [facility] Systolic (mm Hg) 2017-11-17 19:00:00 [place] [facility] Diastolic (mm Hg) 2017-11-17 19:00:00 [facility] Respitory Rate 2017-11-17 19:00:00 [facility] Respitory Rate 2017-11-17 18:00:00 Svetaori hugo [facility] [...] [facility] BMI Calculated 2017-11-17 08:38:00 [facility] Height 2017-11-17 00:48:00 162.56 cm [facility] Heart Rate 2017-11-17 00:48:00 [facility] BMI Calculated 2017-11-17 00:48:00 [facility] Weight 2017-11-17 00:48[facility] Procedure Date / Time Performed Performing Clinician [facility] e REPORT OF PROCEDURE - ENDOSCOPY SCAN 2020-03-07 12:30:57 Pro vider, Default Scanning [facility] RHYTHM STRIP - SCAN 2020-03-03 11:11:15 Provider, Default Scanni ng [facility] POCT-GLUCOSE METER 2020-03-01 08:10:00 Anne-Marie Sandoval [facility] PHOSPHORUS 2020-03-01 04:18:00 Ruiz Garcia [facility] BASIC METABOLIC PANEL (7) 2020-03-01 04:18:00 Anne-Marie Sandoval [facility] CBC (HEMOGRAM ONLY) 2020-03-01 03:26:00 Anne-Marie Sandoval [facility] VANCOMYCIN LEVEL, TROUGH 2020-02-29 22:38:00 Clem Harrell [facility] POCT-GLUCOSE METER 2020-02-29 21:15:00 Anne-Marie Sandoval [facility] POCT-GLUCOSE METER 2020-02-29 18:14:00 [facility] 2020-02-29 13:03:00 Himascarlet [facility] POCT-GLUCOSE METER 2020-02-29 08:06:00 Jaime [facility] PHOSPHORUS 2020-02-29 04:16:00 Radha [facility] CBC (HEMOGRAM ONLY) 2020-02-29 04:16:00 Jaime [facility] BASIC METABOLIC PANEL (7) 2020-02-29 04:16:00 Anne-Marie Sandoval [facility] LEGIONELLA URINE ANTIGEN 2020-02-28 18:05:00 Franklin Villarreal [facility] URINALYSIS W/ REFLEX URINE CULTURE 2020-02-28 18:05:00 Radha [facility] BASIC METABOLIC PANEL (7) 2020-02-28 16:03:00 Radha [facility] CREATINE KINASE (CK) 2020-02-28 16:03:00 Franklin Villarreal [facility] POCT-GLUCOSE METER 2020-02-28 11:29:00 Tobias Vang [facility] XR CHEST 1 VIEW PORTABLE/BEDSIDE 2020-02-28 10:20:00 Radha [facility] AMMONIA 2020-02-28 09:37:00 Radha [facility] BLOOD CULTURE 2020-02-28 09:36:00 Franklin Villarreal [facility] SARS-COV2/RT-PCR ([facility]) 2020-02-28 09:18:00 Radha [facility] RESPIRATORY PANEL [facility] 2020-02-28 09:18:00 Ruiz Garcia [facility] RAPID INFLUENZA A&B SCREEN 2020-02-28 09:18:00 Summer Garcia [facility] BLOOD CULTURE 2020-02-28 09:09:00 Franklin Villarreal [facility] TROPONIN I 2020-02-28 09:01:00 Radha [facility] TSH/FREE T4 IF INDICATED 2020-02-28 09:01:00 Radha [facility] CORTISOL 2020-02-28 09:01:00 Radha [facility] MRSA SCREEN 2020-02-28 08:53:00 Radha [facility] B-TYPE NATRIURETIC FACTOR (BNP) 2020-02-28 08:53:00 Latia Garcia [facility] FERRITIN 2020-02-28 08:53:00 Franklin Villarreal Doyle [facility] IRON, TIBC, % SAT. (WITHOUT FERRITIN) 2020-02-28 08:53:00 Franklin Kemp [facility] RETICULOCYTE COUNT 2020-02-28 08:53:00 Franklin Villarreal [facility] VITAMIN B12 AND FOLATE 2020-02-28 08:53:00 Franklin Villarreal [facility] LACTIC ACID, VENOUS 2020-02-28 08:53:00 Radha [facility] BLOOD GAS, VENOUS 2020-02-28 08:53:00 Radha [facility] HEMOGLOBIN A1C 2020-02-28 08:53:00 Radha [facility] CBC W/PLT COUNT & AUTO DIFFERENTIAL 2020-02-28 08:53:00 Fredl randall [facility] COMPREHENSIVE METABOLIC PANEL 2020-02-28 08:52:00 Maksim Garcia [facility] MAGNESIUM 2020-02-28 08:52:00 Radha [facility] PROTHROMBIN TIME/INR 2020-02-28 08:52:00 Radha [facility] APTT 2020-02-28 08:52:00 Ruiz Garcia [facility] FIBRINOGEN 2020-02-28 08:52:00 [facility]IN 2020-02-28 08:52:00 Ruiz Garcia [facility] Computed tomography of brain without radiopaque contrast 2020-01 00:00:00 [facility] Computed tomography of chest without contrast 2020-02-28 00:00:0 0 [facility] Computed tomography of brain without radiopaque contrast 202 00:00:00 DO GUTIERREZ [facility] Abdominal hysterectomy [facility] Eye incision [facility] Foot joint operations [facility] Placement of stent [facility] Procedure [facility] Plan of Care Planned Activity Planned Date Details Comments Source Future Scheduled Test 2020-07-01 00:00:00 INFLUENZA VACCINE [code = INFLUENZA VACCINE] [facility] Scheduled Test 2012 00:00:00 BREAST CANCER SCRE ENING [code = BREAST CANCER SCREENING] [facility] Scheduled Test 2012 00:00:00 COLONOSCOPY SCREEN ING [code = COLONOSCOPY SCREENING] [facility] Scheduled Test 2012 00:00:00 SHINGLES VACCINES (#1) [code = SHINGLES VACCINES (#1)] [facility] Scheduled Test 1983 00:00:00 Screening for sushila gnant neoplasm of cervix (procedure) [code = 832228468] [facility] Instructions Sprains - Wrist [facility] Encounters Start Date/Time End Date/Time Encounter Type Admission Type Attendi [facility] Care Department Encounter ID Source 2020-05-24 22:34:00 2020-05-24 23:55:00 Departed Emergency Room 1 JUAN CARLOS ALBERT [facility] [id number] ALISIA Padilla [facility] 2020-02-27 22:51:00 2020-02-28 07:10:00 Departed Emergency Room 1 DO SCHROEDER [facility] [id number] [facility] 2019-12-23 16:37:00 2019-12-23 22:40:00 Departed Emergency Room 1 SHANNON GONZALEZ [facility] [id number] [facility] 2019-12-22 16:31:00 2019-12-22 21:46:00 Departed Emergency Room 1 SHANNON GONZALEZ [facility] [id number] [facility] 2019-10-10 20:58:00 2019-10-11 02:08:00 Departed Emergency Room 1 MARYLU VALDOVINOS [facility] [id number] [facility] 2019-07-03 15:01:00 2019-07-03 19:27:00 Departed Emergency Room 1 JUAN CARLOS CAT [facility] [id number] [facility] 2019-06-19 13:06:00 2019-06-19 15:45:00 Departed Emergency Room [facility] [id number] [facility] 2019-06-03 21:51:00 2019-06-03 23:45:00 Departed Emergency Room [facility] [id number] [facility] 2019-03-15 15:49:00 2019-03-15 18:14:00 Departed Emergency Room 1 JUAN CARLOS CAT [facility] [id number] [facility] 2019-03-07 13:20:00 2019-03-07 16:24:00 Departed Emergency Room [facility] [id number] [facility] 2019-02-27 13:42:36 2019-02-28 16:20:00 Outpatient Holly Ruiz [facility] [id number] 2019-02-27 17:37:00 2019-02-27 17:37:00 Outpatient E [facility] CAR [facility] 2019-02-26 14:30:00 2019-02-26 16:29:00 Departed Emergency Room 1 SHANNON GONZALEZ [facility] [id number] [facility] 2019-02-21 20:01:00 2019-02-23 17:50:00 Discharged Inpatient (obs) 1 SHANNON GONZALEZ [facility] [id number] [facility] 2019-02-02 16:01:00 2019-02-06 17:20:00 Outpatient Jermaine Gupta [facility] [id number] 2019-02-02 18:39:00 2019-02-02 16:01:00 Inpatient E [facility] MED [address] [place] [address] 2018-12-22 21:11:00 2018-12-22 23:27:00 Departed Emergency Room 1 VALDOVINOS, MARYLU [facility] [id number] [facility] 2018-10-05 23:12:00 2018-10-06 12:56:00 Discharged Inpatient (obs) 1 JUAN CARLOS CAT [facility] [id number] [facility] 2018-07-17 07:38:00 2018-07-17 23:59:00 Outpatient José Miguel Samuel [facility] [id number] 2018-06-11 14:13:00 2018-06-12 18:14:00 Outpatient Alverto Sepulveda [facility] [id number] 2018-06-05 15:32:00 2018-06-05 21:08:00 Departed Emergency Room 1 ISIAH HALE [facility] [id number] [facility] 2018-04-14 22:17:00 2018-04-14 22:31:00 Departed Emergency Room [facility] [id number] [facility] 2018-04-14 22:17:00 2018-04-14 22:31:00 Departed Emergency Room [facility] [id number] [facility] 2018-04-06 20:24:00 2018-04-06 23:06:00 Departed Emergency Room 1 MARYLU VALDOVINOS [facility] [id number] [facility] 2018-04-06 15:48:00 2018-04-06 20:05:00 Departed Emergency Room 1 MANUELITO FISH [facility] [id number] [facility] 2018-02-11 21:03:00 2018-02-12 00:05:00 Departed Emergency Room [facility] [id number] [facility] 2018-02-03 14:12:00 2018-02-04 16:56:00 Discharged Inpatient (obs) ER LOLA BOUCHER [facility] [id number] [facility] 2017-11-16 18:36:00 2017-11-17 15:45:00 [facility]patient [facility]lu [facility] [id number] 2017-11-06 12:21:00 2017-11-06 18:28:00 Departed Emergency Room ER FIDEL HALEIAN [facility] [id number] [facility] 2017-11-05 13:17:00 2017-11-05 13:17:00 Registered Clinic CORRIE IVEY [facility] [id number] [facility] 2017-10-17 04:51:00 2017-10-17 04:51:00 Registered Referred [facility] [id number] [facility] 2017-09-30 04:24:00 2017-10-03 16:54:00 Discharged Inpatient ER BONIFACIO MARYLU [facility] [id number] [facility] 2017-08-16 17:46:00 2017-08-18 14:47:00 Discharged Inpatient ER LOLA BOUCHER [facility] [id number] [facility] 2017-07-22 17:49:00 2017-07-22 21:50:00 Departed Emergency Room ER JACIEL BECKER [facility] [id number] [facility] 2017-07-15 16:27:00 2017-07-15 18:55:00 Departed Emergency Room ER SIOBHAN PORTER [facility] [id number] [facility] 2016-12-09 09:53:00 2016-12-09 23:59:00 Outpatient BrentCarrington [facility] [id number] 2015-12-22 11:23:00 2015-12-22 23:59:00 Outpatient Susan Coy [facility] [id number] 2015-06-24 13:47:00 2015-06-24 23:59:00 Outpatient RochaHomer [facility] [id number] Results Test Description Test Time Test Comments Results Result Comments Source CT PELVIS WO 2020-06-13 17:12:00 [facility] [address] [place] [address] Patient Name: STEPHANIE CAMERON MR #: [id number] : 1960 Age/Sex: 60/F Req #: [id number] Adm Physician: Ordered by: JUAN CARLOS ALBERT DO Report #: [id number] Location: ER Room/Bed: Procedure: [id number] CT/CT PELVIS WO Exam Date: 06/13/20 Exam [...] ALBERT DO CT CHEST WO 2020-06-13 17:07:00 [place] [address] Patient Name: STEPHANIE CAMERON MR #: [id number] : 1960 Age/Sex: 60/F Req #: [id number] Adm Physician: Ordered by: JUAN CARLOS ALBERT DO Report #: [id number] Location: ER Room/Bed: Procedure: [id number] CT/CT CHEST WO Exam Date: 06/13/20 Exam [...] ALBERT DO CT CERVICAL SPINE 2020-06-13 16:55:00 [place] [address] Patient Name: STEPHANIE CAMERON MR #: [id number] : 1960 Age/Sex: 60/F Req #: [id number] Adm Physician: Ordered by: JUAN CARLOS ALBERT DO Report #: [id number] Location: ER Room/Bed: Procedure: [id number] CT/CT CERVICAL SPINE WO Exam Date: 06/13/20 [...] ALBERT DO CT BRAIN WO 2020-06-13 16:48:00 [place] [address] Patient Name: STEPHANIE CAMERON MR #: [id number] : 1960 Age/Sex: 60/F Req #: [id number] Adm Physician: Ordered by: JUAN CARLOS ALBERT DO Report #: [id number] Location: ER Room/Bed: Procedure: [id number] CT/CT BRAIN WO Exam Date: 06/13/20 Exam [...] ALBERT DO WRIST COMPLETE RIGHT 2020-05-24 23:33:00 [facility] [address] [place] [address] Patient Name: STEPHANIE CAMERON MR #: [id number] : 1960 Age/Sex: 60/F Req #: [id number] Adm Physician: Ordered by: JUAN CARLOS ALBERT DO Report #: [id number] Location: ER Room/Bed: Procedure: [id number] DX/WRIST COMPLETE RIGHT Exam Date: 05/24/20 Exam [...] 6463-4) No [facility] in 5 [id number] 11:00:00* Test Item Value Reference Range Interpretation Comments CULTURE (BEAKER) (test code = 1095) No growth in 5 days BLOOD [id number] 11:00:00* Test Item Value Reference Range Interpretation Comments CULTURE (BEAKER) (test code = 1095) No growth in 5 days MRSA [id number] 10:22:00* Test Item Value Reference Range Interpretation Comments Result (test code = 6463-4) No MRSA isolated [facility] [id number] 10:22:00* Test Item Value Reference Range Interpretation Comments CULTURE (BEAKER) (test code = 1095) No MRSA isolated POC-Glucose [id number] 08:21:00* Test Item Value Reference Range Interpretation Comments POC-Glucose Meter (test code = 1538) 166 mg/dL 70-110 H : TESTED AT [address], [address]: Documentation Specialist/Park Maintainer ID = [id number] for RUSLAN CRUZ Lab Interpretation (test code = 08288-6) Abnormal [facility] [id number] 08:21:00* Test Item Value Reference Range Interpretation Comments POC-GLUCOSE METER (BEAKER) (test code = 1538) 166 mg/dL 70-110 H : TESTED AT [address], [address]: Documentation Specialist/Park Maintainer ID = [id number] for RUSLAN CRUZ Basic Metabolic [id number] 04:49:00* Test Item Value Reference Range Interpretation [...] mg/dL 70-105 H Calcium (test code = 57275-3) 8.7 mg/dL 8.4-10.2 EGFR (test code = 67384-0) 67 mL/min/1.73 sq m ESTIMATED GFR IS NOT ACCURATE CREATININE CLEARANCE IN PREDICTING GLOMERULAR FILTRATION RATE. ESTIMATED GFR IS NOT APPLICABLE FOR DIALYSIS PATIENTS. OSCAR (test code = OSCAR) Documentation Specialist ID - PIAYA L Lab Interpretation (test code = 81282-5) Abnormal [facility] 04:49:00* Test Item Value Reference Range Interpretation Comments Phosphorus (test code = 2777-1) 3.4 mg/dL 2.3-4.7 OSCAR (test code = OSCAR) Documentation Specialist ID Nasir LLOYD L Lab Interpretation (test code = 79050-3) Normal [facility]2020-05-02 04:49:00* Test Item Value Reference Range Interpretation Comments PHOSPHORUS (BEAKER) (test code = 604) 3.4 mg/dL 2.3-4.7 Documentation Specialist ID Nasir LLOYD LBASIC METABOLIC [id number] 04:49:00* Test Item Value Reference Range Interpretation [...] GFR IS NOT APPLICABLE FOR DIALYSIS PATIENTS. Documentation Specialist GEMA LLOYD LCBC (Hemogram only)2020-03-01 03:54:00* Test [...] 450 K/CU MM MPV (test code = 41066-5) 8.6 fL 9.4-12.3 L nRBC (test code = 413) 0 0- 0 /100 WBC Lab Interpretation (test code = 15721-2) Abnormal [facility] (HEMOGRAM ONLY)2020-03-01 03:54:00* Test Item Value Reference [...] 0 /100 WBC 0 -0 Vancomycin level, [id number] 23:22:00* Test Item Value Reference Range Interpretation Comments Vancomycin Tr (test code = 4092-3) 15.7 ug/mL 10-20 OSCAR (test code = OSCAR) Documentation Specialist ID - DB Lab Interpretation (test code = 60734-4) Normal [facility], [id number] 23:22:00* Test Item Value Reference Range Interpretation Comments VANCOMYCIN TROUGH (BEAKER) (test code = 522) 15.7 ug/mL 10.0-20.0 Documentation Specialist ID - DBPOCT-GLUCOSE [id number] 21:27:00* Test Item Value Reference Range Interpretation Comments POC-GLUCOSE METER (BEAKER) (test code = 1538) 197 mg/dL 70-110 H : TESTED AT [address], [address]: Documentation Specialist/Park Maintainer ID = [id number] for Marimar Duffy POCT-GLUCOSE [id number] 18:25:00* Test Item Value Reference Range Interpretation Comments POC-GLUCOSE METER (BEAKER) (test code = 1538) 179 mg/dL 70-110 H : TESTED AT [address], [address]: Documentation Specialist/Park Maintainer ID = [id number] for Wilbert, Candice POCT-GLUCOSE [id number] 13:14:00* Test Item Value Reference Range Interpretation Comments POC-GLUCOSE METER (BEAKER) (test code = 1538) 146 mg/dL 70-110 H : TESTED AT [address], [address]: Documentation Specialist/Park Maintainer ID = [id number] for Wilbert, Candice POCT-GLUCOSE [id number] 08:17:00* Test Item Value Reference Range Interpretation Comments POC-GLUCOSE METER (BEAKER) (test code = 1538) 159 mg/dL 70-110 H : TESTED AT [address], [address]: Documentation Specialist/Park Maintainer ID = [id number] for Wilbert, Candice [id number] 05:00:00* Test Item Value Reference Range Interpretation Comments PHOSPHORUS (BEAKER) (test code = 604) 3.4 mg/dL 2.3-4.7 Documentation Specialist ID - BSBASIC METABOLIC [id number] 05:00:00* Test Item Value Reference Range Interpretation [...] GFR IS NOT APPLICABLE FOR DIALYSIS PATIENTS. Documentation Specialist ID - BSCBC (HEMOGRAM ONLY)2020-02-29 04:47:00* Test [...] 0 /100 WBC 0 -0 Strep pneumoniae [id number] 20:30:00* Test Item Value Reference Range Interpretation Comments Strep pneumoniae Antigen (test code = 67970-7) Presump tive negative for pneumococcal meningitis - see comment Presumptive negative for pneumococcal pneumonia - see comment, Presumptive negative for pneumococcal meningitis OSCAR (test code = OSCAR) Presumptive negative for pne umococcal meningitis. Infection due to S. pneumoniae cannot be ruled out since the antigen present in the sample may be below the detection limit of the test. Lab Interpretation (test code = 75093-2) [facility] [id number] 20:30:00* Test Item Value Reference Range Interpretation [...] de tection limit of the test.Legionella antigen, [id number] 20:17:00* Test Item Value Reference Range Interpretation Comments Legionella Urine Antigen (test code = 72886-9) Negative - see comme nt Negative for L. pneumophila serogroup 1 antigen, suggesting no recent or current infection with this serogroup. Legionellosis cannot be ruled out since other serogroups and species may cause disease. [facility] HospitalLEGIONELLA ANTIGEN, [id number] 20:17:00* Test Item Value Reference Range Interpretation Comments L. PNEUMOPHILA SEROGP 1 UR AG (BEAKER) (test code = 11 56) Negative - see comment Negative for L. pneu mophila serogroup 1 antigen, suggesting no recent or current infection with this serogroup. Legionellosis cannot be ruled out since other serogroups and species may cause disease. Urinalysis w/Microscopic + Reflex to [id number] 18:25:00* Test Item Value Reference Range Interpretation Comments Color, UA (test code = 5778-6) Light Yellow Clarity, UA (test code = 5767-9) Clear Specific [place], UA (test code = 5811-5) 1.007 1.001-1.035 pH, UA (test code = 5803-2) 7.5 5.0-8.0 Protein, UA (test code = 71145-1) Negative Negative Glucose, UA (test code = 365) Negative Negative Ketones, UA (test code = 2514-8) Negative Negative Bilirubin, UA (test code = 36573-8) Negative Negative Blood, UA (test code = 72603-1) Negative Negative Nitrite, UA (test code = 5802-4) Negative Negative Leukocytes, UA (test code = 5799-2) Negative Negative Urobilinogen, UA (test code = 83056-6) 0.2 mg/dL 0.2-1 RBC, UA (test code = 23752-3) <1 /HPF WBC, UA (test code = 5821-4) <1 /HPF Squam Epithel, UA (test code = 45282-9) <1 /HPF Specimen Source (test code = 2795) OSCAR (test code = OSCAR) Documentation Specialist ID - [auto]Documentation Specialist ID - [facility] UR[facility] [id number] 18:25:00* Test Item Value Reference Range Interpretation [...] < /HPF SOURCE(BEAKER) (test code = 2795) Documentation Specialist ID - [auto]Documentation Specialist ID - techCreatine Kinase (CK)2020-02-28 17:56:00* Test Item Value Reference Range Interpretation Comments Total CK (test code = 2157-6) 257 U/L 29-200 H OSCAR (test code = OSCAR) Documentation Specialist ID - BS Lab Interpretation (test code = 42505-9) Abnormal [facility] HospitalCREATINE KINASE (CK)2020-02-28 17:56:00* Test Item Value Reference Range Interpretation Comments CREATINE KINASE TOTAL (BEAKER) (test code = 380) 257 U/L 29-20 0 H Documentation Specialist ID - BSBASIC METABOLIC [id number] 16:29:00* Test Item Value Reference Range Interpretation [...] GFR IS NOT APPLICABLE FOR DIALYSIS PATIENTS. Documentation Specialist ID - BSHemoglobin [id number] 11:56:00* Test Item Value Reference Range Interpretation Comments Hemoglobin A1C (test code = 4548-4) 7.8 % 4.3-6.1 H Lab Interpretation (test code = 46407-0) Abnormal [facility] HospitalRespiratory Panel [id number] 11:56:00* Test Item Value Reference Range Interpretation Comments Human Metapneumovirus (test code = 72005-7) Not detected Not detected, Equivocal Rhinovirus (test code = 64238-2) Not detected Not detected, Equivoc al INFLUENZA A (NO SUBTYPE) (test code = 09726-9) Not detected Not detected, Equivocal Influenza A subtype H1 (test code = 89549-1) Influenza A Subtype H3 (test code = 40959-4) Influenza A Subtype H1-2009 (test code = 11155-0) Influenza B (test code = 34703-0) Not detected Not detected, Equivo latricia Respiratory Syncytial Virus (test code = 54357-3) Not detect ed Not detected, Equivocal Parainfluenza Virus 1 (test code = 06812-7) Not detected Not detected, Equivocal Parainfluenza Virus 2 (test code = 98392-3) Not detected Not detected, Equivocal Parainfluenza virus 3 (test code = 24064-0) Not detected Not detected, Equivocal Parainfluenza Virus 4 (test code = 90303-5) Not detected Not detected, Equivocal Adenovirus (test code = 74884-9) Not detected Not detected, Equivoc al Coronavirus 229E (test code = 73689-0) Not detected Not detected, E quivocal Coronavirus HKU1 (test code = 65425-4) Not detected Not detected, E quivocal Coronavirus NL63 (test code = 48480-5) Not detected Not detected, E quivocal Coronavirus OC43 (test code = 98949-8) Not detected Not detected, E quivocal Bordetella Pertussis (test code = 87346-1) Not detected Not d etected, Equivocal Chlamydophila Pneumoniae (test code = 65678-3) Not detected Not detected, Equivocal Mycoplasma Pneumoniae (test code = 42817-9) Not detected Not detected, Equivocal OSCAR (test [...] decisions. This sample was tested at the [facility] Molecular Diagnostics Laboratory using the E-Line MediaArray Respiratory Panel. It is FDA cleared and has been verified and approved by the [facility] Diagnostics Laboratory for clinical use on nasopharyngeal swab specimens. The performance of the FilmArra y RP has not been established in individuals who received influenza vaccine. Recent administration of a nasal influenza vaccine may cause false positive results for Influenza A and/orInfluenza B. [facility] [id number] 11:56:00* Test Item Value Reference Range Interpretation [...] decisions. This sample was tested at the [facility] Molecular Diagnostics Laboratory using the GraphLab FilmA rray Respiratory Panel. It is FDA cleared and has been verified and approved by the [facility] Molecular Diagnostics Laboratory for clinical use on nasopharyngeal sw ab specimens.The performance of the FilmArray RP has not been established in ind ividuals who received influenza vaccine. Recent administration of a nasal influ arnie vaccine may cause false positive results for Influenza A and/orInfluenza B. HEMOGLOBIN [id number] 11:56:00* Test Item Value Reference Range Interpretation Comments HEMOGLOBIN A1C (BEAKER) (test code = 368) 7.8 % 4.3-6.1 H POCT-GLUCOSE [id number] 11:42:00* Test Item Value Reference Range Interpretation Comments POC-GLUCOSE METER (BEAKER) (test code = 1538) 174 mg/dL 70-110 H : TESTED AT [facility] [address] [place] [address], [address]: Documentation Specialist/Park Maintainer ID = [id number] for FRANTZ BRANCH Rapid Influenza A&B Zooehb5183-93-06 11:27:00* Test Item Value Reference Range Interpretation Comments Rapid Influenza A Antigen (test code = 10306-4) Negative Negative, Inconclusive Rapid influenza B Antigen (test code = 76999-1) Negative Negative, Inconclusive Lab Interpretation (test code = 02415-6) Normal [facility] HospitalRAPID INFLUENZA A&B [id number] 11:27:00* Test Item Value Reference Range Interpretation Comments RAPID INFLUENZA A AG (BEAKER) (test code = 1622) Negative Negative, Inconclusive RAPID INFLUENZA B AG (BEAKER) (test code = 1623) Negative Negative, Inconclusive Uqqqmtcr8981-97-81 10:52:00* Test Item Value Reference Range Interpretation Comments Cortisol, Total (test code = 2755) 6.9 ug/dL 3.7-19.4 OSCAR (test code = OSCAR) Documentation Specialist ID - AAHAMID Lab Interpretation (test code = 31498-9) Normal [facility] HospitalCORTISOL2020-04-30 10:52:00* Test Item Value Reference Range Interpretation Comments CORTISOL, TOTAL (KATERINE) (test code = 2755) 6.9 ug/dL 3.7-19.4 Documentation Specialist ID - AAHAMJACQUI-CoV2/RT-PCR ([facility])2020-02-28 10:45:00* Test Item Value Reference Range Interpretation Comments SARS-COV2/RT-PCR (test code = 70697-5) Not Detected Not Detected, N egative SARS-COV-2 PERFORMING LAB (test code = 10872-4) [facility] OSCAR (test code = OSCAR) Negative results [...] of the Act. Fact Sheet for Healthcare Providers:https://www.Photo Rankr/Documents/Xpert%20Xpress%20SARS%20CoV-2/Fact%2 0Sheets/332-3722%76DEQP-GKH-5%20HEALTHCARE%20PROVIDERS%20FACT%20SHEET.pdf Fact Sheet for Healthcare Patients:https://www.[employer]/Documents/Xpert%20Xpress%20SARS%20CoV-2/Fact%20 Sheets/434-5229%86QTHG-LVH-2%20PATIENT%20FACT%20SHEET.pdf Performing Laboratory:[place] [address], [place] [address] [place], [place] [address]ARS-COV2/RT-PCR ([facility])2020-02-28 10:45:00* Test Item Value Reference Range Interpretation Comments SARS-COV2/RT-PCR (test code = 6247259) Not Detected Not Detected, N egative SARS-COV-2 PERFORMING LAB (test code = 1178798) [facility] Negative results do not preclude SARS-CoV-2 infection and should not be used as the sole basis for patient management decisions. Negative results must be combin ed with clinical observations, patient history, and epidemiological information. A false negative result may occur if a specimen is improperly collected, transp orted or handled.The limit of detection for this assay is 250 copies/mL.This [facility] CoV-2 test is a rapid, real-time [...] of the Act.Fact Sheet for Healthcare Providers:ht tps://www.[employer]/Documents/Xpert%20Xpress%20SARS%20CoV-2/Fact%20Sheets/302- 6032%03DAQI-CNX-1%20HEALTHCARE%20PROVIDERS%20FACT%20SHEET.pdfFact Sheet for Heal thcare Patients:https://www.[employer]/Documents/Xpert%20Xpress%20SARS%20CoV-2/ Fact%20Sheets/302-8971%86OYMI-BOQ-4%20PATIENT%20FACT%20SHEET.pdfPerforming Labor atory:[facility], [place] [address]WIQ, CHEST, 1 VIEW, NON [id number] 10:38:00Reason for exam:->SOBFINAL REPORT RAD, CHEST, 1 [...] Verified Date/Time: 02/28/2020 10:38: 15 Reading Location: [facility] Radiology Reading Room Electronically sign ed by: OLIVA TUCKER on 02/28/2020 10:38 AM XR chest 1 view portable / [id number] 10:38:00Interface, External Ris In - 02/28/2020 10:40 [...] MDReport Verified Date/Time: 02/28/2020 10:38:15 Reading Location: [facility] Radiology Reading Room [facility] HospitalFerritin2020-04-30 10:16:00* Test Item Value Reference Range Interpretation Comments Ferritin (test code = 2276-4) 6.73 ng/mL 5-275 OSCAR (test code = OSCAR) Documentation Specialist ID - LA Lab Interpretation (test code = 41182-5) Normal [facility] HospitalVitamin B12 and [id number] 10:16:00* Test Item Value Reference Range Interpretation Comments Vitamin B12 (test code = 2132-9) 382 pg/mL 213-816 Folate (test code = 2284-8) 4.10 ng/mL >=7.00 L OSCAR (test code = OSCAR) Documentation Specialist ID - LA Lab Interpretation (test code = 13718-6) Abnormal [facility] HospitalFERRITIN2020-04-30 10:16:00* Test Item Value Reference Range Interpretation Comments FERRITIN (BEAKER) (test code = 361) 6.73 ng/mL 5.00-275.00 Documentation Specialist ID - LAVITAMIN B12 AND [id number] 10:16:00* Test Item Value Reference Range Interpretation Comments VITAMIN B12 (BEAKER) (test code = 774) 382 pg/mL 213-816 FOLATE (BEAKER) (test code = 362) 4.10 ng/mL >=7.00 L Documentation Specialist ID - LATSH/Free T4 If Nrnmtlwin0968-50-49 10:02:00* Test Item Value Reference Range Interpretation Comments TSH (test code = 19792-3) 0.364 0.350- 4.940 uIU/mL OSCAR (test code = OSCAR) Documentation Specialist ID - LA Lab Interpretation (test code = 72245-1) Normal [facility] HospitalTSH/FREE T4 IF [id number] 10:02:00* Test Item Value Reference Range Interpretation Comments THYROID STIMULATING HORMONE (BEAKER) (test code = 772) 0.364 uIU /mL 0.350-4.940 Documentation Specialist ID - NLBtazqllsegves6488-27-80 09:59:00* Test Item Value Reference Range Interpretation Comments Procalcitonin (test code = 67749-8) <0.05 <0.05 ng/mL OSCAR (test code = OSCAR) SEPSIS RISK (ng/mL)Low: 0.05-0.50Intermediate: 0.51-2.00High: >=2.01 Lab Interpretation (test code = 66546-2) Normal [facility] HospitalPROCALCITONIN2020-04-30 09:59:00* Test Item Value Reference Range Interpretation Comments PROCALCITONIN (BEAKER) (test code = 3036) < ng/mL <0.05 SEPSIS RISK (ng/mL)Low: 0.05-0.50Intermediate: 0.51-2.00High: > =2.87Mewwwea4815-23-48 09:54:00* Test Item Value Reference Range Interpretation Comments Ammonia (test code = 69401-4) 34 18- 72 mol/L Specimen slightly hemolyzed OSCAR (test code = OSCAR) Documentation Specialist ID - AAHAMID Lab Interpretation (test code = 78111-2) Normal [facility] HospitalAMMONIA2020-04-30 09:54:00* Test Item Value Reference Range Interpretation Comments AMMONIA (BEAKER) (test code = 348) 34 mol/L 18-72 Specimen slightly hemolyzed Documentation Specialist ID - AAHAMIDB-type Natriuretic Factor (BNP)2020-02-28 09:49:00* Test Item Value Reference Range Interpretation Comments BNP (test code = 70436-8) 62 pg/mL 0-100 OSCAR (test code = SOCAR) Documentation Specialist ID - LA Lab Interpretation (test code = 62242-4) Normal [facility] HospitalB-TYPE NATRIURETIC FACTOR (BNP)2020-02-28 09:49:00 * Test Item Value Reference Range Interpretation Comments B-TYPE NATRIURETIC PEPTIDE (BEAKER) (test code = 700) 62 pg/mL 0-100 Documentation Specialist ID - LATroponin [id number] 09:47:00* Test Item Value Reference Range Interpretation Comments Troponin I (test code = 98537-2) <0.01 0-0.03 OSCAR (test code = OSCAR) [...] failure, acidosis, acute neurological disease, and persistent tachyarrhythmia.Documentation Specialist ID - LA Lab Interpretation (test code = 65805-3) Normal [facility] HospitalCBC with platelet count + automated [id number] 09:47:00* Test Item Value Reference Range Interpretation [...] 450 K/CU MM MPV (test code = 64772-9) 8.3 fL 9.4-12.3 L nRBC (test code [...] % 0-1 Lab Interpretation (test code = 59112-8) Abnormal [facility] ED[facility]IN [id number] 09:47:00* Test Item Value Reference Range Interpretation [...] acidosis, acute neurological disease, and per sistent tachyarrhythmia.Documentation Specialist ID - LACBC W/PLT COUNT & AUTO [...] 20-55 L OSCAR (test code = OSCAR) Documentation Specialist ID - LA Lab Interpretation (test code = 08887-8) Abnormal [facility] CenterIRON, TIBC, % SAT. (WITHOUT FERRITIN)2020-02-28 09:44:00* Test Item Value Reference Range Interpretation Comments IRON (BEAKER) (test code = 547) 16.0 ug/dL 40.0-160.0 L TOTAL IRON BINDING CAPACITY (BEAKER) (test code = 769) 404 ug/dL 250-450 IRON % SATURATION (2) (BEAKER) (test code = 2590) 4 % 20-5 5 L Documentation Specialist ID - LAComprehensive metabolic [id number] 09:41:00* Test Item Value Reference Range Interpretation Comments Protein, Total (test code = 2885-2) 6.2 6.0- 8.3 gm/dL Albumin (test code = 49711-2) 3.3 g/dL 3.5-5 L Alkaline Phosphatase (test [...] mg/dL 70-105 H Calcium (test code = 98418-8) 8.6 mg/dL 8.4-10.2 AST (test code = 1920-8) 13 U/L 5-34 ALT (test code = 1742-6) 7 U/L 6-55 EGFR (test code = 39289-7) 76 mL/min/1.73 sq m ESTIMATED GFR IS NOT ACCURATE CREATININE CLEARANCE IN PREDICTING GLOMERULAR FILTRATION RATE. ESTIMATED GFR IS NOT APPLICABLE FOR DIALYSIS PATIENTS. OSCAR (test code = OSCAR) Documentation Specialist ID - LA Lab Interpretation (test code = 31983-3) Abnormal [facility]2020-04-30 09:41:00* Test Item Value Reference Range Interpretation Comments Magnesium (test code = 51479-1) 1.6 mg/dL 1.6-2.6 OSCAR (test code = OSCAR) Documentation Specialist ID - LA Lab Interpretation (test code = 43523-4) Normal [facility]2020-04-30 09:41:00* Test Item Value Reference Range Interpretation Comments MAGNESIUM (BEAKER) (test code = 627) 1.6 mg/dL 1.6-2.6 Documentation Specialist ID - LACOMPREHENSIVE METABOLIC TZZKE6922-26-01 09:41:00* Test Item Value Reference Range Interpretation [...] GFR IS NOT APPLICABLE FOR DIALYSIS PATIENTS. Documentation Specialist ID - LALactic acid, jypfkj1374-62-93 09:37:00* Test Item Value Reference Range Interpretation Comments Lactate, Venous (test code = 2872) 2.15 mmol/L 0.5-2.2 OSCAR (test code = OSCAR) Documentation Specialist ID - LA Lab Interpretation (test code = 32627-9) Normal [facility] HospitalLACTIC ACID, [id number] 09:37:00* Test Item Value Reference Range Interpretation Comments LACTATE BLOOD VENOUS (2) (AKER) (test code = 2872) 2.15 mmol/L 0 .50-2.20 Documentation Specialist ID - LABlood gas, jjuemo3904-23-37 09:30:00* Test Item Value Reference Range Interpretation Comments pH, Oren (test code = 2746-6) 7.33 7.32-7.42 pCO2, Oren (test code = 755) 63 41- 51 mmHg H pO2, Oren (test code = 2705-2) 43 25- 40 mmHg H O2 Sat, Oren (test code = 2711-0) 74.9 % 40-70 H HCO3, Oren (test code = 33231-8) 33 mmol/L 21-29 H Base Excess, Oren (test code = 1927-3) 5.4 mmol/L -2-3 H Patient Temperature (test code = 8310-5) 36.5 C FIO2 (test code = 1819) 21 % Lab Interpretation (test code = 43877-1) Abnormal [facility] HospitalaPTT2020-04-30 09:30:00* Test Item Value Reference Range Interpretation Comments PTT (test code = 89215-9) 30.6 22.5- 36.0 seconds Lab Interpretation (test code = 49546-8) Normal [facility] HospitalBLOOD GAS, [id number] 09:30:00* Test Item Value Reference Range Interpretation [...] (BEAKER) (test code = 1819) 21.0 % [id number] 09:30:00* Test Item Value Reference Range Interpretation Comments PARTIAL THROMBOPLASTIN TIME (BEAKER) (test code = 760) 30.6 seconds 22.5-36.0 Bemyhzwqed5457-64-28 09:29:00* Test Item Value Reference Range Interpretation Comments Fibrinogen (test code = 3255-7) 350 mg/dl 225-434 Lab Interpretation (test code = 98856-7) Normal [facility] HospitalProthrombin time/[id number] 09:29:00* Test Item Value Reference Range Interpretation [...] heart valves. Lab Interpretation (test code = 77524-1) Normal [facility] HospitalPROTHROMBIN TIME/[id number] 09:29:00* Test Item Value Reference Range Interpretation [...] 2.5-3.5 for patie nts wiht mechanical heart valves.ZUITWZOHUE9341-60-66 09:29:00* Test Item Value Reference Range Interpretation Comments FIBRINOGEN LEVEL (BEAKER) (test code = 658) 350 mg/dl 225-434 Reticulocyte btjep9897-12-59 09:23:00* Test Item Value Reference Range Interpretation Comments % Retic (test code = 64887-9) 2.2 % 0.5-1.7 H OSCAR (test code = OSCAR) Documentation Specialist ID - [id number] Lab Interpretation (test code = 04700-6) Abnormal [facility] HospitalRETICULOCYTE [id number] 09:23:00* Test Item Value Reference Range Interpretation Comments RETICULOCYTE COUNT PCT (BEAKER) (test code = 575) 2.2 % 0.5- 1.7 H Documentation Specialist ID - [id number] blood glucose measurement by glucometer (mass/volume)2020-02-28 06:18:00* Test Item Value Reference Range Interpretation Comments Bedside Glucose (test code = 87379-1) 294 70-120 Meter ID: [id number] Memorial HospitalCapillary blood glucose measurement by glucometer (mass/volume)2020-02-28 06:18:00* Test Item Value Reference Range Interpretation Comments Bedside Glucose (test code = 27015-5) 294 70-120 Meter ID: [id number] Memorial HospitalFluoroscopic procedure less than one hour fpzkgdcx6119-24-68 05:40:00* Test Item Value Reference Range Interpretation Comments Venous Blood pH (test code = Venous Blood pH) 7.284 7.35-7.3 8 [facility] HospitalFluoroscopic procedure less than one hour tgjoalbx1759-14-95 05:40:00* Test Item Value Reference Range Interpretation Comments Venous Blood Partial Pressure CO2 (test code = Venous Blood Partial Pressure CO2) 71.4 44-48 [facility] HospitalFluoroscopic procedure less than one hour yagdixxp0076-37-22 05:40:00* Test Item Value Reference Range Interpretation Comments Venous Blood HCO3 (test code = Venous Blood HCO3) 33.9 21-2 2 [facility] HospitalFluoroscopic procedure less than one hour yrinzcxo2376-49-82 05:40:00* Test Item Value Reference Range Interpretation Comments Venous Blood Total Carbon Dioxide (test code = Venous Blood Total Carbon Dioxide) 36 [facility] HospitalFluoroscopic procedure less than one hour rdxgvbfy9999-21-54 05:40:00* Test Item Value Reference Range Interpretation Comments Venous Blood Base Excess (test code = Venous Blood Base Excess) 7 [facility] HospitalFluoroscopic procedure less than one hour jnyyrocn7702-57-73 05:40:00* Test Item Value Reference Range Interpretation Comments FiO2 (test code = FiO2) 36 PT IS ON 4L [facility] smwwurza8890-83-65 05:40:00* Test Item Value Reference Range Interpretation Comments Venous Blood pH (test code = Venous Blood pH) 7.284 7.35-7.3 8 [facility] HospitalFluoroscopic procedure less than one hour cyihnooz9591-21-61 05:40:00* Test Item Value Reference Range Interpretation Comments Venous Blood Partial Pressure CO2 (test code = Venous Blood Partial Pressure CO2) 71.4 44-48 [facility] HospitalFluoroscopic procedure less than one hour smpiulhi0064-29-28 05:40:00* Test Item Value Reference Range Interpretation Comments Venous Blood HCO3 (test code = Venous Blood HCO3) 33.9 21-2 2 [facility] HospitalFluoroscopic procedure less than one hour gpizxcni1214-90-87 05:40:00* Test Item Value Reference Range Interpretation Comments Venous Blood Total Carbon Dioxide (test code = Venous Blood Total Carbon Dioxide) 36 [facility] HospitalFluoroscopic procedure less than one hour weqjikcw7097-29-71 05:40:00* Test Item Value Reference Range Interpretation Comments Venous Blood Base Excess (test code = Venous Blood Base Excess) 7 [facility] HospitalFluoroscopic procedure less than one hour rymdxtoz6951-62-18 05:40:00* Test Item Value Reference Range Interpretation Comments FiO2 (test code = FiO2) 36 PT IS ON 4L [facility] YJ3301-54-07 04:53:00 [facility] [address] [place] [address] Patient Name: STEPHANIE CAMERON MR #: [id number] : 1960 Age/Sex: 59/F Req #: [id number] Adm Physician: Ordered by: DO SCHROEDER DO Report #: [id number] Location: ER Room/Bed: Procedure: [id number] CT/CT CHEST WO Exam Date: 02/28/20 Exam [...] By: VENKATESH RAN on 02/28/20456 COPY TO: DO SCHROEDER DO CT BRAIN WO 2020-02-28 04:32:00 [place] [address] Patient Name: STEPHANIE CAMERON MR #: [id number] : 1960 Age/Sex: 59/F Req #: [id number] Adm Physician: Ordered by: DO SCHROEDER DO Report #: [id number] Location: ER Room/Bed: Procedure: [id number] CT/CT BRAIN WO Exam Date: 02/28/20 Exam [...] DO Fluoroscopic procedure less than one hour gasanzjy4489-38-62 03:30:00* Test Item Value Reference Range Interpretation [...] under 564(g) of the ACT.Testing performed by [address]Fluoroscopic procedure less than one hour duration [...] under 564(g) of the ACT.Testing performed by [address]Arterial blood pH idqpgxhwjqb4175-32-41 02:50:00* Test Item Value Reference Range Interpretation Comments Arterial Blood pH (test code = 2744-1) 7.25 7.35-7.45 [facility] ZazM7557-48-40 02:50:00* Test Item Value Reference Range Interpretation Comments Arterial Blood Partial Pressure CO2 (test code = 2018-8) 76 35-45 [facility] HospitalArterial blood bicarbonate measurement (moles/volume)2020-02-28 02:50:00* Test Item Value Reference Range Interpretation Comments Arterial Blood HCO3 (test code = 1960-4) 33 22- [facility] HospitalArterial blood base excess by calculation 2020-02-28 02:50:00* Test Item Value Reference Range Interpretation Comments Arterial Blood Base Excess (test code = 1925-7) 6.0 -2-3 [facility] HospitalArterial blood pH deuyemyapva6277-45-72 02:50:00* Test Item Value Reference Range Interpretation Comments Arterial Blood pH (test code = 2744-1) 7.25 7.35-7.45 [facility] HospitalpCO2 IkwC0633-34-69 02:50:00* Test Item Value Reference Range Interpretation Comments Arterial Blood Partial Pressure CO2 (test code = 2018-8) 76 35-45 [facility] HospitalArterial blood bicarbonate measurement (moles/volume)2020-02-28 02:50:00* Test Item Value Reference Range Interpretation Comments Arterial Blood HCO3 (test code = 1960-4) 33 - [facility] HospitalArterial blood base excess by calculation 2020-02-28 02:50:00* Test Item Value Reference Range Interpretation Comments Arterial Blood Base Excess (test code = 1925-7) 6.0 -2-3 [facility] HospitalCHEST SINGLE (PORTABLE)2020-02-28 02:32:00 [place] [address] Patient Name: STEPHANIE CAMERON MR #: [id number] : 1960 Age/Sex: 59/F Req #: [id number] Adm Physician: Ordered by: DO SCHROEDER DO Report #: [id number] Location: ER Room/Bed: Procedure: [id number] DX/CHEST SINGLE (PORTABLE) Exam Date: 02/28/20 Exam [...] COPY TO: DO SCHROEDER DO Urine color rscnincqqzcbj1993-52-75 02:00:00* Test Item Value Reference Range Interpretation Comments Urine Color (test code = 5778-6) YELLOW YELLOW [facility] HospitalUrine vanmwbw9834-91-30 02:00:00* Test Item Value Reference Range Interpretation Comments Urine Clarity (test code = 62779-4) CLEAR CLEAR [facility] gravity of Urine by Test strip 2020-02-28 02:00:00* Test Item Value Reference Range Interpretation Comments Urine Specific [place] (test code = 5811-5) 1.020 1.010-1.02 5 [facility] HospitalU[facility] pH measurement by automated test dkrgx8285-09-65 02:00:00* Test Item Value Reference Range Interpretation Comments Urine pH (test code = 63838-0) 6 5-7 [facility] HospitalUrine leukocyte esterase detection by ibkklstf3577-43-35 02:00:00* Test Item Value Reference Range Interpretation Comments Urine Leukocyte Esterase (test code = 5799-2) NEGATIVE NEGATIVE [facility] HospitalUrine nitrite wprwyihzk5436-85-20 02:00:00* Test Item Value Reference Range Interpretation Comments Urine Nitrite (test code = 75881-8) NEGATIVE NEGATIVE [facility] HospitalUrine protein measurement by test strip (mass/volume)2020-02-28 02:00:00* Test Item Value Reference Range Interpretation Comments Urine Protein (test code = 5804-0) 1+ NEGATIVE [facility] HospitalUrine glucose mqfbpjjcm0702-21-17 02:00:00* Test Item Value Reference Range Interpretation Comments Urine Glucose (UA) (test code = 2349-9) NEGATIVE NEGATIVE [facility] HospitalUrine ketones detection by automated test yzouo1265-82-12 02:00:00* Test Item Value Reference Range Interpretation Comments Urine Ketones (test code = 60223-8) NEGATIVE NEGATIVE [facility] HospitalUrine opiates screening ctlg8545-04-75 02:00:00* Test Item Value Reference Range Interpretation Comments Urine Opiates Screen (test code = 52485-1) NEGATIVE NEGATIVE ALL TESTS PERFORMED MANUALLY ON [facility] TOX/SEE TESTUvalde Memorial HospitalBarbiturates screen, jddni4999-24-17 02:00:00* Test Item Value Reference Range Interpretation Comments Urine Barbiturates Screen (test code = 443069281) NEGATIVE NEGA TIVE [facility] HospitalUrine phencyclidine detection by screening zsjsct0601-91-43 02:00:00* Test Item Value Reference Range Interpretation Comments Urine Phencyclidine Screen (test code = 78085-2) NEGATIVE NEGAT RHIANNA [facility] HospitalUrine amphetamines detection by screen method > 1000 ng/pH1906-11-19 02:00:00* Test Item Value Reference Range Interpretation Comments Urine Amphetamines Screen (test code = 69429-9) NEGATIVE NEGATI VE [facility] HospitalFluoroscopic procedure less than one hour bopqwnkt1728-17-90 02:00:00* Test Item Value Reference Range Interpretation Comments Urine Methamphetamines Screen (test code = Urine Metha mphetamines Screen) NEGATIVE NEGATIVE [facility] HospitalUrine benzodiazepines detection by screening tpgoyq9010-95-88 02:00:00* Test Item Value Reference Range Interpretation Comments Urine Benzodiazepines Screen (test code = 11004-2) NEGATIVE NEG ATIVE [facility] HospitalUrine cocaine measurement (mass/volume) 2020-02-28 02:00:00* Test Item Value Reference Range Interpretation Comments Urine Cocaine Screen (test code = 3398-5) NEGATIVE NEGATIVE [facility] HospitalUrine cannabinoids detection by screening iyyqih0622-93-14 02:00:00* Test Item Value Reference Range Interpretation Comments Urine Cannabinoids Screen (test code = 60805-5) NEGATIVE NEGATI VE THESE RESULTS ARE FOR MEDICAL TREATMENT ONLYTHIS REPORT CONTAINS UNCONFIR MED SCREENING RESULTS*POSITIVE RESULTS WILL BE CONFIRMED BY REFERENCE LAB UPON R EQUEST CUT-OFFDRUG CLASS CONCENTRATION ng/mLAmphetamines 1000Methamphetamines 1000Cocaine 300Opiate 300Phencyc lidine 25Cannabinoid 50Barbiturates 300Benzodiazepine 300Methadone 300[facility]Urine methadone jfecqa2148-68-01 02:00:00* Test Item Value Reference Range Interpretation Comments Urine Methadone Screen (test code = 89748-0) NEGATIVE NEGATIVE THESE RESULTS ARE FOR MEDICAL TREATMENT ONLYTHIS REPORT CONTAINS UNCONFIR MED SCREENING RESULTS*POSITIVE RESULTS WILL BE CONFIRMED BY REFERENCE LAB UPON R EQUEST CUT-OFFDRUG CLASS CONCENTRATION ng/mLAmphetamines 1000Methamphetamines 1000Cocaine Metabolite 300Opiate 300Phencyc lidine 25Cannabinoid 50Barbiturates 300Benzodiazepine 300Methadone 300[facility] WorthUrine urobilinogen measurement by test strip (mass/volume)2020-02-28 02:00:00* Test Item Value Reference Range Interpretation Comments Urine Urobilinogen (test code = 21567-7) 0.2 0.2-1 [facility] HospitalUrine total bilirubin measurement (mass/volume)2020-02-28 02:00:00* Test Item Value Reference Range Interpretation Comments Urine Bilirubin (test code = 1978-6) NEGATIVE NEGATIVE [facility] HospitalUrine erythrocytes yhtifzyjt4854-00-75 02:00:00* Test Item Value Reference Range Interpretation Comments Urine Blood (test code = 35238-8) NEGATIVE NEGATIVE [facility] HospitalAutomated urine sediment leukocyte count by microscopy (number/high power field)2020-02-28 02:00:00* Test Item Value Reference Range Interpretation Comments Urine WBC (test code = 5821-4) 0-5 0-5 [facility] HospitalErythrocytes detection in urine sediment by light rkqzsfammd6781-16-36 02:00:00* Test Item Value Reference Range Interpretation Comments Urine RBC (test code = 29129-3) 0-5 0-5 [facility] HospitalBacteria detection in urine sediment by light vyyqbnrato0755-65-28 02:00:00* Test Item Value Reference Range Interpretation Comments Urine Bacteria (test code = 08059-0) FEW NONE [facility] HospitalEpithelial cells detection in urine sediment by light zuuihspbfb0394-47-29 02:00:00* Test Item Value Reference Range Interpretation Comments Urine Epithelial Cells (test code = 10831-4) FEW NONE [facility] HospitalHyaline casts detection in urine sediment by light ptkzpvtgpf8753-37-59 02:00:00* Test Item Value Reference Range Interpretation Comments Urine Hyaline Casts (test code = 46777-1) 2-5 0-1 [facility] HospitalMucus detection in urine sediment by light pmbnpuxmyb4937-59-63 02:00:00* Test Item Value Reference Range Interpretation Comments Urine Mucus (test code = 8247-9) FEW RARE [facility] HospitalFluoroscopic procedure less than one hour pzenwbes4286-06-88 02:00:00* Test Item Value Reference Range Interpretation Comments Lactic Acid Level (test code = Lactic Acid Level) 3.6 0.5- 2.0 Results repeated and called to DO SCHROEDER DO at 0248 on 02/28/20 by [facility]. Read back and verified.[facility] HospitalBlood culture 2020-02-28 02:00:00* Test Item Value Reference Range Interpretation Comments Blood Culture (test code = 06891386) NO GROWTH AFTER 5 DAYS, FINAL REPORT [facility] HospitalUrine color gpeywlwnuvdgw8626-19-89 02:00:00* Test Item Value Reference Range Interpretation Comments Urine Color (test code = 5778-6) YELLOW YELLOW [facility] HospitalUrine lvxcczv5944-63-42 02:00:00* Test Item Value Reference Range Interpretation Comments Urine Clarity (test code = 40230-0) CLEAR CLEAR [facility] gravity of Urine by Test strip 2020-02-28 02:00:00* Test Item Value Reference Range Interpretation Comments Urine Specific [place] (test code = 5811-5) 1.020 1.010-1.02 5 [facility] HospitalUrine pH measurement by automated test noedo4837-26-13 02:00:00* Test Item Value Reference Range Interpretation Comments Urine pH (test code = 47185-3) 6 5-7 [facility] HospitalUrine leukocyte esterase detection by nyzobgpf8102-19-18 02:00:00* Test Item Value Reference Range Interpretation Comments Urine Leukocyte Esterase (test code = 5799-2) NEGATIVE NEGATIVE [facility] HospitalUrine nitrite tjtqcedwr4047-48-30 02:00:00* Test Item Value Reference Range Interpretation Comments Urine Nitrite (test code = 96870-7) NEGATIVE NEGATIVE [facility] HospitalUrine protein measurement by test strip (mass/volume)2020-02-28 02:00:00* Test Item Value Reference Range Interpretation Comments Urine Protein (test code = 5804-0) 1+ NEGATIVE [facility] HospitalUrine glucose jfqpkwrfj8095-66-89 02:00:00* Test Item Value Reference Range Interpretation Comments Urine Glucose (UA) (test code = 2349-9) NEGATIVE NEGATIVE [facility] HospitalUrine ketones detection by automated test hkvyo9916-16-16 02:00:00* Test Item Value Reference Range Interpretation Comments Urine Ketones (test code = 49531-6) NEGATIVE NEGATIVE [facility] HospitalUrine opiates screening pqcd4738-38-40 02:00:00* Test Item Value Reference Range Interpretation Comments Urine Opiates Screen (test code = 35519-4) NEGATIVE NEGATIVE ALL TESTS PERFORMED MANUALLY ON [facility] TOX/SEE TESTUvalde Memorial HospitalBarbiturates screen, qwvxi3275-69-39 02:00:00* Test Item Value Reference Range Interpretation Comments Urine Barbiturates Screen (test code = 984075256) NEGATIVE NEGA TIVE [facility] HospitalUrine phencyclidine detection by screening iiigqh3449-66-93 02:00:00* Test Item Value Reference Range Interpretation Comments Urine Phencyclidine Screen (test code = 42789-5) NEGATIVE NEGAT RHIANNA [facility] HospitalUrine amphetamines detection by screen method > 1000 ng/pW5345-17-83 02:00:00* Test Item Value Reference Range Interpretation Comments Urine Amphetamines Screen (test code = 82754-8) NEGATIVE NEGATI VE [facility] HospitalFluoroscopic procedure less than one hour egmrrzpx9565-93-96 02:00:00* Test Item Value Reference Range Interpretation Comments Urine Methamphetamines Screen (test code = Urine Metha mphetamines Screen) NEGATIVE NEGATIVE [facility] HospitalUrine benzodiazepines detection by screening gcrzip4193-57-00 02:00:00* Test Item Value Reference Range Interpretation Comments Urine Benzodiazepines Screen (test code = 73029-1) NEGATIVE NEG ATIVE [facility] HospitalUrine cocaine measurement (mass/volume) 2020-02-28 02:00:00* Test Item Value Reference Range Interpretation Comments Urine Cocaine Screen (test code = 3398-5) NEGATIVE NEGATIVE [facility] HospitalUrine cannabinoids detection by screening vqxfjy5359-87-84 02:00:00* Test Item Value Reference Range Interpretation Comments Urine Cannabinoids Screen (test code = 34438-4) NEGATIVE NEGATI VE THESE RESULTS ARE FOR MEDICAL TREATMENT ONLYTHIS REPORT CONTAINS UNCONFIR MED SCREENING RESULTS*POSITIVE RESULTS WILL BE CONFIRMED BY REFERENCE LAB UPON R EQUEST CUT-OFFDRUG CLASS CONCENTRATION ng/mLAmphetamines 1000Methamphetamines 1000Cocaine 300Opiate 300Phencyc lidine 25Cannabinoid 50Barbiturates 300Benzodiazepine 300Methadone 300[facility] WorthUrine methadone ahmfds1819-33-20 02:00:00* Test Item Value Reference Range Interpretation Comments Urine Methadone Screen (test code = 68024-4) NEGATIVE NEGATIVE THESE RESULTS ARE FOR MEDICAL TREATMENT ONLYTHIS REPORT CONTAINS UNCONFIR MED SCREENING RESULTS*POSITIVE RESULTS WILL BE CONFIRMED BY REFERENCE LAB UPON R EQUEST CUT-OFFDRUG CLASS CONCENTRATION ng/mLAmphetamines 1000Methamphetamines 1000Cocaine Metabolite 300Opiate 300Phencyc lidine 25Cannabinoid 50Barbiturates 300Benzodiazepine 300Methadone 300[facility] WorthUrine urobilinogen measurement by test strip (mass/volume)2020-02-28 02:00:00* Test Item Value Reference Range Interpretation Comments Urine Urobilinogen (test code = 59653-3) 0.2 0.2-1 [facility] HospitalUrine total bilirubin measurement (mass/volume)2020-02-28 02:00:00* Test Item Value Reference Range Interpretation Comments Urine Bilirubin (test code = 1978-6) NEGATIVE NEGATIVE [facility] HospitalUrine erythrocytes qnrmshovt8273-32-20 02:00:00* Test Item Value Reference Range Interpretation Comments Urine Blood (test code = 52948-3) NEGATIVE NEGATIVE [facility] HospitalAutomated urine sediment leukocyte count by microscopy (number/high power field)2020-02-28 02:00:00* Test Item Value Reference Range Interpretation Comments Urine WBC (test code = 5821-4) 0-5 0-5 [facility] HospitalErythrocytes detection in urine sediment by light brpytthugp9255-18-69 02:00:00* Test Item Value Reference Range Interpretation Comments Urine RBC (test code = 45898-2) 0-5 0-5 [facility] HospitalBacteria detection in urine sediment by light ghzurprdmq3233-45-28 02:00:00* Test Item Value Reference Range Interpretation Comments Urine Bacteria (test code = 18072-6) FEW NONE [facility] HospitalEpithelial cells detection in urine sediment by light vvaugoeptr5101-66-93 02:00:00* Test Item Value Reference Range Interpretation Comments Urine Epithelial Cells (test code = 32560-7) FEW NONE [facility] HospitalHyaline casts detection in urine sediment by light oryusgrwtr4702-16-39 02:00:00* Test Item Value Reference Range Interpretation Comments Urine Hyaline Casts (test code = 64476-5) 2-5 0-1 [facility] HospitalMucus detection in urine sediment by light hjoyfrynxx6792-94-75 02:00:00* Test Item Value Reference Range Interpretation Comments Urine Mucus (test code = 8247-9) FEW RARE [facility] HospitalFluoroscopic procedure less than one hour tvyuzeaq4418-00-33 02:00:00* Test Item Value Reference Range Interpretation Comments Lactic Acid Level (test code = Lactic Acid Level) 3.6 0.5- 2.0 Results repeated and called to DO SCHROEDER DO at 0248 on 02/28/20 by [facility]. Read back and verified.[facility] HospitalBlood culture 2020-02-28 02:00:00* Test Item Value Reference Range Interpretation Comments Blood Culture (test code = 41258849) NO GROWTH AFTER 5 DAYS, FINAL REPORT [facility] leukocytes automated count (number/volume)2020-02-28 00:48:00* Test Item Value Reference Range Interpretation Comments White Blood Count (test code = 6690-2) 17.06 4.8-10.8 [facility] erythrocytes automated count (number/volume)2020-02-28 00:48:00* Test Item Value Reference Range Interpretation Comments Red Blood Count (test code = 789-8) 4.47 3.6-5.1 [facility] hemoglobin measurement (moles/volume)2020-02-28 00:48:00* Test Item Value Reference Range Interpretation Comments Hemoglobin (test code = 58483-5) 9.7 12.0-16.0 [facility] HospitalAutomated blood hematocrit (volume fraction)2020-02-28 00:48:00* Test Item Value Reference Range Interpretation Comments Hematocrit (test code = 4544-3) 33.9 34.2-44.1 [facility] HospitalAutomated erythrocyte mean corpuscular xohdoq8325-40-29 00:48:00* Test Item Value Reference Range Interpretation Comments Mean Corpuscular Volume (test code = 787-2) 75.8 81-99 [facility] HospitalAutomated erythrocyte mean corpuscular hemoglobin (mass per erythrocyte)2020-02-28 00:48:00* Test Item Value Reference Range Interpretation Comments Mean Corpuscular Hemoglobin (test code = 785-6) 21.7 28-32 [facility] HospitalAutomated erythrocyte mean corpuscular hemoglobin concentration measurement (mass/volume)2020-02-28 00:48:00* Test Item Value Reference Range Interpretation Comments Mean Corpuscular Hemoglobin Concent (test code = 786-4) 28.6 31-35 [facility] HospitalRDW JkjWy-Gez1157-73-30 00:48:00* Test Item Value Reference Range Interpretation Comments Red Cell Distribution Width (test code = 93485-8) 22.3 11.7 -14.4 [facility] HospitalAutomated blood platelet count (count/volume)2020-02-28 00:48:00* Test Item Value Reference Range Interpretation Comments Platelet Count (test code = 777-3) 424 140-360 [facility] HospitalAutomated blood segmented neutrophil count as percentage of total ojmhnvbjpm8228-56-11 00:48:00* Test Item Value Reference Range Interpretation Comments Neutrophils (%) (Auto) (test code = 40651-8) 67.1 38.7-80.0 [facility] HospitalAutomated blood lymphocyte count as percentage ot total rozaraqqod6014-72-20 00:48:00* Test Item Value Reference Range Interpretation Comments Lymphocytes (%) (Auto) (test code = 736-9) 23.2 18.0-39.1 [facility] HospitalAutomated blood monocyte count as percentage of total fwzbyzbxvc5692-15-27 00:48:00* Test Item Value Reference Range Interpretation Comments Monocytes (%) (Auto) (test code = 5905-5) 6.9 4.4-11.3 [facility] HospitalAutomated blood eosinophil count as percentage of total ewwfcytbem0935-16-82 00:48:00* Test Item Value Reference Range Interpretation Comments Eosinophils (%) (Auto) (test code = 713-8) 1.4 0.0-6.0 [facility] HospitalAutomated blood basophil count as percentage of total nqgbmmfmmz4661-80-09 00:48:00* Test Item Value Reference Range Interpretation Comments Basophils (%) (Auto) (test code = 706-2) 0.5 0.0-1.0 [facility] HospitalFluoroscopic procedure less than one hour tzwnrvuh2723-75-39 00:48:00* Test Item Value Reference Range Interpretation Comments IM GRANULOCYTES % (test code = IM GRANULOCYTES %) 0.9 0.0- 1.0 [facility] HospitalAutomated blood neutrophil count 2020-02-28 00:48:00* Test Item Value Reference Range Interpretation Comments Neutrophils # (Auto) (test code = 751-8) 11.5 2.1-6.9 [facility] HospitalBlood lymphocytes count (number/volume) 2020-02-28 00:48:00* Test Item Value Reference Range Interpretation Comments Lymphocytes # (Auto) (test code = 38685-5) 4.0 1.0-3.2 [facility] HospitalBlood monocytes automated count (number/volume)2020-02-28 00:48:00* Test Item Value Reference Range Interpretation Comments Monocytes # (Auto) (test code = 742-7) 1.2 0.2-0.8 [facility] HospitalAutomated blood eosinophil count 2020-02-28 00:48:00* Test Item Value Reference Range Interpretation Comments Eosinophils # (Auto) (test code = 711-2) 0.2 0.0-0.4 [facility] HospitalAutomated blood basophil count (count/volume)2020-02-28 00:48:00* Test Item Value Reference Range Interpretation Comments Basophils # (Auto) (test code = 704-7) 0.1 0.0-0.1 [facility] HospitalFluoroscopic procedure less than one hour anveczge1578-14-83 00:48:00* Test Item Value Reference Range Interpretation Comments Absolute Immature Granulocyte (auto (romelia t code = Absolute Immature Granulocyte (auto) 0.16 0-0.1 [facility] or plasma sodium measurement (moles/volume)2020-02-28 00:48:00* Test Item Value Reference Range Interpretation Comments Sodium Level (test code = 2951-2) 142 136-145 [facility]um or plasma potassium measurement (moles/volume)2020-02-28 00:48:00* Test Item Value Reference Range Interpretation Comments Potassium Level (test code = 2823-3) 3.9 3.5-5.1 [facility]um or plasma chloride measurement (moles/volume)2020-02-28 00:48:00* Test Item Value Reference Range Interpretation Comments Chloride Level (test code = 2075-0) 100 98-107 [facility]um or plasma carbon dioxide, total measurement (moles/volume)2020-02-28 00:48:00* Test Item Value Reference Range Interpretation Comments Carbon Dioxide Level (test code = 2028-9) 31 22-29 [facility]um or plasma anion sxc9830-67-11 00:48:00* Test Item Value Reference Range Interpretation Comments Anion Gap (test code = 56036-9) 14.9 8-16 [facility] or plasma urea nitrogen measurement (mass/volume)2020-02-28 00:48:00* Test Item Value Reference Range Interpretation Comments Blood Urea Nitrogen (test code = 3094-0) 18 7-26 [facility]um or plasma creatinine measurement (mass/volume)2020-02-28 00:48:00* Test Item Value Reference Range Interpretation Comments Creatinine (test code = 2160-0) 0.78 0.57-1.11 [facility]um or plasma urea nitrogen/creatinine mass jjfdm6053-75-91 00:48:00* Test Item Value Reference Range Interpretation Comments BUN/Creatinine Ratio (test code = 3097-3) 23 6-25 [facility] HospitalEstimated glomerular filtration rate (GFR) dllhcosnvlzad8519-06-90 00:48:00* Test Item Value Reference Range Interpretation Comments Estimat Glomerular Filtration Rate (test code = 234403202) > 60 >60 Ranges were taken from the National Kidney Disease Education Program and the [facility] literature.Reference ranges:60 or greater: Xgwugt55-86 ( for 3 consecutive months): Chronic kidney disease 15 or less: Kidney failureUvalde Memorial HospitalGlucose nlkmxcrlmbd5237-95-07 00:48:00* Test Item Value Reference Range Interpretation Comments Glucose Level (test code = JVC7569) 15 74-118 Results repeated and called to ED ESPINAL RN at 0119 on 02/28/20 by [facility]. Read back and verified.[facility]um or plasma calcium measurement (mass/volume)2020-02-28 00:48:00* Test Item Value Reference Range Interpretation Comments Calcium Level (test code = 63944-0) 9.7 8.4-10.2 [facility]um or plasma total bilirubin measurement (mass/volume)2020-02-28 00:48:00* Test Item Value Reference Range Interpretation Comments Total Bilirubin (test code = 1975-2) 0.1 0.2-1.2 [facility] HospitalFluoroscopic procedure less than one hour rmeryvnh2022-59-37 00:48:00* Test Item Value Reference Range Interpretation Comments Aspartate Amino Transf (AST/SGOT) (test code = Aspartate Amino Transf (AST/SGOT)) 13 5-34 [facility]um or plasma alanine aminotransferase measurement (enzymatic activity/volume)2020-02-28 00:48:00* Test Item Value Reference Range Interpretation Comments Alanine Aminotransferase (ALT/SGPT) (test code = 1742-6) 9 0-55 [facility]um or plasma protein measurement (mass/volume)2020-02-28 00:48:00* Test Item Value Reference Range Interpretation Comments Total Protein (test code = 2885-2) 7.3 6.5-8.1 [facility] or plasma albumin measurement (mass/volume)2020-02-28 00:48:00* Test Item Value Reference Range Interpretation Comments Albumin (test code = 1751-7) 3.5 3.5-5.0 [facility] HospitalPlasma globulin measurement (mass/volume) 2020-02-28 00:48:00* Test Item Value Reference Range Interpretation Comments Globulin (test code = 27683-0) 3.8 2.3-3.5 [facility] or plasma albumin/globulin mass ehlqc5611-35-88 00:48:00* Test Item Value Reference Range Interpretation Comments Albumin/Globulin Ratio (test code = 1759-0) 0.9 0.8-2.0 [facility] or plasma alkaline phosphatase measurement (enzymatic activity/volume)2020-02-28 00:48:00* Test Item Value Reference Range Interpretation Comments Alkaline Phosphatase (test code = 6768-6) 136 40-150 [facility] or plasma creatine kinase measurement (enzymatic activity/volume)2020-02-28 00:48:00* Test Item Value Reference Range Interpretation Comments Creatine Kinase (test code = 2157-6) 140 29-168 [facility] or plasma creatine kinase MB measurement (mass/volume)2020-02-28 00:48:00* Test Item Value Reference Range Interpretation Comments Creatine Kinase MB (test code = 53498-9) 3.50 0-5.0 [facility] HospitalTroponin I measurement by highly sensitive enzyme grevamylhbb8658-69-41 00:48:00* Test Item Value Reference Range Interpretation Comments Troponin I (test code = 89025-8) < 0.001 0-0.300 [facility] or plasma ethanol measurement (mass/volume)2020-02-28 00:48:00* Test Item Value Reference Range Interpretation Comments Ethyl Alcohol Level (test code = 5643-2) < 10.0 0.0-10.0 [facility] HospitalBlood leukocytes automated count (number/volume)2020-02-28 00:48:00* Test Item Value Reference Range Interpretation Comments White Blood Count (test code = 6690-2) 17.06 4.8-10.8 [facility] HospitalBlood erythrocytes automated count (number/volume)2020-02-28 00:48:00* Test Item Value Reference Range Interpretation Comments Red Blood Count (test code = 789-8) 4.47 3.6-5.1 [facility] HospitalBlood hemoglobin measurement (moles/volume)2020-02-28 00:48:00* Test Item Value Reference Range Interpretation Comments Hemoglobin (test code = 57033-5) 9.7 12.0-16.0 [facility] HospitalAutomated blood hematocrit (volume fraction)2020-02-28 00:48:00* Test Item Value Reference Range Interpretation Comments Hematocrit (test code = 4544-3) 33.9 34.2-44.1 [facility] HospitalAutomated erythrocyte mean corpuscular eafrzw3561-80-47 00:48:00* Test Item Value Reference Range Interpretation Comments Mean Corpuscular Volume (test code = 787-2) 75.8 81-99 [facility] HospitalAutomated erythrocyte mean corpuscular hemoglobin (mass per erythrocyte)2020-02-28 00:48:00* Test Item Value Reference Range Interpretation Comments Mean Corpuscular Hemoglobin (test code = 785-6) 21.7 28-32 [facility] HospitalAutomated erythrocyte mean corpuscular hemoglobin concentration measurement (mass/volume)2020-02-28 00:48:00* Test Item Value Reference Range Interpretation Comments Mean Corpuscular Hemoglobin Concent (test code = 786-4) 28.6 31-35 [facility] HospitalRDW NvbQf-Pnf8376-87-30 00:48:00* Test Item Value Reference Range Interpretation Comments Red Cell Distribution Width (test code = 09682-3) 22.3 11.7 -14.4 [facility] HospitalAutomated blood platelet count (count/volume)2020-02-28 00:48:00* Test Item Value Reference Range Interpretation Comments Platelet Count (test code = 777-3) 424 140-360 [facility] HospitalAutomated blood segmented neutrophil count as percentage of total zqvtdqarsq6590-43-81 00:48:00* Test Item Value Reference Range Interpretation Comments Neutrophils (%) (Auto) (test code = 62075-5) 67.1 38.7-80.0 [facility] HospitalAutomated blood lymphocyte count as percentage ot total bzdikxeaxa7034-71-96 00:48:00* Test Item Value Reference Range Interpretation Comments Lymphocytes (%) (Auto) (test code = 736-9) 23.2 18.0-39.1 [facility] HospitalAutomated blood monocyte count as percentage of total bndpzzjntf1685-30-06 00:48:00* Test Item Value Reference Range Interpretation Comments Monocytes (%) (Auto) (test code = 5905-5) 6.9 4.4-11.3 [facility] HospitalAutomated blood eosinophil count as percentage of total bygmcpbqee5660-00-11 00:48:00* Test Item Value Reference Range Interpretation Comments Eosinophils (%) (Auto) (test code = 713-8) 1.4 0.0-6.0 [facility] HospitalAutomated blood basophil count as percentage of total hpkhussfrr1940-89-19 00:48:00* Test Item Value Reference Range Interpretation Comments Basophils (%) (Auto) (test code = 706-2) 0.5 0.0-1.0 [facility] HospitalFluoroscopic procedure less than one hour oiqxhamm4281-65-56 00:48:00* Test Item Value Reference Range Interpretation Comments IM GRANULOCYTES % (test code = IM GRANULOCYTES %) 0.9 0.0- 1.0 [facility] HospitalAutomated blood neutrophil count 2020-02-28 00:48:00* Test Item Value Reference Range Interpretation Comments Neutrophils # (Auto) (test code = 751-8) 11.5 2.1-6.9 [facility] HospitalBlood lymphocytes count (number/volume) 2020-02-28 00:48:00* Test Item Value Reference Range Interpretation Comments Lymphocytes # (Auto) (test code = 29817-1) 4.0 1.0-3.2 [facility] HospitalBlood monocytes automated count (number/volume)2020-02-28 00:48:00* Test Item Value Reference Range Interpretation Comments Monocytes # (Auto) (test code = 742-7) 1.2 0.2-0.8 [facility] HospitalAutomated blood eosinophil count 2020-02-28 00:48:00* Test Item Value Reference Range Interpretation Comments Eosinophils # (Auto) (test code = 711-2) 0.2 0.0-0.4 [facility] HospitalAutomated blood basophil count (count/volume)2020-02-28 00:48:00* Test Item Value Reference Range Interpretation Comments Basophils # (Auto) (test code = 704-7) 0.1 0.0-0.1 [facility] HospitalFluoroscopic procedure less than one hour wlbgtqkt2151-81-80 00:48:00* Test Item Value Reference Range Interpretation Comments Absolute Immature Granulocyte (auto (romelia t code = Absolute Immature Granulocyte (auto) 0.16 0-0.1 [facility] or plasma sodium measurement (moles/volume)2020-02-28 00:48:00* Test Item Value Reference Range Interpretation Comments Sodium Level (test code = 2951-2) 142 136-145 [facility] or plasma potassium measurement (moles/volume)2020-02-28 00:48:00* Test Item Value Reference Range Interpretation Comments Potassium Level (test code = 2823-3) 3.9 3.5-5.1 [facility] or plasma chloride measurement (moles/volume)2020-02-28 00:48:00* Test Item Value Reference Range Interpretation Comments Chloride Level (test code = 2075-0) 100 98-107 [facility] or plasma carbon dioxide, total measurement (moles/volume)2020-02-28 00:48:00* Test Item Value Reference Range Interpretation Comments Carbon Dioxide Level (test code = 2028-9) 31 22-29 [facility] or plasma anion xqh5681-84-26 00:48:00* Test Item Value Reference Range Interpretation Comments Anion Gap (test code = 71573-5) 14.9 8-16 [facility] or plasma urea nitrogen measurement (mass/volume)2020-02-28 00:48:00* Test Item Value Reference Range Interpretation Comments Blood Urea Nitrogen (test code = 3094-0) 18 7-26 [facility] or plasma creatinine measurement (mass/volume)2020-02-28 00:48:00* Test Item Value Reference Range Interpretation Comments Creatinine (test code = 2160-0) 0.78 0.57-1.11 [facility] or plasma urea nitrogen/creatinine mass swhub4072-47-28 00:48:00* Test Item Value Reference Range Interpretation Comments BUN/Creatinine Ratio (test code = 3097-3) 23 6-25 [facility] HospitalEstimated glomerular filtration rate (GFR) mpnbtqmjxvylr3409-19-40 00:48:00* Test Item Value Reference Range Interpretation Comments Estimat Glomerular Filtration Rate (test code = 214063452) > 60 >60 Ranges were taken from the National Kidney Disease Education Program and the [facility] Kidney Foundation literature.Reference ranges:60 or greater: Moyqtg21-43 ( for 3 consecutive months): Chronic kidney disease 15 or less: Kidney failureUvalde Memorial HospitalGlucose rdjvmjncvwx3116-25-77 00:48:00* Test Item Value Reference Range Interpretation Comments Glucose Level (test code = TNR5846) 15 74-118 Results repeated and called to ED ESPINAL RN at 0119 on 02/28/20 by Mann Cordon. Read back and verified.[facility] or plasma calcium measurement (mass/volume)2020-02-28 00:48:00* Test Item Value Reference Range Interpretation Comments Calcium Level (test code = 91935-4) 9.7 8.4-10.2 [facility] or plasma total bilirubin measurement (mass/volume)2020-02-28 00:48:00* Test Item Value Reference Range Interpretation Comments Total Bilirubin (test code = 1975-2) 0.1 0.2-1.2 [facility] HospitalFluoroscopic procedure less than one hour xsthouxe5744-23-08 00:48:00* Test Item Value Reference Range Interpretation Comments Aspartate Amino Transf (AST/SGOT) (test code = Aspartate Amino Transf (AST/SGOT)) 13 5-34 [facility] or plasma alanine aminotransferase measurement (enzymatic activity/volume)2020-02-28 00:48:00* Test Item Value Reference Range Interpretation Comments Alanine Aminotransferase (ALT/SGPT) (test code = 1742-6) 9 0-55 [facility] or plasma protein measurement (mass/volume)2020-02-28 00:48:00* Test Item Value Reference Range Interpretation Comments Total Protein (test code = 2885-2) 7.3 6.5-8.1 [facility] or plasma albumin measurement (mass/volume)2020-02-28 00:48:00* Test Item Value Reference Range Interpretation Comments Albumin (test code = 1751-7) 3.5 3.5-5.0 [facility] HospitalPlasma globulin measurement (mass/volume) 2020-02-28 00:48:00* Test Item Value Reference Range Interpretation Comments Globulin (test code = 74756-5) 3.8 2.3-3.5 [facility] or plasma albumin/globulin mass zivby4380-67-68 00:48:00* Test Item Value Reference Range Interpretation Comments Albumin/Globulin Ratio (test code = 1759-0) 0.9 0.8-2.0 [facility] or plasma alkaline phosphatase measurement (enzymatic activity/volume)2020-02-28 00:48:00* Test Item Value Reference Range Interpretation Comments Alkaline Phosphatase (test code = 6768-6) 136 40-150 [facility] or plasma creatine kinase measurement (enzymatic activity/volume)2020-02-28 00:48:00* Test Item Value Reference Range Interpretation Comments Creatine Kinase (test code = 2157-6) 140 29-168 [facility] or plasma creatine kinase MB measurement (mass/volume)2020-02-28 00:48:00* Test Item Value Reference Range Interpretation Comments Creatine Kinase MB (test code = 70310-0) 3.50 0-5.0 [facility] HospitalTroponin I measurement by highly sensitive enzyme eeodtxaiirb1052-66-33 00:48:00* Test Item Value Reference Range Interpretation Comments Troponin I (test code = 85952-9) < 0.001 0-0.300 [facility] or plasma ethanol measurement (mass/volume)2020-02-28 00:48:00* Test Item Value Reference Range Interpretation Comments Ethyl Alcohol Level (test code = 5643-2) < 10.0 0.0-10.0 [facility] HospitalHAND 3+ VIEWS WPXI8916-91-88 23:32:00 [place] [address] Patient Name: STEPHANIE CAMERON MR #: [id number] : 1960 Age/Sex: 59/F Req #: [id number] Adm Physician: Ordered by: DO SCHROEDER DO Report #: [id number] Location: ER Room/Bed: Procedure: [id number] DX/HAND 3+ VIEW S LEFT Exam Date: [...] Transcribed By: SCOTT on 02/27/202331 COPY TO: OD TORRES DO VQ LUNG SCAN VENT NSSLJGWZE5149-72-38 22:44:00 [place] [address] Patient Name: STEPHANIE CAMERON MR #: [id number] : 1960 Age/Sex: 59/F Req #: [id number] Adm Physician: Ordered by: DO GUTIERREZ DIRECTOR COMPLIANCE Report #: [id number] Location: ER Room/Bed: Procedure: [id number] N M/VQ LUNG SCAN VENT PERFUSION Exam [...] By: SCOTT on 12/23/192248 C OPY TO: DO GUTIERREZ NP Creatine Kinase IK1079-45-05 19:29:00* Test Item Value Reference Range Interpretation Comments Creatine Kinase MB (test code = 16517-0) 2.00 0-5.0 [facility] HospitalTroponin Y5563-21-21 19:29:00* Test Item Value Reference Range Interpretation Comments Troponin I (test code = KDV3633) 0.008 0-0.300 [facility] HospitalThyroid Stimulating Hormone (TSH) 2019-12-23 19:29:00* Test Item Value Reference Range Interpretation Comments Thyroid Stimulating Hormone (TSH) (test code = 93579-8) 0.177 0.350-4.940 L [facility] HospitalCHEST SINGLE (PORTABLE)2019-12-23 19:25:00 [facility] [address] [address] Patient Name: STEPHANIE CAMERON MR #: [id number] : 1960 Age/Sex: 59/F Req #: [id number] Adm Physician: Ordered by: DO GUTIERREZ NP Report #: [id number] Location: ER Room/Bed: Procedure: [id number] D X/CHEST SINGLE (PORTABLE) Exam Date: 12/23/19 Exam T ifrah: 184 REPORT STATUS: Signed EXAMINATION: CHEST SINGLE (PORTABLE) COMPARISON: Chest x-ray 12/22/2019 INDICATION: Shortness of breath, chest pain ERMD ORDER [id number] Y DISCUSSION: Frontal view of the [...] Comments D-Dimer Quantitative (PE/DVT) (test code = 49229-4) 0.47 0. 00-0.45 H As with all in vitro diagnostic tests, the test results should be interpreted by the physician in conjunction with clinical findings and other test results.Test results are reported in NEW D-dimer units(ug/mLFEU).[facility] HospitalProthrombin Ycwn7112-77-40 19:04:00* Test Item Value Reference Range Interpretation Comments Prothrombin Time (test code = 5902-2) 12.1 11.9-14.5 [facility] HospitalProthromb Time International Ratio 2019-12-23 19:04:00* Test Item Value Reference Range Interpretation Comments Prothromb Time International Ratio (test code = 6301-6) 0.85 Oral Anticoagulant Therapy INR Values:1. Low Intensity Therapy 1.5 - 2.02 . Moderate Intensity Therapy 2.0 - 3.03. High Intensity Therapy(1) 2.5 - 3. 54. High Intensity Therapy(2) 3.0 - 4.05. Panic Value INR > 5.0 [facility] HospitalActivated Partial Thromboplast Time 2019-12-23 19:04:00* Test Item Value Reference Range Interpretation Comments Activated Partial Thromboplast Time (test code = 23701-6) 30.6 23.8-35.5 [facility]odium Edjdm9490-93-68 19:03:00* Test Item Value Reference Range Interpretation Comments Sodium Level (test code = 2951-2) 142 136-145 [facility] HospitalPotassium Dryjv2287-18-88 19:03:00* Test Item Value Reference Range Interpretation Comments Potassium Level (test code = 2823-3) 4.8 3.5-5.1 [facility] HospitalChloride Wyhiw9149-82-18 19:03:00* Test Item Value Reference Range Interpretation Comments Chloride Level (test code = 2075-0) 105 98-107 [facility] HospitalCarbon Dioxide Hpomx4962-32-01 19:03:00* Test Item Value Reference Range Interpretation Comments Carbon Dioxide Level (test code = 2028-9) 27 22-29 [facility] HospitalAnion Xmj6586-59-38 19:03:00* Test Item Value Reference Range Interpretation Comments Anion Gap (test code = 35339-3) 14.8 8-16 [facility] HospitalBlood Urea Wbdqanca3123-01-48 19:03:00* Test Item Value Reference Range Interpretation Comments Blood Urea Nitrogen (test code = 3094-0) 15 7-26 [facility] HospitalCreatinine2020-02-23 19:03:00* Test Item Value Reference Range Interpretation Comments Creatinine (test code = 2160-0) 0.90 0.57-1.11 [facility] HospitalBUN/Creatinine Fwjpg9368-04-27 19:03:00* Test Item Value Reference Range Interpretation Comments BUN/Creatinine Ratio (test code = 3097-3) 17 6- [facility] HospitalEstimat Glomerular Filtration Rate 2019-12-23 19:03:00* Test Item Value Reference Range Interpretation Comments Estimat Glomerular Filtration Rate (test code = 613272212) > 60 >60 Ranges were taken from the National Kidney Disease Education Program and the [facility] Kid[facility] Foundation literature.Reference ranges:60 or greater: Eafkos64-61 ( for 3 consecutive months): Chronic kidney disease 15 or less: Kidney failureUvalde Memorial HospitalGlucose Cpffx1135-94-41 19:03:00* Test Item Value Reference Range Interpretation Comments Glucose Level (test code = KEG1387) 157 74-118 H [facility] HospitalCalcium Bvpuc9744-34-33 19:03:00* Test Item Value Reference Range Interpretation Comments Calcium Level (test code = 89555-6) 9.7 8.4-10.2 [facility] HospitalTotal Cmqdaauat9909-45-56 19:03:00* Test Item Value Reference Range Interpretation Comments Total Bilirubin (test code = 1975-2) 0.2 0.2-1.2 [facility] HospitalAspartate Amino Transf (AST/SGOT) 2019-12-23 19:03:00* Test Item Value Reference Range Interpretation Comments Aspartate Amino Transf (AST/SGOT) (test code = Aspartate Amino Transf (AST/SGOT)) 10 5-34 [facility] HospitalAlanine Aminotransferase (ALT/SGPT) 2019-12-23 19:03:00* Test Item Value Reference Range Interpretation Comments Alanine Aminotransferase (ALT/SGPT) (test code = 1742-6) 6 0-55 [facility] HospitalTotal Uiraudc9285-74-29 19:03:00* Test Item Value Reference Range Interpretation Comments Total Protein (test code = 2885-2) 6.9 6.5-8.1 [facility] HospitalAlbumin2020-02-23 19:03:00* Test Item Value Reference Range Interpretation Comments Albumin (test code = 1751-7) 3.5 3.5-5.0 [facility] HospitalGlobulin2020-02-23 19:03:00* Test Item Value Reference Range Interpretation Comments Globulin (test code = 74295-8) 3.4 2.3-3.5 [facility] HospitalAlbumin/Globulin Rqsau2605-36-45 19:03:00 * Test Item Value Reference Range Interpretation Comments Albumin/Globulin Ratio (test code = 1759-0) 1.0 0.8-2.0 [facility] HospitalAlkaline Ulpwfimwguy4534-60-03 19:03:00* Test Item Value Reference Range Interpretation Comments Alkaline Phosphatase (test code = 6768-6) 153 40-150 H [facility] HospitalCreatine Jilcbn7534-59-75 19:03:00* Test Item Value Reference Range Interpretation Comments Creatine Kinase (test code = 2157-6) 60 29-168 [facility] HospitalWhite Blood Ohusq3441-79-63 18:46:00* Test Item Value Reference Range Interpretation Comments White Blood Count (test code = 6690-2) 12.67 4.8-10.8 H [facility] HospitalRed Blood Xuymn9759-01-79 18:46:00* Test Item Value Reference Range Interpretation Comments Red Blood Count (test code = 789-8) 4.34 3.6-5.1 [facility] HospitalHemoglobin2020-02-23 18:46:00* Test Item Value Reference Range Interpretation Comments Hemoglobin (test code = 61757-9) 9.6 12.0-16.0 L [facility] HospitalHematocrit2020-02-23 18:46:00* Test Item Value Reference Range Interpretation Comments Hematocrit (test code = 4544-3) 33.6 34.2-44.1 L [facility] HospitalMean Corpuscular Blpggi4134-25-85 18:46:00* Test Item Value Reference Range Interpretation Comments Mean Corpuscular Volume (test code = 787-2) 77.4 81-99 L [facility] HospitalMean Corpuscular Kcstvyriwz2066-61-17 18:46:00* Test Item Value Reference Range Interpretation Comments Mean Corpuscular Hemoglobin (test code = 785-6) 22.1 28-32 L [facility] HospitalMean Corpuscular Hemoglobin Concent 2019-12-23 18:46:00* Test Item Value Reference Range Interpretation Comments Mean Corpuscular Hemoglobin Concent (test code = 786-4) 28.6 31-35 L [facility] HospitalRed Cell Distribution Pujtp5780-81-14 18:46:00* Test Item Value Reference Range Interpretation Comments Red Cell Distribution Width (test code = 87965-2) 18.7 11.7 -14.4 H [facility] HospitalPlatelet Pjwqa1243-00-94 18:46:00* Test Item Value Reference Range Interpretation Comments Platelet Count (test code = 777-3) 362 140-360 H [facility] HospitalNeutrophils (%) (Auto)2019-12-23 18:46:00 * Test Item Value Reference Range Interpretation Comments Neutrophils (%) (Auto) (test code = 72996-6) 60.4 38.7-80.0 [facility] HospitalLymphocytes (%) (Auto)2019-12-23 18:46:00 * Test Item Value Reference Range Interpretation Comments Lymphocytes (%) (Auto) (test code = 736-9) 29.9 18.0-39.1 [facility] HospitalMonocytes (%) (Auto)2019-12-23 18:46:00* Test Item Value Reference Range Interpretation Comments Monocytes (%) (Auto) (test code = 5905-5) 5.1 4.4-11.3 [facility] HospitalEosinophils (%) (Auto)2019-12-23 18:46:00 * Test Item Value Reference Range Interpretation Comments Eosinophils (%) (Auto) (test code = 713-8) 3.8 0.0-6.0 [facility] HospitalBasophils (%) (Auto)2019-12-23 18:46:00* Test Item Value Reference Range Interpretation Comments Basophils (%) (Auto) (test code = 706-2) 0.4 0.0-1.0 [facility] HospitalIM GRANULOCYTES %2019-12-23 18:46:00* Test Item Value Reference Range Interpretation Comments IM GRANULOCYTES % (test code = IM GRANULOCYTES %) 0.4 0.0- 1.0 [facility] HospitalNeutrophils # (Auto)2019-12-23 18:46:00* Test Item Value Reference Range Interpretation Comments Neutrophils # (Auto) (test code = 751-8) 7.7 2.1-6.9 H [facility] HospitalLymphocytes # (Auto)2019-12-23 18:46:00* Test Item Value Reference Range Interpretation Comments Lymphocytes # (Auto) (test code = 51904-8) 3.8 1.0-3.2 H [facility] HospitalMonocytes # (Auto)2019-12-23 18:46:00* Test Item Value Reference Range Interpretation Comments Monocytes # (Auto) (test code = 742-7) 0.6 0.2-0.8 [facility] HospitalEosinophils # (Auto)2019-12-23 18:46:00* Test Item Value Reference Range Interpretation Comments Eosinophils # (Auto) (test code = 711-2) 0.5 0.0-0.4 H [facility] HospitalBasophils # (Auto)2019-12-23 18:46:00* Test Item Value Reference Range Interpretation Comments Basophils # (Auto) (test code = 704-7) 0.1 0.0-0.1 [facility] HospitalAbsolute Immature Granulocyte (auto 2019-12-23 18:46:00* Test Item Value Reference Range Interpretation Comments Absolute Immature Granulocyte (auto (romelia t code = Absolute Immature Granulocyte (auto) 0.05 0-0.1 [facility] HospitalProthrombin time (PT) in platelet poor plasma by coagulation vkcta6525-31-49 17:33:00* Test Item Value Reference Range Interpretation Comments Prothrombin Time (test code = 5902-2) 12.1 11.9-14.5 [facility] HospitalINR in Platelet poor plasma by Coagulation bkzfj2825-46-06 17:33:00* Test Item Value Reference Range Interpretation Comments Prothromb Time International Ratio (test code = 6301-6) 0.85 Oral Anticoagulant Therapy INR Values:1. Low Intensity Therapy 1.5 - 2.02 . Moderate Intensity Therapy 2.0 - 3.03. High Intensity Therapy(1) 2.5 - 3. 54. High Intensity Therapy(2) 3.0 - 4.05. Panic Value INR > 5.0 [facility] HospitalActivated partial thromboplastin time (aPTT) in platelet poor plasma by coagulation qtzyg4141-77-17 17:33:00* Test Item Value Reference Range Interpretation Comments Activated Partial Thromboplast Time (test code = 42614-8) 30.6 23.8-35.5 [facility] HospitalFibrin D-dimer DDU measurement in platelet poor plasma (mass/volume)2019-12-23 17:33:00* Test Item Value Reference Range Interpretation Comments D-Dimer Quantitative (PE/DVT) (test code = 24277-3) 0.47 0. 00-0.45 As with all in vitro diagnostic tests, the test results should be interpreted by the physician in conjunction with clinical findings and other test results.Test results are reported in NEW D-dimer units(ug/mLFEU).[facility] or plasma thyrotropin measurement by detection limit <= 0.005 miu/l (units/volume)2019-12-23 17:33:00* Test Item Value Reference Range Interpretation Comments Thyroid Stimulating Hormone (TSH) (test code = 30666-9) 0.177 0.350-4.940 [facility] HospitalProthrombin time (PT) in platelet poor plasma by coagulation ymgst7493-63-74 17:33:00* Test Item Value Reference Range Interpretation Comments Prothrombin Time (test code = 5902-2) 12.1 11.9-14.5 [facility] HospitalINR in Platelet poor plasma by Coagulation fpixl7533-33-63 17:33:00* Test Item Value Reference Range Interpretation Comments Prothromb Time International Ratio (test code = 6301-6) 0.85 Oral Anticoagulant Therapy INR Values:1. Low Intensity Therapy 1.5 - 2.02 . Moderate Intensity Therapy 2.0 - 3.03. High Intensity Therapy(1) 2.5 - 3. 54. High Intensity Therapy(2) 3.0 - 4.05. Panic Value INR > 5.0 [facility] HospitalActivated partial thromboplastin time (aPTT) in platelet poor plasma by coagulation cutfb0808-81-97 17:33:00* Test Item Value Reference Range Interpretation Comments Activated Partial Thromboplast Time (test code = 24691-4) 30.6 23.8-35.5 [facility] HospitalFibrin D-dimer DDU measurement in platelet poor plasma (mass/volume)2019-12-23 17:33:00* Test Item Value Reference Range Interpretation Comments D-Dimer Quantitative (PE/DVT) (test code = 46236-1) 0.47 0. 00-0.45 As with all in vitro diagnostic tests, the test results should be interpreted by the physician in conjunction with clinical findings and other test results.Test results are reported in NEW D-dimer units(ug/mLFEU).[facility] Dallaserum or plasma thyrotropin measurement by detection limit <= 0.005 miu/l (units/volume)2019-12-23 17:33:00* Test Item Value Reference Range Interpretation Comments Thyroid Stimulating Hormone (TSH) (test code = 00783-7) 0.177 0.350-4.940 [facility] HospitalBedside Mbbqbiq4668-82-51 15:42:00* Test Item Value Reference Range Interpretation Comments Bedside Glucose (test code = 16116-1) 244 70-120 H Meter ID: [id number] Memorial HospitalHypochromasia 2019-12-22 19:20:00* Test Item Value Reference Range Interpretation Comments Hypochromasia (test code = 728-6) SLIGHT [facility] HospitalRed Cell Morphology Prbsqxe3650-32-54 19:20:00* Test Item Value Reference Range Interpretation Comments Red Cell Morphology Comment (test code = 6742-1) ABNORMAL [facility] HospitalHypochromasia2020-02-22 19:20:00* Test Item Value Reference Range Interpretation Comments Hypochromasia (test code = 728-6) SLIGHT [facility] HospitalRed Cell Morphology Fktoeax0208-92-08 19:20:00* Test Item Value Reference Range Interpretation Comments Red Cell Morphology Comment (test code = 6742-1) ABNORMAL [facility] HospitalCT BRAIN GK2356-48-25 19:00:00 [facility] [address] [place] [address] Patient Name: STEPHANIE CAMERON MR #: [id number] : 1960 Age/Sex: 59/F Req #: [id number] Adm Physician: Ordered by: DO GUTIERREZ DIRECTOR COMPLIANCE Report #: [id number] Location: ER Room/Bed: Procedure: [id number] C T/CT BRAIN WO Exam Date: 12/22/19 [...] 1904 COPY TO: DO GUTIERREZ NP Bedside Hvoxvtv5113-24-83 18:58:00* Test Item Value Reference Range Interpretation Comments Bedside Glucose (test code = 34618-3) 74 70-120 Meter ID: [id number] Scott & White [facility] and [facility]ascular Hospital – Dallasodium Level 2019-12-22 18:48:00* Test Item Value Reference Range Interpretation Comments Sodium Level (test code = 2951-2) 140 136-145 [facility] HospitalPotassium Luojp3591-71-60 18:48:00* Test Item Value Reference Range Interpretation Comments Potassium Level (test code = 2823-3) 3.7 3.5-5.1 [facility] HospitalChloride Swbsc5504-95-01 18:48:00* Test Item Value Reference Range Interpretation Comments Chloride Level (test code = 2075-0) 106 98-107 [facility] HospitalCarbon Dioxide Elxnw2626-85-31 18:48:00* Test Item Value Reference Range Interpretation Comments Carbon Dioxide Level (test code = 2028-9) 27 22-29 [facility] HospitalAnion Xiz4836-92-53 18:48:00* Test Item Value Reference Range Interpretation Comments Anion Gap (test code = 95654-3) 10.7 8-16 [facility] HospitalBlood Urea Gekxtmtp5722-38-50 18:48:00* Test Item Value Reference Range Interpretation Comments Blood Urea Nitrogen (test code = 3094-0) 15 7-26 [facility] HospitalCreatinine2020-02-22 18:48:00* Test Item Value Reference Range Interpretation Comments Creatinine (test code = 2160-0) 0.77 0.57-1.11 [facility] HospitalBUN/Creatinine Dhpno6839-38-13 18:48:00* Test Item Value Reference Range Interpretation Comments BUN/Creatinine Ratio (test code = 3097-3) 19 6-25 [facility] HospitalEstimat Glomerular Filtration Rate 2019-12-22 18:48:00* Test Item Value Reference Range Interpretation Comments Estimat Glomerular Filtration Rate (test code = 146615745) > 60 >60 Ranges were taken from the National Kidney Disease Education Program and the [facility] Foundation literature.Reference ranges:60 or greater: Dcehuk36-11 ( for 3 consecutive months): Chronic kidney disease 15 or less: Kidney failureUvalde Memorial HospitalGlucose Vwuva6713-20-90 18:48:00* Test Item Value Reference Range Interpretation Comments Glucose Level (test code = TBA1956) 39 74-118 LL Results repeated and called to ANGELINA ADAMS at 1847 on 12/22/19 by Phil Allan. Read back and verified.[facility] HospitalCalcium Volja1000-96-10 18:48:00* Test Item Value Reference Range Interpretation Comments Calcium Level (test code = 04067-9) 9.5 8.4-10.2 [facility] HospitalTotal Qmdvhmvxg7605-77-47 18:48:00* Test Item Value Reference Range Interpretation Comments Total Bilirubin (test code = 1975-2) 0.1 0.2-1.2 L [facility] HospitalAspartate Amino Transf (AST/SGOT) 2019-12-22 18:48:00* Test Item Value Reference Range Interpretation Comments Aspartate Amino Transf (AST/SGOT) (test code = Aspartate Amino Transf (AST/SGOT)) 12 5-34 [facility] HospitalAlanine Aminotransferase (ALT/SGPT) 2019-12-22 18:48:00* Test Item Value Reference Range Interpretation Comments Alanine Aminotransferase (ALT/SGPT) (test code = 1742-6) 8 0-55 [facility] HospitalTotal Mztrptk0597-43-54 18:48:00* Test Item Value Reference Range Interpretation Comments Total Protein (test code = 2885-2) 7.1 6.5-8.1 [facility] HospitalAlbumin2020-02-22 18:48:00* Test Item Value Reference Range Interpretation Comments Albumin (test code = 1751-7) 3.5 3.5-5.0 [facility] HospitalGlobulin2020-02-22 18:48:00* Test Item Value Reference Range Interpretation Comments Globulin (test code = 57515-5) 3.6 2.3-3.5 H [facility] HospitalAlbumin/Globulin Vtwkk5582-29-08 18:48:00 * Test Item Value Reference Range Interpretation Comments Albumin/Globulin Ratio (test code = 1759-0) 1.0 0.8-2.0 [facility] HospitalAlkaline Pukydtbyled8856-61-24 18:48:00* Test Item Value Reference Range Interpretation Comments Alkaline Phosphatase (test code = 6768-6) 159 40-150 H [facility] HospitalCreatine Xqfnia4620-45-65 18:48:00* Test Item Value Reference Range Interpretation Comments Creatine Kinase (test code = 2157-6) 44 29-168 [facility] HospitalCreatine Kinase BY8109-76-56 18:48:00* Test Item Value Reference Range Interpretation Comments Creatine Kinase MB (test code = 81575-4) 1.10 0-5.0 [facility] HospitalTroponin K5515-41-09 18:48:00* Test Item Value Reference Range Interpretation Comments Troponin I (test code = RFY9263) < 0.001 0-0.300 [facility] HospitalUrine Txwqm3030-09-01 18:45:00* Test Item Value Reference Range Interpretation Comments Urine Color (test code = 5778-6) YELLOW YELLOW [facility] HospitalUrine Uqvihll4850-46-60 18:45:00* Test Item Value Reference Range Interpretation Comments Urine Clarity (test code = 05342-0) CLEAR CLEAR [facility] HospitalUrine Specific Lpwznvv1450-87-12 18:45:00 * Test Item Value Reference Range Interpretation Comments Urine Specific [place] (test code = 5811-5) 1.010 1.010-1.02 5 [facility] HospitalUrine eC8871-09-01 18:45:00* Test Item Value Reference Range Interpretation Comments Urine pH (test code = 32041-7) 6.5 5-7 [facility] HospitalUrine Leukocyte Qqaehatw0347-16-15 18:45:00* Test Item Value Reference Range Interpretation Comments Urine Leukocyte Esterase (test code = 5799-2) NEGATIVE NEGATIVE [facility] HospitalUrine Srnqqgk0428-87-06 18:45:00* Test Item Value Reference Range Interpretation Comments Urine Nitrite (test code = 71999-1) NEGATIVE NEGATIVE [facility] HospitalUrine Hzqtivl0055-07-89 18:45:00* Test Item Value Reference Range Interpretation Comments Urine Protein (test code = 5804-0) NEGATIVE NEGATIVE [facility] HospitalUrine Glucose (UA)2019-12-22 18:45:00* Test Item Value Reference Range Interpretation Comments Urine Glucose (UA) (test code = 2349-9) NEGATIVE NEGATIVE [facility] HospitalUrine Fyabuqr0654-93-81 18:45:00* Test Item Value Reference Range Interpretation Comments Urine Ketones (test code = 05954-4) NEGATIVE NEGATIVE [facility] Bgowvcmasmaz5373-56-07 18:45:00* Test Item Value Reference Range Interpretation Comments Urine Urobilinogen (test code = 02486-3) 0.2 0.2-1 [facility] HospitalUrine Vnzkygibx7933-96-92 18:45:00* Test Item Value Reference Range Interpretation Comments Urine Bilirubin (test code = 1978-6) NEGATIVE NEGATIVE [facility] Jyihq5710-59-83 18:45:00* Test Item Value Reference Range Interpretation Comments Urine Blood (test code = 40120-5) NEGATIVE NEGATIVE [facility] HospitalUrine MEV1662-04-18 18:45:00* Test Item Value Reference Range Interpretation Comments Urine WBC (test code = 5821-4) 0-5 0-5 [facility] HospitalUrine TSE4014-81-64 18:45:00* Test Item Value Reference Range Interpretation Comments Urine RBC (test code = 37519-9) 0-5 0-5 [facility] HospitalUrine Mxowiauh8072-62-70 18:45:00* Test Item Value Reference Range Interpretation Comments Urine Bacteria (test code = 37872-8) RARE NONE [facility] HospitalUrine Epithelial Dqtel6709-01-28 18:45:00 * Test Item Value Reference Range Interpretation Comments Urine Epithelial Cells (test code = 76285-3) FEW NONE [facility] HospitalUrine Bravm7814-96-86 18:45:00* Test Item Value Reference Range Interpretation Comments Urine Color (test code = 5778-6) YELLOW YELLOW [facility] HospitalUrine Nvxxkus8357-09-26 18:45:00* Test Item Value Reference Range Interpretation Comments Urine Clarity (test code = 72740-5) CLEAR CLEAR [facility] HospitalUrine Specific Aiszpel2720-28-98 18:45:00 * Test Item Value Reference Range Interpretation Comments Urine Specific [place] (test code = 5811-5) 1.010 1.010-1.02 5 [facility] HospitalUrine nV6257-27-95 18:45:00* Test Item Value Reference Range Interpretation Comments Urine pH (test code = 71513-8) 6.5 5-7 [facility] HospitalUrine Leukocyte Hboftywc5500-45-16 18:45:00* Test Item Value Reference Range Interpretation Comments Urine Leukocyte Esterase (test code = 5799-2) NEGATIVE NEGATIVE [facility] HospitalUrine Wztlewb8636-59-95 18:45:00* Test Item Value Reference Range Interpretation Comments Urine Nitrite (test code = 40983-5) NEGATIVE NEGATIVE [facility] HospitalUrine Hkjjnih7737-06-13 18:45:00* Test Item Value Reference Range Interpretation Comments Urine Protein (test code = 5804-0) NEGATIVE NEGATIVE [facility] HospitalUrine Glucose (UA)2019-12-22 18:45:00* Test Item Value Reference Range Interpretation Comments Urine Glucose (UA) (test code = 2349-9) NEGATIVE NEGATIVE [facility] HospitalUrine Wwkcwip3245-73-39 18:45:00* Test Item Value Reference Range Interpretation Comments Urine Ketones (test code = 40407-5) NEGATIVE NEGATIVE [facility] HospitalUrine Yrswroqndxsi7236-56-05 18:45:00* Test Item Value Reference Range Interpretation Comments Urine Urobilinogen (test code = 80192-0) 0.2 0.2-1 [facility] HospitalUrine Ylvhfgzmi8316-76-34 18:45:00* Test Item Value Reference Range Interpretation Comments Urine Bilirubin (test code = 1978-6) NEGATIVE NEGATIVE [facility] HospitalUrine Awnow6017-00-01 18:45:00* Test Item Value Reference Range Interpretation Comments Urine Blood (test code = 51260-0) NEGATIVE NEGATIVE [facility] HospitalUrine MUP7195-70-40 18:45:00* Test Item Value Reference Range Interpretation Comments Urine WBC (test code = 5821-4) 0-5 0-5 [facility] HospitalUrine DZM0612-08-03 18:45:00* Test Item Value Reference Range Interpretation Comments Urine RBC (test code = 51598-4) 0-5 0-5 [facility] HospitalUrine Nqjbdanj2872-07-80 18:45:00* Test Item Value Reference Range Interpretation Comments Urine Bacteria (test code = 47164-2) RARE NONE [facility] HospitalUrine Epithelial Vvsiy0936-48-60 18:45:00 * Test Item Value Reference Range Interpretation Comments Urine Epithelial Cells (test code = 99662-4) FEW NONE [facility] HospitalCHEST SINGLE (PORTABLE)2019-12-22 18:43:00 [facility] [address] [address] Patient Name: STEPHANIE CAMERON MR #: [id number] : 1960 Age/Sex: 59/F Req #: [id number] Adm Physician: Ordered by: OD GUTIERREZ DIRECTOR COMPLIANCE Report #: [id number] Location: ER Room/Bed: Procedure: [id number] D X/CHEST SINGLE (PORTABLE) Exam Date: 12/22/19 Exam T ifrah: 1830 REPORT STATUS: Signed EXAMINATION: CHEST SINGLE (PORTABLE) INDICATION: ERMD ORDER [id number] 1830 Y COMPARISON: None FINDINGS: AP view [...] BARNES MD on 12/22/191842 Transcribed By: Paola IHNSON on 12/22/191842 COPY TO: DO GUTIERREZ NP White Blood Sdvxk8879-45-89 18:18:00* Test Item Value Reference Range Interpretation Comments White Blood Count (test code = 6690-2) 11.92 4.8-10.8 H [facility] HospitalRed Blood Cxeec3540-49-00 18:18:00* Test Item Value Reference Range Interpretation Comments Red Blood Count (test code = 789-8) 4.48 3.6-5.1 [facility] HospitalHemoglobin2020-02-22 18:18:00* Test Item Value Reference Range Interpretation Comments Hemoglobin (test code = 11129-0) 9.9 12.0-16.0 L [facility] HospitalHematocrit2020-02-22 18:18:00* Test Item Value Reference Range Interpretation Comments Hematocrit (test code = 4544-3) 34.6 34.2-44.1 [facility] HospitalMean Corpuscular Cdnfso3548-86-90 18:18:00* Test Item Value Reference Range Interpretation Comments Mean Corpuscular Volume (test code = 787-2) 77.2 81-99 L [facility] HospitalMean Corpuscular Tnwgbukyaa3834-58-24 18:18:00* Test Item Value Reference Range Interpretation Comments Mean Corpuscular Hemoglobin (test code = 785-6) 22.1 28-32 L [facility] HospitalMean Corpuscular Hemoglobin Concent 2019-12-22 18:18:00* Test Item Value Reference Range Interpretation Comments Mean Corpuscular Hemoglobin Concent (test code = 786-4) 28.6 31-35 L [facility] HospitalRed Cell Distribution Aybnp6024-72-35 18:18:00* Test Item Value Reference Range Interpretation Comments Red Cell Distribution Width (test code = 58111-9) 18.7 11.7 -14.4 H [facility] HospitalPlatelet Krlwn0180-51-96 18:18:00* Test Item Value Reference Range Interpretation Comments Platelet Count (test code = 777-3) 372 140-360 H [facility] HospitalNeutrophils (%) (Auto)2019-12-22 18:18:00 * Test Item Value Reference Range Interpretation Comments Neutrophils (%) (Auto) (test code = 36260-9) 81.3 38.7-80.0 H [facility] HospitalLymphocytes (%) (Auto)2019-12-22 18:18:00 * Test Item Value Reference Range Interpretation Comments Lymphocytes (%) (Auto) (test code = 736-9) 11.3 18.0-39.1 L [facility] HospitalMonocytes (%) (Auto)2019-12-22 18:18:00* Test Item Value Reference Range Interpretation Comments Monocytes (%) (Auto) (test code = 5905-5) 4.7 4.4-11.3 [facility] HospitalEosinophils (%) (Auto)2019-12-22 18:18:00 * Test Item Value Reference Range Interpretation Comments Eosinophils (%) (Auto) (test code = 713-8) 1.5 0.0-6.0 [facility] HospitalBasophils (%) (Auto)2019-12-22 18:18:00* Test Item Value Reference Range Interpretation Comments Basophils (%) (Auto) (test code = 706-2) 0.6 0.0-1.0 [facility] HospitalIM GRANULOCYTES %2019-12-22 18:18:00* Test Item Value Reference Range Interpretation Comments IM GRANULOCYTES % (test code = IM GRANULOCYTES %) 0.6 0.0- 1.0 [facility] HospitalNeutrophils # (Auto)2019-12-22 18:18:00* Test Item Value Reference Range Interpretation Comments Neutrophils # (Auto) (test code = 751-8) 9.7 2.1-6.9 H [facility] HospitalLymphocytes # (Auto)2019-12-22 18:18:00* Test Item Value Reference Range Interpretation Comments Lymphocytes # (Auto) (test code = 75783-7) 1.4 1.0-3.2 [facility] HospitalMonocytes # (Auto)2019-12-22 18:18:00* Test Item Value Reference Range Interpretation Comments Monocytes # (Auto) (test code = 742-7) 0.6 0.2-0.8 [facility] HospitalEosinophils # (Auto)2019-12-22 18:18:00* Test Item Value Reference Range Interpretation Comments Eosinophils # (Auto) (test code = 711-2) 0.2 0.0-0.4 [facility] HospitalBasophils # (Auto)2019-12-22 18:18:00* Test Item Value Reference Range Interpretation Comments Basophils # (Auto) (test code = 704-7) 0.1 0.0-0.1 [facility] HospitalAbsolute Immature Granulocyte (auto 2019-12-22 18:18:00* Test Item Value Reference Range Interpretation Comments Absolute Immature Granulocyte (auto (romelia t code = Absolute Immature Granulocyte (auto) 0.07 0-0.1 [facility] HospitalBlsleepy eye [facility] center hypochromia detection by light iygaeczhof1121-66-85 16:50:00* Test Item Value Reference Range Interpretation Comments Hypochromasia (test code = 728-6) SLIGHT [facility] nnalflyxpp3919-45-91 16:50:00* Test Item Value Reference Range Interpretation Comments Red Cell Morphology Comment (test code = 6742-1) ABNORMAL [facility] HospitalBlsleepy eye medical center hypochromia detection by light adgkwhhfuc9020-39-93 16:50:00* Test Item Value Reference Range Interpretation Comments Hypochromasia (test code = 728-6) SLIGHT [facility] jxmqxgtelc5508-50-36 16:50:00* Test Item Value Reference Range Interpretation Comments Red Cell Morphology Comment (test code = 6742-1) ABNORMAL [facility] HospitalBedside Phswdlm7092-78-81 02:23:00* Test Item Value Reference Range Interpretation Comments Bedside Glucose (test code = 79821-7) 122 70-120 H Meter ID: [id number] Scott & White [facility] and [facility]ascular Hospital – Dallasodium Level 2019-10-10 23:11:00* Test Item Value Reference Range Interpretation Comments Sodium Level (test code = 2951-2) 136 136-145 [facility] HospitalPotassium Htieh8091-42-31 23:11:00* Test Item Value Reference Range Interpretation Comments Potassium Level (test code = 2823-3) 4.4 3.5-5.1 [facility] HospitalChloride Aronl0649-01-33 23:11:00* Test Item Value Reference Range Interpretation Comments Chloride Level (test code = 2075-0) 101 98-107 [facility] HospitalCarbon Dioxide Rwjde1062-94-55 23:11:00* Test Item Value Reference Range Interpretation Comments Carbon Dioxide Level (test code = 2028-9) 24 22-29 [facility] HospitalAnion Rkn3835-43-90 23:11:00* Test Item Value Reference Range Interpretation Comments Anion Gap (test code = 18124-0) 15.4 8-16 [facility] HospitalBlood Urea Znrvctwz1477-99-84 23:11:00* Test Item Value Reference Range Interpretation Comments Blood Urea Nitrogen (test code = 3094-0) 17 7-26 [facility] HospitalCreatinine2019-12-11 23:11:00* Test Item Value Reference Range Interpretation Comments Creatinine (test code = 2160-0) 0.91 0.57-1.11 [facility] HospitalBUN/Creatinine Xkgie7246-19-03 23:11:00* Test Item Value Reference Range Interpretation Comments BUN/Creatinine Ratio (test code = 3097-3) 19 6-25 [facility] HospitalEstimat Glomerular Filtration Rate 2019-10-10 23:11:00* Test Item Value Reference Range Interpretation Comments Estimat Glomerular Filtration Rate (test code = 720513513) > 60 >60 Ranges were taken from the National Kidney Disease Education Program and the [facility] Foundation literature.Reference ranges:60 or greater: Yeyjyh81-68 ( for 3 consecutive months): Chronic kidney disease 15 or less: Kidney failureUvalde Memorial HospitalGlucose Hctup3355-25-80 23:11:00* Test Item Value Reference Range Interpretation Comments Glucose Level (test code = XFC0831) 135 74-118 H [facility] HospitalCalcium Kvnst5779-69-66 23:11:00* Test Item Value Reference Range Interpretation Comments Calcium Level (test code = 61648-2) 8.9 8.4-10.2 [facility] HospitalFOOT RIGHT WNGUSYBG9652-73-35 23:11:00 [facility] [address] [address] Patient Name: STEPHANIE CAMERON MR #: [id number] : [birth year] Age/Sex: 59/F Req #: [id number] Adm Physician: Ordered by: MARYLU VALDOVINOS MD Report #: [id number] Location: ER Room/Bed: Procedure: 1211-0 078 DX/FOOT [...] COPY TO: MARYLU VALDOVINOS MD White Blood Xqoht6715-33-49 23:03:00* Test Item Value Reference Range Interpretation Comments White Blood Count (test code = 6690-2) 12.60 4.8-10.8 H [facility] HospitalRed Blood Rutsk5234-87-82 23:03:00* Test Item Value Reference Range Interpretation Comments Red Blood Count (test code = 789-8) 4.53 3.6-5.1 [facility] HospitalHemoglobin2019-12-11 23:03:00* Test Item Value Reference Range Interpretation Comments Hemoglobin (test code = 23056-8) 10.0 12.0-16.0 L [facility] HospitalHematocrit2019-12-11 23:03:00* Test Item Value Reference Range Interpretation Comments Hematocrit (test code = 4544-3) 35.3 34.2-44.1 [facility] HospitalMean Corpuscular Kxdubo5837-19-57 23:03:00* Test Item Value Reference Range Interpretation Comments Mean Corpuscular Volume (test code = 787-2) 77.9 81-99 L [facility] HospitalMean Corpuscular Jyayzbtmrc1096-73-15 23:03:00* Test Item Value Reference Range Interpretation Comments Mean Corpuscular Hemoglobin (test code = 785-6) 22.1 28-32 L [facility] HospitalMean Corpuscular Hemoglobin Concent 2019-10-10 23:03:00* Test Item Value Reference Range Interpretation Comments Mean Corpuscular Hemoglobin Concent (test code = 786-4) 28.3 31-35 L [facility] HospitalRed Cell Distribution Myxea4934-85-13 23:03:00* Test Item Value Reference Range Interpretation Comments Red Cell Distribution Width (test code = 06171-2) 23.8 11.7 -14.4 H [facility] HospitalPlatelet Tcwnr6087-75-30 23:03:00* Test Item Value Reference Range Interpretation Comments Platelet Count (test code = 777-3) 376 140-360 H [facility] HospitalNeutrophils (%) (Auto)2019-10-10 23:03:00 * Test Item Value Reference Range Interpretation Comments Neutrophils (%) (Auto) (test code = 01935-8) 54.3 38.7-80.0 [facility] HospitalLymphocytes (%) (Auto)2019-10-10 23:03:00 * Test Item Value Reference Range Interpretation Comments Lymphocytes (%) (Auto) (test code = 736-9) 36.6 18.0-39.1 [facility] HospitalMonocytes (%) (Auto)2019-10-10 23:03:00* Test Item Value Reference Range Interpretation Comments Monocytes (%) (Auto) (test code = 5905-5) 6.4 4.4-11.3 [facility] HospitalEosinophils (%) (Auto)2019-10-10 23:03:00 * Test Item Value Reference Range Interpretation Comments Eosinophils (%) (Auto) (test code = 713-8) 1.6 0.0-6.0 [facility] HospitalBasophils (%) (Auto)2019-10-10 23:03:00* Test Item Value Reference Range Interpretation Comments Basophils (%) (Auto) (test code = 706-2) 0.5 0.0-1.0 [facility] HospitalIM GRANULOCYTES %2019-10-10 23:03:00* Test Item Value Reference Range Interpretation Comments IM GRANULOCYTES % (test code = IM GRANULOCYTES %) 0.6 0.0- 1.0 [facility] HospitalNeutrophils # (Auto)2019-10-10 23:03:00* Test Item Value Reference Range Interpretation Comments Neutrophils # (Auto) (test code = 751-8) 6.8 2.1-6.9 [facility] HospitalLymphocytes # (Auto)2019-10-10 23:03:00* Test Item Value Reference Range Interpretation Comments Lymphocytes # (Auto) (test code = 98177-4) 4.6 1.0-3.2 H [facility] HospitalMonocytes # (Auto)2019-10-10 23:03:00* Test Item Value Reference Range Interpretation Comments Monocytes # (Auto) (test code = 742-7) 0.8 0.2-0.8 [facility] HospitalEosinophils # (Auto)2019-10-10 23:03:00* Test Item Value Reference Range Interpretation Comments Eosinophils # (Auto) (test code = 711-2) 0.2 0.0-0.4 [facility] HospitalBasophils # (Auto)2019-10-10 23:03:00* Test Item Value Reference Range Interpretation Comments Basophils # (Auto) (test code = 704-7) 0.1 0.0-0.1 [facility] HospitalAbsolute Immature Granulocyte (auto 2019-10-10 23:03:00* Test Item Value Reference Range Interpretation Comments Absolute Immature Granulocyte (auto (romelia t code = Absolute Immature Granulocyte (auto) 0.08 0-0.1 [facility]CHEST 2 [id number] 18:51:00 [place] [address] Patient Name: STEPHANIE CAMERON MR #: [id number] : 1960 Age/Sex: 59/F Req #: [id number] Adm Physician: Ordered by: TED FELIPE DIRECTOR COMPLIANCE Report #: [id number] Location: ER Room/Bed: Procedure: [id number] DX/CHEST 2 VIEWS Exam Date: 07/03/19 Exam [...] FELIPE NP CERVICAL SPINE 4 OR 5 BLWIE6761-34-11 18:51:00 [place] [address] Patient Name: STEPHANIE CAMERON MR #: [id number] : 1960 Age/Sex: 59/F Req #: [id number] Adm Physician: Ordered by: TED FELIPE NP Report #: [id number] Location: ER Room/Bed: Procedure: [id number] DX/CERVICAL SPINE 4 OR 5 VIEWS Exam [...] on 07/03/191851 COPY TO: TED FLOWERS DIRECTOR COMPLIANCE SP LUMBAR, COMPLETE MIN [id number] 18:48:00 [facility] [address] [place] [address] Patient Name: STEPHANIE CAMERON MR #: [id number] : 1960 Age/Sex: 59/F Req #: [id number] Adm Physician: Ordered by: TED FELIPE NP Report #: [id number] Location: ER Room/Bed: Procedure: [id number] DX/SP LUMBAR, COMPLETE MIN 4VW Exam Date: [...] 07/03/191848 COPY TO : TED FELIPE DIRECTOR COMPLIANCE Urine DLI0590-31-67 17:36:00* Test Item Value Reference Range Interpretation Comments Urine WBC (test code = 5821-4) NONE 0-5 [facility] BLV7809-94-63 17:36:00* Test Item Value Reference Range Interpretation Comments Urine RBC (test code = 28080-8) NONE 0-5 [facility] Ltaquows5622-53-18 17:36:00* Test Item Value Reference Range Interpretation Comments Urine Bacteria (test code = 02965-2) FEW NONE [facility] Epithelial Jgpte0667-15-36 17:36:00 * Test Item Value Reference Range Interpretation Comments Urine Epithelial Cells (test code = 99266-7) MODERATE NONE [facility] WTJ3713-87-00 17:36:00* Test Item Value Reference Range Interpretation Comments Urine WBC (test code = 5821-4) NONE 0-5 [facility] QQB8204-07-18 17:36:00* Test Item Value Reference Range Interpretation Comments Urine RBC (test code = 07675-3) NONE 0-5 [facility] Czjlktaf3409-27-64 17:36:00* Test Item Value Reference Range Interpretation Comments Urine Bacteria (test code = 26670-6) FEW NONE [facility] HospitalU[facility] Epithelial Jgwih6185-53-00 17:36:00 * Test Item Value Reference Range Interpretation Comments Urine Epithelial Cells (test code = 89644-8) MODERATE NONE [facility] Hospital[facility] Qtwg0647-97-27 17:34:00* Test Item Value Reference Range Interpretation Comments Urine Test (test code = 2106-3) NEGATIVE NEGATIVE [facility] Bjft3112-77-56 17:34:00* Test Item Value Reference Range Interpretation Comments Urine Test (test code = 2106-3) NEGATIVE NEGATIVE [facility] Leyj4374-01-44 17:34:00* Test Item Value Reference Range Interpretation Comments Urine Test (test code = 2106-3) NEGATIVE NEGATIVE [facility] Qmij0157-87-96 17:34:00* Test Item Value Reference Range Interpretation Comments Urine Test (test code = 2106-3) NEGATIVE NEGATIVE [facility] Hunjn3828-81-70 17:26:00* Test Item Value Reference Range Interpretation Comments Urine Color (test code = 5778-6) YELLOW YELLOW [facility] Awovdvp5580-94-49 17:26:00* Test Item Value Reference Range Interpretation Comments Urine Clarity (test code = 49048-1) CLEAR CLEAR [facility] HospitalU[facility] Specific Uuxpnij2279-54-47 17:26:00 * Test Item Value Reference Range Interpretation Comments Urine Specific [place] (test code = 5811-5) <=1.005 1.010-1.02 5 [facility] uF3040-12-16 17:26:00* Test Item Value Reference Range Interpretation Comments Urine pH (test code = 35526-9) 6.5 5-7 [facility] Leukocyte Qjgtwpxm0333-17-84 17:26:00* Test Item Value Reference Range Interpretation Comments Urine Leukocyte Esterase (test code = 45559-9) NEGATIVE NEGATIV E [facility] Osfjbie6877-70-71 17:26:00* Test Item Value Reference Range Interpretation Comments Urine Nitrite (test code = 08939-8) NEGATIVE NEGATIVE [facility] Bqrzcto3791-62-78 17:26:00* Test Item Value Reference Range Interpretation Comments Urine Protein (test code = 30059-8) NEGATIVE NEGATIVE [facility] Glucose (UA)2019-07-03 17:26:00* Test Item Value Reference Range Interpretation Comments Urine Glucose (UA) (test code = 50824-7) NEGATIVE NEGATIVE [facility] Jnazgjn8003-06-59 17:26:00* Test Item Value Reference Range Interpretation Comments Urine Ketones (test code = 88123-9) NEGATIVE NEGATIVE [facility] Kjemwymyiuyq3426-86-21 17:26:00* Test Item Value Reference Range Interpretation Comments Urine Urobilinogen (test code = 39311-1) 0.2 0.2-1 [facility] Nvrbnxgva9902-66-58 17:26:00* Test Item Value Reference Range Interpretation Comments Urine Bilirubin (test code = 1977-8) NEGATIVE NEGATIVE [facility] Simae0061-92-74 17:26:00* Test Item Value Reference Range Interpretation Comments Urine Blood (test code = 03576-0) NEGATIVE NEGATIVE [facility] Wfcjn3450-58-38 17:26:00* Test Item Value Reference Range Interpretation Comments Urine Color (test code = 5778-6) YELLOW YELLOW [facility] HospitalU[facility] Dbuosuz3420-17-04 17:26:00* Test Item Value Reference Range Interpretation Comments Urine Clarity (test code = 11335-7) CLEAR CLEAR [facility] HospitalU[facility] Specific Bnjaqvb1561-69-63 17:26:00 * Test Item Value Reference Range Interpretation Comments Urine Specific [place] (test code = 5811-5) <=1.005 1.010-1.02 5 [facility] HospitalU[facility] rM4977-32-66 17:26:00* Test Item Value Reference Range Interpretation Comments Urine pH (test code = 49483-2) 6.5 5-7 [facility] Leukocyte Ctivmmvm8393-77-44 17:26:00* Test Item Value Reference Range Interpretation Comments Urine Leukocyte Esterase (test code = 32011-2) NEGATIVE NEGATIV E [facility] Gboqcyt5047-79-25 17:26:00* Test Item Value Reference Range Interpretation Comments Urine Nitrite (test code = 90103-5) NEGATIVE NEGATIVE [facility] Zxpsrpo2880-05-73 17:26:00* Test Item Value Reference Range Interpretation Comments Urine Protein (test code = 93713-5) NEGATIVE NEGATIVE [facility] HospitalU[facility] Glucose (UA)2019-07-03 17:26:00* Test Item Value Reference Range Interpretation Comments Urine Glucose (UA) (test code = 98760-6) NEGATIVE NEGATIVE [facility] HospitalU[facility] Uqmjzld9171-15-58 17:26:00* Test Item Value Reference Range Interpretation Comments Urine Ketones (test code = 50091-7) NEGATIVE NEGATIVE [facility] Znlvarfmaich0381-31-10 17:26:00* Test Item Value Reference Range Interpretation Comments Urine Urobilinogen (test code = 46544-9) 0.2 0.2-1 [facility] Byhnkixyi8582-08-56 17:26:00* Test Item Value Reference Range Interpretation Comments Urine Bilirubin (test code = 1977-8) NEGATIVE NEGATIVE [facility] Nsgqk8796-19-40 17:26:00* Test Item Value Reference Range Interpretation Comments Urine Blood (test code = 38821-9) NEGATIVE NEGATIVE [facility] HospitalUrine human chorionic gonadotropin (hCG) fvjouucmd5941-54-99 17:01:00* Test Item Value Reference Range Interpretation Comments Urine Test (test code = 2106-3) NEGATIVE NEGATIVE [facility] HospitalDifferential Total Cells Counted 2019-03-15 19:00:00* Test Item Value Reference Range Interpretation Comments Differential Total Cells Counted (test code = Differen tial Total Cells Counted) 100 [facility] HospitalNeutrophils % (Manual)2019-03-15 19:00:00 * Test Item Value Reference Range Interpretation Comments Neutrophils % (Manual) (test code = 51047-5) 48 40-74 [facility] HospitalLymphocytes % (Manual)2019-03-15 19:00:00 * Test Item Value Reference Range Interpretation Comments Lymphocytes % (Manual) (test code = 737-7) 42 19-48 [facility] HospitalMonocytes % (Manual)2019-03-15 19:00:00* Test Item Value Reference Range Interpretation Comments Monocytes % (Manual) (test code = 744-3) 6 3.4-9.0 [facility] HospitalEosinophils % (Manual)2019-03-15 19:00:00 * Test Item Value Reference Range Interpretation Comments Eosinophils % (Manual) (test code = 714-6) 1 0-7 [facility] HospitalReactive Tnfbnlsuiia9623-92-61 19:00:00* Test Item Value Reference Range Interpretation Comments Reactive Lymphocytes (test code = 11588-3) 3 [facility] HospitalDifferential Total Cells Counted 2019-03-15 19:00:00* Test Item Value Reference Range Interpretation Comments Differential Total Cells Counted (test code = Differen tial Total Cells Counted) 100 [facility] HospitalNeutrophils % (Manual)2019-03-15 19:00:00 * Test Item Value Reference Range Interpretation Comments Neutrophils % (Manual) (test code = 11460-5) 48 40-74 [facility] HospitalLymphocytes % (Manual)2019-03-15 19:00:00 * Test Item Value Reference Range Interpretation Comments Lymphocytes % (Manual) (test code = 737-7) 42 19-48 [facility] HospitalMonocytes % (Manual)2019-03-15 19:00:00* Test Item Value Reference Range Interpretation Comments Monocytes % (Manual) (test code = 744-3) 6 3.4-9.0 [facility] HospitalEosinophils % (Manual)2019-03-15 19:00:00 * Test Item Value Reference Range Interpretation Comments Eosinophils % (Manual) (test code = 714-6) 1 0-7 [facility] HospitalReactive Zxeezblaceh1163-39-76 19:00:00* Test Item Value Reference Range Interpretation Comments Reactive Lymphocytes (test code = 79193-5) 3 [facility] HospitalDifferential Total Cells Counted 2019-03-15 19:00:00* Test Item Value Reference Range Interpretation Comments Differential Total Cells Counted (test code = Differsimin tial Total Cells Counted) 100 [facility] HospitalNeutrophils % (Manual)2019-03-15 19:00:00 * Test Item Value Reference Range Interpretation Comments Neutrophils % (Manual) (test code = 88518-2) 48 40-74 [facility] HospitalLymphocytes % (Manual)2019-03-15 19:00:00 * Test Item Value Reference Range Interpretation Comments Lymphocytes % (Manual) (test code = 737-7) 42 19-48 [facility] HospitalMonocytes % (Manual)2019-03-15 19:00:00* Test Item Value Reference Range Interpretation Comments Monocytes % (Manual) (test code = 744-3) 6 3.4-9.0 [facility] HospitalEosinophils % (Manual)2019-03-15 19:00:00 * Test Item Value Reference Range Interpretation Comments Eosinophils % (Manual) (test code = 714-6) 1 0-7 [facility] HospitalReactive Zomxqyazudh8998-17-30 19:00:00* Test Item Value Reference Range Interpretation Comments Reactive Lymphocytes (test code = 33016-2) 3 [facility] HospitalDifferential Total Cells Counted 2019-03-15 19:00:00* Test Item Value Reference Range Interpretation Comments Differential Total Cells Counted (test code = Differen tial Total Cells Counted) 100 [facility] HospitalNeutrophils % (Manual)2019-03-15 19:00:00 * Test Item Value Reference Range Interpretation Comments Neutrophils % (Manual) (test code = 51939-1) 48 40-74 [facility] HospitalLymphocytes % (Manual)2019-03-15 19:00:00 * Test Item Value Reference Range Interpretation Comments Lymphocytes % (Manual) (test code = 737-7) 42 19-48 [facility] HospitalMonocytes % (Manual)2019-03-15 19:00:00* Test Item Value Reference Range Interpretation Comments Monocytes % (Manual) (test code = 744-3) 6 3.4-9.0 [facility] HospitalEosinophils % (Manual)2019-03-15 19:00:00 * Test Item Value Reference Range Interpretation Comments Eosinophils % (Manual) (test code = 714-6) 1 0-7 [facility] HospitalReactive Gdupzjgxswm3203-03-32 19:00:00* Test Item Value Reference Range Interpretation Comments Reactive Lymphocytes (test code = 88921-5) 3 [facility] HospitalDifferential Total Cells Counted 2019-03-15 19:00:00* Test Item Value Reference Range Interpretation Comments Differential Total Cells Counted (test code = Differen tial Total Cells Counted) 100 [facility] HospitalNeutrophils % (Manual)2019-03-15 19:00:00 * Test Item Value Reference Range Interpretation Comments Neutrophils % (Manual) (test code = 72871-6) 48 40-74 [facility] HospitalLymphocytes % (Manual)2019-03-15 19:00:00 * Test Item Value Reference Range Interpretation Comments Lymphocytes % (Manual) (test code = 737-7) 42 19-48 [facility] HospitalMonocytes % (Manual)2019-03-15 19:00:00* Test Item Value Reference Range Interpretation Comments Monocytes % (Manual) (test code = 744-3) 6 3.4-9.0 [facility] HospitalEosinophils % (Manual)2019-03-15 19:00:00 * Test Item Value Reference Range Interpretation Comments Eosinophils % (Manual) (test code = 714-6) 1 0-7 [facility] HospitalReactive Gcnobymrnbt7929-99-38 19:00:00* Test Item Value Reference Range Interpretation Comments Reactive Lymphocytes (test code = 37611-4) 3 [facility] HospitalDifferential Total Cells Counted 2019-03-15 19:00:00* Test Item Value Reference Range Interpretation Comments Differential Total Cells Counted (test code = Differen tial Total Cells Counted) 100 [facility] HospitalNeutrophils % (Manual)2019-03-15 19:00:00 * Test Item Value Reference Range Interpretation Comments Neutrophils % (Manual) (test code = 20810-5) 48 40-74 [facility] HospitalLymphocytes % (Manual)2019-03-15 19:00:00 * Test Item Value Reference Range Interpretation Comments Lymphocytes % (Manual) (test code = 737-7) 42 19-48 [facility] HospitalMonocytes % (Manual)2019-03-15 19:00:00* Test Item Value Reference Range Interpretation Comments Monocytes % (Manual) (test code = 744-3) 6 3.4-9.0 [facility] HospitalEosinophils % (Manual)2019-03-15 19:00:00 * Test Item Value Reference Range Interpretation Comments Eosinophils % (Manual) (test code = 714-6) 1 0-7 [facility] HospitalReactive Jxihjbbmuef9098-51-69 19:00:00* Test Item Value Reference Range Interpretation Comments Reactive Lymphocytes (test code = 41932-3) 3 [facility] HospitalCHEST SINGLE (PORTABLE)2019-03-15 18:05:00 [facility] [address] [place] [address] Patient Name: STEPHANIE CAMERON MR #: [id number] : 1960 Age/Sex: 58/F Req #: [id number] Adm Physician: Ordered by: JUAN CARLOS CAT MD Report #: [id number] Location: ER Room/Bed: Procedure: [id number] D X/CHEST SINGLE (PORTABLE) Exam Date: Exam [...] TO: JUAN CARLOS CAT MD Creatine Kinase TK2508-81-79 17:03:00* Test Item Value Reference Range Interpretation Comments Creatine Kinase MB (test code = 40984-2) 1.10 0-5.0 [place] 44070019-05-16 17:03:00* Test Item Value Reference Range Interpretation Comments Troponin I (test code = CHE4217) < 0.001 0-0.300 [facility] HospitalCreatine Kinase ZT4568-40-60 17:03:00* Test Item Value Reference Range Interpretation Comments Creatine Kinase MB (test code = 00049-2) 1.10 0-5.0 [place] 44070019-05-16 17:03:00* Test Item Value Reference Range Interpretation Comments Troponin I (test code = FUW8006) < 0.001 0-0.300 [facility] HospitalCreatine Kinase BQ4216-06-51 17:03:00* Test Item Value Reference Range Interpretation Comments Creatine Kinase MB (test code = 39223-8) 1.10 0-5.0 [place] 44070019-05-16 17:03:00* Test Item Value Reference Range Interpretation Comments Troponin I (test code = OOP9024) < 0.001 0-0.300 [facility] HospitalCreatine Kinase DS0937-66-27 17:03:00* Test Item Value Reference Range Interpretation Comments Creatine Kinase MB (test code = 59180-9) 1.10 0-5.0 [place] 44070019-05-16 17:03:00* Test Item Value Reference Range Interpretation Comments Troponin I (test code = DYU8500) < 0.001 0-0.300 [facility] HospitalCreatine Kinase VW9035-60-86 17:03:00* Test Item Value Reference Range Interpretation Comments Creatine Kinase MB (test code = 22738-6) 1.10 0-5.0 [place] 44070019-05-16 17:03:00* Test Item Value Reference Range Interpretation Comments Troponin I (test code = ZQI5515) < 0.001 0-0.300 [facility] Nmsog2354-81-21 16:57:00* Test Item Value Reference Range Interpretation Comments Sodium Level (test code = 2951-2) 132 136-145 L [facility] HospitalPotassium Iwads6533-07-91 16:57:00* Test Item Value Reference Range Interpretation Comments Potassium Level (test code = 2823-3) 4.9 3.5-5.1 [facility] HospitalChloride Oszca4726-71-22 16:57:00* Test Item Value Reference Range Interpretation Comments Chloride Level (test code = 2075-0) 99 98-107 [facility] HospitalCarbon Dioxide Npeuw9593-15-45 16:57:00* Test Item Value Reference Range Interpretation Comments Carbon Dioxide Level (test code = 2028-9) 22 22-29 [facility] HospitalAnion Cex6787-36-24 16:57:00* Test Item Value Reference Range Interpretation Comments Anion Gap (test code = 10313-0) 15.9 8-16 [facility] HospitalBlood Urea Rqoubgwd7505-80-72 16:57:00* Test Item Value Reference Range Interpretation Comments Blood Urea Nitrogen (test code = 3094-0) 22 7-26 [facility] HospitalCreatinine2019-05-16 16:57:00* Test Item Value Reference Range Interpretation Comments Creatinine (test code = 2160-0) 1.00 0.57-1.11 [facility] HospitalBUN/Creatinine Llndh3039-69-04 16:57:00* Test Item Value Reference Range Interpretation Comments BUN/Creatinine Ratio (test code = 3097-3) 22 6-25 [facility] HospitalEstimat Glomerular Filtration Rate 2019-03-15 16:57:00* Test Item Value Reference Range Interpretation Comments Estimat Glomerular Filtration Rate (test code = 834669706) 57 >60 L Ranges were taken from the National Kidney Disease Education Program and the [facility] literature.Reference ranges:60 or greater: Rfozec49-10 ( for 3 consecutive months): Chronic kidney disease 15 or less: Kidney failureUvalde Memorial HospitalGlucose Kqryq6351-61-81 16:57:00* Test Item Value Reference Range Interpretation Comments Glucose Level (test code = VAR7319) 186 74-118 H [facility] HospitalCalcium Ubitd1236-40-66 16:57:00* Test Item Value Reference Range Interpretation Comments Calcium Level (test code = 95053-6) 10.1 8.4-10.2 [facility] HospitalTotal Eldszfdjc9770-13-34 16:57:00* Test Item Value Reference Range Interpretation Comments Total Bilirubin (test code = 1975-2) 0.3 0.2-1.2 [facility] HospitalAspartate Amino Transf (AST/SGOT) 2019-03-15 16:57:00* Test Item Value Reference Range Interpretation Comments Aspartate Amino Transf (AST/SGOT) (test code = Aspartate Amino Transf (AST/SGOT)) 11 5-34 [facility] HospitalAlanine Aminotransferase (ALT/SGPT) 2019-03-15 16:57:00* Test Item Value Reference Range Interpretation Comments Alanine Aminotransferase (ALT/SGPT) (test code = 1742-6) 9 0-55 [facility] HospitalTotal Bqoiqge6453-63-02 16:57:00* Test Item Value Reference Range Interpretation Comments Total Protein (test code = 2885-2) 7.0 6.5-8.1 [facility] HospitalAlbumin2019-05-16 16:57:00* Test Item Value Reference Range Interpretation Comments Albumin (test code = 1751-7) 3.5 3.5-5.0 [facility] HospitalGlobulin2019-05-16 16:57:00* Test Item Value Reference Range Interpretation Comments Globulin (test code = 12502-9) 3.5 2.3-3.5 [facility] HospitalAlbumin/Globulin Hhgfr4908-07-11 16:57:00 * Test Item Value Reference Range Interpretation Comments Albumin/Globulin Ratio (test code = 1759-0) 1.0 0.8-2.0 [facility] HospitalAlkaline Jkauiymztgc4579-24-41 16:57:00* Test Item Value Reference Range Interpretation Comments Alkaline Phosphatase (test code = 6768-6) 156 40-150 H [facility] HospitalCreatine Rsjxlf7815-67-49 16:57:00* Test Item Value Reference Range Interpretation Comments Creatine Kinase (test code = 2157-6) 91 29-168 [facility] Nvztt1508-55-41 16:57:00* Test Item Value Reference Range Interpretation Comments Sodium Level (test code = 2951-2) 132 136-145 L [facility] HospitalPotassium Uyogq6199-10-60 16:57:00* Test Item Value Reference Range Interpretation Comments Potassium Level (test code = 2823-3) 4.9 3.5-5.1 [facility] HospitalChloride Wqmsi1197-21-78 16:57:00* Test Item Value Reference Range Interpretation Comments Chloride Level (test code = 2075-0) 99 98-107 [facility] HospitalCarbon Dioxide Cnqeo8780-59-18 16:57:00* Test Item Value Reference Range Interpretation Comments Carbon Dioxide Level (test code = 2028-9) 22 22-29 [facility] HospitalAnion Aep7240-63-41 16:57:00* Test Item Value Reference Range Interpretation Comments Anion Gap (test code = 20715-6) 15.9 8-16 [facility] HospitalBlood Urea Iudyyvce1208-39-85 16:57:00* Test Item Value Reference Range Interpretation Comments Blood Urea Nitrogen (test code = 3094-0) 22 7-26 [facility] HospitalCreatinine2019-05-16 16:57:00* Test Item Value Reference Range Interpretation Comments Creatinine (test code = 2160-0) 1.00 0.57-1.11 [facility] HospitalBUN/Creatinine Umvss2918-72-62 16:57:00* Test Item Value Reference Range Interpretation Comments BUN/Creatinine Ratio (test code = 3097-3) 22 6-25 [facility] HospitalEstimat Glomerular Filtration Rate 2019-03-15 16:57:00* Test Item Value Reference Range Interpretation Comments Estimat Glomerular Filtration Rate (test code = 960066690) 57 >60 L Ranges were taken from the National Kidney Disease Education Program and the [facility] [employer] literature.Reference ranges:60 or greater: Ywqzft32-45 ( for 3 consecutive months): Chronic kidney disease 15 or less: Kidney failureUvalde Memorial HospitalGlucose Wtjii1829-93-77 16:57:00* Test Item Value Reference Range Interpretation Comments Glucose Level (test code = BRH7736) 186 74-118 H [facility] HospitalCalcium Ieyxc4535-64-81 16:57:00* Test Item Value Reference Range Interpretation Comments Calcium Level (test code = 14695-7) 10.1 8.4-10.2 [facility] HospitalTotal Yiojpwxqf4706-48-63 16:57:00* Test Item Value Reference Range Interpretation Comments Total Bilirubin (test code = 1975-2) 0.3 0.2-1.2 [facility] HospitalAspartate Amino Transf (AST/SGOT) 2019-03-15 16:57:00* Test Item Value Reference Range Interpretation Comments Aspartate Amino Transf (AST/SGOT) (test code = Aspartate Amino Transf (AST/SGOT)) 11 5-34 [facility] HospitalAlanine Aminotransferase (ALT/SGPT) 2019-03-15 16:57:00* Test Item Value Reference Range Interpretation Comments Alanine Aminotransferase (ALT/SGPT) (test code = 1742-6) 9 0-55 [facility] HospitalTotal Januiko2607-06-25 16:57:00* Test Item Value Reference Range Interpretation Comments Total Protein (test code = 2885-2) 7.0 6.5-8.1 [facility] HospitalAlbumin2019-05-16 16:57:00* Test Item Value Reference Range Interpretation Comments Albumin (test code = 1751-7) 3.5 3.5-5.0 [facility] HospitalGlobulin2019-05-16 16:57:00* Test Item Value Reference Range Interpretation Comments Globulin (test code = 04955-9) 3.5 2.3-3.5 [facility] HospitalAlbumin/Globulin Orzrw9586-50-72 16:57:00 * Test Item Value Reference Range Interpretation Comments Albumin/Globulin Ratio (test code = 1759-0) 1.0 0.8-2.0 [facility] HospitalAlkaline Azhgojcjuiy7030-91-71 16:57:00* Test Item Value Reference Range Interpretation Comments Alkaline Phosphatase (test code = 6768-6) 156 40-150 H [facility] HospitalCreatine Idbfse8463-65-60 16:57:00* Test Item Value Reference Range Interpretation Comments Creatine Kinase (test code = 2157-6) 91 29-168 [facility] Rmaas4110-34-35 16:57:00* Test Item Value Reference Range Interpretation Comments Sodium Level (test code = 2951-2) 132 136-145 L [facility] HospitalPotassium Fbsyb1884-58-91 16:57:00* Test Item Value Reference Range Interpretation Comments Potassium Level (test code = 2823-3) 4.9 3.5-5.1 [facility] HospitalChloride Xtnez6280-57-16 16:57:00* Test Item Value Reference Range Interpretation Comments Chloride Level (test code = 2075-0) 99 98-107 [facility] HospitalCarbon Dioxide Jnmxl6164-47-41 16:57:00* Test Item Value Reference Range Interpretation Comments Carbon Dioxide Level (test code = 2028-9) 22 22-29 [facility] HospitalAnion Bmn6581-98-25 16:57:00* Test Item Value Reference Range Interpretation Comments Anion Gap (test code = 08601-6) 15.9 8-16 [facility] HospitalBlood Urea Ykurtbmw0017-49-55 16:57:00* Test Item Value Reference Range Interpretation Comments Blood Urea Nitrogen (test code = 3094-0) 22 7-26 [facility] HospitalCreatinine2019-05-16 16:57:00* Test Item Value Reference Range Interpretation Comments Creatinine (test code = 2160-0) 1.00 0.57-1.11 [facility] HospitalBUN/Creatinine Obxzt9481-61-83 16:57:00* Test Item Value Reference Range Interpretation Comments BUN/Creatinine Ratio (test code = 3097-3) 22 6-[address] [facility] Gl[facility]ular Fil[facility] Rate 2019-03-15 16:57:00* Test Item Value Reference Range Interpretation Comments Estimat Glomerular Filtration Rate (test code = 376525527) 57 >60 L Ranges were taken from the National Kidney Disease Education Program and the [facility] literature.Reference ranges:60 or greater: Fzbbnl23-40 ( for 3 consecutive months): Chronic kidney disease 15 or less: Kidney failureUvalde Memorial HospitalGlucose Chalo0062-19-49 16:57:00* Test Item Value Reference Range Interpretation Comments Glucose Level (test code = TJA8103) 186 74-118 H [facility] HospitalCalcium Mjtbl8756-03-01 16:57:00* Test Item Value Reference Range Interpretation Comments Calcium Level (test code = 21069-5) 10.1 8.4-10.2 [facility] HospitalTotal Baacguajl5379-40-43 16:57:00* Test Item Value Reference Range Interpretation Comments Total Bilirubin (test code = 1975-2) 0.3 0.2-1.2 [facility] HospitalAspartate Amino Transf (AST/SGOT) 2019-03-15 16:57:00* Test Item Value Reference Range Interpretation Comments Aspartate Amino Transf (AST/SGOT) (test code = Aspartate Amino Transf (AST/SGOT)) 11 5-34 [facility] HospitalAlanine Aminotransferase (ALT/SGPT) 2019-03-15 16:57:00* Test Item Value Reference Range Interpretation Comments Alanine Aminotransferase (ALT/SGPT) (test code = 1742-6) 9 0-55 [facility] HospitalTotal Fsdwtcv6429-42-20 16:57:00* Test Item Value Reference Range Interpretation Comments Total Protein (test code = 2885-2) 7.0 6.5-8.1 [facility] HospitalAlbumin2019-05-16 16:57:00* Test Item Value Reference Range Interpretation Comments Albumin (test code = 1751-7) 3.5 3.5-5.0 [facility] HospitalGlobulin2019-05-16 16:57:00* Test Item Value Reference Range Interpretation Comments Globulin (test code = 49942-6) 3.5 2.3-3.5 [facility] HospitalAlbumin/Globulin Idxva7376-98-45 16:57:00 * Test Item Value Reference Range Interpretation Comments Albumin/Globulin Ratio (test code = 1759-0) 1.0 0.8-2.0 [facility] HospitalAlkaline Rgvmnrlicme3359-61-09 16:57:00* Test Item Value Reference Range Interpretation Comments Alkaline Phosphatase (test code = 6768-6) 156 40-150 H [facility] HospitalCreatine Bpovqx3995-47-73 16:57:00* Test Item Value Reference Range Interpretation Comments Creatine Kinase (test code = 2157-6) 91 29-168 [facility] Msbke0890-60-82 16:57:00* Test Item Value Reference Range Interpretation Comments Sodium Level (test code = 2951-2) 132 136-145 L [facility] HospitalPotassium Qaizd4832-42-77 16:57:00* Test Item Value Reference Range Interpretation Comments Potassium Level (test code = 2823-3) 4.9 3.5-5.1 [facility] HospitalChloride Zqekn3062-35-85 16:57:00* Test Item Value Reference Range Interpretation Comments Chloride Level (test code = 2075-0) 99 98-107 [facility] HospitalCarbon Dioxide Vbcnv6625-85-43 16:57:00* Test Item Value Reference Range Interpretation Comments Carbon Dioxide Level (test code = 2028-9) 22 22-29 [facility] HospitalAnion Zbu2056-91-51 16:57:00* Test Item Value Reference Range Interpretation Comments Anion Gap (test code = 17924-6) 15.9 8-16 [facility] HospitalBlood Urea Wullypsa2217-32-95 16:57:00* Test Item Value Reference Range Interpretation Comments Blood Urea Nitrogen (test code = 3094-0) 22 7-26 [facility] HospitalCreatinine2019-05-16 16:57:00* Test Item Value Reference Range Interpretation Comments Creatinine (test code = 2160-0) 1.00 0.57-1.11 [facility] HospitalBUN/Creatinine Niegl1870-30-56 16:57:00* Test Item Value Reference Range Interpretation Comments BUN/Creatinine Ratio (test code = 3097-3) 22 6-25 [facility] HospitalEstimat Glomerular Filtration Rate 2019-03-15 16:57:00* Test Item Value Reference Range Interpretation Comments Estimat Glomerular Filtration Rate (test code = 385566811) 57 >60 L Ranges were taken from the National Kidney Disease Education Program and the [facility] Kidney Foundation literature.Reference ranges:60 or greater: Spcthq86-44 ( for 3 consecutive months): Chronic kidney disease 15 or less: Kidney failureUvalde Memorial HospitalGlucose Pgjjd0749-58-22 16:57:00* Test Item Value Reference Range Interpretation Comments Glucose Level (test code = UKX4017) 186 74-118 H [facility] HospitalCalcium Rjcwc7796-53-06 16:57:00* Test Item Value Reference Range Interpretation Comments Calcium Level (test code = 59420-0) 10.1 8.4-10.2 [facility] HospitalTotal Xlbpeweuz6506-58-54 16:57:00* Test Item Value Reference Range Interpretation Comments Total Bilirubin (test code = 1975-2) 0.3 0.2-1.2 [facility] HospitalAspartate Amino Transf (AST/SGOT) 2019-03-15 16:57:00* Test Item Value Reference Range Interpretation Comments Aspartate Amino Transf (AST/SGOT) (test code = Aspartate Amino Transf (AST/SGOT)) 11 5-34 [facility] HospitalAlanine Aminotransferase (ALT/SGPT) 2019-03-15 16:57:00* Test Item Value Reference Range Interpretation Comments Alanine Aminotransferase (ALT/SGPT) (test code = 1742-6) 9 0-55 [facility] HospitalTotal Kgviklh9811-93-59 16:57:00* Test Item Value Reference Range Interpretation Comments Total Protein (test code = 2885-2) 7.0 6.5-8.1 [facility] HospitalAlbumin2019-05-16 16:57:00* Test Item Value Reference Range Interpretation Comments Albumin (test code = 1751-7) 3.5 3.5-5.0 [facility] HospitalGlobulin2019-05-16 16:57:00* Test Item Value Reference Range Interpretation Comments Globulin (test code = 08727-4) 3.5 2.3-3.5 [facility] HospitalAlbumin/Globulin Doxzv7142-02-89 16:57:00 * Test Item Value Reference Range Interpretation Comments Albumin/Globulin Ratio (test code = 1759-0) 1.0 0.8-2.0 [facility] HospitalAlkaline Obxgcwvmlpr3032-31-88 16:57:00* Test Item Value Reference Range Interpretation Comments Alkaline Phosphatase (test code = 6768-6) 156 40-150 H [facility] HospitalCreatine Nkrsil6176-18-90 16:57:00* Test Item Value Reference Range Interpretation Comments Creatine Kinase (test code = 2157-6) 91 29-168 [facility] HospitalTotal Yujsqjzsm4864-12-48 16:57:00* Test Item Value Reference Range Interpretation Comments Total Bilirubin (test code = 1975-2) 0.3 0.2-1.2 [facility] HospitalAspartate Amino Transf (AST/SGOT) 2019-03-15 16:57:00* Test Item Value Reference Range Interpretation Comments Aspartate Amino Transf (AST/SGOT) (test code = Aspartate Amino Transf (AST/SGOT)) 11 5-34 [facility] HospitalAlanine Aminotransferase (ALT/SGPT) 2019-03-15 16:57:00* Test Item Value Reference Range Interpretation Comments Alanine Aminotransferase (ALT/SGPT) (test code = 1742-6) 9 0-55 [facility] HospitalTotal Plbtrhc4645-83-83 16:57:00* Test Item Value Reference Range Interpretation Comments Total Protein (test code = 2885-2) 7.0 6.5-8.1 [facility] HospitalAlbumin2019-05-16 16:57:00* Test Item Value Reference Range Interpretation Comments Albumin (test code = 1751-7) 3.5 3.5-5.0 [facility] HospitalGlobulin2019-05-16 16:57:00* Test Item Value Reference Range Interpretation Comments Globulin (test code = 24345-6) 3.5 2.3-3.5 [facility] HospitalAlbumin/Globulin Xyfzh0119-54-04 16:57:00 * Test Item Value Reference Range Interpretation Comments Albumin/Globulin Ratio (test code = 1759-0) 1.0 0.8-2.0 [facility] HospitalAlkaline Ybozzlyulod2982-74-33 16:57:00* Test Item Value Reference Range Interpretation Comments Alkaline Phosphatase (test code = 6768-6) 156 40-150 H [facility] HospitalCreatine Xjjllh9902-84-16 16:57:00* Test Item Value Reference Range Interpretation Comments Creatine Kinase (test code = 2157-6) 91 29-168 [facility] HospitalWhite Blood Cpvgd8297-50-03 16:34:00* Test Item Value Reference Range Interpretation Comments White Blood Count (test code = 6690-2) 11.61 4.8-10.8 H [facility] HospitalRed Blood Btmbp7845-91-07 16:34:00* Test Item Value Reference Range Interpretation Comments Red Blood Count (test code = 789-8) 4.14 3.6-5.1 [facility] HospitalHemoglobin2019-05-16 16:34:00* Test Item Value Reference Range Interpretation Comments Hemoglobin (test code = 56507-5) 10.9 12.0-16.0 L [facility] HospitalHematocrit2019-05-16 16:34:00* Test Item Value Reference Range Interpretation Comments Hematocrit (test code = 4544-3) 34.0 34.2-44.1 L [facility] HospitalMean Corpuscular Sdpzbg6218-15-88 16:34:00* Test Item Value Reference Range Interpretation Comments Mean Corpuscular Volume (test code = 787-2) 82.1 81-99 [facility] HospitalMean Corpuscular Faujtennoe5463-87-48 16:34:00* Test Item Value Reference Range Interpretation Comments Mean Corpuscular Hemoglobin (test code = 785-6) 26.3 28-32 L [facility] HospitalMean Corpuscular Hemoglobin Concent 2019-03-15 16:34:00* Test Item Value Reference Range Interpretation Comments Mean Corpuscular Hemoglobin Concent (test code = 786-4) 32.1 31-35 [facility] HospitalRed Cell Distribution Tlkil1478-38-88 16:34:00* Test Item Value Reference Range Interpretation Comments Red Cell Distribution Width (test code = 35503-1) 16.5 11.7 -14.4 H [facility] HospitalPlatelet Hvlor6132-63-19 16:34:00* Test Item Value Reference Range Interpretation Comments Platelet Count (test code = 777-3) 399 140-360 H [facility] HospitalNeutrophils (%) (Auto)2019-03-15 16:34:00 * Test Item Value Reference Range Interpretation Comments Neutrophils (%) (Auto) (test code = 05314-0) 53.9 38.7-80.0 [facility] HospitalLymphocytes (%) (Auto)2019-03-15 16:34:00 * Test Item Value Reference Range Interpretation Comments Lymphocytes (%) (Auto) (test code = 736-9) 40.0 18.0-39.1 H [facility] HospitalMonocytes (%) (Auto)2019-03-15 16:34:00* Test Item Value Reference Range Interpretation Comments Monocytes (%) (Auto) (test code = 5905-5) 4.5 4.4-11.3 [facility] HospitalEosinophils (%) (Auto)2019-03-15 16:34:00 * Test Item Value Reference Range Interpretation Comments Eosinophils (%) (Auto) (test code = 713-8) 0.7 0.0-6.0 [facility] HospitalBasophils (%) (Auto)2019-03-15 16:34:00* Test Item Value Reference Range Interpretation Comments Basophils (%) (Auto) (test code = 706-2) 0.5 0.0-1.0 [facility] HospitalIM GRANULOCYTES %2019-03-15 16:34:00* Test Item Value Reference Range Interpretation Comments IM GRANULOCYTES % (test code = IM GRANULOCYTES %) 0.4 0.0- 1.0 [facility] HospitalNeutrophils # (Auto)2019-03-15 16:34:00* Test Item Value Reference Range Interpretation Comments Neutrophils # (Auto) (test code = 751-8) 6.3 2.1-6.9 [facility] HospitalLymphocytes # (Auto)2019-03-15 16:34:00* Test Item Value Reference Range Interpretation Comments Lymphocytes # (Auto) (test code = 87633-2) 4.6 1.0-3.2 H [facility] HospitalMonocytes # (Auto)2019-03-15 16:34:00* Test Item Value Reference Range Interpretation Comments Monocytes # (Auto) (test code = 742-7) 0.5 0.2-0.8 [facility] HospitalEosinophils # (Auto)2019-03-15 16:34:00* Test Item Value Reference Range Interpretation Comments Eosinophils # (Auto) (test code = 711-2) 0.1 0.0-0.4 [facility] HospitalBasophils # (Auto)2019-03-15 16:34:00* Test Item Value Reference Range Interpretation Comments Basophils # (Auto) (test code = 704-7) 0.1 0.0-0.1 [facility] HospitalAbsolute Immature Granulocyte (auto 2019-03-15 16:34:00* Test Item Value Reference Range Interpretation Comments Absolute Immature Granulocyte (auto (romelia t code = Absolute Immature Granulocyte (auto) 0.05 0-0.1 [facility] HospitalWhite Blood Xvcbu6176-60-83 16:34:00* Test Item Value Reference Range Interpretation Comments White Blood Count (test code = 6690-2) 11.61 4.8-10.8 H [facility] HospitalRed Blood Ygkub1453-07-58 16:34:00* Test Item Value Reference Range Interpretation Comments Red Blood Count (test code = 789-8) 4.14 3.6-5.1 [facility] HospitalHemoglobin2019-05-16 16:34:00* Test Item Value Reference Range Interpretation Comments Hemoglobin (test code = 52309-4) 10.9 12.0-16.0 L [facility] HospitalHematocrit2019-05-16 16:34:00* Test Item Value Reference Range Interpretation Comments Hematocrit (test code = 4544-3) 34.0 34.2-44.1 L [facility] HospitalMean Corpuscular Inrtkc1389-07-82 16:34:00* Test Item Value Reference Range Interpretation Comments Mean Corpuscular Volume (test code = 787-2) 82.1 81-99 [facility] HospitalMean Corpuscular Kyxphzlcsx3867-00-43 16:34:00* Test Item Value Reference Range Interpretation Comments Mean Corpuscular Hemoglobin (test code = 785-6) 26.3 28-32 L [facility] HospitalMean Corpuscular Hemoglobin Concent 2019-03-15 16:34:00* Test Item Value Reference Range Interpretation Comments Mean Corpuscular Hemoglobin Concent (test code = 786-4) 32.1 31-35 [facility] HospitalRed Cell Distribution Yzxli4939-28-01 16:34:00* Test Item Value Reference Range Interpretation Comments Red Cell Distribution Width (test code = 39897-9) 16.5 11.7 -14.4 H [facility] HospitalPlatelet Aunup5587-61-87 16:34:00* Test Item Value Reference Range Interpretation Comments Platelet Count (test code = 777-3) 399 140-360 H [facility] HospitalNeutrophils (%) (Auto)2019-03-15 16:34:00 * Test Item Value Reference Range Interpretation Comments Neutrophils (%) (Auto) (test code = 52709-6) 53.9 38.7-80.0 [facility] HospitalLymphocytes (%) (Auto)2019-03-15 16:34:00 * Test Item Value Reference Range Interpretation Comments Lymphocytes (%) (Auto) (test code = 736-9) 40.0 18.0-39.1 H [facility] HospitalMonocytes (%) (Auto)2019-03-15 16:34:00* Test Item Value Reference Range Interpretation Comments Monocytes (%) (Auto) (test code = 5905-5) 4.5 4.4-11.3 [facility] HospitalEosinophils (%) (Auto)2019-03-15 16:34:00 * Test Item Value Reference Range Interpretation Comments Eosinophils (%) (Auto) (test code = 713-8) 0.7 0.0-6.0 [facility] HospitalBasophils (%) (Auto)2019-03-15 16:34:00* Test Item Value Reference Range Interpretation Comments Basophils (%) (Auto) (test code = 706-2) 0.5 0.0-1.0 [facility] HospitalIM GRANULOCYTES %2019-03-15 16:34:00* Test Item Value Reference Range Interpretation Comments IM GRANULOCYTES % (test code = IM GRANULOCYTES %) 0.4 0.0- 1.0 [facility] HospitalNeutrophils # (Auto)2019-03-15 16:34:00* Test Item Value Reference Range Interpretation Comments Neutrophils # (Auto) (test code = 751-8) 6.3 2.1-6.9 [facility] HospitalLymphocytes # (Auto)2019-03-15 16:34:00* Test Item Value Reference Range Interpretation Comments Lymphocytes # (Auto) (test code = 59818-6) 4.6 1.0-3.2 H [facility] HospitalMonocytes # (Auto)2019-03-15 16:34:00* Test Item Value Reference Range Interpretation Comments Monocytes # (Auto) (test code = 742-7) 0.5 0.2-0.8 [facility] HospitalEosinophils # (Auto)2019-03-15 16:34:00* Test Item Value Reference Range Interpretation Comments Eosinophils # (Auto) (test code = 711-2) 0.1 0.0-0.4 [facility] HospitalBasophils # (Auto)2019-03-15 16:34:00* Test Item Value Reference Range Interpretation Comments Basophils # (Auto) (test code = 704-7) 0.1 0.0-0.1 [facility] HospitalAbsolute Immature Granulocyte (auto 2019-03-15 16:34:00* Test Item Value Reference Range Interpretation Comments Absolute Immature Granulocyte (auto (romelia t code = Absolute Immature Granulocyte (auto) 0.05 0-0.1 [facility] HospitalWhite Blood Mznet2387-20-26 16:34:00* Test Item Value Reference Range Interpretation Comments White Blood Count (test code = 6690-2) 11.61 4.8-10.8 H [facility] HospitalRed Blood Giwpz4288-70-97 16:34:00* Test Item Value Reference Range Interpretation Comments Red Blood Count (test code = 789-8) 4.14 3.6-5.1 [facility] HospitalHemoglobin2019-05-16 16:34:00* Test Item Value Reference Range Interpretation Comments Hemoglobin (test code = 05876-9) 10.9 12.0-16.0 L [facility] HospitalHematocrit2019-05-16 16:34:00* Test Item Value Reference Range Interpretation Comments Hematocrit (test code = 4544-3) 34.0 34.2-44.1 L [facility] HospitalMean Corpuscular Vpnqfk5638-24-79 16:34:00* Test Item Value Reference Range Interpretation Comments Mean Corpuscular Volume (test code = 787-2) 82.1 81-99 [facility] HospitalMean Corpuscular Hrtonoqhhn8261-35-71 16:34:00* Test Item Value Reference Range Interpretation Comments Mean Corpuscular Hemoglobin (test code = 785-6) 26.3 28-32 L [facility] HospitalMean Corpuscular Hemoglobin Concent 2019-03-15 16:34:00* Test Item Value Reference Range Interpretation Comments Mean Corpuscular Hemoglobin Concent (test code = 786-4) 32.1 31-35 [facility] HospitalRed Cell Distribution Bphme9314-62-97 16:34:00* Test Item Value Reference Range Interpretation Comments Red Cell Distribution Width (test code = 22741-9) 16.5 11.7 -14.4 H [facility] HospitalPlatelet Iuxjk1533-01-98 16:34:00* Test Item Value Reference Range Interpretation Comments Platelet Count (test code = 777-3) 399 140-360 H [facility] HospitalNeutrophils (%) (Auto)2019-03-15 16:34:00 * Test Item Value Reference Range Interpretation Comments Neutrophils (%) (Auto) (test code = 96411-6) 53.9 38.7-80.0 [facility] HospitalLymphocytes (%) (Auto)2019-03-15 16:34:00 * Test Item Value Reference Range Interpretation Comments Lymphocytes (%) (Auto) (test code = 736-9) 40.0 18.0-39.1 H [facility] HospitalMonocytes (%) (Auto)2019-03-15 16:34:00* Test Item Value Reference Range Interpretation Comments Monocytes (%) (Auto) (test code = 5905-5) 4.5 4.4-11.3 [facility] HospitalEosinophils (%) (Auto)2019-03-15 16:34:00 * Test Item Value Reference Range Interpretation Comments Eosinophils (%) (Auto) (test code = 713-8) 0.7 0.0-6.0 [facility] HospitalBasophils (%) (Auto)2019-03-15 16:34:00* Test Item Value Reference Range Interpretation Comments Basophils (%) (Auto) (test code = 706-2) 0.5 0.0-1.0 [facility] HospitalIM GRANULOCYTES %2019-03-15 16:34:00* Test Item Value Reference Range Interpretation Comments IM GRANULOCYTES % (test code = IM GRANULOCYTES %) 0.4 0.0- 1.0 [facility] HospitalNeutrophils # (Auto)2019-03-15 16:34:00* Test Item Value Reference Range Interpretation Comments Neutrophils # (Auto) (test code = 751-8) 6.3 2.1-6.9 [facility] HospitalLymphocytes # (Auto)2019-03-15 16:34:00* Test Item Value Reference Range Interpretation Comments Lymphocytes # (Auto) (test code = 34830-4) 4.6 1.0-3.2 H [facility] HospitalMonocytes # (Auto)2019-03-15 16:34:00* Test Item Value Reference Range Interpretation Comments Monocytes # (Auto) (test code = 742-7) 0.5 0.2-0.8 [facility] HospitalEosinophils # (Auto)2019-03-15 16:34:00* Test Item Value Reference Range Interpretation Comments Eosinophils # (Auto) (test code = 711-2) 0.1 0.0-0.4 [facility] HospitalBasophils # (Auto)2019-03-15 16:34:00* Test Item Value Reference Range Interpretation Comments Basophils # (Auto) (test code = 704-7) 0.1 0.0-0.1 [facility] HospitalAbsolute Immature Granulocyte (auto 2019-03-15 16:34:00* Test Item Value Reference Range Interpretation Comments Absolute Immature Granulocyte (auto (romelia t code = Absolute Immature Granulocyte (auto) 0.05 0-0.1 [facility] HospitalWhite Blood Mpzfy7751-19-83 16:34:00* Test Item Value Reference Range Interpretation Comments White Blood Count (test code = 6690-2) 11.61 4.8-10.8 H [facility] HospitalRed Blood Ivbzm5766-65-00 16:34:00* Test Item Value Reference Range Interpretation Comments Red Blood Count (test code = 789-8) 4.14 3.6-5.1 [facility] HospitalHemoglobin2019-05-16 16:34:00* Test Item Value Reference Range Interpretation Comments Hemoglobin (test code = 51305-4) 10.9 12.0-16.0 L [facility] HospitalHematocrit2019-05-16 16:34:00* Test Item Value Reference Range Interpretation Comments Hematocrit (test code = 4544-3) 34.0 34.2-44.1 L [facility] HospitalMean Corpuscular Vwgsbc0887-27-58 16:34:00* Test Item Value Reference Range Interpretation Comments Mean Corpuscular Volume (test code = 787-2) 82.1 81-99 [facility] HospitalMean Corpuscular Opgntqggkq2789-19-42 16:34:00* Test Item Value Reference Range Interpretation Comments Mean Corpuscular Hemoglobin (test code = 785-6) 26.3 28-32 L [facility] HospitalMean Corpuscular Hemoglobin Concent 2019-03-15 16:34:00* Test Item Value Reference Range Interpretation Comments Mean Corpuscular Hemoglobin Concent (test code = 786-4) 32.1 31-35 [facility] HospitalRed Cell Distribution Uegui7905-75-99 16:34:00* Test Item Value Reference Range Interpretation Comments Red Cell Distribution Width (test code = 87381-2) 16.5 11.7 -14.4 H [facility] HospitalPlatelet Xefgp9395-93-43 16:34:00* Test Item Value Reference Range Interpretation Comments Platelet Count (test code = 777-3) 399 140-360 H [facility] HospitalNeutrophils (%) (Auto)2019-03-15 16:34:00 * Test Item Value Reference Range Interpretation Comments Neutrophils (%) (Auto) (test code = 96174-2) 53.9 38.7-80.0 [facility] HospitalLymphocytes (%) (Auto)2019-03-15 16:34:00 * Test Item Value Reference Range Interpretation Comments Lymphocytes (%) (Auto) (test code = 736-9) 40.0 18.0-39.1 H [facility] HospitalMonocytes (%) (Auto)2019-03-15 16:34:00* Test Item Value Reference Range Interpretation Comments Monocytes (%) (Auto) (test code = 5905-5) 4.5 4.4-11.3 [facility] HospitalEosinophils (%) (Auto)2019-03-15 16:34:00 * Test Item Value Reference Range Interpretation Comments Eosinophils (%) (Auto) (test code = 713-8) 0.7 0.0-6.0 [facility] HospitalBasophils (%) (Auto)2019-03-15 16:34:00* Test Item Value Reference Range Interpretation Comments Basophils (%) (Auto) (test code = 706-2) 0.5 0.0-1.0 [facility] HospitalIM GRANULOCYTES %2019-03-15 16:34:00* Test Item Value Reference Range Interpretation Comments IM GRANULOCYTES % (test code = IM GRANULOCYTES %) 0.4 0.0- 1.0 [facility] HospitalNeutrophils # (Auto)2019-03-15 16:34:00* Test Item Value Reference Range Interpretation Comments Neutrophils # (Auto) (test code = 751-8) 6.3 2.1-6.9 [facility] HospitalLymphocytes # (Auto)2019-03-15 16:34:00* Test Item Value Reference Range Interpretation Comments Lymphocytes # (Auto) (test code = 42186-1) 4.6 1.0-3.2 H [facility] HospitalMonocytes # (Auto)2019-03-15 16:34:00* Test Item Value Reference Range Interpretation Comments Monocytes # (Auto) (test code = 742-7) 0.5 0.2-0.8 [facility] HospitalEosinophils # (Auto)2019-03-15 16:34:00* Test Item Value Reference Range Interpretation Comments Eosinophils # (Auto) (test code = 711-2) 0.1 0.0-0.4 [facility] HospitalBasophils # (Auto)2019-03-15 16:34:00* Test Item Value Reference Range Interpretation Comments Basophils # (Auto) (test code = 704-7) 0.1 0.0-0.1 [facility] HospitalAbsolute Immature Granulocyte (auto 2019-03-15 16:34:00* Test Item Value Reference Range Interpretation Comments Absolute Immature Granulocyte (auto (romelia t code = Absolute Immature Granulocyte (auto) 0.05 0-0.1 [facility] Vwqtwnh9662-15-58 15:47:00* Test Item Value Reference Range Interpretation Comments Bedside Glucose (test code = 66462-5) 234 70-120 H Meter ID: [id number] [facility] Glucose 2019-03-07 15:47:00* Test Item Value Reference Range Interpretation Comments Bedside Glucose (test code = 25495-4) 234 70-120 H Meter ID: [id number] [facility] Glucose 2019-03-07 15:47:00* Test Item Value Reference Range Interpretation Comments Bedside Glucose (test code = 57456-7) 234 70-120 H Meter ID: [id number] Glucose 2019-03-07 15:47:00* Test Item Value Reference Range Interpretation Comments Bedside Glucose (test code = 44904-2) 234 70-120 H Meter ID: [id number] [facility] Glucose 2019-03-07 15:47:00* Test Item Value Reference Range Interpretation Comments Bedside Glucose (test code = 20517-2) 234 70-120 H Meter ID: [id number] HospitalUrine UFS7657-49-97 15:24:00* Test Item Value Reference Range Interpretation Comments Urine WBC (test code = 5821-4) NONE 0-5 [facility] XBA8172-52-43 15:24:00* Test Item Value Reference Range Interpretation Comments Urine RBC (test code = 04127-5) NONE 0-5 [facility] Urxitonm5438-74-04 15:24:00* Test Item Value Reference Range Interpretation Comments Urine Bacteria (test code = 78601-8) MODERATE NONE H [facility] Epithelial Nccfb6505-43-95 15:24:00 * Test Item Value Reference Range Interpretation Comments Urine Epithelial Cells (test code = 05184-0) MODERATE NONE [facility] IQG5695-61-44 15:24:00* Test Item Value Reference Range Interpretation Comments Urine WBC (test code = 5821-4) NONE 0-5 [facility] CTD0950-73-78 15:24:00* Test Item Value Reference Range Interpretation Comments Urine RBC (test code = 43507-4) NONE 0-5 [facility] Xhyvhqns3936-48-11 15:24:00* Test Item Value Reference Range Interpretation Comments Urine Bacteria (test code = 11192-6) MODERATE NONE H [facility] Epithelial Tcqdj9631-93-22 15:24:00 * Test Item Value Reference Range Interpretation Comments Urine Epithelial Cells (test code = 02701-9) MODERATE NONE [facility] UJO2781-85-17 15:24:00* Test Item Value Reference Range Interpretation Comments Urine WBC (test code = 5821-4) NONE 0-5 [facility] VMF9911-11-24 15:24:00* Test Item Value Reference Range Interpretation Comments Urine RBC (test code = 02608-2) NONE 0-5 [facility] Malzcqzl1380-01-97 15:24:00* Test Item Value Reference Range Interpretation Comments Urine Bacteria (test code = 05286-4) MODERATE NONE H [facility] Epithelial Qgstm6444-73-02 15:24:00 * Test Item Value Reference Range Interpretation Comments Urine Epithelial Cells (test code = 41709-6) MODERATE NONE [facility] ZPB3518-09-48 15:24:00* Test Item Value Reference Range Interpretation Comments Urine WBC (test code = 5821-4) NONE 0-5 [facility] IEF8902-99-18 15:24:00* Test Item Value Reference Range Interpretation Comments Urine RBC (test code = 27808-8) NONE 0-5 [facility] Aafbeqqs1317-97-35 15:24:00* Test Item Value Reference Range Interpretation Comments Urine Bacteria (test code = 82107-5) MODERATE NONE H [facility] Epithelial Feeqz2615-22-37 15:24:00 * Test Item Value Reference Range Interpretation Comments Urine Epithelial Cells (test code = 78965-3) MODERATE NONE [facility] Vfird4080-31-96 15:00:00* Test Item Value Reference Range Interpretation Comments Urine Color (test code = 5778-6) YELLOW YELLOW [facility] Kgdtayx8029-57-32 15:00:00* Test Item Value Reference Range Interpretation Comments Urine Clarity (test code = 59253-6) CLEAR CLEAR [facility] Specific Gldiiyj7641-79-94 15:00:00 * Test Item Value Reference Range Interpretation Comments Urine Specific [place] (test code = 5811-5) 1.005 1.010-1.02 5 L [facility] qJ0545-52-80 15:00:00* Test Item Value Reference Range Interpretation Comments Urine pH (test code = 77258-9) 5 5-7 [facility] Leukocyte Znrxogws8429-09-95 15:00:00* Test Item Value Reference Range Interpretation Comments Urine Leukocyte Esterase (test code = 5799-2) NEGATIVE NEGATIVE [facility] Numfrlo8062-35-25 15:00:00* Test Item Value Reference Range Interpretation Comments Urine Nitrite (test code = 77738-0) NEGATIVE NEGATIVE [facility] Oopakmv1630-15-49 15:00:00* Test Item Value Reference Range Interpretation Comments Urine Protein (test code = 5804-0) NEGATIVE NEGATIVE [facility] Glucose (UA)2019-03-07 15:00:00* Test Item Value Reference Range Interpretation Comments Urine Glucose (UA) (test code = 2349-9) 3+ NEGATIVE H [facility] Upafrpu0310-72-64 15:00:00* Test Item Value Reference Range Interpretation Comments Urine Ketones (test code = 72444-6) NEGATIVE NEGATIVE [facility] Nghknzxkhlsa4313-00-50 15:00:00* Test Item Value Reference Range Interpretation Comments Urine Urobilinogen (test code = 94471-9) 0.2 0.2-1 [facility] Avoizgzwr7669-23-69 15:00:00* Test Item Value Reference Range Interpretation Comments Urine Bilirubin (test code = 1978-6) NEGATIVE NEGATIVE [facility] Hzqvs7182-04-90 15:00:00* Test Item Value Reference Range Interpretation Comments Urine Blood (test code = 88195-3) NEGATIVE NEGATIVE [facility] Pegty7657-74-63 15:00:00* Test Item Value Reference Range Interpretation Comments Urine Color (test code = 5778-6) YELLOW YELLOW [facility] Xrbhvei3985-41-16 15:00:00* Test Item Value Reference Range Interpretation Comments Urine Clarity (test code = 83923-3) CLEAR CLEAR [facility] Specific Tcalsry1684-97-00 15:00:00 * Test Item Value Reference Range Interpretation Comments Urine Specific [place] (test code = 5811-5) 1.005 1.010-1.02 5 L [facility] pD5910-50-12 15:00:00* Test Item Value Reference Range Interpretation Comments Urine pH (test code = 01904-7) 5 5-7 [facility] Leukocyte Iqijbeib4106-48-17 15:00:00* Test Item Value Reference Range Interpretation Comments Urine Leukocyte Esterase (test code = 5799-2) NEGATIVE NEGATIVE [facility] Fhxxfpd3998-70-26 15:00:00* Test Item Value Reference Range Interpretation Comments Urine Nitrite (test code = 01690-3) NEGATIVE NEGATIVE [facility] Isttnlm8184-88-40 15:00:00* Test Item Value Reference Range Interpretation Comments Urine Protein (test code = 5804-0) NEGATIVE NEGATIVE [facility] Glucose (UA)2019-03-07 15:00:00* Test Item Value Reference Range Interpretation Comments Urine Glucose (UA) (test code = 2349-9) 3+ NEGATIVE H [facility] Kjdpict9040-28-89 15:00:00* Test Item Value Reference Range Interpretation Comments Urine Ketones (test code = 14030-1) NEGATIVE NEGATIVE [facility] Bvczepnwngpm9330-64-61 15:00:00* Test Item Value Reference Range Interpretation Comments Urine Urobilinogen (test code = 92837-4) 0.2 0.2-1 [facility] Zhmuryfih2627-98-46 15:00:00* Test Item Value Reference Range Interpretation Comments Urine Bilirubin (test code = 1978-6) NEGATIVE NEGATIVE [facility] Cwbzx5530-25-70 15:00:00* Test Item Value Reference Range Interpretation Comments Urine Blood (test code = 82267-5) NEGATIVE NEGATIVE [facility] Vsfsz5067-16-67 15:00:00* Test Item Value Reference Range Interpretation Comments Urine Color (test code = 5778-6) YELLOW YELLOW [facility] Gnnydql8047-56-44 15:00:00* Test Item Value Reference Range Interpretation Comments Urine Clarity (test code = 56606-7) CLEAR CLEAR [facility] Specific Mueymsn6952-94-32 15:00:00 * Test Item Value Reference Range Interpretation Comments Urine Specific [place] (test code = 5811-5) 1.005 1.010-1.02 5 L [facility] kT9493-97-04 15:00:00* Test Item Value Reference Range Interpretation Comments Urine pH (test code = 16685-3) 5 5-7 [facility] Leukocyte Lsajmnhu9650-04-29 15:00:00* Test Item Value Reference Range Interpretation Comments Urine Leukocyte Esterase (test code = 5799-2) NEGATIVE NEGATIVE [facility] Lwquimj8201-09-83 15:00:00* Test Item Value Reference Range Interpretation Comments Urine Nitrite (test code = 05956-6) NEGATIVE NEGATIVE [facility] Mbdxznw3088-60-32 15:00:00* Test Item Value Reference Range Interpretation Comments Urine Protein (test code = 5804-0) NEGATIVE NEGATIVE [facility] Glucose (UA)2019-03-07 15:00:00* Test Item Value Reference Range Interpretation Comments Urine Glucose (UA) (test code = 2349-9) 3+ NEGATIVE H [facility] Mszdcbt1376-56-75 15:00:00* Test Item Value Reference Range Interpretation Comments Urine Ketones (test code = 75498-9) NEGATIVE NEGATIVE [facility] Ctmcrvyyhdkc3479-43-70 15:00:00* Test Item Value Reference Range Interpretation Comments Urine Urobilinogen (test code = 57320-4) 0.2 0.2-1 [facility] Bbgthpyri0874-98-82 15:00:00* Test Item Value Reference Range Interpretation Comments Urine Bilirubin (test code = 1978-6) NEGATIVE NEGATIVE [facility] Yzbyu7305-32-95 15:00:00* Test Item Value Reference Range Interpretation Comments Urine Blood (test code = 38295-1) NEGATIVE NEGATIVE [facility] Kqlfd4062-43-00 15:00:00* Test Item Value Reference Range Interpretation Comments Urine Color (test code = 5778-6) YELLOW YELLOW [facility] Jcnpbqs9505-73-69 15:00:00* Test Item Value Reference Range Interpretation Comments Urine Clarity (test code = 91954-6) CLEAR CLEAR [facility] Specific Mydhiss7319-74-37 15:00:00 * Test Item Value Reference Range Interpretation Comments Urine Specific [place] (test code = 5811-5) 1.005 1.010-1.02 5 L [facility] oN8699-88-49 15:00:00* Test Item Value Reference Range Interpretation Comments Urine pH (test code = 70412-4) 5 5-7 [facility] Leukocyte Ozaqcgfd5096-44-98 15:00:00* Test Item Value Reference Range Interpretation Comments Urine Leukocyte Esterase (test code = 5799-2) NEGATIVE NEGATIVE [facility] Grhqbzf0109-40-41 15:00:00* Test Item Value Reference Range Interpretation Comments Urine Nitrite (test code = 86163-9) NEGATIVE NEGATIVE [facility] Gnsxjvd5329-05-43 15:00:00* Test Item Value Reference Range Interpretation Comments Urine Protein (test code = 5804-0) NEGATIVE NEGATIVE [facility] Glucose (UA)2019-03-07 15:00:00* Test Item Value Reference Range Interpretation Comments Urine Glucose (UA) (test code = 2349-9) 3+ NEGATIVE H [facility] Hrminsq6965-21-62 15:00:00* Test Item Value Reference Range Interpretation Comments Urine Ketones (test code = 61683-1) NEGATIVE NEGATIVE [facility] Pwerwvuleetz5309-46-78 15:00:00* Test Item Value Reference Range Interpretation Comments Urine Urobilinogen (test code = 74775-9) 0.2 0.2-1 [facility] Xxipnmfns6095-89-45 15:00:00* Test Item Value Reference Range Interpretation Comments Urine Bilirubin (test code = 1978-6) NEGATIVE NEGATIVE [facility] Brsvn2651-35-49 15:00:00* Test Item Value Reference Range Interpretation Comments Urine Blood (test code = 52451-2) NEGATIVE NEGATIVE [facility] Sebwr6407-27-91 14:21:00* Test Item Value Reference Range Interpretation Comments Sodium Level (test code = 2951-2) 132 136-145 L [facility] HospitalPotassium Pdoyg9485-74-47 14:21:00* Test Item Value Reference Range Interpretation Comments Potassium Level (test code = 2823-3) 4.2 3.5-5.1 [facility] HospitalChloride Ktcuf6839-07-93 14:21:00* Test Item Value Reference Range Interpretation Comments Chloride Level (test code = 2075-0) 98 98-107 [facility] HospitalCarbon Dioxide Owdin4347-85-72 14:21:00* Test Item Value Reference Range Interpretation Comments Carbon Dioxide Level (test code = 2028-9) 23 22-29 [facility] HospitalAnion Twe3432-69-28 14:21:00* Test Item Value Reference Range Interpretation Comments Anion Gap (test code = 31724-6) 15.2 8-16 [facility] HospitalBlood Urea Glsqddxm1329-13-47 14:21:00* Test Item Value Reference Range Interpretation Comments Blood Urea Nitrogen (test code = 3094-0) 18 7-26 [facility] HospitalCreatinine2019-05-08 14:21:00* Test Item Value Reference Range Interpretation Comments Creatinine (test code = 2160-0) 1.30 0.57-1.11 H [facility] HospitalBUN/Creatinine Euine6880-97-01 14:21:00* Test Item Value Reference Range Interpretation Comments BUN/Creatinine Ratio (test code = 3097-3) 14 6-25 [facility] HospitalEstimat Glomerular Filtration Rate 2019-03-07 14:21:00* Test Item Value Reference Range Interpretation Comments Estimat Glomerular Filtration Rate (test code = 217881941) 42 >60 L Ranges were taken from the National Kidney Disease Education Program and the [facility] Kidney Foundation literature.Reference ranges:60 or greater: Fdyaym61-91 ( for 3 consecutive months): Chronic kidney disease 15 or less: Kidney failureUvalde Memorial HospitalGlucose Dnbsm4951-72-30 14:21:00* Test Item Value Reference Range Interpretation Comments Glucose Level (test code = LDF6597) 595 74-118 Results repeated and called to Linnea Sorto RN at 1419 on 03/07/19 by Darlene Dubon. Re ad back and verified.[facility] HospitalCalcium Level 2019-03-07 14:21:00* Test Item Value Reference Range Interpretation Comments Calcium Level (test code = 01745-7) 9.6 8.4-10.2 [facility] HospitalTotal Vkgsccvqr5784-74-45 14:21:00* Test Item Value Reference Range Interpretation Comments Total Bilirubin (test code = 1975-2) 0.3 0.2-1.2 [facility] HospitalAspartate Amino Transf (AST/SGOT) 2019-03-07 14:21:00* Test Item Value Reference Range Interpretation Comments Aspartate Amino Transf (AST/SGOT) (test code = Aspartate Amino Transf (AST/SGOT)) 13 5-34 [facility] HospitalAlanine Aminotransferase (ALT/SGPT) 2019-03-07 14:21:00* Test Item Value Reference Range Interpretation Comments Alanine Aminotransferase (ALT/SGPT) (test code = 1742-6) 9 0-55 [facility] HospitalTotal Epwirwf9391-72-97 14:21:00* Test Item Value Reference Range Interpretation Comments Total Protein (test code = 2885-2) 6.9 6.5-8.1 [facility] HospitalAlbumin2019-05-08 14:21:00* Test Item Value Reference Range Interpretation Comments Albumin (test code = 1751-7) 3.3 3.5-5.0 L [facility] HospitalGlobulin2019-05-08 14:21:00* Test Item Value Reference Range Interpretation Comments Globulin (test code = 09559-8) 3.6 2.3-3.5 H [facility] HospitalAlbumin/Globulin Lqtdp0202-65-18 14:21:00 * Test Item Value Reference Range Interpretation Comments Albumin/Globulin Ratio (test code = 1759-0) 0.9 0.8-2.0 [facility] HospitalAlkaline Ynalwwrribc4113-48-20 14:21:00* Test Item Value Reference Range Interpretation Comments Alkaline Phosphatase (test code = 6768-6) 179 40-150 H [facility] HospitalWhite Blood Peclw8102-72-16 14:11:00* Test Item Value Reference Range Interpretation Comments White Blood Count (test code = 6690-2) 9.28 4.8-10.8 [facility] HospitalRed Blood Ibyqx1194-35-31 14:11:00* Test Item Value Reference Range Interpretation Comments Red Blood Count (test code = 789-8) 4.22 3.6-5.1 [facility] HospitalHemoglobin2019-05-08 14:11:00* Test Item Value Reference Range Interpretation Comments Hemoglobin (test code = 86335-8) 10.9 12.0-16.0 L [facility] HospitalHematocrit2019-05-08 14:11:00* Test Item Value Reference Range Interpretation Comments Hematocrit (test code = 4544-3) 36.2 34.2-44.1 [facility] HospitalMean Corpuscular Nbclas3244-32-40 14:11:00* Test Item Value Reference Range Interpretation Comments Mean Corpuscular Volume (test code = 787-2) 85.8 81-99 [facility] HospitalMean Corpuscular Tmxnxuelbp2886-58-26 14:11:00* Test Item Value Reference Range Interpretation Comments Mean Corpuscular Hemoglobin (test code = 785-6) 25.8 28-32 L [facility] HospitalMean Corpuscular Hemoglobin Concent 2019-03-07 14:11:00* Test Item Value Reference Range Interpretation Comments Mean Corpuscular Hemoglobin Concent (test code = 786-4) 30.1 31-35 L [facility] HospitalRed Cell Distribution Stprk8675-67-83 14:11:00* Test Item Value Reference Range Interpretation Comments Red Cell Distribution Width (test code = 66892-7) 16.6 11.7 -14.4 H [facility] HospitalPlatelet Kdcsb3518-42-31 14:11:00* Test Item Value Reference Range Interpretation Comments Platelet Count (test code = 777-3) 381 140-360 H [facility] HospitalNeutrophils (%) (Auto)2019-03-07 14:11:00 * Test Item Value Reference Range Interpretation Comments Neutrophils (%) (Auto) (test code = 96301-3) 67.0 38.7-80.0 [facility] HospitalLymphocytes (%) (Auto)2019-03-07 14:11:00 * Test Item Value Reference Range Interpretation Comments Lymphocytes (%) (Auto) (test code = 736-9) 25.9 18.0-39.1 [facility] HospitalMonocytes (%) (Auto)2019-03-07 14:11:00* Test Item Value Reference Range Interpretation Comments Monocytes (%) (Auto) (test code = 5905-5) 4.8 4.4-11.3 [facility] HospitalEosinophils (%) (Auto)2019-03-07 14:11:00 * Test Item Value Reference Range Interpretation Comments Eosinophils (%) (Auto) (test code = 713-8) 1.4 0.0-6.0 [facility] HospitalBasophils (%) (Auto)2019-03-07 14:11:00* Test Item Value Reference Range Interpretation Comments Basophils (%) (Auto) (test code = 706-2) 0.6 0.0-1.0 [facility] HospitalIM GRANULOCYTES %2019-03-07 14:11:00* Test Item Value Reference Range Interpretation Comments IM GRANULOCYTES % (test code = IM GRANULOCYTES %) 0.3 0.0- 1.0 [facility] HospitalNeutrophils # (Auto)2019-03-07 14:11:00* Test Item Value Reference Range Interpretation Comments Neutrophils # (Auto) (test code = 751-8) 6.2 2.1-6.9 [facility] HospitalLymphocytes # (Auto)2019-03-07 14:11:00* Test Item Value Reference Range Interpretation Comments Lymphocytes # (Auto) (test code = 93678-9) 2.4 1.0-3.2 [facility] HospitalMonocytes # (Auto)2019-03-07 14:11:00* Test Item Value Reference Range Interpretation Comments Monocytes # (Auto) (test code = 742-7) 0.5 0.2-0.8 [facility] HospitalEosinophils # (Auto)2019-03-07 14:11:00* Test Item Value Reference Range Interpretation Comments Eosinophils # (Auto) (test code = 711-2) 0.1 0.0-0.4 [facility] HospitalBasophils # (Auto)2019-03-07 14:11:00* Test Item Value Reference Range Interpretation Comments Basophils # (Auto) (test code = 704-7) 0.1 0.0-0.1 [facility] HospitalAbsolute Immature Granulocyte (auto 2019-03-07 14:11:00* Test Item Value Reference Range Interpretation Comments Absolute Immature Granulocyte (auto (romelia t code = Absolute Immature Granulocyte (auto) 0.03 0-0.1 [facility] HospitalCARDIAC EHDJGZV6333-15-54 09:27:00<0.02 [facility] HermannCARDIAC IZLRVTM9488-96-34 03:22:00<0.02[facility] HermannCARDIAC UEDHUCX3608-02-81 20:04:0049[facility] HermannCARDIAC OAFVILD0345-61-59 20:04:00< 0.02[facility] HermannCARDIAC DWTNWSZ9712-56-90 20:04:0069[facility] HermannCHEM IWPFU7089-06-48 20:04:002.8[facility] HermannCHEM UNXEW0487-97-27 20:04:001.7 [facility] HermannDRUG AYEUCT3312-61-85 20:04:00See Note (02/27/19 3:04 PM)[facility] HermannDRUG HRHMOA3669-06-15 20:04:00Negative *NA*(02/27/19 3:04 PM)[facility] HermannDRUG MDZCNF6899-78-98 20:04:00Negative *NA*(02/27/19 3:04 PM)[facility] HermannDRUG TKTMQZ5917-53-06 20:04:00Negative *NA*(02/27/19 3:04 PM)[facility] HermannDRUG YMLXLG1467-19-80 20:04:00Negative *NA*(02/27/19 3:04 PM)[facility] HermannDRUG ZCSQRB1429-31-43 20:04:00Positive *ABN*(02/27/19 3:04 PM)[facility] HermannDRUG APQSQC0340-20-38 20:04:00Negative *NA*(02/27/19 3:04 PM)[facility] HermannDRUG XRMAXN2251-21-45 20:04:00Negative *NA*(02/27/19 3:04 PM)[facility] CycyxboPPGRNCNJQLSX7071-76-35 20:04:0012.8[facility] LxsgjqvVMUOYPMWQMVU9873-55-11 20:04:00* Test Item Value Reference Range Interpretation Comments A/G Ratio (test code = A/G Ratio) 0.8 1 0.7-1.6 [facility] LuqqksmIOJTCUWKMSJP0733-97-01 20:04:003.9[facility] HermannELECTROLYTES 2019-02-27 20:04:00* Test Item Value Reference Range Interpretation Comments B/C Ratio (test code = B/C Ratio) 22 1 6-25 [facility] RuxghvsUWTJPBPKMBTX5250-66-97 20:04:0060[facility] HermannELECTROLYTES 2019-02-27 20:04:62823Uheskafw BzbljvnMVQLPRCFSFIF6196-95-83 20:04:63265Ghmbafeq RtypxeyPWZLVEXBHQUJ1840-93-83 20:04:004.8[facility] BjsjsqpFSMOCATQBNCY9864-64-17 20:04:51307Mmivtcxo QeslbadXLOCXWAPGZBW9232-69-50 20:04:001.05[facility] QJMXFXSLMMLN7100-28-90 20:04:0023[facility] YphstoaTKJICNFUETGP4420-12-38 20:04:00 3.3[facility] QeqsnngHBRQELUMPIDL8888-41-27 20:04:007.2[facility] KDPDSIHHJRJD9607-79-92 20:04:009.7[facility] RqeppyiYGHGZHQGEONS3617-89-44 20:04:0027[facility] XarpzpiMRKXUIDQUWXY7001-79-29 20:04:000.3[facility] NTFFXAVUEPQJ8048-81-85 20:04:41045Stmapckb FxuguqzGWARFQVUSOSJ6771-38-17 20:04:0010[facility] VblhdfaNJOKNWMWDPRA6676-20-03 20:04:0015[facility] IHHUDRTQPN7411-60-22 20:04:00* Test Item Value Reference Range Interpretation Comments INR (test code = INR) 0.94 1 0.85-1.17 [facility] RwqufbmDALXWUMPUC8484-53-26 20:04:00* Test Item Value Reference Range Interpretation Comments PT (test code = PT) 12.4 s 12.0-14.7 Memorial JsbgagjFQOPHXVLBJ1687-53-21 20:04:0018.7[facility] HermannHEMATOLOGY 2019-02-27 20:04:74251Btfgqpcc YnbbvgvDHLVGRBBPQ7163-70-63 20:04:0012.3[facility] JpeuxmcBMTITCSIES3945-93-44 20:04:004.32[facility] KgxwrwvQOSXTBYOJE7829-37-22 20:04:0011.6[facility] DaqzcibRKNUZCEBWG7205-11-20 20:04:0035.8[facility] PYQXPYTHIT6560-78-11 20:04:008.9[facility] BngwdpzGVMOYXJYVE5035-53-72 20:04:00 82.8[facility] LfthxncBBLGXIOQYE6454-52-51 20:04:00* Test Item Value Reference Range Interpretation Comments MCH (test code = MCH) 26.8 pg 27.0-31.0 [facility] EgrjnovDUBEETITNT1230-45-32 20:04:0032.4[facility] HermannHEMATOLOGY 2019-02-27 20:04:000.1[facility] WjrmrplPYHEDBZPFC3310-50-99 20:04:000.8[facility] WrhtpvfHCMBRAKZXA0469-38-28 20:04:000.2[facility] VswbogfGFLVHKQFZF1169-52-30 20:04:0025.7[facility] RvymljgWEZIWNFFSX4897-87-78 20:04:001.3[facility] SLTUBTARBV0328-16-29 20:04:005.8[facility] DkujftnNIUOGULSOT6635-16-26 20:04:00 66.4[facility] TybrbflTYDSDGCEYK8397-58-84 20:04:008.1[facility] HermannHEMATOLOGY 2019-02-27 20:04:003.1[facility] JvttkgjKZLIEYYRPA2338-77-24 20:04:000.7[facility] HermannURINE AND WXKCM5460-85-89 20:04:005[facility] HermannURINE AND STOOL 2019-02-27 20:04:001[facility] HermannURINE AND RVQTP2510-29-79 20:04:00<1[facility] HermannURINE AND RPCXA6039-34-16 20:04:00Negative (02/27/19 3:04 PM)[facility]annURINE AND MXHIB3002-87-52 20:04:00Negative (02/27/19 3:04 PM)[facility] HermannURINE AND YUMCJ4948-31-80 20:04:00Negative (02/27/19 3:04 PM)[facility]annURINE AND ZIASX1065-67-56 20:04:00Negative *NA*(02/27/19 3:04 PM)[facility]annURINE AND XMACJ3493-05-40 20:04:00* Test Item Value Reference Range Interpretation Comments UA pH (test code = UA pH) 5.0 1 5.0-8.0 [facility] LUCIS1305-75-78 20:04:00Yellow *NA*(02/27/19 3:04 PM) [facility]annUR[facility] AND ILZZI1808-72-24 20:04:00* Test Item Value Reference Range Interpretation Comments UA Spec Grav (test code = UA Spec Grav) 1.013 1 [facility] SVWYK6939-57-51 20:04:00Clear (02/27/19 3:04 PM) [facility] SINGLE (NOT PORTABLE)2019-02-26 17:03:00 [place] [address] Patient Name: STEPHANIE CAMERON MR #: [id number] : 1960 Age/Sex: 58/F Req #: [id number] Adm Physician: Ordered by: AKBAR MENDEZ NP Report #: [id number] Location: ER Room/Bed: Procedure: [id number] DX/ CHEST SINGLE (NOT PORTABLE) Exam Date: [...] COPY TO: KIARA MENDEZ NP B-Type Natriuretic Szeiplk8911-95-77 15:33:00* Test Item Value Reference Range Interpretation Comments B-Type Natriuretic Peptide (test code = 24836-8) 72.5 0-100 [facility] Ohxziiy9893-68-49 15:33:00* Test Item Value Reference Range Interpretation Comments B-Type Natriuretic Peptide (test code = 62909-2) 72.5 0-100 [facility] Natriuretic Owjddlo2946-78-35 15:33:00* Test Item Value Reference Range Interpretation Comments B-Type Natriuretic Peptide (test code = 77877-0) 72.5 0-100 [facility] Lglyvwh1386-61-34 15:33:00* Test Item Value Reference Range Interpretation Comments B-Type Natriuretic Peptide (test code = 97633-9) 72.5 0-100 [facility] Lkvbuvp4926-38-18 15:33:00* Test Item Value Reference Range Interpretation Comments B-Type Natriuretic Peptide (test code = 77224-7) 72.5 0-100 [facility] Dlibwmm2971-97-38 15:33:00* Test Item Value Reference Range Interpretation Comments B-Type Natriuretic Peptide (test code = 33029-1) 72.5 0-100 [facility] Jyrlwop8095-45-64 15:33:00* Test Item Value Reference Range Interpretation Comments B-Type Natriuretic Peptide (test code = 05729-8) 72.5 0-100 [facility] Osdtfad2653-62-73 15:33:00* Test Item Value Reference Range Interpretation Comments B-Type Natriuretic Peptide (test code = 03138-6) 72.5 0-100 [facility] Ezjqi9618-68-07 15:24:00* Test Item Value Reference Range Interpretation Comments Sodium Level (test code = 2951-2) 132 136-145 L [facility] HospitalPotassium Vmrqn0844-13-17 15:24:00* Test Item Value Reference Range Interpretation Comments Potassium Level (test code = 2823-3) 5.3 3.5-5.1 H [facility] HospitalChloride Ifbjn1626-98-61 15:24:00* Test Item Value Reference Range Interpretation Comments Chloride Level (test code = 2075-0) 96 98-107 L [facility] HospitalCarbon Dioxide Iubrc2297-95-83 15:24:00* Test Item Value Reference Range Interpretation Comments Carbon Dioxide Level (test code = 2028-9) - [facility] HospitalAnion Ele6234-34-31 15:24:00* Test Item Value Reference Range Interpretation Comments Anion Gap (test code = 49568-9) 16.3 8-16 H [facility] HospitalBlood Urea Roepomiz2224-75-80 15:24:00* Test Item Value Reference Range Interpretation Comments Blood Urea Nitrogen (test code = 3094-0) 24 7- [facility] HospitalCreatinine2019-04-29 15:24:00* Test Item Value Reference Range Interpretation Comments Creatinine (test code = 2160-0) 1.22 0.57-1.11 H [facility] HospitalBUN/Creatinine Ppzcj8223-16-03 15:24:00* Test Item Value Reference Range Interpretation Comments BUN/Creatinine Ratio (test code = 3097-3) 20 6- [facility] HospitalEstimat Glomerular Filtration Rate 2019-02-26 15:24:00* Test Item Value Reference Range Interpretation Comments Estimat Glomerular Filtration Rate (test code = 230533493) 46 >60 L Ranges were taken from the National Kidney Disease Education Program and the [facility] literature.Reference ranges:60 or greater: Uspbru07-74 ( for 3 consecutive months): Chronic kidney disease 15 or less: Kidney failureUvalde [facility] HospitalGlucose Ihbmw9566-34-67 15:24:00* Test Item Value Reference Range Interpretation Comments Glucose Level (test code = YTF7011) 451 74-118 Results repeated and called to DR GONZALEZ at 1523 on 02/26/19 by Hermes Ruiz. Read back and verified.[facility] HospitalCalcium Level 2019-02-26 15:24:00* Test Item Value Reference Range Interpretation Comments Calcium Level (test code = 09407-4) 9.9 8.4-10.2 [facility] HospitalTotal Bvvxehorv6617-19-82 15:24:00* Test Item Value Reference Range Interpretation Comments Total Bilirubin (test code = 1975-2) 0.4 0.2-1.2 [facility] HospitalAspartate Amino Transf (AST/SGOT) 2019-02-26 15:24:00* Test Item Value Reference Range Interpretation Comments Aspartate Amino Transf (AST/SGOT) (test code = Aspartate Amino Transf (AST/SGOT)) 8 5-34 [facility] HospitalAlanine Aminotransferase (ALT/SGPT) 2019-02-26 15:24:00* Test Item Value Reference Range Interpretation Comments Alanine Aminotransferase (ALT/SGPT) (test code = 1742-6) 13 0-55 [facility] Cxfszmd7425-35-55 15:24:00* Test Item Value Reference Range Interpretation Comments Total Protein (test code = 2885-2) 7.2 6.5-8.1 [facility] HospitalAlbumin2019-04-29 15:24:00* Test Item Value Reference Range Interpretation Comments Albumin (test code = 1751-7) 3.3 3.5-5.0 L [facility] HospitalGlobulin2019-04-29 15:24:00* Test Item Value Reference Range Interpretation Comments Globulin (test code = 62120-8) 3.9 2.3-3.5 H [facility] HospitalAlbumin/Globulin Tsxoo5765-29-90 15:24:00 * Test Item Value Reference Range Interpretation Comments Albumin/Globulin Ratio (test code = 1759-0) 0.8 0.8-2.0 [facility] HospitalAlkaline Bemmxsekjrf4925-63-84 15:24:00* Test Item Value Reference Range Interpretation Comments Alkaline Phosphatase (test code = 6768-6) 176 40-150 H [facility] HospitalCreatine Xpsbqx0533-37-09 15:24:00* Test Item Value Reference Range Interpretation Comments Creatine Kinase (test code = 2157-6) 36 29-168 [facility] HospitalCreatine Kinase OO6223-86-47 15:24:00* Test Item Value Reference Range Interpretation Comments Creatine Kinase MB (test code = 77572-0) 0.70 0-5.0 [facility] HospitalTroponin H7015-61-72 15:24:00* Test Item Value Reference Range Interpretation Comments Troponin I (test code = TNZ3645) < 0.001 0-0.300 [facility] [place] Lircwh7228-63-22 15:24:00* Test Item Value Reference Range Interpretation Comments Creatine Kinase (test code = 2157-6) 36 29-168 [facility] HospitalCreatine Kinase EW8206-36-92 15:24:00* Test Item Value Reference Range Interpretation Comments Creatine Kinase MB (test code = 71989-6) 0.70 0-5.0 [facility] HospitalTremerald[facility] hospitalni K6004-37-38 15:24:00* Test Item Value Reference Range Interpretation Comments Troponin I (test code = WYD1867) < 0.001 0-0.300 [facility] HospitalProthrombin Lavd2114-58-18 15:12:00* Test Item Value Reference Range Interpretation Comments Prothrombin Time (test code = 5902-2) 12.7 11.9-14.5 [facility] HospitalProthromb Time International Ratio 2019-02-26 15:12:00* Test Item Value Reference Range Interpretation Comments Prothromb Time International Ratio (test code = 6301-6) 0.91 Oral Anticoagulant Therapy INR Values:1. Low Intensity Therapy 1.5 - 2.02 . Moderate Intensity Therapy 2.0 - 3.03. High Intensity Therapy(1) 2.5 - 3. 54. High Intensity Therapy(2) 3.0 - 4.05. Panic Value INR > 5.0 [facility] HospitalActivated Partial Thromboplast Time 2019-02-26 15:12:00* Test Item Value Reference Range Interpretation Comments Activated Partial Thromboplast Time (test code = 43602-0) 30.9 23.8-35.5 [facility] HospitalProthrombin Qdit8198-82-72 15:12:00* Test Item Value Reference Range Interpretation Comments Prothrombin Time (test code = 5902-2) 12.7 11.9-14.5 [facility] HospitalProthromb Time International Ratio 2019-02-26 15:12:00* Test Item Value Reference Range Interpretation Comments Prothromb Time International Ratio (test code = 6301-6) 0.91 Oral Anticoagulant Therapy INR Values:1. Low Intensity Therapy 1.5 - 2.02 . Moderate Intensity Therapy 2.0 - 3.03. High Intensity Therapy(1) 2.5 - 3. 54. High Intensity Therapy(2) 3.0 - 4.05. Panic Value INR > 5.0 [facility] HospitalActivated Partial Thromboplast Time 2019-02-26 15:12:00* Test Item Value Reference Range Interpretation Comments Activated Partial Thromboplast Time (test code = 92543-1) 30.9 23.8-35.5 [facility] HospitalProthrombin Mxcb8076-03-45 15:12:00* Test Item Value Reference Range Interpretation Comments Prothrombin Time (test code = 5902-2) 12.7 11.9-14.5 [facility] HospitalProthromb Time International Ratio 2019-02-26 15:12:00* Test Item Value Reference Range Interpretation Comments Prothromb Time International Ratio (test code = 6301-6) 0.91 Oral Anticoagulant Therapy INR Values:1. Low Intensity Therapy 1.5 - 2.02 . Moderate Intensity Therapy 2.0 - 3.03. High Intensity Therapy(1) 2.5 - 3. 54. High Intensity Therapy(2) 3.0 - 4.05. Panic Value INR > 5.0 [facility] HospitalActivated Partial Thromboplast Time 2019-02-26 15:12:00* Test Item Value Reference Range Interpretation Comments Activated Partial Thromboplast Time (test code = 98561-0) 30.9 23.8-35.5 [facility] HospitalProthrombin Vdho5722-66-63 15:12:00* Test Item Value Reference Range Interpretation Comments Prothrombin Time (test code = 5902-2) 12.7 11.9-14.5 [facility] HospitalProthromb Time International Ratio 2019-02-26 15:12:00* Test Item Value Reference Range Interpretation Comments Prothromb Time International Ratio (test code = 6301-6) 0.91 Oral Anticoagulant Therapy INR Values:1. Low Intensity Therapy 1.5 - 2.02 . Moderate Intensity Therapy 2.0 - 3.03. High Intensity Therapy(1) 2.5 - 3. 54. High Intensity Therapy(2) 3.0 - 4.05. Panic Value INR > 5.0 [facility] HospitalActivated Partial Thromboplast Time 2019-02-26 15:12:00* Test Item Value Reference Range Interpretation Comments Activated Partial Thromboplast Time (test code = 80028-9) 30.9 23.8-35.5 [facility] HospitalProthrombin Ruub1023-84-76 15:12:00* Test Item Value Reference Range Interpretation Comments Prothrombin Time (test code = 5902-2) 12.7 11.9-14.5 [facility] HospitalProthromb Time International Ratio 2019-02-26 15:12:00* Test Item Value Reference Range Interpretation Comments Prothromb Time International Ratio (test code = 6301-6) 0.91 Oral Anticoagulant Therapy INR Values:1. Low Intensity Therapy 1.5 - 2.02 . Moderate Intensity Therapy 2.0 - 3.03. High Intensity Therapy(1) 2.5 - 3. 54. High Intensity Therapy(2) 3.0 - 4.05. Panic Value INR > 5.0 [facility] HospitalActivated Partial Thromboplast Time 2019-02-26 15:12:00* Test Item Value Reference Range Interpretation Comments Activated Partial Thromboplast Time (test code = 66589-0) 30.9 23.8-35.5 [facility] HospitalProthrombin Jllp9224-29-62 15:12:00* Test Item Value Reference Range Interpretation Comments Prothrombin Time (test code = 5902-2) 12.7 11.9-14.5 [facility] HospitalProthromb Time International Ratio 2019-02-26 15:12:00* Test Item Value Reference Range Interpretation Comments Prothromb Time International Ratio (test code = 6301-6) 0.91 Oral Anticoagulant Therapy INR Values:1. Low Intensity Therapy 1.5 - 2.02 . Moderate Intensity Therapy 2.0 - 3.03. High Intensity Therapy(1) 2.5 - 3. 54. High Intensity Therapy(2) 3.0 - 4.05. Panic Value INR > 5.0 [facility] HospitalActivated Partial Thromboplast Time 2019-02-26 15:12:00* Test Item Value Reference Range Interpretation Comments Activated Partial Thromboplast Time (test code = 64342-1) 30.9 23.8-35.5 [facility] HospitalProthrombin Lfuz5320-80-68 15:12:00* Test Item Value Reference Range Interpretation Comments Prothrombin Time (test code = 5902-2) 12.7 11.9-14.5 [facility] HospitalProthromb Time International Ratio 2019-02-26 15:12:00* Test Item Value Reference Range Interpretation Comments Prothromb Time International Ratio (test code = 6301-6) 0.91 Oral Anticoagulant Therapy INR Values:1. Low Intensity Therapy 1.5 - 2.02 . Moderate Intensity Therapy 2.0 - 3.03. High Intensity Therapy(1) 2.5 - 3. 54. High Intensity Therapy(2) 3.0 - 4.05. Panic Value INR > 5.0 [facility] HospitalActivated Partial Thromboplast Time 2019-02-26 15:12:00* Test Item Value Reference Range Interpretation Comments Activated Partial Thromboplast Time (test code = 27023-9) 30.9 23.8-35.5 [facility] HospitalProthrombin Pqzl5741-60-36 15:12:00* Test Item Value Reference Range Interpretation Comments Prothrombin Time (test code = 5902-2) 12.7 11.9-14.5 [facility] HospitalProthromb Time International Ratio 2019-02-26 15:12:00* Test Item Value Reference Range Interpretation Comments Prothromb Time International Ratio (test code = 6301-6) 0.91 Oral Anticoagulant Therapy INR Values:1. Low Intensity Therapy 1.5 - 2.02 . Moderate Intensity Therapy 2.0 - 3.03. High Intensity Therapy(1) 2.5 - 3. 54. High Intensity Therapy(2) 3.0 - 4.05. Panic Value INR > 5.0 [facility] HospitalActivated Partial Thromboplast Time 2019-02-26 15:12:00* Test Item Value Reference Range Interpretation Comments Activated Partial Thromboplast Time (test code = 61827-5) 30.9 23.8-35.5 [facility] HospitalWhite Blood Lmfmw8726-29-59 15:07:00* Test Item Value Reference Range Interpretation Comments White Blood Count (test code = 6690-2) 13.84 4.8-10.8 H [facility] HospitalRed Blood Ywrqn1261-47-18 15:07:00* Test Item Value Reference Range Interpretation Comments Red Blood Count (test code = 789-8) 4.14 3.6-5.1 [facility] HospitalHemoglobin2019-04-29 15:07:00* Test Item Value Reference Range Interpretation Comments Hemoglobin (test code = 26933-1) 11.0 12.0-16.0 L [facility] HospitalHematocrit2019-04-29 15:07:00* Test Item Value Reference Range Interpretation Comments Hematocrit (test code = 4544-3) 34.8 34.2-44.1 [facility] HospitalMean Corpuscular Kmpaie6839-26-45 15:07:00* Test Item Value Reference Range Interpretation Comments Mean Corpuscular Volume (test code = 787-2) 84.1 81-99 [facility] HospitalMean Corpuscular Fdpznhxvmo2209-96-35 15:07:00* Test Item Value Reference Range Interpretation Comments Mean Corpuscular Hemoglobin (test code = 785-6) 26.6 28-32 L [facility] HospitalMean Corpuscular Hemoglobin Concent 2019-02-26 15:07:00* Test Item Value Reference Range Interpretation Comments Mean Corpuscular Hemoglobin Concent (test code = 786-4) 31.6 31-35 [facility] HospitalRed Cell Distribution Qxvez1878-59-41 15:07:00* Test Item Value Reference Range Interpretation Comments Red Cell Distribution Width (test code = 87509-7) 17.5 11.7 -14.4 H [facility] HospitalPlatelet Dwiyj7510-60-93 15:07:00* Test Item Value Reference Range Interpretation Comments Platelet Count (test code = 777-3) 360 140-360 [facility] HospitalNeutrophils (%) (Auto)2019-02-26 15:07:00 * Test Item Value Reference Range Interpretation Comments Neutrophils (%) (Auto) (test code = 09880-8) 65.7 38.7-80.0 [facility] HospitalLymphocytes (%) (Auto)2019-02-26 15:07:00 * Test Item Value Reference Range Interpretation Comments Lymphocytes (%) (Auto) (test code = 736-9) 27.0 18.0-39.1 [facility] HospitalMonocytes (%) (Auto)2019-02-26 15:07:00* Test Item Value Reference Range Interpretation Comments Monocytes (%) (Auto) (test code = 5905-5) 5.1 4.4-11.3 [facility] HospitalEosinophils (%) (Auto)2019-02-26 15:07:00 * Test Item Value Reference Range Interpretation Comments Eosinophils (%) (Auto) (test code = 713-8) 0.9 0.0-6.0 [facility] HospitalBasophils (%) (Auto)2019-02-26 15:07:00* Test Item Value Reference Range Interpretation Comments Basophils (%) (Auto) (test code = 706-2) 0.6 0.0-1.0 [facility] HospitalIM GRANULOCYTES %2019-02-26 15:07:00* Test Item Value Reference Range Interpretation Comments IM GRANULOCYTES % (test code = IM GRANULOCYTES %) 0.7 0.0- 1.0 [facility] HospitalNeutrophils # (Auto)2019-02-26 15:07:00* Test Item Value Reference Range Interpretation Comments Neutrophils # (Auto) (test code = 751-8) 9.1 2.1-6.9 H [facility] HospitalLymphocytes # (Auto)2019-02-26 15:07:00* Test Item Value Reference Range Interpretation Comments Lymphocytes # (Auto) (test code = 43473-7) 3.7 1.0-3.2 H [facility] HospitalMonocytes # (Auto)2019-02-26 15:07:00* Test Item Value Reference Range Interpretation Comments Monocytes # (Auto) (test code = 742-7) 0.7 0.2-0.8 [facility] HospitalEosinophils # (Auto)2019-02-26 15:07:00* Test Item Value Reference Range Interpretation Comments Eosinophils # (Auto) (test code = 711-2) 0.1 0.0-0.4 [facility] HospitalBasophils # (Auto)2019-02-26 15:07:00* Test Item Value Reference Range Interpretation Comments Basophils # (Auto) (test code = 704-7) 0.1 0.0-0.1 [facility] HospitalAbsolute Immature Granulocyte (auto 2019-02-26 15:07:00* Test Item Value Reference Range Interpretation Comments Absolute Immature Granulocyte (auto (romelia t code = Absolute Immature Granulocyte (auto) 0.10 0-0.1 [facility] Skwhgzh6161-13-22 16:55:00* Test Item Value Reference Range Interpretation Comments Bedside Glucose (test code = 98499-7) 253 70-120 H Meter ID: [id number] [facility] Texasside Glucose 2019-02-23 16:55:00* Test Item Value Reference Range Interpretation Comments Bedside Glucose (test code = 29332-8) 253 70-120 H Meter ID: [id number] Memorial HospitalCreatine Kinase MB 2019-02-22 15:58:00* Test Item Value Reference Range Interpretation Comments Creatine Kinase MB (test code = 71171-0) 0.80 0-5.0 [facility] HospitalTroponin R9160-76-82 15:58:00* Test Item Value Reference Range Interpretation Comments Troponin I (test code = EQA5966) < 0.001 0-0.300 [facility] HospitalCreatine Raikyh1352-72-95 15:53:00* Test Item Value Reference Range Interpretation Comments Creatine Kinase (test code = 2157-6) 40 29-168 [facility] HospitalDifferential Total Cells Counted 2019-02-22 10:14:00* Test Item Value Reference Range Interpretation Comments Differential Total Cells Counted (test code = Differen tial Total Cells Counted) 100 [facility] HospitalNeutrophils % (Manual)2019-02-22 10:14:00 * Test Item Value Reference Range Interpretation Comments Neutrophils % (Manual) (test code = 04269-6) 47 40-74 [facility] HospitalLymphocytes % (Manual)2019-02-22 10:14:00 * Test Item Value Reference Range Interpretation Comments Lymphocytes % (Manual) (test code = 737-7) 38 19-48 [facility] HospitalMonocytes % (Manual)2019-02-22 10:14:00* Test Item Value Reference Range Interpretation Comments Monocytes % (Manual) (test code = 744-3) 6 3.4-9.0 [facility] HospitalEosinophils % (Manual)2019-02-22 10:14:00 * Test Item Value Reference Range Interpretation Comments Eosinophils % (Manual) (test code = 714-6) 1 0-7 [facility] HospitalBasophils % (Manual)2019-02-22 10:14:00* Test Item Value Reference Range Interpretation Comments Basophils % (Manual) (test code = 62940-1) 1 0-1.5 [facility] HospitalReactive Lxechnxdvdv2521-90-88 10:14:00* Test Item Value Reference Range Interpretation Comments Reactive Lymphocytes (test code = 46234-7) 6 [facility] HospitalBlast Cells %2019-02-22 10:14:00* Test Item Value Reference Range Interpretation Comments Blast Cells % (test code = 01616-2) 1 [facility] HospitalPlatelet Qmjkfzei0358-12-20 10:14:00* Test Item Value Reference Range Interpretation Comments Platelet Estimate (test code = 69524-4) SLIGHTLY INCREASED [facility] HospitalPlatelet Morphology Vapwvmd5446-37-89 10:14:00* Test Item Value Reference Range Interpretation Comments Platelet Morphology Comment (test code = 05622-2) NORMAL [facility] HospitalHypochromasia2019-04-25 10:14:00* Test Item Value Reference Range Interpretation Comments Hypochromasia (test code = 728-6) SLIGHT [facility] HospitalPoikilocytosis2019-04-25 10:14:00* Test Item Value Reference Range Interpretation Comments Poikilocytosis (test code = 779-9) SLIGHT [facility] HospitalAnisocytosis2019-04-25 10:14:00* Test Item Value Reference Range Interpretation Comments Anisocytosis (test code = 702-1) SLIGHT [facility] HospitalRed Cell Morphology Txlpdcl8163-22-00 10:14:00* Test Item Value Reference Range Interpretation Comments Red Cell Morphology Comment (test code = 6742-1) NORMAL [facility] HospitalDifferential Total Cells Counted 2019-02-22 10:14:00* Test Item Value Reference Range Interpretation Comments Differential Total Cells Counted (test code = Differen tial Total Cells Counted) 100 [facility] HospitalNeutrophils % (Manual)2019-02-22 10:14:00 * Test Item Value Reference Range Interpretation Comments Neutrophils % (Manual) (test code = 33042-5) 47 40-74 [facility] HospitalLymphocytes % (Manual)2019-02-22 10:14:00 * Test Item Value Reference Range Interpretation Comments Lymphocytes % (Manual) (test code = 737-7) 38 19-48 [facility] HospitalMonocytes % (Manual)2019-02-22 10:14:00* Test Item Value Reference Range Interpretation Comments Monocytes % (Manual) (test code = 744-3) 6 3.4-9.0 [facility] HospitalEosinophils % (Manual)2019-02-22 10:14:00 * Test Item Value Reference Range Interpretation Comments Eosinophils % (Manual) (test code = 714-6) 1 0-7 [facility] HospitalBasophils % (Manual)2019-02-22 10:14:00* Test Item Value Reference Range Interpretation Comments Basophils % (Manual) (test code = 23803-5) 1 0-1.5 [facility] HospitalReactive Murkawwomjs5495-52-34 10:14:00* Test Item Value Reference Range Interpretation Comments Reactive Lymphocytes (test code = 46323-7) 6 [facility] HospitalBlast Cells %2019-02-22 10:14:00* Test Item Value Reference Range Interpretation Comments Blast Cells % (test code = 94435-3) 1 [facility] HospitalPlatelet Qyjsdejh6169-19-75 10:14:00* Test Item Value Reference Range Interpretation Comments Platelet Estimate (test code = 48396-9) SLIGHTLY INCREASED [facility] HospitalPlatelet Morphology Bksuslw7038-11-95 10:14:00* Test Item Value Reference Range Interpretation Comments Platelet Morphology Comment (test code = 29825-6) NORMAL [facility] HospitalHypochromasia2019-04-25 10:14:00* Test Item Value Reference Range Interpretation Comments Hypochromasia (test code = 728-6) SLIGHT [facility] HospitalPoikilocytosis2019-04-25 10:14:00* Test Item Value Reference Range Interpretation Comments Poikilocytosis (test code = 779-9) SLIGHT [facility] HospitalAnisocytosis2019-04-25 10:14:00* Test Item Value Reference Range Interpretation Comments Anisocytosis (test code = 702-1) SLIGHT [facility] HospitalRed Cell Morphology Rgbbmth1243-84-39 10:14:00* Test Item Value Reference Range Interpretation Comments Red Cell Morphology Comment (test code = 6742-1) NORMAL [facility] HospitalDifferential Total Cells Counted 2019-02-22 10:14:00* Test Item Value Reference Range Interpretation Comments Differential Total Cells Counted (test code = Eitan tial Total Cells Counted) 100 [facility] HospitalNeutrophils % (Manual)2019-02-22 10:14:00 * Test Item Value Reference Range Interpretation Comments Neutrophils % (Manual) (test code = 26076-5) 47 40-74 [facility] HospitalLymphocytes % (Manual)2019-02-22 10:14:00 * Test Item Value Reference Range Interpretation Comments Lymphocytes % (Manual) (test code = 737-7) 38 19-48 [facility] HospitalMonocytes % (Manual)2019-02-22 10:14:00* Test Item Value Reference Range Interpretation Comments Monocytes % (Manual) (test code = 744-3) 6 3.4-9.0 [facility] HospitalEosinophils % (Manual)2019-02-22 10:14:00 * Test Item Value Reference Range Interpretation Comments Eosinophils % (Manual) (test code = 714-6) 1 0-7 [facility] HospitalBasophils % (Manual)2019-02-22 10:14:00* Test Item Value Reference Range Interpretation Comments Basophils % (Manual) (test code = 10644-7) 1 0-1.5 [facility] HospitalReactive Auavmfkvjam3734-30-60 10:14:00* Test Item Value Reference Range Interpretation Comments Reactive Lymphocytes (test code = 12644-5) 6 [facility] HospitalBlast Cells %2019-02-22 10:14:00* Test Item Value Reference Range Interpretation Comments Blast Cells % (test code = 60643-2) 1 [facility] HospitalPlatelet Thuzwwar6951-39-77 10:14:00* Test Item Value Reference Range Interpretation Comments Platelet Estimate (test code = 96662-9) SLIGHTLY INCREASED [facility] HospitalPlatelet Morphology Xwxpsga8313-79-10 10:14:00* Test Item Value Reference Range Interpretation Comments Platelet Morphology Comment (test code = 89900-9) NORMAL [facility] HospitalHypochromasia2019-04-25 10:14:00* Test Item Value Reference Range Interpretation Comments Hypochromasia (test code = 728-6) [facility]IGHT [facility] HospitalPoikilocytosis2019-[facility] 10:14:00* Test Item Value Reference Range Interpretation Comments Poikilocytosis (test code = 779-9) [facility]IGHT [facility] HospitalAnisocytosis2019-04-25 10:14:00* Test Item Value Reference Range Interpretation Comments Anisocytosis (test code = 702-1) [facility]IGHT [facility] HospitalRed Cell Morphology Fpxagth7837-44-57 10:14:00* Test Item Value Reference Range Interpretation Comments Red Cell Morphology Comment (test code = 6742-1) NORMAL [facility] HospitalDifferential Total Cells Counted 2019-02-22 10:14:00* Test Item Value Reference Range Interpretation Comments Differential Total Cells Counted (test code = Differen tial Total Cells Counted) 100 [facility] HospitalNeutrophils % (Manual)2019-02-22 10:14:00 * Test Item Value Reference Range Interpretation Comments Neutrophils % (Manual) (test code = 56969-5) 47 40-74 [facility] HospitalLymphocytes % (Manual)2019-02-22 10:14:00 * Test Item Value Reference Range Interpretation Comments Lymphocytes % (Manual) (test code = 737-7) 38 19-48 [facility] HospitalMonocytes % (Manual)2019-02-22 10:14:00* Test Item Value Reference Range Interpretation Comments Monocytes % (Manual) (test code = 744-3) 6 3.4-9.0 [facility] HospitalEosinophils % (Manual)2019-02-22 10:14:00 * Test Item Value Reference Range Interpretation Comments Eosinophils % (Manual) (test code = 714-6) 1 0-7 [facility] HospitalBasophils % (Manual)2019-02-22 10:14:00* Test Item Value Reference Range Interpretation Comments Basophils % (Manual) (test code = 28002-2) 1 0-1.5 [facility] HospitalReactive Gpoceaqcxwr8749-71-41 10:14:00* Test Item Value Reference Range Interpretation Comments Reactive Lymphocytes (test code = 08177-5) 6 [facility] HospitalBlast Cells %2019-02-22 10:14:00* Test Item Value Reference Range Interpretation Comments Blast Cells % (test code = 01839-7) 1 [facility] HospitalPlatelet Ritnesgk0416-30-20 10:14:00* Test Item Value Reference Range Interpretation Comments Platelet Estimate (test code = 75356-8) SLIGHTLY INCREASED [facility] HospitalPlatelet Morphology Evgefiq7426-29-45 10:14:00* Test Item Value Reference Range Interpretation Comments Platelet Morphology Comment (test code = 36276-6) NORMAL [facility] HospitalHypochromasia2019-04-25 10:14:00* Test Item Value Reference Range Interpretation Comments Hypochromasia (test code = 728-6) SLIGHT [facility] HospitalPoikilocytosis2019-04-25 10:14:00* Test Item Value Reference Range Interpretation Comments Poikilocytosis (test code = 779-9) SLIGHT [facility] HospitalAnisocytosis2019-04-25 10:14:00* Test Item Value Reference Range Interpretation Comments Anisocytosis (test code = 702-1) SLIGHT [facility] HospitalRed Cell Morphology Klshwoy5851-03-46 10:14:00* Test Item Value Reference Range Interpretation Comments Red Cell Morphology Comment (test code = 6742-1) NORMAL [facility] HospitalBasophils % (Manual)2019-02-22 10:14:00* Test Item Value Reference Range Interpretation Comments Basophils % (Manual) (test code = 11967-6) 1 0-1.5 [facility] HospitalBlast Cells %2019-02-22 10:14:00* Test Item Value Reference Range Interpretation Comments Blast Cells % (test code = 78261-7) 1 [facility] HospitalPlatelet Skkvvlyn3537-35-76 10:14:00* Test Item Value Reference Range Interpretation Comments Platelet Estimate (test code = 03599-3) SLIGHTLY INCREASED [facility] HospitalPlatelet Morphology Ofewjhu7184-87-24 10:14:00* Test Item Value Reference Range Interpretation Comments Platelet Morphology Comment (test code = 23760-3) NORMAL [facility] HospitalHypochromasia2019-04-25 10:14:00* Test Item Value Reference Range Interpretation Comments Hypochromasia (test code = 728-6) SLIGHT [facility] HospitalPoikilocytosis2019-04-25 10:14:00* Test Item Value Reference Range Interpretation Comments Poikilocytosis (test code = 779-9) SLIGHT [facility] HospitalAnisocytosis2019-04-25 10:14:00* Test Item Value Reference Range Interpretation Comments Anisocytosis (test code = 702-1) SLIGHT [facility] HospitalRed Cell Morphology Purqefv7693-36-61 10:14:00* Test Item Value Reference Range Interpretation Comments Red Cell Morphology Comment (test code = 6742-1) NORMAL [facility] HospitalBasophils % (Manual)2019-02-22 10:14:00* Test Item Value Reference Range Interpretation Comments Basophils % (Manual) (test code = 59964-6) 1 0-1.5 [facility] HospitalBlast Cells %2019-02-22 10:14:00* Test Item Value Reference Range Interpretation Comments Blast Cells % (test code = 81391-1) 1 [facility] HospitalPlatelet Tgubesfi5170-23-44 10:14:00* Test Item Value Reference Range Interpretation Comments Platelet Estimate (test code = 25931-8) SLIGHTLY INCREASED [facility] HospitalPlatelet Morphology Lzvhsom0970-52-73 10:14:00* Test Item Value Reference Range Interpretation Comments Platelet Morphology Comment (test code = 65833-6) NORMAL [facility] HospitalHypochromasia2019-04-25 10:14:00* Test Item Value Reference Range Interpretation Comments Hypochromasia (test code = 728-6) SLIGHT [facility] HospitalPoikilocytosis2019-04-25 10:14:00* Test Item Value Reference Range Interpretation Comments Poikilocytosis (test code = 779-9) SLIGHT [facility] HospitalAnisocytosis2019-04-25 10:14:00* Test Item Value Reference Range Interpretation Comments Anisocytosis (test code = 702-1) SLIGHT [facility] HospitalRed Cell Morphology Cwjerkn6460-62-65 10:14:00* Test Item Value Reference Range Interpretation Comments Red Cell Morphology Comment (test code = 6742-1) NORMAL [facility] HospitalBasophils % (Manual)2019-02-22 10:14:00* Test Item Value Reference Range Interpretation Comments Basophils % (Manual) (test code = 58720-0) 1 0-1.5 [facility] HospitalBlast Cells %2019-02-22 10:14:00* Test Item Value Reference Range Interpretation Comments Blast Cells % (test code = 50872-4) 1 [facility] HospitalPlatelet Thhsyuli4655-81-15 10:14:00* Test Item Value Reference Range Interpretation Comments Platelet Estimate (test code = 66743-6) SLIGHTLY INCREASED [facility] HospitalPlatelet Morphology Yrxbwxo0202-98-03 10:14:00* Test Item Value Reference Range Interpretation Comments Platelet Morphology Comment (test code = 59225-1) NORMAL [facility] HospitalHypochromasia2019-04-25 10:14:00* Test Item Value Reference Range Interpretation Comments Hypochromasia (test code = 728-6) SLIGHT [facility] HospitalPoikilocytosis2019-04-25 10:14:00* Test Item Value Reference Range Interpretation Comments Poikilocytosis (test code = 779-9) SLIGHT [facility] HospitalAnisocytosis2019-04-25 10:14:00* Test Item Value Reference Range Interpretation Comments Anisocytosis (test code = 702-1) SLIGHT [facility] HospitalRed Cell Morphology Cneupdn1845-20-42 10:14:00* Test Item Value Reference Range Interpretation Comments Red Cell Morphology Comment (test code = 6742-1) NORMAL [facility] HospitalBasophils % (Manual)2019-02-22 10:14:00* Test Item Value Reference Range Interpretation Comments Basophils % (Manual) (test code = 13805-3) 1 0-1.5 [facility] HospitalBlast Cells %2019-02-22 10:14:00* Test Item Value Reference Range Interpretation Comments Blast Cells % (test code = 84685-4) 1 [facility] HospitalPlatelet Mftxsztk5495-34-56 10:14:00* Test Item Value Reference Range Interpretation Comments Platelet Estimate (test code = 99523-3) SLIGHTLY INCREASED [facility] HospitalPlatelet Morphology Ishyyim1462-41-82 10:14:00* Test Item Value Reference Range Interpretation Comments Platelet Morphology Comment (test code = 15601-0) NORMAL [facility] HospitalHypochromasia2019-04-25 10:14:00* Test Item Value Reference Range Interpretation Comments Hypochromasia (test code = 728-6) SLIGHT [facility] HospitalPoikilocytosis2019-04-25 10:14:00* Test Item Value Reference Range Interpretation Comments Poikilocytosis (test code = 779-9) SLIGHT [facility] HospitalAnisocytosis2019-04-25 10:14:00* Test Item Value Reference Range Interpretation Comments Anisocytosis (test code = 702-1) SLIGHT [facility] HospitalRed Cell Morphology Vklplhd3406-04-93 10:14:00* Test Item Value Reference Range Interpretation Comments Red Cell Morphology Comment (test code = 6742-1) [facility]ORMAL [facility] Gjeui2359-35-16 07:09:00* Test Item Value Reference Range Interpretation Comments Sodium Level (test code = 2951-2) 136 136-145 [facility] HospitalPotassium Ylnmk4568-28-21 07:09:00* Test Item Value Reference Range Interpretation Comments Potassium Level (test code = 2823-3) 5.0 3.5-5.1 [facility] HospitalChloride Ivpqu3603-21-83 07:09:00* Test Item Value Reference Range Interpretation Comments Chloride Level (test code = 2075-0) 106 98-107 [facility] HospitalCarbon Dioxide Tnwor0117-49-61 07:09:00* Test Item Value Reference Range Interpretation Comments Carbon Dioxide Level (test code = 2028-9) 22 22-29 [facility] HospitalAnion Xmk0497-56-62 07:09:00* Test Item Value Reference Range Interpretation Comments Anion Gap (test code = 70752-3) 13.0 8-16 [facility] HospitalBlood Urea Qycholsy8453-03-52 07:09:00* Test Item Value Reference Range Interpretation Comments Blood Urea Nitrogen (test code = 3094-0) 23 7-26 [facility] HospitalCreatinine2019-04-25 07:09:00* Test Item Value Reference Range Interpretation Comments Creatinine (test code = 2160-0) 0.83 0.57-1.11 [facility] HospitalBUN/Creatinine Mmlet6061-55-66 07:09:00* Test Item Value Reference Range Interpretation Comments BUN/Creatinine Ratio (test code = 3097-3) 28 6-25 H [facility] HospitalEstimat Glomerular Filtration Rate 2019-02-22 07:09:00* Test Item Value Reference Range Interpretation Comments Estimat Glomerular Filtration Rate (test code = 644701308) > 60 >60 Ranges were taken from the National Kidney Disease Education Program and the [facility] Foundation literature.Reference ranges:60 or greater: Lcsgie52-44 ( for 3 consecutive months): Chronic kidney disease 15 or less: Kidney failureUvalde Memorial HospitalGlucose Fyesg5881-19-14 07:09:00* Test Item Value Reference Range Interpretation Comments Glucose Level (test code = YME2268) 241 74-118 H [facility] HospitalCalcium Jcxqe8734-61-29 07:09:00* Test Item Value Reference Range Interpretation Comments Calcium Level (test code = 97208-5) 9.0 8.4-10.2 [facility] HospitalTotal Wenjmopnv7459-14-73 07:09:00* Test Item Value Reference Range Interpretation Comments Total Bilirubin (test code = 1975-2) 0.4 0.2-1.2 [facility] HospitalAspartate Amino Transf (AST/SGOT) 2019-02-22 07:09:00* Test Item Value Reference Range Interpretation Comments Aspartate Amino Transf (AST/SGOT) (test code = Aspartate Amino Transf (AST/SGOT)) 10 5-34 [facility] HospitalAlanine Aminotransferase (ALT/SGPT) 2019-02-22 07:09:00* Test Item Value Reference Range Interpretation Comments Alanine Aminotransferase (ALT/SGPT) (test code = 1742-6) 11 0-55 [facility] HospitalTotal Wvcvbbk6886-11-81 07:09:00* Test Item Value Reference Range Interpretation Comments Total Protein (test code = 2885-2) 6.3 6.5-8.1 L [facility] HospitalAlbumin2019-04-25 07:09:00* Test Item Value Reference Range Interpretation Comments Albumin (test code = 1751-7) 2.9 3.5-5.0 L [facility] HospitalGlobulin2019-04-25 07:09:00* Test Item Value Reference Range Interpretation Comments Globulin (test code = 07565-6) 3.4 2.3-3.5 [facility] HospitalAlbumin/Globulin Gefzj9310-27-99 07:09:00 * Test Item Value Reference Range Interpretation Comments Albumin/Globulin Ratio (test code = 1759-0) 0.9 0.8-2.0 [facility] HospitalAlkaline Ubjdvjdtuby4888-50-67 07:09:00* Test Item Value Reference Range Interpretation Comments Alkaline Phosphatase (test code = 6768-6) 152 40-150 H [facility] HospitalWhite Blood Fdlth9463-88-86 06:12:00* Test Item Value Reference Range Interpretation Comments White Blood Count (test code = 6690-2) 11.02 4.8-10.8 H [facility] HospitalRed Blood Ygejm7570-15-67 06:12:00* Test Item Value Reference Range Interpretation Comments Red Blood Count (test code = 789-8) 3.90 3.6-5.1 [facility] HospitalHemoglobin2019-04-25 06:12:00* Test Item Value Reference Range Interpretation Comments Hemoglobin (test code = 68961-4) 10.2 12.0-16.0 L [facility] HospitalHematocrit2019-04-25 06:12:00* Test Item Value Reference Range Interpretation Comments Hematocrit (test code = 4544-3) 34.0 34.2-44.1 L [facility] HospitalMean Corpuscular Dxdggy6670-71-69 06:12:00* Test Item Value Reference Range Interpretation Comments Mean Corpuscular Volume (test code = 787-2) 87.2 81-99 [facility] HospitalMean Corpuscular Dmhvsjghju8553-90-57 06:12:00* Test Item Value Reference Range Interpretation Comments Mean Corpuscular Hemoglobin (test code = 785-6) 26.2 28-32 L [facility] HospitalMean Corpuscular Hemoglobin Concent 2019-02-22 06:12:00* Test Item Value Reference Range Interpretation Comments Mean Corpuscular Hemoglobin Concent (test code = 786-4) 30.0 31-35 L [facility] HospitalRed Cell Distribution Luuiq3262-28-01 06:12:00* Test Item Value Reference Range Interpretation Comments Red Cell Distribution Width (test code = 49453-5) 17.3 11.7 -14.4 H [facility] HospitalPlatelet Gokin7668-41-50 06:12:00* Test Item Value Reference Range Interpretation Comments Platelet Count (test code = 777-3) 369 140-360 H [facility] HospitalNeutrophils (%) (Auto)2019-02-22 06:12:00 * Test Item Value Reference Range Interpretation Comments Neutrophils (%) (Auto) (test code = 57655-9) 49.3 38.7-80.0 [facility] HospitalLymphocytes (%) (Auto)2019-02-22 06:12:00 * Test Item Value Reference Range Interpretation Comments Lymphocytes (%) (Auto) (test code = 736-9) 41.7 18.0-39.1 H [facility] HospitalMonocytes (%) (Auto)2019-02-22 06:12:00* Test Item Value Reference Range Interpretation Comments Monocytes (%) (Auto) (test code = 5905-5) 5.9 4.4-11.3 [facility] HospitalEosinophils (%) (Auto)2019-02-22 06:12:00 * Test Item Value Reference Range Interpretation Comments Eosinophils (%) (Auto) (test code = 713-8) 1.7 0.0-6.0 [facility] HospitalBasophils (%) (Auto)2019-02-22 06:12:00* Test Item Value Reference Range Interpretation Comments Basophils (%) (Auto) (test code = 706-2) 0.8 0.0-1.0 [facility] HospitalIM GRANULOCYTES %2019-02-22 06:12:00* Test Item Value Reference Range Interpretation Comments IM GRANULOCYTES % (test code = IM GRANULOCYTES %) 0.6 0.0- 1.0 [facility] HospitalNeutrophils # (Auto)2019-02-22 06:12:00* Test Item Value Reference Range Interpretation Comments Neutrophils # (Auto) (test code = 751-8) 5.4 2.1-6.9 [facility] HospitalLymphocytes # (Auto)2019-02-22 06:12:00* Test Item Value Reference Range Interpretation Comments Lymphocytes # (Auto) (test code = 85905-9) 4.6 1.0-3.2 H [facility] HospitalMonocytes # (Auto)2019-02-22 06:12:00* Test Item Value Reference Range Interpretation Comments Monocytes # (Auto) (test code = 742-7) 0.7 0.2-0.8 [facility] HospitalEosinophils # (Auto)2019-02-22 06:12:00* Test Item Value Reference Range Interpretation Comments Eosinophils # (Auto) (test code = 711-2) 0.2 0.0-0.4 [facility] HospitalBasophils # (Auto)2019-02-22 06:12:00* Test Item Value Reference Range Interpretation Comments Basophils # (Auto) (test code = 704-7) 0.1 0.0-0.1 [facility] HospitalAbsolute Immature Granulocyte (auto 2019-02-22 06:12:00* Test Item Value Reference Range Interpretation Comments Absolute Immature Granulocyte (auto (romelia t code = Absolute Immature Granulocyte (auto) 0.07 0-0.1 [facility] MKJ1788-71-61 17:57:00* Test Item Value Reference Range Interpretation Comments Urine WBC (test code = 5821-4) NONE 0-5 [facility] YDF3682-55-75 17:57:00* Test Item Value Reference Range Interpretation Comments Urine RBC (test code = 28918-5) NONE 0-5 [facility] Nnmghtyb6089-50-74 17:57:00* Test Item Value Reference Range Interpretation Comments Urine Bacteria (test code = 96496-8) NONE NONE [facility] HospitalUrine Epithelial Xlmko0029-85-73 17:57:00 * Test Item Value Reference Range Interpretation Comments Urine Epithelial Cells (test code = 46366-8) RARE NONE [facility] HospitalUrine RCH3647-17-41 17:57:00* Test Item Value Reference Range Interpretation Comments Urine WBC (test code = 5821-4) NONE 0-5 [facility] HospitalUrine BHG1849-55-32 17:57:00* Test Item Value Reference Range Interpretation Comments Urine RBC (test code = 70247-6) NONE 0-5 [facility] Tqticzph4673-25-30 17:57:00* Test Item Value Reference Range Interpretation Comments Urine Bacteria (test code = 76345-4) NONE NONE [facility] HospitalUrine Epithelial Docpc4724-03-78 17:57:00 * Test Item Value Reference Range Interpretation Comments Urine Epithelial Cells (test code = 22245-2) RARE NONE [facility] Jntlg7440-62-63 17:42:00* Test Item Value Reference Range Interpretation Comments Urine Color (test code = 5778-6) YELLOW YELLOW [facility] HospitalUrine Tfyhjkj4887-00-82 17:42:00* Test Item Value Reference Range Interpretation Comments Urine Clarity (test code = 05736-7) CLEAR CLEAR [facility] HospitalUrine Specific Cukiruo0449-29-79 17:42:00 * Test Item Value Reference Range Interpretation Comments Urine Specific [place] (test code = 5811-5) 1.010 1.010-1.02 5 [facility] HospitalUrine dP9644-94-70 17:42:00* Test Item Value Reference Range Interpretation Comments Urine pH (test code = 23190-5) 5 5-7 [facility] Leukocyte Uaovlzks4211-51-35 17:42:00* Test Item Value Reference Range Interpretation Comments Urine Leukocyte Esterase (test code = 5799-2) NEGATIVE NEGATIVE [facility] Lipktri9680-37-14 17:42:00* Test Item Value Reference Range Interpretation Comments Urine Nitrite (test code = 96350-3) NEGATIVE NEGATIVE [facility] Ftwvovk6929-44-56 17:42:00* Test Item Value Reference Range Interpretation Comments Urine Protein (test code = 5804-0) NEGATIVE NEGATIVE [facility] Glucose (UA)2019-02-21 17:42:00* Test Item Value Reference Range Interpretation Comments Urine Glucose (UA) (test code = 2349-9) 3+ NEGATIVE H [facility] Yyyrfyi1499-40-46 17:42:00* Test Item Value Reference Range Interpretation Comments Urine Ketones (test code = 87964-5) NEGATIVE NEGATIVE [facility] Ycspkbmzwdhv6374-52-90 17:42:00* Test Item Value Reference Range Interpretation Comments Urine Urobilinogen (test code = 69506-5) 0.2 0.2-1 [facility] Lgvvnqicn5031-93-50 17:42:00* Test Item Value Reference Range Interpretation Comments Urine Bilirubin (test code = 1978-6) NEGATIVE NEGATIVE [facility] Mzirj1631-38-38 17:42:00* Test Item Value Reference Range Interpretation Comments Urine Blood (test code = 77682-8) NEGATIVE NEGATIVE [facility] Xmjol8400-30-19 17:42:00* Test Item Value Reference Range Interpretation Comments Urine Color (test code = 5778-6) YELLOW YELLOW [facility] HospitalUrine Vxlfjfh1342-32-80 17:42:00* Test Item Value Reference Range Interpretation Comments Urine Clarity (test code = 09051-6) CLEAR CLEAR [facility] HospitalUrine Specific Dhdzmdj0966-08-94 17:42:00 * Test Item Value Reference Range Interpretation Comments Urine Specific [place] (test code = 5811-5) 1.010 1.010-1.02 5 [facility] HospitalUrine gH2788-27-58 17:42:00* Test Item Value Reference Range Interpretation Comments Urine pH (test code = 49327-5) 5 5-7 [facility] HospitalUrine Leukocyte Tddyzxax1591-52-96 17:42:00* Test Item Value Reference Range Interpretation Comments Urine Leukocyte Esterase (test code = 5799-2) NEGATIVE NEGATIVE [facility] HospitalUrine Ngluzba8008-48-32 17:42:00* Test Item Value Reference Range Interpretation Comments Urine Nitrite (test code = 43980-8) NEGATIVE NEGATIVE [facility] HospitalUrine Jxlqynm1759-30-35 17:42:00* Test Item Value Reference Range Interpretation Comments Urine Protein (test code = 5804-0) NEGATIVE NEGATIVE [facility] HospitalUrine Glucose (UA)2019-02-21 17:42:00* Test Item Value Reference Range Interpretation Comments Urine Glucose (UA) (test code = 2349-9) 3+ NEGATIVE H [facility] HospitalUrine Pwhxchl2524-52-14 17:42:00* Test Item Value Reference Range Interpretation Comments Urine Ketones (test code = 57840-1) NEGATIVE NEGATIVE [facility] Nrkixyogbjvj3842-68-95 17:42:00* Test Item Value Reference Range Interpretation Comments Urine Urobilinogen (test code = 51725-8) 0.2 0.2-1 [facility] HospitalUrine Ezanemvkp1271-15-28 17:42:00* Test Item Value Reference Range Interpretation Comments Urine Bilirubin (test code = 1978-6) NEGATIVE NEGATIVE [facility] HospitalUrine Upoge6190-89-18 17:42:00* Test Item Value Reference Range Interpretation Comments Urine Blood (test code = 24540-8) NEGATIVE NEGATIVE [facility] HospitalB-Type Natriuretic Oajoerr2761-91-10 17:17:00* Test Item Value Reference Range Interpretation Comments B-Type Natriuretic Peptide (test code = 57869-6) 71.6 0-100 [facility] HospitalCHEST 2 OLXKR3154-78-81 14:26:00 [facility] [address] [address] Patient Name: STEPHANIE CAMERON MR #: [id number] : 1960 Age/Sex: 58/F Req #: [id number] Adm Physician: Ordered by: SHANNON GONZALEZ MD Report #: [id number] Location: ER Room/Bed: Procedure: [id number] DX/ CHEST 2 VIEWS Exam Date: 02/21/19 [...] Time (test code = 5902-2) 12.1 11.9-14.5 [facility] HospitalProthromb Time International Ratio 2019-02-21 14:18:00* Test Item Value Reference Range Interpretation Comments Prothromb Time International Ratio (test code = 6301-6) 0.85 Oral Anticoagulant Therapy INR Values:1. Low Intensity Therapy 1.5 - 2.02 . Moderate Intensity Therapy 2.0 - 3.03. High Intensity Therapy(1) 2.5 - 3. 54. High Intensity Therapy(2) 3.0 - 4.05. Panic Value INR > 5.0 [facility] HospitalActivated Partial Thromboplast Time 2019-02-21 14:18:00* Test Item Value Reference Range Interpretation Comments Activated Partial Thromboplast Time (test code = 79564-0) 32.0 23.8-35.5 [facility] HospitalANEMIA QGOTG5084-62-12 13:46:0023[facility] HermannANEMIA GSLBA6076-11-35 13:46:19688Hntzyraz HermannANEMIA ORJQN2028-59-94 13:46:008[facility] HermannANEMIA HBZPJ6852-54-70 13:46:27798Duolctjg Shabbir ANEMIA FEXTW6581-53-87 13:46:0010.3[facility] HermannANEMIA QNEEV8636-69-11 13:46:74160Lcptkxyy HermannANEMIA CZQTX6894-24-77 13:46:0032[facility] HermannCHEM HJIEE1310-53-13 13:46:85100Abcsnqjs ByfclqlPXIUVDLMQU5468-74-65 13:46:0029.9 Memorial MnaqqubBNCHTHHUHR5313-26-31 13:46:0082.9[facility] HermannHEMATOLOGY 2019-02-06 13:46:0018.0[facility]orial TqppvwvOJJBIIVEHT6545-67-45 13:46:0031.7[facility]orial DlejvwtZIQLBAJWPT3761-55-88 13:46:00* Test Item Value Reference Range Interpretation Comments MCH (test code = MCH) 26.2 pg 27.0-31.0 [facility] NaqevzpXXRTSGVGLY3531-64-64 13:46:008.4[facility] HermannHEMATOLOGY 2019-02-06 13:46:27796Ysmjvkzw ZgzwitbITERMIBNJH0471-96-48 13:46:003.60[facility] KiijuhbEDSWPXDPYB1929-57-35 13:46:0011.1[facility]orial DyzsjuiVFPFMNFNPC8401-06-09 13:46:009.5[facility]orial FetbrboBALPXUOQRH7407-15-29 13:46:001.9[facility] WOYUUGSEEZ2203-19-90 12:13:00* Test Item Value Reference Range Interpretation Comments PTT (test code = PTT) 72.9 s 22.9-35.8 [facility] YlijjntOPIXHDIJEA9226-97-50 03:42:00* Test Item Value Reference Range Interpretation Comments PTT (test code = PTT) 65.4 s 22.9-35.8 [facility] WwdsqvaVPWRKDFGPW1235-24-94 18:34:00* Test Item Value Reference Range Interpretation Comments PTT (test code = PTT) 48.0 s 22.9-35.8 [facility] HermannCHEM AWONA8796-01-63 12:14:0098[facility]annCHEM PANEL 2019-02-04 12:14:004.4[facility]annCHEM CMCZT2703-90-43 12:14:31067Yppiicsa HermannCHEM WDUCX3104-77-76 12:14:0014[facility]annCHEM ORSCQ9466-20-82 12:14:40684Uraxnepl HermannCHEM OTWUE2758-33-65 12:14:70514Zijsvzqn HermannCHEM GFLCH1479-13-25 12:14:000.69[facility]annCHEM XGPKD7688-24-39 12:14:0030 [facility]CHE[facility] DCXER0268-72-47 12:14:007.4[facility]annCHEM PANEL 2019-02-04 12:14:009.2[facility] WeylmegYHESNPGCQK2799-29-26 12:14:003.70[facility] IbbbbpyFOCOLLYUYF0196-07-90 12:14:009.6[facility] XjgrdtpTEZDQTAKQE5349-87-19 12:14:39863Ekmsuubv YdkyfjcTRQZEWEAUC4181-73-07 12:14:008.3[facility] RMAEWSFIJT0614-13-11 12:14:007.3[facility] LmqfcfqQRKPULTGDH1594-78-47 12:14:00 31.0[facility] OlxbkydQAKKLZIYUM5132-79-49 12:14:0018.0[facility]annHEMATOLOGY 2019-02-04 12:14:0083.8[facility] MyqzqyyASEDOBDUUH3740-20-48 12:14:0031.0[facility] LksbsodVSOFQFYCQV9407-95-47 12:14:00* Test Item Value Reference Range Interpretation Comments MCH (test code = MCH) 26.0 pg 27.0-31.0 [facility]annCHE[facility] IQARY8288-70-93 02:23:0060[facility]annCHEM PANEL 2019-02-04 02:23:0019[facility]annCHEM KKDWA4502-81-21 02:23:75948Whbhfkhw HermannCHEM MTTPA1715-56-00 02:23:0010.4[facility]annCHEM IUDXD7997-04-87 02:23:0027[facility]annCHEM GMKAR6414-73-36 02:23:05376Hftxplzy HermannCHEM YKPPB5048-24-62 02:23:54687Bxximqfx HermannCHEM IAVOD5775-36-89 02:23:005.4 [facility] NGLEP0074-18-25 02:23:009.1[facility]annCHEM PANEL 2019-02-04 02:23:001.04[facility] HermannCARDIAC ODOPHMJ8464-45-80 13:19:001.40 [facility] OcanrttOAHMAXURGN2988-85-59 06:51:0033.8[facility]annHEMATOLOGY 2019-02-03 06:51:006.3[facility] MidbxijXRBSATYODE3115-33-86 06:51:0058.8[facility] JgzswmdPGKMFUPQKU4236-74-07 06:51:000.5[facility] IlxmbeeBWKZOQEKPX4476-79-69 06:51:000.6[facility] QiqwwbkXTTGXRYIBL9437-91-48 06:51:005.5[facility] MSXDVGYBKP4245-08-55 06:51:003.2[facility] EfmpfdyQJOJODRBUE9054-22-48 06:51:000.6 [facility] NvctogzEDNJJQOLXN6508-01-80 06:51:000.1[facility]annHEMATOLOGY 2019-02-03 06:51:0030.4[facility] SgfjwhyFUKHSGNMXR2976-23-77 06:51:0083.2[facility] YtkkbpwAOQJCAKKFU5730-70-02 06:51:003.65[facility] InveyicQQZPFWOTSK2923-93-92 06:51:009.6[facility] CsfjigpWEBMZYDUJH6455-78-87 06:51:00* Test Item Value Reference Range Interpretation Comments MCH (test code = MCH) 26.3 pg 27.0-31.0 [facility] EvaejzsGUFXMNUANJ8995-85-83 06:51:009.4[facility]annHEMATOLOGY 2019-02-03 06:51:98509Hlemfein OkcxyreSOHVJECVYA0802-15-64 06:51:0031.5[facility] TddcmrjFEUXKLERVA9210-50-32 06:51:008.0[facility] MiclnwuJJJGPUSOBQ1349-17-97 06:51:0018.0[facility]annURINE AND PYFGQ2799-18-98 03:54:00Clear (02/02/19 10:54 PM)[facility] AND AQWPX8836-29-60 03:54:00* Test Item Value Reference Range Interpretation Comments UA Spec Grav (test code = UA Spec Grav) 1.008 1 [facility] OASAH8633-53-82 03:54:00* Test Item Value Reference Range Interpretation Comments UA pH (test code = UA pH) 5.0 1 5.0-8.0 [facility] AUNTB1949-62-43 03:54:00Negative (02/02/19 10:54 PM) [facility] LADUS2493-25-53 03:54:001[facility] AND LFJHR4940-75-34 03:54:001[facility] AND RURGX3260-05-59 03:54:00 Negative (02/02/19 10:54 PM)[facility] PLHNF8756-44-76 03:54:00 Trace *ABN*(02/02/19 10:54 PM)[facility] ZVUEA9798-86-57 03:54:001 [facility] DVBIP3048-59-99 03:54:00Negative (02/02/19 10:54 PM) [facility] QLUCH2634-35-15 03:54:00Negative *NA*(02/02/19 10:54 PM) [facility] BGFXL4425-36-27 03:54:00Negative *NA*(02/02/19 10:54 PM) [facility]annCARDIAC QFNJHNS7550-62-05 23:29:002.90[facility]annCARDIAC GZQPQVF0019-52-71 22:14:002.70[facility]annCHEM WKHGQ6504-54-95 22:14:002.6 [facility]CHE[facility] YZTAD7222-47-68 22:14:001.9[facility]annCHEM PANEL 2019-02-02 22:14:0043[facility]annCHEM KMJCI8077-39-56 22:14:0044[facility]annCHEM FMMOX5470-62-65 22:14:000.3[facility]annCHEM WCVDS1445-86-25 22:14:65288Mcfkcelb HermannCHEM OFDQD0843-94-63 22:14:006.4[facility]annCHEM RHVRO0423-13-83 22:14:002.7[facility]annCHEM KMPBM1690-17-20 22:14:63381 [facility]annCHE[facility] ZSDLI7939-81-40 22:14:61568Lmuatioo HermannCHEM PANEL 2019-02-02 22:14:0026[facility]annCHEM BUSBT8347-98-12 22:14:008.8[facility]annCHEM TNVTV3049-60-10 22:14:001.35[facility]annCHEM NXDRA6863-36-50 22:14:0029[facility]annCHEM CKBNP4769-13-01 22:14:004.2[facility]annCHEM SMUXN5857-67-82 22:14:18539Tlsgzcla HermannCHEM LEGAV0059-23-52 22:14:0023 [facility]annCHEM IBZQG9904-32-67 22:14:0014[facility]annCHEM PANEL 2019-02-02 22:14:00* Test Item Value Reference Range Interpretation Comments A/G Ratio (test code = A/G Ratio) 0.7 1 0.7-1.6 [facility]annCHE[facility] IIOKO0805-63-82 22:14:003.7[facility]annCHEM PANEL 2019-02-02 22:14:00* Test Item Value Reference Range Interpretation Comments B/C Ratio (test code = B/C Ratio) 21 1 6-25 [facility]annCHEM ZOYBM9799-63-48 22:14:008.2[facility] HermannHEMATOLOGY 2019-02-02 22:14:0032.8[facility] PgyovphSWSCNESEXS7161-70-69 22:14:000.8[facility] KenbqwqHTHMMDXYPV7476-15-45 22:14:000.2[facility] UhrhsgfEBWIBZHGZC3563-99-43 22:14:007.5[facility] VoffzrrRXVGSIGECN7823-93-24 22:14:0058.7[facility] QGUMVCYGIC0305-64-23 22:14:000.1[facility] SlrqgwtWTWTHGQIME6035-82-27 22:14:000.9 [facility] StciydgFKKHXULCLF7929-19-28 22:14:004.0[facility] HermannHEMATOLOGY 2019-02-02 22:14:007.2[facility] PszngixIAQHBJUBJI6940-20-44 22:14:00* Test Item Value Reference Range Interpretation Comments INR (test code = INR) 1.09 1 0.85-1.17 [facility] XvjqvhfEKNKKTQFQO8707-22-87 22:14:00* Test Item Value Reference Range Interpretation Comments PT (test code = PT) 13.9 s 12.0-14.7 [facility]KTSPNZBC-N1921-67-21 18:32:00* Test Item Value Reference Range Interpretation Comments TROPONIN-I (test code = TROPI) <0.015 ng/mL 0.00-0.056 N COMPREHENSIVE METABOLIC YNPUG8584-70-35 16:25:00* Test Item Value Reference Range Interpretation [...] code = ALKP) 170 U/L 38-126 H PSTXIH3188-24-19 16:25:00* Test Item Value Reference Range Interpretation Comments LIPASE (test code = LIP) 55 U/L 128-270 L RDUPPPPSG0684-61-24 16:25:00* Test Item Value Reference Range Interpretation Comments MAGNESIUM (test code = MAG) 1.3 mg/dL 1.6-2.3 L CPK-MB RZGYKIL6968-34-69 16:25:00* Test Item Value Reference Range Interpretation Comments CREATINE KINASE (CK) (test code = CK) 34 U/L 26-192 N CKMB (test code = CKMBT) 0.7 ng/mL 0.0-5.0 N RELATIVE % INDEX (test code = REL%) 2.1 % EZRXBYMI-J6190-53-21 16:25:00* Test Item Value Reference Range Interpretation Comments TROPONIN-I (test code = TROPI) <0.015 ng/mL 0.00-0.056 N B-TYPE NATRIURETIC LRWETGW9162-23-96 16:23:00* Test Item Value Reference Range Interpretation Comments B-TYPE NATRIURETIC PEPTIDE (test code = BNP) 16.8 pg/mL 0-100 N F-LYKWC5378-59AHGLF7407-23-89 16:20:00* Test Item Value Reference Range Interpretation Comments D-DIMER (test code = DDIMER) < 100 ng/ml < 600 - XR CHEST 1 Y3454-97-78 16:16:00 Name: STEPHANIE CAMERON [facility] : 1960 Age/S:58 /F [address] [facility] Unit#:[id number] Loc: [place] [address] Phys: Yaakov Cho MD Dis Date: PHONE #: [phone] Status: REG ER FAX #: [phone] Exam Date: 01/18/2019 Reason: CP EXAMS: CPT CODE: [id number] XR CHEST 1 V 39981 EXAM: Chest X-ray, 1 view; CLINICAL HISTORY: Chest pain; FINDINGS: The lungs are clear, no infiltrates, no edema; no effusions; no pneumothorax; normal cardiomediastinal silhouette. IMPRESSION: Normal chest x-ray. at 1616 Reported and signed by: Conor Urrutia M.D. CC: Yaakov Cho MD Technologist: SILVIA AGUIAR, RT(R),CT Trnscrpt Data: 01/18/2019 (1616) Tony Orig Print D/T: S: 01/18/2019 (6895) PAGE 1 Signed Report COMPREHENSIVE METABOLIC ETKYF2321-99-20 16:12:00* Test Item Value Reference Range Interpretation [...] TOTAL (test code = ALKP) IUnit/L 45-117 RWIDUQ2426-33-38 16:12:00* Test Item Value Reference Range Interpretation Comments LIPASE (test code = LIP) Unit/L 144-286 PGLOCLXHQ3793-81-09 16:12:00* Test Item Value Reference Range Interpretation Comments MAGNESIUM (test code = MAG) mg/dL 1.8-2.4 CPK-MB EHXTNZM3414-15-24 16:12:00* Test Item Value Reference Range Interpretation Comments CREATINE KINASE (CK) (test code = CK) IUnit/L 26-208 CKMB (test code = CKMBT) ng/mL 0-6.0 RELATIVE % INDEX (test code = REL%) % ENSAZXIF-Z4995-46-21 16:12:00* Test Item Value Reference Range Interpretation Comments TROPONIN-I (test code = TROPI) ng/mL 0-0.045 CBC W/AUTO EHDL5772-76-49 16:05:00* Test Item Value Reference Range Interpretation [...] DIFF REQUIRED (test code = MDIFF) NO PXLURW6347-61-43 22:37:00 [facility] [address] [address] Patient Name: STEPHANIE CAMERON MR #: [id number] : 1960 Age/Sex: 58/F Req #: [id number] Adm Physician: Ordered by: MARYLU VALDOVINOS MD Report #: [id number] Location: ER Room/Bed: Procedure: [id number] DX/COCCYX [...] COPY TO: MARYLU VALDOVINOS MD LUMBAR 3 NGEX9132-06-87 22:36:00 [address] [address] Patient Name: STEPHANIE CAMERON MR #: [id number] : 1960 Age/Sex: 58/F Req #: [id number] Adm Physician: Ordered by: MARYLU VALDOVINOS MD [...] 2 237 Transcribed By: SCOTT on 12/22/18 9517 COPY TO: DEION VALDOVINOS MD Blood Ucyqyqr3628-18-61 18:18:00* Test Item Value Reference Range Interpretation Comments Blood Culture (test code = 46973189) NO GROWTH AFTER 5 DAYS, FINAL REPORT [facility]2018-12-11 18:18:00* Test Item Value Reference Range Interpretation Comments Blood Culture (test code = 54209168) NO GROWTH AFTER 5 DAYS, FINAL REPORT [facility] Hkpftjf7298-50-33 18:18:00* Test Item Value Reference Range Interpretation Comments Blood Culture (test code = 83764299) NO GROWTH AFTER 5 DAYS, FINAL REPORT [facility] Sygrnbr1291-34-26 18:18:00* Test Item Value Reference Range Interpretation Comments Blood Culture (test code = 28980158) NO GROWTH AFTER 5 DAYS, FINAL REPORT [facility] Vytclly0022-78-83 18:18:00* Test Item Value Reference Range Interpretation Comments Blood Culture (test code = 00318592) NO GROWTH AFTER 5 DAYS, FINAL REPORT [facility]2018-12-11 18:18:00* Test Item Value Reference Range Interpretation Comments Blood Culture (test code = 03604147) NO GROWTH AFTER 5 DAYS, FINAL REPORT [facility] Uqymlfk7808-96-59 18:18:00* Test Item Value Reference Range Interpretation Comments Blood Culture (test code = 74362771) NO GROWTH AFTER 5 DAYS, FINAL REPORT [facility] Vtxpsqg9446-58-86 18:18:00* Test Item Value Reference Range Interpretation Comments Blood Culture (test code = 67012367) NO GROWTH AFTER 5 DAYS, FINAL REPORT [facility] Vmhuqvo3460-27-25 11:32:00* Test Item Value Reference Range Interpretation Comments Bedside Glucose (test code = 42695-7) 172 70-120 H Meter ID: [id number] [facility] Healthcare System Glucose 2018-10-06 11:32:00* Test Item Value Reference Range Interpretation Comments Bedside Glucose (test code = 05917-7) 172 70-120 H Meter ID: [id number] Scott [facility]odium Level 2018-10-06 06:14:00* Test Item Value Reference Range Interpretation Comments Sodium Level (test code = 2951-2) 138 136-145 [facility]Potassium Vmvmb8425-36-75 06:14:00* Test Item Value Reference Range Interpretation Comments Potassium Level (test code = 2823-3) 4.6 3.5-5.1 [facility] HospitalChloride Cusob7601-86-61 06:14:00* Test Item Value Reference Range Interpretation Comments Chloride Level (test code = 2075-0) 108 98-107 H [facility] HospitalCarbon Dioxide Ahegy2641-50-22 06:14:00* Test Item Value Reference Range Interpretation Comments Carbon Dioxide Level (test code = 2028-9) 21 22-29 L [facility] HospitalAnion Bcl9983-00-74 06:14:00* Test Item Value Reference Range Interpretation Comments Anion Gap (test code = 45592-7) 13.6 8-16 [facility] HospitalBlood Urea Koxyjvlx2556-82-94 06:14:00* Test Item Value Reference Range Interpretation Comments Blood Urea Nitrogen (test code = 3094-0) 20 7-26 [facility] HospitalCreatinine2018-12-07 06:14:00* Test Item Value Reference Range Interpretation Comments Creatinine (test code = 2160-0) 0.78 0.57-1.11 [facility] HospitalBUN/Creatinine Cywfh4076-22-65 06:14:00* Test Item Value Reference Range Interpretation Comments BUN/Creatinine Ratio (test code = 3097-3) 26 6-25 H [facility] HospitalEstimat Glomerular Filtration Rate 2018-10-06 06:14:00* Test Item Value Reference Range Interpretation Comments Estimat Glomerular Filtration Rate (test code = 813215597) > 60 >60 Ranges were taken from the National Kidney Disease Education Program and the [facility] literature.Reference ranges:60 or greater: Pyntdx28-48 ( for 3 consecutive months): Chronic kidney disease 15 or less: Kidney failureUvalde Memorial HospitalGlucose Jwbri5133-68-85 06:14:00* Test Item Value Reference Range Interpretation Comments Glucose Level (test code = YWX1585) 184 74-118 H [facility] HospitalCalcium Nhded4426-48-33 06:14:00* Test Item Value Reference Range Interpretation Comments Calcium Level (test code = 65621-2) 8.4 8.4-10.2 [facility] HospitalTotal Gbboaotgv9575-62-03 06:14:00* Test Item Value Reference Range Interpretation Comments Total Bilirubin (test code = 1975-2) 0.1 0.2-1.2 L [facility] HospitalAspartate Amino Transf (AST/SGOT) 2018-10-06 06:14:00* Test Item Value Reference Range Interpretation Comments Aspartate Amino Transf (AST/SGOT) (test code = Aspartate Amino Transf (AST/SGOT)) 10 5-34 [facility] HospitalAlanine Aminotransferase (ALT/SGPT) 2018-10-06 06:14:00* Test Item Value Reference Range Interpretation Comments Alanine Aminotransferase (ALT/SGPT) (test code = 1742-6) 6 0-55 [facility] HospitalTotal Mewtcep9752-30-67 06:14:00* Test Item Value Reference Range Interpretation Comments Total Protein (test code = 2885-2) 5.8 6.5-8.1 L [facility] HospitalAlbumin2018-12-07 06:14:00* Test Item Value Reference Range Interpretation Comments Albumin (test code = 1751-7) 2.7 3.5-5.0 L [facility] HospitalGlobulin2018-12-07 06:14:00* Test Item Value Reference Range Interpretation Comments Globulin (test code = 25180-3) 3.1 2.3-3.5 [facility] HospitalAlbumin/Globulin Cdrgx9279-27-91 06:14:00 * Test Item Value Reference Range Interpretation Comments Albumin/Globulin Ratio (test code = 1759-0) 0.9 0.8-2.0 [facility] HospitalAlkaline Gisqqajjjoj6581-02-67 06:14:00* Test Item Value Reference Range Interpretation Comments Alkaline Phosphatase (test code = 6768-6) 118 40-150 [facility] Dallasodium Vgfbo7075-49-05 06:14:00* Test Item Value Reference Range Interpretation Comments Sodium Level (test code = 2951-2) 138 136-145 [facility] HospitalPotassium Erkro7334-90-34 06:14:00* Test Item Value Reference Range Interpretation Comments Potassium Level (test code = 2823-3) 4.6 3.5-5.1 [facility] HospitalChloride Jfpik9142-09-29 06:14:00* Test Item Value Reference Range Interpretation Comments Chloride Level (test code = 2075-0) 108 98-107 H [facility] HospitalCarbon Dioxide Rujmc1248-13-00 06:14:00* Test Item Value Reference Range Interpretation Comments Carbon Dioxide Level (test code = 2028-9) 21 22-29 L [facility] HospitalAnion Trq7031-10-61 06:14:00* Test Item Value Reference Range Interpretation Comments Anion Gap (test code = 93247-6) 13.6 8-16 [facility] HospitalBlood Urea Jifnqdoo5795-60-42 06:14:00* Test Item Value Reference Range Interpretation Comments Blood Urea Nitrogen (test code = 3094-0) 20 7-26 [facility] HospitalCreatinine2018-12-07 06:14:00* Test Item Value Reference Range Interpretation Comments Creatinine (test code = 2160-0) 0.78 0.57-1.11 [facility] HospitalBUN/Creatinine Msehp9992-24-59 06:14:00* Test Item Value Reference Range Interpretation Comments BUN/Creatinine Ratio (test code = 3097-3) 26 6-25 H [facility] HospitalEstimat Glomerular Filtration Rate 2018-10-06 06:14:00* Test Item Value Reference Range Interpretation Comments Estimat Glomerular Filtration Rate (test code = 149643804) > 60 >60 Ranges were taken from the National Kidney Disease Education Program and the [facility] literature.Reference ranges:60 or greater: Fsxlno65-45 ( for 3 consecutive months): Chronic kidney disease 15 or less: Kidney failureUvalde Memorial HospitalGlucose Vifdy7777-75-84 06:14:00* Test Item Value Reference Range Interpretation Comments Glucose Level (test code = TUU7618) 184 74-118 H [facility] HospitalCalcium Suhtg2528-61-38 06:14:00* Test Item Value Reference Range Interpretation Comments Calcium Level (test code = 52202-9) 8.4 8.4-10.2 [facility] HospitalTotal Nelflcdhz0610-73-31 06:14:00* Test Item Value Reference Range Interpretation Comments Total Bilirubin (test code = 1975-2) 0.1 0.2-1.2 L [facility] HospitalAspartate Amino Transf (AST/SGOT) 2018-10-06 06:14:00* Test Item Value Reference Range Interpretation Comments Aspartate Amino Transf (AST/SGOT) (test code = Aspartate Amino Transf (AST/SGOT)) 10 5-34 [facility] HospitalAlanine Aminotransferase (ALT/SGPT) 2018-10-06 06:14:00* Test Item Value Reference Range Interpretation Comments Alanine Aminotransferase (ALT/SGPT) (test code = 1742-6) 6 0-55 [facility] HospitalTotal Pcevidc4973-02-82 06:14:00* Test Item Value Reference Range Interpretation Comments Total Protein (test code = 2885-2) 5.8 6.5-8.1 L [facility] HospitalAlbumin2018-12-07 06:14:00* Test Item Value Reference Range Interpretation Comments Albumin (test code = 1751-7) 2.7 3.5-5.0 L [facility] HospitalGlobulin2018-12-07 06:14:00* Test Item Value Reference Range Interpretation Comments Globulin (test code = 38325-3) 3.1 2.3-3.5 [facility] HospitalAlbumin/Globulin Bclro5443-99-19 06:14:00 * Test Item Value Reference Range Interpretation Comments Albumin/Globulin Ratio (test code = 1759-0) 0.9 0.8-2.0 [facility] HospitalAlkaline Dhvsukfxogf0725-30-33 06:14:00* Test Item Value Reference Range Interpretation Comments Alkaline Phosphatase (test code = 6768-6) 118 40-150 [facility] HospitalCreatine Kinase CM8631-99-84 05:51:00* Test Item Value Reference Range Interpretation Comments Creatine Kinase MB (test code = 81435-5) 1.20 0-5.0 [facility] HospitalTroponin I7557-50-81 05:51:00* Test Item Value Reference Range Interpretation Comments Troponin I (test code = JFA4892) < 0.001 0-0.300 [facility] HospitalCreatine Kinase UJ7453-09-51 05:51:00* Test Item Value Reference Range Interpretation Comments Creatine Kinase MB (test code = 39813-5) 1.20 0-5.0 [facility] HospitalTroponin O3852-88-11 05:51:00* Test Item Value Reference Range Interpretation Comments Troponin I (test code = DUH7647) < 0.001 0-0.300 [facility] HospitalCreatine Dduljf3734-09-20 05:41:00* Test Item Value Reference Range Interpretation Comments Creatine Kinase (test code = 2157-6) 53 29-168 [facility] HospitalCreatine Rsogtq3377-02-74 05:41:00* Test Item Value Reference Range Interpretation Comments Creatine Kinase (test code = 2157-6) 53 29-168 [facility] HospitalWhite Blood Ujebx1485-22-44 05:39:00* Test Item Value Reference Range Interpretation Comments White Blood Count (test code = 6690-2) 11.31 4.8-10.8 H [facility] HospitalRed Blood Kddeu2277-47-32 05:39:00* Test Item Value Reference Range Interpretation Comments Red Blood Count (test code = 789-8) 4.00 3.6-5.1 [facility] HospitalHemoglobin2018-12-07 05:39:00* Test Item Value Reference Range Interpretation Comments Hemoglobin (test code = 04356-2) 10.0 12.0-16.0 L [facility] HospitalHematocrit2018-12-07 05:39:00* Test Item Value Reference Range Interpretation Comments Hematocrit (test code = 4544-3) 32.5 34.2-44.1 L [facility] HospitalMean Corpuscular Tmjfvb2131-34-24 05:39:00* Test Item Value Reference Range Interpretation Comments Mean Corpuscular Volume (test code = 787-2) 81.3 81-99 [facility] HospitalMean Corpuscular Wdkgdgskig9663-18-83 05:39:00* Test Item Value Reference Range Interpretation Comments Mean Corpuscular Hemoglobin (test code = 785-6) 25.0 28-32 L [facility] HospitalMean Corpuscular Hemoglobin Concent 2018-10-06 05:39:00* Test Item Value Reference Range Interpretation Comments Mean Corpuscular Hemoglobin Concent (test code = 786-4) 30.8 31-35 L [facility] HospitalRed Cell Distribution Urhub7364-49-56 05:39:00* Test Item Value Reference Range Interpretation Comments Red Cell Distribution Width (test code = 39111-6) 19.1 11.7 -14.4 H [facility] HospitalPlatelet Qwvbb7365-31-62 05:39:00* Test Item Value Reference Range Interpretation Comments Platelet Count (test code = 777-3) 369 140-360 H [facility] HospitalNeutrophils (%) (Auto)2018-10-06 05:39:00 * Test Item Value Reference Range Interpretation Comments Neutrophils (%) (Auto) (test code = 47723-9) 64.7 38.7-80.0 [facility] HospitalLymphocytes (%) (Auto)2018-10-06 05:39:00 * Test Item Value Reference Range Interpretation Comments Lymphocytes (%) (Auto) (test code = 736-9) 26.9 18.0-39.1 [facility] HospitalMonocytes (%) (Auto)2018-10-06 05:39:00* Test Item Value Reference Range Interpretation Comments Monocytes (%) (Auto) (test code = 5905-5) 6.5 4.4-11.3 [facility] HospitalEosinophils (%) (Auto)2018-10-06 05:39:00 * Test Item Value Reference Range Interpretation Comments Eosinophils (%) (Auto) (test code = 713-8) 1.1 0.0-6.0 [facility] HospitalBasophils (%) (Auto)2018-10-06 05:39:00* Test Item Value Reference Range Interpretation Comments Basophils (%) (Auto) (test code = 706-2) 0.4 0.0-1.0 [facility] HospitalIM GRANULOCYTES %2018-10-06 05:39:00* Test Item Value Reference Range Interpretation Comments IM GRANULOCYTES % (test code = IM GRANULOCYTES %) 0.4 0.0- 1.0 [facility] HospitalNeutrophils # (Auto)2018-10-06 05:39:00* Test Item Value Reference Range Interpretation Comments Neutrophils # (Auto) (test code = 751-8) 7.3 2.1-6.9 H [facility] HospitalLymphocytes # (Auto)2018-10-06 05:39:00* Test Item Value Reference Range Interpretation Comments Lymphocytes # (Auto) (test code = 58895-2) 3.0 1.0-3.2 [facility] HospitalMonocytes # (Auto)2018-10-06 05:39:00* Test Item Value Reference Range Interpretation Comments Monocytes # (Auto) (test code = 742-7) 0.7 0.2-0.8 [facility] HospitalEosinophils # (Auto)2018-10-06 05:39:00* Test Item Value Reference Range Interpretation Comments Eosinophils # (Auto) (test code = 711-2) 0.1 0.0-0.4 [facility] HospitalBasophils # (Auto)2018-10-06 05:39:00* Test Item Value Reference Range Interpretation Comments Basophils # (Auto) (test code = 704-7) 0.0 0.0-0.1 [facility] HospitalAbsolute Immature Granulocyte (auto 2018-10-06 05:39:00* Test Item Value Reference Range Interpretation Comments Absolute Immature Granulocyte (auto (romelia t code = Absolute Immature Granulocyte (auto) 0.04 0-0.1 [facility] HospitalWhite Blood Isvvr9340-63-92 05:39:00* Test Item Value Reference Range Interpretation Comments White Blood Count (test code = 6690-2) 11.31 4.8-10.8 H [facility] HospitalRed Blood Hbihh1807-23-62 05:39:00* Test Item Value Reference Range Interpretation Comments Red Blood Count (test code = 789-8) 4.00 3.6-5.1 [facility] HospitalHemoglobin2018-12-07 05:39:00* Test Item Value Reference Range Interpretation Comments Hemoglobin (test code = 36001-3) 10.0 12.0-16.0 L [facility] HospitalHematocrit2018-12-07 05:39:00* Test Item Value Reference Range Interpretation Comments Hematocrit (test code = 4544-3) 32.5 34.2-44.1 L [facility] Corp[facility] [id number] 05:39:00* Test Item Value Reference Range Interpretation Comments Mean Corpuscular Volume (test code = 787-2) 81.3 81-99 [facility] [id number] 05:39:00* Test Item Value Reference Range Interpretation Comments Mean Corpuscular Hemoglobin (test code = 785-6) 25.0 28-32 L [facility] Hemoglobin Concent 2018-10-06 05:39:00* Test Item Value Reference Range Interpretation Comments Mean Corpuscular Hemoglobin Concent (test code = 786-4) 30.8 31-35 L [facility]Red Cell Distribution Snomn2489-85-60 05:39:00* Test Item Value Reference Range Interpretation Comments Red Cell Distribution Width (test code = 83035-6) 19.1 11.7 -14.4 H [facility] HospitalPlatelet Zndri7965-04-96 05:39:00* Test Item Value Reference Range Interpretation Comments Platelet Count (test code = 777-3) 369 140-360 H [facility] HospitalNeutrophils (%) (Auto)2018-10-06 05:39:00 * Test Item Value Reference Range Interpretation Comments Neutrophils (%) (Auto) (test code = 66003-1) 64.7 38.7-80.0 [facility] HospitalLymphocytes (%) (Auto)2018-10-06 05:39:00 * Test Item Value Reference Range Interpretation Comments Lymphocytes (%) (Auto) (test code = 736-9) 26.9 18.0-39.1 [facility] HospitalMonocytes (%) (Auto)2018-10-06 05:39:00* Test Item Value Reference Range Interpretation Comments Monocytes (%) (Auto) (test code = 5905-5) 6.5 4.4-11.3 [facility] HospitalEosinophils (%) (Auto)2018-10-06 05:39:00 * Test Item Value Reference Range Interpretation Comments Eosinophils (%) (Auto) (test code = 713-8) 1.1 0.0-6.0 [facility] HospitalBasophils (%) (Auto)2018-10-06 05:39:00* Test Item Value Reference Range Interpretation Comments Basophils (%) (Auto) (test code = 706-2) 0.4 0.0-1.0 [facility] HospitalIM GRANULOCYTES %2018-10-06 05:39:00* Test Item Value Reference Range Interpretation Comments IM GRANULOCYTES % (test code = IM GRANULOCYTES %) 0.4 0.0- 1.0 [facility] HospitalNeutrophils # (Auto)2018-10-06 05:39:00* Test Item Value Reference Range Interpretation Comments Neutrophils # (Auto) (test code = 751-8) 7.3 2.1-6.9 H [facility] HospitalLymphocytes # (Auto)2018-10-06 05:39:00* Test Item Value Reference Range Interpretation Comments Lymphocytes # (Auto) (test code = 90006-6) 3.0 1.0-3.2 [facility] HospitalMonocytes # (Auto)2018-10-06 05:39:00* Test Item Value Reference Range Interpretation Comments Monocytes # (Auto) (test code = 742-7) 0.7 0.2-0.8 [facility] HospitalEosinophils # (Auto)2018-10-06 05:39:00* Test Item Value Reference Range Interpretation Comments Eosinophils # (Auto) (test code = 711-2) 0.1 0.0-0.4 [facility] HospitalBasophils # (Auto)2018-10-06 05:39:00* Test Item Value Reference Range Interpretation Comments Basophils # (Auto) (test code = 704-7) 0.0 0.0-0.1 [facility] HospitalAbsolute Immature Granulocyte (auto 2018-10-06 05:39:00* Test Item Value Reference Range Interpretation Comments Absolute Immature Granulocyte (auto (romelia t code = Absolute Immature Granulocyte (auto) 0.04 0-0.1 [facility] HospitalLactic Acid Cgkxk4047-05-76 00:11:00* Test Item Value Reference Range Interpretation Comments Lactic Acid Level (test code = Lactic Acid Level) 10.1 4.5- 19.8 [facility] HospitalLactic Acid Fpdyy6469-55-66 00:11:00* Test Item Value Reference Range Interpretation Comments Lactic Acid Level (test code = Lactic Acid Level) 10.1 4.5- 19.8 [facility] Acid Rugwp1431-81-16 00:11:00* Test Item Value Reference Range Interpretation Comments Lactic Acid Level (test code = Lactic Acid Level) 10.1 4.5- 19.8 [facility] HospitalLactic Acid Pphpq9807-73-25 00:11:00* Test Item Value Reference Range Interpretation Comments Lactic Acid Level (test code = Lactic Acid Level) 10.1 4.5- 19.8 [facility] Vsrsq4158-15-05 00:11:00* Test Item Value Reference Range Interpretation Comments Lactic Acid Level (test code = Lactic Acid Level) 10.1 4.5- 19.8 [facility] HospitalLactic Acid Mugqw0950-59-03 00:11:00* Test Item Value Reference Range Interpretation Comments Lactic Acid Level (test code = Lactic Acid Level) 10.1 4.5- 19.8 [facility] HospitalLactic Acid Lyjld2128-71-73 00:11:00* Test Item Value Reference Range Interpretation Comments Lactic Acid Level (test code = Lactic Acid Level) 10.1 4.5- 19.8 [facility] HospitalLactic Acid Fckjs1376-02-15 00:11:00* Test Item Value Reference Range Interpretation Comments Lactic Acid Level (test code = Lactic Acid Level) 10.1 4.5- 19.8 [facility] HospitalLactic Acid Agghu4226-79-73 00:11:00* Test Item Value Reference Range Interpretation Comments Lactic Acid Level (test code = Lactic Acid Level) 10.1 4.5- 19.8 [facility] HospitalCT ABDOMEN/PELVIS IO0763-22-79 22:49:00 [facility] [place] [address] Patient Name: STEPHANIE CAMERON MR #: [id number] : [birth year] Age/Sex: 58/F Req #: [id number] Adm Physician: Ordered by: JUAN CARLOS CAT MD Report #: [id number] Location: ER Room/Bed: Procedure: [id number] C T/CT ABDOMEN/PELVIS WO Exam Date: 10/05/18 [...] CARLOS CAT MD CHEST SINGLE (PORTABLE)2018-10-05 20:49:00 [place] [address] Patient Name: STEPHANIE CAMERON MR #: [id number] : 1960 Age/Sex: 58/F Req #: [id number] Adm Physician: Ordered by: JUAN CARLOS CAT MD Report #: [id number] Location: ER Room/Bed: Procedure: [id number] D X/CHEST SINGLE (PORTABLE) Exam Date: 10/05/18 [...] 49 COPY TO: KATHYA CAT MD Urine JIZ8614-60-04 19:10:00* Test Item Value Reference Range Interpretation Comments Urine WBC (test code = 5821-4) 0-5 0-5 [facility] HospitalU[facility] PBJ3287-10-49 19:10:00* Test Item Value Reference Range Interpretation Comments Urine RBC (test code = 04451-5) 0-5 0-5 [facility] HospitalUrine Jsyxowqm3558-82-59 19:10:00* Test Item Value Reference Range Interpretation Comments Urine Bacteria (test code = 86502-4) FEW NONE [facility] HospitalUrine Epithelial Caott8714-94-80 19:10:00 * Test Item Value Reference Range Interpretation Comments Urine Epithelial Cells (test code = 42487-8) FEW NONE [facility] HospitalUrine Amorphous Eopehygq2615-81-47 19:10:00* Test Item Value Reference Range Interpretation Comments Urine Amorphous Sediment (test code = 8246-1) MODERATE FEW H [facility] HospitalUrine CRB0469-86-46 19:10:00* Test Item Value Reference Range Interpretation Comments Urine WBC (test code = 5821-4) 0-5 0-5 [facility] HospitalUrine PCN4476-32-59 19:10:00* Test Item Value Reference Range Interpretation Comments Urine RBC (test code = 33580-2) 0-5 0-5 [facility] HospitalUrine Svcpqiye0696-06-52 19:10:00* Test Item Value Reference Range Interpretation Comments Urine Bacteria (test code = 01331-1) FEW NONE [facility] HospitalUrine Epithelial Glwur8136-00-94 19:10:00 * Test Item Value Reference Range Interpretation Comments Urine Epithelial Cells (test code = 37957-9) FEW NONE [facility] HospitalUrine Amorphous Wotngpjo7446-77-64 19:10:00* Test Item Value Reference Range Interpretation Comments Urine Amorphous Sediment (test code = 8246-1) MODERATE FEW H [facility] Amorphous Gjljxauv3182-91-27 19:10:00* Test Item Value Reference Range Interpretation Comments Urine Amorphous Sediment (test code = 8246-1) MODERATE FEW H [facility] Amorphous Tupsxzzs9729-84-16 19:10:00* Test Item Value Reference Range Interpretation Comments Urine Amorphous Sediment (test code = 8246-1) MODERATE FEW H [facility] Amorphous Cwlqcwlo2079-52-48 19:10:00* Test Item Value Reference Range Interpretation Comments Urine Amorphous Sediment (test code = 8246-1) MODERATE FEW H [facility] Amorphous Srddrboe8414-79-17 19:10:00* Test Item Value Reference Range Interpretation Comments Urine Amorphous Sediment (test code = 8246-1) MODERATE FEW H [facility] Amorphous Sgxhdipg3635-56-77 19:10:00* Test Item Value Reference Range Interpretation Comments Urine Amorphous Sediment (test code = 8246-1) MODERATE FEW H [facility] Amorphous Tgcztxgh0788-39-83 19:10:00* Test Item Value Reference Range Interpretation Comments Urine Amorphous Sediment (test code = 8246-1) MODERATE FEW H [facility] Amorphous Mmfawmmm8349-77-33 19:10:00* Test Item Value Reference Range Interpretation Comments Urine Amorphous Sediment (test code = 8246-1) MODERATE FEW H [facility]2018-12-06 18:51:00* Test Item Value Reference Range Interpretation Comments Lipase (test code = 3040-3) [facility]2018-12-06 18:51:00* Test Item Value Reference Range Interpretation Comments Lipase (test code = 3040-3) [facility]2018-12-06 18:51:00* Test Item Value Reference Range Interpretation Comments Lipase (test code = 3040-3) [facility]2018-12-06 18:51:00* Test Item Value Reference Range Interpretation Comments Lipase (test code = 3040-3) [facility] HospitalLipase2018-12-[facility] 18:51:00* Test Item Value Reference Range Interpretation Comments Lipase (test code = 3040-3) [facility] HospitalLipase2018-12-06 18:51:00* Test Item Value Reference Range Interpretation Comments Lipase (test code = 3040-3) [facility] HospitalLipase2018-12-06 18:51:00* Test Item Value Reference Range Interpretation Comments Lipase (test code = 3040-3) [facility] HospitalLipase2018-12-06 18:51:00* Test Item Value Reference Range Interpretation Comments Lipase (test code = 3040-3) [facility] HospitalLipase2018-12-06 18:51:00* Test Item Value Reference Range Interpretation Comments Lipase (test code = 3040-3) [facility] HospitalUrine Tirxz8953-00-28 18:50:00* Test Item Value Reference Range Interpretation Comments Urine Color (test code = 5778-6) YELLOW YELLOW [facility] HospitalUrine Ochyhal5200-63-76 18:50:00* Test Item Value Reference Range Interpretation Comments Urine Clarity (test code = 03476-5) CLEAR CLEAR [facility] HospitalUrine Specific Zbjldoa5290-82-76 18:50:00 * Test Item Value Reference Range Interpretation Comments Urine Specific [place] (test code = 5811-5) 1.020 1.010-1.02 5 [facility] HospitalUrine bN3836-98-24 18:50:00* Test Item Value Reference Range Interpretation Comments Urine pH (test code = 60803-6) 5 5-7 [facility] HospitalU[facility] Leukocyte Pqequfjg6647-63-82 18:50:00* Test Item Value Reference Range Interpretation Comments Urine Leukocyte Esterase (test code = 5799-2) NEGATIVE NEGATIVE [facility] HospitalU[facility] Kqccrsi7978-38-68 18:50:00* Test Item Value Reference Range Interpretation Comments Urine Nitrite (test code = 45305-4) NEGATIVE NEGATIVE [facility] HospitalU[facility] Wuzhgvx5193-40-57 18:50:00* Test Item Value Reference Range Interpretation Comments Urine Protein (test code = 5804-0) NEGATIVE NEGATIVE [facility] Glucose (UA)2018-10-05 18:50:00* Test Item Value Reference Range Interpretation Comments Urine Glucose (UA) (test code = 2349-9) NEGATIVE NEGATIVE [facility] HospitalU[facility] Ixpyzyu6331-35-89 18:50:00* Test Item Value Reference Range Interpretation Comments Urine Ketones (test code = 04010-3) NEGATIVE NEGATIVE [facility] Canqfgqwhork7526-82-74 18:50:00* Test Item Value Reference Range Interpretation Comments Urine Urobilinogen (test code = 22774-3) 0.2 0.2-1 [facility] Gaofdrudm6259-20-74 18:50:00* Test Item Value Reference Range Interpretation Comments Urine Bilirubin (test code = 1978-6) NEGATIVE NEGATIVE [facility] Rfeuw3133-00-03 18:50:00* Test Item Value Reference Range Interpretation Comments Urine Blood (test code = 67116-5) NEGATIVE NEGATIVE [facility] HospitalU[facility] Stuss9021-13-66 18:50:00* Test Item Value Reference Range Interpretation Comments Urine Color (test code = 5778-6) YELLOW YELLOW [facility] HospitalUrine Hufuhqe6756-50-83 18:50:00* Test Item Value Reference Range Interpretation Comments Urine Clarity (test code = 96521-8) CLEAR CLEAR [facility] HospitalU[facility] Specific Enfhwdy0777-58-97 18:50:00 * Test Item Value Reference Range Interpretation Comments Urine Specific [place] (test code = 5811-5) 1.020 1.010-1.02 5 [facility] HospitalUrine rU6042-26-25 18:50:00* Test Item Value Reference Range Interpretation Comments Urine pH (test code = 17744-6) 5 5-7 [facility] HospitalU[facility] Leukocyte Mcpiutty9206-73-14 18:50:00* Test Item Value Reference Range Interpretation Comments Urine Leukocyte Esterase (test code = 5799-2) NEGATIVE NEGATIVE [facility] HospitalU[facility] Nsnbqfd2440-34-63 18:50:00* Test Item Value Reference Range Interpretation Comments Urine Nitrite (test code = 87370-3) NEGATIVE NEGATIVE [facility] HospitalUrine Ulwhfok8017-07-28 18:50:00* Test Item Value Reference Range Interpretation Comments Urine Protein (test code = 5804-0) NEGATIVE NEGATIVE [facility] HospitalUrine Glucose (UA)2018-10-05 18:50:00* Test Item Value Reference Range Interpretation Comments Urine Glucose (UA) (test code = 2349-9) NEGATIVE NEGATIVE [facility] HospitalUrine Mjndkeu6749-81-43 18:50:00* Test Item Value Reference Range Interpretation Comments Urine Ketones (test code = 13000-9) NEGATIVE NEGATIVE [facility] HospitalU[facility] Tnoykyeprihs9814-84-91 18:50:00* Test Item Value Reference Range Interpretation Comments Urine Urobilinogen (test code = 60529-9) 0.2 0.2-1 [facility] HospitalU[facility] Kmtaitieb4581-71-67 18:50:00* Test Item Value Reference Range Interpretation Comments Urine Bilirubin (test code = 1978-6) NEGATIVE NEGATIVE [facility] HospitalUrine Uxuqj2006-21-78 18:50:00* Test Item Value Reference Range Interpretation Comments Urine Blood (test code = 61957-5) NEGATIVE NEGATIVE [facility] HospitalDRUG OLEUDF6505-85-59 18:54:00Negative *NA*(06/12/18 1:54 PM)[facility] HermannDRUG JVTECV7765-77-80 18:54:00Negative *NA*(06/12/18 1:54 PM)[facility] HermannDRUG GPVHXU8292-39-26 18:54:00Negative *NA*(06/12/18 1:54 PM)[facility] HermannDRUG CJLSOU0896-67-07 18:54:00Negative *NA*(06/12/18 1:54 PM)[facility] HermannDRUG UHHMLB8272-06-35 18:54:00Negative *NA*(06/12/18 1:54 PM)[facility] YMOOPS0435-64-37 18:54:00Negative *NA*(06/12/18 1:54 PM)[facility]ann[facility] MSCIKF7196-02-76 18:54:00See Note (06/12/18 1:54 PM)[facility]annDR[facility] ZDVXLH4932-36-18 18:54:00Positive *ABN*(06/12/18 1:54 PM)[facility] TCOUV9753-43-87 18:54:001 [facility] CIMWI7907-39-32 18:54:00Negative (06/12/18 1:54 PM) [facility] JJRSJ5167-66-27 18:54:001[facility] DLGIR6546-60-08 18:54:00Negative (06/12/18 1:54 PM)[facility] VDMDR7421-53-67 18:54:00* Test Item Value Reference Range Interpretation Comments UA Spec Grav (test code = UA Spec Grav) 1.008 1 [facility] YJGXJ1031-47-31 18:54:00* Test Item Value Reference Range Interpretation Comments UA pH (test code = UA pH) 6.0 1 5.0-8.0 [facility] LOABD2133-69-17 18:54:00Clear (06/12/18 1:54 PM) [facility] DBMTQ5817-43-37 18:54:00Negative (06/12/18 1:54 PM) [facility] VIDMV7272-12-73 18:54:00Negative *NA*(06/12/18 1:54 PM) [facility]annCARDIAC UIFVKUP3742-63-92 08:17:00<0.02[facility]annCARDIAC HFNFZXD0370-45-68 08:17:0038[facility]annCARDIAC ABSVQQF9918-15-56 03:11:00< 0.02[facility]annCARDIAC HQZJSUS9126-03-15 03:11:0050[facility] HermannCARDIAC HYRGFQB6459-12-84 19:44:0055[facility] HermannCARDIAC LQKLVZT8490-02-92 19:44:00< 0.02[facility] TzurmkjGSFCADAEHVFC3879-81-52 19:44:0012.7[facility] EHCFHDEZYVXL4259-46-12 19:44:0061[facility] FbtduczWEQDBSZUDISF9580-58-92 19:44:00 8.9[facility] NkpceosABEFCKWKTGIZ2673-85-91 19:44:96143Hkpoiddz Shabbir SWWKRVEMPZPA7331-66-92 19:44:001.03[facility] ThligprJUVTVFLEQVED3360-41-00 19:44:62462Tqznsejo RlpsddhUBLYKAOEFZCH6716-58-35 19:44:004.7[facility] SGERNYIXPZRH3100-18-51 19:44:0028[facility] LzyqguhWQODZOCCJLOJ7876-65-07 19:44:00 20[facility] MincspdVAAUVCNPQGUP2734-13-29 19:44:81859Mhnekxak HermannHEMATOLOGY 2018-06-11 19:44:0068.0[facility] NerszejBICZPNGTUN5682-34-86 19:44:000.5[facility] MxresfgYFXCUMXPLH1095-07-91 19:44:000.1[facility] DpotcvpJVCDKDDSKS8109-07-03 19:44:002.8[facility] XhapdpyPHSXJYIGRX6319-03-18 19:44:004.4[facility] SKEGIUMNSY1600-69-21 19:44:000.1[facility] XzviclbNQZUTJSLAW4887-37-85 19:44:007.3 [facility] NyujejaTCLVDEJKQQ9971-90-02 19:44:001.1[facility] HermannHEMATOLOGY 2018-06-11 19:44:000.5[facility] TtbvqbzYEYDEZVHQN4860-83-39 19:44:0026.0[facility] HxkqyehRJRZFHIBIP8222-93-44 19:44:0032.6[facility] MgdgkomATCESNFHAT2717-07-33 19:44:0079.1[facility] JnjgtqxCKDEXNSTWM1446-25-10 19:44:00* Test Item Value Reference Range Interpretation Comments MCH (test code = MCH) 25.7 pg 27.0-31.0 [facility] KgpjzmfPJPLHRKWHZ2678-49-61 19:44:0032.6[facility] HermannHEMATOLOGY 2018-06-11 19:44:0019.4[facility] PvcudqiYWYMKFWDDW2171-61-09 19:44:12270Hewssnvr SeheiavRNSUNDLEQP8058-50-09 19:44:007.4[facility] DzfzzpzPAWEDASDNX1325-15-57 19:44:0010.6[facility]orial UqvtgrjFGAZIYFKYT6141-15-32 19:44:0010.8[facility] KRVFBKJLAF8149-45-58 19:44:004.13[facility] HermannPotassium Fnrae1651-66-75 20:20:00* Test Item Value Reference Range Interpretation Comments Potassium Level (test code = 2823-3) 4.6 3.5-5.1 [facility] HospitalCreatine Kinase DR1894-62-40 19:38:00* Test Item Value Reference Range Interpretation Comments Creatine Kinase MB (test code = 03760-1) 0.80 0-5.0 [facility] HospitalTroponin K2547-07-18 19:38:00* Test Item Value Reference Range Interpretation Comments Troponin I (test code = TMT5544) -0.001 0-0.300 [facility] HospitalB-Type Natriuretic Fglbjns7559-34-34 19:32:00* Test Item Value Reference Range Interpretation Comments B-Type Natriuretic Peptide (test code = 23316-9) 37.5 0-100 [facility] HospitalB-Type Natriuretic Wzkjfkl7717-36-07 19:32:00* Test Item Value Reference Range Interpretation Comments B-Type Natriuretic Peptide (test code = 38523-9) 37.5 0-100 [facility] HospitalB-Type Natriuretic Kedemeb3224-65-28 19:32:00* Test Item Value Reference Range Interpretation Comments B-Type Natriuretic Peptide (test code = 01250-6) 37.5 0-100 [facility]odium Llshc1144-64-63 19:31:00* Test Item Value Reference Range Interpretation Comments Sodium Level (test code = 2951-2) 136 136-145 [facility] HospitalChloride Teppb0838-54-73 19:31:00* Test Item Value Reference Range Interpretation Comments Chloride Level (test code = 2075-0) 100 98-107 [facility] HospitalCarbon Dioxide Lnfkh6039-45-00 19:31:00* Test Item Value Reference Range Interpretation Comments Carbon Dioxide Level (test code = 2028-9) 25 22-29 [facility] HospitalAnion Opf4784-47-87 19:31:00* Test Item Value Reference Range Interpretation Comments Anion Gap (test code = 22650-3) 16.5 8-16 H [facility] HospitalBlood Urea Iumrmwvx2916-43-55 19:31:00* Test Item Value Reference Range Interpretation Comments Blood Urea Nitrogen (test code = 3094-0) 21 7-26 [facility] HospitalCreatinine2018-08-06 19:31:00* Test Item Value Reference Range Interpretation Comments Creatinine (test code = 2160-0) 1.03 0.57-1.11 [facility] HospitalBUN/Creatinine Xhlcn5770-68-21 19:31:00* Test Item Value Reference Range Interpretation Comments BUN/Creatinine Ratio (test code = 3097-3) 20 6-25 [facility] HospitalEstimat Glomerular Filtration Rate 2018-06-05 19:31:00* Test Item Value Reference Range Interpretation Comments Estimat Glomerular Filtration Rate (test code = 98127-9) 55 >60 L Ranges were taken from the National Kidney Disease Education Program and the [facility] literature.Reference ranges:60 or greater: Zdnwfd67-64 ( for 3 consecutive months): Chronic kidney disease 15 or less: Kidney failureUvalde Memorial HospitalGlucose Urzji8368-98-82 19:31:00* Test Item Value Reference Range Interpretation Comments Glucose Level (test code = CTD8494) 135 74-118 H [facility] HospitalCalcium Zdfix0718-78-75 19:31:00* Test Item Value Reference Range Interpretation Comments Calcium Level (test code = 54550-1) 9.7 8.4-10.2 [facility] HospitalTotal Rreeokyax1544-81-98 19:31:00* Test Item Value Reference Range Interpretation Comments Total Bilirubin (test code = 1975-2) 0.2 0.2-1.2 [facility] HospitalAspartate Amino Transf (AST/SGOT) 2018-06-05 19:31:00* Test Item Value Reference Range Interpretation Comments Aspartate Amino Transf (AST/SGOT) (test code = Aspartate Amino Transf (AST/SGOT)) 16 5-34 [facility] HospitalAlanine Aminotransferase (ALT/SGPT) 2018-06-05 19:31:00* Test Item Value Reference Range Interpretation Comments Alanine Aminotransferase (ALT/SGPT) (test code = 1742-6) 12 0-55 [facility] HospitalTotal Icgmlqv6022-63-41 19:31:00* Test Item Value Reference Range Interpretation Comments Total Protein (test code = 2885-2) 7.6 6.5-8.1 [facility] HospitalAlbumin2018-08-06 19:31:00* Test Item Value Reference Range Interpretation Comments Albumin (test code = 1751-7) 3.7 3.5-5.0 [facility] HospitalGlobulin2018-08-06 19:31:00* Test Item Value Reference Range Interpretation Comments Globulin (test code = 16815-1) 3.9 2.3-3.5 H [facility] HospitalAlbumin/Globulin Orbem5941-07-82 19:31:00 * Test Item Value Reference Range Interpretation Comments Albumin/Globulin Ratio (test code = 1759-0) 0.9 0.8-2.0 [facility] HospitalAlkaline Cruirclvqiz5571-09-27 19:31:00* Test Item Value Reference Range Interpretation Comments Alkaline Phosphatase (test code = 6768-6) 190 40-150 H [facility] HospitalCreatine Unztnp1532-55-14 19:31:00* Test Item Value Reference Range Interpretation Comments Creatine Kinase (test code = 2157-6) 49 29-168 [facility] HospitalProthrombin Brqt0522-76-53 19:19:00* Test Item Value Reference Range Interpretation Comments Prothrombin Time (test code = 5902-2) 12.6 11.9-14.5 [facility] HospitalProthromb Time International Ratio 2018-06-05 19:19:00* Test Item Value Reference Range Interpretation Comments Prothromb Time International Ratio (test code = 6301-6) 1.02 Oral Anticoagulant Therapy INR Values:1. Low Intensity Therapy 1.5 - 2.02 . Moderate Intensity Therapy 2.0 - 3.03. High Intensity Therapy(1) 2.5 - 3. 54. High Intensity Therapy(2) 3.0 - 4.05. Panic Value INR > 5.0 [facility] HospitalActivated Partial Thromboplast Time 2018-06-05 19:19:00* Test Item Value Reference Range Interpretation Comments Activated Partial Thromboplast Time (test code = 67466-4) 23.0 23.8-35.5 L [facility] HospitalProthrombin Kjpt8431-47-58 19:19:00* Test Item Value Reference Range Interpretation Comments Prothrombin Time (test code = 5902-2) 12.6 11.9-14.5 [facility] HospitalProthromb Time International Ratio 2018-06-05 19:19:00* Test Item Value Reference Range Interpretation Comments Prothromb Time International Ratio (test code = 6301-6) 1.02 Oral Anticoagulant Therapy INR Values:1. Low Intensity Therapy 1.5 - 2.02 . Moderate Intensity Therapy 2.0 - 3.03. High Intensity Therapy(1) 2.5 - 3. 54. High Intensity Therapy(2) 3.0 - 4.05. Panic Value INR > 5.0 [facility] HospitalActivated Partial Thromboplast Time 2018-06-05 19:19:00* Test Item Value Reference Range Interpretation Comments Activated Partial Thromboplast Time (test code = 53923-0) 23.0 23.8-35.5 L [facility] HospitalProthrombin Cmic4318-43-37 19:19:00* Test Item Value Reference Range Interpretation Comments Prothrombin Time (test code = 5902-2) 12.6 11.9-14.5 [facility] HospitalProthromb Time International Ratio 2018-06-05 19:19:00* Test Item Value Reference Range Interpretation Comments Prothromb Time International Ratio (test code = 6301-6) 1.02 Oral Anticoagulant Therapy INR Values:1. Low Intensity Therapy 1.5 - 2.02 . Moderate Intensity Therapy 2.0 - 3.03. High Intensity Therapy(1) 2.5 - 3. 54. High Intensity Therapy(2) 3.0 - 4.05. Panic Value INR > 5.0 [facility] HospitalActivated Partial Thromboplast Time 2018-06-05 19:19:00* Test Item Value Reference Range Interpretation Comments Activated Partial Thromboplast Time (test code = 84563-3) 23.0 23.8-35.5 L [facility] HospitalWhite Blood Ejktr1800-75-68 19:10:00* Test Item Value Reference Range Interpretation Comments White Blood Count (test code = 6690-2) 15.38 4.8-10.8 [facility] HospitalRed Blood Qrxjs2508-79-80 19:10:00* Test Item Value Reference Range Interpretation Comments Red Blood Count (test code = 789-8) 4.60 3.6-5.1 [facility] HospitalHemoglobin2018-08-06 19:10:00* Test Item Value Reference Range Interpretation Comments Hemoglobin (test code = 76270-7) 11.5 12.0-16.0 L [facility] HospitalHematocrit2018-08-06 19:10:00* Test Item Value Reference Range Interpretation Comments Hematocrit (test code = 4544-3) 37.9 34.2-44.1 [facility] HospitalMean Corpuscular Yuanjo2669-78-28 19:10:00* Test Item Value Reference Range Interpretation Comments Mean Corpuscular Volume (test code = 787-2) 82.4 81-99 [facility] HospitalMean Corpuscular Imuwpvkzfk2399-66-72 19:10:00* Test Item Value Reference Range Interpretation Comments Mean Corpuscular Hemoglobin (test code = 785-6) 25.0 28-32 L [facility] HospitalMean Corpuscular Hemoglobin Concent 2018-06-05 19:10:00* Test Item Value Reference Range Interpretation Comments Mean Corpuscular Hemoglobin Concent (test code = 786-4) 30.3 31-35 L [facility] HospitalRed Cell Distribution Cgmfg4405-67-94 19:10:00* Test Item Value Reference Range Interpretation Comments Red Cell Distribution Width (test code = 01070-1) 19.2 11.7 -14.4 H [facility] HospitalPlatelet Qigbr4197-17-35 19:10:00* Test Item Value Reference Range Interpretation Comments Platelet Count (test code = 777-3) 490 140-360 H [facility] HospitalNeutrophils (%) (Auto)2018-06-05 19:10:00 * Test Item Value Reference Range Interpretation Comments Neutrophils (%) (Auto) (test code = 32844-2) 63.6 38.7-80.0 [facility] HospitalLymphocytes (%) (Auto)2018-06-05 19:10:00 * Test Item Value Reference Range Interpretation Comments Lymphocytes (%) (Auto) (test code = 736-9) 28.6 18.0-39.1 [facility] HospitalMonocytes (%) (Auto)2018-06-05 19:10:00* Test Item Value Reference Range Interpretation Comments Monocytes (%) (Auto) (test code = 5905-5) 4.7 4.4-11.3 [facility] HospitalEosinophils (%) (Auto)2018-06-05 19:10:00 * Test Item Value Reference Range Interpretation Comments Eosinophils (%) (Auto) (test code = 713-8) 1.4 0.0-6.0 [facility] HospitalBasophils (%) (Auto)2018-06-05 19:10:00* Test Item Value Reference Range Interpretation Comments Basophils (%) (Auto) (test code = 706-2) 0.5 0.0-1.0 [facility] HospitalIM GRANULOCYTES %2018-06-05 19:10:00* Test Item Value Reference Range Interpretation Comments IM GRANULOCYTES % (test code = IM GRANULOCYTES %) 1.2 0.0- 1.0 H [facility] HospitalNeutrophils # (Auto)2018-06-05 19:10:00* Test Item Value Reference Range Interpretation Comments Neutrophils # (Auto) (test code = 751-8) 9.8 2.1-6.9 H [facility] HospitalLymphocytes # (Auto)2018-06-05 19:10:00* Test Item Value Reference Range Interpretation Comments Lymphocytes # (Auto) (test code = 44478-4) 4.4 1.0-3.2 H [facility] HospitalMonocytes # (Auto)2018-06-05 19:10:00* Test Item Value Reference Range Interpretation Comments Monocytes # (Auto) (test code = 742-7) 0.7 0.2-0.8 [facility] HospitalEosinophils # (Auto)2018-06-05 19:10:00* Test Item Value Reference Range Interpretation Comments Eosinophils # (Auto) (test code = 711-2) 0.2 0.0-0.4 [facility] HospitalBasophils # (Auto)2018-06-05 19:10:00* Test Item Value Reference Range Interpretation Comments Basophils # (Auto) (test code = 704-7) 0.1 0.0-0.1 [facility] HospitalAbsolute Immature Granulocyte (auto 2018-06-05 19:10:00* Test Item Value Reference Range Interpretation Comments Absolute Immature Granulocyte (auto (romelia t code = Absolute Immature Granulocyte (auto) 0.19 0-0.1 H [facility] HospitalCHEST SINGLE (PORTABLE)2018-06-05 17:59:00 [place] [address] Patient Name: STEPHANIE CAMERON MR #: [id number] : 1960 Age/Sex: 58/F Req #: [id number] Adm Physician: Ordered by: STEVEN STAPLETON DIRECTOR COMPLIANCE Report #: [id number] Location: ER Room/Bed: Procedure: [id number] DX/CHEST SINGLE (PORTABLE) Exam Date: 06/05/18 Exam [...] on 06/05/181758 COPY TO: STEVEN STAPLETON DIRECTOR COMPLIANCE Urine IRU1464-84-79 17:49:00* Test Item Value Reference Range Interpretation Comments Urine WBC (test code = 5821-4) 0-5 0-5 [facility] HospitalUrine ZMF8153-67-07 17:49:00* Test Item Value Reference Range Interpretation Comments Urine RBC (test code = 89715-2) 0-5 0-5 [facility] HospitalUrine Niufagwv1096-31-13 17:49:00* Test Item Value Reference Range Interpretation Comments Urine Bacteria (test code = 27780-6) NONE NONE [facility] HospitalUrine Epithelial Klgzl6152-04-25 17:49:00 * Test Item Value Reference Range Interpretation Comments Urine Epithelial Cells (test code = 63924-4) FEW NONE [facility] Hyaline Ltoai6069-79-08 17:49:00* Test Item Value Reference Range Interpretation Comments Urine Hyaline Casts (test code = 65169-1) 2-5 0-1 H [facility] Efxmq1207-16-42 17:49:00* Test Item Value Reference Range Interpretation Comments Urine Mucus (test code = 8247-9) FEW RARE H [facility] Hyaline Xrwvc7582-61-55 17:49:00* Test Item Value Reference Range Interpretation Comments Urine Hyaline Casts (test code = 26150-9) 2-5 0-1 H [facility] Xklfv4390-87-45 17:49:00* Test Item Value Reference Range Interpretation Comments Urine Mucus (test code = 8247-9) FEW [facility] Hyaline Hzmon7102-21-83 17:49:00* Test Item Value Reference Range Interpretation Comments Urine Hyaline Casts (test code = 94631-5) 2-5 0-1 H [facility] Cguab1143-04-27 17:49:00* Test Item Value Reference Range Interpretation Comments Urine Mucus (test code = 8247-9) FEW [facility] H [facility] Hyaline Jhesl9068-57-72 17:49:00* Test Item Value Reference Range Interpretation Comments Urine Hyaline Casts (test code = 86320-4) 2-5 0-1 H [facility] Mcysg1720-61-08 17:49:00* Test Item Value Reference Range Interpretation Comments Urine Mucus (test code = 8247-9) FEW RARE H [facility] Hyaline Nuxhf8289-74-56 17:49:00* Test Item Value Reference Range Interpretation Comments Urine Hyaline Casts (test code = 87051-6) 2-5 0-1 H [facility] Ktakk2581-75-14 17:49:00* Test Item Value Reference Range Interpretation Comments Urine Mucus (test code = 8247-9) FEW RARE H [facility] Hyaline Lcjir3536-62-22 17:49:00* Test Item Value Reference Range Interpretation Comments Urine Hyaline Casts (test code = 60344-3) 2-5 0-1 H [facility] Yryjp4510-09-81 17:49:00* Test Item Value Reference Range Interpretation Comments Urine Mucus (test code = 8247-9) FEW RARE H [facility] Hyaline Dryrt3233-95-22 17:49:00* Test Item Value Reference Range Interpretation Comments Urine Hyaline Casts (test code = 39405-6) 2-5 0-[address] [facility] Nbeau0924-55-72 17:49:00* Test Item Value Reference Range Interpretation Comments Urine Mucus (test code = 8247-9) FEW RARE H [facility] Occ[facility] Xznnv3051-40-12 17:46:00* Test Item Value Reference Range Interpretation Comments Stool Occult Blood (test code = 2335-8) NEGATIVE NEGATIVE [facility] Occult Fgedo5359-91-94 17:46:00* Test Item Value Reference Range Interpretation Comments Stool Occult Blood (test code = 2335-8) NEGATIVE NEGATIVE [facility] Occult Oxpkg7499-76-55 17:46:00* Test Item Value Reference Range Interpretation Comments Stool Occult Blood (test code = 2335-8) NEGATIVE NEGATIVE [facility] Occult Rkvbr5900-60-81 17:46:00* Test Item Value Reference Range Interpretation Comments Stool Occult Blood (test code = 2335-8) NEGATIVE NEGATIVE [facility] Occult Uuauq4266-73-18 17:46:00* Test Item Value Reference Range Interpretation Comments Stool Occult Blood (test code = 2335-8) NEGATIVE NEGATIVE [facility] Azhkt3284-65-85 17:46:00* Test Item Value Reference Range Interpretation Comments Stool Occult Blood (test code = 2335-8) NEGATIVE NEGATIVE [facility] Occult Urpoo1728-88-39 17:46:00* Test Item Value Reference Range Interpretation Comments Stool Occult Blood (test code = 2335-8) NEGATIVE NEGATIVE [facility] HospitalUrine Abxul6437-15-47 17:44:00* Test Item Value Reference Range Interpretation Comments Urine Color (test code = 5778-6) YELLOW YELLOW [facility] HospitalUrine Sgyxtsa5913-38-12 17:44:00* Test Item Value Reference Range Interpretation Comments Urine Clarity (test code = 09208-8) CLEAR CLEAR [facility] Specific Bvgfnpu6384-69-30 17:44:00 * Test Item Value Reference Range Interpretation Comments Urine Specific [place] (test code = 5811-5) 1.015 1.010-1.02 5 [facility] HospitalUrine fB9285-21-18 17:44:00* Test Item Value Reference Range Interpretation Comments Urine pH (test code = 67264-7) 6 5-7 [facility] HospitalUrine Leukocyte Ywkpcvou2299-86-91 17:44:00* Test Item Value Reference Range Interpretation Comments Urine Leukocyte Esterase (test code = 5799-2) NEGATIVE NEGATIVE [facility] HospitalUrine Dxquapm1053-48-42 17:44:00* Test Item Value Reference Range Interpretation Comments Urine Nitrite (test code = 00942-2) NEGATIVE NEGATIVE [facility] HospitalUrine Hhttyfs1136-04-02 17:44:00* Test Item Value Reference Range Interpretation Comments Urine Protein (test code = 5804-0) NEGATIVE NEGATIVE [facility] HospitalUrine Glucose (UA)2018-06-05 17:44:00* Test Item Value Reference Range Interpretation Comments Urine Glucose (UA) (test code = 2349-9) NEGATIVE NEGATIVE [facility] HospitalUrine Fojarba4480-04-10 17:44:00* Test Item Value Reference Range Interpretation Comments Urine Ketones (test code = 45794-7) NEGATIVE NEGATIVE [facility] HospitalUrine Futvcbioktjo6195-38-10 17:44:00* Test Item Value Reference Range Interpretation Comments Urine Urobilinogen (test code = 14126-2) 0.2 0.2-1 [facility] HospitalUrine Aajibyfdc8970-92-11 17:44:00* Test Item Value Reference Range Interpretation Comments Urine Bilirubin (test code = 1978-6) NEGATIVE [facility]GATIVE [facility] Jjrag6280-75-24 17:44:00* Test Item Value Reference Range Interpretation Comments Urine Blood (test code = 57465-2) NEGATIVE NEGATIVE [facility] B[facility] LM5643-15-08 17:35:00 [facility] [address] [address] Patient Name: STEPHANIE CAMERON MR #: [id number] : 1960 Age/Sex: 58/F Req #: [id number] Adm Physician: Ordered by: STEVEN STAPLETON DIRECTOR COMPLIANCE Report #: [id number] Location: ER Room /Bed: Procedure: [id number] CT/CT BRAIN WO Exam Date: 06/05/18 Exam [...] TO: STEVEN STAPLETON NP CT CERVICAL SPINE NC9308-78-34 21:37:00 [place] [address] Patient Name: STEPHANIE CAMERON MR #: [id number] : 1960 Age/Sex: 57/F Req #: [id number] Adm Physician: Ordered by: MARYLU VALDOVINOS MD Report #: [id number] Location: ER Room/Bed: Procedure: [id number] CT/CT CERVICAL SP INE WO Exam Date: [...] COPY TO: MARYLU VALDOVINOS MD CT BRAIN ZR9732-95-84 21:36:00 [place] [address] Patient Name: STEPHANIE CAMERON MR #: [id number] : 1960 Age/Sex: 57/F Req #: [id number] Adm Physician: Ordered by: MARYLU VALDOVINOS MD Report #: [id number] Location: ER Room/Bed: Procedure: [id number] CT/CT BRAIN WO E xam Date: 04/06/18 [...] on 04/06/182136 COPY TO: MARYLU VALDOVINOS Bedside Yhgiang3828-82-87 20:40:00* Test Item Value Reference Range Interpretation Comments Bedside Glucose (test code = 82113-7) 244 70-120 H Meter ID: [id number] Memorial HospitalBedside Glucose 2018-04-06 20:40:00* Test Item Value Reference Range Interpretation Comments Bedside Glucose (test code = 68269-7) 244 70-120 H Meter ID: [id number] Memorial HospitalCreatine Kinase MB 2018-04-06 18:19:00* Test Item Value Reference Range Interpretation Comments Creatine Kinase MB (test code = 35071-3) 1.60 0-5.0 [facility] HospitalTroponin A5231-38-26 18:19:00* Test Item Value Reference Range Interpretation Comments Troponin I (test code = HJN2925) 0.003 0-0.300 [facility] HospitalCreatine Kinase PU6385-63-58 18:19:00* Test Item Value Reference Range Interpretation Comments Creatine Kinase MB (test code = 68907-8) 1.60 0-5.0 [facility] HospitalTroponin O3559-81-51 18:19:00* Test Item Value Reference Range Interpretation Comments Troponin I (test code = WOL2125) 0.003 0-0.300 [facility] Vmdws3386-18-63 18:10:00* Test Item Value Reference Range Interpretation Comments Sodium Level (test code = 2951-2) 137 136-145 [facility] HospitalPotassium Ukgfl2292-21-14 18:10:00* Test Item Value Reference Range Interpretation Comments Potassium Level (test code = 2823-3) 4.6 3.5-5.1 [facility] HospitalChloride Cacoo2583-42-04 18:10:00* Test Item Value Reference Range Interpretation Comments Chloride Level (test code = 2075-0) 101 98-107 [facility] HospitalCarbon Dioxide Wyiwp6590-67-10 18:10:00* Test Item Value Reference Range Interpretation Comments Carbon Dioxide Level (test code = 2028-9) 27 22-29 [facility] HospitalAnion Jrj2790-49-27 18:10:00* Test Item Value Reference Range Interpretation Comments Anion Gap (test code = 27106-8) 13.6 8-16 [facility] HospitalBlood Urea Wfofhxtz3911-39-11 18:10:00* Test Item Value Reference Range Interpretation Comments Blood Urea Nitrogen (test code = 3094-0) 20 7-26 [facility] HospitalCreatinine2018-06-07 18:10:00* Test Item Value Reference Range Interpretation Comments Creatinine (test code = 2160-0) 0.84 0.57-1.11 [facility] HospitalBUN/Creatinine Fjspj1184-88-17 18:10:00* Test Item Value Reference Range Interpretation Comments BUN/Creatinine Ratio (test code = 3097-3) 24 6-25 [facility] HospitalEstimat Glomerular Filtration Rate 2018-04-06 18:10:00* Test Item Value Reference Range Interpretation Comments Estimat Glomerular Filtration Rate (test code = 67894-4) 60- >60 Ranges were taken from the National Kidney Disease Education Program and the [facility] Foundation literature.Reference ranges:60 or greater: Aravgs56-62 ( for 3 consecutive months): Chronic kidney disease 15 or less: Kidney failureUvalde Memorial HospitalGlucose Ebida4155-48-20 18:10:00* Test Item Value Reference Range Interpretation Comments Glucose Level (test code = SXH0692) 118 74-118 [facility] HospitalCalcium Tacqu8979-87-93 18:10:00* Test Item Value Reference Range Interpretation Comments Calcium Level (test code = 99299-0) 10.0 8.4-10.2 [facility] HospitalTotal Zqegiwgnr6406-78-73 18:10:00* Test Item Value Reference Range Interpretation Comments Total Bilirubin (test code = 1975-2) 0.2 0.2-1.2 [facility] HospitalAspartate Amino Transf (AST/SGOT) 2018-04-06 18:10:00* Test Item Value Reference Range Interpretation Comments Aspartate Amino Transf (AST/SGOT) (test code = Aspartate Amino Transf (AST/SGOT)) 13 5-34 [facility] HospitalAlanine Aminotransferase (ALT/SGPT) 2018-04-06 18:10:00* Test Item Value Reference Range Interpretation Comments Alanine Aminotransferase (ALT/SGPT) (test code = 1742-6) 10 0-55 [facility] HospitalTotal Ktpjbou7483-55-27 18:10:00* Test Item Value Reference Range Interpretation Comments Total Protein (test code = 2885-2) 7.7 6.5-8.1 [facility] HospitalAlbumin2018-06-07 18:10:00* Test Item Value Reference Range Interpretation Comments Albumin (test code = 1751-7) 3.8 3.5-5.0 [facility] HospitalGlobulin2018-06-07 18:10:00* Test Item Value Reference Range Interpretation Comments Globulin (test code = 85711-4) 3.9 2.3-3.5 H [facility] HospitalAlbumin/Globulin Hwyma3521-99-70 18:10:00 * Test Item Value Reference Range Interpretation Comments Albumin/Globulin Ratio (test code = 1759-0) 1.0 0.8-2.0 [facility] HospitalAlkaline Rzncdvpkock6460-56-15 18:10:00* Test Item Value Reference Range Interpretation Comments Alkaline Phosphatase (test code = 6768-6) 148 40-150 [facility] HospitalCreatine Ixdasb8780-84-51 18:10:00* Test Item Value Reference Range Interpretation Comments Creatine Kinase (test code = 2157-6) 79 29-168 [facility]odium Edhbp7023-99-99 18:10:00* Test Item Value Reference Range Interpretation Comments Sodium Level (test code = 2951-2) 137 136-145 [facility] HospitalPotassium Oekac5996-79-90 18:10:00* Test Item Value Reference Range Interpretation Comments Potassium Level (test code = 2823-3) 4.6 3.5-5.1 [facility] HospitalChloride Vbkim3061-40-41 18:10:00* Test Item Value Reference Range Interpretation Comments Chloride Level (test code = 2075-0) 101 98-107 [facility] HospitalCarbon Dioxide Zjevd2065-38-12 18:10:00* Test Item Value Reference Range Interpretation Comments Carbon Dioxide Level (test code = 2028-9) 27 22-29 [facility] HospitalAnion Eyi5040-69-03 18:10:00* Test Item Value Reference Range Interpretation Comments Anion Gap (test code = 13134-3) 13.6 8-16 [facility] HospitalBlood Urea Mpblnebn2804-00-85 18:10:00* Test Item Value Reference Range Interpretation Comments Blood Urea Nitrogen (test code = 3094-0) 20 7-26 [facility] HospitalCreatinine2018-06-07 18:10:00* Test Item Value Reference Range Interpretation Comments Creatinine (test code = 2160-0) 0.84 0.57-1.11 [facility] HospitalBUN/Creatinine Mrftb7681-96-33 18:10:00* Test Item Value Reference Range Interpretation Comments BUN/Creatinine Ratio (test code = 3097-3) 24 6-25 [facility] HospitalEstimat Glomerular Filtration Rate 2018-04-06 18:10:00* Test Item Value Reference Range Interpretation Comments Estimat Glomerular Filtration Rate (test code = 45151-6) 60- >60 Ranges were taken from the National Kidney Disease Education Program and the [facility] Kid[facility] Foundation literature.Reference ranges:60 or greater: Ictnta76-97 ( for 3 consecutive months): Chronic kidney disease 15 or less: Kidney failureUvalde Memorial HospitalGlucose Ypgmu8354-56-10 18:10:00* Test Item Value Reference Range Interpretation Comments Glucose Level (test code = RXD5748) 118 74-118 [facility] HospitalCalcium Wesbj3881-47-73 18:10:00* Test Item Value Reference Range Interpretation Comments Calcium Level (test code = 91323-0) 10.0 8.4-10.2 [facility] HospitalTotal Laqqcuaxj3148-23-19 18:10:00* Test Item Value Reference Range Interpretation Comments Total Bilirubin (test code = 1975-2) 0.2 0.2-1.2 [facility] HospitalAspartate Amino Transf (AST/SGOT) 2018-04-06 18:10:00* Test Item Value Reference Range Interpretation Comments Aspartate Amino Transf (AST/SGOT) (test code = Aspartate Amino Transf (AST/SGOT)) 13 5-34 [facility] HospitalAlanine Aminotransferase (ALT/SGPT) 2018-04-06 18:10:00* Test Item Value Reference Range Interpretation Comments Alanine Aminotransferase (ALT/SGPT) (test code = 1742-6) 10 0-55 [facility] HospitalTotal Vthlatc6564-90-84 18:10:00* Test Item Value Reference Range Interpretation Comments Total Protein (test code = 2885-2) 7.7 6.5-8.1 [facility] HospitalAlbumin2018-06-07 18:10:00* Test Item Value Reference Range Interpretation Comments Albumin (test code = 1751-7) 3.8 3.5-5.0 [facility] HospitalGlobulin2018-06-07 18:10:00* Test Item Value Reference Range Interpretation Comments Globulin (test code = 21024-2) 3.9 2.3-3.5 H [facility] HospitalAlbumin/Globulin Kvido5255-24-65 18:10:00 * Test Item Value Reference Range Interpretation Comments Albumin/Globulin Ratio (test code = 1759-0) 1.0 0.8-2.0 [facility] HospitalAlkaline Ahocoufpwcq8865-26-35 18:10:00* Test Item Value Reference Range Interpretation Comments Alkaline Phosphatase (test code = 6768-6) 148 40-150 [facility] HospitalCreatine Gmnjch6226-59-00 18:10:00* Test Item Value Reference Range Interpretation Comments Creatine Kinase (test code = 2157-6) 79 29-168 [facility] HospitalWhite Blood Wrdug9638-80-48 17:54:00* Test Item Value Reference Range Interpretation Comments White Blood Count (test code = 6690-2) 14.22 4.8-10.8 H [facility] HospitalRed Blood Rcqtw7533-02-82 17:54:00* Test Item Value Reference Range Interpretation Comments Red Blood Count (test code = 789-8) 4.90 3.6-5.1 [facility] HospitalHemoglobin2018-06-07 17:54:00* Test Item Value Reference Range Interpretation Comments Hemoglobin (test code = 09377-9) 11.8 12.0-16.0 L [facility] HospitalHematocrit2018-06-07 17:54:00* Test Item Value Reference Range Interpretation Comments Hematocrit (test code = 4544-3) 39.3 34.2-44.1 [facility] HospitalMean Corpuscular Sexoxe3487-08-44 17:54:00* Test Item Value Reference Range Interpretation Comments Mean Corpuscular Volume (test code = 787-2) 80.2 81-99 L [facility] HospitalMean Corpuscular Uajymdcate0451-94-54 17:54:00* Test Item Value Reference Range Interpretation Comments Mean Corpuscular Hemoglobin (test code = 785-6) 24.1 28-32 L [facility] HospitalMean Corpuscular Hemoglobin Concent 2018-04-06 17:54:00* Test Item Value Reference Range Interpretation Comments Mean Corpuscular Hemoglobin Concent (test code = 786-4) 30.0 31-35 L [facility] HospitalRed Cell Distribution Xwymn5258-17-31 17:54:00* Test Item Value Reference Range Interpretation Comments Red Cell Distribution Width (test code = 04800-3) 18.8 11.7 -14.4 H [facility] HospitalPlatelet Dkxds0579-15-66 17:54:00* Test Item Value Reference Range Interpretation Comments Platelet Count (test code = 777-3) 411 140-360 H [facility] HospitalNeutrophils (%) (Auto)2018-04-06 17:54:00 * Test Item Value Reference Range Interpretation Comments Neutrophils (%) (Auto) (test code = 23165-9) 69.7 38.7-80.0 [facility] HospitalLymphocytes (%) (Auto)2018-04-06 17:54:00 * Test Item Value Reference Range Interpretation Comments Lymphocytes (%) (Auto) (test code = 736-9) 22.3 18.0-39.1 [facility] HospitalMonocytes (%) (Auto)2018-04-06 17:54:00* Test Item Value Reference Range Interpretation Comments Monocytes (%) (Auto) (test code = 5905-5) 5.3 4.4-11.3 [facility] HospitalEosinophils (%) (Auto)2018-04-06 17:54:00 * Test Item Value Reference Range Interpretation Comments Eosinophils (%) (Auto) (test code = 713-8) 1.1 0.0-6.0 [facility] HospitalBasophils (%) (Auto)2018-04-06 17:54:00* Test Item Value Reference Range Interpretation Comments Basophils (%) (Auto) (test code = 706-2) 0.5 0.0-1.0 [facility] HospitalIM GRANULOCYTES %2018-04-06 17:54:00* Test Item Value Reference Range Interpretation Comments IM GRANULOCYTES % (test code = IM GRANULOCYTES %) 1.1 0.0- 1.0 H [facility] HospitalNeutrophils # (Auto)2018-04-06 17:54:00* Test Item Value Reference Range Interpretation Comments Neutrophils # (Auto) (test code = 751-8) 9.9 2.1-6.9 H [facility] HospitalLymphocytes # (Auto)2018-04-06 17:54:00* Test Item Value Reference Range Interpretation Comments Lymphocytes # (Auto) (test code = 98095-3) 3.2 1.0-3.2 [facility] HospitalMonocytes # (Auto)2018-04-06 17:54:00* Test Item Value Reference Range Interpretation Comments Monocytes # (Auto) (test code = 742-7) 0.8 0.2-0.8 [facility] HospitalEosinophils # (Auto)2018-04-06 17:54:00* Test Item Value Reference Range Interpretation Comments Eosinophils # (Auto) (test code = 711-2) 0.2 0.0-0.4 [facility] HospitalBasophils # (Auto)2018-04-06 17:54:00* Test Item Value Reference Range Interpretation Comments Basophils # (Auto) (test code = 704-7) 0.1 0.0-0.1 [facility] HospitalAbsolute Immature Granulocyte (auto 2018-04-06 17:54:00* Test Item Value Reference Range Interpretation Comments Absolute Immature Granulocyte (auto (romelia t code = Absolute Immature Granulocyte (auto) 0.16 0-0.1 H [facility] HospitalWhite Blood Marsu1940-28-66 17:54:00* Test Item Value Reference Range Interpretation Comments White Blood Count (test code = 6690-2) 14.22 4.8-10.8 H [facility] HospitalRed Blood Cjjwz9412-80-90 17:54:00* Test Item Value Reference Range Interpretation Comments Red Blood Count (test code = 789-8) 4.90 3.6-5.1 [facility] HospitalHemoglobin2018-06-07 17:54:00* Test Item Value Reference Range Interpretation Comments Hemoglobin (test code = 98509-0) 11.8 12.0-16.0 L [facility] HospitalHematocrit2018-06-07 17:54:00* Test Item Value Reference Range Interpretation Comments Hematocrit (test code = 4544-3) 39.3 34.2-44.1 [facility] HospitalMean Corpuscular Agkqcn0427-31-46 17:54:00* Test Item Value Reference Range Interpretation Comments Mean Corpuscular Volume (test code = 787-2) 80.2 81-99 L [facility] HospitalMean Corpuscular Qnjbtfnyfm8360-59-94 17:54:00* Test Item Value Reference Range Interpretation Comments Mean Corpuscular Hemoglobin (test code = 785-6) 24.1 28-32 L [facility] HospitalMean Corpuscular Hemoglobin Concent 2018-04-06 17:54:00* Test Item Value Reference Range Interpretation Comments Mean Corpuscular Hemoglobin Concent (test code = 786-4) 30.0 31-35 L [facility] HospitalRed Cell Distribution Ycdxj5594-56-27 17:54:00* Test Item Value Reference Range Interpretation Comments Red Cell Distribution Width (test code = 57435-1) 18.8 11.7 -14.4 H [facility] HospitalPlatelet Vncjf4619-44-27 17:54:00* Test Item Value Reference Range Interpretation Comments Platelet Count (test code = 777-3) 411 140-360 H [facility] HospitalNeutrophils (%) (Auto)2018-04-06 17:54:00 * Test Item Value Reference Range Interpretation Comments Neutrophils (%) (Auto) (test code = 86133-3) 69.7 38.7-80.0 [facility] HospitalLymphocytes (%) (Auto)2018-04-06 17:54:00 * Test Item Value Reference Range Interpretation Comments Lymphocytes (%) (Auto) (test code = 736-9) 22.3 18.0-39.1 [facility] HospitalMonocytes (%) (Auto)2018-04-06 17:54:00* Test Item Value Reference Range Interpretation Comments Monocytes (%) (Auto) (test code = 5905-5) 5.3 4.4-11.3 [facility] HospitalEosinophils (%) (Auto)2018-04-06 17:54:00 * Test Item Value Reference Range Interpretation Comments Eosinophils (%) (Auto) (test code = 713-8) 1.1 0.0-6.0 [facility] HospitalBasophils (%) (Auto)2018-04-06 17:54:00* Test Item Value Reference Range Interpretation Comments Basophils (%) (Auto) (test code = 706-2) 0.5 0.0-1.0 [facility] HospitalIM GRANULOCYTES %2018-04-06 17:54:00* Test Item Value Reference Range Interpretation Comments IM GRANULOCYTES % (test code = IM GRANULOCYTES %) 1.1 0.0- 1.0 H [facility] HospitalNeutrophils # (Auto)2018-04-06 17:54:00* Test Item Value Reference Range Interpretation Comments Neutrophils # (Auto) (test code = 751-8) 9.9 2.1-6.9 H [facility] HospitalLymphocytes # (Auto)2018-04-06 17:54:00* Test Item Value Reference Range Interpretation Comments Lymphocytes # (Auto) (test code = 70034-0) 3.2 1.0-3.2 [facility] HospitalMonocytes # (Auto)2018-04-06 17:54:00* Test Item Value Reference Range Interpretation Comments Monocytes # (Auto) (test code = 742-7) 0.8 0.2-0.8 [facility] HospitalEosinophils # (Auto)2018-04-06 17:54:00* Test Item Value Reference Range Interpretation Comments Eosinophils # (Auto) (test code = 711-2) 0.2 0.0-0.4 [facility] HospitalBasophils # (Auto)2018-04-06 17:54:00* Test Item Value Reference Range Interpretation Comments Basophils # (Auto) (test code = 704-7) 0.1 0.0-0.1 [facility] HospitalAbsolute Immature Granulocyte (auto 2018-04-06 17:54:00* Test Item Value Reference Range Interpretation Comments Absolute Immature Granulocyte (auto (romelia t code = Absolute Immature Granulocyte (auto) 0.16 0-0.1 H [facility] HospitalUrine PMK7293-21-13 17:23:00* Test Item Value Reference Range Interpretation Comments Urine WBC (test code = 5821-4) 6-10 0-5 H [facility] HospitalUrine GUK2879-54-89 17:23:00* Test Item Value Reference Range Interpretation Comments Urine RBC (test code = 30573-2) 0-5 0-5 [facility] HospitalUrine Bjjgecoq4550-25-69 17:23:00* Test Item Value Reference Range Interpretation Comments Urine Bacteria (test code = 71565-7) RARE NONE [facility] HospitalUrine Epithelial Hojws8125-78-96 17:23:00 * Test Item Value Reference Range Interpretation Comments Urine Epithelial Cells (test code = 32002-2) FEW NONE [facility] HospitalUrine XRD7644-11-38 17:23:00* Test Item Value Reference Range Interpretation Comments Urine WBC (test code = 5821-4) 6-10 0-5 H [facility] HospitalUrine GKD5177-62-77 17:23:00* Test Item Value Reference Range Interpretation Comments Urine RBC (test code = 34702-0) 0-5 0-5 [facility] HospitalUrine Pqjxgjlo6330-51-26 17:23:00* Test Item Value Reference Range Interpretation Comments Urine Bacteria (test code = 06350-5) RARE NONE [facility] HospitalUrine Epithelial Gyakl5016-33-07 17:23:00 * Test Item Value Reference Range Interpretation Comments Urine Epithelial Cells (test code = 63283-9) FEW NONE [facility] HospitalUrine Ibpcg2461-23-48 17:08:00* Test Item Value Reference Range Interpretation Comments Urine Color (test code = 5778-6) YELLOW YELLOW [facility] HospitalUrine Nurxtwl3230-94-21 17:08:00* Test Item Value Reference Range Interpretation Comments Urine Clarity (test code = 49181-7) SL CLOUDY CLEAR [facility] HospitalUrine Specific Ybkdmsk0953-47-92 17:08:00 * Test Item Value Reference Range Interpretation Comments Urine Specific [place] (test code = 5811-5) 1.005 1.010-1.02 5 L [facility] HospitalUrine fT1835-61-30 17:08:00* Test Item Value Reference Range Interpretation Comments Urine pH (test code = 64079-7) 6 5-7 [facility] HospitalUrine Leukocyte Kjmltzzj0604-82-20 17:08:00* Test Item Value Reference Range Interpretation Comments Urine Leukocyte Esterase (test code = 5799-2) NEGATIVE NEGATIVE [facility] HospitalUrine Hgajnzf0088-03-63 17:08:00* Test Item Value Reference Range Interpretation Comments Urine Nitrite (test code = 11625-9) NEGATIVE NEGATIVE [facility] HospitalUrine Dnugypo9102-80-19 17:08:00* Test Item Value Reference Range Interpretation Comments Urine Protein (test code = 5804-0) NEGATIVE NEGATIVE [facility] HospitalUrine Glucose (UA)2018-04-06 17:08:00* Test Item Value Reference Range Interpretation Comments Urine Glucose (UA) (test code = 2349-9) NEGATIVE NEGATIVE [facility] HospitalUrine Iudohmk7630-07-71 17:08:00* Test Item Value Reference Range Interpretation Comments Urine Ketones (test code = 77717-9) NEGATIVE NEGATIVE [facility] HospitalUrine Lbkmjfkkirsy9046-39-70 17:08:00* Test Item Value Reference Range Interpretation Comments Urine Urobilinogen (test code = 73315-0) 0.2 0.2-1 [facility] HospitalUrine Ngejinulu1222-81-35 17:08:00* Test Item Value Reference Range Interpretation Comments Urine Bilirubin (test code = 1978-6) NEGATIVE NEGATIVE [facility] HospitalU[facility] Viyvr1575-30-35 17:08:00* Test Item Value Reference Range Interpretation Comments Urine Blood (test code = 56610-2) NEGATIVE NEGATIVE [facility] HospitalUrine Azhvj3337-25-30 17:08:00* Test Item Value Reference Range Interpretation Comments Urine Color (test code = 5778-6) YELLOW YELLOW [facility] HospitalUrine Qgzzdkh5885-64-61 17:08:00* Test Item Value Reference Range Interpretation Comments Urine Clarity (test code = 23903-6) SL CLOUDY CLEAR [facility] HospitalUrine Specific Hyrzxjh9848-69-26 17:08:00 * Test Item Value Reference Range Interpretation Comments Urine Specific [place] (test code = 5811-5) 1.005 1.010-1.02 5 L [facility] HospitalUrine eX7501-20-60 17:08:00* Test Item Value Reference Range Interpretation Comments Urine pH (test code = 13084-9) 6 5-7 [facility] HospitalUrine Leukocyte Oxbpkvmp7730-88-01 17:08:00* Test Item Value Reference Range Interpretation Comments Urine Leukocyte Esterase (test code = 5799-2) NEGATIVE NEGATIVE [facility] HospitalUrine Fsnfvgn7495-92-41 17:08:00* Test Item Value Reference Range Interpretation Comments Urine Nitrite (test code = 47617-3) NEGATIVE NEGATIVE [facility] HospitalUrine Wwgkujw3370-57-93 17:08:00* Test Item Value Reference Range Interpretation Comments Urine Protein (test code = 5804-0) NEGATIVE NEGATIVE [facility] HospitalUrine Glucose (UA)2018-04-06 17:08:00* Test Item Value Reference Range Interpretation Comments Urine Glucose (UA) (test code = 2349-9) NEGATIVE NEGATIVE [facility] HospitalUrine Yduactf2813-06-03 17:08:00* Test Item Value Reference Range Interpretation Comments Urine Ketones (test code = 01522-6) NEGATIVE NEGATIVE [facility] HospitalUrine Ahnhajuxkcbs4603-59-98 17:08:00* Test Item Value Reference Range Interpretation Comments Urine Urobilinogen (test code = 09871-5) 0.2 0.2-1 [facility] HospitalUrine Jracbghky4520-66-15 17:08:00* Test Item Value Reference Range Interpretation Comments Urine Bilirubin (test code = 1978-6) NEGATIVE NEGATIVE [facility] HospitalUrine Yfzap4072-59-54 17:08:00* Test Item Value Reference Range Interpretation Comments Urine Blood (test code = 20495-5) NEGATIVE NEGATIVE [facility] HospitalCHEST SINGLE (PORTABLE)2018-04-06 17:00:00 [facility] [address] [address] Patient Name: STEPHANIE CAMERON MR #: [id number] : 1960 Age/Sex: 57/F Req #: [id number] Adm Physician: Ordered by: MANUELITO FISH MD Report #: [id number] Location: ER Room/Bed: Procedure: [id number] DX/CHEST SINGLE (ANTOLIN BLE) Exam Date: Exam Time: REPORT STATUS: Si gned PROCEDURE: A single AP view of the chest. COMPARISON: Patients [facility], DX, CHEST SINGLE (PORTABLE), 02/04/2018, [...] 1700 COPY TO: Nidhi FISH MD Bedside Zuxbqyx5221-76-28 16:04:00* Test Item Value Reference Range Interpretation Comments Bedside Glucose (test code = 64580-8) 157 70-120 H Meter ID: [id number] [facility] 2018-02-11 23:26:00* Test Item Value Reference Range Interpretation Comments Bedside Glucose (test code = 50992-0) 192 70-120 H Meter ID: [id number] [facility] Level 2018-02-11 22:16:00* Test Item Value Reference Range Interpretation Comments Sodium Level (test code = 2951-2) 134 136-145 L [facility] HospitalPotassium Iqnve0755-62-44 22:16:00* Test Item Value Reference Range Interpretation Comments Potassium Level (test code = 2823-3) 4.3 3.5-5.1 [facility] HospitalChloride Rkrea8695-13-48 22:16:00* Test Item Value Reference Range Interpretation Comments Chloride Level (test code = 2075-0) 100 98-107 [facility] HospitalCarbon Dioxide Azrpy0610-18-91 22:16:00* Test Item Value Reference Range Interpretation Comments Carbon Dioxide Level (test code = 2028-9) 28 22-29 [facility] HospitalAnion Hxf7638-22-04 22:16:00* Test Item Value Reference Range Interpretation Comments Anion Gap (test code = 70502-7) 10.3 8-16 [facility] HospitalBlood Urea Wpwgxuue5758-02-78 22:16:00* Test Item Value Reference Range Interpretation Comments Blood Urea Nitrogen (test code = 3094-0) 12 7-26 [facility] HospitalCreatinine2018-04-14 22:16:00* Test Item Value Reference Range Interpretation Comments Creatinine (test code = 2160-0) 1.10 0.57-1.11 [facility] HospitalBUN/Creatinine Wkbig6647-06-07 22:16:00* Test Item Value Reference Range Interpretation Comments BUN/Creatinine Ratio (test code = 3097-3) 11 6-25 [facility] HospitalEstimat Glomerular Filtration Rate 2018-02-11 22:16:00* Test Item Value Reference Range Interpretation Comments Estimat Glomerular Filtration Rate (test code = 81934-8) 52 >60 L Ranges were taken from the National Kidney Disease Education Program and the [facility] literature.Reference ranges:60 or greater: Mtgsxn49-24 ( for 3 consecutive months): Chronic kidney disease 15 or less: Kidney failureUvalde Memorial HospitalGlucose Hrdzd4424-24-27 22:16:00* Test Item Value Reference Range Interpretation Comments Glucose Level (test code = JVY1516) 185 74-118 H [facility] HospitalCalcium Vzyvu5794-28-79 22:16:00* Test Item Value Reference Range Interpretation Comments Calcium Level (test code = 00277-2) 9.0 8.4-10.2 [facility] HospitalTotal Fbddcxbct4468-30-50 22:16:00* Test Item Value Reference Range Interpretation Comments Total Bilirubin (test code = 1975-2) 0.1 0.2-1.2 L [facility] HospitalAspartate Amino Transf (AST/SGOT) 2018-02-11 22:16:00* Test Item Value Reference Range Interpretation Comments Aspartate Amino Transf (AST/SGOT) (test code = Aspartate Amino Transf (AST/SGOT)) 8 5-34 [facility] HospitalAlanine Aminotransferase (ALT/SGPT) 2018-02-11 22:16:00* Test Item Value Reference Range Interpretation Comments Alanine Aminotransferase (ALT/SGPT) (test code = 1742-6) 10 0-55 [facility] HospitalTotal Itflwgn4781-61-00 22:16:00* Test Item Value Reference Range Interpretation Comments Total Protein (test code = 2885-2) 6.5 6.5-8.1 [facility] HospitalAlbumin2018-04-14 22:16:00* Test Item Value Reference Range Interpretation Comments Albumin (test code = 1751-7) 3.1 3.5-5.0 L [facility] HospitalGlobulin2018-04-14 22:16:00* Test Item Value Reference Range Interpretation Comments Globulin (test code = 47104-2) 3.4 2.3-3.5 [facility] HospitalAlbumin/Globulin Rrgwh7656-51-65 22:16:00 * Test Item Value Reference Range Interpretation Comments Albumin/Globulin Ratio (test code = 1759-0) 0.9 0.8-2.0 [facility] HospitalAlkaline Wrfencbumpl1970-88-72 22:16:00* Test Item Value Reference Range Interpretation Comments Alkaline Phosphatase (test code = 6768-6) 165 40-150 H [facility] HospitalWhite Blood Gctfb2696-88-34 21:55:00* Test Item Value Reference Range Interpretation Comments White Blood Count (test code = 6690-2) 15.35 4.8-10.8 H [facility] HospitalRed Blood Anfqu0711-19-09 21:55:00* Test Item Value Reference Range Interpretation Comments Red Blood Count (test code = 789-8) 3.95 3.6-5.1 [facility] HospitalHemoglobin2018-04-14 21:55:00* Test Item Value Reference Range Interpretation Comments Hemoglobin (test code = 10944-6) 9.8 12.0-16.0 L [facility] HospitalHematocrit2018-04-14 21:55:00* Test Item Value Reference Range Interpretation Comments Hematocrit (test code = 4544-3) 32.8 34.2-44.1 L [facility] HospitalMean Corpuscular Scxyxm5520-62-97 21:55:00* Test Item Value Reference Range Interpretation Comments Mean Corpuscular Volume (test code = 787-2) 83.0 81-99 [facility] HospitalMean Corpuscular Acxsbyicjj9508-76-20 21:55:00* Test Item Value Reference Range Interpretation Comments Mean Corpuscular Hemoglobin (test code = 785-6) 24.8 28-32 L [facility] HospitalMean Corpuscular Hemoglobin Concent 2018-02-11 21:55:00* Test Item Value Reference Range Interpretation Comments Mean Corpuscular Hemoglobin Concent (test code = 786-4) 29.9 31-35 L [facility] HospitalRed Cell Distribution Zwhgh2913-87-25 21:55:00* Test Item Value Reference Range Interpretation Comments Red Cell Distribution Width (test code = 50854-4) 17.1 11.7 -14.4 H [facility] HospitalPlatelet Eicam4736-41-91 21:55:00* Test Item Value Reference Range Interpretation Comments Platelet Count (test code = 777-3) 509 140-360 H [facility] HospitalNeutrophils (%) (Auto)2018-02-11 21:55:00 * Test Item Value Reference Range Interpretation Comments Neutrophils (%) (Auto) (test code = 08735-9) 63.2 38.7-80.0 [facility] HospitalLymphocytes (%) (Auto)2018-02-11 21:55:00 * Test Item Value Reference Range Interpretation Comments Lymphocytes (%) (Auto) (test code = 736-9) 27.6 18.0-39.1 [facility] HospitalMonocytes (%) (Auto)2018-02-11 21:55:00* Test Item Value Reference Range Interpretation Comments Monocytes (%) (Auto) (test code = 5905-5) 6.0 4.4-11.3 [facility] HospitalEosinophils (%) (Auto)2018-02-11 21:55:00 * Test Item Value Reference Range Interpretation Comments Eosinophils (%) (Auto) (test code = 713-8) 2.1 0.0-6.0 [facility] HospitalBasophils (%) (Auto)2018-02-11 21:55:00* Test Item Value Reference Range Interpretation Comments Basophils (%) (Auto) (test code = 706-2) 0.5 0.0-1.0 [facility] HospitalIM GRANULOCYTES %2018-02-11 21:55:00* Test Item Value Reference Range Interpretation Comments IM GRANULOCYTES % (test code = IM GRANULOCYTES %) 0.6 0.0- 1.0 [facility] HospitalNeutrophils # (Auto)2018-02-11 21:55:00* Test Item Value Reference Range Interpretation Comments Neutrophils # (Auto) (test code = 751-8) 9.7 2.1-6.9 H [facility] HospitalLymphocytes # (Auto)2018-02-11 21:55:00* Test Item Value Reference Range Interpretation Comments Lymphocytes # (Auto) (test code = 00780-1) 4.2 1.0-3.2 H [facility] HospitalMonocytes # (Auto)2018-02-11 21:55:00* Test Item Value Reference Range Interpretation Comments Monocytes # (Auto) (test code = 742-7) 0.9 0.2-0.8 H [facility] HospitalEosinophils # (Auto)2018-02-11 21:55:00* Test Item Value Reference Range Interpretation Comments Eosinophils # (Auto) (test code = 711-2) 0.3 0.0-0.4 [facility] HospitalBasophils # (Auto)2018-02-11 21:55:00* Test Item Value Reference Range Interpretation Comments Basophils # (Auto) (test code = 704-7) 0.1 0.0-0.1 [facility] HospitalAbsolute Immature Granulocyte (auto 2018-02-11 21:55:00* Test Item Value Reference Range Interpretation Comments Absolute Immature Granulocyte (auto (romelia t code = Absolute Immature Granulocyte (auto) 0.09 0-0.1 [facility] HospitalBedside Pnuxvqy0390-88-51 12:05:00* Test Item Value Reference Range Interpretation Comments Bedside Glucose (test code = 54710-3) 168 70-120 H Meter ID: [id number] [facility]odium Level 2018-02-04 07:54:00* Test Item Value Reference Range Interpretation Comments Sodium Level (test code = 2951-2) 137 136-145 [facility] HospitalPotassium Xxknr6570-42-70 07:54:00* Test Item Value Reference Range Interpretation Comments Potassium Level (test code = 2823-3) 4.4 3.5-5.1 [facility] HospitalChloride Wmmns4149-93-28 07:54:00* Test Item Value Reference Range Interpretation Comments Chloride Level (test code = 2075-0) 102 98-107 [facility] HospitalCarbon Dioxide Hslpo8449-00-48 07:54:00* Test Item Value Reference Range Interpretation Comments Carbon Dioxide Level (test code = 2028-9) 30 22-29 H [facility] HospitalAnion Lqn3999-96-49 07:54:00* Test Item Value Reference Range Interpretation Comments Anion Gap (test code = 88717-6) 9.4 8-16 [facility] HospitalBlood Urea Tdorcgpj6629-89-33 07:54:00* Test Item Value Reference Range Interpretation Comments Blood Urea Nitrogen (test code = 3094-0) 14 7-26 [facility] HospitalCreatinine2018-04-07 07:54:00* Test Item Value Reference Range Interpretation Comments Creatinine (test code = 2160-0) 0.74 0.57-1.11 [facility] HospitalBUN/Creatinine Wlhnm3603-16-75 07:54:00* Test Item Value Reference Range Interpretation Comments BUN/Creatinine Ratio (test code = 3097-3) 19 6-25 [facility] HospitalEstimat Glomerular Filtration Rate 2018-02-04 07:54:00* Test Item Value Reference Range Interpretation Comments Estimat Glomerular Filtration Rate (test code = 42934-8) 60- >60 Ranges were taken from the National Kidney Disease Education Program and the [facility] literature.Reference ranges:60 or greater: Axqqby99-94 ( for 3 consecutive months): Chronic kidney disease 15 or less: Kidney failureUvalde Memorial HospitalGlucose Lvkdg3299-39-51 07:54:00* Test Item Value Reference Range Interpretation Comments Glucose Level (test code = CZL0027) 245 74-118 H [facility] HospitalCalcium Vueaq4830-68-97 07:54:00* Test Item Value Reference Range Interpretation Comments Calcium Level (test code = 85798-2) 9.3 8.4-10.2 [facility] HospitalTotal Dzvkxmjzp8715-25-23 07:54:00* Test Item Value Reference Range Interpretation Comments Total Bilirubin (test code = 1975-2) 0.3 0.2-1.2 [facility] HospitalAspartate Amino Transf (AST/SGOT) 2018-02-04 07:54:00* Test Item Value Reference Range Interpretation Comments Aspartate Amino Transf (AST/SGOT) (test code = Aspartate Amino Transf (AST/SGOT)) 9 5-34 [facility] HospitalAlanine Aminotransferase (ALT/SGPT) 2018-02-04 07:54:00* Test Item Value Reference Range Interpretation Comments Alanine Aminotransferase (ALT/SGPT) (test code = 1742-6) 11 0-55 [facility] HospitalTotal Wksudxm4407-82-09 07:54:00* Test Item Value Reference Range Interpretation Comments Total Protein (test code = 2885-2) 6.6 6.5-8.1 [facility] HospitalAlbumin2018-04-07 07:54:00* Test Item Value Reference Range Interpretation Comments Albumin (test code = 1751-7) 3.1 3.5-5.0 L [facility] HospitalGlobulin2018-04-07 07:54:00* Test Item Value Reference Range Interpretation Comments Globulin (test code = 58823-0) 3.5 2.3-3.5 [facility] HospitalAlbumin/Globulin Xjrkb1751-68-01 07:54:00 * Test Item Value Reference Range Interpretation Comments Albumin/Globulin Ratio (test code = 1759-0) 0.9 0.8-2.0 [facility] HospitalAlkaline Swmqqhtlbun2573-99-11 07:54:00* Test Item Value Reference Range Interpretation Comments Alkaline Phosphatase (test code = 6768-6) 143 40-150 [facility] HospitalWhite Blood Zsefe9060-59-64 07:34:00* Test Item Value Reference Range Interpretation Comments White Blood Count (test code = 6690-2) 12.06 4.8-10.8 H [facility] HospitalRed Blood Yjqqi0338-93-70 07:34:00* Test Item Value Reference Range Interpretation Comments Red Blood Count (test code = 789-8) 3.95 3.6-5.1 [facility] HospitalHemoglobin2018-04-07 07:34:00* Test Item Value Reference Range Interpretation Comments Hemoglobin (test code = 31373-8) 9.8 12.0-16.0 L [facility] HospitalHematocrit2018-04-07 07:34:00* Test Item Value Reference Range Interpretation Comments Hematocrit (test code = 4544-3) 32.4 34.2-44.1 L [facility] HospitalMean Corpuscular Tycdfg7100-74-24 07:34:00* Test Item Value Reference Range Interpretation Comments Mean Corpuscular Volume (test code = 787-2) 82.0 81-99 [facility] HospitalMean Corpuscular Ufevboevgp3890-22-72 07:34:00* Test Item Value Reference Range Interpretation Comments Mean Corpuscular Hemoglobin (test code = 785-6) 24.8 28-32 L [facility] HospitalMean Corpuscular Hemoglobin Concent 2018-02-04 07:34:00* Test Item Value Reference Range Interpretation Comments Mean Corpuscular Hemoglobin Concent (test code = 786-4) 30.2 31-35 L [facility] HospitalRed Cell Distribution Pggwi1658-30-59 07:34:00* Test Item Value Reference Range Interpretation Comments Red Cell Distribution Width (test code = 46460-8) 16.7 11.7 -14.4 H [facility] HospitalPlatelet Eqszi5106-03-41 07:34:00* Test Item Value Reference Range Interpretation Comments Platelet Count (test code = 777-3) 422 140-360 H [facility] HospitalNeutrophils (%) (Auto)2018-02-04 07:34:00 * Test Item Value Reference Range Interpretation Comments Neutrophils (%) (Auto) (test code = 02565-5) 70.1 38.7-80.0 [facility] HospitalLymphocytes (%) (Auto)2018-02-04 07:34:00 * Test Item Value Reference Range Interpretation Comments Lymphocytes (%) (Auto) (test code = 736-9) 22.1 18.0-39.1 [facility] HospitalMonocytes (%) (Auto)2018-02-04 07:34:00* Test Item Value Reference Range Interpretation Comments Monocytes (%) (Auto) (test code = 5905-5) 4.8 4.4-11.3 [facility] HospitalEosinophils (%) (Auto)2018-02-04 07:34:00 * Test Item Value Reference Range Interpretation Comments Eosinophils (%) (Auto) (test code = 713-8) 1.8 0.0-6.0 [facility] HospitalBasophils (%) (Auto)2018-02-04 07:34:00* Test Item Value Reference Range Interpretation Comments Basophils (%) (Auto) (test code = 706-2) 0.6 0.0-1.0 [facility] HospitalIM GRANULOCYTES %2018-02-04 07:34:00* Test Item Value Reference Range Interpretation Comments IM GRANULOCYTES % (test code = IM GRANULOCYTES %) 0.6 0.0- 1.0 [facility] HospitalNeutrophils # (Auto)2018-02-04 07:34:00* Test Item Value Reference Range Interpretation Comments Neutrophils # (Auto) (test code = 751-8) 8.5 2.1-6.9 H [facility] HospitalLymphocytes # (Auto)2018-02-04 07:34:00* Test Item Value Reference Range Interpretation Comments Lymphocytes # (Auto) (test code = 15392-5) 2.7 1.0-3.2 [facility] HospitalMonocytes # (Auto)2018-02-04 07:34:00* Test Item Value Reference Range Interpretation Comments Monocytes # (Auto) (test code = 742-7) 0.6 0.2-0.8 [facility] HospitalEosinophils # (Auto)2018-02-04 07:34:00* Test Item Value Reference Range Interpretation Comments Eosinophils # (Auto) (test code = 711-2) 0.2 0.0-0.4 [facility] HospitalBasophils # (Auto)2018-02-04 07:34:00* Test Item Value Reference Range Interpretation Comments Basophils # (Auto) (test code = 704-7) 0.1 0.0-0.1 [facility] HospitalAbsolute Immature Granulocyte (auto 2018-02-04 07:34:00* Test Item Value Reference Range Interpretation Comments Absolute Immature Granulocyte (auto (romelia t code = Absolute Immature Granulocyte (auto) 0.07 0-0.1 [facility] HospitalCreatine Kinase GI1056-46-53 11:36:00* Test Item Value Reference Range Interpretation Comments Creatine Kinase MB (test code = 77641-0) 5.20 0-5.0 H [facility] Q9764-70-87 11:36:00* Test Item Value Reference Range Interpretation Comments Troponin I (test code = WSV6887) -0.001 0-0.300 [facility] HospitalCreatine Kinase ED6873-56-33 11:36:00* Test Item Value Reference Range Interpretation Comments Creatine Kinase MB (test code = 76061-3) 5.20 0-5.0 H [place] 44070018-04-06 11:36:00* Test Item Value Reference Range Interpretation Comments Troponin I (test code = BLM5319) -0.001 0-0.300 [facility]2018-04-06 11:25:00* Test Item Value Reference Range Interpretation Comments Magnesium Level (test code = 79828-3) 1.7 1.3-2.1 [facility] [place] Yejjvw4478-47-90 11:25:00* Test Item Value Reference Range Interpretation Comments Creatine Kinase (test code = 2157-6) 270 29-168 H [facility]2018-04-06 11:25:00* Test Item Value Reference Range Interpretation Comments Magnesium Level (test code = 06502-8) 1.7 1.3-2.1 [facility] HospitalCreatine Xjbehn4144-81-86 11:25:00* Test Item Value Reference Range Interpretation Comments Creatine Kinase (test code = 2157-6) 270 29-168 H [facility]2018-04-06 11:25:00* Test Item Value Reference Range Interpretation Comments Magnesium Level (test code = 75993-1) 1.7 1.3-2.1 [facility] Agoio3937-26-95 11:25:00* Test Item Value Reference Range Interpretation Comments Magnesium Level (test code = 98674-4) 1.7 1.3-2.1 [facility] HospitalMagnesium Moerx2907-85-63 11:25:00* Test Item Value Reference Range Interpretation Comments Magnesium Level (test code = 35269-5) 1.7 1.3-2.1 [facility] Quxgh3663-26-44 11:25:00* Test Item Value Reference Range Interpretation Comments Magnesium Level (test code = 60282-4) 1.7 1.3-2.1 [facility] HospitalProthrombin Mkyv8744-29-24 11:12:00* Test Item Value Reference Range Interpretation Comments Prothrombin Time (test code = 5902-2) 13.1 11.9-14.5 [facility] HospitalProthromb Time International Ratio 2018-02-03 11:12:00* Test Item Value Reference Range Interpretation Comments Prothromb Time International Ratio (test code = 6301-6) 1.07 Oral Anticoagulant Therapy INR Values:1. Low Intensity Therapy 1.5 - 2.02 . Moderate Intensity Therapy 2.0 - 3.03. High Intensity Therapy(1) 2.5 - 3. 54. High Intensity Therapy(2) 3.0 - 4.05. Panic Value INR > 5.0 [facility] HospitalActivated Partial Thromboplast Time 2018-02-03 11:12:00* Test Item Value Reference Range Interpretation Comments Activated Partial Thromboplast Time (test code = 94825-0) 31.1 23.8-35.5 [facility] HospitalProthrombin Vnbs4893-87-13 11:12:00* Test Item Value Reference Range Interpretation Comments Prothrombin Time (test code = 5902-2) 13.1 11.9-14.5 [facility] HospitalProthromb Time International Ratio 2018-02-03 11:12:00* Test Item Value Reference Range Interpretation Comments Prothromb Time International Ratio (test code = 6301-6) 1.07 Oral Anticoagulant Therapy INR Values:1. Low Intensity Therapy 1.5 - 2.02 . Moderate Intensity Therapy 2.0 - 3.03. High Intensity Therapy(1) 2.5 - 3. 54. High Intensity Therapy(2) 3.0 - 4.05. Panic Value INR > 5.0 [facility] HospitalActivated Partial Thromboplast Time 2018-02-03 11:12:00* Test Item Value Reference Range Interpretation Comments Activated Partial Thromboplast Time (test code = 31534-8) 31.1 23.8-35.5 [facility] HospitalProthrombin Wkqg1797-53-52 11:12:00* Test Item Value Reference Range Interpretation Comments Prothrombin Time (test code = 5902-2) 13.1 11.9-14.5 [facility] HospitalProthromb Time International Ratio 2018-02-03 11:12:00* Test Item Value Reference Range Interpretation Comments Prothromb Time International Ratio (test code = 6301-6) 1.07 Oral Anticoagulant Therapy INR Values:1. Low Intensity Therapy 1.5 - 2.02 . Moderate Intensity Therapy 2.0 - 3.03. High Intensity Therapy(1) 2.5 - 3. 54. High Intensity Therapy(2) 3.0 - 4.05. Panic Value INR > 5.0 [facility] HospitalActivated Partial Thromboplast Time 2018-02-03 11:12:00* Test Item Value Reference Range Interpretation Comments Activated Partial Thromboplast Time (test code = 25059-9) 31.1 23.8-35.5 [facility] HospitalProthrombin Gwyu4877-75-34 11:12:00* Test Item Value Reference Range Interpretation Comments Prothrombin Time (test code = 5902-2) 13.1 11.9-14.5 [facility] HospitalProthromb Time International Ratio 2018-02-03 11:12:00* Test Item Value Reference Range Interpretation Comments Prothromb Time International Ratio (test code = 6301-6) 1.07 Oral Anticoagulant Therapy INR Values:1. Low Intensity Therapy 1.5 - 2.02 . Moderate Intensity Therapy 2.0 - 3.03. High Intensity Therapy(1) 2.5 - 3. 54. High Intensity Therapy(2) 3.0 - 4.05. Panic Value INR > 5.0 [facility] HospitalActivated Partial Thromboplast Time 2018-02-03 11:12:00* Test Item Value Reference Range Interpretation Comments Activated Partial Thromboplast Time (test code = 28511-8) 31.1 23.8-35.5 [facility] HospitalCHEM OLHTK2145-47-50 09:54:001.6[facility]annCHEM OPWGD2721-50-81 09:54:0095[facility]annCHEM KISIK7261-81-95 09:54:005.5[facility]annCHEM TDTRJ4272-79-93 09:54:00* Test Item Value Reference Range Interpretation Comments A/G Ratio (test code = A/G Ratio) 0.8 1 0.7-1.6 [facility] HermannCHEM PBFIO1747-17-52 09:54:008[facility] HermannCHEM PANEL 2017-11-17 09:54:002.5[facility] HermannCHEM MMDIS9476-01-46 09:54:003.0[facility] HermannCHEM DBBOX7514-66-25 09:54:44109Dviugnep HermannCHEM WUYUD0977-15-64 09:54:000.3[facility]annCHEM QWRAB2981-01-10 09:54:007[facility]annCHEM RAHMV4316-34-96 09:54:004.4[facility]annCHEM CBJDR6811-52-01 09:54:49890 [facility]annCHEM ERGEP0722-12-96 09:54:000.72[facility]annCHEM PANEL 2017-11-17 09:54:66330Ckswkqlq HermannCHEM YCKFV3958-55-15 09:54:0014[facility] HermannCHEM CSHSU5929-38-33 09:54:008.3[facility]annCHEM OBHCU0272-60-22 09:54:29188Gghqmvcx HermannCHEM JTOIC9334-23-09 09:54:0026[facility] HermannCHEM DOWGR0145-78-93 09:54:00* Test Item Value Reference Range Interpretation Comments B/C Ratio (test code = B/C Ratio) 19 1 6-25 [facility]annCHEM LMNGN0899-35-70 09:54:0010.4[facility] HermannCHEM PANEL 2017-11-17 09:54:001.4[facility] ZrypsmoXGVFSIKGBJ8150-48-27 09:54:000.1[facility] XgzbdxhDFVXIYYZIQ6602-57-33 09:54:000.1[facility] EokfuloPLQQUBSPRU7738-97-08 09:54:000.6[facility] IsxbdisKKJIHFZMFB0983-43-33 09:54:006.4[facility] YDNVFSSHPO3266-22-99 09:54:000.8[facility] SrpejkhGKGMTWZLIM6157-75-83 09:54:001.0 [facility] KtgtjtiUONRTPHRRD5203-50-13 09:54:005.3[facility] HermannHEMATOLOGY 2017-11-17 09:54:0032.3[facility] GbdqzzeTOXUQTKLAG1452-81-16 09:54:0060.6[facility] CjgclwcYCBLOASDUP0536-12-51 09:54:003.4[facility] KxvgppoACGFGPEPUW8155-48-34 09:54:31852Ggcxsdji RkgctzaTYHCIPJNZC4782-95-49 09:54:0016.0[facility] JPPJWXFMUP9286-75-97 09:54:007.3[facility] FetqnziNMGWTLNWDU3705-83-98 09:54:00 32.3[facility] CvfteerGTBNBUZWOB6802-07-65 09:54:00* Test Item Value Reference Range Interpretation Comments MCH (test code = MCH) 28.1 pg 27.0-31.0 [facility] DnyjmrmHDUTFKHJCO4102-31-95 09:54:0031.9[facility] HermannHEMATOLOGY 2017-11-17 09:54:0010.3[facility] HegwpdjDZQZEJFBHQ8800-46-49 09:54:003.67[facility] SnelazxCDXDGECMYH1945-25-54 09:54:0010.6[facility] EwzpkjkNKTLJIAOXI5838-63-90 09:54:0086.9[facility]annURINE AND KJNEF7166-41-01 05:20:004[facility] URINE AND WHSQD1885-01-10 05:20:0016[facility]annURINE AND FJTLE1957-29-97 05:20:00Moderate *ABN*(11/16/17 11:20 PM)[facility]ann[facility] AND STOOL 2017-11-17 05:20:00* Test Item Value Reference Range Interpretation Comments UA pH (test code = UA pH) 6.0 1 5.0-8.0 [facility] AND XVXEQ2681-40-36 05:20:00* Test Item Value Reference Range Interpretation Comments UA Spec Grav (test code = UA Spec Grav) 1.006 1 [facility] AND MNFHN6572-21-28 05:20:00Slight *ABN*(11/16/17 11:20 PM) [facility] MVMZH2472-47-57 05:20:00Yellow *NA*(11/16/17 11:20 PM) [facility] TPRYU2626-80-31 05:20:00Negative (11/16/17 11:20 PM) [facility] YJNNY2059-17-92 05:20:00Negative (11/16/17 11:20 PM) [facility] XHDWA9379-91-68 05:20:00Negative *NA*(11/16/17 11:20 PM)[facility]annCHEM NAGNK1967-34-42 01:19:002.7[facility] HermannCARDIAC YYOOLDD1938-81-16 01:08:0083[facility]annCARDIAC ABHZEZU4688-65-92 01:08:00 1.1[facility]annCARDIAC IGOPHXN8460-37-51 01:08:00<0.02[facility] CARDIAC LYVOVJH7979-45-68 01:08:00* Test Item Value Reference Range Interpretation Comments CK MB Index (test code = CK MB Index) 1.3 1 <=2.5 [facility]annCHEM FBKYP8229-38-30 01:08:0060[facility] HermannCHEM PANEL 2017-11-17 01:08:00* Test Item Value Reference Range Interpretation Comments A/G Ratio (test code = A/G Ratio) 0.8 1 0.7-1.6 [facility]annCHEM ARDYV9813-94-35 01:08:03919Nyttxnep HermannCHEM PANEL 2017-11-17 01:08:003.8[facility] HermannCHEM GIIJH9804-34-05 01:08:55589Qqpvamap [facility]annCHEM UVKSL7189-17-62 01:08:0028[facility]annCHEM DWQPT6488-72-22 01:08:008.0[facility]annCHEM IMLVA0605-97-92 01:08:006.2[facility]annCHEM LKBCS9517-68-49 01:08:009[facility]annCHEM RTEHH2438-43-91 01:08:002.7 [facility]annCHE[facility] HACTS9177-08-02 01:08:009[facility]annCHEM PANEL 2017-11-17 01:08:00* Test Item Value Reference Range Interpretation Comments B/C Ratio (test code = B/C Ratio) 13 1 6-25 [facility] HermannCHEM QYGIO7806-89-65 01:08:003.5[facility] HermannCHEM PANEL 2017-11-17 01:08:000.2[facility] HermannCHEM IPLCQ5703-82-74 01:08:0012.8[facility] HermannCHEM SLNTB1407-40-94 01:08:03190Afrclxjv HermannCHEM PTFDG3407-12-71 01:08:0014[facility] HermannCHEM YUURX5584-48-31 01:08:001.05[facility] HermannCHEM RWRDV6135-28-82 01:08:59157Rtdszucq LyqnicuCZPTNBRUGC0527-52-20 01:08:00* Test Item Value Reference Range Interpretation Comments PT (test code = PT) 12.9 s 12.0-14.7 [facility]TchvgziQDDNPXSCTQ9756-93-86 01:08:00* Test Item Value Reference Range Interpretation Comments INR (test code = INR) 0.97 1 0.85-1.17 [facility] CenterFdfzsvgWMJHVJMHAU4502-44-47 01:08:00* Test Item Value Reference Range Interpretation Comments PTT (test code = PTT) 32.6 s 22.9-35.8 [facility] CenterMtbiullRIMZILZDQL1094-75-07 01:08:00* Test Item Value Reference Range Interpretation Comments MCH (test code = MCH) 28.7 pg 27.0-31.0 [facility]WmsnndwSTQUXHRJSS1680-43-31 01:08:0087.8[facility] HermannHEMATOLOGY 2017-11-17 01:08:0034.6[facility] FfphcroGQUDDOHXKO4895-84-66 01:08:003.94[facility] OydkqufLAIRKHBZFS9233-16-50 01:08:0010.3[facility] XzqceddZGBNOCCKFL2980-01-33 01:08:0011.3[facility] NhtdtqoVQDTCRQSYS0736-86-24 01:08:007.3[facility] SNKGUSKUUW8814-53-44 01:08:0032.7[facility] UyubgggLOHMFGDKFO9421-29-07 01:08:00 369[facility] FzoyyanNXULWPFBCF9050-19-08 01:08:0015.9[facility] HermannHEMATOLOGY 2017-11-17 01:08:006.8[facility] PzdwwrjLOODKRQRBW1829-52-78 01:08:002.7[facility] BgkdzroJKXXWKQZBP3782-40-89 01:08:000.9[facility] FsjqzduOYSWLTXZUP6555-96-75 01:08:000.7[facility] LanudphQRUIHHFZDA0582-92-64 01:08:006.6[facility] OAJPPLFKIQ8363-24-76 01:08:0025.7[facility] FmocswnEYYQDXXDGW2145-63-67 01:08:00 66.1[facility] DzoitpfRYJXAHZUZJ9868-33-46 01:08:000.1[facility] HermannHEMATOLOGY 2017-11-17 01:08:000.1[facility] LcaojpqHUILBVHGXP3963-71-32 01:08:000.7[facility] HermannPhosphorus Ilxvj1480-54-73 07:33:00* Test Item Value Reference Range Interpretation Comments Phosphorus Level (test code = OTL0251) 3.3 2.3-4.7 [facility]Phosphorus Uqnni0037-16-33 07:33:00* Test Item Value Reference Range Interpretation Comments Phosphorus Level (test code = XWZ4758) 3.3 2.3-4.7 [facility] HospitalPhosphorus Tvwwi1310-62-14 07:33:00* Test Item Value Reference Range Interpretation Comments Phosphorus Level (test code = RPP0190) 3.3 2.3-4.7 [facility]2017-12-04 07:33:00* Test Item Value Reference Range Interpretation Comments Phosphorus Level (test code = NLK7677) 3.3 2.3-4.7 [facility]2017-12-04 07:33:00* Test Item Value Reference Range Interpretation Comments Phosphorus Level (test code = FCA4143) 3.3 2.3-4.7 [facility] Ecfeafywi7729-65-02 16:41:00* Test Item Value Reference Range Interpretation Comments Free Thyroxine (test code = 3024-7) 0.83 0.8-1.8 [facility] HospitalThyroid Stimulating Hormone (TSH) 2017-09-30 16:41:00* Test Item Value Reference Range Interpretation Comments Thyroid Stimulating Hormone (TSH) (test code = 99025-4) 0.184 0.350-4.940 L [facility] Ihsgnfonr8843-33-49 16:41:00* Test Item Value Reference Range Interpretation Comments Free Thyroxine (test code = 3024-7) 0.83 0.8-1.8 [facility] HospitalThyroid Stimulating Hormone (TSH) 2017-09-30 16:41:00* Test Item Value Reference Range Interpretation Comments Thyroid Stimulating Hormone (TSH) (test code = 50417-2) 0.184 0.350-4.940 L [facility] Mievyqodu7146-46-06 16:41:00* Test Item Value Reference Range Interpretation Comments Free Thyroxine (test code = 3024-7) 0.83 0.8-1.8 [facility] HospitalThyroid Stimulating Hormone (TSH) 2017-09-30 16:41:00* Test Item Value Reference Range Interpretation Comments Thyroid Stimulating Hormone (TSH) (test code = 40033-1) 0.184 0.350-4.940 L [facility] Lhmlhphcm0999-57-95 16:41:00* Test Item Value Reference Range Interpretation Comments Free Thyroxine (test code = 3024-7) 0.83 0.8-1.8 [facility] HospitalThyroid Stimulating Hormone (TSH) 2017-09-30 16:41:00* Test Item Value Reference Range Interpretation Comments Thyroid Stimulating Hormone (TSH) (test code = 82029-4) 0.184 0.350-4.940 L [facility] HospitalFree Wlbycburu6045-47-05 16:41:00* Test Item Value Reference Range Interpretation Comments Free Thyroxine (test code = 3024-7) 0.83 0.8-1.8 [facility] HospitalThyroid Stimulating Hormone (TSH) 2017-09-30 16:41:00* Test Item Value Reference Range Interpretation Comments Thyroid Stimulating Hormone (TSH) (test code = 04901-0) 0.184 0.350-4.940 L [facility] HospitalHemoglobin A1c Lctdzwg9365-37-36 14:47:00 * Test Item Value Reference Range Interpretation Comments Hemoglobin A1c Percent (test code = Hemoglobin A1c Percent) 7.9 4.0-7.0 H [facility] HospitalHemoglobin A1c Upjkypf5378-46-07 14:47:00 * Test Item Value Reference Range Interpretation Comments Hemoglobin A1c Percent (test code = Hemoglobin A1c Percent) 7.9 4.0-7.0 H [facility] HospitalHemoglobin A1c Qjgoawd5050-99-86 14:47:00 * Test Item Value Reference Range Interpretation Comments Hemoglobin A1c Percent (test code = Hemoglobin A1c Percent) 7.9 4.0-7.0 H [facility] HospitalHemoglobin A1c Hygbgqm4660-10-85 14:47:00 * Test Item Value Reference Range Interpretation Comments Hemoglobin A1c Percent (test code = Hemoglobin A1c Percent) 7.9 4.0-7.0 H [facility] HospitalHemoglobin A1c Zukjeti0277-37-62 14:47:00 * Test Item Value Reference Range Interpretation Comments Hemoglobin A1c Percent (test code = Hemoglobin A1c Percent) 7.9 4.0-7.0 H [facility] HospitalUrine Tnikxkgwbhq9263-52-72 13:27:00* Test Item Value Reference Range Interpretation Comments Urine Eosinophils (test code = 27494-3) NONE SEEN NONE SEEN [facility] HospitalUrine Qlythhbdftd8301-12-03 13:27:00* Test Item Value Reference Range Interpretation Comments Urine Eosinophils (test code = 56687-8) NONE SEEN NONE SEEN [facility] HospitalUrine Jvbaihzvdtt1957-27-25 13:27:00* Test Item Value Reference Range Interpretation Comments Urine Eosinophils (test code = 29619-7) NONE SEEN NONE SEEN [facility] HospitalUrine Zckhdubhxkh7925-55-75 13:27:00* Test Item Value Reference Range Interpretation Comments Urine Eosinophils (test code = 81791-9) NONE SEEN NONE SEEN [facility] HospitalUrine Isqygzgeola8943-38-46 13:27:00* Test Item Value Reference Range Interpretation Comments Urine Eosinophils (test code = 32185-2) NONE SEEN NONE SEEN [facility] Random Total Bjxxmey1012-41-92 12:29:00* Test Item Value Reference Range Interpretation Comments Urine Random Total Protein (test code = 2888-6) 23.9 1-14 H [facility] HospitalU[facility] Random Sdzfkt9117-03-40 12:29:00* Test Item Value Reference Range Interpretation Comments Urine Random Sodium (test code = 2955-3) 72 [facility] Tqbdsgwihi6703-13-20 12:29:00* Test Item Value Reference Range Interpretation Comments Urine Creatinine (test code = 2161-8) 39.29 47-110 L [facility] HospitalU[facility] Random Total Hpomzoi7287-04-59 12:29:00* Test Item Value Reference Range Interpretation Comments Urine Random Total Protein (test code = 2888-6) 23.9 1-14 H [facility] HospitalU[facility] Random Efhqcj9404-64-02 12:29:00* Test Item Value Reference Range Interpretation Comments Urine Random Sodium (test code = 2955-3) 72 [facility] Yebzywtkaf0944-21-83 12:29:00* Test Item Value Reference Range Interpretation Comments Urine Creatinine (test code = 2161-8) 39.29 47-110 L [facility] Random Total Gwexfir0227-90-94 12:29:00* Test Item Value Reference Range Interpretation Comments Urine Random Total Protein (test code = 2888-6) 23.9 1-14 H [facility] HospitalU[facility] Random Xxnpmu0348-33-71 12:29:00* Test Item Value Reference Range Interpretation Comments Urine Random Sodium (test code = 2955-3) 72 [facility] Yhtjskdruv9488-83-85 12:29:00* Test Item Value Reference Range Interpretation Comments Urine Creatinine (test code = 2161-8) 39.29 47-110 L [facility] HospitalU[facility] Random Total Ytvetdc4811-82-80 12:29:00* Test Item Value Reference Range Interpretation Comments Urine Random Total Protein (test code = 2888-6) 23.9 1-14 H [facility] HospitalU[facility] Random Lqtptj9115-76-61 12:29:00* Test Item Value Reference Range Interpretation Comments Urine Random Sodium (test code = 2955-3) 72 [facility] Sqnmgozdvj5543-26-72 12:29:00* Test Item Value Reference Range Interpretation Comments Urine Creatinine (test code = 2161-8) 39.29 47-110 L [facility] Random Total Dpqenrp4862-22-28 12:29:00* Test Item Value Reference Range Interpretation Comments Urine Random Total Protein (test code = 2888-6) 23.9 1-14 H [facility] Random Xcnlmg5902-55-10 12:29:00* Test Item Value Reference Range Interpretation Comments Urine Random Sodium (test code = 2955-3) 72 [facility] Uyugpxflcz8801-33-75 12:29:00* Test Item Value Reference Range Interpretation Comments Urine Creatinine (test code = 2161-8) 39.29 47-110 L [facility] ZHZ6329-08-73 23:01:00* Test Item Value Reference Range Interpretation Comments Urine WBC (test code = 5821-4) 6-10 0-5 H [facility] BZF9377-38-98 23:01:00* Test Item Value Reference Range Interpretation Comments Urine RBC (test code = 90458-5) 6-10 0-5 H [facility] Ulfcwihc0152-03-84 23:01:00* Test Item Value Reference Range Interpretation Comments Urine Bacteria (test code = 09038-3) FEW NONE [facility] Epithelial Mkrly3123-30-61 23:01:00 * Test Item Value Reference Range Interpretation Comments Urine Epithelial Cells (test code = 98198-5) RARE NONE [facility] Amorphous Whsuynkv1088-06-85 23:01:00* Test Item Value Reference Range Interpretation Comments Urine Amorphous Sediment (test code = 8246-1) MODERATE FEW H [facility] Tgvis8009-72-28 23:01:00* Test Item Value Reference Range Interpretation Comments Urine Yeast (test code = 58072-5) MODERATE NONE [facility] CYQ2962-52-13 23:01:00* Test Item Value Reference Range Interpretation Comments Urine WBC (test code = 5821-4) 6-10 0-5 H [facility] DSR0664-14-20 23:01:00* Test Item Value Reference Range Interpretation Comments Urine RBC (test code = 98631-0) 6-10 0-5 H [facility] Xprngqqd1384-00-10 23:01:00* Test Item Value Reference Range Interpretation Comments Urine Bacteria (test code = 73356-9) FEW NONE [facility] Epithelial Cnqhx7632-07-15 23:01:00 * Test Item Value Reference Range Interpretation Comments Urine Epithelial Cells (test code = 09143-9) RARE NONE [facility] Amorphous Nbbhoqwg3367-35-16 23:01:00* Test Item Value Reference Range Interpretation Comments Urine Amorphous Sediment (test code = 8246-1) MODERATE FEW H [facility] Qblxu4967-51-19 23:01:00* Test Item Value Reference Range Interpretation Comments Urine Yeast (test code = 02742-0) MODERATE NONE [facility] Amorphous Ilctcoam0786-98-44 23:01:00* Test Item Value Reference Range Interpretation Comments Urine Amorphous Sediment (test code = 8246-1) MODERATE FEW H [facility] Nybsf8494-89-23 23:01:00* Test Item Value Reference Range Interpretation Comments Urine Yeast (test code = 72921-3) MODERATE NONE H [facility] Amorphous Dttnzzjl7904-17-15 23:01:00* Test Item Value Reference Range Interpretation Comments Urine Amorphous Sediment (test code = 8246-1) MODERATE FEW H [facility] Uepmt6093-67-34 23:01:00* Test Item Value Reference Range Interpretation Comments Urine Yeast (test code = 01187-3) MODERATE NONE H [facility] Amorphous Uchatdab6962-66-51 23:01:00* Test Item Value Reference Range Interpretation Comments Urine Amorphous Sediment (test code = 8246-1) MODERATE FEW H [facility] Gxyok8976-30-81 23:01:00* Test Item Value Reference Range Interpretation Comments Urine Yeast (test code = 66484-8) MODERATE NONE H [facility] Siacy1862-17-08 22:52:00* Test Item Value Reference Range Interpretation Comments Urine Color (test code = 5778-6) YELLOW YELLOW [facility] Uthkjem8189-59-71 22:52:00* Test Item Value Reference Range Interpretation Comments Urine Clarity (test code = 94212-2) SL CLOUDY CLEAR [facility] Specific Hctjalt4818-85-80 22:52:00 * Test Item Value Reference Range Interpretation Comments Urine Specific [place] (test code = 5811-5) 1.020 1.010-1.02 5 [facility] eC0615-59-30 22:52:00* Test Item Value Reference Range Interpretation Comments Urine pH (test code = 70022-5) 5 5-7 [facility] Leukocyte Iolemgsj8649-45-97 22:52:00* Test Item Value Reference Range Interpretation Comments Urine Leukocyte Esterase (test code = 5799-2) [facility] NEGATIVE [facility] Xgoubjj5309-97-99 22:52:00* Test Item Value Reference Range Interpretation Comments Urine Nitrite (test code = 32738-6) NEGATIVE NEGATIVE [facility] Qlqztxi8006-01-50 22:52:00* Test Item Value Reference Range Interpretation Comments Urine Protein (test code = 5804-0) 2+ NEGATIVE H [facility] Glucose (UA)2017-09-29 22:52:00* Test Item Value Reference Range Interpretation Comments Urine Glucose (UA) (test code = 2349-9) 3+ NEGATIVE H [facility] Aprqesn2142-56-98 22:52:00* Test Item Value Reference Range Interpretation Comments Urine Ketones (test code = 62418-4) TRACE NEGATIVE H [facility] Opiates Zdwwch3023-45-79 22:52:00* Test Item Value Reference Range Interpretation Comments Urine Opiates Screen (test code = 60500-9) POSITIVE NEGATIVE H This test provides only a screen. Positive results should be repeated by a confi rmatory test.[facility] Barbiturates Screen 2017-09-29 22:52:00* Test Item Value Reference Range Interpretation Comments Urine Barbiturates Screen (test code = 886725091) NEGATIVE NEGA TIVE [facility] Phencyclidine Valipu6464-18-16 22:52:00* Test Item Value Reference Range Interpretation Comments Urine Phencyclidine Screen (test code = 10028-3) NEGATIVE NEGAT RHIANNA [facility] Amphetamines Yzoyza3830-25-70 22:52:00* Test Item Value Reference Range Interpretation Comments Urine Amphetamines Screen (test code = 21840-9) NEGATIVE NEGATI VE [facility] Benzodiazepines Slqqqh9949-62-53 22:52:00* Test Item Value Reference Range Interpretation Comments Urine Benzodiazepines Screen (test code = 20594-0) NEGATIVE NEG ATIVE [facility] Cocaine Narpmo7963-06-77 22:52:00* Test Item Value Reference Range Interpretation Comments Urine Cocaine Screen (test code = Urine Cocaine Screen) NEGATIVE NEGATIVE [facility] Cannabinoids Lycail1056-62-09 22:52:00* Test Item Value Reference Range Interpretation Comments Urine Cannabinoids Screen (test code = 31808-7) NEGATIVE NEGATI VE THESE RESULTS ARE FOR MEDICAL TREATMENT ONLYTHIS REPORT CONTAINS UNCONFIR MED SCREENING RESULTS*POSITIVE RESULTS WILL BE CONFIRMED BY REFERENCE LAB UPON R EQUEST CUT-OFFDRUG CLASS CONCENTRATION ng/mLAmphetamines 1000Methamphetamines 1000Cocaine 300Opiate 300Phencyc lidine 25Cannabinoid 50Barbiturates 300Benzodiazepine 300Methadone 300[facility] Pfbxskdmapvw5705-05-13 22:52:00* Test Item Value Reference Range Interpretation Comments Urine Urobilinogen (test code = 66050-0) 0.2 0.2-1 [facility] Yiwdnhkos0422-29-23 22:52:00* Test Item Value Reference Range Interpretation Comments Urine Bilirubin (test code = 1978-6) 1+ NEGATIVE H [facility] Kaeqq3654-16-06 22:52:00* Test Item Value Reference Range Interpretation Comments Urine Blood (test code = 28638-5) 2+ NEGATIVE H [facility] Yjpkj9089-79-18 22:52:00* Test Item Value Reference Range Interpretation Comments Urine Color (test code = 5778-6) YELLOW YELLOW [facility] Gmdxezn3615-43-30 22:52:00* Test Item Value Reference Range Interpretation Comments Urine Clarity (test code = 09265-0) SL CLOUDY CLEAR [facility] Specific Ycsverv2480-58-68 22:52:00 * Test Item Value Reference Range Interpretation Comments Urine Specific [place] (test code = 5811-5) 1.020 1.010-1.02 5 [facility] iC8356-80-54 22:52:00* Test Item Value Reference Range Interpretation Comments Urine pH (test code = 88101-5) 5 5-7 [facility] Leukocyte Jjhqhcir7244-60-83 22:52:00* Test Item Value Reference Range Interpretation Comments Urine Leukocyte Esterase (test code = 5799-2) TRACE NEGATIVE H [facility] Bygshvh7782-00-45 22:52:00* Test Item Value Reference Range Interpretation Comments Urine Nitrite (test code = 28079-5) NEGATIVE NEGATIVE [facility] Zkqxipu7840-13-50 22:52:00* Test Item Value Reference Range Interpretation Comments Urine Protein (test code = 5804-0) 2+ NEGATIVE H [facility] Glucose (UA)2017-09-29 22:52:00* Test Item Value Reference Range Interpretation Comments Urine Glucose (UA) (test code = 2349-9) 3+ NEGATIVE H [facility] Dtaiszg0887-34-36 22:52:00* Test Item Value Reference Range Interpretation Comments Urine Ketones (test code = 91364-8) TRACE NEGATIVE H [facility] Opiates Rcfjxf8407-42-78 22:52:00* Test Item Value Reference Range Interpretation Comments Urine Opiates Screen (test code = 85597-5) POSITIVE NEGATIVE H This test provides only a screen. Positive results should be repeated by a confi rmatory test.[facility] Barbiturates Screen 2017-09-29 22:52:00* Test Item Value Reference Range Interpretation Comments Urine Barbiturates Screen (test code = 118685724) NEGATIVE NEGA TIVE [facility] Phencyclidine Tzenhg3868-21-95 22:52:00* Test Item Value Reference Range Interpretation Comments Urine Phencyclidine Screen (test code = 68990-9) NEGATIVE NEGAT RHIANNA [facility] Amphetamines Cqeirw4098-85-00 22:52:00* Test Item Value Reference Range Interpretation Comments Urine Amphetamines Screen (test code = 14653-6) NEGATIVE NEGATI VE [facility] Benzodiazepines Brhntd7033-46-96 22:52:00* Test Item Value Reference Range Interpretation Comments Urine Benzodiazepines Screen (test code = 04816-5) NEGATIVE NEG ATIVE [facility] Cocaine Eylzxh5633-15-06 22:52:00* Test Item Value Reference Range Interpretation Comments Urine Cocaine Screen (test code = Urine Cocaine Screen) NEGATIVE NEGATIVE [facility] Cannabinoids Bnjqdm0392-21-72 22:52:00* Test Item Value Reference Range Interpretation Comments Urine Cannabinoids Screen (test code = 03347-8) NEGATIVE NEGATI VE THESE RESULTS ARE FOR MEDICAL TREATMENT ONLYTHIS REPORT CONTAINS UNCONFIR MED SCREENING RESULTS*POSITIVE RESULTS WILL BE CONFIRMED BY REFERENCE LAB UPON R EQUEST CUT-OFFDRUG CLASS CONCENTRATION ng/mLAmphetamines 1000Methamphetamines 1000Cocaine 300Opiate 300Phencyc lidine 25Cannabinoid 50Barbiturates 300Benzodiazepine 300Methadone 300[facility] Kwnyjubmgqii4093-36-07 22:52:00* Test Item Value Reference Range Interpretation Comments Urine Urobilinogen (test code = 51337-7) 0.2 0.2-1 [facility] Upfudzhly0094-90-54 22:52:00* Test Item Value Reference Range Interpretation Comments Urine Bilirubin (test code = 1978-6) 1+ NEGATIVE H [facility] Feoko7046-36-69 22:52:00* Test Item Value Reference Range Interpretation Comments Urine Blood (test code = 96813-6) 2+ NEGATIVE H [facility] Opiates Grvvrj1680-71-19 22:52:00* Test Item Value Reference Range Interpretation Comments Urine Opiates Screen (test code = 17005-8) POSITIVE NEGATIVE H This test provides only a screen. Positive results should be repeated by a confi rmatory test.[facility] Barbiturates Screen 2017-09-29 22:52:00* Test Item Value Reference Range Interpretation Comments Urine Barbiturates Screen (test code = 618795050) NEGATIVE NEGA TIVE [facility] Phencyclidine Fpgjtx8776-74-77 22:52:00* Test Item Value Reference Range Interpretation Comments Urine Phencyclidine Screen (test code = 63315-0) NEGATIVE NEGAT RHIANNA [facility] Amphetamines Dhcxxq6978-91-71 22:52:00* Test Item Value Reference Range Interpretation Comments Urine Amphetamines Screen (test code = 45446-0) NEGATIVE NEGATI VE [facility] Benzodiazepines Zroeex0329-64-86 22:52:00* Test Item Value Reference Range Interpretation Comments Urine Benzodiazepines Screen (test code = 92808-2) NEGATIVE NEG ATIVE [facility] Cocaine Fltjhs1302-87-75 22:52:00* Test Item Value Reference Range Interpretation Comments Urine Cocaine Screen (test code = Urine Cocaine Screen) NEGATIVE NEGATIVE [facility] Cannabinoids Nazwoz8590-07-01 22:52:00* Test Item Value Reference Range Interpretation Comments Urine Cannabinoids Screen (test code = 11433-3) NEGATIVE NEGATI VE THESE RESULTS ARE FOR MEDICAL TREATMENT ONLYTHIS REPORT CONTAINS UNCONFIR MED SCREENING RESULTS*POSITIVE RESULTS WILL BE CONFIRMED BY REFERENCE LAB UPON R EQUEST CUT-OFFDRUG CLASS CONCENTRATION ng/mLAmphetamines 1000Methamphetamines 1000Cocaine 300Opiate 300Phencyc lidine 25Cannabinoid 50Barbiturates 300Benzodiazepine 300Methadone 300[facility] Khbfnr1481-48-30 22:52:00* Test Item Value Reference Range Interpretation Comments Urine Opiates Screen (test code = 99795-2) POSITIVE NEGATIVE H This test provides only a screen. Positive results should be repeated by a confi rmatory test.[facility] Barbiturates Screen 2017-09-29 22:52:00* Test Item Value Reference Range Interpretation Comments Urine Barbiturates Screen (test code = 785368999) NEGATIVE NEGA TIVE [facility] Phencyclidine Hvnlen6369-19-18 22:52:00* Test Item Value Reference Range Interpretation Comments Urine Phencyclidine Screen (test code = 81948-3) NEGATIVE NEGAT RHIANNA [facility] Amphetamines Retfon4235-00-53 22:52:00* Test Item Value Reference Range Interpretation Comments Urine Amphetamines Screen (test code = 93132-2) NEGATIVE NEGATI VE [facility] Benzodiazepines Xtslou9567-06-45 22:52:00* Test Item Value Reference Range Interpretation Comments Urine Benzodiazepines Screen (test code = 23315-9) NEGATIVE NEG ATIVE [facility] Cocaine Dutnqk5423-08-97 22:52:00* Test Item Value Reference Range Interpretation Comments Urine Cocaine Screen (test code = Urine Cocaine Screen) NEGATIVE NEGATIVE [facility] Cannabinoids Yjjezc4780-05-23 22:52:00* Test Item Value Reference Range Interpretation Comments Urine Cannabinoids Screen (test code = 38419-4) NEGATIVE NEGATI VE THESE RESULTS ARE FOR MEDICAL TREATMENT ONLYTHIS REPORT CONTAINS UNCONFIR MED SCREENING RESULTS*POSITIVE RESULTS WILL BE CONFIRMED BY REFERENCE LAB UPON R EQUEST CUT-OFFDRUG CLASS CONCENTRATION ng/mLAmphetamines 1000Methamphetamines 1000Cocaine 300Opiate 300Phencyc lidine 25Cannabinoid 50Barbiturates 300Benzodiazepine 300Methadone 300[facility] Opiates Mlnldj5905-26-28 22:52:00* Test Item Value Reference Range Interpretation Comments Urine Opiates Screen (test code = 97234-9) POSITIVE NEGATIVE H This test provides only a screen. Positive results should be repeated by a confi rmatory test.[facility] Barbiturates Screen 2017-09-29 22:52:00* Test Item Value Reference Range Interpretation Comments Urine Barbiturates Screen (test code = 957019071) NEGATIVE NEGA TIVE [facility] Phencyclidine Vrkuvc6288-58-32 22:52:00* Test Item Value Reference Range Interpretation Comments Urine Phencyclidine Screen (test code = 92943-8) NEGATIVE NEGAT RHIANNA [facility] Amphetamines Ohjpth3180-68-52 22:52:00* Test Item Value Reference Range Interpretation Comments Urine Amphetamines Screen (test code = 71297-7) NEGATIVE NEGATI VE [facility] Benzodiazepines Qtuycb3658-47-31 22:52:00* Test Item Value Reference Range Interpretation Comments Urine Benzodiazepines Screen (test code = 02729-8) NEGATIVE NEG ATIVE [facility] Cocaine Tudwna0397-32-61 22:52:00* Test Item Value Reference Range Interpretation Comments Urine Cocaine Screen (test code = Urine Cocaine Screen) NEGATIVE NEGATIVE [facility] Cannabinoids Qkckun7499-34-01 22:52:00* Test Item Value Reference Range Interpretation Comments Urine Cannabinoids Screen (test code = 50697-3) NEGATIVE NEGATI VE THESE RESULTS ARE FOR MEDICAL TREATMENT ONLYTHIS REPORT CONTAINS UNCONFIR MED SCREENING RESULTS*POSITIVE RESULTS WILL BE CONFIRMED BY REFERENCE LAB UPON R EQUEST CUT-OFFDRUG CLASS CONCENTRATION ng/mLAmphetamines 1000Methamphetamines 1000Cocaine 300Opiate 300Phencyc lidine 25Cannabinoid 50Barbiturates 300Benzodiazepine 300Methadone 300[facility]2017-10-22 15:42:00* Test Item Value Reference Range Interpretation Comments Blood Culture (test code = 03495052) NO GROWTH AFTER 5 DAYS, FINAL REPORT [facility]2017-10-22 15:42:00* Test Item Value Reference Range Interpretation Comments Blood Culture (test code = 34190384) NO GROWTH AFTER 5 DAYS, FINAL REPORT [facility]2017-10-22 15:42:00* Test Item Value Reference Range Interpretation Comments Blood Culture (test code = 99780561) NO GROWTH AFTER 5 DAYS, FINAL REPORT [facility]2017-10-22 15:42:00* Test Item Value Reference Range Interpretation Comments Blood Culture (test code = 95157758) NO GROWTH AFTER 5 DAYS, FINAL REPORT [facility]2017-10-22 15:42:00* Test Item Value Reference Range Interpretation Comments Blood Culture (test code = 64986420) NO GROWTH AFTER 5 DAYS, FINAL REPORT [facility] Total Cells Counted 2017-08-16 17:02:00* Test Item Value Reference Range Interpretation Comments Differential Total Cells Counted (test code = Differsimin tial Total Cells Counted) 100 [facility] HospitalNeutrophils % (Manual)2017-08-16 17:02:00 * Test Item Value Reference Range Interpretation Comments Neutrophils % (Manual) (test code = 44256-9) 63 40-74 [facility] HospitalLymphocytes % (Manual)2017-08-16 17:02:00 * Test Item Value Reference Range Interpretation Comments Lymphocytes % (Manual) (test code = 737-7) 32 19-48 [facility] % (Manual)2017-08-16 17:02:00* Test Item Value Reference Range Interpretation Comments Monocytes % (Manual) (test code = 744-3) 2 3.4-9.0 L [facility] HospitalEosinophils % (Manual)2017-08-16 17:02:00 * Test Item Value Reference Range Interpretation Comments Eosinophils % (Manual) (test code = 714-6) 2 0-7 [facility]Bas[facility] % (Manual)2017-08-16 17:02:00* Test Item Value Reference Range Interpretation Comments Basophils % (Manual) (test code = 15154-4) 1 0-1.5 [facility] HospitalPlatelet Gxsvgetd5645-43-06 17:02:00* Test Item Value Reference Range Interpretation Comments Platelet Estimate (test code = 46837-4) ADEQUATE [facility] HospitalPlatelet Morphology Btoezic7982-61-27 17:02:00* Test Item Value Reference Range Interpretation Comments Platelet Morphology Comment (test code = 78597-4) NORMAL [facility] HospitalRed Cell Morphology Ewomjfs2246-46-58 17:02:00* Test Item Value Reference Range Interpretation Comments Red Cell Morphology Comment (test code = 6742-1) NORMAL [facility] HospitalDifferential Total Cells Counted 2017-08-16 17:02:00* Test Item Value Reference Range Interpretation Comments Differential Total Cells Counted (test code = Eitan rivero Total Cells Counted) 100 [facility] HospitalNeutrophils % (Manual)2017-08-16 17:02:00 * Test Item Value Reference Range Interpretation Comments Neutrophils % (Manual) (test code = 44346-2) 63 40-74 [facility] HospitalLymphocytes % (Manual)2017-08-16 17:02:00 * Test Item Value Reference Range Interpretation Comments Lymphocytes % (Manual) (test code = 737-7) 32 19-48 [facility] HospitalMon[facility] % (Manual)2017-08-16 17:02:00* Test Item Value Reference Range Interpretation Comments Monocytes % (Manual) (test code = 744-3) 2 3.4-9.0 L [facility] HospitalEosinophils % (Manual)2017-08-16 17:02:00 * Test Item Value Reference Range Interpretation Comments Eosinophils % (Manual) (test code = 714-6) 2 0-7 [facility] HospitalBas[facility] % (Manual)2017-08-16 17:02:00* Test Item Value Reference Range Interpretation Comments Basophils % (Manual) (test code = 01049-4) 1 0-1.5 [facility] HospitalPlatelet Swbofnmt3315-00-61 17:02:00* Test Item Value Reference Range Interpretation Comments Platelet Estimate (test code = 50834-5) ADEQUATE [facility] HospitalPlatelet Morphology Wqjsaaq9825-94-82 17:02:00* Test Item Value Reference Range Interpretation Comments Platelet Morphology Comment (test code = 83418-0) NORMAL [facility] HospitalRed Cell Morphology Nfjnxmf8363-99-10 17:02:00* Test Item Value Reference Range Interpretation Comments Red Cell Morphology Comment (test code = 6742-1) NORMAL [facility] HospitalDifferential Total Cells Counted 2017-08-16 17:02:00* Test Item Value Reference Range Interpretation Comments Differential Total Cells Counted (test code = Paulettesimin tial Total Cells Counted) 100 [facility] HospitalNeutrophils % (Manual)2017-08-16 17:02:00 * Test Item Value Reference Range Interpretation Comments Neutrophils % (Manual) (test code = 43132-5) 63 40-74 [facility] HospitalLymphocytes % (Manual)2017-08-16 17:02:00 * Test Item Value Reference Range Interpretation Comments Lymphocytes % (Manual) (test code = 737-7) 32 19-48 [facility] HospitalMon[facility] % (Manual)2017-08-16 17:02:00* Test Item Value Reference Range Interpretation Comments Monocytes % (Manual) (test code = 744-3) 2 3.4-9.0 L [facility] HospitalEosinophils % (Manual)2017-08-16 17:02:00 * Test Item Value Reference Range Interpretation Comments Eosinophils % (Manual) (test code = 714-6) 2 0-7 [facility] HospitalBas[facility] % (Manual)2017-08-16 17:02:00* Test Item Value Reference Range Interpretation Comments Basophils % (Manual) (test code = 09667-3) 1 0-1.5 [facility] HospitalPlatelet Yofewdbn8692-69-65 17:02:00* Test Item Value Reference Range Interpretation Comments Platelet Estimate (test code = 86799-2) ADEQUATE [facility] HospitalPlatelet Morphology Jahelst1226-82-05 17:02:00* Test Item Value Reference Range Interpretation Comments Platelet Morphology Comment (test code = 14764-2) NORMAL [facility] HospitalRed Cell Morphology Rnvewny5689-67-34 17:02:00* Test Item Value Reference Range Interpretation Comments Red Cell Morphology Comment (test code = 6742-1) NORMAL [facility] HospitalDifferential Total Cells Counted 2017-08-16 17:02:00* Test Item Value Reference Range Interpretation Comments Differential Total Cells Counted (test code = Eitan tial Total Cells Counted) 100 [facility] HospitalNeutrophils % (Manual)2017-08-16 17:02:00 * Test Item Value Reference Range Interpretation Comments Neutrophils % (Manual) (test code = 61260-1) 63 40-74 [facility] HospitalLymphocytes % (Manual)2017-08-16 17:02:00 * Test Item Value Reference Range Interpretation Comments Lymphocytes % (Manual) (test code = 737-7) 32 19-48 [facility] HospitalMon[facility] % (Manual)2017-08-16 17:02:00* Test Item Value Reference Range Interpretation Comments Monocytes % (Manual) (test code = 744-3) 2 3.4-9.0 L [facility] HospitalEosinophils % (Manual)2017-08-16 17:02:00 * Test Item Value Reference Range Interpretation Comments Eosinophils % (Manual) (test code = 714-6) 2 0-7 [facility] HospitalBas[facility] % (Manual)2017-08-16 17:02:00* Test Item Value Reference Range Interpretation Comments Basophils % (Manual) (test code = 26022-3) 1 0-1.5 [facility] HospitalPlatelet Mxzdnceo0246-89-67 17:02:00* Test Item Value Reference Range Interpretation Comments Platelet Estimate (test code = 38478-1) ADEQUATE [facility] HospitalPlatelet Morphology Jxmrfve8588-21-89 17:02:00* Test Item Value Reference Range Interpretation Comments Platelet Morphology Comment (test code = 28008-9) NORMAL [facility] HospitalRed Cell Morphology Qtnrqxq0654-89-86 17:02:00* Test Item Value Reference Range Interpretation Comments Red Cell Morphology Comment (test code = 6742-1) NORMAL [facility] HospitalDifferential Total Cells Counted 2017-08-16 17:02:00* Test Item Value Reference Range Interpretation Comments Differential Total Cells Counted (test code = Differsimin tial Total Cells Counted) 100 [facility] HospitalNeutrophils % (Manual)2017-08-16 17:02:00 * Test Item Value Reference Range Interpretation Comments Neutrophils % (Manual) (test code = 89025-7) 63 40-74 [facility] HospitalLymphocytes % (Manual)2017-08-16 17:02:00 * Test Item Value Reference Range Interpretation Comments Lymphocytes % (Manual) (test code = 737-7) 32 19-48 [facility] HospitalMonocytes % (Manual)2017-08-16 17:02:00* Test Item Value Reference Range Interpretation Comments Monocytes % (Manual) (test code = 744-3) 2 3.4-9.0 L [facility] HospitalEosinophils % (Manual)2017-08-16 17:02:00 * Test Item Value Reference Range Interpretation Comments Eosinophils % (Manual) (test code = 714-6) 2 0-7 [facility] HospitalBasophils % (Manual)2017-08-16 17:02:00* Test Item Value Reference Range Interpretation Comments Basophils % (Manual) (test code = 63809-1) 1 0-1.5 [facility]Platelet Utojmlpy5835-65-83 17:02:00* Test Item Value Reference Range Interpretation Comments Platelet Estimate (test code = 77244-2) ADEQUATE [facility] HospitalPlatelet Morphology Uoigqtl1273-92-57 17:02:00* Test Item Value Reference Range Interpretation Comments Platelet Morphology Comment (test code = 73686-8) NORMAL [facility] HospitalRed Cell Morphology Fzewudj9465-21-79 17:02:00* Test Item Value Reference Range Interpretation Comments Red Cell Morphology Comment (test code = 6742-1) NORMAL [facility] Dttnssrpy6190-21-47 16:20:00* Test Item Value Reference Range Interpretation Comments Direct Bilirubin (test code = 16847-9) -0.1 0.0-5.0 [facility] Pceefgywk9950-96-74 16:20:00* Test Item Value Reference Range Interpretation Comments Direct Bilirubin (test code = 60798-7) -0.1 0.0-5.0 [facility] Howzzcgfs8624-62-52 16:20:00* Test Item Value Reference Range Interpretation Comments Direct Bilirubin (test code = 68551-9) -0.1 0.0-5.0 [facility] Fialqqphz5654-74-98 16:20:00* Test Item Value Reference Range Interpretation Comments Direct Bilirubin (test code = 82233-3) -0.1 0.0-5.0 [facility] Hacmzbvjt9887-64-56 16:20:00* Test Item Value Reference Range Interpretation Comments Direct Bilirubin (test code = 55416-7) -0.1 0.0-5.0 [facility] HospitalLactic Acid Femwq5559-97-04 16:08:00* Test Item Value Reference Range Interpretation Comments Lactic Acid Level (test code = Lactic Acid Level) 29.2 4.5- 19.8 H [facility] HospitalLactic Acid Sefma7345-63-62 16:08:00* Test Item Value Reference Range Interpretation Comments Lactic Acid Level (test code = Lactic Acid Level) 29.2 4.5- 19.8 H [facility] HospitalLactic Acid Hxabj1279-75-07 16:08:00* Test Item Value Reference Range Interpretation Comments Lactic Acid Level (test code = Lactic Acid Level) 29.2 4.5- 19.8 H [facility] HospitalLactic Acid Toxia4425-04-55 16:08:00* Test Item Value Reference Range Interpretation Comments Lactic Acid Level (test code = Lactic Acid Level) 29.2 4.5- 19.8 H [facility] HospitalLactic Acid Sbnqz8647-12-79 16:08:00* Test Item Value Reference Range Interpretation Comments Lactic Acid Level (test code = Lactic Acid Level) 29.2 4.5- 19.8 H [facility] HospitalUrine Wilqk9183-26-66 16:04:00* Test Item Value Reference Range Interpretation Comments Urine Mucus (test code = 8247-9) [facility] Qffau6396-37-25 16:04:00* Test Item Value Reference Range Interpretation Comments Urine Mucus (test code = 8247-9) [facility] Jyine4993-84-68 16:04:00* Test Item Value Reference Range Interpretation Comments Urine Mucus (test code = 8247-9) [facility] Ydika2171-44-87 16:04:00* Test Item Value Reference Range Interpretation Comments Urine Mucus (test code = 8247-9) [facility]lake[facility] Eocjc6084-14-54 19:39:00* Test Item Value Reference Range Interpretation Comments Ethyl Alcohol Level (test code = 5643-2) -10.0 0.0-10.0 [facility] HospitalEth[facility] Alcohol Yqimz2410-72-26 19:39:00* Test Item Value Reference Range Interpretation Comments Ethyl Alcohol Level (test code = 5643-2) -10.0 0.0-10.0 [facility]Eth[facility] Alcohol Sblzy6997-71-52 19:39:00* Test Item Value Reference Range Interpretation Comments Ethyl Alcohol Level (test code = 5643-2) -10.0 0.0-10.0 [facility]Eth[facility] Alcohol Smsfu8399-62-90 19:39:00* Test Item Value Reference Range Interpretation Comments Ethyl Alcohol Level (test code = 5643-2) -10.0 0.0-10.0 [facility] HospitalBedside Tykgvom3862-66-77 19:14:00* Test Item Value Reference Range Interpretation Comments Bedside Glucose (test code = 08035-3) 187 70-120 H Meter ID: [id number] Memorial HospitalUrine OWP8267-03-41 17:51:00* Test Item Value Reference Range Interpretation Comments Urine WBC (test code = 5821-4) 0-5 0-5 [facility] FGM8061-99-00 17:51:00* Test Item Value Reference Range Interpretation Comments Urine RBC (test code = 35211-9) 0-5 0-5 [facility] Mpouiesa8790-83-02 17:51:00* Test Item Value Reference Range Interpretation Comments Urine Bacteria (test code = 29844-8) FEW NONE [facility] HospitalU[facility] Epithelial Czery2824-56-51 17:51:00 * Test Item Value Reference Range Interpretation Comments Urine Epithelial Cells (test code = 62779-2) FEW NONE [facility] HospitalU[facility] Izyic0605-83-77 17:49:00* Test Item Value Reference Range Interpretation Comments Urine Color (test code = 5778-6) YELLOW YELLOW [facility] HospitalU[facility] Fipozuc1731-48-42 17:49:00* Test Item Value Reference Range Interpretation Comments Urine Clarity (test code = 39607-3) CLEAR CLEAR [facility] HospitalU[facility] Specific Lmgpywb1385-17-84 17:49:00 * Test Item Value Reference Range Interpretation Comments Urine Specific [place] (test code = 5811-5) 1.015 1.010-1.02 5 [facility] HospitalU[facility] tU4988-81-07 17:49:00* Test Item Value Reference Range Interpretation Comments Urine pH (test code = 79558-6) 5 5-7 [facility] Leukocyte Yvozpaxj3620-54-32 17:49:00* Test Item Value Reference Range Interpretation Comments Urine Leukocyte Esterase (test code = 5799-2) NEGATIVE NEGATIVE [facility] Eucfiup9563-24-40 17:49:00* Test Item Value Reference Range Interpretation Comments Urine Nitrite (test code = 27430-8) NEGATIVE NEGATIVE [facility] Vnycwtw9515-10-11 17:49:00* Test Item Value Reference Range Interpretation Comments Urine Protein (test code = 5804-0) 1+ NEGATIVE H [facility] HospitalUrine Glucose (UA)2017-07-15 17:49:00* Test Item Value Reference Range Interpretation Comments Urine Glucose (UA) (test code = 2349-9) 3+ NEGATIVE H [facility] HospitalU[facility] Zsbgxoh7951-68-41 17:49:00* Test Item Value Reference Range Interpretation Comments Urine Ketones (test code = 14704-1) NEGATIVE NEGATIVE [facility] Qfyaojmwmlxi6569-58-01 17:49:00* Test Item Value Reference Range Interpretation Comments Urine Urobilinogen (test code = 55446-1) 0.2 0.2-1 [facility] Qxjglqojd8886-51-10 17:49:00* Test Item Value Reference Range Interpretation Comments Urine Bilirubin (test code = 1978-6) NEGATIVE NEGATIVE [facility] Dewvw8318-42-64 17:49:00* Test Item Value Reference Range Interpretation Comments Urine Blood (test code = 69689-5) NEGATIVE NEGATIVE [facility] Lhebu1277-83-89 17:19:00* Test Item Value Reference Range Interpretation Comments Sodium Level (test code = 2951-2) 140 136-145 [facility] HospitalPotassium Jggph2466-82-06 17:19:00* Test Item Value Reference Range Interpretation Comments Potassium Level (test code = 2823-3) 4.3 3.5-5.1 [facility] HospitalChloride Brxyi5684-03-99 17:19:00* Test Item Value Reference Range Interpretation Comments Chloride Level (test code = 2075-0) 105 98-107 [facility] HospitalCarbon Dioxide Kafiv0051-23-98 17:19:00* Test Item Value Reference Range Interpretation Comments Carbon Dioxide Level (test code = 2028-9) 25 22-29 [facility] HospitalAnion Vwv8211-07-13 17:19:00* Test Item Value Reference Range Interpretation Comments Anion Gap (test code = 06423-2) 14.3 8-16 [facility] HospitalBlood Urea Wydkhfyg4396-52-76 17:19:00* Test Item Value Reference Range Interpretation Comments Blood Urea Nitrogen (test code = 3094-0) 29 7-26 H [facility] HospitalCreatinine2017-09-15 17:19:00* Test Item Value Reference Range Interpretation Comments Creatinine (test code = 2160-0) 1.63 0.57-1.11 H [facility] HospitalBUN/Creatinine Pucuf0955-59-79 17:19:00* Test Item Value Reference Range Interpretation Comments BUN/Creatinine Ratio (test code = 3097-3) 18 6-25 [facility] HospitalEstimat Glomerular Filtration Rate 2017-07-15 17:19:00* Test Item Value Reference Range Interpretation Comments Estimat Glomerular Filtration Rate (test code = 68903-8) 33 >60 L Ranges were taken from the National Kidney Disease Education Program and the [facility] literature.Reference ranges:60 or greater: Dlqwly95-95 ( for 3 consecutive months): Chronic kidney disease 15 or less: Kidney failureUvalde Memorial HospitalGlucose Utcsi2872-18-46 17:19:00* Test Item Value Reference Range Interpretation Comments Glucose Level (test code = YIH6602) 103 74-118 [facility] HospitalCalcium Pbyvz1294-53-12 17:19:00* Test Item Value Reference Range Interpretation Comments Calcium Level (test code = 97666-4) 9.7 8.4-10.2 [facility] HospitalTotal Oyrxnyrhf7977-26-51 17:19:00* Test Item Value Reference Range Interpretation Comments Total Bilirubin (test code = 1975-2) 0.2 0.2-1.2 [facility] HospitalAspartate Amino Transf (AST/SGOT) 2017-07-15 17:19:00* Test Item Value Reference Range Interpretation Comments Aspartate Amino Transf (AST/SGOT) (test code = Aspartate Amino Transf (AST/SGOT)) 9 5-34 [facility] HospitalAlanine Aminotransferase (ALT/SGPT) 2017-07-15 17:19:00* Test Item Value Reference Range Interpretation Comments Alanine Aminotransferase (ALT/SGPT) (test code = 1742-6) 7 0-55 [facility] HospitalTotal Mvksdzd7223-75-82 17:19:00* Test Item Value Reference Range Interpretation Comments Total Protein (test code = 2885-2) 6.9 6.5-8.1 [facility] HospitalAlbumin2017-09-15 17:19:00* Test Item Value Reference Range Interpretation Comments Albumin (test code = 1751-7) 3.1 3.5-5.0 L [facility] HospitalGlobulin2017-09-15 17:19:00* Test Item Value Reference Range Interpretation Comments Globulin (test code = 33653-3) 3.8 2.3-3.5 H [facility] HospitalAlbumin/Globulin Rtivu7829-52-64 17:19:00 * Test Item Value Reference Range Interpretation Comments Albumin/Globulin Ratio (test code = 1759-0) 0.8 0.8-2.0 [facility] HospitalAlkaline Xmpklutevze2825-26-94 17:19:00* Test Item Value Reference Range Interpretation Comments Alkaline Phosphatase (test code = 6768-6) 143 40-150 [facility] HospitalCHEST SINGLE (PORTABLE)2017-07-15 17:11:00 [place] [address] Patient Name: STEPHANIE CAMERON MR #: [id number] : 1960 Age/Sex: 57/F Req #: [id number] Adm Physician: Ordered by: SIOBHAN PORTER MD Report #: [id number] Location: ER Room/Bed: Procedure: [id number] DX/CHEST SINGLE (PORTABLE ) Exam Date: 07/15/17 [...] COPY TO: SIOBHAN PORTER MD White Blood Fsajm4006-11-70 17:01:00* Test Item Value Reference Range Interpretation Comments White Blood Count (test code = 6690-2) 14.40 4.8-10.8 H [facility] HospitalRed Blood Ioxtk0424-81-91 17:01:00* Test Item Value Reference Range Interpretation Comments Red Blood Count (test code = 789-8) 3.93 3.6-5.1 [facility] HospitalHemoglobin2017-09-15 17:01:00* Test Item Value Reference Range Interpretation Comments Hemoglobin (test code = 45252-2) 11.2 12.0-16.0 L [facility] HospitalHematocrit2017-09-15 17:01:00* Test Item Value Reference Range Interpretation Comments Hematocrit (test code = 4544-3) 34.8 34.2-44.1 [facility] HospitalMean Corpuscular Dklkol0725-74-30 17:01:00* Test Item Value Reference Range Interpretation Comments Mean Corpuscular Volume (test code = 787-2) 88.5 81-99 [facility] HospitalMean Corpuscular Jrledgaxnr4205-46-14 17:01:00* Test Item Value Reference Range Interpretation Comments Mean Corpuscular Hemoglobin (test code = 785-6) 28.5 28-32 [facility] HospitalMean Corpuscular Hemoglobin Concent 2017-07-15 17:01:00* Test Item Value Reference Range Interpretation Comments Mean Corpuscular Hemoglobin Concent (test code = 786-4) 32.2 31-35 [facility] HospitalRed Cell Distribution Vmoem8395-22-05 17:01:00* Test Item Value Reference Range Interpretation Comments Red Cell Distribution Width (test code = 97918-3) 15.4 11.7 -14.4 H [facility] HospitalPlatelet Ulpuf5346-41-08 17:01:00* Test Item Value Reference Range Interpretation Comments Platelet Count (test code = 777-3) 355 140-360 [facility] HospitalNeutrophils (%) (Auto)2017-07-15 17:01:00 * Test Item Value Reference Range Interpretation Comments Neutrophils (%) (Auto) (test code = 09633-3) 62.3 38.7-80.0 [facility] HospitalLymphocytes (%) (Auto)2017-07-15 17:01:00 * Test Item Value Reference Range Interpretation Comments Lymphocytes (%) (Auto) (test code = 736-9) 27.3 18.0-39.1 [facility] HospitalMonocytes (%) (Auto)2017-07-15 17:01:00* Test Item Value Reference Range Interpretation Comments Monocytes (%) (Auto) (test code = 5905-5) 7.2 4.4-11.3 [facility] HospitalEosinophils (%) (Auto)2017-07-15 17:01:00 * Test Item Value Reference Range Interpretation Comments Eosinophils (%) (Auto) (test code = 713-8) 1.7 0.0-6.0 [facility] HospitalBasophils (%) (Auto)2017-07-15 17:01:00* Test Item Value Reference Range Interpretation Comments Basophils (%) (Auto) (test code = 706-2) 0.6 0.0-1.0 [facility] HospitalIM GRANULOCYTES %2017-07-15 17:01:00* Test Item Value Reference Range Interpretation Comments IM GRANULOCYTES % (test code = IM GRANULOCYTES %) 0.9 0.0- 1.0 [facility] HospitalNeutrophils # (Auto)2017-07-15 17:01:00* Test Item Value Reference Range Interpretation Comments Neutrophils # (Auto) (test code = 751-8) 9.0 2.1-6.9 H [facility] HospitalLymphocytes # (Auto)2017-07-15 17:01:00* Test Item Value Reference Range Interpretation Comments Lymphocytes # (Auto) (test code = 18965-7) 3.9 1.0-3.2 H [facility] HospitalMonocytes # (Auto)2017-07-15 17:01:00* Test Item Value Reference Range Interpretation Comments Monocytes # (Auto) (test code = 742-7) 1.0 0.2-0.8 H [facility] HospitalEosinophils # (Auto)2017-07-15 17:01:00* Test Item Value Reference Range Interpretation Comments Eosinophils # (Auto) (test code = 711-2) 0.2 0.0-0.4 [facility] HospitalBasophils # (Auto)2017-07-15 17:01:00* Test Item Value Reference Range Interpretation Comments Basophils # (Auto) (test code = 704-7) 0.1 0.0-0.1 [facility] HospitalAbsolute Immature Granulocyte (auto 2017-07-15 17:01:00* Test Item Value Reference Range Interpretation Comments Absolute Immature Granulocyte (auto (romelia t code = Absolute Immature Granulocyte (auto) 0.13 0-0.1 H [facility] HospitalCHEST SINGLE (PORTABLE) [facility] [address] [place] [address] Patient Name: STEPHANIE CAMERON MR #: [id number] : 1960 Age/Sex: 57/F Req #: [id number] Adm Physician: LOLA BOUCHER MD Ordered by: AKBAR MENDEZ NP Report #: [id number] Locat ion: IMCU Room/Bed: [place] [address] Procedure: 5415-8408 D X/CHEST SINGLE (PORTABLE) Exam Date: 02/04/18 [...] TO: AKBAR MENDEZ NP CHEST SINGLE (PORTABLE) [place] [address] Patient Name: STEPHANIE CAMERON MR #: [id number] : 1960 Age/Sex: 57/F Req #: [id number] Adm Physician: Ordered by: AKBAR MENDEZ NP Report #: [id number] Location: ER Room/Bed : Procedure: [id number] DX/CHEST SINGLE (PORTABLE) Ex am Date: 02/03/18 [...] 02/03/18 1137 COPY TO: AKBAR MENDEZ DIRECTOR COMPLIANCE SHOULDER LEFT COMPLETE [place] [address] Patient Name: STEPHANIE CAMERON MR #: [id number] : 1960 Age/Sex: 57/F Req #: [id number] Adm Physician: Ordered by: DIMITRI MCFARLAND Report #: [id number] Location: ER Room/Bed: Procedure: [id number] DX/SHOULDER LEFT COMPLETE Exam Date: 11/06/17 Exam [...] 173 Transcribed By: SCOTT on 11/06/17 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 TO: DIMITRI MCFARLAND CT CERVICAL SPINE WO [place] [address] Patient Name: STEPHANIE CAMERON MR #: [id number] : 1960 Age/Sex: 57/F Req #: [id number] Adm Physician: Ordered by: ISIAH HALE MD Report #: [id number] Location: ER Room/Bed: Procedure: 7380-5011 CT/CT CERVICAL SPINE WO [place] xam Date: [...] TO: ISIAH HALE MD CT BRAIN WO [place] [address] Patient Name: STEPHANIE CAMERON MR #: [id number] : 1960 Age/Sex: 57/F Req #: [id number] Adm Physician: Ordered by: ISIAH HALE MD Report #: [id number] Location: ER Room/Bed: Procedure: [id number] CT/CT BRAIN WO Exam Date: 11/06/17 Exam [...] 1:23 PM Dictated By: ANMOL GARZA MD [facility] Signed By: ANMOL GARZA MD on 11/06/17 1323 Transcribed By: SCOTT awad 11/06/17 1323 COPY TO: ISIAH HALE MD MRI SHOULDER RIGHT WO [facility] [place] [address] Patient Name: STEPHANIE CAMERON MR #: [id number] : 1960 Age/Sex: 57/F Req #: [id number] Adm Physician: Ordered by: CORRIE DEVRIES DO Report #: [id number] Location: MRI Room/Bed: Procedure: [id number] MRI/MRI SHOULDER RIGHT WO Ex am Date: [...] O: CORRIE DEVRIES DO CT BRAIN WO [place] [address] Patient Name: STEPHANIE CAMERON MR #: [id number] : 1960 Age/Sex: 57/F Req #: [id number] Adm Physician: Ordered by: MARYLU VALDOVINOS MD Report #: [id number] Location: ER Room/Bed: Procedure: [id number] CT/CT BRAIN WO Exam Da te: 09/29/17 [...] 09/29/2017 8:36 PM Dictat ed By: DG ZEGN MD 35 COPY TO: Alverto VALDOVINOS MD CHEST SINGLE (PORTABLE) [place] [address] Patient Name: STEPHANIE CAMERON MR #: [id number] : 1960 Age/Sex: 57/F Req #: [id number] Adm Physician: Ordered by: MARYLU VALDOVINOS MD Report #: [id number] Location: ER Room/Bed: Procedure: [id number] DX/CHEST SINGLE (PORTAB LE) Exam Date: 09/29/17 [...] TO: MARYLU VALDOVINOS MD CHEST 2 VIEWS [place] [address] Patient Name: STEPHANIE CAMERON MR #: [id number] : 1960 Age/Sex: 57/F Req #: [id number] Adm Physician: LOLA BOUCHER MD Ordered by: LOLA BOUCHER MD Report #: [id number] Location: [facility] Room/Bed: [facility] Procedure: [id number] DX/CHEST 2 VIEWS Exam Date: 08/18/17 Exam [...] TO: LOLA BOUCHER MD SHOULDER RIGHT COMPLETE [place] [address] Patient Name: STEPHANIE CAMERON MR #: [id number] : 1960 Age/Sex: 57/F Req #: [id number] Adm Physician: LOLA BOUCHER MD Ordered by: LOLA BOUCHER MD Report #: [id number] Location: [facility] Room/Bed: [facility] Procedure: [id number] DX/SHOULDER RIGHT COMPLETE Exam Date: 08/18/17 Exam [...] TO: LOLA BOUCHER MD CHEST 2 VIEWS [place] [address] Patient Name: STEPHANIE CAMERON MR #: [id number] : 1960 Age/Sex: 57/F Req #: [id number] Adm Physician: Ordered by: LUZ SALAS Report #: [id number] Location: ER Room/Bed: Procedure: [id number] DX/CHEST 2 VIEWS Exam Date: 08/16/17 Exam [...] COPY TO: LUZ SALAS CT BRAIN WO [facility] [address] [place] [address] Patient Name: STEPHANIE CAMERON MR #: [id number] : 1960 Age/Sex: 57/F Req #: [id number] Adm Physician: Ordered by: JACIEL BECKER MD Report #: [id number] Location: ER Room/Be d: Procedure: [id number] CT/CT BRAIN WO Exam Date: Exam Time: [...] TO: JACIEL BECKER MD CHEST SINGLE (PORTABLE) [place] [address] Patient Name: STEPHANIE CAMERON MR #: [id number] : 1960 Age/Sex: 57/F Req #: [id number] Adm Physician: Ordered by: JACIEL BECKER MD Report #: [id number] Location: ER Room/Bed: Procedure: [id number] DX/CHEST SINGLE (PORTABLE) E xam Date: 07/22/17 [...] MD 03 Transcribed By: SCOTT on 07/22/172003 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
[2020-06-13] MEDS: ACETAMINOPHEN 325 MG TAB PO PRN (17:52)
[2020-06-13] MEDS ORDERED: HYDROCODONE/APAP 10MG-325MG TAB PO ONE (18:00)
--- NOTE | 2020-06-13 18:20 | NUR ---
Received to rm aaox3 no distress noted, vs stable, respirations even/unlabored, updated on poc voiced understanding, denies pain at this time, r ac 20g no ss of infiltration noted, no other co voiced call light in reach will continue to monitor
--- NOTE | 2020-06-13 19:00 | NUR ---
Resumed care of patient. Patient awake and resting in bed, respirations even and unlabored on room air, sinus tachycardia in 100s per telemetry, no s/s of distress at this time. Bed locked and in lowest position, side rails upx3, alarm on, call light placed within reach. Patient instructed to call for assistance if needed, verbalized understanding. All safety measures in place.
[2020-06-13 19:13] VITALS: BP 129/94
[2020-06-13] MEDS ORDERED: TRAZODONE HCL300 MG PO (19:20)
[2020-06-13] MEDS ORDERED: BUSPIRONE HCL10 MG PO (19:23)
[2020-06-13] MEDS ORDERED: ATORVASTATIN CA40 MG PO (19:23)
[2020-06-13] MEDS ORDERED: DIVALPROEX SOD500 M1 PO (19:33)
[2020-06-13] MEDS ORDERED: BYDUREON B2 MG/0.85 SC (19:33)
[2020-06-13] MEDS ORDERED: VENLAFAXINE HCL75 MG PO (19:33)
[2020-06-13] MEDS ORDERED: TRINTELLIX20 MG PO (19:33)
[2020-06-13] MEDS ORDERED: LANTUS 3ML100 UNITS/ SC (19:33)
[2020-06-13] MEDS ORDERED: MIRTAZAPINE30 MG PO (19:33)
[2020-06-13] MEDS ORDERED: METFORMIN HCL750 MG PO (19:33)
[2020-06-13] MEDS ORDERED: BUTALB-ACETAMI1 EACH PO (19:34)
[2020-06-13] MEDS ORDERED: VENLAFAXINE HC150 MG PO (19:36)
[2020-06-13] MEDS ORDERED: ARIPIPRAZOLE5 MG PO (19:39)
[2020-06-13 20:43] VITALS: BP 110/53
--- NOTE | 2020-06-13 20:48 | NUR ---
Reviewed list of home medications with Dr. Dickson Baeza. Received orders to continue everything except Metformin.
[2020-06-13 21:00] VITALS: BP 110/53
[2020-06-13] MEDS ORDERED: CLONAZEPAM 1 MG TAB PO PRN (21:00)
[2020-06-13] MEDS: INSULIN LISPRO 100 UNIT/1 ML 3ML VIAL SQ SCH ×2 (21:00)
[2020-06-13] MEDS ORDERED: DEXTROSE 50% SYRINGE 50 ML IV PRN ×2 (21:00)
--- NOTE | 2020-06-13 21:00 | NUR ---
2100 meds unavailable at this time d/t pharmacy IT problems.
[2020-06-13 21:26] VITALS: BP 110/53
[2020-06-13] MEDS: BUSPIRONE HCL 10 MG TABLET PO SCH (21:57)
[2020-06-13] MEDS: ACETAMIN/BUTALBITAL/CAFFEINE TAB PO PRN (21:57)
[2020-06-13] MEDS: GABAPENTIN 400 MG CAP PO SCH (21:57)
--- NOTE | 2020-06-13 22:53 | NUR ---
Administered PM doses of Buspar, gabapentin, and Fioricet at 2157. All other 2100 meds unverified and pending at this time. Patient stating that she does not want to take insulin tonight. Fingerstick blood sugar 132. Will recheck in AM per protocol.
[2020-06-14] VITALS (9 sets, daily range): BP systolic 106–154; BP diastolic 59–79
--- NOTE | 2020-06-14 00:22 | NUR ---
Cardiac markers drawn as ordered and sent to lab.
[2020-06-14] MEDS ORDERED: ALLOPURINOL 300 MG TAB PO PRN (00:30)
[2020-06-14] MEDS ORDERED: TRAZODONE HCL 50 MG TAB PO PRN (00:30)
[2020-06-14] MEDS: ACETAMIN/BUTALBITAL/CAFFEINE TAB PO PRN (04:06)
--- NOTE | 2020-06-14 07:04 | NUR ---
Bedside report given to oncoming nurse. Patient awake and resting in bed, respirations even and unlabored on room air, no s/s of distress at this time. All safety measures in place.
[2020-06-14] MEDS: INSULIN LISPRO 100 UNIT/1 ML 3ML VIAL SQ SCH ×6 (07:30→16:30)
[2020-06-14 08:21] LABS: BASOPHILS # (AUTO) 0.1 (0.0-0.1); BASOPHILS % 0.5 % (0.0-1.0); EOSINOPHILS # (AUTO) 0.1 (0.0-0.4); EOSINOPHILS % 0.8 % (0.0-6.0); HEMOGLOBIN 9.8 g/dL (12.0-16.0); LYMPHOCYTES % 30.5 % (18.0-39.1); MEAN CORPUSCULAR HEMOGLOBIN 21.1 pg (28-32); MEAN CORPUSCULAR VOLUME 75.3 fL (81-99); MONOCYTES # (AUTO) 0.5 (0.2-0.8); MONOCYTES % 5.3 % (4.4-11.3); NEUTROPHILS # (AUTO) 6.1 (2.1-6.9); NEUTROPHILS % 62.2 % (38.7-80.0); PLATELET COUNT 371 x10e3/uL (140-360); RED BLOOD COUNT 4.65 x10e6/uL (3.6-5.1); RED CELL DISTRIBUTION WIDTH 23.1 % (11.7-14.4)
[2020-06-14 08:38] LABS: ALANINE AMINOTRANSFERASE 6 IU/L (0-55); ALBUMIN 3.1 g/dL (3.5-5.0); ALBUMIN/GLOBULIN RATIO 0.9 (0.8-2.0); ALKALINE PHOSPHATASE 131 IU/L (40-150); BLOOD UREA NITROGEN 11 mg/dL (7-26); BUN/CREATININE RATIO 13 (6-25); CARBON DIOXIDE 31 mmol/L (22-29); CHLORIDE 94 mmol/L (98-107); CREATININE, SERUM 0.87 mg/dL (0.57-1.11); EST GLOMERULAR FILTRATION RATE > 60 ML/MIN (60-); GLUCOSE 212 mg/dL (74-118); SODIUM 134 mmol/L (136-145)
[2020-06-14] MEDS ORDERED: LISINOPRIL 2.5 MG TAB PO SCH (09:00)
[2020-06-14] MEDS ORDERED: DEPAKOTE ER 500MG TAB(ONCE DAILY) PO SCH (09:00)
[2020-06-14] MEDS ORDERED: MONTELUKAST SODIUM 10 MG TAB PO SCH (09:00)
[2020-06-14] MEDS ORDERED: VENLAFAXINE HCL 75 MG CAPCR PO SCH (09:00)
[2020-06-14] MEDS ORDERED: ARIPIPRAZOLE 5 MG TABLET PO SCH (09:00)
[2020-06-14] MEDS ORDERED: PANTOPRAZOLE SOD 40 MG TABEC PO SCH (09:00)
[2020-06-14] MEDS ORDERED: VORTIOXETINE 20 MG PO SCH (09:00)
[2020-06-14] MEDS ORDERED: CLOPIDOGREL BISULFATE 75 MG TAB PO SCH (09:00)
[2020-06-14 09:01] LABS: CREATINE KINASE MB 0.8 ng/mL (0-5.0)
[2020-06-14] MEDS: BUSPIRONE HCL 10 MG TABLET PO SCH ×2 (09:09→15:00)
[2020-06-14] MEDS: GABAPENTIN 400 MG CAP PO SCH ×2 (09:11→15:00)
[2020-06-14] MEDS ORDERED: KETOROLAC TROMETHAMINE 30 MG/ML VIAL IV NR (12:00)
--- NOTE | 2020-06-14 12:30 | NUR ---
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 Baeza of occurrence no new orders given, " pt states to call Dr. Baeza for IV morphine pain medicine" orders was given to give IV Toradol x 1 dose, vs stable 154/78, 83, 99%, 20, 98.6, blood sugar 198, pt to be discharged once Cardiology clears awaiting cardiology to see pt.
--- NOTE | 2020-06-14 12:34 | NUR ---
this nurse tried calling sister velvet Re: pt's occurrence no answer will try again
--- NOTE | 2020-06-14 13:00 | NUR ---
this nurse tried calling pt's sister velvet re: pt's occurrence no answer will try to call again
--- NOTE | 2020-06-14 17:30 | NUR ---
dr looney at bedside, ok to dc home from cardiology standpoint, pt to follow up with a stopping builder in [place], [place] on tuesday.
[2020-06-14] MEDS: ACETAMINOPHEN 325 MG TAB PO PRN (17:44)
--- NOTE | 2020-06-14 17:46 | NUR ---
spoke with Dr. gonzalez re: cardiology ok to dc from their standpoint, order given to dc home
[2020-06-14] MEDS ORDERED: INSULIN GLARGINE 100 UNITS/ML VIAL SQ SCH (21:00)
[2020-06-14] MEDS ORDERED: ATORVASTATIN 40 MG TAB PO SCH (21:00)
[2020-06-14] MEDS ORDERED: MIRTAZAPINE 15 MG TAB PO SCH (21:00)
== END 2020-06-14 18:30 | disposition home or self-care (01) ==
LOC: ER 15:58 → ERHOLD 16:45 → MED/SURG2 18:25 → MED/SURG 18:30
DX: E11.649 Type 2 diabetes mellitus with hypoglycemia without coma (principal); Z79.4 Long term (current) use of insulin; I10 Essential (primary) hypertension; I25.10 Atherosclerotic heart disease of native coronary artery without angina pectoris; I11.0 Hypertensive heart disease with heart failure; I50.9 Heart failure, unspecified; Z11.59 Encounter for screening for other viral diseases
CPT/HCPCS: 36415 ×2; 70450; 71250; 72125; 72192; 80053 ×2; 81001; 82550 ×2; 82553 ×2; 82948; 84484 ×2; 85025 ×2; 93005; 99285; G0378 ×2; J1885; J7799; S0164; U0002; J1815

== ENCOUNTER 2020-12-24 20:28 | Emergency (ER) | payer MEDICARE, OTHER ==
[~2020-12-24] VITALS: Ht 162.6 cm; Wt 108.4 kg
[~2020-12-24 20:28] MED LIST changes: +ARIPIPRAZOLE5 MG PO; +ATORVASTATIN CA40 MG PO; +BUSPIRONE HCL10 MG PO; +BUTALB-ACETAMI1 EACH PO; +BYDUREON B2 MG/0.85 SC; +DIVALPROEX SOD500 M1 PO; +LANTUS 3ML100 UNITS/ SC; +METFORMIN HCL750 MG PO; +MIRTAZAPINE30 MG PO; +TRAZODONE HCL300 MG PO; +TRINTELLIX20 MG PO; +VENLAFAXINE HC150 MG PO; +VENLAFAXINE HCL75 MG PO
[2020-12-24] MEDS ORDERED: GLUCAGON FOR INJ 1 MG VIAL IV ONE (20:45)
[2020-12-24] MEDS ORDERED: ASPIRIN 81 MG CHEW TAB PO ONE (20:45)
[2020-12-24 21:20] LABS: BASOPHILS # (AUTO) 0.1 (0.0-0.1); BASOPHILS % 0.5 % (0.0-1.0); EOSINOPHILS % 0.2 % (0.0-6.0); HEMATOCRIT 36.7 % (34.2-44.1); HEMOGLOBIN 11.2 g/dL (12.0-16.0); LYMPHOCYTES # (AUTO) 1.7 (1.0-3.2); LYMPHOCYTES % 11.9 % (18.0-39.1); MEAN CORPUSCULAR HEMOGLOBIN 25.7 pg (28-32); MEAN CORPUSCULAR HGB CONC 30.5 g/dL (31-35); MEAN CORPUSCULAR VOLUME 84.2 fL (81-99); MONOCYTES # (AUTO) 0.7 (0.2-0.8); MONOCYTES % 5.1 % (4.4-11.3); NEUTROPHILS # (AUTO) 11.5 (2.1-6.9); NEUTROPHILS % 81.4 % (38.7-80.0); PLATELET COUNT 285 x10e3/uL (140-360); RED BLOOD COUNT 4.36 x10e6/uL (3.6-5.1)
[2020-12-24 21:38] LABS: ALANINE AMINOTRANSFERASE 11 IU/L (0-55); ALBUMIN 3.4 g/dL (3.5-5.0); ALKALINE PHOSPHATASE 82 IU/L (40-150); BLOOD UREA NITROGEN 18 mg/dL (7-26); BUN/CREATININE RATIO 19 (6-25); CARBON DIOXIDE 21 mmol/L (22-29); CHLORIDE 98 mmol/L (98-107); CREATINE KINASE 68 IU/L (29-168); CREATININE, SERUM 0.97 mg/dL (0.57-1.11); EST GLOMERULAR FILTRATION RATE 59 ML/MIN (60-); GLUCOSE 193 mg/dL (74-118); SODIUM 133 mmol/L (136-145)
[2020-12-24 21:39] LABS: CREATINE KINASE MB < 1.00 ng/mL (0-4.3)
[2020-12-25 00:29] VITALS: BP 118/76
== END 2020-12-25 00:30 | disposition home or self-care (01) ==
LOC: ER 20:40
DX: E11.649 Type 2 diabetes mellitus with hypoglycemia without coma (principal); I10 Essential (primary) hypertension; J44.9 Chronic obstructive pulmonary disease, unspecified; I50.9 Heart failure, unspecified; J45.909 Unspecified asthma, uncomplicated; F41.9 Anxiety disorder, unspecified; K21.9 Gastro-esophageal reflux disease without esophagitis; E78.5 Hyperlipidemia, unspecified; F43.10 Post-traumatic stress disorder, unspecified; M54.9 Dorsalgia, unspecified; G89.29 Other chronic pain; Z95.5 Presence of coronary angioplasty implant and graft
CPT/HCPCS: 36415; 80053; 80320; 82550; 82553; 82948; 84484; 85025; 99283